=== PATIENT | male | born 1935 | race Caucasian/White ===

== ENCOUNTER → 2016-05-30 | Outpatient (CLI) | payer OTHER, MEDICARE ==
[~2016-05-30] MED LIST: ACET500C6 PO; ASCA500 PO; ASCO100061 PO; ASPI81TA28 PO; BMX1 PO; BUME1TAB PO; CALC600T9 PO; CLON0.5T3 PO; DIPH1TAB PO; DIPH25CA PO; DOCU-94 PO; FRS/40 PO; GADAVIST IV PRN; INSUINJ8 SQ; KETO0.5S33 OPR; LEVO75TA36 PO; LEVO75TA5 PO; LOSA1TAB PO; LUTE20TA PO; METO50TA16 PO; MULT-506 PO; NVLNI SQ; PANT40TA PO; POTA10CA28 PO; POTA20TA16 PO; SIMV40TA2 PO; SIMV80TA2 PO; SPR25 PO; SPRIN/30 INH; SYMIN160 INH; VNTHFA/IN INH
--- NOTE | 2016-05-30 14:05 | DIAGNOSTIC IMAGING REPORT ---
ULTRASOUND OF THE CAROTID ARTERIES CLINICAL HISTORY: Blurry vision. Disequilibrium. COMPARISON STUDY: No priors. TECHNIQUE: Real-time, grayscale, and color Doppler sonography of the carotid arteries is performed. Images are reviewed in the transverse and longitudinal planes. FINDINGS: Blood pressure in the right arm measures 153/71 and blood pressure in the left arm measures 148/70. The carotid arteries are patent bilaterally and demonstrate antegrade flow. There is mild to moderate echogenic shadowing atherosclerotic plaque seen in the carotid bulbs bilaterally, left greater than right. Normal doppler arterial waveforms are seen throughout. Velocity measurements are listed below. Common carotid peak systolic velocity (cm/sec): RIGHT: 87 LEFT: 68 ICA proximal peak systolic velocity (cm/sec): RIGHT: 98 LEFT: 159 ICA mid peak systolic velocity (cm/sec): RIGHT: 74 LEFT: 83 ICA distal peak systolic velocity (cm/sec): RIGHT: 61 LEFT: 88 ICA/CC peak systolic ratio: RIGHT: 1.1 LEFT: 2.3 Antegrade flow was shown in the vertebral arteries. The external carotid arteries are patent. IMPRESSION: 1. 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 2. There is no sonographic evidence of hemodynamically significant stenosis in the right carotid arterial system. 3. Antegrade flow is shown in the vertebral arteries. Electronically signed by: Antonio Benjamin M.D. 05/30/2016 2:03 PM
--- NOTE | 2016-05-30 15:21 | DIAGNOSTIC IMAGING REPORT ---
MRI OF THE BRAIN WITHOUT AND WITH IV CONTRAST CLINICAL HISTORY: Blurred vision. Dysequilibrium. COMPARISON STUDY: Head CT December 04, 2013. TECHNIQUE: Utilizing a 1.5 Lelo magnet and dedicated coil, multiplanar, multiecho imaging of the brain was performed pre and postcontrast administration. IV administration of 10 mL of Gadavist contrast was uneventful. FINDINGS: There are no areas of restricted diffusion. This exam is mildly compromised by artifact although is diagnostic. No acute intracranial hemorrhage, midline shift or mass effect is present. Ventricular system is stable. The basilar cisterns are patent. There are no extra axial collections. Flow-voids for the major intracranial vessels are present. There are no intracranial masses or areas of pathologic enhancement. Calvarial signal is maintained. Mild white matter T2 hyperintensity suggests small vessel disease. The orbits and sinuses are unremarkable. IMPRESSION: 1. No acute intracranial findings. 2. No intracranial masses or pathologic enhancement. 3. Study mildly compromised by artifact. 4. Mild small vessel disease. Electronically signed by: Colin Cannon M.D. 05/30/2016 3:19 PM
== END | disposition home or self-care (01) ==
LOC: C.ULTR 12:57
PROVIDERS: ATTEND Internal Medicine
DX: H53.8 Other visual disturbances (principal); R42 Dizziness and giddiness; I65.22 Occlusion and stenosis of left carotid artery

== ENCOUNTER → 2016-09-12 | Day surgery (SDC) | payer OTHER, MEDICARE ==
[2016-09-02 07:56] VITALS: Ht 172.7 cm; Wt 100.0 kg
[~2016-09-12] VITALS: Ht 172.7 cm; Wt 100.0 kg
[~2016-09-12] MED LIST changes: -ACET500C6 PO; +ACETAMINOPHEN 325 MG TAB PO PRN; +AMVISC PLUS 0.8ML SYRINGE INT OCU ONE; +ATROPINE SULFATE 0.1 MG/ML 5ML SYR IV PRN; +BRIMONIDINE TART 0.2% OP SOLN PER DROP CHARGE ONE; +BSS FLUSH ONE; +DEXTROSE 50% 50 ML SYR IV ONE; +DEXTROSE 50% 50 ML SYR ONE; -DIPH1TAB PO; +DIPH1TAB87 PO; -DIPH25CA PO; +ENDOCOAT 0.85ML SYRINGE INT OCU ONE; +EpHEDrine SULFATE INJ 50 MG/ML AMP IV PRN; +EpINEphrine INJ 1MG/ML AMP 1 MG/ML AMP ONE; -FRS/40 PO; -GADAVIST IV PRN; +LACTATED RINGER'S 1000ML 500 ML IV SCH; -LEVO75TA36 PO; +LIDOCAINE 4% OP SOLN DROP CHARGE ONE; +LIDOCAINE 4% OP SOLN DROP CHARGE OPR SCH; +LIDOCAINE HCL 1% MPF 2 ML VIAL ONE; +MIDAZOLAM HCL 1 MG/ML 2ML VIAL ONE; +MOXIFLOXACIN OPH SOLN PER DROP CHARGE ONE; +ONDANSETRON INJ 2 MG/ML 2 ML VIAL IV PRN; -POTA10CA28 PO; +POVIDONE-IODINE OP SOLN 30 ML BTL ONE; +PROPARACAINE 0.5% OP SOLN PER DROP CHARGE OPR SCH; -SIMV80TA2 PO; +TOBRAMYCIN/DEXAMETHASONE OPH OINT PER APPLN CHARGE ONE; +VISCOAT 0.5ML SYRINGE INT OCU ONE
[2016-09-12] MEDS: PHENYLEPHRINE HCL 2.5% OP SOLN PER DROP CHARGE OPR SCH ×2 (06:31→06:36)
[2016-09-12] MEDS: TROPICAMIDE 1% OP SOLN PER DROP CHARGE OPR SCH ×2 (06:32→06:37)
[2016-09-12] MEDS: CYCLOPENTOLATE HCL 1% OP SOLN PER DROP CHARGE OPR SCH ×2 (06:33→06:38)
[2016-09-12] MEDS: KETOROLAC 0.5% OP SOLN PER DROP CHARGE OPR SCH ×2 (06:34→06:39)
[2016-09-12] MEDS: MOXIFLOXACIN OPH SOLN PER DROP CHARGE OPR SCH ×2 (06:35→06:44)
--- NOTE | 2016-09-12 06:55 | History & Physical Bridge - SC ---
H&P Re-Evaluation Bridge Note: I have examined the patient, reviewed the History & Physical and in the interval since the performance of the History & Physical I have noted the following changes of clinical significance: No changes noted
[2016-09-12 07:27] VITALS: TEMP 36.3
--- NOTE | 2016-09-12 07:27 | Discharge Instructions-SurgCtr ---
Discharge Instructions Date of Service Sep 12, 2016. Visit Reason for Visit: Cataract Right Eye Discharge Discharge Diagnosis / Problem: cataract right eye Discharge Goals Goal(s): Improve function Activity Recommendations Activity Limitations: per Instructions/Follow-up section Lifting Limitations: no more than 5 pounds Anesthesia . Post Anesthesia Instructions: If you have had General Anesthesia or IV Sedation: * Do not drive today. * Resume driving when surgeon permits. * Do not make important decisions or sign legal documents today. * Call surgeon for: 1. Temperature elevations greater than 101 degrees F. 2. Uncontrollable pain. 3. Excessive bleeding. 4. Persistent nausea and vomiting. 5. Medication intolerance (nausea, vomiting or rash). * For nausea and vomiting use only clear liquids such as: tea, soda, bouillon until nausea subsides, then gradually increase diet as tolerated. * If you have any concerns or questions, call your surgeon's office. If physician is unavailable and it is an emergency, call 911 or go to the nearest emergency room. . Instructions / Follow-Up Instructions / Follow-Up ACTIVITY RECOMMENDATIONS: * Light activities * You may walk outside, read, watch television. * Mild irritation and blurred vision are common for the first few days, redness around the white part of the eye is common. MEDICATIONS: Resume previous medications unless instructed otherwise by your surgeon. Eye drops (today and tomorrow): Vigamox - one drop in operative eye every 2 hours while awake Prednisolone 1% - one drop in operative eye every 2 hours while awake Ketorolac - one drop in operative eye every 2 hours while awake SPECIAL CARE INSTRUCTIONS: * If any problems or concerns, please call Dr. Sparks's office at . * Keep plastic shield taped over eye to sleep at night. * Keep plastic shield taped over eye except to administer eye drops. * Keep plastic shield on until office visit the following day. FOLLOW UP VISIT: Follow-up with Dr. Sparks in the [place] office as scheduled. If not already scheduled, please call the office at . Diet Recommendations Home Diet: resume previous diet Procedures Procedures Performed: Right Cataract Phacoemulsification With Intraocular Lens Implant Pending Studies Studies pending at discharge: no Medical Emergencies . Who to Call and When: Medical Emergencies: If at any time you feel your situation is an emergency, please call 911 immediately. . Non-Emergent Contact Non-Emergency issues call your: Photo Studio Assistant . . "Provider Documentation" section prepared by Timmy Sparks.
--- NOTE | 2016-09-12 07:27 | [facility] Post Operative Brief Note ---
Immediate Operative Summary Operative Date Sep 12, 2016. Pre-Operative Diagnosis Cataract right eye Post-Operative Diagnosis same Procedure(s) Performed Right Cataract Phacoemulsification With Intraocular Lens Implant Surgeon Dr Sparks Roving Sizer Surgeon(s) 0 Estimated Blood Loss 0 Findings cataract right eye Specimens 0 Complication(s) None Disposition Recovery Room / PACU
[2016-09-12 08:00] VITALS: BP 151/77; PULSE 45; O2SAT 96
--- NOTE | 2016-09-12 08:03 | Anesthesia Progress Nt - [facility] ---
Anesthesia Post Op Note Date & Time Sep 12, 2016 at 08:02 Vital Signs Pain Intensity: 0 Vital Signs Past 12 Hours Date Time Temp Pulse Resp B/P Pulse Ox O2 Delivery O2 Flow Rate FiO2 09/12/16 08:00 45 20 151/77 96 Room Air 09/12/16 07:27 36.3 51 16 185/71 96 Room Air 09/12/16 06:30 36.4 50 18 179/58 96 Room Air Notes Mental Status: alert / awake / arousable, participated in evaluation Pt Amnestic to Procedure: Yes Nausea / Vomiting: adequately controlled Pain: adequately controlled Airway Patency, RR, SpO2: stable & adequate BP & HR: stable & adequate Hydration State: stable & adequate Anesthetic Complications: no major complications apparent
--- NOTE | 2016-09-12 08:59 | OPERATIVE REPORT ---
DATE OF OPERATION: 09/12/2016 PREOPERATIVE DIAGNOSIS: Cataract, right eye. POSTOPERATIVE DIAGNOSIS: Cataract, right eye. PROCEDURE: Phacoemulsification cataract extraction with intraocular lens placement, right eye. SURGEON: Dr. Sparks. COMPLICATIONS: None. ESTIMATED BLOOD LOSS: None. ANESTHESIA: Topical with sedation. DESCRIPTION OF PROCEDURE: After informed consent was obtained in the holding area the patient was wheeled back to the Operating Room where cardiac monitoring leads and oxygen by nasal cannula was administered by Anesthesia. Gentle IV sedation was given, and the patient's right eye was prepped and draped in usual sterile fashion. A wire lid speculum was placed into the right eye and the operating microscope was swung into position. Using 0.12 forceps and a Supersharp blade a paracentesis port was made 3 o'clock hours away from the 9 o'clock position of patient's right eye. 1% non-preserved Lidocaine was then injected into the anterior chamber for anesthesia. A 2.2 mm keratotome blade was then used to make a shelved clear corneal incision at the 9 o'clock position of his right eye. Amvisc was injected into the anterior chamber and a cystotome and Utrata forceps were used to perform a curvilinear capsulorrhexis. BSS on a hydrodissection cannula was used to hydrodissect the lens nucleus away from the capsular bag. The phacoemulsification handpiece was then used in a stop and chop fashion to remove the lens nucleus. The irrigation and aspiration handpiece was then used to remove the residual cortical material. Amvisc was injected into the capsular bag and anterior chamber and a Bausch \T\ Lomb MX60 21.5 Diopter intraocular lens was injected into the capsular bag. Irrigation and aspiration handpiece was used to remove the residual viscoelastic material. The wounds were hydrated and noted to be watertight. The wire lid speculum was removed from the eye. Vigamox, Brimonidine, and TobraDex ointment were placed on the eye and it was shielded. It should be noted that EndoCoat was used during the case to protect the cornea endothelium. DISPOSITION: The patient tolerated the procedure well and was wheeled to the post anesthesia care unit in stable condition. I attest to the content of the Intraoperative Record and any orders documented therein. Any exceptions are noted below. I attest to the content of the Intraoperative Record and any orders documented therein. Any exceptio ns are noted below.
== END | disposition home or self-care (01) ==
LOC: X.SURG 06:05
PROVIDERS: ATTEND Ophthalmology
DX: H26.9 Unspecified cataract (principal); I10 Essential (primary) hypertension; E11.9 Type 2 diabetes mellitus without complications; J45.909 Unspecified asthma, uncomplicated; Z68.34 Body mass index [BMI] 34.0-34.9, adult; Z95.1 Presence of aortocoronary bypass graft; I25.10 Atherosclerotic heart disease of native coronary artery without angina pectoris; Z96.659 Presence of unspecified artificial knee joint; Z90.89 Acquired absence of other organs; Z87.891 Personal history of nicotine dependence; I48.91 Unspecified atrial fibrillation; Z79.4 Long term (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

== ENCOUNTER → 2016-10-10 | Day surgery (SDC) | payer OTHER, MEDICARE ==
[2016-09-27 13:48] VITALS: Ht 172.7 cm; Wt 100.0 kg
[~2016-10-10] VITALS: Ht 172.7 cm; Wt 100.0 kg
[~2016-10-10] MED LIST changes: +500ML BSS 0.3ML EPI 1:1000PF IRRIG ONE; -DEXTROSE 50% 50 ML SYR IV ONE; -DEXTROSE 50% 50 ML SYR ONE; -EpHEDrine SULFATE INJ 50 MG/ML AMP IV PRN; +LIDOCAINE 4% OP SOLN DROP CHARGE OPL SCH; -LIDOCAINE 4% OP SOLN DROP CHARGE OPR SCH; -ONDANSETRON INJ 2 MG/ML 2 ML VIAL IV PRN; +PROPARACAINE 0.5% OP SOLN PER DROP CHARGE OPL SCH; -PROPARACAINE 0.5% OP SOLN PER DROP CHARGE OPR SCH; -VISCOAT 0.5ML SYRINGE INT OCU ONE
[2016-10-10] MEDS: PHENYLEPHRINE HCL 2.5% OP SOLN PER DROP CHARGE OPL SCH ×2 (08:46→08:53)
[2016-10-10] MEDS: TROPICAMIDE 1% OP SOLN PER DROP CHARGE OPL SCH ×2 (08:47→08:54)
[2016-10-10] MEDS: CYCLOPENTOLATE HCL 1% OP SOLN PER DROP CHARGE OPL SCH ×2 (08:48→08:55)
[2016-10-10] MEDS: KETOROLAC 0.5% OP SOLN PER DROP CHARGE OPL SCH ×2 (08:49→08:56)
[2016-10-10] MEDS: MOXIFLOXACIN OPH SOLN PER DROP CHARGE OPL SCH ×2 (08:51→09:04)
--- NOTE | 2016-10-10 10:06 | Discharge Instructions-SurgCtr ---
Discharge Instructions Date of Service October 10, 2016. Visit Reason for Visit: Cataract Left Eye Discharge Discharge Diagnosis / Problem: cataract left eye Discharge Goals Goal(s): Improve function Activity Recommendations Activity Limitations: per Instructions/Follow-up section Lifting Limitations: no more than 5 pounds Anesthesia . Post Anesthesia Instructions: If you have had General Anesthesia or IV Sedation: * Do not drive today. * Resume driving when surgeon permits. * Do not make important decisions or sign legal documents today. * Call surgeon for: 1. Temperature elevations greater than 101 degrees F. 2. Uncontrollable pain. 3. Excessive bleeding. 4. Persistent nausea and vomiting. 5. Medication intolerance (nausea, vomiting or rash). * For nausea and vomiting use only clear liquids such as: tea, soda, bouillon until nausea subsides, then gradually increase diet as tolerated. * If you have any concerns or questions, call your surgeon's office. If physician is unavailable and it is an emergency, call 911 or go to the nearest emergency room. . Instructions / Follow-Up Instructions / Follow-Up ACTIVITY RECOMMENDATIONS: * Light activities * You may walk outside, read, watch television. * Mild irritation and blurred vision are common for the first few days, redness around the white part of the eye is common. MEDICATIONS: Resume previous medications unless instructed otherwise by your surgeon. Eye drops (today and tomorrow): Vigamox - one drop in operative eye every 2 hours while awake Prednisolone 1% - one drop in operative eye every 2 hours while awake Artificial Tears - one drop operative eye 6 times daily SPECIAL CARE INSTRUCTIONS: * If any problems or concerns, please call Dr. Sparks's office at . * Keep plastic shield taped over eye to sleep at night. * Keep plastic shield taped over eye except to administer eye drops. * Keep plastic shield on until office visit the following day. FOLLOW UP VISIT: Follow-up with Dr. Sparks in the [place] office as scheduled. If not already scheduled, please call the office at . Diet Recommendations Home Diet: resume previous diet Procedures Procedures Performed: Left Cataract Phacoemulsification With Intraocular Lens Implant Pending Studies Studies pending at discharge: no Medical Emergencies . Who to Call and When: Medical Emergencies: If at any time you feel your situation is an emergency, please call 911 immediately. . Non-Emergent Contact Non-Emergency issues call your: Compliance Review Officer . . "Provider Documentation" section prepared by Timmy Sparks. .
--- NOTE | 2016-10-10 10:07 | [facility] Post Operative Brief Note ---
Immediate Operative Summary Operative Date October 10, 2016. Pre-Operative Diagnosis Left Eye Cataract Post-Operative Diagnosis Same Procedure(s) Performed Left Cataract Phacoemulsification With Intraocular Lens Implant Surgeon Dr Sparks Pharmacy Service Associate Surgeon(s) None Estimated Blood Loss 0ml Findings cataract left eye Specimens None Complication(s) None Disposition Recovery Room / PACU
--- NOTE | 2016-10-10 10:21 | OPERATIVE REPORT ---
DATE OF OPERATION: 10/10/2016 PREOPERATIVE DIAGNOSIS: Cataract, left eye. POSTOPERATIVE DIAGNOSIS: Cataract, left eye. PROCEDURE: Phacoemulsification cataract extraction with intraocular lens placement, left eye. SURGEON: Dr. Sparks. COMPLICATIONS: None. ESTIMATED BLOOD LOSS: None. ANESTHESIA: Topical with sedation. OPERATION AND FINDINGS: After informed consent was obtained in the holding area the patient was wheeled back to the Operating Room where cardiac monitoring leads and oxygen by nasal cannula was administered by Anesthesia. Gentle IV sedation was given, and the patient's left eye was prepped and draped in usual sterile fashion. A wire lid speculum was placed into the left eye and the operating microscope was swung into position. Using 0.12 forceps and a Supersharp blade a paracentesis port was made 3 o'clock hours away from the 3 o'clock position of patient's left eye. 1% non-preserved Lidocaine was then injected into the anterior chamber for anesthesia. A 2.2 mm keratotome blade was then used to make a shelved clear corneal incision at the 3 o'clock position of his left eye. Amvisc was injected into the anterior chamber and a cystotome and Utrata forceps were used to perform a curvilinear capsulorrhexis. BSS on a hydrodissection cannula was used to hydrodissect the lens nucleus away from the capsular bag. The phacoemulsification handpiece was then used in a stop and chop fashion to remove the lens nucleus. The irrigation and aspiration handpiece was then used to remove the residual cortical material. Amvisc was injected into the capsular bag and anterior chamber and a Bausch \T\ Lomb MX60, 23.0 Diopter intraocular lens was injected into the capsular bag. Irrigation and aspiration handpiece was used to remove the residual viscoelastic material. The wounds were hydrated and noted to be watertight. The wire lid speculum was removed from the eye. Vigamox, Brimonidine, and TobraDex ointment were placed on the eye and it was shielded. It should be noted that EndoCoat was used throughout the case to protect the cornea endothelium. DISPOSITION: The patient tolerated the procedure well and was wheeled to the post anesthesia care unit in stable condition. I attest to the content of the Intraoperative Record and any orders documented therein. Any exceptions are noted below. I attest to the content of the Intraoperative Record and any orders documented therein. Any exceptio ns are noted below.
--- NOTE | 2016-10-10 10:22 | Anesthesia Progress Nt - [facility] ---
Anesthesia Post Op Note Date & Time October 10, 2016 at 10:22 Vital Signs Pain Intensity: 0 Vital Signs Past 12 Hours Date Time Temp Pulse Resp B/P Pulse Ox O2 Delivery O2 Flow Rate FiO2 10/10/16 10:06 36.0 48 16 173/78 99 Room Air 10/10/16 08:34 36.5 47 20 182/82 98 Room Air Notes Mental Status: alert / awake / arousable, participated in evaluation Pt Amnestic to Procedure: Yes Nausea / Vomiting: adequately controlled Pain: adequately controlled Airway Patency, RR, SpO2: stable & adequate BP & HR: stable & adequate Hydration State: stable & adequate Anesthetic Complications: no major complications apparent
[2016-10-10 10:30] VITALS: BP 182/67; PULSE 44; TEMP 36.4; O2SAT 98
== END | disposition home or self-care (01) ==
LOC: X.SURG 08:04
PROVIDERS: ATTEND Ophthalmology
DX: H25.12 Age-related nuclear cataract, left eye (principal); H35.3220 Exudative age-related macular degeneration, left eye, stage unspecified; I10 Essential (primary) hypertension; E10.9 Type 1 diabetes mellitus without complications; Z96.659 Presence of unspecified artificial knee joint; Z95.1 Presence of aortocoronary bypass graft; Z90.49 Acquired absence of other specified parts of digestive tract; Z79.82 Long term (current) use of aspirin

== ENCOUNTER 2016-11-22 19:24 | Emergency (ER) | payer OTHER, MEDICARE ==
[~2016-11-22] VITALS: Ht 172.7 cm; Wt 99.6 kg
[~2016-11-22 19:24] MED LIST changes: -500ML BSS 0.3ML EPI 1:1000PF IRRIG ONE; -ACETAMINOPHEN 325 MG TAB PO PRN; -AMVISC PLUS 0.8ML SYRINGE INT OCU ONE; -ASCO100061 PO; -ATROPINE SULFATE 0.1 MG/ML 5ML SYR IV PRN; -BMX1 PO; -BRIMONIDINE TART 0.2% OP SOLN PER DROP CHARGE ONE; -BSS FLUSH ONE; -ENDOCOAT 0.85ML SYRINGE INT OCU ONE; -EpINEphrine INJ 1MG/ML AMP 1 MG/ML AMP ONE; -LACTATED RINGER'S 1000ML 500 ML IV SCH; -LIDOCAINE 4% OP SOLN DROP CHARGE ONE; -LIDOCAINE 4% OP SOLN DROP CHARGE OPL SCH; -LIDOCAINE HCL 1% MPF 2 ML VIAL ONE; -LOSA1TAB PO; -MIDAZOLAM HCL 1 MG/ML 2ML VIAL ONE; -MOXIFLOXACIN OPH SOLN PER DROP CHARGE ONE; -NVLNI SQ; -POVIDONE-IODINE OP SOLN 30 ML BTL ONE; -PROPARACAINE 0.5% OP SOLN PER DROP CHARGE OPL SCH; -SPR25 PO; -TOBRAMYCIN/DEXAMETHASONE OPH OINT PER APPLN CHARGE ONE
[2016-11-22 19:32] VITALS: TEMP 36.5; Ht 172.7 cm; Wt 99.6 kg
[2016-11-22] MEDS ORDERED: FUROSEMIDE 40 MG/4 ML VIAL IV STA (20:10)
[2016-11-22 20:15] LABS: BASO % 0.6 %; BASO ABS # 0.04 K/uL (0-0.2); COMPLETE YES; EOS % 3.4 %; HEMATOCRIT 37.5 % (42-52); IG% 0.6 %; LYMPH % 29.9 %; LYMPH ABS # 1.87 K/uL (1.2-3.4); MEAN CELL VOLUME 89.9 fL (80-100); MEAN CORPUSCULAR HEMOGLOBIN 31.2 pg (25-34); MEAN CORPUSCULAR HGB CONC 34.7 g/dl (32-36); MEAN PLATELET VOLUME 9.5 fL (7.4-10.4); MONO % 6.9 %; NEUT % 58.6 %; PLATELET COUNT 128 K/uL (130-400); RED BLOOD COUNT 4.17 M/uL (4.7-6.1); WHITE BLOOD COUNT 6.25 K/uL (4.8-10.8)
--- NOTE | 2016-11-22 20:27 | DIAGNOSTIC IMAGING REPORT ---
CHEST ONE VIEW PORTABLE CLINICAL HISTORY: Evaluate Fever/Sepsis dyspnea COMPARISON STUDY: 10/07/2015 FINDINGS: Prior median sternotomy. Heart top normal in size. Lungs are clear. Diaphragms smooth. IMPRESSION: No acute process. Electronically signed by: Jared Bhardwaj M.D. 11/22/2016 8:26 PM Dictated Date/Time: 11/22/2016 8:26 PM
[2016-11-22 20:33] LABS: ALT/SGPT 25 U/L (12-78); AST/SGOT 19 U/L (15-37); BLOOD UREA NITROGEN 16 mg/dl (7-18); BUN/CREATININE RATIO 11.9 (10-20); CALCIUM 8.7 mg/dl (8.5-10.1); CARBON DIOXIDE 25 mmol/L (21-32); CHLORIDE 108 mmol/L (98-107); GLUCOSE 182 mg/dl (70-99); SODIUM 141 mmol/L (136-145)
[2016-11-22 20:41] LABS: ALKALINE PHOSPHATASE 67 U/L (45-117)
[2016-11-22 20:43] LABS: PARTIAL THROMBOPLASTIN RATIO 0.9; PROTHROMBIN TIME (PATIENT) 10.7 SECONDS (9.0-12.0)
[2016-11-22] MEDS ORDERED: ASCO100061 PO (20:58)
[2016-11-22] MEDS ORDERED: NVLNI SQ ×2 (20:58)
[2016-11-22] MEDS ORDERED: HydrALAZINE HCL 20 MG/ML VIAL IV. STA (21:45)
--- NOTE | 2016-11-22 22:24 | EMERGENCY ROOM VISIT NOTE ---
History Report prepared by Ryan: Jose Keller Under the Supervision of: Dr. Je Diaz D.O. First contact with patient: 19:44 Chief Complaint: HYPERTENSION Stated Complaint: ELEVATED BP, FLUCUATING, SOB History of Present Illness The patient is a 81 year old male who presents to the Emergency Room with complaints of hypertension that occurred 2 hours ago. At this time, the patient was feeling short of breath, dizzy, and tired. His came home from work and took his blood pressure. At 1800, it was 186/45. 20 minutes later, it was 195/ 73. 20 minutes after that, it was 175/70. They decided to come to the ER after this. The patient has an extensive past medical history. It includes multiple angioplasty procedures, a triple bypass surgery, and respiratory issues. Over the past couple of years, he has short of breath with exertion. He has had prior clots as well, that the states the symptoms are similar to those today. They note that he gained 15 pounds this year and there is left lower extremity edema as well. He denies any chest pain. Source of History: patient Onset: 2 hours ago Position: other (Global) Symptom Intensity: 195/73 Quality: other (HTN) Timing: waxes/wanes Modifying Factors (Worsening): exertion Associated Symptoms: + SOB, + fatigue, No chest pain Note: He is experiencing dizziness as well. Review of Systems See HPI for pertinent positives & negatives. A total of 10 systems reviewed and were otherwise negative. 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 Family History Heart disease Social History Smoking Status: Never Smoker Smokeless Tobacco Use: No Alcohol Use: none Marital Status: Housing Status: lives with significant other Occupation Status: retired Current/Historical Medications Scheduled Ascorbic Acid (Ascorbic Acid), 1,000 MG PO BID Aspirin (Aspirin Ec), 81 MG PO BID Budesonide/Formoterol Fumarate (Symbicort 160/4.5 Inhaler ), 2 PUFFS INH BID Bumetanide (Bumex), 2 MG PO HS Bumetanide (Bumex), 1 MG PO QAM Calcium Carbonate-Vitamin D (Calcium + D), 600 UNITS PO BID Clonazepam (Klonopin), 0.5 MG PO QAM Clonazepam (Klonopin), 2 TABS PO HS Diphenhydramine Hcl (Benadryl Allergy), 2 CAP PO BID Docusate Sodium (Colace), 2 CAP PO BID Insulin Human NPH (Novolin N), 55 UNITS SQ QAM Insulin Human NPH (Novolin N), 50 UNITS SQ QPM Levothyroxine Sodium (Levothyroxine Sodium), 1 TAB PO QAM Lutein (Lutein), 1 TAB PO QAM Metoprolol Tartrate (Lopressor) (Lopressor), 75 MG PO BID Multivitamin (Multivitamin), 1 TAB PO QAM Pantoprazole (Protonix), 40 MG PO QAM Potassium Ext Rel (Klor-Con), 20 MEQ PO HS Potassium Ext Rel (Klor-Con), 10 MEQ PO QAM Simvastatin (Zocor), 0.5 TAB PO HS Tiotropium [place] (Spiriva Handihaler), 1 CAP INH QAM Scheduled PRN Albuterol Hfa (Ventolin Hfa), 2-4 PUFFS INH Q6H PRN for Shortness of Breath Allergies Coded Allergies: Ropinirole (Verified Adverse Reaction, Intermediate, CHANGE IN MENTAL STATUS, 11/22/16) Physical Exam Vital Signs Date Time Temp Pulse Resp B/P (MAP) Pulse Ox O2 Delivery O2 Flow Rate FiO2 11/22/16 22:04 46 20 181/75 96 Room Air 11/22/16 21:31 48 18 200/73 96 Room Air 11/22/16 20:57 44 20 164/91 96 Room Air 11/22/16 20:46 47 11/22/16 20:08 Room Air 11/22/16 20:07 54 18 229/82 96 Room Air 11/22/16 19:32 36.5 51 20 189/70 97 Room Air Physical Exam CONSTITUTIONAL/VITAL SIGNS: Reviewed / noted above. GENERAL: Non-toxic in appearance. INTEGUMENTARY: Warm, dry, and Berger. HEAD: Normocephalic. EYES: without scleral icterus or trauma. ENT/OROPHARYNX: clear and moist. LYMPHADENOPATHY/NECK: Is supple without lymphadenopathy or meningismus. RESPIRATORY: Lungs clear and equal. CARDIOVASCULAR: Regular rate and rhythm. GI/ABDOMEN: Soft and nontender. No organomegaly or pulsatile mass. No rebound or guarding. Normal bowel sounds. EXTREMITIES: Bilateral pedal edema. BACK: No CVA tenderness. NEUROLOGICAL: Intact without focal deficits. PSYCHIATRIC: normal affect. MUSCULOSKELETAL: Normally developed with good muscle tone. Medical Decision & Procedures ER Provider Diagnostic Interpretation: Radiology results as stated below per my review and radiologist interpretation: CHEST ONE VIEW PORTABLE CLINICAL HISTORY: Evaluate Fever/Sepsis dyspnea COMPARISON STUDY: 10/07/2015 FINDINGS: Prior median sternotomy. Heart top normal in size. Lungs are clear. Diaphragms smooth. IMPRESSION: No acute process. Electronically signed by: Jared Bhardwaj M.D. 11/22/2016 8:26 PM Dictated Date/Time: 11/22/2016 8:26 PM Laboratory Results 11/22/16 20:02 Red Blood Count 4.17, Mean Corpuscular Volume 89.9, Mean Corpuscular Hemoglobin 31.2, Mean Corpuscular Hemoglobin Concent 34.7, Mean Platelet Volume 9.5, Neutrophils (%) (Auto) 58.6, Lymphocytes (%) (Auto) 29.9, Monocytes (%) (Auto) 6.9, Eosinophils (%) (Auto) 3.4, Basophils (%) (Auto) 0.6, Neutrophils # (Auto) 3.66, Lymphocytes # (Auto) 1.87, Monocytes # (Auto) 0.43, Eosinophils # (Auto) 0.21, Basophils # (Auto) 0.04 11/22/16 20:02 Test 11/22/16 20:02 11/22/16 20:25 White Blood Count 6.25 K/uL (4.8-10.8) Red Blood Count 4.17 M/uL (4.7-6.1) Hemoglobin 13.0 g/dL (14.0-18.0) Hematocrit 37.5 % (42-52) Mean Corpuscular Volume 89.9 fL (80-100) Mean Corpuscular Hemoglobin 31.2 pg (25-34) Mean Corpuscular Hemoglobin Concent 34.7 g/dl (32-36) Platelet Count 128 K/uL (130-400) Mean Platelet Volume 9.5 fL (7.4-10.4) Neutrophils (%) (Auto) 58.6 % Lymphocytes (%) (Auto) 29.9 % Monocytes (%) (Auto) 6.9 % Eosinophils (%) (Auto) 3.4 % Basophils (%) (Auto) 0.6 % Neutrophils # (Auto) 3.66 K/uL (1.4-6.5) Lymphocytes # (Auto) 1.87 K/uL (1.2-3.4) Monocytes # (Auto) 0.43 K/uL (0.11-0.59) Eosinophils # (Auto) 0.21 K/uL (0-0.5) Basophils # (Auto) 0.04 K/uL (0-0.2) RDW Standard Deviation 43.3 fL (36.4-46.3) RDW Coefficient of Variation 13.1 % (11.5-14.5) Immature Granulocyte % (Auto) 0.6 % Immature Granulocyte # (Auto) 0.04 K/uL (0.00-0.02) Anion Gap 8.0 mmol/L (3-11) Est Creatinine Clear Calc Drug Dose 51.0 ml/min Estimated GFR () 59.3 Estimated GFR (Non- 51.2 BUN/Creatinine Ratio 11.9 (10-20) Calcium Level 8.7 mg/dl (8.5-10.1) Total Bilirubin 0.3 mg/dl (0.2-1) Direct Bilirubin < 0.1 mg/dl (0-0.2) Aspartate Amino Transf (AST/SGOT) 19 U/L (15-37) Alanine Aminotransferase (ALT/SGPT) 25 U/L (12-78) Alkaline Phosphatase 67 U/L (45-117) Total Creatine Kinase 93 U/L (39-308) Creatine Kinase MB 2.8 ng/ml (0.5-3.6) Creatine Kinase MB Ratio 3.0 (0-3.0) Troponin I < 0.015 ng/ml (0-0.045) Total Protein 6.4 gm/dl (6.4-8.2) Albumin 3.5 gm/dl (3.4-5.0) Thyroid Stimulating Hormone (TSH) 3.840 uIu/ml (0.300-4.500) Prothrombin Time 10.7 SECONDS (9.0-12.0) Prothromb Time International Ratio 1.0 (0.9-1.1) Activated Partial Thromboplast Time 23.8 SECONDS (21.0-31.0) Partial Thromboplastin Ratio 0.9 Laboratory results as stated above per my review. Medications Administered Medications (Trade) Dose Ordered Sig/Jodie Route Start Time Stop Time Status Last Admin Dose Admin Furosemide (Lasix Inj) 40 mg NOW STAT IV 11/22/16 20:10 11/22/16 20:11 DC 11/22/16 20:23 40 MG Hydralazine HCl (HydrALAZINE INJ) 10 mg NOW STAT IV. 11/22/16 21:45 11/22/16 21:46 DC 11/22/16 21:53 10 MG ECG Indication: SOB/dyspnea Rate (beats per minute): 57 Rhythm: sinus bradycardia Findings: 1st degree AV block, RBBB Comparison ECG Date: 10 September 2014 Change: no significant change ED Course 1943: Previous medical records were reviewed. The patient was evaluated in room A10. A complete history and physical examination was performed. 2009: Ordered Lasix Inj 40 mg IV 2144: Ordered Hydralazine HCl 10 mg IV 2229: Ordered Norvasc Tab 5 mg PO 2239: On reevaluation, the patient is resting. I discussed the results and findings with the patient. He verbalized agreement of the treatment plan. He was discharged home. Medical Decision Differentials considered include acute myocardial infarction, acute coronary syndrome, myocarditis, pericarditis, pericardial effusions /tamponade, esophageal perforation, pulmonary embolism, pneumonia, pneumothorax, cardiomyopathy, congestive heart, anemia , COPD/asthma exacerbation. Medication Reconciliation: I attest that I have personally reviewed the patient' s current medication list. Blood pressure Screening: Patient was found to have an elevated blood pressure and was referred to their primary doctor for recheck and further treatment. This is a 81-year-old male who presents to the ED with chief complaint of exertional dyspnea as well as feeling tired a lot and having some shortness of breath at rest but is unusual for him. The patient was seen by a geomagnetician today and was told that his blood pressure was elevated. He states that he had a dizzy episode earlier today. He reports a history of three-vessel bypass in 2013. He feels like he is having similar symptoms to those prior to his CABG. He has increasing weight gain and increasing edema in his legs. The patient's initial blood pressure here was 189/70. An I saw him it was 229/82. He is in no acute distress. He has pedal edema on exam. His lung sounds were somewhat diminished. Twelve-lead EKG reveals a sinus bradycardia rate of 57 with a right bundle branch block, first-degree AV block. No acute injury. CBC and complete metabolic panel are normal. Troponin was negative. Chest x-ray did not show acute disease. The patient was treated with Lasix 40 mg IV. His blood pressure was persistently elevated. He was given hydralazine 10 mg IV as well. I spoke with Dr. Mattson who recommended treating the patient with amlodipine 5 mg by mouth. He states that he will see the patient tomorrow for recheck. Clinically the patient appears well. He is in no distress. There is no evidence of endorgan damage or congestive heart failure. Impression Primary Impression: Hypertension, accelerated Scribe Attestation The scribe's documentation has been prepared under my direction and personally reviewed by me in its entirety. I confirm that the note above accurately reflects all work, treatment, procedures, and medical decision making performed by me. Departure Information Dispostion Home / Self-Care Referrals John Norman M.D. (PCP) Forms HOME CARE DOCUMENTATION FORM, IMPORTANT VISIT INFORMATION, WORK / SCHOOL INSTRUCTIONS Patient Instructions My [facility] Additional Instructions Return to emergency department for new or worsening symptoms. Follow-up with your doctor tomorrow. Take your normal medications on time. Call the office in the morning for appointment. Follow-up with your doctor for further care and evaluation tomorrow. Return to the emergency department for worsening or new symptoms or any concerns. You have been examined and treated today on an emergency basis only. This is not a substitute for, or an effort to provide, complete comprehensive medical care. It is impossible to recognize and treat all injuries or illnesses in a single emergency department visit. It is therefore important that you follow up closely with your doctor. Call as soon as possible for an appointment.
[2016-11-22] MEDS ORDERED: AMLODIPINE BESYLATE 5 MG TAB PO ONE (22:30)
[2016-11-22 22:39] VITALS: BP 147/75; PULSE 47; O2SAT 96
[2016-12-27] MEDS ORDERED: SPR25 PO (08:18)
== END 2016-11-22 22:40 | disposition home or self-care (01) ==
LOC: C.EDB 19:25 → C.EDA 22:40
DX: I10 Essential (primary) hypertension (principal); R60.0 Localized edema; Z90.89 Acquired absence of other organs; J45.909 Unspecified asthma, uncomplicated; I25.10 Atherosclerotic heart disease of native coronary artery without angina pectoris; E10.9 Type 1 diabetes mellitus without complications; E78.00 Pure hypercholesterolemia, unspecified; Z87.442 Personal history of urinary calculi; Z87.01 Personal history of pneumonia (recurrent); Z95.1 Presence of aortocoronary bypass graft; Z98.61 Coronary angioplasty status; Z90.49 Acquired absence of other specified parts of digestive tract; Z96.659 Presence of unspecified artificial knee joint; Z98.890 Other specified postprocedural states; Z79.82 Long term (current) use of aspirin; Z79.899 Other long term (current) drug therapy

== ENCOUNTER → 2016-11-24 | Outpatient (CLI) | payer OTHER, MEDICARE ==
[~2016-11-24] MED LIST changes: -ASCA500 PO; +ASCO100061 PO; +DIPH1TAB PO; -DIPH1TAB87 PO; -INSUINJ8 SQ; -KETO0.5S33 OPR; +NVLNI SQ
--- NOTE | 2016-11-24 19:31 | ECHOCARDIOGRAM REPORT ---
*NOTICE TO RECEIVING LIBERTARIAN AGENCY This information is strictly Confidential and protected under [place] law. [place] law prohibits you from making any further disclosure of this information unless further disclosure is expressly permitted by the written consent of the person to whom it pertains or is authorized by law. A general authorization for the release of medical or other information is not sufficient for this purpose. Hospital accepts no responsibility if the information is made available to any other person, INCLUDING THE PATIENT. Interpretation Summary * Name: BIRAN NEWMAN Study Date: 11/24/2016 01:25 PM BP: 168/66 mmHg * Patient Location: [facility] HR: 56 * : 1935 (M/d/yyyy) Gender: Male Height: 68 in * Age: 81 yrs Ethnicity: CA Weight: 215 lb * Ordering Physician: HUSSEIN. KEO NUGENT * Performed By: Annemarie Hurtado * * Reason For Study: CHF, CAD * BSA: 2.1 m2 * -- Conclusions -- * 1. Normal left ventricular size and systolic function. EF 55-60%. No definite regional wall motion abnormalities. Moderate concentric left ventricular hypertrophy. Type 1 diastolic dysfunction. * 2. Normal right ventricular size with mildly reduced systolic function. * 3. Sclerotic aortic valve without significant stenosis. * 4. Technically difficult study, enhanced with IV Definity. * 5. No significant change from prior study on 10/16/2015. Procedure Details * A complete two-dimensional transthoracic echocardiogram was performed (2D, M-mode, Doppler and color flow Doppler). * A contrast injection of Definity was performed to improve assessment of LV function. * Contrast was injected into an intravenous site in the left arm. * One vial of Definity ultrasound contrast was diluted in normal saline to a total volume of 10 ml. A total of '3' ml of solution was administered during imaging. * Lot # [id number] of Definity utilized for procedure. * Expiration date 12/13. * The attending nurse who injected the contrast agent was ADAM BULLOCK RN. Left Ventricle * Normal left ventricular size and systolic function. EF 55-60%. No definite regional wall motion abnormalities. Moderate concentric left ventricular hypertrophy. Type 1 diastolic dysfunction. Right Ventricle * Normal right ventricular size with mildly reduced systolic function. * The right ventricular systolic function is reduced as assessed by tricuspid annular plane systolic excursion (TAPSE) (TAPSE <1.6 cm). Atria * The left atrium is borderline dilated. * Right atrial size is normal. * There is no evidence of atrial septal defect, but resolution does not allow assessment for a patent foramen ovale. Mitral Valve * There is mild mitral annular calcification. * There is no mitral valve stenosis. * Significant mitral regurgitation is absent. Tricuspid Valve * The tricuspid valve is not well visualized, but is grossly normal. * There is no tricuspid stenosis. * Significant tricuspid regurgitation is absent. Aortic Valve * Sclerotic aortic valve without significant stenosis. * No hemodynamically significant valvular aortic stenosis. * No aortic regurgitation is present. Pulmonic Valve * The pulmonary valve is inadequately visualized, but the Doppler data is adequate for interpretation. * There is no pulmonic valvular stenosis. * There is no significant pulmonary regurgitation. Great Vessels * The aortic root is normal size. Pericardium/Pleural * There is no pericardial effusion. Great Vessels * Normal inferior vena cava size and collapsability with sniff indicates a normal right atrial pressure of 3 mmHg MMode 2D Measurements and Calculations IVSd 1.5 cm IVSs 2.5 cm LVIDd 4.7 cm LVIDs 3.3 cm LVPWd 1.4 cm LVPWs 1.9 cm IVS/LVPW 1.1 FS 30.5 % EDV(Teich) 104.9 ml ESV(Teich) 44.1 ml EF(Teich) 57.9 % EDV(cubed) 107.1 ml ESV(cubed) 35.9 ml EF(cubed) 66.5 % % IVS thick 63.2 % % LVPW thick 40.2 % LV mass(C)d 285.3 grams LV mass(C)dI 135.4 grams/m\S\2 LV mass(C)s 355.0 grams LV mass(C)sI 168.4 grams/m\S\2 CO(Teich) 3.3 l/min CI(Teich) 1.6 l/min/m\S\2 SV(Teich) 60.8 ml SI(Teich) 28.8 ml/m\S\2 CO(cubed) 3.9 l/min CI(cubed) 1.9 l/min/m\S\2 SV(cubed) 71.2 ml SI(cubed) 33.8 ml/m\S\2 Ao root diam 3.4 cm Ao root area 9.1 cm\S\2 ACS 0.78 cm LA dimension 4.4 cm asc Aorta Diam 3.0 cm LA/Ao 1.3 LVOT diam 2.1 cm LVOT area 3.3 cm\S\2 LVAd ap4 32.4 cm\S\2 LVLd ap4 8.3 cm EDV(MOD-sp4) 103.0 ml LVAs ap4 19.1 cm\S\2 LVLs ap4 7.1 cm ESV(MOD-sp4) 44.8 ml EF(MOD-sp4) 56.5 % LVAd ap2 24.5 cm\S\2 LVLd ap2 7.2 cm EDV(MOD-sp2) 70.5 ml LVAs ap2 16.9 cm\S\2 LVLs ap2 7.4 cm ESV(MOD-sp2) 31.8 ml EF(MOD-sp2) 54.9 % CO(MOD-sp4) 3.2 l/min CI(MOD-sp4) 1.5 l/min/m\S\2 SV(MOD-sp4) 58.2 ml SI(MOD-sp4) 27.6 ml/m\S\2 CO(MOD-sp2) 2.1 l/min CI(MOD-sp2) 1.0 l/min/m\S\2 SV(MOD-sp2) 38.7 ml SI(MOD-sp2) 18.4 ml/m\S\2 Doppler Measurements and Calculations MV E max barbra 62.1 cm/sec MV A max barbra 78.6 cm/sec MV E/A 0.79 MV dec time 0.24 sec Ao V2 max 184.9 cm/sec Ao max PG 13.7 mmHg Ao max PG (full) 10.6 mmHg Ao V2 mean 120.2 cm/sec Ao mean PG 6.8 mmHg Ao mean PG (full) 5.6 mmHg Ao V2 VTI 34.7 cm RENETTA(I,A) 1.5 cm\S\2 RENETTA(I,D) 1.5 cm\S\2 RENETTA(V,A) 1.6 cm\S\2 RENETTA(V,D) 1.6 cm\S\2 LV V1 max PG 3.1 mmHg LV V1 mean PG 1.2 mmHg LV V1 max 87.3 cm/sec LV V1 mean 50.9 cm/sec LV V1 VTI 15.6 cm SV(Ao) 316.3 ml SI(Ao) 150.1 ml/m\S\2 SV(LVOT) 51.9 ml SI(LVOT) 24.6 ml/m\S\2 PA V2 max 84.4 cm/sec PA max PG 2.8 mmHg
== END | disposition home or self-care (01) ==
LOC: C.CPL 13:21
PROVIDERS: ATTEND Internal Medicine
DX: I50.9 Heart failure, unspecified (principal); I35.0 Nonrheumatic aortic (valve) stenosis; I25.10 Atherosclerotic heart disease of native coronary artery without angina pectoris

== ENCOUNTER → 2016-12-21 | Outpatient (CLI) | payer OTHER, MEDICARE ==
[~2016-12-21] MED LIST changes: +BMX1 PO; +LOSA1TAB PO; +REGADENOSON 0.4 MG/5 ML SYR ONE; +SPR25 PO
--- NOTE | 2016-12-21 15:51 | Myocardial Perfusion Study ---
Myocardial Perfusion Study Rpt Myocardial Perfusion Study Rpt Date of Service 12/21/2016 Myocardial Perfusion Study Rpt ONE DAY NUCLEAR MEDICINE LEXISCAN TECHNETIUM 99M MYOCARDIAL PERFUSION SCAN Indication: History of CAD, worsening exertional dyspnea Baseline ECG: Sinus rhythm, bradycardia with ventricular rate of 52, first- degree AV block, right bundle-branch block, left axis deviation, no significant ST abnormalities. Stress ECG: No Lexiscan induced ST changes. No arrhythmias. HR galen from 51 to 68 representing 48% MPHR. Technique: For the stress portion of the study 32.1 mCi of Technetium 99m Cardiolite IV was injected at 11:45 am on . 30 minutes following the injection, imaging of the heart was performed in multiple projections. For the rest portion of the study, 10.1 mCi of Technetium 99m Cardiolite was injected IV at 10:10 am. One hour following the injection, imaging of the hear was performed in the same projections. Findings: Rotating raw images were reviewed in detail. Potential sources of attenuation include minimal gut uptake impacting the inferior imaging border of the heart, some vertical motion on rest images, mild diaphragmatic attenuation. No significant extracardiac pathologic uptake. Short axis, vertical long axis and horizontal long axis images were reviewed in detail. No visual TID. Primarily fixed, moderate in size and severity, perfusion defect involving the basal to mid anterolateral and inferolateral segments, and small, mild mostly reversible defect involving the apical lateral and inferior guadarrama (SDS 3) Normal LV size. EDV 105 ml. Calculated EF 53%. Septal pardoxical motion consistent with post-operative state. Apical inferolateral hypokinesis. SUMMARY: 1. Mild reversible apical lateral and apical inferior perfusion defect suggestive of a small amount (SDS 3) OM distribution ischemia. 2. Primarily fixed basal to mid lateral wall defect with normal function suggesting likely artifact versus less likely prior lateral infarct 3. Normal LV size and function. LVEF 54% with abnormal septal motion and apical inferolateral mild hypokinesis. 4. Non-diagnostic stress ECG due to inability to reach target HR with Lexiscan.
== END | disposition home or self-care (01) ==
LOC: C.NUCL 09:03
PROVIDERS: ATTEND Internal Medicine Cardiovascular Disease
DX: I25.10 Atherosclerotic heart disease of native coronary artery without angina pectoris (principal); R06.09 Other forms of dyspnea

== ENCOUNTER 2016-12-23 10:50 | Inpatient (IN) | payer OTHER, MEDICARE ==
[~2016-12-23] VITALS: Ht 167.6 cm; Wt 91.9 kg
[~2016-12-23 10:50] MED LIST changes: -BMX1 PO; -LOSA1TAB PO; -REGADENOSON 0.4 MG/5 ML SYR ONE; -SPR25 PO
[2016-12-23] MEDS ORDERED: ACETAMINOPHEN 325 MG TAB PO PRN (11:15)
[2016-12-23] MEDS ORDERED: NITROGLYCERIN 0.4 MG SL PER TAB CHARGE SL PRN (11:15)
[2016-12-23 12:30] VITALS: Ht 167.6 cm; Wt 91.9 kg
[2016-12-23 12:40] VITALS: BP 137/74; PULSE 62; O2SAT 95
[2016-12-23] MEDS ORDERED: BUMETANIDE IV 2 MG in SYRINGE 0 ML IV ONE (12:45)
[2016-12-23 12:56] LABS: BASO % 0.4 %; BASO ABS # 0.02 K/uL (0-0.2); EOS % 3.3 %; HEMATOCRIT 36.3 % (42-52); IG% 0.4 %; LYMPH ABS # 1.22 K/uL (1.2-3.4); MEAN CELL VOLUME 90.5 fL (80-100); MEAN CORPUSCULAR HEMOGLOBIN 31.4 pg (25-34); MEAN PLATELET VOLUME 8.9 fL (7.4-10.4); MONO % 7.6 %; NEUT % 63.3 %; PLATELET COUNT 121 K/uL (130-400); RED BLOOD COUNT 4.01 M/uL (4.7-6.1); WHITE BLOOD COUNT 4.88 K/uL (4.8-10.8)
[2016-12-23] MEDS ORDERED: POTA20TA16 PO (13:02)
[2016-12-23] MEDS ORDERED: BMX1 PO (13:03)
[2016-12-23 13:06] LABS: COMPLETE YES; MEAN CORPUSCULAR HGB CONC 34.7 g/dl (32-36)
[2016-12-23] MEDS ORDERED: LOSA1TAB PO (13:09)
[2016-12-23] MEDS: INSULIN ASPART 100 UNITS/ML 3 ML PEN SC SCH ×3 (13:27→20:33)
[2016-12-23 13:43] LABS: ALB/GLOB RATIO 1.3 (0.9-2); ALKALINE PHOSPHATASE 65 U/L (45-117); ALT/SGPT 24 U/L (12-78); AST/SGOT 21 U/L (15-37); BLOOD UREA NITROGEN 24 mg/dl (7-18); BUN/CREATININE RATIO 15.8 (10-20); CALCIUM 8.5 mg/dl (8.5-10.1); CARBON DIOXIDE 29 mmol/L (21-32); CHLORIDE 108 mmol/L (98-107); CKMB/CK RATIO 1.9 (0-3.0); GLUCOSE 147 mg/dl (70-99); MAGNESIUM 2.1 mg/dl (1.8-2.4); POTASSIUM 4.1 mmol/L (3.5-5.1); SODIUM 143 mmol/L (136-145)
--- NOTE | 2016-12-23 14:02 | DIAGNOSTIC IMAGING REPORT ---
CHEST ONE VIEW PORTABLE CLINICAL HISTORY: 81 years-old Male presenting with CHF, CAD. TECHNIQUE: Portable upright AP view of the chest was obtained. COMPARISON: 11/22/2016. FINDINGS: Median sternotomy wires unchanged with breakage of the two most superior wires. Atherosclerosis of the aortic arch. Mild enlargement of the cardiac silhouette slightly decreased from prior. Lungs and pleural spaces clear. Osseous structures and upper abdomen normal. IMPRESSION: 1. No acute cardiopulmonary disease. Electronically signed by: Ayo Levy M.D. 12/23/2016 2:01 PM Dictated Date/Time: 12/23/2016 2:00 PM
[2016-12-23 15:08] LABS: PARTIAL THROMBOPLASTIN RATIO 0.9
[2016-12-23 15:11] VITALS: BP 190/82; PULSE 60; TEMP 36.5; O2SAT 97
[2016-12-23] MEDS: BUMETANIDE IV 2 MG in SYRINGE 0 ML IV SCH (17:23)
[2016-12-23 17:25] VITALS: BP 188/75; PULSE 63
[2016-12-23 17:37] LABS: URINE APPEARANCE CLEAR (CLEAR); URINE BILIRUBIN NEG (NEG); URINE COLOR YELLOW; URINE NITRITE NEG (NEG); URINE SPECIFIC GRAVITY 1.015 (1.000-1.030); UROBILINOGEN NEG (NEG)
[2016-12-23 17:43] LABS: MANUAL MICROSCOPIC REQUIRED? NO; REVIEW REQ? NO
[2016-12-23 17:47] LABS: CKMB/CK RATIO 1.7 (0-3.0)
--- NOTE | 2016-12-23 19:56 | DIAGNOSTIC IMAGING REPORT ---
VENOUS DOPPLER LW EXT BILAT HISTORY: Pain. Edema. swelling both legs. R/O DVT COMPARISON STUDY: None. FINDINGS: There is normal compressibility, flow, and augmentation within the bilateral lower extremity deep venous systems. IMPRESSION: No DVT within the right or left lower extremity. The above report was generated using voice recognition software. It may contain grammatical, syntax or spelling errors. Electronically signed by: Jared Bhardwaj M.D. 12/23/2016 7:54 PM Dictated Date/Time: 12/23/2016 7:54 PM
[2016-12-23] MEDS: BUDESONIDE/FORMOTEROL FUMARATE 160/4.5 60 PUFFS/INHALER INH SCH (20:28)
[2016-12-23] MEDS: METOPROLOL TARTRATE 25 MG TAB PO SCH (20:30)
[2016-12-23] MEDS: ASPIRIN 81 MG ECTAB PO SCH (20:31)
[2016-12-23] MEDS: HEPARIN SOD 5000 UNIT/0.5 ML CARP SQ SCH (20:32)
[2016-12-23] MEDS: INSULIN GLARGINE SOLOSTAR 100 UNITS/ML 3 ML PEN SC SCH (20:37)
[2016-12-23 20:40] VITALS: BP 181/80; PULSE 68; O2SAT 96
--- NOTE | 2016-12-23 21:15 | History and Physical ---
History & Physical Date of Service Dec 23, 2016. History & Physical ADMISSION DATE: 12/23/2016 CHIEF COMPLAINT: 81-year-old male admitted directly from home with increased shortness of breath and increased leg edema both legs more pronounced on the left side and increased abdominal girth. PRESENT ILLNESS: Patient with an extensive medical history including coronary artery disease. he is status post three-vessel coronary artery bypass graft, history of congestive heart failure, history of paroxysmal atrial fibrillation he is status post ablation, type 2 diabetes mellitus, arterial hypertension, hyperlipidemia, restless leg syndrome, peripheral neuropathy, degenerative disc disease of the lumbar spine requiring prior surgery, osteoarthritis. Status post bilateral total knee arthroplasties.mild chronic obstructive pulmonary disease. Over the last few weeks patient has been complaining of increased shortness of breath which has been getting worse. He had been on Bumex. I did increase the dose to 2 mg every 8 hours. He has been taking the increased dose but he was still having problem with increased fluid retention with bilateral leg edema. He was feeling short of breath. Even walking a short distance. He denied any associated fever or chills. No cough no sputum no hemoptysis. His contacted Dr. Gr, his medical management trainer. There is concern about congestive heart failure. Patient has been evaluated recently. He had an echocardiogram done. He did not have any significant wall motion abnormalities. His left ventricular systolic fraction was normal. his right ventricular function was slightly decreased.2 days ago he also had a nuclear cardiac scan. There was really no significant ischemic changes that indicated the need for any intervention. Dr. Gr called me this morning. He thought that it would be best for us to admit the patient. Treat his congestive heart failure and fluid retention. We are suspecting that he most likely has a right-sided failure. I did make arrangements for the patient to be admitted directly. PAST MEDICAL HISTORY: * coronary artery disease. He has had prior myocardial infarctions back in 1979 and 1989. He had recurrent episodes of angina pectoris. He had angioplasties in the remote past. On 08/22/2012 he had a cardiac catheterization done by Dr Gr. He had a balloon angioplasty for severe left circumflex artery lesion in the midportion of the artery. Placement of a stent was attempted. But it was not successful. The stenosis was reduced from 90% to around 30-40%. In November of 2013 patient was having recurrent chest pain. He had abnormal stress test. He had a repeat cardiac catheterization. He had evidence of multivessel disease. He was referred to [facility]. On 2013 he had a three-vessel coronary artery bypass graft GALINDO to LAD, saphenous vein graft to the posterior descending artery, saphenous vein graft to the obtuse marginal artery. * Paroxysmal atrial fibrillation. In the past he was treated with Coumadin for anticoagulations. His rate was controlled. When he was at [facility] he underwent epicardial right radiofrequency ablation of bilateral pulmonary veins as well as left aortic appendage ligation. He is now off Coumadin. * Type 2 diabetes mellitus. Long-standing. He is currently on insulin. * Arterial hypertension. Long-standing. Treated. He had multiple episodes with severe rise in his blood pressure. * Metallic implant around his lower jaw for dental fixation done about 30 years ago. * He had removal of his left first rib because of thoracic outlet syndrome in the remote past. 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 Subsequently he had aseptic loosening of the prosthesis and required additional surgery and revision on 10/11/2012 * Left total knee arthroplasty in April of 2015 * Hypothyroidism. Compensated. * Peripheral neuropathy. * Restless leg syndrome. Long-standing. * Right cataract surgery on 09/12/2016 * Left cataract surgery on 10/10/2016 * Episode of herpes zoster in November of 2013 number next recent diagnosis of macular degeneration. He is receiving injections in his eye. * mild obstructive pulmonary disease demonstrated on his pulmonary function tests SOCIAL HISTORY: He is . This is his third marriage. He stopped smoking back in 2001. Denied any alcohol. No excessive coffee use soft drinks. 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 He was feeling weak and tired. He was walking up to 6 miles a day when he works. He just decided not to go back to work at all. FAMILY HISTORY: His father age 78 had heart disease. His mother age 68 also had heart disease. He had a total of 10 siblings. History is significant for coronary artery disease 2 of his siblings in their 40s of coronary artery disease. ALLERGIES: * Ropinirole CURRENT MEDICATIONS: * Bumex 2 mg p.o. 3 times a day * Aspirin 81 mg daily * Klonopin 0.5 mg tablets he takes one tablet in the morning and 2 tablets in the evening * Metoprolol tartrate 75 mg twice a day * Potassium chloride 20 mEq 3 times a day * Zocor 20 mg daily * Synthroid 75 mcg daily * Pantoprazole 40 mg daily * Symbicort 160/4.5 to inhalation twice a day * Vitamin C 1000 mg twice a day * Calcium 600 mg twice a day * Spiriva 2 puffs daily * Albuterol inhaler 2 puffs 4 times a day if needed * Colace 100 mg 2 capsules twice a day * Multivitamin one daily * Lutein 6 mg daily * Humulin N [id number] units in the morning and 45 units in the evening * Benadryl 2 capsules twice a day if needed REVIEW OF SYSTEMS: He denied any headache. No dizziness no lightheadedness. He was to be receiving an injection in his left thigh that that is put on hold for now until his condition improves. He is post cataract surgery both eyes. He denied any earache or sore throat or neck pain. Denies any chest pain. He does feel some pressure in his chest. He is complaining of shortness of breath. Exacerbated by minimal activity. Has a slight cough. No sputum no hemoptysis. He is feeling pressure in his abdomen. He is complaining of abdominal distention and increase in his abdominal girth. He is feeling nauseous. No vomiting. No problem with his bowel movements. No rectal bleeding. No urinary problem. He has been having significant increase in edema in both legs more pronounced on the left side. EXAMINATION: GENERAL : Well developed. Well nourished. No acute distress.Feeling very tired. Recorded weight is 96.2 kg. Height 167.6 cm. BMI 34.2. VITAL SIGNS ; Blood Pressure : 137/74, pulse 62, respiration 18, temperature 36.7, oxygen saturation 95% on room air. SKIN : Warm and dry. No rash. HEENT :He is post cataract surgery. He has dentures. Has hearing aids. NECK : Supple. No lymph node or thyroid enlargement. No JVD. Normal carotid pulses. Bilateral carotid bruits. CHEST: Surgical scar from prior bypass surgery. HEART: Regular heart tones with 2/6 systolic murmur. No rub no gallop. LUNGS: Decreased breath sounds bilaterally. No wheezing or rhonchi. ABDOMEN: Soft nontender. definite increase in his abdominal girth.No organomegaly or masses. Good bowel sounds. BACK: Surgical scar from prior surgery. EXTREMITIES: Bilateral leg edema. Diffuse. Much more pronounced on the left side. No clubbing no cyanosis. He is wearing compression stockings. Surgical scars from prior surgeries. Good dorsalis pedis pulses. Absent posterior tibialis pulses. NEUROLOGICAL EXAMINATION: There is no evidence of any lateralized deficit. He does have peripheral neuropathy. ADMISSION TESTS: WBC count 4880 hemoglobin 12.6, hematocrit 36.3, platelet count 121,000. Sodium 143, potassium 4.1, chloride 108, CO2 29, BUN 24, creatinine 1.5, glucose 147, calcium 8.5, magnesium 2.1, total bilirubin 0.8, AST 21, ALT 24, alkaline phosphatase 65, total CK 98, MB fraction 1.9, troponin I less than 0.015, pro BNP 294, total protein 6.1, albumin 3.4, TSH 2.040, free T4-1 0.12. Urinalysis was completely normal. Chest x-ray showed no cardiopulmonary disease. Surgical changes noted. Venous Doppler of both legs showed no evidence of any deep vein thrombosis. Electrocardiogram showed a sinus rhythm with first degree AV block. Right bundle branch block. Left anterior hemiblock. No significant change compared to prior electrocardiogram. ASSESSMENT: * congestive heart failure her most likely right-sided. * Markedly increased leg edema and abdominal girth, * Coronary artery disease. History of three-vessel coronary artery bypass graft. Nuclear stress test done 2 days ago was unremarkable for any significant ischemia that requires any intervention * Arterial hypertension * Hyperlipidemia * Type 2 diabetes mellitus * Mild chronic obstructive pulmonary disease * Hypothyroidism * Peripheral neuropathy * Restless leg syndrome PLAN: Patient was admitted to PCU with telemetry. Resuscitation everyone. All his laboratory tests were done. No need to repeat his echocardiogram since it was done very recently. He also had a nuclear stress test done 2 days ago. Cardiac isoenzymes and electrocardiograms will be done. He was started on IV Bumex 2 mg IV twice a day. Will monitor his output. Will monitor his daily weights. We'll see how he responds to the IV Bumex. Cardiology consultation was requested. I spoke with Dr. Gr earlier and he will see the patient in the morning. Because of the severe edema in his legs a venous Doppler was done as noted above and he has no evidence of any deep vein thrombosis. The plan at this time is to diurese him with IV Bumex. Will increase the dose as needed. Monitor his shortness of breath, congestive heart failure, leg edema , and renal function.
[2016-12-23 23:50] LABS: CKMB/CK RATIO 1.6 (0-3.0)
[2016-12-24] VITALS (10 sets, daily range): BP systolic 129–173; BP diastolic 65–83; PULSE 53–86; TEMP 36.3–37; O2SAT 95–99
[2016-12-24] MEDS: LEVOTHYROXINE 75 MCG TAB PO SCH (05:47)
[2016-12-24] MEDS: BUDESONIDE/FORMOTEROL FUMARATE 160/4.5 60 PUFFS/INHALER INH SCH ×2 (07:27→20:45)
[2016-12-24] MEDS: MULTIVITAMIN TAB PO SCH (07:29)
[2016-12-24] MEDS: ASPIRIN 81 MG ECTAB PO SCH ×2 (07:29→20:45)
[2016-12-24] MEDS: PANTOprazole SOD 40 MG TAB PO SCH (07:34)
[2016-12-24] MEDS: METOPROLOL TARTRATE 25 MG TAB PO SCH ×2 (07:34→20:45)
[2016-12-24 08:21] LABS: BASO % 0.3 %; BASO ABS # 0.02 K/uL (0-0.2); COMPLETE YES; EOS % 2.9 %; HEMATOCRIT 39.8 % (42-52); IG% 0.7 %; LYMPH % 28.3 %; LYMPH ABS # 1.74 K/uL (1.2-3.4); MEAN CELL VOLUME 91.7 fL (80-100); MEAN CORPUSCULAR HEMOGLOBIN 31.1 pg (25-34); MEAN CORPUSCULAR HGB CONC 33.9 g/dl (32-36); MEAN PLATELET VOLUME 9.2 fL (7.4-10.4); MONO % 8.5 %; NEUT % 59.3 %; PLATELET COUNT 142 K/uL (130-400); RED BLOOD COUNT 4.34 M/uL (4.7-6.1); WHITE BLOOD COUNT 6.15 K/uL (4.8-10.8)
[2016-12-24] MEDS: INSULIN ASPART 100 UNITS/ML 3 ML PEN SC SCH ×4 (08:37→20:43)
[2016-12-24] MEDS: INSULIN GLARGINE SOLOSTAR 100 UNITS/ML 3 ML PEN SC SCH ×2 (08:38→20:44)
[2016-12-24] MEDS: HEPARIN SOD 5000 UNIT/0.5 ML CARP SQ SCH ×2 (08:38→20:44)
[2016-12-24] MEDS: BUMETANIDE IV 2 MG in SYRINGE 0 ML IV SCH ×2 (08:41→16:32)
[2016-12-24 08:53] LABS: BUN/CREATININE RATIO 15.9 (10-20); CALCIUM 8.9 mg/dl (8.5-10.1); CREATININE 1.3 mg/dl (0.60-1.40); POTASSIUM 3.8 mmol/L (3.5-5.1)
--- NOTE | 2016-12-24 14:59 | Progress Note ---
Progress Note Date of Service Dec 24, 2016. Progress Note 81-year-old male admitted with: * congestive heart failure. Acute and chronic. Right-sided. * Coronary artery disease * History of three-vessel coronary artery bypass graft * Type 2 diabetes mellitus * Arterial hypertension * Hyperlipidemia * Chronic obstructive pulmonary disease patient was admitted.he was started on IV Bumex.he has been diuresing well he denied any headache. No dizziness or lightheadedness. No chest pain pressure or tightness. Improved shortness of breath. No cough. No abdominal pain. No nausea no vomiting. The swelling in his legs has also decreased overnight. EXAMINATION: GENERAL : Well developed. Well nourished. No acute distress. VITAL SIGNS ; Blood Pressure : 146/76 Pulse : 53 Temperature :37 respirations 16 , oxygen saturation 95% on room air SKIN : Warm and dry. No rash. HEENT :Has glasses. Has dentures. Has hearing aids. NECK: Supple. Nontender. No JVD. No adenopathy. No thyromegaly. HEART: Regular heart tones with 2/6 systolic murmur. No rub no gallop. LUNGS: Clear. ABDOMEN: Soft nontender. No organomegaly or masses. BACK: No spine or CVA tenderness.. Surgical scar EXTREMITIES: Markedly decreased edema in his legs. No clubbing no cyanosis. LABORATORY TESTS: WBC count 6150, hemoglobin 13.5, hematocrit 39.8, platelet count 142,000. Sodium 142, potassium 3.8, chloride 106, CO2 33, BUN 21, creatinine 1.3, glucose 99, calcium 8.9. ASSESSMENT: * acute and chronic congestive heart failure. Right-sided * Coronary artery disease * Arterial hypertension * Type 2 diabetes mellitus * Hyperlipidemia * Hypothyroidism PLAN: * continue IV Bumex * Continue all his other medications * Cardiology consultation * Ambulation * Monitoring renal function.
--- NOTE | 2016-12-24 19:06 | CARDIOLOGY CONSULTATION ---
DATE OF CONSULTATION: 12/24/2016 PRIMARY REFERRING PHYSICIAN: John Jamison M.D. CONSULTATION: Js Gr M.D. HISTORY OF PRESENT ILLNESS: The patient is an 81-year-old year ago white male, longstanding history of coronary artery disease, history of DE in the 1980s, balloon angioplasty of left circumflex in the . Cardiac catheterization in 2012 revealed a 90% mid left circumflex stenosis, moderate RCA disease, distal RCA had a 50-70% stenosis, PTCA performed to the mid circumflex with up to 2.5 mm diameter balloon, unable to pass a stent across the stenotic site. Worsening exertional dyspnea associated chest discomfort in 2013. Cardiac catheterization 11/21/2013 with 75% mid LAD stenosis, 90% proximal left circumflex stenosis, 75-85% mid RCA stenosis. Transferred to [facility]. A 3-vessel CABG surgery with left intramammary artery graft to LAD, saphenous vein graft to PDA, and saphenous vein graft to left circumflex marginal. Ablation of the bilateral pulmonary veins and left atrial appendage ligation were also performed. He has a history of paroxysmal atrial fibrillation. The patient did well after bypass surgery until spring when he developed exertional dyspnea. With the change in his diuretic and bronchodilator therapy, his dyspnea has resolved. The patient states that he was then able to be active without any significant-limiting complaints. Over the past several months, he has again developed worsening dyspnea on exertion as well as development of peripheral edema. He states that both of these symptoms started after he receiving intravitreal injections for macular degeneration. He receives these injections every 5-7 weeks. He states he has had a total of 7 injections. He noted after starting these injections that the dyspnea was returning. He also began to develop worsening peripheral edema. Normally, he has had mild peripheral edema. He was closely followed by Dr. Jamison for this. Despite increasing his diuretic dose to Bumex 2 mg t.i.d. the edema has worsened. He has undergone noninvasive evaluation of his heart with an echocardiogram performed on 11/24/2016. This revealed normal left ventricular size and systolic function. LV ejection fraction 55-60%. Moderate concentric LVH. Type 1 LV diastolic dysfunction. The right ventricle had mildly reduced systolic function. No significant valvular regurgitation noted. Normal appearance of the inferior vena cava. He underwent pulmonary function test on 12/16/2016 which revealed mild restriction. Evidence of airtrapping. Effusion was calculated at 59%, with correction for alveolar ventilation it was 83%. An oxygen 2-step test performed on 12/07/2016 at the [facility]iology offices revealed resting oxygen saturation 95%. After walking 6 minutes, the oxygen saturation was 98%. In the recovery phase, the oxygen saturation was 98%. He did complain of dyspnea with this activity. Despite the increase in his diuretic dose, the patient complained of progressively worsening dyspnea on exertion and bilateral leg edema. He also felt that he was having increased abdominal distention. He was having dyspnea after walking only several feet. Over the past few months, he had been complaining of increased dyspnea on exertion. This was paroxysmal. Sometimes he could walk a prolonged distance without any significant dyspnea. Other times, he would have dyspnea after walking only 20 feet. He denies orthopnea or PND. No palpitations. No lightheadedness or syncope. The patient contacted his physicians on December 23 regarding the worsening dyspnea and increasing peripheral edema. Dr. Jamison was then admitted the patient to the hospital for intravenous diuretic therapy. The patient was admitted to a monitored bed on the medical floor. The patient is being treated with intravenous Bumex 2 mg IV b.i.d. He states that by the evening of the admission, he felt marked improvement in his condition. He states he is able to walk around the unit 4 times without any dyspnea. Today, he feels that his peripheral edema has decreased compared to the level prior to admission. He also feels that his abdominal girth has decreased since admission. He denies any penile or scrotal edema. No chest pain or other anginal type pains. No wheezing. No cough. No sputum production. Yesterday, at the time of admission, he also had complaints of nausea. No complaints of nausea today. His appetite is good. He states his bowel movements are normal. No symptoms of GI bleeding. No other bleeding complaints. He denies any focal neurologic symptoms. He did complain of aching discomfort in both calves, prior to admission. A venous Doppler exam of his legs was performed yesterday and revealed no evidence of deep venous thrombosis. No dysuria or hematuria. He does have occasional nocturia. With a recent increase in his diuretic dose, he felt that he was actually having decreased amounts of urination compared to previously. PAST MEDICAL HISTORY: 2. History of paroxysmal atrial fibrillation. 3. History of diastolic congestive heart failure. 4. Hypertension. 5. Gastroesophageal reflux disease. 6. Hypothyroidism. 7. Peripheral neuropathy. 8. History of thoracic outlet syndrome, requiring removal of left first rib. 9. Restless leg syndrome. 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 11. Status post cholecystectomy and appendectomy. 12. Status post bilateral cataract surgery. 13. Status post right total knee arthroplasty. Revision of this in 2013. 14. Insulin-dependent diabetes mellitus. FAMILY HISTORY: His father at age 78, he had a history of heart disease. His mother at age 68, she also had a history of heart disease. History of coronary artery disease in 2/10 siblings. ALLERGIES AND ADVERSE DRUG REACTIONS: ROPINIROLE. SOCIAL HISTORY: The patient is . Previously . He is retired. 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 He stopped smoking cigarettes in 2001. Remote history of alcohol use. REVIEW OF SYSTEMS: 1. As above. 2. The injections for his glaucoma are in his left eye. He states that with the injections every 5 weeks, his visual loss has stabilized. When I was attempted to increase the duration between injections to 7 weeks, there was a worsening of his vision in the left eye. This is by testing performed at the transplant nurse's office. CURRENT MEDICATIONS: Multivitamins 1 daily, pantoprazole 40 mg daily, levothyroxine 75 mcg daily, Lantus insulin 15 units subQ b.i.d., aspirin 81 mg b.i.d., Symbicort 2 puffs b.i.d., metoprolol tartrate 75 mg b.i.d., subQ heparin 5000 units q. 12 hours, Bumex 2 mg IV b.i.d., sliding scale NovoLog insulin, p.r.n. acetaminophen, p.r.n. sublingual nitroglycerin. PHYSICAL EXAMINATION: VITAL SIGNS: Intake and output yesterday 240/1375. Yesterday's weight 96.2 kg. Today's 94.5 kg. Monitor history since admission reveals sinus rhythm and sinus bradycardia. GENERAL: The patient is sitting up in his bed. No distress. HEAD: Normal. EYES: Pupils equal and round. Anicteric. Conjunctivae normal. NECK: No jugular venous distension. Carotids 2/2 bilaterally. Normal upstroke. No bruits. LUNGS: Normal respiratory effort. No rales, wheezes, rhonchi. HEART: PMI not palpable. No lifts or heaves. Regular rate and rhythm. S1, S2 normal. No S3 or S4. 2/6 systolic murmur second right intercostal space. No diastolic murmur or rub. ABDOMEN: Soft. Nontender. No palpable masses or organomegaly. No bruits. Normal bowel sounds. EXTREMITIES: 1+ pretibial edema bilaterally. No cyanosis or clubbing. NEUROLOGIC: Alert and oriented x3. Motor grossly intact. PSYCHIATRIC: Affect is normal. DATA: Electrocardiogram performed yesterday revealed sinus rhythm with first degree AV block. Left axis deviation. Left intrafascicular block. Right bundle branch block. Chest x-ray performed on December 23 and reviewed by me shows no evidence of heart failure or infiltrate. Lexiscan myocardial perfusion test on 12/21/2016 revealed mild reversible apical lateral and inferior perfusion defect suggestive of a small amount of ischemia in the left circumflex marginal distribution. LV ejection fraction reported to be 54%. Labs today with WBC 6.15, hemoglobin 13.5, hematocrit 39.8, platelet count is 142. Metabolic profile performed yesterday revealed sodium 143, potassium 4.1, chloride 108, carbon dioxide 29, BUN 24, creatinine 1.50, random glucose 147. Troponin I less than 0.015. Repeat troponin I less than 0.015, and less than 0.015. TSH 2.040, free T4 1.12. CK total 98 with MB of 1.9. AST 21, ALT 24, magnesium 2.1, calcium 8.5, alkaline phosphatase 65. Labs today with sodium 142, potassium 3.8, chloride 106, carbon dioxide 33, BUN 21, creatinine 1.30, random glucose 99. As stated above, troponin I less than 0.015 on 3 determinations. CK-MB is 1.9, 1.6 and 1.6. INR yesterday 1.0. PTT 23.5. Urinalysis yesterday was unremarkable. ADDENDUM: Over the past few months, the patient has complained of labile blood pressures. He feels that sometimes his blood pressures are high. Other times when he takes them, they are low. The highest systolic readings have been 175-185. The lowest systolic readings have been 105 systolic. His blood pressure has improved after he was started on losartan. With the higher blood pressures, he has had the sensation of lightheadedness. ASSESSMENT: 1. Worsening dyspnea on exertion and worsening peripheral edema over the past several months. The patient feels that these issues worsened after he was started on the injections for his macular degeneration. The medications used for this are antiangiogenic medications. The side effects from this type of medication were reviewed by me. With these medications there can be a ____ incidence of edema. There is frequently an increase in blood pressure, appeared there can be a decrease in the left ventricular systolic function. This patient's recent echocardiogram revealed normal left ventricular systolic function. The right ventricular systolic function was mildly decreased. There was no evidence of elevated right heart or central venous pressures. His normal liver function test would go against any hepatic disease. His proBNP yesterday was normal at 294. This would go against congestive heart failure as an etiology for any fluid retention. Thus, have to consider that his intravitreal injections could be contributing to development of worsened peripheral edema. With intravenous diuretics since admission, his edema has improved. His dyspnea has improved. He has had a good urine output. 2. Elevated BUN and creatinine at time of admission. These have actually improved with diuresis. His creatinine today is normal. 3. No anginal symptoms. Recent Lexiscan pharmacologic stress test without evidence of any significant myocardial ischemia. Cardiac enzymes on this admission negative for myocardial injury. Electrocardiograms without evidence of myocardial ischemia or injury. 4. Right bundle branch block, left anterior fascicular block, and first degree atrioventricular block. No significant lightheadedness. No syncope. 5. History of hypothyroidism. Current thyroid function tests are normal. 6. History of mild reactive airway disease. No current signs or symptoms of bronchospasm. Recent pulmonary function test revealed no significant change in his pulmonary function compared to prior pulmonary function test. The patient's reports of labile hypertension may also have been related to the antiangiogenic medications administered for his macular degeneration. On admission yesterday, he was documented to have the systolic pressure as high as 190. Diastolic pressure of 82. Systolic pressure has improved since then. If his renal function remains stable, could consider restarting him on losartan. RECOMMENDATIONS: 1. Continue intravenous diuretics. 2. Ultimately, can switch back to oral diuretics. 3. Consider placing patient back on spironolactone. In the past, he was on spironolactone 25 mg daily. Thank you for asking me to see this patient in cardiology consultation. NANCY
[2016-12-25] VITALS (10 sets, daily range): BP systolic 129–155; BP diastolic 66–77; PULSE 55–67; TEMP 36.4–36.8; O2SAT 92–97
[2016-12-25] MEDS: LEVOTHYROXINE 75 MCG TAB PO SCH (05:52)
[2016-12-25] MEDS: ASPIRIN 81 MG ECTAB PO SCH ×2 (08:35→20:36)
[2016-12-25] MEDS: INSULIN ASPART 100 UNITS/ML 3 ML PEN SC SCH ×4 (08:40→20:40)
[2016-12-25] MEDS: INSULIN GLARGINE SOLOSTAR 100 UNITS/ML 3 ML PEN SC SCH ×2 (08:41→20:47)
[2016-12-25] MEDS: MULTIVITAMIN TAB PO SCH (08:42)
[2016-12-25] MEDS: HEPARIN SOD 5000 UNIT/0.5 ML CARP SQ SCH ×2 (08:42→20:49)
[2016-12-25] MEDS: PANTOprazole SOD 40 MG TAB PO SCH (08:43)
[2016-12-25] MEDS: BUDESONIDE/FORMOTEROL FUMARATE 160/4.5 60 PUFFS/INHALER INH SCH ×2 (08:43→20:36)
[2016-12-25] MEDS: BUMETANIDE IV 2 MG in SYRINGE 0 ML IV SCH ×3 (08:44→21:36)
[2016-12-25] MEDS: METOPROLOL TARTRATE 25 MG TAB PO SCH ×2 (08:50→20:38)
[2016-12-25 09:03] LABS: BASO % 0.3 %; BASO ABS # 0.02 K/uL (0-0.2); COMPLETE YES; EOS % 2.3 %; IG% 0.5 %; LYMPH % 34.2 %; LYMPH ABS # 1.96 K/uL (1.2-3.4); MEAN CELL VOLUME 91.9 fL (80-100); MEAN CORPUSCULAR HEMOGLOBIN 31.4 pg (25-34); MEAN CORPUSCULAR HGB CONC 34.1 g/dl (32-36); MEAN PLATELET VOLUME 9.6 fL (7.4-10.4); MONO % 8.4 %; NEUT % 54.3 %; PLATELET COUNT 152 K/uL (130-400); RED BLOOD COUNT 4.46 M/uL (4.7-6.1); WHITE BLOOD COUNT 5.73 K/uL (4.8-10.8)
[2016-12-25 09:39] LABS: BUN/CREATININE RATIO 18.3 (10-20); CALCIUM 9.2 mg/dl (8.5-10.1); CREATININE 1.4 mg/dl (0.60-1.40); MAGNESIUM 2.3 mg/dl (1.8-2.4); POTASSIUM 3.8 mmol/L (3.5-5.1)
[2016-12-25] MEDS ORDERED: SPIRONOLACTONE 25 MG TAB PO ONE (11:45)
[2016-12-25] MEDS ORDERED: METOLAZONE 2.5 MG TAB PO ONE (11:45)
--- NOTE | 2016-12-25 13:06 | CARDIOLOGY PROGRESS NOTE ---
DATE: 12/25/2016 SUBJECTIVE: The patient was seen by me late this morning in his medical floor/telemetry unit bed. He states that he continues to feel better with continued diuresis. He again walked in the [place] many times last night. He had improved exercise tolerance compared to the previous night. He denies any dyspnea at rest or walking about the room. No orthopnea or PND overnight. No palpitations, lightheadedness, or syncope. No chest pain or other anginal type pains. He feels that his abdominal girth has decreased since admission. His peripheral edema has decreased since admission. No calf pain. No neurologic type complaints. CURRENT MEDICATIONS: Spironolactone 25 mg daily, Bumex 2 mg IV q. 8 hours, multivitamin 1 tablet daily, pantoprazole 40 mg daily, levothyroxine 75 mcg daily, Lantus insulin 15 units subQ b.i.d., aspirin 81 mg b.i.d., Symbicort 2 puffs b.i.d., metoprolol tartrate 75 mg b.i.d., subQ heparin 5000 units q. 12 hours, and sliding scale NovoLog insulin. He received a dose of metolazone 2.5 mg p.o. this morning. He also received a dose of spironolactone 25 mg late this morning. Intake and output reported yesterday 2255/1275. Today's weight reported to be 90.4 kg. Yesterday's weight reported to be 94.5 kg. Admission weight 96.2 kg. This was on December 23. PHYSICAL EXAMINATION: VITAL SIGNS: Late this morning with oral temperature 36.8, pulse 67, blood pressure 155/77, and pulse oximetry on room air 92%. Blood pressure earlier this morning was 129/69. GENERAL APPEARANCE: Shows him to be in no distress. HEAD: Normal. NECK: No jugular venous distention. LUNGS: Normal respiratory effort. Clear. No rales or wheezes. HEART: Regular rate and rhythm. S1 and S2 normal. No S3 or S4. 2/6 systolic murmur at the second right intercostal space. No diastolic murmur or rub. ABDOMEN: Soft. Nontender. No palpable masses or organomegaly. EXTREMITIES: 1+ pretibial edema bilaterally. No calf tenderness. NEUROLOGIC: Alert and oriented x3. Motor grossly intact. PSYCHIATRIC: Affect is normal. DATA: Electrocardiogram this morning was sinus rhythm at a rate of 62 beats per minute. First degree AV block with DE interval at 230 milliseconds. Right bundle branch block. Left intrafascicular block. No significant change compared to electrocardiogram of November 22. Labs today with WBC 5.73, hemoglobin 14.0, hematocrit 41.0, and platelet count 152. Metabolic profile today with sodium 140, potassium 3.8, chloride 100, carbon dioxide 33, BUN 26, creatinine 1.40, random glucose 211, and magnesium 2.3. ASSESSMENT: 1. Marked improvement in dyspnea on exertion since admission. This is with diuresis. He has also had a decrease in his peripheral edema since admission. The edema today on exam does not appear significantly changed from yesterday. His intake and output and weight do not correspond. It is reported today that his weight decreased significantly from yesterday. However, his reported intake yesterday was greater than output. 2. Recent echocardiogram with normal left ventricular systolic function. No evidence of elevated intracardiac pressures. 3. Recent pulmonary function test with mild obstructive disease. No current signs or symptoms of bronchoconstriction. 4. Coronary artery disease. Recent Lexiscan pharmacologic stress test without evidence of any large amounts of myocardial ischemia. Possible ischemia in the distribution of the left circumflex marginal. The patient is walking in the [place] and is not experiencing any of the typical anginal pains. 5. First degree AV block, left anterior fascicular block, and right bundle branch block on electrocardiogram. He has no lightheadedness or syncope. 6. Prerenal azotemia. His ongoing diuresis is likely contributory. 7. In light of the time frame of his symptoms and the testing, which has been performed, it is possible that his peripheral edema and labile hypertension are secondary to the injections of antiangiogenic medications for his glaucoma. The patient's increased peripheral edema and his dyspnea on exertion started after receiving these intravitreal injections. RECOMMENDATIONS: 1. Agree with continued attempts at diuresis. 2. No further cardiac workup at this time. 3. Continue monitoring of his renal function with diuresis. Continue monitoring of his potassium.
--- NOTE | 2016-12-25 18:35 | Progress Note ---
Progress Note Date of Service Dec 25, 2016. Progress Note 81-year-old male admitted with: * congestive heart failure. Acute and chronic. Most likely right-sided. Also possibly a side effect of the medication he is receiving for injection of his eyes because of macular degeneration. This was noted by Maile Saldana * Coronary artery disease * History of three-vessel coronary artery bypass graft * History of paroxysmal atrial fibrillation * Type 2 diabetes mellitus * Arterial hypertension patient was admitted. He was started on IV Bumex. He has been diuresing but not to extent I was expecting.he is feeling better. He is ambulating. Not having much shortness of breath with ambulation in the hallways. He denied any headache. No dizziness no lightheadedness. Denied any chest pain. No shortness of breath. No cough. No nausea no vomiting. No problem with his bowel movements. No problem urinating. EXAMINATION: GENERAL : Well developed. Well nourished. No acute distress. VITAL SIGNS ; Blood Pressure : 129/69, pulse 55, respirations 16, temperature 36.8, oxygen saturation 95% on room air SKIN : Warm and dry. No rash. HEENT :No mucosal abnormality NECK : Supple. No adenopathy. No thyromegaly. No JVD. Normal carotid pulses. HEART: Regular heart tones with 2/6 systolic murmur. No rub no gallop. LUNGS: Clear. Normal breath sounds. ABDOMEN: Soft nontender. No organomegaly or masses. Good bowel sounds. BACK: No spine or CVA tenderness.Surgical scar EXTREMITIES: Decreased edema. No clubbing no cyanosis. LABORATORY TESTS: WBC count 5730, hemoglobin 14, hematocrit 41%, platelet count 152,000. Sodium 140, potassium 3.8, chloride 100, CO2 33, BUN 26, creatinine 1.4, glucose 211, calcium 9.2, magnesium 2.3. ASSESSMENT: * congestive heart failure. Acute and chronic. * Coronary artery disease * Arterial hypertension * Chronic obstructive pulmonary disease * Type 2 diabetes mellitus PLAN: * increased IV Bumex to 2 mg every 8 hours * One dose of Zaroxolyn 2.5 mg * Started back on Aldactone 25 mg daily. As recommended by Dr. Gr * Encouraged ambulation he is really doing a great job. * Continue all his other medications * Monitoring his electrolytes and renal function and fluid status.
[2016-12-26] VITALS (10 sets, daily range): BP systolic 121–167; BP diastolic 61–74; PULSE 57–62; TEMP 36.3–36.4; O2SAT 94–98
[2016-12-26] MEDS: LEVOTHYROXINE 75 MCG TAB PO SCH (05:53)
[2016-12-26] MEDS: BUMETANIDE IV 2 MG in SYRINGE 0 ML IV SCH ×2 (05:53→14:18)
[2016-12-26 07:08] LABS: HEMATOCRIT 38.2 % (42-52); MEAN CELL VOLUME 90.7 fL (80-100); MEAN CORPUSCULAR HEMOGLOBIN 31.6 pg (25-34); MEAN CORPUSCULAR HGB CONC 34.8 g/dl (32-36); MEAN PLATELET VOLUME 9.5 fL (7.4-10.4); PLATELET COUNT 139 K/uL (130-400); RED BLOOD COUNT 4.21 M/uL (4.7-6.1)
--- NOTE | 2016-12-26 07:14 | Clinical Documentation Query ---
Dr. [facility] : CLINICAL DOCUMENTATION QUERIES QUERY 1 OF 2 Patient is an 81 year old male admitted for acute on chronic congestive heart failure, most likely right sided. Recent echocardiogram noted normal LVEF and mildly reduced systolic function of the right ventricle. He is being monitored on telemetry with I/O, daily weights, DAHA diet, serial labs, enzymes, cardiology consultation, and is being diuresed with IV Bumex. As appropriate, please explicitly state the type of CHF in your patient. Thank you. In your clinical opinion is this patient being managed for: (x ) Acute on chronic systolic RV CHF ( ) Other explanation of clinical findings (Please Explain) ( ) Unable to determine (Please Define) ( ) Need to Discuss ( ) Not Agree The medical record reflects the following clinical findings, treatment, and risk factors. Clinical Indicators: As above Treatment:He is being monitored on telemetry with I/O, daily weights, DAHA diet, serial labs, enzymes, cardiology consultation, and is being diuresed with IV Bumex Risk Factors: Age, hypertension, medication effect, CAD QUERY 2 OF 2 Admission BUN, creatinine, and estimated GFR were 24 mg/dl, 1.50 mg/dl, and 43 ml/min. Historical EMR review demonstrates an estimated GFR of 40-60 ml/min dating back to 09/05/14. As appropriate, consider documentation as suggested below as this directly impacts severity of illness, risk of mortality, and ultimately DRG assignment. Thank you. In your clinical opinion is this patient being managed for: ( x ) Chronic kidney disease, stage 3 ( ) Other explanation of clinical findings (Please Explain) ( ) Unable to determine (Please Define) ( ) Need to Discuss ( ) Not Agree The medical record reflects the following clinical findings, treatment, and risk factors. Clinical Indicators: As above Treatment: Serial chemistries Risk Factors: Age, CAD, hypertension, DM Please clarify and document your clinical opinion in the progress notes and discharge summary. Terms such as "probable", "suspected", "likely", "questionable", "possible", or "still to be ruled out" are acceptable. IF IN AGREEMENT, YOU MUST DOCUMENT ABOVE DIAGNOSTIC STATEMENT IN DAILY PROGRESS NOTES AND DISCHARGE SUMMARY. This document is not part of the patient's record. Thank You, Juan Carlos Lagunas, ADITI [phone]
[2016-12-26 07:45] LABS: BUN/CREATININE RATIO 20.5 (10-20); CALCIUM 9.1 mg/dl (8.5-10.1); CREATININE 1.5 mg/dl (0.60-1.40); POTASSIUM 3.2 mmol/L (3.5-5.1)
[2016-12-26] MEDS: ASPIRIN 81 MG ECTAB PO SCH ×2 (08:03→20:53)
[2016-12-26] MEDS: MULTIVITAMIN TAB PO SCH (08:04)
[2016-12-26] MEDS: PANTOprazole SOD 40 MG TAB PO SCH (08:04)
[2016-12-26] MEDS: SPIRONOLACTONE 25 MG TAB PO SCH (08:04)
[2016-12-26] MEDS: METOPROLOL TARTRATE 25 MG TAB PO SCH ×2 (08:04→20:57)
[2016-12-26] MEDS: BUDESONIDE/FORMOTEROL FUMARATE 160/4.5 60 PUFFS/INHALER INH SCH ×2 (08:05→20:53)
[2016-12-26] MEDS: INSULIN ASPART 100 UNITS/ML 3 ML PEN SC SCH ×4 (08:16→20:58)
[2016-12-26] MEDS: HEPARIN SOD 5000 UNIT/0.5 ML CARP SQ SCH ×2 (08:16→20:59)
[2016-12-26] MEDS: INSULIN GLARGINE SOLOSTAR 100 UNITS/ML 3 ML PEN SC SCH ×2 (08:16→20:59)
[2016-12-26] MEDS ORDERED: POTASSIUM CHLORIDE 10 MEQ TABCR PO ONE ×2 (09:00→13:00)
[2016-12-26 17:52] LABS: BUN/CREATININE RATIO 16.5 (10-20); CALCIUM 9.7 mg/dl (8.5-10.1); CREATININE 2.1 mg/dl (0.60-1.40)
[2016-12-26 17:53] LABS: POTASSIUM 3.8 mmol/L (3.5-5.1)
--- NOTE | 2016-12-26 18:28 | Progress Note ---
Progress Note Date of Service Dec 26, 2016. Progress Note 81-year-old male admitted with: * Acute and chronic congestive heart failure thought to be right sided * Coronary artery disease * Type 2 diabetes mellitus * Arterial hypertension * Hyperlipidemia * Degenerative arthritis Patient was admitted. He was diuresed with IV Bumex. He was also started on spider lactone and given 1 dose of Zaroxolyn. He was seen in cardiology consultation by Dr. Gr. He has been diuresing well. His condition is improved. He denied any headache or dizziness or lightheadedness. No chest pain. His shortness of breath has subsided. He is able to ambulate in the hallway many times without any problem. Good appetite. No abdominal pain no nausea no vomiting. No problem with his bowel movements. No problem urinating. The bilateral leg edema has markedly improved and is resolving. Examination Well-developed in no distress. Vital signs: Blood pressure 152/74, pulse 61, respiration 18, temperature 36.3, oxygen saturation 94% on room air Skin is warm and dry. No rash. HEENT he does wear glasses. Has dentures. Has hearing aids. He is complaining of tearing from his left eye. He is post cataract surgery. Neck is supple. Nontender. No lymph node or thyroid enlargement. No JVD. Heart regular heart sounds with 2/6 systolic murmur. Lungs are clear. Abdomen is soft nontender without organomegaly or masses Extremities markedly decreased edema. No clubbing or cyanosis. Laboratory tests WBC count 5900 hemoglobin 13.3 hematocrit 38.2 platelet count 139,000 Sodium 140, potassium 3.2, chloride 101, CO2 32, BU and 31, creatinine 1.5, glucose 185, calcium 9.1, magnesium 2.0. Assessment: * Acute and chronic congestive heart failure. Right sided. Diastolic. * Coronary artery disease * Arterial hypertension * Hyperlipidemia * Type 2 diabetes mellitus Plan: * Continuing the same medications * Potassium supplementation * Continue ambulation * Continue monitoring his laboratory tests. We'll repeat his PRP this evening * If his condition remains stable I would anticipate discharge tomorrow morning
[2016-12-27 00:03] VITALS: BP 139/90; PULSE 53; TEMP 36.4; O2SAT 99
[2016-12-27 04:17] VITALS: BP 131/67; PULSE 75; TEMP 36.6; O2SAT 92
[2016-12-27] MEDS: LEVOTHYROXINE 75 MCG TAB PO SCH (07:02)
[2016-12-27 07:03] VITALS: BP 142/71; PULSE 58; TEMP 36.5; O2SAT 92
[2016-12-27 07:21] LABS: BASO % 0.2 %; BASO ABS # 0.02 K/uL (0-0.2); COMPLETE YES; EOS % 1.7 %; HEMATOCRIT 40.4 % (42-52); IG% 0.2 %; LYMPH % 27.3 %; LYMPH ABS # 2.26 K/uL (1.2-3.4); MEAN CELL VOLUME 90.4 fL (80-100); MEAN CORPUSCULAR HEMOGLOBIN 32.4 pg (25-34); MEAN CORPUSCULAR HGB CONC 35.9 g/dl (32-36); MEAN PLATELET VOLUME 9.1 fL (7.4-10.4); MONO % 8.3 %; NEUT % 62.3 %; PLATELET COUNT 152 K/uL (130-400); RED BLOOD COUNT 4.47 M/uL (4.7-6.1); WHITE BLOOD COUNT 8.27 K/uL (4.8-10.8)
[2016-12-27 07:35] VITALS: O2SAT 92
[2016-12-27 07:39] LABS: BUN/CREATININE RATIO 21.8 (10-20); CALCIUM 9.5 mg/dl (8.5-10.1); CREATININE 1.7 mg/dl (0.60-1.40); POTASSIUM 3.3 mmol/L (3.5-5.1)
[2016-12-27] MEDS ORDERED: POTASSIUM CHLORIDE 10 MEQ TABCR PO STA (07:43)
[2016-12-27] MEDS: ASPIRIN 81 MG ECTAB PO SCH (08:13)
[2016-12-27] MEDS: BUDESONIDE/FORMOTEROL FUMARATE 160/4.5 60 PUFFS/INHALER INH SCH (08:14)
[2016-12-27] MEDS: MULTIVITAMIN TAB PO SCH (08:14)
[2016-12-27] MEDS: METOPROLOL TARTRATE 25 MG TAB PO SCH ×2 (08:14→08:24)
[2016-12-27] MEDS: PANTOprazole SOD 40 MG TAB PO SCH (08:14)
[2016-12-27] MEDS: SPIRONOLACTONE 25 MG TAB PO SCH (08:15)
[2016-12-27] MEDS: INSULIN GLARGINE SOLOSTAR 100 UNITS/ML 3 ML PEN SC SCH (08:16)
[2016-12-27] MEDS: INSULIN ASPART 100 UNITS/ML 3 ML PEN SC SCH (08:16)
[2016-12-27] MEDS: HEPARIN SOD 5000 UNIT/0.5 ML CARP SQ SCH (08:17)
[2016-12-27] MEDS ORDERED: SPR25 PO (08:18)
[2016-12-27 08:20] VITALS: BP 125/82; PULSE 63; TEMP 36.5; O2SAT 95
--- NOTE | 2016-12-27 08:20 | Discharge Instructions ---
Discharge Instructions Date of Service Dec 27, 2016. Admission Reason for Admission: Cad, Chf Discharge Discharge Diagnosis / Problem: CONGESTIVE HEART FAILURE. CORONARY ARTERY DISEASE Discharge Goals Goal(s): Decrease discomfort, Improve function, Increase independence, Improve disease control Activity Recommendations Activity Limitations: resume your previous activity . Current Hospital Diet Patient's current hospital diet: Diabetes Type 2 Diet, AHA Diet (Heart Healthy) Discharge Diet Recommended Diet: AHA Diet (Heart Healthy), Diabetes Type 2 Diet Pending Studies Studies pending at discharge: no Medical Emergencies . Who to Call and When: Medical Emergencies: If at any time you feel your situation is an emergency, please call 911 immediately. . Non-Emergent Contact Non-Emergency issues call your: Primary Care Provider . . "Provider Documentation" section prepared by John Jamison. . VTE Core Measure Inpt VTE Proph given/why not?: Treatment not indicated
[2016-12-27 08:43] VITALS: BP 125/82; PULSE 63; TEMP 36.5; O2SAT 95
--- NOTE | 2016-12-27 23:06 | Progress Note ---
Progress Note Date of Service Dec 27, 2016. Progress Note 81-year-old male admitted with: * congestive heart failure. Acute and chronic. Right sided * Coronary artery disease * Type 2 diabetes mellitus and * Arterial hypertension * Hyperlipidemia * Degenerative disc disease of the lumbar spine * Osteoarthritis * Chronic kidney disease with worsening BUN and creatinine secondary to diuresis Patient was diuresed with IV Bumex. Aldactone was added. He received one dose of Zaroxolyn. He diuresed very well. His condition markedly improved. He had no headache or dizziness or lightheadedness. No chest pain. His shortness of breath resolved. He was able to ambulate in the hallway without any problem. Denied any abdominal pain. No nausea no vomiting. No problem with his bowel movements. No problem urinating. The swelling in his leg has markedly decreased. EXAMINATION: General : Well developed. Well nourished. No distress. Vital Signs : Blood [id number], pulse 58, respiration 18, temperature 36.5, oxygen saturation 92% on room air Skin : Warm and dry. No rash. HEENT :He wears glasses. Has hearing aids. Has dentures. Neck is supple without adenopathy or thyromegaly. No JVD. Heart : Regular heart sounds. 2/6 systolic murmur. No rub or gallop. Lungs : Clear. Normal breath sounds. Abdomen : Soft nontender without any organomegaly or masses. Active bowel sounds. Back : No spinal or CVA tenderness.Surgical scar Extremities 1+ edema. No clubbing no cyanosis. LABORATORY TESTS: WBC count 8270, hemoglobin 14.5, hematocrit 40.4, platelet count 152,000. Sodium 138, potassium 3.3, chloride 100, CO2 32, BUN 37, creatinine 1.7, glucose 157, calcium 9.5. ASSESSMENT: * acute and chronic congestive heart failure * Coronary artery disease * Chronic renal disease. After diureses his creatinine increased to 2.1. That was last night each. This morning is down to 1.7. * Hypokalemia * Type 2 diabetes mellitus * Arterial hypertension PLAN: * continue all his medications * Potassium supplementation * Discharge home today * Followup in the office in one week * Cardiology followup as scheduled * When I see him in the office I will repeat his PRP.
--- NOTE | 2017-01-07 14:31 | Discharge Summary ---
Discharge Summary Date of Service Jan 07, 2017. Discharge Summary ADMISSION DATE:12/23/2016 DISCHARGE DATE:12/27/2016 DISCHARGE DIAGNOSES: * acute and chronic congestive heart failure. Right-sided * Coronary artery disease * Type II with diabetes mellitus * Acute and chronic renal failure * Arterial hypertension * Hyperlipidemia * Osteoarthritis * Degenerative disc disease of the lumbar spine * Peripheral neuropathy * Restless leg syndrome * Hypothyroidism * Dyspepsia DISCHARGE MEDICATIONS: * spironolactone 25 mg daily * Albuterol inhaler 2-4 puffs every 6 hours as needed * Ascorbic acid 1000 mg twice a day * Aspirin 81 mg daily * Symbicort 160/4.52 puffs twice a day * Bumex 2 mg 3 times a day * Calcium with vitamin D 600 mg twice a day * Clonazepam 0.5 mg daily in the morning and 1 mg daily in the evening * Benadryl 25 mg 2 capsules twice a day * Docusate sodium 100 mg 2 capsules twice a day * Novolin N insulin 55 units in the morning and 50 units in the evening * Levothyroxine 75 mcg daily * Losartan 25 mg daily * Metoprolol tartrate 50 mg twice a day * Lutein 20 mg daily * Multivitamin one tablet daily * Pantoprazole 40 mg daily * Potassium chloride 20 mEq 3 times a day * Simvastatin 40 mg tablets he takes one half tablet or 20 mg daily * Spiriva one capsule inhalation daily * Nitrostat 0.4 mg tablets that he keeps on hand CONSULTATIONS: Dr. Js Gr in cardiology 81-year-old male admitting directly from home with increasing shortness of breath and leg edema in both legs more pronounced on the left side and increased abdominal girth. He was thought to have congestive heart failure. Patient with an extensive medical history as noted above. Over the last few weeks prior to his admission he has been complaining of increased shortness of breath. He had been on Bumex. I did increase his dose to 2 mg 3 times a day. He was still having problem with increased fluid retention with bilateral leg edema. He was feeling short of breath. He been walking a short distance he becomes very dyspneic. He had no fever or chills. No cough or sputum or hemoptysis. His contacted Dr. 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 Patient was recently evaluated. He had an echocardiogram done which did not really show any new wall motion abnormality. He also had a Lexiscan which did not show any evidence of any ischemic changes. After discussion with Dr. Gr and a concern about his congestive heart failure and worsening symptoms I made arrangements for him to be admitted to PCU with telemetry. PAST MEDICAL HISTORY, SOCIAL HISTORY, FAMILY HISTORY: As noted on admission history and physical ALLERGIES: Ropinirole ADMISSION MEDICATIONS: As noted on the home medication list PHYSICAL EXAMINATION AND ADMISSION LABORATORY TESTS : as noted on his admission history and physical HOSPITAL COURSE: Patient was admitted to PCU with telemetry. Resuscitation level I. All his laboratory tests were ordered. Cardiac isoenzymes and serial electrocardiograms were ordered. He was started on IV Bumex 2 mg every 12 hours. His urine output was monitored. His daily weights were monitored. Cardiology consultation was requested. A venous Doppler was done of both lower extremities. There was no evidence of any deep vein thrombosis. He had a good diuresis. Temporarily his Bumex dose was increased to 2 mg every [address] Gr investigated the side effect of the intraocular injections the patient was receiving because of his macular degeneration. Some of the side effects were thought to account for the increased fluid retention and congestive heart failure. This was very likely given the fact that the patient had an unchanged echocardiogram and a stress test that did not show evidence of any ischemia. The plan was to hold off on any additional injections. His condition improved. He diuresed very well. His BUN and creatinine did increase related to the diuresis. The dose of his Bumex was decreased. His creatinine level and was improving. It was 2.1 on 12/26/2016 and down to 1.7 on 12/27/2016 he also did require potassium supplementation. His condition markedly improved. His shortness of breath subsided. He was ambulating without any exertional dyspnea. Patient was discharged home. Medications as noted above. Cardiology followup. Followup with me in the office one week after his discharge. Will monitor his PRP.
== END 2016-12-27 09:26 | disposition home or self-care (01) | DRG 293 ==
LOC: C.MED 12:12
PROVIDERS: ADMIT Internal Medicine; ATTEND Internal Medicine
DX: I11.0 Hypertensive heart disease with heart failure (principal); I50.33 Acute on chronic diastolic (congestive) heart failure; I45.10 Unspecified right bundle-branch block; I44.0 Atrioventricular block, first degree; I25.10 Atherosclerotic heart disease of native coronary artery without angina pectoris; Z95.1 Presence of aortocoronary bypass graft; E78.5 Hyperlipidemia, unspecified; H40.9 Unspecified glaucoma; I48.0 Paroxysmal atrial fibrillation; E11.40 Type 2 diabetes mellitus with diabetic neuropathy, unspecified; M19.90 Unspecified osteoarthritis, unspecified site; G25.81 Restless legs syndrome; H35.30 Unspecified macular degeneration; E03.9 Hypothyroidism, unspecified; J44.9 Chronic obstructive pulmonary disease, unspecified; Z87.891 Personal history of nicotine dependence; Z82.49 Family history of ischemic heart disease and other diseases of the circulatory system; Z88.8 Allergy status to other drugs, medicaments and biological substances; Z79.899 Other long term (current) drug therapy; Z79.82 Long term (current) use of aspirin; Z79.4 Long term (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; Z90.49 Acquired absence of other specified parts of digestive tract; Z96.653 Presence of artificial knee joint, bilateral; R06.09 Other forms of dyspnea

== ENCOUNTER → 2017-01-02 | Outpatient (CLI) | payer OTHER, MEDICARE ==
[~2017-01-02] MED LIST changes: +BMX1 PO; -BUME1TAB PO; +LOSA1TAB PO; +SPR25 PO
[2017-01-02 15:47] LABS: BLOOD UREA NITROGEN 34 mg/dl (7-18); CALCIUM 9.8 mg/dl (8.5-10.1); CARBON DIOXIDE 33 mmol/L (21-32); CHLORIDE 99 mmol/L (98-107); GLUCOSE 80 mg/dl (70-99); SODIUM 139 mmol/L (136-145)
== END | disposition home or self-care (01) ==
LOC: C.LABSPEC 15:06
PROVIDERS: ATTEND Internal Medicine
DX: I50.9 Heart failure, unspecified (principal); N18.9 Chronic kidney disease, unspecified

== ENCOUNTER → 2017-01-16 | Outpatient (CLI) | payer OTHER, MEDICARE ==
[2017-01-16 13:33] LABS: BLOOD UREA NITROGEN 20 mg/dl (7-18); BUN/CREATININE RATIO 13.6 (10-20); CALCIUM 9.2 mg/dl (8.5-10.1); CARBON DIOXIDE 30 mmol/L (21-32); CHLORIDE 104 mmol/L (98-107); GLUCOSE 114 mg/dl (70-99); POTASSIUM 4.2 mmol/L (3.5-5.1); SODIUM 141 mmol/L (136-145)
== END | disposition home or self-care (01) ==
LOC: C.LABSPEC 12:28
PROVIDERS: ATTEND Internal Medicine
DX: I50.9 Heart failure, unspecified (principal)

== ENCOUNTER → 2017-01-31 | Outpatient (CLI) | payer OTHER, MEDICARE ==
[2017-01-31 15:06] LABS: BLOOD UREA NITROGEN 27 mg/dl (7-18); CALCIUM 9.4 mg/dl (8.5-10.1); CARBON DIOXIDE 30 mmol/L (21-32); CHLORIDE 103 mmol/L (98-107); GLUCOSE 177 mg/dl (70-99); MAGNESIUM 2.4 mg/dl (1.8-2.4); POTASSIUM 4.5 mmol/L (3.5-5.1); SODIUM 138 mmol/L (136-145)
== END | disposition home or self-care (01) ==
LOC: C.LABSPEC 14:44
PROVIDERS: ATTEND Internal Medicine
DX: I10 Essential (primary) hypertension (principal); I25.10 Atherosclerotic heart disease of native coronary artery without angina pectoris; R94.4 Abnormal results of kidney function studies

== ENCOUNTER → 2017-02-13 | Outpatient (CLI) | payer OTHER, MEDICARE ==
[2017-02-13 13:25] LABS: BLOOD UREA NITROGEN 27 mg/dl (7-18); BUN/CREATININE RATIO 15.8 (10-20); CARBON DIOXIDE 31 mmol/L (21-32); CHLORIDE 104 mmol/L (98-107); GLUCOSE 150 mg/dl (70-99); MAGNESIUM 2.2 mg/dl (1.8-2.4); POTASSIUM 3.9 mmol/L (3.5-5.1); SODIUM 140 mmol/L (136-145)
== END | disposition home or self-care (01) ==
LOC: C.LABSPEC 12:30
PROVIDERS: ATTEND Internal Medicine Cardiovascular Disease
DX: I50.30 Unspecified diastolic (congestive) heart failure (principal); R06.09 Other forms of dyspnea; R60.9 Edema, unspecified; I12.9 Hypertensive chronic kidney disease with stage 1 through stage 4 chronic kidney disease, or unspecified chronic kidney disease; N18.3 Chronic kidney disease, stage 3 (moderate)

== ENCOUNTER → 2017-02-21 | Outpatient (CLI) | payer OTHER, MEDICARE ==
[2017-02-21 09:46] LABS: BLOOD UREA NITROGEN 28 mg/dl (7-18); BUN/CREATININE RATIO 16.2 (10-20); CALCIUM 9.3 mg/dl (8.5-10.1); CARBON DIOXIDE 28 mmol/L (21-32); CHLORIDE 103 mmol/L (98-107); GLUCOSE 200 mg/dl (70-99); MAGNESIUM 2.1 mg/dl (1.8-2.4); POTASSIUM 3.9 mmol/L (3.5-5.1); SODIUM 139 mmol/L (136-145)
== END | disposition home or self-care (01) ==
LOC: C.LAB1850 07:02
PROVIDERS: ATTEND Internal Medicine Cardiovascular Disease
DX: I25.10 Atherosclerotic heart disease of native coronary artery without angina pectoris (principal); I35.0 Nonrheumatic aortic (valve) stenosis; N18.3 Chronic kidney disease, stage 3 (moderate)

== ENCOUNTER → 2017-08-24 | Outpatient (CLI) | payer OTHER, MEDICARE ==
[~2017-08-24] MED LIST changes: -DIPH1TAB PO; +DIPH1TAB87 PO
[2017-08-24 18:44] LABS: BLOOD UREA NITROGEN 52 mg/dl (7-18); CALCIUM 9.2 mg/dl (8.5-10.1); CARBON DIOXIDE 30 mmol/L (21-32); CREATININE 2.42 mg/dl (0.60-1.40); GLUCOSE 169 mg/dl (70-99); POTASSIUM 4.5 mmol/L (3.5-5.1); SODIUM 136 mmol/L (136-145)
== END | disposition home or self-care (01) ==
LOC: C.LABSPEC 17:53
PROVIDERS: ATTEND Internal Medicine
DX: I50.9 Heart failure, unspecified (principal)

== ENCOUNTER → 2017-09-07 | Outpatient (CLI) | payer OTHER, MEDICARE ==
[~2017-09-07] MED LIST changes: +POTA-639 PO; -POTA20TA16 PO
[2017-09-07 18:31] LABS: BLOOD UREA NITROGEN 56 mg/dl (7-18); CARBON DIOXIDE 30 mmol/L (21-32); CREATININE 2.54 mg/dl (0.60-1.40); GLUCOSE 300 mg/dl (70-99); POTASSIUM 4.3 mmol/L (3.5-5.1); SODIUM 132 mmol/L (136-145)
== END | disposition home or self-care (01) ==
LOC: C.LABSPEC 17:33
PROVIDERS: ATTEND Internal Medicine
DX: I50.9 Heart failure, unspecified (principal)

== ENCOUNTER → 2017-09-22 | Outpatient (CLI) | payer MEDICARE, OTHER ==
--- NOTE | 2017-09-22 08:24 | DIAGNOSTIC IMAGING REPORT ---
(RENAL)RETROPERITON COMP HISTORY: 81 years-old Male N17.9 JUDI (acute kidney injury) COMPARISON: None available TECHNIQUE: Multiple real-time sonographic images of the kidneys and urinary bladder were obtained assessing grayscale appearance and color flow FINDINGS: Right kidney measures 11 cm in length. Mild cortical thinning is noted throughout the right kidney without renal calculi, hydronephrosis or suspicious mass lesions. Enlarged prostate causes mass effect upon the base of the urinary bladder. Thickened bladder guadarrama with trabeculation and small bladder diverticulum. Left ureteral jet noted. The right ureteral jet is not identified. Left kidney measures 11 cm in length. There is a hypoechoic structure with increased through transmission and no internal vascularity identified involving the inferior pole left kidney, 2.0 x 1.8 x 1.8 cm. No left-sided renal calculi or hydronephrosis. Mild diffuse renal cortical thinning also noted on the left. IMPRESSION: 1. No renal calculi or hydronephrosis. 2. Mild cortical thinning is noted bilaterally. 3. Prostamegaly with evidence of chronic bladder outlet obstruction. 4. 2.0 cm hypoechoic lesion of the inferior pole left kidney measuring up to 2.0 cm suggests renal cyst. The above report was generated using voice recognition software. It may contain grammatical, syntax or spelling errors. Electronically signed by: James Fernández M.D. 09/22/2017 8:23 AM Dictated Date/Time: 09/22/2017 8:19 AM
[2017-09-22 09:36] LABS: HEMATOCRIT 36.3 % (42-52); HEMOGLOBIN 12.5 g/dL (14.0-18.0); MEAN CELL VOLUME 92.8 fL (80-100); MEAN CORPUSCULAR HGB CONC 34.4 g/dl (32-36); MEAN PLATELET VOLUME 9.8 fL (7.4-10.4); PLATELET COUNT 152 K/uL (130-400); RED CELL DISTRIBUTION WIDTH CV 13.4 % (11.5-14.5); RED CELL DISTRIBUTION WIDTH SD 45.6 fL (36.4-46.3); WHITE BLOOD COUNT 7.41 K/uL (4.8-10.8)
[2017-09-22 10:07] LABS: ALBUMIN 3.6 gm/dl (3.4-5.0); BLOOD UREA NITROGEN 32 mg/dl (7-18); CALCIUM 8.7 mg/dl (8.5-10.1); CARBON DIOXIDE 29 mmol/L (21-32); GLUCOSE 266 mg/dl (70-99); POTASSIUM 4.2 mmol/L (3.5-5.1); SODIUM 136 mmol/L (136-145)
[2017-09-22 10:10] LABS: PHOSPHORUS 3.3 mg/dl (2.5-4.9); TRANSFERRIN 234 mg/dl (200-360)
== END | disposition home or self-care (01) ==
LOC: C.ULTR 07:08
PROVIDERS: ATTEND Internal Medicine Nephrology
DX: N17.9 Acute kidney failure, unspecified (principal); D64.9 Anemia, unspecified; E55.9 Vitamin D deficiency, unspecified; N40.1 Benign prostatic hyperplasia with lower urinary tract symptoms

== ENCOUNTER 2017-12-18 21:08 | Inpatient (IN) | payer OTHER, MEDICARE ==
[~2017-12-18] VITALS: Ht 167.6 cm; Wt 92.6 kg
[~2017-12-18 21:08] MED LIST changes: -CLON0.5T3 PO; +GABA-112 PO; +HYDR-5688 PO; +KLN/5 PO; +OXYC-57 PO; +SNTO30 TOP; +SPIR25TA6 PO; -SPR25 PO
--- NOTE | 2017-12-18 21:37 | EMERGENCY ROOM VISIT NOTE ---
History Report prepared by Ryan: Winston Zimmerman Under the Supervision of: Dr. Juan Carlos Nelson M.D. First contact with patient: 21:12 Chief Complaint: CHEST PAIN Stated Complaint: CONFUSION,CHEST PAIN,SOB History of Present Illness The patient is an 82 year old male who presents to the Emergency Room with complaints of worsening confusion. The patient's at bedside notes that the patient has bee exhibiting confusion over the past couple of days, but states that it worsened acutely this evening. The also adds that he is currently week as well and has continued to decline since she got home from work. The notes that he does usually walk with a walker, but he has not been amble to ambulate well as of late. The patient told his that he vomited today and was having chest pains at some point last week. The patient follows with a dump motorman due to a wound in the right foot. He has also visited with Dr. Ramirez for the foot to see if he could improve blood flow to the foot. The patient's mentioned that the patient recently had his Gabapentin dosage increased and has been started on Oxycodone as well. The patient currently denies any chest pain or shortness of breath. The mentioned that the patient has fallen over the past couple of weeks, but did not ever mention hitting his head. The patient is not on any blood thinners. Source of History: patient History Limited By: AMS Onset: Past Couple of days Position: head (Confusion, AMS) Quality: other (Confusion/AMS) Timing: worsening Associated Symptoms: + weakness, No chest pain, No SOB Review of Systems See HPI for pertinent positives & negatives. A total of 10 systems reviewed and were otherwise negative. Past Medical & Surgical Medical Problems: (1) Zveuc-tz-gepfeto kidney injury (2) Angioplasty of blood vessel (3) Appendectomy (4) Asthma (5) back surgery (6) Benign hypertension (7) Bronchitis (8) CHF,CAD (9) Cholecystectomy (10) Coronary artery disease (11) Diabetes mellitus type 1 (12) Hypercholesterolemia (13) Kidney stones (14) Pneumonia (15) Replacement of total knee joint Old medical records were reviewed. Nurse's notes were reviewed and I agree with. Family History Heart disease Social History Smoking Status: Former Smoker Alcohol Use: none Marital Status: Housing Status: lives with significant other Occupation Status: retired Current/Historical Medications Scheduled Ascorbic Acid (Ascorbic Acid), 1,000 MG PO DAILY Aspirin (Aspirin Ec), 81 MG PO BID Budesonide/Formoterol Fumarate (Symbicort 160/4.5 Inhaler ), 2 PUFFS INH BID Bumetanide (Bumetanide), 2 MG PO TID Calcium Carbonate-Vitamin D (Calcium 600 + D), 1 TAB PO DAILY Clonazepam (Klonopin), 0.5 MG PO QAM Clonazepam (Klonopin), 1 MG PO HS Diphenhydramine Hcl (Benadryl Allergy), 50 MG PO BID Docusate Sodium (Colace), 200 MG PO BID Gabapentin (Neurontin), 200 MG PO BID Insulin Human NPH (Novolin N), 55 UNITS SQ QAM Insulin Human NPH (Novolin N), 50 UNITS SQ QPM Levothyroxine Sodium (Levothyroxine Sodium), 88 MCG PO QAM Losartan Potassium (Cozaar), 25 MG PO DAILY Metoprolol Tartrate (Lopressor) (Lopressor), 75 MG PO BID Multiple Vitamins W/ Minerals (Ocuvite Adult 50+), 1 CAP PO DAILY Multivitamin (Multivitamin), 1 TAB PO QAM Pantoprazole (Protonix), 40 MG PO QAM Potassium Ext Rel (Klor-Con), 20 MEQ PO TID Simvastatin (Zocor), 20 MG PO HS Spironolactone (Aldactone), 25 MG PO BID Tiotropium Hope (Spiriva Handihaler), 1 CAP INH QAM Scheduled PRN Albuterol Hfa (Ventolin Hfa), 2 PUFFS INH Q6H PRN for Shortness of Breath Oxycodone/Acetaminophen 5MG/325MG (Percocet 5MG/325MG), 1 TABLET PO Q6H PRN for Pain Polyethylene Glycol 3350 (Miralax), 17 GM PO DAILY PRN for Constipation Allergies Coded Allergies: Ropinirole (Verified Adverse Reaction, Intermediate, CHANGE IN MENTAL STATUS, 11/22/16) Physical Exam Vital Signs Date Time Temp Pulse Resp B/P (MAP) Pulse Ox O2 Delivery O2 Flow Rate FiO2 12/19/17 00:43 50 18 142/65 99 12/19/17 00:00 49 18 138/62 97 Room Air 12/18/17 23:00 47 18 115/65 96 Room Air 12/18/17 21:31 49 12/18/17 21:25 95 Room Air 12/18/17 21:25 94 Room Air 12/18/17 21:13 36.7 40 20 103/38 98 Room Air Physical Exam General: Chronically-ill appearing elderly male in no acute distress. Alert to person, seems confused about place. HEENT: Normal cephalic atraumatic. Pupils are equal round and reactive to light. Extraocular movements are intact. Oropharynx is pink with moist mucous membranes. No swelling of the mouth lips or tongue. Neck: Supple with a midline trachea. No meningeal signs or stiffness, no JVD or bruits. No Stridor. Chest: Clear to auscultation bilaterally. No wheezes or rhonchi. No increased work of breathing. Heart: regular rate and rhythm. Abdomen: Soft nontender, nondistended without rebound guarding or rigidity. Extremities: No cyanosis clubbing or edema. No calf tenderness or assymetry. There is an ulcer on the lateral aspect of the right fifth toe. No significant redness Spine/Back. Non tender to palpation. No CVA tenderness Skin: Good turgor without rashes. Neurologic exam: Cranial nerves two through 12 are intact. Motor and sensation are intact and symmetrical throughout. Medical Decision & Procedures ER Provider Diagnostic Interpretation: Radiology results as stated below per my review and radiologist interpretation: CHEST ONE VIEW PORTABLE CLINICAL HISTORY: CHEST PAIN dyspnea COMPARISON STUDY: 12/23/2016 FINDINGS: The bones soft tissues and hemidiaphragms are normal. The cardiomediastinal silhouette is normal. The lungs are clear. The pulmonary vasculature is normal. IMPRESSION: Negative chest. The above report was generated using voice recognition software. It may contain grammatical, syntax or spelling errors. Electronically signed by: Jared Bhardwaj M.D. 12/18/2017 10:09 PM Dictated Date/Time: 12/18/2017 10:09 PM HEAD WITHOUT CONTRAST (CT) CT DOSE: 537.48 mGy.cm HISTORY: Mental status change increasing confusion TECHNIQUE: Multiaxial CT images of the head were performed without the use of intravenous contrast. A dose lowering technique was utilized adhering to the principles of ALARA. Comparison: 12/13/2013 Findings: The paranasal sinuses and mastoid air cells are clear. The calvarium and skull base are intact. The ventricles and sulci are within normal limits. There is no mass, hematoma, midline shift, or acute infarct. Impression: No acute intracranial abnormality. The above report was generated using voice recognition software. It may contain grammatical, syntax or spelling errors. Electronically signed by: Jared Bhardwaj M.D. 12/18/2017 10:12 PM Dictated Date/Time: 12/18/2017 10:[address] abdomen and pelvis without contrast Nonobstructing left renal stone. No obstructing ureteral stones. Distended bladder, mild thickening in trabeculation, could be post obstructive uropathy. Cardiomegaly and surgical changes. Cholecystectomy. Nonspecific thickening or nodule near the right lobe of the liver. Appendix not identified. Fat-containing right inguinal hernia. Surgical changes and hardware in the spine. Radiologist: Sreedhar Thompson M.D. Laboratory Results 12/18/17 21:30 Red Blood Count 3.51, Mean Corpuscular Volume 94.3, Mean Corpuscular Hemoglobin 31.3, Mean Corpuscular Hemoglobin Concent 33.2, Mean Platelet Volume 9.6, Neutrophils (%) (Auto) 52.8, Lymphocytes (%) (Auto) 33.6, Monocytes (%) (Auto) 7.8, Eosinophils (%) (Auto) 5.1, Basophils (%) (Auto) 0.3, Neutrophils # (Auto) 3.81, Lymphocytes # (Auto) 2.42, Monocytes # (Auto) 0.56, Eosinophils # (Auto) 0.37, Basophils # (Auto) 0.02 12/18/17 21:30 Test 12/18/17 21:30 12/18/17 21:39 12/18/17 21:48 White Blood Count 7.21 K/uL (4.8-10.8) Red Blood Count 3.51 M/uL (4.7-6.1) Hemoglobin 11.0 g/dL (14.0-18.0) Hematocrit 33.1 % (42-52) Mean Corpuscular Volume 94.3 fL (80-100) Mean Corpuscular Hemoglobin 31.3 pg (25-34) Mean Corpuscular Hemoglobin Concent 33.2 g/dl (32-36) Platelet Count 164 K/uL (130-400) Mean Platelet Volume 9.6 fL (7.4-10.4) Neutrophils (%) (Auto) 52.8 % Lymphocytes (%) (Auto) 33.6 % Monocytes (%) (Auto) 7.8 % Eosinophils (%) (Auto) 5.1 % Basophils (%) (Auto) 0.3 % Neutrophils # (Auto) 3.81 K/uL (1.4-6.5) Lymphocytes # (Auto) 2.42 K/uL (1.2-3.4) Monocytes # (Auto) 0.56 K/uL (0.11-0.59) Eosinophils # (Auto) 0.37 K/uL (0-0.5) Basophils # (Auto) 0.02 K/uL (0-0.2) RDW Standard Deviation 47.1 fL (36.4-46.3) RDW Coefficient of Variation 13.7 % (11.5-14.5) Immature Granulocyte % (Auto) 0.4 % Immature Granulocyte # (Auto) 0.03 K/uL (0.00-0.02) Prothrombin Time 10.7 SECONDS (9.0-12.0) Prothromb Time International Ratio 1.0 (0.9-1.1) Activated Partial Thromboplast Time 23.8 SECONDS (21.0-31.0) Partial Thromboplastin Ratio 0.9 Anion Gap 8.0 mmol/L (3-11) Estimated GFR () 14.6 Estimated GFR (Non- 12.6 BUN/Creatinine Ratio 23.6 (10-20) Bedside Glucose 101 mg/dl (70-99) Calcium Level 8.8 mg/dl (8.5-10.1) Total Bilirubin 0.3 mg/dl (0.2-1) Direct Bilirubin 0.1 mg/dl (0-0.2) Aspartate Amino Transf (AST/SGOT) 28 U/L (15-37) Alanine Aminotransferase (ALT/SGPT) 28 U/L (12-78) Alkaline Phosphatase 70 U/L (45-117) Total Creatine Kinase 82 U/L (39-308) Creatine Kinase MB 2.3 ng/ml (0.5-3.6) Creatine Kinase MB Ratio (0-3.0) Pro-B-Type Natriuretic Peptide 726 pg/ml (0-1800) Total Protein 7.1 gm/dl (6.4-8.2) Albumin 3.6 gm/dl (3.4-5.0) Lipase 194 U/L (73-393) Bedside Troponin I < 0.030 ng/ml (0-0.045) Bedside Lactic Acid Venous 1.01 mmol/L (0.90-1.70) Laboratory studies as stated above per my review. ECG Per My Interpretation Indication: chest pain Rate (beats per minute): 48 Rhythm: sinus bradycardia Findings: 1st degree AV block, RBBB, other (LAD) Comparison ECG Date: 12/25/2016 Change: no significant change ED Course 2117: Past medical records reviewed. The patient was evaluated in room B10, and a complete history and physical examination were performed. 7: I discussed the case with Dr. Rosales - [facility] Hospitalist. He will evaluate the patient for further intervention. Medical Decision Differential Diagnosis includes; cardiac disease, CHF, sepsis, medication side effect, electrolyte or metabolic abnormality. This patient comes in as described above. He was placed in room B 10. Brought in by his after she said that he had chest pain over the last couple days intermittently, he denies any present he is also had increasing confusion. He also has an ulcer on his right foot is been seen by the wound care center and has had issues with renal insufficiency. He is afebrile here and has bradycardia but that appears to be baseline. he is normotensive. IV access established multiple blood testing was obtained. he has no fever or white count or elevated lactic acid or anything to suggest sepsis. There is no source of infection with the exception of possibly his toe. He did have a bone scan recently. Chest x-ray was clear and did not show any congestive heart failure. EKG does not show any acute arrhythmia or anything to suggest acute coronary syndrome. Head CT was unremarkable. His creatinine is elevated at 4.1 compared to baseline and this may be from overdiuresis or dehydration or obstructive uropathy. I did order CAT scan of his abdomen as well. I do think he needs to be admitted for further treatment and evaluation of his renal failure as well as evaluation of his chest pain and confusion. In regards to his confusion, he seems to have gotten a lot better and I think that some this may be medication related. He will be admitted/observed. His CAT scan did come back with a distended bladder and there could be some postobstructive changes. By that point, the patient was already upstairs I did discuss these findings with the resident Dr. Saini and recommended that the patient may need a Lopez catheter. The patient was admitted. Medication Reconcilliation Current Medication List: was personally reviewed by me Blood Pressure Screening Patient's blood pressure: Normal blood pressure Consults Time Called: 2330 Consulting Physician: Dr. Bobby MEEHAN Hospitalist Returned Call: [phone] I discussed the case with Dr. Bobby MEEHAN Hospitalist. He will evaluate the patient for further intervention. Impression Primary Impression: Renal failure Additional Impressions: Chest pain Altered mental status Scribe Attestation The scribe's documentation has been prepared under my direction and personally reviewed by me in its entirety. I confirm that the note above accurately reflects all work, treatment, procedures, and medical decision making performed by me. Departure Information Dispostion Being Evaluated By Hospitalist Referrals John Norman M.D. (PCP) Patient Instructions My [facility] Health Problem Qualifiers
[2017-12-18 21:51] LABS: BASO % 0.3 %; BASO ABS # 0.02 K/uL (0-0.2); EOS % 5.1 %; EOS ABS # 0.37 K/uL (0-0.5); HEMATOCRIT 33.1 % (42-52); IG# 0.03 K/uL (0.00-0.02); LYMPH % 33.6 %; LYMPH ABS # 2.42 K/uL (1.2-3.4); MEAN CELL VOLUME 94.3 fL (80-100); MEAN CORPUSCULAR HEMOGLOBIN 31.3 pg (25-34); MEAN CORPUSCULAR HGB CONC 33.2 g/dl (32-36); MEAN PLATELET VOLUME 9.6 fL (7.4-10.4); MONO % 7.8 %; MONO ABS # 0.56 K/uL (0.11-0.59); NEUT % 52.8 %; NEUT ABS # 3.81 K/uL (1.4-6.5); PLATELET COUNT 164 K/uL (130-400); RED CELL DISTRIBUTION WIDTH CV 13.7 % (11.5-14.5); RED CELL DISTRIBUTION WIDTH SD 47.1 fL (36.4-46.3); WHITE BLOOD COUNT 7.21 K/uL (4.8-10.8)
[2017-12-18 22:02] LABS: PTT PATIENT 23.8 SECONDS (21.0-31.0)
[2017-12-18] MEDS ORDERED: CALC-20 PO (22:05)
[2017-12-18] MEDS ORDERED: SPIR25TA5 PO (22:05)
[2017-12-18] MEDS ORDERED: POLY335019 PO (22:05)
[2017-12-18] MEDS ORDERED: LEVO88TA3 PO (22:05)
[2017-12-18] MEDS ORDERED: MULTCAP94 PO (22:10)
--- NOTE | 2017-12-18 22:10 | DIAGNOSTIC IMAGING REPORT ---
CHEST ONE VIEW PORTABLE CLINICAL HISTORY: CHEST PAIN dyspnea COMPARISON STUDY: 12/23/2016 FINDINGS: The bones soft tissues and hemidiaphragms are normal. The cardiomediastinal silhouette is normal. The lungs are clear. The pulmonary vasculature is normal. IMPRESSION: Negative chest. The above report was generated using voice recognition software. It may contain grammatical, syntax or spelling errors. Electronically signed by: Jared Bhardwaj M.D. 12/18/2017 10:09 PM Dictated Date/Time: 12/18/2017 10:09 PM
--- NOTE | 2017-12-18 22:13 | DIAGNOSTIC IMAGING REPORT ---
HEAD WITHOUT CONTRAST (CT) CT DOSE: 537.48 mGy.cm HISTORY: Mental status change increasing confusion TECHNIQUE: Multiaxial CT images of the head were performed without the use of intravenous contrast. A dose lowering technique was utilized adhering to the principles of ALARA. Comparison: 12/13/2013 Findings: The paranasal sinuses and mastoid air cells are clear. The calvarium and skull base are intact. The ventricles and sulci are within normal limits. There is no mass, hematoma, midline shift, or acute infarct. Impression: No acute intracranial abnormality. The above report was generated using voice recognition software. It may contain grammatical, syntax or spelling errors. Electronically signed by: Jared Bhardwaj M.D. 12/18/2017 10:12 PM Dictated Date/Time: 12/18/2017 10:11 PM
[2017-12-18 22:20] LABS: ALBUMIN 3.6 gm/dl (3.4-5.0); ALKALINE PHOSPHATASE 70 U/L (45-117); ALT/SGPT 28 U/L (12-78); AST/SGOT 28 U/L (15-37); BLOOD UREA NITROGEN 97 mg/dl (7-18); CALCIUM 8.8 mg/dl (8.5-10.1); CARBON DIOXIDE 24 mmol/L (21-32); CKMB 2.3 ng/ml (0.5-3.6); CREATININE 4.12 mg/dl (0.60-1.40); GLUCOSE 85 mg/dl (70-99); LIPASE 194 U/L (73-393); POTASSIUM 5.2 mmol/L (3.5-5.1); SODIUM 140 mmol/L (136-145); TOTAL PROTEIN 7.1 gm/dl (6.4-8.2)
--- NOTE | 2017-12-18 23:56 | History and Physical ---
History & Physical Date & Time of Service: Dec 18, 2017 at 23:56 Chief Complaint: Confusion,Chest Pain,Sob Primary Care Physician: John Norman M.D. History of Present Illness Source: patient, family, hospital records 82 yo M w/ PMHx of CKD, CAD /VA s/p CABG, Diastolic HF, Paroxysmal Afib, T2DM , Diabetic neuropathy HTN, GERD, Hypothyroidism presenting with h/o 2 day history of progressive confusion (intermittently within last 2 months). Patients reports worsening within 2 days, including being disoriented. He also seems for fatigued, somnolent, generalized weakness ( ambulated with walker with difficulty due to neuropathy.) He also has a right 5th toe wound x approximately 3 months currently seen by wound care, hot box checker. Patient also reports episode of chest pain last week ( does not remember how many day ago) when he was getting form bed. Pain lasted for couple hours and resolved spontaneously. no medication taken. Currently no further chest pain. He does reports Nausea today. He Denies fevers, chills, abdominal pain, diarrhea. He was recently started on Percocet 5/325 q6h prn for LE pain/ right foot pain, ( since December 13) He also had his Gabapentin dose adjusted recently with increased dose form 100 mg bid to 200mg bid. In the ED, he arrived afebrile, bradycardiac in 40's ( baseline for him0 normotensive, saturating well on room air. Patient was anemic at 11.3/3.1, K of 5.2, BUN/Cr 97/4.12 ( baseline 1.5-2.5) , Head CT unremarkable. CT abdomen/ pelvis showed bladder distension mild thickening/trabeculation possibly due to post-obstructive uropathy. Past Medical/Surgical History PastMedHx: CKD CAD VA( 1979 and 1989) Diastolic Heart Failure Paroxysmal atrial fibrillation S/P epicardial right radiofrequency ablation Type 2 diabetes mellitus Hypertension. Hyperlipidemia Peripheral neuropathy. Restless leg syndrome Mild obstructive pulmonary disease Hypothyroidism SurgHx: Metallic implant (lower jaw) - 30 years ago. s/p removal of his left first rib Cholecystectomy Appendectomy Spinal stenosis with disc herniation of the lumbar spine s/p surgery in 2003 Right total knee arthroplasty in 2008. Left total knee arthroplasty in April of 2015 Hypothyroidism. Compensated. Right cataract surgery on 09/12/2016 Left cataract surgery on 10/10/2016 Episode of herpes zoster Medical Problems: (1) Acute bronchopneumonia (2) [id number] kidney injury (3) Angioplasty of blood vessel (4) Appendectomy (5) Asthma (6) back surgery (7) Benign hypertension (8) Bronchitis (9) CHF,CAD (10) Cholecystectomy (11) Coronary artery disease (12) Diabetes mellitus type 1 (13) Headache (14) Herpes zoster (15) Herpes zoster (16) Hypercholesterolemia (17) Hypertension, accelerated (18) Kidney stones (19) Left Knee DJD (20) Persistent cough (21) Pneumonia (22) Replacement of total knee joint (23) Rupture of left distal biceps tendon Family History Heart disease Social History Smoking Status: Former Smoker Alcohol Use: none Drug Use: none Marital Status: Housing status: lives with family Occupational Status: retired Immunizations History of Influenza Vaccine: Yes History of Tetanus Vaccine?: UTD Tetanus Immunization Date: Jul 24, 2003 History of Pneumococcal: Yes Pneumococcal Date: October 12, 2011 History of Hepatitis B Vaccine: Unknown Allergies Coded Allergies: Ropinirole (Verified Adverse Reaction, Intermediate, CHANGE IN MENTAL STATUS, 11/22/16) Home Medications Scheduled Ascorbic Acid (Ascorbic Acid), 1,000 MG PO DAILY Aspirin (Aspirin Ec), 81 MG PO BID Budesonide/Formoterol Fumarate (Symbicort 160/4.5 Inhaler ), 2 PUFFS INH BID Bumetanide (Bumetanide), 2 MG PO TID Calcium Carbonate-Vitamin D (Calcium 600 + D), 1 TAB PO DAILY Clonazepam (Klonopin), 0.5 MG PO QAM Clonazepam (Klonopin), 1 MG PO HS Diphenhydramine Hcl (Benadryl Allergy), 50 MG PO BID Docusate Sodium (Colace), 200 MG PO BID Gabapentin (Neurontin), 200 MG PO BID Insulin Human NPH (Novolin N), 55 UNITS SQ QAM Insulin Human NPH (Novolin N), 50 UNITS SQ QPM Levothyroxine Sodium (Levothyroxine Sodium), 88 MCG PO QAM Losartan Potassium (Cozaar), 25 MG PO DAILY Metoprolol Tartrate (Lopressor) (Lopressor), 75 MG PO BID Multiple Vitamins W/ Minerals (Ocuvite Adult 50+), 1 CAP PO DAILY Multivitamin (Multivitamin), 1 TAB PO QAM Pantoprazole (Protonix), 40 MG PO QAM Potassium Ext Rel (Klor-Con), 20 MEQ PO TID Simvastatin (Zocor), 20 MG PO HS Spironolactone (Aldactone), 25 MG PO BID Tiotropium [place] (Spiriva Handihaler), 1 CAP INH QAM Scheduled PRN Albuterol Hfa (Ventolin Hfa), 2 PUFFS INH Q6H PRN for Shortness of Breath Oxycodone/Acetaminophen 5MG/325MG (Percocet 5MG/325MG), 1 TABLET PO Q6H PRN for Pain Polyethylene Glycol 3350 (Miralax), 17 GM PO DAILY PRN for Constipation Review of Systems Constitutional: + weakness, + fatigue, No fever, No chills Respiratory: No cough, No sputum, No shortness of breath Cardiovascular: No chest pain, No edema, No palpitations Abdomen: + nausea, No pain, No vomiting, No diarrhea Musculoskeletal: No swelling, No calf pain Genitourinary - Male: No hematuria, No dysuria, No urinary frequency Neurologic: + memory loss, + balance problems, No numbness/tingling Integumentary: No rash, No itch Physical Exam Vital Signs Date Time Temp Pulse Resp B/P (MAP) Pulse Ox O2 Delivery O2 Flow Rate FiO2 12/18/17 23:00 47 18 115/65 96 Room Air 12/18/17 21:31 49 12/18/17 21:25 95 Room Air 12/18/17 21:25 94 Room Air 12/18/17 21:13 36.7 40 20 103/38 98 Room Air General Appearance: WD/WN, no apparent distress Head: normocephalic, atraumatic Eyes: normal inspection, PERRL, sclerae normal ENT: hearing grossly normal, pharynx normal Neck: supple, no adenopathy, no carotid bruits Respiratory/Chest: chest non-tender, lungs clear Cardiovascular: regular rate, rhythm, no edema, no murmur Abdomen/GI: normal bowel sounds, non tender, soft, no organomegaly Back: normal inspection, normal range of motion 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, no motor/sensory deficits, alert, normal mood/affect, + pertinent finding (Oriented to person, place only) Skin: + pertinent finding (Right 5th toe ulcer, healed, non-purrulent, surrounding erythema, swelling, tender) Diagnostics Laboratory Results Results Past 24 Hours Test 12/18/17 21:30 12/18/17 21:39 12/18/17 21:48 Range/Units White Blood Count 7.21 4.8-10.8 K/uL Red Blood Count 3.51 4.7-6.1 M/uL Hemoglobin 11.0 14.0-18.0 g/dL Hematocrit 33.1 42-52 % Mean Corpuscular Volume 94.3 80-100 fL Mean Corpuscular Hemoglobin 31.3 25-34 pg Mean Corpuscular Hemoglobin Concent 33.2 32-36 g/dl Platelet Count 164 130-400 K/uL Mean Platelet Volume 9.6 7.4-10.4 fL Neutrophils (%) (Auto) 52.8 % Lymphocytes (%) (Auto) 33.6 % Monocytes (%) (Auto) 7.8 % Eosinophils (%) (Auto) 5.1 % Basophils (%) (Auto) 0.3 % Neutrophils # (Auto) 3.81 1.4-6.5 K/uL Lymphocytes # (Auto) 2.42 1.2-3.4 K/uL Monocytes # (Auto) 0.56 0.11-0.59 K/uL Eosinophils # (Auto) 0.37 0-0.5 K/uL Basophils # (Auto) 0.02 0-0.2 K/uL RDW Standard Deviation 47.1 36.4-46.3 fL RDW Coefficient of Variation 13.7 11.5-14.5 % Immature Granulocyte % (Auto) 0.4 % Immature Granulocyte # (Auto) 0.03 0.00-0.02 K/uL Prothrombin Time 10.7 9.0-12.0 SECONDS Prothromb Time International Ratio 1.0 0.9-1.1 Activated Partial Thromboplast Time 23.8 21.0-31.0 SECONDS Partial Thromboplastin Ratio 0.9 Sodium Level 140 136-145 mmol/L Potassium Level 5.2 3.5-5.1 mmol/L Chloride Level 108 98-107 mmol/L Carbon Dioxide Level 24 21-32 mmol/L Anion Gap 8.0 3-11 mmol/L Blood Urea Nitrogen 97 7-18 mg/dl Creatinine 4.12 0.60-1.40 mg/dl Estimated GFR () 14.6 Estimated GFR (Non- 12.6 BUN/Creatinine Ratio 23.6 10-20 Bedside Glucose 101 70-99 mg/dl Random Glucose 85 70-99 mg/dl Calcium Level 8.8 8.5-10.1 mg/dl Total Bilirubin 0.3 0.2-1 mg/dl Direct Bilirubin 0.1 0-0.2 mg/dl Aspartate Amino Transf (AST/SGOT) 28 15-37 U/L Alanine Aminotransferase (ALT/SGPT) 28 12-78 U/L Alkaline Phosphatase 70 45-117 U/L Total Creatine Kinase 82 39-308 U/L Creatine Kinase MB 2.3 0.5-3.6 ng/ml Creatine Kinase MB Ratio 0-3.0 Pro-B-Type Natriuretic Peptide 726 0-1800 pg/ml Total Protein 7.1 6.4-8.2 gm/dl Albumin 3.6 3.4-5.0 gm/dl Lipase 194 73-393 U/L Bedside Troponin I < 0.030 0-0.045 ng/ml Bedside Lactic Acid Venous 1.01 0.90-1.70 mmol/L Microbiology Results 12/18/17 Blood Culture, Received Pending 12/18/17 Blood Culture, Received Pending Diagnostic Radiology HEAD WITHOUT CONTRAST (CT) CT DOSE: 537.48 mGy.cm HISTORY: Mental status change increasing confusion TECHNIQUE: Multiaxial CT images of the head were performed without the use of intravenous contrast. A dose lowering technique was utilized adhering to the principles of ALARA. Comparison: 12/13/2013 Findings: The paranasal sinuses and mastoid air cells are clear. The calvarium and skull base are intact. The ventricles and sulci are within normal limits. There is no mass, hematoma, midline shift, or acute infarct. Impression: No acute intracranial abnormality. CHEST ONE VIEW PORTABLE CLINICAL HISTORY: CHEST PAIN dyspnea COMPARISON STUDY: 12/23/2016 FINDINGS: The bones soft tissues and hemidiaphragms are normal. The cardiomediastinal silhouette is normal. The lungs are clear. The pulmonary vasculature is normal. IMPRESSION: Negative chest. EKG Sinus bradycardia with 1st degree A-V block Rate: 48 Right bundle branch block Impression Assessment and Plan 82 yo M w/ PMHx of CKD, CAD /VA s/p CABG, Diastolic HF, Paroxysmal Afib, T2DM , Diabetic neuropathy HTN, GERD, Hypothyroidism presenting with h/o 2 day history of progressive confusion within the context of over all decline for 2 months including weakness, poor memory recall, found to have Acute on Chronic kidney injury on arrival. Progressive Confusion, Weakness - unclear etiology, possibly due to polypharmacy, recently started on higher dose of Gabapentin, recently started on Percocet. cannot rule out infection, possible source is Left 5th toe ulcer. CT head wnl, no focal neural signs, CVA less likely given onset, duration. While arriving with Acute on Chronic CKD, no significant electrolyte abnormalities that would explain. - Given possibility of infectious etiology secondary to Right toe cellulitis empirically treat with broad spectrum abc coverage with Vancomycin, Zosyn -F/u blood cultures x2 Acute on CKD ( baseline Cr 1.5 - 2.5) - arrived with Cr 5.2 - ddx: prerenal secondary to excessive diuresis vs post renal obstruction as evidences by distended bladder on CT Abdomen/ Pelvis - Hold Bumex, Hold Losartan - IV NS at 60 mls/ hr - Insert Lopez - Nephrology consulted for input Toe Ulcer: Right 5th toe -cellulitis vs osteomyelitis -F/u MRI foot -Given Diabetes will cover for pseudomonas as well -Vanc Zosyn empirically -F/u Blood cx's Chest pain - resolved - EKG without acute ischemic changes - Initial troponin negative - likely not ACS , possible angina, GERD, MSK also considered - Follow Serial troponins - Given Resting Bradycardia, Metoprolol decreased to 50mg BID from 75 mg BID Diastolic CHF, CAD - stable, does not appear to be in exacerbation - 11/12: NO LV systolic function, NO wall motion abnormalities, EF 55-60% Moderate concentric LVH, Type 1 Diastolic Dysfunction, - previously on Bumex 2mg BID at home, Hold Bumex given Elevated Cr from baseline - Continue Spironolactone 25 mg BID, Metoprolol at above dose - Metoprolol 50 mg BID as above Paroxysmal Atrial fibrillation, CAD - rate controlled with Metoprolol, dose adjusted as above given Bradycardia - no on anticoagulation -Continue ASA HLD -Zocor at home dose - F/u Lipid panel T2DM, Diabetic Neuropathy - ISS, Basal Insulin, BSG AC HS - HbA1C ordered Hypothyroidism - Synthroid Mild obstructed pulmonary Disease - evidenced on PFT in 10/2014 - stable -Continue home Albuterol INBH, Symbicort Depression/Anxiety -Klonopin at home dose DVT PPX: Heparin Disposition: Admit Telemetry PT/OT Attending addendum: I have physically seen this patient, have supervised the medical residents activities, and agree with the H&P unless as otherwise noted. Assessment and Plan: Altered mental status/confusion/generalized weakness-- Likely multifactorial, with etiologies including dehydration, right fifth toe infection, chronic upper respiratory process and other metabolic issues. The patient will be admitted to telemetry for serial cardiac enzymes, serial EKG's, cardiac rhythm monitoring and a 2-D echocardiogram with Dopplers.. JUDI on CKD/mild hyperkalemia-- Hold Bumex, spironolactone and losartan. NSS at 60 mils per hour 1 L. Consult his rn child Dr. Dixon. Right fifth toe chronic infection-- Has been seen by podiatry and wound care center. Has had a negative bone scan recently. Order MRI of right foot attention toes. Placed on vancomycin IV and Zosyn IV. Chest pain/CAD/hypertension/paroxysmal defibrillation/diastolic CHF-- Resolved episode that happened to mention for a few weeks ago. We will rule out VA as noted above. Continue metoprolol tartrate, but decrease from 75 to 50 mg p.o. twice daily due to bradycardia with heart rate reaching the mid 40s while in the ED. Remainder of orders and notes as above. Resuscitation Status VTE Prophylaxis Will order VTE Prophylaxis: Yes Social Service Consult None Apply Note Total Time: Critical Care 30 - 74 minutes Resident Tracking Resident Involvement: Resident Care Provided Care Provided: Adult Hospital Medicine
[2017-12-19] MEDS ORDERED: GLUCOSE 10 TABS/TUBE PO PRN (00:45)
[2017-12-19] MEDS ORDERED: ALBUTEROL HFA 8 GM INHALER INH PRN (00:45)
[2017-12-19] MEDS ORDERED: CARBOHYDRATES FOR HYPOGLYCEMIA PO PRN (00:45)
[2017-12-19] MEDS ORDERED: MAGNESIUM HYDROXIDE SUSP 30 ML UDC PO PRN (00:45)
[2017-12-19] MEDS ORDERED: ACETAMINOPHEN 325 MG TAB PO PRN (00:45)
[2017-12-19] MEDS ORDERED: POLYETHYLENE (MIRALAX) 17 GM PACK PO PRN (00:45)
[2017-12-19] MEDS ORDERED: GLUCAGON FOR INJ 1 MG VIAL SQ PRN (00:45)
[2017-12-19] MEDS ORDERED: NON-FORMULARY MEDICATION (Polyethylene Glycol 3350 (Miralax) 17 GM) PO PRN (00:45)
[2017-12-19] MEDS ORDERED: ALUMINUM/MAGNESIUM/SIMETH (MAALOX MAX) 30 ML UDC PO PRN (00:45)
[2017-12-19] MEDS ORDERED: VANCOMYCIN CONSULT ACTIVE PRN (00:45)
[2017-12-19] MEDS ORDERED: ONDANSETRON INJ 2 MG/ML 2 ML VIAL IV PRN (00:45)
[2017-12-19] MEDS ORDERED: GLUCOSE 40% GEL 15 GM TUBE PO PRN (00:45)
[2017-12-19] MEDS ORDERED: PIPERACILL/TAZOBAC CONSULT ACTIVE PRN (00:45)
[2017-12-19] MEDS ORDERED: DEXTROSE 50% 50 ML SYR IV PRN (00:45)
[2017-12-19 02:22] VITALS: BP 138/67; PULSE 99; TEMP 36.3; O2SAT 99; BMI 34.0
[2017-12-19] MEDS: SODIUM CHLORIDE 0.9% 1000ML 1,000 ML IV SCH ×2 (03:10→17:50)
[2017-12-19] MEDS: PIPERACILL/TAZOBAC IV 3.375 GM in DEXTROSE 5% 100ML 100 ML IV SCH ×2 (03:20→14:33)
[2017-12-19] MEDS ORDERED: DAPTOMYCIN CONSULT ACTIVE PRN (03:30)
[2017-12-19] MEDS ORDERED: SODIUM CHLORIDE 0.9% IV SCH (03:30)
[2017-12-19] MEDS ORDERED: DAPTOMYCIN IV SCH (03:30)
[2017-12-19] MEDS: DAPTOmycin IV 375 MG in SYRINGE 0 ML IV SCH (04:27)
[2017-12-19] MEDS: LEVOTHYROXINE 88 MCG TAB PO SCH (06:05)
--- NOTE | 2017-12-19 06:53 | DIAGNOSTIC IMAGING REPORT ---
CT OF THE ABDOMEN AND PELVIS WITHOUT CONTRAST, STONE PROTOCOL CLINICAL HISTORY: Evaluate for obstructive uropathy. COMPARISON STUDY: Renal ultrasound September 22, 2017. TECHNIQUE: Helical axial images of the abdomen and pelvis were obtained without IV or oral contrast according to renal stone protocol. A dose lowering technique was utilized adhering to the principles of ALARA. FINDINGS: Heart is moderately enlarged. 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 Note is made of a 2 mm calculus within the upper pole the left kidney. There is no hydronephrosis or hydroureter and no ureteral calculi are present. Moderate irregular bladder wall thickening with trabeculations is noted. Prostate is mildly enlarged. Sensitivity for detection of urothelial lesions is diminished on this unenhanced exam. A nodular density along the posterior aspect of segment 6 of the liver has similar attenuation to the background liver. This probably benign. Fat-containing right inguinal hernia is present. There are no suspicious osseous lesions. Postoperative findings within the spine are noted. There is extensive atherosclerotic plaque of the abdominal aorta. The gallbladder is not identified and likely surgically absent. Slight dilatation of the common bile duct is likely related to prior cholecystectomy. IMPRESSION: 1. No hydronephrosis or hydroureter. No ureteral calculi. Punctate left renal calculus. 2. Moderate distention of the bladder. Irregular bladder wall thickening with trabeculations which suggests chronic bladder outlet obstruction. Mild enlargement of the prostate. 3. No bowel obstruction. Electronically signed by: Colin Cannon M.D. 12/19/2017 6:52 AM Dictated Date/Time: 12/19/2017 6:45 AM
[2017-12-19 07:05] VITALS: BP 97/54; PULSE 44; TEMP 36.3; O2SAT 96
--- NOTE | 2017-12-19 07:22 | Family Medicine Progress Note ---
Progress Note Date of Service Dec 19, 2017. Subjective Pt evaluation today including: conversation w/ patient, physical exam, chart review, lab review Pain: 0/10 PO Intake: Tolerating Voiding: no voiding problems Patient was resting in his chair during the examination, reports sleeping well. Patient is tolerating his diet and voiding/stooling appropriately. Patient endorsed new onset SOB. Patient is a questionable historian. Constitutional: No fever, No chills, No sweats, No weakness Respiratory: + shortness of breath (chronic), No cough, No sputum, No wheezing Medications Current Inpatient Medications Medications (Trade) Dose Ordered Sig/Jodie Route Start Time Stop Time Status Last Admin Dose Admin Heparin Sodium (Porcine) (Heparin Sq 5000 Unit/0.5ml) 5,000 unit Q12 SQ 12/19/17 09:00 01/18/18 08:59 Sodium Chloride 1,000 ml @ 60 mls/hr [id number] IV 12/19/17 00:41 01/18/18 00:40 12/19/17 03:10 60 MLS/HR Acetaminophen (Tylenol Tab) 650 mg Q4H PRN PO 12/19/17 00:45 01/18/18 00:44 Al Hydrox/Mg Hydrox/Simethicone (Maalox Max Susp) 15 ml Q4H PRN PO 12/19/17 00:45 01/18/18 00:44 Magnesium Hydroxide (Milk Of Magnesia Susp) 30 ml Q12H PRN PO 12/19/17 00:45 01/18/18 00:44 Ondansetron HCl (Zofran Inj) 4 mg Q6H PRN IV 12/19/17 00:45 01/18/18 00:44 Polyethylene (Miralax Powder Packet) 17 gm DAILY PRN PO 12/19/17 00:45 01/18/18 00:44 Insulin Aspart (novoLOG ASPART) SLIDING SCALE If C... ACHS SC 12/19/17 06:30 01/18/18 06:29 Glucose (Glucose 40% Gel) 15-30 GRAMS 15 GRAMS... UD PRN PO 12/19/17 00:45 01/18/18 00:44 Glucose (Glucose Chew Tab) 4-8 Tablets 4 Tabl... UD PRN PO 12/19/17 00:45 01/18/18 00:44 Dextrose (Dextrose 50% 50ML Syringe) 25-50ML 25ML FOR ... UD PRN IV 12/19/17 00:45 01/18/18 00:44 Glucagon (Glucagon Inj) 1 mg UD PRN SQ 12/19/17 00:45 01/18/18 00:44 Carbohydrates (Carbohydrates For Hypoglycemia) 15-30 GRAMS 15 grams if BSG 54-69... UD PRN PO 12/19/17 00:45 01/18/18 00:44 Piperacillin Sod/ Tazobactam Sod 3.375 gm/Dextrose 115 ml @ 28.75 mls/ hr Q12H IV 12/19/17 03:00 12/29/17 02:59 12/19/17 03:20 28.75 MLS/HR Miscellaneous Information (Consult) 1 ea UD PRN N/A 12/19/17 00:45 01/18/18 00:44 Albuterol (Ventolin Hfa Inhaler) 2 puffs Q6H PRN INH 12/19/17 00:45 01/18/18 00:44 Aspirin (Ecotrin Tab) 81 mg BID PO 12/19/17 09:00 01/18/18 08:59 Budesonide/ Formoterol Fumarate (Symbicort 160/ 4.5 Inh) 2 puffs BID INH 12/19/17 09:00 01/18/18 08:59 Clonazepam (Klonopin Tab) 0.5 mg QAM PO 12/19/17 09:00 01/18/18 08:59 Clonazepam (Klonopin Tab) 1 mg HS PO 12/19/17 21:00 01/18/18 20:59 Gabapentin (Neurontin Cap) 200 mg BID PO 12/19/17 09:00 01/18/18 08:59 Levothyroxine Sodium (Synthroid Tab) 88 mcg DAILYBB PO 12/19/17 06:30 01/18/18 06:29 12/19/17 06:05 88 MCG Pantoprazole Sodium (Protonix Tab) 40 mg QAM PO 12/19/17 09:00 01/18/18 08:59 Simvastatin (Zocor Tab) 20 mg HS PO 12/19/17 21:00 01/18/18 20:59 Metoprolol Tartrate (Lopressor Tab) 50 mg BID PO 12/19/17 09:00 01/18/18 08:59 Daptomycin (Consult) 1 ea UD PRN N/A 12/19/17 03:30 01/18/18 03:29 Daptomycin 375 mg/ Syringe 7.5 ml @ 3.72 mls/ min Q48H IV 12/19/17 04:00 12/29/17 03:59 12/19/17 04:27 3.72 MLS/MIN Objective Vital Signs Date Time Temp Pulse Resp B/P (MAP) Pulse Ox O2 Delivery O2 Flow Rate FiO2 12/19/17 07:05 36.3 44 16 97/54 (68) 96 Room Air 12/19/17 02:22 36.3 99 16 138/67 99 Room Air 12/19/17 01:30 Room Air 12/19/17 00:43 50 18 142/65 99 12/19/17 00:00 49 18 138/62 97 Room Air 12/18/17 23:00 47 18 115/65 96 Room Air 12/18/17 21:31 49 12/18/17 21:25 95 Room Air 12/18/17 21:25 94 Room Air 12/18/17 21:13 36.7 40 20 103/38 98 Room Air Physical Exam General Appearance: WD/WN, no apparent distress Eyes: normal inspection, EOMI, sclerae normal Neck: supple, no adenopathy, thyroid normal, trachea midline Respiratory/Chest: chest non-tender, lungs clear, normal breath sounds, no respiratory distress, no accessory muscle use Cardiovascular: regular rate, rhythm Abdomen: normal bowel sounds, non tender, soft, no organomegaly, no pulsatile mass Extremities: normal inspection, normal capillary refill, + pedal edema (2+ to the knee) Neurologic/Psychiatric: asset availability leader II-XII nml as tested, no motor/sensory deficits, alert, normal mood/affect, oriented x 3 (difficulty answering questions but AAOx4) Skin: normal color, warm/dry, no rash Lymphatic: no adenopathy Laboratory Results Last Resulted 12/18/17 21:30 Red Blood Count 3.51, Mean Corpuscular Volume 94.3, Mean Corpuscular Hemoglobin 31.3, Mean Corpuscular Hemoglobin Concent 33.2, Mean Platelet Volume 9.6, Neutrophils (%) (Auto) 52.8, Lymphocytes (%) (Auto) 33.6, Monocytes (%) (Auto) 7.8, Eosinophils (%) (Auto) 5.1, Basophils (%) (Auto) 0.3, Neutrophils # (Auto) 3.81, Lymphocytes # (Auto) 2.42, Monocytes # (Auto) 0.56, Eosinophils # (Auto) 0.37, Basophils # (Auto) 0.02 Last Resulted 12/18/17 21:30 Past 24 Hours Test 12/18/17 21:30 Range/Units Creatine Kinase MB 2.3 0.5-3.6 ng/ml Creatine Kinase MB Ratio 0-3.0 Prothromb Time International Ratio 1.0 0.9-1.1 Prothrombin Time 10.7 9.0-12.0 SECONDS Total Creatine Kinase 82 39-308 U/L Assessment and Plan 82 yo M w/ PMHx of CKD, CAD /UT s/p CABG, Diastolic HF, Paroxysmal Afib, T2DM , Diabetic neuropathy HTN, GERD, Hypothyroidism presenting with h/o 2 day history of progressive confusion within the context of over all decline for 2 months including weakness, poor memory recall, found to have Acute on Chronic kidney injury on arrival. Progressive Confusion, Weakness - unclear etiology, possibly due to polypharmacy, recently started on higher dose of Gabapentin, recently started on Percocet. cannot rule out infection, possible source is Left 5th toe ulcer. CT head wnl, no focal neural signs, CVA less likely given onset, duration. While arriving with Acute on Chronic CKD, no significant electrolyte abnormalities that would explain. - Given possibility of infectious etiology secondary to Right toe cellulitis empirically treat with broad spectrum abc coverage with Vancomycin, Zosyn -F/u blood cultures x2 - Dehydration is a likely etiology given his Cr and JUDI - Potentially a component of vascular dementia. Bradycardia -asyx -Per tele HR upper 30's lower 40's -Holding Metoprolol for an HR less than 60 -May be developing increased sensitivity to B blockers Acute on CKD ( baseline Cr 1.5 - 2.5) - arrived with Cr 5.2 - ddx: prerenal secondary to excessive diuresis vs post renal obstruction as evidences by distended bladder on CT Abdomen/ Pelvis -Voiding appropriately obstruction is less likely - Hold Bumex, Hold Losartan - IV NS at 60 mls/ hr - Nephrology consulted for input Toe Ulcer: Right 5th toe -cellulitis vs osteomyelitis -F/u MRI foot -Given Diabetes will cover for pseudomonas as well -Vanc Zosyn empirically -F/u Blood cx's Chest pain - resolved - EKG without acute ischemic changes - Initial troponin negative - likely not ACS , possible angina, GERD, MSK also considered - Follow Serial troponins - Given Resting Bradycardia, Metoprolol decreased to 50mg BID from 75 mg BID Diastolic CHF, CAD - stable, does not appear to be in exacerbation - 11/12: NO LV systolic function, NO wall motion abnormalities, EF 55-60% Moderate concentric LVH, Type 1 Diastolic Dysfunction, - previously on Bumex 2mg BID at home, Hold Bumex given Elevated Cr from baseline - Continue Spironolactone 25 mg BID, Metoprolol at above dose - Metoprolol 50 mg BID as above Paroxysmal Atrial fibrillation, CAD - rate controlled with Metoprolol, dose adjusted as above given Bradycardia - not on anticoagulation - Continue ASA DVT Rule Out -Pt reported new onset SOB + leg pain -F/U U/S to rule out DVT HLD -Zocor at home dose - F/u Lipid panel T2DM, Diabetic Neuropathy - ISS, Basal Insulin, BSG AC HS - HbA1C ordered Hypothyroidism - Synthroid 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 PT/OT Resident Physician Supervision Note: I interviewed and examined the patient. Discussed with Dr. Gaitan and agree with findings and plan as documented in the note. Any exceptions or clarifications are listed here: None Documented By: Alexandru Harrell feeling better less confused knows where he is and actually notes that his brought him in because he wasn't acting right/thinking right vitals noted nad breathing unlabored no pallor or icterus. R 5th toe painful ulcer but minimal surrounding erythema delirium -suspect multifactorial encephalopathy w dehydration/JUDI being largest component , but possible polypharmacy as well, doubt foot ulcer plays a role since no clear cellulitis/sepsis/etc otherwise as above Continued [facility] stay due to: abnormal vital signs Discharge planning: home Resident Tracking Resident Involvement: Resident Care Provided Care Provided: Adult [facility] Medicine
[2017-12-19] MEDS: METOPROLOL TARTRATE 50 MG TAB PO SCH ×2 (08:32→20:19)
--- NOTE | 2017-12-19 08:32 | DIAGNOSTIC IMAGING REPORT ---
MRI OF THE RIGHT FOREFOOT NO CONTRAST CLINICAL HISTORY: Right fifth toe pain. Wound. Possible osteomyelitis. Diabetes. COMPARISON STUDY: Three-phase bone scan dated 12/11/2017 FINDINGS: Imaging was performed in sagittal, coronal, and axial planes. There are no areas of marrow edema suspicious for acute osteomyelitis. There are no fluid collections to indicate a drainable abscess. There is minor dorsal soft tissue edema. IMPRESSION: 1. Mild dorsal soft tissue edema 2. No evidence of osteomyelitis 3. No evidence of abscess Electronically signed by: Julio Garcia M.D. 12/19/2017 8:31 AM Dictated Date/Time: 12/19/2017 8:26 AM
[2017-12-19] MEDS: PANTOprazole SOD 40 MG TAB PO SCH (08:33)
[2017-12-19] MEDS: GABAPENTIN 100 MG CAP PO SCH ×2 (08:33→20:39)
[2017-12-19] MEDS: BUDESONIDE/FORMOTEROL FUMARATE 160/4.5 60 PUFFS/INHALER INH SCH ×2 (08:33→20:39)
[2017-12-19] MEDS: CLONAZEPAM 0.5 MG TAB PO SCH (08:33)
[2017-12-19] MEDS: ASPIRIN 81 MG ECTAB PO SCH ×2 (08:33→20:40)
[2017-12-19] MEDS: HEPARIN SOD 5000 UNIT/0.5 ML CARP SQ SCH ×2 (08:36→20:36)
[2017-12-19] MEDS: INSULIN ASPART 100 UNITS/ML 3 ML PEN SC SCH ×4 (08:36→20:34)
[2017-12-19] MEDS ORDERED: VANCOMYCIN IV 1,000 MG in SODIUM CHLORIDE 0.9% 250ML 250 ML IV SCH (09:00)
[2017-12-19] MEDS ORDERED: SPIRONOLACTONE 25 MG TAB PO SCH (09:00)
[2017-12-19] MEDS ORDERED: METOPROLOL TARTRATE 25 MG TAB PO SCH (09:00)
[2017-12-19] MEDS ORDERED: LOSARTAN POTASSIUM 25 MG TAB PO SCH (09:00)
[2017-12-19 09:38] LABS: CHOLESTEROL 150 mg/dl (0-200); LDL CHOLESTEROL CALCULATED 59 mg/dl
[2017-12-19 11:21] VITALS: BP 114/64; PULSE 40; TEMP 36.3; O2SAT 97
[2017-12-19 12:27] LABS: HEMOGLOBIN A1C 10.9 % (4.5-5.6)
--- NOTE | 2017-12-19 12:55 | Nephrology Consultation ---
Nephrology Consultation Date & Providers Date of Consultation: Dec 19, 2017. Primary Care Provider: John Norman M.D. Referring Provider: Reason for Consultation Acute on CKD History of Present Illness Mr. Monroy is an 82 year old white male who is seen at the request of Dr. Rosales for evaluation of acute on chronic kidney injury. Medical records in the hospital EMR were reviewed and are summarized as follows: Mr. Monroy has stage III CKD w/ baseline creatinine ~ 2.0. 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 His [employer] is Dr. Dixon. Mr. Monroy's medical history is also significant for AODM, HTN, diastolic dysfunction w/ CHF, ASCVD s/p CABG 2013, COPD and GERD. Mr. Monroy has developed an ulcerative lesion involving his R 5th toe. He has had this debrided at the wound clinic. Recently he developed worsening LE pain. His Gabapentin dose was increased and Percocet was added to his medical regimen. Mr. Monroy became progressively lethargic and was brought to the ED for further evaluation. In the ED Mr. Monroy was found to have acute on CKD. Creatinine was increased to ~ 5.0 and patient had mild hyperkalemia. Losartan, Spironolactone and Bumetanide have been held. Gentle hydration is being provided. Echocardiogram 11/12 - LVEF 55% w/ grade I diastolic dysfunction and mild aortic sclerosis. Head CT was negative for acute change. CXR was negative for infiltrate. Abdominal CT was negative for hydronephrosis. Urinalysis was negative for infection. Blood and urine cultures are pending. Past Medical/Surgical History Medical: # Stage III CKD # AODM # HTN # ASCVD s/p CABG 2013 # Diastolic dysfunction w/ CHF # COPD # GERD Allergies Coded Allergies: Ropinirole (Verified Adverse Reaction, Intermediate, CHANGE IN MENTAL STATUS, 11/22/16) Inpatient Medications Current Inpatient Medications Medications (Trade) Dose Ordered Sig/Jodie Route Start Time Stop Time Status Last Admin Dose Admin Heparin Sodium (Porcine) (Heparin Sq 5000 Unit/0.5ml) 5,000 unit Q12 SQ 12/19/17 09:00 01/18/18 08:59 12/19/17 08:36 5,000 UNIT Sodium Chloride 1,000 ml @ 60 mls/hr [id number] IV 12/19/17 00:41 01/18/18 00:40 12/19/17 03:10 60 MLS/HR Acetaminophen (Tylenol Tab) 650 mg Q4H PRN PO 12/19/17 00:45 01/18/18 00:44 Al Hydrox/Mg Hydrox/Simethicone (Maalox Max Susp) 15 ml Q4H PRN PO 12/19/17 00:45 01/18/18 00:44 Magnesium Hydroxide (Milk Of Magnesia Susp) 30 ml Q12H PRN PO 12/19/17 00:45 01/18/18 00:44 Ondansetron HCl (Zofran Inj) 4 mg Q6H PRN IV 12/19/17 00:45 01/18/18 00:44 Polyethylene (Miralax Powder Packet) 17 gm DAILY PRN PO 12/19/17 00:45 01/18/18 00:44 Insulin Aspart (novoLOG ASPART) SLIDING SCALE If C... ACHS SC 12/19/17 06:30 01/18/18 06:29 12/19/17 12:05 10 UNITS Glucose (Glucose 40% Gel) 15-30 GRAMS 15 GRAMS... UD PRN PO 12/19/17 00:45 01/18/18 00:44 Glucose (Glucose Chew Tab) 4-8 Tablets 4 Tabl... UD PRN PO 12/19/17 00:45 01/18/18 00:44 Dextrose (Dextrose 50% 50ML Syringe) 25-50ML 25ML FOR ... UD PRN IV 12/19/17 00:45 01/18/18 00:44 Glucagon (Glucagon Inj) 1 mg UD PRN SQ 12/19/17 00:45 01/18/18 00:44 Carbohydrates (Carbohydrates For Hypoglycemia) 15-30 GRAMS 15 grams if BSG 54-69... UD PRN PO 12/19/17 00:45 01/18/18 00:44 Piperacillin Sod/ Tazobactam Sod 3.375 gm/Dextrose 115 ml @ 28.75 mls/ hr Q12H IV 12/19/17 03:00 12/29/17 02:59 12/19/17 03:20 28.75 MLS/HR Miscellaneous Information (Consult) 1 ea UD PRN N/A 12/19/17 00:45 01/18/18 00:44 Albuterol (Ventolin Hfa Inhaler) 2 puffs Q6H PRN INH 12/19/17 00:45 01/18/18 00:44 Aspirin (Ecotrin Tab) 81 mg BID PO 12/19/17 09:00 01/18/18 08:59 12/19/17 08:33 81 MG Budesonide/ Formoterol Fumarate (Symbicort 160/ 4.5 Inh) 2 puffs BID INH 12/19/17 09:00 01/18/18 08:59 12/19/17 08:33 2 PUFFS Clonazepam (Klonopin Tab) 0.5 mg QAM PO 12/19/17 09:00 01/18/18 08:59 12/19/17 08:33 0.5 MG Clonazepam (Klonopin Tab) 1 mg HS PO 12/19/17 21:00 01/18/18 20:59 Gabapentin (Neurontin Cap) 200 mg BID PO 12/19/17 09:00 01/18/18 08:59 12/19/17 08:33 200 MG Levothyroxine Sodium (Synthroid Tab) 88 mcg DAILYBB PO 12/19/17 06:30 01/18/18 06:29 12/19/17 06:05 88 MCG Pantoprazole Sodium (Protonix Tab) 40 mg QAM PO 12/19/17 09:00 01/18/18 08:59 12/19/17 08:33 40 MG Simvastatin (Zocor Tab) 20 mg HS PO 12/19/17 21:00 01/18/18 20:59 Metoprolol Tartrate (Lopressor Tab) 50 mg BID PO 12/19/17 09:00 01/18/18 08:59 Daptomycin (Consult) 1 ea UD PRN N/A 12/19/17 03:30 01/18/18 03:29 Daptomycin 375 mg/ Syringe 7.5 ml @ 3.72 mls/ min Q48H IV 12/19/17 04:00 12/29/17 03:59 12/19/17 04:27 3.72 MLS/MIN Family History Heart disease Negative for CKD / ESRD Social History Smoking Status: Former Smoker Alcohol Use: none Drug Use: none Marital Status: Housing Status: lives with family Occupation: retired . Retired. Former smoker Review of Systems Constitutional: No fever Respiratory: No cough Cardiovascular: No chest pain Abdomen: + nausea, + diarrhea, No vomiting Genitourinary - Male: No dysuria, No urinary frequency, No urinary urgency A complete review of systems was performed. Pertinent positives are noted above. All other systems are negative. Physical Exam Date Time Temp Pulse Resp B/P (MAP) Pulse Ox O2 Delivery O2 Flow Rate FiO2 12/19/17 11:21 36.3 40 16 114/64 (81) 97 Room Air 12/19/17 08:00 Room Air 12/19/17 07:05 36.3 44 16 97/54 (68) 96 Room Air 12/19/17 02:22 36.3 99 16 138/67 99 Room Air 12/19/17 01:30 Room Air 12/19/17 00:43 50 18 142/65 99 12/19/17 00:00 49 18 138/62 97 Room Air 12/18/17 23:00 47 18 115/65 96 Room Air 12/18/17 21:31 49 12/18/17 21:25 95 Room Air 12/18/17 21:25 94 Room Air 12/18/17 21:13 36.7 40 20 103/38 98 Room Air General Appearance: no apparent distress Head: normocephalic, atraumatic Eyes: PERRL, EOMI Neck: no adenopathy Respiratory/Chest: lungs clear, no respiratory distress Cardiovascular: regular rate, rhythm Abdomen/GI: normal bowel sounds, non tender, soft Extremities/Musculoskelatal: no calf tenderness, no pedal edema Neurologic/Psych: alert, oriented x 3 Skin: no rash Laboratory Results Last 24 Hours Test 12/18/17 21:30 12/18/17 21:39 12/18/17 21:48 12/19/17 01:06 White Blood Count 7.21 K/uL Red Blood Count 3.51 M/uL Hemoglobin 11.0 g/dL Hematocrit 33.1 % Mean Corpuscular Volume 94.3 fL Mean Corpuscular Hemoglobin 31.3 pg Mean Corpuscular Hemoglobin Concent 33.2 g/dl Platelet Count 164 K/uL Mean Platelet Volume 9.6 fL Neutrophils (%) (Auto) 52.8 % Lymphocytes (%) (Auto) 33.6 % Monocytes (%) (Auto) 7.8 % Eosinophils (%) (Auto) 5.1 % Basophils (%) (Auto) 0.3 % Neutrophils # (Auto) 3.81 K/uL Lymphocytes # (Auto) 2.42 K/uL Monocytes # (Auto) 0.56 K/uL Eosinophils # (Auto) 0.37 K/uL Basophils # (Auto) 0.02 K/uL RDW Standard Deviation 47.1 fL RDW Coefficient of Variation 13.7 % Immature Granulocyte % (Auto) 0.4 % Immature Granulocyte # (Auto) 0.03 K/uL Prothrombin Time 10.7 SECONDS Prothromb Time International Ratio 1.0 Activated Partial Thromboplast Time 23.8 SECONDS Partial Thromboplastin Ratio 0.9 Sodium Level 140 mmol/L Potassium Level 5.2 mmol/L Chloride Level 108 mmol/L Carbon Dioxide Level 24 mmol/L Anion Gap 8.0 mmol/L Blood Urea Nitrogen 97 mg/dl Creatinine 4.12 mg/dl Estimated GFR () 14.6 Estimated GFR (Non- 12.6 BUN/Creatinine Ratio 23.6 Bedside Glucose 101 mg/dl 157 mg/dl Random Glucose 85 mg/dl Estimated Average Glucose 266 mg/dl Hemoglobin A1c 10.9 % Calcium Level 8.8 mg/dl Total Bilirubin 0.3 mg/dl Direct Bilirubin 0.1 mg/dl Aspartate Amino Transf (AST/SGOT) 28 U/L Alanine Aminotransferase (ALT/SGPT) 28 U/L Alkaline Phosphatase 70 U/L Total Creatine Kinase 82 U/L Creatine Kinase MB 2.3 ng/ml Creatine Kinase MB Ratio Pro-B-Type Natriuretic Peptide 726 pg/ml Total Protein 7.1 gm/dl Albumin 3.6 gm/dl Lipase 194 U/L Bedside Troponin I < 0.030 ng/ml Bedside Lactic Acid Venous 1.01 mmol/L Test 12/19/17 01:40 12/19/17 07:20 12/19/17 08:53 Urine Color YELLOW Urine Appearance CLEAR Urine pH 5.0 Urine Specific [place] 1.013 Urine Protein NEG Urine Glucose (UA) NEG Urine Ketones NEG Urine Occult Blood TRACE Urine Nitrite NEG Urine Bilirubin NEG Urine Urobilinogen NEG Urine Leukocyte Esterase TRACE Urine WBC (Auto) 1-5 /hpf Urine RBC (Auto) 0-4 /hpf Urine Hyaline Casts (Auto) 5-10 /lpf Urine Epithelial Cells (Auto) 5-10 /lpf Urine Bacteria (Auto) NEG Bedside Glucose 170 mg/dl Troponin I < 0.015 ng/ml Triglycerides Level 290 mg/dl Cholesterol Level 150 mg/dl HDL Cholesterol 33 mg/dl LDL Cholesterol, Calculated 59 mg/dl VLDL Cholesterol, Calculated 58 mg/dl Cholesterol/HDL Ratio 4.5 Impression (1) [id number] kidney injury (2) Altered mental status (3) Benign hypertension (4) Diabetes (5) Kidney stones Recommendations ACUTE KIDNEY INJURY: -- Clinically suspect intravascular volume contraction -- Urinalysis is negative for blood or protein, abdominal CT is negative for hydronephrosis -- Will check FeNa -- Continue gentle hydration and monitor serial PRP -- Hold Losartan CHRONIC KIDNEY DISEASE: -- Baseline creatinine has been 2.0. Renal impairment is likely on the basis of microvascular disease HYPERKALEMIA: -- Hold Losartan and Spironolactone -- Low potassium diet HYPERTENSION: -- Patient had relative hypotension on admission -- Hold Losartan and Spironolactone. Continue gentle hydration ID: -- Await culture results. Consider holding Vancomycin unless cultures are positive for MRSA NEURO: -- MS changes may have been related to titration of Gabapentin and introduction of Percocet. Recommend reducing/stopping Gabapentin and holding Percocet
--- NOTE | 2017-12-19 13:50 | DIAGNOSTIC IMAGING REPORT ---
BILATERAL LOWER EXTREMITY VENOUS DOPPLER HISTORY: Leg swelling. COMPARISON STUDY: None. FINDINGS: There is normal compressibility, flow, and augmentation within the bilateral lower extremity deep venous systems. IMPRESSION: No DVT within the right or left lower extremity. Electronically signed by: Otoniel Olivarez M.D. 12/19/2017 1:49 PM Dictated Date/Time: 12/19/2017 1:49 PM
[2017-12-19 14:12] LABS: CREATININE RANDOM URINE 70.8 mg/dl
[2017-12-19 15:51] VITALS: BP 126/46; PULSE 47; TEMP 36.2; O2SAT 96
[2017-12-19 17:35] VITALS: Ht 167.6 cm; Wt 92.6 kg
[2017-12-19 20:11] VITALS: BP 115/56; PULSE 50; TEMP 36.3; O2SAT 99
[2017-12-19] MEDS: CLONAZEPAM 1 MG TAB PO SCH (20:39)
[2017-12-19] MEDS: SIMVASTATIN 20 MG TAB PO SCH (20:39)
[2017-12-20 00:20] VITALS: BP 120/49; PULSE 66; TEMP 36.4; O2SAT 99
[2017-12-20 01:15] VITALS: O2SAT 99
[2017-12-20] MEDS: PIPERACILL/TAZOBAC IV 3.375 GM in DEXTROSE 5% 100ML 100 ML IV SCH ×2 (02:40→14:19)
[2017-12-20 04:51] VITALS: BP 119/68; PULSE 65; TEMP 36.7; O2SAT 94
[2017-12-20 07:09] LABS: BASO % 0.4 %; BASO ABS # 0.02 K/uL (0-0.2); EOS % 3.8 %; HEMATOCRIT 30.9 % (42-52); HEMOGLOBIN 10.3 g/dL (14.0-18.0); IG# 0.01 K/uL (0.00-0.02); LYMPH % 25.9 %; LYMPH ABS # 1.36 K/uL (1.2-3.4); MEAN CELL VOLUME 93.9 fL (80-100); MEAN CORPUSCULAR HEMOGLOBIN 31.3 pg (25-34); MEAN CORPUSCULAR HGB CONC 33.3 g/dl (32-36); MEAN PLATELET VOLUME 9.7 fL (7.4-10.4); MONO % 8.4 %; MONO ABS # 0.44 K/uL (0.11-0.59); NEUT % 61.3 %; NEUT ABS # 3.23 K/uL (1.4-6.5); PLATELET COUNT 132 K/uL (130-400); RED CELL DISTRIBUTION WIDTH CV 13.3 % (11.5-14.5); RED CELL DISTRIBUTION WIDTH SD 45.8 fL (36.4-46.3); WHITE BLOOD COUNT 5.26 K/uL (4.8-10.8)
[2017-12-20 07:12] LABS: PTT PATIENT 25.4 SECONDS (21.0-31.0)
--- NOTE | 2017-12-20 07:16 | Family Medicine Progress Note ---
Progress Note Date of Service Dec 20, 2017. Subjective Pt evaluation today including: conversation w/ patient, physical exam, chart review, lab review Pain: 0/10 PO Intake: Tolerating Patient was resting comfortably during the examination this a.m. no complainants overnight, tolerating his diet, toileting appropriately. He reports getting good sleep last night. Constitutional: No fever, No chills, No sweats, No weakness Eyes: No worsening of vision ENT: No hearing loss, No unusual epistaxis, No nasal symptoms Respiratory: No cough, No sputum, No wheezing, No shortness of breath Cardiovascular: No chest pain, No orthopnea, No edema Abdomen: No pain, No nausea, No vomiting, No diarrhea, No constipation Musculoskeletal: No joint pain, No muscle pain, No calf pain Male : No dysuria, No urinary frequency Psychiatric: No depression symptoms Heme: No abnormal bleeding/bruising, No clotting problems Endo: No fatigue Skin: No rash, No itch, No new/changing skin lesions All Other Systems: Reviewed and Negative Medications Current Inpatient Medications Medications (Trade) Dose Ordered Sig/Jodie Route Start Time Stop Time Status Last Admin Dose Admin Heparin Sodium (Porcine) (Heparin Sq 5000 Unit/0.5ml) 5,000 unit Q12 SQ 12/19/17 09:00 01/18/18 08:59 12/19/17 20:36 5,000 UNIT Sodium Chloride 1,000 ml @ 60 mls/hr [id number] IV 12/19/17 00:41 01/18/18 00:40 12/19/17 17:50 60 MLS/HR Acetaminophen (Tylenol Tab) 650 mg Q4H PRN PO 12/19/17 00:45 01/18/18 00:44 12/19/17 16:52 650 MG Al Hydrox/Mg Hydrox/Simethicone (Maalox Max Susp) 15 ml Q4H PRN PO 12/19/17 00:45 01/18/18 00:44 Magnesium Hydroxide (Milk Of Magnesia Susp) 30 ml Q12H PRN PO 12/19/17 00:45 01/18/18 00:44 Ondansetron HCl (Zofran Inj) 4 mg Q6H PRN IV 12/19/17 00:45 01/18/18 00:44 Polyethylene (Miralax Powder Packet) 17 gm DAILY PRN PO 12/19/17 00:45 01/18/18 00:44 Insulin Aspart (novoLOG ASPART) SLIDING SCALE If C... ACHS SC 12/19/17 06:30 01/18/18 06:29 12/19/17 20:34 2 UNITS Glucose (Glucose 40% Gel) 15-30 GRAMS 15 GRAMS... UD PRN PO 12/19/17 00:45 01/18/18 00:44 Glucose (Glucose Chew Tab) 4-8 Tablets 4 Tabl... UD PRN PO 12/19/17 00:45 01/18/18 00:44 Dextrose (Dextrose 50% 50ML Syringe) 25-50ML 25ML FOR ... UD PRN IV 12/19/17 00:45 01/18/18 00:44 Glucagon (Glucagon Inj) 1 mg UD PRN SQ 12/19/17 00:45 01/18/18 00:44 Carbohydrates (Carbohydrates For Hypoglycemia) 15-30 GRAMS 15 grams if BSG 54-69... UD PRN PO 12/19/17 00:45 01/18/18 00:44 Piperacillin Sod/ Tazobactam Sod 3.375 gm/Dextrose 115 ml @ 28.75 mls/ hr Q12H IV 12/19/17 03:00 12/29/17 02:59 12/20/17 02:40 28.75 MLS/HR Miscellaneous Information (Consult) 1 ea UD PRN N/A 12/19/17 00:45 01/18/18 00:44 Albuterol (Ventolin Hfa Inhaler) 2 puffs Q6H PRN INH 12/19/17 00:45 01/18/18 00:44 Aspirin (Ecotrin Tab) 81 mg BID PO 12/19/17 09:00 01/18/18 08:59 12/19/17 20:40 81 MG Budesonide/ Formoterol Fumarate (Symbicort 160/ 4.5 Inh) 2 puffs BID INH 12/19/17 09:00 01/18/18 08:59 12/19/17 20:39 2 PUFFS Clonazepam (Klonopin Tab) 0.5 mg QAM PO 12/19/17 09:00 01/18/18 08:59 12/19/17 08:33 0.5 MG Clonazepam (Klonopin Tab) 1 mg HS PO 12/19/17 21:00 01/18/18 20:59 12/19/17 20:39 1 MG Gabapentin (Neurontin Cap) 200 mg BID PO 12/19/17 09:00 01/18/18 08:59 12/19/17 20:39 200 MG Levothyroxine Sodium (Synthroid Tab) 88 mcg DAILYBB PO 12/19/17 06:30 01/18/18 06:29 12/19/17 06:05 88 MCG Pantoprazole Sodium (Protonix Tab) 40 mg QAM PO 12/19/17 09:00 01/18/18 08:59 12/19/17 08:33 40 MG Simvastatin (Zocor Tab) 20 mg HS PO 12/19/17 21:00 01/18/18 20:59 12/19/17 20:39 20 MG Metoprolol Tartrate (Lopressor Tab) 50 mg BID PO 12/19/17 09:00 01/18/18 08:59 Daptomycin (Consult) 1 ea UD PRN N/A 12/19/17 03:30 01/18/18 03:29 Daptomycin 375 mg/ Syringe 7.5 ml @ 3.72 mls/ min Q48H IV 12/19/17 04:00 12/29/17 03:59 12/19/17 04:27 3.72 MLS/MIN Objective Vital Signs Date Time Temp Pulse Resp B/P (MAP) Pulse Ox O2 Delivery O2 Flow Rate FiO2 12/20/17 04:51 36.7 65 18 119/68 (85) 94 Room Air 12/20/17 01:15 99 Room Air 12/20/17 00:20 36.4 66 18 120/49 (72) 99 Room Air 12/19/17 20:11 36.3 50 16 115/56 (75) 99 Room Air 12/19/17 16:00 Room Air 12/19/17 15:51 36.2 47 18 126/46 (72) 96 Room Air 12/19/17 11:21 36.3 40 16 114/64 (81) 97 Room Air 12/19/17 08:00 Room Air Physical Exam Notes: General Appearance: WD/WN, no apparent distress Eyes: normal inspection, EOMI, sclerae normal Neck: supple, no adenopathy, thyroid normal, trachea midline Respiratory/Chest: chest non-tender, lungs clear, normal breath sounds, no respiratory distress, no accessory muscle use Cardiovascular: regular rate, rhythm Abdomen: normal bowel sounds, non tender, soft, no organomegaly, no pulsatile mass Extremities: normal inspection, normal capillary refill, + pedal edema (1+ to the knee) 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, no motor/sensory deficits, alert, normal mood/affect, oriented x 3 (difficulty answering questions but AAOx4) Skin: normal color, warm/dry, no rash Lymphatic: no adenopathy Laboratory Results Last Resulted 12/20/17 06:41 Red Blood Count 3.29, Mean Corpuscular Volume 93.9, Mean Corpuscular Hemoglobin 31.3, Mean Corpuscular Hemoglobin Concent 33.3, Mean Platelet Volume 9.7, Neutrophils (%) (Auto) 61.3, Lymphocytes (%) (Auto) 25.9, Monocytes (%) (Auto) 8.4, Eosinophils (%) (Auto) 3.8, Basophils (%) (Auto) 0.4, Neutrophils # (Auto) 3.23, Lymphocytes # (Auto) 1.36, Monocytes # (Auto) 0.44, Eosinophils # (Auto) 0.20, Basophils # (Auto) 0.02 Past 24 Hours Test 12/19/17 08:53 12/19/17 15:52 12/19/17 19:50 12/20/17 02:01 Range/Units Troponin I < 0.015 < 0.015 < 0.015 < 0.015 0-0.045 ng/ml Test 12/20/17 06:41 Range/Units Prothromb Time International Ratio 1.0 0.9-1.1 Prothrombin Time 10.7 9.0-12.0 SECONDS Assessment and Plan 82 yo M w/ PMHx of CKD, CAD /FL s/p CABG, Diastolic HF, Paroxysmal Afib, T2DM , Diabetic neuropathy HTN, GERD, Hypothyroidism presenting with h/o 2 day history of progressive confusion within the context of over all decline for 2 months including weakness, poor memory recall, found to have Acute on Chronic kidney injury on arrival. Progressive Confusion, Weakness - unclear etiology, possibly due to polypharmacy, recently started on higher dose of Gabapentin, recently started on Percocet. cannot rule out infection, possible source is Left 5th toe ulcer. CT head wnl, no focal neural signs, CVA less likely given onset, duration. While arriving with Acute on Chronic CKD, no significant electrolyte abnormalities that would explain. -F/u blood cultures x2 d/c zosyn -Urine CX:"THREE TYPES OF ORGANISMS PRESENT, ALL LOW COUNTS PROBABLE SKIN KO. NO FURTHER IDENTIFICATIONS OR SENSITIVITIES TO FOLLOW. " - Dehydration is a likely etiology given his Cr and JUDI, Currently Resolving - Potentially a component of vascular dementia. Bradycardia -asyx -Per tele HR upper 50's lower 60 's -Holding Metoprolol for an HR less than 60, plan to decreasse dose and have a trail of meds tomorrow -May be developing increased sensitivity to B blockers Acute on CKD ( baseline Cr 1.5 - 2.5) - arrived with Cr 5.2 now 2.75 - Hold Bumex, Hold Losartan - IV NS at 60 mls/ hr - Nephrology consulted for input -- Creatinine has improved from 4.1 to 2.75 overnight. Patient is nonoliguric. Electrolyte balance is acceptable. -- Urinalysis is negative for blood or protein, abdominal CT is negative for hydronephrosis -- FeNa 1.1% -- Continue gentle hydration and monitor serial PRP -- Blood pressure remains acceptable. Continue to hold Losartan -- Baseline creatinine has been 2.0. Renal impairment is likely on the basis of microvascular disease -- Patient had relative hypotension on admission -- Hold Losartan and Spironolactone. Continue gentle hydration -- Blood & urine cultures are negative. Patient remains on Zosyn therapy NEURO: -- MS changes may have been related to titration of Gabapentin and introduction of Percocet. Recommend reducing/stopping Gabapentin and holding Percocet Toe Ulcer: Right 5th toe -Resolving -MRI foot -Mild dorsal soft tissue edema, No evidence of osteomyelitis, No evidence of abscess -D/C Vanc Zosyn empirically -Blood cx's see above Chest pain - resolved - EKG without acute ischemic changes - Initial troponin negative - likely not ACS , possible angina, GERD, MSK also considered - Follow Serial troponins - Given Resting Bradycardia, Metoprolol decreased to 50mg BID from 75 mg BID Diastolic CHF, CAD - stable, does not appear to be in exacerbation - 11/12: NO LV systolic function, NO wall motion abnormalities, EF 55-60% Moderate concentric LVH, Type 1 Diastolic Dysfunction, - previously on Bumex 2mg BID at home, Hold Bumex given Elevated Cr from baseline - Continue Spironolactone 25 mg BID, Metoprolol at above dose - Metoprolol 50 mg BID as above Paroxysmal Atrial fibrillation, CAD - rate controlled with Metoprolol, dose adjusted as above given Bradycardia - not on anticoagulation - Continue ASA DVT Rule Out -Pt reported new onset SOB + leg pain -F/U U/S to rule out DVT HLD -Zocor at home dose - F/u Lipid panel T2DM, Diabetic Neuropathy - ISS, Basal Insulin, BSG AC HS - HbA1C ordered -Decreased Gabapentin dose to 100 mg BID Hypothyroidism - Synthroid 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 PT/OT Resident Physician Supervision Note: I interviewed and examined the patient. Discussed with Dr. Gaitan and agree with findings and plan as documented in the note. Any exceptions or clarifications are listed here: None Documented By: Alexandru Harrell feeling better no acute complaints. updated on working dx and plans. he expresses good understanding vitals noted nad breathing unlabored no pallor or icterus. R 5th toe painful ulcer but minimal surrounding erythema delirium -suspect multifactorial encephalopathy w dehydration/JUDI being largest component , but possible polypharmacy as well, doubt foot ulcer plays a role since no clear cellulitis/sepsis/etc -improving - fluids, cautiously bradycardia - modifying metoprolol dose dispo - hopefully home tomorrow. close outpt f/u otherwise as above Resident Tracking Resident Involvement: Resident Care Provided Care Provided: Adult Hospital Medicine
[2017-12-20 07:29] LABS: CALCIUM 8.3 mg/dl (8.5-10.1); CREATININE 2.75 mg/dl (0.60-1.40); POTASSIUM 4.7 mmol/L (3.5-5.1)
[2017-12-20 07:32] VITALS: BP 131/66; PULSE 64; TEMP 36.6; O2SAT 97
[2017-12-20] MEDS: BUDESONIDE/FORMOTEROL FUMARATE 160/4.5 60 PUFFS/INHALER INH SCH ×2 (08:16→20:58)
[2017-12-20] MEDS: GABAPENTIN 100 MG CAP PO SCH ×2 (08:16→20:59)
[2017-12-20] MEDS: METOPROLOL TARTRATE 50 MG TAB PO SCH ×2 (08:16→21:00)
[2017-12-20] MEDS: LEVOTHYROXINE 88 MCG TAB PO SCH (08:16)
[2017-12-20] MEDS: PANTOprazole SOD 40 MG TAB PO SCH (08:16)
[2017-12-20] MEDS: ASPIRIN 81 MG ECTAB PO SCH ×2 (08:17→20:59)
[2017-12-20] MEDS: HEPARIN SOD 5000 UNIT/0.5 ML CARP SQ SCH ×2 (08:22→21:05)
[2017-12-20] MEDS: INSULIN ASPART 100 UNITS/ML 3 ML PEN SC SCH ×4 (08:22→21:04)
[2017-12-20] MEDS: CLONAZEPAM 0.5 MG TAB PO SCH (08:23)
--- NOTE | 2017-12-20 08:34 | Clinical Documentation Query ---
CLINICAL DOCUMENTATION QUERY 82 year old male who presents to the Emergency Room with complaints of worsening confusion and weakness. H&P states confusion is "possible due to polypharmacy, recently started on higher dose of Gabapentin, recently started on Percocet. cannot rule out infection, possible source is Left 5th toe ulcer." In your clinical opinion is this patient being managed for: ( X) Toxic/Metabolic encephalopathy in setting of possible polypharmacy(Gabapentin & Percocet) and/or underlying infection and/or JUDI. ( ) Not Agree ( ) Other explanation of clinical findings (No explanation is considered a No Response) ( ) Unable to determine ( ) Need to Discuss (Phone CDS or qliq) (No discussion is considered a No Response) The medical record reflects the following clinical findings, treatment, and risk factors. Clinical Indicators: increasing confusion, Oriented to person only, Treatment: Head CT, Percocet held, IVF's, IV Vancomycin, IV Daptomycin, IV Zosyn, Risk Factors: Age, infection, recent new narcotic and increase in Gabapentin, JUDI Please clarify and document your clinical opinion in the progress notes and discharge summary. Terms such as "probable", "suspected", "likely", "questionable", "possible", or "still to be ruled out" are acceptable. IF IN AGREEMENT, YOU MUST DOCUMENT ABOVE DIAGNOSTIC STATEMENT IN DAILY PROGRESS NOTES AND DISCHARGE SUMMARY. This document is not part of the patient's record. Thank You, Edwardo Quach RN [phone] & via qlicCONNECT
[2017-12-20] MEDS ORDERED: INSULIN GLARGINE SOLOSTAR 100 UNITS/ML 3 ML PEN SC ONE (09:13)
[2017-12-20] MEDS: SODIUM CHLORIDE 0.9% 1000ML 1,000 ML IV SCH (09:44)
--- NOTE | 2017-12-20 09:52 | Nephrology Progress Note ---
Nephrology Progress Note Date of Service Dec 20, 2017. Chief Complaint Acute on CKD Subjective Mr. Monroy was seen & examined in his hospital room this morning. He is tolerating IV hydration without dyspnea. He denies fever, angina or uremic symptoms. He reports brisk UO. Review of Systems Constitutional: No fever Respiratory: No dyspnea at rest Abdomen: No pain, No nausea, No vomiting Extremities: No leg edema A complete review of systems was performed. Pertinent positives are noted above. All other systems are negative. Vital Signs Last 8 Hrs Date Time Temp Pulse Resp B/P (MAP) Pulse Ox O2 Delivery O2 Flow Rate FiO2 12/20/17 08:30 Room Air 12/20/17 07:32 36.6 64 16 131/66 (87) 97 Room Air 12/20/17 04:51 36.7 65 18 119/68 (85) 94 Room Air Last Recorded Weight Weight (Kilograms): 92.900 Physical Exam General Appearance: no apparent distress Head: normocephalic, atraumatic Eyes: PERRL, EOMI Neck: no adenopathy Respiratory/Chest: lungs clear, no respiratory distress Cardiovascular: regular rate, rhythm Abdomen/GI: normal bowel sounds, non tender, soft Extremities/Musculoskelatal: no calf tenderness, no pedal edema Neurologic/Psych: alert Family History Heart disease Negative for CKD / ESRD Social History Smoking Status: Never smoker Alcohol Use: none Drug Use: none Marital Status: Housing Status: lives with family Occupation: retired . Retired. Former smoker Laboratory Results Past 24 Hours 12/20/17 06:41 Red Blood Count 3.29, Mean Corpuscular Volume 93.9, Mean Corpuscular Hemoglobin 31.3, Mean Corpuscular Hemoglobin Concent 33.3, Mean Platelet Volume 9.7, Neutrophils (%) (Auto) 61.3, Lymphocytes (%) (Auto) 25.9, Monocytes (%) (Auto) 8.4, Eosinophils (%) (Auto) 3.8, Basophils (%) (Auto) 0.4, Neutrophils # (Auto) 3.23, Lymphocytes # (Auto) 1.36, Monocytes # (Auto) 0.44, Eosinophils # (Auto) 0.20, Basophils # (Auto) 0.02 12/20/17 06:41 Test 12/19/17 11:32 12/19/17 15:52 12/19/17 16:30 12/19/17 19:50 Bedside Glucose 199 mg/dl (70-99) 122 mg/dl (70-99) Troponin I < 0.015 ng/ml (0-0.045) < 0.015 ng/ml (0-0.045) Test 12/19/17 20:18 12/20/17 02:01 12/20/17 06:41 12/20/17 07:43 Bedside Glucose 190 mg/dl (70-99) 250 mg/dl (70-99) Troponin I < 0.015 ng/ml (0-0.045) White Blood Count 5.26 K/uL (4.8-10.8) Red Blood Count 3.29 M/uL (4.7-6.1) Hemoglobin 10.3 g/dL (14.0-18.0) Hematocrit 30.9 % (42-52) Mean Corpuscular Volume 93.9 fL (80-100) Mean Corpuscular Hemoglobin 31.3 pg (25-34) Mean Corpuscular Hemoglobin Concent 33.3 g/dl (32-36) Platelet Count 132 K/uL (130-400) Mean Platelet Volume 9.7 fL (7.4-10.4) Neutrophils (%) (Auto) 61.3 % Lymphocytes (%) (Auto) 25.9 % Monocytes (%) (Auto) 8.4 % Eosinophils (%) (Auto) 3.8 % Basophils (%) (Auto) 0.4 % Neutrophils # (Auto) 3.23 K/uL (1.4-6.5) Lymphocytes # (Auto) 1.36 K/uL (1.2-3.4) Monocytes # (Auto) 0.44 K/uL (0.11-0.59) Eosinophils # (Auto) 0.20 K/uL (0-0.5) Basophils # (Auto) 0.02 K/uL (0-0.2) RDW Standard Deviation 45.8 fL (36.4-46.3) RDW Coefficient of Variation 13.3 % (11.5-14.5) Immature Granulocyte % (Auto) 0.2 % Immature Granulocyte # (Auto) 0.01 K/uL (0.00-0.02) Prothrombin Time 10.7 SECONDS (9.0-12.0) Prothromb Time International Ratio 1.0 (0.9-1.1) Activated Partial Thromboplast Time 25.4 SECONDS (21.0-31.0) Partial Thromboplastin Ratio 1.0 Anion Gap 9.0 mmol/L (3-11) Est Creatinine Clear Calc Drug Dose 22.1 ml/min Estimated GFR () 23.8 Estimated GFR (Non- 20.5 BUN/Creatinine Ratio 25.1 (10-20) Calcium Level 8.3 mg/dl (8.5-10.1) Magnesium Level 2.4 mg/dl (1.8-2.4) Allergies Coded Allergies: Ropinirole (Verified Adverse Reaction, Intermediate, CHANGE IN MENTAL STATUS, 11/22/16) Medications Current Inpatient Medications Medications (Trade) Dose Ordered Sig/Jodie Route Start Time Stop Time Status Last Admin Dose Admin Heparin Sodium (Porcine) (Heparin Sq 5000 Unit/0.5ml) 5,000 unit Q12 SQ 12/19/17 09:00 01/18/18 08:59 12/20/17 08:22 5,000 UNIT Sodium Chloride 1,000 ml @ 60 mls/hr [id number] IV 12/19/17 00:41 01/18/18 00:40 12/20/17 09:44 60 MLS/HR Acetaminophen (Tylenol Tab) 650 mg Q4H PRN PO 12/19/17 00:45 01/18/18 00:44 12/19/17 16:52 650 MG Al Hydrox/Mg Hydrox/Simethicone (Maalox Max Susp) 15 ml Q4H PRN PO 12/19/17 00:45 01/18/18 00:44 Magnesium Hydroxide (Milk Of Magnesia Susp) 30 ml Q12H PRN PO 12/19/17 00:45 01/18/18 00:44 Ondansetron HCl (Zofran Inj) 4 mg Q6H PRN IV 12/19/17 00:45 01/18/18 00:44 Polyethylene (Miralax Powder Packet) 17 gm DAILY PRN PO 12/19/17 00:45 01/18/18 00:44 Insulin Aspart (novoLOG ASPART) SLIDING SCALE If C... ACHS SC 12/19/17 06:30 01/18/18 06:29 12/20/17 08:22 10 UNITS Glucose (Glucose 40% Gel) 15-30 GRAMS 15 GRAMS... UD PRN PO 12/19/17 00:45 01/18/18 00:44 Glucose (Glucose Chew Tab) 4-8 Tablets 4 Tabl... UD PRN PO 12/19/17 00:45 01/18/18 00:44 Dextrose (Dextrose 50% 50ML Syringe) 25-50ML 25ML FOR ... UD PRN IV 12/19/17 00:45 01/18/18 00:44 Glucagon (Glucagon Inj) 1 mg UD PRN SQ 12/19/17 00:45 01/18/18 00:44 Carbohydrates (Carbohydrates For Hypoglycemia) 15-30 GRAMS 15 grams if BSG 54-69... UD PRN PO 12/19/17 00:45 01/18/18 00:44 Piperacillin Sod/ Tazobactam Sod 3.375 gm/Dextrose 115 ml @ 28.75 mls/ hr Q12H IV 12/19/17 03:00 12/29/17 02:59 12/20/17 02:40 28.75 MLS/HR Miscellaneous Information (Consult) 1 ea UD PRN N/A 12/19/17 00:45 01/18/18 00:44 Albuterol (Ventolin Hfa Inhaler) 2 puffs Q6H PRN INH 12/19/17 00:45 01/18/18 00:44 Aspirin (Ecotrin Tab) 81 mg BID PO 12/19/17 09:00 01/18/18 08:59 12/20/17 08:17 81 MG Budesonide/ Formoterol Fumarate (Symbicort 160/ 4.5 Inh) 2 puffs BID INH 12/19/17 09:00 01/18/18 08:59 12/20/17 08:16 2 PUFFS Clonazepam (Klonopin Tab) 0.5 mg QAM PO 12/19/17 09:00 01/18/18 08:59 12/20/17 08:23 0.5 MG Clonazepam (Klonopin Tab) 1 mg HS PO 12/19/17 21:00 01/18/18 20:59 12/19/17 20:39 1 MG Gabapentin (Neurontin Cap) 200 mg BID PO 12/19/17 09:00 01/18/18 08:59 12/20/17 08:16 200 MG Levothyroxine Sodium (Synthroid Tab) 88 mcg DAILYBB PO 12/19/17 06:30 01/18/18 06:29 12/20/17 08:16 88 MCG Pantoprazole Sodium (Protonix Tab) 40 mg QAM PO 12/19/17 09:00 01/18/18 08:59 12/20/17 08:16 40 MG Simvastatin (Zocor Tab) 20 mg HS PO 12/19/17 21:00 01/18/18 20:59 12/19/17 20:39 20 MG Metoprolol Tartrate (Lopressor Tab) 50 mg BID PO 12/19/17 09:00 01/18/18 08:59 12/20/17 08:16 50 MG Daptomycin (Consult) 1 ea UD PRN N/A 12/19/17 03:30 01/18/18 03:29 Daptomycin 375 mg/ Syringe 7.5 ml @ 3.72 mls/ min Q48H IV 12/19/17 04:00 12/29/17 03:59 12/19/17 04:27 3.72 MLS/MIN Insulin Glargine (Lantus Solostar Pen) 10 units DAILY SC 12/21/17 09:00 01/20/18 08:59 Impression (1) [id number] kidney injury (2) Altered mental status (3) Benign hypertension (4) Diabetes (5) Kidney stones Recommendations ACUTE KIDNEY INJURY: -- Creatinine has improved from 4.1 to 2.75 overnight. Patient is nonoliguric. Electrolyte balance is acceptable. -- Urinalysis is negative for blood or protein, abdominal CT is negative for hydronephrosis -- FeNa 1.1% -- Continue gentle hydration and monitor serial PRP -- Blood pressure remains acceptable. Continue to hold Losartan CHRONIC KIDNEY DISEASE: -- Baseline creatinine has been 2.0. Renal impairment is likely on the basis of microvascular disease HYPERTENSION: -- Patient had relative hypotension on admission -- Hold Losartan and Spironolactone. Continue gentle hydration ID: -- Blood & urine cultures are negative. Patient remains on Zosyn therapy NEURO: -- MS changes may have been related to titration of Gabapentin and introduction of Percocet. Recommend reducing/stopping Gabapentin and holding Percocet
[2017-12-20 15:31] VITALS: BP 147/77; PULSE 59; TEMP 36.5; O2SAT 98
[2017-12-20] MEDS: SIMVASTATIN 20 MG TAB PO SCH (20:58)
[2017-12-20] MEDS: CLONAZEPAM 1 MG TAB PO SCH (21:05)
[2017-12-21 00:19] VITALS: BP 121/52; PULSE 70; TEMP 36.5; O2SAT 98
[2017-12-21] MEDS: SODIUM CHLORIDE 0.9% 1000ML 1,000 ML IV SCH (02:13)
[2017-12-21] MEDS: DAPTOmycin IV 375 MG in SYRINGE 0 ML IV SCH (04:06)
[2017-12-21 04:32] VITALS: BP 100/59; PULSE 60; TEMP 36.4; O2SAT 96
[2017-12-21 05:58] LABS: BASO % 0.2 %; BASO ABS # 0.01 K/uL (0-0.2); EOS % 3.9 %; EOS ABS # 0.17 K/uL (0-0.5); HEMATOCRIT 28.7 % (42-52); HEMOGLOBIN 9.4 g/dL (14.0-18.0); IG# 0.02 K/uL (0.00-0.02); LYMPH % 31.4 %; LYMPH ABS # 1.37 K/uL (1.2-3.4); MEAN CELL VOLUME 93.2 fL (80-100); MEAN CORPUSCULAR HEMOGLOBIN 30.5 pg (25-34); MEAN CORPUSCULAR HGB CONC 32.8 g/dl (32-36); MEAN PLATELET VOLUME 9.1 fL (7.4-10.4); MONO % 6.9 %; NEUT % 57.1 %; NEUT ABS # 2.49 K/uL (1.4-6.5); PLATELET COUNT 136 K/uL (130-400); RED CELL DISTRIBUTION WIDTH CV 13.4 % (11.5-14.5); RED CELL DISTRIBUTION WIDTH SD 45.2 fL (36.4-46.3); WHITE BLOOD COUNT 4.36 K/uL (4.8-10.8)
[2017-12-21 06:07] LABS: PTT PATIENT 26.4 SECONDS (21.0-31.0)
[2017-12-21 06:28] LABS: CALCIUM 8.6 mg/dl (8.5-10.1); CREATININE 1.77 mg/dl (0.60-1.40); POTASSIUM 4.2 mmol/L (3.5-5.1)
[2017-12-21 07:17] VITALS: BP 124/62; PULSE 61; TEMP 36.4; O2SAT 98
--- NOTE | 2017-12-21 07:35 | Family Medicine Progress Note ---
Progress Note Date of Service Dec 21, 2017. Medications Current Inpatient Medications Medications (Trade) Dose Ordered Sig/Jodie Route Start Time Stop Time Status Last Admin Dose Admin Heparin Sodium (Porcine) (Heparin Sq 5000 Unit/0.5ml) 5,000 unit Q12 SQ 12/19/17 09:00 01/18/18 08:59 12/20/17 21:05 5,000 UNIT Sodium Chloride 1,000 ml @ 60 mls/hr [id number] IV 12/19/17 00:41 01/18/18 00:40 12/21/17 02:13 60 MLS/HR Acetaminophen (Tylenol Tab) 650 mg Q4H PRN PO 12/19/17 00:45 01/18/18 00:44 12/19/17 16:52 650 MG Al Hydrox/Mg Hydrox/Simethicone (Maalox Max Susp) 15 ml Q4H PRN PO 12/19/17 00:45 01/18/18 00:44 Magnesium Hydroxide (Milk Of Magnesia Susp) 30 ml Q12H PRN PO 12/19/17 00:45 01/18/18 00:44 Ondansetron HCl (Zofran Inj) 4 mg Q6H PRN IV 12/19/17 00:45 01/18/18 00:44 Polyethylene (Miralax Powder Packet) 17 gm DAILY PRN PO 12/19/17 00:45 01/18/18 00:44 Insulin Aspart (novoLOG ASPART) SLIDING SCALE If C... ACHS SC 12/19/17 06:30 01/18/18 06:29 12/20/17 21:04 6 UNITS Glucose (Glucose 40% Gel) 15-30 GRAMS 15 GRAMS... UD PRN PO 12/19/17 00:45 01/18/18 00:44 Glucose (Glucose Chew Tab) 4-8 Tablets 4 Tabl... UD PRN PO 12/19/17 00:45 01/18/18 00:44 Dextrose (Dextrose 50% 50ML Syringe) 25-50ML 25ML FOR ... UD PRN IV 12/19/17 00:45 01/18/18 00:44 Glucagon (Glucagon Inj) 1 mg UD PRN SQ 12/19/17 00:45 01/18/18 00:44 Carbohydrates (Carbohydrates For Hypoglycemia) 15-30 GRAMS 15 grams if BSG 54-69... UD PRN PO 12/19/17 00:45 01/18/18 00:44 Albuterol (Ventolin Hfa Inhaler) 2 puffs Q6H PRN INH 12/19/17 00:45 01/18/18 00:44 Aspirin (Ecotrin Tab) 81 mg BID PO 12/19/17 09:00 01/18/18 08:59 12/20/17 20:59 81 MG Budesonide/ Formoterol Fumarate (Symbicort 160/ 4.5 Inh) 2 puffs BID INH 12/19/17 09:00 01/18/18 08:59 12/20/17 20:58 2 PUFFS Clonazepam (Klonopin Tab) 0.5 mg QAM PO 12/19/17 09:00 01/18/18 08:59 12/20/17 08:23 0.5 MG Clonazepam (Klonopin Tab) 1 mg HS PO 12/19/17 21:00 01/18/18 20:59 12/20/17 21:05 1 MG Levothyroxine Sodium (Synthroid Tab) 88 mcg DAILYBB PO 12/19/17 06:30 01/18/18 06:29 12/20/17 08:16 88 MCG Pantoprazole Sodium (Protonix Tab) 40 mg QAM PO 12/19/17 09:00 01/18/18 08:59 12/20/17 08:16 40 MG Simvastatin (Zocor Tab) 20 mg HS PO 12/19/17 21:00 01/18/18 20:59 12/20/17 20:58 20 MG Metoprolol Tartrate (Lopressor Tab) 50 mg BID PO 12/19/17 09:00 01/18/18 08:59 12/20/17 08:16 50 MG Daptomycin (Consult) 1 ea UD PRN N/A 12/19/17 03:30 01/18/18 03:29 Daptomycin 375 mg/ Syringe 7.5 ml @ 3.72 mls/ min Q48H IV 12/19/17 04:00 12/29/17 03:59 12/21/17 04:06 3.72 MLS/MIN Insulin Glargine (Lantus Solostar Pen) 10 units DAILY SC 12/21/17 09:00 01/20/18 08:59 Gabapentin (Neurontin Cap) 100 mg BID PO 12/20/17 21:00 01/18/18 08:59 12/20/17 20:59 100 MG Objective Vital Signs Date Time Temp Pulse Resp B/P (MAP) Pulse Ox O2 Delivery O2 Flow Rate FiO2 12/21/17 07:17 36.4 61 16 124/62 (82) 98 Room Air 12/21/17 04:32 36.4 60 18 100/59 (73) 96 Room Air 12/21/17 00:19 36.5 70 18 121/52 (75) 98 Room Air 12/21/17 00:00 Room Air 12/20/17 16:00 Room Air 12/20/17 15:31 36.5 59 18 147/77 (100) 98 Room Air 12/20/17 08:30 Room Air Laboratory Results Last Resulted 12/21/17 05:30 Red Blood Count 3.08, Mean Corpuscular Volume 93.2, Mean Corpuscular Hemoglobin 30.5, Mean Corpuscular Hemoglobin Concent 32.8, Mean Platelet Volume 9.1, Neutrophils (%) (Auto) 57.1, Lymphocytes (%) (Auto) 31.4, Monocytes (%) (Auto) 6.9, Eosinophils (%) (Auto) 3.9, Basophils (%) (Auto) 0.2, Neutrophils # (Auto) 2.49, Lymphocytes # (Auto) 1.37, Monocytes # (Auto) 0.30, Eosinophils # (Auto) 0.17, Basophils # (Auto) 0.01 Last Resulted 12/21/17 05:30 Past 24 Hours Test 12/21/17 05:30 Range/Units Prothromb Time International Ratio 1.0 0.9-1.1 Prothrombin Time 10.6 9.0-12.0 SECONDS Date/Time Source Procedure Growth Status 12/18/17 21:30 Blood Blood Culture - Preliminary NO GROWTH TO DATE. Resulted 12/18/17 21:30 Blood Blood Culture - Preliminary NO GROWTH TO DATE. Resulted 12/19/17 01:40 Urine , Clean Catch Urine Culture - Final THREE TYPES OF ORGANISMS PRESENT, ALL... Complete Assessment and Plan 82 yo M w/ PMHx of CKD, CAD /OK s/p CABG, Diastolic HF, Paroxysmal Afib, T2DM , Diabetic neuropathy HTN, GERD, Hypothyroidism presenting with h/o 2 day history of progressive confusion within the context of over all decline for 2 months including weakness, poor memory recall, found to have Acute on Chronic kidney injury on arrival. Progressive Confusion, Weakness - unclear etiology, possibly due to polypharmacy, recently started on higher dose of Gabapentin, recently started on Percocet. cannot rule out infection, possible source is Left 5th toe ulcer. CT head wnl, no focal neural signs, CVA less likely given onset, duration. While arriving with Acute on Chronic CKD, no significant electrolyte abnormalities that would explain. -F/u blood cultures x2 d/c zosyn -Urine CX:"THREE TYPES OF ORGANISMS PRESENT, ALL LOW COUNTS PROBABLE SKIN KO. NO FURTHER IDENTIFICATIONS OR SENSITIVITIES TO FOLLOW. " - Dehydration is a likely etiology given his Cr and JUDI, Currently Resolving - Potentially a component of vascular dementia. Bradycardia -asyx -Per tele HR upper 50's lower 60 's -Holding Metoprolol for an HR less than 60, plan to decreasse dose and have a trail of meds tomorrow -May be developing increased sensitivity to B blockers Acute on CKD ( baseline Cr 1.5 - 2.5) - arrived with Cr 5.2 now 2.75 - Hold Bumex, Hold Losartan - IV NS at 60 mls/ hr - Nephrology consulted for input -- Creatinine has improved from 4.1 to 2.75 overnight. Patient is nonoliguric. Electrolyte balance is acceptable. -- Urinalysis is negative for blood or protein, abdominal CT is negative for hydronephrosis -- FeNa 1.1% -- Continue gentle hydration and monitor serial PRP -- Blood pressure remains acceptable. Continue to hold Losartan -- Baseline creatinine has been 2.0. Renal impairment is likely on the basis of microvascular disease -- Patient had relative hypotension on admission -- Hold Losartan and Spironolactone. Continue gentle hydration -- Blood & urine cultures are negative. Patient remains on Zosyn therapy NEURO: -- MS changes may have been related to titration of Gabapentin and introduction of Percocet. Recommend reducing/stopping Gabapentin and holding Percocet Toe Ulcer: Right 5th toe -Resolving -MRI foot -Mild dorsal soft tissue edema, No evidence of osteomyelitis, No evidence of abscess -D/C Vanc Zosyn empirically -Blood cx's see above Chest pain - resolved - EKG without acute ischemic changes - Initial troponin negative - likely not ACS , possible angina, GERD, MSK also considered - Follow Serial troponins - Given Resting Bradycardia, Metoprolol decreased to 50mg BID from 75 mg BID Diastolic CHF, CAD - stable, does not appear to be in exacerbation - 11/12: NO LV systolic function, NO wall motion abnormalities, EF 55-60% Moderate concentric LVH, Type 1 Diastolic Dysfunction, - previously on Bumex 2mg BID at home, Hold Bumex given Elevated Cr from baseline - Continue Spironolactone 25 mg BID, Metoprolol at above dose - Metoprolol 50 mg BID as above Paroxysmal Atrial fibrillation, CAD - rate controlled with Metoprolol, dose adjusted as above given Bradycardia - not on anticoagulation - Continue ASA DVT Rule Out -Pt reported new onset SOB + leg pain -F/U U/S to rule out DVT HLD -Zocor at home dose - F/u Lipid panel T2DM, Diabetic Neuropathy - ISS, Basal Insulin, BSG AC HS - HbA1C ordered -Decreased Gabapentin dose to 100 mg BID Hypothyroidism - Synthroid 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 PT/OT Resident Tracking Resident Involvement: Resident Care Provided Care Provided: Adult Hospital Medicine
[2017-12-21] MEDS: CLONAZEPAM 0.5 MG TAB PO SCH (08:01)
[2017-12-21] MEDS: PANTOprazole SOD 40 MG TAB PO SCH (08:01)
[2017-12-21] MEDS: ASPIRIN 81 MG ECTAB PO SCH (08:02)
[2017-12-21] MEDS: GABAPENTIN 100 MG CAP PO SCH (08:02)
[2017-12-21] MEDS: LEVOTHYROXINE 88 MCG TAB PO SCH (08:02)
[2017-12-21] MEDS: BUDESONIDE/FORMOTEROL FUMARATE 160/4.5 60 PUFFS/INHALER INH SCH (08:03)
[2017-12-21] MEDS: INSULIN ASPART 100 UNITS/ML 3 ML PEN SC SCH ×2 (08:30→12:38)
[2017-12-21] MEDS: HEPARIN SOD 5000 UNIT/0.5 ML CARP SQ SCH (08:30)
[2017-12-21] MEDS ORDERED: BUMETANIDE 1 MG TAB PO SCH (09:00)
[2017-12-21] MEDS ORDERED: INSULIN GLARGINE SOLOSTAR 100 UNITS/ML 3 ML PEN SC SCH (09:00)
[2017-12-21] MEDS ORDERED: METOPROLOL TARTRATE 25 MG TAB PO SCH (09:00)
--- NOTE | 2017-12-21 10:13 | Nephrology Progress Note ---
Nephrology Progress Note Date of Service Dec 21, 2017. Chief Complaint Acute on CKD Subjective Mr. Monroy was seen & examined in his hospital room this morning. He was alert & oriented to self, place and month. He has been participating in physical therapy. Mr. Monroy denied fever, angina or dyspnea. He reports good urine output. Review of Systems Constitutional: No fever Cardiovascular: No chest pain Respiratory: No dyspnea at rest Abdomen: No pain, No nausea, No vomiting Extremities: No leg edema Integumentary: No rash A complete review of systems was performed. Pertinent positives are noted above. All other systems are negative. Vital Signs Last 8 Hrs Date Time Temp Pulse Resp B/P (MAP) Pulse Ox O2 Delivery O2 Flow Rate FiO2 12/21/17 08:00 Room Air 12/21/17 07:17 36.4 61 16 124/62 (82) 98 Room Air 12/21/17 04:32 36.4 60 18 100/59 (73) 96 Room Air Last Recorded Weight Weight (Kilograms): 92.600 Physical Exam General Appearance: no apparent distress Head: normocephalic Eyes: PERRL, EOMI Neck: supple, no adenopathy Respiratory/Chest: lungs clear, no respiratory distress Cardiovascular: regular rate, rhythm Abdomen/GI: normal bowel sounds, non tender, soft Extremities/Musculoskelatal: no calf tenderness, no pedal edema Neurologic/Psych: alert, oriented x 3 Family History Heart disease Negative for CKD / ESRD Social History Smoking Status: Never smoker Alcohol Use: none Drug Use: none Marital Status: Housing Status: lives with family Occupation: retired . Retired. Former smoker Laboratory Results Past 24 Hours 12/21/17 05:30 Red Blood Count 3.08, Mean Corpuscular Volume 93.2, Mean Corpuscular Hemoglobin 30.5, Mean Corpuscular Hemoglobin Concent 32.8, Mean Platelet Volume 9.1, Neutrophils (%) (Auto) 57.1, Lymphocytes (%) (Auto) 31.4, Monocytes (%) (Auto) 6.9, Eosinophils (%) (Auto) 3.9, Basophils (%) (Auto) 0.2, Neutrophils # (Auto) 2.49, Lymphocytes # (Auto) 1.37, Monocytes # (Auto) 0.30, Eosinophils # (Auto) 0.17, Basophils # (Auto) 0.01 12/21/17 05:30 Test 12/20/17 11:57 12/20/17 16:49 12/20/17 20:29 12/21/17 05:30 Bedside Glucose 287 mg/dl (70-99) 170 mg/dl (70-99) 238 mg/dl (70-99) White Blood Count 4.36 K/uL (4.8-10.8) Red Blood Count 3.08 M/uL (4.7-6.1) Hemoglobin 9.4 g/dL (14.0-18.0) Hematocrit 28.7 % (42-52) Mean Corpuscular Volume 93.2 fL (80-100) Mean Corpuscular Hemoglobin 30.5 pg (25-34) Mean Corpuscular Hemoglobin Concent 32.8 g/dl (32-36) Platelet Count 136 K/uL (130-400) Mean Platelet Volume 9.1 fL (7.4-10.4) Neutrophils (%) (Auto) 57.1 % Lymphocytes (%) (Auto) 31.4 % Monocytes (%) (Auto) 6.9 % Eosinophils (%) (Auto) 3.9 % Basophils (%) (Auto) 0.2 % Neutrophils # (Auto) 2.49 K/uL (1.4-6.5) Lymphocytes # (Auto) 1.37 K/uL (1.2-3.4) Monocytes # (Auto) 0.30 K/uL (0.11-0.59) Eosinophils # (Auto) 0.17 K/uL (0-0.5) Basophils # (Auto) 0.01 K/uL (0-0.2) RDW Standard Deviation 45.2 fL (36.4-46.3) RDW Coefficient of Variation 13.4 % (11.5-14.5) Immature Granulocyte % (Auto) 0.5 % Immature Granulocyte # (Auto) 0.02 K/uL (0.00-0.02) Prothrombin Time 10.6 SECONDS (9.0-12.0) Prothromb Time International Ratio 1.0 (0.9-1.1) Activated Partial Thromboplast Time 26.4 SECONDS (21.0-31.0) Partial Thromboplastin Ratio 1.0 Anion Gap 7.0 mmol/L (3-11) Est Creatinine Clear Calc Drug Dose 34.3 ml/min Estimated GFR () 40.6 Estimated GFR (Non- 35.0 BUN/Creatinine Ratio 24.6 (10-20) Calcium Level 8.6 mg/dl (8.5-10.1) Magnesium Level 2.3 mg/dl (1.8-2.4) Test 12/21/17 07:29 Bedside Glucose 160 mg/dl (70-99) Allergies Coded Allergies: Ropinirole (Verified Adverse Reaction, Intermediate, CHANGE IN MENTAL STATUS, 11/22/16) Medications Current Inpatient Medications Medications (Trade) Dose Ordered Sig/Jodie Route Start Time Stop Time Status Last Admin Dose Admin Heparin Sodium (Porcine) (Heparin Sq 5000 Unit/0.5ml) 5,000 unit Q12 SQ 12/19/17 09:00 01/18/18 08:59 12/21/17 08:30 5,000 UNIT Sodium Chloride 1,000 ml @ 60 mls/hr [id number] IV 12/19/17 00:41 01/18/18 00:40 12/21/17 02:13 60 MLS/HR Acetaminophen (Tylenol Tab) 650 mg Q4H PRN PO 12/19/17 00:45 01/18/18 00:44 12/19/17 16:52 650 MG Al Hydrox/Mg Hydrox/Simethicone (Maalox Max Susp) 15 ml Q4H PRN PO 12/19/17 00:45 01/18/18 00:44 Magnesium Hydroxide (Milk Of Magnesia Susp) 30 ml Q12H PRN PO 12/19/17 00:45 01/18/18 00:44 Ondansetron HCl (Zofran Inj) 4 mg Q6H PRN IV 12/19/17 00:45 01/18/18 00:44 Polyethylene (Miralax Powder Packet) 17 gm DAILY PRN PO 12/19/17 00:45 01/18/18 00:44 Insulin Aspart (novoLOG ASPART) SLIDING SCALE If C... ACHS SC 12/19/17 06:30 01/18/18 06:29 12/21/17 08:30 7 UNITS Glucose (Glucose 40% Gel) 15-30 GRAMS 15 GRAMS... UD PRN PO 12/19/17 00:45 01/18/18 00:44 Glucose (Glucose Chew Tab) 4-8 Tablets 4 Tabl... UD PRN PO 12/19/17 00:45 01/18/18 00:44 Dextrose (Dextrose 50% 50ML Syringe) 25-50ML 25ML FOR ... UD PRN IV 12/19/17 00:45 01/18/18 00:44 Glucagon (Glucagon Inj) 1 mg UD PRN SQ 12/19/17 00:45 01/18/18 00:44 Carbohydrates (Carbohydrates For Hypoglycemia) 15-30 GRAMS 15 grams if BSG 54-69... UD PRN PO 12/19/17 00:45 01/18/18 00:44 Albuterol (Ventolin Hfa Inhaler) 2 puffs Q6H PRN INH 12/19/17 00:45 01/18/18 00:44 Aspirin (Ecotrin Tab) 81 mg BID PO 12/19/17 09:00 01/18/18 08:59 12/21/17 08:02 81 MG Budesonide/ Formoterol Fumarate (Symbicort 160/ 4.5 Inh) 2 puffs BID INH 12/19/17 09:00 01/18/18 08:59 12/21/17 08:03 2 PUFFS Clonazepam (Klonopin Tab) 0.5 mg QAM PO 12/19/17 09:00 01/18/18 08:59 12/21/17 08:01 0.5 MG Clonazepam (Klonopin Tab) 1 mg HS PO 12/19/17 21:00 01/18/18 20:59 12/20/17 21:05 1 MG Levothyroxine Sodium (Synthroid Tab) 88 mcg DAILYBB PO 12/19/17 06:30 01/18/18 06:29 12/21/17 08:02 88 MCG Pantoprazole Sodium (Protonix Tab) 40 mg QAM PO 12/19/17 09:00 01/18/18 08:59 12/21/17 08:01 40 MG Simvastatin (Zocor Tab) 20 mg HS PO 12/19/17 21:00 01/18/18 20:59 12/20/17 20:58 20 MG Daptomycin (Consult) 1 ea UD PRN N/A 12/19/17 03:30 01/18/18 03:29 Daptomycin 375 mg/ Syringe 7.5 ml @ 3.72 mls/ min Q48H IV 12/19/17 04:00 12/29/17 03:59 12/21/17 04:06 3.72 MLS/MIN Insulin Glargine (Lantus Solostar Pen) 10 units DAILY SC 12/21/17 09:00 01/20/18 08:59 12/21/17 08:30 10 UNITS Gabapentin (Neurontin Cap) 100 mg BID PO 12/20/17 21:00 01/18/18 08:59 12/21/17 08:02 100 MG Metoprolol Tartrate (Lopressor Tab) 12.5 mg BID PO 12/21/17 09:00 01/18/18 08:59 12/21/17 08:35 12.5 MG Bumetanide (Bumex Tab) 0.5 mg QAM PO 12/21/17 09:00 01/20/18 08:59 12/21/17 08:35 0.5 MG Impression (1) [id number] kidney injury (2) Altered mental status (3) Benign hypertension (4) Diabetes (5) Kidney stones Recommendations ACUTE KIDNEY INJURY: -- JUDI has resolved creatinine is 1.7 this morning CHRONIC KIDNEY DISEASE: -- Baseline creatinine has been 2.0. Renal impairment is likely on the basis of microvascular disease HYPERTENSION: --Blood pressure remains acceptable. Continue to hold Losartan and Spironolactone NEURO: -- MS changes may have been related to titration of Gabapentin and introduction of Percocet. Recommend reducing/stopping Gabapentin and holding Percocet No further Nephrology evaluation needed at this time. Will sign off. Please call if further assistance is needed. When patient is discharged from hospital please have him follow up with Dr. Dixon in the office in 1 - 2 weeks.
[2017-12-21 11:13] VITALS: BP 94/56; PULSE 54; TEMP 36.4; O2SAT 97
[2017-12-21 14:45] VITALS: BP 156/70; PULSE 60; TEMP 36.5; O2SAT 98
[2017-12-21] MEDS ORDERED: LPR25 PO (14:52)
[2017-12-21] MEDS ORDERED: NRN100 PO (14:52)
[2017-12-21] MEDS ORDERED: POTA-639 PO (14:52)
[2017-12-21] MEDS ORDERED: BMX1 PO (14:52)
[2017-12-21] MEDS ORDERED: DIPH1TAB87 PO (14:52)
[2017-12-21 15:25] VITALS: BP 156/70; PULSE 60; TEMP 36.5; O2SAT 98
--- NOTE | 2017-12-21 15:26 | Discharge Instructions ---
Discharge Instructions Date of Service Dec 21, 2017. Admission Reason for Admission: Acute On Chronic Kidney Injury Discharge Discharge Diagnosis / Problem: delirium related to dehydration Discharge Goals Goal(s): Diagnostic testing, Therapeutic intervention Activity Recommendations Activity Limitations: resume your previous activity . Instructions / Follow-Up Instructions / Follow-Up a) dehydration/elevated creatinine -while you came in acting confused and a little delirious, it appeared after further review that the main thing driving the delirium was that you were quite dehydrated - this appears to have been related to a lot of the medications that you take for your heart. after a few days of holding off meds and giving you IV fluids, not only are your kidney labs looking as good as they've looked in years, but you're also feeling better. to that end, we're making the following med changes: -bumex (bumetanide) - you were on 2mg three times a day, for now we'll drop that to 0.5mg twice a day -losartan (cozaar) - for now we're having you NOT take it at all -spironolactone (aldactone) - for now we're having you NOT take it at all as well -for now, this appears to be helping you out a good deal - of course, once you' re out of the hospital and "back in the wild" it's always harder to tell how your body will respond once your back to regular eating and drinking habits. -to help make these dose reductions permanent, if you're REALLY careful about sodium intake, it can help you dramatically need less heart/fluid meds -remember that sodium is not just in the salt shaker - most pre-prepared and prepackaged foods have a lot of sodium in them, so learn to read labels -work to stay at less than 1500mg of sodium a day (or if that's too tough to achieve, at least NO MORE than 2000mg of sodium a day) -we'll also want you to follow your body closely to ensure that the "new" balance between wet and dry with medicines is working well for you -dry: even though we've reduced your meds a lot, it's still theoretically possible that you can still be on more meds than you need - typically we don't see troubles with people being too dry until they're REALLY dry (like when you came in - with delirium, really elevated labs, etc) -- in that respect, we'll want Dr Pritesh Rothman following labs closely to ensure that your kidney numbers and electrolytes still stay good -- next labwork should be early/mid next week (BMP by Monday or Monday) -wet: we'll want to make sure you don't accumulate fluid too quickly once you' re home and on so much less medication -daily weight -- follow your weight daily - look at tomorrow morning's weight as a "new dry weight" -- if you gain more than 2lbs in a day, it should be a call to the doc for further instructions -breathing - if you're gaining fluid weight related to your heart, it will usually start to trickle out into your lungs - this will usually first start to show up as feeling short of breath either when laying flat or with exertion -- if you start to feel that way ( and especially if you feel that way in the context of weight gain) - call Dr Pritesh Rothman for further instructions -swelling - leg swelling is the least accurate of these measures to gauge if you are gaining fluid weight that needs to be medically managed - but of course , if you're starting to see new/worse leg swelling, we'd want you to call the doc that day for further directions as well b) low heart rate -your heart rates were fairly low when you came in. often as we age, our heart gets more sensitive to the effects of medications like metoprolol - at this point we've reduced the dose quite significantly to only 12.5mg twice a day -we'll want Dr Pritesh Rothman to follow your heart rates (possibly even with rhythm monitoring at home) to ensure that this dose is doing well - not letting your heart rate race since it's been a pretty big dose reduction, but also ensuring that even this low dose isn't too much -if you feel weak, lightheaded, or like you're going to pass out; or if you feel really oppressively fatigued, those can all be signs that your heart rates are still too low c) dosing of gabapentin -because the higher dose of gabapentin was prescribed right before you got delirious, it's possible that it played a role. certainly the dehydration and low heart rate were bigger players, but for now we felt it most reasonable to drop you back to the previous 100mg dosing d) sugar control -your A1c was 10.9. an A1c is a marker of how sugar covered your red blood cells are. a "good" A1c is going to be less than 7; although for you, it may be more reasonable to target something along the lines of 7.5. either way, 10.9 is quite high. remember that we worry about stuff like this because "high sugar clogs arteries" -- and the higher you are, and the longer you run high, the more you block up blood vessels that you can't get back -we didn't make any major changes to your insulins at this time - figuring that we made so many other medication changes that it was better to not "overdo" things when this is something that can continue to be managed out of the hospital -for now, take your medications the same as you have been, but start to look at reducing the "bad" carbs (sugary, bready, starchy, potato based, etc) in your diet -check your sugars about 2 hours after you eat - this becomes a great learning tool on how the food you're eating affects your body. as a reasonable rule, any time your sugar is above about 150, it can be doing a degree of vascular damage Current Hospital Diet Patient's current hospital diet: Renal Diet, Diabetes Type 2 Diet Discharge Diet Recommended Diet: Low Sodium Diet (2gm Na), Diabetes Type 2 Diet Pending Studies Studies pending at discharge: no Laboratory Results Hemoglobin A1c Test 12/18/17 21:30 Range/Units Estimated Average Glucose 266 mg/dl Hemoglobin A1c 10.9 H 4.5-5.6 % Lipid Panel Test 12/19/17 08:53 Range/Units Triglycerides Level 290 H 0-150 mg/dl Cholesterol Level 150 0-200 mg/dl HDL Cholesterol 33 mg/dl Cholesterol/HDL Ratio 4.5 LDL Cholesterol, Calculated 59 mg/dl Medical Emergencies . Who to Call and When: Medical Emergencies: If at any time you feel your situation is an emergency, please call 911 immediately. . Non-Emergent Contact Non-Emergency issues call your: Primary Care Provider . . "Provider Documentation" section prepared by Alexandru Harrell. .
[2017-12-21] MEDS ORDERED: BUME1TAB PO (15:41)
--- NOTE | 2017-12-21 22:38 | Discharge Summary ---
Discharge Summary Date of Service Dec 21, 2017. Discharge Summary Admission Date: Dec 18, 2017 at 23:55 Discharge Date: Dec 21, 2017 Discharge Disposition: Home Principal Diagnosis: delirium related to dehydration Immunizations: Have You Had Influenza Vaccine: Yes History of Tetanus Vaccine?: UTD Tetanus Immunization Date: Jul 24, 2003 History of Pneumococcal: Yes Pneumococcal Date: October 12, 2011 History of Hepatitis B Vaccine: Unknown Procedures: U/S Lower Extremity: IMPRESSION: No DVT within the right or left lower extremity. LE MRI: IMPRESSION: 1. Mild dorsal soft tissue edema 2. No evidence of osteomyelitis 3. No evidence of abscess C/T Abd/Pelvis: 1. No hydronephrosis or hydroureter. No ureteral calculi. Punctate left renal calculus.2. Moderate distention of the bladder. Irregular bladder wall thickening with trabeculations which suggests chronic bladder outlet obstruction. Mild enlargement of the prostate. 3. No bowel obstruction. CXR: Negative Head C/T: No acute intracranial abnormality. Consultations: Nephrology: -- Creatinine has improved from 4.1 to 2.75 overnight. Patient is nonoliguric. Electrolyte balance is acceptable. -- Urinalysis is negative for blood or protein, abdominal CT is negative for hydronephrosis -- FeNa 1.1% -- Continue gentle hydration and monitor serial PRP -- Blood pressure remains acceptable. Continue to hold Losartan -- Baseline creatinine has been 2.0. Renal impairment is likely on the basis of microvascular disease -- Patient had relative hypotension on admission -- Hold Losartan and Spironolactone. Continue gentle hydration -- Blood & urine cultures are negative. Patient remains on Zosyn therapy Medication Reconciliation New Medications: Bumetanide (Bumex) 1 Mg Tab 0.5 TAB PO BID, #60 TAB 1 Refill Gabapentin (Gabapentin) 100 Mg Cap 100 MG PO BID, #60 CAP Metoprolol Tartrate (Lopressor) 25 Mg Tab 12.5 MG PO BID, #60 TAB Changed Medications: Diphenhydramine Hcl (Benadryl Allergy) 25 Mg Tab 50 MG PO BID PRN for Allergic Reaction, #1 (Medication details modified) Potassium Ext Rel (Klor-Con) 20 Meq Tabcr 20 MEQ PO DAILY, #30 TAB (Changed from: TID) Continued Medications: Albuterol Hfa (Ventolin Hfa) 200 Puffs/71772 Mcg Aers 2 PUFFS INH Q6H PRN for Shortness of Breath Ascorbic Acid (Ascorbic Acid) 1,000 Mg Tab 1000 MG PO DAILY Aspirin (Aspirin Ec) 81 Mg Tab 81 MG PO BID Budesonide/Formoterol Fumarate (Symbicort 160/4.5 Inhaler ) Aero 2 PUFFS INH BID Calcium Carbonate-Vitamin D (Calcium 600 + D) 1 Tab Tab 1 TAB PO DAILY Clonazepam (Klonopin) 0.5 Mg Tab 0.5 MG PO QAM Clonazepam (Klonopin) 0.5 Mg Tab 1 MG PO HS Docusate Sodium (Colace) 100 Mg Cap 200 MG PO BID Insulin Human NPH (Novolin N) 100 Units/Ml Susp 55 UNITS SQ QAM Insulin Human NPH (Novolin N) 100 Units/Ml Susp 50 UNITS SQ QPM Levothyroxine Sodium (Levothyroxine Sodium) 88 Mcg Tab 88 MCG PO QAM, TAB Multiple Vitamins W/ Minerals (Ocuvite Adult 50+) 1 Cap Cap 1 CAP PO DAILY Multivitamin (Multivitamin) Tab 1 TAB PO QAM Pantoprazole (Protonix) 40 Mg Tab 40 MG PO QAM Polyethylene Glycol 3350 (Miralax) 1 Pow Pow 17 GM PO DAILY PRN for Constipation, GM Simvastatin (Zocor) 40 Mg Tab 20 MG PO HS Tiotropium Sylvester (Spiriva Handihaler) 30 Puff/540 Mcg Aerp 1 CAP INH QAM Discontinued Medications: Bumetanide (Bumetanide) 1 Mg Tab 2 MG PO TID Gabapentin (Neurontin) 100 Mg Cap 200 MG PO BID, CAP Losartan Potassium (Cozaar) 25 Mg Tab 25 MG PO DAILY, TAB Metoprolol Tartrate (Lopressor) (Lopressor) 50 Mg Tab 75 MG PO BID Oxycodone/Acetaminophen 5MG/325MG (Percocet 5MG/325MG) Tab 1 TABLET PO Q6H PRN for Pain, TAB PAIN Spironolactone (Aldactone) 25 Mg Tab 25 MG PO BID, TAB Discharge Exam Review of Systems: Constitutional: No fever, No chills, No sweats ENT: No hearing loss Respiratory: No cough, No sputum, No wheezing, No shortness of breath Cardiovascular: No chest pain Abdomen: No pain, No nausea, No vomiting, No diarrhea, No constipation Musculoskeletal: No joint pain, No muscle pain, No swelling, No calf pain Neurologic: No memory loss, No paralysis, No weakness Psychiatric: No depression symptoms Endocrine: No fatigue Hematologic / Lymphatic: No abnormal bleeding/bruising Integumentary: No rash, No itch, No new/changing skin lesions Physical Exam: General Appearance: WD/WN, no apparent distress Eyes: normal inspection, EOMI, sclerae normal Neck: supple, no adenopathy, thyroid normal, no carotid bruits, trachea midline Respiratory/Chest: chest non-tender, lungs clear, normal breath sounds, no respiratory distress, no accessory muscle use Cardiovascular: regular rate, rhythm, no gallop, no JVD, no murmur Abdomen / GI: normal bowel sounds, non tender, soft, no organomegaly, no pulsatile mass, occult blood negative Extremities: normal inspection, no calf tenderness Skin: normal color, warm/dry, no rash Lymphatic: no adenopathy Hospital Course 82 yo M w/ PMHx of CKD, CAD /SD s/p CABG, Diastolic HF, Paroxysmal Afib, T2DM , Diabetic neuropathy HTN, GERD, Hypothyroidism presenting with h/o 2 day history of progressive confusion within the context of over all decline for 2 months including weakness, poor memory recall, found to have Acute on Chronic kidney injury on arrival. Progressive Confusion, Weakness -placed on empirc zosyn and d/c'd following negative cultures - Urine CX showed "THREE TYPES OF ORGANISMS PRESENT, ALL LOW COUNTS PROBABLE SKIN KO. NO FURTHER IDENTIFICATIONS OR SENSITIVITIES TO FOLLOW. " - Dehydration was the likely etiology given his Cr and JUDI, resolved on d/c - There was potentially a component of vascular dementia. Bradycardia -was asyx during hospitalization -tele showed HR upper 50's lower 60 's -Held Metoprolol for an HR less than 60, DC'd on 12.5 of metoprolol -likely developed increased sensitivity to b-blockers Acute on CKD ( baseline Cr 1.5 - 2.5) - arrived with Cr 5.2 now 2.75 -> 1.77 oon d/c day - Hold Bumex, Hold Losartan - IV NS at 60 mls/ hr - Nephrology consulted see above NEURO: -- MS changes may have been related to titration of Gabapentin and introduction of Percocet. Percocet stopped. gabapentin decreased to 100 Toe Ulcer: Right 5th toe -Resolving on d/c -MRI foot -Mild dorsal soft tissue edema, No evidence of osteomyelitis, No evidence of abscess -Blood cx's see above Chest pain - resolved - EKG without acute ischemic changes - Initial troponin was negative - was not ACS , possible angina, GERD, MSK were considered - Serial troponins negative Diastolic CHF, CAD - stable, was not appear to be in exacerbation - 11/12: NO LV systolic function, NO wall motion abnormalities, EF 55-60% Moderate concentric LVH, Type 1 Diastolic Dysfunction, - previously on Bumex 2mg BID at home, decreased to .5mg bid -D/c'd Spironolactone 25 mg BID Paroxysmal Atrial fibrillation, CAD - rate controlled with Metoprolol, dose adjusted as above given Bradycardia - not on anticoagulation - Continued ASA DVT Rule Out -Pt reported new onset SOB + leg pain -U/S negative for DVT HLD -Zocor at home dose T2DM, Diabetic Neuropathy - ISS, Basal Insulin, BSG AC HS -Decreased Gabapentin dose to 100 mg BID Hypothyroidism - Synthroid Mild obstructed pulmonary Disease - evidenced on PFT in 10/2014 - stable - Continued home Albuterol INBH, Symbicort Depression/Anxiety -Klonopin at home dose PAD -offered referral to vascular surgery, deferred to outpatient management DVT PPX: Heparin Disposition: D/C home Resident Physician Supervision Note: I interviewed and examined the patient. Discussed with Dr. Gaitan and agree with findings and plan as documented in the note. Any exceptions or clarifications are listed here: None Documented By: Alexandru Harrell feeling better ready to go home. extensively reviewed med changes and what to watch for vitals noted nad breathing unlabored no pallor or icterus. delirium -suspect multifactorial encephalopathy w dehydration/JUDI being largest component , but possible polypharmacy as well, doubt foot ulcer plays a role since no clear cellulitis/sepsis/etc -improved JUDI -seems to relate mostly to diuretics. possibly his requirement has significantly lessened given no clear other changes -reduced dose - follow closely - he's to follow weight, breathing, swelling. ask that he have BMP drawn at PCP next week, close PCP f/u bradycardia - modifying metoprolol dose due to persistent bradycardia - ?again lessened requirement? ?early findings of slowly evolving sick sinus? follow on low dose closely, low threshold for rhythm monitoring dispo - stable for home, close PCP f/u otherwise as above Total Time Spent: Greater than 30 minutes This includes examination of the patient, discharge planning, medication reconciliation, and communication with other providers. Discharge Instructions Please refer to the electronic Patient Visit Report (Discharge Instructions) for additional information. Additional Copies To John Norman M.D. Resident Tracking Resident Involvement: Resident Care Provided Care Provided: Adult [facility]
== END 2017-12-21 16:34 | disposition home health service (06) | DRG 682 ==
LOC: C.EDB 21:09 → C.MED 23:55 → ENRESERV 12-19 00:15
PROVIDERS: ADMIT Hospitalist; ATTEND Family Medicine
DX: N17.9 Acute kidney failure, unspecified (principal); G93.40 Encephalopathy, unspecified; F05 Delirium due to known physiological condition; I50.30 Unspecified diastolic (congestive) heart failure; I13.0 Hypertensive heart and chronic kidney disease with heart failure and stage 1 through stage 4 chronic kidney disease, or unspecified chronic kidney disease; E86.0 Dehydration; R00.1 Bradycardia, unspecified; T42.6X5A Adverse effect of other antiepileptic and sedative-hypnotic drugs, initial encounter; T40.2X5A Adverse effect of other opioids, initial encounter; E87.5 Hyperkalemia; R07.89 Other chest pain; I95.9 Hypotension, unspecified; I25.119 Atherosclerotic heart disease of native coronary artery with unspecified angina pectoris; I48.0 Paroxysmal atrial fibrillation; N18.3 Chronic kidney disease, stage 3 (moderate); E11.22 Type 2 diabetes mellitus with diabetic chronic kidney disease; E11.621 Type 2 diabetes mellitus with foot ulcer; L97.519 Non-pressure chronic ulcer of other part of right foot with unspecified severity; E11.51 Type 2 diabetes mellitus with diabetic peripheral angiopathy without gangrene; E11.40 Type 2 diabetes mellitus with diabetic neuropathy, unspecified; J44.9 Chronic obstructive pulmonary disease, unspecified; K21.9 Gastro-esophageal reflux disease without esophagitis; E78.5 Hyperlipidemia, unspecified; E03.9 Hypothyroidism, unspecified; F01.50 Vascular dementia, unspecified severity, without behavioral disturbance, psychotic disturbance, mood disturbance, and anxiety; G25.81 Restless legs syndrome; F32.9 Major depressive disorder, single episode, unspecified; F41.9 Anxiety disorder, unspecified; I25.2 Old myocardial infarction; Z91.81 History of falling; Z95.1 Presence of aortocoronary bypass graft; Z96.653 Presence of artificial knee joint, bilateral; Z87.891 Personal history of nicotine dependence; Z79.82 Long term (current) use of aspirin; Z79.51 Long term (current) use of inhaled steroids; Z79.4 Long term (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; Z79.899 Other long term (current) drug therapy; Z88.8 Allergy status to other drugs, medicaments and biological substances

== ENCOUNTER → 2017-12-26 | Outpatient (CLI) | payer OTHER, MEDICARE ==
[~2017-12-26] MED LIST changes: -BMX1 PO; +BUME1TAB PO; +CALC-20 PO; -CALC600T9 PO; -GABA-112 PO; -HYDR-5688 PO; -LEVO75TA5 PO; +LEVO88TA3 PO; -LOSA1TAB PO; +LPR25 PO; -LUTE20TA PO; -METO50TA16 PO; +MULTCAP94 PO; +NRN100 PO; -OXYC-57 PO; +POLY335019 PO; -SNTO30 TOP; -SPIR25TA6 PO
[2017-12-26 07:05] LABS: BLOOD UREA NITROGEN 21 mg/dl (7-18); CALCIUM 8.6 mg/dl (8.5-10.1); CARBON DIOXIDE 29 mmol/L (21-32); CREATININE 1.55 mg/dl (0.60-1.40); GLUCOSE 120 mg/dl (70-99); POTASSIUM 3.9 mmol/L (3.5-5.1); SODIUM 141 mmol/L (136-145)
== END | disposition home or self-care (01) ==
LOC: C.LAB 05:50
PROVIDERS: ATTEND Internal Medicine
DX: I50.9 Heart failure, unspecified (principal)

== ENCOUNTER → 2018-01-18 | Outpatient (CLI) | payer OTHER, MEDICARE ==
[2018-01-18 17:54] LABS: ALBUMIN 3.7 gm/dl (3.4-5.0); BLOOD UREA NITROGEN 40 mg/dl (7-18); CARBON DIOXIDE 25 mmol/L (21-32); CREATININE 2.78 mg/dl (0.60-1.40); GLUCOSE 81 mg/dl (70-99); POTASSIUM 4.3 mmol/L (3.5-5.1); SODIUM 137 mmol/L (136-145)
== END | disposition home or self-care (01) ==
LOC: C.LAB 16:25
PROVIDERS: ATTEND Internal Medicine Nephrology
DX: N17.9 Acute kidney failure, unspecified (principal)

== ENCOUNTER 2019-10-30 21:10 | Observation (INO) ==
[2019-10-30] MEDS ORDERED: SODIUM CHLORIDE 0.9% 500 ML IV ONE (22:07)
[2019-10-30 22:34] LABS: Basophils # (auto) 0.01 K/uL (0-0.2); Basophils % (auto) 0.1 %; Eosinophils # (auto) 0.07 K/uL (0-0.5); Eosinophils % (auto) 0.9 %; Hemoglobin 12.5 g/dL (14.0-18.0); Immature Granulocytes # (auto) 0.02 K/uL (0.00-0.02); Immature Granulocytes % (auto) 0.3 %; Lymphocytes # (auto) 2.24 K/uL (1.2-3.4); Lymphocytes % (auto) 29.3 %; Mean Corpuscular Hemoglobin 30.6 pg (25-34); Mean Corpuscular Hgb Conc 33.8 g/dL (32-36); Mean Corpuscular Volume 90.7 fL (80-100); Mean Platelet Volume 10.1 fL (7.4-10.4); Monocytes # (auto) 0.49 K/uL (0.11-0.59); Monocytes % (auto) 6.4 %; Neutrophils # (auto) 4.82 K/uL (1.4-6.5); Platelet Count 149 K/uL (130-400); RDW Coefficient of Variation 13.3 % (11.5-14.5); RDW Standard Deviation 43.8 fL (36.4-46.3); Red Blood Count 4.08 M/uL (4.7-6.1); White Blood Count 7.65 K/uL (4.8-10.8)
[2019-10-30 22:46] LABS: INR 1.1 (0.9-1.1); Partial Thromboplastin Ratio 0.9; Partial Thromboplastin Time 24.2 Seconds (21.0-31.0); Prothrombin Time 11.1 Seconds (9.0-12.0)
[2019-10-30 22:55] LABS: Alanine Aminotransferase 25 U/L (12-78); Albumin Level 3.6 gm/dl (3.4-5.0); Aspartate Aminotransferase 22 U/L (15-37); BUN Creatinine Ratio 16.3 (10-20); Blood Urea Nitrogen 41 mg/dl (7-18); Calcium 8.8 mg/dl (8.5-10.1); Carbon Dioxide 26 mmol/L (21-32); Chloride 104 mmol/L (98-107); Est GFR (African American) 26.1; Est GFR (Non-African American) 22.5; Glucose 270 mg/dl (70-99); Lipase 87 U/L (73-393); Magnesium 2.3 mg/dl (1.8-2.4); Sodium 137 mmol/L (136-145)
[2019-10-30 23:06] LABS: Albumin Globulin Ratio 1.1 (0.9-2); Alkaline Phosphatase 73 U/L (45-117); Bilirubin,Total 0.3 mg/dl (0.2-1); Globulin 3.4 gm/dl (2.5-4.0); NT Pro B Type Natriuretic Pept 310 pg/ml (0-1800); Phosphorus 3.4 mg/dl (2.5-4.9); Troponin I < 0.015 ng/ml (0-0.045)
--- NOTE | 2019-10-31 01:27 | Emergency Department Note ---
Impression & Plan Near syncope, Acute on chronic renal insufficiency, Acute urinary retention, Dehydration ED Provider Note NAME: BRIAN NEWMAN AGE: 84 SEX: M ARRIVES VIA: Walk-In INFORMANT: Patient, ED PROVIDER(S): Bill Cruz MD CHIEF COMPLAINT: Dizziness, abdominal bloating, urinary retention. PLAN: Disposition: Admit MEDICAL DECISION MAKING: The patient is a pleasant 84-year-old gentleman with a past medical history of CAD, CHF, CKD, BPH who presents emergency department with lightheadedness/near syncope that has been ongoing since 4 PM today after he reports doing some woodworking and bending down but symptoms persisted. He also reports increased abdominal distention and inability to urinate over the past 48 hours. Denies fever, cough, diarrhea. On arrival the patient is fatigued appearing but no acute distress, afebrile with stable vital signs though blood pressure lower than the patient's usual in the 100s/50s. He appears clinically dry. His abdomen is mildly distended but soft and nontender. He has 1+ bilateral lower extremity pitting edema which he reports is good for him. No focal neuro deficits. WBC and platelets within normal limits. H/H 12.5/37.0 similar to prior range of values. Chemistry without acidosis. However creatinine is 2.5 which is increased from patient's baseline of 1.5-1.7. LFTs and electrolytes unremarkable. Troponin negative/undetectable. BNP within normal limits. Lipase within normal limits. CT of the abdomen pelvis was performed and demonstrates fully dilated bladder in the setting of the patient reporting he is unable to urinate consistent with urinary retention. There is no hydronephrosis however. UA negative for infection. Thus, given the patient's acute on chronic renal insufficiency in the setting of his bladder outlet obstruction which is likely related to his BPH reasonable to admit the patient for further management. Patient is agreeable with this. Case was [place] [facility] [place] who will evaluate the patient for admission. Triage Nursing notes reviewed and agree them. Prior medical records reviewed Vital Signs: reviewed and remarkable for no significant abnormalities Differential diagnosis: Benign positional vertigo, dehydration, hypovolemia, anemia, tumor, infection, hypoglycemia, electrolyte abnormalities, cardiac sources, intracerebral event, toxicologic, neurologic, as well as other pathologies. ER treatment provided: See below. Diagnostics interpreted by me: ECG: Normal sinus rhythm, 76 bpm, first degree AVB, RBBB, No ectopy, no over ST elevation or depression, Similar to 01/19/2019. Cardiac Monitoring: An order for continuous cardiac monitoring was placed and demonstrated NSR, 76 bpm, no ectopy. Laboratory studies: See below Imaging studies: CXR: No free air. No focal infiltrates STATRAD: Preliminary Findings Only See Final Report For Complete Findings CT ABDOMEN & PELVIS Without Contrast: Comparison to January 20, 2019. The liver, pancreas, spleen, adrenal glands, and kidneys appear nonacute. No hydronephrosis or ureterolithiasis is seen. Slight perinephric stranding is nonspecific and can be seen with renal insufficiency. The urinary bladder is fully distended measuring 16.4 cmlong axis. The patient is unable to void, consider urinary retention. Mild constipation with 6.9 cm of stool in the cecum. Bowel loops are nondilated. No pneumoperitoneum, free fluid, or focal inflammatory changes are identified. Severely calcified but nondilated abdominal aorta. Severe degenerative changes throughout the lumbar spine with previous multilevel fusion extending fromL2-L5with previous laminectomy. No acute fracture is seen. Consultation(s): Case was discussed with Dr. Gaitan, [facility] [place], who will evaluate the patient for admission. HPI: The patient is a pleasant 84-year-old gentleman with a past medical history of CAD, CHF, CKD, BPH who presents emergency department with lightheadedness/near syncope that has been ongoing since 4 PM today after he reports doing some woodworking and bending down but symptoms persisted. He also reports increased abdominal distention and inability to urinate over the past 48 hours. Denies fever, cough, diarrhea. ROS: See above HPI for pertinent positives & negatives. A total of 10 systems reviewed and were otherwise negative. PAST MEDICAL HISTORY:See Below PAST SURGICAL HISTORY:See Below FAMILY HISTORY:See Below SOCIAL HISTORY:See Below HOME MEDICATIONS:See Below ALLERGIES:See Below VITALS:See Below PHYSICAL EXAMINATION: GENERAL: Awake, alert, fatigued-appearing, in no distress HENT: Normocephalic, atraumatic. Oropharynx with dry mucous membranes and otherwise unremarkable. EYES: Normal conjunctiva. Sclera non-icteric. NECK: Supple. No nuchal rigidity. FROM. No JVD. RESPIRATORY: Clear to auscultation. CARDIAC: Regular rate, normal rhythm. Extremities warm and well perfused. Pulses equal. ABDOMEN: Mildly distended but soft and nontender. No rebound or guarding. No masses. RECTAL: Deferred. MUSCULOSKELETAL: Chest examination reveals no tenderness. The back is symmetrical on inspection without obvious abnormality. There is no CVA te nderness to palpation. No joint edema. LOWER EXTREMITIES: Calves are equal size bilaterally and non-tender. 1+ bilateral lower extremity edema. No discoloration. NEURO: Normal sensorium. No sensory or motor deficits noted. 5/5 strength and SILT x 4 extremities. Cerebellar function intact including [id number], alternating palms, [id number]. SKIN: No rash or jaundice noted. Bill Cruz MD Past Med/Surg History Medical History Angioplasty of blood vessel (Resolved 08/26/12) ~1993 Anxiety Arthritis Asthma Atrial fibrillation treated with medication. Follows with Dr. Gr Blindness of left eye BPH (benign prostatic hyperplasia) CAD (coronary artery disease) CHF (congestive heart failure) (Resolved) Chronic kidney disease Follows with Dr. Dixon Chronic obstructive pulmonary disease Degenerative disc disease Diabetes Type 2 IDDM Fusion of spine lumbar GERD (gastroesophageal reflux disease) (Chronic) Hiatal hernia Hyperlipidemia Hypertension Hypothyroidism Kidney stones Macular degeneration Myocardial infarct (Resolved) ~1993 Nephrolithiasis (02/28/13) Peripheral neuropathy Pneumonia hx Rupture of left distal biceps tendon (Resolved) hx - no surgery Surgical History History of appendectomy History of cardiac cath with angioplasty ~1993 ([facility]) & 2013 (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: No Beliefs That Will Affect Care: None marital status: Current Living Situation: Spouse current occupational status: retired Feels Safe at Home: Yes Smoking Status: Former smoker Tobacco Type: cigars ; Second Hand Exposure: Yes (hx) ; Hx Alcohol Use: No Hx Substance Use: No Allergies Allergies Allergy/AdvReac Type Severity Reaction Status Date / Time ropinirole AdvReac Intermediate CHANGE IN Verified 05/03/19 13:22 MENTAL STATUS Home Meds Home Medications Medication Instructions Recorded Confirmed albuterol sulfate 90 mcg/actuation 2 puffs INHALATION QID PRN gm 01/10/19 10/30/19 aerosol inhaler budesonide-formoterol HFA 160 2 puffs INHALATION BID gm 01/10/19 10/31/19 mcg-4.5 mcg/actuation aerosol inhaler bumetanide 2 mg tablet 3 mg PO BID #180 tab 01/10/19 10/31/19 diphenhydramine HCl 25 mg capsule 50 mg PO BID cap 01/10/19 10/31/19 docusate sodium 100 mg capsule 200 mg PO BID cap 01/10/19 10/31/19 gabapentin 100 mg capsule 300 mg PO HS #30 cap 01/10/19 10/31/19 levothyroxine 88 mcg tablet 88 mcg PO QAM #90 tab 01/10/19 10/31/19 metoprolol tartrate 25 mg tablet 25 mg PO BID #90 tab 01/10/19 10/31/19 multivitamin 1 tab PO DAILY 01/10/19 10/31/19 pantoprazole 40 mg tablet,delayed 40 mg PO QAM #30 tab 01/10/19 10/31/19 release potassium chloride 20 mEq 10 - 20 meq PO BID tab 01/10/19 10/31/19 tablet,extended release tiotropium bromide 18 mcg capsule 1 cap INHALATION DAILY #90 puffs 01/10/19 10/31/19 with inhalation device Lantus Solostar U-100 Insulin 30 unit SUBCUT BID 01/20/19 10/31/19 Fiber Gummies 2 g PO DAILY 04/23/19 10/31/19 Ocuvite Adult 50 Plus 1 cap PO DAILY 04/23/19 10/31/19 aspirin [Aspirin Low Dose] 81 mg PO BID 04/23/19 10/31/19 finasteride 5 mg PO HS 04/23/19 10/31/19 gabapentin 200 mg PO QAM 04/23/19 10/31/19 losartan 25 mg PO QAM 04/23/19 10/31/19 simvastatin 40 mg PO HS 04/23/19 10/31/19 tamsulosin 0.4 mg PO HS 04/23/19 10/31/19 Results & Data (ED) Vital Signs Vital Signs - 24 hr 10/30/19 21:15 10/30/19 21:37 10/30/19 21:42 Temperature 37.4 C Temperature Source Oral Pulse Rate 77 70 71 Pulse Rate [Right Finger] Pulse Rate from SpO2 Sensor 70 72 Pulse Rhythm [Right Finger] Pulse Strength [Right Finger] Respiratory Rate 18 16 20 Respiratory Depth Normal Respiratory Pattern Blood Pressure 113/57 L 126/51 L Blood Pressure [Right Arm] Blood Pressure Mean 75 70 Blood Pressure Mean [Right Arm] Blood Pressure Position [Right Arm] Pulse Oximetry 98 97 97 Oxygen Delivery Method Room Air Sepsis Recent Fever Within 48 Hours No Sepsis New/Unexplained Change in Mental Status No Sepsis Action Taken by Nursing No Action Required 10/30/19 22:00 10/30/19 22:01 10/30/19 22:30 Temperature Temperature Source Pulse Rate 69 69 64 Pulse Rate [Right Finger] Pulse Rate from SpO2 Sensor 69 69 65 Pulse Rhythm [Right Finger] Pulse Strength [Right Finger] Respiratory Rate 18 20 Respiratory Depth Respiratory Pattern Blood Pressure 102/51 L 107/63 Blood Pressure [Right Arm] Blood Pressure Mean 70 78 Blood Pressure Mean [Right Arm] Blood Pressure Position [Right Arm] Pulse Oximetry 95 95 95 Oxygen Delivery Method Sepsis Recent Fever Within 48 Hours Sepsis New/Unexplained Change in Mental Status Sepsis Action Taken by Nursing 10/30/19 23:00 10/30/19 23:01 10/30/19 23:30 Temperature Temperature Source Pulse Rate 63 63 62 Pulse Rate [Right Finger] Pulse Rate from SpO2 Sensor 64 63 61 Pulse Rhythm [Right Finger] Pulse Strength [Right Finger] Respiratory Rate 16 19 16 Respiratory Depth Respiratory Pattern Blood Pressure 88/47 L Blood Pressure [Right Arm] Blood Pressure Mean 59 Blood Pressure Mean [Right Arm] Blood Pressure Position [Right Arm] Pulse Oximetry 94 96 96 Oxygen Delivery Method Sepsis Recent Fever Within 48 Hours Sepsis New/Unexplained Change in Mental Status Sepsis Action Taken by Nursing 10/30/19 23:31 10/31/19 00:00 10/31/19 00:24 Temperature Temperature Source Pulse Rate 62 70 Pulse Rate [Right Finger] 65 Pulse Rate from SpO2 Sensor 62 71 Pulse Rhythm [Right Finger] Regular Pulse Strength [Right Finger] Normal Respiratory Rate 16 20 18 Respiratory Depth Normal Respiratory Pattern Regular Blood Pressure 97/58 L 102/53 L Blood Pressure [Right Arm] 102/53 L Blood Pressure Mean 65 68 Blood Pressure Mean [Right Arm] 69 Blood Pressure Position [Right Arm] Lying Pulse Oximetry 96 96 93 Oxygen Delivery Method Room Air Sepsis Recent Fever Within 48 Hours Sepsis New/Unexplained Change in Mental Status Sepsis Action Taken by Nursing Laboratory Data Attestation: I reviewed the patient's lab results. Result diagrams: 10/30/19 21:49 10/30/19 21:49 Lab Results 10/30/19 10/30/19 10/30/19 Range/Units 21:49 21:49 21:49 WBC 7.65 (4.8-10.8) K/uL RBC 4.08 L (4.7-6.1) M/uL Hgb 12.5 L (14.0-18.0) g/dL Hct 37.0 L (42-52) % MCV 90.7 (80-100) fL MCH 30.6 (25-34) pg MCHC 33.8 (32-36) g/dL RDW Std Deviation 43.8 (36.4-46.3) fL RDW Coeff of Adrian 13.3 (11.5-14.5) % Plt Count 149 (130-400) K/uL MPV 10.1 (7.4-10.4) fL Immature Gran % (Auto) 0.3 % Neut % (Auto) 63.0 % Lymph % (Auto) 29.3 % [place] % (Auto) 6.4 % Eos % (Auto) 0.9 % Baso % (Auto) 0.1 % Immature Gran # (Auto) 0.02 (0.00-0.02) K/uL Neut # (Auto) 4.82 (1.4-6.5) K/uL Lymph # (Auto) 2.24 (1.2-3.4) K/uL [place] # (Auto) 0.49 (0.11-0.59) K/uL Eos # (Auto) 0.07 (0-0.5) K/uL Baso # (Auto) 0.01 (0-0.2) K/uL PT 11.1 (9.0-12.0) Seconds INR 1.1 (0.9-1.1) APTT 24.2 (21.0-31.0) Seconds PTT Ratio 0.9 Sodium 137 (136-145) mmol/L Potassium 4.0 (3.5-5.1) mmol/L Chloride 104 (98-107) mmol/L Carbon Dioxide 26 (21-32) mmol/L Anion Gap 7.0 (3-11) BUN 41 H (7-18) mg/dl Creatinine 2.52 H (0.6-1.4) mg/dl Est Cr Clr Drug Dosing Not Reportable Est GFR ( Amer) 26.1 Est GFR (Non-Af Amer) 22.5 BUN/Creatinine Ratio 16.3 (10-20) Glucose 270 H (70-99) mg/dl Calcium 8.8 (8.5-10.1) mg/dl Phosphorus 3.4 (2.5-4.9) mg/dl Magnesium 2.3 (1.8-2.4) mg/dl Total Bilirubin 0.3 (0.2-1) mg/dl AST 22 (15-37) U/L ALT 25 (12-78) U/L Alkaline Phosphatase 73 (45-117) U/L Troponin I < 0.015 (0-0.045) ng/ml NT-Pro-B Natriuret Pep 310 (0-1800) pg/ml Total Protein 7.0 (6.4-8.2) gm/dl Albumin 3.6 (3.4-5.0) gm/dl Globulin 3.4 (2.5-4.0) gm/dl Albumin/Globulin Ratio 1.1 (0.9-2) Lipase 87 (73-393) U/L TSH 2.430 (0.300-4.500) uIu/ml Urine Color Urine Appearance (Clear) Urine pH (4.5-7.5) Ur Specific [place] (1.000-1.030) Urine Protein (Negative) Urine Glucose (UA) (Negative) Urine Ketones (Negative) Urine Blood (Negative) Urine Nitrite (Negative) Urine Bilirubin (Negative) Urine Urobilinogen (Negative) Ur Leukocyte Esterase (Negative) 10/31/19 Range/Units 02:32 WBC (4.8-10.8) K/uL RBC (4.7-6.1) M/uL Hgb (14.0-18.0) g/dL Hct (42-52) % MCV (80-100) fL MCH (25-34) pg MCHC (32-36) g/dL RDW Std Deviation (36.4-46.3) fL RDW Coeff of Adrian (11.5-14.5) % Plt Count (130-400) K/uL MPV (7.4-10.4) fL Immature Gran % (Auto) % Neut % (Auto) % Lymph % (Auto) % [place] % (Auto) % Eos % (Auto) % Baso % (Auto) % Immature Gran # (Auto) (0.00-0.02) K/uL Neut # (Auto) (1.4-6.5) K/uL Lymph # (Auto) (1.2-3.4) K/uL [place] # (Auto) (0.11-0.59) K/uL Eos # (Auto) (0-0.5) K/uL Baso # (Auto) (0-0.2) K/uL PT (9.0-12.0) Seconds INR (0.9-1.1) APTT (21.0-31.0) Seconds PTT Ratio Sodium (136-145) mmol/L Potassium (3.5-5.1) mmol/L Chloride (98-107) mmol/L Carbon Dioxide (21-32) mmol/L Anion Gap (3-11) BUN (7-18) mg/dl Creatinine (0.6-1.4) mg/dl Est Cr Clr Drug Dosing Est GFR ( Amer) Est GFR (Non-Af Amer) BUN/Creatinine Ratio (10-20) Glucose (70-99) mg/dl Calcium (8.5-10.1) mg/dl Phosphorus (2.5-4.9) mg/dl Magnesium (1.8-2.4) mg/dl Total Bilirubin (0.2-1) mg/dl AST (15-37) U/L ALT (12-78) U/L Alkaline Phosphatase (45-117) U/L Troponin I (0-0.045) ng/ml NT-Pro-B Natriuret Pep (0-1800) pg/ml Total Protein (6.4-8.2) gm/dl Albumin (3.4-5.0) gm/dl Globulin (2.5-4.0) gm/dl Albumin/Globulin Ratio (0.9-2) Lipase (73-393) U/L TSH (0.300-4.500) uIu/ml Urine Color Yellow Urine Appearance Clear (Clear) Urine pH 5.0 (4.5-7.5) Ur Specific [place] 1.014 (1.000-1.030) Urine Protein Negative (Negative) Urine Glucose (UA) 1+ H (Negative) Urine Ketones Negative (Negative) Urine Blood Negative (Negative) Urine Nitrite Negative (Negative) Urine Bilirubin Negative (Negative) Urine Urobilinogen Negative (Negative) Ur Leukocyte Esterase Negative (Negative) Administered Medications Discontinued Medications Sodium Chloride (Nss) 500 mls @ 999 mls/hr IV .Q31M ONE Stop: 10/30/19 22:37 Last Infusion: 10/30/19 22:46 Dose: 0 mls/hr Documented by: [id number] Admin: 10/30/19 22:14 Dose: 999 mls/hr Documented by: [id number] Insulin Aspart (Novolog Per Unit) 3 units SC ONE STA Stop: 10/31/19 02:32 Last Admin: 10/31/19 03:09 Dose: 3 units Documented by: [id number] Cosigned by: [id number] Lidocaine HCl (Xylocaine 2% Jelly) 5 ml EXT NOW STA Stop: 10/31/19 01:42 Last Admin: 10/31/19 02:35 Dose: 5 ml Documented by: [id number] Blood Pressure Blood Pressure Findings: Low blood pressure Blood Pressure Disposition: further management by hospitalist Discharge Plan Visit Data Chief Complaint: Hypotension Stated Complaint: HYPOTENSION ED Provider: Bill Cruz Discharge Problem: Near syncope, Acute on chronic renal insufficiency, Acute urinary retention, Dehydration Forms Stand Alone Forms: My Emair Prescriptions Prescriptions: No Action diphenhydramine HCl 25 mg capsule 50 mg PO BID RF: 0 docusate sodium 100 mg capsule 200 mg PO BID RF: 0 gabapentin 100 mg capsule 300 mg PO HS Qty: 30 RF: 0 metoprolol tartrate 25 mg tablet 25 mg PO BID Qty: 90 RF: 0 multivitamin [Daily Multi-Vitamin] tablet 1 tab PO DAILY RF: 0 pantoprazole 40 mg tablet,delayed release (DR/EC) 40 mg PO QAM Qty: 30 RF: 0 Spiriva with HandiHaler 18 mcg capsule, w/inhalation device 1 cap inhalation DAILY Qty: 90 RF: 0 levothyroxine 88 mcg tablet 88 mcg PO QAM Qty: 90 RF: 0 albuterol sulfate 90 mcg/actuation HFA aerosol inhaler 2 puffs inhalation QID PRN (Reason: shortness of breath or wheezing) RF: 0 Symbicort 160-4.5 mcg/actuation HFA aerosol inhaler 2 puffs inhalation BID RF: 0 bumetanide 2 mg tablet 3 mg PO BID Qty: 180 RF: 0 potassium chloride 20 mEq tablet extended release 10 - 20 meq PO BID RF: 0 Lantus Solostar U-100 Insulin 100 unit/mL (3 mL) Insulin Pen 30 unit SUBCUT BID RF: 0 aspirin [Aspirin Low Dose] 81 mg Tablet,Delayed Release (Dr/Ec) 81 mg PO BID RF: 0 simvastatin 40 mg Tablet 40 mg PO HS RF: 0 gabapentin 100 mg Capsule 200 mg PO QAM RF: 0 Ocuvite Adult 50 Plus 250-5-1 mg Capsule 1 cap PO DAILY RF: 0 Fiber Gummies 2 gram Tablet,Chewable 2 g PO DAILY RF: 0 tamsulosin 0.4 mg capsule 0.4 mg PO HS RF: 0 losartan 25 mg tablet 25 mg PO QAM RF: 0 finasteride 5 mg tablet 5 mg PO HS RF: 0 Referrals Referrals: Cory Nunez DO [Primary Care Provider] -
[2019-10-31] MEDS ORDERED: LIDOCAINE 2% JELLY 5 ML TUBE EXT STA (01:41)
--- NOTE | 2019-10-31 01:43 | History & Physical Report ---
Date of Service October 31, 2019 Assessment & Plan (1) Acute kidney injury superimposed on CKD: Aj is an 84-year-old male with a past medical history of chronic kidney disease, CHF, CAD status post triple bypass and with residual disease not amenable to PCI and followed by Dr. Severino, type 2 diabetes mellitus, and BPH followed by Dr. Gunter who presents with 1 month of increasing fatigue and abdominal distention acutely worsened for 1 day with associated decreased urinary output. Acute kidney injury on CKD 2/2 obstructive uropathy with BPH Creatinine acutely elevated to 2.52 from baseline of approximately 1.461.7 Patient endorses slowly progressive abdominal distention and decreased urinary output similar to episodes of BPH exacerbation he has had in the past Place Lopez, follow strict KENNY's Continue finasteride 5 mg p.o. at bedtime Continue tamsulosin 0.4 mg p.o. at bedtime Hold Bumex, follow fluid status versus creatinine. Last echo with normal EF BMP daily CAD w/ Hx [place] & triple bipass Last dobutamine stress echo in 02/2019 was negative for myocardial ischemia. Normal biventricular systolic function was observed, moderate concentric LVH was present. Continue aspirin 81 mg daily Continue losartan 25 mg p.o. every morning Continue metoprolol tartrate 25 mg twice daily, hold for systolic BP less than 100 or diastolic BP less than 50 Continue simvastatin 40 mg p.o. at bedtime Type 2 diabetes mellitus Glucose 270 on admission A1c pending Insulin glargine 8 twice daily dose reduced to 8 daily, Sliding scale insulin correction factor 50, carbohydrate ratio 16 Goal BSG 457802 Continue gabapentin 200 mg p.o. every morning, 300 mg nightly for neuropathy Hypothyroidism Continue Synthroid 88 mcg p.o. daily TSH pending DVT prophylaxis: Heparin 5000 every 12 Diet: Heart healthy, carb consistent IVFM: NSS 100cc/hr Disposition: MedSurg (2) CHF (congestive heart failure): (3) GERD (gastroesophageal reflux disease): (4) Diabetes: (5) CAD (coronary artery disease): History of Present Illness Chief Complaint: Abdominal pain, lightheadedness, decreased urinary output Primary Care Provider: Cory Nunez DO Aj is an 84-year-old male with a past medical history of chronic kidney disease, CHF, CAD status post triple bypass and with residual disease not amenable to PCI and followed by Dr. Severino, type 2 diabetes mellitus, and BPH followed by Dr. Gunter who presents with 1 month of increasing fatigue and abdominal distention acutely worsened for 1 day with associated decreased urinary output. Aj reports he was in his normal state of health until approximately 1 month ago when he had slowly increasing abdominal distention and some lightheadedness. He feels that the evening of discharge he felt much more lightheaded than normal and like he was going to pass out. His blood pressure at home was 79/52 and was instructed to come to the emergency department by his son Zaire who is also an EMT. Aj reports that he has known BPH with prior retention symptoms. He is on finasteride and tamsulosin at home. He endorses intermittent weak stream and decreased urinary output. Denies any history of blood in the urine, or painful urination. He reports he is not sure if he has to strain to urinate at times because he has chronic rib pain and does not want exacerbated by straining. He denies flank pain, endorses epigastric pain/tenderness. He endorses a history of diabetes managed with insulin. He has diabetic nephropathy and neuropathy. Denies current ulcers or infections. He has a history of coronary artery disease with distant triple-vessel bypass and he was followed by Dr. Severino. He has been evaluated for PCI but due to tortuous vessels and anatomy has been told he is not a candidate for stenting or balloon angioplasty. He has had increasing shortness of breath with his abdominal distention, otherwise endorses shortness of breath with exertion at baseline for which he occasionally uses a mobility scooter. He is not having any chest pain or shortness of breath at time of HPI. Medical history: Reviewed Medications: Reviewed Surgical history: Reviewed Allergies: Reviewed Family history: Reviewed CODE STATUS: Full code, confirmed with patient. His surrogate decision maker or he unable to make decisions would be his . Allergies Allergy/AdvReac Type Severity Reaction Status Date / Time ropinirole AdvReac Intermediate CHANGE IN Verified 05/03/19 13:22 MENTAL STATUS Home Medications Home Medications Medication Instructions Recorded Confirmed Type albuterol sulfate 90 mcg/actuation 2 puffs INHALATION QID PRN gm 01/10/19 10/30/19 History aerosol inhaler budesonide-formoterol HFA 160 2 puffs INHALATION BID gm 01/10/19 10/31/19 History mcg-4.5 mcg/actuation aerosol inhaler bumetanide 2 mg tablet 3 mg PO BID #180 tab 01/10/19 10/31/19 History diphenhydramine HCl 25 mg capsule 50 mg PO BID cap 01/10/19 10/31/19 History docusate sodium 100 mg capsule 200 mg PO BID cap 01/10/19 10/31/19 History gabapentin 100 mg capsule 300 mg PO HS #30 cap 01/10/19 10/31/19 History levothyroxine 88 mcg tablet 88 mcg PO QAM #90 tab 01/10/19 10/31/19 History metoprolol tartrate 25 mg tablet 25 mg PO BID #90 tab 01/10/19 10/31/19 History multivitamin 1 tab PO DAILY 01/10/19 10/31/19 History pantoprazole 40 mg tablet,delayed 40 mg PO QAM #30 tab 01/10/19 10/31/19 History release potassium chloride 20 mEq 10 - 20 meq PO BID tab 01/10/19 10/31/19 History tablet,extended release tiotropium bromide 18 mcg capsule 1 cap INHALATION DAILY #90 puffs 01/10/19 10/31/19 History with inhalation device Lantus Solostar U-100 Insulin 30 unit SUBCUT BID 01/20/19 10/31/19 History Fiber Gummies 2 g PO DAILY 04/23/19 10/31/19 History Ocuvite Adult 50 Plus 1 cap PO DAILY 04/23/19 10/31/19 History aspirin [Aspirin Low Dose] 81 mg PO BID 04/23/19 10/31/19 History finasteride 5 mg PO HS 04/23/19 10/31/19 History gabapentin 200 mg PO QAM 04/23/19 10/31/19 History losartan 25 mg PO QAM 04/23/19 10/31/19 History simvastatin 40 mg PO HS 04/23/19 10/31/19 History tamsulosin 0.4 mg PO HS 04/23/19 10/31/19 History Past Med/Surg History Medical History Angioplasty of blood vessel (Resolved 08/26/12) ~1993 Anxiety Arthritis Asthma Atrial fibrillation treated with medication. Follows with Dr. Gr Blindness of left eye BPH (benign prostatic hyperplasia) CAD (coronary artery disease) CHF (congestive heart failure) (Resolved) Chronic kidney disease Follows with Dr. Dixon Chronic obstructive pulmonary disease Degenerative disc disease Diabetes Type 2 IDDM Fusion of spine lumbar GERD (gastroesophageal reflux disease) (Chronic) Hiatal hernia Hyperlipidemia Hypertension Hypothyroidism Kidney stones Macular degeneration Myocardial infarct (Resolved) ~1993 Nephrolithiasis (02/28/13) Peripheral neuropathy Pneumonia hx Rupture of left distal biceps tendon (Resolved) hx - no surgery Surgical History History of appendectomy History of cardiac cath with angioplasty ~1993 ([facility]) & 2013 ([facility]) History of cataract surgery bilateral History of coronary artery bypass graft x3 vessels ([facility] 2013) History of revision of total replacement of right knee joint History of tonsillectomy History of tooth extraction History of total left knee replacement History of total right knee replacement S/P cholecystectomy Family History Brother Heart disease Diabetes Sister Cancer Mother Diabetes Father Diabetes Other Hypertension Kidney disease Social History Preferred Language: Georgian Communication Ability: Effective Service Secretary Required: No Beliefs That Will Affect Care: None marital status: Current Living Situation: Spouse current occupational status: retired Feels Safe at Home: Yes Smoking Status: Former smoker Tobacco Type: cigars ; Do You Dip or Chew Tobacco: No ; Second Hand Exposure: Yes (hx) ; Hx Alcohol Use: No Hx Substance Use: No Review of Systems Review of Systems: Constitutional: Denies fever, chills. Endorses progressive weakness, presyncope denies syncope Eyes: Endorses partial blindness and chronic vision loss with diabetic retinopathy. No acute vision change, no eye pain ENT: Denies ear pain, sore throat, sinus pain Cardiovascular: See HPI Respiratory: See HPI Gastrointestinal: See HPI Genitourinary: See HPI Musculoskeletal: Endorses global weakness without focal weakness or acute change. Integumentary:Denies acute rash, lesions, bruising Neurological: Endorses hand and foot diabetic neuropathy. Deniesacute sensation change or focal weakness Physical Exam Physical Exam: General: A&Ox3. NAD. Cooperative. HEENT: Atraumatic, normocephalic. Visual acuity decreased bilaterally. Pupils equal and reactive to light and accommodation. Mucous membranes tacky. Pulm: CTAB A&P. -wheezes, -rales, -rhonchi. Symmetrical chest rise. No increase work of breathing. No respiratory distress. Cardiac: RRR, systolic murmur present. Radial pulses intact and symmetrical. Abdominal: Distended, mild epigastric tenderness without rebound tenderness or rigidity. Bowel sounds diminished. Extremities: Pitting edema through the calf bilaterally. Sensation diminished but grossly intact in fingers and toes bilaterally. Radial and PT pulses intact and symmetrical. Moving upper extremities equally. Ankle plantarflexion/dorsiflexion intact in lower extremities bilaterally. Results & Data Results & Data ([facility]) Vital Signs (Past 12 Hours) Vital Signs Temp Pulse Pulse Resp BP BP Pulse Ox 10/31/19 00:24 65 18 102/53 L 93 10/31/19 00:00 70 20 102/53 L 96 10/30/19 23:31 62 16 97/58 L 96 10/30/19 23:30 62 16 96 10/30/19 23:01 63 19 88/47 L 96 10/30/19 23:00 63 16 94 10/30/19 22:30 64 20 107/63 95 10/30/19 22:01 69 102/51 L 95 10/30/19 22:00 69 18 95 10/30/19 21:42 71 20 97 10/30/19 21:37 70 16 126/51 L 97 10/30/19 21:15 37.4 C 77 18 113/57 L 98 Supervising Physician Co-Signing Physician Notes Patient seen and examined, chart reviewed, case discussed with Dr. London and I agree with his assessment and plan as documented above Resident Activity Tracking Resident Involvement: Resident Care Provided Care Provided: Adult Hospital Medicine
[2019-10-31] MEDS ORDERED: INSULIN ASPART PER UNIT SC STA (02:31)
[2019-10-31 02:43] LABS: Appearance Urine Clear (Clear); Bilirubin Urine Negative (Negative); Blood Urine Negative (Negative); Color Urine Yellow; Glucose Urine UA 1+ (Negative); Ketones Urine Negative (Negative); Leukocyte Esterase Urine Negative (Negative); Nitrite Urine Negative (Negative); Protein Urine Negative (Negative); Specific Gravity Urine 1.014 (1.000-1.030); Urobilinogen Urine Negative (Negative)
[2019-10-31] MEDS ORDERED: GLUCAGON FOR INJ 1 MG VIAL SQ PRN (05:11)
[2019-10-31] MEDS ORDERED: GLUCOSE 10 TABS/TUBE PO PRN (05:11)
[2019-10-31] MEDS ORDERED: GLUCOSE 40% GEL 15 GM TUBE PO PRN (05:11)
[2019-10-31] MEDS ORDERED: DEXTROSE 50% 50 ML SYRINGE IV PRN (05:11)
[2019-10-31] MEDS ORDERED: ACETAMINOPHEN 325 MG TAB PO PRN (05:11)
[2019-10-31] MEDS ORDERED: CARBOHYDRATES FOR HYPOGLYCEMIA PO PRN (05:11)
[2019-10-31] MEDS ORDERED: MoRPHine SULFATE 2 MG/ML CARP IV ONE (05:28)
[2019-10-31] MEDS: LEVOTHYROXINE SODIUM 88 MCG TABLET PO SCH (05:48)
[2019-10-31] MEDS: SODIUM CHLORIDE 0.9% 1000ML 1,000 ML IV SCH ×2 (05:48→14:22)
--- NOTE | 2019-10-31 07:05 | Billing Data ---
Date of Service October 31, 2019 Coding Level of Care Code 30379 Initial Inpt Care Lvl 3
--- NOTE | 2019-10-31 07:08 | CT Scan Report ---
CT SCAN OF THE ABDOMEN AND PELVIS WITHOUT CONTRAST CLINICAL HISTORY: abd pain bloating COMPARISON STUDY: January 20, 2019 TECHNIQUE: CT scan of the abdomen and pelvis was performed from the lung bases to the proximal femurs . Images are reviewed in the axial, sagittal, and coronal planes. IV contrast was not administered fo r this examination. A dose lowering technique was utilized adhering to the principles of ALARA. CT DOSE: 606.01 mGy.cm FINDINGS: Lower chest: The heart is normal in size and configuration, without pericardial effusion. The lung ba ses and pleural spaces are clear. Liver: The unenhanced liver is normal in size, contour, and attenuation. There is no intrahepatic pia iary ductal dilatation. Gallbladder: Not visualized presumed surgically absent Spleen: Normal in size and attenuation. Pancreas: Unremarkable. Adrenal glands: Unremarkable. Kidneys: There is a punctate nonobstructing lower pole left renal calculus. There is no hydronephrosi s. There is a 16 mm lower pole left renal cyst. Bowel: There are no transition zones to indicate bowel obstruction. There is no evidence of acute div erticulitis. There are no findings to indicate acute appendicitis. There is a mild to moderate amount of colonic stool present. Peritoneum: There is no intraperitoneal free air or abdominal ascites. Vasculature: There are moderate diffuse atheromatous changes. There is no evidence of abdominal aorti c aneurysm Adenopathy: None. Pelvic viscera: The bladder is distended. The bladder is minimally thick-walled given the degree of d istention. There is mild prostatic enlargement. There is a small fat-containing right inguinal hernia . Skeletal structures: Postsurgical changes are present within the lumbar spine. IMPRESSION: 1. No evidence of bowel obstruction. No evidence of free air 2. No evidence of acute diverticulitis. No evidence of acute appendicitis. 3. Distended urinary bladder ACT 112: Negative or not required by law. Electronically signed by: Julio Garcia M.D. 10/31/2019 7:07 AM
--- NOTE | 2019-10-31 07:13 | XRay Report ---
XR chest 1V portable HISTORY: Atypical Chest Pain COMPARISON: Chest 12/18/2017. FINDINGS: There are poststernotomy changes. The heart is normal in size. No pleural effusions. No pne umothorax. The lungs are clear. IMPRESSION: No acute process. ACT 112: Negative or not required by law. Electronically signed by: Otoniel Olivarez M.D. 10/31/2019 7:11 AM
[2019-10-31] MEDS ORDERED: POTASSIUM CHLORIDE 20 MEQ TABCR PO SCH (09:00)
[2019-10-31] MEDS: GABAPENTIN 100 MG CAP PO SCH (09:03)
[2019-10-31] MEDS: ASPIRIN 81 MG ECTAB PO SCH ×2 (09:03→20:55)
[2019-10-31] MEDS: DOCUSATE SODIUM 100 MG CAP PO SCH ×2 (09:03→20:56)
[2019-10-31] MEDS: MULTIVITAMIN TAB PO SCH (09:04)
[2019-10-31] MEDS: METOPROLOL TARTRATE 25 MG TAB PO SCH ×2 (09:04→20:56)
[2019-10-31] MEDS: PANTOprazole 40 MG TAB PO SCH (09:04)
[2019-10-31] MEDS: HEPARIN SOD 5,000 UNIT/0.5 ML VIAL SQ SCH ×2 (09:05→20:59)
[2019-10-31] MEDS: FLUTICASONE/VILANTEROL 200/25MCG 14 PUFFS/INHALER INH SCH (09:06)
[2019-10-31] MEDS: UMECLIDINIUM BROMIDE 62.5MCG/BLISTER 7 PUFFS/INHALER INH SCH (09:06)
[2019-10-31] MEDS: INSULIN GLARGINE SOLOSTAR 100 UNITS/ML 3 ML PEN SC SCH (09:07)
[2019-10-31] MEDS: INSULIN ASPART 100 UNITS/ML 3 ML PEN SC SCH ×4 (09:08→21:15)
[2019-10-31 12:25] LABS: BUN Creatinine Ratio 19.9 (10-20); Calcium 8.3 mg/dl (8.5-10.1); Creatinine Clr Calc Pharmacy 30.9 ml/min; Est GFR (African American) 38.4; Est GFR (Non-African American) 33.1
[2019-10-31 12:33] LABS: Estimated Average Glucose 252 mg/dl; Hemoglobin A1C 10.4 % (4.5-5.6)
--- NOTE | 2019-10-31 14:11 | Hospitalist Progress Note ---
Date of Service October 31, 2019 Assessment & Plan (1) Acute kidney injury superimposed on CKD: Joseph an 84-year-old with a past medical history of chronic kidney disease, CHF, CAD status post triple bypass and with residual disease not amenable to PCI and followed by Dr. Severino, type 2 diabetes mellitus, and BPH followed by Dr. Gunter who presents with 1 month of increasing fatigue and abdominal distention acutely worsened for 1 day with associated decreased urinary output. Acute kidney injury on CKD 2/2 obstructive uropathy with BPH Creatinine acutely elevated to 2.52 from baseline of approximately 1.461.7 -Appears to be both post renal and pre renal patient admits to decreased intake and with hypotension was clearly intravascularly depleted. In addition patient was obstructed secondary to prostatic hyperplasia. Patient endorses slowly progressive abdominal distention and decreased urinary output similar to episodes of BPH exacerbation he has had in the past Jeronimo in place, monitoring I's and O's urine output is yellow and dilute at present. - Patient now asymptomatic Continue finasteride 5 mg p.o. at bedtime Continue tamsulosin 0.4 mg p.o. at bedtime - Holding bumex will follow creatinine . BMP daily - Urology consulted for obstruction - Will most likely need some sort of extermination supervisor plan for his BPH be it surgical or group home jeronimo catheterization CAD w/ Hx [place] & triple bipass Last dobutamine stress echo in 02/2019 was negative for myocardial ischemia. Normal biventricular systolic function was observed, moderate concentric LVH was present. - He tells me that urology did not want to proceed with any sort of procedure secondary to his ischemic heart history. Continue aspirin 81 mg daily Continue losartan 25 mg p.o. every morning Continue metoprolol tartrate 25 mg twice daily, hold for systolic BP less than 100 or diastolic BP less than 50 Continue simvastatin 40 mg p.o. at bedtime Type 2 diabetes mellitus Glucose 270 on admission A1c pending Insulin glargine 8 twice daily dose reduced to 8 daily, Sliding scale insulin correction factor 50, carbohydrate ratio 16 Goal BSG 164319 Continue gabapentin 200 mg p.o. every morning, 300 mg nightly for neuropathy Hypothyroidism Continue Synthroid 88 mcg p.o. daily DVT prophylaxis: Heparin 5000 every 12 Diet: Heart healthy, carb consistent IVFM: NSS 100cc/hr Disposition: MedSurg pending urology evaluation and extermination supervisor plan for his BPH. Full Code Admission and Anticipated Discharge Date Admission Date: October 31, 2019 Supervising Physician Co-Signing Physician Notes Resident Physician Supervision Note: I independently interviewed and examined the patient and verified the aguayo history and physical, reviewed labs and image studies, discussed the case with the resident Dr. Flor and agree with the findings and care plan. Subjective Chang Monroy tells me he is feeling better than he has in months. He knew that his prostate obstruction was continuing to get worse as his urinary production had been less and less, but he tells me he is "too stubborn" to come in and didn't want to "fuss his ". He feels already in his usual state of health and has not had any more lightheadedness or pre syncopal episodes. Denies any palpitations, no further chest pain, no shortness of breath, some mild abdominal pain that has greatly improved since being relieved after jeronimo insertion. Review of Systems Review of Systems: All systems reviewed & are unremarkable except as noted in HPI & below Physical Exam Physical Exam: General: A&Ox3. NAD. Cooperative. HEENT: Pupils equal and reactive to light and accommodation. Pulm: CTAB A&P. -wheezes, -rales, -rhonchi. Symmetrical chest rise. No increase work of breathing. No respiratory distress. Cardiac: RRR, systolic murmur present. Radial pulses intact and symmetrical. Abdominal: Abdomen soft, nontender Extremities: Pitting edema through the calf bilaterally. Results & Data Results & Data ([facility]) Vital Signs (Past 12 Hours) Vital Signs Temp Pulse Pulse Resp BP BP Pulse Ox 10/31/19 07:11 36.2 C L 58 L 16 127/70 97 10/31/19 04:50 36.4 C L 75 20 152/64 H 98 10/31/19 04:14 69 18 128/64 96 10/31/19 04:00 59 L 16 110/63 96 Resident Activity Tracking Resident Involvement: Resident Care Provided Care Provided: Adult [facility]
--- NOTE | 2019-10-31 15:00 | Urology Consultation ---
Date of Consultation October 31, 2019 Assessment & Plan (1) Acute urinary retention: Assessment Urinary retention Patient currently has a Lopez which I would leave indwelling for 10 to 14 days He should follow-up in our office for voiding trial after that time. He is probably going to need some type of surgical procedure to the prostate. Check a urine culture Continue to monitor creatinine No urologic intervention planned at this time reconsult as needed History of Present Illness Attending Physician: Cyndi Grimm MD History of Present Illness Patient is an 84 old white male admitted to the hospital with acute kidney injury and urinary retention. He is known to have a large prostate. He has had episodes of retention in the past. Currently on Flomax and Proscar. He says he had been voiding okay up until several days ago when he developed noticed some abdominal bloating and a decrease in his urine output. He also had some lightheadedness so he came to the emergency room. He had a CT scan done showing some punctate renal calculus and also a distended urinary bladder. Lopez catheter was placed and he says he thinks it drained about 2 L although I cannot find anything in the chart about how much was in his bladder. Currently said he feels much better. Lopez catheter is draining well urine is clear Allergies Allergy/AdvReac Type Severity Reaction Status Date / Time ropinirole AdvReac Intermediate CHANGE IN Verified 05/03/19 13:22 MENTAL STATUS Home Medications Home Medications Medication Instructions Recorded Confirmed Type albuterol sulfate 90 mcg/actuation 2 puffs INHALATION QID PRN gm 01/10/19 10/30/19 History aerosol inhaler budesonide-formoterol HFA 160 2 puffs INHALATION BID 01/10/19 10/31/19 History mcg-4.5 mcg/actuation aerosol inhaler bumetanide 2 mg tablet 3 mg PO BID #180 tab 01/10/19 10/31/19 History diphenhydramine HCl 25 mg capsule 50 mg PO BID cap 01/10/19 10/31/19 History docusate sodium 100 mg capsule 200 mg PO BID cap 01/10/19 10/31/19 History gabapentin 100 mg capsule 300 mg PO HS #30 cap 01/10/19 10/31/19 History levothyroxine 88 mcg tablet 88 mcg PO QAM #90 tab 01/10/19 10/31/19 History metoprolol tartrate 25 mg tablet 25 mg PO BID #90 tab 01/10/19 10/31/19 History multivitamin 1 tab PO DAILY 01/10/19 10/31/19 History pantoprazole 40 mg tablet,delayed 40 mg PO QAM #30 tab 01/10/19 10/31/19 History release potassium chloride 20 mEq 10 - 20 meq PO BID tab 01/10/19 10/31/19 History tablet,extended release tiotropium bromide 18 mcg capsule 1 cap INHALATION DAILY #90 puffs 01/10/19 10/31/19 History with inhalation device Lantus Solostar U-100 Insulin 30 unit SUBCUT BID 01/20/19 10/31/19 History Fiber Gummies 2 g PO DAILY 04/23/19 10/31/19 History Ocuvite Adult 50 Plus 1 cap PO DAILY 04/23/19 10/31/19 History aspirin [Aspirin Low Dose] 81 mg PO BID 04/23/19 10/31/19 History finasteride 5 mg PO HS 04/23/19 10/31/19 History gabapentin 200 mg PO QAM 04/23/19 10/31/19 History losartan 25 mg PO QAM 04/23/19 10/31/19 History simvastatin 40 mg PO HS 04/23/19 10/31/19 History tamsulosin 0.4 mg PO HS 04/23/19 10/31/19 History Patient History Medical History Angioplasty of blood vessel (Resolved 08/26/12) ~1993 Anxiety Arthritis Asthma Atrial fibrillation treated with medication. Follows with Dr. Gr Blindness of left eye BPH (benign prostatic hyperplasia) CAD (coronary artery disease) CHF (congestive heart failure) (Resolved) Chronic kidney disease Follows with Dr. Dixon Chronic obstructive pulmonary disease Degenerative disc disease Diabetes Type 2 IDDM Fusion of spine lumbar GERD (gastroesophageal reflux disease) (Chronic) Hiatal hernia Hyperlipidemia Hypertension Hypothyroidism Kidney stones Macular degeneration Myocardial infarct (Resolved) ~1993 Nephrolithiasis (02/28/13) Peripheral neuropathy Pneumonia hx Rupture of left distal biceps tendon (Resolved) hx - no surgery Surgical History History of appendectomy History of cardiac cath with angioplasty ~1993 ([facility]) & 2013 ([facility]) History of cataract surgery bilateral History of coronary artery bypass graft x3 vessels ([facility] 2014) History of revision of total replacement of right knee joint History of tonsillectomy History of tooth extraction History of total left knee replacement History of total right knee replacement S/P cholecystectomy Family History Brother Heart disease Diabetes Sister Cancer Mother Diabetes Father Diabetes Other Hypertension Kidney disease Social History Preferred Language: Greenlandic Communication Ability: Effective Cart Attendant Required: No Beliefs That Will Affect Care: None marital status: Current Living Situation: Spouse current occupational status: retired Feels Safe at Home: Yes Smoking Status: Former smoker Tobacco Type: cigars ; Do You Dip or Chew Tobacco: No ; Second Hand Exposure: Yes (hx) ; Hx Alcohol Use: No Hx Substance Use: No Review of Systems Review of Systems: Review of systems reviewed from his admitting history and physical Physical Exam Physical Exam: Constitutional Well-developed well-nourished In no acute distress, Healthy appearing Neuro/psych Alert and oriented x3 Normal mood Normal affect Normal coordination Skin Normal color Normal turgor No rashes Warm and Dry Neck Normal visual inspection Pulmonary Normal rhythm and effort No respiratory distress No audible wheezes Able to speak in complete sentences Cardiac No peripheral edema Results & Data Vital Signs (Past 12 Hours) Vital Signs Temp Pulse Pulse Resp BP BP Pulse Ox 10/31/19 07:11 36.2 C L 58 L 16 127/70 97 10/31/19 04:50 36.4 C L 75 20 152/64 H 98 10/31/19 04:14 69 18 128/64 96 10/31/19 04:00 59 L 16 110/63 96 PG Care Time/CCT Total # of Minutes Spent Total Time Spent with Patient: Total time spent is greater than 50% in coordination of care (as documented) at patient's floor/unit and/or counseling patient: Coding Level of Care Code 18510 Initial Inpt Care Lvl 2 Diagnoses Acute urinary retention R33.8
[2019-10-31] MEDS ORDERED: TAMSULOSIN HCL 0.4 MG CAP PO SCH (21:00)
[2019-10-31] MEDS ORDERED: SIMVASTATIN 40 MG TAB PO SCH (21:00)
[2019-10-31] MEDS ORDERED: FINASTERIDE 5 MG TAB PO SCH (21:00)
[2019-10-31] MEDS ORDERED: GABAPENTIN 300 MG CAP PO SCH (21:00)
[2019-11-01] MEDS: LEVOTHYROXINE SODIUM 88 MCG TABLET PO SCH (05:07)
[2019-11-01 06:44] LABS: BUN Creatinine Ratio 17.7 (10-20); Calcium 8.1 mg/dl (8.5-10.1); Creatinine Clr Calc Pharmacy 36.5 ml/min; Est GFR (African American) 46.9; Est GFR (Non-African American) 40.5; Potassium 4.1 mmol/L (3.5-5.1)
[2019-11-01] MEDS: INSULIN ASPART 100 UNITS/ML 3 ML PEN SC SCH ×2 (08:48→12:52)
[2019-11-01] MEDS: INSULIN GLARGINE SOLOSTAR 100 UNITS/ML 3 ML PEN SC SCH (08:49)
[2019-11-01] MEDS: HEPARIN SOD 5,000 UNIT/0.5 ML VIAL SQ SCH (08:49)
[2019-11-01] MEDS: DOCUSATE SODIUM 100 MG CAP PO SCH (08:52)
[2019-11-01] MEDS: UMECLIDINIUM BROMIDE 62.5MCG/BLISTER 7 PUFFS/INHALER INH SCH (08:52)
[2019-11-01] MEDS: FLUTICASONE/VILANTEROL 200/25MCG 14 PUFFS/INHALER INH SCH (08:52)
[2019-11-01] MEDS: PANTOprazole 40 MG TAB PO SCH (08:53)
[2019-11-01] MEDS: ASPIRIN 81 MG ECTAB PO SCH (08:53)
[2019-11-01] MEDS: GABAPENTIN 100 MG CAP PO SCH (08:53)
[2019-11-01] MEDS: MULTIVITAMIN TAB PO SCH (08:53)
[2019-11-01] MEDS: METOPROLOL TARTRATE 25 MG TAB PO SCH (08:54)
--- NOTE | 2019-11-01 11:41 | Discharge Summary ---
Date of Service November 01, 2019 Admission HPI Per Admitting Provider Aj is an 84-year-old male with a past medical history of chronic kidney disease, CHF, CAD status post triple bypass and with residual disease not amenable to PCI and followed by Dr. Severino, type 2 diabetes mellitus, and BPH followed by Dr. Gunter who presents with 1 month of increasing fatigue and abdominal distention acutely worsened for 1 day with associated decreased urinary output. Aj reports he was in his normal state of health until approximately 1 month ago when he had slowly increasing abdominal distention and some lightheadedness. He feels that the evening of discharge he felt much more ligh theaded than normal and like he was going to pass out. His blood pressure at home was 79/52 and was instructed to come to the emergency department by his son Zaire who is also an EMT. Aj reports that he has known BPH with prior retention symptoms. He is on finasteride and tamsulosin at home. He endorses intermittent weak stream and decreased urinary output. Denies any history of blood in the urine, or painful urination. He reports he is not sure if he has to strain to urinate at times because he has chronic rib pain and does not want exacerbated by straining. He denies flank pain, endorses epigastric pain/tenderness. He endorses a history of diabetes managed with insulin. He has diabetic nephropathy and neuropathy. Denies current ulcers or infections. He has a history of coronary artery disease with distant triple-vessel bypass and he was followed by Dr. Severino. He has been evaluated for PCI but due to tortuous vessels and anatomy has been told he is not a candidate for stenting or balloon angioplasty. He has had increasing shortness of breath with his abdominal distention, otherwise endorses shortness of breath with exertion at baseline for which he occasionally uses a mobility scooter. He is not having any chest pain or shortness of breath at time of HPI. Medical history: Reviewed Medications: Reviewed Surgical history: Reviewed Allergies: Reviewed Family history: Reviewed CODE STATUS: Full code, confirmed with patient. His surrogate decision maker or he unable to make decisions would be his . Admission Exam Per Admitting Provider General: A&Ox3. NAD. Cooperative. HEENT: Atraumatic, normocephalic. Visual acuity decreased bilaterally. Pupils equal and reactive to light and accommodation. Mucous membranes tacky. Pulm: CTAB A&P. -wheezes, -rales, -rhonchi. Symmetrical chest rise. No increase work of breathing. No respiratory distress. Cardiac: RRR, systolic murmur present. Radial pulses intact and symmetrical. Abdominal: Distended, mild epigastric tenderness without rebound tenderness or rigidity. Bowel sounds diminished. Extremities: Pitting edema through the calf bilaterally. Sensation diminished but grossly intact in fingers and toes bilaterally. Radial and PT pulses intact and symmetrical. Moving upper extremities equally. Ankle plantarflexion/dorsif lexion intact in lower extremities bilaterally. Principal Diagnosis Urinary obstruction Discharge Exam General: A&Ox3. NAD. Cooperative. HEENT: Pupils equal and reactive to light and accommodation. Pulm: CTAB A&P. -wheezes, -rales, -rhonchi. Symmetrical chest rise. No increase work of breathing. No respiratory distress. Cardiac: RRR, systolic murmur present. Radial pulses intact and symmetrical. Abdominal: Abdomen soft, nontender Extremities: Pitting edema through the calf bilaterally. Discharge Data Allergies Allergy/AdvReac Type Severity Reaction Status Date / Time ropinirole AdvReac Intermediate CHANGE IN Verified 05/03/19 13:22 MENTAL STATUS Consultations 10/31/19 00:39 ED Decision to Admit Stat 10/31/19 09:17 Consult Urology Routine Ordered Studies 10/30/19 23:00 CT abd pelvis wo con Urgent Hospital Course (1) Acute kidney injury superimposed on CKD: Joseph an 84-year-old with a past medical history of chronic kidney disease, CHF, CAD status post triple bypass and with residual disease not amenable to PCI and followed by Dr. Severino, type 2 diabetes mellitus, and BPH followed by Dr. Gunter who presents with 1 month of increasing fatigue and abdominal distention acutely worsened for 1 day with associated decreased urinary output. Acute kidney injury on CKD stage 3 2/2 obstructive uropathy with BPH Creatinine acutely elevated to 2.52 from baseline of approximately 1.5-1.7 -Appears to be both post renal and pre renal patient admits to decreased intake and with hypotension was clearly intravascularly depleted. In addition patient was obstructed secondary to prostatic hyperplasia. Patient endorses slowly progressive abdominal distention and decreased urinary output similar to episodes of BPH exacerbation he has had in the past Jeronimo placed Continue finasteride 5 mg p.o. at bedtime Continue tamsulosin 0.4 mg p.o. at bedtime - REsuming home bumex recommend outpatient bmp within the next week to check creatinine for continued improvement - Urology consulted for obstruction recommend a 10-14 day follow up in their office for evaluation for possible TURP - Will most likely need some sort of retirement plan for his BPH be it surgical or retirement jeronimo catheterization CAD w/ Hx MA & triple bypass Last dobutamine stress echo in 02/2019 was negative for myocardial ischemia. Normal biventricular systolic function was observed, moderate concentric LVH was present. - He tells me that urology did not want to proceed with any sort of procedure secondary to his ischemic heart history but based on their notes and review of his last echo he seems as though he would be a reasonable though high risk candidate for a low risk procedure. Continue aspirin 81 mg daily Continue losartan 25 mg p.o. every morning Continue metoprolol tartrate 25 mg twice daily Continue simvastatin 40 mg p.o. at bedtime Chronic diastolic heart failure -Euvolemic -Diuretics held on admission due to JUDI - resumed on discharge. Type 2 diabetes mellitus Glucose 270 on admission A1c 10.4 will need tighter control in outpatient setting Hypothyroidism Continue Synthroid 88 mcg p.o. daily Full Code but does not want any dialysis or "life support" May benefit from POLST form discussion on discharge. Total Time Total Time Spent Total Time Spent (In Minutes): 45 Discharge Plan Discharge Items Patient Disposition: Home - Self-Care Reason For Visit: JUDI ON CKD, BPH OUTLET OBS Discharge Diagnosis: BPH outlet obstruction resulting in JUDI on CKD Activity: Per Instructions section Non-emergency contact: Primary Care Provider and Urologist Call non-emergency contact if: your symptoms worsen Follow-up/Referrals: Cory Nunez DO [Primary Care Provider] - Diet: Heart Healthy Addtl Attending Provider Instructions: Chang, It's been a pleasure taking care of you here at [facility]. We believe your Benign Prostatic Hyperplasia (Enlarged prostate) has obstructed your flow of urine causing your symptoms. This led to an acute kidney injury and dehydration. Both of these have improved with the placement of a jeronimo catheter and with IV rehydration. At this point you are feeling back to normal and your kidney function continues to improve. We recommend you go home with catheter in place and follow up with urology in 10-14 days. They are considering a procedural intervention for your prostate moving forward. I would also recommend a follow up appointment in the next week or so with your primary care provider so he can recheck your kidney function and electrolyte levels to make sure you are continuing to get back to normal. It was a pleasure meeting you and hearing your stories and I sincerely wish you all the best moving forward sir. Dr. Tyrel Flor. Pending Studies at Discharge: No Stand-Alone Forms: My [facility], Smoking Cessation Medications and DC Order Prescriptions: Continued diphenhydramine HCl 25 mg capsule 50 mg PO BID RF: 0 docusate sodium 100 mg capsule 200 mg PO BID RF: 0 gabapentin 100 mg capsule 300 mg PO HS Qty: 30 RF: 0 metoprolol tartrate 25 mg tablet 25 mg PO BID Qty: 90 RF: 0 multivitamin [Daily Multi-Vitamin] tablet 1 tab PO DAILY RF: 0 pantoprazole 40 mg tablet,delayed release (DR/EC) 40 mg PO QAM Qty: 30 RF: 0 Spiriva with HandiHaler 18 mcg capsule, w/inhalation device 1 cap inhalation DAILY Qty: 90 RF: 0 levothyroxine 88 mcg tablet 88 mcg PO QAM Qty: 90 RF: 0 albuterol sulfate 90 mcg/actuation HFA aerosol inhaler 2 puffs inhalation QID PRN (Reason: shortness of breath or wheezing) RF: 0 Symbicort 160-4.5 mcg/actuation HFA aerosol inhaler 2 puffs inhalation BID RF: 0 bumetanide 2 mg tablet 3 mg PO BID Qty: 180 RF: 0 potassium chloride 20 mEq tablet extended release 10 - 20 meq PO BID RF: 0 Lantus Solostar U-100 Insulin 100 unit/mL (3 mL) Insulin Pen 30 unit SUBCUT BID RF: 0 aspirin [Aspirin Low Dose] 81 mg Tablet,Delayed Release (Dr/Ec) 81 mg PO BID RF: 0 simvastatin 40 mg Tablet 40 mg PO HS RF: 0 gabapentin 100 mg Capsule 200 mg PO QAM RF: 0 Ocuvite Adult 50 Plus 250-5-1 mg Capsule 1 cap PO DAILY RF: 0 Fiber Gummies 2 gram Tablet,Chewable 2 g PO DAILY RF: 0 tamsulosin 0.4 mg capsule 0.4 mg PO HS RF: 0 losartan 25 mg tablet 25 mg PO QAM RF: 0 finasteride 5 mg tablet 5 mg PO HS RF: 0 Discharge Orders: Discharge Order (Routine); Ordered 11/01/19 Ordered By: Tyrel Green/Other Patient Handouts: Diabetes Senior Care Complications, Diabetes Type 2 Managing, Diabetes Healthy Meals, Diabetes Manage A1C Test Admission Data Admit Date/Time: 10/31/19 02:20 Attending Provider: Cyndi Grimm Admit Provider: yAo [place] Primary Care Provider: Cory Nunez Other Providers: Arlen Gaitan ; Tyron Gunter Other Interventions: Discharge Summary Assessment (RN) Last Done: 11/01/19 09:25 Supervising Physician Co-Signing Physician Notes Resident Physician Supervision Note: I independently interviewed and examined the patient and verified the aguayo history and physical, reviewed labs and image studies, discussed the case with the resident Dr. Flor and agree with the findings and care plan. Resident Activity Tracking Resident Involvement: Resident Care Provided Care Provided: Adult Hospital Medicine
--- NOTE | 2019-11-02 06:38 | Electrocardiogram Report ---
Test Reason : Blood Pressure : / mmHG Vent. Rate : 076 BPM Atrial Rate : 076 BPM P-R Int : 214 ms QRS Dur : 160 ms QT Int : 452 ms P-R-T Axes : 000 -56 036 degrees QTc Int : 508 ms Poor data quality, interpretation may be adversely affected Sinus rhythm with 1st degree A-V block Left axis deviation Right bundle branch block Abnormal ECG When compared with ECG of 19-JAN-2019 23:06, No significant change was found Confirmed by Vito Simons ([id number]) on 11/02/2019 6:37:51 AM Referred By: REFERRED SELF Confirmed By:Vito Simons
== END 2019-11-01 14:24 | disposition home or self-care (01) ==
LOC: ED 21:10 → 3N 10-31 02:20 → SUATTDRO 10-31 02:20 → INTOOBSV 10-31 02:20 → 3N 10-31 04:14

== ENCOUNTER 2020-03-16 05:25 | Observation (INO) ==
--- NOTE | 2020-03-12 10:23 | Anesthesiology Consultation ---
Date of Service March 12, 2020 Assessment & Plan (1) Encounter for pre-operative examination: Chart Review Chart Review: Acceptable Risk for Surgery and Patient NOT seen in Pre Admission Testing - Check BSG AM DOS Surgeon's office made aware of elevated Hgb A1C and hyperglycemia on 01/31/20. Note was also written to PCP informing provider of uncontrolled DM. Per PCP response 03/13/20= "He has known diabetes but [facility]. I am Ok with surgery with random glucose of 243." Per nursing assessment 03/12/20, patient resides in [facility]. Denies any recent travel. No known Covid positive contacts or Covid related symptoms. Covid test 03/10/20= negative Seen by cardio 02/21/20= seen for preop evaluation. "Patient remains stable from a cardiac standpoint. Patient is limited in his activities because of a peripheral neuropathy and he often walks with a cane. He does experience chronic exertional dyspnea, but this has not changed and it consistently improves with the use of his inhalers. Patient has not experienced any angina pectoris, overt signs or symptoms heart failure, nor has he had any recurrent atrial fibrillation to his knowledge. Based on his negative Dobutamine Stress Echocardiogram February 2019, stable clinical status, and the fact that he has tolerated several cystoscopic procedures in recent months without complications -- patient is an acceptable surgical risk to proceed with TURP as scheduled provided he take his usual dose of Lopressor and uses his inhalers on the mor christiano of this procedure. There is no need for further cardiac workup at this time." Seen by PCP 02/14/20= seen for scheduled routine follow up. [facility] to [facility] patient off Klonopin but patient was having increased issues. Pt was restarted on Klonopin and has been doing much better. PCP aware of upcoming urology surgery. Anxiety/neuropathy/RLS- doing much better on Clonazepam. Doing well. Dyspnea/h/o CAD- has scheduled appt with cardio for preop clearance. IDDM- managed by [facility] Sugar readings had been high over the summer due to increased stress and lack of sleep from trying to wean off Clonazepam. No DM changed made at this time. Pt should continue to monitor sugars- per patient- glucose improving. PCP states they "will review his preop lab work when completed." Hypothyroidism- recent TSH WNL. CKD- most recent creat 1.75. Consults Requested none ASA ASA4 Proposed Anesthesia Anesthesia Type: General Risk / Benefits Reviewed With: PT / POA / Parent / Guardian, Accepts Plan and Informed Consent Obtained Additional Comments: covid test neg. History Surgery Operation Date: 03/16/20 07:15 Proposed Procedures p Transurethral Resection Prostate - Tyron Gunter, DO Height/Weight Height: 5 ft 7 in Weight: 82.554 kg Allergies Allergy/AdvReac Type Severity Reaction Status Date / Time ropinirole AdvReac Intermediate CHANGE IN Verified 03/16/20 05:50 MENTAL STATUS Medications Home Medications Medication Instructions Recorded Confirmed Last Taken albuterol sulfate 90 mcg/actuation 2 puffs INHALATION QID PRN gm 01/10/19 03/12/20 03/16/20 04:00 aerosol inhaler budesonide-formoterol HFA 160 2 puffs INHALATION BID gm 01/10/19 03/16/20 03/15/20 19:00 mcg-4.5 mcg/actuation aerosol inhaler bumetanide 2 mg tablet 3 mg PO BID #180 tab 01/10/19 03/16/20 03/15/20 19:00 diphenhydramine HCl 25 mg capsule 50 mg PO BID cap 01/10/19 03/16/20 03/15/20 19:00 docusate sodium 100 mg capsule 200 mg PO BID cap 01/10/19 03/16/20 03/15/20 19:00 levothyroxine 88 mcg tablet 88 mcg PO QAM #90 tab 01/10/19 03/16/20 03/15/20 09:30 metoprolol tartrate 25 mg tablet 25 mg PO BID #90 tab 01/10/19 03/12/20 03/16/20 04:00 multivitamin 1 tab PO DAILY 01/10/19 03/16/20 03/15/20 09:30 pantoprazole 40 mg tablet,delayed 40 mg PO QAM #30 tab 01/10/19 03/16/20 03/15/20 09:30 release potassium chloride 20 mEq 10 - 20 meq PO BID tab 01/10/19 03/16/20 03/15/20 19:00 tablet,extended release tiotropium bromide 18 mcg capsule 1 cap INHALATION DAILY #90 puffs 01/10/19 03/16/20 03/15/20 09:30 with inhalation device Lantus Solostar U-100 Insulin 26 unit SUBCUT BID 01/20/19 03/16/20 03/16/20 04:00 Fiber Gummies 2 g PO DAILY 04/23/19 03/16/20 03/14/20 10:00 Ocuvite Adult 50 Plus 1 cap PO DAILY 04/23/19 03/16/20 03/02/20 09:30 aspirin [Aspirin Low Dose] 81 mg PO BID 04/23/19 03/16/20 03/12/20 17:00 finasteride 5 mg PO HS 04/23/19 03/16/20 03/15/20 19:00 losartan 25 mg PO QAM 04/23/19 03/16/20 03/15/20 09:30 simvastatin 40 mg PO HS 04/23/19 03/16/20 03/15/20 19:00 tamsulosin 0.4 mg PO HS 04/23/19 03/16/20 03/15/20 19:00 glipizide 5 mg PO BID 01/31/20 03/16/20 03/15/20 16:00 gabapentin 100 mg capsule 100 mg PO .COMPLEX #30 cap 02/21/20 03/16/20 03/15/20 19:00 cephalexin 250 mg capsule 250 mg PO BID 3 Days #6 cap 03/12/20 03/16/20 03/14/20 clonazepam 0.25 mg PO BID 03/16/20 03/16/20 03/15/20 19:00 Active Medications Generic Name Dose Route Start Last Admin Trade Name Corbyq PRN Reason Stop Dose Admin Lactated Ringer's 1,000 mls @ 15 mls/hr 03/16/20 06:00 03/16/20 06:19 Lr IV 03/17/20 05:59 15 mls/hr .Q24H VANDANA Administration NPO Date Last Intake of Fluids: 03/16/20 Time Last Intake of Fluids: 05:00 Date Last Intake of Solids: 03/15/20 Time Last Intake of Solids: 17:00 Past Medical History Medical History Anxiety Aortic stenosis Mild per 03/06/19 stress ECHO Asthma Uses rescue inhaler a couple times per week Atrial fibrillation Follows with Dr. Gr Blindness of left eye BPH (benign prostatic hyperplasia) CAD (coronary artery disease) Angioplasty ~1993, CABG x 3 2013 (GALINDO to LAD, SVG to PDA, SVG to OM) CHF (congestive heart failure) Chronic kidney disease Follows with Dr. Dixon Chronic obstructive pulmonary disease Diabetes Type 2 IDDM GERD (gastroesophageal reflux disease) Hiatal hernia Hyperlipidemia Hypertension Hypothyroidism Macular degeneration Myocardial infarct ~1993 Peripheral neuropathy Rupture of left distal biceps tendon hx - no surgery Secondary hyperparathyroidism (of renal origin) Exercise / Class Metabolic Activity III < 4 Walking/Shop/Light housework Past Family History Family History Brother Heart disease Diabetes Sister Cancer Mother Diabetes Father Diabetes Other Hypertension Kidney disease Past Surgical History Surgical History Fusion of spine lumbar History of appendectomy History of cardiac cath with angioplasty ~1993 ([facility]) & 2013 ([facility]) History of cataract surgery bilateral History of coronary artery bypass graft x3 vessels ([facility] 2013) with epicardial RFA of pulmonary veins and left atrial appendage ligation History of revision of total replacement of right knee joint History of tonsillectomy History of tooth extraction History of total left knee replacement History of total right knee replacement Hx of colonoscopy Previous back surgery (08/26/12) S/P cholecystectomy Past Anesthesia History No Hx of Anesthesia Complications and No Family Hx of Anesthesia Complications History of PONV No Hx of PONV and No Hx of Motion Sickness Social History Smoking Status: Never smoker tobacco type: cigars Do You Dip or Chew Tobacco: No Hx Alcohol Use: No Hx Substance Use: No substance use type: does not use Physical Exam Vital Signs Last Vital Signs Temp 36.6 C 03/16/20 06:06 Pulse 61 03/16/20 06:06 Resp 20 03/16/20 06:06 BP 197/73 H 03/16/20 06:06 Pulse Ox 98 03/16/20 06:06 Constitutional + obese ENMT Mouth: + dentition abnormality and + edentulous Thyromental Distance: > or= 3.5 Finger Breadths Mallampati Class: II Neck normal visual inspection, trachea midline and + facial hair; neck extension not limited Respiratory normal respiratory effort Auscultation: lungs clear to auscultation bilaterally and + diminished lung sounds Cardiovascular Rate/Rhythm: regular rate and regular rhythm Heart Sounds: no murmur Vessels: no carotid bruit Musculoskeletal Spine: normal cervical ROM Extremities: extremities normal to inspection Neurologic moves all extremities Motor/Sensory: + sensory deficit (diabetic periph.neurop.) Psychiatric Orientation: alert and oriented x 3 Testing Laboratory Results 03/16/20 05:47 POC Glucose 290 H Laboratory Tests 10/31/19 03/10/20 03/10/20 11:43 10:10 10:10 WBC 6.83 Hgb 12.6 L Hct 37.9 L Plt Count 145 Sodium 138 Potassium 4.1 Chloride 102 Carbon Dioxide 32 BUN 25 H Creatinine 1.58 H Glucose 243 H Hemoglobin A1c 10.4 H Elevated BUN and creatine chronic/stable 03/10/20= URINE CULTURE: >100,000 Group B Beta Strep and Gamma strep, not enterococcus Electrocardiogram Date: 02/03/20 Findings: + NSR @ (75) Left axis deviation. RBBB. Chest X-Ray Date: 02/03/20 Findings: + NAD Single view CXR. Chronic interstitial thickening is similar to previous Stress Test Date: 03/06/19 Negative dobutamine stress echo and negative EKG for myocardial ischemia at 84% MPHR. Resting echocardiogram with normal biventricular systolic function. Moderate concentric LVH. Normal chamber dimensions. Mild aortic stenosis. (RENETTA= 1.6cm2, AV MG= 9.0mmHg, AV velocity= 2.128m/s) Trace to mild mitral regurgitation. Trace tricuspid regurgitation. Other Testing Head CT 02/03/20=There is no hemorrhage, mass effect, or evidence of acute territorial ischemia by CT criteria.
[2020-03-16] MEDS ORDERED: CIPROFLOXACIN / D5W 400 MG/200 ML BAG IV SCH (06:00)
[2020-03-16] MEDS ORDERED: LR 15ML/HR IV SCH (06:00)
[2020-03-16] MEDS ORDERED: fentaNYL citrate 100 MCG/2 ML VIAL ONE (06:52)
[2020-03-16] MEDS ORDERED: PROPOFOL IV EMULSION 10 MG/ML 20 ML VIAL IV ONE (07:02)
[2020-03-16] MEDS ORDERED: ONDANSETRON INJ 2 MG/ML 2 ML VIAL ONE (07:02)
[2020-03-16] MEDS ORDERED: LIDOCAINE HCL 2% 2 ML VIAL/AMP(20MG/ML) INFIL ONE ×2 (07:02→07:28)
[2020-03-16] MEDS ORDERED: PHENAZOPYRIDINE HCL 200 MG TAB PO PRN (07:03)
[2020-03-16] MEDS ORDERED: ONDANSETRON INJ 2 MG/ML 2 ML VIAL IV PRN ×2 (07:03→07:58)
[2020-03-16] MEDS ORDERED: oxyCODONE HCL IR 5 MG TAB (IMMEDIATE RELEASE) PO PRN (07:03)
--- NOTE | 2020-03-16 07:03 | History & Physical Report ---
Date of Service March 16, 2020 Assessment & Plan (1) Acute urinary retention: (2) BPH (benign prostatic hyperplasia): Admission and Anticipated Discharge Date Admission Date: Risks and benefits discussed at length for procedure. These include bleeding, infection, injury to surrounding tissues or organs, and risks associated with anesthesia. Patient states understanding and agrees to proceed. Will sign consent and schedule. Will plan for cystoscopy with transurethral resection of prostate. History of Present Illness Primary Care Provider: Cory Nunez DO Patient here for procedure. No changes in medical issues. No major changes in urinary issues. Continued issues and concerns. No change in pain or discomfort. No severe fevers or chills. No chest pain or shortness of breath. Risks and benefits discussed at length for procedure. These include bleeding, infection, injury to surrounding tissues or organs, and risks associated with anesthesia. Patient and/or family states understanding and agrees to proceed. Consent and supporting information completed. Allergies Allergy/AdvReac Type Severity Reaction Status Date / Time ropinirole AdvReac Intermediate CHANGE IN Verified 03/16/20 05:50 MENTAL STATUS Home Medications Home Medications Medication Instructions Recorded Confirmed Type albuterol sulfate 90 mcg/actuation 2 puffs INHALATION QID PRN gm 01/10/19 03/12/20 History aerosol inhaler budesonide-formoterol HFA 160 2 puffs INHALATION BID gm 01/10/19 03/16/20 History mcg-4.5 mcg/actuation aerosol inhaler bumetanide 2 mg tablet 3 mg PO BID #180 tab 01/10/19 03/16/20 History diphenhydramine HCl 25 mg capsule 50 mg PO BID cap 01/10/19 03/16/20 History docusate sodium 100 mg capsule 200 mg PO BID cap 01/10/19 03/16/20 History levothyroxine 88 mcg tablet 88 mcg PO QAM #90 tab 01/10/19 03/16/20 History metoprolol tartrate 25 mg tablet 25 mg PO BID #90 tab 01/10/19 03/12/20 History multivitamin 1 tab PO DAILY 01/10/19 03/16/20 History pantoprazole 40 mg tablet,delayed 40 mg PO QAM #30 tab 01/10/19 03/16/20 History release potassium chloride 20 mEq 10 - 20 meq PO BID tab 01/10/19 03/16/20 History tablet,extended release tiotropium bromide 18 mcg capsule 1 cap INHALATION DAILY #90 puffs 01/10/19 03/16/20 History with inhalation device Lantus Solostar U-100 Insulin 26 unit SUBCUT BID 01/20/19 03/16/20 History Fiber Gummies 2 g PO DAILY 04/23/19 03/16/20 History Ocuvite Adult 50 Plus 1 cap PO DAILY 04/23/19 03/16/20 History aspirin [Aspirin Low Dose] 81 mg PO BID 04/23/19 03/16/20 History finasteride 5 mg PO HS 04/23/19 03/16/20 History losartan 25 mg PO QAM 04/23/19 03/16/20 History simvastatin 40 mg PO HS 04/23/19 03/16/20 History tamsulosin 0.4 mg PO HS 04/23/19 03/16/20 History glipizide 5 mg PO BID 01/31/20 03/16/20 History gabapentin 100 mg capsule 100 mg PO .COMPLEX #30 cap 02/21/20 03/16/20 History cephalexin 250 mg capsule 250 mg PO BID 3 Days #6 cap 03/12/20 03/16/20 Rx clonazepam 0.25 mg PO BID 03/16/20 03/16/20 History Past Med/Surg History Medical History Anxiety Aortic stenosis Mild per 03/06/19 stress ECHO Asthma Uses rescue inhaler a couple times per week Atrial fibrillation Follows with Dr. Gr Blindness of left eye BPH (benign prostatic hyperplasia) CAD (coronary artery disease) Angioplasty ~1993, CABG x 3 2013 (GALINDO to LAD, SVG to PDA, SVG to OM) CHF (congestive heart failure) Chronic kidney disease Follows with Dr. Dixon Chronic obstructive pulmonary disease Diabetes Type 2 IDDM GERD (gastroesophageal reflux disease) Hiatal hernia Hyperlipidemia Hypertension Hypothyroidism Macular degeneration Myocardial infarct ~1993 Peripheral neuropathy Rupture of left distal biceps tendon hx - no surgery Secondary hyperparathyroidism (of renal origin) Surgical History Fusion of spine lumbar History of appendectomy History of cardiac cath with angioplasty ~1993 ([facility]) & 2013 ([facility]) History of cataract surgery bilateral History of coronary artery bypass graft x3 vessels ([facility] 2013) with epicardial RFA of pulmonary veins and left atrial appendage ligation History of revision of total replacement of right knee joint History of tonsillectomy History of tooth extraction History of total left knee replacement History of total right knee replacement Hx of colonoscopy Previous back surgery (08/26/12) S/P cholecystectomy Family History Brother Heart disease Diabetes Sister Cancer Mother Diabetes Father Diabetes Other Hypertension Kidney disease Social History Smoking Status: Never smoker Tobacco Type: Cigarettes Second Hand Exposure: No; Do You Dip or Chew Tobacco: No; Tobacco Cessation Education Requested by Patient: No Hx Alcohol Use: No Hx Substance Use: No Preferred Language: [place] Communication Ability: Effective Grades 1 Thru 5 Teacher Required: No Beliefs That Will Affect Care: None marital status: Current Living Situation: Spouse current occupational status: retired Feels Safe at Home: Yes Safety Concerns: Feels Safe At This Time Assistive Devices: Cane Review of Systems All systems reviewed & are unremarkable except as noted in HPI & below Physical Exam Physical Exam: General: Alert/Arousable. No Acute illness. . HEENT: Inspection normal. Normal inspection of face. Normal inspection of neck. Psychologic: Normal affect/No change in mentation. Respiratory: No use of accessory muscles. No respiratory changes or exacerbation or changes with tachypnea or dyspnea. Cardiovascular: No tachycardia Skin: Sun and Dry. No new rashes or visible lesions. Abdomen: Normal inspection. No guarding. Results & Data ([facility]) Vital Signs (Past 12 Hours) Vital Signs Temp Pulse Resp BP Pulse Ox 03/16/20 06:06 36.6 C 61 20 197/73 H 98 PG Care Time/CCT Total # of Minutes Spent Total Time Spent with Patient: Total time spent is greater than 50% in coordination of care (as documented) at patient's floor/unit and/or counseling patient: Coding Level of Care Code 87343 Initial Inpt Care Lvl 3 Diagnoses Acute urinary retention R33.8 BPH (benign prostatic hyperplasia) N40.0
[2020-03-16] MEDS ORDERED: ALBUTEROL HFA 8 GM INHALER INH PRN (07:06)
[2020-03-16] MEDS ORDERED: ePHEDrine sulfate 50 MG/ML SYR ONE (07:25)
[2020-03-16] MEDS ORDERED: ePHEDrine sulfate 50 MG/ML AMP IV PRN (07:58)
[2020-03-16] MEDS ORDERED: LABETALOL HCL IV 5 MG/ML 20ML IV PRN (07:58)
[2020-03-16] MEDS ORDERED: NALOXONE HCL 0.4 MG/1 ML VIAL/CARP IV PRN (07:58)
[2020-03-16] MEDS ORDERED: PROMETHAZINE HCL 12.5 MG in SODIUM CHLORIDE 0.9% 50 ML IV PRN (07:58)
[2020-03-16] MEDS ORDERED: fentaNYL citrate 100 MCG/2 ML VIAL IV PRN (07:58)
[2020-03-16] MEDS ORDERED: ATROPINE SULFATE 0.1 MG/ML 10ML SYR IV PRN (07:58)
[2020-03-16] MEDS ORDERED: FLUMAZENIL 0.1 MG/1 ML 10 ML VIAL IV PRN (07:58)
--- NOTE | 2020-03-16 08:11 | Operative Report ---
PG Post Operative Report Pre & Post Diagnosis Operation Date: 03/16/20 07:15 Pre-Op Diagnosis: Benign Prostate Hyperplasia Post-Op Diagnosis: Benign Prostate Hyperplasia I identified the patient and participated in the time-out.: Yes Procedure Operation Date: 03/16/20 07:15 Actual Procedures p Transurethral Resection Prostate(Not Applicable) - Tyron Gunter DO Surgeon Tyron Gunter, II, DO [employer] Assistant None Estimated Blood Loss 5 Findings Consistent with Post-Op Diagnosis Large Prostate with obstruction. Specimens Prostate adenoma. Drains 24Fr 3WAY Catheter Anesthesia Type General Complications none Disposition Disposition: Recovery Room Indications Patient with obstruction due to prostate enlargement. Risks and benefits discussed at length. Description of Procedure Patient was consented and brought back to the operating room. Patient was placed under anesthesia in the supine position and moved to the dorsal lithotomy position. Patient was prepped and draped in the regular sterile fashion. A time out was completed. A 30degree Cystoscope was placed into the bladder and the entire bladder was examined. The UO's were identified as well as the bladder neck, trigone, dome, and the other important landmarks. The prostatic urethra and large lobes/adenoma was assessed and the veru and bladder neck identified and area/size was assessed. The resection scope was placed and the fine bipolar loop was selected. Starting at the 5 and 7 o'clock positions, a channel was created from bladder neck to the veru. With the channel created, the resection was then taken from the 1 and 11 oclock position down to the channel. Large amount of adenoma was resected. The Specimen was removed and sent for analysis. The resection bed and any bleeding areas were fulgurated/cauterized and the entire area inspected. All bleeding was controlled. The bladder was inspected a final time. The bladder was emptied and irrigated. All specimen and debris was removed. The scope was removed with the bladder partially full. A catheter was placed and balloon elevated. This was easily irrigated. The patient was cleaned, aroused from anesthesia, and transferred to the pacu in stable condition having tolerated the procedure well with no complications. I was present and participated in all aspects of the procedure. The patient will be monitored in the PACU until transferred. I attest to the content of the Intraoperative Record and any orders documented therein. Any exceptions are noted below.
[2020-03-16] MEDS ORDERED: MoRPHine SULFATE 2 MG/ML CARP IV PRN (08:16)
[2020-03-16] MEDS ORDERED: BELLADONNA/OPIUM SUPP 60 MG SUPP PR ONE (08:45)
[2020-03-16] MEDS ORDERED: NovoLIN-R INSULIN PER UNIT CHARGE ONE (08:48)
[2020-03-16] MEDS ORDERED: INSULIN HUMAN REGULAR PER UNIT 10 UNITS in SYRINGE 0 ML IV STA (08:49)
[2020-03-16] MEDS ORDERED: clonazePAM 0.25 MG TAB PO SCH (09:00)
[2020-03-16] MEDS ORDERED: NON-FORMULARY MEDICATION (C,E,Zinc,Copper 11-Omega3s-Lut [Ocuvite Adult 50 Plus] 1 CAP) PO SCH (09:00)
[2020-03-16] MEDS ORDERED: DOCUSATE SODIUM 100 MG CAP PO SCH (09:00)
[2020-03-16] MEDS ORDERED: INULIN 2 GM PO SCH (09:00)
[2020-03-16] MEDS ORDERED: POTASSIUM CHLORIDE CRTAB 20 MEQ TABCR PO SCH (09:00)
[2020-03-16] MEDS ORDERED: diphenhydrAMINE Capsule 25 MG CAP PO PRN (09:00)
--- NOTE | 2020-03-16 09:17 | Anesthesiology Progress Note ---
Date of Service March 16, 2020 Anesthesia Post Procedure Vital Signs Vital Signs: Temp Pulse Resp BP Pulse Ox 03/16/20 09:10 36.1 C L 58 L 15 102/60 98 03/16/20 09:00 52 L 12 130/63 100 03/16/20 08:50 53 L 15 148/65 H 99 03/16/20 08:40 54 L 15 135/74 100 03/16/20 08:30 59 L 17 154/62 H 100 03/16/20 08:21 36.3 C L 65 18 154/62 H 98 03/16/20 06:06 36.6 C 61 20 197/73 H 98 Pain Intensity Penis: Pain Intensity: 4 Transfer of Care Handoff Completed per policy Notes Mental Status: alert / awake / arousable Patient Amnestic to Procedure: Yes Nausea / Vomiting: adequately controlled Pain: adequately controlled Airway Patency, RR, SpO2: stable & adequate BP & HR: stable & adequate Hydration State: stable & adequate Anesthetic Complications: no major complications apparent
[2020-03-16 10:39] LABS: Basophils # (auto) 0.01 K/uL (0-0.2); Basophils % (auto) 0.2 %; Eosinophils # (auto) 0.14 K/uL (0-0.5); Eosinophils % (auto) 2.5 %; Hematocrit (blood only) 34.6 % (42-52); Hemoglobin 11.7 g/dL (14.0-18.0); Immature Granulocytes # (auto) 0.01 K/uL (0.00-0.02); Immature Granulocytes % (auto) 0.2 %; Lymphocytes # (auto) 1.97 K/uL (1.2-3.4); Lymphocytes % (auto) 35.6 %; Mean Corpuscular Hgb Conc 33.8 g/dL (32-36); Mean Corpuscular Volume 91.5 fL (80-100); Mean Platelet Volume 9.5 fL (7.4-10.4); Monocytes # (auto) 0.34 K/uL (0.11-0.59); Monocytes % (auto) 6.1 %; Neutrophils # (auto) 3.07 K/uL (1.4-6.5); Neutrophils % (auto) 55.4 %; Platelet Count 120 K/uL (130-400); RDW Coefficient of Variation 12.9 % (11.5-14.5); RDW Standard Deviation 43.4 fL (36.4-46.3); Red Blood Count 3.78 M/uL (4.7-6.1); White Blood Count 5.54 K/uL (4.8-10.8)
[2020-03-16 11:04] LABS: BUN Creatinine Ratio 20.8 (10-20); Calcium 8.9 mg/dl (8.5-10.1); Creatinine Clr Calc Pharmacy 36.4 ml/min; Est GFR (African American) 45.5; Est GFR (Non-African American) 39.3; Potassium 3.9 mmol/L (3.5-5.1)
[2020-03-16] MEDS: SODIUM CHLORIDE 0.9% 1000ML 1,000 ML IV SCH ×3 (11:10→22:39)
[2020-03-16] MEDS: FLUTICASONE/VILANTEROL 200/25MCG 14 PUFFS/INHALER INH SCH (11:13)
[2020-03-16] MEDS: BUMETANIDE 1 MG TAB PO SCH ×2 (11:13→16:40)
[2020-03-16] MEDS: LOSARTAN POTASSIUM 25 MG TAB PO SCH (11:14)
[2020-03-16] MEDS: DOCUSATE SODIUM 100 MG CAP PO SCH ×2 (11:14→20:42)
[2020-03-16] MEDS: MULTIVITAMIN TAB PO SCH (11:16)
[2020-03-16] MEDS: PANTOprazole 40 MG TAB PO SCH (11:16)
[2020-03-16] MEDS: LEVOTHYROXINE SODIUM 88 MCG TABLET PO SCH (11:16)
[2020-03-16] MEDS: clonazePAM 0.5 MG TAB PO SCH ×2 (11:31→20:47)
[2020-03-16] MEDS ORDERED: PHARMACY GLYCEMIC MGMT CONSULT PRN (12:55)
--- NOTE | 2020-03-16 13:39 | Pharmacy Report ---
Glycemic Control Consultation - Date of Service March 16, 2020 - Scope Scope: Glycemic Pharmacist consulted for glycemic control and to write orders per [facility] inpatient glycemic control protocol. - Objective Weight: 86.7 kg [place]cl[place]ks BSG (last 24hrs): 03/16/20 03/16/20 03/16/20 05:47 07:06 08:41 Glucose POC Glucose 290 H 298 H 275 H 03/16/20 03/16/20 03/16/20 09:16 10:21 12:10 Glucose 93 POC Glucose 191 H 93 Laboratory Data (last 24hrs): 03/16/20 10:21 Potassium 3.9 Carbon Dioxide 32 Anion Gap 5.0 Creatinine 1.59 H Est Cr Clr Drug Dosing 36.4 - Recent Pertinent Medications Outpatient Anti-diabetic Regimen: * glipizide 5 mg bid, Lantus 26 units bid * A1c = 10.4 % 10/31/19 Risk Factors for Insulin Resistance: * Recent Surgery: POD 0 * Diet: clears - Assessment & Plan Assessment & Plan: ASSESSMENT: * Patient is s/p prostate resection, POD 0. Pharmacy consulted to assist with glycemic management postop. Per notes, [facility]. * BSGs elevated on admission in the upper 200s, patient received 10 units of IV insulin in OR. Postop BSG at lunch time trending down to 93 mg/dL. A1c per our hospital records 10.4% on 10/31/19 * No steroids received preop/intraop, will plan to utilize basal/bolus dosing postop. Patient's insulin regimen at home heavily basal weighted, will split regimen to more of a 50/50 split with basal/bolus for hospital stay PLAN FOR INPATIENT GLYCEMIC CONTROL: * Holding outpatient oral diabetes medications * Basal insulin * Lantus 13 units ([employer]) * Lantus 10-20 units BID based upon BSG value / see Emar for more details * Bolus insulin * NovoLog per scale ACHS or Q6hrs while NPO * Goal Range: Low 120 mg/dL - High 160 mg/dL * Correction Factor: 25 mg/dL/unit * Nutritional / Prandial insulin per carb ratio of 1 unit per 9 grams CHO consumed * Please note that the plan above was derived based on current level of insulin resistance and hospital stress. These recommendations are appropriate for inpatient admission only. Plan of care upon discharge will need to be reassessed to avoid potential outpatient hypo/hyperglycemia. Thank you.
[2020-03-16] MEDS: INSULIN ASPART 100 UNITS/ML 3 ML PEN SC SCH ×3 (14:12→20:47)
[2020-03-16] MEDS ORDERED: glipiZIDE 5 MG TAB PO SCH (16:30)
[2020-03-16] MEDS: ceFAZolin 2000MG 2,000 MG/15 ML SYR IV SCH ×2 (16:39→23:18)
[2020-03-16] MEDS: METOPROLOL TARTRATE 25 MG TAB PO SCH (20:42)
[2020-03-16] MEDS: INSULIN GLARGINE SOLOSTAR 100 UNITS/ML 3 ML PEN SQ SCH (20:46)
[2020-03-16] MEDS ORDERED: INSULIN GLARGINE SOLOSTAR 100 UNITS/ML 3 ML PEN SQ SCH (21:00)
[2020-03-16] MEDS ORDERED: TAMSULOSIN HCL 0.4 MG CAP PO SCH (21:00)
[2020-03-16] MEDS ORDERED: SIMVASTATIN 40 MG TAB PO SCH (21:00)
[2020-03-16] MEDS ORDERED: GABAPENTIN 300 MG CAP PO SCH (21:00)
[2020-03-16] MEDS ORDERED: FINASTERIDE 5 MG TAB PO SCH (21:00)
[2020-03-17] MEDS: LEVOTHYROXINE SODIUM 88 MCG TABLET PO SCH (05:06)
[2020-03-17 07:55] LABS: Estimated Average Glucose 252 mg/dl; Hemoglobin A1C 10.4 % (4.5-5.6)
[2020-03-17] MEDS: METOPROLOL TARTRATE 25 MG TAB PO SCH (08:25)
[2020-03-17] MEDS: DOCUSATE SODIUM 100 MG CAP PO SCH (08:25)
[2020-03-17] MEDS: BUMETANIDE 1 MG TAB PO SCH (08:26)
[2020-03-17] MEDS: MULTIVITAMIN TAB PO SCH (08:26)
[2020-03-17] MEDS: LOSARTAN POTASSIUM 25 MG TAB PO SCH (08:26)
[2020-03-17] MEDS: FLUTICASONE/VILANTEROL 200/25MCG 14 PUFFS/INHALER INH SCH (08:27)
[2020-03-17] MEDS: PANTOprazole 40 MG TAB PO SCH (08:28)
[2020-03-17] MEDS: ceFAZolin 2000MG 2,000 MG/15 ML SYR IV SCH (08:33)
[2020-03-17] MEDS: clonazePAM 0.5 MG TAB PO SCH (08:33)
[2020-03-17] MEDS ORDERED: GABAPENTIN 100 MG CAP PO SCH (09:00)
[2020-03-17] MEDS ORDERED: UMECLIDINIUM BROMIDE 62.5MCG/BLISTER 7 PUFFS/INHALER INH SCH (09:00)
--- NOTE | 2020-03-17 09:00 | Urology Progress Note ---
Date of Service March 17, 2020 Assessment & Plan (1) BPH (benign prostatic hyperplasia): 84 yo M POD #1 s/p TURP with Dr. Gunter. - Patient doing well, progressing as expected. - No pain. Ambulating in hallway without difficulty. - Tolerating diet. - Urine clear with CBI running on slow at time of exam, CBI clamped @0845, will reassess. - Lopez reassessed @1015, urine clear yellow with CBI clamped, order placed to d/c CBI. - Patient ready for discharge today. - Discharge to home today with Lopez catheter in place. - Expected clinical course reviewed, all questions answered. - Will arrange outpatient follow-up appointments for post-op and voiding trial. Admission and Anticipated Discharge Date Admission Date: March 16, 2020 Subjective 84 yo M POD #1 s/p TURP with Dr. Gunter. Pt examined at bedside this AM. Sitting up in bed, eating breakfast. Tolerating diet, no nausea or vomiting. Reports he is feeling well. Offers no complaints. Denies abdominal or suprapubic pain. Has not utilized pain medication. Ambulated in hallway last evening, multiple laps. Lopez intact, patent, CBI running on slow this AM. Urine is clear with minimal pink tinge, no clots. Tolerating Lopez catheter. No fever or chills. Feels ready for discharge today. Chart review: Afebrile. Creatinine 1.59, WBC 5.54, Hgb 11.7 No additional concerns today. Review of Systems Constitutional: as per Subjective / HPI Gastrointestinal: as per Subjective / HPI Genitourinary: + as per Subjective / HPI Physical Exam Constitutional: well developed and well nourished; no acute distress and not ill appearing Respiratory: normal respiratory effort and able to speak in complete sent ences; no respiratory distress, no labored breathing and no audible wheezes Cardiovascular: Extremities: no pedal edema Gastrointestinal (Abdomen): Inspection/Auscultation: abdomen normal to inspection; abdomen not distended Percussion/Palpation: abdomen soft; abdomen nontender and no guarding Musculoskeletal: Head/Neck/Chest: normocephalic and head atraumatic Extremities: extremities normal to inspection Skin: warm and dry Neurologic: moves all extremities and awake Psychiatric: Orientation: alert, oriented x 3 and cooperative Genitourinary: Lopez intact, patent, CBI running on slow, urine clear with minimal pink tinge, no clots Results & Data ([facility]) Vital Signs (Past 12 Hours) Vital Signs Temp Pulse Resp BP Pulse Ox 03/17/20 07:13 36.7 C 57 L 18 121/63 93 03/17/20 04:00 36.4 C L 62 16 105/58 L 95 03/16/20 23:28 36.5 C 59 L 18 124/67 96 PG Care Time/CCT Total # of Minutes Spent Total Time Spent with Patient: Total time spent is greater than 50% in coordination of care (as documented) at patient's floor/unit and/or counseling patient: Coding Level of Care Code 16273 Subseq Hosp Care Lvl 2 Diagnoses BPH (benign prostatic hyperplasia) N40.0
[2020-03-17] MEDS: INSULIN ASPART 100 UNITS/ML 3 ML PEN SC SCH ×2 (09:07→12:47)
[2020-03-17] MEDS: INSULIN GLARGINE SOLOSTAR 100 UNITS/ML 3 ML PEN SQ SCH (09:11)
--- NOTE | 2020-03-17 12:56 | Anesthesiology Progress Note ---
Date of Service March 17, 2020 Anesthesia Post Procedure Vital Signs Vital Signs: Temp Pulse Resp BP BP Pulse Ox 03/17/20 11:34 36.7 C 57 L 18 131/66 121/63 93 03/17/20 07:13 36.7 C 57 L 18 121/63 93 03/17/20 04:00 36.4 C L 62 16 105/58 L 95 03/16/20 23:28 36.5 C 59 L 18 124/67 96 03/16/20 19:51 36.2 C L 60 16 131/66 95 03/16/20 15:29 35.5 C L 54 L 16 117/59 L 98 Pain Intensity Penis: Pain Intensity: 2 Notes Mental Status: alert / awake / arousable and participated in evaluation Nausea / Vomiting: adequately controlled Pain: adequately controlled Airway Patency, RR, SpO2: stable & adequate BP & HR: stable & adequate Hydration State: stable & adequate Anesthetic Complications: no major complications apparent and Pt Satisfied with anesthetic care
--- NOTE | 2020-03-19 07:09 | Discharge Summary ---
Date of Service March 19, 2020 Admission HPI Per Admitting Provider Patient here for procedure. No changes in medical issues. No major changes in urinary issues. Continued issues and concerns. No change in pain or discomfort. No severe fevers or chills. No chest pain or shortness of breath. Risks and benefits discussed at length for procedure. These include bleeding, infection, injury to surrounding tissues or organs, and risks associated with anesthesia. Patient and/or family states understanding and agrees to proceed. Consent and supporting information completed. Admission Exam Per Admitting Provider See H&P Principal Diagnosis BPH with obstruction Discharge Exam General: Alert in no acute distress. HEENT: Normocephalic Atraumatic. Inspection normal. Psychologic: Normal affect. Skin: [place] and Dry. No rashes or visible lesions. Abdomen: Soft Non-distended. No rebound or guarding. Discharge Data Allergies Allergy/AdvReac Type Severity Reaction Status Date / Time ropinirole AdvReac Intermediate CHANGE IN Verified 03/16/20 05:50 MENTAL STATUS Procedures Performed Operation Date: 03/16/20 07:15 Actual Procedures p Transurethral Resection Prostate(Not Applicable) - Tyron Gunter, DO Diabetes Follow up Diabetes Follow-up Needed for HgbA1c >9% Hospital Course (1) BPH (benign prostatic hyperplasia): 84 yo M POD #1 s/p TURP with Dr. Gunter. - Patient doing well, progressing as expected. - No pain. Ambulating in hallway without difficulty. - Tolerating diet. - Urine clear with CBI running on slow at time of exam, CBI clamped @0845, will reassess. - Lopez reassessed @1015, urine clear yellow with CBI clamped, order placed to d/c CBI. - Patient ready for discharge today. - Discharge to home today with Lopez catheter in place. - Expected clinical course reviewed, all questions answered. - Will arrange outpatient follow-up appointments for post-op and voiding trial. Total Time Total Time Spent Total Time Spent (In Minutes): 10 minutes Total Time Includes: Examination of the Patient, Discharge Planning, Medication Reconciliation and Communication With Other Providers Discharge Plan Discharge Items Patient Disposition: Home - Self-Care Reason For Visit: Benign Prostate Hyperplasia Discharge Diagnosis: Benign Prostate Hyperplasia Activity: Per Instructions section Lifting: No more than 25 pounds Bathing Comment: Okay to shower in 1 day, no tub bath or soaking until after f/u Sexual Activity: Wait until after follow-up appointment Exercise/Sports: Wait until after follow-up appointment Driving/Machine Use: No driving while on prescription pain medication Non-emergency contact: Urologist Call non-emergency contact if: your symptoms worsen, your pain is not controlled, your pain is worsening, your pain is concerning for you, you have a fever and your temperature is above 101 Follow-up/Referrals: Tyron Gunter DO [Physician] - (PER [facility] THE OFFICE WILL CALL PATIENT WITH HOSPITAL F/U VISIT.) Cory Nunez DO [Primary Care Provider] - 03/25/20 4:10 pm Diet: Regular Addtl Attending Provider Instructions: Please take all medications as prescribed and keep all follow-ups as scheduled. Please call our office at [phone] with any questions, concerns or need to reschedule appointments for any reason. We are happy to assist you. Tips for your recovery at home: Dont be alarmed by brownish or reddish blood or clots in your urine. This is a result of the procedure. This may occur off and on for weeks to months after the procedure but should continue to improve. Drink plenty of fluids during the day (enough to keep your urine very light colored). This will help keep a healthy flow of urine. Do not lift >25 lbs until your followup Avoid constipation. Please use a stool softener (Colace) for the first two weeks after your procedure Be sure to finish the antibiotics as prescribed. If you go home with a catheter, please wash tubing where it enters your body twice daily with mild soap (Dove or Dial). Once your catheter is removed, expect some blood in your urine and some burning when you urinate. You should have an appointment to have this removed, if you do not please call our office to arrange. Okay to resume aspirin if urine clear today. Resume in 1 day if urine is pink. Pending Studies at Discharge: Yes (pathology) Stand-Alone Forms: My [employer], Opioid Pain Management, Smoking Cessation Medications and DC Order Prescriptions: New ciprofloxacin HCl 250 mg tablet 250 mg PO BID 5 Days Qty: 10 RF: 0 oxycodone-acetaminophen 5-325 mg tablet 1 tab PO Q8H PRN (Reason: pain) Qty: 10 RF: 0 Continued diphenhydramine HCl 25 mg capsule 50 mg PO BID RF: 0 docusate sodium 100 mg capsule 200 mg PO BID RF: 0 metoprolol tartrate 25 mg tablet 25 mg PO BID Qty: 90 RF: 0 multivitamin [Daily Multi-Vitamin] tablet 1 tab PO DAILY RF: 0 pantoprazole 40 mg tablet,delayed release (DR/EC) 40 mg PO QAM Qty: 30 RF: 0 Spiriva with HandiHaler 18 mcg capsule, w/inhalation device 1 cap inhalation DAILY Qty: 90 RF: 0 levothyroxine 88 mcg tablet 88 mcg PO QAM Qty: 90 RF: 0 albuterol sulfate 90 mcg/actuation HFA aerosol inhaler 2 puffs inhalation QID PRN (Reason: shortness of breath or wheezing) RF: 0 Symbicort 160-4.5 mcg/actuation HFA aerosol inhaler 2 puffs inhalation BID RF: 0 bumetanide 2 mg tablet 3 mg PO BID Qty: 180 RF: 0 potassium chloride 20 mEq tablet extended release 10 - 20 meq PO BID RF: 0 gabapentin 100 mg capsule 100 mg PO .COMPLEX Qty: 30 RF: 0 clonazepam 0.5 mg tablet 0.25 mg PO BID RF: 0 Lantus Solostar U-100 Insulin 100 unit/mL (3 mL) Insulin Pen 26 unit SUBCUT BID RF: 0 aspirin [Aspirin Low Dose] 81 mg Tablet,Delayed Release (Dr/Ec) 81 mg PO BID RF: 0 simvastatin 40 mg Tablet 40 mg PO HS RF: 0 Ocuvite Adult 50 Plus 250-5-1 mg Capsule 1 cap PO DAILY RF: 0 Fiber Gummies 2 gram Tablet,Chewable 2 g PO DAILY RF: 0 tamsulosin 0.4 mg capsule 0.4 mg PO HS RF: 0 losartan 25 mg tablet 25 mg PO QAM RF: 0 finasteride 5 mg tablet 5 mg PO HS RF: 0 glipizide 5 mg Tablet 5 mg PO BID RF: 0 Discontinued cephalexin 250 mg capsule 250 mg PO BID 3 Days Qty: 6 RF: 0 Discharge Orders: Discharge Order (Routine); Ordered 03/17/20 Ordered By: Tegan Green/Other Patient Handouts: DVT Post Op Prevention, Discharge Instructions Caring for ... Admission Data Admit Date/Time: 03/16/20 07:03 Attending Provider: Tyron Gunter Admit Provider: Tyron Gunter Primary Care Provider: Cory Nunez Other Interventions: Discharge Summary Assessment (RN) Last Done: 03/17/20 11:34 Coding Level of Care Code D/C Day Management <30 mins Diagnoses BPH (benign prostatic hyperplasia) N40.0
== END 2020-03-17 13:30 | disposition home or self-care (01) ==
LOC: 3N 05:25 → ASU 05:25

== ENCOUNTER 2020-03-24 01:21 | Observation (INO) ==
[2020-03-24 02:13] LABS: Basophils # (auto) 0.02 K/uL (0-0.2); Basophils % (auto) 0.2 %; Eosinophils # (auto) 0.18 K/uL (0-0.5); Eosinophils % (auto) 2.2 %; Hematocrit (blood only) 35.9 % (42-52); Hemoglobin 12.1 g/dL (14.0-18.0); Immature Granulocytes # (auto) 0.06 K/uL (0.00-0.02); Immature Granulocytes % (auto) 0.7 %; Lymphocytes # (auto) 1.69 K/uL (1.2-3.4); Mean Corpuscular Hemoglobin 31.3 pg (25-34); Mean Corpuscular Hgb Conc 33.7 g/dL (32-36); Mean Corpuscular Volume 92.8 fL (80-100); Neutrophils # (auto) 5.68 K/uL (1.4-6.5); Neutrophils % (auto) 70.9 %; Platelet Count 235 K/uL (130-400); Red Blood Count 3.87 M/uL (4.7-6.1); White Blood Count 8.03 K/uL (4.8-10.8)
[2020-03-24 02:34] LABS: Albumin Globulin Ratio 0.6 (0.9-2); Albumin Level 2.9 gm/dl (3.4-5.0); BUN Creatinine Ratio 21.7 (10-20); Bilirubin,Total 0.3 mg/dl (0.2-1); Calcium 9.2 mg/dl (8.5-10.1); Creatinine Clr Calc Pharmacy 23.9 ml/min; Est GFR (Non-African American) 23.3; Globulin 4.8 gm/dl (2.5-4.0); Thyroid Stimulating Hormone 1.28 uIu/ml (0.300-4.500); Total Protein 7.7 gm/dl (6.4-8.2)
[2020-03-24 02:35] LABS: Appearance Urine Cloudy (Clear); Bilirubin Urine Negative (Negative); Blood Urine 3+ (Negative); Color Urine Yellow; Glucose Urine UA 2+ (Negative); Ketones Urine Negative (Negative); Leukocyte Esterase Urine Trace (Negative); Nitrite Urine Negative (Negative); Protein Urine 2+ (Negative); RBC Urine Automated >30 /hpf (0-4); Specific Gravity Urine 1.015 (1.000-1.030); Urobilinogen Urine Negative (Negative); pH Urine 5.5 (4.5-7.5)
[2020-03-24 02:43] LABS: Beta-Hydroxybutyrate 1.09 mg/dl (0.2-2.81)
[2020-03-24] MEDS ORDERED: SODIUM CHLORIDE 0.9% 500 ML IV ONE (02:48)
[2020-03-24 02:54] LABS: Bacteria Urine Automated 1+ (Negative)
--- NOTE | 2020-03-24 03:06 | Emergency Department Note ---
Impression & Plan Hyperglycemia due to diabetes mellitus, JUDI (acute kidney injury) ED Provider Note NAME: BRIAN NEWMAN AGE: 84 SEX: M ARRIVES VIA: Ambulance INFORMANT: Patient, patient's ED PROVIDER(S): Kiara Quiroz DO CHIEF COMPLAINT: Altered mental status PLAN: Disposition: Admitted to the [facility] Condition: Stable MEDICAL DECISION MAKING: This is an 84-year-old male [facility] status. The patient's became concerned when she found him slumped over in his chair. EMS found the patient to have a high blood sugar. The patient also has significant left lower extremity edema. Patient is noted to have a blood sugar greater than 400, hyponatremia, and an increased creatinine. The ultrasound of the left lower extremity was negative for DVT. The patient still has an indwelling Lopez catheter which is producing moderate amount of urine. The urine will go for culture. I discussed the case with the [facility] and they will evaluate for further management. Triage Nursing notes reviewed and agree them. Additional history obtained from the patient's who is at the bedside. Prior medical records reviewed Vital Signs: reviewed and remarkable for bradycardia Differential diagnosis: Accidental drug overdose, hyperglycemia, hypoglycemia, stroke, intracranial hemorrhage ER treatment provided: IV normal saline Diagnostics interpreted by me: ECG: Sinus bradycardia at a rate of 55 with first-degree AV block and right bundle branch block. This is unchanged from previous EKG. There are no signs of ischemia and no ectopy. Cardiac Monitoring: Sinus bradycardia at 57 Laboratory studies: See below Imaging studies: As per stat rad Ultrasound left lower extremity: No evidence for deep vein thrombosis involving the left lower extremity. Minimal subcutaneous edema suggested. No loculated fluid collection. HPI: 84/M arrives for evaluation of altered mental status. The patient's called EMS [facility] when she could not wake him. She found him slumped over in a chair with one eye open and closed skin. She was concerned because she had given him a dose of clonazepam and oxycodone. She was also worried about his blood sugar. EMS found his blood sugar to be elevated. ROS: See above HPI for pertinent positives & negatives. A total of 10 systems reviewed and were otherwise negative. PAST MEDICAL HISTORY:See Below PAST SURGICAL HISTORY:See Below SOCIAL HISTORY:Lives with his HOME MEDICATIONS:See list ALLERGIES:See list VITALS:See Below PHYSICAL EXAMINATION: HEENT: Head - normocephalic and atraumatic. Pupils are equal, round, and reactive to light. Extraocular eye muscles are intact and sclera are anicteric. Ears - bilaterally patent canals with noninjected tympanic membranes and no evidence of hemotympanum. Nose - moist nasal mucosa without discharge. Mouth - moist buccal mucosa. Oropharynx is nonerythematous and there is no tonsillar exudate or edema noted. Neck: Supple; no JVD or cervical Heart: Regular rate and rhythm. There is a normal S1 and S2 with no murmurs, clicks, or gallops appreciated. Lungs: Clear to auscultation bilaterally with no wheezes, rales, or rhonchi. Abdomen: Soft, completely nontender, nondistended, with good bowel sounds. There are no palpable pulsatile masses or hepatosplenomegaly. There is no guarding, rigidity, or rebound noted. Extremities: Moderate edema to the entire left lower extremity. Neuro:The patient is awake and alert, oriented to day, time, and place. Muscle strength is 5/5 in all 4 extremities. The patient has equal technical aid strength and equal pedal push and pull. There are no cerebellar signs. ED COURSE: Times/Reassessments: 0135 the patient was evaluated in room C7. A complete history and physical was performed. An order was placed for continuous cardiac monitoring. The patient was a sinus bradycardia at a rate of 54. Laboratory studies were drawn as above. A twelve-lead EKG was obtained. The patient's nurse spoke with the patient's on the phone who gave much of the history. Patient is resting comfortably at this time. He was given a 500 cc bolus of saline. 0420: I reevaluated the patient at this time and his is present at the bedside. She was able to add additional history. He remains alert and oriented. He went for ultrasound of the left lower extremity to rule out DVT. This was negative. Kiara Quiroz DO Past Med/Surg History Medical History (Updated 03/24/20 @ 06:30 by Arlen Gaitan DO) Anxiety Aortic stenosis Mild per 03/06/19 stress ECHO Asthma Uses rescue inhaler a couple times per week Atrial fibrillation Follows with Dr. Gr Blindness of left eye BPH (benign prostatic hyperplasia) CAD (coronary artery disease) Angioplasty ~1993, CABG x 3 2013 (GALINDO to LAD, SVG to PDA, SVG to OM) CHF (congestive heart failure) Chronic kidney disease Follows with Dr. Dixon Chronic obstructive pulmonary disease Diabetes Type 2 IDDM GERD (gastroesophageal reflux disease) Hiatal hernia Hyperlipidemia Hypertension Hypothyroidism Macular degeneration Myocardial infarct ~1993 Peripheral neuropathy Rupture of left distal biceps tendon hx - no surgery Secondary hyperparathyroidism (of renal origin) Surgical History Fusion of spine lumbar History of appendectomy History of cardiac cath with angioplasty ~1993 ([facility]) & 2013 ([facility]) History of cataract surgery bilateral History of coronary artery bypass graft x3 vessels ([facility] 2013) with epicardial RFA of pulmonary veins and left atrial appendage ligation History of revision of total replacement of right knee joint History of tonsillectomy History of tooth extraction History of total left knee replacement History of total right knee replacement Hx of colonoscopy Previous back surgery (08/26/12) S/P cholecystectomy Family History Brother Heart disease Diabetes Sister Cancer Mother Diabetes Father Diabetes Other Hypertension Kidney disease Social History Smoking Status: Unknown if ever smoked Tobacco Type: Cigarettes Second Hand Exposure: No; Hx Alcohol Use: No Hx Substance Use: No Preferred Language: Andorran Communication Ability: Effective 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: No Beliefs That Will Affect Care: None marital status: Current Living Situation: Spouse current occupational status: retired Feels Safe at Home: Yes Assistive Devices: Walker Allergies Allergies Allergy/AdvReac Type Severity Reaction Status Date / Time ropinirole AdvReac Intermediate CHANGE IN Verified 03/24/20 02:12 MENTAL STATUS Home Meds Home Medications Medication Instructions Recorded Confirmed albuterol sulfate 90 mcg/actuation 2 puffs INHALATION QID PRN gm 01/10/19 03/24/20 aerosol inhaler budesonide-formoterol HFA 160 2 puffs INHALATION BID gm 01/10/19 03/24/20 mcg-4.5 mcg/actuation aerosol inhaler bumetanide 2 mg tablet 3 mg PO BID #180 tab 01/10/19 03/24/20 diphenhydramine HCl 25 mg capsule 50 mg PO BID cap 01/10/19 03/24/20 docusate sodium 100 mg capsule 200 mg PO BID cap 01/10/19 03/24/20 levothyroxine 88 mcg tablet 88 mcg PO QAM #90 tab 01/10/19 03/24/20 metoprolol tartrate 25 mg tablet 25 mg PO BID #90 tab 01/10/19 03/24/20 multivitamin 1 tab PO DAILY 01/10/19 03/24/20 pantoprazole 40 mg tablet,delayed 40 mg PO QAM #30 tab 01/10/19 03/24/20 release potassium chloride 20 mEq 10 - 20 meq PO BID tab 01/10/19 03/24/20 tablet,extended release tiotropium bromide 18 mcg capsule 1 cap INHALATION DAILY #90 puffs 01/10/19 03/24/20 with inhalation device Lantus Solostar U-100 Insulin 26 unit SUBCUT BID 01/20/19 03/24/20 Fiber Gummies 2 g PO DAILY 04/23/19 03/24/20 Ocuvite Adult 50 Plus 1 cap PO DAILY 04/23/19 03/24/20 aspirin [Aspirin Low Dose] 81 mg PO BID 04/23/19 03/24/20 finasteride 5 mg PO HS 04/23/19 03/24/20 losartan 25 mg PO QAM 04/23/19 03/24/20 simvastatin 40 mg PO HS 04/23/19 03/24/20 tamsulosin 0.4 mg PO HS 04/23/19 03/24/20 glipizide 5 mg PO BID 01/31/20 03/24/20 gabapentin 100 mg capsule 100 mg PO .COMPLEX #30 cap 02/21/20 03/24/20 clonazepam 0.25 mg PO BID 03/16/20 03/24/20 Previous Rx's Medication Instructions Recorded oxycodone-acetaminophen 1 tab PO Q8H PRN #10 tab 03/17/20 Results & Data (ED) Vital Signs Vital Signs - 24 hr 03/24/20 01:15 03/24/20 01:29 03/24/20 01:30 Temperature 36.6 C Temperature Source Oral Pulse Rate 58 L 58 L 59 L Pulse Rate from SpO2 Sensor 58 L 58 L Pulse Strength Normal Respiratory Rate 16 18 17 Respiratory Effort / Characteristics Normal for Patient Blood Pressure 150/57 H 150/57 H 137/55 L Blood Pressure Mean 88 87 73 Blood Pressure Position Lying Pulse Oximetry 98 92 Oxygen Delivery Method Room Air Sepsis Recent Fever Within 48 Hours No Sepsis New/Unexplained Change in Mental Status Yes Sepsis Action Taken by Nursing No Action Required 03/24/20 01:32 03/24/20 01:58 03/24/20 02:00 Temperature Temperature Source Pulse Rate 57 L 56 L Pulse Rate from SpO2 Sensor 56 L Pulse Strength Respiratory Rate 14 21 Respiratory Effort / Characteristics Blood Pressure 103/48 L Blood Pressure Mean 58 Blood Pressure Position Pulse Oximetry 92 92 Oxygen Delivery Method Room Air Sepsis Recent Fever Within 48 Hours Sepsis New/Unexplained Change in Mental Status Sepsis Action Taken by Nursing 03/24/20 02:30 03/24/20 03:00 03/24/20 03:30 Temperature Temperature Source Pulse Rate 53 L 52 L 54 L Pulse Rate from SpO2 Sensor 53 L 52 L 54 L Pulse Strength Respiratory Rate 14 17 15 Respiratory Effort / Characteristics Blood Pressure 101/48 L 109/48 L 123/53 L Blood Pressure Mean 59 66 71 Blood Pressure Position Pulse Oximetry 92 91 92 Oxygen Delivery Method Sepsis Recent Fever Within 48 Hours Sepsis New/Unexplained Change in Mental Status Sepsis Action Taken by Nursing 03/24/20 04:00 03/24/20 04:30 03/24/20 05:00 Temperature Temperature Source Pulse Rate 52 L 53 L 57 L Pulse Rate from SpO2 Sensor 51 L 53 L Pulse Strength Respiratory Rate 17 18 20 Respiratory Effort / Characteristics Blood Pressure 112/51 L 119/52 L Blood Pressure Mean 62 65 Blood Pressure Position Pulse Oximetry 95 93 Oxygen Delivery Method Sepsis Recent Fever Within 48 Hours Sepsis New/Unexplained Change in Mental Status Sepsis Action Taken by Nursing Laboratory Data Result diagrams: 03/24/20 01:02 03/24/20 01:02 Lab Results 03/24/20 03/24/20 03/24/20 Range/Units 01:02 01:02 02:15 WBC 8.03 (4.8-10.8) K/uL RBC 3.87 L (4.7-6.1) M/uL Hgb 12.1 L (14.0-18.0) g/dL Hct 35.9 L (42-52) % MCV 92.8 (80-100) fL MCH 31.3 (25-34) pg MCHC 33.7 (32-36) g/dL Plt Count 235 (130-400) K/uL Immature Gran % (Auto) 0.7 % Neut % (Auto) 70.9 % Lymph % (Auto) 21.0 % [place] % (Auto) 5.0 % Eos % (Auto) 2.2 % Baso % (Auto) 0.2 % Neut # (Auto) 5.68 (1.4-6.5) K/uL Lymph # (Auto) 1.69 (1.2-3.4) K/uL [place] # (Auto) 0.40 (0.11-0.59) K/uL Eos # (Auto) 0.18 (0-0.5) K/uL Baso # (Auto) 0.02 (0-0.2) K/uL Immature Gran # (Auto) 0.06 H (0.00-0.02) K/uL Sodium 131 L (136-145) mmol/L Potassium 5.0 (3.5-5.1) mmol/L Chloride 94 L (98-107) mmol/L Carbon Dioxide 32 (21-32) mmol/L Anion Gap 5.0 (3-11) BUN 53 H (7-18) mg/dl Creatinine 2.45 H (0.6-1.4) mg/dl Est Cr Clr Drug Dosing 23.9 ml/min Est GFR ( Amer) 27.0 Est GFR (Non-Af Amer) 23.3 BUN/Creatinine Ratio 21.7 H (10-20) Glucose 471 H* (70-99) mg/dl Calcium 9.2 (8.5-10.1) mg/dl Total Bilirubin 0.3 (0.2-1) mg/dl AST 35 (15-37) U/L ALT 51 (12-78) U/L Alkaline Phosphatase 154 H (45-117) U/L Total Protein 7.7 (6.4-8.2) gm/dl Albumin 2.9 L (3.4-5.0) gm/dl Globulin 4.8 H (2.5-4.0) gm/dl Albumin/Globulin Ratio 0.6 L (0.9-2) Beta-Hydroxybutyric Acd 1.09 (0.2-2.81) mg/dl TSH 1.280 (0.300-4.500) uIu/ml Urine Color Yellow Urine Appearance Cloudy A (Clear) Urine pH 5.5 (4.5-7.5) Ur Specific [place] 1.015 (1.000-1.030) Urine Protein 2+ H (Negative) Urine Glucose (UA) 2+ H (Negative) Urine Ketones Negative (Negative) Urine Blood 3+ H (Negative) Urine Nitrite Negative (Negative) Urine Bilirubin Negative (Negative) Urine Urobilinogen Negative (Negative) Ur Leukocyte Esterase Trace H (Negative) Urine WBC (Auto) 5-10 H (0-5) /hpf Urine RBC (Auto) >30 H (0-4) /hpf U Hyaline Cast (Auto) 5-10 H (0-5) /lpf U Epithel Cells (Auto) 5-10 H (0-5) /lpf Urine Bacteria (Auto) 1+ H (Negative) Urine Yeast Not Reportable Administered Medications Discontinued Medications Sodium Chloride (Nss) 500 mls @ 999 mls/hr IV .Q31M ONE Stop: 03/24/20 03:18 Last Infusion: 03/24/20 03:38 Dose: 0 mls/hr Documented by: [id number] Admin: 03/24/20 02:50 Dose: 999 mls/hr Documented by: [id number] Discharge Plan Visit Data Chief Complaint: Lethargic Stated Complaint: LETHARGIC/SWOLLEN FOOT ED Provider: Kiara Quiroz Discharge Problem: Hyperglycemia due to diabetes mellitus, JUDI (acute kidney injury) Forms Stand Alone Forms: My [facility] Prescriptions Prescriptions: No Action diphenhydramine HCl 25 mg capsule 50 mg PO BID RF: 0 docusate sodium 100 mg capsule 200 mg PO BID RF: 0 metoprolol tartrate 25 mg tablet 25 mg PO BID Qty: 90 RF: 0 multivitamin [Daily Multi-Vitamin] tablet 1 tab PO DAILY RF: 0 pantoprazole 40 mg tablet,delayed release (DR/EC) 40 mg PO QAM Qty: 30 RF: 0 Spiriva with HandiHaler 18 mcg capsule, w/inhalation device 1 cap inhalation DAILY Qty: 90 RF: 0 levothyroxine 88 mcg tablet 88 mcg PO QAM Qty: 90 RF: 0 albuterol sulfate 90 mcg/actuation HFA aerosol inhaler 2 puffs inhalation QID PRN (Reason: shortness of breath or wheezing) RF: 0 Symbicort 160-4.5 mcg/actuation HFA aerosol inhaler 2 puffs inhalation BID RF: 0 bumetanide 2 mg tablet 3 mg PO BID Qty: 180 RF: 0 potassium chloride 20 mEq tablet extended release 10 - 20 meq PO BID RF: 0 gabapentin 100 mg capsule 100 mg PO .COMPLEX Qty: 30 RF: 0 clonazepam 0.5 mg tablet 0.25 mg PO BID RF: 0 oxycodone-acetaminophen 5-325 mg tablet 1 tab PO Q8H PRN (Reason: pain) Qty: 10 RF: 0 Lantus Solostar U-100 Insulin 100 unit/mL (3 mL) Insulin Pen 26 unit SUBCUT BID RF: 0 aspirin [Aspirin Low Dose] 81 mg Tablet,Delayed Release (Dr/Ec) 81 mg PO BID RF: 0 simvastatin 40 mg Tablet 40 mg PO HS RF: 0 Ocuvite Adult 50 Plus 250-5-1 mg Capsule 1 cap PO DAILY RF: 0 Fiber Gummies 2 gram Tablet,Chewable 2 g PO DAILY RF: 0 tamsulosin 0.4 mg capsule 0.4 mg PO HS RF: 0 losartan 25 mg tablet 25 mg PO QAM RF: 0 finasteride 5 mg tablet 5 mg PO HS RF: 0 glipizide 5 mg Tablet 5 mg PO BID RF: 0
--- NOTE | 2020-03-24 06:19 | History & Physical Report ---
Date of Service March 24, 2020 Assessment & Plan (1) AMS (altered mental status): 84yo C male with episode of unresponsiveness prior to arrival. Seemingly resolved as patient is back to his functional baseline. Uncertain etiology, possibly secondary to medication effects from opioid + benzo. Patient is dehydrated with mild hyponatremia which may also be contributing to AMS. No neurological deficits -Caution with medications -Continue to monitor Present on Admission?: Yes (2) Edema of left lower extremity: Patient with bilateral LE edema, L > R. No warmth but tenderness of left great toe and dorsum of foot with mild redness. Cool to touch. No DVT. ?fracture, ?gout ?dependent edema as patient has been sleeping upright in recliner, jeronimo bag on LLE with mild compression -Check X-ray right foot -Consider treatment with steroid (avoid NSAIDs given renal dysfunction) -Continue Oxycodone and clonazepam with caution -Continue Gabapentin for neuropathic pain Present on Admission?: Yes (3) Diabetes: Patient with poorly controlled DM, elevated blood sugar today at 471. States that his average BSG at home is 178. Last SzVM4V=01.4 on 03/17. -Continue Lantus 26u BID - give dose now -ISS -Goal blood sugar 100 - 180 -Hold oral agents Present on Admission?: Yes (4) Vfnjv-[id number]-luhjptp kidney injury: Increased BUN and Cr on CKD - patient with Jeronimo in place, making urine, appears to be concentrated -Avoid nephrotoxic agents, Hold Losartan -Renal dosing where needed -Gentle IVF as below -Continue to monitor BUN, Cr, electrolytes and UOP Present on Admission?: Yes (5) BPH (benign prostatic hyperplasia): Chronic -Jeronimo in place, routine care q shift -Finasteride 5mg po daily -Flomax 0.4mg (6) CAD (coronary artery disease): Patient with CAD s/p CABG x 3V, follows with Cardiology. No CP at present. EKG with no ischemic changes. -Continue ASA 81mg po daily -Continue Metoprolol 25mg po BID -Continue Simvastatin -Holding Losartan for now, monitor renal function Present on Admission?: Yes (7) CHF (congestive heart failure): Patient appears euvolemic on exam -Holding Losartan and Bumex for now -Gentle IVF Present on Admission?: Yes (8) Dyslipidemia: Chronic. Stable -Continue Simvastatin Present on Admission?: Yes (9) GERD (gastroesophageal reflux disease): Chronic. Stable -Continue Protonix Present on Admission?: Yes (10) Hypertension: Chronic. Well controlled at present -Continue Metoprolol -Hold Losartan -Continue to monitor BP Present on Admission?: Yes (11) COPD (chronic obstructive pulmonary disease): Chronic. Stable,. Adequate oxygenation on room air with no respiratory distress. -Continue home inhalers Present on Admission?: Yes (12) Hypothyroidism: Chronic. Stable -Continue Synthroid F/E/N - NSS at 100mL/hr x 1 liter, monitor electrolytes, CC/AHA diet as tolerated Ppx - Heparin ppx Code -Full Dispo - Observation to medical Present on Admission?: Yes History of Present Illness Chief Complaint: [facility] Primary Care Provider: Cory Nunez DO Aj Monroy is a pleasant 84yo C male presenting with altered mental status. Patient with multiple medical comorbidities to include HTN/HLP/DM/COPD/GERD/CKD/CAD and AF. Patient recently had a TURP performed on 03/16/[address] Gunter. The procedure was well tolerated with no complications. The patient was discharged home on 03/17. His states that he has been sleepy since returning home. He has been sleeping in the recliner chair. Patient began having some increase in LLE edema noted on 03/19 and pain in his feet and legs, L > R. states that the pain in his feet is so bad that he is unable to ambulate without assistance - she has been using a wheelchair for him at home. He has been taking Oxycodone for pain as well as Clonazepam for the nerves in his feet. reports that the patient was somnolent yesterday and not acting like himself. He took an Oxycodone and Clonazepam around dinner time and was sleepy/groggy around 1930 so he antoine to bed. His found him at 12:30 slumped over in his recliner chair - unresponsive. She said that he was pale and cool, blood pressure measured and was normal. EMS was called and he was brought to the ER. Patient afebrile, HD stable in the ER. MS improved. states he is now near his baseline mental status. Laboratory workup with hyperglycemia, elevated BUN and Cr from baseline, significant swelling of LLE. Er Course: NSS x 500mL Allergies Allergy/AdvReac Type Severity Reaction Status Date / Time ropinirole AdvReac Intermediate CHANGE IN Verified 03/24/20 02:12 MENTAL STATUS Home Medications Home Medications Medication Instructions Recorded Confirmed Type albuterol sulfate 90 mcg/actuation 2 puffs INHALATION QID PRN gm 01/10/19 03/24/20 History aerosol inhaler budesonide-formoterol HFA 160 2 puffs INHALATION BID gm 01/10/19 03/24/20 History mcg-4.5 mcg/actuation aerosol inhaler bumetanide 2 mg tablet 3 mg PO BID #180 tab 01/10/19 03/24/20 History diphenhydramine HCl 25 mg capsule 50 mg PO BID cap 01/10/19 03/24/20 History docusate sodium 100 mg capsule 200 mg PO BID cap 01/10/19 03/24/20 History levothyroxine 88 mcg tablet 88 mcg PO QAM #90 tab 01/10/19 03/24/20 History metoprolol tartrate 25 mg tablet 25 mg PO BID #90 tab 01/10/19 03/24/20 History multivitamin 1 tab PO DAILY 01/10/19 03/24/20 History pantoprazole 40 mg tablet,delayed 40 mg PO QAM #30 tab 01/10/19 03/24/20 History release potassium chloride 20 mEq 10 - 20 meq PO BID tab 01/10/19 03/24/20 History tablet,extended release tiotropium bromide 18 mcg capsule 1 cap INHALATION DAILY #90 puffs 01/10/19 03/24/20 History with inhalation device Lantus Solostar U-100 Insulin 26 unit SUBCUT BID 01/20/19 03/24/20 History Fiber Gummies 2 g PO DAILY 04/23/19 03/24/20 History Ocuvite Adult 50 Plus 1 cap PO DAILY 04/23/19 03/24/20 History aspirin [Aspirin Low Dose] 81 mg PO BID 04/23/19 03/24/20 History finasteride 5 mg PO HS 04/23/19 03/24/20 History losartan 25 mg PO QAM 04/23/19 03/24/20 History simvastatin 40 mg PO HS 04/23/19 03/24/20 History tamsulosin 0.4 mg PO HS 04/23/19 03/24/20 History glipizide 5 mg PO BID 01/31/20 03/24/20 History gabapentin 100 mg capsule 100 mg PO .COMPLEX #30 cap 02/21/20 03/24/20 History clonazepam 0.25 mg PO BID 03/16/20 03/24/20 History oxycodone-acetaminophen 1 tab PO Q8H PRN #10 tab 03/17/20 03/24/20 Rx Past Med/Surg History Medical History (Updated 03/24/20 @ 06:30 by Arlen Gaitan DO) Anxiety Aortic stenosis Mild per 03/06/19 stress ECHO Asthma Uses rescue inhaler a couple times per week Atrial fibrillation Follows with Dr. Gr Blindness of left eye BPH (benign prostatic hyperplasia) CAD (coronary artery disease) Angioplasty ~1993, CABG x 3 2013 (GALINDO to LAD, SVG to PDA, SVG to OM) CHF (congestive heart failure) Chronic kidney disease Follows with Dr. Dixon Chronic obstructive pulmonary disease Diabetes Type 2 IDDM GERD (gastroesophageal reflux disease) Hiatal hernia Hyperlipidemia Hypertension Hypothyroidism Macular degeneration Myocardial infarct ~1993 Peripheral neuropathy Rupture of left distal biceps tendon hx - no surgery Secondary hyperparathyroidism (of renal origin) Surgical History Fusion of spine lumbar History of appendectomy History of cardiac cath with angioplasty ~1993 ([facility]) & 2013 ([facility]) History of cataract surgery bilateral History of coronary artery bypass graft x3 vessels ([facility] 2013) with epicardial RFA of pulmonary veins and left atrial appendage ligation History of revision of total replacement of right knee joint History of tonsillectomy History of tooth extraction History of total left knee replacement History of total right knee replacement Hx of colonoscopy Previous back surgery (08/26/12) S/P cholecystectomy Family History Brother Heart disease Diabetes Sister Cancer Mother Diabetes Father Diabetes Other Hypertension Kidney disease Social History Smoking Status: Unknown if ever smoked Tobacco Type: Cigarettes Second Hand Exposure: No; Hx Alcohol Use: No Hx Substance Use: No Preferred Language: Hebrew Communication Ability: Effective Cell Attendant Required: No Beliefs That Will Affect Care: None marital status: Current Living Situation: Spouse current occupational status: retired Feels Safe at Home: Yes Assistive Devices: Walker Review of Systems Review of Systems: All systems reviewed & are unremarkable except as noted in HPI & below Denies fevers/chills Denies CP/SOB/palpitations Denies abdominal pain/nausea/vomiting/diarrhea or constipation +Poor appetite and decreased PO intake Physical Exam Physical Exam: General: patient resting comfortably, NAD, non-toxic in appearance, AA&O x 4 Skin: warm, dry, intact, no rashes or lesions HEENT: NC/AT, PERRL, EOMI, anicteric sclera, conjunctiva without injection, external ear normal to inspection and nontender, nares patent, moist mucus membranes, dentition intact, no oropharyngeal lesions, neck supple, trachea midline, no LAD, no thyromegaly, no JVD Heart: +S1/S2, regular, bradycardic, 3/6 LACI at right 2nd ICS with radiation across precordium, no rubs/gallops Lungs: equal air entry bilaterally, no rales/rhonchi/wheezes Abd: +BS, soft, NT/ND, no masses/organomegaly/ascites Ext: warm, 2+ pulses in UE/LE bilaterally,+edema of bilateral LE, L>R, +tenderness of left great toe, leg catheter bag on LLE with band below knee Neuro: nonfocal, patient AA&O x 4, speech intact, no facial droop, moving all extremities on command with equal strength 5/5 Results & Data Results & Data ([facility]) Vital Signs (Past 12 Hours) Vital Signs Temp Pulse Resp BP Pulse Ox 03/24/20 05:00 57 L 20 03/24/20 04:30 53 L 18 119/52 L 93 03/24/20 04:00 52 L 17 112/51 L 95 03/24/20 03:30 54 L 15 123/53 L 92 03/24/20 03:00 52 L 17 109/48 L 91 03/24/20 02:30 53 L 14 101/48 L 92 03/24/20 02:00 56 L 21 103/48 L 92 03/24/20 01:58 92 03/24/20 01:32 57 L 14 03/24/20 01:30 59 L 17 137/55 L 03/24/20 01:29 58 L 18 150/57 H 92 03/24/20 01:15 36.6 C 58 L 16 150/57 H 98 Laboratory Results Lab Results 03/24/20 03/24/20 03/24/20 Range/Units 01:02 01:02 02:15 WBC 8.03 (4.8-10.8) K/uL RBC 3.87 L (4.7-6.1) M/uL Hgb 12.1 L (14.0-18.0) g/dL Hct 35.9 L (42-52) % MCV 92.8 (80-100) fL MCH 31.3 (25-34) pg MCHC 33.7 (32-36) g/dL Plt Count 235 (130-400) K/uL Immature Gran % (Auto) 0.7 % Neut % (Auto) 70.9 % Lymph % (Auto) 21.0 % [place] % (Auto) 5.0 % Eos % (Auto) 2.2 % Baso % (Auto) 0.2 % Neut # (Auto) 5.68 (1.4-6.5) K/uL Lymph # (Auto) 1.69 (1.2-3.4) K/uL [place] # (Auto) 0.40 (0.11-0.59) K/uL Eos # (Auto) 0.18 (0-0.5) K/uL Baso # (Auto) 0.02 (0-0.2) K/uL Immature Gran # (Auto) 0.06 H (0.00-0.02) K/uL Sodium 131 L (136-145) mmol/L Potassium 5.0 (3.5-5.1) mmol/L Chloride 94 L (98-107) mmol/L Carbon Dioxide 32 (21-32) mmol/L Anion Gap 5.0 (3-11) BUN 53 H (7-18) mg/dl Creatinine 2.45 H (0.6-1.4) mg/dl Est Cr Clr Drug Dosing 23.9 ml/min Est GFR ( Amer) 27.0 Est GFR (Non-Af Amer) 23.3 BUN/Creatinine Ratio 21.7 H (10-20) Glucose 471 H* (70-99) mg/dl Calcium 9.2 (8.5-10.1) mg/dl Total Bilirubin 0.3 (0.2-1) mg/dl AST 35 (15-37) U/L ALT 51 (12-78) U/L Alkaline Phosphatase 154 H (45-117) U/L Total Protein 7.7 (6.4-8.2) gm/dl Albumin 2.9 L (3.4-5.0) gm/dl Globulin 4.8 H (2.5-4.0) gm/dl Albumin/Globulin Ratio 0.6 L (0.9-2) Beta-Hydroxybutyric Acd 1.09 (0.2-2.81) mg/dl TSH 1.280 (0.300-4.500) uIu/ml Urine Color Yellow Urine Appearance Cloudy A (Clear) Urine pH 5.5 (4.5-7.5) Ur Specific [place] 1.015 (1.000-1.030) Urine Protein 2+ H (Negative) Urine Glucose (UA) 2+ H (Negative) Urine Ketones Negative (Negative) Urine Blood 3+ H (Negative) Urine Nitrite Negative (Negative) Urine Bilirubin Negative (Negative) Urine Urobilinogen Negative (Negative) Ur Leukocyte Esterase Trace H (Negative) Urine WBC (Auto) 5-10 H (0-5) /hpf Urine RBC (Auto) >30 H (0-4) /hpf U Hyaline Cast (Auto) 5-10 H (0-5) /lpf U Epithel Cells (Auto) 5-10 H (0-5) /lpf Urine Bacteria (Auto) 1+ H (Negative) Urine Yeast Not Reportable Diagnostic Findings Venous Doppler - per STAT rad - No DVT ECG Additional Comments: EKG wtih SB at 55, no acute EKG changes, RBBB Code Status & VTE Plan Code Status FULL PG Care Time/CCT Total # of Minutes Spent Total Time Spent with Patient: Total time spent is greater than 50% in coordin ation of care (as documented) at patient's floor/unit and/or counseling patient: Coding Level of Care Code 29510 OBS Care - Level 3 Diagnoses AMS (altered mental status) R41.82 Altered mental status type: unspecified Edema of left lower extremity R60.0 Diabetes E11.65; Z79.4 Diabetes mellitus type: type 2 Diabetes mellitus watermelon inspector insulin use: with residential use Diabetes mellitus complication status: with hyperglycemia Wjpbo-tu-brteuuj kidney injury N17.9; N18.9 Acute renal failure type: unspecified Chronic kidney disease stage: unspecified stage BPH (benign prostatic hyperplasia) N40.0 Lower urinary tract symptom presence: symptoms absent CAD (coronary artery disease) I25.10 Coronary Disease-Associated Artery/Lesion type: red devil artery [place] vs. transplanted heart: red devil heart Associated angina: without angina CHF (congestive heart failure) I50.9 Heart failure type: unspecified Heart failure chronicity: unspecified Dyslipidemia E78.5 GERD (gastroesophageal reflux disease) K21.9 Esophagitis presence: esophagitis presence not specified Hypertension I10 Hypertension type: essential hypertension COPD (chronic obstructive pulmonary disease) J44.9 COPD type: unspecified COPD Hypothyroidism E03.9 Hypothyroidism type: unspecified (1) AMS (altered mental status) Altered mental status type: unspecified Qualified Code(s): R41.82 - Altered mental status, unspecified (2) Diabetes Diabetes mellitus type: type 2 Diabetes mellitus watermelon inspector insulin use: with watermelon inspector use Diabetes mellitus complication status: with hyperglycemia Qualified Code(s): E11.65 - Type 2 diabetes mellitus with hyperglycemia; 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 transplanted heart: red devil heart Associated angina: without angina Qualified Code(s): I25.10 - Atherosclerotic heart disease of red devil coronary artery withou t angina pectoris (6) CHF (congestive heart failure) Heart failure type: unspecified Heart failure chronicity: unspecified Qualified Code(s): I50.9 - Heart failure, unspecified (7) GERD (gastroesophageal reflux disease) Esophagitis presence: esophagitis presence not specified Qualified Code(s): K21.9 - Gastro-esophageal reflux disease without esophagitis (8) Hypertension Hypertension type: essential hypertension Qualified Code(s): I10 - Essential (primary) hypertension (9) Hypothyroidism Hypothyroidism type: unspecified Qualified Code(s): E03.9 - Hypothyroidism, unspecified (10) COPD (chronic obstructive pulmonary disease) COPD type: unspecified COPD Qualified Code(s): J44.9 - Chronic obstructive pulmonary disease, unspecified
--- NOTE | 2020-03-24 07:09 | Ultrasound Report ---
LEFT LOWER EXTREMITY VENOUS DOPPLER HISTORY: Left leg swelling. eval for dvt COMPARISON STUDY: None. FINDINGS: There is normal compressibility, flow, and augmentation within the left lower extremity susan p venous system. IMPRESSION: No DVT within the left lower extremity. ACT 112: Negative or not required by law. Electronically signed by: Otoniel Olivarez M.D. 03/24/2020 7:07 AM
[2020-03-24] MEDS ORDERED: CARBOHYDRATES FOR HYPOGLYCEMIA PO PRN (08:21)
[2020-03-24] MEDS ORDERED: DEXTROSE 50% 50 ML SYRINGE IV PRN (08:21)
[2020-03-24] MEDS ORDERED: INSULIN GLARGINE SOLOSTAR 100 UNITS/ML 3 ML PEN SQ SCH ×2 (08:21→21:00)
[2020-03-24] MEDS ORDERED: ALBUTEROL HFA 8 GM INHALER INH PRN (08:21)
[2020-03-24] MEDS ORDERED: oxyCODONE/ACETAMINOPHEN 5mg/325mg TAB PO PRN (08:21)
[2020-03-24] MEDS ORDERED: GLUCOSE 10 TABS/TUBE PO PRN (08:21)
[2020-03-24] MEDS ORDERED: DOCUSATE SODIUM 100 MG CAP PO PRN (08:21)
[2020-03-24] MEDS ORDERED: GLUCAGON FOR INJ 1 MG VIAL SQ PRN (08:21)
[2020-03-24] MEDS ORDERED: GLUCOSE 40% GEL 15 GM TUBE PO PRN (08:21)
[2020-03-24] MEDS ORDERED: SODIUM CHLORIDE 0.9% 1000ML 1,000 ML IV SCH (08:21)
[2020-03-24] MEDS ORDERED: ONDANSETRON INJ 2 MG/ML 2 ML VIAL IV PRN (08:21)
[2020-03-24 09:25] LABS: Magnesium 2.7 mg/dl (1.8-2.4); Phosphorus 4.3 mg/dl (2.5-4.9)
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
[2020-03-24] MEDS: INSULIN ASPART 100 UNITS/ML 3 ML PEN SC SCH ×4 (09:58→22:39)
[2020-03-24] MEDS: METOPROLOL TARTRATE 25 MG TAB PO SCH ×2 (10:00→20:20)
[2020-03-24] MEDS: UMECLIDINIUM BROMIDE 62.5MCG/BLISTER 7 PUFFS/INHALER INH SCH (10:00)
[2020-03-24] MEDS: LEVOTHYROXINE SODIUM 88 MCG TABLET PO SCH (10:00)
[2020-03-24] MEDS: PANTOprazole 40 MG TAB PO SCH (10:00)
[2020-03-24] MEDS: diphenhydrAMINE Capsule 25 MG CAP PO SCH ×2 (10:05→20:24)
[2020-03-24] MEDS: clonazePAM 0.25 MG TAB PO SCH ×2 (10:05→20:24)
[2020-03-24] MEDS: FLUTICASONE/VILANTEROL 200/25MCG 14 PUFFS/INHALER INH SCH (10:05)
[2020-03-24] MEDS: DOCUSATE SODIUM 100 MG CAP PO SCH ×2 (10:05→20:24)
[2020-03-24] MEDS: GABAPENTIN 100 MG CAP PO SCH (10:06)
[2020-03-24] MEDS: ASPIRIN 81 MG ECTAB PO SCH ×2 (10:06→20:18)
[2020-03-24] MEDS: HEPARIN SOD 5,000 UNIT/0.5 ML VIAL SQ SCH ×2 (14:10→22:40)
[2020-03-24] MEDS ORDERED: SODIUM CHLORIDE 0.9% 1000ML 500 ML IV ONE (16:01)
--- NOTE | 2020-03-24 17:22 | Hospitalist Progress Note ---
Date of Service March 24, 2020 Assessment & Plan (1) AMS (altered mental status): See Today's H and P for full note, this is just an update Patient doing much better, having met patient before he appears to be mentating at baseline. Cause of his AMS likely multifactorial, patient is on quite a few sedating medications including clonazepam he has been taking for neuropathy, gabapentin, and oxycodone. On top of that patient presented with severe hyperglycemia and acute on chronic kidney injury. Likely dehydrated from his hyperglycemia. Will pull jreonimo today and tighten his sugar control. Increased basal insulin and correction factor. Bolused 500 ml NSS for soft pressure and will increase basal fluid rate overnight from 80-120. No history of CHF and patient clinically dry on exam. Full Code Admission and Anticipated Discharge Date Admission Date: March 24, 2020 Supervising Physician Co-Signing Physician Notes I personally examined the patient and verified all aguayo points of history and exam, discussed case, and agree with decision making with Dr Flor. feeling back to baseline. main complaints are foot hurting and [facility]. vitals noted nad heent nc at mmm breathing unlabored no accessory muscles good effort skin no pallor AMS - likely polypharmacy, hyperglycemia/dehydration, JUDI related - fluids, control sugars, stop narcotics, supportive care. appears improved from description of how he was on arrival otherwise as above Subjective See today's H and P for full history, this is just an update Review of Systems Review of Systems: See Today's H and P Physical Exam Physical Exam: See Today's H and P Results & Data Results & Data ([facility]) Vital Signs (Past 12 Hours) Vital Signs Temp Pulse Pulse Resp BP BP Pulse Ox 03/24/20 15:00 36.4 C L 56 L 16 105/52 L 97 03/24/20 08:10 36.6 C 106 H 18 183/51 H 97 03/24/20 07:33 51 L 18 111/75 97 03/24/20 07:01 51 L 17 96/53 L 03/24/20 05:00 57 L 20 Resident Activity Tracking Resident Involvement: Resident Care Provided Care Provided: Adult Hospital Medicine (1) AMS (altered mental status) Altered mental status type: unspecified Qualified Code(s): R41.82 - Altered mental status, unspecified
[2020-03-24] MEDS: SODIUM CHLORIDE 0.9% 1000ML 1,000 ML IV SCH (20:09)
[2020-03-24] MEDS ORDERED: SIMVASTATIN 40 MG TAB PO SCH (21:00)
[2020-03-24] MEDS ORDERED: FINASTERIDE 5 MG TAB PO SCH (21:00)
[2020-03-24] MEDS ORDERED: TAMSULOSIN HCL 0.4 MG CAP PO SCH (21:00)
[2020-03-24] MEDS ORDERED: GABAPENTIN 100 MG CAP PO SCH (21:00)
[2020-03-25] MEDS: SODIUM CHLORIDE 0.9% 1000ML 1,000 ML IV SCH (04:43)
[2020-03-25 05:52] LABS: Estimated Average Glucose 269 mg/dl
--- NOTE | 2020-03-25 05:53 | Electrocardiogram Report ---
Test Reason : Blood Pressure : / mmHG Vent. Rate : 055 BPM Atrial Rate : 055 BPM P-R Int : 232 ms QRS Dur : 160 ms QT Int : 476 ms P-R-T Axes : 059 -60 024 degrees QTc Int : 455 ms Sinus bradycardia with 1st degree A-V block Left axis deviation Right bundle branch block Abnormal ECG When compared with ECG of 03-FEB-2020 12:23, No significant change was found Confirmed by Davis Dillard ([id number]) on 03/25/2020 5:53:02 AM Referred By: REFERRED SELF Confirmed By:Davis Dillard
[2020-03-25] MEDS: LEVOTHYROXINE SODIUM 88 MCG TABLET PO SCH (06:06)
[2020-03-25] MEDS: HEPARIN SOD 5,000 UNIT/0.5 ML VIAL SQ SCH (06:07)
[2020-03-25 08:53] LABS: Basophils # (auto) 0.03 K/uL (0-0.2); Basophils % (auto) 0.4 %; Eosinophils # (auto) 0.22 K/uL (0-0.5); Eosinophils % (auto) 3.1 %; Hematocrit (blood only) 31.4 % (42-52); Hemoglobin 10.3 g/dL (14.0-18.0); Immature Granulocytes # (auto) 0.04 K/uL (0.00-0.02); Immature Granulocytes % (auto) 0.6 %; Lymphocytes # (auto) 2.15 K/uL (1.2-3.4); Lymphocytes % (auto) 30.5 %; Mean Corpuscular Hemoglobin 30.6 pg (25-34); Mean Corpuscular Hgb Conc 32.8 g/dL (32-36); Mean Corpuscular Volume 93.2 fL (80-100); Mean Platelet Volume 9.5 fL (7.4-10.4); Monocytes # (auto) 0.28 K/uL (0.11-0.59); Neutrophils # (auto) 4.32 K/uL (1.4-6.5); Neutrophils % (auto) 61.4 %; Platelet Count 195 K/uL (130-400); RDW Standard Deviation 44.6 fL (36.4-46.3); Red Blood Count 3.37 M/uL (4.7-6.1); White Blood Count 7.04 K/uL (4.8-10.8)
[2020-03-25] MEDS ORDERED: INSULIN GLARGINE SOLOSTAR 100 UNITS/ML 3 ML PEN SQ SCH (09:00)
[2020-03-25] MEDS: diphenhydrAMINE Capsule 25 MG CAP PO SCH (09:06)
[2020-03-25] MEDS: UMECLIDINIUM BROMIDE 62.5MCG/BLISTER 7 PUFFS/INHALER INH SCH (09:06)
[2020-03-25] MEDS: FLUTICASONE/VILANTEROL 200/25MCG 14 PUFFS/INHALER INH SCH (09:06)
[2020-03-25] MEDS: clonazePAM 0.25 MG TAB PO SCH (09:07)
[2020-03-25] MEDS: GABAPENTIN 100 MG CAP PO SCH (09:07)
[2020-03-25] MEDS: PANTOprazole 40 MG TAB PO SCH (09:07)
[2020-03-25] MEDS: ASPIRIN 81 MG ECTAB PO SCH (09:07)
[2020-03-25] MEDS: DOCUSATE SODIUM 100 MG CAP PO SCH (09:08)
[2020-03-25] MEDS: INSULIN ASPART 100 UNITS/ML 3 ML PEN SC SCH ×2 (09:12→12:51)
[2020-03-25] MEDS: METOPROLOL TARTRATE 25 MG TAB PO SCH (09:22)
[2020-03-25 09:32] LABS: Alanine Aminotransferase 26 U/L (12-78); Albumin Level 2.2 gm/dl (3.4-5.0); Alkaline Phosphatase 96 U/L (45-117); Aspartate Aminotransferase 18 U/L (15-37); BUN Creatinine Ratio 23.5 (10-20); Bilirubin Direct < 0.1 mg/dl (0-0.2); Bilirubin,Total 0.4 mg/dl (0.2-1); Blood Urea Nitrogen 38 mg/dl (7-18); Calcium 8.4 mg/dl (8.5-10.1); Carbon Dioxide 29 mmol/L (21-32); Chloride 110 mmol/L (98-107); Creatinine Clr Calc Pharmacy 36.3 ml/min; Est GFR (African American) 44.8; Est GFR (Non-African American) 38.7; Glucose 140 mg/dl (70-99); Potassium 4.6 mmol/L (3.5-5.1); Sodium 142 mmol/L (136-145); Total Protein 5.8 gm/dl (6.4-8.2)
--- NOTE | 2020-03-25 12:09 | Discharge Summary ---
Date of Service March 25, 2020 Admission HPI Per Admitting Provider Aj Monroy is a pleasant 84yo C male presenting with altered mental status. Patient with multiple medical comorbidities to include HTN/HLP/DM/COPD/GERD/CKD/CAD and AF. Patient recently had a TURP performed on 03/16/[address] Gunter. The procedure was well tolerated with no complications. The patient was discharged home on 03/17. His states that he has been sleepy since returning home. He has been sleeping in the recliner chair. Patient began having some increase in LLE edema noted on 03/19 and pain in his feet and legs, L > R. states that the pain in his feet is so bad that he is unable to ambulate without assistance - she has been using a wheelchair for him at home. He has been taking Oxycodone for pain as well as Clonazepam for the nerves in his feet. reports that the patient was somnolent yesterday and not acting like himself. He took an Oxycodone and Clonazepam around dinner time and was sleepy/groggy around 1930 so he antoine to bed. His found him at 12:30 slumped over in his recliner chair - unresponsive. She said that he was pale and cool, blood pressure measured and was normal. EMS was called and he was brought to the ER. Patient afebrile, HD stable in the ER. MS improved. states he is now near his baseline mental status. Laboratory workup with hyperglycemia, elevated BUN and Cr from baseline, significant swelling of LLE. Er Course: NSS x 500mL Admission Exam Per Admitting Provider General: patient resting comfortably, NAD, non-toxic in appearance, AA&O x 4 Skin: warm, dry, intact, no rashes or lesions HEENT: NC/AT, PERRL, EOMI, anicteric sclera, conjunctiva without injection, external ear normal to inspection and nontender, nares patent, moist mucus membranes, dentition intact, no oropharyngeal lesions, neck supple, trachea midline, no LAD, no thyromegaly, no JVD Heart: +S1/S2, regular, bradycardic, 3/6 LACI at right 2nd ICS with radiation across precordium, no rubs/gallops Lungs: equal air entry bilaterally, no rales/rhonchi/wheezes Abd: +BS, soft, NT/ND, no masses/organomegaly/ascites Ext: warm, 2+ pulses in UE/LE bilaterally,+edema of bilateral LE, L>R, +tenderness of left great toe, leg catheter bag on LLE with band below knee Neuro: nonfocal, patient AA&O x 4, speech intact, no facial droop, moving all extremities on command with equal strength 5/5 Principal Diagnosis JUDI on CKD, Altered MEntal Status Discharge Exam General: patient resting comfortably, NAD, non-toxic in appearance, AA&O x 4 Skin: warm, dry, intact, no rashes or lesions HEENT: NC/AT, PERRL, EOMI, anicteric sclera, conjunctiva without injection, external ear normal to inspection and nontender, nares patent, moist mucus membranes, dentition intact, no oropharyngeal lesions, neck supple, trachea midline, no LAD, no thyromegaly, no JVD Heart: +S1/S2, regular, bradycardic, 3/6 LACI at right 2nd ICS with radiation across precordium, no rubs/gallops Lungs: equal air entry bilaterally, no rales/rhonchi/wheezes Abd: +BS, soft, NT/ND, no masses/organomegaly/ascites Ext: warm, 2+ pulses in UE/LE bilaterally,+edema of bilateral LE, L>R, +tenderness of left great toe, leg catheter bag on LLE with band below knee Neuro: nonfocal, patient AA&O x 4, speech intact, no facial droop, moving all extremities on command with equal strength 5/5 Discharge Data Allergies Allergy/AdvReac Type Severity Reaction Status Date / Time ropinirole AdvReac Intermediate CHANGE IN Verified 03/24/20 02:12 MENTAL STATUS Consultations 03/24/20 04:32 ED Decision to Admit Stat Ordered Studies 03/24/20 04:31 US venous doppler LE LT Urgent Diabetes Follow up Diabetes Follow-up Needed for HgbA1c >9% Hospital Course (1) AMS (altered mental status): Patient admitted for altered mental status and increased somnolence Patient doing much better, having met patient before he appears to be mentating at baseline by the time I met him. Cause of his AMS likely multifactorial, patient is on quite a few sedating medications including clonazepam he has been taking for neuropathy, gabapentin, and oxycodone that he started following his TURP. On top of that patient presented with severe hyperglycemia and acute on chronic kidney injury. Likely dehydrated from his hyperglycemia. AMS Resolved likely secondary to far too many sedating medications and his age and dehydration. Stopped oxycodone, patient still on gabapentin and clonazepam for his neuropathy. Will pull jeronimo today and tighten his sugar control. Increased basal insulin and correction factor. Bolused 500 ml NSS for soft pressure and will increase basal fluid rate overnight from 80-120. No history of CHF and patient clinically dry on exam. Rehydrated patient overnight JUDI on CKD Prerenal likely secondary to hyperglycemia Creatinine Improved back to baseline with IV rehydration If PO intake has been a concern, could consider rechecking BMP on outpatient follow up DMII uncontrolled Patient with consistently double digit A1C's Tried to educate patient on DMII and cause effect relationships of eating different foods and insulin effect throughout day [facility] only checks sugars first thing in am, would greatly benefit from post prandial checks to get an idea of how his diet choices affect his sugars Would recommend plugging him in with cancellation clerk BPH Status post TURP Doing well, took catheter out yesterday voiding spontaneously minimal hematuria Multiple chronic health conditions No change to home medication regime Total Time Total Time Spent Total Time Spent (In Minutes): <30 Discharge Plan Discharge Items Patient Disposition: Home - Self-Care Reason For Visit: AMS, FOOT PAIN Discharge Diagnosis: Altered mental status Activity: Resume your previous activity Non-emergency contact: Primary Care Provider Call non-emergency contact if: you have any medication questions Follow-up/Referrals: Cory Nunez, [Primary Care Provider] - 03/30/20 12:50 pm Diet: Carb Consistent or DM2 Addtl Attending Provider Instructions: Mr. Monroy, It was a pleasure to treat you here at [facility] for your altered mental status and dehydration. We believe your brief period of confusion was likely multifactorial secondary to 1) Sedating medications like clonazepam, oxycodone and gabapentin being taken together I would recommend not taking any further oxycodone and taking the clonazepam only when needed. you could try taking it once per day or even half doses. Follow up with Dr. Nunez to discuss this further 2) Hyperglycemia Sugars very high which likely contributed to your dehydration. We need to check sugars more often and keep you lower than 180. Would recommend checking about two hours after meals and seeing which foods are driving your sugars up so high (Usually starchy breads, pastas, potatoes) and trying to limit these foods as well as getting your medication regmimen to suit you better. Follow up with Dr. Nunez. 3) Dehydration from combination of sedation and hyperglycemia We have rehydrated you with IV fluid and your kidneys appear to be doing much better. I would recommend following up with your primary care provider to recheck kidney function in a week or so. In the meantime try to stay hydrated by drinking plenty of water. Pending Studies at Discharge: No Stand-Alone Forms: My [facility] [employer], Smoking Cessation Medications and DC Order Prescriptions: Continued diphenhydramine HCl 25 mg capsule 50 mg PO BID RF: 0 docusate sodium 100 mg capsule 200 mg PO BID RF: 0 metoprolol tartrate 25 mg tablet 25 mg PO BID Qty: 90 RF: 0 multivitamin [Daily Multi-Vitamin] tablet 1 tab PO DAILY RF: 0 pantoprazole 40 mg tablet,delayed release (DR/EC) 40 mg PO QAM Qty: 30 RF: 0 Spiriva with HandiHaler 18 mcg capsule, w/inhalation device 1 cap inhalation DAILY Qty: 90 RF: 0 levothyroxine 88 mcg tablet 88 mcg PO QAM Qty: 90 RF: 0 albuterol sulfate 90 mcg/actuation HFA aerosol inhaler 2 puffs inhalation QID PRN (Reason: shortness of breath or wheezing) RF: 0 Symbicort 160-4.5 mcg/actuation HFA aerosol inhaler 2 puffs inhalation BID RF: 0 bumetanide 2 mg tablet 3 mg PO BID Qty: 180 RF: 0 potassium chloride 20 mEq tablet extended release 10 - 20 meq PO BID RF: 0 gabapentin 100 mg capsule 100 mg PO .COMPLEX Qty: 30 RF: 0 clonazepam 0.5 mg tablet 0.25 mg PO BID RF: 0 Lantus Solostar U-100 Insulin 100 unit/mL (3 mL) Insulin Pen 26 unit SUBCUT BID RF: 0 aspirin [Aspirin Low Dose] 81 mg Tablet,Delayed Release (Dr/Ec) 81 mg PO BID RF: 0 simvastatin 40 mg Tablet 40 mg PO HS RF: 0 Ocuvite Adult 50 Plus 250-5-1 mg Capsule 1 cap PO DAILY RF: 0 Fiber Gummies 2 gram Tablet,Chewable 2 g PO DAILY RF: 0 tamsulosin 0.4 mg capsule 0.4 mg PO HS RF: 0 losartan 25 mg tablet 25 mg PO QAM RF: 0 finasteride 5 mg tablet 5 mg PO HS RF: 0 glipizide 5 mg Tablet 5 mg PO BID RF: 0 Discontinued oxycodone-acetaminophen 5-325 mg tablet 1 tab PO Q8H PRN (Reason: pain) Qty: 10 RF: 0 Discharge Orders: Discharge Order (Routine); Ordered 03/25/20 Ordered By: Tyrel Flor Admission Data Admit Date/Time: 03/24/20 05:56 Attending Provider: Alexandru Harrell Admit Provider: Arlen Gaitan Primary Care Provider: Cory Nunez Other Providers: Arlen Gaitan ; Aj Bazzi Other Interventions: Discharge Summary Assessment (RN) Last Done: 03/25/20 12:08 Supervising Physician Co-Signing Physician Notes I personally examined the patient and verified all aguayo points of history and exam, discussed case, and agree with decision making with Dr Flor. still feels OK, feels up to going home vitals noted nad heent nc at mmm breathing unlabored no accessory muscles good effort skin no pallor AMS - likely polypharmacy, hyperglycemia/dehydration, JUDI related - fluids, control sugars, stopped narcotics, supportive care --> improved - stable for home. as above. Resident Activity Tracking Resident Involvement: Resident Care Provided Care Provided: Adult Hospital Medicine
--- NOTE | 2020-03-25 19:25 | Billing Data ---
Date of Service March 25, 2020 Coding Level of Care Code 33333 OBS Care - Discharge
== END 2020-03-25 14:03 | disposition home or self-care (01) ==
LOC: 3N 01:21 → ED 01:21 → SUATTDRO 05:56 → 3N 07:41

== ENCOUNTER 2020-12-16 13:38 | Inpatient (IN) ==
[2020-12-16] MEDS ORDERED: SODIUM CHLORIDE 0.9% 1000ML 500 ML IV ONE (16:11)
[2020-12-16] MEDS ORDERED: ACETAMINOPHEN 500 MG TAB PO STA (16:11)
[2020-12-16 16:45] LABS: Basophils # (auto) 0.02 K/uL (0-0.2); Basophils % (auto) 0.1 %; Eosinophils # (auto) 0.01 K/uL (0-0.5); Eosinophils % (auto) 0.1 %; Hematocrit (blood only) 37.4 % (42-52); Hemoglobin 12.7 g/dL (14.0-18.0); Immature Granulocytes # (auto) 0.09 K/uL (0.00-0.02); Immature Granulocytes % (auto) 0.5 %; Lymphocytes # (auto) 1.72 K/uL (1.2-3.4); Lymphocytes % (auto) 8.9 %; Mean Corpuscular Hemoglobin 31.1 pg (25-34); Mean Corpuscular Volume 91.4 fL (80-100); Mean Platelet Volume 9.7 fL (7.4-10.4); Monocytes # (auto) 1.11 K/uL (0.11-0.59); Monocytes % (auto) 5.7 %; Neutrophils # (auto) 16.45 K/uL (1.4-6.5); Neutrophils % (auto) 84.7 %; Platelet Count 145 K/uL (130-400); RDW Coefficient of Variation 13.6 % (11.5-14.5); RDW Standard Deviation 45.2 fL (36.4-46.3); Red Blood Count 4.09 M/uL (4.7-6.1)
[2020-12-16 17:00] LABS: INR 1.1 (0.9-1.1); Partial Thromboplastin Ratio 0.9; Partial Thromboplastin Time 24.7 Seconds (21.0-31.0); Prothrombin Time 10.8 Seconds (9.0-12.0)
[2020-12-16 17:09] LABS: Albumin Level 3.6 gm/dl (3.4-5.0); Calcium 8.8 mg/dl (8.5-10.1); Creatinine Clr Calc Pharmacy 30.7 ml/min; Est GFR (African American) 34.7 ml/min; Est GFR (Non-African American) 29.9 ml/min; Magnesium 2.1 mg/dl (1.8-2.4); Potassium 3.9 mmol/L (3.5-5.1)
[2020-12-16 17:13] LABS: Albumin Globulin Ratio 0.9 (0.9-2); Bilirubin,Total 0.8 mg/dl (0.2-1); Globulin 4.1 gm/dl (2.5-4.0); Total Protein 7.7 gm/dl (6.4-8.2); Troponin I 0.016 ng/ml (0-0.045)
[2020-12-16 17:27] LABS: Procalcitonin 0.74 ng/ml (0-0.5)
[2020-12-16] MEDS ORDERED: PIPERACILL/TAZOBAC CONSULT ACTIVE PRN ×2 (17:28→21:53)
[2020-12-16] MEDS ORDERED: DAPTOmycin 475 MG in SYRINGE 0 ML IV ONE (17:28)
[2020-12-16] MEDS ORDERED: PIPERACILLIN/TAZOBACTAM 4.5 GM/120 ML BAG IV ONE (17:28)
[2020-12-16 17:33] LABS: Lyme Ab IgG w/WB Rflx Negative (Negative); Lyme Ab IgM w/WB Rflx Negative (Negative)
--- NOTE | 2020-12-16 17:33 | XRay Report ---
XR chest 1V portable CLINICAL HISTORY: SEPSIS COMPARISON STUDY: Chest radiograph February 03, 2020. FINDINGS: There are median sternotomy wires. Note is made of mild cardiomegaly. There is no pneumotho rax or pleural effusion. No consolidation is identified. There is mild interstitial thickening. IMPRESSION: 1. Mild cardiomegaly. 2. Subtle interstitial thickening. This favors pulmonary vascular congestion. An infectious process c ould appear similar but is considered less likely. Radiographic follow-up is recommended. ACT 112: Negative or not required by law. Electronically signed by: Colin Cannon M.D. 12/16/2020 5:31 PM
[2020-12-16 17:40] LABS: Polychromasia 1+
[2020-12-16 18:06] LABS: Appearance Urine Clear (Clear); Bacteria Urine Automated Negative (Negative); Bilirubin Urine Negative (Negative); Blood Urine Negative (Negative); Color Urine Yellow; Epithelial Cell Urine Auto 20-30 /lpf (0-5); Glucose Urine UA Negative (Negative); Ketones Urine Negative (Negative); Leukocyte Esterase Urine Trace (Negative); Nitrite Urine Negative (Negative); Protein Urine Negative (Negative); RBC Urine Automated 0-4 /hpf (0-4); Urobilinogen Urine Negative (Negative); pH Urine 5.5 (4.5-7.5)
--- NOTE | 2020-12-16 18:08 | History & Physical Report ---
Date of Service December 16, 2020 Assessment & Plan (1) COPD (chronic obstructive pulmonary disease): Plan: Aj is an 85-year-old gentleman with a history of coronary artery disease status post CABG x3, hypertension, hyperlipidemia, insulin-dependent type 2 diabetes, CKD, GERD, COPD, and paroxysmal atrial fibrillation who presents to [facility] for evaluation of illness of unknown etiology - found to have mild diabetic foot ulcers on exam Generalized Illness Patient presenting with multiple days of profound fatigue and rigors, found to have leukocytosis with left shift and elevated procalcitonin on arrival Afebrile, hemodynamically stable. Does not meet criteria for SIRS. DDX - possible mild diabetic foot infection vs. cellulitis (R>L), initial concern for UTI seems less likely based on urine obtained here but possible, pulmonary source considered with history and COPD Await blood and urine cultures Continue treatment with broad-spectrum antibiotics including daptomycin and ZosTylenol as needed for fever and discomfort CBC in the morning Diabetic foot ulcer - mild Right and left great toes demonstrating evidence of small, dry ulcerations, potentially with small, developing abscess on the right side Continue broad-spectrum antibiotics as above, including pseudomonal coverage Consult podiatry for aid in any need for procedural intervention We will obtain x-rays of both feet, can consider CT scans of the soft tissue if needed; MRI contraindicated due to previous metal fragments right foot COPD Stable, not requiring supplemental oxygen at present We will continue home inhalers Duo nebs will be added to be used every 4 hours as needed Acute kidney injury -Atop a pre-existing chronic kidney disease, baseline creatinine appears to be around 1.5-1.8 -Suspect prerenal in setting of active illness -Status post 500 mL bolus in the ED - will give another at 500cc/hr -Hold home Bumex, losartan -Avoid nephrotoxic agents -Promote PO intake -BMP in a.m. T2DM * Patient with history of labile blood sugars * Continue Lantus 26U b.i.d. * ISS, BSG goal 100-140 CAD * s/p CABG x 3, follows with cartiology * Continue ASA, metoprolol * Hold simvastatin with ongoing daptomycin therapy * Hold losartan H/O CHF * Euvolemic on exam - pulmonary exam clear, no JVD, asymmetric LE edema on L > R * Hold Bumex for now Chronic Medical Conditions - HTN: Monitor BP, will hold losartan, continue metoprolol - Hypothyroidism: Continue levothyroxine Code: Full code PPX: Heparin 5000 q12 Dispo: MS/Tele Diet: CC/HH (2) Hypothyroidism: (3) Hypertension: (4) Edema of left lower extremity: (5) AMS (altered mental status): (6) Dyslipidemia: (7) Hypertension, essential: (8) Paroxysmal atrial fibrillation: (9) Hered-yw-acktrxk kidney injury: (10) H/O heart surgery: (11) CAD (coronary artery disease): (12) Vitamin D deficiency: (13) GERD (gastroesophageal reflux disease): (14) CHF (congestive heart failure): (15) Diabetes: History of Present Illness Primary Care Provider: Cory NunezDO Rocha is an 85-year-old gentleman with a history of coronary artery disease status post CABG x3, hypertension, hyperlipidemia, insulin-dependent type 2 diabetes, CKD, GERD, COPD, and paroxysmal atrial fibrillation who presents to [facility] for evaluation of rigors. History is primarily obtained from patient's . She reports that approximately 2 weeks ago, patient was having somewhat increased shortness of breath with a constant wheeze; went to PCP and received approximately 5 days of prednisone. After this, she reported that he felt much better. Fast forward to the Monday, she noted that he had very intense rigors and difficulty sleeping. The following day, noted that he ate breakfast, still had rigors, and complained that it was cold despite being 85 degrees. Thereafter he slept for nearly 8 hours, and woke up at night. On Monday, the fatigue got worse. She notes that he lost his bowels in bed. Today, reach out to PCPs office who recommended going to the emergency room given duration of symptoms, severity of fatigue, presence of rigors, and possibility of infection. He denies any pain. Says that his breathing is not its best, but does not exactly feel short of breath either. notes that a couple weeks ago, had "huge blisters" on the top of his toes. This past week, apparently he had popped them and tried putting bandages on them, but they have gotten more red. He does have significant neuropathy, and denies pain. Further, she does note th at he has been seen by [facility] vascular surgery in the past for evaluation of peripheral arterial disease, but no intervention was sought. At present, he endorses fatigue, denies chest pain, palpitations, nausea, vomiting, difficulties urinating/dysuria, difficulties with bowel movements other than the aforementioned. He actually reports "feeling great." In the ER, patient was found to be hemodynamically stable and afebrile. Blood pressure on admission was 109/64, heart rate between 50 to 60s. Patient was found to have leukocytosis of 20 with left shift. Pro-[place] elevated to 0.74. Lactate normal. Troponin normal. ECG without any acute conduction or repolarization abnormalities. Chest x-ray demonstrating very mild pulmonary vascular congestion.Given concern for possible infection, was initiated on Zosyn and daptomycin. Was given a bolus of fluids. Allergies Allergy/AdvReac Type Severity Reaction Status Date / Time ropinirole AdvReac Intermediate CHANGE IN Verified 12/07/20 14:06 MENTAL STATUS Home Medications Medication Instructions Recorded Confirmed Type albuterol sulfate 90 mcg/actuation 2 puffs INHALATION QID PRN gm 01/10/19 12/16/20 History aerosol inhaler budesonide-formoterol HFA 160 2 puffs INHALATION BID gm 01/10/19 12/16/20 History mcg-4.5 mcg/actuation aerosol inhaler (Symbicort) bumetanide 2 mg tablet 3 mg PO BID #180 tab 01/10/19 12/07/20 History docusate sodium 100 mg capsule 200 mg PO BID cap 01/10/19 12/07/20 History levothyroxine 88 mcg tablet 88 mcg PO QAM #90 tab 01/10/19 12/16/20 History metoprolol tartrate 25 mg tablet 25 mg PO BID #90 tab 01/10/19 12/16/20 History multivitamin (Daily Multi-Vitamin) 1 tab PO DAILY 01/10/19 12/16/20 History potassium chloride 20 mEq 20 meq PO TID tab 01/10/19 12/16/20 History tablet,extended release tiotropium bromide 18 mcg capsule 1 cap INHALATION DAILY #90 puffs 01/10/19 12/07/20 History with inhalation device (Spiriva with HandiHaler) insulin glargine 100 unit/mL (3 26 unit SUBCUT BID 01/20/19 12/07/20 History mL) subcutaneous pen (Lantus Solostar U-100 Insulin) aspirin 81 mg tablet,delayed 81 mg PO BID 04/23/19 12/16/20 History release (Aspirin Low Dose) finasteride 5 mg tablet 5 mg PO HS 04/23/19 12/16/20 History inulin 2 gram chewable tablet 2 g PO DAILY 04/23/19 12/07/20 History (Fiber Gummies) losartan 25 mg tablet 25 mg PO QAM 04/23/19 12/16/20 History simvastatin 40 mg tablet 40 mg PO HS 04/23/19 12/07/20 History tamsulosin 0.4 mg capsule 0.4 mg PO HS 04/23/19 12/07/20 History vit C,E,zinc,copper-szdmt9b 250 1 cap PO DAILY 04/23/19 12/07/20 History mg-lutein 5 mg-zeaxanthin 1 mg capsule (Ocuvite Adult 50 Plus) gabapentin 100 mg capsule 100 mg PO QAM #30 cap 02/21/20 12/16/20 History clonazepam 0.5 mg tablet 0.25 mg PO BID 03/16/20 12/07/20 History amlodipine 10 mg tablet 10 mg PO DAILY #90 tab 11/11/20 12/16/20 Rx prednisone 20 mg tablet 20 mg PO DAILY #5 tab 12/07/20 12/07/20 Rx bumetanide 1 mg tablet 3 mg PO BID 12/16/20 12/16/20 History clonazepam 0.5 mg tablet 0.5 mg PO QPM 12/16/20 12/16/20 History diphenhydramine HCl 25 mg tablet 25 mg PO BID PRN 12/16/20 12/16/20 History gabapentin 100 mg capsule 300 mg PO HS 12/16/20 12/16/20 History glipizide 10 mg tablet 10 mg PO BID 12/16/20 12/16/20 History pantoprazole 20 mg tablet,delayed 20 mg PO DAILY 12/16/20 12/16/20 History release Past Med/Surg History Medical History Anxiety Aortic stenosis Asthma Atrial fibrillation Blindness of left eye BPH (benign prostatic hyperplasia) CAD (coronary artery disease) CHF (congestive heart failure) Chronic kidney disease Chronic obstructive pulmonary disease Diabetes GERD (gastroesophageal reflux disease) Hiatal hernia Hyperlipidemia Hypertension Hypothyroidism Macular degeneration Myocardial infarct Peripheral neuropathy Rupture of left distal biceps tendon Secondary hyperparathyroidism (of renal origin) Surgical History Fusion of spine History of appendectomy History of cardiac cath History of cataract surgery History of coronary artery bypass graft History of revision of total replacement of right knee joint History of tonsillectomy History of tooth extraction History of total left knee replacement History of total right knee replacement Hx of colonoscopy Previous back surgery (08/26/12) S/P cholecystectomy Family History Brother Heart disease Diabetes Sister Cancer Mother Diabetes Father Diabetes Other Hypertension Kidney disease Social History Smoking Status: Never smoker Tobacco Type: Cigarettes Second Hand Exposure: No; Hx Alcohol Use: No Hx Substance Use: No Preferred Language: [place] Communication Ability: Effective Visual Impairment: Partially Limited Sheriff Officer Required: No Beliefs That Will Affect Care: None marital status: Current Living Situation: Spouse current occupational status: retired Feels Safe at Home: Yes Assistive Devices: Glasses and Walker Review of Systems Review of Systems: Constitutional: Denies fever, malaise Eyes: Denies double vision, vision change, eye pain ENT: Denies ear pain, sore throat, sinus pain Cardiovascular: Denies Chest pain, chest pressure, palpitations, extremity swelling Respiratory: Endorses mild shortness of breath, cough, sputum production, difficulty breathing Gastrointestinal: Denies abdominal pain, nausea, vomiting, constipation, diarrhea Genitourinary: Denies urinary symptoms including dysuria Musculoskeletal: Denies weakness, muscle aches/pain, joint aches/pain Integumentary:Denies rash, lesions, bruising Neurological: Denies headache, numbness, tingling, focal weakness Physical Exam Physical Exam: General: Tired appearing 85-year-old gentleman who is lying back in his hospital bed, relaxed upon my arrival. He awakens easily. Converses freely and is oriented throughout her discussion. No acute distress. HEENT: NCAT. Eyes - Sclera are white, anicteric, and without injection. PERRL. EOMs display full ROM bilaterally. Mouth - MMM with no tonsillar edema or exudates. Nose - nasal turbinates are uninflamed and without discharge. Cardiac: Normal rate and regular rhythm; S1 and S2 present with no murmurs, rubs, or gallops. No JVD. Pulmonary: Good respiratory effort with symmetric expansion of the chest. No use of accessory muscles. Lungs were clear to auscultation bilaterally with no crackles or wheezes. Abdominal: Normoactive bowel sounds. Abdomen was soft, nondistended, and non- tender to palpation. No suprapubic or epigastric discomfort. Extremities: Examination of the lower extremities does reveal 2+ pitting edema on the left lower extremity. Dermatologic examination of the toes does reveal a superficial ulcer at the medial aspect of the right and left great toes. On the right great toe, there is surrounding edematous changes with underlying puru lence. Dry. Mild erythema. Unable to palpate dorsalis pedis or posterior tibial pulses. Results & Data Results & Data ([facility]) Vital Signs (Past 12 Hours) Vital Signs Temp Pulse Resp BP Pulse Ox 12/16/20 16:08 96 12/16/20 13:50 37.1 C 64 18 109/64 96 Supervising Physician Co-Signing Physician Notes Patient seen and examined, discussed with resident. Patient presented with 3 days of rigors, concerned about subjective fever. Initial question was possible urinary tract infection per ER physician. Patient's at bedside did note that the patient had been popping blisters on his feet, patient does not have much pain but does have a history of peripheral vascular disease. On exam, patient has ulcerations on both feet, question of minimal erythema on a large ulceration with eschar on the medial right great toe. Nothing else on exam, lungs sound clear. Plan today is to treat for possible diabetic foot ulceration. Will give broad-spectrum antibiotics with Zosyn and daptomycin. Culture blood and wounds. I will ask podiatry to evaluate for need for possible debridement. X-ray of the feet, consider CT scan. MRI contraindicated as patient was found to have some metal fragments in his feet. Patient cannot tell me what these were or where they came from. 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 transplanted heart: [place] heart Qualified Code(s): I25.10 - Atherosclerotic heart disease of [place] coronary artery without angina pectoris (3) CHF (congestive heart failure) Heart failure chronicity: unspecified Heart failure type: unspecified Qualified Code(s): I50.9 - Heart failure, unspecified (4) Hypothyroidism Hypothyroidism type: unspecified Qualified Code(s): E03.9 - Hypothyroidism, unspecified (5) AMS (altered mental status) Altered mental status type: unspecified Qualified Code(s): R41.82 - Altered mental status, unspecified (6) COPD (chronic obstructive pulmonary disease) COPD type: unspecified COPD Qualified Code(s): J44.9 - Chronic obstructive pulmonary disease, unspecified (7) GERD (gastroesophageal reflux disease) Esophagitis presence: esophagitis presence not specified Qualified Code(s): K21.9 - Gastro-esophageal reflux disease without esophagitis (8) Hxvlg-yo-yygpdom kidney injury Acute renal failure type: unspecified Chronic kidney disease stage: unspecified stage Qualified Code(s): N17.9 - Acute kidney failure, unspecified; N18.9 - Chronic kidney disease, unspecified (9) Hypertension Hypertension type: essential hypertension Qualified Code(s): I10 - Essential (primary) hypertension
[2020-12-16] MEDS ORDERED: DEXTROSE 50% 50 ML SYRINGE IV PRN (19:38)
[2020-12-16] MEDS ORDERED: GLUCOSE 10 TABS/TUBE PO PRN (19:38)
[2020-12-16] MEDS ORDERED: GLUCAGON FOR INJ 1 MG VIAL SQ PRN (19:38)
[2020-12-16] MEDS ORDERED: GLUCOSE 40% GEL 15 GM TUBE PO PRN (19:38)
--- NOTE | 2020-12-16 20:45 | Ultrasound Report ---
LEFT LOWER EXTREMITY VENOUS DOPPLER CLINICAL HISTORY: Left leg pain and swelling. COMPARISON STUDY: Left lower extremity venous Doppler ultrasound March 24, 2020. TECHNIQUE: Sonography of the deep venous system of the left lower extremity was performed. Compressi on and augmentation were evaluated. FINDINGS: The left common femoral, superficial femoral and popliteal veins were compressible. Augmen tation was normal. Flow was shown within the deep calf vessels. IMPRESSION: No evidence of deep venous thrombus within the left lower extremity. ACT 112: Negative or not required by law. Electronically signed by: Colin Cannon M.D. 12/16/2020 8:43 PM
--- NOTE | 2020-12-16 20:54 | Ultrasound Report ---
BILATERAL LOWER EXTREMITY ARTERIAL DOPPLER ULTRASOUND CLINICAL HISTORY: Leg pain. Evaluate for peripheral vascular disease. COMPARISON STUDY: No previous studies for comparison. TECHNIQUE: Grayscale, color and flexed Doppler sonography of the arterial systems of both lower extre mities was performed. Ankle-brachial indices could not be obtained due to pain and swelling. FINDINGS: There is moderate atherosclerotic plaque within each lower extremity. There is triphasic fl ow within the right common femoral artery as well as triphasic flow within the right superficial femo ral and popliteal arteries. No elevated velocities were identified within these vessels. There is bip hasic flow within the proximal right posterior tibial artery. There is monophasic flow within the dis wyatt right posterior tibial artery. There is biphasic flow within the right peroneal artery. There is biphasic flow within the right anterior tibial artery and monophasic flow within the right dorsalis p jessica. No elevated velocities are identified within the right lower extremity. There is biphasic flow within the left common femoral, superficial femoral and popliteal arteries. Th ere is monophasic flow within the proximal left posterior tibial artery. Distal left posterior tibial artery is likely occluded. There is an elevated velocity of 522 cm/s within the left anterior tibial artery which is consistent with a stenosis. There is biphasic flow within the proximal left peroneal artery. The distal left peroneal artery is likely occluded. There is monophasic flow within the left dorsalis pedis. IMPRESSION: 1. Moderate atherosclerotic plaque within the bilateral lower extremities. 2. Suspected occlusion of the distal left posterior tibial artery and peroneal arteries. 3. Hemodynamically significant stenosis within the left anterior tibial artery. 4. No evidence for a stenosis within the right lower extremity. 5. Monophasic flow within the bilateral dorsalis pedis vessels. ACT 112: Negative or not required by law. Electronically signed by: Colin Cannon M.D. 12/16/2020 8:53 PM
[2020-12-16] MEDS ORDERED: INSULIN GLARGINE SOLOSTAR 100 UNITS/ML 3 ML PEN SC SCH (21:00)
[2020-12-16] MEDS ORDERED: POLYETHYLENE (MIRALAX) 17 GM PACK PO PRN (21:53)
[2020-12-16] MEDS ORDERED: ALBUT/IPRATROP 3MG/0.5MG NEB 3 ML VIAL NEB PRN (21:53)
[2020-12-16] MEDS ORDERED: ALBUTEROL HFA 8 GM INHALER INH PRN (21:53)
[2020-12-16] MEDS ORDERED: ACETAMINOPHEN 325 MG TAB PO PRN (21:53)
[2020-12-16] MEDS ORDERED: glipiZIDE 5 MG TAB PO SCH (21:53)
[2020-12-16] MEDS ORDERED: diphenhydrAMINE Capsule 25 MG CAP PO PRN (22:16)
--- NOTE | 2020-12-16 22:22 | Emergency Department Note ---
Impression & Plan SIRS (systemic inflammatory response syndrome), Edema of left lower extremity, Leukocytosis ED Provider Note NAME: BRIAN NEWMAN AGE: 85 SEX: M : 1935 ARRIVES VIA: Walk-In INFORMANT: Patient, ED PROVIDER(S): Je Al MD CHIEF COMPLAINT: Chills HPI: This is an 85-year-old male who was seen in the emergency department last February for hyperglycemia and acute kidney injury. The patient was sent in by his primary care physician over concerns over the past 3 days that the patient has been having severe chills. The patient reports he cannot get warm and he has been violently shaking. The patient's reports that the patient has a history of atrial fibrillation as well as UTIs. The patient has not been taking anything for the chills. He reports nothing appears to make the chills any better or worse. He denies any other symptoms. ROS: See above HPI for pertinent positives & negatives. A total of 10 systems reviewed and were otherwise negative. PAST MEDICAL HISTORY: See Below PAST SURGICAL HISTORY: See Below FAMILY HISTORY: See Below SOCIAL HISTORY: See Below HOME MEDICATIONS: See Below ALLERGIES: See Below VITALS: See Below PHYSICAL EXAMINATION: VITAL SIGNS - Vital signs and nursing notes were reviewed. GENERAL - 85-year-old male appearing stated age who is in no acute distress. Communicates well with provider and answers questions appropriately. SKIN - Without rashes. HEAD - NC/AT. EYES - PERRL with EOMI bilaterally. Sclera anicteric. Palpebral conjunctiva pink and moist with no injection noted. EARS - No deformities of external structures noted on gross examination bilaterally. NOSE - Midline and without cyanosis. No epistaxis or purulent drainage noted. Septum midline without deviation or septal hematoma noted. MOUTH/OROPHARYNX - Without perioral cyanosis. Buccal mucosa pink and moist and without leukoplakia. Tongue midline with equal elevation of palate bilaterally. No tonsillar hypertrophy, erythema, or exudates noted. NECK - Neck with FROM. Supple to palpation. No nuchal rigidity. LUNGS - Chest wall symmetric without accessory muscle use, intercostals retractions, or central cyanosis. Normal vesicular breath sounds CTA B/L. No wheezes, rales, or rhonchi appreciated. CARDIAC - RRR with S1/S2. No murmur, rubs, or gallops appreciated. ABDOMEN - Abdominal contour BS normoactive all four quadrants. No tenderness, palpable masses, hepatosplenomegaly, or ascites noted. EXTREMITIES - No clubbing or peripheral cyanosis. No pretibial edema present. +3/5 radial, posterior tibial, and dorsalis pedis pulses palpated throughout. +5/5 strength noted in UE/LE bilaterally. NEUROLOGIC - Cranial nerves II through XII grossly intact. Sensory intact to light touch throughout. Patellar reflexes +2/4. PSYCH - A&Ox3 and cooperates fully with examiner. Pt is very pleasant and interacts well with examiner. MEDICAL DECISION MAKING: Patient was seen and evaluated as above in room C4. Review was performed of nu rsing notes and vital signs. I did review pertinent previous visits and patient history. After obtaining a thorough history and physical examination the above work up was performed. This is a 89-year-old male who presents emergency department complaining of chills. The patient does have a large elevation his white blood cell count at 19,000 however I do not find any source of infection. His blood pressure was found to be low. He was given a normal saline bolus here and started on broad-spectrum antibiotics including Zosyn as well as daptomycin Lyme and Anaplasma titers were taken. While in the department, I personally reevaluated the patient several times and each time the patient was found to be resting comfortably. The patient was educated upon management, educated upon todays findings/results, educated upon importance of follow up from today's visit, educated upon symptoms in which to return, had questions answered prior to discharge, verbalized understanding, and was discharged home in good condition. An order was placed for continuous cardiac monitoring. The monitor shows a rate of 55 with Sinus bradycardia rhythm. The patient was evaluated during a period of high volume and high acuity during the global COVID-19 pandemic, and that diagnosis was suspected/considered upon their initial presentation. Their evaluation, treatment and testing was consistent with current guidelines for patients who present with complaints or symptoms that may be related to COVID-19. Patient was seen while provider was wearing PPE. Triage Nursing notes reviewed. Prior medical records reviewed Vital Signs: reviewed and remarkable for hypotension Differential diagnosis: Sepsis, UTI, pneumonia, metabolic, electrolyte abnormalities, cardiac sources, intracerebral event, toxicologic, neurologic, as well as other pathologies. ER treatment provided: See below Diagnostics interpreted by me: ECG: EKG shows sinus rhythm with first-degree AV block left axis deviation right bundle branch block QTC is 457 ventricular rate of [address] elevation or depression EKG is compared to 03/24/2020 no significant changes found Laboratory studies: As stated above and show below. Imaging studies: 1 view of the chest was interpreted by me shows no evidence of pneumonia con gestion or pneumothorax Consultation(s): Internal Medicine Critical Care: I have personally spent greater than 30 minutes of critical care time in the direct management of this patient. This includes bedside care, interpretation of diagnostic studies, and testing, discussion with consultants, patient, and family members, and other required patient management activities. This 30 minutes is in excess of all separately billable procedures. Past Med/Surg History Medical History Anxiety Aortic stenosis Asthma Atrial fibrillation Blindness of left eye BPH (benign prostatic hyperplasia) CAD (coronary artery disease) CHF (congestive heart failure) Chronic kidney disease Chronic obstructive pulmonary disease Diabetes GERD (gastroesophageal reflux disease) Hiatal hernia Hyperlipidemia Hypertension Hypothyroidism Macular degeneration Myocardial infarct Peripheral neuropathy Rupture of left distal biceps tendon Secondary hyperparathyroidism (of renal origin) Surgical History Fusion of spine History of appendectomy History of cardiac cath History of cataract surgery History of coronary artery bypass graft History of revision of total replacement of right knee joint History of tonsillectomy History of tooth extraction History of total left knee replacement History of total right knee replacement Hx of colonoscopy Previous back surgery (08/26/12) S/P cholecystectomy Family History Brother Heart disease Diabetes Sister Cancer Mother Diabetes Father Diabetes Other Hypertension Kidney disease Social History Smoking Status: Former smoker Tobacco Type: Cigarettes Second Hand Exposure: No; Tobacco Cessation Education Requested by Patient: No Hx Alcohol Use: No Hx Substance Use: No Preferred Language: Faroese Communication Ability: Effective Visual Impairment: Partially Limited 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 Car Required: No Beliefs That Will Affect Care: None marital status: Current Living Situation: Spouse current occupational status: retired Other Information That Helps Us Care for You: No Feels Safe at Home: Yes Safety Concerns: Feels Safe At This Time Assistive Devices: Denture - Upper and Glasses Allergies Allergies Allergy/AdvReac Type Severity Reaction Status Date / Time ropinirole AdvReac Intermediate CHANGE IN Verified 12/07/20 14:06 MENTAL STATUS Home Meds Home Medications Medication Instructions Recorded Confirmed albuterol sulfate 90 mcg/actuation 2 puffs INHALATION QID PRN gm 01/10/19 12/16/20 aerosol inhaler budesonide-formoterol HFA 160 2 puffs INHALATION BID gm 01/10/19 12/16/20 mcg-4.5 mcg/actuation aerosol inhaler (Symbicort) bumetanide 2 mg tablet 3 mg PO BID #180 tab 01/10/19 12/07/20 docusate sodium 100 mg capsule 200 mg PO BID cap 01/10/19 12/07/20 levothyroxine 88 mcg tablet 88 mcg PO QAM #90 tab 01/10/19 12/16/20 metoprolol tartrate 25 mg tablet 25 mg PO BID #90 tab 01/10/19 12/16/20 multivitamin (Daily Multi-Vitamin) 1 tab PO DAILY 01/10/19 12/16/20 potassium chloride 20 mEq 20 meq PO TID tab 01/10/19 12/16/20 tablet,extended release tiotropium bromide 18 mcg capsule 1 cap INHALATION DAILY #90 puffs 01/10/19 12/07/20 with inhalation device (Spiriva with HandiHaler) insulin glargine 100 unit/mL (3 26 unit SUBCUT BID 01/20/19 12/07/20 mL) subcutaneous pen (Lantus Solostar U-100 Insulin) aspirin 81 mg tablet,delayed 81 mg PO BID 04/23/19 12/16/20 release (Aspirin Low Dose) finasteride 5 mg tablet 5 mg PO HS 04/23/19 12/16/20 inulin 2 gram chewable tablet 2 g PO DAILY 04/23/19 12/07/20 (Fiber Gummies) losartan 25 mg tablet 25 mg PO QAM 04/23/19 12/16/20 simvastatin 40 mg tablet 40 mg PO HS 04/23/19 12/07/20 tamsulosin 0.4 mg capsule 0.4 mg PO HS 04/23/19 12/07/20 vit C,E,zinc,copper-owxsm2f 250 1 cap PO DAILY 04/23/19 12/07/20 mg-lutein 5 mg-zeaxanthin 1 mg capsule (Ocuvite Adult 50 Plus) gabapentin 100 mg capsule 100 mg PO QAM #30 cap 02/21/20 12/16/20 clonazepam 0.5 mg tablet 0.25 mg PO BID 03/16/20 12/07/20 bumetanide 1 mg tablet 3 mg PO BID 12/16/20 12/16/20 clonazepam 0.5 mg tablet 0.5 mg PO QPM 12/16/20 12/16/20 diphenhydramine HCl 25 mg tablet 25 mg PO BID PRN 12/16/20 12/16/20 gabapentin 100 mg capsule 300 mg PO HS 12/16/20 12/16/20 glipizide 10 mg tablet 10 mg PO BID 12/16/20 12/16/20 pantoprazole 20 mg tablet,delayed 20 mg PO DAILY 12/16/20 12/16/20 release Previous Rx's Medication Instructions Recorded amlodipine 10 mg tablet 10 mg PO DAILY #90 tab 11/11/20 prednisone 20 mg tablet 20 mg PO DAILY #5 tab 12/07/20 Results & Data (ED) Vital Signs Vital Signs - 24 hr 12/16/20 13:50 12/16/20 16:08 12/16/20 16:33 Temperature 37.1 C Temperature Source Oral Pulse Rate 64 66 Pulse Rate from SpO2 Sensor 67 Respiratory Rate 18 20 Blood Pressure 109/64 135/53 L Blood Pressure Mean 79 80 Pulse Oximetry 96 96 97 Oxygen Delivery Method Room Air Room Air Sepsis Recent Fever Within 48 Hours No Sepsis New/Unexplained Change in Mental Status N/A Sepsis Action Taken by Nursing No Action Required 12/16/20 17:00 12/16/20 17:30 12/16/20 18:00 Temperature Temperature Source Pulse Rate 66 66 61 Pulse Rate from SpO2 Sensor 66 66 61 Respiratory Rate 25 H 24 24 Blood Pressure 128/50 L 125/49 L 129/46 L Blood Pressure Mean 76 74 73 Pulse Oximetry 96 96 98 Oxygen Delivery Method Sepsis Recent Fever Within 48 Hours Sepsis New/Unexplained Change in Mental Status Sepsis Action Taken by Nursing 12/16/20 18:30 Temperature Temperature Source Pulse Rate 60 Pulse Rate from SpO2 Sensor 66 Respiratory Rate 25 H Blood Pressure 133/53 L Blood Pressure Mean 79 Pulse Oximetry 89 L Oxygen Delivery Method Sepsis Recent Fever Within 48 Hours Sepsis New/Unexplained Change in Mental Status Sepsis Action Taken by Prison Medications Current Medication List: was personally reviewed by me Laboratory Data Attestation: I reviewed the patient's lab results. Result diagrams: 12/16/20 16:27 12/16/20 16:27 Lab Results 12/16/20 12/16/20 12/16/20 Range/Units 16:25 16:25 16:27 WBC 19.40 H (4.8-10.8) K/uL RBC 4.09 L (4.7-6.1) M/uL Hgb 12.7 L (14.0-18.0) g/dL Hct 37.4 L (42-52) % MCV 91.4 (80-100) fL MCH 31.1 (25-34) pg MCHC 34.0 (32-36) g/dL RDW Std Deviation 45.2 (36.4-46.3) fL RDW Coeff of Adrian 13.6 (11.5-14.5) % Plt Count 145 (130-400) K/uL MPV 9.7 (7.4-10.4) fL Immature Gran % (Auto) 0.5 % Neut % (Auto) 84.7 % Lymph % (Auto) 8.9 % [place] % (Auto) 5.7 % Eos % (Auto) 0.1 % Baso % (Auto) 0.1 % Neut # (Auto) 16.45 H (1.4-6.5) K/uL Lymph # (Auto) 1.72 (1.2-3.4) K/uL [place] # (Auto) 1.11 H (0.11-0.59) K/uL Eos # (Auto) 0.01 (0-0.5) K/uL Baso # (Auto) 0.02 (0-0.2) K/uL Immature Gran # (Auto) 0.09 H (0.00-0.02) K/uL Polychromasia 1+ ESR (0-20) mm/hr PT (9.0-12.0) Seconds INR (0.9-1.1) APTT (21.0-31.0) Seconds PTT Ratio Sodium (136-145) mmol/L Potassium (3.5-5.1) mmol/L Chloride (98-107) mmol/L Carbon Dioxide (21-32) mmol/L Anion Gap (3-11) BUN (7-18) mg/dl Creatinine (0.6-1.4) mg/dl Est Cr Clr Drug Dosing ml/min Est GFR ( Amer) ml/min Est GFR (Non-Af Amer) ml/min BUN/Creatinine Ratio (10-20) Glucose (70-99) mg/dl Lactate (0.4-2.0) mmol/L Calcium (8.5-10.1) mg/dl Magnesium (1.8-2.4) mg/dl Total Bilirubin (0.2-1) mg/dl AST (15-37) U/L ALT (12-78) U/L Alkaline Phosphatase (45-117) U/L Troponin I (0-0.045) ng/ml C-Reactive Protein (0-0.29) mg/dl NT-Pro-B Natriuret Pep (0-1800) pg/ml Total Protein (6.4-8.2) gm/dl Albumin (3.4-5.0) gm/dl Globulin (2.5-4.0) gm/dl Albumin/Globulin Ratio (0.9-2) Procalcitonin (0-0.5) ng/ml Urine Color Urine Appearance (Clear) Urine pH (4.5-7.5) Ur Specific [place] (1.000-1.030) Urine Protein (Negative) Urine Glucose (UA) (Negative) Urine Ketones (Negative) Urine Blood (Negative) Urine Nitrite (Negative) Urine Bilirubin (Negative) Urine Urobilinogen (Negative) Ur Leukocyte Esterase (Negative) Urine WBC (Auto) (0-5) /hpf Urine RBC (Auto) (0-4) /hpf U Hyaline Cast (Auto) (0-5) /lpf U Epithel Cells (Auto) (0-5) /lpf Urine Bacteria (Auto) (Negative) Anaplasma Smear See Comment Lyme Disease IgG Ab (Negative) Lyme Disease IgM Ab (Negative) COVID-19 Eval Order Covid19 at [facility] SARS-CoV-2 (PCR) NEGATIVE (Negative) 12/16/20 12/16/20 12/16/20 Range/Units 16:27 16:27 16:27 WBC (4.8-10.8) K/uL RBC (4.7-6.1) M/uL Hgb (14.0-18.0) g/dL Hct (42-52) % MCV (80-100) fL MCH (25-34) pg MCHC (32-36) g/dL RDW Std Deviation (36.4-46.3) fL RDW Coeff of Adrian (11.5-14.5) % Plt Count (130-400) K/uL MPV (7.4-10.4) fL Immature Gran % (Auto) % Neut % (Auto) % Lymph % (Auto) % [place] % (Auto) % Eos % (Auto) % Baso % (Auto) % Neut # (Auto) (1.4-6.5) K/uL Lymph # (Auto) (1.2-3.4) K/uL [place] # (Auto) (0.11-0.59) K/uL Eos # (Auto) (0-0.5) K/uL Baso # (Auto) (0-0.2) K/uL Immature Gran # (Auto) (0.00-0.02) K/uL Polychromasia ESR (0-20) mm/hr PT 10.8 (9.0-12.0) Seconds INR 1.1 (0.9-1.1) APTT 24.7 (21.0-31.0) Seconds PTT Ratio 0.9 Sodium 136 (136-145) mmol/L Potassium 3.9 (3.5-5.1) mmol/L Chloride 102 (98-107) mmol/L Carbon Dioxide 27 (21-32) mmol/L Anion Gap 7.0 (3-11) BUN 42 H (7-18) mg/dl Creatinine 1.98 H (0.6-1.4) mg/dl Est Cr Clr Drug Dosing 30.7 ml/min Est GFR ( Amer) 34.7 ml/min Est GFR (Non-Af Amer) 29.9 ml/min BUN/Creatinine Ratio 21.0 H (10-20) Glucose 143 H (70-99) mg/dl Lactate 2.0 (0.4-2.0) mmol/L Calcium 8.8 (8.5-10.1) mg/dl Magnesium 2.1 (1.8-2.4) mg/dl Total Bilirubin 0.8 (0.2-1) mg/dl AST 21 (15-37) U/L ALT 22 (12-78) U/L Alkaline Phosphatase 73 (45-117) U/L Troponin I 0.016 (0-0.045) ng/ml C-Reactive Protein (0-0.29) mg/dl NT-Pro-B Natriuret Pep (0-1800) pg/ml Total Protein 7.7 (6.4-8.2) gm/dl Albumin 3.6 (3.4-5.0) gm/dl Globulin 4.1 H (2.5-4.0) gm/dl Albumin/Globulin Ratio 0.9 (0.9-2) Procalcitonin (0-0.5) ng/ml Urine Color Urine Appearance (Clear) Urine pH (4.5-7.5) Ur Specific [place] (1.000-1.030) Urine Protein (Negative) Urine Glucose (UA) (Negative) Urine Ketones (Negative) Urine Blood (Negative) Urine Nitrite (Negative) Urine Bilirubin (Negative) Urine Urobilinogen (Negative) Ur Leukocyte Esterase (Negative) Urine WBC (Auto) (0-5) /hpf Urine RBC (Auto) (0-4) /hpf U Hyaline Cast (Auto) (0-5) /lpf U Epithel Cells (Auto) (0-5) /lpf Urine Bacteria (Auto) (Negative) Anaplasma Smear Lyme Disease IgG Ab (Negative) Lyme Disease IgM Ab (Negative) COVID-19 Eval Order SARS-CoV-2 (PCR) (Negative) 12/16/20 12/16/20 12/16/20 Range/Units 16:27 16:27 16:27 WBC (4.8-10.8) K/uL RBC (4.7-6.1) M/uL Hgb (14.0-18.0) g/dL Hct (42-52) % MCV (80-100) fL MCH (25-34) pg MCHC (32-36) g/dL RDW Std Deviation (36.4-46.3) fL RDW Coeff of Adrian (11.5-14.5) % Plt Count (130-400) K/uL MPV (7.4-10.4) fL Immature Gran % (Auto) % Neut % (Auto) % Lymph % (Auto) % [place] % (Auto) % Eos % (Auto) % Baso % (Auto) % Neut # (Auto) (1.4-6.5) K/uL Lymph # (Auto) (1.2-3.4) K/uL [place] # (Auto) (0.11-0.59) K/uL Eos # (Auto) (0-0.5) K/uL Baso # (Auto) (0-0.2) K/uL Immature Gran # (Auto) (0.00-0.02) K/uL Polychromasia ESR 40 H (0-20) mm/hr PT (9.0-12.0) Seconds INR (0.9-1.1) APTT (21.0-31.0) Seconds PTT Ratio Sodium (136-145) mmol/L Potassium (3.5-5.1) mmol/L Chloride (98-107) mmol/L Carbon Dioxide (21-32) mmol/L Anion Gap (3-11) BUN (7-18) mg/dl Creatinine (0.6-1.4) mg/dl Est Cr Clr Drug Dosing ml/min Est GFR ( Amer) ml/min Est GFR (Non-Af Amer) ml/min BUN/Creatinine Ratio (10-20) Glucose (70-99) mg/dl Lactate (0.4-2.0) mmol/L Calcium (8.5-10.1) mg/dl Magnesium (1.8-2.4) mg/dl Total Bilirubin (0.2-1) mg/dl AST (15-37) U/L ALT (12-78) U/L Alkaline Phosphatase (45-117) U/L Troponin I (0-0.045) ng/ml C-Reactive Protein (0-0.29) mg/dl NT-Pro-B Natriuret Pep 1657 (0-1800) pg/ml Total Protein (6.4-8.2) gm/dl Albumin (3.4-5.0) gm/dl Globulin (2.5-4.0) gm/dl Albumin/Globulin Ratio (0.9-2) Procalcitonin 0.74 H (0-0.5) ng/ml Urine Color Urine Appearance (Clear) Urine pH (4.5-7.5) Ur Specific [place] (1.000-1.030) Urine Protein (Negative) Urine Glucose (UA) (Negative) Urine Ketones (Negative) Urine Blood (Negative) Urine Nitrite (Negative) Urine Bilirubin (Negative) Urine Urobilinogen (Negative) Ur Leukocyte Esterase (Negative) Urine WBC (Auto) (0-5) /hpf Urine RBC (Auto) (0-4) /hpf U Hyaline Cast (Auto) (0-5) /lpf U Epithel Cells (Auto) (0-5) /lpf Urine Bacteria (Auto) (Negative) Anaplasma Smear Lyme Disease IgG Ab Negative (Negative) Lyme Disease IgM Ab Negative (Negative) COVID-19 Eval Order SARS-CoV-2 (PCR) (Negative) 12/16/20 12/16/20 Range/Units 16:27 17:50 WBC (4.8-10.8) K/uL RBC (4.7-6.1) M/uL Hgb (14.0-18.0) g/dL Hct (42-52) % MCV (80-100) fL MCH (25-34) pg MCHC (32-36) g/dL RDW Std Deviation (36.4-46.3) fL RDW Coeff of Adrian (11.5-14.5) % Plt Count (130-400) K/uL MPV (7.4-10.4) fL Immature Gran % (Auto) % Neut % (Auto) % Lymph % (Auto) % [place] % (Auto) % Eos % (Auto) % Baso % (Auto) % Neut # (Auto) (1.4-6.5) K/uL Lymph # (Auto) (1.2-3.4) K/uL [place] # (Auto) (0.11-0.59) K/uL Eos # (Auto) (0-0.5) K/uL Baso # (Auto) (0-0.2) K/uL Immature Gran # (Auto) (0.00-0.02) K/uL Polychromasia ESR (0-20) mm/hr PT (9.0-12.0) Seconds INR (0.9-1.1) APTT (21.0-31.0) Seconds PTT Ratio Sodium (136-145) mmol/L Potassium (3.5-5.1) mmol/L Chloride (98-107) mmol/L Carbon Dioxide (21-32) mmol/L Anion Gap (3-11) BUN (7-18) mg/dl Creatinine (0.6-1.4) mg/dl Est Cr Clr Drug Dosing ml/min Est GFR ( Amer) ml/min Est GFR (Non-Af Amer) ml/min BUN/Creatinine Ratio (10-20) Glucose (70-99) mg/dl Lactate (0.4-2.0) mmol/L Calcium (8.5-10.1) mg/dl Magnesium (1.8-2.4) mg/dl Total Bilirubin (0.2-1) mg/dl AST (15-37) U/L ALT (12-78) U/L Alkaline Phosphatase (45-117) U/L Troponin I (0-0.045) ng/ml C-Reactive Protein 3.96 H (0-0.29) mg/dl NT-Pro-B Natriuret Pep (0-1800) pg/ml Total Protein (6.4-8.2) gm/dl Albumin (3.4-5.0) gm/dl Globulin (2.5-4.0) gm/dl Albumin/Globulin Ratio (0.9-2) Procalcitonin (0-0.5) ng/ml Urine Color Yellow Urine Appearance Clear (Clear) Urine pH 5.5 (4.5-7.5) Ur Specific [place] 1.010 (1.000-1.030) Urine Protein Negative (Negative) Urine Glucose (UA) Negative (Negative) Urine Ketones Negative (Negative) Urine Blood Negative (Negative) Urine Nitrite Negative (Negative) Urine Bilirubin Negative (Negative) Urine Urobilinogen Negative (Negative) Ur Leukocyte Esterase Trace H (Negative) Urine WBC (Auto) 1-5 (0-5) /hpf Urine RBC (Auto) 0-4 (0-4) /hpf U Hyaline Cast (Auto) 1-5 (0-5) /lpf U Epithel Cells (Auto) 20-30 H (0-5) /lpf Urine Bacteria (Auto) Negative (Negative) Anaplasma Smear Lyme Disease IgG Ab (Negative) Lyme Disease IgM Ab (Negative) COVID-19 Eval Order SARS-CoV-2 (PCR) (Negative) Administered Medications Discontinued Medications Acetaminophen (Acetaminophen 500 Mg Tab) 1,000 mg PO NOW STA Stop: 12/16/20 16:12 Last Admin: 12/16/20 17:43 Dose: 1,000 mg Documented by: [id number] Sodium Chloride (Nss 1000ml) 500 mls @ 999 mls/hr IV .Q31M ONE Stop: 12/16/20 16:41 Last Infusion: 12/16/20 18:16 Dose: 0 mls/hr Documented by: [id number] Admin: 12/16/20 17:43 Dose: 999 mls/hr Documented by: [id number] Piperacillin Sod/Tazobactam Sod (Zosyn) 4.5 gm in 120 mls @ 240 mls/hr IV NOW ONE Stop: 12/16/20 17:57 Last Infusion: 12/16/20 18:16 Dose: 0 mls/hr Documented by: [id number] Admin: 12/16/20 17:43 Dose: 240 mls/hr Documented by: [id number] Daptomycin 475 mg/ Syringe 9.5 mls @ 4.75 mls/min IV NOW ONE; Protocol Stop: 12/16/20 17:29 Last Admin: 12/16/20 18:22 Dose: 4.75 mls/min Documented by: [id number] Imaging Data Radiologist's Impression: Chest X-Ray 12/16/20 16:08 XR chest 1V portable CLINICAL HISTORY: SEPSIS COMPARISON STUDY: Chest radiograph February 03, 2020. FINDINGS: There are median sternotomy wires. Note is made of mild cardiomegaly. There is no pneumothorax or pleural effusion. No consolidation is identified. There is mild interstitial thickening. IMPRESSION: 1. Mild cardiomegaly. 2. Subtle interstitial thickening. This favors pulmonary vascular congestion. An infectious process could appear similar but is considered less likely. Radiographic follow-up is recommended. ACT 112: Negative or not required by law. Electronically signed by: Colin Cannon M.D. 12/16/2020 5:31 PM Discharge Plan Visit Data Chief Complaint: Illness Stated Complaint: CHILLS, FATIGUE, WHEEZING, REFERRED BY DOCTOR ED Provider: Je Al Discharge Problem: SIRS (systemic inflammatory response syndrome), Edema of left lower extremity, Leukocytosis Patient Disposition: Admitted As Inpatient Discharge Instructions Interventions: ED Discharge Assessment Last Done: 12/16/20 21:32 Discharge Problem: Leukocytosis Qualifiers: Leukocytosis type: unspecified Qualified Code(s): D72.829 - Elevated white blood cell count, unspecified
[2020-12-16] MEDS: TAMSULOSIN HCL 0.4 MG CAP PO SCH (23:38)
[2020-12-16] MEDS: clonazePAM 0.5 MG TAB PO SCH (23:38)
[2020-12-16] MEDS: METOPROLOL TARTRATE 25 MG TAB PO SCH (23:39)
[2020-12-16] MEDS: ASPIRIN 81 MG ECTAB PO SCH (23:40)
[2020-12-16] MEDS: DOCUSATE SODIUM 100 MG CAP PO SCH (23:40)
[2020-12-16] MEDS: FINASTERIDE 5 MG TAB PO SCH (23:40)
[2020-12-16] MEDS: HEPARIN SOD 5,000 UNIT/0.5 ML VIAL SQ SCH (23:41)
[2020-12-16] MEDS: GABAPENTIN 300 MG CAP PO SCH (23:41)
[2020-12-16] MEDS: INSULIN ASPART 100 UNITS/ML 3 ML PEN SC SCH (23:43)
[2020-12-16] MEDS: SODIUM CHLORIDE 0.9% 500 ML IV SCH (23:50)
[2020-12-17] MEDS: PIPERACILLIN/TAZOBACTAM 3.375 GM in DEXTROSE 5% 100 ML IV SCH ×3 (00:54→17:21)
[2020-12-17] MEDS: LEVOTHYROXINE SODIUM 88 MCG TABLET PO SCH (06:25)
[2020-12-17] MEDS: CARBOHYDRATES FOR HYPOGLYCEMIA PO PRN ×2 (06:25→06:47)
--- NOTE | 2020-12-17 06:39 | XRay Report ---
XR foot RT min 3V routine CLINICAL HISTORY: Great toe ulceration. History of diabetes. Evaluate for osteomyelitis. COMPARISON: None. DISCUSSION: There are vascular calcifications present. There are no acute fractures. Degenerative deborah nges are present most pronounced at the level of the first metatarsal phalangeal joint. There is a sm all plantar calcaneal spur. There are no cortical destructive lesions to indicate acute osteomyelitis . IMPRESSION: 1. No acute fractures 2. No conventional radiographic evidence of acute osteomyelitis ACT 112: Negative or not required by law. Electronically signed by: Julio Garcia M.D. 12/17/2020 6:38 AM
--- NOTE | 2020-12-17 06:41 | XRay Report ---
XR foot LT min 3V routine CLINICAL HISTORY: Diabetes. Great toe ulceration. Evaluate for osteomyelitis. COMPARISON: February 2020 DISCUSSION: There are vascular calcifications present. There are no acute fractures. Metallic foreign bodies are again visualized within adjacent to the distal phalanx of the great toe. There are persis tent arthritic changes at the level of the first metatarsal phalangeal joint with erosive change. Art hritic changes are also present the level of the tarsometatarsal joints. There is no conventional rad iographic evidence of acute osteomyelitis. IMPRESSION: 1. No acute fractures 2. Arthritic change 3. Metallic foreign bodies within adjacent to the distal phalanx the great toe 4. No conventional radiographic evidence of acute osteomyelitis ACT 112: Negative or not required by law. Electronically signed by: Julio Garcia M.D. 12/17/2020 6:40 AM
[2020-12-17 07:49] LABS: Basophils # (auto) 0.01 K/uL (0-0.2); Basophils % (auto) 0.1 %; Eosinophils # (auto) 0.03 K/uL (0-0.5); Eosinophils % (auto) 0.3 %; Hematocrit (blood only) 32.3 % (42-52); Hemoglobin 10.9 g/dL (14.0-18.0); Immature Granulocytes # (auto) 0.05 K/uL (0.00-0.02); Immature Granulocytes % (auto) 0.4 %; Lymphocytes # (auto) 1.08 K/uL (1.2-3.4); Lymphocytes % (auto) 9.3 %; Mean Corpuscular Hemoglobin 30.8 pg (25-34); Mean Corpuscular Hgb Conc 33.7 g/dL (32-36); Mean Corpuscular Volume 91.2 fL (80-100); Mean Platelet Volume 9.4 fL (7.4-10.4); Monocytes # (auto) 0.75 K/uL (0.11-0.59); Monocytes % (auto) 6.5 %; Neutrophils # (auto) 9.65 K/uL (1.4-6.5); Neutrophils % (auto) 83.4 %; Platelet Count 115 K/uL (130-400); RDW Coefficient of Variation 13.6 % (11.5-14.5); RDW Standard Deviation 45.8 fL (36.4-46.3); Red Blood Count 3.54 M/uL (4.7-6.1); White Blood Count 11.57 K/uL (4.8-10.8)
[2020-12-17 08:10] LABS: Albumin Level 2.6 gm/dl (3.4-5.0); C Reactive Protein 5.66 mg/dl (0-0.29); Calcium 7.9 mg/dl (8.5-10.1); Creatinine Clr Calc Pharmacy 31.2 ml/min; Est GFR (African American) 35.5 ml/min; Est GFR (Non-African American) 30.7 ml/min; Potassium 3.5 mmol/L (3.5-5.1)
[2020-12-17 08:14] LABS: Albumin Globulin Ratio 0.8 (0.9-2); Bilirubin,Total 0.4 mg/dl (0.2-1); Globulin 3.2 gm/dl (2.5-4.0); Total Protein 5.8 gm/dl (6.4-8.2)
[2020-12-17] MEDS: INSULIN ASPART 100 UNITS/ML 3 ML PEN SC SCH ×4 (08:15→22:11)
[2020-12-17] MEDS: PANTOprazole 40 MG TAB PO SCH (08:16)
[2020-12-17] MEDS: MULTIVITAMIN TAB PO SCH (08:16)
[2020-12-17] MEDS: amLODIPine BESYLATE 5 MG TAB PO SCH (08:16)
[2020-12-17] MEDS: GABAPENTIN 100 MG CAP PO SCH (08:16)
[2020-12-17] MEDS: METOPROLOL TARTRATE 25 MG TAB PO SCH ×2 (08:16→19:59)
[2020-12-17] MEDS: FLUTICASONE/VILANTEROL 100/25MCG 14 PUFFS/INHALER INH SCH (08:17)
[2020-12-17] MEDS: UMECLIDINIUM BROMIDE 62.5MCG/BLISTER 7 PUFFS/INHALER INH SCH (08:18)
[2020-12-17] MEDS: HEPARIN SOD 5,000 UNIT/0.5 ML VIAL SQ SCH ×2 (08:19→19:59)
[2020-12-17] MEDS: DOCUSATE SODIUM 100 MG CAP PO SCH ×2 (08:20→19:59)
[2020-12-17] MEDS: ASPIRIN 81 MG ECTAB PO SCH (08:20)
--- NOTE | 2020-12-17 08:45 | Electrocardiogram Report ---
Test Reason : Blood Pressure : / mmHG Vent. Rate : 070 BPM Atrial Rate : 070 BPM P-R Int : 224 ms QRS Dur : 158 ms QT Int : 424 ms P-R-T Axes : 077 -59 034 degrees QTc Int : 457 ms Sinus rhythm with 1st degree A-V block Left anterior fascicular block Right bundle branch block Abnormal ECG When compared with ECG of 24-MAR-2020 02:11, No significant change was found Confirmed by Raul Brady ([id number]) on 12/17/2020 8:44:50 AM Referred By: Cory Nunez Confirmed By:Raul Brady
--- NOTE | 2020-12-17 08:52 | Podiatry Consultation ---
Date of Consultation December 17, 2020 Assessment & Plan (1) COPD (chronic obstructive pulmonary disease): Generalized Illness Diabetic foot ulcer - mild COPD Acute kidney injury T2DM CAD H/O CHF Chronic Medical Conditions COPD type: unspecified COPD Qualified Code(s): J44.9 - Chronic obstructive pulmonary disease, unspecified (2) Hypothyroidism: Hypothyroidism type: unspecified Qualified Code(s): E03.9 - Hypothyroidism, unspecified (3) Hypertension: Hypertension type: essential hypertension Qualified Code(s): I10 - Essential (primary) hypertension (4) Edema of left lower extremity: (5) AMS (altered mental status): Altered mental status type: unspecified Qualified Code(s): R41.82 - Altered mental status, unspecified (6) Dyslipidemia: (7) Hypertension, essential: (8) Paroxysmal atrial fibrillation: (9) Utucp-en-lkorncq kidney injury: Acute renal failure type: unspecified Chronic kidney disease stage: unspecified stage Qualified Code(s): N17.9 - Acute kidney failure, unspecified; N18.9 - Chronic kidney disease, unspecified (10) H/O heart surgery: (11) CAD (coronary artery disease): Coronary Disease-Associated Artery/Lesion type: [place] artery [place] vs. transplanted heart: [place] heart Associated angina: without angina Qualified Code(s): I25.10 - Atherosclerotic heart disease of [place] coronary artery without angina pectoris (12) Vitamin D deficiency: (13) GERD (gastroesophageal reflux disease): Esophagitis presence: esophagitis presence not specified Qualified Code(s): K21.9 - Gastro-esophageal reflux disease without esophagitis (14) CHF (congestive heart failure): Heart failure type: unspecified Heart failure chronicity: unspecified Qualified Code(s): I50.9 - Heart failure, unspecified (15) Diabetes: Diabetes mellitus type: type 2 Diabetes mellitus terminal clerk insulin use: with terminal clerk use Diabetes mellitus complication status: with hyperglycemia Qualified Code(s): E11.65 - Type 2 diabetes mellitus with hyperglycemia; Z79.4 - USP (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 History of Present Illness Reason for Consultation: right and left foot diabetic ulcers Requesting Physician: Dr. Rios Attending Physician: Dano Palmer DO History of Present Illness Patient is a very pleasant 85 year old male with IDDM, CAD, CABG x 3 HTN, kidney disease admitted due to elevated WBC, patient was seen at bedside today for wounds related to diabetes - wounds are stable and without acute erythema or swelling, of noted capillary refill seem delayed and I was unable to palpate a pulse, I have concern that these ulcers are arterial in nature and may be the result of patient either trying to perform self care of his toenails or wearing tight shoes or a combination of both issues - today I recommended to nurse present in the room during the time of this visit to apply aquacell with allyven foam over both ulcers, ulcers can be treated with topical dressings - additionally I recommended Arterial studies to asses his circulation which I feel may be contributory - lastly patient should be d/c with surgical shoes for both feet to help offload the pressure off of the ulcers - I will set up f/u with patient in my office next week - WBC was noted to be improved today as well, I do not feel these ulcers were contributory to patient's increased WBC Allergies Allergy/AdvReac Type Severity Reaction Status Date / Time ropinirole AdvReac Intermediate CHANGE IN Verified 12/07/20 14:06 MENTAL STATUS Home Medications Medication Instructions Recorded Confirmed Type albuterol sulfate 90 mcg/actuation 2 puffs INHALATION QID PRN gm 01/10/19 12/16/20 History aerosol inhaler budesonide-formoterol HFA 160 2 puffs INHALATION BID gm 01/10/19 12/16/20 History mcg-4.5 mcg/actuation aerosol inhaler (Symbicort) bumetanide 2 mg tablet 3 mg PO BID #180 tab 01/10/19 12/07/20 History docusate sodium 100 mg capsule 200 mg PO BID cap 01/10/19 12/07/20 History levothyroxine 88 mcg tablet 88 mcg PO QAM #90 tab 01/10/19 12/16/20 History metoprolol tartrate 25 mg tablet 25 mg PO BID #90 tab 01/10/19 12/16/20 History multivitamin (Daily Multi-Vitamin) 1 tab PO DAILY 01/10/19 12/16/20 History potassium chloride 20 mEq 20 meq PO TID tab 01/10/19 12/16/20 History tablet,extended release tiotropium bromide 18 mcg capsule 1 cap INHALATION DAILY #90 puffs 01/10/19 12/07/20 History with inhalation device (Spiriva with HandiHaler) insulin glargine 100 unit/mL (3 26 unit SUBCUT BID 01/20/19 12/07/20 History mL) subcutaneous pen (Lantus Solostar U-100 Insulin) aspirin 81 mg tablet,delayed 81 mg PO BID 04/23/19 12/16/20 History release (Aspirin Low Dose) finasteride 5 mg tablet 5 mg PO HS 04/23/19 12/16/20 History inulin 2 gram chewable tablet 2 g PO DAILY 04/23/19 12/07/20 History (Fiber Gummies) losartan 25 mg tablet 25 mg PO QAM 04/23/19 12/16/20 History simvastatin 40 mg tablet 40 mg PO HS 04/23/19 12/07/20 History tamsulosin 0.4 mg capsule 0.4 mg PO HS 04/23/19 12/07/20 History vit C,E,zinc,copper-[id number] 250 1 cap PO DAILY 04/23/19 12/07/20 History mg-lutein 5 mg-zeaxanthin 1 mg capsule (Ocuvite Adult 50 Plus) gabapentin 100 mg capsule 100 mg PO QAM #30 cap 02/21/20 12/16/20 History clonazepam 0.5 mg tablet 0.25 mg PO BID 03/16/20 12/07/20 History amlodipine 10 mg tablet 10 mg PO DAILY #90 tab 11/11/20 12/16/20 Rx prednisone 20 mg tablet 20 mg PO DAILY #5 tab 12/07/20 12/07/20 Rx bumetanide 1 mg tablet 3 mg PO BID 12/16/20 12/16/20 History clonazepam 0.5 mg tablet 0.5 mg PO QPM 12/16/20 12/16/20 History diphenhydramine HCl 25 mg tablet 25 mg PO BID PRN 12/16/20 12/16/20 History gabapentin 100 mg capsule 300 mg PO HS 12/16/20 12/16/20 History glipizide 10 mg tablet 10 mg PO BID 12/16/20 12/16/20 History pantoprazole 20 mg tablet,delayed 20 mg PO DAILY 12/16/20 12/16/20 History release Patient History Medical History Anxiety Aortic stenosis Mild per 03/06/19 stress ECHO Asthma Uses rescue inhaler a couple times per week Atrial fibrillation Follows with Dr. Gr Blindness of left eye BPH (benign prostatic hyperplasia) CAD (coronary artery disease) Angioplasty ~1993, CABG x 3 2013 (GALINDO to LAD, SVG to PDA, SVG to OM) CHF (congestive heart failure) Chronic kidney disease Follows with Dr. Dixon Chronic obstructive pulmonary disease Diabetes Type 2 IDDM GERD (gastroesophageal reflux disease) Hiatal hernia Hyperlipidemia Hypertension Hypothyroidism Macular degeneration Myocardial infarct ~1993 Peripheral neuropathy Rupture of left distal biceps tendon hx - no surgery Secondary hyperparathyroidism (of renal origin) Surgical History Fusion of spine lumbar History of appendectomy History of cardiac cath with angioplasty ~1993 ([facility]) & 2013 ([facility]) History of cataract surgery bilateral History of coronary artery bypass graft x3 vessels ([facility] 2013) with epicardial RFA of pulmonary veins and left atrial appendage ligation History of revision of total replacement of right knee joint History of tonsillectomy History of tooth extraction History of total left knee replacement History of total right knee replacement Hx of colonoscopy Previous back surgery (08/26/12) S/P cholecystectomy Family History Brother Heart disease Diabetes Sister Cancer Mother Diabetes Father Diabetes Other Hypertension Kidney disease Social History Smoking Status: Former smoker Tobacco Type: Cigarettes Second Hand Exposure: No; Tobacco Cessation Education Requested by Patient: No Hx Alcohol Use: No Hx Substance Use: No Preferred Language: Citizen Of [place] Communication Ability: Effective Visual Impairment: Partially Limited Slate Splitter Required: No Beliefs That Will Affect Care: None marital status: Current Living Situation: Spouse current occupational status: retired Other Information That Helps Us Care for You: No Feels Safe at Home: Yes Safety Concerns: Feels Safe At This Time Assistive Devices: Denture - Upper and Glasses Physical Exam 2 Skin: bilateral stage 1 ulceration with no surrounding erythema, no acute drainage, wound base with granulation tissue present without malodor, cap refill delayed with non palpable pulses and +2 pitting edema noted to bilateral dorsal feet, concern for vascular issues is present in the setting of IDDM Results & Data ([facility]) Vital Signs (Past 12 Hours) Vital Signs Temp Pulse Pulse Resp BP BP Pulse Ox 12/17/20 07:44 36.8 C 66 20 149/57 H 94 12/17/20 07:30 77 12/17/20 03:30 36.8 C 70 18 128/65 98 12/16/20 23:53 37.0 C 75 18 131/36 L 96 12/16/20 22:10 36.8 C 61 18 104/54 L 97 12/16/20 21:32 55 L 24 108/44 L 97
[2020-12-17] MEDS ORDERED: amLODIPine BESYLATE 5 MG TAB PO SCH (09:00)
[2020-12-17] MEDS: INSULIN GLARGINE SOLOSTAR 100 UNITS/ML 3 ML PEN SC SCH ×2 (09:12→22:15)
[2020-12-17] MEDS: CLOPIDOGREL BISULFATE 75 MG TAB PO SCH (09:16)
--- NOTE | 2020-12-17 15:00 | Hospitalist Progress Note ---
Date of Service December 17, 2020 Assessment & Plan (1) Bacteremia: Plan: one set of cultures with gram positive cocci, chains final cultures pending continue Daptomycin IV for today no fever, WBC improved (2) Foot ulcer: Plan: both big toes with superficial ulcers/wounds no evidence of osteomyelitis on x-ray will follow up with podiatry continue Daptomycin (3) Peripheral vascular disease: Plan: arterial dopplers, bilateral plaque, worse in left leg feet are warm, no signs of acute occlusion change to aspirin 81mg daily and add Plavix 75mg daily recommend he follow up with cardiology, Dr. Rodriguez, for evaluation of PAD, intervention? (4) SIRS (systemic inflammatory response syndrome): Plan: due to bacteremia, suspected source is foot/toe wounds? no other signs of infection no fever, WBC coming down, RR stable, HR stable (5) Aguuy-eq-kfyrhhr kidney injury: Plan: Cr is 1.94, making urine, electrolytes stable baseline is a little lower at 1.6 range repeat BMP tomorrow (6) Hypothyroidism: (7) COPD (chronic obstructive pulmonary disease): Plan: lungs stable, breathing well, clear (8) Hypertension: (9) Edema of left lower extremity: (10) AMS (altered mental status): Plan: resolved (11) Dyslipidemia: (12) Hypertension, essential: (13) Paroxysmal atrial fibrillation: (14) H/O heart surgery: (15) CAD (coronary artery disease): (16) Vitamin D deficiency: (17) GERD (gastroesophageal reflux disease): (18) CHF (congestive heart failure): (19) Diabetes: Admission and Anticipated Discharge Date Admission Date: December 16, 2020 Subjective patient is feeling a lot better this morning, no fever or chills, he has an appetite again, more strength appreciate podiatry consult, no intervention needed, wounds superficial, follow up in the clinic reviewed x-rays, no osteomyelitis seen arterial doppler show severe stenosis on left in the anterior tibial artery, occlusion of peroneal trunk, foot is warm blood cultures, one set with gram positive cocci in chains discussed with patient, should keep here until final blood cultures back Review of Systems Review of Systems: All systems reviewed & are unremarkable except as noted in Subjective Constitutional: no fever and no weakness Respiratory: no cough and no dyspnea Cardiovascular: no chest pain and no edema Neurologic: + numbness (feet bilaterally, chronic issue) Physical Exam Constitutional: WD/WN, vitals as above Respiratory: normal respiratory effort, lungs clear to auscultation Cardiovascular: RRR, no murmur, no edema Vessels: no JVD and + abnormal peripheral pulses (diminished pulses left foot but palpable) Gastrointestinal (Abdomen): normal bowel sounds, soft, nontender, no hepatosplenomegaly Musculoskeletal: no cyanosis or clubbing, extremities motor strength 5/5 Skin: + wound (wounds on both big toes, superficial) Neurologic: CN's II-XI intact bilaterally, moves all extremities and awake; + abnormal sensation to monofilament (loss of sensation in feet bilaterally) and no focal motor deficits Psychiatric: A+Ox3, euthymic affect Results & Data Results & Data ([facility]) Vital Signs (Past 12 Hours) Vital Signs Temp Pulse Pulse Resp BP Pulse Ox 12/17/20 11:05 37.1 C 63 19 125/53 L 96 12/17/20 07:44 36.8 C 66 20 149/57 H 94 12/17/20 07:30 77 12/17/20 03:30 36.8 C 70 18 128/65 98 Laboratory Results Laboratory Results - last 24 hr 12/16/20 12/16/20 12/16/20 16:25 16:25 16:27 WBC 19.40 H RBC 4.09 L Hgb 12.7 L Hct 37.4 L MCV 91.4 MCH 31.1 MCHC 34.0 RDW Std Deviation 45.2 RDW Coeff of Adrian 13.6 Plt Count 145 MPV 9.7 Immature Gran % (Auto) 0.5 Neut % (Auto) 84.7 Lymph % (Auto) 8.9 [place] % (Auto) 5.7 Eos % (Auto) 0.1 Baso % (Auto) 0.1 Neut # (Auto) 16.45 H Lymph # (Auto) 1.72 [place] # (Auto) 1.11 H Eos # (Auto) 0.01 Baso # (Auto) 0.02 Immature Gran # (Auto) 0.09 H Polychromasia 1+ ESR PT INR APTT PTT Ratio Sodium Potassium Chloride Carbon Dioxide Anion Gap BUN Creatinine Est Cr Clr Drug Dosing Est GFR ( Amer) Est GFR (Non-Af Amer) BUN/Creatinine Ratio Glucose POC Glucose Lactate Calcium Magnesium Total Bilirubin AST ALT Alkaline Phosphatase Troponin I C-Reactive Protein NT-Pro-B Natriuret Pep Total Protein Albumin Globulin Albumin/Globulin Ratio Procalcitonin Urine Color Urine Appearance Urine pH Ur Specific [place] Urine Protein Urine Glucose (UA) Urine Ketones Urine Blood Urine Nitrite Urine Bilirubin Urine Urobilinogen Ur Leukocyte Esterase Urine WBC (Auto) Urine RBC (Auto) U Hyaline Cast (Auto) U Epithel Cells (Auto) Urine Bacteria (Auto) Anaplasma Smear See Comment A. phagocytophilum DNA Lyme Disease IgG Ab Lyme Disease IgM Ab COVID-19 Eval Order Covid19 at [facility] SARS-CoV-2 (PCR) NEGATIVE 12/16/20 12/16/20 12/16/20 16:27 16:27 16:27 WBC RBC Hgb Hct MCV MCH MCHC RDW Std Deviation RDW Coeff of [place] Plt Count MPV Immature Gran % (Auto) Neut % (Auto) Lymph % (Auto) [place] % (Auto) Eos % (Auto) Baso % (Auto) Neut # (Auto) Lymph # (Auto) [place] # (Auto) Eos # (Auto) Baso # (Auto) Immature Gran # (Auto) Polychromasia ESR PT 10.8 INR 1.1 APTT 24.7 PTT Ratio 0.9 Sodium 136 Potassium 3.9 Chloride 102 Carbon Dioxide 27 Anion Gap 7.0 BUN 42 H Creatinine 1.98 H Est Cr Clr Drug Dosing 30.7 Est GFR ( Amer) 34.7 Est GFR (Non-Af Amer) 29.9 BUN/Creatinine Ratio 21.0 H Glucose 143 H POC Glucose Lactate 2.0 Calcium 8.8 Magnesium 2.1 Total Bilirubin 0.8 AST 21 ALT 22 Alkaline Phosphatase 73 Troponin I 0.016 C-Reactive Protein NT-Pro-B Natriuret Pep Total Protein 7.7 Albumin 3.6 Globulin 4.1 H Albumin/Globulin Ratio 0.9 Procalcitonin Urine Color Urine Appearance Urine pH Ur Specific [place] Urine Protein Urine Glucose (UA) Urine Ketones Urine Blood Urine Nitrite Urine Bilirubin Urine Urobilinogen Ur Leukocyte Esterase Urine WBC (Auto) Urine RBC (Auto) U Hyaline Cast (Auto) U Epithel Cells (Auto) Urine Bacteria (Auto) Anaplasma Smear A. phagocytophilum DNA Lyme Disease IgG Ab Lyme Disease IgM Ab COVID-19 Eval Order SARS-CoV-2 (PCR) 12/16/20 12/16/20 12/16/20 16:27 16:27 16:27 WBC RBC Hgb Hct MCV MCH MCHC RDW Std Deviation RDW Coeff of [place] Plt Count MPV Immature Gran % (Auto) Neut % (Auto) Lymph % (Auto) [place] % (Auto) Eos % (Auto) Baso % (Auto) Neut # (Auto) Lymph # (Auto) [place] # (Auto) Eos # (Auto) Baso # (Auto) Immature Gran # (Auto) Polychromasia ESR PT INR APTT PTT Ratio Sodium Potassium Chloride Carbon Dioxide Anion Gap BUN Creatinine Est Cr Clr Drug Dosing Est GFR ( Amer) Est GFR (Non-Af Amer) BUN/Creatinine Ratio Glucose POC Glucose Lactate Calcium Magnesium Total Bilirubin AST ALT Alkaline Phosphatase Troponin I C-Reactive Protein NT-Pro-B Natriuret Pep 1657 Total Protein Albumin Globulin Albumin/Globulin Ratio Procalcitonin 0.74 H Urine Color Urine Appearance Urine pH Ur Specific [place] Urine Protein Urine Glucose (UA) Urine Ketones Urine Blood Urine Nitrite Urine Bilirubin Urine Urobilinogen Ur Leukocyte Esterase Urine WBC (Auto) Urine RBC (Auto) U Hyaline Cast (Auto) U Epithel Cells (Auto) Urine Bacteria (Auto) Anaplasma Smear A. phagocytophilum DNA Pending Lyme Disease IgG Ab Negative Lyme Disease IgM Ab Negative COVID-19 Eval Order SARS-CoV-2 (PCR) 12/16/20 12/16/20 12/16/20 16:27 16:27 17:50 WBC RBC Hgb Hct MCV MCH MCHC RDW Std Deviation RDW Coeff of [place] Plt Count MPV Immature Gran % (Auto) Neut % (Auto) Lymph % (Auto) [place] % (Auto) Eos % (Auto) Baso % (Auto) Neut # (Auto) Lymph # (Auto) [place] # (Auto) Eos # (Auto) Baso # (Auto) Immature Gran # (Auto) Polychromasia ESR 40 H PT INR APTT PTT Ratio Sodium Potassium Chloride Carbon Dioxide Anion Gap BUN Creatinine Est Cr Clr Drug Dosing Est GFR ( Amer) Est GFR (Non-Af Amer) BUN/Creatinine Ratio Glucose POC Glucose Lactate Calcium Magnesium Total Bilirubin AST ALT Alkaline Phosphatase Troponin I C-Reactive Protein 3.96 H NT-Pro-B Natriuret Pep Total Protein Albumin Globulin Albumin/Globulin Ratio Procalcitonin Urine Color Yellow Urine Appearance Clear Urine pH 5.5 Ur Specific [place] 1.010 Urine Protein Negative Urine Glucose (UA) Negative Urine Ketones Negative Urine Blood Negative Urine Nitrite Negative Urine Bilirubin Negative Urine Urobilinogen Negative Ur Leukocyte Esterase Trace H Urine WBC (Auto) 1-5 Urine RBC (Auto) 0-4 U Hyaline Cast (Auto) 1-5 U Epithel Cells (Auto) 20-30 H Urine Bacteria (Auto) Negative Anaplasma Smear A. phagocytophilum DNA Lyme Disease IgG Ab Lyme Disease IgM Ab COVID-19 Eval Order SARS-CoV-2 (PCR) 12/16/20 12/17/20 12/17/20 22:44 06:14 06:36 WBC RBC Hgb Hct MCV MCH MCHC RDW Std Deviation RDW Coeff of [place] Plt Count MPV Immature Gran % (Auto) Neut % (Auto) Lymph % (Auto) [place] % (Auto) Eos % (Auto) Baso % (Auto) Neut # (Auto) Lymph # (Auto) [place] # (Auto) Eos # (Auto) Baso # (Auto) Immature Gran # (Auto) Polychromasia ESR PT INR APTT PTT Ratio Sodium Potassium Chloride Carbon Dioxide Anion Gap BUN Creatinine Est Cr Clr Drug Dosing Est GFR ( Amer) Est GFR (Non-Af Amer) BUN/Creatinine Ratio Glucose POC Glucose 163 H 44 L* 52 L* Lactate Calcium Magnesium Total Bilirubin AST ALT Alkaline Phosphatase Troponin I C-Reactive Protein NT-Pro-B Natriuret Pep Total Protein Albumin Globulin Albumin/Globulin Ratio Procalcitonin Urine Color Urine Appearance Urine pH Ur Specific [place] Urine Protein Urine Glucose (UA) Urine Ketones Urine Blood Urine Nitrite Urine Bilirubin Urine Urobilinogen Ur Leukocyte Esterase Urine WBC (Auto) Urine RBC (Auto) U Hyaline Cast (Auto) U Epithel Cells (Auto) Urine Bacteria (Auto) Anaplasma Smear A. phagocytophilum DNA Lyme Disease IgG Ab Lyme Disease IgM Ab COVID-19 Eval Order SARS-CoV-2 (PCR) 12/17/20 12/17/20 12/17/20 06:45 07:11 07:32 WBC 11.57 H RBC 3.54 L Hgb 10.9 L Hct 32.3 L MCV 91.2 MCH 30.8 MCHC 33.7 RDW Std Deviation 45.8 RDW Coeff of Adrian 13.6 Plt Count 115 L MPV 9.4 Immature Gran % (Auto) 0.4 Neut % (Auto) 83.4 Lymph % (Auto) 9.3 [place] % (Auto) 6.5 Eos % (Auto) 0.3 Baso % (Auto) 0.1 Neut # (Auto) 9.65 H Lymph # (Auto) 1.08 L [place] # (Auto) 0.75 H Eos # (Auto) 0.03 Baso # (Auto) 0.01 Immature Gran # (Auto) 0.05 H Polychromasia ESR PT INR APTT PTT Ratio Sodium Potassium Chloride Carbon Dioxide Anion Gap BUN Creatinine Est Cr Clr Drug Dosing Est GFR ( Amer) Est GFR (Non-Af Amer) BUN/Creatinine Ratio Glucose POC Glucose 62 L* 72 Lactate Calcium Magnesium Total Bilirubin AST ALT Alkaline Phosphatase Troponin I C-Reactive Protein NT-Pro-B Natriuret Pep Total Protein Albumin Globulin Albumin/Globulin Ratio Procalcitonin Urine Color Urine Appearance Urine pH Ur Specific [place] Urine Protein Urine Glucose (UA) Urine Ketones Urine Blood Urine Nitrite Urine Bilirubin Urine Urobilinogen Ur Leukocyte Esterase Urine WBC (Auto) Urine RBC (Auto) U Hyaline Cast (Auto) U Epithel Cells (Auto) Urine Bacteria (Auto) Anaplasma Smear A. phagocytophilum DNA Lyme Disease IgG Ab Lyme Disease IgM Ab COVID-19 Eval Order SARS-CoV-2 (PCR) 12/17/20 12/17/20 12/17/20 07:32 07:32 11:03 WBC RBC Hgb Hct MCV MCH MCHC RDW Std Deviation RDW Coeff of Adrian Plt Count MPV Immature Gran % (Auto) Neut % (Auto) Lymph % (Auto) [place] % (Auto) Eos % (Auto) Baso % (Auto) Neut # (Auto) Lymph # (Auto) [place] # (Auto) Eos # (Auto) Baso # (Auto) Immature Gran # (Auto) Polychromasia ESR 25 H PT INR APTT PTT Ratio Sodium 139 Potassium 3.5 Chloride 110 H Carbon Dioxide 25 Anion Gap 5.0 BUN 41 H Creatinine 1.94 H Est Cr Clr Drug Dosing 31.2 Est GFR ( Amer) 35.5 Est GFR (Non-Af Amer) 30.7 BUN/Creatinine Ratio 21.0 H Glucose 79 POC Glucose 190 H Lactate Calcium 7.9 L Magnesium Total Bilirubin 0.4 AST 27 ALT 21 Alkaline Phosphatase 59 Troponin I C-Reactive Protein 5.66 H NT-Pro-B Natriuret Pep Total Protein 5.8 L D Albumin 2.6 L Globulin 3.2 Albumin/Globulin Ratio 0.8 L Procalcitonin Urine Color Urine Appearance Urine pH Ur Specific [place] Urine Protein Urine Glucose (UA) Urine Ketones Urine Blood Urine Nitrite Urine Bilirubin Urine Urobilinogen Ur Leukocyte Esterase Urine WBC (Auto) Urine RBC (Auto) U Hyaline Cast (Auto) U Epithel Cells (Auto) Urine Bacteria (Auto) Anaplasma Smear A. phagocytophilum DNA Lyme Disease IgG Ab Lyme Disease IgM Ab COVID-19 Eval Order SARS-CoV-2 (PCR) Medications Administered Current Inpatient Medications Acetaminophen (Acetaminophen 325 Mg Tab) 650 mg PO Q4H PRN PRN Reason: Pain or Fever Stop: 01/15/21 21:52 Albuterol (Albuterol Hfa 8 Gm Inhaler) 2 puffs INH QIDR PRN PRN Reason: shortness of breath or wheezin Stop: 01/15/21 21:52 Albuterol (Albut/Ipratrop 3mg/0.5mg Neb 3 Ml Vial) 3 ml NEB Q4R PRN PRN Reason: Shortness Of Breath Or Wheezing Stop: 01/15/21 21:52 Amlodipine Besylate (Amlodipine Besylate 5 Mg Tab) 10 mg PO DAILY VANDANA Stop: 01/16/21 08:59 Last Admin: 12/17/20 08:16 Dose: 10 mg Documented by: Aspirin (Aspirin 81 Mg Ectab) 81 mg PO DAILY VANDANA Stop: 01/17/21 08:59 Clonazepam (Clonazepam 0.5 Mg Tab) 0.5 mg PO QPM VANDANA Stop: 01/15/21 22:29 Last Admin: 12/16/20 23:38 Dose: 0.5 mg Documented by: Clopidogrel Bisulfate (Clopidogrel Bisulfate 75 Mg Tab) 75 mg PO QAM VANDANA Stop: 01/16/21 08:59 Last Admin: 12/17/20 09:16 Dose: 75 mg Documented by: Dextrose (Dextrose 50% 50 Ml Syringe) 25 - 50 ml IV UD PRN; Protocol PRN Reason: Hypoglycemia Protocol Stop: 01/15/21 19:37 Diphenhydramine HCl (Diphenhydramine Capsule 25 Mg Cap) 25 mg PO BID PRN PRN Reason: Allergy Symptoms Stop: 01/15/21 22:15 Docusate Sodium (Docusate Sodium 100 Mg Cap) 200 mg PO BID VANDANA Stop: 01/15/21 22:29 Last Admin: 12/17/20 08:20 Dose: 200 mg Documented by: Finasteride (Finasteride 5 Mg Tab) 5 mg PO HS VANDANA Stop: 01/15/21 22:29 Last Admin: 12/16/20 23:40 Dose: 5 mg Documented by: Fluticasone/Vilanterol (Fluticasone/Vilanterol 100/25mcg 14 Puffs/Inhaler) 1 puffs INH DAILY [facility]; Protocol Stop: 01/16/21 08:59 Last Admin: 12/17/20 08:17 Dose: 1 puffs Documented by: Gabapentin (Gabapentin 100 Mg Cap) 100 mg PO DAILY [facility] Stop: 01/16/21 08:59 Last Admin: 12/17/20 08:16 Dose: 100 mg Documented by: Gabapentin (Gabapentin 300 Mg Cap) 300 mg PO HS [facility] Stop: 01/15/21 22:29 Last Admin: 12/16/20 23:41 Dose: 300 mg Documented by: Glucagon (Glucagon For Inj 1 Mg Vial) 1 mg SQ UD PRN; Protocol PRN Reason: Hypoglycemia Protocol Stop: 01/15/21 19:37 Glucose (Glucose 10 Tabs/Tube) 4 - 8 tabs PO UD PRN; Protocol PRN Reason: Hypoglycemia Protocol Stop: 01/15/21 19:37 Glucose (Glucose 40% Gel 15 Gm Tube) 15 - 30 gm PO UD PRN; Protocol PRN Reason: Hypoglycemia Protocol Stop: 01/15/21 19:37 Heparin Sodium (Porcine) (Heparin Sod 5,000 Unit/0.5 Ml Vial) 5,000 units SQ Q12 [facility]ANDANA Stop: 01/15/21 22:29 Last Admin: 12/17/20 08:19 Dose: 5,000 units Documented by: Piperacillin Sod/Tazobactam (Sod 3.375 gm/ Dextrose) 115 mls @ 28.75 mls/hr IV Q8H [facility]; Protocol Stop: 12/24/20 00:00 Last Infusion: 12/17/20 12:58 Dose: Infused Documented by: Daptomycin 400 mg/ Syringe 8 mls @ 4.75 mls/min IV Q24H [facility]; Protocol Stop: 12/17/20 18:02 Insulin Aspart (Insulin Aspart 100 Units/Ml 3 Ml Pen) 0 units SC ACHS VANDANA Stop: 01/15/21 20:59 Last Admin: 12/17/20 11:54 Dose: 3 units Documented by: Insulin Glargine (Insulin Glargine Solostar 100 Units/Ml 3 Ml Pen) 15 units SC BID VANDANA Stop: 01/16/21 08:59 Last Admin: 12/17/20 09:12 Dose: 15 units Documented by: Levothyroxine Sodium (Levothyroxine Sodium 88 Mcg Tablet) 88 mcg PO DAILYBB VANDANA Stop: 01/16/21 06:29 Last Admin: 12/17/20 06:25 Dose: 88 mcg Documented by: Metoprolol Tartrate (Metoprolol Tartrate 25 Mg Tab) 25 mg PO BID VANDANA Stop: 01/15/21 22:29 Last Admin: 12/17/20 08:16 Dose: 25 mg Documented by: Miscellaneous (Carbohydrates For Hypoglycemia ) 15 - 30 gm PO UD PRN PRN Reason: Hypoglycemia Protocol Stop: 01/15/21 19:37 Last Admin: 12/17/20 06:47 Dose: 15 gm Documented by: Miscellaneous Information (Piperacill/Tazobac Consult Active) 1 ea N/A UD PRN PRN Reason: Consult Stop: 01/15/21 21:52 Miscellaneous Information (Daptomycin Consult Active) 1 ea N/A UD PRN PRN Reason: Consult Stop: 01/15/21 21:52 Multivitamins (Multivitamin Tab) 1 tab PO DAILY VANDANA Stop: 01/16/21 08:59 Last Admin: 12/17/20 08:16 Dose: 1 tab Documented by: Pantoprazole Sodium (Pantoprazole 40 Mg Tab) 40 mg PO DAILY VANDANA Stop: 01/16/21 08:59 Last Admin: 12/17/20 08:16 Dose: 40 mg Documented by: Polyethylene Glycol (Polyethylene (Miralax) 17 Gm Pack) 17 gm PO DAILY PRN PRN Reason: Constipation Stop: 01/15/21 21:52 Tamsulosin HCl (Tamsulosin Hcl 0.4 Mg Cap) 0.4 mg PO HS [facility] Stop: 01/15/21 22:29 Last Admin: 12/16/20 23:38 Dose: 0.4 mg Documented by: Umeclidinium [place] (Umeclidinium [place] 62.5mcg/Blister 7 Puffs/Inhaler) 1 puffs INH DAILY [facility]AN[facility]NA; Protocol Stop: 01/16/21 08:59 Last Admin: 12/17/20 08:18 Dose: 1 puffs Documented by: PG Care Time/CCT Total # of Minutes Spent Total Time Spent with Patient: Total time spent is greater than 50% in coordin ation of care (as documented) at patient's floor/unit and/or counseling patient: Coding Level of Care Code 80341 Subseq Hosp Care Lvl 3 Diagnoses COPD (chronic obstructive pulmonary disease) J44.9 COPD type: unspecified COPD Hypothyroidism E03.9 Hypothyroidism type: unspecified Hypertension I10 Hypertension type: essential hypertension Edema of left lower extremity R60.0 AMS (altered mental status) R41.82 Altered mental status type: unspecified Dyslipidemia E78.5 Hypertension, essential I10 Paroxysmal atrial fibrillation I48.0 [id number] kidney injury N17.9; N18.9 Acute renal failure type: unspecified Chronic kidney disease stage: unspecified stage H/O heart surgery Z98.890 CAD (coronary artery disease) I25.10 Coronary Disease-Associated Artery/Lesion type: [place] artery [place] vs. transplanted heart: [place] heart Associated angina: without angina Vitamin D deficiency E55.9 GERD (gastroesophageal reflux disease) K21.9 Esophagitis presence: esophagitis presence not specified CHF (congestive heart failure) I50.9 Heart failure type: unspecified Heart failure chronicity: unspecified Diabetes E11.65; Z79.4 Diabetes mellitus type: type 2 Diabetes mellitus fdc insulin use: with fdc use Diabetes mellitus complication status: with hyperglycemia SIRS (systemic inflammatory response syndrome) R65.10 Bacteremia R78.81 Peripheral vascular disease I73.9 Foot ulcer L97.509 (1) COPD (chronic obstructive pulmonary disease) COPD type: unspecified COPD Qualified Code(s): J44.9 - Chronic obstructive pulmonary disease, unspecified (2) Hypothyroidism Hypothyroidism type: unspecified Qualified Code(s): E03.9 - Hypothyroidism, unspecified (3) Hypertension Hypertension type: essential hypertension Qualified Code(s): I10 - Essential (primary) hypertension (4) AMS (altered mental status) Altered mental status type: unspecified Qualified Code(s): R41.82 - Altered mental status, unspecified (5) [id number] kidney injury Acute renal failure type: unspecified Chronic kidney disease stage: unspecified stage Qualified Code(s): N17.9 - Acute kidney failure, unspecified; N18.9 - Chronic kidney disease, unspecified (6) CAD (coronary artery disease) Coronary Disease-Associated Artery/Lesion type: [place] artery [place] vs. transplanted heart: [place] heart Associated angina: without angina Qualified Code(s): I25.10 - Atherosclerotic heart disease of [place] coronary artery without angina pectoris (7) GERD (gastroesophageal reflux disease) Esophagitis presence: esophagitis presence not specified Qualified Code(s): K21.9 - Gastro-esophageal reflux disease without esophagitis (8) CHF (congestive heart failure) Heart failure type: unspecified Heart failure chronicity: unspecified Qualified Code(s): I50.9 - Heart failure, unspecified (9) Diabetes Diabetes mellitus type: type 2 Diabetes mellitus fdc insulin use: with fdc use Diabetes mellitus complication status: with hyperglycemia Qualified Code(s): E11.65 - Type 2 diabetes mellitus with hyperglycemia; Z79.4 - [facility] (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
[2020-12-17] MEDS: SODIUM CHLORIDE 0.9% 500 ML IV SCH (17:56)
[2020-12-17] MEDS ORDERED: DAPTOmycin 400 MG in SYRINGE 0 ML IV SCH (18:00)
[2020-12-17] MEDS: GABAPENTIN 300 MG CAP PO SCH (19:59)
[2020-12-17] MEDS: TAMSULOSIN HCL 0.4 MG CAP PO SCH (19:59)
[2020-12-17] MEDS: clonazePAM 0.5 MG TAB PO SCH (19:59)
[2020-12-17] MEDS: FINASTERIDE 5 MG TAB PO SCH (19:59)
[2020-12-18] MEDS: PIPERACILLIN/TAZOBACTAM 3.375 GM in DEXTROSE 5% 100 ML IV SCH ×2 (00:48→08:01)
[2020-12-18] MEDS: LEVOTHYROXINE SODIUM 88 MCG TABLET PO SCH (06:06)
[2020-12-18 06:29] LABS: Basophils # (auto) 0.01 K/uL (0-0.2); Basophils % (auto) 0.1 %; Eosinophils # (auto) 0.21 K/uL (0-0.5); Eosinophils % (auto) 2.7 %; Hematocrit (blood only) 32.1 % (42-52); Hemoglobin 10.6 g/dL (14.0-18.0); Immature Granulocytes # (auto) 0.04 K/uL (0.00-0.02); Immature Granulocytes % (auto) 0.5 %; Lymphocytes # (auto) 1.96 K/uL (1.2-3.4); Lymphocytes % (auto) 25.2 %; Mean Corpuscular Hemoglobin 30.2 pg (25-34); Mean Corpuscular Volume 91.5 fL (80-100); Mean Platelet Volume 9.6 fL (7.4-10.4); Monocytes # (auto) 0.68 K/uL (0.11-0.59); Monocytes % (auto) 8.7 %; Neutrophils # (auto) 4.89 K/uL (1.4-6.5); Neutrophils % (auto) 62.8 %; Platelet Count 126 K/uL (130-400); RDW Coefficient of Variation 13.7 % (11.5-14.5); RDW Standard Deviation 45.4 fL (36.4-46.3); Red Blood Count 3.51 M/uL (4.7-6.1); White Blood Count 7.79 K/uL (4.8-10.8)
[2020-12-18 06:57] LABS: Albumin Level 2.4 gm/dl (3.4-5.0); C Reactive Protein 4.03 mg/dl (0-0.29); Calcium 8.4 mg/dl (8.5-10.1); Creatinine Clr Calc Pharmacy 36.4 ml/min; Est GFR (African American) 42.3 ml/min; Est GFR (Non-African American) 36.5 ml/min; Potassium 3.6 mmol/L (3.5-5.1)
[2020-12-18 06:59] LABS: Albumin Globulin Ratio 0.7 (0.9-2); Bilirubin,Total 0.3 mg/dl (0.2-1); Globulin 3.4 gm/dl (2.5-4.0); Total Protein 5.8 gm/dl (6.4-8.2)
[2020-12-18] MEDS: INSULIN ASPART 100 UNITS/ML 3 ML PEN SC SCH ×3 (07:26→17:25)
[2020-12-18] MEDS: GABAPENTIN 100 MG CAP PO SCH (08:02)
[2020-12-18] MEDS: METOPROLOL TARTRATE 25 MG TAB PO SCH (08:02)
[2020-12-18] MEDS: MULTIVITAMIN TAB PO SCH (08:02)
[2020-12-18] MEDS: HEPARIN SOD 5,000 UNIT/0.5 ML VIAL SQ SCH (08:03)
[2020-12-18] MEDS: CLOPIDOGREL BISULFATE 75 MG TAB PO SCH (08:03)
[2020-12-18] MEDS: DOCUSATE SODIUM 100 MG CAP PO SCH (08:03)
[2020-12-18] MEDS: amLODIPine BESYLATE 5 MG TAB PO SCH (08:03)
[2020-12-18] MEDS: PANTOprazole 40 MG TAB PO SCH (08:03)
[2020-12-18] MEDS: FLUTICASONE/VILANTEROL 100/25MCG 14 PUFFS/INHALER INH SCH (08:04)
[2020-12-18] MEDS: UMECLIDINIUM BROMIDE 62.5MCG/BLISTER 7 PUFFS/INHALER INH SCH (08:04)
[2020-12-18] MEDS: INSULIN GLARGINE SOLOSTAR 100 UNITS/ML 3 ML PEN SC SCH (08:48)
[2020-12-18] MEDS ORDERED: ASPIRIN 81 MG ECTAB PO SCH (09:00)
--- NOTE | 2020-12-18 13:32 | Discharge Summary ---
Date of Service December 18, 2020 Admission HPI Per Admitting Provider Aj is an 85-year-old gentleman with a history of coronary artery disease status post CABG x3, hypertension, hyperlipidemia, insulin-dependent type 2 diabetes, CKD, GERD, COPD, and paroxysmal atrial fibrillation who presents to [facility] for evaluation of rigors. History is primarily obtained from patient's . She reports that approximately 2 weeks ago, patient was having somewhat increased shortness of breath with a constant wheeze; went to PCP and received approximately 5 days of prednisone. After this, she reported that he felt much better. Fast forward to the Monday, she noted that he had very intense rigors and difficulty sleeping. The following day, noted that he ate breakfast, still had rigors, and complained that it was cold despite being 85 degrees. Thereafter he slept for nearly 8 hours, and woke up at night. On Monday, the fatigue got worse. She notes that he lost his bowels in bed. Today, reach out to PCPs office who recommended going to the emergency room given duration of symptoms, severity of fatigue, presence of rigors, and possibility of infection. He denies any pain. Says that his breathing is not its best, but does not exactly feel short of breath either. notes that a couple weeks ago, had "huge blisters" on the top of his toes. This past week, apparently he had popped them and tried putting bandages on them, but they have gotten more red. He does have significant neuropathy, and denies pain. Further, she does note that he has been seen by [facility] vascular surgery in the past for evaluation of peripheral arterial disease, but no intervention was sought. At present, he endorses fatigue, denies chest pain, palpitations, nausea, vomiting, difficulties urinating/dysuria, difficulties with bowel movements other than the aforementioned. He actually reports "feeling great." In the ER, patient was found to be hemodynamically stable and afebrile. Blood pressure on admission was 109/64, heart rate between 50 to 60s. Patient was found to have leukocytosis of 20 with left shift. Pro-[place] elevated to 0.74. Lactate normal. Troponin normal. ECG without any acute conduction or repolarization abnormalities. Chest x-ray demonstrating very mild pulmonary vascular congestion.Given concern for possible infection, was initiated on Zosyn and daptomycin. Was given a bolus of fluids. Principal Diagnosis Group B strep bacteremia, likely source is toe infection Discharge Exam Constitutional WD/WN, vitals as above Respiratory normal respiratory effort, lungs clear to auscultation Cardiovascular RRR, no murmur, no edema Vessels: no JVD and + abnormal peripheral pulses (diminished pulses left foot but palpable) Gastrointestinal (Abdomen) normal bowel sounds, soft, nontender, no hepatosplenomegaly Musculoskeletal no cyanosis or clubbing, extremities motor strength 5/5 Skin + wound (wounds on both big toes, superficial) Neurologic CN's II-XI intact bilaterally, moves all extremities and awake; + abnormal sensation to monofilament (loss of sensation in feet bilaterally) and no focal motor deficits Psychiatric A+Ox3, euthymic affect Discharge Data Allergies Allergy/AdvReac Type Severity Reaction Status Date / Time ropinirole AdvReac Intermediate CHANGE IN Verified 12/07/20 14:06 MENTAL STATUS Consultations 12/16/20 17:50 ED Decision to Admit Stat 12/16/20 19:38 Consult Podiatry Routine Ordered Studies 12/16/20 18:58 US arterial duplex LE BI Urgent US venous doppler LE LT Urgent Hospital Course (1) Bacteremia: one set of cultures with gram positive cocci, chains - group B streptococcus will change to Rocephin 2gm IV daily will arrange for 7 more days of Rocephin after that will change to Augmentin BID x 7 more days repeat blood cultures drawn on 12/18 patient feeling a lot better, no fever, WBC normal feels ready to go home (2) Foot ulcer: both big toes with superficial ulcers/wounds no evidence of osteomyelitis on x-ray will follow up with podiatry next week treated with Dapto and Zosyn initially wound culture with group B strep and staph species see above, Rocephin and then Augmentin will place on Doxy BID x 14 days for staph infection (3) Peripheral vascular disease: arterial dopplers, bilateral plaque, worse in left leg feet are warm, no signs of acute occlusion change to aspirin 81mg daily and add Plavix 75mg daily recommend he follow up with cardiology, Dr. Rodriguez, for evaluation of PAD, intervention? (4) SIRS (systemic inflammatory response syndrome): due to bacteremia, suspected source is foot/toe wounds? no other signs of infection no fever, WBC coming down, RR stable, HR stable (5) Xyvtu-it-yykxrjx kidney injury: Cr was 1.94, making urine, electrolytes stable Cr down to 1.6 today resume Losartan, Bumex tomorrow (6) Hypothyroidism: (7) COPD (chronic obstructive pulmonary disease): lungs stable, breathing well, clear (8) Hypertension: (9) Edema of left lower extremity: (10) AMS (altered mental status): resolved (11) Dyslipidemia: (12) Hypertension, essential: (13) Paroxysmal atrial fibrillation: (14) H/O heart surgery: (15) CAD (coronary artery disease): (16) Vitamin D deficiency: (17) GERD (gastroesophageal reflux disease): (18) CHF (congestive heart failure): (19) Diabetes: some hypoglycemic episodes, but patient not eating as much as normal plus he is not eating a late night snack as he normally does at home Total Time Total Time Spent Total Time Spent (In Minutes): 40 Discharge Plan Discharge Items Patient Disposition: Home - Home Health Services Reason For Visit: RIGORS, INFECTION Discharge Diagnosis: Streptococcal bacteremia Staph wound infection Acute kidney injury on CKD stage 3 Condition on Discharge: Good Goals: complete 7 more days of Ceftriaxone take PO medications for Staph infection follow up with podiatry and PCP Activity: Resume your previous activity Driving/Machine Use: No limitations Weightbearing: Full weightbearing Non-emergency contact: Primary Care Provider Call non-emergency contact if: you have any medication questions, your symptoms worsen and you have a fever Follow-up/Referrals: Cory Nunez DO [Primary Care Provider] - 12/25/20 2:50 pm (one week) Helen Asencio DPM [Physician] - 12/23/20 1:15 pm (this upcoming week, appt should be made) Diet: Carb Consistent or DM2 and Heart Healthy Addtl Attending Provider Instructions: Medications: - CEFTRIAXONE: need to take 2000mg IV for 7 days for streptococcal bacteremia, suspected source is toe - AUGMENTIN: start this once you are finished with the ceftriaxone, take the following day, take twice a day for 7 days - DOXYCYCLINE: take 100mg twice a day for 14 days to cover Staph wound infection - PLAVIX: started for evidence of severe left sided peripheral vascular disease, please reduce aspirin to 81mg daily Bacteremia, wound infection blood culture (only one of two) grew out group B streptococcus which matches what you grew on wound culture, the wound culture also grew Staph with gram positive bacteremia, recommend treating with IV antibiotics for 7- 10 days prior to changing to PO you got two days of Zosyn IV that will cover the GBS and gave a dose of ceftriaxone 2000mg IV on 12/18 in afternoon please complete 7 more days of IV antibiotics at home via peripheral guided IV then transition to Augmentin for 7 more days as described above take Doxycycline for 14 days to cover Staph wound infection follow up with podiatry this week Left leg, severe peripheral vascular disease: change from aspirin twice a day to Plavix and aspirin, you might bruise easier on this recommend you follow up with Dr. Rodriguez, interventional cardiology, for his opinion on intervention (ie stents) Dr. Nunez can refer you Diabetes: you had some low sugars but likely from not eating late night snack keep close eye on sugars, check them if you feel like you are low Pending Studies at Discharge: Yes Studies:: repeat blood cultures Stand-Alone Forms: My [facility] [employer], Smoking Cessation Medications and DC Order Prescriptions: New clopidogrel 75 mg Tablet 75 mg PO QAM 30 Days Qty: 30 RF: 3 aspirin 81 mg Tablet,Delayed Release (Dr/Ec) 81 mg PO DAILY 30 Days Qty: 30 RF: 0 doxycycline hyclate 100 mg capsule 100 mg PO BID 14 Days Qty: 28 RF: 0 amoxicillin-pot clavulanate 875-125 mg tablet 1 tab PO BID Qty: 14 RF: 0 Continued amlodipine 10 mg tablet 10 mg PO DAILY Qty: 90 RF: 3 docusate sodium 100 mg capsule 200 mg PO BID RF: 0 metoprolol tartrate 25 mg tablet 25 mg PO BID Qty: 90 RF: 0 multivitamin [Daily Multi-Vitamin] tablet 1 tab PO DAILY RF: 0 Spiriva with HandiHaler 18 mcg capsule, w/inhalation device 1 cap inhalation DAILY Qty: 90 RF: 0 levothyroxine 88 mcg tablet 88 mcg PO QAM Qty: 90 RF: 0 albuterol sulfate 90 mcg/actuation HFA aerosol inhaler 2 puffs inhalation QID PRN (Reason: shortness of breath or wheezing) RF: 0 Symbicort 160-4.5 mcg/actuation HFA aerosol inhaler 2 puffs inhalation BID RF: 0 bumetanide 2 mg tablet 3 mg PO BID Qty: 180 RF: 0 potassium chloride 20 mEq tablet extended release 20 meq PO TID RF: 0 gabapentin 100 mg capsule 100 mg PO QAM Qty: 30 RF: 0 clonazepam 0.5 mg tablet 0.25 mg PO BID RF: 0 Lantus Solostar U-100 Insulin 100 unit/mL (3 mL) Insulin Pen 26 unit SUBCUT BID RF: 0 simvastatin 40 mg Tablet 40 mg PO HS RF: 0 Ocuvite Adult 50 Plus 250-5-1 mg Capsule 1 cap PO DAILY RF: 0 Fiber Gummies 2 gram Tablet,Chewable 2 g PO DAILY RF: 0 tamsulosin 0.4 mg capsule 0.4 mg PO HS RF: 0 losartan 25 mg tablet 25 mg PO QAM RF: 0 finasteride 5 mg tablet 5 mg PO HS RF: 0 pantoprazole 20 mg Tablet,Delayed Release (Dr/Ec) 20 mg PO DAILY RF: 0 bumetanide 1 mg Tablet 3 mg PO BID RF: 0 clonazepam 0.5 mg tablet 0.5 mg PO QPM RF: 0 diphenhydramine HCl 25 mg Tablet 25 mg PO BID PRN (Reason: Allergy Symptoms) RF: 0 gabapentin 100 mg Capsule 300 mg PO HS RF: 0 glipizide 10 mg tablet 10 mg PO BID RF: 0 Discontinued prednisone 20 mg tablet 20 mg PO DAILY Qty: 5 RF: 0 aspirin [Aspirin Low Dose] 81 mg Tablet,Delayed Release (Dr/Ec) 81 mg PO BID RF: 0 Discharge Orders: Discharge Order (Routine); Ordered 12/18/20 Ordered By: Dano Green/Other Patient Handouts: Wound Care Admission Data Admit Date/Time: 12/16/20 18:58 Attending Provider: Dano Palmer Admit Provider: Alexandru Rios Primary Care Provider: Cory Nunez Other Providers: Neymar Velazquez ; Helen Asencio ; [facility] Other Interventions: Discharge Summary Assessment (RN) Last Done: 12/18/20 16:50 Coding Level of Care Code D/C DAY MANAGEMENT >30 MINS Diagnoses Bacteremia R78.81 Foot ulcer L97.509 Peripheral vascular disease I73.9 SIRS (systemic inflammatory response syndrome) R65.10 [id number] kidney injury N17.9; N18.9 Acute renal failure type: unspecified Chronic kidney disease stage: unspecified stage Hypothyroidism E03.9 Hypothyroidism type: unspecified COPD (chronic obstructive pulmonary disease) J44.9 COPD type: unspecified COPD Hypertension I10 Hypertension type: essential hypertension Edema of left lower extremity R60.0 AMS (altered mental status) R41.82 Altered mental status type: unspecified Dyslipidemia E78.5 Hypertension, essential I10 Paroxysmal atrial fibrillation I48.0 H/O heart surgery Z98.890 CAD (coronary artery disease) I25.10 Associated angina: without angina Coronary Disease-Associated Artery/Lesion type: [place] artery [place] vs. transplanted heart: [place] heart Vitamin D deficiency E55.9 GERD (gastroesophageal reflux disease) K21.9 Esophagitis presence: esophagitis presence not specified CHF (congestive heart failure) I50.9 Heart failure chronicity: unspecified Heart failure type: unspecified Diabetes E11.65; Z79.4 Diabetes mellitus complication status: with hyperglycemia Diabetes mellitus longterm insulin use: with buttermaker continuous churn use Diabetes mellitus type: type 2 Home Health Attestation I certify that this patient is under my care and that I, or a physicians preschool teacher assistant working with me, had a face to-face encounter that meets the home health [id number] encounter requirements with this patient. The encounter with the patient was in whole, or in part, for the following medical condition, which is the primary reason for home health care (list medical condition): Bacteremia I certify that, based on my findings, the following services are medically necessary home health services: My clinical findings support the need for the above services because: Skilled Nsg Assessment Further, I certify that my clinical findings support that this patient is homebound (i.e. absences from home require considerable and taxing effort and are for medical reasons or bapt[employer] services or infrequently or of short duration when for other reasons) because: Certification for Home Health Services: Based on the above findings, I certify that this patient is confined to the home and needs intermittent senior living care, physical therapy and/or speech therapy or continues to need occupational therapy. The patient is under my care, and I have initiated the establishment of the plan of care. This patient will be followed by a physician who will periodically review the plan of care.
[2020-12-18] MEDS ORDERED: clonazePAM 0.5 MG TAB PO STA (15:50)
[2020-12-18] MEDS ORDERED: cefTRIAXone SODIUM 2,000 MG in DEXTROSE 5% 50 ML IV SCH (16:00)
== END 2020-12-18 18:17 | disposition home health service (06) | DRG 638 ==
LOC: ED 13:38 → 2S 18:58 → SUATTDRO 18:58 → 2S 21:32

== ENCOUNTER 2021-10-11 21:42 | Observation (INO) ==
[2021-10-11] MEDS ORDERED: DEXTROSE 50% 50 ML SYRINGE IV ONE (22:09)
--- NOTE | 2021-10-11 22:17 | Emergency Department Note ---
History of Present Illness General Chief complaint: Hypoglycemia Time Seen by Provider: 10/11/21 21:52 Source: patient and family ( who is at the bedside) Mode of arrival: wheelchair Limitations: no limitations History of Present Illness This patient is an 85-year-old male who was brought in by EMS after being found hypoglycemic. He ate a normal meal at [place] at 6:00 had sun eggs and some dessert. His said she was laying down and noticed that he was disoriented and perspiring. She did not check her blood sugar but gave him orange juice and a peanut butter cup and called the ambulance when they arrived after eating that he was 51. They gave him 2 squirts of oral glucose and he went up to 79 upon arrival in ER he had dropped back down to 58 he says he is feeling better he just feels diffusely weak. She feels his speech is a little off as it does when he gets hypoglycemic. He typically runs very high but over the last 2 months the [place] has been intensively managing his insulin and he has had several episodes where is gotten low but not quite like this. No chest pain or shortness of breath. He fell on Monday or Monday but does not think he got injured denies any headache. Home Medications Medication Instructions Recorded Confirmed Type albuterol sulfate 90 mcg/actuation 2 puffs INHALATION QID PRN gm 01/10/19 10/11/21 History aerosol inhaler budesonide-formoterol HFA 160 2 puffs INHALATION BID gm 01/10/19 10/11/21 Hist ory mcg-4.5 mcg/actuation aerosol inhaler (Symbicort) docusate sodium 100 mg capsule 200 mg PO BID cap 01/10/19 10/11/21 History levothyroxine 88 mcg tablet 88 mcg PO QAM #90 tab 01/10/19 10/11/21 History metoprolol tartrate 25 mg tablet 25 mg PO BID #90 tab 01/10/19 10/11/21 History multivitamin (Daily Multi-Vitamin) 1 tab PO DAILY 01/10/19 10/11/21 History potassium chloride 20 mEq 20 meq PO TID tab 01/10/19 10/11/21 History tablet,extended release tiotropium bromide 18 mcg capsule 1 cap INHALATION DAILY #90 puffs 01/10/19 10/11/21 History with inhalation device (Spiriva with HandiHaler) insulin glargine 100 unit/mL (3 26 unit SUBCUT BID 01/20/19 10/11/21 History mL) subcutaneous pen (Lantus Solostar U-100 Insulin) finasteride 5 mg tablet 5 mg PO HS 04/23/19 10/11/21 History inulin 2 gram chewable tablet 2 g PO DAILY 04/23/19 10/11/21 History (Fiber Gummies) losartan 25 mg tablet 25 mg PO QAM 04/23/19 10/11/21 History tamsulosin 0.4 mg capsule 0.4 mg PO HS 04/23/19 10/11/21 History vit C,E,zinc,copper-nhobg4m 250 1 cap PO DAILY 04/23/19 10/11/21 History mg-lutein 5 mg-zeaxanthin 1 mg capsule (Ocuvite Adult 50 Plus) gabapentin 100 mg capsule 100 mg PO QAM #30 cap 02/21/20 10/11/21 History clonazepam 0.5 mg tablet 0.25 mg PO BID 03/16/20 10/11/21 History bumetanide 1 mg tablet 3 mg PO BID 12/16/20 10/11/21 History clonazepam 0.5 mg tablet 0.5 mg PO QPM 12/16/20 10/11/21 History diphenhydramine HCl 25 mg tablet 25 mg PO BID PRN 12/16/20 10/11/21 History gabapentin 100 mg capsule 300 mg PO HS 12/16/20 10/11/21 History glipizide 10 mg tablet 10 mg PO BID 12/16/20 10/11/21 History pantoprazole 20 mg tablet,delayed 20 mg PO DAILY 12/16/20 10/11/21 History release amlodipine 10 mg tablet 10 mg PO DAILY #90 tab 01/18/21 10/11/21 Rx clopidogrel 75 mg tablet 75 mg PO QAM 90 Days #90 tab 04/20/21 10/11/21 Rx Unknown Statin Medication 1 tab PO HS 10/11/21 10/11/21 History aspirin 81 mg tablet,delayed 81 mg PO DAILY 10/11/21 10/11/21 History release Allergies Allergy/AdvReac Type Severity Reaction Status Date / Time ropinirole AdvReac Intermediate CHANGE IN Verified 10/11/21 22:15 MENTAL STATUS Past Med/Surg History Medical History Acute bronchopneumonia Acute urinary retention Anxiety Aortic stenosis Mild per 03/06/19 stress ECHO Asthma Uses rescue inhaler a couple times per week Atrial fibrillation Follows with Dr. Maile Soares Blindness of left eye BPH (benign prostatic hyperplasia) CAD (coronary artery disease) Angioplasty ~1993, CABG x 3 2013 (GALINDO to LAD, SVG to PDA, SVG to OM) CHF (congestive heart failure) Chronic kidney disease Follows with Dr. Dixon Chronic obstructive pulmonary disease Diabetes Type 2 IDDM Foot ulcer GERD (gastroesophageal reflux disease) Herpes zoster Hiatal hernia Hyperlipidemia Hypertension Hypervolemia Hypothyroidism Leukocytosis Macular degeneration Myocardial infarct ~1993 Peripheral neuropathy Rupture of left distal biceps tendon hx - no surgery Secondary hyperparathyroidism (of renal origin) SIRS (systemic inflammatory response syndrome) Surgical History Fusion of spine lumbar History of appendectomy History of cardiac cath with angioplasty ~1993 ([facility]) & 2013 ([facility]) History of cataract surgery bilateral History of coronary artery bypass graft x3 vessels ( 2013) with epicardial RFA of pulmonary veins and left atrial appendage ligation History of revision of total replacement of right knee joint History of tonsillectomy History of tooth extraction History of total left knee replacement History of total right knee replacement Hx of colonoscopy Previous back surgery (08/26/12) S/P cholecystectomy Family History Brother Heart disease Diabetes Sister Cancer Mother Diabetes Father Diabetes Other Hypertension Kidney disease Social History Smoking Status: Never smoker Tobacco Type: Cigarettes Second Hand Exposure: No; Hx Alcohol Use: No Hx Substance Use: No Preferred Language: Turkish Communication Ability: Effective Visual Impairment: Partially Limited Maritime Engineer Required: No Beliefs That Will Affect Care: None marital status: Current Living Situation: Spouse current occupational status: retired Feels Safe at Home: Yes Assistive Devices: Denture - Upper and Glasses Review of Systems A total of 10 systems reviewed and were otherwise negative Physical Exam Vital Signs Vital Signs - 24 hr 10/11/21 21:47 10/11/21 22:02 10/11/21 22:22 Temperature 34.4 C L Temperature Source Oral Pulse Rate 62 51 L Pulse Rate [Finger] 62 Pulse Rhythm Regular Pulse Rhythm [Finger] Regular Pulse Strength [Finger] Normal Respiratory Rate 18 18 16 Respiratory Effort / Characteristics Non-Labored Non-Labored Respiratory Depth Normal Normal Respiratory Pattern Regular Blood Pressure 112/47 L Blood Pressure [Right Arm] 118/52 L Blood Pressure Mean 68 Blood Pressure Mean [Right Arm] 74 Blood Pressure Position [Right Arm] Sitting Pulse Oximetry 97 95 92 Oxygen Delivery Method Room Air Room Air Room Air Sepsis Recent Fever Within 48 Hours No Sepsis New/Unexplained Change in Mental Status No Sepsis Action Taken by Nursing No Action Required 10/11/21 23:10 10/12/21 00:29 10/12/21 01:19 Temperature 34.7 C L 34.7 C L 36.4 C L Temperature Source Rectal Oral Oral Pulse Rate Pulse Rate [Finger] 52 L 54 L Pulse Rhythm Pulse Rhythm [Finger] Regular Regular Pulse Strength [Finger] Normal Normal Normal Respiratory Rate 16 14 16 Respiratory Effort / Characteristics Non-Labored Spontaneous Non-Labored Non-Labored Respiratory Depth Normal Normal Normal Respiratory Pattern Regular Blood Pressure Blood Pressure [Right Arm] 115/52 L 116/58 L 118/54 L Blood Pressure Mean Blood Pressure Mean [Right Arm] 73 77 75 Blood Pressure Position [Right Arm] Sitting Sitting Sitting Pulse Oximetry 94 93 94 Oxygen Delivery Method Room Air Room Air Room Air Sepsis Recent Fever Within 48 Hours Sepsis New/Unexplained Change in Mental Status Sepsis Action Taken by Nursing General: Well developed well nourished older male who appears in no acute distress, breathing comfortably on room air. Normal speech, minimally slurred. HEENT: Normal cephalic atraumatic. Pupils are equal round and reactive to light. Extraocular movements are intact. Oropharynx is pink with moist mucous membranes. No swelling of the mouth lips or tongue. Neck: Supple with a midline trachea. No meningeal signs or stiffness, no JVD or bruits. No Stridor. Chest: Clear to auscultation bilaterally. No wheezes or rhonchi. No increased work of breathing. Heart: Regular rate and rhythm without murmurs or gallops. Abdomen: Soft nontender, nondistended without rebound guarding or rigidity. Extremities: No cyanosis clubbing or edema. No calf tenderness or assymetry Spine/Back. Non tender to palpation. No CVA tenderness Skin: Good turgor without rashes. Neurologic exam: Cranial nerves two through 12 are intact. Motor and sensation are intact and symmetrical throughout. He appears to be weak in both the legs right slightly greater than left. His says this has been going on for a couple days she thinks. Course Administered Medications Discontinued Medications Dextrose (Dextrose 50% 50 Ml Syringe) Confirm Administered Dose 50 ml IV .[employer]- MED ONE Stop: 10/11/21 22:10 Last Admin: 10/11/21 22:12 Dose: 50 ml Documented by: [id number] Medical Decision Making Differential Diagnosis Hypoglycemia, stroke, trauma, intra-abdominal process, electrolyte or metabolic abnormality Medical Records Attestation: I reviewed the patient's medical records. Home Medications Current Medication List: was personally reviewed by me Laboratory Data Attestation: I reviewed the patient's lab results. Result diagrams: 10/11/21 21:45 10/11/21 21:45 Lab Results 10/11/21 10/11/21 10/11/21 Range/Units 21:45 21:45 21:45 WBC 7.92 (4.8-10.8) K/uL RBC 4.14 L (4.7-6.1) M/uL Hgb 12.7 L (14.0-18.0) g/dL Hct 38.4 L (42-52) % MCV 92.8 (80-100) fL MCH 30.7 (25-34) pg MCHC 33.1 (32-36) g/dL RDW Std Deviation 47.7 H (36.4-46.3) fL RDW Coeff of Adrian 13.9 (11.5-14.5) % Plt Count 163 (130-400) K/uL MPV 9.6 (7.4-10.4) fL Immature Gran % (Auto) 0.6 % Neut % (Auto) 52.4 % Lymph % (Auto) 35.5 % [place] % (Auto) 8.7 % Eos % (Auto) 2.5 % Baso % (Auto) 0.3 % Neut # (Auto) 4.15 (1.4-6.5) K/uL Lymph # (Auto) 2.81 (1.2-3.4) K/uL [place] # (Auto) 0.69 H (0.11-0.59) K/uL Eos # (Auto) 0.20 (0-0.5) K/uL Baso # (Auto) 0.02 (0-0.2) K/uL Immature Gran # (Auto) 0.05 H (0.00-0.02) K/uL PT 10.9 (9.0-12.0) Seconds INR 1.0 (0.9-1.1) APTT 24.4 (21.0-31.0) Seconds PTT Ratio 0.9 Sodium (136-145) mmol/L Potassium (3.5-5.1) mmol/L Chloride (98-107) mmol/L Carbon Dioxide (21-32) mmol/L Anion Gap (3-11) BUN (6-23) mg/dl Creatinine (0.6-1.4) mg/dl Est Cr Clr Drug Dosing Est GFR ( Amer) ml/min Est GFR (Non-Af Amer) ml/min BUN/Creatinine Ratio (10-20) Glucose (70-99(Fasting)) mg/dl POC Glucose (70-99) mg/dl Calcium (8.5-10.1) mg/dl Total Bilirubin (0.2-1.0) mg/dl AST (13-39) U/L ALT (7-52) U/L Alkaline Phosphatase (34-104) U/L Troponin I High Sens 7.2 (0-20) pg/ml Total Protein (6.0-8.3) gm/dl Albumin (3.4-5.0) gm/dl Globulin (2.5-4.0) gm/dl Albumin/Globulin Ratio (0.9-2) Lipase (11-82) U/L SARS-CoV-2, RNA, NAAT (NEGATIVE) 10/11/21 10/11/21 10/11/21 Range/Units 21:45 21:53 22:21 WBC (4.8-10.8) K/uL RBC (4.7-6.1) M/uL Hgb (14.0-18.0) g/dL Hct (42-52) % MCV (80-100) fL MCH (25-34) pg MCHC (32-36) g/dL RDW Std Deviation (36.4-46.3) fL RDW Coeff of Adrian (11.5-14.5) % Plt Count (130-400) K/uL MPV (7.4-10.4) fL Immature Gran % (Auto) % Neut % (Auto) % Lymph % (Auto) % [place] % (Auto) % Eos % (Auto) % Baso % (Auto) % Neut # (Auto) (1.4-6.5) K/uL Lymph # (Auto) (1.2-3.4) K/uL [place] # (Auto) (0.11-0.59) K/uL Eos # (Auto) (0-0.5) K/uL Baso # (Auto) (0-0.2) K/uL Immature Gran # (Auto) (0.00-0.02) K/uL PT (9.0-12.0) Seconds INR (0.9-1.1) APTT (21.0-31.0) Seconds PTT Ratio Sodium 140 (136-145) mmol/L Potassium 3.5 (3.5-5.1) mmol/L Chloride 105 (98-107) mmol/L Carbon Dioxide 27 (21-32) mmol/L Anion Gap 8 (3-11) BUN 32 H (6-23) mg/dl Creatinine 1.84 H (0.6-1.4) mg/dl Est Cr Clr Drug Dosing Not Reportable Est GFR ( Amer) 37.9 ml/min Est GFR (Non-Af Amer) 32.7 ml/min BUN/Creatinine Ratio 17.4 (10-20) Glucose 50 L* (70-99(Fasting)) mg/dl POC Glucose 58 L* 187 H (70-99) mg/dl Calcium 8.8 (8.5-10.1) mg/dl Total Bilirubin 0.4 (0.2-1.0) mg/dl AST 19 (13-39) U/L ALT 14 (7-52) U/L Alkaline Phosphatase 62 (34-104) U/L Troponin I High Sens (0-20) pg/ml Total Protein 6.2 (6.0-8.3) gm/dl Albumin 3.8 (3.4-5.0) gm/dl Globulin 2.4 L (2.5-4.0) gm/dl Albumin/Globulin Ratio 1.6 (0.9-2) Lipase 44 (11-82) U/L SARS-CoV-2, RNA, NAAT (NEGATIVE) 10/11/21 10/11/21 10/12/21 Range/Units 23:04 23:21 00:06 WBC (4.8-10.8) K/uL RBC (4.7-6.1) M/uL Hgb (14.0-18.0) g/dL Hct (42-52) % MCV (80-100) fL MCH (25-34) pg MCHC (32-36) g/dL RDW Std Deviation (36.4-46.3) fL RDW Coeff of Adrian (11.5-14.5) % Plt Count (130-400) K/uL MPV (7.4-10.4) fL Immature Gran % (Auto) % Neut % (Auto) % Lymph % (Auto) % [place] % (Auto) % Eos % (Auto) % Baso % (Auto) % Neut # (Auto) (1.4-6.5) K/uL Lymph # (Auto) (1.2-3.4) K/uL [place] # (Auto) (0.11-0.59) K/uL Eos # (Auto) (0-0.5) K/uL Baso # (Auto) (0-0.2) K/uL Immature Gran # (Auto) (0.00-0.02) K/uL PT (9.0-12.0) Seconds INR (0.9-1.1) APTT (21.0-31.0) Seconds PTT Ratio Sodium (136-145) mmol/L Potassium (3.5-5.1) mmol/L Chloride (98-107) mmol/L Carbon Dioxide (21-32) mmol/L Anion Gap (3-11) BUN (6-23) mg/dl Creatinine (0.6-1.4) mg/dl Est Cr Clr Drug Dosing Est GFR ( Amer) ml/min Est GFR (Non-Af Amer) ml/min BUN/Creatinine Ratio (10-20) Glucose (70-99(Fasting)) mg/dl POC Glucose 146 H 113 H (70-99) mg/dl Calcium (8.5-10.1) mg/dl Total Bilirubin (0.2-1.0) mg/dl AST (13-39) U/L ALT (7-52) U/L Alkaline Phosphatase (34-104) U/L Troponin I High Sens (0-20) pg/ml Total Protein (6.0-8.3) gm/dl Albumin (3.4-5.0) gm/dl Globulin (2.5-4.0) gm/dl Albumin/Globulin Ratio (0.9-2) Lipase (11-82) U/L SARS-CoV-2, RNA, NAAT NEGATIVE (NEGATIVE) Imaging Data Attestation: I personally reviewed and interpreted this imaging study as follows: My Impression: Chest xray-no acute infiltrate, failure, pneumothorax. Cardiomegaly. Radiologist's Impression: CT of the headstat radno acute intracranial hemorrhage, mass-effect, midline shift. There is no abnormal extra-axial fluid collection. No evidence of acute infarct. Mild periventricular white matter hypodensities are most consistent with chronic microangiopathic path the. The visualized. Sinuses and mastoid air cells are clear no fracture. ECG Data Attestation: I personally reviewed and interpreted this ECG as follows: Indication: + weakness Rate (beats per minute): 54 Rhythm: + sinus bradycardia ECG Intervals/blocks: + Right Bundle branch block ECG [place]: + Normal ECG ST segments: + Normal ST segments ECG Findings: no PACs or no PVCs Comparison ECG Date: from (12/16/20) Change: the following changes noted MDM Narrative This patient comes in after having sweatiness and altered mental status even after eating was found to be low at 51 he did get some glucose it seems to be dropping back down a little bit. He does seem to be generally weak and it is hard to really get a timeframe on this some of this seems to been going on chronically I do not think he likely had a stroke but will do a CAT scan of his head well were bring his blood sugar up. I did give an amp of D50 IV. He was also hypothermic and put a bear hugger on him. He has a EKG that does not appear ischemic. He has no elevation of troponin. He has no significant electrolyte or metabolic abnormalities. His blood sugar did remain in the low 100s talking to the patient his they have been aggressively managing his blood sugar over the last 2 months he has been getting hypoglycemic. I think this is likely was causing his symptoms but I do think he needs to be monitored. I have consulted Dr. Gaitan to see him for these measures Continuous cardiac monitoring: Orders placed in EMR for continuous medical payment poster he was found to be sinus bradycardia 54 Impression & Plan Altered mental status, Weakness, Hypoglycemia, Lab test negative for COVID-19 virus Discharge Plan Visit Data Chief Complaint: Hypoglycemia ED Provider: Juan Carlos Nelson Discharge Problem: Altered mental status, Weakness, Hypoglycemia, Lab test negative for COVID-19 virus Forms Stand Alone Forms: My [facility] Prescriptions Prescriptions: No Action amlodipine 10 mg tablet 10 mg PO DAILY Qty: 90 RF: 3 clopidogrel 75 mg tablet 75 mg PO QAM 90 Days Qty: 90 RF: 3 docusate sodium 100 mg capsule 200 mg PO BID RF: 0 metoprolol tartrate 25 mg tablet 25 mg PO BID Qty: 90 RF: 0 multivitamin [Daily Multi-Vitamin] tablet 1 tab PO DAILY RF: 0 Spiriva with HandiHaler 18 mcg capsule, w/inhalation device 1 cap inhalation DAILY Qty: 90 RF: 0 levothyroxine 88 mcg tablet 88 mcg PO QAM Qty: 90 RF: 0 albuterol sulfate 90 mcg/actuation HFA aerosol inhaler 2 puffs inhalation QID PRN (Reason: shortness of breath or wheezing) RF: 0 Symbicort 160-4.5 mcg/actuation HFA aerosol inhaler 2 puffs inhalation BID RF: 0 potassium chloride 20 mEq tablet extended release 20 meq PO TID RF: 0 gabapentin 100 mg capsule 100 mg PO QAM Qty: 30 RF: 0 clonazepam 0.5 mg tablet 0.25 mg PO BID RF: 0 Lantus Solostar U-100 Insulin 100 unit/mL (3 mL) Insulin Pen 26 unit SUBCUT BID RF: 0 Ocuvite Adult 50 Plus 250-5-1 mg Capsule 1 cap PO DAILY RF: 0 Fiber Gummies 2 gram Tablet,Chewable 2 g PO DAILY RF: 0 tamsulosin 0.4 mg capsule 0.4 mg PO HS RF: 0 losartan 25 mg tablet 25 mg PO QAM RF: 0 finasteride 5 mg tablet 5 mg PO HS RF: 0 pantoprazole 20 mg Tablet,Delayed Release (Dr/Ec) 20 mg PO DAILY RF: 0 bumetanide 1 mg Tablet 3 mg PO BID RF: 0 clonazepam 0.5 mg tablet 0.5 mg PO QPM RF: 0 diphenhydramine HCl 25 mg Tablet 25 mg PO BID PRN (Reason: Allergy Symptoms) RF: 0 gabapentin 100 mg Capsule 300 mg PO HS RF: 0 glipizide 10 mg tablet 10 mg PO BID RF: 0 aspirin 81 mg Tablet,Delayed Release (Dr/Ec) 81 mg PO DAILY RF: 0 Unknown Statin Medication 1 tab PO HS RF: 0 Referrals Referrals: Cory Nunez DO [Primary Care Provider] - Discharge Problem: Altered mental status Qualifiers: Altered mental status type: unspecified Qualified Code(s): R41.82 - Altered mental status, unspecified
[2021-10-11 22:24] LABS: Basophils # (auto) 0.02 K/uL (0-0.2); Basophils % (auto) 0.3 %; Eosinophils % (auto) 2.5 %; Hematocrit (blood only) 38.4 % (42-52); Hemoglobin 12.7 g/dL (14.0-18.0); Immature Granulocytes # (auto) 0.05 K/uL (0.00-0.02); Immature Granulocytes % (auto) 0.6 %; Lymphocytes # (auto) 2.81 K/uL (1.2-3.4); Lymphocytes % (auto) 35.5 %; Mean Corpuscular Hemoglobin 30.7 pg (25-34); Mean Corpuscular Hgb Conc 33.1 g/dL (32-36); Mean Corpuscular Volume 92.8 fL (80-100); Mean Platelet Volume 9.6 fL (7.4-10.4); Monocytes # (auto) 0.69 K/uL (0.11-0.59); Monocytes % (auto) 8.7 %; Neutrophils # (auto) 4.15 K/uL (1.4-6.5); Neutrophils % (auto) 52.4 %; Platelet Count 163 K/uL (130-400); RDW Coefficient of Variation 13.9 % (11.5-14.5); RDW Standard Deviation 47.7 fL (36.4-46.3); Red Blood Count 4.14 M/uL (4.7-6.1); White Blood Count 7.92 K/uL (4.8-10.8)
[2021-10-11 22:31] LABS: Partial Thromboplastin Ratio 0.9; Partial Thromboplastin Time 24.4 Seconds (21.0-31.0); Prothrombin Time 10.9 Seconds (9.0-12.0)
[2021-10-11 22:44] LABS: Alanine Aminotransferase 14 U/L (7-52); Albumin Globulin Ratio 1.6 (0.9-2); Albumin Level 3.8 gm/dl (3.4-5.0); Alkaline Phosphatase 62 U/L (34-104); Anion Gap 8 (3-11); Aspartate Aminotransferase 19 U/L (13-39); BUN Creatinine Ratio 17.4 (10-20); Bilirubin,Total 0.4 mg/dl (0.2-1.0); Blood Urea Nitrogen 32 mg/dl (6-23); Calcium 8.8 mg/dl (8.5-10.1); Carbon Dioxide 27 mmol/L (21-32); Chloride 105 mmol/L (98-107); Est GFR (African American) 37.9 ml/min; Est GFR (Non-African American) 32.7 ml/min; Globulin 2.4 gm/dl (2.5-4.0); Glucose 50 mg/dl (70-99(Fasting)); Lipase 44 U/L (11-82); Potassium 3.5 mmol/L (3.5-5.1); Sodium 140 mmol/L (136-145); Total Protein 6.2 gm/dl (6.0-8.3)
--- NOTE | 2021-10-12 01:07 | History & Physical Report ---
Date of Service October 12, 2021 Assessment & Plan (1) Hypoglycemia: Plan: Patient hypoglycemic upon arrival. He is on an aggressive insulin regimen including glipizide 10 mg p.o. twice daily as well as Lantus 54 units in the morning and 44 units in the evening (per patient history). [facility]. Admit to medical Check hemoglobin A1c Hold glipizide and Lantus Insulin sliding scale with goal blood sugar 1 20-1 80 Pharmacy glycemic management consultation appreciated (2) Chronic kidney disease: Plan: BUN and creatinine near baseline Avoid nephrotoxic agents Repeat chemistry in the morning (3) Benign prostatic hyperplasia with urinary obstruction: Plan: Chronic. Stable on medications Continue finasteride Continue tamsulosin (4) COPD (chronic obstructive pulmonary disease): Plan: No cough, shortness of breath or wheeze. Adequate oxygenation on room air Continue tiotropium Continue budesonideformoterol Continue albuterol as needed (5) Hypothyroidism: Plan: Chronic. Check TSH Continue Synthroid (6) Hypertension: Plan: Blood pressure stable at present Continue amlodipine Continue losartan Continue metoprolol Continue to monitor (7) CAD (coronary artery disease): Plan: Chronic. Stable. Patient denies chest pain. She does have stable dyspnea on exertion Continue aspirin, Plavix, metoprolol, losartan (8) Diabetes: Plan: Presenting with hypoglycemia Holding oral medications and home insulin Managed with insulin sliding scale for now Glycemic management consultation appreciated History of Present Illness Chief Complaint: Hypoglycemia Primary Care Provider: Cory Nunez DO Aj Monroy is an 85-year-old male with history of multiple medical problems to include type 2 diabetes on insulin therapy, hypertension, hyperlipidemia, CAD, CKD, hypothyroidism and GERD presenting with hypoglycemia. Patient reports having dinner at [place] this evening around 1900. He had sun, eggs and dessert. He took his glipizide after his meal (typically takes it 15 minutes prior to eating however, when he forgets he will occasionally take it after his meal). He went to lay down and his noticed that he was disoriented and perspiring. She did not check his blood sugar gave him orange juice and a peanut butter cup and called EMS. Blood sugar by EMS was found to be 51. They gave him 2 squirts of oral glucose which increased his blood sugar to 79. Upon arrival to the ER patient afebrile, hemodynamically stable. Blood sugar found to be 58. Patient was administered 1 amp of D50. Repeat blood sugar = 187--> 146--> 113--> 223 Patient checks his blood sugar q. morning and reports that the average over the past 12 days has been 125. He does report "a couple" lows over the last 12 days in the 60s. He drinks juice and eats a snack if he gets a low reading and typically feels better quickly. He reports taking glipizide 10 mg p.o. twice daily 15 minutes before his meal. He also takes Lantus 54 units in the morning and 44 units in the evening. [facility] course: D50 x1 amp Allergies Allergy/AdvReac Type Severity Reaction Status Date / Time ropinirole AdvReac Intermediate CHANGE IN Verified 10/11/21 22:15 MENTAL STATUS Home Medications Medication Instructions Recorded Confirmed Type albuterol sulfate 90 mcg/actuation 2 puffs INHALATION QID PRN gm 01/10/19 10/11/21 History aerosol inhaler budesonide-formoterol HFA 160 2 puffs INHALATION BID gm 01/10/19 10/11/21 History mcg-4.5 mcg/actuation aerosol inhaler (Symbicort) docusate sodium 100 mg capsule 200 mg PO BID cap 01/10/19 10/11/21 History levothyroxine 88 mcg tablet 88 mcg PO QAM #90 tab 01/10/19 10/11/21 History metoprolol tartrate 25 mg tablet 25 mg PO BID #90 tab 01/10/19 10/11/21 History multivitamin (Daily Multi-Vitamin) 1 tab PO DAILY 01/10/19 10/11/21 History potassium chloride 20 mEq 20 meq PO TID tab 01/10/19 10/11/21 History tablet,extended release tiotropium bromide 18 mcg capsule 1 cap INHALATION DAILY #90 puffs 01/10/19 10/11/21 History with inhalation device (Spiriva with HandiHaler) insulin glargine 100 unit/mL (3 26 unit SUBCUT BID 01/20/19 10/11/21 History mL) subcutaneous pen (Lantus Solostar U-100 Insulin) finasteride 5 mg tablet 5 mg PO HS 04/23/19 10/11/21 History inulin 2 gram chewable tablet 2 g PO DAILY 04/23/19 10/11/21 History (Fiber Gummies) losartan 25 mg tablet 25 mg PO QAM 04/23/19 10/11/21 History tamsulosin 0.4 mg capsule 0.4 mg PO HS 04/23/19 10/11/21 History vit C,E,zinc,copper-avhfq5l 250 1 cap PO DAILY 04/23/19 10/11/21 History mg-lutein 5 mg-zeaxanthin 1 mg capsule (Ocuvite Adult 50 Plus) gabapentin 100 mg capsule 100 mg PO QAM #30 cap 02/21/20 10/11/21 History clonazepam 0.5 mg tablet 0.25 mg PO BID 03/16/20 10/11/21 History bumetanide 1 mg tablet 3 mg PO BID 12/16/20 10/11/21 History clonazepam 0.5 mg tablet 0.5 mg PO QPM 12/16/20 10/11/21 History diphenhydramine HCl 25 mg tablet 25 mg PO BID PRN 12/16/20 10/11/21 History gabapentin 100 mg capsule 300 mg PO HS 12/16/20 10/11/21 History glipizide 10 mg tablet 10 mg PO BID 12/16/20 10/11/21 History pantoprazole 20 mg tablet,delayed 20 mg PO DAILY 12/16/20 10/11/21 History release amlodipine 10 mg tablet 10 mg PO DAILY #90 tab 01/18/21 10/11/21 Rx clopidogrel 75 mg tablet 75 mg PO QAM 90 Days #90 tab 04/20/21 10/11/21 Rx Unknown Statin Medication 1 tab PO HS 10/11/21 10/11/21 History aspirin 81 mg tablet,delayed 81 mg PO DAILY 10/11/21 10/11/21 History release Past Med/Surg History Medical History Acute bronchopneumonia Acute urinary retention Anxiety Aortic stenosis Mild per 03/06/19 stress ECHO Asthma Uses rescue inhaler a couple times per week Atrial fibrillation Follows with Dr. Gr Bacteremia Blindness of left eye BPH (benign prostatic hyperplasia) CAD (coronary artery disease) Angioplasty ~1993, CABG x 3 2013 (GALINDO to LAD, SVG to PDA, SVG to OM) CHF (congestive heart failure) Chronic kidney disease Follows with Dr. Dixon Chronic obstructive pulmonary disease Diabetes Type 2 IDDM Foot ulcer GERD (gastroesophageal reflux disease) Herpes zoster Hiatal hernia Hyperlipidemia Hypertension Hypervolemia Hypothyroidism Leukocytosis Macular degeneration Myocardial infarct ~1993 Peripheral neuropathy Rupture of left distal biceps tendon hx - no surgery Secondary hyperparathyroidism (of renal origin) SIRS (systemic inflammatory response syndrome) Surgical History Fusion of spine lumbar History of appendectomy History of cardiac cath with angioplasty ~1993 ([facility]) & 2013 ([facility]) History of cataract surgery bilateral History of coronary artery bypass graft x3 vessels ([facility] 2013) with epicardial RFA of pulmonary veins and left atrial appendage ligation History of revision of total replacement of right knee joint History of tonsillectomy History of tooth extraction History of total left knee replacement History of total right knee replacement Hx of colonoscopy Previous back surgery (08/26/12) S/P cholecystectomy Family History Brother Heart disease Diabetes Sister Cancer Mother Diabetes Father Diabetes Other Hypertension Kidney disease Social History Smoking Status: Never smoker Tobacco Type: Cigarettes Second Hand Exposure: No; Hx Alcohol Use: No Hx Substance Use: No Preferred Language: Gu[place]ian Communication Ability: Effective Visual Impairment: Partially Limited Wool Spotter Required: No Beliefs That Will Affect Care: None marital status: Current Living Situation: Spouse current occupational status: retired Feels Safe at Home: Yes Assistive Devices: Denture - Upper and Glasses Review of Systems Review of Systems: All systems reviewed & are unremarkable except as noted in HPI & below Physical Exam Physical Exam: General: patient resting comfortably, NAD, non-toxic in appearance, AA&O x 4 Skin: warm, dry, intact, no rashes or lesions HEENT: NC/AT, PERRL, EOMI, anicteric sclera, conjunctiva without injection, external ear normal to inspection and nontender, nares patent, moist mucus membranes, dentition intact, no oropharyngeal lesions, neck supple, trachea midline, no LAD, no thyromegaly, no JVD Heart: +S1/S2, regular, 3/6 systolic ejection murmur over right second intercostal space with radiation across the precordium, no rubs or gallops Lungs: equal air entry bilaterally, no rales/rhonchi/wheezes Abd: +BS, soft, NT/ND, no masses/organomegaly/ascites Ext: warm, 2+ pulses in UE/LE bilaterally, no clubbing/cyanosis or edema Neuro: nonfocal, patient AA&O x 4, speech intact, no facial droop, moving all extremities on command with equal strength 5/5 Results & Data Results & [facility]) Vital Signs (Past 12 Hours) Vital Signs Temp Pulse Pulse Resp BP BP Pulse Ox 10/12/21 00:29 34.7 C L 54 L 14 116/58 L 93 10/11/21 23:10 34.7 C L 52 L 16 115/52 L 94 10/11/21 22:22 51 L 16 92 10/11/21 22:02 62 18 118/52 L 95 10/11/21 21:47 34.4 C L 62 18 112/47 L 97 Laboratory Results Laboratory Results WBC 7.92 K/uL (4.8-10.8) 10/11/21 21:45 RBC 4.14 M/uL (4.7-6.1) L 10/11/21 21:45 Hgb 12.7 g/dL (14.0-18.0) L 10/11/21 21:45 Hct 38.4 % (42-52) L 10/11/21 21:45 MCV 92.8 fL (80-100) 10/11/21 21:45 MCH 30.7 pg (25-34) 10/11/21 21:45 MCHC 33.1 g/dL (32-36) 10/11/21 21:45 RDW Std Deviation 47.7 fL (36.4-46.3) H 10/11/21 21:45 RDW Coeff of Adrian 13.9 % (11.5-14.5) 10/11/21 21:45 Plt Count 163 K/uL (130-400) 10/11/21 21:45 MPV 9.6 fL (7.4-10.4) 10/11/21 21:45 Immature Gran % (Auto) 0.6 % 10/11/21 21:45 Neut % (Auto) 52.4 % 10/11/21 21:45 Lymph % (Auto) 35.5 % 10/11/21 21:45 [place] % (Auto) 8.7 % 10/11/21 21:45 Eos % (Auto) 2.5 % 10/11/21 21:45 Baso % (Auto) 0.3 % 10/11/21 21:45 Neut # (Auto) 4.15 K/uL (1.4-6.5) 10/11/21 21:45 Lymph # (Auto) 2.81 K/uL (1.2-3.4) 10/11/21 21:45 [place] # (Auto) 0.69 K/uL (0.11-0.59) H 10/11/21 21:45 Eos # (Auto) 0.20 K/uL (0-0.5) 10/11/21 21:45 Baso # (Auto) 0.02 K/uL (0-0.2) 10/11/21 21:45 Immature Gran # (Auto) 0.05 K/uL (0.00-0.02) H 10/11/21 21:45 PT 10.9 Seconds (9.0-12.0) 10/11/21 21:45 INR 1.0 (0.9-1.1) 10/11/21 21:45 APTT 24.4 Seconds (21.0-31.0) 10/11/21 21:45 PTT Ratio 0.9 10/11/21 21:45 Sodium 140 mmol/L (136-145) 10/11/21 21:45 Potassium 3.5 mmol/L (3.5-5.1) 10/11/21 21:45 Chloride 105 mmol/L (98-107) 10/11/21 21:45 Carbon Dioxide 27 mmol/L (21-32) 10/11/21 21:45 Anion Gap 8 (3-11) 10/11/21 21:45 BUN 32 mg/dl (6-23) H 10/11/21 21:45 Creatinine 1.84 mg/dl (0.6-1.4) H 10/11/21 21:45 Est Cr Clr Drug Dosing Not Reportable 10/11/21 21:45 Est GFR ( Amer) 37.9 ml/min 10/11/21 21:45 Est GFR (Non-Af Amer) 32.7 ml/min 10/11/21 21:45 BUN/Creatinine Ratio 17.4 (10-20) 10/11/21 21:45 Glucose 50 mg/dl (70-99(Fasting)) L* 10/11/21 21:45 POC Glucose 223 mg/dl (70-99) H 10/12/21 01:17 Calcium 8.8 mg/dl (8.5-10.1) 10/11/21 21:45 Total Bilirubin 0.4 mg/dl (0.2-1.0) 10/11/21 21:45 AST 19 U/L (13-39) 10/11/21 21:45 ALT 14 U/L (7-52) 10/11/21 21:45 Alkaline Phosphatase 62 U/L (34-104) 10/11/21 21:45 Troponin I High Sens 7.2 pg/ml (0-20) 10/11/21 21:45 Total Protein 6.2 gm/dl (6.0-8.3) 10/11/21 21:45 Albumin 3.8 gm/dl (3.4-5.0) 10/11/21 21:45 Globulin 2.4 gm/dl (2.5-4.0) L 10/11/21 21:45 Albumin/Globulin Ratio 1.6 (0.9-2) 10/11/21 21:45 Lipase 44 U/L (11-82) 10/11/21 21:45 SARS-CoV-2, RNA, NAAT NEGATIVE (NEGATIVE) 10/11/21 23:21 Code Status & VTE Plan VTE Prophylaxis Plan VTE Prophylaxis will be ordered: Yes PG Care Time/CCT Total # of Minutes Spent Total Time Spent with Patient: Total time spent is greater than 50% in coordination of care (as documented) at patient's floor/unit and/or counseling patient: Coding Level of Care Code 50205 Initial Inpt Care Lvl 3 Diagnoses Hypoglycemia E16.2 Chronic kidney disease N18.9 Benign prostatic hyperplasia with urinary obstruction N40.1; N13.8 COPD (chronic obstructive pulmonary disease) J44.9 COPD type: unspecified COPD Hypothyroidism E03.9 Hypothyroidism type: unspecified Hypertension I10 Hypertension type: essential hypertension CAD (coronary artery disease) I25.10 Coronary Disease-Associated Artery/Lesion type: [place] artery [place] vs. transplanted heart: [place] heart Associated angina: without angina Diabetes E11.65; Z79.4 Diabetes mellitus type: type 2 Diabetes mellitus detention insulin use: with terminal supervisor use Diabetes mellitus complication status: with hyperglycemia (1) COPD (chronic obstructive pulmonary disease) COPD type: unspecified COPD Qualified Code(s): J44.9 - Chronic obstructive pulmonary disease, unspecified (2) Hypothyroidism Hypothyroidism type: unspecified Qualified Code(s): E03.9 - Hypothyroidism, unspecified (3) Hypertension Hypertension type: essential hypertension Qualified Code(s): I10 - Essential (primary) hypertension (4) CAD (coronary artery disease) Coronary Disease-Associated Artery/Lesion type: [place] artery [place] vs. transplanted heart: [place] heart Associated angina: without angina Qualified Code(s): I25.10 - Atherosclerotic heart disease of [place] coronary artery without angina pectoris (5) Diabetes Diabetes mellitus type: type 2 Diabetes mellitus detention insulin use: with terminal supervisor use Diabetes mellitus complication status: with hyperglycemia Qualified Code(s): E11.65 - Type 2 diabetes mellitus with hyperglycemia; Z79.4 - keno terminal operator (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
[2021-10-12] MEDS ORDERED: CARBOHYDRATES FOR HYPOGLYCEMIA PO PRN (03:10)
[2021-10-12] MEDS ORDERED: ACETAMINOPHEN 325 MG TAB PO PRN (03:10)
[2021-10-12] MEDS ORDERED: GLUCAGON FOR INJ 1 MG VIAL SQ PRN (03:10)
[2021-10-12] MEDS ORDERED: GLUCOSE 10 TABS/TUBE PO PRN (03:10)
[2021-10-12] MEDS ORDERED: ALBUTEROL HFA 8 GM INHALER INH PRN (03:10)
[2021-10-12] MEDS ORDERED: PHARMACY GLYCEMIC MGMT CONSULT PRN (03:10)
[2021-10-12] MEDS ORDERED: DEXTROSE 50% 50 ML SYRINGE IV PRN (03:10)
[2021-10-12] MEDS ORDERED: GLUCOSE 40% GEL 15 GM TUBE PO PRN (03:10)
[2021-10-12] MEDS ORDERED: LEVOTHYROXINE SODIUM 88 MCG TABLET PO SCH (06:30)
--- NOTE | 2021-10-12 07:24 | XRay Report ---
XR chest 1V portable CLINICAL HISTORY: Atypical chest pain. COMPARISON STUDY: Chest radiograph December 16, 2020 FINDINGS: Median sternotomy wires are noted. No pneumothorax or pleural fusion. Subtle interstitial t hickening is unchanged. Cardiomegaly is noted. There is no consolidation to suggest pneumonia. IMPRESSION: No acute cardiopulmonary findings. No change in mild interstitial thickening. ACT 112: Negative or not required by law. Electronically signed by: Colin Cannon M.D. 10/12/2021 7:23 AM
[2021-10-12 07:39] LABS: Estimated Average Glucose 232 mg/dl; Hemoglobin A1C 9.7 % (4.5-5.6)
--- NOTE | 2021-10-12 08:15 | CT Scan Report ---
CT OF THE HEAD WITHOUT CONTRAST CLINICAL HISTORY: Weakness. COMPARISON STUDY: Head CT February 03, 2020. CT DOSE: 773.57 mGy.cm TECHNIQUE: Helical axial images of the head were obtained without IV contrast. Automated exposure con trol was utilized for the study. A dose lowering technique was utilized adhering to the principles o f ALARA. FINDINGS: No acute intracranial hemorrhage, midline shift or mass effect is present. The ventricular system is unremarkable. The basal cisterns are patent. No extra-axial collections are present. There are no findings to suggest acute dural sinus thrombosis or acute territorial infarct. No significant calvarial abnormalities are present. Minimal ethmoid sinus mucosal thickening is present. IMPRESSION: No acute intracranial findings. No change in appearance of the brain. ACT 112: Negative or not required by law. Electronically signed by: Colin Cannon M.D. 10/12/2021 8:13 AM
[2021-10-12] MEDS: POTASSIUM CHLORIDE CRTAB 20 MEQ TABCR PO SCH ×2 (08:29→12:30)
[2021-10-12] MEDS: INSULIN ASPART PER UNIT SC SCH ×2 (08:39→12:29)
[2021-10-12] MEDS ORDERED: HEPARIN SOD 5,000 UNIT/0.5 ML VIAL SQ SCH (09:00)
[2021-10-12] MEDS ORDERED: METOPROLOL TARTRATE 25 MG TAB PO SCH (09:00)
[2021-10-12] MEDS ORDERED: LOSARTAN POTASSIUM 25 MG TAB PO SCH (09:00)
[2021-10-12] MEDS ORDERED: amLODIPine BESYLATE 5 MG TAB PO SCH (09:00)
[2021-10-12] MEDS ORDERED: PANTOprazole 40 MG TAB PO SCH (09:00)
[2021-10-12] MEDS ORDERED: BUDESONIDE/FORMOTEROL FUMARATE 160/4.5 60 PUFFS/INHALER INH SCH (09:00)
[2021-10-12] MEDS ORDERED: CLOPIDOGREL BISULFATE 75 MG TAB PO SCH (09:00)
[2021-10-12] MEDS ORDERED: BUMETANIDE 1 MG TAB PO SCH (09:00)
[2021-10-12] MEDS ORDERED: INSULIN GLARGINE SOLOSTAR 100 UNITS/ML 3 ML PEN SC SCH ×2 (09:00→21:00)
[2021-10-12] MEDS ORDERED: FLUTICASONE/VILANTEROL 200/25MCG 14 PUFFS/INHALER INH SCH (09:00)
[2021-10-12] MEDS ORDERED: UMECLIDINIUM BROMIDE 62.5MCG/BLISTER 7 PUFFS/INHALER INH SCH (09:00)
[2021-10-12] MEDS ORDERED: GABAPENTIN 100 MG CAP PO SCH (09:00)
[2021-10-12] MEDS ORDERED: clonazePAM 0.25 MG TAB PO SCH (09:00)
[2021-10-12] MEDS ORDERED: DOCUSATE SODIUM 100 MG CAP PO SCH (09:00)
[2021-10-12] MEDS ORDERED: ASPIRIN 81 MG ECTAB PO SCH (09:00)
--- NOTE | 2021-10-12 09:36 | Pharmacy Report ---
Pharmacy Glycemic Short Note 2 - Date of Service October 12, 2021 - Glycemic Short BSG Results (Last 24 hours): 10/11/21 10/11/21 10/11/21 21:45 21:53 22:21 Glucose 50 L* POC Glucose 58 L* 187 H 10/11/21 10/12/21 10/12/21 23:04 00:06 01:17 Glucose POC Glucose 146 H 113 H 223 H 10/12/21 10/12/21 10/12/21 03:30 05:30 07:31 Glucose POC Glucose 231 H 207 H 204 H OUTPATIENT ANTIDIABETIC REGIMEN: * Lantus 26 units SC BID * Glipizide 10 mg PO BID * HbA1c: 9.7% (10/12/21) ASSESSMENT: * YURI is a 85 year old male who presented to ED with symptomatic hypoglycemia (BSG 58 mg/dL) * HbA1c of 9.7%, patient will likely require adjustment to antidiabetic regimen at discharge to improve glycemic control and limit hypoglycemia * Sulfonylureas (i.e. glipizide) associated with greater risk of hypoglycemia especially when used in combination with insulin * Will initiate insulin using insulin calculator (~weight-based, stress of 2 dosing) PLAN FOR INPATIENT GLYCEMIC CONTROL: * Hold outpatient oral diabetes medications * Basal insulin * Lantus 15-20 units SC BID (see EHR for details) * Bolus insulin * NovoLog per scale ACHS or Q6hrs while NPO * Goal Range: Low 110 mg/dL - High 140 mg/dL * Correction Factor: 25 mg/dL/unit * Nutritional / Prandial insulin per carb ratio of 1 unit per 8 grams CHO consumed
[2021-10-12 10:01] LABS: Basophils # (auto) 0.01 K/uL (0-0.2); Basophils % (auto) 0.2 %; Eosinophils # (auto) 0.12 K/uL (0-0.5); Eosinophils % (auto) 1.8 %; Hematocrit (blood only) 37.6 % (42-52); Hemoglobin 12.5 g/dL (14.0-18.0); Immature Granulocytes # (auto) 0.03 K/uL (0.00-0.02); Immature Granulocytes % (auto) 0.5 %; Lymphocytes # (auto) 1.81 K/uL (1.2-3.4); Lymphocytes % (auto) 27.8 %; Mean Corpuscular Hemoglobin 30.6 pg (25-34); Mean Corpuscular Volume 92.2 fL (80-100); Mean Platelet Volume 9.4 fL (7.4-10.4); Monocytes % (auto) 6.2 %; Neutrophils # (auto) 4.13 K/uL (1.4-6.5); Neutrophils % (auto) 63.5 %; Platelet Count 138 K/uL (130-400); RDW Coefficient of Variation 13.7 % (11.5-14.5); RDW Standard Deviation 46.2 fL (36.4-46.3); Red Blood Count 4.08 M/uL (4.7-6.1)
[2021-10-12 10:04] LABS: Mean Corpuscular Hgb Conc 33.2 g/dL (32-36)
--- NOTE | 2021-10-12 10:04 | Electrocardiogram Report ---
Test Reason : Blood Pressure : / mmHG Vent. Rate : 055 BPM Atrial Rate : 055 BPM P-R Int : 250 ms QRS Dur : 174 ms QT Int : 522 ms P-R-T Axes : 033 -53 014 degrees QTc Int : 499 ms Sinus bradycardia with 1st degree A-V block Left axis deviation Right bundle branch block Abnormal ECG When compared with ECG of 16-DEC-2020 16:32, No significant change was found Confirmed by Travis Holloway ([id number]) on 10/12/2021 10:04:08 AM Referred By: REFERRED SELF Confirmed By:Asim Holloway
[2021-10-12 10:40] LABS: BUN Creatinine Ratio 18.8 (10-20); Calcium 8.8 mg/dl (8.5-10.1); Creatinine Clr Calc Pharmacy 33.6 ml/min; Est GFR (Non-African American) 34.5 ml/min; Potassium 4.3 mmol/L (3.5-5.1)
--- NOTE | 2021-10-12 11:50 | Discharge Summary ---
Date of Service October 12, 2021 Admission HPI Per Admitting Provider Aj Monroy is an 85-year-old male with history of multiple medical problems to include type 2 diabetes on insulin therapy, hypertension, hyperlipidemia, CAD, CKD, hypothyroidism and GERD presenting with hypoglycemia. Patient reports having dinner at [employer] this evening around 1900. He had sun, eggs and dessert. He took his glipizide after his meal (typically takes it 15 minutes prior to eating however, when he forgets he will occasionally take it after his meal). He went to lay down and his noticed that he was disoriented and perspiring. She did not check his blood sugar gave him orange juice and a peanut butter cup and called EMS. Blood sugar by EMS was found to be 51. They gave him 2 squirts of oral glucose which increased his blood sugar to 79. Upon arrival to the ER patient afebrile, hemodynamically stable. Blood sugar found to be 58. Patient was administered 1 amp of D50. Repeat blood sugar = 187--> 146--> 113--> 223 Patient checks his blood sugar q. morning and reports that the average over the past 12 days has been 125. He does report "a couple" lows over the last 12 days in the 60s. He drinks juice and eats a snack if he gets a low reading and typically feels better quickly. He reports taking glipizide 10 mg p.o. twice daily 15 minutes before his meal. He also takes Lantus 54 units in the morning and 44 units in the evening. [facility] course: D50 x1 amp Principal Diagnosis Hypoglycemia Discharge Exam GENERAL: 85 yo well-developed, well-nourished elderly WM. NAD. LUNGS: Clear to auscultation bilaterally. No W/R/R. CARDIOVASCULAR: Regular rate and rhythm. No M/G/R. No JVD. ABDOMEN: Soft, non-tender and non-distended. BS normal x 4 quad. EXTREMITIES: No edema. Non-tender. Peripheral pulses +2/4. NEUROLOGIC: A&O x3. PSYCHIATRIC: Cooperative. Appropriate mood and affect. SKIN: Warm, dry, intact. No rashes or lesions. Discharge Data Allergies Allergy/AdvReac Type Severity Reaction Status Date / Time ropinirole AdvReac Intermediate CHANGE IN Verified 10/11/21 22:15 MENTAL STATUS Consultations 10/12/21 00:05 ED Decision to Admit Stat Ordered Studies Chest X-Ray 10/11/21 22:12 XR chest 1V portable CLINICAL HISTORY: Atypical chest pain. COMPARISON STUDY: Chest radiograph December 16, 2020 FINDINGS: Median sternotomy wires are noted. No pneumothorax or pleural fusion. Subtle interstitial thickening is unchanged. Cardiomegaly is noted. There is no consolidation to suggest pneumonia. IMPRESSION: No acute cardiopulmonary findings. No change in mild interstitial thickening. ACT 112: Negative or not required by law. Electronically signed by: Colin Cannon M.D. 10/12/2021 7:[address] 10/11/21 22:12 CT OF THE HEAD WITHOUT CONTRAST CLINICAL HISTORY: Weakness. COMPARISON STUDY: Head CT February 03, 2020. CT DOSE: 773.57 mGy.cm TECHNIQUE: Helical axial images of the head were obtained without IV contrast. Automated exposure control was utilized for the study. A dose lowering tech nique was utilized adhering to the principles of ALARA. FINDINGS: No acute intracranial hemorrhage, midline shift or mass effect is present. The ventricular system is unremarkable. The basal cisterns are patent. No extra-axial collections are present. There are no findings to suggest acute dural sinus thrombosis or acute territorial infarct. No significant calvarial abnormalities are present. Minimal ethmoid sinus mucosal thickening is present. IMPRESSION: No acute intracranial findings. No change in appearance of the brain. ACT 112: Negative or not required by law. Electronically signed by: Colin Cannon M.D. 10/12/2021 8:13 AM Hospital Course (1) Hypoglycemia: Patient hypoglycemic upon arrival. He is on an aggressive insulin regimen including glipizide 10 mg p.o. twice daily as well as Lantus 54 units in the morning and 44 units in the evening (per patient history). No recent hemoglobin A1c on record at [facility]. Admitted to medical overnight Hemoglobin A1c obtained and came back at 9.7% His glipizide and Lantus were placed on hold Insulin sliding scale with goal blood sugar 120-180 Pharmacy consulted for glycemic management Patient admits that he took his glipizide at the same time as his Lantus and knew that he was not supposed to do this He has been stable on this regimen for several years and follows closely with his healthcare provider He has had no further episodes of hypoglycemia since admission and is ready for discharge (2) Chronic kidney disease: BUN and creatinine near baseline Avoid nephrotoxic agents Repeat chemistry this morning demonstrates stable kidney function (3) Benign prostatic hyperplasia with urinary obstruction: Chronic. Stable on medications Continue finasteride Continue tamsulosin (4) COPD (chronic obstructive pulmonary disease): No cough, shortness of breath or wheeze. Adequate oxygenation on room air Continue tiotropium Continue budesonideformoterol Continue albuterol as needed (5) Hypothyroidism: Chronic. Check TSH Continue Synthroid (6) Hypertension: Blood pressure stable at present Continue amlodipine Continue losartan Continue metoprolol (7) CAD (coronary artery disease): Chronic. Stable. Patient denies chest pain. She does have stable dyspnea on exertion Continue aspirin, Plavix, metoprolol, losartan (8) Diabetes: Presenting with hypoglycemia Holding oral medications and home insulin Managed with insulin sliding scale for now Plan hemodynamically stable for discharge. Reminded patient to ensure that he takes his glipizide with his dinner and does not take at the same time as his insulin. He verbalized understanding. Advise follow-up with his primary care physician within 1 week of discharge or sooner if needed. He can continue his medications as prescribed prior to the hospitalization. Above plan of care has been discussed with Dr. Vern Hurtado who is in agreement. Total Time Total Time Spent Total Time Spent (In Minutes): Greater than 30 minutes Discharge Plan Discharge Items Patient Disposition: Home - Self-Care Reason For Visit: HYPOGLYCEMIA Discharge Diagnosis: Hypoglycemia Activity: Resume your previous activity Non-emergency contact: Primary Care Provider Call non-emergency contact if: you have any medication questions and your symptoms worsen Follow-up/Referrals: Cory Nunez DO [Primary Care Provider] - 10/14/21 10:30 am Diet: Carb Consistent or DM2 Addtl Attending Provider Instructions: You were admitted due to low blood sugar. This occurred due to taking your glipizide at the same time as your evening dose of Lantus. It is important to remember going forward not to take these 2 medications at the same time. You may resume your medications as prescribed prior to being admitted to the hospital. No changes have been made. Continue Lantus 44 units at bedtime and Lantus 52 units in the morning before breakfast. I would recommend continuing to check your blood sugar as directed by your healthcare provider. Follow-up with your family doctor within 1 week of discharge from the hospital. In the event of any questions or concerns please contact the nonemergency number listed on your discharge paperwork. In the event of a medical emergency, please call 911. Pending Studies at Discharge: No Stand-Alone Forms: My [facility] CS Disco, Smoking Cessation Medications and DC Order Prescriptions: New Lantus Solostar U-100 Insulin 100 unit/mL (3 mL) insulin pen 44 unit subcut PM Qty: 3 RF: 0 Continued amlodipine 10 mg tablet 10 mg PO DAILY Qty: 90 RF: 3 clopidogrel 75 mg tablet 75 mg PO QAM 90 Days Qty: 90 RF: 3 docusate sodium 100 mg capsule 200 mg PO BID RF: 0 metoprolol tartrate 25 mg tablet 25 mg PO BID Qty: 90 RF: 0 multivitamin [Daily Multi-Vitamin] tablet 1 tab PO DAILY RF: 0 Spiriva with HandiHaler 18 mcg capsule, w/inhalation device 1 cap inhalation DAILY Qty: 90 RF: 0 levothyroxine 88 mcg tablet 88 mcg PO QAM Qty: 90 RF: 0 albuterol sulfate 90 mcg/actuation HFA aerosol inhaler 2 puffs inhalation QID PRN (Reason: shortness of breath or wheezing) RF: 0 Symbicort 160-4.5 mcg/actuation HFA aerosol inhaler 2 puffs inhalation BID RF: 0 potassium chloride 20 mEq tablet extended release 20 meq PO TID RF: 0 gabapentin 100 mg capsule 100 mg PO QAM Qty: 30 RF: 0 clonazepam 0.5 mg tablet 0.25 mg PO BID RF: 0 Ocuvite Adult 50 Plus 250-5-1 mg Capsule 1 cap PO DAILY RF: 0 Fiber Gummies 2 gram Tablet,Chewable 2 g PO DAILY RF: 0 tamsulosin 0.4 mg capsule 0.4 mg PO HS RF: 0 losartan 25 mg tablet 25 mg PO QAM RF: 0 finasteride 5 mg tablet 5 mg PO HS RF: 0 pantoprazole 20 mg Tablet,Delayed Release (Dr/Ec) 20 mg PO DAILY RF: 0 bumetanide 1 mg Tablet 3 mg PO BID RF: 0 clonazepam 0.5 mg tablet 0.5 mg PO QPM RF: 0 diphenhydramine HCl 25 mg Tablet 25 mg PO BID PRN (Reason: Allergy Symptoms) RF: 0 gabapentin 100 mg Capsule 300 mg PO HS RF: 0 glipizide 10 mg tablet 10 mg PO BID RF: 0 aspirin 81 mg Tablet,Delayed Release (Dr/Ec) 81 mg PO DAILY RF: 0 Unknown Statin Medication 1 tab PO HS RF: 0 Changed Lantus Solostar U-100 Insulin 100 unit/mL (3 mL) Insulin Pen 52 unit SUBCUT DAILY Qty: 0 RF: 0 Discharge Orders: Discharge Order (Routine); Ordered 10/12/21 Ordered By: Kellen Li Admission Data Admit Date/Time: 10/12/21 01:07 Attending Provider: Vern Hurtado Admit Provider: Arlen Gaitan Primary Care Provider: Cory Nunez Other Providers: Vern Hurtado Other Interventions: Discharge Summary Assessment (RN) Last Done: 10/12/21 11:09 Supervising Physician Co-Signing Physician Notes I supervised Kellen Li PA-C on the care of this patient. I did not see the patient as he was seen within the last 24 hours by the attending. The plan is as written in her note except for any following changes/exceptions: None Transient hypoglycemia due to medication. He knows his mistake and will avoid it in the future. Coding Level of Care Code D/C DAY MANAGEMENT >30 MINS Diagnoses Hypoglycemia E16.2 Chronic kidney disease N18.9 Benign prostatic hyperplasia with urinary obstruction N40.1; N13.8 COPD (chronic obstructive pulmonary disease) J44.9 COPD type: unspecified COPD Hypothyroidism E03.9 Hypothyroidism type: unspecified Hypertension I10 Hypertension type: essential hypertension CAD (coronary artery disease) I25.10 Associated angina: without angina Coronary Disease-Associated Artery/Lesion type: [place] artery [place] vs. transplanted heart: [place] heart Diabetes E11.65; Z79.4 Diabetes mellitus complication status: with hyperglycemia Diabetes mellitus fpc insulin use: with fpc use Diabetes mellitus type: type 2
[2021-10-12] MEDS ORDERED: clonazePAM 0.5 MG TAB PO SCH (21:00)
[2021-10-12] MEDS ORDERED: GABAPENTIN 300 MG CAP PO SCH (21:00)
[2021-10-12] MEDS ORDERED: TAMSULOSIN HCL 0.4 MG CAP PO SCH (21:00)
== END 2021-10-12 14:03 | disposition home or self-care (01) ==
LOC: ED 21:42 → INTOOBSV 10-12 01:07 → 3E 10-12 01:07 → SUATTDRO 10-12 01:07 → 3E 10-12 02:28

== ENCOUNTER 2021-12-13 17:22 | Inpatient (IN) ==
[2021-12-13 18:34] LABS: Basophils # (auto) 0.04 K/uL (0-0.2); Basophils % (auto) 0.5 %; Eosinophils # (auto) 0.13 K/uL (0-0.50); Eosinophils % (auto) 1.5 %; Hematocrit (blood only) 42.4 % (40.1-51.0); Hemoglobin 14.3 g/dl (14.0-18.0); Immature Granulocytes # (auto) 0.09 K/uL (0.00-0.02); Lymphocytes # (auto) 2.21 K/uL (1.2-3.4); Lymphocytes % (auto) 25.3 %; Mean Corpuscular Hemoglobin 31.4 pg (25.0-34.0); Mean Corpuscular Hgb Conc 33.7 g/dL (32.0-36.0); Mean Platelet Volume 9.3 fL (9.4-12.4); Monocytes % (auto) 6.9 %; Neutrophils # (auto) 5.67 K/uL (1.4-6.5); Neutrophils % (auto) 64.8 %; Platelet Count 175 K/uL (130-400); RDW Coefficient of Variation 13.5 % (11.5-14.5); RDW Standard Deviation 45.7 fL (36.4-46.3); Red Blood Count 4.56 M/uL (4.63-6.08); White Blood Count 8.74 K/ul (4.8-10.8)
[2021-12-13 18:52] LABS: Albumin Globulin Ratio 1.2 (0.9-2); Albumin Level 4.3 gm/dl (3.4-5.0); BUN Creatinine Ratio 24.9 (10-20); Bilirubin,Total 0.6 mg/dl (0.2-1.0); Calcium 9.9 mg/dl (8.5-10.1); Creatinine Clr Calc Pharmacy 25.7 ml/min; Est GFR (African American) 29.5 ml/min; Est GFR (Non-African American) 25.5 ml/min; Globulin 3.7 gm/dl (2.5-4.0); Potassium 4.3 mmol/L (3.5-5.1)
[2021-12-13] MEDS ORDERED: cefTRIAXone SODIUM 2,000 MG/70 ML BAG IV STA (19:26)
--- NOTE | 2021-12-13 19:29 | Emergency Department Note ---
Impression & Plan Cellulitis, Peripheral vascular disease ED Provider Note NAME: BRIAN NEWMAN AGE: 86 SEX: M : 1935 ARRIVES VIA: Walk-In INFORMANT: Patient, ED PROVIDER(S): Dallin Joaquin DO CHIEF COMPLAINT: Cellulitis HPI: The patient is an 86-year-old male who presented to the emergency department at the request of his primary care physician to be admitted for IV antibiotics. The patient has been on antibiotics for over a week. He was initially seen in our facility approximately 8 days ago. At that time he was treated with IV antibiotics. He was placed on oral antibiotics. Initially he started to improve but then symptoms started to worsen. He was seen by his primary care physician today because of worsening symptoms as well as a follow- up appointment. The patient was sent directly to the emergency department to be admitted for further inpatient management and IV antibiotics. The patient denies having any fever. He said no chest pain or difficulty breathing. He does notice lower extremity swelling bilaterally left greater than right. He has had no reactions to the antibiotics he was taking he states has been compliant with his outpatient medication regimen. ROS: See above HPI for pertinent positives & negatives. A total of 10 systems reviewed and were otherwise negative. PAST MEDICAL HISTORY: See Below PAST SURGICAL HISTORY: See Below FAMILY HISTORY: See Below SOCIAL HISTORY: See Below HOME MEDICATIONS: See Below ALLERGIES: See Below VITALS: See Below PHYSICAL EXAMINATION: GENERAL: Patient is awake alert in no acute distress patient is resting comfortably and showing no signs of anxiety EYES: The conjunctivae are clear. The pupils are round and reactive. EARS, NOSE, MOUTH AND THROAT: The nose is without any evidence of any deformity. NECK: The neck is nontender and supple. RESPIRATORY: Normal respiratory effort is noted there is no evidence of wheezing rhonchi or rales CARDIOVASCULAR: Regular rate and rhythm noted there no murmurs rubs or gallops normal S1 normal S2. GASTROINTESTINAL: The abdomen is soft. Abdomen is nontender. MUSCULOSKELETAL/EXTREMITIES: There is no evidence of gross deformity full range of motion is noted in the hips and shoulders. SKIN: There is bilateral pedal edema noted. There is significant swelling as well as erythema noted on the left foot. There is also erythema noted on the dorsum of the right foot. Erythema on the left leg extends into the calf NEUROLOGIC: Patient is awake alert and oriented x3 MEDICAL DECISION MAKING: The patient is an 86-year-old male who presented to the emergency department for an evaluation of lower extremity swelling and redness. The patient was felt to have cellulitis and was started on antibiotics. His condition started to worsen. He followed up with his family doctor today and was sent to the emergency department for further evaluation as well as possible inpatient management and IV antibiotics. I discussed patient's laboratory results with him. I discussed his condition with the on-call [facility] hospitalist. They have agreed to evaluate the patient in the emergency department for further management and disposition. The patient was treated with IV antibiotics in the ER. Triage Nursing notes reviewed. Prior medical records reviewed Vital Signs: reviewed and remarkable for elevated blood pressure. Differential diagnosis: Cellulitis, abscess, MRSA infection, DVT, necrotizing fasciitis, dermatitis, drug eruption, allergic reaction, as well as other pathologies. ER treatment provided: See below Diagnostics interpreted by me: ECG: none Laboratory studies: As stated above and show below. Imaging studies: See below Consultation(s): I discussed this case with Dr. [facility] Past Med/Surg History Medical History Acute bronchopneumonia Acute urinary retention Anxiety Aortic stenosis Mild per 03/06/19 stress ECHO Asthma Uses rescue inhaler a couple times per week Atrial fibrillation Follows with Dr. Gr Bacteremia Blindness of left eye BPH (benign prostatic hyperplasia) CAD (coronary artery disease) Angioplasty ~1993, CABG x 3 2013 (GALINDO to LAD, SVG to PDA, SVG to OM) CHF (congestive heart failure) Chronic kidney disease Follows with Dr. Dixon Chronic obstructive pulmonary disease Diabetes Type 2 IDDM Foot ulcer GERD (gastroesophageal reflux disease) Herpes zoster Hiatal hernia Hyperlipidemia Hypertension Hypervolemia Hypothyroidism Leukocytosis Macular degeneration Myocardial infarct ~1993 Peripheral neuropathy Rupture of left distal biceps tendon hx - no surgery Secondary hyperparathyroidism (of renal origin) SIRS (systemic inflammatory response syndrome) Surgical History Fusion of spine lumbar History of appendectomy History of cardiac cath with angioplasty ~1993 ([facility]) & 2013 ([facility]) History of cataract surgery bilateral History of coronary artery bypass graft x3 vessels ([facility] 2013) with epicardial RFA of pulmonary veins and left atrial appendage ligation History of revision of total replacement of right knee joint History of tonsillectomy History of tooth extraction History of total left knee replacement History of total right knee replacement Hx of colonoscopy Previous back surgery (08/26/12) S/P cholecystectomy Family History Brother Heart disease Diabetes Sister Cancer Mother Diabetes Father Diabetes Other Hypertension Kidney disease Social History Smoking Status: Former smoker Tobacco Type: Cigarettes Second Hand Exposure: No; Hx Alcohol Use: No Hx Substance Use: No Preferred Language: Tajik Communication Ability: Effective Visual Impairment: Partially Limited Supervisor Plastics Required: No Beliefs That Will Affect Care: None marital status: Current Living Situation: Spouse Current Living Situation Comment: apartment, 1 level current occupational status: retired Feels Safe at Home: Yes Assistive Devices: Denture - Upper, Glasses and Walker Allergies Allergies Allergy/AdvReac Type Severity Reaction Status Date / Time ropinirole AdvReac Intermediate CHANGE IN Verified 12/13/21 21:22 MENTAL STATUS Home Meds Home Medications Medication Instructions Recorded Confirmed albuterol sulfate 90 mcg/actuation 2 puffs inhalation QID PRN 01/10/19 12/13/21 aerosol inhaler shortness of breath or wheezing budesonide-formoterol HFA 160 2 puffs inhalation BID 01/10/19 12/13/21 mcg-4.5 mcg/actuation aerosol inhaler (Symbicort) docusate sodium 100 mg capsule 200 mg PO BID 01/10/19 12/13/21 levothyroxine 88 mcg tablet 88 mcg PO DAILYBB #90 tabs 01/10/19 12/13/21 metoprolol tartrate 25 mg tablet 25 mg PO BID #90 tabs 01/10/19 12/13/21 multivitamin (Daily Multi-Vitamin) 1 tab PO DAILY 01/10/19 12/13/21 potassium chloride 20 mEq 20 meq PO TID 01/10/19 12/13/21 tablet,extended release tiotropium bromide 18 mcg capsule 1 cap inhalation DAILY #90 01/10/19 12/13/21 with inhalation device (Spiriva inhalations with HandiHaler) finasteride 5 mg tablet 5 mg PO HS 04/23/19 12/13/21 inulin 2 gram chewable tablet 2 g PO DAILY 04/23/19 12/13/21 (Fiber Gummies) losartan 25 mg tablet 25 mg PO QAM 04/23/19 12/13/21 tamsulosin 0.4 mg capsule 0.4 mg PO HS 04/23/19 12/13/21 vit C,E,zinc,copper-bqbid3a 250 1 cap PO DAILY 04/23/19 12/13/21 mg-lutein 5 mg-zeaxanthin 1 mg capsule (Ocuvite Adult 50 Plus) gabapentin 100 mg capsule 100 mg PO QAM #30 caps 02/21/20 12/13/21 clonazepam 0.5 mg tablet 0.25 mg PO BID 03/16/20 12/13/21 bumetanide 1 mg tablet 3 mg PO BID 12/16/20 12/13/21 clonazepam 0.5 mg tablet 0.5 mg PO QPM 12/16/20 12/13/21 diphenhydramine HCl 25 mg tablet 25 mg PO BID PRN Allergy Symptoms 12/16/20 12/13/21 gabapentin 100 mg capsule 300 mg PO HS 12/16/20 12/13/21 glipizide 10 mg tablet 10 mg PO BID 12/16/20 12/13/21 pantoprazole 20 mg tablet,delayed 20 mg PO DAILY 12/16/20 12/13/21 release Unknown Statin Medication 1 tab PO HS 10/11/21 12/13/21 aspirin 81 mg tablet,delayed 81 mg PO DAILY 10/11/21 12/13/21 release amlodipine 5 mg tablet 5 mg PO DAILY 12/13/21 12/13/21 doxycycline hyclate 100 mg capsule 100 mg PO BID 12/13/21 12/13/21 insulin glargine 100 unit/mL (3 40 unit subcut PM 12/13/21 12/13/21 mL) subcutaneous pen (Lantus Solostar U-100 Insulin) insulin glargine 100 unit/mL (3 54 unit subcut QAM 12/13/21 12/13/21 mL) subcutaneous pen (Lantus Solostar U-100 Insulin) Previous Rx's Medication Instructions Recorded clopidogrel 75 mg tablet 75 mg PO QAM 90 days #90 tabs 04/20/21 cephalexin 250 mg capsule 250 mg PO BID 10 days #20 caps 12/05/21 Results & Data (ED) Vital Signs Vital Signs - 24 hr 12/13/21 17:30 12/13/21 20:25 Temperature 36.8 C Temperature Source Temporal Artery Scan Pulse Rate 62 Pulse Rate [Apical] 60 Respiratory Rate 18 15 Blood Pressure 132/59 L Blood Pressure [Left Arm] 151/65 H Blood Pressure Mean 83 Blood Pressure Mean [Left Arm] 93 Pulse Oximetry 96 98 Oxygen Delivery Method Room Air Room Air Sepsis Recent Fever Within 48 Hours No Sepsis New/Unexplained Change in Mental Status No Sepsis Action Taken by Nursing No Action Required Home Medications Current Medication List: was personally reviewed by me Laboratory Data Attestation: I reviewed the patient's lab results. Result diagrams: 12/13/21 18:15 12/13/21 18:15 Lab Results 12/13/21 12/13/21 12/13/21 Range/Units 18:15 18:15 18:55 WBC 8.74 (4.8-10.8) K/ul RBC 4.56 L (4.63-6.08) M/uL Hgb 14.3 (14.0-18.0) g/dl Hct 42.4 (40.1-51.0) % MCV 93.0 (80.0-100.0) fL MCH 31.4 (25.0-34.0) pg MCHC 33.7 (32.0-36.0) g/dL RDW Std Deviation 45.7 (36.4-46.3) fL RDW Coeff of Adrian 13.5 (11.5-14.5) % Plt Count 175 (130-400) K/uL MPV 9.3 L (9.4-12.4) fL Immature Gran % (Auto) 1.0 % Neut % (Auto) 64.8 % Lymph % (Auto) 25.3 % [place] % (Auto) 6.9 % Eos % (Auto) 1.5 % Baso % (Auto) 0.5 % Neut # (Auto) 5.67 (1.4-6.5) K/uL Lymph # (Auto) 2.21 (1.2-3.4) K/uL [place] # (Auto) 0.60 (0.24-0.82) K/uL Eos # (Auto) 0.13 (0-0.50) K/uL Baso # (Auto) 0.04 (0-0.2) K/uL Immature Gran # (Auto) 0.09 H (0.00-0.02) K/uL ESR (0-20) mm/hr Sodium 139 (136-145) mmol/L Potassium 4.3 (3.5-5.1) mmol/L Chloride 100 (98-107) mmol/L Carbon Dioxide 31 (21-32) mmol/L Anion Gap 8 (3-11) BUN 56 H (6-23) mg/dl Creatinine 2.25 H (0.6-1.4) mg/dl Est Cr Clr Drug Dosing 25.7 ml/min Est GFR ( Amer) 29.5 ml/min Est GFR (Non-Af Amer) 25.5 ml/min BUN/Creatinine Ratio 24.9 H (10-20) Glucose 99 (70-99(Fasting)) mg/dl POC Glucose (70-99) mg/dl Lactate (0.4-2.0) mmol/L Calcium 9.9 (8.5-10.1) mg/dl Total Bilirubin 0.6 (0.2-1.0) mg/dl AST 22 (13-39) U/L ALT 17 (7-52) U/L Alkaline Phosphatase 85 (34-104) U/L C-Reactive Protein 0.60 H (0-0.5) mg/dl Total Protein 8.0 (6.0-8.3) gm/dl Albumin 4.3 (3.4-5.0) gm/dl Globulin 3.7 (2.5-4.0) gm/dl Albumin/Globulin Ratio 1.2 (0.9-2) Procalcitonin (0-0.5) ng/ml 12/13/21 12/13/21 12/13/21 Range/Units 19:45 19:51 20:25 WBC (4.8-10.8) K/ul RBC (4.63-6.08) M/uL Hgb (14.0-18.0) g/dl Hct (40.1-51.0) % MCV (80.0-100.0) fL MCH (25.0-34.0) pg MCHC (32.0-36.0) g/dL RDW Std Deviation (36.4-46.3) fL RDW Coeff of Adrian (11.5-14.5) % Plt Count (130-400) K/uL MPV (9.4-12.4) fL Immature Gran % (Auto) % Neut % (Auto) % Lymph % (Auto) % [place] % (Auto) % Eos % (Auto) % Baso % (Auto) % Neut # (Auto) (1.4-6.5) K/uL Lymph # (Auto) (1.2-3.4) K/uL [place] # (Auto) (0.24-0.82) K/uL Eos # (Auto) (0-0.50) K/uL Baso # (Auto) (0-0.2) K/uL Immature Gran # (Auto) (0.00-0.02) K/uL ESR 32 H (0-20) mm/hr Sodium (136-145) mmol/L Potassium (3.5-5.1) mmol/L Chloride (98-107) mmol/L Carbon Dioxide (21-32) mmol/L Anion Gap (3-11) BUN (6-23) mg/dl Creatinine (0.6-1.4) mg/dl Est Cr Clr Drug Dosing ml/min Est GFR ( Amer) ml/min Est GFR (Non-Af Amer) ml/min BUN/Creatinine Ratio (10-20) Glucose (70-99(Fasting)) mg/dl POC Glucose 219 H (70-99) mg/dl Lactate 2.0 (0.4-2.0) mmol/L Calcium (8.5-10.1) mg/dl Total Bilirubin (0.2-1.0) mg/dl AST (13-39) U/L ALT (7-52) U/L Alkaline Phosphatase (34-104) U/L C-Reactive Protein (0-0.5) mg/dl Total Protein (6.0-8.3) gm/dl Albumin (3.4-5.0) gm/dl Globulin (2.5-4.0) gm/dl Albumin/Globulin Ratio (0.9-2) Procalcitonin (0-0.5) ng/ml 12/13/21 Range/Units 20:25 WBC (4.8-10.8) K/ul RBC (4.63-6.08) M/uL Hgb (14.0-18.0) g/dl Hct (40.1-51.0) % MCV (80.0-100.0) fL MCH (25.0-34.0) pg MCHC (32.0-36.0) g/dL RDW Std Deviation (36.4-46.3) fL RDW Coeff of Adrian (11.5-14.5) % Plt Count (130-400) K/uL MPV (9.4-12.4) fL Immature Gran % (Auto) % Neut % (Auto) % Lymph % (Auto) % [place] % (Auto) % Eos % (Auto) % Baso % (Auto) % Neut # (Auto) (1.4-6.5) K/uL Lymph # (Auto) (1.2-3.4) K/uL [place] # (Auto) (0.24-0.82) K/uL Eos # (Auto) (0-0.50) K/uL Baso # (Auto) (0-0.2) K/uL Immature Gran # (Auto) (0.00-0.02) K/uL ESR (0-20) mm/hr Sodium (136-145) mmol/L Potassium (3.5-5.1) mmol/L Chloride (98-107) mmol/L Carbon Dioxide (21-32) mmol/L Anion Gap (3-11) BUN (6-23) mg/dl Creatinine (0.6-1.4) mg/dl Est Cr Clr Drug Dosing ml/min Est GFR ( Amer) ml/min Est GFR (Non-Af Amer) ml/min BUN/Creatinine Ratio (10-20) Glucose (70-99(Fasting)) mg/dl POC Glucose (70-99) mg/dl Lactate (0.4-2.0) mmol/L Calcium (8.5-10.1) mg/dl Total Bilirubin (0.2-1.0) mg/dl AST (13-39) U/L ALT (7-52) U/L Alkaline Phosphatase (34-104) U/L C-Reactive Protein (0-0.5) mg/dl Total Protein (6.0-8.3) gm/dl Albumin (3.4-5.0) gm/dl Globulin (2.5-4.0) gm/dl Albumin/Globulin Ratio (0.9-2) Procalcitonin < 0.05 (0-0.5) ng/ml Administered Medications Clonazepam (Clonazepam 0.25 Mg Tab) 0.25 mg PO BID [facility] Stop: 01/12/22 22:54 Last Admin: 12/14/21 01:10 Dose: Not Given Documented By: MAT Clonazepam (Clonazepam 0.5 Mg Tab) 0.5 mg PO QPM VANDANA Stop: 01/12/22 22:54 Last Admin: 12/14/21 00:13 Dose: 0.5 mg Documented By: MAT Docusate Sodium (Docusate Sodium 100 Mg Cap) 200 mg PO BID [facility] Stop: 01/12/22 22:54 Last Admin: 12/14/21 00:13 Dose: 200 mg Documented By: MAT Finasteride (Finasteride 5 Mg Tab) 5 mg PO HS [facility] Stop: 01/12/22 22:54 Last Admin: 12/14/21 00:14 Dose: 5 mg Documented By: MAT Gabapentin (Gabapentin 300 Mg Cap) 300 mg PO HS [facility] Stop: 01/12/22 22:54 Last Admin: 12/14/21 00:14 Dose: 300 mg Documented By: MAT Heparin Sodium (Porcine) (Heparin Sod 5,000 Unit/0.5 Ml Vial) 5,000 units SQ Q12 [facility]ANDANA Stop: 01/12/22 22:54 Last Admin: 12/14/21 00:15 Dose: 5,000 units Documented By: MAT Daptomycin 300 mg/ Syringe 6 mls @ 3 mls/min IV Q48H [facility]; Protocol Stop: 12/21/21 00:00 Last Admin: 12/14/21 00:15 Dose: 3 mls/min Documented By: MAT Insulin Aspart (Insulin Aspart Per Unit) 0 units SC ACHS [facility] Stop: 01/12/22 22:54 Last Admin: 12/14/21 00:11 Dose: 4 units Documented By: MAT Co-signed By: [id number] Insulin Glargine (Lantus Per Unit Charge) 30 units SQ PM [facility] Stop: 01/12/22 22:54 Last Admin: 12/14/21 00:11 Dose: 30 units Documented By: MAT Co-signed By: [id number] Metoprolol Tartrate (Metoprolol Tartrate 25 Mg Tab) 25 mg PO BID [facility]AN[facility]NA Stop: 01/12/22 22:54 Last Admin: 12/14/21 00:14 Dose: 25 mg Documented By: MAT Potassium Chloride (Potassium Chloride Crtab 20 Meq Tabcr) 20 meq PO TID [facility]ANDANA Stop: 01/12/22 22:54 Last Admin: 12/14/21 00:14 Dose: 20 meq Documented By: MAT Tamsulosin HCl (Tamsulosin Hcl 0.4 Mg Cap) 0.4 mg PO HS [facility]ANDANA Stop: 01/12/22 22:54 Last Admin: 12/14/21 00:14 Dose: 0.4 mg Documented By: MAT Discontinued Medications Ceftriaxone Sodium (Rocephin) 2,000 mg in 70 mls @ 140 mls/hr IV NOW STA Stop: 12/13/21 19:55 Last Admin: 12/13/21 20:14 Dose: Not Given Documented By: ADE Piperacillin Sod/Tazobactam Sod (Zosyn) 4.5 gm in 120 mls @ 240 mls/hr IV NOW ONE Stop: 12/13/21 20:26 Last Infusion: 12/13/21 21:19 Dose: 0 mls/hr Documented By: Admin: 12/13/21 20:21 Dose: 240 mls/hr Documented By: ADE Vancomycin HCl 2,000 mg/ (Sodium Chloride) 540 mls @ 200 mls/hr IV NOW ONE Stop: 12/13/21 22:38 Last Admin: 12/13/21 20:14 Dose: Not Given Documented By: ADE Bumetanide 2 mg/ Syringe 8 mls @ 4 mls/min IV 2315 ONE Stop: 12/13/21 23:16 Last Admin: 12/14/21 00:15 Dose: 4 mls/min Documented By: MAT Discharge Plan Visit Data Chief Complaint: Referred by Doctor Stated Complaint: CELLULITIS. DR DESOUZA REFERRED TO BE ADMITTED ED Provider: Dallin Joaquin Discharge Problem: Cellulitis, Peripheral vascular disease Patient Disposition: Admitted As Inpatient Discharge Instructions Interventions: ED Discharge Assessment Last Done: 12/13/21 21:40 : Cellulitis Qualifiers: Site of cellulitis: extremity Site of cellulitis of extremity: lower extremity Laterality: unspecified laterality Qualified Code(s): L03.119 - Cellulitis of unspecified part of limb
[2021-12-13] MEDS ORDERED: VANCOMYCIN HCL 2,000 MG in SODIUM CHLORIDE 0.9% 500 ML IV ONE (19:57)
[2021-12-13] MEDS ORDERED: PIPERACILLIN/TAZOBACTAM 4.5 GM/120 ML BAG IV ONE (19:57)
[2021-12-13] MEDS ORDERED: VANCOMYCIN CONSULT ACTIVE PRN (19:57)
--- NOTE | 2021-12-13 20:39 | History & Physical Report ---
Date of Service December 13, 2021 Assessment & Plan (1) Diabetic infection of right foot: Plan: Diabetic infection of right foot/bilateral lower extremity cellulitis- Failure of outpatient treatment with Keflex and doxycycline Since patient is diabetic, and has CKD, will place on daptomycin 4 mg kilogram IV every 24 hours and Zosyn 4.5 g IV every 8 hours. Order lower extremity arterial Dopplers to compare to that done on 12/16 Address significant lower extremity edema (2) Cellulitis: Plan: See above (3) Lower extremity edema: Plan: We will hold oral Bumex 3 mg p.o. twice daily Give first dose of Bumex 2 mg IV this evening, then placed on 2 mg IV twice daily Ejection fraction was 50.1% on resting aspect of dobutamine stress echo from 03/06/2019 Repeat echocardiogram Present on Admission?: Yes (4) CAD (coronary artery disease): Plan: CAD/hypertension/atrial fibrillation/mild aortic stenosis- The patient will be admitted to telemetry for serial cardiac enzymes, serial EKG's, cardiac rhythm monitoring and a 2-D echocardiogram with Dopplers. Continue amlodipine, aspirin, clopidogrel and metoprolol tartrate (5) Diabetes: Plan: Change insulin glargine from 54 to 40 units subcu every morning and 40 to 30 units subcu every evening Hold glipizide 10 mg p.o. twice daily Placed on Accu-Cheks before meals and at bedtime with NovoLog coverage per scale Check hemoglobin A1c (6) Mild aortic stenosis: Plan: Repeat echocardiogram to further assess (7) Chronic kidney disease: Plan: Creatinine 2.25 on admission, with range 1.58-2.07 Follow renal function panel and magnesium labs serially Hold losartan (8) Benign prostatic hyperplasia with urinary obstruction: Plan: Continue tamsulosin 0.4 mg at bedtime and finasteride 5 mg at bedtime (9) COPD (chronic obstructive pulmonary disease): Plan: Continue routine inhalers (10) Hypothyroidism: Plan: Continue levothyroxine (11) Hypertension: Plan: Continue amlodipine, aspirin (12) Dyslipidemia: Plan: Verify patient's outpatient medication, and begin when clarified (13) Paroxysmal atrial fibrillation: Plan: See above Patient is not on anticoagulation History of Present Illness Chief Complaint: The patient was referred to the emergency department for IV antibiotics, after failing treatment with oral antibiotics in the outpatient setting Primary Care Provider: Cory Nunez DO The patient is a 86-year-old male with a past medical history including CHF, CKD, mild aortic stenosis, peripheral vascular disease, BPH with LUTS, COPD, hypothyroidism, hypertension, dyslipidemia, paroxysmal atrial fibrillation, vitamin D deficiency, CAD, myocardial infarction, GERD and diabetes mellitus. The patient initially been seen in the emergency department for bilateral lower extremity cellulitis on 12/05/2021, where he received ceftriaxone 2 g IV, and then was discharged on Keflex and doxycycline orally. Patient did take his antibiotics as directed, had persistent worsening, and was referred to the ED for further treatment with IV antibiotics by his PCP. Allergies Allergy/AdvReac Type Severity Reaction Status Date / Time ropinirole AdvReac Intermediate CHANGE IN Verified 12/13/21 21:22 MENTAL STATUS Home Medications Medication Instructions Recorded Confirmed Type albuterol sulfate 90 mcg/actuation 2 puffs inhalation QID PRN 01/10/19 12/13/21 History aerosol inhaler shortness of breath or wheezing budesonide-formoterol HFA 160 2 puffs inhalation BID 01/10/19 12/13/21 History mcg-4.5 mcg/actuation aerosol inhaler (Symbicort) docusate sodium 100 mg capsule 200 mg PO BID 01/10/19 12/13/21 History levothyroxine 88 mcg tablet 88 mcg PO DAILYBB #90 tabs 01/10/19 12/13/21 History metoprolol tartrate 25 mg tablet 25 mg PO BID #90 tabs 01/10/19 12/13/21 History multivitamin (Daily Multi-Vitamin) 1 tab PO DAILY 01/10/19 12/13/21 History potassium chloride 20 mEq 20 meq PO TID 01/10/19 12/13/21 History tablet,extended release tiotropium bromide 18 mcg capsule 1 cap inhalation DAILY #90 01/10/19 12/13/21 History with inhalation device (Spiriva inhalations with HandiHaler) finasteride 5 mg tablet 5 mg PO HS 04/23/19 12/13/21 History inulin 2 gram chewable tablet 2 g PO DAILY 04/23/19 12/13/21 History (Fiber Gummies) losartan 25 mg tablet 25 mg PO QAM 04/23/19 12/13/21 History tamsulosin 0.4 mg capsule 0.4 mg PO HS 04/23/19 12/13/21 History vit C,E,zinc,copper-rxyed2g 250 1 cap PO DAILY 04/23/19 12/13/21 History mg-lutein 5 mg-zeaxanthin 1 mg capsule (Ocuvite Adult 50 Plus) gabapentin 100 mg capsule 100 mg PO QAM #30 caps 02/21/20 12/13/21 History clonazepam 0.5 mg tablet 0.25 mg PO BID 03/16/20 12/13/21 History bumetanide 1 mg tablet 3 mg PO BID 12/16/20 12/13/21 History clonazepam 0.5 mg tablet 0.5 mg PO QPM 12/16/20 12/13/21 History diphenhydramine HCl 25 mg tablet 25 mg PO BID PRN Allergy Symptoms 12/16/20 12/13/21 History gabapentin 100 mg capsule 300 mg PO HS 12/16/20 12/13/21 History glipizide 10 mg tablet 10 mg PO BID 12/16/20 12/13/21 History pantoprazole 20 mg tablet,delayed 20 mg PO DAILY 12/16/20 12/13/21 History release clopidogrel 75 mg tablet 75 mg PO QAM 90 days #90 tabs 04/20/21 12/13/21 Rx Unknown Statin Medication 1 tab PO HS 10/11/21 12/13/21 History aspirin 81 mg tablet,delayed 81 mg PO DAILY 10/11/21 12/13/21 History release cephalexin 250 mg capsule 250 mg PO BID 10 days #20 caps 12/05/21 12/13/21 Rx amlodipine 5 mg tablet 5 mg PO DAILY 12/13/21 12/13/21 History doxycycline hyclate 100 mg capsule 100 mg PO BID 12/13/21 12/13/21 History insulin glargine 100 unit/mL (3 40 unit subcut PM 12/13/21 12/13/21 History mL) subcutaneous pen (Lantus Solostar U-100 Insulin) insulin glargine 100 unit/mL (3 54 unit subcut QAM 12/13/21 12/13/21 History mL) subcutaneous pen (Lantus Solostar U-100 Insulin) Past Med/Surg History Medical History Acute bronchopneumonia Acute urinary retention Anxiety Aortic stenosis Mild per 03/06/19 stress ECHO Asthma Uses rescue inhaler a couple times per week Atrial fibrillation Follows with Dr. Gr Bacteremia Blindness of left eye BPH (benign prostatic hyperplasia) CAD (coronary artery disease) Angioplasty ~1993, CABG x 3 2013 (GALINDO to LAD, SVG to PDA, SVG to OM) CHF (congestive heart failure) Chronic kidney disease Follows with Dr. Dixon Chronic obstructive pulmonary disease Diabetes Type 2 IDDM Foot ulcer GERD (gastroesophageal reflux disease) Herpes zoster Hiatal hernia Hyperlipidemia Hypertension Hypervolemia Hypothyroidism Leukocytosis Macular degeneration Myocardial infarct ~1993 Peripheral neuropathy Rupture of left distal biceps tendon hx - no surgery Secondary hyperparathyroidism (of renal origin) SIRS (systemic inflammatory response syndrome) Surgical History Fusion of spine lumbar History of appendectomy History of cardiac cath with angioplasty ~1993 ([facility]) & 2013 ([facility]) History of cataract surgery bilateral History of coronary artery bypass graft x3 vessels ([facility] 2013) with epicardial RFA of pulmonary veins and left atrial appendage ligation History of revision of total replacement of right knee joint History of tonsillectomy History of tooth extraction History of total left knee replacement History of total right knee replacement Hx of colonoscopy Previous back surgery (08/26/12) S/P cholecystectomy Family History Brother Heart disease Diabetes Sister Cancer Mother Diabetes Father Diabetes Other Hypertension Kidney disease Social History Smoking Status: Former smoker Tobacco Type: Cigarettes Second Hand Exposure: No; Hx Alcohol Use: No Hx Substance Use: No Preferred Language: Georgian Communication Ability: Effective Visual Impairment: Partially Limited Harness Tier Required: No Beliefs That Will Affect Care: None marital status: Current Living Situation: Spouse Current Living Situation Comment: apartment, 1 level current occupational status: retired Feels Safe at Home: Yes Assistive Devices: Denture - Upper, Glasses and Walker Review of Systems Review of Systems: The patient denies chest pain, palpitations, shortness of breath, dyspnea on exertion, cough, sore throat, fevers, chills, sweats, nausea, vomiting, diarrhea , constipation, abdominal pain, pelvic pain, blood in urine or stool, dysuria, urinary frequency or urgency, lightheadedness, dizziness, headache, memory loss, loss of consciousness, abnormal bruising or bleeding, imbalance, focal weakness, numbness or tingling in arms or legs, generalized arthralgias or myalgias, back or neck pain, or night sweats. The review of systems is otherwise negative other than for that already noted above, and at least 10 systems have been reviewed. Physical Exam Physical Exam: The patient is awake, alert and oriented 3, well developed and well nourished, normocephalic and atraumatic, lying in bed and in no acute distress. HEENT--PERRL, EOMI, mucous membranes and oropharynx normal. Neck--supple. No JVD. No bruits. Thyroid normal, trachea midline, no adenopathy. Heart--normal S1 and S2. No murmurs, rubs or gallops. Lungs--clear bilaterally, no respiratory distress, no accessory muscle use. Abdomen--normal bowel sounds and soft. Nontender. Nondistended, no hernias or masses, no organomegaly. Extremities--3+ bilateral pretibial and pedal pitting edema. Erythema involving toes 2 through 5 of right foot, and mild erythema of bilateral anterior tibial surface Dermatologic--see above. Neurologic--cranial nerves II through XII grossly intact. Rheumatologic--normal range of motion. Psychiatric--normal affect. Results & Data Results & Data ([facility]) Vital Signs (Past 12 Hours) Vital Signs Temp Pulse Pulse Resp BP BP Pulse Ox 12/13/21 20:25 60 15 151/65 H 98 12/13/21 17:30 36.8 C 62 18 132/59 L 96 O2 Del Method 12/13/21 20:25 Room Air 12/13/21 17:30 Room Air Laboratory Results Laboratory Results WBC 8.74 K/ul (4.8-10.8) 12/13/21 18:15 RBC 4.56 M/uL (4.63-6.08) L 12/13/21 18:15 Hgb 14.3 g/dl (14.0-18.0) 12/13/21 18:15 Hct 42.4 % (40.1-51.0) 12/13/21 18:15 MCV 93.0 fL (80.0-100.0) 12/13/21 18:15 MCH 31.4 pg (25.0-34.0) 12/13/21 18:15 MCHC 33.7 g/dL (32.0-36.0) 12/13/21 18:15 RDW Std Deviation 45.7 fL (36.4-46.3) 12/13/21 18:15 RDW Coeff of Adrian 13.5 % (11.5-14.5) 12/13/21 18:15 Plt Count 175 K/uL (130-400) 12/13/21 18:15 MPV 9.3 fL (9.4-12.4) L 12/13/21 18:15 Immature Gran % (Auto) 1.0 % 12/13/21 18:15 Neut % (Auto) 64.8 % 12/13/21 18:15 Lymph % (Auto) 25.3 % 12/13/21 18:15 Mclennan % (Auto) 6.9 % 12/13/21 18:15 Eos % (Auto) 1.5 % 12/13/21 18:15 Baso % (Auto) 0.5 % 12/13/21 18:15 Neut # (Auto) 5.67 K/uL (1.4-6.5) 12/13/21 18:15 Lymph # (Auto) 2.21 K/uL (1.2-3.4) 12/13/21 18:15 Mclennan # (Auto) 0.60 K/uL (0.24-0.82) 12/13/21 18:15 Eos # (Auto) 0.13 K/uL (0-0.50) 12/13/21 18:15 Baso # (Auto) 0.04 K/uL (0-0.2) 12/13/21 18:15 Immature Gran # (Auto) 0.09 K/uL (0.00-0.02) H 12/13/21 18:15 ESR 32 mm/hr (0-20) H 12/13/21 20:25 Sodium 139 mmol/L (136-145) 12/13/21 18:15 Potassium 4.3 mmol/L (3.5-5.1) 12/13/21 18:15 Chloride 100 mmol/L (98-107) 12/13/21 18:15 Carbon Dioxide 31 mmol/L (21-32) 12/13/21 18:15 Anion Gap 8 (3-11) 12/13/21 18:15 BUN 56 mg/dl (6-23) H 12/13/21 18:15 Creatinine 2.25 mg/dl (0.6-1.4) H 12/13/21 18:15 Est Cr Clr Drug Dosing 25.7 ml/min 12/13/21 18:15 Est GFR ( Amer) 29.5 ml/min 12/13/21 18:15 Est GFR (Non-Af Amer) 25.5 ml/min 12/13/21 18:15 BUN/Creatinine Ratio 24.9 (10-20) H 12/13/21 18:15 Glucose 99 mg/dl (70-99(Fasting)) 12/13/21 18:15 POC Glucose 260 mg/dl (70-99) H 12/13/21 22:50 Lactate 2.0 mmol/L (0.4-2.0) 12/13/21 19:45 Calcium 9.9 mg/dl (8.5-10.1) 12/13/21 18:15 Total Bilirubin 0.6 mg/dl (0.2-1.0) 12/13/21 18:15 AST 22 U/L (13-39) 12/13/21 18:15 ALT 17 U/L (7-52) 12/13/21 18:15 Alkaline Phosphatase 85 U/L (34-104) 12/13/21 18:15 C-Reactive Protein 0.60 mg/dl (0-0.5) H 12/13/21 18:55 Total Protein 8.0 gm/dl (6.0-8.3) 12/13/21 18:15 Albumin 4.3 gm/dl (3.4-5.0) 12/13/21 18:15 Globulin 3.7 gm/dl (2.5-4.0) 12/13/21 18:15 Albumin/Globulin Ratio 1.2 (0.9-2) 12/13/21 18:15 Procalcitonin < 0.05 ng/ml (0-0.5) 12/13/21 20:25 Urine Color Yellow 12/13/21 23:15 Urine Appearance Clear (Clear) 12/13/21 23:15 Urine pH 6.0 (4.5-7.5) 12/13/21 23:15 Ur Specific Moon 1.012 (1.000-1.030) 12/13/21 23:15 Urine Protein Negative (Negative) 12/13/21 23:15 Urine Glucose (UA) Negative (Negative) 12/13/21 23:15 Urine Ketones Negative (Negative) 12/13/21 23:15 Urine Blood Negative (Negative) 12/13/21 23:15 Urine Nitrite Negative (Negative) 12/13/21 23:15 Urine Bilirubin Negative (Negative) 12/13/21 23:15 Urine Urobilinogen Negative (Negative) 12/13/21 23:15 Ur Leukocyte Esterase Negative (Negative) 12/13/21 23:15 SARS-CoV-2, RNA, NAAT NEGATIVE (NEGATIVE) 12/13/21 Unknown Code Status & VTE Plan Code Status Full code VTE Prophylaxis Plan VTE Prophylaxis will be ordered: Yes PG Care Time/CCT Total # of Minutes Spent Total Time Spent with Patient: Total time spent is greater than 50% in coordination of care (as documented) at patient's floor/unit and/or counseling patient: Coding Level of Care Code 48572 Initial Inpt Care Lvl 3 Diagnoses Diabetic infection of right foot E11.628; L08.9 Cellulitis L03.119 Laterality: unspecified laterality Site of cellulitis: extremity Site of cellulitis of extremity: lower extremity Lower extremity edema R60.0 CAD (coronary artery disease) I25.10 Coronary Disease-Associated Artery/Lesion type: [place] artery Crow vs. transplanted heart: [place] heart Associated angina: without angina Diabetes E11.65; Z79.4 Diabetes mellitus type: type 2 Diabetes mellitus ocean transportation intermediary insulin use: with ocean transportation intermediary use Diabetes mellitus complication status: with hyperglycemia Mild aortic stenosis I35.0 Chronic kidney disease N18.9 Benign prostatic hyperplasia with urinary obstruction N40.1; N13.8 COPD (chronic obstructive pulmonary disease) J44.9 COPD type: unspecified COPD Hypothyroidism E03.9 Hypothyroidism type: unspecified Hypertension I10 Hypertension type: essential hypertension Dyslipidemia E78.5 Paroxysmal atrial fibrillation I48.0 (1) Cellulitis Laterality: unspecified laterality Site of cellulitis: extremity Site of cellulitis of extremity: lower extremity Qualified Code(s): L03.119 - Cellulitis of unspecified part of limb (2) COPD (chronic obstructive pulmonary disease) COPD type: unspecified COPD Qualified Code(s): J44.9 - Chronic obstructive pulmonary disease, unspecified (3) Hypothyroidism Hypothyroidism type: unspecified Qualified Code(s): E03.9 - Hypothyroidism, unspecified (4) Hypertension Hypertension type: essential hypertension Qualified Code(s): I10 - Essential (primary) hypertension (5) CAD (coronary artery disease) Coronary Disease-Associated Artery/Lesion type: [place] artery Crow vs. 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
[2021-12-13] MEDS ORDERED: clonazePAM 0.5 MG TAB PO SCH (22:55)
[2021-12-13] MEDS ORDERED: GLUCOSE 40% GEL 15 GM TUBE PO PRN (22:55)
[2021-12-13] MEDS ORDERED: clonazePAM 0.25 MG TAB PO SCH (22:55)
[2021-12-13] MEDS ORDERED: ALBUTEROL HFA 8 GM INHALER INH PRN (22:55)
[2021-12-13] MEDS ORDERED: GLUCAGON FOR INJ 1 MG VIAL SQ PRN (22:55)
[2021-12-13] MEDS ORDERED: LANTUS PER UNIT CHARGE SQ SCH (22:55)
[2021-12-13] MEDS ORDERED: GLUCOSE 10 TAB/TUBE PO PRN (22:55)
[2021-12-13] MEDS ORDERED: ONDANSETRON INJ 2 MG/ML 2 ML VIAL IV PRN (22:55)
[2021-12-13] MEDS ORDERED: ACETAMINOPHEN 325 MG TAB PO PRN (22:55)
[2021-12-13] MEDS ORDERED: DEXTROSE 50% 50 ML SYRINGE IV PRN (22:55)
[2021-12-13] MEDS ORDERED: BUMETANIDE 2 MG in SYRINGE 0 ML IV ONE (23:15)
[2021-12-13 23:28] LABS: Appearance Urine Clear (Clear); Bilirubin Urine Negative (Negative); Blood Urine Negative (Negative); Color Urine Yellow; Glucose Urine UA Negative (Negative); Ketones Urine Negative (Negative); Leukocyte Esterase Urine Negative (Negative); Nitrite Urine Negative (Negative); Protein Urine Negative (Negative); Specific Gravity Urine 1.012 (1.000-1.030); Urobilinogen Urine Negative (Negative)
[2021-12-14] MEDS ORDERED: DAPTOmycin 300 MG in SYRINGE 0 ML IV SCH
[2021-12-14] MEDS: INSULIN ASPART PER UNIT SC SCH ×5 (00:11→21:02)
[2021-12-14] MEDS: DOCUSATE SODIUM 100 MG CAP PO SCH ×3 (00:13→21:05)
[2021-12-14] MEDS: METOPROLOL TARTRATE 25 MG TAB PO SCH ×3 (00:14→21:09)
[2021-12-14] MEDS: TAMSULOSIN HCL 0.4 MG CAP PO SCH ×2 (00:14→21:10)
[2021-12-14] MEDS: GABAPENTIN 300 MG CAP PO SCH ×2 (00:14→21:06)
[2021-12-14] MEDS: POTASSIUM CHLORIDE CRTAB 20 MEQ TABCR PO SCH ×4 (00:14→21:09)
[2021-12-14] MEDS: FINASTERIDE 5 MG TAB PO SCH ×2 (00:14→21:06)
[2021-12-14] MEDS: HEPARIN SOD 5,000 UNIT/0.5 ML VIAL SQ SCH ×3 (00:15→21:07)
[2021-12-14] MEDS: LEVOTHYROXINE SODIUM 88 MCG TABLET PO SCH (05:43)
[2021-12-14] MEDS: PIPERACILLIN/TAZOBACTAM 4.5 GM in DEXTROSE 5% 100 ML IV SCH ×3 (05:43→21:16)
--- NOTE | 2021-12-14 07:24 | Hospitalist Progress Note ---
Date of Service December 14, 2021 Assessment & Plan (1) Diabetic infection of right foot: (2) Cellulitis: (3) Lower extremity edema: (4) CAD (coronary artery disease): (5) Diabetes: (6) Mild aortic stenosis: (7) Chronic kidney disease: (8) Benign prostatic hyperplasia with urinary obstruction: (9) COPD (chronic obstructive pulmonary disease): (10) Hypothyroidism: (11) Hypertension: (12) Dyslipidemia: (13) Paroxysmal atrial fibrillation: Plan Mr. Monroy is an 86 y/o male with a PMHx including CHF, CKD, mild aortic stenosis, peripheral vascular disease, BPH with LUTS, COPD, hypothyroidism, hypertension, dyslipidemia, paroxysmal atrial fibrillation, vitamin D deficiency , CAD, myocardial infarction, GERD and diabetes mellitus.The patient initially been seen in the emergency department for bilateral lower extremity cellulitis on 12/05/2021, where he received ceftriaxone 2 g IV, and then was discharged on Keflex and doxycycline orally. Patient did take his antibiotics as directed, had persistent worsening, and was referred to the ED for further treatment with IV antibiotics by his PCP. #Cellulitis#Diabetic infection Diabetic infection/cellulitis of right foot/bilateral lower extremity - failure of outpatient treatment with Keflex and doxycycline. Since patient is diabetic, and has CKD, will place on daptomycin 4 mg kilogram IV every 24 hours and Zosyn 4.5 g IV every 8 hours. Order lower extremity arterial Dopplers to compare to that done on 12/16. Address significant lower extremity edema [] continue daptomycin 4 mg/kg IV Q24 and Zosyn 4.5 g IV Q8 - f/u cultures [] LE dopplers [] address edema [] consult vascular for possible intervention #LE Edema We will hold oral Bumex 3 mg p.o. twice daily Give first dose of Bumex 2 mg IV this evening, then placed on 2 mg IV twice daily Ejection fraction was 50.1% on resting aspect of dobutamine stress echo from 03/06/2019 Repeat echocardiogram [] repeat ECHO #CAD/hypertension/atrial fibrillation/mild aortic stenosis/CP Patient has a history of CAD and LA with stenting. He noted having CP over night. Repeat EKG this morning. Patient on tele. The patient will be admitted to telemetry for serial cardiac enzymes, serial EKG's, cardiac rhythm monitoring and a 2-D echocardiogram with Dopplers. [] Continue amlodipine, aspirin, clopidogrel and metoprolol tartrate [] Repeat ECHO #T2DM Change insulin glargine from 54 to 40 units subcu every morning and 40 to 30 units subcu every evening Hold glipizide 10 mg p.o. twice daily. Placed on Accu-Cheks before meals and at bedtime with NovoLog coverage per scale Check hemoglobin A1c [] hemoglobin A1c #CKD Creatinine 2.25 on admission, with range 1.58-2.07 Follow renal function panel and magnesium labs serially [] Cr - 2.07 [] Hold losartan #BPH with urinary obstruction Continue tamsulosin 0.4 mg at bedtime and finasteride 5 mg at bedtime #COPD Continue routine inhalers #Hypothyroidism Continue levothyroxine #HTN Continue amlodipine, aspirin #Dyslipidemia Verify patient's outpatient medication, and begin when clarified #Paroxysmal a fib. See above Patient is not on anticoagulation diet: heart healthy, low sodium, DM2 consistent carbs code status: full DVT ppx: heparin dispo: Med/Tele Admission and Anticipated Discharge Date Admission Date: December 13, 2021 Supervising Physician Co-Signing Physician Notes I personally examined the patient and verified all aguayo points of history and exam, discussed case, and agree with decision making with Dr Lynne toe hurts a lot but otherwise feeling better. notes that dr lopez has followed him for vascular disease in the past. vitals noted nad heent nc at mmm breathing unlabored R foot 4th toe very red and swollen diabetic foot infection - from poor blood flow - dapto and zosyn, vascular evaluation. otherwise as above Subjective The patient notes that he is doing well today. He does report having chest pain overnight described as sharp and midline, which he believes to be positional in nature. This pain was reproduced on exam when the patient leaned forward for the pulmonary exam. Review of Systems Review of Systems: See subjective/HPI Physical Exam Physical Exam: The patient is awake, alert and oriented 3, well developed and well nourished, normocephalic and atraumatic, lying in bed and in no acute distress. HEENT--PERRL, EOMI, mucous membranes and oropharynx normal. Neck--Trachea midline. Heart--normal S1 and S2. No murmurs, rubs or gallops. Lungs--clear bilaterally, no respiratory distress, no accessory muscle use. Abdomen--normal bowel sounds and soft. Nontender. Nondistended, no hernias or masses, no organomegaly. Extremities--3+ bilateral pretibial and pedal pitting edema. Skin -- Erythema involving toes 2 through 5 of right foot, and mild erythema of bilateral anterior tibial surface Neurologic--cranial nerves II through XII grossly intact. MSK--normal range of motion. Psychiatric--normal affect. Results & Data Results & Data ([facility]) Vital Signs (Past 12 Hours) Vital Signs Temp Pulse Pulse Pulse Resp BP Pulse Ox 12/14/21 04:46 36.7 C 66 18 107/56 L 97 12/14/21 02:02 36.4 C L 69 18 172/75 H 98 12/14/21 01:56 64 12/13/21 22:36 36.4 C L 69 18 172/75 H 95 12/13/21 20:25 60 15 151/65 H 98 O2 Del Method 12/14/21 04:46 Room Air 12/14/21 02:02 Room Air 12/14/21 01:56 12/13/21 22:36 Room Air 12/13/21 20:25 Room Air Laboratory Results 12/14/21 12/14/21 12/14/21 Range/Units 08:13 07:56 07:56 WBC 8.34 (4.8-10.8) K/ul RBC 3.98 L (4.63-6.08) M/uL Hgb 12.5 L (14.0-18.0) g/dl Hct 36.5 L (40.1-51.0) % MCV 91.7 (80.0-100.0) fL MCH 31.4 (25.0-34.0) pg MCHC 34.2 (32.0-36.0) g/dL RDW Std Deviation 45.1 (36.4-46.3) fL RDW Coeff of Adrian 13.2 (11.5-14.5) % Plt Count 149 (130-400) K/uL MPV 8.9 L (9.4-12.4) fL Immature Gran % (Auto) 0.7 % Neut % (Auto) 64.6 % Lymph % (Auto) 23.4 % Shannon % (Auto) 9.4 % Eos % (Auto) 1.4 % Baso % (Auto) 0.5 % Neut # (Auto) 5.39 (1.4-6.5) K/uL Lymph # (Auto) 1.95 (1.2-3.4) K/uL Shannon # (Auto) 0.78 (0.24-0.82) K/uL Eos # (Auto) 0.12 (0-0.50) K/uL Baso # (Auto) 0.04 (0-0.2) K/uL Immature Gran # (Auto) 0.06 H (0.00-0.02) K/uL ESR (0-20) mm/hr Sodium 141 (136-145) mmol/L Potassium 3.8 (3.5-5.1) mmol/L Chloride 103 (98-107) mmol/L Carbon Dioxide 31 (21-32) mmol/L Anion Gap 7 (3-11) BUN 48 H (6-23) mg/dl Creatinine 2.07 H (0.6-1.4) mg/dl Est Cr Clr Drug Dosing 27.9 ml/min Est GFR ( Amer) 32.6 ml/min Est GFR (Non-Af Amer) 28.2 ml/min BUN/Creatinine Ratio 23.2 H (10-20) Glucose 54 L (70-99(Fasting)) mg/dl POC Glucose 81 (70-99) mg/dl Estimat Average Glucose mg/dl Hemoglobin A1c (4.5-5.6) % Lactate (0.4-2.0) mmol/L Calcium 8.7 (8.5-10.1) mg/dl Magnesium 2.4 (1.7-2.4) mg/dl Total Bilirubin 0.5 (0.2-1.0) mg/dl AST 22 (13-39) U/L ALT 16 (7-52) U/L Alkaline Phosphatase 70 (34-104) U/L C-Reactive Protein (0-0.5) mg/dl Total Protein 6.3 D (6.0-8.3) gm/dl Albumin 3.4 (3.4-5.0) gm/dl Globulin 2.9 (2.5-4.0) gm/dl Albumin/Globulin Ratio 1.2 (0.9-2) Procalcitonin (0-0.5) ng/ml Urine Color Urine Appearance (Clear) Urine pH (4.5-7.5) Ur Specific [place] (1.000-1.030) Urine Protein (Negative) Urine Glucose (UA) (Negative) Urine Ketones (Negative) Urine Blood (Negative) Urine Nitrite (Negative) Urine Bilirubin (Negative) Urine Urobilinogen (Negative) Ur Leukocyte Esterase (Negative) SARS-CoV-2, RNA, NAAT (NEGATIVE) 12/14/21 12/14/21 12/14/21 Range/Units 07:56 07:55 07:35 WBC (4.8-10.8) K/ul RBC (4.63-6.08) M/uL Hgb (14.0-18.0) g/dl Hct (40.1-51.0) % MCV (80.0-100.0) fL MCH (25.0-34.0) pg MCHC (32.0-36.0) g/dL RDW Std Deviation (36.4-46.3) fL RDW Coeff of Adrian (11.5-14.5) % Plt Count (130-400) K/uL MPV (9.4-12.4) fL Immature Gran % (Auto) % Neut % (Auto) % Lymph % (Auto) % Shannon % (Auto) % Eos % (Auto) % Baso % (Auto) % Neut # (Auto) (1.4-6.5) K/uL Lymph # (Auto) (1.2-3.4) K/uL Shannon # (Auto) (0.24-0.82) K/uL Eos # (Auto) (0-0.50) K/uL Baso # (Auto) (0-0.2) K/uL Immature Gran # (Auto) (0.00-0.02) K/uL ESR (0-20) mm/hr Sodium (136-145) mmol/L Potassium (3.5-5.1) mmol/L Chloride (98-107) mmol/L Carbon Dioxide (21-32) mmol/L Anion Gap (3-11) BUN (6-23) mg/dl Creatinine (0.6-1.4) mg/dl Est Cr Clr Drug Dosing ml/min Est GFR ( Amer) ml/min Est GFR (Non-Af Amer) ml/min BUN/Creatinine Ratio (10-20) Glucose (70-99(Fasting)) mg/dl POC Glucose 60 L* 49 L* (70-99) mg/dl Estimat Average Glucose 232 mg/dl Hemoglobin A1c 9.7 H (4.5-5.6) % Lactate (0.4-2.0) mmol/L Calcium (8.5-10.1) mg/dl Magnesium (1.7-2.4) mg/dl Total Bilirubin (0.2-1.0) mg/dl AST (13-39) U/L ALT (7-52) U/L Alkaline Phosphatase (34-104) U/L C-Reactive Protein (0-0.5) mg/dl Total Protein (6.0-8.3) gm/dl Albumin (3.4-5.0) gm/dl Globulin (2.5-4.0) gm/dl Albumin/Globulin Ratio (0.9-2) Procalcitonin (0-0.5) ng/ml Urine Color Urine Appearance (Clear) Urine pH (4.5-7.5) Ur Specific [place] (1.000-1.030) Urine Protein (Negative) Urine Glucose (UA) (Negative) Urine Ketones (Negative) Urine Blood (Negative) Urine Nitrite (Negative) Urine Bilirubin (Negative) Urine Urobilinogen (Negative) Ur Leukocyte Esterase (Negative) SARS-CoV-2, RNA, NAAT (NEGATIVE) 12/14/21 12/13/21 12/13/21 Range/Units 07:34 Unknown 23:15 WBC (4.8-10.8) K/ul RBC (4.63-6.08) M/uL Hgb (14.0-18.0) g/dl Hct (40.1-51.0) % MCV (80.0-100.0) fL MCH (25.0-34.0) pg MCHC (32.0-36.0) g/dL RDW Std Deviation (36.4-46.3) fL RDW Coeff of Adrian (11.5-14.5) % Plt Count (130-400) K/uL MPV (9.4-12.4) fL Immature Gran % (Auto) % Neut % (Auto) % Lymph % (Auto) % Shannon % (Auto) % Eos % (Auto) % Baso % (Auto) % Neut # (Auto) (1.4-6.5) K/uL Lymph # (Auto) (1.2-3.4) K/uL Shannon # (Auto) (0.24-0.82) K/uL Eos # (Auto) (0-0.50) K/uL Baso # (Auto) (0-0.2) K/uL Immature Gran # (Auto) (0.00-0.02) K/uL ESR (0-20) mm/hr Sodium (136-145) mmol/L Potassium (3.5-5.1) mmol/L Chloride (98-107) mmol/L Carbon Dioxide (21-32) mmol/L Anion Gap (3-11) BUN (6-23) mg/dl Creatinine (0.6-1.4) mg/dl Est Cr Clr Drug Dosing ml/min Est GFR ( Amer) ml/min Est GFR (Non-Af Amer) ml/min BUN/Creatinine Ratio (10-20) Glucose (70-99(Fasting)) mg/dl POC Glucose 49 L* (70-99) mg/dl Estimat Average Glucose mg/dl Hemoglobin A1c (4.5-5.6) % Lactate (0.4-2.0) mmol/L Calcium (8.5-10.1) mg/dl Magnesium (1.7-2.4) mg/dl Total Bilirubin (0.2-1.0) mg/dl AST (13-39) U/L ALT (7-52) U/L Alkaline Phosphatase (34-104) U/L C-Reactive Protein (0-0.5) mg/dl Total Protein (6.0-8.3) gm/dl Albumin (3.4-5.0) gm/dl Globulin (2.5-4.0) gm/dl Albumin/Globulin Ratio (0.9-2) Procalcitonin (0-0.5) ng/ml Urine Color Yellow Urine Appearance Clear (Clear) Urine pH 6.0 (4.5-7.5) Ur Specific [place] 1.012 (1.000-1.030) Urine Protein Negative (Negative) Urine Glucose (UA) Negative (Negative) Urine Ketones Negative (Negative) Urine Blood Negative (Negative) Urine Nitrite Negative (Negative) Urine Bilirubin Negative (Negative) Urine Urobilinogen Negative (Negative) Ur Leukocyte Esterase Negative (Negative) SARS-CoV-2, RNA, NAAT NEGATIVE (NEGATIVE) 12/13/21 12/13/21 12/13/21 Range/Units 22:50 20:25 20:25 WBC (4.8-10.8) K/ul RBC (4.63-6.08) M/uL Hgb (14.0-18.0) g/dl Hct (40.1-51.0) % MCV (80.0-100.0) fL MCH (25.0-34.0) pg MCHC (32.0-36.0) g/dL RDW Std Deviation (36.4-46.3) fL RDW Coeff of Adrian (11.5-14.5) % Plt Count (130-400) K/uL MPV (9.4-12.4) fL Immature Gran % (Auto) % Neut % (Auto) % Lymph % (Auto) % Shannon % (Auto) % Eos % (Auto) % Baso % (Auto) % Neut # (Auto) (1.4-6.5) K/uL Lymph # (Auto) (1.2-3.4) K/uL Shannon # (Auto) (0.24-0.82) K/uL Eos # (Auto) (0-0.50) K/uL Baso # (Auto) (0-0.2) K/uL Immature Gran # (Auto) (0.00-0.02) K/uL ESR 32 H (0-20) mm/hr Sodium (136-145) mmol/L Potassium (3.5-5.1) mmol/L Chloride (98-107) mmol/L Carbon Dioxide (21-32) mmol/L Anion Gap (3-11) BUN (6-23) mg/dl Creatinine (0.6-1.4) mg/dl Est Cr Clr Drug Dosing ml/min Est GFR ( Amer) ml/min Est GFR (Non-Af Amer) ml/min BUN/Creatinine Ratio (10-20) Glucose (70-99(Fasting)) mg/dl POC Glucose 260 H (70-99) mg/dl Estimat Average Glucose mg/dl Hemoglobin A1c (4.5-5.6) % Lactate (0.4-2.0) mmol/L Calcium (8.5-10.1) mg/dl Magnesium (1.7-2.4) mg/dl Total Bilirubin (0.2-1.0) mg/dl AST (13-39) U/L ALT (7-52) U/L Alkaline Phosphatase (34-104) U/L C-Reactive Protein (0-0.5) mg/dl Total Protein (6.0-8.3) gm/dl Albumin (3.4-5.0) gm/dl Globulin (2.5-4.0) gm/dl Albumin/Globulin Ratio (0.9-2) Procalcitonin < 0.05 (0-0.5) ng/ml Urine Color Urine Appearance (Clear) Urine pH (4.5-7.5) Ur Specific [place] (1.000-1.030) Urine Protein (Negative) Urine Glucose (UA) (Negative) Urine Ketones (Negative) Urine Blood (Negative) Urine Nitrite (Negative) Urine Bilirubin (Negative) Urine Urobilinogen (Negative) Ur Leukocyte Esterase (Negative) SARS-CoV-2, RNA, NAAT (NEGATIVE) 12/13/21 12/13/21 12/13/21 Range/Units 19:51 19:45 18:55 WBC (4.8-10.8) K/ul RBC (4.63-6.08) M/uL Hgb (14.0-18.0) g/dl Hct (40.1-51.0) % MCV (80.0-100.0) fL MCH (25.0-34.0) pg MCHC (32.0-36.0) g/dL RDW Std Deviation (36.4-46.3) fL RDW Coeff of Adrian (11.5-14.5) % Plt Count (130-400) K/uL MPV (9.4-12.4) fL Immature Gran % (Auto) % Neut % (Auto) % Lymph % (Auto) % Shannon % (Auto) % Eos % (Auto) % Baso % (Auto) % Neut # (Auto) (1.4-6.5) K/uL Lymph # (Auto) (1.2-3.4) K/uL Shannon # (Auto) (0.24-0.82) K/uL Eos # (Auto) (0-0.50) K/uL Baso # (Auto) (0-0.2) K/uL Immature Gran # (Auto) (0.00-0.02) K/uL ESR (0-20) mm/hr Sodium (136-145) mmol/L Potassium (3.5-5.1) mmol/L Chloride (98-107) mmol/L Carbon Dioxide (21-32) mmol/L Anion Gap (3-11) BUN (6-23) mg/dl Creatinine (0.6-1.4) mg/dl Est Cr Clr Drug Dosing ml/min Est GFR ( Amer) ml/min Est GFR (Non-Af Amer) ml/min BUN/Creatinine Ratio (10-20) Glucose (70-99(Fasting)) mg/dl POC Glucose 219 H (70-99) mg/dl Estimat Average Glucose mg/dl Hemoglobin A1c (4.5-5.6) % Lactate 2.0 (0.4-2.0) mmol/L Calcium (8.5-10.1) mg/dl Magnesium (1.7-2.4) mg/dl Total Bilirubin (0.2-1.0) mg/dl AST (13-39) U/L ALT (7-52) U/L Alkaline Phosphatase (34-104) U/L C-Reactive Protein 0.60 H (0-0.5) mg/dl Total Protein (6.0-8.3) gm/dl Albumin (3.4-5.0) gm/dl Globulin (2.5-4.0) gm/dl Albumin/Globulin Ratio (0.9-2) Procalcitonin (0-0.5) ng/ml Urine Color Urine Appearance (Clear) Urine pH (4.5-7.5) Ur Specific [place] (1.000-1.030) Urine Protein (Negative) Urine Glucose (UA) (Negative) Urine Ketones (Negative) Urine Blood (Negative) Urine Nitrite (Negative) Urine Bilirubin (Negative) Urine Urobilinogen (Negative) Ur Leukocyte Esterase (Negative) SARS-CoV-2, RNA, NAAT (NEGATIVE) 12/13/21 12/13/21 Range/Units 18:15 18:15 WBC 8.74 (4.8-10.8) K/ul RBC 4.56 L (4.63-6.08) M/uL Hgb 14.3 (14.0-18.0) g/dl Hct 42.4 (40.1-51.0) % MCV 93.0 (80.0-100.0) fL MCH 31.4 (25.0-34.0) pg MCHC 33.7 (32.0-36.0) g/dL RDW Std Deviation 45.7 (36.4-46.3) fL RDW Coeff of Adrian 13.5 (11.5-14.5) % Plt Count 175 (130-400) K/uL MPV 9.3 L (9.4-12.4) fL Immature Gran % (Auto) 1.0 % Neut % (Auto) 64.8 % Lymph % (Auto) 25.3 % Shannon % (Auto) 6.9 % Eos % (Auto) 1.5 % Baso % (Auto) 0.5 % Neut # (Auto) 5.67 (1.4-6.5) K/uL Lymph # (Auto) 2.21 (1.2-3.4) K/uL Shannon # (Auto) 0.60 (0.24-0.82) K/uL Eos # (Auto) 0.13 (0-0.50) K/uL Baso # (Auto) 0.04 (0-0.2) K/uL Immature Gran # (Auto) 0.09 H (0.00-0.02) K/uL ESR (0-20) mm/hr Sodium 139 (136-145) mmol/L Potassium 4.3 (3.5-5.1) mmol/L Chloride 100 (98-107) mmol/L Carbon Dioxide 31 (21-32) mmol/L Anion Gap 8 (3-11) BUN 56 H (6-23) mg/dl Creatinine 2.25 H (0.6-1.4) mg/dl Est Cr Clr Drug Dosing 25.7 ml/min Est GFR ( Amer) 29.5 ml/min Est GFR (Non-Af Amer) 25.5 ml/min BUN/Creatinine Ratio 24.9 H (10-20) Glucose 99 (70-99(Fasting)) mg/dl POC Glucose (70-99) mg/dl Estimat Average Glucose mg/dl Hemoglobin A1c (4.5-5.6) % Lactate (0.4-2.0) mmol/L Calcium 9.9 (8.5-10.1) mg/dl Magnesium (1.7-2.4) mg/dl Total Bilirubin 0.6 (0.2-1.0) mg/dl AST 22 (13-39) U/L ALT 17 (7-52) U/L Alkaline Phosphatase 85 (34-104) U/L C-Reactive Protein (0-0.5) mg/dl Total Protein 8.0 (6.0-8.3) gm/dl Albumin 4.3 (3.4-5.0) gm/dl Globulin 3.7 (2.5-4.0) gm/dl Albumin/Globulin Ratio 1.2 (0.9-2) Procalcitonin (0-0.5) ng/ml Urine Color Urine Appearance (Clear) Urine pH (4.5-7.5) Ur Specific [place] (1.000-1.030) Urine Protein (Negative) Urine Glucose (UA) (Negative) Urine Ketones (Negative) Urine Blood (Negative) Urine Nitrite (Negative) Urine Bilirubin (Negative) Urine Urobilinogen (Negative) Ur Leukocyte Esterase (Negative) SARS-CoV-2, RNA, NAAT (NEGATIVE) Diagnostic Findings 12/14 FINDINGS: There is a prominent lymph node in the right groin measuring 2.4 x 1.2 x 1.8 cm. Evaluation of the bilateral calf is limited due to extensive plaque. RIGHT: Common femoral artery: Triphasic waveforms. Peak systolic velocity (PSV) 131 cm/s. Deep femoral artery: Triphasic waveforms. PSV 111 cm/s. Superficial femoral artery: Triphasic waveforms. PSV 116 cm/s. Popliteal artery: Monophasic waveforms. PSV 82 cm/s. Anterior tibial artery: Monophasic waveforms. PSV 120, distally decreased to 30 cm/s. Posterior tibial artery: Monophasic waveforms. PSV 317, decreasing distally to 203 cm/s. Peroneal artery: Monophasic waveforms. PSV 120 cm/s. Dorsalis pedis: Monophasic waveforms. PSV 38 cm/s. LEFT: Common femoral artery: Triphasic waveforms. Peak systolic velocity (PSV) 163 cm/s. Deep femoral artery: Triphasic waveforms. PSV 136 cm/s. Superficial femoral artery: Triphasic waveforms. PSV 128 cm/s. Popliteal artery: Monophasic waveforms. PSV 77 cm/s. Anterior tibial artery: Monophasic waveforms. PSV 288, decreasing distally to 79 cm/s. Posterior tibial artery: Monophasic waveforms. PSV 51.5 cm/s proximally, no distal flow is seen Peroneal artery: Monophasic waveforms. PSV 100.7 approximately, decreasing distally to 58 cm/s. Dorsalis pedis: Monophasic waveforms. PSV 160 cm/s. Ankle-brachial index cannot be assessed due to pain. Reference ranges: Normal Ankle/Brachial Index (ABBEY) 1.0-1.4; 0.91-0.99 borderline; < or = 0.9 abnormal (0.7-0.89 mild, 0.51-0.69 moderate, < or = 0.5 severe peripheral arterial disease). Normal Toe/Brachial Index (TBI) > or = 0.6; < 0.6 abnormal (0.34-0.59 mild, 0.12-0.34 moderate, < or = 0.11 severe peripheral arterial disease). IMPRESSION: 1. Interval worsening of extensive atherosclerotic disease. Compared to the prior exam, there is new elevation of velocities in the right posterior tibial artery, low flow in the distal right anterior tibial artery, and no measurable flow in the distal left anterior tibial artery. Diminished flow in the distal left peroneal artery is also noted. 2. A prominent soft tissue mass in the right groin is favored to represent an enlarged lymph node, clinical correlation is recommended. 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 transplanted heart: [place] heart Qualified Code(s): I25.10 - Atherosclerotic heart disease of [place] coronary artery without angina pectoris (3) Cellulitis Laterality: unspecified laterality Site of cellulitis: extremity Site of cellulitis of extremity: lower extremity Qualified Code(s): L03.119 - Cellulitis of unspecified part of limb (4) Hypothyroidism Hypothyroidism type: unspecified Qualified Code(s): E03.9 - Hypothyroidism, unspecified (5) COPD (chronic obstructive pulmonary disease) COPD type: unspecified COPD Qualified Code(s): J44.9 - Chronic obstructive pulmonary disease, unspecified (6) Hypertension Hypertension type: essential hypertension Qualified Code(s): I10 - Essential (primary) hypertension
[2021-12-14] MEDS: CARBOHYDRATES FOR HYPOGLYCEMIA PO PRN ×2 (07:37→07:56)
[2021-12-14] MEDS: ASPIRIN 81 MG ECTAB PO SCH (08:01)
[2021-12-14] MEDS: MULTIVITAMIN TAB PO SCH (08:01)
[2021-12-14] MEDS: PANTOprazole 40 MG TAB PO SCH (08:01)
[2021-12-14] MEDS: CLOPIDOGREL BISULFATE 75 MG TAB PO SCH (08:01)
[2021-12-14] MEDS: GABAPENTIN 100 MG CAP PO SCH (08:01)
[2021-12-14] MEDS: amLODIPine BESYLATE 5 MG TAB PO SCH (08:01)
[2021-12-14] MEDS: BUMETANIDE 2 MG in SYRINGE 0 ML IV SCH ×2 (08:03→17:17)
[2021-12-14] MEDS: UMECLIDINIUM BROMIDE 62.5MCG/BLISTER 7 PUFFS/INHALER INH SCH (08:09)
[2021-12-14] MEDS: FLUTICASONE/VILANTEROL 200/25MCG 14 PUFFS/INHALER INH SCH (08:09)
[2021-12-14 08:15] LABS: Basophils # (auto) 0.04 K/uL (0-0.2); Basophils % (auto) 0.5 %; Eosinophils # (auto) 0.12 K/uL (0-0.50); Eosinophils % (auto) 1.4 %; Hematocrit (blood only) 36.5 % (40.1-51.0); Hemoglobin 12.5 g/dl (14.0-18.0); Immature Granulocytes # (auto) 0.06 K/uL (0.00-0.02); Immature Granulocytes % (auto) 0.7 %; Lymphocytes # (auto) 1.95 K/uL (1.2-3.4); Lymphocytes % (auto) 23.4 %; Mean Corpuscular Hemoglobin 31.4 pg (25.0-34.0); Mean Corpuscular Hgb Conc 34.2 g/dL (32.0-36.0); Mean Corpuscular Volume 91.7 fL (80.0-100.0); Mean Platelet Volume 8.9 fL (9.4-12.4); Monocytes # (auto) 0.78 K/uL (0.24-0.82); Monocytes % (auto) 9.4 %; Neutrophils # (auto) 5.39 K/uL (1.4-6.5); Neutrophils % (auto) 64.6 %; Platelet Count 149 K/uL (130-400); RDW Coefficient of Variation 13.2 % (11.5-14.5); RDW Standard Deviation 45.1 fL (36.4-46.3); Red Blood Count 3.98 M/uL (4.63-6.08); White Blood Count 8.34 K/ul (4.8-10.8)
[2021-12-14 08:40] LABS: Albumin Globulin Ratio 1.2 (0.9-2); Albumin Level 3.4 gm/dl (3.4-5.0); BUN Creatinine Ratio 23.2 (10-20); Bilirubin,Total 0.5 mg/dl (0.2-1.0); Calcium 8.7 mg/dl (8.5-10.1); Creatinine Clr Calc Pharmacy 27.9 ml/min; Est GFR (African American) 32.6 ml/min; Est GFR (Non-African American) 28.2 ml/min; Globulin 2.9 gm/dl (2.5-4.0); Magnesium 2.4 mg/dl (1.7-2.4); Potassium 3.8 mmol/L (3.5-5.1); Total Protein 6.3 gm/dl (6.0-8.3)
[2021-12-14] MEDS ORDERED: LANTUS PER UNIT CHARGE SQ SCH (09:00)
[2021-12-14] MEDS ORDERED: clonazePAM 0.25 MG TAB PO SCH (09:00)
[2021-12-14 09:09] LABS: Estimated Average Glucose 232 mg/dl; Hemoglobin A1C 9.7 % (4.5-5.6)
--- NOTE | 2021-12-14 09:27 | Ultrasound Report ---
US arterial duplex LE BI CLINICAL HISTORY: b/l le cellulitis, diabetes, diminished pulses TECHNIQUE: Real-time grayscale and color and spectral Doppler ultrasound imaging of the bilateral low er extremity arteries was performed. Measurements calculated based on NASCET criteria. COMPARISON: Comparison is made to Doppler ultrasound 12/16/2020 FINDINGS: There is a prominent lymph node in the right groin measuring 2.4 x 1.2 x 1.8 cm. Evaluation of the bi lateral calf is limited due to extensive plaque. RIGHT: Common femoral artery: Triphasic waveforms. Peak systolic velocity (PSV) 131 cm/s. Deep femoral artery: Triphasic waveforms. PSV 111 cm/s. Superficial femoral artery: Triphasic waveforms. PSV 116 cm/s. Popliteal artery: Monophasic waveforms. PSV 82 cm/s. Anterior tibial artery: Monophasic waveforms. PSV 120, distally decreased to 30 cm/s. Posterior tibial artery: Monophasic waveforms. PSV 317, decreasing distally to 203 cm/s. Peroneal artery: Monophasic waveforms. PSV 120 cm/s. Dorsalis pedis: Monophasic waveforms. PSV 38 cm/s. LEFT: Common femoral artery: Triphasic waveforms. Peak systolic velocity (PSV) 163 cm/s. Deep femoral artery: Triphasic waveforms. PSV 136 cm/s. Superficial femoral artery: Triphasic waveforms. PSV 128 cm/s. Popliteal artery: Monophasic waveforms. PSV 77 cm/s. Anterior tibial artery: Monophasic waveforms. PSV 288, decreasing distally to 79 cm/s. Posterior tibial artery: Monophasic waveforms. PSV 51.5 cm/s proximally, no distal flow is seen Peroneal artery: Monophasic waveforms. PSV 100.7 approximately, decreasing distally to 58 cm/s. Dorsalis pedis: Monophasic waveforms. PSV 160 cm/s. Ankle-brachial index cannot be assessed due to pain. Reference ranges: Normal Ankle/Brachial Index (ABBEY) 1.0-1.4; 0.91-0.99 borderline; < or = 0.9 abnormal (0.7-0.89 mild, 0.51-0.69 moderate, < or = 0.5 severe peripheral arterial disease). Normal Toe/Brachial Index (TBI) > or = 0.6; < 0.6 abnormal (0.34-0.59 mild, 0.12-0.34 moderate, < or = 0.11 severe peripheral arterial disease). IMPRESSION: 1. Interval worsening of extensive atherosclerotic disease. Compared to the prior exam, there is new elevation of velocities in the right posterior tibial artery, low flow in the distal right anterior tibial artery, and no measurable flow in the distal left anterior tibial artery. Diminished flow in t he distal left peroneal artery is also noted. 2. A prominent soft tissue mass in the right groin is favored to represent an enlarged lymph node, c linical correlation is recommended. ACT 112: Negative or not required by law. Electronically signed by: Dano West M.D. 12/14/2021 9:26 AM
--- NOTE | 2021-12-14 16:50 | XCELERA ---
[id number]
--- NOTE | 2021-12-14 17:17 | Electrocardiogram Report ---
Test Reason : Blood Pressure : / mmHG Vent. 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
--- NOTE | 2021-12-14 19:10 | Billing Data ---
Date of Service December 14, 2021 Coding Level of Care Code 82192 Subseq Hosp Care Lvl 3
[2021-12-14] MEDS: LANTUS PER UNIT CHARGE SQ SCH (21:03)
[2021-12-14] MEDS: clonazePAM 1 MG TAB PO SCH (21:15)
[2021-12-15] MEDS: PIPERACILLIN/TAZOBACTAM 4.5 GM in DEXTROSE 5% 100 ML IV SCH ×3 (05:47→21:20)
[2021-12-15] MEDS: LEVOTHYROXINE SODIUM 88 MCG TABLET PO SCH (05:48)
--- NOTE | 2021-12-15 06:46 | Hospitalist Progress Note ---
Date of Service December 15, 2021 Assessment & Plan (1) Diabetic infection of right foot: (2) Cellulitis: (3) Lower extremity edema: (4) CAD (coronary artery disease): (5) Diabetes: (6) Mild aortic stenosis: (7) Chronic kidney disease: (8) Benign prostatic hyperplasia with urinary obstruction: (9) COPD (chronic obstructive pulmonary disease): (10) Hypothyroidism: (11) Hypertension: (12) Dyslipidemia: (13) Paroxysmal atrial fibrillation: Plan Mr. Monroy is an 86 y/o male with a PMHx including CHF, CKD, mild aortic stenosis, peripheral vascular disease, BPH with LUTS, COPD, hypothyroidism, hypertension, dyslipidemia, paroxysmal atrial fibrillation, vitamin D deficiency , CAD, myocardial infarction, GERD and diabetes mellitus.The patient initially been seen in the emergency department for bilateral lower extremity cellulitis on 12/05/2021, where he received ceftriaxone 2 g IV, and then was discharged on Keflex and doxycycline orally. Patient did take his antibiotics as directed, had persistent worsening, and was referred to the ED for further treatment with IV antibiotics by his PCP. #Cellulitis#Diabetic infection#Osteo Diabetic infection/cellulitis of right foot/bilateral lower extremity - failure of outpatient treatment with Keflex and doxycycline. Since patient is diabetic, and has CKD, will place on daptomycin 4 mg kilogram IV every 24 hours and Zosyn 4.5 g IV every 8 hours. Order lower extremity arterial Dopplers to compare to that done on 12/16 - showed worsening of atherosclerotic disease. [] MRI right foot shows signs of osteomyelitis in the 4th digit - consult pediatry: they rec vascular eval [] continue daptomycin 4 mg/kg IV Q24 and Zosyn 4.5 g IV Q8 - f/u cultures NGTD 24 hr [] consult interventional cardiology for possible intervention - appreciate recs #LE Edema Bumex 2 mg IV BID - transition to Bumex 2 mg po BID. Ejection fraction was 50.1% on resting aspect of dobutamine stress echo from 03/06/2019 - repeat ECHO shows worsened , EF 55-60% #CAD/hypertension/atrial fibrillation/mild aortic stenosis/CP Patient has a history of CAD and PR with stenting. He noted having CP over night. Repeat EKG this morning. Patient on tele. Repeat ECHO showed worsened , EF 55-60%. Grade I diastolic dysfunction. Moderate LVH. hsTrop 8.1. [] Continue amlodipine, aspirin, clopidogrel and metoprolol tartrate #T2DM Change insulin glargine from 54 to 40 units subcu every morning and 40 to 30 units subcu every evening. Hold glipizide 10 mg p.o. twice daily. Placed on Accu-Cheks before meals and at bedtime with NovoLog coverage per scale. HbA1c - 9.7. Patient hypoglycemic to 48 - decrease glargine to 10 units BID with SSI. Patient still hyperglycemic - change carb ratio to 10. #CKD Creatinine 2.25 on admission, with range 1.58-2.07 Follow renal function panel and magnesium labs serially [] Cr - 2.07 [] Hold losartan #BPH with urinary obstruction Continue tamsulosin 0.4 mg at bedtime and finasteride 5 mg at bedtime #COPD Continue routine inhalers #Hypothyroidism Continue levothyroxine #HTN Continue amlodipine, aspirin #Dyslipidemia Verify patient's outpatient medication, and begin when clarified #Paroxysmal a fib. See above Patient is not on anticoagulation diet: npo code status: full DVT ppx: heparin dispo: Med/Tele Admission and Anticipated Discharge Date Admission Date: December 13, 2021 Supervising Physician Co-Signing Physician Notes I personally examined the patient and verified all [place] points of history and exam, discussed case, and agree with decision making with Dr Guera Menard feeling a good bit better. Seen at the same time as podiatry, input greatly appreciated. vitals noted nad heent nc at mmm breathing unlabored R foot 4th toe less red and swollen diabetic foot infection - from poor blood flow - dapto and zosyn, fortunately appears to be acutely improving, podiatry eval reassuringawait vascular evaluation. otherwise as above Subjective The patient notes that he is doing well. He denies any f/c/sob/cp or pain. He states that his toe is no longer nearly as painful. He can tolerate the toe being touched. Otherwise he has no complaints. Review of Systems Review of Systems: See subjective/HPI Physical Exam Physical Exam: The patient is awake, alert and oriented 3, well developed and well nourished, normocephalic and atraumatic, lying in bed and in no acute distress. HEENT--PERRL, EOMI, mucous membranes. Neck--Trachea midline. Heart--normal S1 and S2. No murmurs, rubs or gallops. Lungs--clear bilaterally, no respiratory distress, no accessory muscle use. Abdomen--normal bowel sounds and soft. Extremities--1-2+ bilateral pretibial and pedal pitting edema. Skin -- Erythema involving toes 2 through 5 of right foot, and mild erythema of bilateral anterior tibial surface - erythema improved, ecchymosis more purple today.. Monophasic doppler's bilateral DP and PT. Neurologic--cranial nerves II through XII grossly intact. MSK--normal range of motion. Psychiatric--normal affect. Results & Data Results & Data ([facility]) Vital Signs (Past 12 Hours) Vital Signs Temp Pulse Pulse Resp BP Pulse Ox O2 Del Method 12/15/21 05:02 36.9 C 61 18 134/65 93 Room Air 12/14/21 22:17 64 12/14/21 23:44 36.7 C 63 18 161/63 H 96 Room Air Laboratory Results 12/15/21 12/15/21 12/15/21 Range/Units 07:47 07:44 07:44 WBC 7.49 (4.8-10.8) K/ul RBC 3.81 L (4.63-6.08) M/uL Hgb 11.7 L (14.0-18.0) g/dl Hct 34.5 L (40.1-51.0) % MCV 90.6 (80.0-100.0) fL MCH 30.7 (25.0-34.0) pg MCHC 33.9 (32.0-36.0) g/dL RDW Std Deviation 44.3 (36.4-46.3) fL RDW Coeff of Adrian 13.4 (11.5-14.5) % Plt Count 141 (130-400) K/uL MPV 9.5 (9.4-12.4) fL Sodium 138 (136-145) mmol/L Potassium 4.2 (3.5-5.1) mmol/L Chloride 103 (98-107) mmol/L Carbon Dioxide 29 (21-32) mmol/L Anion Gap 6 (3-11) BUN 41 H (6-23) mg/dl Creatinine 2.12 H (0.6-1.4) mg/dl Est Cr Clr Drug Dosing 27.8 ml/min Est GFR ( Amer) 31.7 ml/min Est GFR (Non-Af Amer) 27.4 ml/min BUN/Creatinine Ratio 19.3 (10-20) Glucose 202 H (70-99(Fasting)) mg/dl POC Glucose 208 H (70-99) mg/dl Calcium 8.3 L (8.5-10.1) mg/dl Troponin I High Sens (0-20) pg/ml 12/14/21 12/14/21 12/14/21 Range/Units 20:05 16:45 11:46 WBC (4.8-10.8) K/ul RBC (4.63-6.08) M/uL Hgb (14.0-18.0) g/dl Hct (40.1-51.0) % MCV (80.0-100.0) fL MCH (25.0-34.0) pg MCHC (32.0-36.0) g/dL RDW Std Deviation (36.4-46.3) fL RDW Coeff of Adrian (11.5-14.5) % Plt Count (130-400) K/uL MPV (9.4-12.4) fL Sodium (136-145) mmol/L Potassium (3.5-5.1) mmol/L Chloride (98-107) mmol/L Carbon Dioxide (21-32) mmol/L Anion Gap (3-11) BUN (6-23) mg/dl Creatinine (0.6-1.4) mg/dl Est Cr Clr Drug Dosing ml/min Est GFR ( Amer) ml/min Est GFR (Non-Af Amer) ml/min BUN/Creatinine Ratio (10-20) Glucose (70-99(Fasting)) mg/dl POC Glucose 157 H 168 H (70-99) mg/dl Calcium (8.5-10.1) mg/dl Troponin I High Sens 8.1 (0-20) pg/ml 12/14/21 Range/Units 11:29 WBC (4.8-10.8) K/ul RBC (4.63-6.08) M/uL Hgb (14.0-18.0) g/dl Hct (40.1-51.0) % MCV (80.0-100.0) fL MCH (25.0-34.0) pg MCHC (32.0-36.0) g/dL RDW Std Deviation (36.4-46.3) fL RDW Coeff of Adrian (11.5-14.5) % Plt Count (130-400) K/uL MPV (9.4-12.4) fL Sodium (136-145) mmol/L Potassium (3.5-5.1) mmol/L Chloride (98-107) mmol/L Carbon Dioxide (21-32) mmol/L Anion Gap (3-11) BUN (6-23) mg/dl Creatinine (0.6-1.4) mg/dl Est Cr Clr Drug Dosing ml/min Est GFR ( Amer) ml/min Est GFR (Non-Af Amer) ml/min BUN/Creatinine Ratio (10-20) Glucose (70-99(Fasting)) mg/dl POC Glucose 177 H (70-99) mg/dl Calcium (8.5-10.1) mg/dl Troponin I High Sens (0-20) pg/ml Diagnostic Findings MRI FOOT 12/15 FINDINGS: Edema is seen in the bones of the fourth digit centering on the proximal interphalangeal joint. Expansion of the joint space is seen. Soft tissue edema and swelling are noted. There is heterogeneous signal on T2 and low T1 signal in the middle phalanges of the second and third digit as well without as evident soft tissue swelling. IMPRESSION: Findings are compatible with osteomyelitis in the fourth digit. There is likely involvement of the proximal interphalangeal joint. Questionable findings in the middle phalanges of the second and third digit are favored to be reactive/degenerative, however early osteomyelitis cannot be entirely excluded. ECHO 12/14 Left ventricular systolic function is normal, Grade I diastolic dysfunction No regional wall motion abnormalities noted Moderate concentric left ventricular hypertrophy EF 55-60% Moderate valvular aortic stenosis - progressed from last ECHO 03/06/19 Resident Activity Tracking Resident Involvement: Resident Care Provided Care Provided: Adult Hospital Medicine (1) Diabetes Diabetes mellitus complication status: with hyperglycemia Diabetes mellitus intermediate insulin use: with intermediate use Diabetes mellitus type: type 2 Qualified Code(s): E11.65 - Type 2 diabetes mellitus with hyperglycemia; 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 transplanted heart: [place] heart Qualified Code(s): I25.10 - Atherosclerotic heart disease of [place] coronary artery without angina pectoris (3) Cellulitis Laterality: unspecified laterality Site of cellulitis: extremity Site of cellulitis of extremity: lower extremity Qualified Code(s): L03.119 - Cellulitis of unspecified part of limb (4) Hypothyroidism Hypothyroidism type: unspecified Qualified Code(s): E03.9 - Hypothyroidism, unspecified (5) COPD (chronic obstructive pulmonary disease) COPD type: unspecified COPD Qualified Code(s): J44.9 - Chronic obstructive pulmonary disease, unspecified (6) Hypertension Hypertension type: essential hypertension Qualified Code(s): I10 - Essential (primary) hypertension
[2021-12-15] MEDS: MULTIVITAMIN TAB PO SCH (08:19)
[2021-12-15] MEDS: POTASSIUM CHLORIDE CRTAB 20 MEQ TABCR PO SCH ×3 (08:19→21:16)
[2021-12-15] MEDS: ASPIRIN 81 MG ECTAB PO SCH (08:20)
[2021-12-15] MEDS: PANTOprazole 40 MG TAB PO SCH (08:20)
[2021-12-15] MEDS: CLOPIDOGREL BISULFATE 75 MG TAB PO SCH (08:20)
[2021-12-15] MEDS: METOPROLOL TARTRATE 25 MG TAB PO SCH ×2 (08:20→21:16)
[2021-12-15] MEDS: DOCUSATE SODIUM 100 MG CAP PO SCH ×2 (08:20→21:21)
[2021-12-15] MEDS: GABAPENTIN 100 MG CAP PO SCH (08:20)
[2021-12-15] MEDS: FLUTICASONE/VILANTEROL 200/25MCG 14 PUFFS/INHALER INH SCH (08:20)
[2021-12-15] MEDS: UMECLIDINIUM BROMIDE 62.5MCG/BLISTER 7 PUFFS/INHALER INH SCH (08:20)
[2021-12-15 08:24] LABS: Hematocrit (blood only) 34.5 % (40.1-51.0); Hemoglobin 11.7 g/dl (14.0-18.0); Mean Corpuscular Hemoglobin 30.7 pg (25.0-34.0); Mean Corpuscular Hgb Conc 33.9 g/dL (32.0-36.0); Mean Corpuscular Volume 90.6 fL (80.0-100.0); Mean Platelet Volume 9.5 fL (9.4-12.4); Platelet Count 141 K/uL (130-400); RDW Coefficient of Variation 13.4 % (11.5-14.5); RDW Standard Deviation 44.3 fL (36.4-46.3); Red Blood Count 3.81 M/uL (4.63-6.08); White Blood Count 7.49 K/ul (4.8-10.8)
[2021-12-15] MEDS: clonazePAM 0.5 MG TAB PO SCH (08:24)
[2021-12-15] MEDS: LANTUS PER UNIT CHARGE SQ SCH ×2 (08:26→21:21)
[2021-12-15] MEDS: INSULIN ASPART PER UNIT SC SCH ×4 (08:26→21:21)
[2021-12-15] MEDS: HEPARIN SOD 5,000 UNIT/0.5 ML VIAL SQ SCH (08:27)
[2021-12-15] MEDS: BUMETANIDE 2 MG in SYRINGE 0 ML IV SCH (08:28)
[2021-12-15 09:07] LABS: BUN Creatinine Ratio 19.3 (10-20); Calcium 8.3 mg/dl (8.5-10.1); Creatinine Clr Calc Pharmacy 27.8 ml/min; Est GFR (African American) 31.7 ml/min; Est GFR (Non-African American) 27.4 ml/min; Potassium 4.2 mmol/L (3.5-5.1)
--- NOTE | 2021-12-15 09:09 | Magnetic Resonance Report ---
MR foot RT w/o con CLINICAL HISTORY: r/o osteomyelitis TECHNIQUE: Multiplanar multisequence MR images of the right foot were obtained. Comparison: Comparison is made to MRI right foot 12/19/2017 FINDINGS: Edema is seen in the bones of the fourth digit centering on the proximal interphalangeal joint. Expan bayron of the joint space is seen. Soft tissue edema and swelling are noted. There is heterogeneous sig nal on T2 and low T1 signal in the middle phalanges of the second and third digit as well without as evident soft tissue swelling. IMPRESSION: Findings are compatible with osteomyelitis in the fourth digit. There is likely involvement of the pr oximal interphalangeal joint. Questionable findings in the middle phalanges of the second and third d igit are favored to be reactive/degenerative, however early osteomyelitis cannot be entirely excluded . ACT 112: Negative or not required by law. Electronically signed by: Dano West M.D. 12/15/2021 9:06 AM
[2021-12-15] MEDS: amLODIPine BESYLATE 5 MG TAB PO SCH (09:12)
--- NOTE | 2021-12-15 11:03 | Cardiology Consultation ---
Date of Consultation December 15, 2021 Assessment & Plan (1) CAD (coronary artery disease): Continue outpatient therapy with aspirin 81 mg and clopidogral 75 mg (DAPT) (2) Mild aortic stenosis: Echocardiogram 12/14/21 showed worsening of patient's aortic stenosis. (3) Hypertension: Patient receives outpatient therapy with Losartan 25 mg and amlodipine 5 mg, Losartan currently on hold. Patient's blood pressure is currently stable (143/71) (4) Dyslipidemia: Continue outpatient management with simvastatin 40 mg. (5) Paroxysmal atrial fibrillation: Patient is in sinus. Continue outpatient therapy with metoprolol 25 mg BID. Patient is currently on DAPT (aspirin 81 and clopidogrel 75 mg) - patient received left atrial appendage ligation and pulmonary vein isolation in 2013, which is regarded as the primary alternative to anticoagulation for patients who have AF but have a contraindication precluding them from receiving long-term anticoagulation. DAPT is preffered to monotherapy with Aspirin in patients who cannot be treated with OAC. Patient has remained in sinus rhythm since 2013. (6) Peripheral vascular disease: Patient was previously seen by Dr. Rodriguez for revascularization. Arterial Doppler studies during this admission indicate worsening of small vessel disease. Patient requests to be re-evaluated by Dr. Rodriguez. (7) CHF (congestive heart failure): Patient is s/p 3 vessel CABG, epicardial RFA of pulmonary veins, and L. atrial appendage ligation in 2013. Patient continues to take DAPT - aspirin 81 mg and clopidogrel 75 mg. (8) Lower extremity edema: Patient takes home dosage of Bumex 3 mg PO BID. Patient is receiving Bumex 2 mg IV BID while inpatient. Diuresis has improved his lower extremity edema - was 3+ on admission and is now 2+. Echo showed EF 55-60% Plan Patient's episode of centralized, non-crushing/non-radiating chest pain with no associated symptoms is likely of muscular origin. Patient notes that his chest pain began when he was laying on his side and resolved when he changed position. ECG and troponin were evaluated and negative for acute changes. No further work- up is indicated. Patient has extensive peripheral artery disease as evidenced by arterial Doppler studies during admission. Aj is a prior patient of Dr. Rodriguez (seen at wound clinic) and requests to be evaluated by him again during this admission. Patient was evaluated by Podiatry for his diabetic skin infection and osteomyelitis of the right 4th digit of his foot, podiatry did not wish to proceed with additional antibiotics or surgical management and recommended vascular intervention by Dr. Rodriguez. Previous arterial doppler studies (prior to 2018) indicate that the patient had severe, small vessel peripheral artery disease that was more significant on the right. Upon evaluation this visit, it is evident that the disease has also become severe on the left side. Of note, the patient's diabetic foot infection is on the right side, upon initial evaluation of the patient his fourth digit on the right was deep purple/blue in color. With elevation, diuresis, and IV antibiotics inpatient, both the color of his 4th digit and his chronic LE edema have improved. Erythema remains on the right foot from the 2nd to 5th digits, but it is much improved from presentation. Advise to continue with outpatient medical management of his chronic cardiovascular conditions. Supervising Physician Co-Signing Physician Notes Patient seen and examined. Agree with Dr. Bradley' assessment and plan. Did experience an episode of musculoskeletal chest discomfort. No further cardiac evaluation necessary. Needs an opinion regarding peripheral vascular disease. Dr. Rodriguez will assume the patient's care tomorrow. Dr. Dallin Olmstead History of Present Illness Reason for Consultation: Chest Pain/Worsening Aortic Stenosis on Echocardiogram Requesting Physician: Adilene Lynne MD Attending Physician: Alexandru Harrell DO History of Present Illness HPI: Aj Monroy is an 86 year old male with past medical history of coronary artery disease, diabetes mellitus, hypertension, hyperlipidemia, aortic stenosis, peripheral artery disease, and paroxysmal atrial fibrillation who presented to the emergency department 12/05/21 for cellulitis in his lower extremities, patient subsequently failed outpatient antibiotic management and returned through the ED for admission to receive IV antibiotic management of his diabetes-related foot infection, lower extremity edema, and peripheral artery disease. Last evening 12/15/21, while resting in bed, the patient experienced superficial pain is his low, center chest. Patient notes that this pain would occur after laying on one side for an extended period of time and would resolve when he changed position. Patient denies any crushing chest pain, pain radiating down his left arm, nausea, vomiting, lightheadedness, dizziness, or headaches. Patient states that today, with exception to his right foot, he feels better than he has in a 'long time'. Aj received care from Dr. Rodriguez for peripheral artery disease in the past and requests to see him again. Cardiac History: * CAD - in November of 2013 the patient had a 3 vessel CABG (GALINDO to LAD, SVG to PDA and OM), epicardial RFA of pulmonary veins, and left atrial appendage ligation at [facility]. Patient remains on DAPT with aspirin 81 mg and clopidogrel 75 mg. * HTN - blood pressure is stable outpatient and managed with Losartan 25 mg and amlodipine 5 mg (higher dosages of amlodipien cause patient significant edema) * HLD - managed with simvastatin 40 mg * Aortic Stenosis - mild aortic stenosis was present on prior echocardiograms, has progressed to moderate as evidenced on Echo 12/14/21 * LVH - moderate left ventricular hypertrophy noted on echocardiogram during admission 12/14/21 * Paroxysmal AFib - patient managed on 25 mg metoprolol BID, patient is currently in sinus rhythm and has been since RFA and atrial appendage ligation in 2013 * Peripheral Artery Disease - aterial doppler studies evidenced severe small vessel disease bilaterally during admission 12/14/21 Family History: Brother - heart disease and diabetes mellitus, Sister - cancer (non-specific), Mother/Father - diabetes mellitus Social History: Patient never smoked or used tobacco products. He denies any alcohol or illicit substance use. Patient is ( - Subha, helps manage patient's care) Allergies Allergy/AdvReac Type Severity Reaction Status Date / Time ropinirole AdvReac Intermediate CHANGE IN Verified 12/13/21 21:22 MENTAL STATUS Home Medications Medication Instructions Recorded Confirmed Type albuterol sulfate 90 mcg/actuation 2 puffs inhalation QID PRN 01/10/19 12/13/21 History aerosol inhaler shortness of breath or wheezing budesonide-formoterol HFA 160 2 puffs inhalation BID 01/10/19 12/13/21 History mcg-4.5 mcg/actuation aerosol inhaler (Symbicort) docusate sodium 100 mg capsule 200 mg PO BID 01/10/19 12/13/21 History levothyroxine 88 mcg tablet 88 mcg PO DAILYBB #90 tabs 01/10/19 12/13/21 History metoprolol tartrate 25 mg tablet 25 mg PO BID #90 tabs 01/10/19 12/13/21 History multivitamin (Daily Multi-Vitamin) 1 tab PO DAILY 01/10/19 12/13/21 History potassium chloride 20 mEq 20 meq PO TID 01/10/19 12/13/21 History tablet,extended release tiotropium bromide 18 mcg capsule 1 cap inhalation DAILY #90 01/10/19 12/13/21 History with inhalation device (Spiriva inhalations with HandiHaler) finasteride 5 mg tablet 5 mg PO HS 04/23/19 12/13/21 History inulin 2 gram chewable tablet 2 g PO DAILY 04/23/19 12/13/21 History (Fiber Gummies) losartan 25 mg tablet 25 mg PO QAM 04/23/19 12/13/21 History tamsulosin 0.4 mg capsule 0.4 mg PO HS 04/23/19 12/13/21 History vit C,E,zinc,copper-[id number] 250 1 cap PO DAILY 04/23/19 12/13/21 History mg-lutein 5 mg-zeaxanthin 1 mg capsule (Ocuvite Adult 50 Plus) gabapentin 100 mg capsule 100 mg PO QAM #30 caps 02/21/20 12/13/21 History clonazepam 0.5 mg tablet 0.25 mg PO BID 03/16/20 12/13/21 History bumetanide 1 mg tablet 3 mg PO BID 12/16/20 12/13/21 History clonazepam 0.5 mg tablet 0.5 mg PO QPM 12/16/20 12/13/21 History diphenhydramine HCl 25 mg tablet 25 mg PO BID PRN Allergy Symptoms 12/16/20 12/13/21 History gabapentin 100 mg capsule 300 mg PO HS 12/16/20 12/13/21 History glipizide 10 mg tablet 10 mg PO BID 12/16/20 12/13/21 History pantoprazole 20 mg tablet,delayed 20 mg PO DAILY 12/16/20 12/13/21 History release clopidogrel 75 mg tablet 75 mg PO QAM 90 days #90 tabs 04/20/21 12/13/21 Rx Unknown Statin Medication 1 tab PO HS 10/11/21 12/13/21 History aspirin 81 mg tablet,delayed 81 mg PO DAILY 10/11/21 12/13/21 History release cephalexin 250 mg capsule 250 mg PO BID 10 days #20 caps 12/05/21 12/13/21 Rx amlodipine 5 mg tablet 5 mg PO DAILY 12/13/21 12/13/21 History doxycycline hyclate 100 mg capsule 100 mg PO BID 12/13/21 12/13/21 History insulin glargine 100 unit/mL (3 40 unit subcut PM 12/13/21 12/13/21 History mL) subcutaneous pen (Lantus Solostar U-100 Insulin) insulin glargine 100 unit/mL (3 54 unit subcut QAM 12/13/21 12/13/21 History mL) subcutaneous pen (Lantus Solostar U-100 Insulin) Patient History Medical History Acute bronchopneumonia Acute urinary retention Anxiety Aortic stenosis Mild per 03/06/19 stress ECHO Asthma Uses rescue inhaler a couple times per week Atrial fibrillation Follows with Dr. Maile Soares Blindness of left eye BPH (benign prostatic hyperplasia) CAD (coronary artery disease) Angioplasty ~1993, CABG x 3 2013 (GALINDO to LAD, SVG to PDA, SVG to OM) CHF (congestive heart failure) Chronic kidney disease Follows with Dr. Dixon Chronic obstructive pulmonary disease Diabetes Type 2 IDDM Foot ulcer GERD (gastroesophageal reflux disease) Herpes zoster Hiatal hernia Hyperlipidemia Hypertension Hypervolemia Hypothyroidism Leukocytosis Macular degeneration Myocardial infarct ~1993 Peripheral neuropathy Rupture of left distal biceps tendon hx - no surgery Secondary hyperparathyroidism (of renal origin) SIRS (systemic inflammatory response syndrome) Surgical History Fusion of spine lumbar History of appendectomy History of cardiac cath with angioplasty ~[facility] ([facility]) & 2013 ([facility]) History of cataract surgery bilateral History of coronary artery bypass graft x3 vessels ([facility] 2013) with epicardial RFA of pulmonary veins and left atrial appendage ligation History of revision of total replacement of right knee joint History of tonsillectomy History of tooth extraction History of total left knee replacement History of total right knee replacement Hx of colonoscopy Previous back surgery (08/26/12) S/P cholecystectomy Family History Brother Heart disease Diabetes Sister Cancer Mother Diabetes Father Diabetes Other Hypertension Kidney disease Social History Smoking Status: Never smoker Tobacco Type: Cigarettes Second Hand Exposure: No; Do You Dip or Chew Tobacco: No; Hx Alcohol Use: No Hx Substance Use: No Preferred Language: Barbadian Communication Ability: Effective Visual Impairment: Partially Limited Fiber 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 Required: No Beliefs That Will Affect Care: None marital status: Current Living Situation: Spouse Current Living Situation Comment: apartment, 1 level current occupational status: retired Feels Safe at Home: Yes Safety Concerns: Feels Safe At This Time Assistive Devices: Cane, Walker and Wheelchair Review of Systems Constitutional: no fever, no fatigue Eyes: no vision change Respiratory: no dyspnea, no pleuritic pain Cardiovascular: Additional Comments: no chest pain, no palpitations Gastrointestinal: no nausea, no emesis, no reflux symptoms Neurologic: no lightheadedness, dizziness, or headaches Physical Exam Physical Exam: well appearing male in no acute distress, alert, interactive Neck: carotid pulses palpable without audible bruits, no JVD Cardiovascular: normal S1/S2, RRR, 2/6 systolic murmur present at right second intercostal space Chest (Breasts): Additional Comments: no TTP of chest, costochondral junction, or ribs Musculoskeletal: 2+ lower extremity edema (improved from 3+ on admission), mild erythema of 2nd through 5th digits on right foot, mild TTP of right foot 4th digit, no purple/blue discoloration of 4th digit Results & Data ([facility]) Vital Signs (Past 12 Hours) Vital Signs Temp Pulse Pulse Resp BP Pulse Ox O2 Del Method 12/15/21 07:30 36.4 C L 61 18 145/69 H 95 Room Air 12/15/21 07:26 59 L 12/15/21 05:02 36.9 C 61 18 134/65 93 Room Air 12/14/21 23:44 36.7 C 63 18 161/63 H 96 Room Air Laboratory Results High sensitivity Troponin: 8.1 N BUN: 41 mg/dl H Cr 2.12 H Diagnostic Findings Echocardiogram 12/14/21: EF 55-60%, mild Aortic Stenosis (progrsesion from 03/06/19), moderate concentric left ventricular hypertrophy, left ventricular systolic function normal, no regional wall motion annomalies Arterial Duplex Scan of Lower Extremity: IMPRESSION: 1. Interval worsening of extensive atherosclerotic disease. Compared to the prior exam, there is new elevation of velocities in the right posterior tibial artery, low flow in the distal right anterior tibial artery, and no measurable flow in the distal left anterior tibial artery. Diminished flow in the distal left peroneal artery is also noted. 2. A prominent soft tissue mass in the right groin is favored to represent an enlarged lymph node, clinical correlation is recommended Venous Doppler Study Impression: No evidence of deep venous thrombus. ECG Additional Comments: EKG 12/14/21: sinus bradycardia with primary AV block, left axis deviation, right bundle branch block, inferior wall infarct of non-specific time frame PG Care Time/CCT Total # of Minutes Spent Total Time Spent with Patient: Total time spent is greater than 50% in coordination of care (as documented) at patient's floor/unit and/or counseling patient: [place] [address] Initial Inpt Care Lvl 3 Patient Type Established Medical Decision Making Moderate Complexity Diagnoses CAD (coronary artery disease) I25.10 Associated angina: without angina Coronary Disease-Associated Artery/Lesion type: [place] artery [place] vs. transplanted heart: [place] heart Mild aortic stenosis I35.0 Hypertension I10 Hypertension type: essential hypertension Dyslipidemia E78.5 Paroxysmal atrial fibrillation I48.0 Peripheral vascular disease I73.9 CHF (congestive heart failure) I50.9 Heart failure chronicity: unspecified Heart failure type: unspecified Lower extremity edema R60.0 Time Spent (min) 45 (1) CAD (coronary artery disease) Associated angina: without angina Coronary Disease-Associated Artery/Lesion type: [place] artery [place] vs. transplanted heart: [place] heart Qualified Code(s): I25.10 - Atherosclerotic heart disease of [place] coronary artery without angina pectoris (2) CHF (congestive heart failure) Heart failure chronicity: unspecified Heart failure type: unspecified Qualified Code(s): I50.9 - Heart failure, unspecified (3) Hypertension Hypertension type: essential hypertension Qualified Code(s): I10 - Essential (primary) hypertension
--- NOTE | 2021-12-15 13:35 | Podiatry Consultation ---
Date of Consultation December 15, 2021 Assessment & Plan (1) Lower extremity edema: Recommend for vascular surgery ( ) to make recommendations for his arterial status, I do not recommend amputation even with the history of a previous osteo to the 5th toe, at this point no wounds or openings present on the digit, this is likely ischemic pain related to PAD causing the color changes and pain, he will likely require vascular intervention. Thank you for this consult, will continue to monitor the patient and follow closely outpatient and I will continue to monitor recs (2) CHF (congestive heart failure): Heart failure chronicity: unspecified Heart failure type: unspecified Qualified Code(s): I50.9 - Heart failure, unspecified (3) Chronic kidney disease: (4) Peripheral vascular disease: History of Present Illness Reason for Consultation: right foot pain, ischemic Attending Physician: Alexandru Harrell, History of Present Illness Patient is a very pleasant 86 year old, known to my practice, seen at bedside with , hospitalist and PCP. discussed with me that he has had on going worsening pain of the right 5th and 4th toes, the toes have changed colors from blue to red and he has pain associated with the digits - patient has known history of PAD, known to , awaiting his recs, history of ulcer to b/l hallux and and a one point the 5th toe healed for many years, at this point there is no wound on the 4th or 5th toe, but history of prior osteomyelitis that healed. -at this point most concerning issue is vascular supply to the 4th and 5th toe, I showed the the delayed capillary refill time with the digits, that color changes associated with ischemia and the pain associated with ischemia Allergies Allergy/AdvReac Type Severity Reaction Status Date / Time ropinirole AdvReac Intermediate CHANGE IN Verified 12/13/21 21:22 MENTAL STATUS Home Medications Medication Instructions Recorded Confirmed Type albuterol sulfate 90 mcg/actuation 2 puffs inhalation QID PRN 01/10/19 12/13/21 History aerosol inhaler shortness of breath or wheezing budesonide-formoterol HFA 160 2 puffs inhalation BID 01/10/19 12/13/21 History mcg-4.5 mcg/actuation aerosol inhaler (Symbicort) docusate sodium 100 mg capsule 200 mg PO BID 01/10/19 12/13/21 History levothyroxine 88 mcg tablet 88 mcg PO DAILYBB #90 tabs 01/10/19 12/13/21 History metoprolol tartrate 25 mg tablet 25 mg PO BID #90 tabs 01/10/19 12/13/21 History multivitamin (Daily Multi-Vitamin) 1 tab PO DAILY 01/10/19 12/13/21 History potassium chloride 20 mEq 20 meq PO TID 01/10/19 12/13/21 History tablet,extended release tiotropium bromide 18 mcg capsule 1 cap inhalation DAILY #90 01/10/19 12/13/21 History with inhalation device (Spiriva inhalations with HandiHaler) finasteride 5 mg tablet 5 mg PO HS 04/23/19 12/13/21 History inulin 2 gram chewable tablet 2 g PO DAILY 04/23/19 12/13/21 History (Fiber Gummies) losartan 25 mg tablet 25 mg PO QAM 04/23/19 12/13/21 History tamsulosin 0.4 mg capsule 0.4 mg PO HS 04/23/19 12/13/21 History vit C,E,zinc,copper-[id number] 250 1 cap PO DAILY 04/23/19 12/13/21 History mg-lutein 5 mg-zeaxanthin 1 mg capsule (Ocuvite Adult 50 Plus) gabapentin 100 mg capsule 100 mg PO QAM #30 caps 02/21/20 12/13/21 History clonazepam 0.5 mg tablet 0.25 mg PO BID 03/16/20 12/13/21 History bumetanide 1 mg tablet 3 mg PO BID 12/16/20 12/13/21 History clonazepam 0.5 mg tablet 0.5 mg PO QPM 12/16/20 12/13/21 History diphenhydramine HCl 25 mg tablet 25 mg PO BID PRN Allergy Symptoms 12/16/20 12/13/21 History gabapentin 100 mg capsule 300 mg PO HS 12/16/20 12/13/21 History glipizide 10 mg tablet 10 mg PO BID 12/16/20 12/13/21 History pantoprazole 20 mg tablet,delayed 20 mg PO DAILY 12/16/20 12/13/21 History release clopidogrel 75 mg tablet 75 mg PO QAM 90 days #90 tabs 04/20/21 12/13/21 Rx Unknown Statin Medication 1 tab PO HS 05/16/22 07/18/22 History aspirin 81 mg tablet,delayed 81 mg PO DAILY 10/11/21 12/13/21 History release cephalexin 250 mg capsule 250 mg PO BID 10 days #20 caps 12/05/21 12/13/21 Rx amlodipine 5 mg tablet 5 mg PO DAILY 12/13/21 12/13/21 History doxycycline hyclate 100 mg capsule 100 mg PO BID 12/13/21 12/13/21 History insulin glargine 100 unit/mL (3 40 unit subcut PM 12/13/21 12/13/21 History mL) subcutaneous pen (Lantus Solostar U-100 Insulin) insulin glargine 100 unit/mL (3 54 unit subcut QAM 12/13/21 12/13/21 History mL) subcutaneous pen (Lantus Solostar U-100 Insulin) Patient History Medical History Acute bronchopneumonia Acute urinary retention Anxiety Aortic stenosis Mild per 03/06/19 stress ECHO Asthma Uses rescue inhaler a couple times per week Atrial fibrillation Follows with Dr. Maile Soares Blindness of left eye BPH (benign prostatic hyperplasia) CAD (coronary artery disease) Angioplasty ~1993, CABG x 3 2013 (GALINDO to LAD, SVG to PDA, SVG to OM) CHF (congestive heart failure) Chronic kidney disease Follows with Dr. Dixon Chronic obstructive pulmonary disease Diabetes Type 2 IDDM Foot ulcer GERD (gastroesophageal reflux disease) Herpes zoster Hiatal hernia Hyperlipidemia Hypertension Hypervolemia Hypothyroidism Leukocytosis Macular degeneration Myocardial infarct ~1993 Peripheral neuropathy Rupture of left distal biceps tendon hx - no surgery Secondary hyperparathyroidism (of renal origin) SIRS (systemic inflammatory response syndrome) Surgical History Fusion of spine lumbar History of appendectomy History of cardiac cath with angioplasty ~1993 ([facility]) & 2013 ([facility]) History of cataract surgery bilateral History of coronary artery bypass graft x3 vessels ([facility] 2013) with epicardial RFA of pulmonary veins and left atrial appendage ligation History of revision of total replacement of right knee joint History of tonsillectomy History of tooth extraction History of total left knee replacement History of total right knee replacement Hx of colonoscopy Previous back surgery (08/26/12) S/P cholecystectomy Family History Brother Heart disease Diabetes Sister Cancer Mother Diabetes Father Diabetes Other Hypertension Kidney disease Social History Smoking Status: Never smoker Tobacco Type: Cigarettes Second Hand Exposure: No; Do You Dip or Chew Tobacco: No; Hx Alcohol Use: No Hx Substance Use: No Preferred Language: Kosovan Communication Ability: Effective Visual Impairment: Partially Limited Photogeologist Required: No Beliefs That Will Affect Care: None marital status: Current Living Situation: Spouse Current Living Situation Comment: apartment, 1 level current occupational status: retired Feels Safe at Home: Yes Safety Concerns: Feels Safe At This Time Assistive Devices: Cane, Walker and Wheelchair Physical Exam Skin: right foot with history of PAD, decreased refill time noted to 4th and 5th toe right foot, mild blue discoloration with mild swelling, with likely rest pain secondary to ischemia Results & Data ([facility]) Vital Signs (Past 12 Hours) Vital Signs Temp Pulse Pulse Resp BP Pulse Ox O2 Del Method 12/15/21 11:16 36.5 C 64 18 143/71 H 95 Room Air 12/15/21 07:30 36.4 C L 61 18 145/69 H 95 Room Air 12/15/21 07:26 59 L 12/15/21 05:02 36.9 C 61 18 134/65 93 Room Air
[2021-12-15] MEDS ORDERED: BUMETANIDE 1 MG TAB PO SCH (17:00)
[2021-12-15] MEDS: BUMETANIDE 1 MG TAB PO SCH (17:10)
--- NOTE | 2021-12-15 18:09 | Billing Data ---
Date of Service December 15, 2021 Coding Level of Care Code 48562 Subseq Hosp Care Lvl 3
[2021-12-15] MEDS ORDERED: DAPTOmycin 475 MG in SYRINGE 0 ML IV SCH (21:00)
[2021-12-15] MEDS: FINASTERIDE 5 MG TAB PO SCH (21:16)
[2021-12-15] MEDS: TAMSULOSIN HCL 0.4 MG CAP PO SCH (21:16)
[2021-12-15] MEDS: GABAPENTIN 300 MG CAP PO SCH (21:16)
[2021-12-15] MEDS: clonazePAM 1 MG TAB PO SCH (21:20)
[2021-12-16] MEDS: LEVOTHYROXINE SODIUM 88 MCG TABLET PO SCH (05:37)
[2021-12-16] MEDS: PIPERACILLIN/TAZOBACTAM 4.5 GM in DEXTROSE 5% 100 ML IV SCH ×3 (05:37→20:52)
--- NOTE | 2021-12-16 06:53 | Hospitalist Progress Note ---
Date of Service December 16, 2021 Assessment & Plan (1) Diabetic infection of right foot: (2) Cellulitis: (3) Lower extremity edema: (4) CAD (coronary artery disease): (5) Diabetes: (6) Mild aortic stenosis: (7) Chronic kidney disease: (8) Benign prostatic hyperplasia with urinary obstruction: (9) COPD (chronic obstructive pulmonary disease): (10) Hypothyroidism: (11) Hypertension: (12) Dyslipidemia: (13) Paroxysmal atrial fibrillation: Plan Mr. Monroy is an 86 y/o male with a PMHx including CHF, CKD, mild aortic stenosis, peripheral vascular disease, BPH with LUTS, COPD, hypothyroidism, hypertension, dyslipidemia, paroxysmal atrial fibrillation, vitamin D deficiency , CAD, myocardial infarction, GERD and diabetes mellitus.The patient initially been seen in the emergency department for bilateral lower extremity cellulitis on 12/05/2021, where he received ceftriaxone 2 g IV, and then was discharged on Keflex and doxycycline orally. Patient did take his antibiotics as directed, had persistent worsening, and was referred to the ED for further treatment with IV antibiotics by his PCP. #Cellulitis#Diabetic infection#Osteo Diabetic infection/cellulitis of right foot/bilateral lower extremity - failure of outpatient treatment with Keflex and doxycycline. Since patient is diabetic, and has CKD, will place on daptomycin 4 mg kilogram IV every 24 hours and Zosyn 4.5 g IV every 8 hours. Lower extremity arterial Dopplers to compare to that done on 12/16 - showed worsening of atherosclerotic disease. [] MRI right foot shows signs of osteomyelitis in the 4th digit - consult pediatry - not convinced it needs surgical intervention: they rec vascular eval [] consult interventional cardiology for possible intervention - appreciate recs, Dr. Rodriguez is planning for an angio Monday [] continue daptomycin 4 mg/kg IV Q24 and Zosyn 4.5 g IV Q8 - day 3 of abx, f/u cultures NGTD 48 hr #LE Edema Bumex 2 mg IV BID - transition to Bumex 2 mg po BID. Ejection fraction was 50.1% on resting aspect of dobutamine stress echo from 03/06/2019 - repeat ECHO shows worsened , EF 55-60% #CAD/hypertension/atrial fibrillation/mild aortic stenosis/CP Patient has a history of CAD and [place] with stenting. He noted having CP over night. Repeat EKG this morning. Patient on tele. Repeat ECHO showed worsened , EF 55-60%. Grade I diastolic dysfunction. Moderate LVH. hsTrop 8.1. [] Continue amlodipine, aspirin, clopidogrel and metoprolol tartrate #T2DM Change insulin glargine from 54 to 40 units subcu every morning and 40 to 30 units subcu every evening. Hold glipizide 10 mg p.o. twice daily. Placed on Accu-Cheks before meals and at bedtime with NovoLog coverage per scale. HbA1c - 9.7. Patient hypoglycemic to 48 - decrease glargine to 10 units BID with SSI. Patient still hyperglycemic - change carb ratio to 8, CF 25, increase lantus to 15 BID. [] monitor #CKD Creatinine 2.25 on admission, with range 1.58-2.07 Follow renal function panel and magnesium labs serially [] Cr - 1.87 [] Hold losartan #BPH with urinary obstruction Continue tamsulosin 0.4 mg at bedtime and finasteride 5 mg at bedtime #COPD Continue routine inhalers #Hypothyroidism Continue levothyroxine #HTN Continue amlodipine, aspirin #Dyslipidemia Verify patient's outpatient medication, and begin when clarified #Paroxysmal a fib. See above Patient is not on anticoagulation diet: heart healthy code status: full DVT ppx: heparin dispo: Med/Tele Admission and Anticipated Discharge Date Admission Date: December 13, 2021 Supervising Physician Co-Signing Physician Notes I personally examined the patient and verified all [place] points of history and exam, discussed case, and agree with decision making with Dr Guera Menard feeling better. Vascular input appreciated. Patient okay with staying on IV antibiotics until intervention. vitals noted nad heent nc at mmm breathing unlabored R foot 4th toe less red and swollen minimal tenderness at worst. diabetic foot infection - from poor blood flow - dapto and zosyn, fortunately appears to be acutely improving, podiatry eval reassuring. For attempt at revascularization in a few days. Given that he failed outpatient treatmentand the most likely reason for failing outpatient treatment was poor accumulation of antibiotics at the site of infectionpatient and I discussed, and both feel it best to continue IV antibiotics until revascularizationthen if there is better blood flow to the foot, he will likely respond to p.o. antibiotics better. Therefore continue in the hospital for now. otherwise as above Subjective The patient notes that he is doing well today. He denies any pain, SOB, CP, fevers, or chills. He is about to ambulate without pain. Overall he is doing well. Review of Systems Review of Systems: See subjective/HPI Physical Exam Physical Exam: The patient is awake, alert and oriented 3, well developed and well nourished, normocephalic and atraumatic, lying in bed and in no acute distress. HEENT--PERRL, EOMI, moist mucous membranes. Neck--Trachea midline. Heart--normal S1 and S2. No murmurs, rubs or gallops. Lungs--clear bilaterally, no respiratory distress, no accessory muscle use. Abdomen--normal bowel sounds and soft. Extremities-- trace-1+ bilateral pretibial and pedal pitting edema L>R Skin -- Erythema involving toes 2 through 5 of right foot, and mild erythema of bilateral anterior tibial surface - significantly improved Neurologic--cranial nerves II through XII grossly intact. MSK--normal range of motion. Psychiatric--normal affect. Results & Data Results & Data ([facility]) Vital Signs (Past 12 Hours) Vital Signs Temp Pulse Pulse Resp BP Pulse Ox O2 Del Method 12/16/21 04:02 36.8 C 58 L 20 157/68 H 95 Room Air 12/15/21 22:20 59 L 12/15/21 23:33 36.4 C L 67 18 185/70 H 96 Room Air 12/15/21 19:31 36.3 C L 61 19 149/74 H 98 Room Air Laboratory Results 12/16/21 12/16/21 12/16/21 Range/Units 08:04 08:04 07:37 WBC 7.68 (4.8-10.8) K/ul RBC 4.00 L (4.63-6.08) M/uL Hgb 12.4 L (14.0-18.0) g/dl Hct 36.4 L (40.1-51.0) % MCV 91.0 (80.0-100.0) fL MCH 31.0 (25.0-34.0) pg MCHC 34.1 (32.0-36.0) g/dL RDW Std Deviation 44.3 (36.4-46.3) fL RDW Coeff of Adrian 13.3 (11.5-14.5) % Plt Count 161 (130-400) K/uL MPV 9.4 (9.4-12.4) fL Sodium 137 (136-145) mmol/L Potassium 4.1 (3.5-5.1) mmol/L Chloride 102 (98-107) mmol/L Carbon Dioxide 29 (21-32) mmol/L Anion Gap 6 (3-11) BUN 34 H (6-23) mg/dl Creatinine 1.87 H (0.6-1.4) mg/dl Est Cr Clr Drug Dosing 31.4 ml/min Est GFR ( Amer) 36.9 ml/min Est GFR (Non-Af Amer) 31.8 ml/min BUN/Creatinine Ratio 18.2 (10-20) Glucose 211 H (70-99(Fasting)) mg/dl POC Glucose 211 H (70-99) mg/dl Calcium 8.7 (8.5-10.1) mg/dl 12/15/21 12/15/21 12/15/21 Range/Units 20:27 16:34 11:43 WBC (4.8-10.8) K/ul RBC (4.63-6.08) M/uL Hgb (14.0-18.0) g/dl Hct (40.1-51.0) % MCV (80.0-100.0) fL MCH (25.0-34.0) pg MCHC (32.0-36.0) g/dL RDW Std Deviation (36.4-46.3) fL RDW Coeff of Adrian (11.5-14.5) % Plt Count (130-400) K/uL MPV (9.4-12.4) fL Sodium (136-145) mmol/L Potassium (3.5-5.1) mmol/L Chloride (98-107) mmol/L Carbon Dioxide (21-32) mmol/L Anion Gap (3-11) BUN (6-23) mg/dl Creatinine (0.6-1.4) mg/dl Est Cr Clr Drug Dosing ml/min Est GFR ( Amer) ml/min Est GFR (Non-Af Amer) ml/min BUN/Creatinine Ratio (10-20) Glucose (70-99(Fasting)) mg/dl POC Glucose 206 H 183 H 263 H (70-99) mg/dl Calcium (8.5-10.1) mg/dl Diagnostic Findings No new imaging Resident Activity Tracking Resident Involvement: Resident Care Provided Care Provided: Adult Hospital Medicine (1) Diabetes Diabetes mellitus complication status: with hyperglycemia Diabetes mellitus watermaster insulin use: with watermaster use Diabetes mellitus type: type 2 Qualified Code(s): E11.65 - Type 2 diabetes mellitus with hyperglycemia; Z79.4 - intermodal customer service (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 (2) CAD (coronary artery disease) Associated angina: without angina Coronary Disease-Associated Artery/Lesion type: seminole artery [place] vs. transplanted heart: seminole heart Qualified Code(s): I25.10 - Atherosclerotic heart disease of seminole coronary artery without angina pectoris (3) Cellulitis Laterality: unspecified laterality Site of cellulitis: extremity Site of cellulitis of extremity: lower extremity Qualified Code(s): L03.119 - Cellulitis of unspecified part of limb (4) Hypothyroidism Hypothyroidism type: unspecified Qualified Code(s): E03.9 - Hypothyroidism, unspecified (5) COPD (chronic obstructive pulmonary disease) COPD type: unspecified COPD Qualified Code(s): J44.9 - Chronic obstructive pulmonary disease, unspecified (6) Hypertension Hypertension type: essential hypertension Qualified Code(s): I10 - Essential (primary) hypertension
[2021-12-16 08:49] LABS: Hematocrit (blood only) 36.4 % (40.1-51.0); Hemoglobin 12.4 g/dl (14.0-18.0); Mean Corpuscular Hgb Conc 34.1 g/dL (32.0-36.0); Mean Platelet Volume 9.4 fL (9.4-12.4); Platelet Count 161 K/uL (130-400); RDW Coefficient of Variation 13.3 % (11.5-14.5); RDW Standard Deviation 44.3 fL (36.4-46.3); White Blood Count 7.68 K/ul (4.8-10.8)
[2021-12-16 09:07] LABS: BUN Creatinine Ratio 18.2 (10-20); Calcium 8.7 mg/dl (8.5-10.1); Creatinine Clr Calc Pharmacy 31.4 ml/min; Est GFR (African American) 36.9 ml/min; Est GFR (Non-African American) 31.8 ml/min; Potassium 4.1 mmol/L (3.5-5.1)
[2021-12-16] MEDS: POTASSIUM CHLORIDE CRTAB 20 MEQ TABCR PO SCH ×3 (10:54→20:36)
[2021-12-16] MEDS: BUMETANIDE 1 MG TAB PO SCH ×2 (10:55→18:04)
[2021-12-16] MEDS: PANTOprazole 40 MG TAB PO SCH (10:56)
[2021-12-16] MEDS: ASPIRIN 81 MG ECTAB PO SCH (10:56)
[2021-12-16] MEDS: amLODIPine BESYLATE 5 MG TAB PO SCH (10:57)
[2021-12-16] MEDS: CLOPIDOGREL BISULFATE 75 MG TAB PO SCH (10:57)
[2021-12-16] MEDS: METOPROLOL TARTRATE 25 MG TAB PO SCH ×2 (10:57→20:36)
[2021-12-16] MEDS: MULTIVITAMIN TAB PO SCH (10:57)
[2021-12-16] MEDS: UMECLIDINIUM BROMIDE 62.5MCG/BLISTER 7 PUFFS/INHALER INH SCH (10:58)
[2021-12-16] MEDS: DOCUSATE SODIUM 100 MG CAP PO SCH ×2 (10:58→20:35)
[2021-12-16] MEDS: GABAPENTIN 100 MG CAP PO SCH (10:58)
[2021-12-16] MEDS: FLUTICASONE/VILANTEROL 200/25MCG 14 PUFFS/INHALER INH SCH (10:58)
[2021-12-16] MEDS: HEPARIN SOD 5,000 UNIT/0.5 ML VIAL SQ SCH ×2 (10:59→20:37)
[2021-12-16] MEDS: clonazePAM 0.5 MG TAB PO SCH (10:59)
[2021-12-16] MEDS: INSULIN ASPART PER UNIT SC SCH ×4 (11:08→20:50)
[2021-12-16] MEDS: LANTUS PER UNIT CHARGE SQ SCH ×2 (11:08→20:50)
--- NOTE | 2021-12-16 12:26 | Podiatry Consultation ---
Date of Consultation December 16, 2021 Assessment & Plan (1) CHF (congestive heart failure): Recommend for patient to continue to see , scheduled this Monday for procedure, I still feel this is ischemic pain as opposed to infection, will need to see how patient responds to procedure and if circulation can be improved to help with his pain associated with PVD Heart failure chronicity: unspecified Heart failure type: unspecified Qualified Code(s): I50.9 - Heart failure, unspecified (2) Diabetes: Diabetes mellitus type: type 2 Diabetes mellitus prison insulin use: with prison use Diabetes mellitus complication status: with hyperglycemia Qualified Code(s): E11.65 - Type 2 diabetes mellitus with hyperglycemia; Z79.4 - medical terminologist (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 (3) Peripheral vascular disease: History of Present Illness Attending Physician: Alexandru Harrell, DO History of Present Illness Patient seen at bedside today, we had a nice chat about what 's thought were. Patient stated he is scheduled for Monday for angiography with to see what level his circulation flows to on his lower extremity, I reviewed most recent arterial results showing worsening vascular flow. Discussed that either he can improve his flow which hopefully helps his pain, he notes he has likely ischemic pain of the right toes 2-5, or if no intervention can be done to improve flow can consider vascular surgery referral or level of amputation that would heal to improve his pain. I sat with patient a while discussing that if his flow is not appropriate to his toes via the ROOF BOLTER or DP then a more proximal amputation would be required, he is understanding of this Additionally, I discussed that I felt we really shouldn't assume he needs an amputation, until after his procedure with Dr. Rodriguez to gain a better understanding of where an how is blood flow is compromised, patient was understanding and agreeable Allergies Allergy/AdvReac Type Severity Reaction Status Date / Time ropinirole AdvReac Intermediate CHANGE IN Verified 12/13/21 21:22 MENTAL STATUS Home Medications Medication Instructions Recorded Confirmed Type albuterol sulfate 90 mcg/actuation 2 puffs inhalation QID PRN 01/10/19 12/13/21 History aerosol inhaler shortness of breath or wheezing budesonide-formoterol HFA 160 2 puffs inhalation BID 01/10/19 12/13/21 History mcg-4.5 mcg/actuation aerosol inhaler (Symbicort) docusate sodium 100 mg capsule 200 mg PO BID 01/10/19 12/13/21 History levothyroxine 88 mcg tablet 88 mcg PO DAILYBB #90 tabs 01/10/19 12/13/21 History metoprolol tartrate 25 mg tablet 25 mg PO BID #90 tabs 01/10/19 12/13/21 History multivitamin (Daily Multi-Vitamin) 1 tab PO DAILY 01/10/19 12/13/21 History potassium chloride 20 mEq 20 meq PO TID 01/10/19 12/13/21 History tablet,extended release tiotropium bromide 18 mcg capsule 1 cap inhalation DAILY #90 01/10/19 12/13/21 History with inhalation device (Spiriva inhalations with HandiHaler) finasteride 5 mg tablet 5 mg PO HS 04/23/19 12/13/21 History inulin 2 gram chewable tablet 2 g PO DAILY 04/23/19 12/13/21 History (Fiber Gummies) losartan 25 mg tablet 25 mg PO QAM 04/23/19 12/13/21 History tamsulosin 0.4 mg capsule 0.4 mg PO HS 04/23/19 12/13/21 History vit C,E,zinc,copper-ffnfg9o 250 1 cap PO DAILY 04/23/19 12/13/21 History mg-lutein 5 mg-zeaxanthin 1 mg capsule (Ocuvite Adult 50 Plus) gabapentin 100 mg capsule 100 mg PO QAM #30 caps 02/21/20 12/13/21 History clonazepam 0.5 mg tablet 0.25 mg PO BID 03/16/20 12/13/21 History bumetanide 1 mg tablet 3 mg PO BID 12/16/20 12/13/21 History clonazepam 0.5 mg tablet 0.5 mg PO QPM 12/16/20 12/13/21 History diphenhydramine HCl 25 mg tablet 25 mg PO BID PRN Allergy Symptoms 12/16/20 12/13/21 History gabapentin 100 mg capsule 300 mg PO HS 12/16/20 12/13/21 History glipizide 10 mg tablet 10 mg PO BID 12/16/20 12/13/21 History pantoprazole 20 mg tablet,delayed 20 mg PO DAILY 12/16/20 12/13/21 History release clopidogrel 75 mg tablet 75 mg PO QAM 90 days #90 tabs 04/20/21 12/13/21 Rx Unknown Statin Medication 1 tab PO HS 10/11/21 12/13/21 History aspirin 81 mg tablet,delayed 81 mg PO DAILY 10/11/21 12/13/21 History release cephalexin 250 mg capsule 250 mg PO BID 10 days #20 caps 12/05/21 12/13/21 Rx amlodipine 5 mg tablet 5 mg PO DAILY 12/13/21 12/13/21 History doxycycline hyclate 100 mg capsule 100 mg PO BID 12/13/21 12/13/21 History insulin glargine 100 unit/mL (3 40 unit subcut PM 12/13/21 12/13/21 History mL) subcutaneous pen (Lantus Solostar U-100 Insulin) insulin glargine 100 unit/mL (3 54 unit subcut QAM 12/13/21 12/13/21 History mL) subcutaneous pen (Lantus Solostar U-100 Insulin) Patient History Medical History Acute bronchopneumonia Acute urinary retention Anxiety Aortic stenosis Mild per 03/06/19 stress ECHO Asthma Uses rescue inhaler a couple times per week Atrial fibrillation Follows with Dr. Maile Soares Blindness of left eye BPH (benign prostatic hyperplasia) CAD (coronary artery disease) Angioplasty ~1993, CABG x 3 2013 (GALINDO to LAD, SVG to PDA, SVG to OM) CHF (congestive heart failure) Chronic kidney disease Follows with Dr. Dixon Chronic obstructive pulmonary disease Diabetes Type 2 IDDM Foot ulcer GERD (gastroesophageal reflux disease) Herpes zoster Hiatal hernia Hyperlipidemia Hypertension Hypervolemia Hypothyroidism Leukocytosis Macular degeneration Myocardial infarct ~1993 Peripheral neuropathy Rupture of left distal biceps tendon hx - no surgery Secondary hyperparathyroidism (of renal origin) SIRS (systemic inflammatory response syndrome) Surgical History Fusion of spine lumbar History of appendectomy History of cardiac cath with angioplasty ~1993 ([facility]) & 2013 ([facility]) History of cataract surgery bilateral History of coronary artery bypass graft x3 vessels ([facility] 2013) with epicardial RFA of pulmonary veins and left atrial appendage ligation History of revision of total replacement of right knee joint History of tonsillectomy History of tooth extraction History of total left knee replacement History of total right knee replacement Hx of colonoscopy Previous back surgery (08/26/12) S/P cholecystectomy Family History Brother Heart disease Diabetes Sister Cancer Mother Diabetes Father Diabetes Other Hypertension Kidney disease Social History Smoking Status: Never smoker Tobacco Type: Cigarettes Second Hand Exposure: No; Do You Dip or Chew Tobacco: No; Hx Alcohol Use: No Hx Substance Use: No Preferred Language: Ivorian Communication Ability: Effective Visual Impairment: Partially Limited Software Test Developer Required: No Beliefs That Will Affect Care: None marital status: Current Living Situation: Spouse Current Living Situation Comment: apartment, 1 level current occupational status: retired Feels Safe at Home: Yes Safety Concerns: Feels Safe At This Time Assistive Devices: Cane, Walker and Wheelchair Physical Exam Skin: evaluated his toes, patient noting pain of the hallux - 5th toe, no wounds, early ischemic changes noted mostly to the 4th and 5th toe with mild bluish appearance and mild swelling, with delayed capillary refill Results & Data ([facility]) Vital Signs (Past 12 Hours) Vital Signs Temp Pulse Pulse Pulse Resp BP Pulse Ox 12/16/21 08:00 61 12/16/21 11:34 36.9 C 66 18 178/76 H 97 12/16/21 08:00 36.8 C 61 18 165/63 H 95 12/16/21 04:02 36.8 C 58 L 20 157/68 H 95 O2 Del Method 12/16/21 08:00 12/16/21 11:34 Room Air 12/16/21 08:00 Room Air 12/16/21 04:02 Room Air
--- NOTE | 2021-12-16 13:01 | Vascular Medicine Consultation ---
Date of Consultation December 16, 2021 Assessment & Plan (1) Peripheral vascular disease: 2. Coronary artery disease--status post CABG, PCI 3. Type 2 DM 4. CKD 5. HFpEF 6. Afib 7. COPD Exam and prior toe pressures consistent with severe arterial insufficency/critical limb ischemia. Arterial duplex this admission suggestive of occlusive tibial vessel disease. Recommend lower extremity angiogram and possible endovascular intervention. Procedure complicated by chronic renal insufficiency but SCr appears back to recent baseline. Plan on procedure on Monday. Thank you for allowing us to participate in the care of this patient. History of Present Illness Attending Physician: Alexandru Harrell DO History of Present Illness Mr. Monroy is an 86-year-old man seen today regarding LE PAD and CLIwhile admitted for lower extremity cellulitis. Medical history: -Multi-Vessel CAD s/p CABG x 3 Vessels (GALINDO to LAD, SVG to PDA, SVG to OM) 2013 -PAF post surgical ablation, GILBERTO ligation at time of CABG -Type 2 DM -CKD (baseline SCr ~1.6) - COPD - HFpEF - Mild - Hypertension Previously seen 12/2020 in the setting of slow healing ulcers of his great toes. Toe pressures at that time (right 32, left 62). Wound is healed without intervention. More recently has been dealing with increased swelling of his legs for the last several weeks. Began noticing more redness involving his third, fourth, fifth digits on his right foot. Seen in the ED 12/05/2021, no DVT on ultrasound and started on p.o. antibiotics for cellulitis. Admitted 12/13 for symptom progression andstarted on IV antibiotics. MRI suggestive of osteo on fourth digit. Evaluated by podiatry. No plans for surgical intervention Has received IVdiuretics for increased edema. Repeat echocardiogram showed preserved LV function. Today feeling well. States pain in RT foot much improved from admission. No pain at rest currently. Repeat arterial duplex 12/13/2021: RLEno stenosis with triphasic waveforms from WET ROLLER to popliteal. 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 Monophasic waveforms in tibials with stenosis and JUMA (PSV 288). Allergies Allergy/AdvReac Type Severity Reaction Status Date / Time ropinirole AdvReac Intermediate CHANGE IN Verified 12/13/21 21:22 MENTAL STATUS Home Medications Medication Instructions Recorded Confirmed Type albuterol sulfate 90 mcg/actuation 2 puffs inhalation QID PRN 01/10/19 12/13/21 History aerosol inhaler shortness of breath or wheezing budesonide-formoterol HFA 160 2 puffs inhalation BID 01/10/19 12/13/21 History mcg-4.5 mcg/actuation aerosol inhaler (Symbicort) docusate sodium 100 mg capsule 200 mg PO BID 01/10/19 12/13/21 History levothyroxine 88 mcg tablet 88 mcg PO DAILYBB #90 tabs 01/10/19 12/13/21 History metoprolol tartrate 25 mg tablet 25 mg PO BID #90 tabs 01/10/19 12/13/21 History multivitamin (Daily Multi-Vitamin) 1 tab PO DAILY 01/10/19 12/13/21 History potassium chloride 20 mEq 20 meq PO TID 01/10/19 12/13/21 History tablet,extended release tiotropium bromide 18 mcg capsule 1 cap inhalation DAILY #90 01/10/19 12/13/21 History with inhalation device (Spiriva inhalations with HandiHaler) finasteride 5 mg tablet 5 mg PO HS 04/23/19 12/13/21 History inulin 2 gram chewable tablet 2 g PO DAILY 04/23/19 12/13/21 History (Fiber Gummies) losartan 25 mg tablet 25 mg PO QAM 04/23/19 12/13/21 History tamsulosin 0.4 mg capsule 0.4 mg PO HS 04/23/19 12/13/21 History vit C,E,zinc,copper-bcjeu2y 250 1 cap PO DAILY 04/23/19 12/13/21 History mg-lutein 5 mg-zeaxanthin 1 mg capsule (Ocuvite Adult 50 Plus) gabapentin 100 mg capsule 100 mg PO QAM #30 caps 02/21/20 12/13/21 History clonazepam 0.5 mg tablet 0.25 mg PO BID 03/16/20 12/13/21 History bumetanide 1 mg tablet 3 mg PO BID 12/16/20 12/13/21 History clonazepam 0.5 mg tablet 0.5 mg PO QPM 12/16/20 12/13/21 History diphenhydramine HCl 25 mg tablet 25 mg PO BID PRN Allergy Symptoms 12/16/20 12/13/21 History gabapentin 100 mg capsule 300 mg PO HS 12/16/20 12/13/21 History glipizide 10 mg tablet 10 mg PO BID 12/16/20 12/13/21 History pantoprazole 20 mg tablet,delayed 20 mg PO DAILY 12/16/20 12/13/21 History release clopidogrel 75 mg tablet 75 mg PO QAM 90 days #90 tabs 04/20/21 12/13/21 Rx Unknown Statin Medication 1 tab PO HS 10/11/21 12/13/21 History aspirin 81 mg tablet,delayed 81 mg PO DAILY 10/11/21 12/13/21 History release cephalexin 250 mg capsule 250 mg PO BID 10 days #20 caps 12/05/21 12/13/21 Rx amlodipine 5 mg tablet 5 mg PO DAILY 12/13/21 12/13/21 History doxycycline hyclate 100 mg capsule 100 mg PO BID 12/13/21 12/13/21 History insulin glargine 100 unit/mL (3 40 unit subcut PM 12/13/21 12/13/21 History mL) subcutaneous pen (Lantus Solostar U-100 Insulin) insulin glargine 100 unit/mL (3 54 unit subcut QAM 12/13/21 12/13/21 History mL) subcutaneous pen (Lantus Solostar U-100 Insulin) Patient History Medical History Acute bronchopneumonia Acute urinary retention Anxiety Aortic stenosis Mild per 03/06/19 stress ECHO Asthma Uses rescue inhaler a couple times per week Atrial fibrillation Follows with Dr. Gr Bacteremia Blindness of left eye BPH (benign prostatic hyperplasia) CAD (coronary artery disease) Angioplasty ~1993, CABG x 3 2013 (GALINDO to LAD, SVG to PDA, SVG to OM) CHF (congestive heart failure) Chronic kidney disease Follows with Dr. Dixon Chronic obstructive pulmonary disease Diabetes Type 2 IDDM Foot ulcer GERD (gastroesophageal reflux disease) Herpes zoster Hiatal hernia Hyperlipidemia Hypertension Hypervolemia Hypothyroidism Leukocytosis Macular degeneration Myocardial infarct ~1993 Peripheral neuropathy Rupture of left distal biceps tendon hx - no surgery Secondary hyperparathyroidism (of renal origin) SIRS (systemic inflammatory response syndrome) Surgical History Fusion of spine lumbar History of appendectomy History of cardiac cath with angioplasty ~1993 ([facility]) & 2013 ([facility]) History of cataract surgery bilateral History of coronary artery bypass graft x3 vessels ([facility] 2013) with epicardial RFA of pulmonary veins and left atrial appendage ligation History of revision of total replacement of right knee joint History of tonsillectomy History of tooth extraction History of total left knee replacement History of total right knee replacement Hx of colonoscopy Previous back surgery (08/26/12) S/P cholecystectomy Family History Brother Heart disease Diabetes Sister Cancer Mother Diabetes Father Diabetes Other Hypertension Kidney disease Social History Smoking Status: Never smoker Tobacco Type: Cigarettes Second Hand Exposure: No; Do You Dip or Chew Tobacco: No; Hx Alcohol Use: No Hx Substance Use: No Preferred Language: Danish Communication Ability: Effective Visual Impairment: Partially Limited [employer] Required: No Beliefs That Will Affect Care: None marital status: Current Living Situation: Spouse Current Living Situation Comment: apartment, 1 level current occupational status: retired Feels Safe at Home: Yes Safety Concerns: Feels Safe At This Time Assistive Devices: Cane, Walker and Wheelchair Review of Systems Review of Systems: All systems reviewed & are unremarkable except as noted in HPI & below Physical Exam Physical Exam: General: No acute distress, comfortable. HEENT: Sclerae anicteric. Lungs: Clear to auscultation bilaterally without rales, rhonchi or wheezes. Cardiac: Regular rate and rhythm. S1-S2 normal. 2/6 systolic murmur Extremities/vascular: --Well perfused. Trace bilateral edema R>L to the ankle --Radial 2+ bilaterally --Femoral 2+ bilaterally --Popliteal 2+ bilaterally -- RT 2+ DP, PT diminished. LT 1+ DP/PT. --Capillary diminished 2-4th digits --RT foot-redish 3-5th digits. No ulcerations. No induration. No erythema in forefoot. Psychiatric: Affect appropriate. Alert and oriented Results & Data ([facility]) Vital Signs (Past 12 Hours) Vital Signs Temp Pulse Pulse Pulse Resp BP Pulse Ox 12/16/21 08:00 61 12/16/21 11:34 98.4 F 66 18 178/76 H 97 12/16/21 08:00 98.2 F 61 18 165/63 H 95 12/16/21 04:02 98.2 F 58 L 20 157/68 H 95 O2 Del Method 12/16/21 08:00 12/16/21 11:34 Room Air 12/16/21 08:00 Room Air 12/16/21 04:02 Room Air PG Care Time/CCT Total # of Minutes Spent Total Time Spent with Patient: Total time spent is greater than 50% in coordination of care (as documented) at patient's floor/unit and/or counseling patient: Coding Level of Care Code 54621 Initial Inpt Care Lvl 3 Diagnoses Peripheral vascular disease I73.9
--- NOTE | 2021-12-16 19:07 | Billing Data ---
Date of Service December 16, 2021 Coding Level of Care Code 96058 Subseq Hosp Care Lvl 3
[2021-12-16] MEDS: TAMSULOSIN HCL 0.4 MG CAP PO SCH (20:35)
[2021-12-16] MEDS: GABAPENTIN 300 MG CAP PO SCH (20:37)
[2021-12-16] MEDS: FINASTERIDE 5 MG TAB PO SCH (20:50)
[2021-12-16] MEDS: clonazePAM 1 MG TAB PO SCH (20:50)
[2021-12-16] MEDS ORDERED: DAPTOmycin 475 MG in SYRINGE 0 ML IV SCH (21:00)
[2021-12-17] MEDS: PIPERACILLIN/TAZOBACTAM 4.5 GM in DEXTROSE 5% 100 ML IV SCH ×3 (05:25→21:58)
[2021-12-17] MEDS: LEVOTHYROXINE SODIUM 88 MCG TABLET PO SCH (05:25)
--- NOTE | 2021-12-17 07:01 | Hospitalist Progress Note ---
Date of Service December 17, 2021 Assessment & Plan (1) Diabetic infection of right foot: (2) Cellulitis: (3) Lower extremity edema: (4) CAD (coronary artery disease): (5) Diabetes: (6) Mild aortic stenosis: (7) Chronic kidney disease: (8) Benign prostatic hyperplasia with urinary obstruction: (9) COPD (chronic obstructive pulmonary disease): (10) Hypothyroidism: (11) Hypertension: (12) Dyslipidemia: (13) Paroxysmal atrial fibrillation: Plan Mr. Monroy is an 86 y/o male with a PMHx including CHF, CKD, mild aortic stenosis, peripheral vascular disease, BPH with LUTS, COPD, hypothyroidism, hypertension, dyslipidemia, paroxysmal atrial fibrillation, vitamin D deficiency , CAD, myocardial infarction, GERD and diabetes mellitus.The patient initially been seen in the emergency department for bilateral lower extremity cellulitis on 12/05/2021, where he received ceftriaxone 2 g IV, and then was discharged on Keflex and doxycycline orally. Patient did take his antibiotics as directed, had persistent worsening, and was referred to the ED for further treatment with IV antibiotics by his PCP, now clinically improving and awaiting angio. #Cellulitis#Diabetic infection#Osteo Diabetic infection/cellulitis of right foot/bilateral lower extremity - failure of outpatient treatment with Keflex and doxycycline. Since patient is diabetic, and has CKD, will place on daptomycin 4 mg kilogram IV every 24 hours and Zosyn 4.5 g IV every 8 hours. Lower extremity arterial Dopplers to compare to that done on 12/16 - showed worsening of atherosclerotic disease. MRI of the right foot showed signs of osteomyelitis in the 4th digit. Pediatry recommended a vascular eval as they were not convinced that it needed surgical intervention. lumber scaler, Dr. Rodriguez, recommended angio Monday. Patient will stay in the hospital for IV abx until the procedure. [] continue daptomycin 4 mg/kg IV Q24 and Zosyn 4.5 g IV Q8 - day 4 of abx, f/u cultures NGTD 48 hr #LE Edema Bumex 2 mg IV BID - transition to Bumex 2 mg po BID. Ejection fraction was 50.1% on resting aspect of dobutamine stress echo from 03/06/2019 - repeat ECHO shows worsened , EF 55-60% #CAD/hypertension/atrial fibrillation/mild aortic stenosis/CP Patient has a history of CAD and VT with stenting. Patient on tele. Repeat ECHO showed worsened , EF 55-60%. Grade I diastolic dysfunction. Moderate LVH. hsTrop 8.1. [] Continue amlodipine, aspirin, clopidogrel and metoprolol tartrate #T2DM Change insulin glargine from 54 to 40 units subcu every morning and 40 to 30 units subcu every evening. Hold glipizide 10 mg p.o. twice daily. Placed on Accu-Cheks before meals and at bedtime with NovoLog coverage per scale. HbA1c - 9.7. Patient hypoglycemic to 48 - decrease glargine to 10 units BID with SSI. Patient still hyperglycemic - change carb ratio to 6, conversion factor 20, increase lantus to 20 BID. [] monitor #CKD Creatinine 2.25 on admission, with range 1.58-2.07 Follow renal function panel and magnesium labs serially [] Cr - 2.12 [] Hold losartan #BPH with urinary obstruction Continue tamsulosin 0.4 mg at bedtime and finasteride 5 mg at bedtime #COPD Continue routine inhalers #Hypothyroidism Continue levothyroxine #HTN Continue amlodipine, aspirin #Dyslipidemia Verify patient's outpatient medication, and begin when clarified #Paroxysmal a fib. See above Patient is not on anticoagulation diet: heart healthy code status: full DVT ppx: heparin dispo: Med/Tele Admission and Anticipated Discharge Date Admission Date: December 13, 2021 Supervising Physician Co-Signing Physician Notes I personally examined the patient and verified all aguayo points of history and exam, discussed case, and agree with decision making with Dr Lynne toe pain improved. walking the halls some. vitals noted nad heent nc at mmm breathing unlabored R foot 4th toe less red and swollen minimal tenderness at worst. diabetic foot infection - from poor blood flow - dapto and zosyn, fortunately appears to be acutely improving, podiatry eval reassuring. For attempt at revascularization on Monday. Given that he failed outpatient treatmentand the most likely reason for failing outpatient treatment was poor accumulation of antibiotics at the site of infectionpatient and I discussed, and both feel it best to continue IV antibiotics until revascularizationthen if there is better blood flow to the foot, he will likely respond to p.o. antibiotics better. Therefore continue in the hospital for now. Answered all questions the best my ability otherwise as above Subjective The patient notes that he is doing well today. He has no complaints. He has been up and out of bed walking around the unit. The patient denies any f/c/CP/SOB. Review of Systems Review of Systems: See subjective/HPI Physical Exam Physical Exam: The patient is awake, alert and oriented 3, well developed and well nourished, normocephalic and atraumatic, lying in bed and in no acute distress. HEENT--PERRL, EOMI, moist mucous membranes. Neck--Trachea midline. Heart--normal S1 and S2. No murmurs, rubs or gallops. Lungs--clear bilaterally, no respiratory distress, no accessory muscle use. Abdomen--soft. Extremities-- trace-1+ bilateral pretibial and pedal pitting edema L>R Skin -- Erythema involving toes 2 through 5 of right foot, and mild erythema of bilateral anterior tibial surface - significantly improved Neurologic--cranial nerves II through XII grossly intact. MSK--normal range of motion. Psychiatric--normal affect. Results & Data Results & Data ([facility]) Vital Signs (Past 12 Hours) Vital Signs Temp Pulse Pulse Resp BP Pulse Ox O2 Del Method 12/17/21 02:43 36.7 C 64 18 125/66 96 Room Air 12/17/21 00:00 65 12/16/21 23:13 36.4 C L 78 18 164/67 H 94 Room Air 12/16/21 19:55 36.5 C 71 18 137/76 97 Room Air Laboratory Results 12/17/21 12/17/21 12/17/21 Range/Units 07:53 07:07 07:07 WBC 8.78 (4.8-10.8) K/ul RBC 4.21 L (4.63-6.08) M/uL Hgb 13.0 L (14.0-18.0) g/dl Hct 38.8 L (40.1-51.0) % MCV 92.2 (80.0-100.0) fL MCH 30.9 (25.0-34.0) pg MCHC 33.5 (32.0-36.0) g/dL RDW Std Deviation 45.2 (36.4-46.3) fL RDW Coeff of Adrian 13.3 (11.5-14.5) % Plt Count 166 (130-400) K/uL MPV 9.4 (9.4-12.4) fL Sodium 136 (136-145) mmol/L Potassium 4.2 (3.5-5.1) mmol/L Chloride 101 (98-107) mmol/L Carbon Dioxide 28 (21-32) mmol/L Anion Gap 7 (3-11) BUN 35 H (6-23) mg/dl Creatinine 2.14 H (0.6-1.4) mg/dl Est Cr Clr Drug Dosing 26.9 ml/min Est GFR ( Amer) 31.3 ml/min Est GFR (Non-Af Amer) 27.0 ml/min BUN/Creatinine Ratio 16.4 (10-20) Glucose 208 H (70-99(Fasting)) mg/dl POC Glucose 248 H (70-99) mg/dl Calcium 9.1 (8.5-10.1) mg/dl 12/16/21 12/16/21 12/16/21 Range/Units 20:35 16:30 11:36 WBC (4.8-10.8) K/ul RBC (4.63-6.08) M/uL Hgb (14.0-18.0) g/dl Hct (40.1-51.0) % MCV (80.0-100.0) fL MCH (25.0-34.0) pg MCHC (32.0-36.0) g/dL RDW Std Deviation (36.4-46.3) fL RDW Coeff of Adrian (11.5-14.5) % Plt Count (130-400) K/uL MPV (9.4-12.4) fL Sodium (136-145) mmol/L Potassium (3.5-5.1) mmol/L Chloride (98-107) mmol/L Carbon Dioxide (21-32) mmol/L Anion Gap (3-11) BUN (6-23) mg/dl Creatinine (0.6-1.4) mg/dl Est Cr Clr Drug Dosing ml/min Est GFR ( Amer) ml/min Est GFR (Non-Af Amer) ml/min BUN/Creatinine Ratio (10-20) Glucose (70-99(Fasting)) mg/dl POC Glucose 257 H 111 H 352 H* (70-99) mg/dl Calcium (8.5-10.1) mg/dl 12/16/21 12/16/21 12/16/21 Range/Units 11:35 08:04 08:04 WBC 7.68 (4.8-10.8) K/ul RBC 4.00 L (4.63-6.08) M/uL Hgb 12.4 L (14.0-18.0) g/dl Hct 36.4 L (40.1-51.0) % MCV 91.0 (80.0-100.0) fL MCH 31.0 (25.0-34.0) pg MCHC 34.1 (32.0-36.0) g/dL RDW Std Deviation 44.3 (36.4-46.3) fL RDW Coeff of Adrian 13.3 (11.5-14.5) % Plt Count 161 (130-400) K/uL MPV 9.4 (9.4-12.4) fL Sodium 137 (136-145) mmol/L Potassium 4.1 (3.5-5.1) mmol/L Chloride 102 (98-107) mmol/L Carbon Dioxide 29 (21-32) mmol/L Anion Gap 6 (3-11) BUN 34 H (6-23) mg/dl Creatinine 1.87 H (0.6-1.4) mg/dl Est Cr Clr Drug Dosing 31.4 ml/min Est GFR ( Amer) 36.9 ml/min Est GFR (Non-Af Amer) 31.8 ml/min BUN/Creatinine Ratio 18.2 (10-20) Glucose 211 H (70-99(Fasting)) mg/dl POC Glucose 353 H* (70-99) mg/dl Calcium 8.7 (8.5-10.1) mg/dl Diagnostic Findings No new imaging. Resident Activity Tracking Resident Involvement: Resident Care Provided Care Provided: Adult Hospital Medicine (1) Diabetes Diabetes mellitus complication status: with hyperglycemia Diabetes mellitus shelter insulin use: with bed bug exterminator use Diabetes mellitus type: type 2 Eugenio lified Code(s): E11.65 - Type 2 diabetes mellitus with hyperglycemia; Z79.4 - senior care (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 (2) CAD (coronary artery disease) Associated angina: without angina Coronary Disease-Associated Artery/Lesion type: unga artery [place] vs. transplanted heart: unga heart Qualified Code(s): I25.10 - Atherosclerotic heart disease of unga coronary artery without angina pectoris (3) Cellulitis Laterality: unspecified laterality Site of cellulitis: extremity Site of cellulitis of extremity: lower extremity Qualified Code(s): L03.119 - Cellulitis of unspecified part of limb (4) Hypothyroidism Hypothyroidism type: unspecified Qualified Code(s): E03.9 - Hypothyroidism, unspecified (5) COPD (chronic obstructive pulmonary disease) COPD type: unspecified COPD Qualified Code(s): J44.9 - Chronic obstructive pulmonary disease, unspecified (6) Hypertension Hypertension type: essential hypertension Qualified Code(s): I10 - Essential (primary) hypertension
[2021-12-17 07:28] LABS: Hematocrit (blood only) 38.8 % (40.1-51.0); Mean Corpuscular Hemoglobin 30.9 pg (25.0-34.0); Mean Corpuscular Hgb Conc 33.5 g/dL (32.0-36.0); Mean Corpuscular Volume 92.2 fL (80.0-100.0); Mean Platelet Volume 9.4 fL (9.4-12.4); Platelet Count 166 K/uL (130-400); RDW Coefficient of Variation 13.3 % (11.5-14.5); RDW Standard Deviation 45.2 fL (36.4-46.3); Red Blood Count 4.21 M/uL (4.63-6.08); White Blood Count 8.78 K/ul (4.8-10.8)
[2021-12-17 07:55] LABS: BUN Creatinine Ratio 16.4 (10-20); Calcium 9.1 mg/dl (8.5-10.1); Creatinine Clr Calc Pharmacy 26.9 ml/min; Est GFR (African American) 31.3 ml/min; Potassium 4.2 mmol/L (3.5-5.1)
[2021-12-17] MEDS: ASPIRIN 81 MG ECTAB PO SCH (08:29)
[2021-12-17] MEDS: GABAPENTIN 100 MG CAP PO SCH (08:29)
[2021-12-17] MEDS: METOPROLOL TARTRATE 25 MG TAB PO SCH ×2 (08:29→19:47)
[2021-12-17] MEDS: CLOPIDOGREL BISULFATE 75 MG TAB PO SCH (08:29)
[2021-12-17] MEDS: POTASSIUM CHLORIDE CRTAB 20 MEQ TABCR PO SCH ×3 (08:30→21:57)
[2021-12-17] MEDS: DOCUSATE SODIUM 100 MG CAP PO SCH ×2 (08:30→19:51)
[2021-12-17] MEDS: MULTIVITAMIN TAB PO SCH (08:30)
[2021-12-17] MEDS: BUMETANIDE 1 MG TAB PO SCH ×2 (08:30→16:54)
[2021-12-17] MEDS: amLODIPine BESYLATE 5 MG TAB PO SCH (08:30)
[2021-12-17] MEDS: HEPARIN SOD 5,000 UNIT/0.5 ML VIAL SQ SCH ×2 (08:30→19:45)
[2021-12-17] MEDS: FLUTICASONE/VILANTEROL 200/25MCG 14 PUFFS/INHALER INH SCH (08:30)
[2021-12-17] MEDS: UMECLIDINIUM BROMIDE 62.5MCG/BLISTER 7 PUFFS/INHALER INH SCH (08:30)
[2021-12-17] MEDS: PANTOprazole 40 MG TAB PO SCH (08:31)
[2021-12-17] MEDS: INSULIN ASPART PER UNIT SC SCH ×4 (08:40→21:33)
[2021-12-17] MEDS: clonazePAM 0.5 MG TAB PO SCH (08:40)
[2021-12-17] MEDS: LANTUS PER UNIT CHARGE SQ SCH (08:41)
[2021-12-17] MEDS ORDERED: LANTUS PER UNIT CHARGE SQ ONE (14:07)
--- NOTE | 2021-12-17 19:05 | Billing Data ---
Date of Service December 17, 2021 Coding Level of Care Code 05733 Subseq Hosp Care Lvl 3
[2021-12-17] MEDS: GABAPENTIN 300 MG CAP PO SCH (19:44)
[2021-12-17] MEDS: FINASTERIDE 5 MG TAB PO SCH (19:44)
[2021-12-17] MEDS: TAMSULOSIN HCL 0.4 MG CAP PO SCH (19:48)
[2021-12-17] MEDS ORDERED: LANTUS PER UNIT CHARGE SQ SCH (21:00)
[2021-12-17] MEDS: clonazePAM 1 MG TAB PO SCH (21:31)
[2021-12-18] MEDS: PIPERACILLIN/TAZOBACTAM 4.5 GM in DEXTROSE 5% 100 ML IV SCH ×3 (05:33→21:04)
[2021-12-18] MEDS: LEVOTHYROXINE SODIUM 88 MCG TABLET PO SCH (05:34)
--- NOTE | 2021-12-18 06:55 | Hospitalist Progress Note ---
Date of Service December 18, 2021 Assessment & Plan (1) Diabetic infection of right foot: (2) Cellulitis: (3) Lower extremity edema: (4) CAD (coronary artery disease): (5) Diabetes: (6) Mild aortic stenosis: (7) Chronic kidney disease: (8) Benign prostatic hyperplasia with urinary obstruction: (9) COPD (chronic obstructive pulmonary disease): (10) Hypothyroidism: (11) Hypertension: (12) Dyslipidemia: (13) Paroxysmal atrial fibrillation: Plan Mr. Monroy is an 86 y/o male with a PMHx including CHF, CKD, mild aortic stenosis, peripheral vascular disease, BPH with LUTS, COPD, hypothyroidism, hypertension, dyslipidemia, paroxysmal atrial fibrillation, vitamin D deficiency , CAD, myocardial infarction, GERD and diabetes mellitus.The patient initially been seen in the emergency department for bilateral lower extremity cellulitis on 12/05/2021, where he received ceftriaxone 2 g IV, and then was discharged on Keflex and doxycycline orally. Patient did take his antibiotics as directed, had persistent worsening, and was referred to the ED for further treatment with IV antibiotics by his PCP, now clinically improving and awaiting angio. #Cellulitis#Diabetic infection#Osteo Diabetic infection/cellulitis of right foot/bilateral lower extremity - failure of outpatient treatment with Keflex and doxycycline. Since patient is diabetic, and has CKD, will place on daptomycin 4 mg kilogram IV every 24 hours and Zosyn 4.5 g IV every 8 hours. Lower extremity arterial Dopplers to compare to that done on 12/16 - showed worsening of atherosclerotic disease. MRI of the right foot showed signs of osteomyelitis in the 4th digit. Pediatry recommended a vascular eval as they were not convinced that it needed surgical intervention. customer marketing assistant, Dr. Rodriguez, recommended angio Monday. Patient will stay in the hospital for IV abx until the procedure. [] continue daptomycin 4 mg/kg IV Q24 and Zosyn 4.5 g IV Q8 - day 5 of abx, f/u cultures NGTD 48 hr #LE Edema Bumex 2 mg IV BID - transition to Bumex 2 mg po BID. Ejection fraction was 50.1% on resting aspect of dobutamine stress echo from 03/06/2019 - repeat ECHO shows worsened , EF 55-60% #CAD/hypertension/atrial fibrillation/mild aortic stenosis/CP Patient has a history of CAD and [place] with stenting. Patient on tele. Repeat ECHO showed worsened , EF 55-60%. Grade I diastolic dysfunction. Moderate LVH. hsTrop 8.1. [] Continue amlodipine, aspirin, clopidogrel and metoprolol tartrate #T2DM Change insulin glargine from 54 to 40 units subcu every morning and 40 to 30 units subcu every evening. Hold glipizide 10 mg p.o. twice daily. Placed on Accu-Cheks before meals and at bedtime with NovoLog coverage per scale. HbA1c - 9.7. Patient hypoglycemic to 48 - decrease glargine to 10 units BID with SSI. Patient still hyperglycemic - change carb ratio to 6, conversion factor 20, increase lantus to 20 BID. [] monitor #CKD Creatinine 2.25 on admission, with range 1.58-2.07 Follow renal function panel and magnesium labs serially [] Cr - 2.02 today [] Hold losartan #BPH with urinary obstruction Continue tamsulosin 0.4 mg at bedtime and finasteride 5 mg at bedtime #COPD Continue routine inhalers #Hypothyroidism Continue levothyroxine #HTN Continue amlodipine, aspirin #Dyslipidemia Verify patient's outpatient medication, and begin when clarified #Paroxysmal a fib. See above Patient is not on anticoagulation diet: heart healthy code status: full DVT ppx: heparin dispo: Med/Tele Admission and Anticipated Discharge Date Admission Date: December 13, 2021 Subjective The patient states he is doing well today and has been able to walk laps around the unit with his . He denies any fever, chills, SOB, or chest pain. Review of Systems Review of Systems: All systems reviewed & are unremarkable except as noted in HPI & below Physical Exam Constitutional: WD/WN, vitals as above ENMT: external ear and nose normal, oropharynx normal Respiratory: normal respiratory effort, lungs clear to auscultation Cardiovascular: Rate/Rhythm: regular rate and regular rhythm Extremities: + pedal edema (L>R +1 pedal edema) and + edema (Left lower extremity +1 pretibial edema) Gastrointestinal (Abdomen): normal bowel sounds, soft, nontender, no hep atosplenomegaly Skin: erythema surrounding 3-5th digits of right foot Results & Data Results & Data ([facility]) Vital Signs (Past 12 Hours) Vital Signs Temp Pulse Pulse Resp BP BP Pulse Ox 12/18/21 04:00 36.5 C 61 18 145/70 H 96 12/17/21 22:17 65 12/18/21 00:00 36.4 C L 65 18 130/65 94 12/17/21 20:00 36.7 C 68 18 134/71 94 O2 Del Method 12/18/21 04:00 Room Air 12/17/21 22:17 12/18/21 00:00 Room Air 12/17/21 20:00 Room Air Laboratory Results 12/18/21 12/18/21 12/18/21 Range/Units 11:22 08:13 08:13 WBC 7.58 (4.8-10.8) K/ul RBC 3.89 L (4.63-6.08) M/uL Hgb 12.1 L (14.0-18.0) g/dl Hct 34.8 L (40.1-51.0) % MCV 89.5 (80.0-100.0) fL MCH 31.1 (25.0-34.0) pg MCHC 34.8 (32.0-36.0) g/dL RDW Std Deviation 43.4 (36.4-46.3) fL RDW Coeff of Adrian 13.3 (11.5-14.5) % Plt Count 168 (130-400) K/uL MPV 9.5 (9.4-12.4) fL Sodium 138 (136-145) mmol/L Potassium 4.0 (3.5-5.1) mmol/L Chloride 104 (98-107) mmol/L Carbon Dioxide 26 (21-32) mmol/L Anion Gap 8 (3-11) BUN 36 H (6-23) mg/dl Creatinine 2.02 H (0.6-1.4) mg/dl Est Cr Clr Drug Dosing 28.1 ml/min Est GFR ( Amer) 33.6 ml/min Est GFR (Non-Af Amer) 29.0 ml/min BUN/Creatinine Ratio 17.8 (10-20) Glucose 139 H (70-99(Fasting)) mg/dl POC Glucose 189 H (70-99) mg/dl Calcium 8.8 (8.5-10.1) mg/dl 12/18/21 12/17/21 12/17/21 Range/Units 07:54 20:41 16:22 WBC (4.8-10.8) K/ul RBC (4.63-6.08) M/uL Hgb (14.0-18.0) g/dl Hct (40.1-51.0) % MCV (80.0-100.0) fL MCH (25.0-34.0) pg MCHC (32.0-36.0) g/dL RDW Std Deviation (36.4-46.3) fL RDW Coeff of Adrian (11.5-14.5) % Plt Count (130-400) K/uL MPV (9.4-12.4) fL Sodium (136-145) mmol/L Potassium (3.5-5.1) mmol/L Chloride (98-107) mmol/L Carbon Dioxide (21-32) mmol/L Anion Gap (3-11) BUN (6-23) mg/dl Creatinine (0.6-1.4) mg/dl Est Cr Clr Drug Dosing ml/min Est GFR ( Amer) ml/min Est GFR (Non-Af Amer) ml/min BUN/Creatinine Ratio (10-20) Glucose (70-99(Fasting)) mg/dl POC Glucose 141 H 278 H 113 H (70-99) mg/dl Calcium (8.5-10.1) mg/dl Resident Activity Tracking Resident Involvement: Resident Care Provided Care Provided: Adult [facility] Medicine (1) Diabetes Diabetes mellitus complication status: with hyperglycemia Diabetes mellitus correction insulin use: with intermediate teacher use Diabetes mellitus type: type 2 Qualified Code(s): E11.65 - Type 2 diabetes mellitus with hyperglycemia; Z79.4 - watermaster (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 (2) CAD (coronary artery disease) Associated angina: without angina Coronary Disease-Associated Artery/Lesion type: [place] artery [place] vs. transplanted heart: [place] heart Qualified Code(s): I25.10 - Atherosclerotic heart disease of [place] coronary artery without angina pectoris (3) Cellulitis Laterality: unspecified laterality Site of cellulitis: extremity Site of cellulitis of extremity: lower extremity Qualified Code(s): L03.119 - Cellulitis of unspecified part of limb (4) Hypothyroidism Hypothyroidism type: unspecified Qualified Code(s): E03.9 - Hypothyroidism, unspecified (5) COPD (chronic obstructive pulmonary disease) COPD type: unspecified COPD Qualified Code(s): J44.9 - Chronic obstructive pulmonary disease, unspecified (6) Hypertension Hypertension type: essential hypertension Qualified Code(s): I10 - Essential (primary) hypertension
[2021-12-18 08:40] LABS: Hematocrit (blood only) 34.8 % (40.1-51.0); Hemoglobin 12.1 g/dl (14.0-18.0); Mean Corpuscular Hemoglobin 31.1 pg (25.0-34.0); Mean Corpuscular Hgb Conc 34.8 g/dL (32.0-36.0); Mean Corpuscular Volume 89.5 fL (80.0-100.0); Mean Platelet Volume 9.5 fL (9.4-12.4); Platelet Count 168 K/uL (130-400); RDW Coefficient of Variation 13.3 % (11.5-14.5); RDW Standard Deviation 43.4 fL (36.4-46.3); Red Blood Count 3.89 M/uL (4.63-6.08); White Blood Count 7.58 K/ul (4.8-10.8)
[2021-12-18 09:09] LABS: BUN Creatinine Ratio 17.8 (10-20); Calcium 8.8 mg/dl (8.5-10.1); Creatinine Clr Calc Pharmacy 28.1 ml/min; Est GFR (African American) 33.6 ml/min
[2021-12-18] MEDS: ASPIRIN 81 MG ECTAB PO SCH (09:10)
[2021-12-18] MEDS: GABAPENTIN 100 MG CAP PO SCH (09:10)
[2021-12-18] MEDS: amLODIPine BESYLATE 5 MG TAB PO SCH (09:10)
[2021-12-18] MEDS: BUMETANIDE 1 MG TAB PO SCH ×2 (09:10→16:41)
[2021-12-18] MEDS: METOPROLOL TARTRATE 25 MG TAB PO SCH ×2 (09:11→21:02)
[2021-12-18] MEDS: UMECLIDINIUM BROMIDE 62.5MCG/BLISTER 7 PUFFS/INHALER INH SCH (09:11)
[2021-12-18] MEDS: PANTOprazole 40 MG TAB PO SCH (09:11)
[2021-12-18] MEDS: CLOPIDOGREL BISULFATE 75 MG TAB PO SCH (09:11)
[2021-12-18] MEDS: MULTIVITAMIN TAB PO SCH (09:11)
[2021-12-18] MEDS: HEPARIN SOD 5,000 UNIT/0.5 ML VIAL SQ SCH ×2 (09:11→21:02)
[2021-12-18] MEDS: FLUTICASONE/VILANTEROL 200/25MCG 14 PUFFS/INHALER INH SCH (09:11)
[2021-12-18] MEDS: POTASSIUM CHLORIDE CRTAB 20 MEQ TABCR PO SCH ×3 (09:21→21:03)
[2021-12-18] MEDS: clonazePAM 0.5 MG TAB PO SCH (09:21)
[2021-12-18] MEDS: DOCUSATE SODIUM 100 MG CAP PO SCH ×2 (09:21→20:59)
[2021-12-18] MEDS: INSULIN ASPART PER UNIT SC SCH ×4 (09:22→22:19)
[2021-12-18] MEDS: LANTUS PER UNIT CHARGE SQ SCH ×2 (09:22→22:20)
--- NOTE | 2021-12-18 17:51 | Hospitalist Progress Note ---
Date of Service December 18, 2021 Assessment & Plan Admission and Anticipated Discharge Date Admission Date: December 13, 2021 Supervising Physician Co-Signing Physician Notes I personally examined the patient and verified all aguayo points of history and exam, discussed case, and agree with decision making with Dr Lynne walking a lot - then L ankle started hurting. R toe far better. Notes he has never had a gout flare. vitals noted nad heent nc at mmm breathing unlabored R foot 4th toe less red and swollen similar to yesterday. Left ankle swollen, some surrounding edema, not erythematous, joint line is quite tender to palpation. diabetic foot infection - from poor blood flow - dapto and zosyn, fortunately appears to be acutely improving, podiatry eval reassuring. For attempt at revascularization on Monday. Given that he failed outpatient treatmentand the most likely reason for failing outpatient treatment was poor accumulation of antibiotics at the site of infectionpatient and I discussed, and both feel it best to continue IV antibiotics until revascularizationthen if there is better blood flow to the foot, he will likely respond to p.o. antibiotics better. Therefore continue in the hospital for now. For vascular procedure Monday Left ankle pain and edemagiven that he has been in the hospital, lower extremity venous Doppler to rule out DVT, but more than likely this appears most consistent with an OA flarewe had been discussing that his left ankle restricted range of motion seems most consistent with OA, and then with walking, I suspect he probably does flare of the arthritis. As long as venous Dopplers negative, Voltaren gel 4 times daily. otherwise as above Results & Data Results & Data ([facility]) Vital Signs (Past 12 Hours) Vital Signs Temp Pulse Pulse Resp BP BP Pulse Ox 12/18/21 15:00 97.9 F 60 16 124/75 97 12/18/21 14:48 62 12/18/21 10:53 98.4 F 71 16 112/63 95 12/18/21 07:30 60 12/18/21 07:32 97.5 F L 62 18 118/53 L 95 O2 Del Method 12/18/21 15:00 Room Air 12/18/21 14:48 12/18/21 10:53 Room Air 12/18/21 07:30 12/18/21 07:32 Room Air PG Care Time/CCT Total # of Minutes Spent Total Time Spent with Patient: Total time spent is greater than 50% in coordination of care (as documented) at patient's floor/unit and/or counseling patient: Coding Level of Care Code 39588 Subseq Hosp Care Lvl 3
[2021-12-18] MEDS: clonazePAM 1 MG TAB PO SCH (20:57)
[2021-12-18] MEDS: DAPTOmycin 475 MG in SYRINGE 0 ML IV SCH (20:57)
[2021-12-18] MEDS: DICLOFENAC SOD 1% GEL 100 GM TUBE EXT SCH (20:58)
[2021-12-18] MEDS: GABAPENTIN 300 MG CAP PO SCH (21:00)
[2021-12-18] MEDS: TAMSULOSIN HCL 0.4 MG CAP PO SCH (21:03)
[2021-12-18] MEDS: FINASTERIDE 5 MG TAB PO SCH (21:04)
--- NOTE | 2021-12-18 22:53 | Ultrasound Report ---
ULTRASOUND LEFT LOWER EXTREMITY VENOUS CLINICAL HISTORY: Leg pain and swelling. COMPARISON STUDY: Left lower extremity venous ultrasound dated 12/05/2021 TECHNIQUE: Real-time, grayscale, and color Doppler sonography of the deep veins of the left lower ext remity was performed from the inguinal crease to the calf. Compression and augmentation were utilized . FINDINGS: There is no sonographic evidence of deep venous thrombosis identified in the left lower ext remity. The common femoral, superficial femoral, and popliteal veins are patent and normally compress ible. The greater saphenous vein and the profunda femoris vein at the junction with the common femora l vein are clear. The visualized calf veins are patent. IMPRESSION: There is no sonographic evidence of deep venous thrombosis identified in the left lower e xtremity. ACT 112: Negative or not required by law. Electronically signed by: Antonio Benjamin M.D. 12/18/2021 10:51 PM
[2021-12-19] MEDS ORDERED: traMADol HCL 50 MG TABLET PO STA (01:55)
[2021-12-19] MEDS: PIPERACILLIN/TAZOBACTAM 4.5 GM in DEXTROSE 5% 100 ML IV SCH ×3 (05:40→21:43)
[2021-12-19] MEDS: LEVOTHYROXINE SODIUM 88 MCG TABLET PO SCH (05:40)
[2021-12-19 08:40] LABS: Hematocrit (blood only) 33.2 % (40.1-51.0); Hemoglobin 11.4 g/dl (14.0-18.0); Mean Corpuscular Hemoglobin 30.9 pg (25.0-34.0); Mean Corpuscular Hgb Conc 34.3 g/dL (32.0-36.0); Mean Platelet Volume 9.8 fL (9.4-12.4); Platelet Count 164 K/uL (130-400); RDW Coefficient of Variation 13.3 % (11.5-14.5); RDW Standard Deviation 44.4 fL (36.4-46.3); Red Blood Count 3.69 M/uL (4.63-6.08); White Blood Count 8.02 K/ul (4.8-10.8)
[2021-12-19 09:04] LABS: BUN Creatinine Ratio 17.6 (10-20); Calcium 8.5 mg/dl (8.5-10.1); Creatinine Clr Calc Pharmacy 25.8 ml/min; Est GFR (African American) 30.1 ml/min; Potassium 3.8 mmol/L (3.5-5.1)
[2021-12-19] MEDS: HEPARIN SOD 5,000 UNIT/0.5 ML VIAL SQ SCH ×2 (09:30→21:27)
[2021-12-19] MEDS: UMECLIDINIUM BROMIDE 62.5MCG/BLISTER 7 PUFFS/INHALER INH SCH (09:30)
[2021-12-19] MEDS: FLUTICASONE/VILANTEROL 200/25MCG 14 PUFFS/INHALER INH SCH (09:30)
[2021-12-19] MEDS: DICLOFENAC SOD 1% GEL 100 GM TUBE EXT SCH ×4 (09:31→21:25)
[2021-12-19] MEDS: LANTUS PER UNIT CHARGE SQ SCH ×2 (09:31→21:27)
[2021-12-19] MEDS: INSULIN ASPART PER UNIT SC SCH ×4 (09:31→21:28)
[2021-12-19] MEDS: clonazePAM 0.5 MG TAB PO SCH (09:32)
[2021-12-19] MEDS: PANTOprazole 40 MG TAB PO SCH (09:32)
[2021-12-19] MEDS: MULTIVITAMIN TAB PO SCH (09:32)
[2021-12-19] MEDS: DOCUSATE SODIUM 100 MG CAP PO SCH ×2 (09:32→21:25)
[2021-12-19] MEDS: METOPROLOL TARTRATE 25 MG TAB PO SCH ×2 (09:32→21:29)
[2021-12-19] MEDS: POTASSIUM CHLORIDE CRTAB 20 MEQ TABCR PO SCH ×3 (09:32→21:30)
[2021-12-19] MEDS: BUMETANIDE 1 MG TAB PO SCH ×2 (09:32→18:04)
[2021-12-19] MEDS: ASPIRIN 81 MG ECTAB PO SCH (09:33)
[2021-12-19] MEDS: CLOPIDOGREL BISULFATE 75 MG TAB PO SCH (09:33)
[2021-12-19] MEDS: amLODIPine BESYLATE 5 MG TAB PO SCH (09:33)
[2021-12-19] MEDS: ACETAMINOPHEN 325 MG TAB PO SCH ×2 (09:33→18:04)
[2021-12-19] MEDS: GABAPENTIN 100 MG CAP PO SCH (09:33)
--- NOTE | 2021-12-19 09:49 | Hospitalist Progress Note ---
Date of Service December 19, 2021 Assessment & Plan (1) Diabetic infection of right foot: (2) Cellulitis: (3) Lower extremity edema: (4) CAD (coronary artery disease): (5) Diabetes: (6) Mild aortic stenosis: (7) Chronic kidney disease: (8) Benign prostatic hyperplasia with urinary obstruction: (9) COPD (chronic obstructive pulmonary disease): (10) Hypothyroidism: (11) Hypertension: (12) Dyslipidemia: (13) Paroxysmal atrial fibrillation: Plan Mr. Monroy is an 86 y/o male with a PMHx including CHF, CKD, mild aortic stenosis, peripheral vascular disease, BPH with LUTS, COPD, hypothyroidism, hypertension, dyslipidemia, paroxysmal atrial fibrillation, vitamin D deficiency , CAD, myocardial infarction, GERD and diabetes mellitus.The patient initially been seen in the emergency department for bilateral lower extremity cellulitis on 12/05/2021, where he received ceftriaxone 2 g IV, and then was discharged on Keflex and doxycycline orally. Patient did take his antibiotics as directed, had persistent worsening, and was referred to the ED for further treatment with IV antibiotics by his PCP, now clinically improving and awaiting angio. #Cellulitis#Diabetic infection#Osteo Diabetic infection/cellulitis of right foot/bilateral lower extremity - failure of outpatient treatment with Keflex and doxycycline. Since patient is diabetic, and has CKD, will place on daptomycin 4 mg kilogram IV every 24 hours and Zosyn 4.5 g IV every 8 hours. Lower extremity arterial Dopplers to compare to that done on 12/16 - showed worsening of atherosclerotic disease. MRI of the right foot showed signs of osteomyelitis in the 4th digit. Pediatry recommended a vascular eval as they were not convinced that it needed surgical intervention. bioinformatics technician, Dr. Rodriguez, recommended angio Monday. Patient will stay in the hospital for IV abx until the procedure. [] continue daptomycin 4 mg/kg IV Q24 and Zosyn 4.5 g IV Q8 - day 6 of abx, f/u cultures NGTD 48 hr #Osteoarthritis of left ankle Patient was walking around a significant amount over the past few days, lead to decreased ROM and intense pain in the ankle. Was given toradol overnight. Less likely to be related to gout, but started colchicine as a possible solution. LE doppler on 12/19 was negative for DVT. Voltaren gel every 4 hours ordered. #LE Edema Bumex 2 mg IV BID - transition to Bumex 2 mg po BID. Ejection fraction was 50.1% on resting aspect of dobutamine stress echo from 03/06/2019 - repeat ECHO shows worsened , EF 55-60% #CAD/hypertension/atrial fibrillation/mild aortic stenosis/CP Patient has a history of CAD and [place] with stenting. Patient on tele. Repeat ECHO showed worsened , EF 55-60%. Grade I diastolic dysfunction. Moderate LVH. hsTrop 8.1. [] Continue amlodipine, aspirin, clopidogrel and metoprolol tartrate #T2DM Change insulin glargine from 54 to 40 units subcu every morning and 40 to 30 units subcu every evening. Hold glipizide 10 mg p.o. twice daily. Placed on Accu-Cheks before meals and at bedtime with NovoLog coverage per scale. HbA1c - 9.7. Patient hypoglycemic to 48 - decrease glargine to 10 units BID with SSI. Patient still hyperglycemic - change carb ratio to 6, conversion factor 20, increase lantus to 20 BID. [] monitor #CKD Creatinine 2.25 on admission, with range 1.58-2.07 Follow renal function panel and magnesium labs serially [] Cr - 2.02 today [] Hold losartan #BPH with urinary obstruction Continue tamsulosin 0.4 mg at bedtime and finasteride 5 mg at bedtime #COPD Continue routine inhalers #Hypothyroidism Continue levothyroxine #HTN Continue amlodipine, aspirin #Dyslipidemia Verify patient's outpatient medication, and begin when clarified #Paroxysmal a fib. See above Patient is not on anticoagulation diet: heart healthy code status: full DVT ppx: heparin dispo: Med/Tele Admission and Anticipated Discharge Date Admission Date: December 13, 2021 Supervising Physician Co-Signing Physician Notes I personally examined the patient and verified all aguayo points of history and exam, discussed case, and agree with decision making with Dr Gibbs Left ankle hurts even more. Could not really walk today. Was throbbing in the middle of the night. vitals noted nad heent nc at mmm breathing unlabored R foot 4th toe less red and swollen similar to yesterday. Left ankle swollen, some surrounding edema, not erythematous, joint line is quite tender to palpation. Very similar exam to yesterday except that now Voltaren gel is on. diabetic foot infection - from poor blood flow - dapto and zosyn, fortunately appears to be acutely improving, podiatry eval reassuring. For attempt at revascularization on Monday. Given that he failed outpatient treatmentand the most likely reason for failing outpatient treatment was poor accumulation of antibiotics at the site of infectionpatient and I discussed, and both feel it best to continue IV antibiotics until revascularizationthen if there is better blood flow to the foot, he will likely respond to p.o. antibiotics better. Therefore continue in the hospital for now. For vascular procedure tomorrow. Depending on results of procedureplan could be anywhere from home on p.o. antibiotics at the end of the day tomorrow to ongoing IV antibiotics for another day or 2 with transition to p.o., to potential need for a vascular surgery intervention which may complicate the plan in regards to home with expedited outpatient versus more acute. Left ankle pain and edemaDoppler negative, no DVT. Strongly suspect DJD/OA flare from walkinghe had actually been complaining of some restricted range of motion a day or 2 prior (noting it was chronic) to the current painand on exam then his ankle mortise examined fairly arthritic at the bedside. I suspect that he was doing a good job walking to try to prevent deconditioning, and by bad luck had a flareup of OA. Continue Voltaren gel and Tylenol. At the same time, given how exquisitely tender it is, while the joint does not seem quite as inflamed as usually seen in gout, he certainly carries gout risksafter discussion of risk/benefit we will give trial of colchicine. Either way, after his vascular procedure, could consider a short course of corticosteroids if he still not able to walk. Discussed holding off on that for now, so as to not create glycemic or fluid shifting issues that might interfere with the vascular procedure. otherwise as above Subjective Today Mr. Monroy is resting in his bed. He states that he was in a great deal of pain with his left ankle last night. Today he denies any CP, SOB, abdominal pain, fever, or chills. He states that they started the Voltaren gel last night and he is hopeful that it will help over time. Review of Systems Review of Systems: All systems reviewed & are unremarkable except as noted in Subjective Physical Exam Constitutional: WD/WN, vitals as above ENMT: external ear and nose normal, oropharynx normal Respiratory: normal respiratory effort, lungs clear to auscultation Cardiovascular: Rate/Rhythm: regular rate and regular rhythm Extremities: + pedal edema (L>R +1 pedal edema) and + edema (Left lower extremity +1 pretibial edema) Gastrointestinal (Abdomen): normal bowel sounds, soft, nontender, no hepatosplenomegaly Results & Data Results & Data ([facility]) Vital Signs (Past 12 Hours) Vital Signs Temp Pulse Pulse Resp BP Pulse Ox O2 Del Method 12/19/21 07:42 36.4 C L 63 16 169/76 H 96 Room Air 12/18/21 22:56 75 12/19/21 04:00 36.5 C 69 18 106/58 L 93 Room Air 12/18/21 23:45 36.8 C 76 18 153/72 H 94 Room Air Laboratory Results 12/19/21 12/19/21 12/19/21 Range/Units 16:19 11:46 08:06 WBC 8.02 (4.8-10.8) K/ul RBC 3.69 L (4.63-6.08) M/uL Hgb 11.4 L (14.0-18.0) g/dl Hct 33.2 L (40.1-51.0) % MCV 90.0 (80.0-100.0) fL MCH 30.9 (25.0-34.0) pg MCHC 34.3 (32.0-36.0) g/dL RDW Std Deviation 44.4 (36.4-46.3) fL RDW Coeff of Adrian 13.3 (11.5-14.5) % Plt Count 164 (130-400) K/uL MPV 9.8 (9.4-12.4) fL Sodium (136-145) mmol/L Potassium (3.5-5.1) mmol/L Chloride (98-107) mmol/L Carbon Dioxide (21-32) mmol/L Anion Gap (3-11) BUN (6-23) mg/dl Creatinine (0.6-1.4) mg/dl Est Cr Clr Drug Dosing ml/min Est GFR ( Amer) ml/min Est GFR (Non-Af Amer) ml/min BUN/Creatinine Ratio (10-20) Glucose (70-99(Fasting)) mg/dl POC Glucose 99 147 H (70-99) mg/dl Calcium (8.5-10.1) mg/dl Total Creatine Kinase (30-223) U/L 12/19/21 12/19/21 12/18/21 Range/Units 08:06 07:52 20:52 WBC (4.8-10.8) K/ul RBC (4.63-6.08) M/uL Hgb (14.0-18.0) g/dl Hct (40.1-51.0) % MCV (80.0-100.0) fL MCH (25.0-34.0) pg MCHC (32.0-36.0) g/dL RDW Std Deviation (36.4-46.3) fL RDW Coeff of Adrian (11.5-14.5) % Plt Count (130-400) K/uL MPV (9.4-12.4) fL Sodium 139 (136-145) mmol/L Potassium 3.8 (3.5-5.1) mmol/L Chloride 105 (98-107) mmol/L Carbon Dioxide 26 (21-32) mmol/L Anion Gap 8 (3-11) BUN 39 H (6-23) mg/dl Creatinine 2.21 H (0.6-1.4) mg/dl Est Cr Clr Drug Dosing 25.8 ml/min Est GFR ( Amer) 30.1 ml/min Est GFR (Non-Af Amer) 26.0 ml/min BUN/Creatinine Ratio 17.6 (10-20) Glucose 118 H (70-99(Fasting)) mg/dl POC Glucose 120 H 171 H (70-99) mg/dl Calcium 8.5 (8.5-10.1) mg/dl Total Creatine Kinase 63 (30-223) U/L Diagnostic Findings Venous Doppler Study 12/18/21 16:31 ULTRASOUND LEFT LOWER EXTREMITY VENOUS CLINICAL HISTORY: Leg pain and swelling. COMPARISON STUDY: Left lower extremity venous ultrasound dated 12/05/2021 TECHNIQUE: Real-time, grayscale, and color Doppler sonography of the deep veins of the left lower extremity was performed from the inguinal crease to the calf. Compression and augmentation were utilized. FINDINGS: There is no sonographic evidence of deep venous thrombosis identified in the left lower extremity. The common femoral, superficial femoral, and popliteal veins are patent and normally compressible. The greater saphenous vein and the profunda femoris vein at the junction with the common femoral vein are clear. The visualized calf veins are patent. IMPRESSION: There is no sonographic evidence of deep venous thrombosis identified in the left lower extremity. ACT 112: Negative or not required by law. Electronically signed by: Antonio Benjamin M.D. 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 transplanted heart: [place] heart Qualified Code(s): I25.10 - Atherosclerotic heart disease of [place] coronary artery without angina pectoris (3) Cellulitis Laterality: unspecified laterality Site of cellulitis: extremity Site of cellulitis of extremity: lower extremity Qualified Code(s): L03.119 - Cellulitis of unspecified part of limb (4) Hypothyroidism Hypothyroidism type: unspecified Qualified Code(s): E03.9 - Hypothyroidism, unspecified (5) COPD (chronic obstructive pulmonary disease) COPD type: unspecified COPD Qualified Code(s): J44.9 - Chronic obstructive pulmonary disease, unspecified (6) Hypertension Hypertension type: essential hypertension Qualified Code(s): I10 - Essential (primary) hypertension
[2021-12-19] MEDS ORDERED: COLCHICINE 0.6 MG TAB PO ONE (10:05)
--- NOTE | 2021-12-19 13:23 | Billing Data ---
Date of Service December 19, 2021 Coding Level of Care Code 70009 Subseq Hosp Care Lvl 3
[2021-12-19] MEDS: clonazePAM 1 MG TAB PO SCH (21:25)
[2021-12-19] MEDS: GABAPENTIN 300 MG CAP PO SCH (21:26)
[2021-12-19] MEDS: FINASTERIDE 5 MG TAB PO SCH (21:26)
[2021-12-19] MEDS: TAMSULOSIN HCL 0.4 MG CAP PO SCH (21:30)
[2021-12-20] MEDS: ACETAMINOPHEN 325 MG TAB PO SCH ×3 (01:19→17:30)
[2021-12-20] MEDS: PIPERACILLIN/TAZOBACTAM 4.5 GM in DEXTROSE 5% 100 ML IV SCH ×3 (05:21→21:46)
[2021-12-20] MEDS: LEVOTHYROXINE SODIUM 88 MCG TABLET PO SCH (05:22)
[2021-12-20] MEDS ORDERED: LIDOCAINE 1% LOCAL 20 ML VIAL ONE (07:39)
[2021-12-20] MEDS ORDERED: niCARdipine HCL INJ 2.5 MG/ML 10 ML AMP ONE (07:57)
[2021-12-20] MEDS ORDERED: HEPARIN (PORCINE) 1000 UNIT/ML 10 ML (CATH LAB USE ONLY) ONE (07:57)
[2021-12-20] MEDS ORDERED: fentaNYL citrate 100 MCG/2 ML VIAL ONE (07:58)
[2021-12-20] MEDS ORDERED: NITROGLYCERIN/D5W 100MCG/ML 20ML SYR ONE (07:58)
[2021-12-20] MEDS ORDERED: MIDAZOLAM HCL 5 MG/ML 1 ML VIAL ONE (07:59)
--- NOTE | 2021-12-20 08:00 | Pre Anesthesia Assessment ---
Date of Service December 20, 2021 Pre Sedation Assessment Vital Signs Temp Pulse Pulse Resp BP Pulse Ox O2 Del Method 12/20/21 07:46 61 12/20/21 04:00 97.7 F 63 18 146/68 H 95 Room Air 12/19/21 22:18 61 12/19/21 23:26 97.9 F 64 18 107/63 92 Room Air 12/19/21 19:58 98.2 F 66 18 105/64 92 Room Air 12/19/21 15:54 63 12/19/21 15:41 98.1 F 68 16 102/56 L 96 Room Air 12/19/21 11:14 97.7 F 60 16 117/66 96 Room Air Cardiovascular RRR, no murmur, no edema Respiratory normal respiratory effort, lungs clear to auscultation Pre-Sedation Airway Assessment Smoking Status: Never smoker Hx Sleep Apnea: No Hx Difficult Intubation: No Short, Thick Neck: No Thyromental Distance: > or= 3.5 Finger Breadths Oral Cavity: + WNL Mallampati Class: III ASA: ASA3 Procedure Planning Contraindications for Sedation: none Current Medications Reviewed: Yes Notes The planned sedation has been discussed with the patient. Informed Consent was obtained. I have identified the patient, determined the appropriateness of sedation and have assessed the patient immediately prior to the procedure. All medicine(s) and interventions are by my order.
[2021-12-20] MEDS ORDERED: CLOPIDOGREL BISULFATE 300 MG TAB ONE (09:47)
[2021-12-20] MEDS: CLOPIDOGREL BISULFATE 75 MG TAB PO SCH (09:58)
--- NOTE | 2021-12-20 10:12 | Post Anesthesia Assessment ---
Date of Service December 20, 2021 Post Sedation Assessment Vital Signs Temp Pulse Pulse Pulse Resp BP Pulse Ox 12/20/21 10:00 73 16 137/63 94 12/20/21 07:46 61 12/20/21 04:00 97.7 F 63 18 146/68 H 95 12/19/21 22:18 61 12/19/21 23:26 97.9 F 64 18 107/63 92 12/19/21 19:58 98.2 F 66 18 105/64 92 12/19/21 15:54 63 12/19/21 15:41 98.1 F 68 16 102/56 L 96 12/19/21 11:14 97.7 F 60 16 117/66 96 O2 Del Method 12/20/21 10:00 Room Air 12/20/21 07:46 12/20/21 04:00 Room Air 12/19/21 22:18 12/19/21 23:26 Room Air 12/19/21 19:58 Room Air 12/19/21 15:54 12/19/21 15:41 Room Air 12/19/21 11:14 Room Air Recovery Score Activity: Moves 4 extremities Respiration: Deep Breath/Cough Circulation: +/-20% PreAnes Value Consciousness: Fully Awake Oxygen Saturation: > 92% On Room Air Post Anesthesia Score: 10 Discharge Sedation Level of Care: Fast Track Phase II Post Sedation Plan On clinical assessment, the patient appears to have tolerated the sedation without complications. Patient is recovering as anticipated. Patient will continue to be monitored by nursing and may be discharged when sedation discharge criteria are met per below protocol. Upon Completions of procedure up to 15 minutes continue every 5 minute vital signs and the P.A.R. score; then discharge to a Phase I or Fast Track to Phase II per the following guidelines: * Discharge Patient to appropriate Phase II area if PAR is 8 or greater or return to pre- procedure baseline. The post - procedure orders will be as directed. * If PAR score is less than 8 or not return to pre-procedure baseline then patient will follow Phase I monitoring till PAR is reached for Phase II. The Phase I may be done in procedure room or may call to secure a Phase I area. * If naloxone or flumazenil are used for reversal, hold in Phase I for continued monitoring from when last reversal dose was given for a minimum of 60 minutes or longer pending the nurse and/or physician discretion of patient condition before discharge to Phase II. Please call the Sedation Physician to re-evaluate and complete post-note for discharge to Phase II area. Do NOT discharge from procedure sedation or Phase 1 until post- sedation evaluation note is complete by procedure /sedation MD Sedation Discharge Instructions to be given to the patient at discharge to home.
--- NOTE | 2021-12-20 10:16 | Post Operative Brief Note ---
PG Immediate Post Op with CF Date of Surgery December 20, 2021 Pre & Post Diagnosis PAD I identified the patient and participated in the time-out.: Yes Procedure Operation Date: 12/20/21 08:00 Actual Procedures s Tibial Peroneal Balloon - Gary Rodriguez MD s Placement Art Occlusive Device - Gary Rodriguez MD s Ultrasound Vascular Access - Gary Rodriguez MD p Angio Extremity Unilateral - Gary Rodriguez MD Surgeon Travis Rodriguez MD Health Promotion Coordinator Gas Welder Estimated Blood Loss 10 Findings See Below RT iliacs/femoral arteries widely patent. Severe, 90+ diffuse disease in JUMA Subtotal ETHYL BLENDER disease Successful angioplasty of JUMA with 2.5 balloon with resulting direct in-line flow to forefoot. Drains Other Anesthesia Type RN Sedation Complications none Disposition Accompanied Patient To Recovery: Yes Disposition: Recovery Room Overlapping Procedure I was present for: the critical portions of procedure. I was immediately available: during the entire case. Back up surgeon: was not required during procedure.
[2021-12-20] MEDS ORDERED: SODIUM CHLORIDE 0.9% 1000ML 1,000 ML IV SCH (10:30)
[2021-12-20] MEDS: amLODIPine BESYLATE 5 MG TAB PO SCH (11:26)
[2021-12-20] MEDS: ASPIRIN 81 MG ECTAB PO SCH (11:27)
[2021-12-20] MEDS: clonazePAM 0.5 MG TAB PO SCH ×2 (11:27→21:18)
[2021-12-20] MEDS: DOCUSATE SODIUM 100 MG CAP PO SCH ×2 (11:27→21:24)
[2021-12-20] MEDS: DICLOFENAC SOD 1% GEL 100 GM TUBE EXT SCH ×4 (11:27→21:19)
[2021-12-20] MEDS: BUMETANIDE 1 MG TAB PO SCH ×2 (11:27→17:30)
[2021-12-20] MEDS: MULTIVITAMIN TAB PO SCH (11:28)
[2021-12-20] MEDS: METOPROLOL TARTRATE 25 MG TAB PO SCH ×2 (11:28→21:24)
[2021-12-20] MEDS: UMECLIDINIUM BROMIDE 62.5MCG/BLISTER 7 PUFFS/INHALER INH SCH (11:28)
[2021-12-20] MEDS: PANTOprazole 40 MG TAB PO SCH (11:28)
[2021-12-20] MEDS: GABAPENTIN 100 MG CAP PO SCH (11:28)
[2021-12-20] MEDS: FLUTICASONE/VILANTEROL 200/25MCG 14 PUFFS/INHALER INH SCH (11:28)
[2021-12-20 13:15] LABS: Basophils # (auto) 0.03 K/uL (0-0.2); Basophils % (auto) 0.3 %; Eosinophils # (auto) 0.04 K/uL (0-0.50); Eosinophils % (auto) 0.4 %; Hemoglobin 10.9 g/dl (14.0-18.0); Immature Granulocytes # (auto) 0.05 K/uL (0.00-0.02); Immature Granulocytes % (auto) 0.5 %; Lymphocytes # (auto) 1.37 K/uL (1.2-3.4); Lymphocytes % (auto) 12.8 %; Mean Corpuscular Hgb Conc 34.1 g/dL (32.0-36.0); Mean Corpuscular Volume 90.9 fL (80.0-100.0); Mean Platelet Volume 9.7 fL (9.4-12.4); Monocytes % (auto) 5.6 %; Neutrophils # (auto) 8.63 K/uL (1.4-6.5); Neutrophils % (auto) 80.4 %; Platelet Count 169 K/uL (130-400); RDW Coefficient of Variation 13.6 % (11.5-14.5); RDW Standard Deviation 45.6 fL (36.4-46.3); Red Blood Count 3.52 M/uL (4.63-6.08); White Blood Count 10.72 K/ul (4.8-10.8)
[2021-12-20 13:33] LABS: BUN Creatinine Ratio 17.8 (10-20); Calcium 8.2 mg/dl (8.5-10.1); Creatinine Clr Calc Pharmacy 26.1 ml/min; Est GFR (African American) 30.5 ml/min; Est GFR (Non-African American) 26.3 ml/min; Potassium 4.4 mmol/L (3.5-5.1)
[2021-12-20] MEDS: INSULIN ASPART PER UNIT SC SCH ×4 (15:20→21:19)
[2021-12-20] MEDS: LANTUS PER UNIT CHARGE SQ SCH ×2 (15:21→21:19)
[2021-12-20] MEDS: POTASSIUM CHLORIDE CRTAB 20 MEQ TABCR PO SCH ×3 (15:21→21:24)
[2021-12-20] MEDS: HEPARIN SOD 5,000 UNIT/0.5 ML VIAL SQ SCH ×2 (15:21→21:28)
--- NOTE | 2021-12-20 15:50 | Hospitalist Progress Note ---
Date of Service December 20, 2021 Assessment & Plan (1) Diabetic infection of right foot: (2) Cellulitis: (3) Lower extremity edema: (4) CAD (coronary artery disease): (5) Diabetes: (6) Mild aortic stenosis: (7) Chronic kidney disease: (8) Benign prostatic hyperplasia with urinary obstruction: (9) COPD (chronic obstructive pulmonary disease): (10) Hypothyroidism: (11) Hypertension: (12) Dyslipidemia: (13) Paroxysmal atrial fibrillation: Plan Patient is doing clinically a lot better since angio. Plan to possible D/C tomorrow on oral antibiotics. #Cellulitis#Diabetic infection#Osteo -Angio done today and patient already doing better -Will continue abs IV for now and consider switching to PO tomorrow. -Plan to D/C on doxycycline and Augmentin but will discuss tomorrow for need of pseudomonas coverage #Osteoarthritis of left ankle -Got better with colchicine -LE doppler on 12/19 was negative for DVT. -Voltaren gel every 4 hours ordered. #LE Edema Bumex 2 mg IV BID - transition to Bumex 2 mg po BID. Ejection fraction was 50.1% on resting aspect of dobutamine stress echo from 03/06/2019 - repeat ECHO shows worsened , EF 55-60% #CAD/hypertension/atrial fibrillation/mild aortic stenosis/CP -Continue amlodipine, aspirin, clopidogrel and metoprolol tartrate #T2DM Change insulin glargine from 54 to 40 units subcu every morning and 40 to 30 units subcu every evening. Hold glipizide 10 mg p.o. twice daily. Placed on Accu-Cheks before meals and at bedtime with NovoLog coverage per scale. HbA1c - 9.7. Patient hypoglycemic to 48 - decrease glargine to 10 units BID with SSI. Patient still hyperglycemic - change carb ratio to 6, conversion factor 20, incr ease lantus to 20 BID. #CKD Creatinine 2.25 on admission, with range 1.58-2.07 Follow renal function panel and magnesium labs serially #BPH with urinary obstruction Continue tamsulosin 0.4 mg at bedtime and finasteride 5 mg at bedtime #COPD Continue routine inhalers #Hypothyroidism Continue levothyroxine #HTN Continue amlodipine, aspirin #Dyslipidemia Verify patient's outpatient medication, and begin when clarified #Paroxysmal a fib. See above Patient is not on anticoagulation diet: heart healthy code status: full DVT ppx: heparin dispo: Med/Tele Admission and Anticipated Discharge Date Admission Date: December 13, 2021 Supervising Physician Co-Signing Physician Notes I personally examined the patient and verified all aguayo points of history and exam, discussed case, and agree with decision making with Dr Chan Left ankle pain felt better almost immediately after getting colchicine. Right foot feels fine. Vascular input from Dr. Rodriguez greatly appreciated. vitals noted nad heent nc at mmm breathing unlabored right foot fourth toe very minimally swollensignificantly improvednotably even improved from yesterday and considerably more from previous days. Left ankle very mildly swollen very mildly tender. diabetic foot infection - from poor blood flow -now with improved blood flow looks significantly improved. Follow into tomorrow postop, follow-up kidney function in the morning. As long as situation looks good from a renal function standpoint, infectious standpoint, and from vascularanticipate home tomorrow on p.o. antibiotics. Left ankle pain and edemaexamined most consistent as OA flare, but given severity of pain, was treated empirically for possible gout with colchicineimproved quite nicely. otherwise as above Subjective Patient was seen bedside this afternoon after angioplasty of JUMA. He reports no issues or complaints at this time. He states that the pain in his foot is a lot better since the surgery. Review of Systems Review of Systems: All systems reviewed & are unremarkable except as noted in HPI & below Physical Exam Constitutional: WD/WN, vitals as above Respiratory: normal respiratory effort, lungs clear to auscultation Cardiovascular: RRR, no murmur, no edema Musculoskeletal: no cyanosis or clubbing, extremities motor strength 5/5 Skin: no rashes, warm and dry Results & Data Results & Data ([facility]) Vital Signs (Past 12 Hours) Vital Signs Temp Pulse Pulse Pulse Resp BP Pulse Ox 12/20/21 15:09 37.5 C 68 18 114/48 L 97 12/20/21 14:30 59 L 16 98/48 L 95 12/20/21 14:15 59 L 16 110/59 L 95 12/20/21 14:00 60 16 98/48 L 95 12/20/21 13:45 59 L 16 91/50 L 95 12/20/21 13:30 67 16 128/73 95 12/20/21 13:15 63 16 111/66 95 12/20/21 13:00 63 16 102/59 L 95 12/20/21 12:45 67 16 101/76 95 12/20/21 12:30 62 16 95/56 L 95 12/20/21 12:15 66 16 94/57 L 95 12/20/21 12:00 64 16 99/53 L 95 12/20/21 11:45 64 16 97/50 L 95 12/20/21 11:15 71 16 125/73 94 12/20/21 11:30 71 16 110/68 95 12/20/21 11:00 71 16 110/58 L 94 12/20/21 10:45 68 16 117/60 94 12/20/21 10:30 69 16 138/59 L 94 12/20/21 10:15 68 16 127/63 94 12/20/21 10:00 73 16 137/63 94 12/20/21 07:46 61 12/20/21 04:00 36.5 C 63 18 146/68 H 95 O2 Del Method 12/20/21 15:09 Room Air 12/20/21 14:30 Room Air 12/20/21 14:15 Room Air 12/20/21 14:00 Room Air 12/20/21 13:45 Room Air 12/20/21 13:30 Room Air 12/20/21 13:15 Room Air 12/20/21 13:00 Room Air 12/20/21 12:45 Room Air 12/20/21 12:30 Room Air 12/20/21 12:15 Room Air 12/20/21 12:00 Room Air 12/20/21 11:45 Room Air 12/20/21 11:15 Room Air 12/20/21 11:30 Room Air 12/20/21 11:00 Room Air 12/20/21 10:45 Room Air 12/20/21 10:30 Room Air 12/20/21 10:15 Room Air 12/20/21 10:00 Room Air 12/20/21 07:46 12/20/21 04:00 Room Air (1) Diabetes Diabetes mellitus complication status: with hyperglycemia Diabetes mellitus watermaster insulin use: with watermaster use Diabetes mellitus type: type 2 Qualified Code(s): E11.65 - Type 2 diabetes mellitus with hyperglycemia; 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 transplanted heart: deering heart Qualified Code(s): I25.10 - Atherosclerotic heart disease of deering coronary artery without angina pectoris (3) Cellulitis Laterality: unspecified laterality Site of cellulitis: extremity Site of cellulitis of extremity: lower extremity Qualified Code(s): L03.119 - Cellulitis of unspecified part of limb (4) Hypothyroidism Hypothyroidism type: unspecified Qualified Code(s): E03.9 - Hypothyroidism, unspecified (5) COPD (chronic obstructive pulmonary disease) COPD type: unspecified COPD Qualified Code(s): J44.9 - Chronic obstructive pulmonary disease, unspecified (6) Hypertension Hypertension type: essential hypertension Qualified Code(s): I10 - Essential (primary) hypertension
--- NOTE | 2021-12-20 15:59 | Billing Data ---
Date of Service December 20, 2021 Coding Level of Care Code 47917 Subseq Hosp Care Lvl 3
--- NOTE | 2021-12-20 16:00 | Billing Data ---
Date of Service December 20, 2021 Coding Level of Care Code 50438 Subseq Hosp Care Lvl 3
[2021-12-20] MEDS: GABAPENTIN 300 MG CAP PO SCH (21:24)
[2021-12-20] MEDS: TAMSULOSIN HCL 0.4 MG CAP PO SCH (21:24)
[2021-12-20] MEDS: FINASTERIDE 5 MG TAB PO SCH (21:24)
[2021-12-20] MEDS: clonazePAM 1 MG TAB PO SCH (21:28)
[2021-12-20] MEDS: DAPTOmycin 475 MG in SYRINGE 0 ML IV SCH (21:46)
--- NOTE | 2021-12-21 00:07 | Endovascular Procedure Note ---
PG Endovascular Procedure Rpt Pre & Post Diagnosis Peripheral arterial disease I identified the patient and participated in the time-out.: Yes Procedure Operation Date: 12/20/21 08:00 Actual Procedures s Tibial Peroneal Balloon - Gary Rodriguez MD s Placement Art Occlusive Device - Gary Rodriguez MD s Ultrasound Vascular Access - Gary Rodriguez MD p Angio Extremity Unilateral - Gary Rodriguez MD Surgeon Travis Rodriguez MD Geothermal Electrical Engineer Light Industrial Supervisor Estimated Blood Loss 10 Findings See Below Abdominal aorta--no significant aneurysmal or stenotic disease Right lower extremity-- -Common iliac, external iliac, internal iliac widely patent -WEB ADMINISTRATOR, profunda widely patent -SFA - 20-30% mid, distal disease -Popliteal 40% proximal stenosis -JUMA - diffuse disease, 80% mid segment stenosis, multiple 95+% lesions in distal vessel as extends across ankle -BIOMECHANICAL ENGINEER - severe diffuse disease mid segment subtotal occlusion. Distal vessel tapers at ankle. -Peroneal - small, widely patent to the ankle. -DPA - widely patent, gives off deep plantar artery. Pedal arch incomplete -Medial/lateral plantar arteries occluded Left lower extremity-- -Common iliac, external iliac, internal iliac widely patent -WEB ADMINISTRATOR, profunda widely patent Anesthesia Type RN Sedation Radiation Exposure (mGv) Radiation (mGy): 432 Contrast Contrast: 43 Complications none Disposition Accompanied Patient To Recovery: Yes Disposition: PCU Description of Procedure Left WEB ADMINISTRATOR obtained under ultrasound guidance, short 5Fr sheath placed Abdominal aortogram and proximal RLE angiogram performed with RIM catheter. Selective angiography with quick cross catheter placed in RT SFA 6 Fr 65 cm destination sheath placed from LT WEB ADMINISTRATOR to distal RT SFA. JUMA disease crossed with command 0.14 wire and Seeker support catheter. Angioplasty of proximal to distal JUMA with 2.5 balloon Post procedure good angiographic result, no evidence of dissection and brisk 2 vessel run-off. Contrast used: 43 Moderate sedation: 0830-947 Access closure: AngioSeal Summary: 1. Right lower extremity -- widely patent iliac/femoral arteries. JUMA 80% mid, diffuse distal disease up to 95%+. BIOMECHANICAL ENGINEER mid subtotal occlusion and tapers at ankle. Peroneal patent. DPA patent to forefoot. 2. Left lower extremity -- widely patent iliacs, WEB ADMINISTRATOR. 3. Successful angioplasty of RT JUMA with 2.5 balloon Final result: RT 2 vessel distal runoff and direct in-line flow to forefoot via JUMA/DPA. Recommendations: Continue DAPT with ASA/Clopidogrel IV hydration for risk of contrast nephropathy Follow-up non-invasive vascular testing in 2 weeks. BIOMECHANICAL ENGINEER intervention could be considered in future if new non-healing ulcer or refractory rest pain. I attest to the content of the Intraoperative Record and any orders documented therein. Any exceptions are noted below. Vascular Charges Angiography/Venography Procedure 1: Angiography/Venography charges: [id number] Initial 3rd order or selective abd, pelvic, or LE branch Procedure 2: Angiography/Venography charges: [id number] Aortography, abd + b/l iliofem LE, catheter, radiological S&I Lower Extremity Interventions Procedure 1: Lower Extremity Intervention charges: [id number] Angioplasty, tibial, peroneal artery, unilateral, initial vessel Additional Services Procedure 1: Additional Services Charges: 68687 Ultrasound guidance - vascular access Procedure 2: Additional Services Charges: 97955 Moderate sedation initial 15 min Procedure 3: Additional Services Charges: 79116 Moderate sedation, each additional 15 min
[2021-12-21] MEDS ORDERED: PHARMACY GLYCEMIC MGMT CONSULT PRN (01:12)
[2021-12-21] MEDS ORDERED: INSULIN ASPART PER UNIT SC ONE (02:15)
[2021-12-21] MEDS: ACETAMINOPHEN 325 MG TAB PO SCH ×2 (02:17→08:53)
[2021-12-21] MEDS: LEVOTHYROXINE SODIUM 88 MCG TABLET PO SCH (05:19)
[2021-12-21] MEDS: PIPERACILLIN/TAZOBACTAM 4.5 GM in DEXTROSE 5% 100 ML IV SCH ×2 (05:20→14:08)
[2021-12-21] MEDS: INSULIN ASPART PER UNIT SC SCH ×2 (08:33→12:36)
[2021-12-21] MEDS: LANTUS PER UNIT CHARGE SQ SCH (08:34)
[2021-12-21] MEDS: POTASSIUM CHLORIDE CRTAB 20 MEQ TABCR PO SCH ×2 (08:53→14:04)
[2021-12-21] MEDS: METOPROLOL TARTRATE 25 MG TAB PO SCH (08:53)
[2021-12-21] MEDS: MULTIVITAMIN TAB PO SCH (08:53)
[2021-12-21] MEDS: GABAPENTIN 100 MG CAP PO SCH (08:53)
[2021-12-21] MEDS: HEPARIN SOD 5,000 UNIT/0.5 ML VIAL SQ SCH (08:53)
[2021-12-21] MEDS: CLOPIDOGREL BISULFATE 75 MG TAB PO SCH (08:54)
[2021-12-21] MEDS: FLUTICASONE/VILANTEROL 200/25MCG 14 PUFFS/INHALER INH SCH (08:54)
[2021-12-21] MEDS: ASPIRIN 81 MG ECTAB PO SCH (08:54)
[2021-12-21] MEDS: BUMETANIDE 1 MG TAB PO SCH (08:54)
[2021-12-21] MEDS: PANTOprazole 40 MG TAB PO SCH (08:54)
[2021-12-21] MEDS: UMECLIDINIUM BROMIDE 62.5MCG/BLISTER 7 PUFFS/INHALER INH SCH (08:54)
[2021-12-21] MEDS: amLODIPine BESYLATE 5 MG TAB PO SCH (08:54)
[2021-12-21] MEDS: DOCUSATE SODIUM 100 MG CAP PO SCH (08:57)
[2021-12-21] MEDS: clonazePAM 0.5 MG TAB PO SCH (08:59)
[2021-12-21 09:15] LABS: Basophils # (auto) 0.05 K/uL (0-0.2); Basophils % (auto) 0.6 %; Eosinophils # (auto) 0.15 K/uL (0-0.50); Eosinophils % (auto) 1.7 %; Hematocrit (blood only) 30.1 % (40.1-51.0); Hemoglobin 10.1 g/dl (14.0-18.0); Immature Granulocytes # (auto) 0.04 K/uL (0.00-0.02); Immature Granulocytes % (auto) 0.5 %; Lymphocytes # (auto) 1.92 K/uL (1.2-3.4); Mean Corpuscular Hemoglobin 30.6 pg (25.0-34.0); Mean Corpuscular Hgb Conc 33.6 g/dL (32.0-36.0); Mean Corpuscular Volume 91.2 fL (80.0-100.0); Mean Platelet Volume 9.9 fL (9.4-12.4); Monocytes # (auto) 0.65 K/uL (0.24-0.82); Monocytes % (auto) 7.4 %; Neutrophils # (auto) 5.93 K/uL (1.4-6.5); Neutrophils % (auto) 67.8 %; Platelet Count 177 K/uL (130-400); RDW Coefficient of Variation 13.9 % (11.5-14.5); RDW Standard Deviation 46.2 fL (36.4-46.3); White Blood Count 8.74 K/ul (4.8-10.8)
[2021-12-21 09:37] LABS: BUN Creatinine Ratio 18.2 (10-20); Calcium 8.5 mg/dl (8.5-10.1); Creatinine Clr Calc Pharmacy 22.2 ml/min; Est GFR (Non-African American) 21.6 ml/min; Potassium 3.9 mmol/L (3.5-5.1)
[2021-12-21] MEDS: DICLOFENAC SOD 1% GEL 100 GM TUBE EXT SCH ×2 (09:52→14:07)
--- NOTE | 2021-12-21 12:21 | Pharmacy Report ---
Pharmacy Glycemic Short Note 2 - Date of Service December 21, 2021 - Glycemic Short BSG Results (Last 24 hours): 12/20/21 12/20/21 12/20/21 12:43 17:18 20:23 Glucose 234 H POC Glucose 359 H* 336 H* 12/20/21 12/21/21 12/21/21 20:28 00:35 02:22 Glucose POC Glucose 362 H* 236 H 183 H 12/21/21 12/21/21 12/21/21 07:23 07:37 11:16 Glucose 121 H POC Glucose 135 H 230 H OUTPATIENT ANTIDIABETIC REGIMEN: * Lantus 54 units Q AM + 40 units Q PM * Glipizide 10mg BID * A1c = 9.7% 12/14/21 ASSESSMENT: * Type 2 diabetic admitted for cellulitis / diabetic foot infection * Reports of fasting hypoglycemia with out-pt regimen. Current inpatient Lantus dose of 22 units BID is actually producing acceptable fasting results. Will continue for the time being. * Yesterdays post-prandial hyperglycemia was likely due to omission of Novolog with breakfast and lunch Accucheks. * Will continue basal bolus regimen based upon an anticipated total daily insulin requirement of ~90-100 units per day (which is in line with outpt insulin needs). PLAN FOR INPATIENT GLYCEMIC CONTROL: * Hold outpatient oral diabetes medications (glipizide) * Basal insulin * Lantus 22 units SQ BID * Bolus insulin * NovoLog per scale ACHS or Q6hrs while NPO * Goal Range: Low 110 mg/dL - High 140 mg/dL * Correction Factor: 15 mg/dL/unit * Nutritional / Prandial insulin per carb ratio of 1 unit per 5 grams CHO consumed
--- NOTE | 2021-12-21 14:18 | Podiatry Consultation ---
Date of Consultation December 21, 2021 Assessment & Plan (1) Peripheral vascular disease: will continue to monitor patient, discussed today that he should continue to improve bc of the improved blood flow to the right lower extremity, I do not recommend any further surgery and recommend for him to continue f/u with vascular and will arrange outpatient f/u (2) Lower extremity edema: History of Present Illness Attending Physician: Cyndi Grimm MD History of Present Illness Patient seen today and is improved after intervention, he notes no pain in the right foot and I appreciate better coloration to the digits and improved cap refill - patient will continue po abx - will continue to monitor the foot in the outpatient setting and will arrange for follow up Allergies Allergy/AdvReac Type Severity Reaction Status Date / Time ropinirole AdvReac Intermediate CHANGE IN Verified 12/13/21 21:22 MENTAL STATUS Home Medications Medication Instructions Recorded Confirmed Type albuterol sulfate 90 mcg/actuation 2 puffs inhalation QID PRN 01/10/19 12/13/21 History aerosol inhaler shortness of breath or wheezing budesonide-formoterol HFA 160 2 puffs inhalation BID 01/10/19 12/13/21 History mcg-4.5 mcg/actuation aerosol inhaler (Symbicort) docusate sodium 100 mg capsule 200 mg PO BID 01/10/19 12/13/21 History levothyroxine 88 mcg tablet 88 mcg PO DAILYBB #90 tabs 01/10/19 12/13/21 History metoprolol tartrate 25 mg tablet 25 mg PO BID #90 tabs 01/10/19 12/13/21 History multivitamin (Daily Multi-Vitamin) 1 tab PO DAILY 01/10/19 12/13/21 History potassium chloride 20 mEq 20 meq PO TID 01/10/19 12/13/21 History tablet,extended release tiotropium bromide 18 mcg capsule 1 cap inhalation DAILY #90 01/10/19 12/13/21 History with inhalation device (Spiriva inhalations with HandiHaler) finasteride 5 mg tablet 5 mg PO HS 04/23/19 12/13/21 History inulin 2 gram chewable tablet 2 g PO DAILY 04/23/19 12/13/21 History (Fiber Gummies) losartan 25 mg tablet 25 mg PO QAM 04/23/19 12/13/21 History tamsulosin 0.4 mg capsule 0.4 mg PO HS 04/23/19 12/13/21 History vit C,E,zinc,copper-hsywi1r 250 1 cap PO DAILY 04/23/19 12/13/21 History mg-lutein 5 mg-zeaxanthin 1 mg capsule (Ocuvite Adult 50 Plus) gabapentin 100 mg capsule 100 mg PO QAM #30 caps 02/21/20 12/13/21 History clonazepam 0.5 mg tablet 0.25 mg PO BID 03/16/20 12/13/21 History bumetanide 1 mg tablet 3 mg PO BID 12/16/20 12/13/21 History clonazepam 0.5 mg tablet 0.5 mg PO QPM 12/16/20 12/13/21 History diphenhydramine HCl 25 mg tablet 25 mg PO BID PRN Allergy Symptoms 12/16/20 12/13/21 History gabapentin 100 mg capsule 300 mg PO HS 12/16/20 12/13/21 History glipizide 10 mg tablet 10 mg PO BID 12/16/20 12/13/21 History pantoprazole 20 mg tablet,delayed 20 mg PO DAILY 12/16/20 12/13/21 History release clopidogrel 75 mg tablet 75 mg PO QAM 90 days #90 tabs 04/20/21 12/13/21 Rx Unknown Statin Medication 1 tab PO HS 10/11/21 12/13/21 History aspirin 81 mg tablet,delayed 81 mg PO DAILY 10/11/21 12/13/21 History release cephalexin 250 mg capsule 250 mg PO BID 10 days #20 caps 12/05/21 12/13/21 Rx amlodipine 5 mg tablet 5 mg PO DAILY 12/13/21 12/13/21 History doxycycline hyclate 100 mg capsule 100 mg PO BID 12/13/21 12/13/21 History insulin glargine 100 unit/mL (3 40 unit subcut PM 12/13/21 12/13/21 History mL) subcutaneous pen (Lantus Solostar U-100 Insulin) insulin glargine 100 unit/mL (3 54 unit subcut QAM 12/13/21 12/13/21 History mL) subcutaneous pen (Lantus Solostar U-100 Insulin) Patient History Medical History Acute bronchopneumonia Acute urinary retention Anxiety Aortic stenosis Mild per 03/06/19 stress ECHO Asthma Uses rescue inhaler a couple times per week Atrial fibrillation Follows with Dr. Maile Soares Blindness of left eye BPH (benign prostatic hyperplasia) CAD (coronary artery disease) Angioplasty ~1993, CABG x 3 2013 (GALINDO to LAD, SVG to PDA, SVG to OM) CHF (congestive heart failure) Chronic kidney disease Follows with Dr. Dixon Chronic obstructive pulmonary disease Diabetes Type 2 IDDM Foot ulcer GERD (gastroesophageal reflux disease) Herpes zoster Hiatal hernia Hyperlipidemia Hypertension Hypervolemia Hypothyroidism Leukocytosis Macular degeneration Myocardial infarct ~1993 Peripheral neuropathy Rupture of left distal biceps tendon hx - no surgery Secondary hyperparathyroidism (of renal origin) SIRS (systemic inflammatory response syndrome) Surgical History Fusion of spine lumbar History of appendectomy History of cardiac cath with angioplasty ~1993 ([facility]) & 2013 ([facility]) History of cataract surgery bilateral History of coronary artery bypass graft x3 vessels ([facility] 2013) with epicardial RFA of pulmonary veins and left atrial appendage ligation History of revision of total replacement of right knee joint History of tonsillectomy History of tooth extraction History of total left knee replacement History of total right knee replacement Hx of colonoscopy Previous back surgery (08/26/12) S/P cholecystectomy Family History Brother Heart disease Diabetes Sister Cancer Mother Diabetes Father Diabetes Other Hypertension Kidney disease Social History Smoking Status: Never smoker Tobacco Type: Cigarettes Second Hand Exposure: No; Do You Dip or Chew Tobacco: No; Hx Alcohol Use: No Hx Substance Use: No Preferred Language: Syriac Communication Ability: Effective Visual Impairment: Partially Limited Lube Worker Required: No Beliefs That Will Affect Care: None marital status: Current Living Situation: Spouse Current Living Situation Comment: apartment, 1 level current occupational status: retired Feels Safe at Home: Yes Safety Concerns: Feels Safe At This Time Assistive Devices: Cane, Walker and Wheelchair Physical Exam Skin: improved refill of toes especially noted of the r4th and 5th toe, improved color and warmth noted, no open wounds present, no pain indicated with range of motion of the digits or foot, patient stated he walking up and down the hallway Results & Data ([facility]) Vital Signs (Past 12 Hours) Vital Signs Temp Pulse Pulse Resp BP BP Pulse Ox 12/21/21 11:59 36.9 C 60 18 144/63 H 96 12/21/21 08:00 62 12/21/21 07:45 36.8 C 68 18 139/74 96 O2 Del Method 12/21/21 11:59 Room Air 12/21/21 08:00 12/21/21 07:45 Room Air
--- NOTE | 2021-12-21 17:09 | Vascular Medicine ProgressNote ---
Date of Service December 21, 2021 Assessment & Plan (1) Peripheral vascular disease: Plan: 2. Coronary artery disease--status post CABG, PCI 3. Type 2 DM 4. CKD 5. HFpEF 6. Afib 7. COPD Post successful angioplasty to anterior tibial artery yesterday. Distal arterial perfusion appears improved. No apparent access site complications. Serum creatinine elevated today. Would hold additional Bumex today, tomorow. Will need repeat BMP as an outpatient in 2-3 days. Home on prior DAPT with aspirin, clopidogrel. Follow-up with me in 2 weeks with repeat noninvasive vascular testing. Admission and Anticipated Discharge Date Admission Date: December 13, 2021 Subjective Feeling well this morning. Actively doing leg lifts in his bed. Denies any pain in his right foot. Pain behind his right knee has improved. Telemetry reviewno events Physical Exam Physical Exam: General: No acute distress, comfortable. HEENT: Sclerae anicteric. Lungs: Clear to auscultation bilaterally without rales, rhonchi or wheezes. Cardiac: Regular rate and rhythm. S1-S2 normal. 2/6 systolic murmur Extremities/vascular: --Well perfused. No significant edema --2+ left femoral artery, mild ecchymosis, no hematoma -- RT 2+ DP, PT diminished. LT 1+ DP/PT. --RT digits with normal capillary refill, no discoloration. No ulcerations. No induration. No erythema in forefoot. Psychiatric: Affect appropriate. Alert and oriented Results & Data ([facility]) Vital Signs (Past 12 Hours) Vital Signs Temp Pulse Pulse Pulse Resp BP BP 12/21/21 15:19 98.4 F 60 62 18 139/74 144/63 H 12/21/21 11:59 98.4 F 60 18 144/63 H 12/21/21 08:00 62 12/21/21 07:45 98.2 F 68 18 139/74 Pulse Ox O2 Del Method 12/21/21 15:19 96 12/21/21 11:59 96 Room Air 12/21/21 08:00 12/21/21 07:45 96 Room Air PG Care Time/CCT Total # of Minutes Spent Total Time Spent with Patient: Total time spent is greater than 50% in coordination of care (as documented) at patient's floor/unit and/or counseling patient: Coding Level of Care Code 32335 Subseq Hosp Care Lvl 3 Diagnoses Peripheral vascular disease I73.9
--- NOTE | 2021-12-21 18:42 | Discharge Summary ---
Date of Service December 21, 2021 Admission HPI Per Admitting Provider The patient is a 86-year-old male with a past medical history including CHF, CKD, mild aortic stenosis, peripheral vascular disease, BPH with LUTS, COPD, hypothyroidism, hypertension, dyslipidemia, paroxysmal atrial fibrillation, vitamin D deficiency, CAD, myocardial infarction, GERD and diabetes mellitus. The patient initially been seen in the emergency department for bilateral lower extremity cellulitis on 12/05/2021, where he received ceftriaxone 2 g IV, and then was discharged on Keflex and doxycycline orally. Patient did take his antibiotics as directed, had persistent worsening, and was referred to the ED for further treatment with IV antibiotics by his PCP. Discharge Data Consultations 12/13/21 19:46 ED Decision to Admit Stat 12/14/21 16:35 Consult Cardiology Routine 12/15/21 10:08 Consult Orthopedic Surgery Routine Procedures Performed Operation Date: 12/20/21 08:00 Actual Procedures s Tibial Peroneal Balloon - Gary Rodriguez MD s Placement Art Occlusive Device - Gary Rodriguez MD s Ultrasound Vascular Access - Gary Rodriguez MD p Angio Extremity Unilateral - Gary Rodriguez MD Diabetes Follow Up Diabetes Follow Up: Diabetes Follow-up Needed for HgbA1c >9% Hospital Course (1) Peripheral vascular disease: Patient is a 86 y/o male here for ischemic foot changes due to PAD with probable overlying cellulitis. Dr. Rodriguez performed Tibial Peroneal Balloon, Placement Art Occlusive Device, and Angio Extremity Unilateral. Foot/leg pain improved immediately after surgery. He was started on dual antiplatelet and will continue Plavix and baby aspirin until seen by Dr. Rodriguez. He will follow up with Dr. Rodriguez in 2 weeks for vascular follow up. He was started on IV antibiotics for concern of cellulitis. He was evaluated by podiatry as well for possible osteomyelitis but Dr. Amada Ghotra had no concern of osteomyelitis. He was discharged on Keflex per podiatry's recommendation and will follow up with them in the clinic. Patient's diabetes was not well controlled during his hospital course. Had episodes of low blood glucose and high. On discharge his insulin glargine (Lantus) will be decreased to 25 units twice a day. Glipizide will be discontinued. Patient was unsure if he ever had Metformin in the past but is not recommended at this time due to chronic kidney disease. Novolog was not prescribed but discussed with the patient and may be beneficial to start outpatient. Patient was hypervolemic on admission - possibly due to noncompliance with his home dose of Bumetanide at 3mgs bid. He was diuresed with IV lasix and later switched to bumetinide 2mg bid and stayed euvolemic and so his home dose has been changed to bumetinide 2mgs bid. To f/u with PCP regarding compliance with diuretics. (2) Lower extremity edema: Discharge Instructions You were seen in hospital for peripheral artery disease in your legs. Initially, you were treated for cellulitis with antibiotics which has resolved. You do not need to continue any antibiotics. Dr. Rodriguez performed an angioplasty of your right lower extremity on 12/20 for your peripheral artery disease. You should follow up with your PCP within one week and follow up with Dr. Rodriguez in 2 weeks for vascular follow up. Follow up with podiatry as well. Appointments will be made for you and you will be contacted by the respective scheduling offices. If you do not hear back in the next few days, please call. Medications: Continue daily Plavix and baby aspirin. Dr. Rodriguez will determine how long you will need to take these. Continue the cholesterol medication (rosuvastatin 20mg nightly). This was confirmed with your [facility]. You had a low blood sugar early in your hospital stay. Your insulin glargine (Lantus) will be decreased to 25 units twice a day. Of note, you were also receiving Novolog (a quick acting insulin) in the hospital. Without the Novolog you may likely need more than 25 units twice daily of the Lantus. Please work with Yes[facility] to slowly increase the dose, as needed. Glipizide can contribute to low sugars. This will be discontinued. Metformin, a diabetes pill, was discussed; however, because of chronic kidney disease, it is not recommended. Another medication option instead of Glipzide to help better target your blood sugar levels around meals, would be to add a quick-acting insulin (Novolog) with meals. You were receiving ~10-12 units of Novolog with meals while you were in the hospital. Please talk with Yes[facility] to see if this would be a better option than the Glipizide for you. Your PCP/[facility] will adjust your diabetes regimen as needed. Your BMP labs (kidney function) will be rechecked by your PCP in approximately 1 week. Your bumetanide will be decreased from 3mg daily to 2mg daily based on what you have needed in the hospital. You have been prescribed an antibiotic called Kemarlon. Take this twice a day, first dose evening of 12/21. The previous 2 antibiotics you were on have been discontinued. Dr. Asencio from podiatry will determine the duration. clonazepam: med list updated to reflect your [facility] dosing. No changes were made. The Benadryl has been discontinued. In general, this medication is less recommended for regular use in older patients as it can contribute to drowsiness and confusion. Return precautions: especially pay attention to infectious symptoms such as fever or redness/drainage of your feet/legs. If you develop any new or worsening symptoms including fever, chills, sweats, chest pain, chest pressure, difficulty breathing, uncontrolled nausea/vomiting, rash, wheezing, passing out or nearly passing out, bleeding, black/bloody bowel movements, or other new or concerning symptoms please call your primary care physician, or call 911 for re-evaluation in the emergency department if you are very concerned. Supervising Physician Co-Signing Physician Notes Resident Physician Supervision Note: I independently interviewed and examined the patient and verified the aguayo history and physical, reviewed labs and image studies and agree with resident Dr. Chan findings and care plan.
[2021-12-22] MEDS ORDERED: INSULIN ASPART PER UNIT SC ONE (02:00)
== END 2021-12-21 17:05 | disposition home or self-care (01) | DRG 982 ==
LOC: ED 17:22 → 2W 20:38 → SUATTDRO 20:38 → 2W 21:40 → 2E 12-20 15:18
PROC: CLB.AEU (2021-12-20 08:00)

== ENCOUNTER 2022-10-08 15:44 | Inpatient (IN) ==
--- NOTE | 2022-10-08 16:23 | Emergency Department Note ---
History of Present Illness General Chief complaint: Swelling/Edema to Extremity Stated complaint: NOT URINATING, SWOLLEN BODY Time Seen by Provider: 10/08/22 16:02 History of Present Illness Provider complaint: Swelling Onset (ago): week(s) 1 Location: lower extremity, left and right Maximum Pain Intensity: 8 86-year-old male presents emergency department with for lower extremity swelling. reports he has been having troubles with lower extremity swelling for almost 1 week. She states this is an ongoing issue. She states that today the patient started having swelling in his face and she was afraid that he was filling up with fluid. Patient reports difficulty breathing. reports that the patient has been on Keflex for a skin infection of his left lower extremity as well as Cipro for prostate infection/UTI. Home Medications Medication Instructions Recorded Confirmed Type albuterol sulfate 90 mcg/actuation 2 puffs inhalation QID PRN 01/10/19 10/08/22 History aerosol inhaler shortness of breath or wheezing levothyroxine 88 mcg tablet 88 mcg PO DAILYBB #90 tabs 01/10/19 10/08/22 History potassium chloride 20 mEq 20 meq PO BID 01/10/19 10/08/22 History tablet,extended release finasteride 5 mg tablet 5 mg PO HS 04/23/19 10/08/22 History losartan 25 mg tablet 25 mg PO QAM 04/23/19 10/08/22 History tamsulosin 0.4 mg capsule 0.4 mg PO HS 04/23/19 10/08/22 History gabapentin 100 mg capsule See Rx Instructions .Route .COMPLEX 12/16/20 10/08/22 History aspirin 81 mg tablet,delayed 81 mg PO DAILY 10/11/21 10/08/22 History release pantoprazole 20 mg tablet,delayed 20 mg PO BID 02/07/22 10/08/22 History release glipizide 10 mg tablet 10 mg PO BID 03/29/22 10/08/22 History insulin glargine 100 unit/mL (3 See Rx Instructions .Route .COMPLEX 04/12/22 10/08/22 History mL) subcutaneous pen (Lantus Solostar U-100 Insulin) acetaminophen 500 mg tablet 1,000 mg PO Q6H PRN PAIN/FEVER 05/28/22 10/08/22 History (Tylenol Extra Strength) bumetanide 2 mg tablet 2 mg PO BID 05/28/22 10/08/22 History clonazepam 1 mg tablet 1 mg PO BID 05/28/22 10/08/22 History diphenhydramine HCl 25 mg capsule 25 mg PO BID PRN NEEDED 05/28/22 10/08/22 History (Benadryl) fluticasone 500 mcg-salmeterol 50 1 inh inhalation BID 05/28/22 10/08/22 History mcg/dose blistr powdr for inhalation metoprolol tartrate 50 mg tablet 25 mg PO BID 05/28/22 10/08/22 History multivitamin with minerals 1 tab PO DAILY 05/28/22 10/08/22 History rosuvastatin 20 mg tablet 20 mg PO HS 05/28/22 10/08/22 History tiotropium bromide 2.5 2 puff inhalation DAILY 05/28/22 10/08/22 History mcg/actuation mist for inhalation vitamins A,C,H-cmiy-suzlwi 2,148 1 tab PO DAILY 05/28/22 10/08/22 History mcg-113 mg-45 mg-17.4 mg tablet (PreserVision AREDS) apixaban 5 mg tablet (Eliquis) 5 mg PO BID 09/26/22 10/08/22 History ciprofloxacin HCl 500 mg tablet 500 mg PO DAILY #14 tabs 10/05/22 10/08/22 Rx (Cipro) cephalexin 500 mg capsule 500 mg PO BID 10/08/22 10/08/22 History empagliflozin 10 mg tablet 10 mg PO DAILY 10/08/22 10/08/22 History Allergies Allergy/AdvReac Type Severity Reaction Status Date / Time semaglutide [From Ozempic] AdvReac Severe NAUSEA/VOMI Verified 10/08/22 17:29 TING/ANOREX IA amlodipine AdvReac Intermediate SWELLING Verified 10/08/22 17:29 OF ANKLES ropinirole AdvReac Intermediate CHANGE IN Verified 10/08/22 17:29 MENTAL STATUS Past Med/Surg History Medical History Acute bronchopneumonia Acute urinary retention Oxoju-br-upibepd kidney injury AMS (altered mental status) Anxiety Aortic stenosis Mild per 03/06/19 stress ECHO Asthma Uses rescue inhaler a couple times per week Atrial fibrillation Follows with Dr. Gr Bacteremia Blindness of left eye BPH (benign prostatic hyperplasia) CAD (coronary artery disease) Angioplasty ~1993, CABG x 3 2013 (GALINDO to LAD, SVG to PDA, SVG to OM) CHF (congestive heart failure) Chronic kidney disease Follows with Dr. Dixon Chronic obstructive pulmonary disease Diabetes Type 2 IDDM Foot ulcer GERD (gastroesophageal reflux disease) Herpes zoster Hiatal hernia Hyperlipidemia Hypertension Hypervolemia Hypothyroidism Leukocytosis Macular degeneration Myocardial infarct ~1993 Peripheral neuropathy Rupture of left distal biceps tendon hx - no surgery Secondary hyperparathyroidism (of renal origin) SIRS (systemic inflammatory response syndrome) Surgical History Fusion of spine lumbar History of appendectomy History of cardiac cath with angioplasty ~1993 ([facility]) & 2013 ([facility]) History of cataract surgery bilateral History of coronary artery bypass graft x3 vessels ([facility] 2013) with epicardial RFA of pulmonary veins and left atrial appendage ligation History of revision of total replacement of right knee joint History of tonsillectomy History of tooth extraction History of total left knee replacement History of total right knee replacement Hx of colonoscopy Previous back surgery (08/26/12) S/P cholecystectomy Family History Brother Heart disease Diabetes Sister Cancer Mother Diabetes Father Diabetes Other Hypertension Kidney disease Social History Smoking Status: Former smoker Tobacco Type: Cigarettes Second Hand Exposure: No; Do You Dip or Chew Tobacco: No; Hx Alcohol Use: No Hx Substance Use: No Preferred Language: Ethiopian Communication Ability: Effective Visual Impairment: Partially Limited 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 Required: No Beliefs That Will Affect Care: None marital status: Current Living Situation: Spouse Current Living Situation Comment: apartment, 1 level current occupational status: retired Feels Safe at Home: Yes Assistive Devices: Cane, Walker and Wheelchair Physical Exam Vital Signs Vital Signs - 24 hr 10/08/22 15:52 10/08/22 16:02 10/08/22 16:05 Temperature 36.8 C Temperature Source Oral Pulse Rate 63 63 Pulse Rate [Apical] 65 Pulse Rhythm [Apical] Regular Pulse Strength [Apical] Normal Respiratory Rate 18 24 Respiratory Effort / Characteristics Short of Breath Blood Pressure 124/64 Blood Pressure [Right Arm] 184/81 H Blood Pressure Mean 84 Blood Pressure Mean [Right Arm] 115 Blood Pressure Position [Right Arm] Semi-fowlers Pulse Oximetry 94 95 Oxygen Delivery Method Room Air Room Air Sepsis Recent Fever Within 48 Hours No Sepsis New/Unexplained Change in Mental Status No Sepsis Action Taken by Nursing No Action Required 10/08/22 18:06 10/08/22 20:08 10/08/22 20:00 Temperature Temperature Source Pulse Rate 67 Pulse Rate [Apical] 72 Pulse Rhythm [Apical] Pulse Strength [Apical] Respiratory Rate 14 22 Respiratory Effort / Characteristics Blood Pressure 133/71 Blood Pressure [Right Arm] 175/119 H Blood Pressure Mean 91 Blood Pressure Mean [Right Arm] 137 Blood Pressure Position [Right Arm] Semi-fowlers Pulse Oximetry 100 94 95 Oxygen Delivery Method Room Air Room Air Room Air Sepsis Recent Fever Within 48 Hours Sepsis New/Unexplained Change in Mental Status Sepsis Action Taken by Nursing 10/08/22 20:00 Temperature Temperature Source Pulse Rate 67 Pulse Rate [Apical] Pulse Rhythm [Apical] Pulse Strength [Apical] Respiratory Rate Respiratory Effort / Characteristics Blood Pressure Blood Pressure [Right Arm] Blood Pressure Mean Blood Pressure Mean [Right Arm] Blood Pressure Position [Right Arm] Pulse Oximetry Oxygen Delivery Method Sepsis Recent Fever Within 48 Hours Sepsis New/Unexplained Change in Mental Status Sepsis Action Taken by Nursing Physical Exam HENT: Exam performed. - Head: Normocephalic and atraumatic. - Right Ear: External ear normal. No mastoid erythema - Left Ear: External ear normal. No mastoid erythema EYES: Conjunctivae and EOM are normal. Right eye exhibits no discharge. Left eye exhibits no discharge. No scleral icterus. NECK: Normal range of motion. Neck supple. No JVD present. No spinous process tenderness present.No tracheal deviation and normal range of motion present. CV: Normal rate, regular rhythm, normal heart sounds and intact distal pulses. Palpable radial pulses bue. PULM/CHEST: Inspiratory rales bilaterally. Rhonchi bilaterally. ABD: The abdomen is soft. There is no tenderness. There is no rebound, no guarding MUSC/SKEL: 3+ pitting edema of the bilateral lower extremities. 5 x 4 cm skin lesion of the left lower extremity that is erythematous with no active discharge or bleeding. NEURO: He is alert and oriented to person, place, and time. He has normal strength. No cranial nerve deficit or sensory deficit. PSYCH: He has a normal mood and affect. Behavior is normal. Judgment and thought content normal. Course Course 1602: The patient was evaluated in room B12. A complete history and physical exam was performed Administered Medications Discontinued Medications Albuterol (Albut/Ipratrop 3mg/0.5mg Neb 3 Ml Vial) 3 ml NEB NOW STA; Protocol Stop: 10/08/22 16:57 Last Admin: 10/08/22 18:03 Dose: 3 ml Documented By: Dextrose (Dextrose 50% 50 Ml Syringe) 50 ml IV NOW STA Stop: 10/08/22 16:57 Last Admin: 10/08/22 17:57 Dose: 50 ml Documented By: Calcium Gluconate 1,000 mg/ (Dextrose) 60 mls @ 240 mls/hr IV ONCE STA Stop: 10/08/22 17:10 Last Infusion: 10/08/22 18:17 Dose: 0 mls/hr Documented By: Admin: 10/08/22 18:02 Dose: 240 mls/hr Documented By: Insulin Human Regular 10 units (/ Syringe) 9.9 mls @ 3 mls/sec IV ONE STA Stop: 10/08/22 16:57 Last Admin: 10/08/22 18:00 Dose: 3 mls/sec Documented By: Co-signed By: ALISA Miscellaneous (Stat Iv) 1 each N/A NOW STA Stop: 10/08/22 16:57 Last Admin: 10/08/22 18:03 Dose: 1 each Documented By: Critical Care Time Critical Care Time: Yes Total Critical Care Time: 68 I have personally spent greater than 68 minutes of critical care time in the direct management of this patient. This includes bedside care, interpretation of diagnostic studies, and testing, discussion with consultants, patient, and family members, and other required patient management activities. This 68 minutes is in excess of all separately billable procedures. Medical Decision Making Laboratory Data Attestation: I reviewed the patient's lab results. 10/08/22 16:04 10/08/22 16:04 Lab Results 10/08/22 10/08/22 10/08/22 Range/Units 16:04 16:04 16:04 WBC 9.23 (4.8-10.8) K/ul RBC 4.32 L (4.70-6.10) M/uL Hgb 13.8 L (14.0-18.0) g/dl Hct 38.5 L (42.0-52.0) % MCV 89.1 (80.0-100.0) fL MCH 31.9 (25.0-34.0) pg MCHC 35.8 (32.0-36.0) g/dL RDW Std Deviation 44.5 (36.4-46.3) fL RDW Coeff of Adrian 13.5 (11.5-14.5) % Plt Count 159 (130-400) K/uL MPV 9.5 (9.4-12.4) fL Immature Gran % (Auto) 2.0 % Neut % (Auto) 74.0 % Lymph % (Auto) 14.4 % [place] % (Auto) 8.3 % Eos % (Auto) 0.9 % Baso % (Auto) 0.4 % Neut # (Auto) 6.83 H (1.40-6.50) K/uL Lymph # (Auto) 1.33 (1.2-3.4) K/uL [place] # (Auto) 0.77 H (0.11-0.59) K/uL Eos # (Auto) 0.08 (0-0.50) K/uL Baso # (Auto) 0.04 (0-0.2) K/uL Immature Gran # (Auto) 0.18 (0.01-0.20) K/uL PT 11.6 (9.0-12.0) Seconds INR 1.1 (0.9-1.1) APTT 31.4 H (21.0-31.0) Seconds PTT Ratio 1.1 VBG pH (7.36-7.41) VBG pCO2 (38-50) mmHg VBG pO2 mmHg VBG HCO3 mmol/L VBG O2 Saturation % VBG Base Excess mEq/L Sodium 125 L (136-145) mmol/L Potassium 6.1 H* (3.5-5.1) mmol/L Chloride 95 L (98-107) mmol/L Carbon Dioxide 21 (21-32) mmol/L Anion Gap 9 (3-11) BUN 78 H (6-23) mg/dl Creatinine 5.57 H* (0.6-1.4) mg/dl Est Cr Clr Drug Dosing 9.6 ml/min Est GFR ( Amer) 9.9 ml/min Est GFR (Non-Af Amer) 8.5 ml/min BUN/Creatinine Ratio 14.0 (10-20) Glucose 292 H (70-99(Fasting)) mg/dl POC Glucose (70-99) mg/dl Lactate (0.4-2.0) mmol/L Calcium 8.1 L (8.6-10.3) mg/dl Phosphorus (2.5-4.9) mg/dl Magnesium 2.4 (1.7-2.4) mg/dl Troponin I High Sens 21.1 H (0-20) pg/ml B-Natriuretic Peptide (0-100) pg/ml Urine Color Urine Appearance (Clear) Urine pH (4.5-7.5) Ur Specific Vina (1.000-1.030) Urine Protein (Negative) Urine Glucose (UA) (Negative) Urine Ketones (Negative) Urine Blood (Negative) Urine Nitrite (Negative) Urine Bilirubin (Negative) Urine Urobilinogen (Negative) Ur Leukocyte Esterase (Negative) Urine WBC (Auto) (0-5) /hpf Urine RBC (Auto) (0-4) /hpf U Hyaline Cast (Auto) (0-5) /lpf U Epithel Cells (Auto) (0-5) /lpf Urine Bacteria (Auto) (Negative) Ur Renal Epithelial Cell Amorphous Sediment (None Prsent) Urine Yeast SARS-CoV-2 (PCR) (Negative) Influenza Type A (PCR) (Neg) Influenza Type B (PCR) (Neg) RSV (RT-PCR) (Neg) 10/08/22 10/08/22 10/08/22 Range/Units 16:04 16:23 16:23 WBC (4.8-10.8) K/ul RBC (4.70-6.10) M/uL Hgb (14.0-18.0) g/dl Hct (42.0-52.0) % MCV (80.0-100.0) fL MCH (25.0-34.0) pg MCHC (32.0-36.0) g/dL RDW Std Deviation (36.4-46.3) fL RDW Coeff of Adrian (11.5-14.5) % Plt Count (130-400) K/uL MPV (9.4-12.4) fL Immature Gran % (Auto) % Neut % (Auto) % Lymph % (Auto) % [place] % (Auto) % Eos % (Auto) % Baso % (Auto) % Neut # (Auto) (1.40-6.50) K/uL Lymph # (Auto) (1.2-3.4) K/uL [place] # (Auto) (0.11-0.59) K/uL Eos # (Auto) (0-0.50) K/uL Baso # (Auto) (0-0.2) K/uL Immature Gran # (Auto) (0.01-0.20) K/uL PT (9.0-12.0) Seconds INR (0.9-1.1) APTT (21.0-31.0) Seconds PTT Ratio VBG pH 7.36 (7.36-7.41) VBG pCO2 38 (38-50) mmHg VBG pO2 41 mmHg VBG HCO3 22 mmol/L VBG O2 Saturation 74.1 % VBG Base Excess -3.6 mEq/L Sodium (136-145) mmol/L Potassium (3.5-5.1) mmol/L Chloride (98-107) mmol/L Carbon Dioxide (21-32) mmol/L Anion Gap (3-11) BUN (6-23) mg/dl Creatinine (0.6-1.4) mg/dl Est Cr Clr Drug Dosing ml/min Est GFR ( Amer) ml/min Est GFR (Non-Af Amer) ml/min BUN/Creatinine Ratio (10-20) Glucose (70-99(Fasting)) mg/dl POC Glucose (70-99) mg/dl Lactate (0.4-2.0) mmol/L Calcium (8.6-10.3) mg/dl Phosphorus (2.5-4.9) mg/dl Magnesium (1.7-2.4) mg/dl Troponin I High Sens (0-20) pg/ml B-Natriuretic Peptide 434 H (0-100) pg/ml Urine Color Urine Appearance (Clear) Urine pH (4.5-7.5) Ur Specific Vina (1.000-1.030) Urine Protein (Negative) Urine Glucose (UA) (Negative) Urine Ketones (Negative) Urine Blood (Negative) Urine Nitrite (Negative) Urine Bilirubin (Negative) Urine Urobilinogen (Negative) Ur Leukocyte Esterase (Negative) Urine WBC (Auto) (0-5) /hpf Urine RBC (Auto) (0-4) /hpf U Hyaline Cast (Auto) (0-5) /lpf U Epithel Cells (Auto) (0-5) /lpf Urine Bacteria (Auto) (Negative) Ur Renal Epithelial Cell Amorphous Sediment (None Prsent) Urine Yeast SARS-CoV-2 (PCR) NEGATIVE (Negative) Influenza Type A (PCR) Negative (Neg) Influenza Type B (PCR) Negative (Neg) RSV (RT-PCR) Negative (Neg) 10/08/22 10/08/22 10/08/22 Range/Units 16:23 16:56 18:48 WBC (4.8-10.8) K/ul RBC (4.70-6.10) M/uL Hgb (14.0-18.0) g/dl Hct (42.0-52.0) % MCV (80.0-100.0) fL MCH (25.0-34.0) pg MCHC (32.0-36.0) g/dL RDW Std Deviation (36.4-46.3) fL RDW Coeff of Adrian (11.5-14.5) % Plt Count (130-400) K/uL MPV (9.4-12.4) fL Immature Gran % (Auto) % Neut % (Auto) % Lymph % (Auto) % [place] % (Auto) % Eos % (Auto) % Baso % (Auto) % Neut # (Auto) (1.40-6.50) K/uL Lymph # (Auto) (1.2-3.4) K/uL [place] # (Auto) (0.11-0.59) K/uL Eos # (Auto) (0-0.50) K/uL Baso # (Auto) (0-0.2) K/uL Immature Gran # (Auto) (0.01-0.20) K/uL PT (9.0-12.0) Seconds INR (0.9-1.1) APTT (21.0-31.0) Seconds PTT Ratio VBG pH (7.36-7.41) VBG pCO2 (38-50) mmHg VBG pO2 mmHg VBG HCO3 mmol/L VBG O2 Saturation % VBG Base Excess mEq/L Sodium (136-145) mmol/L Potassium (3.5-5.1) mmol/L Chloride (98-107) mmol/L Carbon Dioxide (21-32) mmol/L Anion Gap (3-11) BUN (6-23) mg/dl Creatinine (0.6-1.4) mg/dl Est Cr Clr Drug Dosing ml/min Est GFR ( Amer) ml/min Est GFR (Non-Af Amer) ml/min BUN/Creatinine Ratio (10-20) Glucose (70-99(Fasting)) mg/dl POC Glucose 225 H (70-99) mg/dl Lactate 1.6 (0.4-2.0) mmol/L Calcium (8.6-10.3) mg/dl Phosphorus (2.5-4.9) mg/dl Magnesium (1.7-2.4) mg/dl Troponin I High Sens (0-20) pg/ml B-Natriuretic Peptide (0-100) pg/ml Urine Color Yellow Urine Appearance Turbid A (Clear) Urine pH 5.0 (4.5-7.5) Ur Specific Vina 1.035 H (1.000-1.030) Urine Protein 4+ H (Negative) Urine Glucose (UA) 1+ H (Negative) Urine Ketones Negative (Negative) Urine Blood 3+ H (Negative) Urine Nitrite Negative (Negative) Urine Bilirubin Negative (Negative) Urine Urobilinogen Negative (Negative) Ur Leukocyte Esterase Trace H (Negative) Urine WBC (Auto) >30 H (0-5) /hpf Urine RBC (Auto) 0-4 (0-4) /hpf U Hyaline Cast (Auto) 0 (0-5) /lpf U Epithel Cells (Auto) >30 H (0-5) /lpf Urine Bacteria (Auto) Negative (Negative) Ur Renal Epithelial Cell Not Reportable Amorphous Sediment Present A (None Prsent) Urine Yeast Not Reportable SARS-CoV-2 (PCR) (Negative) Influenza Type A (PCR) (Neg) Influenza Type B (PCR) (Neg) RSV (RT-PCR) (Neg) 10/08/22 Range/Units 20:06 WBC (4.8-10.8) K/ul RBC (4.70-6.10) M/uL Hgb (14.0-18.0) g/dl Hct (42.0-52.0) % MCV (80.0-100.0) fL MCH (25.0-34.0) pg MCHC (32.0-36.0) g/dL RDW Std Deviation (36.4-46.3) fL RDW Coeff of Adrian (11.5-14.5) % Plt Count (130-400) K/uL MPV (9.4-12.4) fL Immature Gran % (Auto) % Neut % (Auto) % Lymph % (Auto) % [place] % (Auto) % Eos % (Auto) % Baso % (Auto) % Neut # (Auto) (1.40-6.50) K/uL Lymph # (Auto) (1.2-3.4) K/uL [place] # (Auto) (0.11-0.59) K/uL Eos # (Auto) (0-0.50) K/uL Baso # (Auto) (0-0.2) K/uL Immature Gran # (Auto) (0.01-0.20) K/uL PT (9.0-12.0) Seconds INR (0.9-1.1) APTT (21.0-31.0) Seconds PTT Ratio VBG pH (7.36-7.41) VBG pCO2 (38-50) mmHg VBG pO2 mmHg VBG HCO3 mmol/L VBG O2 Saturation % VBG Base Excess mEq/L Sodium (136-145) mmol/L Potassium (3.5-5.1) mmol/L Chloride (98-107) mmol/L Carbon Dioxide (21-32) mmol/L Anion Gap (3-11) BUN (6-23) mg/dl Creatinine (0.6-1.4) mg/dl Est Cr Clr Drug Dosing ml/min Est GFR ( Amer) ml/min Est GFR (Non-Af Amer) ml/min BUN/Creatinine Ratio (10-20) Glucose (70-99(Fasting)) mg/dl POC Glucose (70-99) mg/dl Lactate (0.4-2.0) mmol/L Calcium (8.6-10.3) mg/dl Phosphorus 6.3 H (2.5-4.9) mg/dl Magnesium (1.7-2.4) mg/dl Troponin I High Sens 19.8 (0-20) pg/ml B-Natriuretic Peptide (0-100) pg/ml Urine Color Urine Appearance (Clear) Urine pH (4.5-7.5) Ur Specific Vina (1.000-1.030) Urine Protein (Negative) Urine Glucose (UA) (Negative) Urine Ketones (Negative) Urine Blood (Negative) Urine Nitrite (Negative) Urine Bilirubin (Negative) Urine Urobilinogen (Negative) Ur Leukocyte Esterase (Negative) Urine WBC (Auto) (0-5) /hpf Urine RBC (Auto) (0-4) /hpf U Hyaline Cast (Auto) (0-5) /lpf U Epithel Cells (Auto) (0-5) /lpf Urine Bacteria (Auto) (Negative) Ur Renal Epithelial Cell Amorphous Sediment (None Prsent) Urine Yeast SARS-CoV-2 (PCR) (Negative) Influenza Type A (PCR) (Neg) Influenza Type B (PCR) (Neg) RSV (RT-PCR) (Neg) Imaging Data Radiologist's Impression: Chest X-Ray 10/08/22 16:16 XR chest 1V portable CLINICAL HISTORY: sob TECHNIQUE: Single frontal radiograph of the chest was obtained. Comparison: Comparison is made to chest radiograph 09/26/2022 FINDINGS: Median sternotomy wires are unchanged. Fractured superior wire is again seen. Calcified aortic knob is seen. The lungs are clear. No evidence of pleural effusion or pneumothorax. IMPRESSION: No acute abnormalities and in particular no radiographic evidence of pneumonia. ACT 112: Negative or not required by law. Electronically signed by: Dano West M.D. 10/08/2022 5:15 PM Abdomen/Pelvis CT 10/08/22 16:57 CT abd pelvis wo con CLINICAL HISTORY: sunshine difficulty urinating TECHNIQUE: Helical axial images of the abdomen and pelvis were obtained. Automated dose lowering techniques and/or adjustment according to patient size were utilized for this exam. This exam was performed without intravenous contrast. CT DOSE: 1039.30 mGy.cm COMPARISON: Comparison is made to CT abdomen pelvis 10/05/2021 FINDINGS: Lower chest: Bibasilar atelectasis versus scarring is seen. Liver: Unremarkable. No focal lesions are seen. Gallbladder and biliary tree: Patient is status post cholecystectomy. No intra- or extrahepatic biliary ductal dilation. Pancreas: Unremarkable, no focal lesions. Spleen: Unremarkable. Adrenals: Unremarkable. Kidneys and ureters: Perinephric stranding is noted bilaterally. Left lower pole cyst is seen. No hydronephrosis is seen. Bladder: Diffuse homogeneous wall thickening is seen. Reproductive organs: Patient appears be status post prostatectomy. Bowel: Unremarkable. Lymph nodes Retroperitoneal: Unremarkable. Pelvic: Unremarkable. Mesenteric: Unremarkable. Peritoneum: Normal. Vessels: Atherosclerotic calcifications are seen. Abdominal wall: Right fat-containing inguinal hernia. Bones: Degenerative changes in the visualized spine. Posterior fixation hardware is seen in the lumbar sacral spine. IMPRESSION: No acute abnormality and in particular no evidence of hydronephrosis. Chronic appearing bladder wall thickening is likely due to chronic outlet obstruction, although superimposed cystitis cannot be entirely excluded. ACT 112: Negative or not required by law. Electronically signed by: Dano West M.D. 10/08/2022 6:17 PM ECG Data Attestation: I personally reviewed and interpreted this ECG as follows: Indication: + SOB/dyspnea Rate (beats per minute): 66 Rhythm: + normal sinus ECG Intervals/blocks: + Right Bundle branch block ECG ST segments: + Normal ST segments Additional Comments: FL 202 QRS 156 QTc 427. MDM Narrative Cardiac monitoring: An order was placed for continuous cardiac monitoring. The monitor shows a rate of 60 with sinus rhythm interpreted by me Vital signs stable. Labs show white blood cell count 9.23 hemoglobin 13.8. VBG within normal limits. Sodium 125. Patient's creatinine is up to 5.57 when compared to creatinine from 3 days ago which was 2.34 and on September 26 it was 1.88. Patient's potassium is 6.1. Patient treated with calcium gluconate, insulin and dextrose, as well as albuterol to help the patient's potassium and respiratory status. Patient's BNP is elevated 434. Diuretics held due To the patient's acute kidney injury. Mild troponin elevation of 21.8. Discussed case with [facility]. [facility]. He has that we speak with nephrology. Discussed with Dr. Yun nephrology who agrees to be on consult for the patient. [facility] Gann admit the patient. Impression & Plan Acute hyperkalemia, Acute hyponatremia, Acute kidney injury superimposed on CKD, Fluid overload, Leg wound, left Discharge Plan Visit Data Chief Complaint: Swelling/Edema to Extremity Stated Complaint: NOT URINATING, SWOLLEN BODY ED Provider: Pola Shafer Discharge Problem: Acute hyperkalemia, Acute hyponatremia, Acute kidney injury superimposed on CKD, Fluid overload, Leg wound, left Patient Disposition: Admitted As Inpatient Forms Stand Alone Forms: My [facility] Prescriptions Prescriptions: No Action insulin glargine [Lantus Solostar U-100 Insulin] 100 unit/mL (3 mL) insulin pen See Rx Instructions .ROUTE .COMPLEX Rx Instructions: TAKES 52 UNITS QAM, THEN 44 UNITS QPM. Per he uses 50 units in evening levothyroxine 88 mcg tablet 88 mcg PO DAILYBB Qty: 90 albuterol sulfate 90 mcg/actuation HFA aerosol inhaler 2 puffs inhalation QID PRN (Reason: shortness of breath or wheezing) potassium chloride 20 mEq tablet extended release 20 meq PO BID Rx Instructions: TAKE THIS MED WHEN TAKING BUMETANIDE. DO NOT TAKE THIS MED IF NOT TAKING BUMETANIDE. glipizide 10 mg tablet 10 mg PO BID Rx Instructions: TAKE 15-30 MINUTES PRIOR TO A MEAL. tamsulosin 0.4 mg capsule 0.4 mg PO HS losartan 25 mg tablet 25 mg PO QAM finasteride 5 mg tablet 5 mg PO HS Eliquis 5 mg Tablet 5 mg PO BID cephalexin 500 mg capsule 500 mg PO BID Rx Instructions: STARTED 10/07/22 FOR 5 DAYS. empagliflozin 10 mg Tablet 10 mg PO DAILY gabapentin 100 mg Capsule See Rx Instructions .ROUTE .COMPLEX Rx Instructions: 100 mg orally; TAKE 100 MG QAM, THEN 300 MG QPM. pantoprazole 20 mg tablet,delayed release (DR/EC) 20 mg PO BID aspirin 81 mg Tablet,Delayed Release (Dr/Ec) 81 mg PO DAILY bumetanide 2 mg Tablet 2 mg PO BID clonazepam 1 mg tablet 1 mg PO BID acetaminophen [Tylenol Extra Strength] 500 mg Tablet 1,000 mg PO Q6H PRN (Reason: PAIN/FEVER) Rx Instructions: RARELY USES ACCORDING TO . diphenhydramine HCl [Benadryl] 25 mg Capsule 25 mg PO BID PRN (Reason: NEEDED ) fluticasone propion-salmeterol 500-50 mcg/dose Blister With Device 1 inh INHALATION BID metoprolol tartrate 50 mg Tablet 25 mg PO BID multivitamin with minerals Tablet 1 tab PO DAILY rosuvastatin 20 mg Tablet 20 mg PO HS PreserVision AREDS 2,148 mcg-113 mg-45 mg-17.4mg Tablet 1 tab PO DAILY tiotropium bromide 2.5 mcg/actuation Mist 2 puff INHALATION DAILY ciprofloxacin HCl [Cipro] 500 mg tablet 500 mg PO DAILY Qty: 14 0RF Rx Instructions: STARTED 10/05/22 FOR 7 DAYS Referrals Referrals: Cory Nunez DO [Primary Care Provider] -
[2022-10-08 16:35] LABS: Base Excess VBG -3.6 mEq/L; HCO3 VBG 22 mmol/L; Oxygen Saturation VBG 74.1 %; PCO2 VBG 38 mmHg (38-50); PO2 VBG 41 mmHg; pH VBG 7.36 (7.36-7.41)
[2022-10-08 16:37] LABS: Hematocrit (blood only) 38.5 % (42.0-52.0); Hemoglobin 13.8 g/dl (14.0-18.0); Mean Corpuscular Hemoglobin 31.9 pg (25.0-34.0); Mean Corpuscular Hgb Conc 35.8 g/dL (32.0-36.0); Mean Corpuscular Volume 89.1 fL (80.0-100.0); Mean Platelet Volume 9.5 fL (9.4-12.4); Platelet Count 159 K/uL (130-400); RDW Coefficient of Variation 13.5 % (11.5-14.5); RDW Standard Deviation 44.5 fL (36.4-46.3); Red Blood Count 4.32 M/uL (4.70-6.10); White Blood Count 9.23 K/ul (4.8-10.8)
[2022-10-08 16:52] LABS: Calcium 8.1 mg/dl (8.6-10.3); Creatinine Clr Calc Pharmacy 9.6 ml/min; Est GFR (African American) 9.9 ml/min; Est GFR (Non-African American) 8.5 ml/min; Magnesium 2.4 mg/dl (1.7-2.4); Potassium 6.1 mmol/L (3.5-5.1); Troponin I High Sensitivity 21.1 pg/ml (0-20)
[2022-10-08] MEDS ORDERED: CALCIUM GLUCONATE 10% 1,000 MG in DEXTROSE 5% 50 ML IV STA (16:56)
[2022-10-08] MEDS ORDERED: ALBUT/IPRATROP 3MG/0.5MG NEB 3 ML VIAL NEB STA (16:56)
[2022-10-08] MEDS ORDERED: INSULIN HUMAN REGULAR PER UNIT 10 UNITS in SYRINGE 9.9 ML IV STA (16:56)
[2022-10-08] MEDS ORDERED: DEXTROSE 50% 50 ML SYRINGE IV STA (16:56)
[2022-10-08] MEDS ORDERED: STAT IV STA (16:56)
[2022-10-08 17:00] LABS: Basophils # (auto) 0.04 K/uL (0-0.2); Basophils % (auto) 0.4 %; Eosinophils # (auto) 0.08 K/uL (0-0.50); Eosinophils % (auto) 0.9 %; INR 1.1 (0.9-1.1); Immature Granulocytes # (auto) 0.18 K/uL (0.01-0.20); Lymphocytes # (auto) 1.33 K/uL (1.2-3.4); Lymphocytes % (auto) 14.4 %; Monocytes # (auto) 0.77 K/uL (0.11-0.59); Monocytes % (auto) 8.3 %; Neutrophils # (auto) 6.83 K/uL (1.40-6.50); Partial Thromboplastin Ratio 1.1; Partial Thromboplastin Time 31.4 Seconds (21.0-31.0); Prothrombin Time 11.6 Seconds (9.0-12.0)
[2022-10-08 17:06] LABS: Appearance Urine Turbid (Clear); Bacteria Urine Automated Negative (Negative); Bilirubin Urine Negative (Negative); Blood Urine 3+ (Negative); Color Urine Yellow; Epithelial Cell Urine Auto >30 /lpf (0-5); Glucose Urine UA 1+ (Negative); Ketones Urine Negative (Negative); Leukocyte Esterase Urine Trace (Negative); Nitrite Urine Negative (Negative); Protein Urine 4+ (Negative); RBC Urine Automated 0-4 /hpf (0-4); Specific Gravity Urine 1.035 (1.000-1.030); Urobilinogen Urine Negative (Negative); WBC Urine Automated >30 /hpf (0-5)
[2022-10-08 17:13] LABS: Influenza A virus by PCR Negative (Neg); Influenza B virus by PCR Negative (Neg); RSV by PCR Negative (Neg); SARS CoV2 RNA(COVID-19) Ceph NEGATIVE (Negative)
--- NOTE | 2022-10-08 17:17 | XRay Report ---
XR chest 1V portable CLINICAL HISTORY: sob TECHNIQUE: Single frontal radiograph of the chest was obtained. Comparison: Comparison is made to chest radiograph 09/26/2022 FINDINGS: Median sternotomy wires are unchanged. Fractured superior wire is again seen. Calcified aortic knob i s seen. The lungs are clear. No evidence of pleural effusion or pneumothorax. IMPRESSION: No acute abnormalities and in particular no radiographic evidence of pneumonia. ACT 112: Negative or not required by law. Electronically signed by: Dano West M.D. 10/08/2022 5:15 PM
[2022-10-08 17:21] LABS: Amorphous Sediment Urine Present (None Prsent); Cast Urine Automated 0 /lpf (0-5)
--- NOTE | 2022-10-08 18:19 | CT Scan Report ---
CT abd pelvis wo con CLINICAL HISTORY: sunshine difficulty urinating TECHNIQUE: Helical axial images of the abdomen and pelvis were obtained. Automated dose lowering tech niques and/or adjustment according to patient size were utilized for this exam. This exam was perfor med without intravenous contrast. CT DOSE: 1039.30 mGy.cm COMPARISON: Comparison is made to CT abdomen pelvis 10/05/2021 FINDINGS: Lower chest: Bibasilar atelectasis versus scarring is seen. Liver: Unremarkable. No focal lesions are seen. Gallbladder and biliary tree: Patient is status post cholecystectomy. No intra- or extrahepatic bilia ry ductal dilation. Pancreas: Unremarkable, no focal lesions. Spleen: Unremarkable. Adrenals: Unremarkable. Kidneys and ureters: Perinephric stranding is noted bilaterally. Left lower pole cyst is seen. No hyd ronephrosis is seen. Bladder: Diffuse homogeneous wall thickening is seen. Reproductive organs: Patient appears be status post prostatectomy. Bowel: Unremarkable. Lymph nodes Retroperitoneal: Unremarkable. Pelvic: Unremarkable. Mesenteric: Unremarkable. Peritoneum: Normal. Vessels: Atherosclerotic calcifications are seen. Abdominal wall: Right fat-containing inguinal hernia. Bones: Degenerative changes in the visualized spine. Posterior fixation hardware is seen in the lumba r sacral spine. IMPRESSION: No acute abnormality and in particular no evidence of hydronephrosis. Chronic appearing bladder wall thickening is likely due to chronic outlet obstruction, although superimposed cystitis cannot be enti rely excluded. ACT 112: Negative or not required by law. Electronically signed by: Dano West M.D. 10/08/2022 6:17 PM
--- NOTE | 2022-10-08 19:28 | History & Physical Report ---
Date of Service October 08, 2022 Assessment & Plan (1) Fluid overload: Plan: 86yo Male with PMH CHF EF 60-65%, DM2, asthma, COPD, Hx. VT, DVT, hypothyroidism, CKD, HTN, HLD, chronic leg wound, GERD here for increased swelling in face, extremities, abd found to have JUDI on CKD. JUDI on CKD -concern 2/2 BPH prostatitis recent ciprofloxacin use (dosed renally 500mg daily) -Creat 6.19 (baseline 2) -started on NSS 60mls/hr -urology consulted, so far unable to place jeronimo -I/O's, bladder scan as needed -patient does not want dialysis -nephrology consulted -trend bmp Hyperkalemia -potassium 6.1 -received calcium gluconate insulin 10U dextrose in ED -repeat labs in 6 hours K 6.1, calcium 8.1 -ordered additional calcium gluconate insulin 10U dextrose and lokelma 5mg -recheck on am labs Prostatitis -stop cipro given renal function -urine culture 10/05 grew proteus vulgaris resistance to ceftriaxone -will order unasyn renally dosed 1.5g q24h Wheeze -continue home inhalers -ordered albuterol q6hr nebulizer HTN, Hx. VT -continue metoprolol, aspirin -hold bumex, losartan given JUDI DM2 -SSI ordered BPH -continue tamsulosin, increased to 0.8mg -continue finasteride HLD -continue rosuvastatin GERD -continue protonix Anxiety -continue clonapin, gabapentin Hypothyroidism -continue levothyroxine FENa: heart healthy DM2 fluid restriction 1.5L Code Status: Full code is POA DVT PPX: eliquis renally dosed Dispo: med/tele Andria Hong D.O. PGY 2, FCM (2) Acute kidney injury superimposed on CKD: (3) DVT (deep venous thrombosis): (4) Prostatitis: (5) Acute hyperkalemia: (6) Abdominal distension: (7) Benign prostatic hyperplasia with urinary obstruction: (8) Hypothyroidism: (9) Hypertension: (10) Dyslipidemia: (11) CHF (congestive heart failure): (12) GERD (gastroesophageal reflux disease): (13) Diabetes: History of Present Illness Chief Complaint: Increased swelling Primary Care Provider: Cory Nunez DO 86yo Male with PMH CHF EF 60-65%, DM2, asthma, COPD, Hx. VT, DVT, hypothyroidism, CKD, HTN, HLD, chronic leg wound, GERD here for increased swelling in face, extremities, abd found to have JUDI on CKD. Patient is a poor historian, majority of history given by . Patient had cellulitis of lower extremities 1.5 wks ago, was started on abx. This past Monday he was peeing bright red blood was seen in ED noted UTI prostitis started on abx with caution given his kidney function. Yesterday they noted worsening of his leg wound. This morning noted increased swelling in all extremities face and abd, took him to ED. At this time patient denies nausea fever, has some SOB due to congestion, continues to have swelling in abd and extremities Per patient had increased congestion hoarse voice ongoing 1 week, has been using mucinex tylenol to help with symptoms. notes that patient has difficulty peeing. He has been drinking a lot, however has not drank as much today. He has a low salt diet at home. manages all medication, is POA Allergies Allergy/AdvReac Type Severity Reaction Status Date / Time semaglutide [From Ozempic] AdvReac Severe NAUSEA/VOMI Verified 10/08/22 17:29 TING/ANOREX IA amlodipine AdvReac Intermediate SWELLING Verified 10/08/22 17:29 OF ANKLES ropinirole AdvReac Intermediate CHANGE IN Verified 10/08/22 17:29 MENTAL STATUS Home Medications Medication Instructions Recorded Confirmed Type albuterol sulfate 90 mcg/actuation 2 puffs inhalation QID PRN 01/10/19 10/08/22 History aerosol inhaler shortness of breath or wheezing levothyroxine 88 mcg tablet 88 mcg PO DAILYBB #90 tabs 01/10/19 10/08/22 History potassium chloride 20 mEq 20 meq PO BID 01/10/19 10/08/22 History tablet,extended release finasteride 5 mg tablet 5 mg PO HS 04/23/19 10/08/22 History losartan 25 mg tablet 25 mg PO QAM 04/23/19 10/08/22 History tamsulosin 0.4 mg capsule 0.4 mg PO HS 04/23/19 10/08/22 History gabapentin 100 mg capsule See Rx Instructions .Route .COMPLEX 12/16/20 10/08/22 History aspirin 81 mg tablet,delayed 81 mg PO DAILY 10/11/21 10/08/22 History release pantoprazole 20 mg tablet,delayed 20 mg PO BID 02/07/22 10/08/22 History release glipizide 10 mg tablet 10 mg PO BID 03/29/22 10/08/22 History insulin glargine 100 unit/mL (3 See Rx Instructions .Route .COMPLEX 04/12/22 10/08/22 History mL) subcutaneous pen (Lantus Solostar U-100 Insulin) acetaminophen 500 mg tablet 1,000 mg PO Q6H PRN PAIN/FEVER 05/28/22 10/08/22 History (Tylenol Extra Strength) bumetanide 2 mg tablet 2 mg PO BID 05/28/22 10/08/22 History clonazepam 1 mg tablet 1 mg PO BID 05/28/22 10/08/22 History diphenhydramine HCl 25 mg capsule 25 mg PO BID PRN NEEDED 05/28/22 10/08/22 History (Benadryl) fluticasone 500 mcg-salmeterol 50 1 inh inhalation BID 05/28/22 10/08/22 History mcg/dose blistr powdr for inhalation metoprolol tartrate 50 mg tablet 25 mg PO BID 05/28/22 10/08/22 History multivitamin with minerals 1 tab PO DAILY 05/28/22 10/08/22 History rosuvastatin 20 mg tablet 20 mg PO HS 05/28/22 10/08/22 History tiotropium bromide 2.5 2 puff inhalation DAILY 05/28/22 10/08/22 History mcg/actuation mist for inhalation vitamins A,C,J-wcvm-pdlsdy 2,148 1 tab PO DAILY 05/28/22 10/08/22 History mcg-113 mg-45 mg-17.4 mg tablet (PreserVision AREDS) apixaban 5 mg tablet (Eliquis) 5 mg PO BID 09/26/22 10/08/22 History ciprofloxacin HCl 500 mg tablet 500 mg PO DAILY #14 tabs 10/05/22 10/08/22 Rx (Cipro) cephalexin 500 mg capsule 500 mg PO BID 10/08/22 10/08/22 History empagliflozin 10 mg tablet 10 mg PO DAILY 10/08/22 10/08/22 History Past Med/Surg History Medical History Acute bronchopneumonia Acute urinary retention Vpmpr-hk-[id number] kidney injury AMS (altered mental status) Anxiety Aortic stenosis Mild per 03/06/19 stress ECHO Asthma Uses rescue inhaler a couple times per week Atrial fibrillation Follows with Dr. Maile Soares Blindness of left eye BPH (benign prostatic hyperplasia) CAD (coronary artery disease) Angioplasty ~1993, CABG x 3 2013 (GALINDO to LAD, SVG to PDA, SVG to OM) CHF (congestive heart failure) Chronic kidney disease Follows with Dr. Dixon Chronic obstructive pulmonary disease Diabetes Type 2 IDDM Foot ulcer GERD (gastroesophageal reflux disease) Herpes zoster Hiatal hernia Hyperlipidemia Hypertension Hypervolemia Hypothyroidism Leukocytosis Macular degeneration Myocardial infarct ~1993 Peripheral neuropathy Rupture of left distal biceps tendon hx - no surgery Secondary hyperparathyroidism (of renal origin) SIRS (systemic inflammatory response syndrome) Surgical History Fusion of spine lumbar History of appendectomy History of cardiac cath with angioplasty ~1993 ([facility]) & 2013 ([facility]) History of cataract surgery bilateral History of coronary artery bypass graft x3 vessels ([facility] 2013) with epicardial RFA of pulmonary veins and left atrial appendage ligation History of revision of total replacement of right knee joint History of tonsillectomy History of tooth extraction History of total left knee replacement History of total right knee replacement Hx of colonoscopy Previous back surgery (08/26/12) S/P cholecystectomy Family History Brother Heart disease Diabetes Sister Cancer Mother Diabetes Father Diabetes Other Hypertension Kidney disease Social History Smoking Status: Former smoker Tobacco Type: Cigarettes Second Hand Exposure: No; Do You Dip or Chew Tobacco: No; Hx Alcohol Use: No Hx Substance Use: No Preferred Language: Maori Communication Ability: Effective Visual Impairment: Partially Limited [employer] Consultant Required: No Beliefs That Will Affect Care: Hindu Hindu Beliefs: Pt. states he would not want any machines to keep him alive including dialysis. marital status: Current Living Situation: Spouse Current Living Situation Comment: lives at home with current occupational status: retired Other Information That Helps Us Care for You: No Feels Safe at Home: Yes Safety Concerns: Feels Safe At This Time Assistive Devices: Cane, Denture - Upper, Denture - Lower, Glasses, Walker and Wheelchair Physical Exam 2 Constitutional: well developed, well nourished, cooperative and comfortable Eyes: PERRL, conjunctivae normal, anicteric sclerae ENMT: external ear and nose normal, oropharynx normal Neck: trachea midline, no thyromegaly Respiratory: normal respiratory effort Auscultation: + wheezes (diffuse) Cardiovascular: Rate/Rhythm: regular rate and regular rhythm Extremities: + edema (b/l pitting +2 up to kneese) Gastrointestinal (Abdomen): Inspection/Auscultation: + abdomen distended Percussion/Palpation: abdomen soft; abdomen nontender Skin: bandaging noted on LLE Results & Data Results & Data Vital Signs (Past 12 Hours) Vital Signs Temp Pulse Pulse Resp BP BP Pulse Ox 10/08/22 18:06 72 14 175/119 H 100 10/08/22 16:05 63 10/08/22 16:02 65 24 184/81 H 95 10/08/22 15:52 36.8 C 63 18 124/64 94 O2 Del Method 10/08/22 18:06 Room Air 10/08/22 16:05 10/08/22 16:02 Room Air 10/08/22 15:52 Room Air Supervising Physician Co-Signing Physician Notes Attending addendum: I have physically seen this patient, have supervised the medical residents activities, and agree with the H&P unless as otherwise noted. Assessment and Plan: Acute renal failure- Creatinine 5.57, with base 2.34 CT suggesting bladder outlet obstruction Likely in combination with prerenal state Associated hyperkalemia and hyponatremia Hydrate with IV fluids normal saline at 60 mils per hour, will likely need Jeronimo catheter, discussed with urology Consult nephrology Hyperkalemia- Potassium 6.1 Received calcium gluconate 1 g IV, regular insulin 10 units IV following 1 amp of D50 Give Lokelma 5 mg orally now Follow serial potassiums, and repeat treatment as needed Potassium should improve as kidney function improves Hyponatremia- Sodium 125 on admission Secondary to hyperglycemia and acute kidney injury Follow serially as treating above Prostatitis/BPH Stopping Cipro as noted Unasyn 1.5 g IV renal dosing Increasing tamsulosin from 0.4 to 0.8 mg at bedtime Hypertension/CAD/history VT- Continue metoprolol and aspirin Holding Bumex and losartan due to acute renal failure Continue other medications and notations as noted Resident Activity Tracking Resident Involvement: Resident Care Provided Care Provided: Adult Hospital Medicine (4) Prostatitis Prostatitis type: acute Qualified Code(s): N41.0 - Acute prostatitis (8) Hypothyroidism Hypothyroidism type: unspecified Qualified Code(s): E03.9 - Hypothyroidism, unspecified (9) Hypertension Hypertension type: essential hypertension Qualified Code(s): I10 - Essential (primary) hypertension (11) CHF (congestive heart failure) Heart failure chronicity: unspecified Heart failure type: unspecified Qualified Code(s): I50.9 - Heart failure, unspecified (12) GERD (gastroesophageal reflux disease) Esophagitis presence: esophagitis presence not specified Qualified Code(s): K21.9 - Gastro-esophageal reflux disease without esophagitis (13) Diabetes Diabetes mellitus complication status: with hyperglycemia Diabetes mellitus [facility] insulin use: with [facility] term [facility] use Diabetes mellitus type: type 2 Qualified Code(s): E11.65 - Type 2 diabetes mellitus with hyperglycemia; Z79.4 - skilled nursing (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
[2022-10-08] MEDS ORDERED: GLUCOSE 40% GEL 15 GM TUBE PO PRN (20:17)
[2022-10-08] MEDS ORDERED: DEXTROSE 50% 50 ML SYRINGE IV PRN (20:17)
[2022-10-08] MEDS ORDERED: GLUCAGON FOR INJ 1 MG VIAL SQ PRN (20:17)
[2022-10-08] MEDS ORDERED: GLUCOSE 10 TAB/TUBE PO PRN (20:17)
[2022-10-08] MEDS ORDERED: CARBOHYDRATES FOR HYPOGLYCEMIA PO PRN (20:17)
[2022-10-08 20:39] LABS: Phosphorus 6.3 mg/dl (2.5-4.9)
[2022-10-08] MEDS ORDERED: LIDOCAINE 2% JELLY 5 ML TUBE EXT ONE ×2 (20:45→20:46)
[2022-10-08 20:46] LABS: Troponin I High Sensitivity 19.8 pg/ml (0-20)
[2022-10-08] MEDS ORDERED: TAMSULOSIN HCL 0.4 MG CAP PO SCH (21:00)
[2022-10-08] MEDS ORDERED: ROSUVASTATIN CALCIUM 20 MG TAB PO SCH (21:00)
[2022-10-08] MEDS: INSULIN ASPART PER UNIT CHARGE SC SCH (21:41)
[2022-10-08] MEDS ORDERED: SODIUM CHLORIDE 0.9% 1000ML 1,000 ML IV SCH (22:15)
[2022-10-08] MEDS: FINASTERIDE 5 MG TAB PO SCH (23:32)
[2022-10-08] MEDS: APIXABAN 2.5 MG TAB PO SCH (23:32)
[2022-10-08] MEDS: clonazePAM 1 MG TAB PO SCH (23:32)
[2022-10-08] MEDS: LANTUS PER UNIT CHARGE SQ SCH (23:32)
[2022-10-08] MEDS: GABAPENTIN 100 MG CAP PO SCH (23:33)
[2022-10-08] MEDS: TAMSULOSIN HCL 0.4 MG CAP PO SCH (23:33)
[2022-10-08 23:48] LABS: Albumin Level 2.7 gm/dl (3.4-5.0); Bilirubin,Total 0.3 mg/dl (0.2-1.0)
[2022-10-08 23:54] LABS: Total Protein 5.8 gm/dl (6.0-8.3)
[2022-10-08 23:58] LABS: BUN Creatinine Ratio 13.2 (10-20); Calcium 8.1 mg/dl (8.6-10.3); Creatinine Clr Calc Pharmacy 9.7 ml/min; Est GFR (African American) 8.7 ml/min; Est GFR (Non-African American) 7.5 ml/min; Potassium 6.1 mmol/L (3.5-5.1)
[2022-10-09] MEDS ORDERED: STAT IV STA ×2 (00:25→13:32)
[2022-10-09] MEDS ORDERED: DEXTROSE 50% 50 ML SYRINGE IV STA ×3 (00:25→13:39)
[2022-10-09] MEDS ORDERED: SODIUM ZIRCONIUM CYCLOSILICATE 10 GM PACKET PO ONE (00:28)
[2022-10-09] MEDS ORDERED: CALCIUM GLUCONATE 10% 1,000 MG in DEXTROSE 5% 50 ML IV STA (00:40)
[2022-10-09] MEDS ORDERED: INSULIN HUMAN REGULAR PER UNIT 10 UNITS in SYRINGE 9.9 ML IV STA ×3 (00:40→13:38)
[2022-10-09] MEDS: AMPICILLIN/SULBACTAM SOD 1,500 MG in 0.9 % SODIUM CHLORIDE 100 ML IV SCH (01:27)
[2022-10-09] MEDS: LEVOTHYROXINE SODIUM 88 MCG TABLET PO SCH (06:01)
[2022-10-09 06:32] LABS: Hematocrit (blood only) 34.2 % (42.0-52.0); Hemoglobin 12.2 g/dl (14.0-18.0); Mean Corpuscular Hgb Conc 35.7 g/dL (32.0-36.0); Mean Corpuscular Volume 89.8 fL (80.0-100.0); Mean Platelet Volume 9.5 fL (9.4-12.4); Platelet Count 140 K/uL (130-400); RDW Coefficient of Variation 13.9 % (11.5-14.5); RDW Standard Deviation 45.2 fL (36.4-46.3); Red Blood Count 3.81 M/uL (4.70-6.10); White Blood Count 8.13 K/ul (4.8-10.8)
--- NOTE | 2022-10-09 06:43 | Hospitalist Progress Note ---
Date of Service October 09, 2022 Assessment & Plan (1) Fluid overload: Plan: 86yo Male with PMH CHF EF 60-65%, DM2, asthma, COPD, Hx. OH, DVT, hypothyroidism, CKD, HTN, HLD, chronic leg wound, GERD here for increased swelling in face, extremities, abd found to have JUDI on CKD. JUDI on CKD: -concern 2/2 BPH prostatitis recent ciprofloxacin use (dosed renally 500mg daily) -Creat 6.19 on admission (baseline 2) -Hyponatremic, hyperkalemic. Fractional excretion of sodium 0.9% -CT A&P showed no evidence of hydronephrosis. Chronic appearing bladder wall thickening is likely due to chronic outlet obstruction -Urology consulted -bedside cystoscopy found bulbar urethral stricture, false passage catheter, catheter replaced w/ 200ml urine output. -Hematuria likely from false passage catheter. Allow for catheter for at l east 1 week, can follow up w/ urology outpatient for voiding trial. -Worsening kidney function may be due to partially obstructive cause as above as well as prostatitis, intrinsic renal from cipro nephrotoxicity, or combo. However fractional excretion would hint at pre-renal etiology. -Nephrology consulted: -Possible ATN in setting of recent infection vs AIN from recent antibiotic use. -Will treat suspected AIN w/ methylpred 1gm daily x3 doses. Adjusted medications for JUDI. -Strict I&Os -patient does not want dialysis, understands the risks. -trend BMP. Hyperkalemia: -potassium 6.1 on admission, has steadily risen since to 6.7 -received calcium gluconate insulin 10U dextrose in ED. Received one dose of 5mg Lokelma on admission -repeat labs in 6 hours K 6.1, calcium 8.1 -Patient given multiple doses of insulin 10U w/ D5, an additional dose of calcium gluconate today, as well as started on Patiromer 8.4gm daily. -Initial EKG on admission without significant T-wave changes. Ordered repeat EKG. -Bumex 2mg IV ordered by nephrology. -recheck on am labs Prostatitis: -stop cipro given renal function -urine culture 10/05 grew proteus vulgaris resistance to ceftriaxone -Ordered unasyn renally dosed 1.5g q24h Wheeze: -continue home inhalers -ordered albuterol q6hr nebulizer HTN, Hx. OH: -continue metoprolol, aspirin -hold bumex, losartan given JUDI DM2: -SSI ordered BPH: -continue tamsulosin, increased to 0.8mg -continue finasteride HLD: -continue rosuvastatin GERD: -continue protonix Anxiety: -continue clonapin, gabapentin Hypothyroidism -continue levothyroxine FENa: heart healthy DM2 fluid restriction 1.5L Code Status: Full code is POA DVT PPX: Eliquis renally dosed Dispo: med/tele (2) Acute kidney injury superimposed on CKD: (3) DVT (deep venous thrombosis): (4) Prostatitis: (5) Acute hyperkalemia: (6) Abdominal distension: (7) Benign prostatic hyperplasia with urinary obstruction: (8) Hypothyroidism: (9) Hypertension: (10) Dyslipidemia: (11) CHF (congestive heart failure): (12) GERD (gastroesophageal reflux disease): (13) Diabetes: Admission and Anticipated Discharge Date Admission Date: October 08, 2022 Supervising Physician Co-Signing Physician Notes I personally examined the patient and verified all aguayo points of history and exam, discussed case, and agree with decision making with Dr Cross a bit delirious. updated pt/family to the best of my ability and to their satisfaction. d/w dr mancia as well. BMP ordered and reviewed, other labs reviewed. vitals noted fatigued breathing unlabored no accessory muscles no focal neuro deficits ARF (ATN vs AIN vs both) (possibly also a small, but now alleviated, obstructive component) - stopped cipro, now on unasyn for prostatitis, continue aggressive K management (lokelma given - cntinue w patiromer, was given IVF - nephro now giving bumex; ongoing insulin/glucose as needed, serial BMP) otherwise as above Subjective Patient seen at the bedside this morning saying he feels a little better than when he came in. He currently denies any fevers, chills, chest pain, shortness of breath. He states that he would not want dialysis at all and understands the risks associated with not getting dialysis if emergently indicated. Review of Systems Review of Systems: As per HPI. Physical Exam Constitutional: WD/WN, vitals as above Eyes: PERRL, conjunctivae normal, anicteric sclerae Respiratory: normal respiratory effort, lungs clear to auscultation Cardiovascular: Rate/Rhythm: regular rate and regular rhythm Heart Sounds: normal S1 and normal S2 Peripheral 2+ pitting edema up to the mid thigh bilaterally. Gastrointestinal (Abdomen): normal bowel sounds, soft, nontender, no hepatosplenomegaly Psychiatric: A+Ox3, euthymic affect Results & Data Results & Data Vital Signs (Past 12 Hours) Vital Signs Temp Pulse Pulse Resp BP BP BP 10/09/22 04:00 36.6 C 68 18 153/69 H 10/09/22 01:33 70 10/08/22 22:15 10/08/22 22:15 36.8 C 73 18 165/72 H 10/08/22 22:10 36.8 C 73 18 196/80 H 10/08/22 21:30 67 24 164/59 H 10/08/22 20:00 67 10/08/22 20:00 67 22 133/71 10/08/22 20:08 Pulse Ox O2 Del Method 10/09/22 04:00 95 Room Air 10/09/22 01:33 10/08/22 22:15 Room Air 10/08/22 22:15 97 Room Air 10/08/22 22:10 97 Room Air 10/08/22 21:30 94 Room Air 10/08/22 20:00 10/08/22 20:00 95 Room Air 10/08/22 20:08 94 Room Air Resident Activity Tracking Resident Involvement: Resident Care Provided Care Provided: Adult Hospital Medicine (4) Prostatitis Prostatitis type: acute Qualified Code(s): N41.0 - Acute prostatitis (8) Hypothyroidism Hypothyroidism type: unspecified Qualified Code(s): E03.9 - Hypothyroidism, unspecified (9) Hypertension Hypertension type: essential hypertension Qualified Code(s): I10 - Essential (primary) hypertension (11) CHF (congestive heart failure) Heart failure chronicity: unspecified Heart failure type: unspecified Qualified Code(s): I50.9 - Heart failure, unspecified (12) GERD (gastroesophageal reflux disease) Esophagitis presence: esophagitis presence not specified Qualified Code(s): K21.9 - Gastro-esophageal reflux disease without esophagitis (13) Diabetes Diabetes mellitus complication status: with hyperglycemia Diabetes mellitus [facility] insulin use: with [facility] use Diabetes mellitus type: type 2 Qualified Code(s): E11.65 - Type 2 diabetes mellitus with hyperglycemia; Z79.4 - jail (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
[2022-10-09 07:01] LABS: Albumin Globulin Ratio 0.8 (0.9-2); Albumin Level 2.2 gm/dl (3.4-5.0); BUN Creatinine Ratio 12.9 (10-20); Bilirubin,Total 0.3 mg/dl (0.2-1.0); Calcium 7.9 mg/dl (8.6-10.3); Creatinine Clr Calc Pharmacy 9.3 ml/min; Est GFR (African American) 8.3 ml/min; Est GFR (Non-African American) 7.1 ml/min; Globulin 2.8 gm/dl (2.5-4.0); Magnesium 2.3 mg/dl (1.7-2.4); Phosphorus 6.3 mg/dl (2.5-4.9); Potassium 6.4 mmol/L (3.5-5.1)
[2022-10-09] MEDS: ALBUTEROL 0.083% NEBU SOLN 3 ML VIAL NEB SCH ×4 (07:01→19:10)
[2022-10-09] MEDS: INSULIN ASPART PER UNIT CHARGE SC SCH ×4 (08:25→20:58)
[2022-10-09] MEDS: ASPIRIN 81 MG ECTAB PO SCH (08:26)
[2022-10-09] MEDS: GABAPENTIN 100 MG CAP PO SCH (08:26)
[2022-10-09] MEDS: CEROVITE ADV FORMULA TAB PO SCH (08:26)
[2022-10-09] MEDS: PANTOprazole 40 MG TAB PO SCH ×2 (08:26→21:01)
[2022-10-09] MEDS: APIXABAN 2.5 MG TAB PO SCH ×2 (08:26→21:01)
[2022-10-09] MEDS: METOPROLOL TARTRATE 25 MG TAB PO SCH ×2 (08:26→21:03)
[2022-10-09] MEDS: FLUTICASONE/VILANTEROL 200/25MCG 14 PUFFS/INHALER INH SCH (08:27)
[2022-10-09] MEDS: UMECLIDINIUM BROMIDE 62.5MCG/BLISTER 7 PUFFS/INHALER INH SCH (08:27)
[2022-10-09] MEDS: LANTUS PER UNIT CHARGE SQ SCH ×2 (08:30→20:59)
[2022-10-09] MEDS: clonazePAM 1 MG TAB PO SCH ×2 (08:36→21:01)
--- NOTE | 2022-10-09 10:32 | Nephrology Consultation ---
Date of Consultation October 09, 2022 Assessment & Plan (1) Acute kidney injury superimposed on CKD: Baseline creatinine 2.0 mg/dL. Advanced kidney dysfunction with borderline oliguric. Prognosis guarded. Severity of illness was discussed in detail with Aj and his . They expressed understanding. Dialysis will not be considered part of treatment plan based on patient wishes. Aj is hypervolemic with reduced urine output and hyperkalemic. Stop NSS. Provide Bumex 2 mg IV now. Continue regular use of Patiromer. CT does not demonstrate notable obstruction but Lopez to gravity should be maintained. UA notable for protein, glucose, and blood. Microscopy with WBCs but no RBCs. CK not elevated. DDx includes ATN in the setting of recent infections vs. AIN (potentially associated with ciprofloxacin or cephalexin). Cannot exclude potential anticoagulant-related nephropathy from Eliquis. For suspected AIN and given severity of kidney dysfunction, methylprednisolone 1000 mg IV will be provided now and as tolerated continued daily x 3 doses. Low potassium diet. Document I/O's. Repeat metabolic profile this afternoon. Reduce rosuvastatin to 10 mg daily. Limit Eliquis to 2.5 mg BID. Gabapentin reduced from 400 mg daily to 100 mg daily. Losartan held. Hold oral KCl supplement. (2) Acute hyperkalemia: Patiromer 8.4 grams provided at 11:30 this morning. Repeat this evening. Low potassium diet. Bumex 2 mg IV now to encourage urine output. Repeat metabolic profile this afternoon. (3) Urethral stricture: Followed by Dr. Gunter as an outpatient. Maintain Lopez to gravity. Appreciate urology consultation. CT reviewed. No obvious obstructive nephropathy. (4) Prostatitis: Prior vulture +proteus vulgaris. Remains on Unasyn. Avoid cephalosporins and fluoroquinolones for now. Repeat culture pending. (5) Goals of care, counseling/discussion: DNR/DNI. Dialysis will not be considered part of the care plan based on patient wishes. History of Present Illness Reason for Consultation: JUDI Requesting Physician: Andria Hong DO Attending Physician: Alexandru Harrell DO History of Present Illness Mr. Aj Monroy is an 86 year-old male with chronic kidney disease admitted to [facility] with advanced acute kidney dysfunction. Aj was seen and evaluated this afternoon with his (Sveta) at the bedside. The patient is very lethargic. He wakes to questions but drifts quickly back to sleep. When awake, Aj generally answers questions appropriately. He is oriented to person and place. He was able to tell me that his kidneys are not working. Aj did express that he does not want dialysis. The patient and his understand that progressive kidney dysfunction can be fatal. Aj stated that he does not want any form of life support, specifically noting use of a ventilator or hemodialysis machine. Sveta confirmed with him that CPR and defibrillation would not be consistent with goals of care. They expressed desire to change code status to DNR/DNI. Aj has seen Dr. Dixon in the nephrology clinic in the past for CKD. Baseline creatinine has been ~2.0-2.3 mg/dL. He last saw Dr. Dixon in 2019 but opted not to follow up. He had established during prior clinic visits that he would not pursue dialysis in the future if needed. CKD based on prior assessment attributed to microvascular disease. Medical history is notable for coronary artery disease and history of CABG, PAF, history of RFA of the pulmonary vein, and L atrial appendage ligation, hypertension, hyperlipidemia, GERD, lower extremity wounds, venous insufficiency, recent LE cellulitis, and history of kidney stones and bladder outlet obstruction. Medical history was obtained primarily through Sveta and by review of the medical record and speaking to other providers. Aj presented to [facility] ER yesterday with fluid retention and mental status changes. Recent medical history included progressive lower extremity edema and diagnosis with DVT for which treatment with Eliquis was started. Aj was then diagnosed with soft tissue infection of the lower extremity for which he completed a course of cephalexin several days ago. [facility]ag[facility] However, Aj had stopped the medication ~1 week ago, because he did not feel there was significant benefit. He recently presented for evaluation of gross hematuria attributed to suspected cystitis/prostatitis. Urine culture was positive for proteus vulgaris. At the time of this evaluation (October 05), creatinine was 2.3 mg/dL. Aj was started on a course of ciprofloxacin. After a few days of the antibiotic, he presented to the hospital with notable progressive fluid retention in his upper and lower extremitities. Allergies Allergy/AdvReac Type Severity Reaction Status Date / Time semaglutide [From Ozempic] AdvReac Severe NAUSEA/VOMI Verified 10/08/22 17:29 TING/ANOREX IA amlodipine AdvReac Intermediate SWELLING Verified 10/08/22 17:29 OF ANKLES ropinirole AdvReac Intermediate CHANGE IN Verified 10/08/22 17:29 MENTAL STATUS Home Medications Medication Instructions Recorded Confirmed Type albuterol sulfate 90 mcg/actuation 2 puffs inhalation QID PRN 01/10/19 10/08/22 History aerosol inhaler shortness of breath or wheezing levothyroxine 88 mcg tablet 88 mcg PO DAILYBB #90 tabs 01/10/19 10/08/22 History potassium chloride 20 mEq 20 meq PO BID 01/10/19 10/08/22 History tablet,extended release finasteride 5 mg tablet 5 mg PO HS 04/23/19 10/08/22 History losartan 25 mg tablet 25 mg PO QAM 04/23/19 10/08/22 History tamsulosin 0.4 mg capsule 0.4 mg PO HS 04/23/19 10/08/22 History gabapentin 100 mg capsule See Rx Instructions .Route .COMPLEX 12/16/20 10/08/22 History aspirin 81 mg tablet,delayed 81 mg PO DAILY 10/11/21 10/08/22 History release pantoprazole 20 mg tablet,delayed 20 mg PO BID 02/07/22 10/08/22 History release glipizide 10 mg tablet 10 mg PO BID 03/29/22 10/08/22 History insulin glargine 100 unit/mL (3 See Rx Instructions .Route .COMPLEX 04/12/22 10/08/22 History mL) subcutaneous pen (Lantus Solostar U-100 Insulin) acetaminophen 500 mg tablet 1,000 mg PO Q6H PRN PAIN/FEVER 05/28/22 10/08/22 History (Tylenol Extra Strength) bumetanide 2 mg tablet 2 mg PO BID 05/28/22 10/08/22 History clonazepam 1 mg tablet 1 mg PO BID 05/28/22 10/08/22 History diphenhydramine HCl 25 mg capsule 25 mg PO BID PRN NEEDED 05/28/22 10/08/22 History (Benadryl) fluticasone 500 mcg-salmeterol 50 1 inh inhalation BID 05/28/22 10/08/22 History mcg/dose blistr powdr for inhalation metoprolol tartrate 50 mg tablet 25 mg PO BID 05/28/22 10/08/22 History multivitamin with minerals 1 tab PO DAILY 05/28/22 10/08/22 History rosuvastatin 20 mg tablet 20 mg PO HS 05/28/22 10/08/22 History tiotropium bromide 2.5 2 puff inhalation DAILY 05/28/22 10/08/22 History mcg/actuation mist for inhalation vitamins A,C,U-etkt-ygoelt 2,148 1 tab PO DAILY 05/28/22 10/08/22 History mcg-113 mg-45 mg-17.4 mg tablet (PreserVision AREDS) apixaban 5 mg tablet (Eliquis) 5 mg PO BID 09/26/22 10/08/22 History ciprofloxacin HCl 500 mg tablet 500 mg PO DAILY #14 tabs 10/05/22 10/08/22 Rx (Cipro) cephalexin 500 mg capsule 500 mg PO BID 10/08/22 10/08/22 History empagliflozin 10 mg tablet 10 mg PO DAILY 10/08/22 10/08/22 History Patient History Medical History Acute bronchopneumonia Acute urinary retention Ieaem-iv-gobjstb kidney injury AMS (altered mental status) Anxiety Aortic stenosis Mild per 03/06/19 stress ECHO Asthma Uses rescue inhaler a couple times per week Atrial fibrillation Follows with Dr. Gr Bacteremia Blindness of left eye BPH (benign prostatic hyperplasia) CAD (coronary artery disease) Angioplasty ~1993, CABG x 3 2013 (GALINDO to LAD, SVG to PDA, SVG to OM) CHF (congestive heart failure) Chronic kidney disease Follows with Dr. Dixon Chronic obstructive pulmonary disease Diabetes Type 2 IDDM Foot ulcer GERD (gastroesophageal reflux disease) Herpes zoster Hiatal hernia Hyperlipidemia Hypertension Hypervolemia Hypothyroidism Leukocytosis Macular degeneration Myocardial infarct ~1993 Peripheral neuropathy Rupture of left distal biceps tendon hx - no surgery Secondary hyperparathyroidism (of renal origin) SIRS (systemic inflammatory response syndrome) Surgical History Fusion of spine lumbar History of appendectomy History of cardiac cath with angioplasty ~1993 ([facility]) & 2013 ([facility]) History of cataract surgery bilateral History of coronary artery bypass graft x3 vessels ([facility] 2013) with epicardial RFA of pulmonary veins and left atrial appendage ligation History of revision of total replacement of right knee joint History of tonsillectomy History of tooth extraction History of total left knee replacement History of total right knee replacement Hx of colonoscopy Previous back surgery (08/26/12) S/P cholecystectomy Family History Brother Heart disease Diabetes Sister Cancer Mother Diabetes Father Diabetes Other Hypertension Kidney disease Social History Smoking Status: Former smoker Tobacco Type: Cigarettes Second Hand Exposure: No; Do You Dip or Chew Tobacco: No; Hx Alcohol Use: No Hx Substance Use: No Preferred Language: Surinamese Communication Ability: Effective Visual Impairment: Partially Limited [place] Encaser Required: No Beliefs That Will Affect Care: Zoroastrian Zoroastrian Beliefs: Pt. states he would not want any machines to keep him alive including dialysis. marital status: Current Living Situation: Spouse Current Living Situation Comment: lives at home with current occupational status: retired Other Information That Helps Us Care for You: No Feels Safe at Home: Yes Safety Concerns: Feels Safe At This Time Assistive Devices: Cane, Denture - Upper, Denture - Lower, Glasses, Walker and Wheelchair Results & Data Vital Signs (Past 12 Hours) Vital Signs Temp Pulse Pulse Pulse Resp BP Pulse Ox 10/09/22 07:26 10/09/22 07:20 36.4 C L 72 20 148/67 H 96 10/09/22 07:03 70 18 91 10/09/22 04:00 36.6 C 68 18 153/69 H 95 10/09/22 01:33 70 O2 Del Method 10/09/22 07:26 Room Air 10/09/22 07:20 Room Air 10/09/22 07:03 Room Air 10/09/22 04:00 Room Air 10/09/22 01:33 Laboratory Results Laboratory Results - last 24 hr 10/08/22 10/08/22 10/08/22 16:04 16:04 16:04 WBC 9.23 RBC 4.32 L Hgb 13.8 L Hct 38.5 L MCV 89.1 MCH 31.9 MCHC 35.8 RDW Std Deviation 44.5 RDW Coeff of Adrian 13.5 Plt Count 159 MPV 9.5 Immature Gran % (Auto) 2.0 Neut % (Auto) 74.0 Lymph % (Auto) 14.4 [place] % (Auto) 8.3 Eos % (Auto) 0.9 Baso % (Auto) 0.4 Neut # (Auto) 6.83 H Lymph # (Auto) 1.33 [place] # (Auto) 0.77 H Eos # (Auto) 0.08 Baso # (Auto) 0.04 Immature Gran # (Auto) 0.18 PT 11.6 INR 1.1 APTT 31.4 H PTT Ratio 1.1 VBG pH VBG pCO2 VBG pO2 VBG HCO3 VBG O2 Saturation VBG Base Excess Sodium 125 L Potassium 6.1 H* Chloride 95 L Carbon Dioxide 21 Anion Gap 9 BUN 78 H Creatinine 5.57 H* Est Cr Clr Drug Dosing 9.6 Est GFR ( Amer) 9.9 Est GFR (Non-Af Amer) 8.5 BUN/Creatinine Ratio 14.0 Glucose 292 H POC Glucose Lactate Calcium 8.1 L Phosphorus Magnesium 2.4 Total Bilirubin Direct Bilirubin AST ALT Alkaline Phosphatase Troponin I High Sens 21.1 H B-Natriuretic Peptide Total Protein Albumin Globulin Albumin/Globulin Ratio Urine Color Urine Appearance Urine pH Ur Specific [place] Urine Protein Urine Glucose (UA) Urine Ketones Urine Blood Urine Nitrite Urine Bilirubin Urine Urobilinogen Ur Leukocyte Esterase Urine WBC (Auto) Urine RBC (Auto) U Hyaline Cast (Auto) U Epithel Cells (Auto) Urine Bacteria (Auto) Ur Renal Epithelial Cell Amorphous Sediment Urine Yeast SARS-CoV-2 (PCR) Influenza Type A (PCR) Influenza Type B (PCR) RSV (RT-PCR) 10/08/22 10/08/22 10/08/22 16:04 16:23 16:23 WBC RBC Hgb Hct MCV MCH MCHC RDW Std Deviation RDW Coeff of Adrian Plt Count MPV Immature Gran % (Auto) Neut % (Auto) Lymph % (Auto) [place] % (Auto) Eos % (Auto) Baso % (Auto) Neut # (Auto) Lymph # (Auto) [place] # (Auto) Eos # (Auto) Baso # (Auto) Immature Gran # (Auto) PT INR APTT PTT Ratio VBG pH 7.36 VBG pCO2 38 VBG pO2 41 VBG HCO3 22 VBG O2 Saturation 74.1 VBG Base Excess -3.6 Sodium Potassium Chloride Carbon Dioxide Anion Gap BUN Creatinine Est Cr Clr Drug Dosing Est GFR ( Amer) Est GFR (Non-Af Amer) BUN/Creatinine Ratio Glucose POC Glucose Lactate Calcium Phosphorus Magnesium Total Bilirubin Direct Bilirubin AST ALT Alkaline Phosphatase Troponin I High Sens B-Natriuretic Peptide 434 H Total Protein Albumin Globulin Albumin/Globulin Ratio Urine Color Urine Appearance Urine pH Ur Specific [place] Urine Protein Urine Glucose (UA) Urine Ketones Urine Blood Urine Nitrite Urine Bilirubin Urine Urobilinogen Ur Leukocyte Esterase Urine WBC (Auto) Urine RBC (Auto) U Hyaline Cast (Auto) U Epithel Cells (Auto) Urine Bacteria (Auto) Ur Renal Epithelial Cell Amorphous Sediment Urine Yeast SARS-CoV-2 (PCR) NEGATIVE Influenza Type A (PCR) Negative Influenza Type B (PCR) Negative RSV (RT-PCR) Negative 10/08/22 10/08/22 10/08/22 16:23 16:56 18:48 WBC RBC Hgb Hct MCV MCH MCHC RDW Std Deviation RDW Coeff of Adrian Plt Count MPV Immature Gran % (Auto) Neut % (Auto) Lymph % (Auto) [place] % (Auto) Eos % (Auto) Baso % (Auto) Neut # (Auto) Lymph # (Auto) [place] # (Auto) Eos # (Auto) Baso # (Auto) Immature Gran # (Auto) PT INR APTT PTT Ratio VBG pH VBG pCO2 VBG pO2 VBG HCO3 VBG O2 Saturation VBG Base Excess Sodium Potassium Chloride Carbon Dioxide Anion Gap BUN Creatinine Est Cr Clr Drug Dosing Est GFR ( Amer) Est GFR (Non-Af Amer) BUN/Creatinine Ratio Glucose POC Glucose 225 H Lactate 1.6 Calcium Phosphorus Magnesium Total Bilirubin Direct Bilirubin AST ALT Alkaline Phosphatase Troponin I High Sens B-Natriuretic Peptide Total Protein Albumin Globulin Albumin/Globulin Ratio Urine Color Yellow Urine Appearance Turbid A Urine pH 5.0 Ur Specific [place] 1.035 H Urine Protein 4+ H Urine Glucose (UA) 1+ H Urine Ketones Negative Urine Blood 3+ H Urine Nitrite Negative Urine Bilirubin Negative Urine Urobilinogen Negative Ur Leukocyte Esterase Trace H Urine WBC (Auto) >30 H Urine RBC (Auto) 0-4 U Hyaline Cast (Auto) 0 U Epithel Cells (Auto) >30 H Urine Bacteria (Auto) Negative Ur Renal Epithelial Cell Not Reportable Amorphous Sediment Present A Urine Yeast Not Reportable SARS-CoV-2 (PCR) Influenza Type A (PCR) Influenza Type B (PCR) RSV (RT-PCR) 10/08/22 10/08/22 10/08/22 20:06 21:08 22:34 WBC RBC Hgb Hct MCV MCH MCHC RDW Std Deviation RDW Coeff of Adrian Plt Count MPV Immature Gran % (Auto) Neut % (Auto) Lymph % (Auto) [place] % (Auto) Eos % (Auto) Baso % (Auto) Neut # (Auto) Lymph # (Auto) [place] # (Auto) Eos # (Auto) Baso # (Auto) Immature Gran # (Auto) PT INR APTT PTT Ratio VBG pH VBG pCO2 VBG pO2 VBG HCO3 VBG O2 Saturation VBG Base Excess Sodium 126 L Potassium 6.1 H* Chloride 99 Carbon Dioxide 16 L Anion Gap 11 BUN 82 H Creatinine 6.19 H* D Est Cr Clr Drug Dosing 9.7 Est GFR ( Amer) 8.7 Est GFR (Non-Af Amer) 7.5 BUN/Creatinine Ratio 13.2 Glucose 167 H POC Glucose 180 H Lactate Calcium 8.1 L Phosphorus 6.3 H Magnesium Total Bilirubin Direct Bilirubin AST ALT Alkaline Phosphatase Troponin I High Sens 19.8 B-Natriuretic Peptide Total Protein Albumin Globulin Albumin/Globulin Ratio Urine Color Urine Appearance Urine pH Ur Specific [place] Urine Protein Urine Glucose (UA) Urine Ketones Urine Blood Urine Nitrite Urine Bilirubin Urine Urobilinogen Ur Leukocyte Esterase Urine WBC (Auto) Urine RBC (Auto) U Hyaline Cast (Auto) U Epithel Cells (Auto) Urine Bacteria (Auto) Ur Renal Epithelial Cell Amorphous Sediment Urine Yeast SARS-CoV-2 (PCR) Influenza Type A (PCR) Influenza Type B (PCR) RSV (RT-PCR) 10/08/22 10/09/22 10/09/22 22:34 05:17 05:17 WBC 8.13 RBC 3.81 L Hgb 12.2 L Hct 34.2 L MCV 89.8 MCH 32.0 MCHC 35.7 RDW Std Deviation 45.2 RDW Coeff of Adrian 13.9 Plt Count 140 MPV 9.5 Immature Gran % (Auto) Neut % (Auto) Lymph % (Auto) [place] % (Auto) Eos % (Auto) Baso % (Auto) Neut # (Auto) Lymph # (Auto) [place] # (Auto) Eos # (Auto) Baso # (Auto) Immature Gran # (Auto) PT INR APTT PTT Ratio VBG pH VBG pCO2 VBG pO2 VBG HCO3 VBG O2 Saturation VBG Base Excess Sodium 128 L Potassium 6.4 H* Chloride 99 Carbon Dioxide 23 Anion Gap 6 BUN 83 H Creatinine 6.45 H* Est Cr Clr Drug Dosing 9.3 Est GFR ( Amer) 8.3 Est GFR (Non-Af Amer) 7.1 BUN/Creatinine Ratio 12.9 Glucose 241 H POC Glucose Lactate Calcium 7.9 L Phosphorus 6.3 H Magnesium 2.3 Total Bilirubin 0.3 0.3 Direct Bilirubin 0.0 AST 33 29 ALT 24 22 Alkaline Phosphatase 93 83 Troponin I High Sens B-Natriuretic Peptide Total Protein 5.8 L 5.0 L Albumin 2.7 L 2.2 L Globulin 2.8 Albumin/Globulin Ratio 0.8 L Urine Color Urine Appearance Urine pH Ur Specific [place] Urine Protein Urine Glucose (UA) Urine Ketones Urine Blood Urine Nitrite Urine Bilirubin Urine Urobilinogen Ur Leukocyte Esterase Urine WBC (Auto) Urine RBC (Auto) U Hyaline Cast (Auto) U Epithel Cells (Auto) Urine Bacteria (Auto) Ur Renal Epithelial Cell Amorphous Sediment Urine Yeast SARS-CoV-2 (PCR) Influenza Type A (PCR) Influenza Type B (PCR) RSV (RT-PCR) 10/09/22 07:56 WBC RBC Hgb Hct MCV MCH MCHC RDW Std Deviation RDW Coeff of [place] Plt Count MPV Immature Gran % (Auto) Neut % (Auto) Lymph % (Auto) [place] % (Auto) Eos % (Auto) Baso % (Auto) Neut # (Auto) Lymph # (Auto) [place] # (Auto) Eos # (Auto) Baso # (Auto) Immature Gran # (Auto) PT INR APTT PTT Ratio VBG pH VBG pCO2 VBG pO2 VBG HCO3 VBG O2 Saturation VBG Base Excess Sodium Potassium Chloride Carbon Dioxide Anion Gap BUN Creatinine Est Cr Clr Drug Dosing Est GFR ( Amer) Est GFR (Non-Af Amer) BUN/Creatinine Ratio Glucose POC Glucose 258 H Lactate Calcium Phosphorus Magnesium Total Bilirubin Direct Bilirubin AST ALT Alkaline Phosphatase Troponin I High Sens B-Natriuretic Peptide Total Protein Albumin Globulin Albumin/Globulin Ratio Urine Color Urine Appearance Urine pH Ur Specific [place] Urine Protein Urine Glucose (UA) Urine Ketones Urine Blood Urine Nitrite Urine Bilirubin Urine Urobilinogen Ur Leukocyte Esterase Urine WBC (Auto) Urine RBC (Auto) U Hyaline Cast (Auto) U Epithel Cells (Auto) Urine Bacteria (Auto) Ur Renal Epithelial Cell Amorphous Sediment Urine Yeast SARS-CoV-2 (PCR) Influenza Type A (PCR) Influenza Type B (PCR) RSV (RT-PCR) Diagnostic Findings CT abd pelvis wo con Lower chest: Bibasilar atelectasis versus scarring is seen. Liver: Unremarkable. No focal lesions are seen. Gallbladder and biliary tree: Patient is status post cholecystectomy. No intra- or extrahepatic biliary ductal dilation. Pancreas: Unremarkable, no focal lesions. Spleen: Unremarkable. Adrenals: Unremarkable. Kidneys and ureters: Perinephric stranding is noted bilaterally. Left lower pole cyst is seen. No hydronephrosis is seen. Bladder: Diffuse homogeneous wall thickening is seen. Reproductive organs: Patient appears be status post prostatectomy. Bowel: Unremarkable. Lymph nodes Retroperitoneal: Unremarkable. Pelvic: Unremarkable. Mesenteric: Unremarkable. Peritoneum: Normal. Vessels: Atherosclerotic calcifications are seen. Abdominal wall: Right fat-containing inguinal hernia. Bones: Degenerative changes in the visualized spine. Posterior fixation hardware is seen in the lumbar sacral spine. IMPRESSION: No acute abnormality and in particular no evidence of hydronephrosis. Chronic appearing bladder wall thickening is likely due to chronic outlet obstruction, although superimposed cystitis cannot be entirely excluded. PG Care Time/CCT Total # of Minutes Spent Total Time Spent with Patient: Total time spent is greater than 50% in coordination of care (as documented) at patient's floor/unit and/or counseling patient: Coding Level of Care Code 49668 IN/OBS CONSULT LVL 5,80M Diagnoses Acute kidney injury superimposed on CKD N17.9; N18.9 Acute hyperkalemia E87.5 Urethral stricture N35.919 Prostatitis N41.0 Prostatitis type: acute Goals of care, counseling/discussion Z71.89 (4) Prostatitis Prostatitis type: acute Qualified Code(s): N41.0 - Acute prostatitis
--- NOTE | 2022-10-09 11:13 | Urology Consultation ---
Date of Consultation October 09, 2022 Assessment & Plan (1) Acute kidney injury superimposed on CKD: The exact etiology of his JUDI is unclear. With a CT scan showing less of the bladder than it had a couple days prior, I am not entirely convinced that JUDI was related to obstruction/post-renal etiology, however with a catheter in place and draining well, hopefully he will improve. (2) Urethral stricture: Bulbar urethral stricture identified on bedside cystoscopy. This was gently di lated at the bedside to facilitate catheter placement. False passage was noted from catheterization attempts. His current catheter should stay in place for at least 1 week to allow this to heal. We can have him follow-up in the urology office for voiding trial and subsequent discussion of urethral stricture. (3) Hematuria: Some bleeding around the catheter is to be expected from the false passage. This should stop with time. Continue to monitor the catheter to ensure ongoing urine output. We can discuss whether or not to perform a full hematuria work-up as an outpatient. Plan Urology will follow along History of Present Illness Reason for Consultation: Chronic bladder outlet obstruction, inability to place Lopez catheter Attending Physician: Alexandru Harrell, History of Present Illness This is an 86-year-old male with history of BPH, previously followed by urology for bladder outlet obstruction. He presented to the emergency department on 10/08/2022 with worsening edema. He had recently been treated for skin infections and possible prostatitis with Keflex and ciprofloxacin. He is a somewhat vague historian but reports having some output of blood per urethra prior to hospitalization. Catheterization was attempted by nursing staff, but catheter could not be placed. He was not having any urinary symptoms and it was unclear whether or not he had been voiding spontaneously. Evaluation in the emergency department was notable for normal WBC (9.23). Hemoglobin was 13.8. His creatinine was elevated to 6.19 with hyperkalemia and hyponatremia. CT scan was performed. I independently reviewed these images. Both kidneys are in normal position with no hydronephrosis bilaterally. I do not appreciate any stones on either side. The ureters are normal in course extending down to the bladder. The bladder wall is substantially thickened consistent with chronic outlet obstruction. There does not appear to be significant mount of fluid within the lumen of the bladder. Comparison with his CT scan from 3 days prior suggests he actually has less volume present within the bladder. At the bedside, he denied any bladder discomfort and tells me that he had voided in the toilet, but shortly afterwards states that he would have told his nurse if he was going to void. He was unable to provide any more history regarding the hematuria. Due to further elevation of his creatinine, Lopez catheter was placed in the following fashion. The patient was prepped and draped in the usual sterile fashion. A well-lubricated 20 Slovak catheter was advanced per urethra. There was some resistance which I attempted to overcome with gentle pressure. Once the catheter was in, there was no return of urine, suggesting it was either curled within the prostate or a false passage. Catheter was then removed. A well-lubricated flexible cystoscope was then inserted and used to survey the urethra. The distal urethra was normal with no strictures or mucosal abnormalities. The level of the membranous urethra there was a false passage extending posteriorly. A 0.038 inch zip wire was used to cannulate the true lumen. An appropriate amount of wire was advanced and curled within the bladder, confirming position by some drops of urine draining around the wire and patient reporting increased sensation of needing to void. I attempted to advance a councilized 14 Slovak silicone catheter, however met resistance at the level of the false passage, suggesting a bulbar urethral stricture. Urethral dilation was performed using [employer] S-curve dilators over the wire, going from 12- 16 Slovak. Once this had been performed, the 14 Slovak silicone catheter could easily be advanced over the wire and into the bladder. The balloon was inflated with 10 mL normal saline and the catheter was attached to gravity drainage, and subsequently put out approximately 200 mL of urine. At this point the procedure was complete. Patient tolerated it well with no immediate complications. Allergies Allergy/AdvReac Type Severity Reaction Status Date / Time semaglutide [From Ozempic] AdvReac Severe NAUSEA/VOMI Verified 10/08/22 17:29 TING/ANOREX IA amlodipine AdvReac Intermediate SWELLING Verified 10/08/22 17:29 OF ANKLES ropinirole AdvReac Intermediate CHANGE IN Verified 10/08/22 17:29 MENTAL STATUS Home Medications Medication Instructions Recorded Confirmed Type albuterol sulfate 90 mcg/actuation 2 puffs inhalation QID PRN 01/10/19 10/08/22 History aerosol inhaler shortness of breath or wheezing levothyroxine 88 mcg tablet 88 mcg PO DAILYBB #90 tabs 01/10/19 10/08/22 History potassium chloride 20 mEq 20 meq PO BID 01/10/19 10/08/22 History tablet,extended release finasteride 5 mg tablet 5 mg PO HS 04/23/19 10/08/22 History losartan 25 mg tablet 25 mg PO QAM 04/23/19 10/08/22 History tamsulosin 0.4 mg capsule 0.4 mg PO HS 04/23/19 10/08/22 History gabapentin 100 mg capsule See Rx Instructions .Route .COMPLEX 12/16/20 10/08/22 History aspirin 81 mg tablet,delayed 81 mg PO DAILY 10/11/21 10/08/22 History release pantoprazole 20 mg tablet,delayed 20 mg PO BID 02/07/22 10/08/22 History release glipizide 10 mg tablet 10 mg PO BID 03/29/22 10/08/22 History insulin glargine 100 unit/mL (3 See Rx Instructions .Route .COMPLEX 04/12/22 10/08/22 History mL) subcutaneous pen (Lantus Solostar U-100 Insulin) acetaminophen 500 mg tablet 1,000 mg PO Q6H PRN PAIN/FEVER 05/28/22 10/08/22 History (Tylenol Extra Strength) bumetanide 2 mg tablet 2 mg PO BID 05/28/22 10/08/22 History clonazepam 1 mg tablet 1 mg PO BID 05/28/22 10/08/22 History diphenhydramine HCl 25 mg capsule 25 mg PO BID PRN NEEDED 05/28/22 10/08/22 History (Benadryl) fluticasone 500 mcg-salmeterol 50 1 inh inhalation BID 05/28/22 10/08/22 History mcg/dose blistr powdr for inhalation metoprolol tartrate 50 mg tablet 25 mg PO BID 05/28/22 10/08/22 History multivitamin with minerals 1 tab PO DAILY 05/28/22 10/08/22 History rosuvastatin 20 mg tablet 20 mg PO HS 05/28/22 10/08/22 History tiotropium bromide 2.5 2 puff inhalation DAILY 05/28/22 10/08/22 History mcg/actuation mist for inhalation vitamins A,C,Z-mqmu-jvnmge 2,148 1 tab PO DAILY 05/28/22 10/08/22 History mcg-113 mg-45 mg-17.4 mg tablet (PreserVision AREDS) apixaban 5 mg tablet (Eliquis) 5 mg PO BID 09/26/22 10/08/22 History ciprofloxacin HCl 500 mg tablet 500 mg PO DAILY #14 tabs 10/05/22 10/08/22 Rx (Cipro) cephalexin 500 mg capsule 500 mg PO BID 10/08/22 10/08/22 History empagliflozin 10 mg tablet 10 mg PO DAILY 10/08/22 10/08/22 History Patient History Medical History Acute bronchopneumonia Acute urinary retention [id number] kidney injury AMS (altered mental status) Anxiety Aortic stenosis Mild per 03/06/19 stress ECHO Asthma Uses rescue inhaler a couple times per week Atrial fibrillation Follows with Dr. Maile Soares Blindness of left eye BPH (benign prostatic hyperplasia) CAD (coronary artery disease) Angioplasty ~1993, CABG x 3 2013 (GALINDO to LAD, SVG to PDA, SVG to OM) CHF (congestive heart failure) Chronic kidney disease Follows with Dr. Dixon Chronic obstructive pulmonary disease Diabetes Type 2 IDDM Foot ulcer GERD (gastroesophageal reflux disease) Herpes zoster Hiatal hernia Hyperlipidemia Hypertension Hypervolemia Hypothyroidism Leukocytosis Macular degeneration Myocardial infarct ~1993 Peripheral neuropathy Rupture of left distal biceps tendon hx - no surgery Secondary hyperparathyroidism (of renal origin) SIRS (systemic inflammatory response syndrome) Surgical History Fusion of spine lumbar History of appendectomy History of cardiac cath with angioplasty ~1993 ([facility]) & 2013 ([facility]) History of cataract surgery bilateral History of coronary artery bypass graft x3 vessels ([facility] 2013) with epicardial RFA of pulmonary veins and left atrial appendage ligation History of revision of total replacement of right knee joint History of tonsillectomy History of tooth extraction History of total left knee replacement History of total right knee replacement Hx of colonoscopy Previous back surgery (08/26/12) S/P cholecystectomy Family History Brother Heart disease Diabetes Sister Cancer Mother Diabetes Father Diabetes Other Hypertension Kidney disease Social History Smoking Status: Former smoker Tobacco Type: Cigarettes Second Hand Exposure: No; Do You Dip or Chew Tobacco: No; Hx Alcohol Use: No Hx Substance Use: No Preferred Language: Grenadian Communication Ability: Effective Visual Impairment: Partially Limited Precast Molder Required: No Beliefs That Will Affect Care: Restorationist Restorationist Beliefs: Pt. states he would not want any machines to keep him alive including dialysis. marital status: Current Living Situation: Spouse Current Living Situation Comment: lives at home with current occupational status: retired Other Information That Helps Us Care for You: No Feels Safe at Home: Yes Safety Concerns: Feels Safe At This Time Assistive Devices: Cane, Denture - Upper, Denture - Lower, Glasses, Walker and Wheelchair Review of Systems Review of Systems: 12 point review of systems negative except for otherwise indicated. Physical Exam Constitutional: well developed and well nourished; no acute distress Eyes: + anicteric sclerae; pupils not irregular Respiratory: normal respiratory effort; no respiratory distress, does not use accessory muscles and no cough Cardiovascular: well perfused Gastrointestinal (Abdomen): Inspection/Auscultation: abdomen normal to inspection; abdomen not distended Musculoskeletal: Extremities: extremities normal to inspection Skin: normal turgor; no rashes and no lesions Neurologic: moves all extremities and awake Psychiatric: Orientation: alert and oriented x 3 Genitourinary: Lopez catheter in place draining yellow urine, some blood around the Lopez from multiple catheterization attempts. Results & Data Vital Signs (Past 12 Hours) Vital Signs Temp Pulse Pulse Pulse Resp BP Pulse Ox 10/09/22 07:26 10/09/22 07:20 36.4 C L 72 20 148/67 H 96 10/09/22 07:03 70 18 91 10/09/22 04:00 36.6 C 68 18 153/69 H 95 10/09/22 01:33 70 O2 Del Method 10/09/22 07:26 Room Air 10/09/22 07:20 Room Air 10/09/22 07:03 Room Air 10/09/22 04:00 Room Air 10/09/22 01:33 PG Care Time/CCT Total # of Minutes Spent Total Time Spent with Patient: Total time spent is greater than 50% in coordination of care (as documented) at patient's floor/unit and/or counseling patient: Coding Level of Care Code 60589 INT INP/OBS CARE 2/55MIN Diagnoses Acute kidney injury superimposed on CKD N17.9; N18.9 Urethral stricture N35.919 Hematuria R31.0 Hematuria type: gross (3) Hematuria Hematuria type: gross Qualified Code(s): R31.0 - Gross hematuria
[2022-10-09] MEDS: PATIROMER CALCIUM SORBITEX 8.4 GM PACK PO SCH (11:46)
[2022-10-09 12:56] LABS: BUN Creatinine Ratio 12.4 (10-20); Calcium 7.8 mg/dl (8.6-10.3); Creatinine Clr Calc Pharmacy 8.6 ml/min; Est GFR (African American) 7.5 ml/min; Est GFR (Non-African American) 6.5 ml/min; Potassium 6.7 mmol/L (3.5-5.1)
[2022-10-09] MEDS ORDERED: CALCIUM GLUCONATE 10% 1,000 MG in DEXTROSE 5% 50 ML IV ONE (13:45)
[2022-10-09 13:51] LABS: Appearance Urine Turbid (Clear); Bilirubin Urine Negative (Negative); Blood Urine 3+ (Negative); Color Urine Dark Yellow; Epithelial Cell Urine Auto >30 /lpf (0-5); Glucose Urine UA 1+ (Negative); Ketones Urine Negative (Negative); Leukocyte Esterase Urine Trace (Negative); Nitrite Urine Negative (Negative); Protein Urine 4+ (Negative); RBC Urine Automated >30 /hpf (0-4); Specific Gravity Urine 1.031 (1.000-1.030); Urobilinogen Urine Negative (Negative)
[2022-10-09 14:02] LABS: Bacteria Urine Automated 1+ (Negative)
[2022-10-09 14:18] LABS: Creatinine Urine Random 107.5 mg/dl
[2022-10-09] MEDS ORDERED: BUMETANIDE 2 MG in SYRINGE 0 ML IV ONE (14:30)
[2022-10-09] MEDS ORDERED: methylPREDNISolone 1,000 MG in DEXTROSE 5% 250 ML IV STA (14:44)
--- NOTE | 2022-10-09 16:22 | Billing Data ---
Date of Service October 09, 2022 Coding Level of Care Code 15253 SUB INP/OBS CARE MIN
[2022-10-09 17:09] LABS: BUN Creatinine Ratio 12.1 (10-20); Calcium 8.2 mg/dl (8.6-10.3); Creatinine Clr Calc Pharmacy 8.5 ml/min; Est GFR (African American) 7.4 ml/min; Est GFR (Non-African American) 6.4 ml/min; Potassium 6.5 mmol/L (3.5-5.1)
--- NOTE | 2022-10-09 19:51 | Billing Data ---
Date of Service October 09, 2022 Coding Level of Care Code 02539 INT INP/OBS CARE
[2022-10-09] MEDS: ROSUVASTATIN CALCIUM 10 MG TAB PO SCH (21:01)
[2022-10-09] MEDS: FINASTERIDE 5 MG TAB PO SCH (21:01)
[2022-10-09] MEDS: TAMSULOSIN HCL 0.4 MG CAP PO SCH (21:02)
--- NOTE | 2022-10-09 21:11 | Electrocardiogram Report ---
Test Reason : Blood Pressure : / mmHG Vent. Rate : 066 BPM Atrial Rate : 066 BPM P-R Int : 212 ms QRS Dur : 156 ms QT Int : 408 ms P-R-T Axes : 009 -69 046 degrees QTc Int : 427 ms Sinus rhythm with 1st degree A-V block Left axis deviation Right bundle branch block Abnormal ECG When compared with ECG of 05-OCT-2022 11:36, No significant change Confirmed by Vito Simons ([id number]) on 10/09/2022 9:11:27 PM Referred By: Confirmed By:Vito Simons
[2022-10-10] MEDS: ALBUTEROL 0.083% NEBU SOLN 3 ML VIAL NEB SCH ×4 (00:21→19:12)
[2022-10-10 00:34] LABS: BUN Creatinine Ratio 12.8 (10-20); Creatinine Clr Calc Pharmacy 8.2 ml/min; Est GFR (African American) 7.1 ml/min; Est GFR (Non-African American) 6.1 ml/min; Potassium 6.7 mmol/L (3.5-5.1)
[2022-10-10] MEDS ORDERED: CALCIUM GLUCONATE 10% 1,000 MG in DEXTROSE 5% 50 ML IV STA (00:42)
[2022-10-10] MEDS ORDERED: STAT IV STA ×2 (00:42→15:34)
[2022-10-10] MEDS ORDERED: DEXTROSE 50% 50 ML SYRINGE IV STA (00:42)
[2022-10-10] MEDS: AMPICILLIN/SULBACTAM SOD 1,500 MG in 0.9 % SODIUM CHLORIDE 100 ML IV SCH (00:49)
[2022-10-10] MEDS ORDERED: INSULIN HUMAN REGULAR PER UNIT 10 UNITS in SYRINGE 9.9 ML IV STA (00:51)
[2022-10-10] MEDS: LEVOTHYROXINE SODIUM 88 MCG TABLET PO SCH (05:42)
--- NOTE | 2022-10-10 06:35 | Electrocardiogram Report ---
Test Reason : Blood Pressure : / mmHG Vent. Rate : 066 BPM Atrial Rate : 068 BPM P-R Int : 240 ms QRS Dur : 154 ms QT Int : 426 ms P-R-T Axes : 073 -60 056 degrees QTc Int : 446 ms Poor data quality, interpretation may be adversely affected Sinus rhythm with 1st degree A-V block Left axis deviation Right bundle branch block Inferior infarct , age undetermined Abnormal ECG When compared with ECG of 08-OCT-2022 15:59, No significant change was found Confirmed by Vito Simons ([id number]) on 10/10/2022 6:35:17 AM Referred By: REFERRED SELF Confirmed By:Vito Simons
--- NOTE | 2022-10-10 07:35 | Hospitalist Progress Note ---
Date of Service October 10, 2022 Assessment & Plan (1) Fluid overload: Plan: 86yo Male with PMH CHF EF 60-65%, DM2, asthma, COPD, Hx. VT, DVT, hypothyroidism, CKD, HTN, HLD, chronic leg wound, GERD here for increased swelling in face, extremities, abd found to have JUDI on CKD. JUDI on CKD: -concern for ATN vs AIN with component of post-renal obstructive -Creat 6.19 on admission (baseline 2), continues to trend up -Hyponatremic, hyperkalemic. Fractional excretion of sodium 0.9% -CT A&P showed no evidence of hydronephrosis. Chronic appearing bladder wall thickening is likely due to chronic outlet obstruction -Urology consulted; Jeronimo placed. Allow for catheter for at least 1 week, can follow up w/ urology outpatient for voiding trial. -Nephrology consulted: -Possible ATN in setting of recent infection vs AIN from recent antibiotic use. -Will treat suspected AIN w/ methylpred 1gm daily x3 doses. Adjusted medications for JUDI. -Strict I&Os -patient does not want dialysis chcf, but willing to do temporally. Holding Eliquis with possibility of PermCath later in the week and dialysis -trend BMP. Hyperkalemia: -potassium 6.1 on admission, has steadily risen since to 6.9 - Received one dose of 5mg Lokelma on admission -Patient given multiple doses of insulin 10U w/ D5, calcium gluconate -started on Patiromer 8.4gm daily. -Initial EKG on admission without significant T-wave changes. EKG daily -Bumex 2mg IV ordered by nephrology with decent urine output - Started on insulin gtt for hyperglycemia, hopefully will also improve K - BMP q6 Hyperglycemia - hyperglycemia likely secondary to steriod use - insulin drip started Prostatitis: -stop cipro given renal function -urine culture 10/05 grew proteus vulgaris resistance to ceftriaxone -Unasyn renally dosed 1.5g q24h Wheeze: -continue home inhalers -ordered albuterol q6hr nebulizer HTN, Hx. VT: -continue metoprolol, aspirin -hold losartan given JUDI DM2: -insulin gtt BPH: -continue tamsulosin, increased to 0.8mg -continue finasteride HLD: -continue rosuvastatin GERD: -continue protonix Anxiety: -continue clonapin, gabapentin Hypothyroidism -continue levothyroxine FENa: heart healthy DM2 fluid restriction 1.5L Code Status: Full code is POA DVT PPX: Eliquis renally dosed (2) Acute kidney injury superimposed on CKD: (3) DVT (deep venous thrombosis): (4) Prostatitis: (5) Acute hyperkalemia: (6) Abdominal distension: (7) Benign prostatic hyperplasia with urinary obstruction: (8) Hypothyroidism: (9) Hypertension: (10) Dyslipidemia: (11) CHF (congestive heart failure): (12) GERD (gastroesophageal reflux disease): (13) Diabetes: Admission and Anticipated Discharge Date Admission Date: October 08, 2022 Supervising Physician Co-Signing Physician Notes Attending attestation Pt seen and examined in concert with Dr. Christian. In agreement with the documented findings as noted in the resident documentation with any exceptions or additions as noted here. Ongoing swelling and fatigue relatively stable from previous without new complaint at present. On examination, S1/S2 nl RRR no MCG. CTAB. 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 ATN with ?component of postrenal obstruction s/p cystoscopy with jeronimo placement. Cr continues to uptrend, follow BMP. Patient spontaneously reinforced does not want dialysis. Continue m ethylprednisolone therapy. Hyperkalemia - 6.4 (high of 6.9) - s/p multiple interventions. Insulin GTT as noted below. Tolerating bumetanide with output as noted. No EKG changes at present, daily EKG. DMII with hyperglycemia - ongoing hyperglycemia likely 2/2 methylpred. Insulin GTT and glycemic control consultation for support management. Prostatitis - continue Unasyn Else see resident documentation as noted. Subjective Pt seen at bedside. No complaints. Discussed dialysis. This morning he was admit that he did not want dialysis. came in this afternoon and upon further discussion with her and him he is willing to try "temporary" dialysis. Discussed that he may need chcf. Review of Systems Review of Systems: As per above Physical Exam Physical Exam: Constitutional: well-appearing, no acute distress HEENT: NCAT, no conjunctival injection CV: regular rhythm, no murmur appreciated, extremities well-perfused, 1+ LE edema Resp: CTABL, no wheezes/rales/rhonchi appreciated, no increased work of breathing GI: soft, nondistended, nontender, BS normoactive MSK: no gross deformities appreciated Skin: warm, dry, no rash appreciated Neuro: alert, oriented, no focal neurologic deficit appreciated Results & Data Results & Data Vital Signs (Past 12 Hours) Vital Signs Temp Pulse Pulse Pulse Resp BP BP 10/10/22 06:18 36.4 C L 73 18 186/77 H 10/10/22 03:11 36.3 C L 67 20 137/68 10/10/22 00:37 70 10/10/22 00:23 22 10/09/22 22:00 36.3 C L 70 18 159/69 H 10/09/22 22:05 10/09/22 21:00 70 143/77 H Pulse Ox O2 Del Method 10/10/22 06:18 96 Room Air 10/10/22 03:11 94 Room Air 10/10/22 00:37 10/10/22 00:23 90 Room Air 10/09/22 22:00 91 Room Air 10/09/22 22:05 Room Air 10/09/22 21:00 Resident Activity Tracking Resident Involvement: Resident Care Provided Care Provided: Adult Hospital Medicine (4) Prostatitis Prostatitis type: acute Qualified Code(s): N41.0 - Acute prostatitis (8) Hypothyroidism Hypothyroidism type: unspecified Qualified Code(s): E03.9 - Hypothyroidism, unspecified (9) Hypertension Hypertension type: essential hypertension Qualified Code(s): I10 - Essential (primary) hypertension (11) CHF (congestive heart failure) Heart failure chronicity: unspecified Heart failure type: unspecified Qualified Code(s): I50.9 - Heart failure, unspecified (12) GERD (gastroesophageal reflux disease) Esophagitis presence: esophagitis presence not specified Qualified Code(s): K21.9 - Gastro-esophageal reflux disease without esophagitis (13) Diabetes Diabetes mellitus complication status: with hyperglycemia 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
[2022-10-10 07:52] LABS: Hematocrit (blood only) 36.5 % (42.0-52.0); Hemoglobin 12.7 g/dl (14.0-18.0); Mean Corpuscular Hemoglobin 31.3 pg (25.0-34.0); Mean Corpuscular Hgb Conc 34.8 g/dL (32.0-36.0); Mean Corpuscular Volume 89.9 fL (80.0-100.0); Mean Platelet Volume 9.4 fL (9.4-12.4); Platelet Count 158 K/uL (130-400); RDW Coefficient of Variation 13.2 % (11.5-14.5); RDW Standard Deviation 44.3 fL (36.4-46.3); Red Blood Count 4.06 M/uL (4.70-6.10); White Blood Count 10.21 K/ul (4.8-10.8)
[2022-10-10 08:14] LABS: Creatinine Clr Calc Pharmacy 8.2 ml/min
[2022-10-10 08:18] LABS: BUN Creatinine Ratio 12.6 (10-20); Calcium 8.6 mg/dl (8.6-10.3); Potassium 6.9 mmol/L (3.5-5.1)
[2022-10-10] MEDS ORDERED: INSULIN HUMAN REGULAR PER UNIT 10 UNITS in SYRINGE 0 ML IV STA (08:24)
[2022-10-10 08:25] LABS: Basophils # (auto) 0.02 K/uL (0-0.2); Basophils % (auto) 0.2 %; Immature Granulocytes # (auto) 0.11 K/uL (0.01-0.20); Immature Granulocytes % (auto) 1.1 %; Lymphocytes % (auto) 4.9 %; Monocytes # (auto) 0.05 K/uL (0.11-0.59); Monocytes % (auto) 0.5 %; Neutrophils # (auto) 9.53 K/uL (1.40-6.50); Neutrophils % (auto) 93.3 %
[2022-10-10] MEDS: INSULIN ASPART PER UNIT CHARGE SC SCH ×4 (08:29→20:53)
[2022-10-10] MEDS: UMECLIDINIUM BROMIDE 62.5MCG/BLISTER 7 PUFFS/INHALER INH SCH (08:30)
[2022-10-10] MEDS: FLUTICASONE/VILANTEROL 200/25MCG 14 PUFFS/INHALER INH SCH (08:30)
[2022-10-10] MEDS: LANTUS PER UNIT CHARGE SQ SCH ×2 (08:30→21:03)
[2022-10-10] MEDS: clonazePAM 1 MG TAB PO SCH ×2 (08:30→21:03)
[2022-10-10] MEDS: METOPROLOL TARTRATE 25 MG TAB PO SCH ×2 (08:31→20:56)
[2022-10-10] MEDS: APIXABAN 2.5 MG TAB PO SCH (08:31)
[2022-10-10] MEDS: PANTOprazole 40 MG TAB PO SCH ×2 (08:31→20:57)
[2022-10-10] MEDS: ASPIRIN 81 MG ECTAB PO SCH (08:31)
[2022-10-10] MEDS: CEROVITE ADV FORMULA TAB PO SCH (08:31)
[2022-10-10] MEDS: GABAPENTIN 100 MG CAP PO SCH (08:31)
[2022-10-10] MEDS ORDERED: INSULIN HUMAN REGULAR PER UNIT 10 UNITS in SYRINGE 9.9 ML IV ONE (09:00)
[2022-10-10] MEDS ORDERED: BUMETANIDE 2 MG in SYRINGE 0 ML IV ONE (09:15)
--- NOTE | 2022-10-10 09:18 | Nephrology Progress Note ---
Date of Service October 10, 2022 Assessment & Plan (1) Acute kidney injury superimposed on CKD: Plan: JUDI superimposed on advanced CKD. Prognosis for recovery is guarded. Non- oliguric. Urine output increased with IV Bumex yesterday. Aj remains hypervolemic and hyperkalemic. For suspected AIN continue methylprednisolone 1000 mg IV daily x 3 doses. Second dose provided this AM. Additional Bumex 2 mg IV provided this AM. Continue regular use of Patiromer as Rx. Repeat metabolic profile this afternoon. Maintain Lopez to gravity. DDx includes ATN in the setting of recent infections vs. AIN (potentially associated with ciprofloxacin or cephalexin). Cannot exclude potential anticoagulant-related nephropathy from Eliquis though this would be significantly less likely. Low potassium diet. Document I/O's. Repeat metabolic profile this afternoon. Reduce rosuvastatin to 10 mg daily. Limit Eliquis to 2.5 mg BID. Gabapentin reduced from 400 mg daily to 100 mg daily. Losartan held. (2) Acute hyperkalemia: Plan: Patiromer 8.4 grams daily. Low potassium diet. Bumex 2 mg IV now to encourage urine output. Repeat metabolic profile this afternoon. (3) Urethral stricture: Plan: Followed by Dr. Gunter as an outpatient. Maintain Lopez to gravity. Appreciate urology consultation. CT reviewed. No obvious obstructive nephropathy. (4) Prostatitis: Plan: Prior vulture +proteus vulgaris. Remains on Unasyn. Avoid cephalosporins and fluoroquinolones for now. Repeat culture pending. (5) Goals of care, counseling/discussion: Plan: DNR/DNI. Dialysis will not be considered part of the care plan based on patient wishes. Admission and Anticipated Discharge Date Admission Date: October 08, 2022 Subjective No acute events overnight. Aj was seen and evaluated with his at the bedside this AM. He states that he feels a lot better. He was able to move his bowels this morning. This was the first bowel movement that he has had since admission. He feels that he is breathing a little more comfortably. Appetite is good. Aj states that he ate a good breakfast. They reaffirmed that dialysis will not be part of the treatment plan. Review of Systems Review of Systems: All systems reviewed & are unremarkable except as noted in HPI & below Constitutional: + fatigue and + weakness Physical Exam Constitutional: well developed and + frail appearing; no acute distress Eyes: no scleral abnormality and no corneal abnormality ENMT: Mouth: + dry oral mucous membranes; no oral mucosal abnormality Neck: normal visual inspection and trachea midline Respiratory: normal respiratory effort and + tachypneic Auscultation: + wheezes Cardiovascular: Rate/Rhythm: regular rate Heart Sounds: normal S1 and normal S2 Extremities: + edema and + varicosities Musculoskeletal: Extremities: no cyanosis and no clubbing Skin: normal turgor; no lesions Neurologic: Motor/Sensory: no tremor and no asterixis Psychiatric: Orientation: alert and oriented x 3 Results & Data Vital Signs (Past 12 Hours) Vital Signs Temp Pulse Pulse Resp BP BP Pulse Ox 10/10/22 08:18 66 18 95 10/10/22 07:49 36.4 C L 67 20 189/71 H 95 10/10/22 06:18 36.4 C L 73 18 186/77 H 96 10/10/22 03:11 36.3 C L 67 20 137/68 94 10/10/22 00:37 70 10/10/22 00:23 22 90 10/09/22 22:00 36.3 C L 70 18 159/69 H 91 10/09/22 22:05 O2 Del Method 10/10/22 08:18 Room Air 10/10/22 07:49 Room Air 10/10/22 06:18 Room Air 10/10/22 03:11 Room Air 10/10/22 00:37 10/10/22 00:23 Room Air 10/09/22 22:00 Room Air 10/09/22 22:05 Room Air Laboratory Results Laboratory Results - last 24 hr 10/09/22 10/09/22 10/09/22 11:38 11:42 13:23 WBC RBC Hgb Hct MCV MCH MCHC RDW Std Deviation RDW Coeff of Adrian Plt Count MPV Immature Gran % (Auto) Neut % (Auto) Lymph % (Auto) Rogers % (Auto) Eos % (Auto) Baso % (Auto) Neut # (Auto) Lymph # (Auto) Rogers # (Auto) Eos # (Auto) Baso # (Auto) Immature Gran # (Auto) Sodium 126 L Potassium 6.7 H* Chloride 98 Carbon Dioxide 22 Anion Gap 6 BUN 86 H Creatinine 6.95 H* D Est Cr Clr Drug Dosing 8.6 Est GFR ( Amer) 7.5 Est GFR (Non-Af Amer) 6.5 BUN/Creatinine Ratio 12.4 Glucose 248 H POC Glucose 246 H Calcium 7.8 L Total Creatine Kinase 219 Urine Color Dark Yellow Urine Appearance Turbid A Urine pH 5.0 Ur Specific [place] 1.031 H Urine Protein 4+ H Urine Glucose (UA) 1+ H Urine Ketones Negative Urine Blood 3+ H Urine Nitrite Negative Urine Bilirubin Negative Urine Urobilinogen Negative Ur Leukocyte Esterase Trace H Urine WBC (Auto) 5-10 H Urine RBC (Auto) >30 H U Hyaline Cast (Auto) 1-5 U Epithel Cells (Auto) >30 H Urine Bacteria (Auto) 1+ H Ur Random Creatinine Ur Random Sodium 10/09/22 10/09/22 10/09/22 13:23 16:18 16:50 WBC RBC Hgb Hct MCV MCH MCHC RDW Std Deviation RDW Coeff of Adrian Plt Count MPV Immature Gran % (Auto) Neut % (Auto) Lymph % (Auto) Rogers % (Auto) Eos % (Auto) Baso % (Auto) Neut # (Auto) Lymph # (Auto) Rogers # (Auto) Eos # (Auto) Baso # (Auto) Immature Gran # (Auto) Sodium 126 L Potassium 6.5 H* Chloride 98 Carbon Dioxide 20 L Anion Gap 8 BUN 86 H Creatinine 7.08 H* Est Cr Clr Drug Dosing 8.5 Est GFR ( Amer) 7.4 Est GFR (Non-Af Amer) 6.4 BUN/Creatinine Ratio 12.1 Glucose 200 H POC Glucose 219 H Calcium 8.2 L Total Creatine Kinase Urine Color Urine Appearance Urine pH Ur Specific [place] Urine Protein Urine Glucose (UA) Urine Ketones Urine Blood Urine Nitrite Urine Bilirubin Urine Urobilinogen Ur Leukocyte Esterase Urine WBC (Auto) Urine RBC (Auto) U Hyaline Cast (Auto) U Epithel Cells (Auto) Urine Bacteria (Auto) Ur Random Creatinine 107.5 Ur Random Sodium 18 10/09/22 10/09/22 10/10/22 20:33 23:42 07:25 WBC 10.21 RBC 4.06 L Hgb 12.7 L Hct 36.5 L MCV 89.9 MCH 31.3 MCHC 34.8 RDW Std Deviation 44.3 RDW Coeff of Adrian 13.2 Plt Count 158 MPV 9.4 Immature Gran % (Auto) 1.1 Neut % (Auto) 93.3 Lymph % (Auto) 4.9 Rogers % (Auto) 0.5 Eos % (Auto) 0.0 Baso % (Auto) 0.2 Neut # (Auto) 9.53 H Lymph # (Auto) 0.50 L Rogers # (Auto) 0.05 L Eos # (Auto) 0.00 Baso # (Auto) 0.02 Immature Gran # (Auto) 0.11 Sodium 124 L Potassium 6.7 H* Chloride 95 L Carbon Dioxide 18 L Anion Gap 11 BUN 94 H Creatinine 7.32 H* Est Cr Clr Drug Dosing 8.2 Est GFR ( Amer) 7.1 Est GFR (Non-Af Amer) 6.1 BUN/Creatinine Ratio 12.8 Glucose 272 H POC Glucose 260 H Calcium 8.0 L Total Creatine Kinase Urine Color Urine Appearance Urine pH Ur Specific [place] Urine Protein Urine Glucose (UA) Urine Ketones Urine Blood Urine Nitrite Urine Bilirubin Urine Urobilinogen Ur Leukocyte Esterase Urine WBC (Auto) Urine RBC (Auto) U Hyaline Cast (Auto) U Epithel Cells (Auto) Urine Bacteria (Auto) Ur Random Creatinine Ur Random Sodium 10/10/22 10/10/22 10/10/22 07:25 07:41 07:41 WBC RBC Hgb Hct MCV MCH MCHC RDW Std Deviation RDW Coeff of Adrian Plt Count MPV Immature Gran % (Auto) Neut % (Auto) Lymph % (Auto) Rogers % (Auto) Eos % (Auto) Baso % (Auto) Neut # (Auto) Lymph # (Auto) Rogers # (Auto) Eos # (Auto) Baso # (Auto) Immature Gran # (Auto) Sodium 123 L Potassium 6.9 H* Chloride 94 L Carbon Dioxide 17 L Anion Gap 12 H BUN 93 H Creatinine 7.40 H* Est Cr Clr Drug Dosing 8.2 Est GFR ( Amer) 7.0 Est GFR (Non-Af Amer) 6.0 BUN/Creatinine Ratio 12.6 Glucose 380 H* POC Glucose 413 H* 367 H* Calcium 8.6 Total Creatine Kinase Urine Color Urine Appearance Urine pH Ur Specific [place] Urine Protein Urine Glucose (UA) Urine Ketones Urine Blood Urine Nitrite Urine Bilirubin Urine Urobilinogen Ur Leukocyte Esterase Urine WBC (Auto) Urine RBC (Auto) U Hyaline Cast (Auto) U Epithel Cells (Auto) Urine Bacteria (Auto) Ur Random Creatinine Ur Random Sodium PG Care Time/CCT Total # of Minutes Spent Total Time Spent with Patient: Total time spent is greater than 50% in coordination of care (as documented) at patient's floor/unit and/or counseling patient: Coding Level of Care Code 90310 SUB INP/OBS CARE 3/50MIN Diagnoses Acute kidney injury superimposed on CKD N17.9; N18.9 Acute hyperkalemia E87.5 Urethral stricture N35.919 Prostatitis N41.0 Prostatitis type: acute Goals of care, counseling/discussion Z71.89 (4) Prostatitis Prostatitis type: acute Qualified Code(s): N41.0 - Acute prostatitis
[2022-10-10] MEDS: SODIUM BICARBONATE 650 MG TAB PO SCH ×2 (11:00→20:57)
[2022-10-10] MEDS: methylPREDNISolone 1,000 MG in DEXTROSE 5% 250 ML IV SCH (11:01)
[2022-10-10] MEDS ORDERED: LANTUS PER UNIT CHARGE SQ ONE (11:30)
[2022-10-10] MEDS: PATIROMER CALCIUM SORBITEX 8.4 GM PACK PO SCH (12:14)
--- NOTE | 2022-10-10 12:52 | Urology Progress Note ---
Date of Service October 10, 2022 Assessment & Plan (1) Acute kidney injury superimposed on CKD: (2) Urethral stricture: (3) Prostatitis: Plan 86yo/M admitted with JUDI on CKD, UTI/Prostatitis. CT abd pelvis on admission with no evidence of hydronephrosis and chronic appearing bladder wall thickening likely due to chronic outlet obstruction. Bedside cystoscopy yesterday revealed a bulbar urethral stricture and false passage. This was dilated at the bedside to facilitate catheter placement. He is afebrile and hemodynamically stable. Labs show no leukocytosis and creatinine 7.40 today (7.32 yesterday). Nephrology is following, possible ATN in setting of recent infection vs AIN from recent antibiotic use. Current catheter should stay in place for at least 1 week for maximum drainage and to allow time for healing. Will arrange outpatient voiding trial and subsequent discussion of urethral stricture. Urine culture 10/05 with proteus vulgaris. Repeat urine culture pending. Blood cultures prelim no growth x 24 hours. On IV Unasyn, follow cultures. Continue supportive care and antibiotics. Urology will follow. Admission and Anticipated Discharge Date Admission Date: October 08, 2022 Subjective Patient examined at bedside this AM. Awake, resting in bed on arrival. No acute distress. at bedside. Lopez catheter intact, draining clear yellow urine. Reports feeling much better overall. Denies any pain or discomfort at present. No fevers. Review of Systems Constitutional: as per Subjective / HPI Genitourinary: + as per Subjective / HPI Physical Exam Constitutional: well developed and well nourished; no acute distress Respiratory: no respiratory distress Gastrointestinal (Abdomen): Percussion/Palpation: abdomen soft; abdomen nontender Neurologic: awake Psychiatric: Orientation: alert and oriented x 3 Genitourinary: Lopez catheter in place draining yellow urine Results & Data Vital Signs (Past 12 Hours) Vital Signs Temp Pulse Pulse Resp BP BP Pulse Ox 10/10/22 08:18 66 18 95 10/10/22 07:49 36.4 C L 67 20 189/71 H 95 10/10/22 06:18 36.4 C L 73 18 186/77 H 96 10/10/22 03:11 36.3 C L 67 20 137/68 94 10/10/22 00:37 70 O2 Del Method 10/10/22 08:18 Room Air 10/10/22 07:49 Room Air 10/10/22 06:18 Room Air 10/10/22 03:11 Room Air 10/10/22 00:37 PG Care Time/CCT Total # of Minutes Spent Total Time Spent with Patient: Total time spent is greater than 50% in coordination of care (as documented) at patient's floor/unit and/or counseling patient: Coding Level of Care Code 29238 SUB INP/OBS CARE 2/35MIN Diagnoses Acute kidney injury superimposed on CKD N17.9; N18.9 Urethral stricture N35.919 Prostatitis N41.0 Prostatitis type: acute (3) Prostatitis Prostatitis type: acute Qualified Code(s): N41.0 - Acute prostatitis
[2022-10-10 15:11] LABS: BUN Creatinine Ratio 13.9 (10-20); Calcium 8.1 mg/dl (8.6-10.3); Creatinine Clr Calc Pharmacy 8.1 ml/min; Est GFR (African American) 6.9 ml/min; Est GFR (Non-African American) 5.9 ml/min; Magnesium 2.4 mg/dl (1.7-2.4); Phosphorus 8.7 mg/dl (2.5-4.9); Potassium 6.4 mmol/L (3.5-5.1)
[2022-10-10] MEDS ORDERED: PHARMACY GLYCEMIC MGMT CONSULT PRN (15:17)
[2022-10-10] MEDS ORDERED: INSULIN PROTOCOL GOAL RANGE ONE (15:34)
[2022-10-10] MEDS ORDERED: SEVERE STRESS LEVEL ONE (15:34)
[2022-10-10] MEDS ORDERED: INSULIN HUMAN REGULAR IV BOLUS 4 UNITS in SYRINGE 0 ML IV ONE (16:15)
[2022-10-10] MEDS ORDERED: INSULIN REGULAR 250 UNITS in SODIUM CHLORIDE 0.9% 247.5 ML IV SCH (16:15)
[2022-10-10] MEDS ORDERED: PATIROMER CALCIUM SORBITEX 8.4 GM PACK PO ONE (18:15)
[2022-10-10] MEDS: FINASTERIDE 5 MG TAB PO SCH (20:56)
[2022-10-10] MEDS: ROSUVASTATIN CALCIUM 10 MG TAB PO SCH (20:56)
[2022-10-10] MEDS: TAMSULOSIN HCL 0.4 MG CAP PO SCH (20:57)
[2022-10-10] MEDS ORDERED: LANTUS PER UNIT CHARGE SQ SCH (21:00)
[2022-10-10 21:34] LABS: Calcium 8.2 mg/dl (8.6-10.3); Creatinine Clr Calc Pharmacy 7.7 ml/min; Est GFR (African American) 6.4 ml/min; Est GFR (Non-African American) 5.6 ml/min; Potassium 6.3 mmol/L (3.5-5.1)
[2022-10-11] MEDS: AMPICILLIN/SULBACTAM SOD 1,500 MG in 0.9 % SODIUM CHLORIDE 100 ML IV SCH (01:04)
[2022-10-11] MEDS: ALBUTEROL 0.083% NEBU SOLN 3 ML VIAL NEB SCH ×4 (01:09→19:03)
[2022-10-11 04:57] LABS: BUN Creatinine Ratio 13.5 (10-20); Calcium 8.5 mg/dl (8.6-10.3); Creatinine Clr Calc Pharmacy 7.4 ml/min; Est GFR (African American) 6.2 ml/min; Est GFR (Non-African American) 5.3 ml/min; Magnesium 2.4 mg/dl (1.7-2.4); Potassium 5.9 mmol/L (3.5-5.1)
[2022-10-11 04:59] LABS: Hematocrit (blood only) 33.5 % (42.0-52.0); Hemoglobin 12.1 g/dl (14.0-18.0); Mean Corpuscular Hemoglobin 31.8 pg (25.0-34.0); Mean Corpuscular Hgb Conc 36.1 g/dL (32.0-36.0); Mean Corpuscular Volume 88.2 fL (80.0-100.0); Mean Platelet Volume 9.5 fL (9.4-12.4); Platelet Count 181 K/uL (130-400); RDW Coefficient of Variation 13.2 % (11.5-14.5); RDW Standard Deviation 42.5 fL (36.4-46.3); White Blood Count 12.58 K/ul (4.8-10.8)
[2022-10-11] MEDS: LEVOTHYROXINE SODIUM 88 MCG TABLET PO SCH (05:46)
[2022-10-11 05:51] LABS: Basophils # (auto) 0.01 K/uL (0-0.2); Basophils % (auto) 0.1 %; Immature Granulocytes # (auto) 0.09 K/uL (0.01-0.20); Immature Granulocytes % (auto) 0.7 %; Lymphocytes # (auto) 0.64 K/uL (1.2-3.4); Lymphocytes % (auto) 5.1 %; Monocytes # (auto) 0.37 K/uL (0.11-0.59); Monocytes % (auto) 2.9 %; Neutrophils # (auto) 11.47 K/uL (1.40-6.50); Neutrophils % (auto) 91.2 %
--- NOTE | 2022-10-11 07:20 | Hospitalist Progress Note ---
Date of Service October 11, 2022 Assessment & Plan (1) Fluid overload: Plan: 86yo Male with PMH CHF EF 60-65%, DM2, asthma, COPD, Hx. HI, DVT, hypothyroidism, CKD, HTN, HLD, chronic leg wound, GERD here for increased swelling in face, extremities, abd found to have JUDI on CKD. JUDI on CKD: -concern for ATN vs AIN with component of post-renal obstructive -Creat 6.19 on admission (baseline 2), continues to trend up -Hyponatremic, hyperkalemic. Fractional excretion of sodium 0.9% -CT A&P showed no evidence of hydronephrosis. Chronic appearing bladder wall thickening is likely due to chronic outlet obstruction -Urology consulted; Jeronimo placed. Allow for catheter for at least 1 week, can follow up w/ urology outpatient for voiding trial. -Nephrology consulted: -Possible ATN in setting of recent infection vs AIN from recent antibiotic use. -Will treat suspected AIN w/ methylpred 1gm daily x3 doses. Adjusted medications for JUDI. -Strict I&Os -patient does not want dialysis assisted, but willing to do temporally. Holding Eliquis with possibility of PermCath later in the week -trend BMP q12 Hyperkalemia: -potassium 6.1 on admission, started to decline with insulin gtt - Received one dose of 5mg Lokelma on admission -Patient given multiple doses of insulin 10U w/ D5, calcium gluconate -started on Patiromer 8.4gm daily. -Initial EKG on admission without significant T-wave changes. EKG daily -Continue Bumex 2mg IV BID, as long as he continues to make urine Hyperglycemia in the setting of DM2 - hyperglycemia likely secondary to steroid use - BG has improved, transitioned off insulin gtt - Glycemic consult, appreciate recommendations - Lantus 25 BID with SSI Prostatitis: -cipro was stopped given renal function -urine culture 10/05 grew proteus vulgaris, repeat from 10/08 grew baylee glabrata - consider ID consult tomorrow -Unasyn renally dosed 1.5g q24h Wheeze: -continue home inhalers -ordered albuterol q6hr nebulizer HTN, Hx. HI: -continue metoprolol, aspirin -hold losartan given JUDI BPH: -continue tamsulosin, increased to 0.8mg -continue finasteride HLD: -continue rosuvastatin GERD: -continue protonix Anxiety: -continue clonapin, gabapentin Hypothyroidism -continue levothyroxine FENa: heart healthy DM2 fluid restriction 1.5L Code Status: Full code is POA DVT PPX: Eliquis curerntly being held for possible procedure (2) Acute kidney injury superimposed on CKD: (3) DVT (deep venous thrombosis): (4) Prostatitis: (5) Acute hyperkalemia: (6) Abdominal distension: (7) Benign prostatic hyperplasia with urinary obstruction: (8) Hypothyroidism: (9) Hypertension: (10) Dyslipidemia: (11) CHF (congestive heart failure): (12) GERD (gastroesophageal reflux disease): (13) Diabetes: Admission and Anticipated Discharge Date Admission Date: October 08, 2022 Supervising Physician Co-Signing Physician Notes Attending attestation Pt seen and examined in concert with Dr. Christian. In agreement with the documented findings as noted in the resident documentation with any exceptions or additions as noted here. Stable swelling and fatigue without new complaint. Somewhat tangential in conversation. Spouse at bedside, reporting patient behavior at baseline On examination, S1/S2 nl RRR no MCG. CTAB. Abd NT/ND BS+ve, 2+ pitting edema b/l LE JUDI on CKDIV in the setting of chronic HFpEF - nephrology consult - AIN vs. ATN with ?component of postrenal obstruction s/p cystoscopy with jeronimo placement. Creatinine has stabilized following steroid therapy, urine output continues. Trend BMP and continue steroid therapy per nephrology recommendations. Patient is open to dialysis, though not for a protracted course and with reservations regarding location and implementing provider. Per neprhology conversation, will re-visit in AM. Hyperkalemia - 5.9 (high of 6.9) - s/p multiple interventions. s/p isulin GTT as noted below. Tolerating bumetanide with output as noted. No EKG changes at present, daily EKG. DMII with hyperglycemia - ongoing hyperglycemia likely 2/2 methylpred. D/C Insulin GTT and SSI per glycemic control consultation. Prostatitis - continue Unasyn Else see resident documentation as noted. Subjective Pt seen at bedside this morning. No complainants. does note some increased delirium. Alert and oriented to person, place, date. Review of Systems Review of Systems: As per above Physical Exam Physical Exam: Constitutional: well-appearing, no acute distress HEENT: NCAT, no conjunctival injection CV: regular rhythm, no murmur appreciated, extremities well-perfused, 1+ LE edema Resp: CTABL, no wheezes/rales/rhonchi appreciated, no increased work of breathing GI: soft, nondistended, nontender, BS normoactive MSK: no gross deformities appreciated Skin: warm, dry, no rash appreciated Neuro: alert, oriented, no focal neurologic deficit appreciated Results & Data Results & Data Vital Signs (Past 12 Hours) Vital Signs Temp Pulse Pulse Resp BP BP Pulse Ox 10/11/22 07:11 64 10/11/22 05:54 36.5 C 74 160/73 H 96 10/11/22 04:40 36.4 C L 66 18 104/64 93 10/11/22 01:09 70 20 90 10/10/22 23:39 36.7 C 71 18 119/64 95 10/10/22 23:16 76 10/10/22 23:10 10/10/22 19:53 36.3 C L 70 20 160/54 H 94 O2 Del Method 10/11/22 07:11 10/11/22 05:54 Room Air 10/11/22 04:40 Room Air 10/11/22 01:09 Room Air 10/10/22 23:39 Room Air 10/10/22 23:16 10/10/22 23:10 Room Air 10/10/22 19:53 Room Air Resident Activity Tracking Resident Involvement: Resident Care Provided Care Provided: Adult Hospital Medicine (4) Prostatitis Prostatitis type: acute Qualified Code(s): N41.0 - Acute prostatitis (8) Hypothyroidism Hypothyroidism type: unspecified Qualified Code(s): E03.9 - Hypothyroidism, unspecified (9) Hypertension Hypertension type: essential hypertension Qualified Code(s): I10 - Essential (primary) hypertension (11) CHF (congestive heart failure) Heart failure chronicity: unspecified Heart failure type: unspecified Qualified Code(s): I50.9 - Heart failure, unspecified (12) GERD (gastroesophageal reflux disease) Esophagitis presence: esophagitis presence not specified Qualified Code(s): K21.9 - Gastro-esophageal reflux disease without esophagitis (13) Diabetes Diabetes mellitus complication status: with hyperglycemia Diabetes mellitus terminal carman insulin use: with terminal carman use Diabetes mellitus type: type 2 Qualified Code(s): E11.65 - Type 2 diabetes mellitus with hyperglycemia; Z79.4 - snf (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
--- NOTE | 2022-10-11 08:02 | Electrocardiogram Report ---
Test Reason : Blood Pressure : / mmHG Vent. Rate : 066 BPM Atrial Rate : 066 BPM P-R Int : 236 ms QRS Dur : 180 ms QT Int : 450 ms P-R-T Axes : 049 -66 024 degrees QTc Int : 471 ms Sinus rhythm with 1st degree A-V block Left axis deviation Left anterior fascicular block Right bundle branch block Abnormal ECG When compared with ECG of 09-OCT-2022 14:46, QRS duration has increased Criteria for Inferior infarct are no longer Present Confirmed by Travis Holloway ([id number]) on 10/10/2022 5:02:52 PM Referred By: REFERRED SELF Confirmed By:Asim Holloway
[2022-10-11] MEDS: clonazePAM 1 MG TAB PO SCH ×2 (08:35→21:34)
[2022-10-11] MEDS: UMECLIDINIUM BROMIDE 62.5MCG/BLISTER 7 PUFFS/INHALER INH SCH (08:35)
[2022-10-11] MEDS: FLUTICASONE/VILANTEROL 200/25MCG 14 PUFFS/INHALER INH SCH (08:36)
[2022-10-11] MEDS: CEROVITE ADV FORMULA TAB PO SCH (08:37)
[2022-10-11] MEDS: SODIUM BICARBONATE 650 MG TAB PO SCH ×2 (08:37→21:36)
[2022-10-11] MEDS: ASPIRIN 81 MG ECTAB PO SCH (08:37)
[2022-10-11] MEDS: GABAPENTIN 100 MG CAP PO SCH (08:37)
[2022-10-11] MEDS: SEVELAMER HCL 800 MG TABLET PO SCH ×3 (08:38→17:08)
[2022-10-11] MEDS: LANTUS PER UNIT CHARGE SQ SCH ×2 (08:38→17:10)
[2022-10-11] MEDS: INSULIN ASPART PER UNIT CHARGE SC SCH ×5 (08:38→21:35)
[2022-10-11] MEDS: methylPREDNISolone 1,000 MG in DEXTROSE 5% 250 ML IV SCH (08:56)
[2022-10-11 09:22] LABS: BUN Creatinine Ratio 14.3 (10-20); Calcium 8.4 mg/dl (8.6-10.3); Est GFR (Non-African American) 5.2 ml/min; Potassium 5.8 mmol/L (3.5-5.1)
--- NOTE | 2022-10-11 09:28 | Pharmacy Report ---
Pharmacy Glycemic Short Note 2 - Date of Service October 11, 2022 - Glycemic Short BSG Results (Last 24 hours): 10/10/22 10/10/22 10/10/22 11:21 11:22 14:22 Glucose POC Glucose 464 H* 551 H* 528 H* 10/10/22 10/10/22 10/10/22 14:23 14:23 16:03 Glucose 543 H* POC Glucose 534 H* 530 H* 10/10/22 10/10/22 10/10/22 17:31 18:35 19:52 Glucose POC Glucose 511 H* 532 H* 466 H* 10/10/22 10/10/22 10/10/22 20:44 20:55 21:37 Glucose 471 H* POC Glucose 443 H* 414 H* 10/10/22 10/10/22 10/10/22 22:42 23:33 23:35 Glucose POC Glucose 371 H* 413 H* 410 H* 10/11/22 10/11/22 10/11/22 00:59 01:40 02:45 Glucose POC Glucose 296 H 258 H 232 H 10/11/22 10/11/22 10/11/22 03:38 04:29 04:40 Glucose 171 H POC Glucose 199 H 169 H 10/11/22 10/11/22 10/11/22 05:45 06:32 08:25 Glucose POC Glucose 155 H 125 H 91 OUTPATIENT ANTIDIABETIC REGIMEN: * Lantus 52 units SC qAM, 50 units SC qPM * Glipizide 10 mg PO BID * Empagliflozin 10 mg PO daily HbA1c: 9.7% (12/14/21) ASSESSMENT: * YURI is an 86 year old male who presented to [facility] on 10/08 w/ fluid overload secondary to JUDI on CKD * BSGs significantly elevated yesterday (>500 mg/dL), due to inadequate initial insulin dosing and administration of methylprednisolone 1000 mg IV, pharmacy consulted for glycemic management in the afternoon * Insulin infusion initiated at time of consult for hyperglycemia and mild DKA on labs * Second of two doses of methylprednisolone IV given this morning PLAN FOR INPATIENT GLYCEMIC CONTROL: * Hold outpatient oral diabetes medications * Basal insulin * Lantus 25 units SQ BID (will give tonight's dose with dinner to help cover steroids) * Bolus insulin * NovoLog per scale ACHS or Q6hrs while NPO * Goal Range: Low 110 mg/dL - High 140 mg/dL * Correction Factor: 20 mg/dL/unit * Nutritional / Prandial insulin per carb ratio of 1 unit per 5 grams CHO consumed * checks this evening
[2022-10-11] MEDS: METOPROLOL TARTRATE 25 MG TAB PO SCH ×2 (09:56→21:36)
[2022-10-11] MEDS ORDERED: BUMETANIDE 2 MG in SYRINGE 0 ML IV ONE (10:00)
[2022-10-11] MEDS: PANTOprazole 40 MG TAB PO SCH ×2 (10:33→21:36)
[2022-10-11] MEDS: BUMETANIDE 2 MG in SYRINGE 0 ML IV SCH ×2 (10:33→17:06)
--- NOTE | 2022-10-11 10:39 | Electrocardiogram Report ---
Test Reason : Blood Pressure : / mmHG Vent. Rate : 071 BPM Atrial Rate : 071 BPM P-R Int : 216 ms QRS Dur : 168 ms QT Int : 438 ms P-R-T Axes : 047 -55 008 degrees QTc Int : 475 ms Sinus rhythm with 1st degree A-V block Left axis deviation Right bundle branch block possible Inferior infarct , age undetermined Abnormal ECG When compared with ECG of 10-OCT-2022 08:45, Inferior infarct is now Present Confirmed by Travis Holloway ([id number]) on 10/11/2022 10:39:43 AM Referred By: REFERRED SELF Confirmed By:Asim Holloway
--- NOTE | 2022-10-11 11:34 | Urology Progress Note ---
Date of Service October 11, 2022 Assessment & Plan (1) Acute kidney injury superimposed on CKD: (2) Urethral stricture: (3) Prostatitis: Plan 86yo/M admitted with JUDI on CKD, UTI/Prostatitis. CT abd pelvis on admission with no evidence of hydronephrosis and chronic appearing bladder wall thickening likely due to chronic outlet obstruction. 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 This was dilated at the bedside to facilitate catheter placement. He is afebrile and hemodynamically stable. Labs show no leukocytosis and creatinine up to 8.39 today. Nephrology is following, possible ATN in setting of recent infection vs AIN from recent antibiotic use. Current catheter should stay in place for maximum drainage and to allow time for healing. Will arrange outpatient voiding trial and subsequent discussion of urethral stricture. Urine culture 10/05 with proteus vulgaris. Repeat UCx 10/08 with sabi glabrata. Repeat UCx 10/09 negative. Blood cultures prelim no growth x 48 hours. On IV Unasyn, follow cultures. Given his complex acute issues and renal failure, consider ID consultation for recommendations given the Sabi glabrata on urine culture from 10/08. Continue supportive care and antibiotics. Urology will follow. Admission and Anticipated Discharge Date Admission Date: October 08, 2022 Subjective Patient examined at bedside this AM. Awake, resting in bed on arrival. No acute distress. at bedside. No acute complaints. Denies any issues with the Lopez catheter. Urine is clear yellow. Denies any pain or discomfort at present. Review of Systems Constitutional: as per Subjective / HPI Genitourinary: + as per Subjective / HPI Physical Exam Constitutional: no acute distress Respiratory: no respiratory distress Neurologic: awake Psychiatric: Orientation: alert and oriented x 3 Genitourinary: Lopez catheter in place draining yellow urine Results & Data Vital Signs (Past 12 Hours) Vital Signs Temp Pulse Pulse Resp BP BP Pulse Ox 10/11/22 10:42 36.3 C L 67 20 131/86 95 10/11/22 08:59 10/11/22 07:30 36.4 C L 66 18 174/65 H 95 10/11/22 07:26 67 16 96 10/11/22 07:11 64 10/11/22 05:54 36.5 C 74 160/73 H 96 10/11/22 04:40 36.4 C L 66 18 104/64 93 10/11/22 01:09 70 20 90 10/10/22 23:39 36.7 C 71 18 119/64 95 O2 Del Method 10/11/22 10:42 Room Air 10/11/22 08:59 Room Air 10/11/22 07:30 Room Air 10/11/22 07:26 Room Air 10/11/22 07:11 10/11/22 05:54 Room Air 10/11/22 04:40 Room Air 10/11/22 01:09 Room Air 10/10/22 23:39 Room Air PG Care Time/CCT Total # of Minutes Spent Total Time Spent with Patient: Total time spent is greater than 50% in coordination of care (as documented) at patient's floor/unit and/or counseling patient: Coding Level of Care Code 88297 SUB INP/OBS CARE 2/35MIN Diagnoses Acute kidney injury superimposed on CKD N17.9; N18.9 Urethral stricture N35.919 Prostatitis N41.0 Prostatitis type: acute (3) Prostatitis Prostatitis type: acute Qualified Code(s): N41.0 - Acute prostatitis
--- NOTE | 2022-10-11 12:22 | Nephrology Progress Note ---
Date of Service October 11, 2022 Assessment & Plan (1) Acute kidney injury superimposed on CKD: Plan: JUDI superimposed on advanced CKD. Prognosis for recovery is guarded. Non- oliguric.Aj remains hypervolemic and hyperkalemic. Thankfully potassium is improving. Volume status acceptable. For suspected AIN continue methylprednisolone 1000 mg IV daily x 3 doses. 3rd dose this AM. Start prednisone 60 mg daily tomorrow. Bumex 2 mg IV BID. Continue regular use of Patiromer as Rx. Repeat metabolic profile this afternoon. Maintain Lopez to gravity. DDx includes ATN in the setting of recent infections vs. AIN (potentially associated with ciprofloxacin or cephalexin). Cannot exclude potential anticoagulant-related nephropathy from Eliquis though this would be significantly less likely. Low potassium diet. Document I/O's. Repeat metabolic profile this afternoon. Reduce rosuvastatin to 10 mg daily. Limit Eliquis to 2.5 mg BID. Gabapentin reduced from 400 mg daily to 100 mg daily. Losartan held. Hold Eliquis for possible TDC tomorrow. (2) Acute hyperkalemia: Plan: Patiromer 8.4 grams daily. Low potassium diet. Bumex 2 mg IV BID. Repeat metabolic profile this afternoon. (3) Urethral stricture: Plan: Followed by Dr. Gunter as an outpatient. Maintain Lopez to gravity. Appreciate urology consultation. CT reviewed. No obvious obstructive nephropathy. (4) Prostatitis: Plan: Prior vulture +proteus vulgaris. Remains on Unasyn. Avoid cephalosporins and fluoroquinolones for now. (5) Goals of care, counseling/discussion: Plan: DNR/DNI. Aj has expressed interest in 'temporary' dialysis, if needed. Admission and Anticipated Discharge Date Admission Date: October 08, 2022 Subjective No acute events overnight. Aj was seen and evaluated with his at the bedside and Dr. Christian present in the room. We reviewed plan of care. Aj denies any acute complaints. He feels well. His appetite is good. He denies any difficulty breathing. He remains receptive to a trial of dialysis if needed but would prefer to avoid if able. Review of Systems Review of Systems: All systems reviewed & are unremarkable except as noted in HPI & below Physical Exam Constitutional: well developed and + frail appearing; no acute distress Eyes: no scleral abnormality and no corneal abnormality ENMT: Mouth: + dry oral mucous membranes; no oral mucosal abnormality Neck: normal visual inspection and trachea midline Respiratory: normal respiratory effort and + tachypneic Auscultation: + wheezes Cardiovascular: Rate/Rhythm: regular rate Heart Sounds: normal S1 and normal S2 Extremities: + edema and + varicosities Musculoskeletal: Extremities: no cyanosis and no clubbing Skin: + turgor decreased; no jaundice Neurologic: Motor/Sensory: no tremor and no asterixis Psychiatric: Orientation: alert and oriented x 3 Results & Data Vital Signs (Past 12 Hours) Vital Signs Temp Pulse Pulse Resp BP BP Pulse Ox 10/11/22 10:42 36.3 C L 67 20 131/86 95 10/11/22 08:59 10/11/22 07:30 36.4 C L 66 18 174/65 H 95 10/11/22 07:26 67 16 96 10/11/22 07:11 64 10/11/22 05:54 36.5 C 74 160/73 H 96 10/11/22 04:40 36.4 C L 66 18 104/64 93 10/11/22 01:09 70 20 90 O2 Del Method 10/11/22 10:42 Room Air 10/11/22 08:59 Room Air 10/11/22 07:30 Room Air 10/11/22 07:26 Room Air 10/11/22 07:11 10/11/22 05:54 Room Air 10/11/22 04:40 Room Air 10/11/22 01:09 Room Air Laboratory Results Laboratory Results - last 24 hr 10/10/22 10/10/22 10/10/22 14:22 14:23 14:23 WBC RBC Hgb Hct MCV MCH MCHC RDW Std Deviation RDW Coeff of Adrian Plt Count MPV Immature Gran % (Auto) Neut % (Auto) Lymph % (Auto) Platte % (Auto) Eos % (Auto) Baso % (Auto) Neut # (Auto) Lymph # (Auto) Platte # (Auto) Eos # (Auto) Baso # (Auto) Immature Gran # (Auto) Sodium 121 L Potassium 6.4 H* Chloride 91 L Carbon Dioxide 15 L Anion Gap 15 H BUN 104 H Creatinine 7.49 H* Est Cr Clr Drug Dosing 8.1 Est GFR ( Amer) 6.9 Est GFR (Non-Af Amer) 5.9 BUN/Creatinine Ratio 13.9 Glucose 543 H* POC Glucose 528 H* Calcium 8.1 L Phosphorus 8.7 H Cancelled Magnesium 2.4 Cancelled 10/10/22 10/10/22 10/10/22 14:23 16:03 17:31 WBC RBC Hgb Hct MCV MCH MCHC RDW Std Deviation RDW Coeff of Adrian Plt Count MPV Immature Gran % (Auto) Neut % (Auto) Lymph % (Auto) Platte % (Auto) Eos % (Auto) Baso % (Auto) Neut # (Auto) Lymph # (Auto) Platte # (Auto) Eos # (Auto) Baso # (Auto) Immature Gran # (Auto) Sodium Potassium Chloride Carbon Dioxide Anion Gap BUN Creatinine Est Cr Clr Drug Dosing Est GFR ( Amer) Est GFR (Non-Af Amer) BUN/Creatinine Ratio Glucose POC Glucose 534 H* 530 H* 511 H* Calcium Phosphorus Magnesium 10/10/22 10/10/22 10/10/22 18:35 19:52 20:44 WBC RBC Hgb Hct MCV MCH MCHC RDW Std Deviation RDW Coeff of Adrian Plt Count MPV Immature Gran % (Auto) Neut % (Auto) Lymph % (Auto) Platte % (Auto) Eos % (Auto) Baso % (Auto) Neut # (Auto) Lymph # (Auto) Platte # (Auto) Eos # (Auto) Baso # (Auto) Immature Gran # (Auto) Sodium Potassium Chloride Carbon Dioxide Anion Gap BUN Creatinine Est Cr Clr Drug Dosing Est GFR ( Amer) Est GFR (Non-Af Amer) BUN/Creatinine Ratio Glucose POC Glucose 532 H* 466 H* 443 H* Calcium Phosphorus Magnesium 10/10/22 10/10/22 10/10/22 20:55 21:37 22:42 WBC RBC Hgb Hct MCV MCH MCHC RDW Std Deviation RDW Coeff of Adrian Plt Count MPV Immature Gran % (Auto) Neut % (Auto) Lymph % (Auto) Platte % (Auto) Eos % (Auto) Baso % (Auto) Neut # (Auto) Lymph # (Auto) Platte # (Auto) Eos # (Auto) Baso # (Auto) Immature Gran # (Auto) Sodium 122 L Potassium 6.3 H* Chloride 90 L Carbon Dioxide 17 L Anion Gap 15 H BUN 111 H Creatinine 7.92 H* D Est Cr Clr Drug Dosing 7.7 Est GFR ( Amer) 6.4 Est GFR (Non-Af Amer) 5.6 BUN/Creatinine Ratio 14.0 Glucose 471 H* POC Glucose 414 H* 371 H* Calcium 8.2 L Phosphorus Magnesium 10/10/22 10/10/22 10/11/22 23:33 23:35 00:59 WBC RBC Hgb Hct MCV MCH MCHC RDW Std Deviation RDW Coeff of Adrian Plt Count MPV Immature Gran % (Auto) Neut % (Auto) Lymph % (Auto) Platte % (Auto) Eos % (Auto) Baso % (Auto) Neut # (Auto) Lymph # (Auto) Platte # (Auto) Eos # (Auto) Baso # (Auto) Immature Gran # (Auto) Sodium Potassium Chloride Carbon Dioxide Anion Gap BUN Creatinine Est Cr Clr Drug Dosing Est GFR ( Amer) Est GFR (Non-Af Amer) BUN/Creatinine Ratio Glucose POC Glucose 413 H* 410 H* 296 H Calcium Phosphorus Magnesium 10/11/22 10/11/22 10/11/22 01:40 02:45 03:38 WBC RBC Hgb Hct MCV MCH MCHC RDW Std Deviation RDW Coeff of Adrian Plt Count MPV Immature Gran % (Auto) Neut % (Auto) Lymph % (Auto) Platte % (Auto) Eos % (Auto) Baso % (Auto) Neut # (Auto) Lymph # (Auto) Platte # (Auto) Eos # (Auto) Baso # (Auto) Immature Gran # (Auto) Sodium Potassium Chloride Carbon Dioxide Anion Gap BUN Creatinine Est Cr Clr Drug Dosing Est GFR ( Amer) Est GFR (Non-Af Amer) BUN/Creatinine Ratio Glucose POC Glucose 258 H 232 H 199 H Calcium Phosphorus Magnesium 10/11/22 10/11/22 10/11/22 04:29 04:29 04:40 WBC 12.58 H RBC 3.80 L Hgb 12.1 L Hct 33.5 L MCV 88.2 MCH 31.8 MCHC 36.1 H RDW Std Deviation 42.5 RDW Coeff of Adrian 13.2 Plt Count 181 MPV 9.5 Immature Gran % (Auto) 0.7 Neut % (Auto) 91.2 Lymph % (Auto) 5.1 Platte % (Auto) 2.9 Eos % (Auto) 0.0 Baso % (Auto) 0.1 Neut # (Auto) 11.47 H Lymph # (Auto) 0.64 L Platte # (Auto) 0.37 Eos # (Auto) 0.00 Baso # (Auto) 0.01 Immature Gran # (Auto) 0.09 Sodium 125 L Potassium 5.9 H Chloride 95 L Carbon Dioxide 16 L Anion Gap 14 H BUN 111 H Creatinine 8.20 H* Est Cr Clr Drug Dosing 7.4 Est GFR ( Amer) 6.2 Est GFR (Non-Af Amer) 5.3 BUN/Creatinine Ratio 13.5 Glucose 171 H POC Glucose 169 H Calcium 8.5 L Phosphorus Magnesium 2.4 10/11/22 10/11/22 10/11/22 05:45 06:32 08:25 WBC RBC Hgb Hct MCV MCH MCHC RDW Std Deviation RDW Coeff of Adrian Plt Count MPV Immature Gran % (Auto) Neut % (Auto) Lymph % (Auto) Platte % (Auto) Eos % (Auto) Baso % (Auto) Neut # (Auto) Lymph # (Auto) Platte # (Auto) Eos # (Auto) Baso # (Auto) Immature Gran # (Auto) Sodium Potassium Chloride Carbon Dioxide Anion Gap BUN Creatinine Est Cr Clr Drug Dosing Est GFR ( Amer) Est GFR (Non-Af Amer) BUN/Creatinine Ratio Glucose POC Glucose 155 H 125 H 91 Calcium Phosphorus Magnesium 10/11/22 10/11/22 10/11/22 08:42 09:36 11:23 WBC RBC Hgb Hct MCV MCH MCHC RDW Std Deviation RDW Coeff of Adrian Plt Count MPV Immature Gran % (Auto) Neut % (Auto) Lymph % (Auto) Platte % (Auto) Eos % (Auto) Baso % (Auto) Neut # (Auto) Lymph # (Auto) Platte # (Auto) Eos # (Auto) Baso # (Auto) Immature Gran # (Auto) Sodium 125 L Potassium 5.8 H Chloride 95 L Carbon Dioxide 17 L Anion Gap 13 H BUN 120 H Creatinine 8.39 H* Est Cr Clr Drug Dosing 373.0 Est GFR ( Amer) 6.0 Est GFR (Non-Af Amer) 5.2 BUN/Creatinine Ratio 14.3 Glucose 93 POC Glucose 137 H 245 H Calcium 8.4 L Phosphorus Magnesium PG Care Time/CCT Total # of Minutes Spent Total Time Spent with Patient: Total time spent is greater than 50% in coordination of care (as documented) at patient's floor/unit and/or counseling patient: Coding Level of Care Code 73400 SUB INP/OBS CARE 3/50MIN Diagnoses Acute kidney injury superimposed on CKD N17.9; N18.9 Acute hyperkalemia E87.5 Urethral stricture N35.919 Prostatitis N41.0 Prostatitis type: acute Goals of care, counseling/discussion Z71.89 (4) Prostatitis Prostatitis type: acute Qualified Code(s): N41.0 - Acute prostatitis
[2022-10-11] MEDS: PATIROMER CALCIUM SORBITEX 8.4 GM PACK PO SCH (12:27)
[2022-10-11 15:57] LABS: BUN Creatinine Ratio 14.7 (10-20); Calcium 8.2 mg/dl (8.6-10.3); Creatinine Clr Calc Pharmacy 7.6 ml/min; Est GFR (African American) 6.3 ml/min; Est GFR (Non-African American) 5.5 ml/min; Potassium 5.7 mmol/L (3.5-5.1)
[2022-10-11 16:36] LABS: BUN Creatinine Ratio 14.9 (10-20); Calcium 8.2 mg/dl (8.6-10.3); Creatinine Clr Calc Pharmacy 7.8 ml/min; Est GFR (African American) 6.5 ml/min; Est GFR (Non-African American) 5.6 ml/min; Potassium 5.9 mmol/L (3.5-5.1)
[2022-10-11] MEDS: FINASTERIDE 5 MG TAB PO SCH (21:35)
[2022-10-11] MEDS: ROSUVASTATIN CALCIUM 10 MG TAB PO SCH (21:36)
[2022-10-11] MEDS: TAMSULOSIN HCL 0.4 MG CAP PO SCH (21:36)
[2022-10-12] MEDS: ALBUTEROL 0.083% NEBU SOLN 3 ML VIAL NEB SCH ×4 (00:52→19:14)
[2022-10-12] MEDS: INSULIN ASPART PER UNIT CHARGE SC SCH ×6 (01:06→21:24)
[2022-10-12] MEDS ORDERED: INSULIN HUMAN REGULAR PER UNIT 5 UNITS in SYRINGE 4.95 ML IV ONE (01:15)
[2022-10-12] MEDS: AMPICILLIN/SULBACTAM SOD 1,500 MG in 0.9 % SODIUM CHLORIDE 100 ML IV SCH (01:19)
[2022-10-12] MEDS: LEVOTHYROXINE SODIUM 88 MCG TABLET PO SCH (05:44)
[2022-10-12 07:16] LABS: Hematocrit (blood only) 32.1 % (42.0-52.0); Hemoglobin 11.6 g/dl (14.0-18.0); Mean Corpuscular Hemoglobin 31.7 pg (25.0-34.0); Mean Corpuscular Hgb Conc 36.1 g/dL (32.0-36.0); Mean Corpuscular Volume 87.7 fL (80.0-100.0); Mean Platelet Volume 9.4 fL (9.4-12.4); Platelet Count 193 K/uL (130-400); RDW Coefficient of Variation 13.3 % (11.5-14.5); RDW Standard Deviation 43.2 fL (36.4-46.3); Red Blood Count 3.66 M/uL (4.70-6.10); White Blood Count 8.64 K/ul (4.8-10.8)
--- NOTE | 2022-10-12 07:21 | Hospitalist Progress Note ---
Date of Service October 12, 2022 Assessment & Plan (1) Fluid overload: Plan: 86yo Male with PMH CHF EF 60-65%, DM2, asthma, COPD, Hx. NH, DVT, hypothyroidism, CKD, HTN, HLD, chronic leg wound, GERD here for increased swelling in face, extremities, abd found to have JDUI on CKD. JUDI on CKD: -concern for ATN vs AIN with component of post-renal obstructive -Creat 6.19 on admission (baseline 2), continues to trend up -Hyponatremic, hyperkalemic. Fractional excretion of sodium 0.9% -CT A&P showed no evidence of hydronephrosis. Chronic appearing bladder wall thickening is likely due to chronic outlet obstruction -Urology consulted; Jeronimo placed. Allow for catheter for at least 1 week, can follow up w/ urology outpatient for voiding trial. -Nephrology consulted: -Possible ATN in setting of recent infection vs AIN from recent antibiotic use. 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 Holding Eliquis PermCath placed today with intent to start dialysis tomorrow -trend BMP Hyperkalemia: -potassium 6.1 on admission, started to decline with insulin gtt - Received one dose of 5mg Lokelma on admission -Patient given multiple doses of insulin 10U w/ D5, calcium gluconate -started on Patiromer 8.4gm daily. -Initial EKG on admission without significant T-wave changes. EKG daily -Continue Bumex 2mg IV BID, as long as he continues to make urine Hyperglycemia in the setting of DM2 - hyperglycemia likely secondary to steroid use - Glycemic consult, appreciate recommendations - Lantus 50 units qAM with SSI Prostatitis: -cipro was stopped given renal function -urine culture 10/05 grew proteus vulgaris, repeat from 10/08 grew baylee glabrata - ID consulted. They do not believe he has prostatitis, will hold on further antibiotics - ID does not recommend treatment of baylee glabrata in urine Wheeze: -continue home inhalers -ordered albuterol q6hr nebulizer HTN, Hx. NH: -continue metoprolol, aspirin -hold losartan given JUDI BPH: -continue tamsulosin, increased to 0.8mg -continue finasteride HLD: -continue rosuvastatin GERD: -continue protonix Anxiety: -continue clonapin, gabapentin Hypothyroidism -continue levothyroxine FENa: heart healthy DM2 fluid restriction 1.5L Code Status: DNR/DNI is POA DVT PPX: Eliquis currently being held for possible procedure (2) Acute kidney injury superimposed on CKD: (3) DVT (deep venous thrombosis): (4) Prostatitis: (5) Acute hyperkalemia: (6) Abdominal distension: (7) Benign prostatic hyperplasia with urinary obstruction: (8) Hypothyroidism: (9) Hypertension: (10) Dyslipidemia: (11) CHF (congestive heart failure): (12) GERD (gastroesophageal reflux disease): (13) Diabetes: Admission and Anticipated Discharge Date Admission Date: October 08, 2022 Supervising Physician Co-Signing Physician Notes Attending attestation Pt seen and examined in concert with Dr. Christian. In agreement with the documented findings as noted in the resident documentation with any exceptions or additions as noted here. Stable swelling and fatigue without new complaint. Open to permacath insertion in PM today. Tangential in conversation. Spouse at bedside, reporting patient behavior at baseline On examination, S1/S2 nl RRR no MCG. CTAB. Abd NT/ND BS+ve, 2+ pitting edema b/l LE. LLE wound C/D/I JUDI on CKDIV in the setting of chronic HFpEF - nephrology consult - AIN vs. ATN with ?component of postrenal obstruction s/p cystoscopy with jeronimo placement. For permacath placement today, dialysis per nephrology. Trend BMP and continue steroid therapy per nephrology recommendations. Hyperkalemia - 5.7 (high of 6.9) - s/p multiple interventions. Stable. Upcoming dialysis. DMII with hyperglycemia - ongoing hyperglycemia likely 2/2 methylpred. SSI per glycemic control consultation. Urinary tract infection - ID, urology consult - completed course of abx, no indication at present to treat funguria. D/C abx and monitor for changes. Else see resident documentation as noted. Tracy Downing was seen at bedside this morning. was present. No complainants. Eating well. Still making urine. Review of Systems Review of Systems: As per above Physical Exam Physical Exam: Constitutional: well-appearing, no acute distress HEENT: NCAT, no conjunctival injection CV: regular rhythm, no murmur appreciated, extremities well-perfused, 2+ LE edema Resp: CTABL, no wheezes/rales/rhonchi appreciated, no increased work of breathing GI: soft, nondistended, nontender, BS normoactive MSK: no gross deformities appreciated Skin: warm, dry, no rash appreciated Neuro: alert, oriented, no focal neurologic deficit appreciated Results & Data Results & Data Vital Signs (Past 12 Hours) Vital Signs Temp Pulse Pulse Resp BP BP Pulse Ox 10/12/22 06:51 80 18 94 10/12/22 04:25 36.3 C L 77 20 118/61 93 10/12/22 00:52 76 19 95 10/12/22 00:14 36.8 C 73 20 165/71 H 96 10/11/22 23:22 63 10/11/22 23:08 10/11/22 19:48 36.6 C 68 18 180/72 H 96 O2 Del Method 10/12/22 06:51 Room Air 10/12/22 04:25 Room Air 10/12/22 00:52 Room Air 10/12/22 00:14 Room Air 10/11/22 23:22 10/11/22 23:08 Room Air 10/11/22 19:48 Room Air Resident Activity Tracking Resident Involvement: Resident Care Provided Care Provided: Adult Hospital Medicine (4) Prostatitis Prostatitis type: acute Qualified Code(s): N41.0 - Acute prostatitis (8) Hypothyroidism Hypothyroidism type: unspecified Qualified Code(s): E03.9 - Hypothyroidism, unspecified (9) Hypertension Hypertension type: essential hypertension Qualified Code(s): I10 - Essential (primary) hypertension (11) CHF (congestive heart failure) Heart failure chronicity: unspecified Heart failure type: unspecified Qualified Code(s): I50.9 - Heart failure, unspecified (12) GERD (gastroesophageal reflux disease) Esophagitis presence: esophagitis presence not specified Qualified Code(s): K21.9 - Gastro-esophageal reflux disease without esophagitis (13) Diabetes Diabetes mellitus complication status: with hyperglycemia Diabetes mellitus fci insulin use: with fci use Diabetes mellitus type: type 2 Qualified Code(s): E11.65 - Type 2 diabetes mellitus with hyperglycemia; Z79.4 - vp analytics (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
[2022-10-12 07:46] LABS: Albumin Globulin Ratio 0.7 (0.9-2); Albumin Level 2.3 gm/dl (3.4-5.0); Bilirubin,Total 0.3 mg/dl (0.2-1.0); Calcium 8.3 mg/dl (8.6-10.3); Creatinine Clr Calc Pharmacy 7.3 ml/min; Echinocytes 2+; Est GFR (African American) 6.1 ml/min; Est GFR (Non-African American) 5.3 ml/min; Globulin 3.1 gm/dl (2.5-4.0); Immature Granulocytes # (auto) 0.05 K/uL (0.01-0.20); Immature Granulocytes % (auto) 0.6 %; Lymphocytes # (auto) 0.44 K/uL (1.2-3.4); Lymphocytes % (auto) 5.1 %; Magnesium 2.4 mg/dl (1.7-2.4); Monocytes # (auto) 0.31 K/uL (0.11-0.59); Monocytes % (auto) 3.6 %; Neutrophils # (auto) 7.84 K/uL (1.40-6.50); Neutrophils % (auto) 90.7 %; Phosphorus 9.5 mg/dl (2.5-4.9); Potassium 5.7 mmol/L (3.5-5.1); Total Protein 5.4 gm/dl (6.0-8.3)
[2022-10-12 07:53] LABS: Estimated Average Glucose 283 mg/dl; Hemoglobin A1C 11.5 % (4.5-5.6)
[2022-10-12] MEDS ORDERED: LANTUS PER UNIT CHARGE SQ ONE (08:00)
[2022-10-12] MEDS ORDERED: INSULIN HUMAN REGULAR PER UNIT 10 UNITS in SYRINGE 9.9 ML IV ONE (08:00)
[2022-10-12] MEDS: SEVELAMER HCL 800 MG TABLET PO SCH ×3 (08:32→17:43)
[2022-10-12] MEDS: PANTOprazole 40 MG TAB PO SCH ×2 (08:33→21:26)
[2022-10-12] MEDS: CEROVITE ADV FORMULA TAB PO SCH ×2 (08:33→21:27)
[2022-10-12] MEDS: METOPROLOL TARTRATE 25 MG TAB PO SCH ×2 (08:33→21:26)
[2022-10-12] MEDS: SODIUM BICARBONATE 650 MG TAB PO SCH ×2 (08:33→21:28)
[2022-10-12] MEDS: ASPIRIN 81 MG ECTAB PO SCH (08:33)
[2022-10-12] MEDS: GABAPENTIN 100 MG CAP PO SCH (08:34)
[2022-10-12] MEDS: UMECLIDINIUM BROMIDE 62.5MCG/BLISTER 7 PUFFS/INHALER INH SCH (08:37)
[2022-10-12] MEDS: FLUTICASONE/VILANTEROL 200/25MCG 14 PUFFS/INHALER INH SCH (08:37)
[2022-10-12] MEDS: BUMETANIDE 2 MG in SYRINGE 0 ML IV SCH ×2 (08:38→17:44)
[2022-10-12] MEDS: clonazePAM 1 MG TAB PO SCH ×2 (08:39→21:26)
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
--- NOTE | 2022-10-12 10:27 | Electrocardiogram Report ---
Test Reason : Blood Pressure : / mmHG Vent. Rate : 078 BPM Atrial Rate : 078 BPM P-R Int : 210 ms QRS Dur : 160 ms QT Int : 414 ms P-R-T Axes : 046 -58 019 degrees QTc Int : 471 ms Sinus rhythm with 1st degree A-V block Left axis deviation Right bundle branch block Abnormal ECG When compared with ECG of 11-OCT-2022 05:51, Criteria for Inferior infarct are no longer Present Confirmed by Travis Holloway [id number]) on 10/12/2022 10:27:02 AM Referred By: REFERRED SELF Confirmed By:Asim Holloway
--- NOTE | 2022-10-12 12:48 | Pharmacy Report ---
Pharmacy Glycemic Short Note 2 - Date of Service October 12, 2022 - Glycemic Short BSG Results (Last 24 hours): 10/11/22 10/11/22 10/11/22 14:51 15:55 16:31 Glucose 208 H 218 H POC Glucose 201 H 10/11/22 10/11/22 10/12/22 20:22 21:10 00:53 Glucose POC Glucose 303 H* 313 H* 357 H* 10/12/22 10/12/22 10/12/22 00:55 03:49 03:50 Glucose POC Glucose 320 H* 356 H* 343 H* 10/12/22 10/12/22 10/12/22 06:34 07:57 11:39 Glucose 324 H* POC Glucose 292 H 257 H OUTPATIENT ANTIDIABETIC REGIMEN: * Lantus 52 units SC qAM, 50 units SC qPM * Glipizide 10 mg PO BID * Empagliflozin 10 mg PO daily HbA1c: 9.7% (12/14/21) ASSESSMENT: 10/12/22: * BSGs poorly controlled yesterday - steroid-induced hyperglycemia * Methylprednisolone has been discontinued (last dose 10/11) - nephrology holding off on additional steroids at this time * Patient agreeable to temporary dialysis, Permcath insertion today * BSGs remain elevated w/ lunch, but trending down from > 300 mg/dL this morning * Given steroid discontinuation, will hold off on further tightening of Novolog at this time * Maintain ACHS and 00,04 checks tonight 10/11/22: * LC is an 86 year old male who presented to [facility] ED on 10/08 w/ fluid overload secondary to JUDI on CKD * BSGs significantly elevated yesterday (>500 mg/dL), due to inadequate initial insulin dosing and administration of methylprednisolone 1000 mg IV, pharmacy consulted for glycemic management in the afternoon * Insulin infusion initiated at time of consult for hyperglycemia and mild DKA on labs * Second of two doses of methylprednisolone IV given this morning PLAN FOR INPATIENT GLYCEMIC CONTROL: * Hold outpatient oral diabetes medications * Basal insulin * Lantus 50 units SC x 1 * Reassess in AM * Bolus insulin * NovoLog per scale ACHS or Q6hrs while NPO * Goal Range: Low 110 mg/dL - High 140 mg/dL * Correction Factor: 15 mg/dL/unit * Nutritional / Prandial insulin per carb ratio of 1 unit per 5 grams CHO consumed * 00,04 checks this evening
[2022-10-12] MEDS: PATIROMER CALCIUM SORBITEX 8.4 GM PACK PO SCH (12:51)
--- NOTE | 2022-10-12 14:39 | Infectious Disease Consult ---
Date of Consultation October 12, 2022 Assessment & Plan (1) UTI (urinary tract infection): (2) Acute kidney injury superimposed on CKD: Plan 86 yo M with history of HFpEF, CAD s/p CABG, DM2, CKD, COPD, asthma, afib, BPH, bilateral TKA, recent cephalexin for ? LLE cellulitis and ciprofloxacin for ? prostatitis, who presented on 10/08 with increased swelling in his face, extremities, abdomen, found to have JUDI on CKD, now initiating HD. He had presented to the ED on 09/26 for ruptured LLE blister, was afebrile without leukocytosis, and was discharged with cephalexin x 7 days for possible early cellulitis. He then presented to the ED on 10/05 with hematuria, WBC 12, UA 10-30 WBCs, CT with unchanged diffuse bladder wall thickening compatible with chronic outlet obstruction, and was discharged with cipro for prostatitis. With further questioning of pt's , pt did have some dysuria at that time. On chart review, no mention of rectal exam/prostate tenderness, no prostatic abscess on CT. The 10/05 UCx ended up growing Proteus vulgaris, sensitive to cipro. On this presentation, he was afebrile, VSS, WBC 9.23, Cr 5.57 (baseline ~2). UA with >30 WBCs, 0-4 RBCs, >30 epis, and UCx grew 40K Sabi glabrata complex. CT A/P without contrast showed no acute abnormality, no hydronephrosis, chronic appearing bladder wall thickening. Pt's cipro was stopped and he was started on Unasyn instead to cover the Proteus. Urology was consulted and performed a bedside cystoscopy on 10/09, noting a bulbar urethral stricture which they dilated and a false passage, and placed a jeronimo with 200 cc urine output. Repeat 10/09 UA with 5-10 WBCs, and UCx negative. Plan is to keep jeronimo in place for at least 1 week so false passage can heal. Nephrology was consulted, with c/f AIN associated with recent cipro or cephalexin for which he was started on methylpred. His Cr continued to rise, so pt is to initiate HD on 10/13. Micro: 10/09 UA 5-10 WBCs. UCx: NG 10/08 UA >30 WBCs. UCx: Sabi glabrata complex 10/08 BCx x2: NGTD 10/05 UA >30 WBCs. UCx: Proteus vulgaris. Abx: Unasyn 10/08 - present Problems: #Proteus vulgaris UTI Recommendations: -Pt has been adequately treated for a possible Proteus vulgaris UTI with ~7 days of antibiotics. Unclear to me how he got a diagnosis of prostatitis, but it does not appear that he has prostatitis (which would require a longer duration of antibiotics). Will therefore stop amp-sulbactam at this time, as it could also be contributing to worsening kidney function -Would not treat the Sabi glabrata in pt's urine culture from 10/08--likely representing colonization/contamination here. Also did not grow on repeat UCx from 10/09. Discussed with primary team. Will sign off. Please page [facility] [facility] with further questions. Consultation Information This patient recommendation is based on a telemedicine consult request which was completed asynchronously through chart review and information provided by the primary physician. The patient was not seen or examined today. The evaluation is consultative in nature and all patient care and treatment decisions can either be accepted or rejected by the patient's primary hospital-based treating physician using their own independent medical judgment for their patient. Fixed [employer] Dealer contact information: Please call [facility] . (Phone Number For Physician Use Only) Time Spent Reviewing Chart: 31+ minutes History of Present Illness Reason for Consultation: positive urine culture Requesting Physician: Dr. Travis Bennett Attending Physician: Gary Bennett MD History of Present Illness Telepresenter not available to see patient, so e-consult was performed. 86 yo M with history of HFpEF, CAD s/p CABG, DM2, CKD, COPD, asthma, afib, BPH, bilateral TKA, recent cephalexin for ? LLE cellulitis and ciprofloxacin for ? prostatitis, who presented on 10/08 with increased swelling in his face, extremities, abdomen. On presentation, pt was afebrile, VSS. Labs showed WBC 9.23, K 6.1, Cr 5.57 (from baseline ~2), COVID-19/flu/RSV negative. UA with >30 WBCs, 0-4 RBCs, >30 epis, and UCx grew 40K Sabi glabrata complex. CXR unr emarkable. CT A/P without contrast showed no acute abnormality, no hydronephrosis, chronic appearing bladder wall thickening likely due to chronic outlet obstruction (although superimposed cystitis cannot be entirely excluded). Pt's ciprofloxacin was stopped, and he was started on Unasyn instead. Jeronimo catheter placement was attempted by nursing staff, but unsuccessful. Urology was consulted and on 10/09 performed a bedside cystoscopy noting a bulbar urethral stricture which they dilated, and a false passage, and placed a jeronimo with 200 cc urine output. Plan is to keep the jeronimo in place for at least 1 week for the false passage to heal. 10/09 UA had 5-10 WBCs, and UCx NG. Nephrology was consulted--there is concern for AIN (associated with recent cipro or cephalxin), or ATN in setting of recent infections. He was started on methlpred for suspected AIN. With continued rising Cr to 8.3, pt is having permacath placement to start HD on 10/13. Of note, pt recently presented to the ED on 09/26 with LLE blister that had ruptured that morning--he and his noted a small amount of bleeding, and due to him being on Xarelto due to DVT, they felt he should be evaluated. Per chart review, there was a superficial 1 cm skin tear just deep to the blister, possibly a subtle erythematous hue about the LLE. He was afebrile without leukocytosis. LLE venous duplex showed interval resolution of DVT. He was discharged with cephalexin 500 mg BID x 7 days for a possible early cellulitis. He presented again to the ED on 10/05 with hematuria, which he noticed upon awakening that day. He denied any difficulty passing urine. He was afebrile, with WBC 12.19 (84% neutrophils), Cr 2.34. UA with 10-30 WBCs, >30 RBCs. He was discharged with ciprofloxacin 500 mg daily x 14 days for prostatitis. UCx ended up growing Proteus vulgaris, sensitive to cipro. Allergies Allergy/AdvReac Type Severity Reaction Status Date / Time semaglutide [From Ozempic] AdvReac Severe NAUSEA/VOMI Verified 10/08/22 17:29 TING/ANOREX IA amlodipine AdvReac Intermediate SWELLING Verified 10/08/22 17:29 OF ANKLES ropinirole AdvReac Intermediate CHANGE IN Verified 10/08/22 17:29 MENTAL STATUS Home Medications Medication Instructions Recorded Confirmed Type albuterol sulfate 90 mcg/actuation 2 puffs inhalation QID PRN 01/10/19 10/08/22 History aerosol inhaler shortness of breath or wheezing levothyroxine 88 mcg tablet 88 mcg PO DAILYBB #90 tabs 01/10/19 10/08/22 History potassium chloride 20 mEq 20 meq PO BID 01/10/19 10/08/22 History tablet,extended release finasteride 5 mg tablet 5 mg PO HS 04/23/19 10/08/22 History losartan 25 mg tablet 25 mg PO QAM 04/23/19 10/08/22 History tamsulosin 0.4 mg capsule 0.4 mg PO HS 04/23/19 10/08/22 History gabapentin 100 mg capsule See Rx Instructions .Route .COMPLEX 12/16/20 10/08/22 History aspirin 81 mg tablet,delayed 81 mg PO DAILY 10/11/21 10/08/22 History release pantoprazole 20 mg tablet,delayed 20 mg PO BID 02/07/22 10/08/22 History release glipizide 10 mg tablet 10 mg PO BID 03/29/22 10/08/22 History insulin glargine 100 unit/mL (3 See Rx Instructions .Route .COMPLEX 04/12/22 10/08/22 History mL) subcutaneous pen (Lantus Solostar U-100 Insulin) acetaminophen 500 mg tablet 1,000 mg PO Q6H PRN PAIN/FEVER 05/28/22 10/08/22 History (Tylenol Extra Strength) bumetanide 2 mg tablet 2 mg PO BID 05/28/22 10/08/22 History clonazepam 1 mg tablet 1 mg PO BID 05/28/22 10/08/22 History diphenhydramine HCl 25 mg capsule 25 mg PO BID PRN NEEDED 05/28/22 10/08/22 History (Benadryl) fluticasone 500 mcg-salmeterol 50 1 inh inhalation BID 05/28/22 10/08/22 History mcg/dose blistr powdr for inhalation metoprolol tartrate 50 mg tablet 25 mg PO BID 05/28/22 10/08/22 History multivitamin with minerals 1 tab PO DAILY 05/28/22 10/08/22 History rosuvastatin 20 mg tablet 20 mg PO HS 05/28/22 10/08/22 History tiotropium bromide 2.5 2 puff inhalation DAILY 05/28/22 10/08/22 History mcg/actuation mist for inhalation vitamins A,C,C-xhdp-anwybb 2,148 1 tab PO DAILY 05/28/22 10/08/22 History mcg-113 mg-45 mg-17.4 mg tablet (PreserVision AREDS) apixaban 5 mg tablet (Eliquis) 5 mg PO BID 09/26/22 10/08/22 History ciprofloxacin HCl 500 mg tablet 500 mg PO DAILY #14 tabs 10/05/22 10/08/22 Rx (Cipro) cephalexin 500 mg capsule 500 mg PO BID 10/08/22 10/08/22 History empagliflozin 10 mg tablet 10 mg PO DAILY 10/08/22 10/08/22 History Patient History Medical History Acute bronchopneumonia Acute urinary retention [id number] kidney injury AMS (altered mental status) Anxiety Aortic stenosis Mild per 03/06/19 stress ECHO Asthma Uses rescue inhaler a couple times per week Atrial fibrillation Follows with Dr. Maile Soares Blindness of left eye BPH (benign prostatic hyperplasia) CAD (coronary artery disease) Angioplasty ~1993, CABG x 3 2013 (GALINDO to LAD, SVG to PDA, SVG to OM) CHF (congestive heart failure) Chronic kidney disease Follows with Dr. Dixon Chronic obstructive pulmonary disease Diabetes Type 2 IDDM Foot ulcer GERD (gastroesophageal reflux disease) Herpes zoster Hiatal hernia Hyperlipidemia Hypertension Hypervolemia Hypothyroidism Leukocytosis Macular degeneration Myocardial infarct ~1993 Peripheral neuropathy Rupture of left distal biceps tendon hx - no surgery Secondary hyperparathyroidism (of renal origin) SIRS (systemic inflammatory response syndrome) Surgical History Fusion of spine lumbar History of appendectomy History of cardiac cath with angioplasty ~1993 ([facility]) & 2013 ([facility]) History of cataract surgery bilateral History of coronary artery bypass graft x3 vessels ([facility] 2013) with epicardial RFA of pulmonary veins and left atrial appendage ligation History of revision of total replacement of right knee joint History of tonsillectomy History of tooth extraction History of total left knee replacement History of total right knee replacement Hx of colonoscopy Previous back surgery (08/26/12) S/P cholecystectomy Family History Brother Heart disease Diabetes Sister Cancer Mother Diabetes Father Diabetes Other Hypertension Kidney disease Social History Smoking Status: Former smoker Tobacco Type: Cigarettes Second Hand Exposure: No; Do You Dip or Chew Tobacco: No; Hx Alcohol Use: No Hx Substance Use: No Preferred Language: [place] Communication Ability: Effective Visual Impairment: Partially Limited Process Design Chemical Engineer Required: No Beliefs That Will Affect Care: Amish Amish Beliefs: Pt. states he would not want any machines to keep him alive including dialysis. marital status: Current Living Situation: Spouse Current Living Situation Comment: lives at home with current occupational status: retired Feels Safe at Home: Yes Assistive Devices: Cane, Denture - Upper, Denture - Lower, Glasses, Scooter/Electric Scooter, Walker and Wheelchair Review of System pt not seen Physical Exam Physical Exam: pt not seen Results & Data Vital Signs (Past 12 Hours) Vital Signs Temp Pulse Pulse Pulse Resp BP Pulse Ox 10/12/22 13:41 36.4 C L 72 20 123/67 96 10/12/22 13:11 80 18 95 10/12/22 11:18 36.4 C L 78 20 127/63 94 10/12/22 08:43 10/12/22 08:00 36.4 C L 81 18 114/63 94 10/12/22 06:38 77 10/12/22 06:51 80 18 94 10/12/22 04:25 36.3 C L 77 20 118/61 93 O2 Del Method 10/12/22 13:41 Room Air 10/12/22 13:11 Room Air 10/12/22 11:18 Room Air 10/12/22 08:43 Room Air 10/12/22 08:00 Room Air 10/12/22 06:38 10/12/22 06:51 Room Air 10/12/22 04:25 Room Air Laboratory Results Short CBC 10/12/22 Range/Units 06:34 WBC 8.64 (4.8-10.8) K/ul Hgb 11.6 L (14.0-18.0) g/dl Hct 32.1 L (42.0-52.0) % Plt Count 193 (130-400) K/uL BMP 10/11/22 10/11/22 10/12/22 14:51 15:55 06:34 Sodium 123 L 123 L 123 L Potassium 5.7 H 5.9 H 5.7 H Chloride 91 L 94 L 93 L Carbon Dioxide 17 L 16 L 16 L BUN 118 H 118 H 124 H Creatinine 8.04 H* D 7.90 H* 8.29 H* D Glucose 208 H 218 H 324 H* Calcium 8.2 L 8.2 L 8.3 L Liver Function 10/12/22 Range/Units 06:34 Total Bilirubin 0.3 (0.2-1.0) mg/dl AST 24 (13-39) U/L ALT 22 (7-52) U/L Alkaline Phosphatase 71 (34-104) U/L Albumin 2.3 L (3.4-5.0) gm/dl Diagnostic Findings 10/08 CT A/P without contrast FINDINGS: Lower chest: Bibasilar atelectasis versus scarring is seen. Liver: Unremarkable. No focal lesions are seen. Gallbladder and biliary tree: Patient is status post cholecystectomy. No intra- or extrahepatic biliary ductal dilation. Pancreas: Unremarkable, no focal lesions. Spleen: Unremarkable. Adrenals: Unremarkable. Kidneys and ureters: Perinephric stranding is noted bilaterally. Left lower pole cyst is seen. No hydronephrosis is seen. Bladder: Diffuse homogeneous wall thickening is seen. Reproductive organs: Patient appears be status post prostatectomy. Bowel: Unremarkable. Lymph nodes Retroperitoneal: Unremarkable. Pelvic: Unremarkable. Mesenteric: Unremarkable. Peritoneum: Normal. Vessels: Atherosclerotic calcifications are seen. Abdominal wall: Right fat-containing inguinal hernia. Bones: Degenerative changes in the visualized spine. Posterior fixation hardware is seen in the lumbar sacral spine. IMPRESSION: No acute abnormality and in particular no evidence of hydronephrosis. Chronic appearing bladder wall thickening is likely due to chronic outlet obstruction, although superimposed cystitis cannot be entirely excluded. 10/05 CT A/P without contrast FINDINGS: Lower chest: Bibasilar atelectasis versus scarring is seen. Liver: Unremarkable. No focal lesions are seen. Gallbladder and biliary tree: Patient is status post cholecystectomy. No intra- or extrahepatic biliary ductal dilation. Pancreas: Unremarkable, no focal lesions. Spleen: Unremarkable. Adrenals: Unremarkable. Kidneys and ureters: Perinephric stranding is noted bilaterally. Bladder: Diffuse homogeneous wall thickening is seen. Reproductive organs: Postsurgical changes of prostatectomy versus TURP. Bowel: Diverticulosis is seen without evidence of diverticulitis. Incidental note is made of calcific densities in the cecum likely representing ingested material. Lymph nodes Retroperitoneal: Unremarkable. Pelvic: Unremarkable. Mesenteric: Unremarkable. Peritoneum: Normal. Vessels: Atherosclerotic calcifications are seen. Abdominal wall: Right fat-containing inguinal hernia. Right soft tissue superficial stranding may be secondary to injection granuloma. Bones: Degenerative changes are seen with L2-L5 posterior fixation hardware. IMPRESSION: Diffuse bladder wall thickening is seen, similar to prior exam. Findings are compatible with chronic outlet obstruction. No urothelial abnormalities are otherwise seen. Medications Administered Current Inpatient Medications Albuterol (Albuterol 0.083% Nebu Soln 3 Ml Vial) 2.5 mg NEB Q6R VANDANA; Protocol Stop: 11/08/22 00:59 Last Admin: 10/12/22 13:10 Dose: 2.5 mg Apixaban (Apixaban 2.5 Mg Tab) 2.5 mg PO BID VANDANA Stop: 11/07/22 20:59 Last Admin: 10/10/22 08:31 Dose: 2.5 mg Aspirin (Aspirin 81 Mg Ectab) 81 mg PO DAILY VANDANA Stop: 11/08/22 08:59 Last Admin: 10/12/22 08:33 Dose: 81 mg Clonazepam (Clonazepam 1 Mg Tab) 1 mg PO BID VANDANA Stop: 11/07/22 20:59 Last Admin: 10/12/22 08:39 Dose: 1 mg Dextrose (Dextrose 50% 50 Ml Syringe) 25 - 50 ml IV UD PRN; Protocol PRN Reason: Hypoglycemia Protocol Stop: 11/07/22 20:16 Finasteride (Finasteride 5 Mg Tab) 5 mg PO HS VANDANA Stop: 11/07/22 20:59 Last Admin: 10/11/22 21:35 Dose: 5 mg Fluticasone/Vilanterol (Fluticasone/Vilanterol 200/25mcg 14 Puffs/Inhaler) 1 puffs INH DAILY VANDANA Stop: 11/08/22 08:59 Last Admin: 10/12/22 08:37 Dose: 1 puffs Gabapentin (Gabapentin 100 Mg Cap) 100 mg PO QAM [facility] Stop: 11/08/22 08:59 Last Admin: 10/12/22 08:34 Dose: 100 mg Gabapentin (Gabapentin 100 Mg Cap) 300 mg PO PM [facility] Stop: 11/07/22 22:29 Last Admin: 10/08/22 23:33 Dose: 300 mg Glucagon (Glucagon For Inj 1 Mg Vial) 1 mg SQ UD PRN; Protocol PRN Reason: Hypoglycemia Protocol Stop: 11/07/22 20:16 Glucose (Glucose 10 Tab/Tube) 4 - 8 tab PO UD PRN; Protocol PRN Reason: Hypoglycemia Treatment Stop: 11/07/22 20:16 Glucose (Glucose 40% Gel 15 Gm Tube) 15 - 30 gm PO UD PRN; Protocol PRN Reason: Hypoglycemia Protocol Stop: 11/07/22 20:16 Ampicillin Sodium/Sulbactam Sodium 1,500 mg/ Sodium Chloride 104 mls @ 200 mls/hr IV Q24H [facility]; Protocol Stop: 10/19/22 00:59 Last Infusion: 10/12/22 02:00 Dose: Infused Bumetanide 2 mg/ Syringe 8 mls @ 4 mls/min IV BID@0900,1700 [facility] Stop: 11/10/22 09:59 Last Admin: 10/12/22 08:38 Dose: 4 mls/min Insulin Aspart (Insulin Aspart Per Unit Charge) 0 units SC ACHS [facility] Stop: 11/10/22 09:44 Last Admin: 10/12/22 12:27 Dose: 8 units Insulin Aspart (Insulin Aspart Per Unit Charge) 0 units SC 0000,0400 [facility] Stop: 10/13/22 04:01 Levothyroxine Sodium (Levothyroxine Sodium 88 Mcg Tablet) 88 mcg PO DAILYBB [facility] Stop: 11/08/22 06:29 Last Admin: 10/12/22 05:44 Dose: 88 mcg Menthol (Cough Drop (Sugar Free) Leelee 24 Leelee/1 Box) 1 leelee BUCCAL Q8H PRN PRN Reason: Sore Throat Stop: 11/11/22 13:23 Metoprolol Tartrate (Metoprolol Tartrate 25 Mg Tab) 25 mg PO BID [facility] Stop: 11/08/22 08:59 Last Admin: 10/12/22 08:33 Dose: 25 mg Miscellaneous (Carbohydrates For Hypoglycemia ) 15 - 30 gm PO UD PRN PRN Reason: Hypoglycemia Protocol Stop: 11/07/22 20:16 Miscellaneous Information (Pharmacy Glycemic Mgmt Consult) 1 each N/A UD PRN; Protocol PRN Reason: Consult Stop: 11/09/22 15:16 Multivitamins/Minerals (Cerovite Adv Formula Tab) 1 tab PO DAILY VANDANA Stop: 11/08/22 08:59 Last Admin: 10/12/22 08:33 Dose: 1 tab Pantoprazole Sodium (Pantoprazole 40 Mg Tab) 40 mg PO BID VANDANA Stop: 11/08/22 08:59 Last Admin: 10/12/22 08:33 Dose: 40 mg Patiromer (Patiromer Calcium Sorbitex 8.4 Gm Pack) 8.4 gm PO DAILY@1100 [facility] Stop: 11/08/22 10:59 Last Admin: 10/12/22 12:51 Dose: 8.4 gm Polyethylene Glycol (Polyethylene (Miralax) 17 Gm Pack) 17 gm PO DAILY PRN PRN Reason: Constipation Stop: 11/07/22 22:35 Rosuvastatin Calcium (Rosuvastatin Calcium 10 Mg Tab) 10 mg PO HS VANDANA Stop: 11/08/22 20:59 Last Admin: 10/11/22 21:36 Dose: 10 mg Sevelamer HCl (Sevelamer Hcl 800 Mg Tablet) 1,200 mg PO TIDM VANDANA Stop: 11/10/22 07:59 Last Admin: 10/12/22 12:31 Dose: Not Given Sodium Bicarbonate (Sodium Bicarbonate 650 Mg Tab) 1,300 mg PO BID VANDANA Stop: 11/09/22 09:14 Last Admin: 10/12/22 08:33 Dose: 1,300 mg Tamsulosin HCl (Tamsulosin Hcl 0.4 Mg Cap) 0.8 mg PO HS VANDANA Stop: 11/07/22 20:59 Last Admin: 10/11/22 21:36 Dose: 0.8 mg Umeclidinium Duncan (Umeclidinium Duncan 62.5mcg/Blister 7 Puffs/Inhaler) 1 puffs INH DAILY VANDANA Stop: 11/08/22 08:59 Last Admin: 10/12/22 08:37 Dose: 1 puffs
--- NOTE | 2022-10-12 14:42 | Consultation ---
Date of Consultation October 12, 2022 Assessment & Plan (1) Acute kidney injury superimposed on CKD: Pt with acute on chronic renal failure, now requiring HD. Permcath insertion request by nephrology. Procedure, risks, benefits, and alternatives discussed with pt and , by myself at Dr Ramirez's request. Pt expresses understanding and agreement. Consent signed by . History of Present Illness Reason for Consultation: ESRD need permcath Attending Physician: Gary Bennett MD History of Present Illness 86yo m with hx of CKD, HTN, CAD s/p CABG, hx DVT, aortic stenosis, DMII, COPD, a fib, dyslipidemia, hypothyroidism, BPH, CHF, admitted with acute on chronic renal failure, seen in consultation today for permcath insertion for HD initiation. Pt is present, states pt has been confused today, so is a poor historian. Pt admits fatigue, malaise, edema, LE. Denies MOON, fever, chest pain, abd pain, N/V, rest pain, claudication, other complaints. Allergies Allergy/AdvReac Type Severity Reaction Status Date / Time semaglutide [From Ozempic] AdvReac Severe NAUSEA/VOMI Verified 10/08/22 17:29 TING/ANOREX IA amlodipine AdvReac Intermediate SWELLING Verified 10/08/22 17:29 OF ANKLES ropinirole AdvReac Intermediate CHANGE IN Verified 10/08/22 17:29 MENTAL STATUS Home Medications Medication Instructions Recorded Confirmed Type albuterol sulfate 90 mcg/actuation 2 puffs inhalation QID PRN 01/10/19 10/08/22 History aerosol inhaler shortness of breath or wheezing levothyroxine 88 mcg tablet 88 mcg PO DAILYBB #90 tabs 01/10/19 10/08/22 History potassium chloride 20 mEq 20 meq PO BID 01/10/19 10/08/22 History tablet,extended release finasteride 5 mg tablet 5 mg PO HS 04/23/19 10/08/22 History losartan 25 mg tablet 25 mg PO QAM 04/23/19 10/08/22 History tamsulosin 0.4 mg capsule 0.4 mg PO HS 04/23/19 10/08/22 History gabapentin 100 mg capsule See Rx Instructions .Route .COMPLEX 12/16/20 10/08/22 History aspirin 81 mg tablet,delayed 81 mg PO DAILY 10/11/21 10/08/22 History release pantoprazole 20 mg tablet,delayed 20 mg PO BID 02/07/22 10/08/22 History release glipizide 10 mg tablet 10 mg PO BID 03/29/22 10/08/22 History insulin glargine 100 unit/mL (3 See Rx Instructions .Route .COMPLEX 04/12/22 10/08/22 History mL) subcutaneous pen (Lantus Solostar U-100 Insulin) acetaminophen 500 mg tablet 1,000 mg PO Q6H PRN PAIN/FEVER 05/28/22 10/08/22 History (Tylenol Extra Strength) bumetanide 2 mg tablet 2 mg PO BID 05/28/22 10/08/22 History clonazepam 1 mg tablet 1 mg PO BID 05/28/22 10/08/22 History diphenhydramine HCl 25 mg capsule 25 mg PO BID PRN NEEDED 05/28/22 10/08/22 History (Benadryl) fluticasone 500 mcg-salmeterol 50 1 inh inhalation BID 05/28/22 10/08/22 History mcg/dose blistr powdr for inhalation metoprolol tartrate 50 mg tablet 25 mg PO BID 05/28/22 10/08/22 History multivitamin with minerals 1 tab PO DAILY 05/28/22 10/08/22 History rosuvastatin 20 mg tablet 20 mg PO HS 05/28/22 10/08/22 History tiotropium bromide 2.5 2 puff inhalation DAILY 05/28/22 10/08/22 History mcg/actuation mist for inhalation vitamins A,C,L-cuwf-jyhlcu 2,148 1 tab PO DAILY 05/28/22 10/08/22 History mcg-113 mg-45 mg-17.4 mg tablet (PreserVision AREDS) apixaban 5 mg tablet (Eliquis) 5 mg PO BID 09/26/22 10/08/22 History ciprofloxacin HCl 500 mg tablet 500 mg PO DAILY #14 tabs 10/05/22 10/08/22 Rx (Cipro) cephalexin 500 mg capsule 500 mg PO BID 10/08/22 10/08/22 History empagliflozin 10 mg tablet 10 mg PO DAILY 10/08/22 10/08/22 History Patient History Medical History Acute bronchopneumonia Acute urinary retention Eclyo-wx-[id number] kidney injury AMS (altered mental status) Anxiety Aortic stenosis Mild per 03/06/19 stress ECHO Asthma Uses rescue inhaler a couple times per week Atrial fibrillation Follows with Dr. Gr Bacteremia Blindness of left eye BPH (benign prostatic hyperplasia) CAD (coronary artery disease) Angioplasty ~1993, CABG x 3 2013 (GALINDO to LAD, SVG to PDA, SVG to OM) CHF (congestive heart failure) Chronic kidney disease Follows with Dr. Dixon Chronic obstructive pulmonary disease Diabetes Type 2 IDDM Foot ulcer GERD (gastroesophageal reflux disease) Herpes zoster Hiatal hernia Hyperlipidemia Hypertension Hypervolemia Hypothyroidism Leukocytosis Macular degeneration Myocardial infarct ~1993 Peripheral neuropathy Rupture of left distal biceps tendon hx - no surgery Secondary hyperparathyroidism (of renal origin) SIRS (systemic inflammatory response syndrome) Surgical History Fusion of spine lumbar History of appendectomy History of cardiac cath with angioplasty ~1993 ([facility]) & 2013 ([facility]) History of cataract surgery bilateral History of coronary artery bypass graft x3 vessels ([facility] 2013) with epicardial RFA of pulmonary veins and left atrial appendage ligation History of revision of total replacement of right knee joint History of tonsillectomy History of tooth extraction History of total left knee replacement History of total right knee replacement Hx of colonoscopy Previous back surgery (08/26/12) S/P cholecystectomy Family History Brother Heart disease Diabetes Sister Cancer Mother Diabetes Father Diabetes Other Hypertension Kidney disease Social History Smoking Status: Former smoker Tobacco Type: Cigarettes Second Hand Exposure: No; Do You Dip or Chew Tobacco: No; Hx Alcohol Use: No Hx Substance Use: No Preferred Language: Ghanaian Communication Ability: Effective Visual Impairment: Partially Limited Certified Hyperbaric Technologist Required: No Beliefs That Will Affect Care: Episcopal Episcopal Beliefs: Pt. states he would not want any machines to keep him alive including dialysis. marital status: Current Living Situation: Spouse Current Living Situation Comment: lives at home with current occupational status: retired Feels Safe at Home: Yes Assistive Devices: Cane, Denture - Upper, Denture - Lower, Glasses, Scooter/Electric Scooter, Walker and Wheelchair Review of Systems Review of Systems: All systems reviewed & are unremarkable except as noted in HPI & below Physical Exam Constitutional: WD/WN, vitals as above + morbidly obese; not in distress Neck: trachea midline Respiratory: normal respiratory effort, lungs clear to auscultation Auscultation: + diminished lung sounds and + crackles Cardiovascular: Rate/Rhythm: regular rate and regular rhythm Vessels: radial pulses present; + abnormal peripheral pulses Extremities: normal capillary refill and + edema Gastrointestinal (Abdomen): Inspection/Auscultation: abdomen normal to inspection and normal bowel sounds Percussion/Palpation: abdomen soft; abdomen nontender Musculoskeletal: no cyanosis or clubbing, extremities motor strength 5/5 Skin: no rashes, warm and dry Neurologic: moves all extremities, awake and + confused; no focal motor deficits Psychiatric: Orientation: alert, oriented to person, oriented to place and cooperative; + not oriented to time Results & Data Vital Signs (Past 12 Hours) Vital Signs Temp Pulse Pulse Pulse Resp BP Pulse Ox 10/12/22 13:41 36.4 C L 72 20 123/67 96 10/12/22 13:11 80 18 95 10/12/22 11:18 36.4 C L 78 20 127/63 94 10/12/22 08:43 10/12/22 08:00 36.4 C L 81 18 114/63 94 10/12/22 06:38 77 10/12/22 06:51 80 18 94 10/12/22 04:25 36.3 C L 77 20 118/61 93 O2 Del Method 10/12/22 13:41 Room Air 10/12/22 13:11 Room Air 10/12/22 11:18 Room Air 10/12/22 08:43 Room Air 10/12/22 08:00 Room Air 10/12/22 06:38 10/12/22 06:51 Room Air 10/12/22 04:25 Room Air
--- NOTE | 2022-10-12 14:47 | Pre Anesthesia Assessment ---
Date of Service October 12, 2022 Pre Sedation Assessment Vital Signs Temp Pulse Pulse Pulse Resp BP BP 10/12/22 13:41 36.4 C L 72 20 123/67 10/12/22 13:11 80 18 10/12/22 11:18 36.4 C L 78 20 127/63 10/12/22 08:43 10/12/22 08:00 36.4 C L 81 18 114/63 10/12/22 06:38 77 10/12/22 06:51 80 18 10/12/22 04:25 36.3 C L 77 20 118/61 10/12/22 00:52 76 19 10/12/22 00:14 36.8 C 73 20 165/71 H 10/11/22 23:22 63 10/11/22 23:08 10/11/22 19:48 36.6 C 68 18 180/72 H 10/11/22 19:03 64 19 10/11/22 16:34 66 10/11/22 15:19 36.4 C L 67 18 153/71 H Pulse Ox O2 Del Method 10/12/22 13:41 96 Room Air 10/12/22 13:11 95 Room Air 10/12/22 11:18 94 Room Air 10/12/22 08:43 Room Air 10/12/22 08:00 94 Room Air 10/12/22 06:38 10/12/22 06:51 94 Room Air 10/12/22 04:25 93 Room Air 10/12/22 00:52 95 Room Air 10/12/22 00:14 96 Room Air 10/11/22 23:22 10/11/22 23:08 Room Air 10/11/22 19:48 96 Room Air 10/11/22 19:03 95 Room Air 10/11/22 16:34 10/11/22 15:19 94 Room Air Cardiovascular RRR, no murmur, no edema Respiratory normal respiratory effort, lungs clear to auscultation Pre-Sedation Airway Assessment Smoking Status: Former smoker Hx Sleep Apnea: No Hx Difficult Intubation: No Short, Thick Neck: No Thyromental Distance: > or= 3.5 Finger Breadths Oral Cavity: + Dentures Mallampati Class: III ASA: ASA3 NPO Status Date of Last Intake of Fluids: 10/12/22 Time of Last Intake of Fluids: 08:00 Date of Last Intake of Solid Food: 10/12/22 Time of Last Intake of Solid Foods: 08:00 Last Intake of Solids Comment: few bites of applesauce Procedure Planning Contraindications for Sedation: none Current Medications Reviewed: Yes Notes The planned sedation has been discussed with the patient. Informed Consent was obtained. I have identified the patient, determined the appropriateness of sedation and have assessed the patient immediately prior to the procedure. All medicine(s) and interventions are by my order.
[2022-10-12] MEDS ORDERED: LIDOCAINE 1% LOCAL 20 ML VIAL ONE (14:59)
[2022-10-12] MEDS ORDERED: MIDAZOLAM HCL 1 MG/ML 2ML VIAL ONE (14:59)
[2022-10-12] MEDS ORDERED: fentaNYL citrate PF 100 MCG/2 ML VIAL ONE (14:59)
[2022-10-12] MEDS ORDERED: HEPARIN SOD (PORCINE) 5,000 UNITS/ML VIAL ONE (15:00)
--- NOTE | 2022-10-12 15:21 | Post Anesthesia Assessment ---
Date of Service October 12, 2022 Post Sedation Assessment Vital Signs Temp Pulse Pulse Pulse Resp BP BP 10/12/22 15:15 73 18 175/74 H 10/12/22 15:10 75 18 190/84 H 10/12/22 15:05 75 18 180/74 H 10/12/22 15:00 77 18 196/88 H 10/12/22 13:41 36.4 C L 72 20 123/67 10/12/22 13:11 80 18 10/12/22 11:18 36.4 C L 78 20 127/63 10/12/22 08:43 10/12/22 08:00 36.4 C L 81 18 114/63 10/12/22 06:38 77 10/12/22 06:51 80 18 10/12/22 04:25 36.3 C L 77 20 118/61 10/12/22 00:52 76 19 10/12/22 00:14 36.8 C 73 20 165/71 H 10/11/22 23:22 63 10/11/22 23:08 10/11/22 19:48 36.6 C 68 18 180/72 H 10/11/22 19:03 64 19 10/11/22 16:34 66 Pulse Ox O2 Del Method O2 Flow Rate 10/12/22 15:15 98 Oxymask 4 10/12/22 15:10 98 Oxymask 4 10/12/22 15:05 98 Oxymask 4 10/12/22 15:00 98 Oxymask 4 10/12/22 13:41 96 Room Air 10/12/22 13:11 95 Room Air 10/12/22 11:18 94 Room Air 10/12/22 08:43 Room Air 10/12/22 08:00 94 Room Air 10/12/22 06:38 10/12/22 06:51 94 Room Air 10/12/22 04:25 93 Room Air 10/12/22 00:52 95 Room Air 10/12/22 00:14 96 Room Air 10/11/22 23:22 10/11/22 23:08 Room Air 10/11/22 19:48 96 Room Air 10/11/22 19:03 95 Room Air 10/11/22 16:34 Recovery Score Activity: Moves 4 extremities Respiration: Deep Breath/Cough Circulation: +/-20% PreAnes Value Consciousness: Fully Awake Oxygen Saturation: O2 needed for >90% Post Anesthesia Score: 9 Discharge Sedation Level of Care: Fast Track Phase II Post Sedation Plan On clinical assessment, the patient appears to have tolerated the sedation without complications. Patient is recovering as anticipated. Patient will continue to be monitored by nursing and may be discharged when sedation discharge criteria are met per below protocol. Upon Completions of procedure up to 15 minutes continue every 5 minute vital signs and the P.A.R. score; then discharge to a Phase I or Fast Track to Phase II per the following guidelines: * Discharge Patient to appropriate Phase II area if PAR is 8 or greater or return to pre- procedure baseline. The post - procedure orders will be as directed. * If PAR score is less than 8 or not return to pre-procedure baseline then p atient will follow Phase I monitoring till PAR is reached for Phase II. The Phase I may be done in procedure room or may call to secure a Phase I area. * If naloxone or flumazenil are used for reversal, hold in Phase I for continued monitoring from when last reversal dose was given for a minimum of 60 minutes or longer pending the nurse and/or physician discretion of patient condition before discharge to Phase II. Please call the Sedation Physician to re-evaluate and complete post-note for discharge to Phase II area. Do NOT discharge from procedure sedation or Phase 1 until post- sedation evaluation note is complete by procedure /sedation MD Sedation Discharge Instructions to be given to the patient at discharge to home.
--- NOTE | 2022-10-12 15:24 | Operative Report ---
Post Operative Report Pre & Post Diagnosis Operation Date: 10/12/22 08:20 Pre-Op Diagnosis: Acute Kidney Injury Post-Op Diagnosis: Acute Kidney Injury I identified the patient and participated in the time-out.: Yes Procedure Operation Date: 10/12/22 08:20 Actual Procedures p Insertion of Perm Catheter, Right Internal Jugular Approach, Ultrasound of Right Internal Jugular Vein, Fluoscopy for Positioning, Moderate Sedation 1503- 1523(Right) - Bryson Ramirez MD Surgeon Bryson Ramirez MD Tenant Relations Coordinator none Estimated Blood Loss 3 Findings Consistent with Post-Op Diagnosis Specimens none Anesthesia Type RN Sedation Complications none Disposition Accompanied Patient To Recovery: No Disposition: Recovery Room Indications This patient is an 86-year-old male who with acute kidney injury and fluid overload. Dialysis was recommended. PermCath was recommended for temporary access. I have discussed the risks options and benefits of the procedure with the patient. The patient understands the risks options and benefits and agrees to the procedure. Description of Procedure Patient was taken to the angio suite and placed in the supine position. The right side of the neck and chest wall were prepped and draped in a sterile manner. The patient was identified and a timeout performed. Local anesthesia was then administered to the appropriate areas of the neck and chest wall. Ultrasound was then used to locate the right internal jugular vein. The vein compressed easily, had no filing defects, and was patent. The vein was then punctured under direct ultrasound imaging. A guidewire was then passed centrally under fluoroscopic imaging. A stab wound was then made in the anterior chest wall and a 19 cm permcath was passed from the stab wound on the chest wall to the puncture site on the neck. The puncture site was then dilated till the 14Fr peel away sheath was inserted. The permcath was then inserted through the sheath to a central position in the distal superior vena cava. The peel away sheath was then removed. The catheter was then sutured in place using nylon sutures. The puncture was then closed using a 4-0 Vicryl subcuticular suture. Dermabond was used for a dressing on the puncture site. Both ports aspirated and flushed easily and were then packed with heparin. A sterile dressing was applied to the catheter. The patient left the operation room in satisfactory condition and tolerated the procedure well. All needle and sponge counts were correct at the end of the procedure. I attest to the content of the Intraoperative Record and any orders documented therein. Any exceptions are noted below.
[2022-10-12] MEDS: COUGH DROP (SUGAR FREE) LOZ 24 LOZ/1 BOX BUCCAL PRN (15:35)
--- NOTE | 2022-10-12 15:36 | Urology Progress Note ---
Date of Service October 12, 2022 Assessment & Plan (1) Acute kidney injury superimposed on CKD: (2) Urethral stricture: (3) Prostatitis: Plan 86yo/M admitted with JUDI on CKD, UTI/Prostatitis. CT abd pelvis on admission with no evidence of hydronephrosis and chronic appearing bladder wall thickening likely due to chronic outlet obstruction. 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 This was dilated at the bedside to facilitate catheter placement. He is afebrile and hemodynamically stable. Labs show no leukocytosis and creatinine 8.29 today. Nephrology is following, possible ATN in setting of recent infection vs AIN from recent antibiotic use. Plan is for short term dialysis per nephrology w/ anticipated HD to start tomorrow 10/13 pending placement of a temp HD cath today. Current catheter should stay in place for maximum drainage and to allow time for healing. Will arrange outpatient voiding trial and subsequent discussion of urethral stricture. Urine culture 10/05 with proteus vulgaris. Repeat UCx 10/08 with sabi glabrata. Repeat UCx 10/09 negative. Blood cultures prelim no growth x 48 hours. On IV Unasyn, follow cultures. Given his complex acute issues and renal failure, recommend ID consultation for recommendations given the Sabi glabrata on urine culture from 10/08. Continue supportive care and antibiotics. Urology will follow peripherally. Please contact us with any further questions, concerns, or changes in patient status. Admission and Anticipated Discharge Date Admission Date: October 08, 2022 Subjective Patient examined at bedside today. Has been confused. Lopez intact. Plan is for short term dialysis per nephrology w/ anticipated HD to start tomorrow 10/13 pending placement of a temp HD cath today. Review of Systems Constitutional: as per Subjective / HPI Genitourinary: + as per Subjective / HPI Physical Exam Constitutional: no acute distress Respiratory: no respiratory distress Neurologic: awake Psychiatric: Orientation: alert Genitourinary: Lopez catheter intact Results & Data Vital Signs (Past 12 Hours) Vital Signs Temp Pulse Pulse Pulse Resp BP Pulse Ox 10/12/22 13:41 36.4 C L 72 20 123/67 96 10/12/22 13:11 80 18 95 10/12/22 11:18 36.4 C L 78 20 127/63 94 10/12/22 08:43 10/12/22 08:00 36.4 C L 81 18 114/63 94 10/12/22 06:38 77 10/12/22 06:51 80 18 94 10/12/22 04:25 36.3 C L 77 20 118/61 93 O2 Del Method 10/12/22 13:41 Room Air 10/12/22 13:11 Room Air 10/12/22 11:18 Room Air 10/12/22 08:43 Room Air 10/12/22 08:00 Room Air 10/12/22 06:38 10/12/22 06:51 Room Air 10/12/22 04:25 Room Air PG Care Time/CCT Total # of Minutes Spent Total Time Spent with Patient: Total time spent is greater than 50% in coordination of care (as documented) at patient's floor/unit and/or counseling patient: Coding Level of Care Code 14015 SUB INP/OBS CARE 2/35MIN Diagnoses Acute kidney injury superimposed on CKD N17.9; N18.9 Urethral stricture N35.919 Prostatitis N41.0 Prostatitis type: acute (3) Prostatitis Prostatitis type: acute Qualified Code(s): N41.0 - Acute prostatitis
[2022-10-12] MEDS: FINASTERIDE 5 MG TAB PO SCH (21:26)
[2022-10-12] MEDS: ROSUVASTATIN CALCIUM 10 MG TAB PO SCH (21:27)
[2022-10-12] MEDS: TAMSULOSIN HCL 0.4 MG CAP PO SCH (21:28)
[2022-10-12] MEDS: APIXABAN 2.5 MG TAB PO SCH (21:39)
[2022-10-13] MEDS: INSULIN ASPART PER UNIT CHARGE SC SCH ×6 (00:16→21:14)
[2022-10-13] MEDS: ALBUTEROL 0.083% NEBU SOLN 3 ML VIAL NEB SCH ×4 (01:06→19:35)
[2022-10-13] MEDS: LEVOTHYROXINE SODIUM 88 MCG TABLET PO SCH (06:09)
--- NOTE | 2022-10-13 07:26 | Hospitalist Progress Note ---
Date of Service October 13, 2022 Assessment & Plan (1) Fluid overload: Plan: 86yo Male with PMH CHF EF 60-65%, DM2, asthma, COPD, Hx. NE, DVT, hypothyroidism, CKD, HTN, HLD, chronic leg wound, GERD here for increased swelling in face, extremities, abd found to have JUDI on CKD. JUDI on CKD: -concern for ATN vs AIN with component of post-renal obstructive -Creat 6.19 on admission (baseline 2), continues to trend up -Hyponatremic, hyperkalemic. Fractional excretion of sodium 0.9% -CT A&P showed no evidence of hydronephrosis. Chronic appearing bladder wall thickening is likely due to chronic outlet obstruction -Urology consulted; Jeronimo placed. Allow for catheter for at least 1 week, can follow up w/ urology outpatient for voiding trial. -Nephrology consulted: -Possible ATN in setting of recent infection vs AIN from recent antibiotic use. -Treat suspected AIN w/ methylpred 1gm daily x3 doses-> plan to restart 60mg prednisone daily -Strict I&Os -First session of dialysis today. Plan for another tomorrow and 3rd on Monday - Continue Bumex BID as he continues to make urine - -trend BMP Hyperkalemia: -potassium 6.1 on admission, started to decline with insulin gtt - Received one dose of 5mg Lokelma on admission -Patient given multiple doses of insulin 10U w/ D5, calcium gluconate -started on Patiromer 8.4gm daily-> plan to stop as he started dialysis today -Initial EKG on admission without significant T-wave changes. EKG daily -Continue Bumex 2mg IV BID, as long as he continues to make urine Hyperglycemia in the setting of DM2 - hyperglycemia likely secondary to steroid use - Glycemic consult, appreciate recommendations Prostatitis: -cipro was stopped given renal function -urine culture 10/05 grew proteus vulgaris, repeat from 10/08 grew baylee glabrata - ID consulted. They do not believe he has prostatitis, will hold on further antibiotics - ID does not recommend treatment of baylee glabrata in urine Wheeze: -continue home inhalers -ordered albuterol q6hr nebulizer HTN, Hx. NE: -continue metoprolol, aspirin -hold losartan given JUDI BPH: -continue tamsulosin, increased to 0.8mg -continue finasteride HLD: -continue rosuvastatin, dose redcued to 10mg daily GERD: -continue protonix Anxiety: -continue clonapin, gabapentin (reduced to 100mg daily) Hypothyroidism -continue levothyroxine FENa: heart healthy DM2 fluid restriction 1.5L Code Status: DNR/DNI is POA DVT PPX: Eliquis restarted (2) Acute kidney injury superimposed on CKD: (3) DVT (deep venous thrombosis): (4) Prostatitis: (5) Acute hyperkalemia: (6) Abdominal distension: (7) Benign prostatic hyperplasia with urinary obstruction: (8) Hypothyroidism: (9) Hypertension: (10) Dyslipidemia: (11) CHF (congestive heart failure): (12) GERD (gastroesophageal reflux disease): (13) Diabetes: Admission and Anticipated Discharge Date Admission Date: October 08, 2022 Supervising Physician Co-Signing Physician Notes Attending attestation Pt seen and examined in concert with Dr. Christian. In agreement with the documented findings as noted in the resident documentation with any exceptions or additions as noted here. Feeling well today with stable swelling and fatigue. Tolerated first session of dialysis well, allayed most of his concerns On examination, S1/S2 nl RRR no MCG. CTAB. Abd NT/ND BS+ve, 2+ pitting edema b/l LE. LLE wound C/D/I JUDI on CKDIV in the setting of chronic HFpEF - nephrology consult - AIN vs. ATN with ?component of postrenal obstruction s/p cystoscopy with jeronimo placement. Tolerating dialysis well, follow up post HD labs and trend BMP. Continue pred 60mg therapy. Hyperkalemia in the setting of acute renal failure - trend BMP daily and with HD, EKG if uptrending or with clinical concern DMII with hyperglycemia - improved control with glycemic c/s, continue SSI Urinary tract infection - ID, urology consult - completed course of abx, no indication at present to treat funguria. No changes after d/c of abx. Else see resident documentation as noted. Subjective Saw Chang in dialysis this morning. Doing well. No complainants. Appetite is good. Review of Systems Review of Systems: As per above Physical Exam Physical Exam: Constitutional: well-appearing, no acute distress HEENT: NCAT, no conjunctival injection CV: regular rhythm, no murmur appreciated, extremities well-perfused, 2+ LE edema Resp: CTABL, no wheezes/rales/rhonchi appreciated, no increased work of breathing GI: soft, nondistended, nontender, BS normoactive MSK: no gross deformities appreciated Skin: warm, dry, no rash appreciated Neuro: alert, oriented, no focal neurologic deficit appreciated Results & Data Results & Data Vital Signs (Past 12 Hours) Vital Signs Temp Pulse Pulse Pulse Resp BP Pulse Ox 10/13/22 06:55 80 17 96 10/13/22 04:00 36.5 C 68 18 155/66 H 95 10/13/22 02:54 65 10/13/22 01:33 10/13/22 00:00 36.5 C 81 18 123/66 95 O2 Del Method 10/13/22 06:55 Room Air 10/13/22 04:00 Room Air 10/13/22 02:54 10/13/22 01:33 Room Air 10/13/22 00:00 Room Air Resident Activity Tracking Resident Involvement: Resident Care Provided Care Provided: Adult Hospital Medicine (4) Prostatitis Prostatitis type: acute Qualified Code(s): N41.0 - Acute prostatitis (8) Hypothyroidism Hypothyroidism type: unspecified Qualified Code(s): E03.9 - Hypothyroidism, unspecified (9) Hypertension Hypertension type: essential hypertension Qualified Code(s): I10 - Essential (primary) hypertension (11) CHF (congestive heart failure) Heart failure chronicity: unspecified Heart failure type: unspecified Qualified Code(s): I50.9 - Heart failure, unspecified (12) GERD (gastroesophageal reflux disease) Esophagitis presence: esophagitis presence not specified Qualified Code(s): K21.9 - Gastro-esophageal reflux disease without esophagitis (13) Diabetes Diabetes mellitus complication status: with hyperglycemia Diabetes mellitus continuous churn buttermaker insulin use: with continuous churn buttermaker use Diabetes mellitus type: type 2 Qualified Code(s): E11.65 - Type 2 diabetes mellitus with hyperglycemia; Z79.4 - alf (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
[2022-10-13] MEDS ORDERED: LANTUS PER UNIT CHARGE SC SCH ×2 (07:30→21:00)
[2022-10-13 07:51] LABS: Hematocrit (blood only) 33.4 % (42.0-52.0); Mean Corpuscular Hemoglobin 31.6 pg (25.0-34.0); Mean Corpuscular Hgb Conc 35.9 g/dL (32.0-36.0); Mean Corpuscular Volume 87.9 fL (80.0-100.0); Mean Platelet Volume 9.3 fL (9.4-12.4); Platelet Count 183 K/uL (130-400); RDW Coefficient of Variation 13.3 % (11.5-14.5); RDW Standard Deviation 42.9 fL (36.4-46.3); White Blood Count 9.46 K/ul (4.8-10.8)
[2022-10-13 08:20] LABS: Albumin Level 2.5 gm/dl (3.4-5.0); Calcium 8.5 mg/dl (8.6-10.3); Creatinine Clr Calc Pharmacy 7.1 ml/min; Est GFR (African American) 5.8 ml/min; Phosphorus 10.6 mg/dl (2.5-4.9); Potassium 6.2 mmol/L (3.5-5.1)
[2022-10-13] MEDS: FLUTICASONE/VILANTEROL 200/25MCG 14 PUFFS/INHALER INH SCH (08:33)
[2022-10-13] MEDS: ASPIRIN 81 MG ECTAB PO SCH (08:34)
[2022-10-13] MEDS: UMECLIDINIUM BROMIDE 62.5MCG/BLISTER 7 PUFFS/INHALER INH SCH (08:34)
[2022-10-13] MEDS: PANTOprazole 40 MG TAB PO SCH ×2 (08:34→21:14)
[2022-10-13] MEDS: APIXABAN 2.5 MG TAB PO SCH ×2 (08:35→21:15)
[2022-10-13] MEDS: SEVELAMER HCL 800 MG TABLET PO SCH ×3 (08:35→18:16)
[2022-10-13] MEDS: clonazePAM 1 MG TAB PO SCH ×2 (08:37→21:14)
[2022-10-13] MEDS: SODIUM BICARBONATE 650 MG TAB PO SCH (08:38)
[2022-10-13] MEDS: CEROVITE ADV FORMULA TAB PO SCH (08:38)
[2022-10-13] MEDS: GABAPENTIN 100 MG CAP PO SCH (08:38)
[2022-10-13] MEDS: BUMETANIDE 2 MG in SYRINGE 0 ML IV SCH ×2 (08:41→17:13)
[2022-10-13 08:43] LABS: HBSAG NON-REACTIVE (NON-REACTIVE); Hepatitis B Core Antibody IgM NON-REACTIVE (NON-REACTIVE); Hepatitis B Surface Ab, Quant <5 mIU/mL (> OR = 10)
[2022-10-13 09:15] LABS: Magnesium 2.5 mg/dl (1.7-2.4)
--- NOTE | 2022-10-13 10:21 | Nephrology Progress Note ---
Date of Service October 13, 2022 Assessment & Plan (1) Acute kidney injury superimposed on CKD: Plan: JUDI superimposed on advanced CKD. Baseline creatinine ~2.3 mg/dL. Prognosis for recovery is guarded. Unfortunately, we have not seen evidence of renal recovery. Creatinine continues to rise. TDC placed by Dr. Ramirez on 10/12. Orders for first dialysis treatment entered into the EHR today and reviewed with the distribution specialist. Aj was seen and evaluated prior to and during HD. His has remained with him. Qb at goal. He is tolerating dialysis well. Short treatment today with low clearance. Next HD treatment will be tomorrow. A third treatment will be planned for Monday. Patiromer and oral NaHCO3 may be stopped. Aj remains hypervolemic and hyperkalemic. He is non-oliguric. For suspected AIN, he completed methylprednisolone 1000 mg IV daily x 3 doses. Prednisone 60 mg daily will be started this afternoon. Continue Bumex to encourage urine output. Maintain Lopez to gravity. DDx includes ATN in the setting of recent infections vs. AIN (potentially associated with ciprofloxacin or cephalexin). Cannot exclude potential anticoagulant-related nephropathy from Eliquis though this would be significantly less likely. Low potassium diet. Document I/O's. Reduce rosuvastatin to 10 mg daily. Limit Eliquis to 2.5 mg BID. Gabapentin reduced from 400 mg daily to 100 mg daily. Losartan held. (2) Acute hyperkalemia: Plan: Stop Patiromer daily. Low potassium diet. Bumex 2 mg IV BID. Repeat metabolic profile tomorrow AM. (3) Urethral stricture: Plan: Followed by Dr. Gunter as an outpatient. Maintain Lopez to gravity. Appreciate urology consultation. CT reviewed. No obvious obstructive nephropathy. (4) UTI (urinary tract infection): Plan: Prior vulture +proteus vulgaris. Stop abx therapy per ID consultation. Avoid cephalosporins and fluoroquinolones for now. Admission and Anticipated Discharge Date Admission Date: October 08, 2022 Subjective No acute events overnight. Aj was seen and evaluated with his at the bedside this AM. He remains afebrile. Some confusion persists. Good urine output. Tolerating IV steroids. Intermittent confusion persists. Review of Systems Review of Systems: All systems reviewed & are unremarkable except as noted in HPI & below Physical Exam Constitutional: well developed and + frail appearing; no acute distress Eyes: no scleral abnormality and no corneal abnormality ENMT: Mouth: no oral mucosal abnormality and oral mucous membranes not dry Neck: normal visual inspection and trachea midline IJ TDC Respiratory: normal respiratory effort and + tachypneic Auscultation: + wheezes Cardiovascular: Rate/Rhythm: regular rate Heart Sounds: normal S1 and normal S2 Extremities: + edema Musculoskeletal: Extremities: no cyanosis and no clubbing Skin: + turgor decreased and + ecchymosis; no jaundice Neurologic: Motor/Sensory: no tremor and no asterixis Psychiatric: Orientation: alert and oriented x 3 Results & Data Vital Signs (Past 12 Hours) Vital Signs Temp Pulse Pulse Pulse Resp BP Pulse Ox 10/13/22 08:02 36.5 C 67 20 182/64 H 94 10/13/22 07:00 57 L 10/13/22 06:55 80 17 96 10/13/22 04:00 36.5 C 68 18 155/66 H 95 10/13/22 02:54 65 10/13/22 01:33 10/13/22 00:00 36.5 C 81 18 123/66 95 O2 Del Method 10/13/22 08:02 Room Air 10/13/22 07:00 10/13/22 06:55 Room Air 10/13/22 04:00 Room Air 10/13/22 02:54 10/13/22 01:33 Room Air 10/13/22 00:00 Room Air Laboratory Results Laboratory Results - last 24 hr 10/12/22 10/12/22 10/12/22 10:11 11:39 13:41 WBC RBC Hgb Hct MCV MCH MCHC RDW Std Deviation RDW Coeff of Adrian Plt Count MPV Sodium Potassium Chloride Carbon Dioxide Anion Gap BUN Creatinine Est Cr Clr Drug Dosing Est GFR ( Amer) Est GFR (Non-Af Amer) BUN/Creatinine Ratio Glucose POC Glucose 257 H 248 H Calcium Phosphorus Magnesium Albumin Hep Bs Antigen NON-REACTIVE Hep Bs Ag Confirmation TNP Hep Bs Antibody, Quant <5 L Hep B Core IgM Ab NON-REACTIVE 10/12/22 10/12/22 10/12/22 16:37 20:28 23:57 WBC RBC Hgb Hct MCV MCH MCHC RDW Std Deviation RDW Coeff of Adrian Plt Count MPV Sodium Potassium Chloride Carbon Dioxide Anion Gap BUN Creatinine Est Cr Clr Drug Dosing Est GFR ( Amer) Est GFR (Non-Af Amer) BUN/Creatinine Ratio Glucose POC Glucose 263 H 249 H 202 H Calcium Phosphorus Magnesium Albumin Hep Bs Antigen Hep Bs Ag Confirmation Hep Bs Antibody, Quant Hep B Core IgM Ab 10/13/22 10/13/22 10/13/22 04:05 06:59 06:59 WBC 9.46 RBC 3.80 L Hgb 12.0 L Hct 33.4 L MCV 87.9 MCH 31.6 MCHC 35.9 RDW Std Deviation 42.9 RDW Coeff of Adrian 13.3 Plt Count 183 MPV 9.3 L Sodium 127 L Potassium 6.2 H* Chloride 95 L Carbon Dioxide 18 L Anion Gap 14 H BUN 146 H D Creatinine 8.59 H* D Est Cr Clr Drug Dosing 7.1 Est GFR ( Amer) 5.8 Est GFR (Non-Af Amer) 5.0 BUN/Creatinine Ratio 17.0 Glucose 131 H POC Glucose 188 H Calcium 8.5 L Phosphorus 10.6 H Magnesium 2.5 H Albumin 2.5 L Hep Bs Antigen Hep Bs Ag Confirmation Hep Bs Antibody, Quant Hep B Core IgM Ab 10/13/22 07:54 WBC RBC Hgb Hct MCV MCH MCHC RDW Std Deviation RDW Coeff of Adrian Plt Count MPV Sodium Potassium Chloride Carbon Dioxide Anion Gap BUN Creatinine Est Cr Clr Drug Dosing Est GFR ( Amer) Est GFR (Non-Af Amer) BUN/Creatinine Ratio Glucose POC Glucose 141 H Calcium Phosphorus Magnesium Albumin Hep Bs Antigen Hep Bs Ag Confirmation Hep Bs Antibody, Quant Hep B Core IgM Ab PG Care Time/CCT Total # of Minutes Spent Total Time Spent with Patient: Total time spent is greater than 50% in coordination of care (as documented) at patient's floor/unit and/or counseling patient: Coding Level of Care Code 32225 SUB INP/OBS CARE 3/50MIN Diagnoses Acute kidney injury superimposed on CKD N17.9; N18.9 Acute hyperkalemia E87.5 Urethral stricture N35.919 UTI (urinary tract infection) N39.0
--- NOTE | 2022-10-13 10:40 | Electrocardiogram Report ---
Test Reason : Blood Pressure : / mmHG Vent. Rate : 073 BPM Atrial Rate : 066 BPM P-R Int : 000 ms QRS Dur : 138 ms QT Int : 454 ms P-R-T Axes : -23 -40 052 degrees QTc Int : 500 ms Poor data quality, interpretation may be adversely affected Probably sinus rhythm Left axis deviation Right bundle branch block Abnormal ECG Confirmed by Travis Holloway ([id number]) on 10/13/2022 10:39:52 AM Referred By: REFERRED SELF Confirmed By:Asim Holloway
[2022-10-13] MEDS: METOPROLOL TARTRATE 25 MG TAB PO SCH ×2 (11:51→21:15)
[2022-10-13] MEDS: COUGH DROP (SUGAR FREE) LOZ 24 LOZ/1 BOX BUCCAL PRN (11:53)
[2022-10-13] MEDS: predniSONE 20 MG TAB PO SCH (12:23)
--- NOTE | 2022-10-13 14:59 | Pharmacy Report ---
Pharmacy Glycemic Short Note 2 - Date of Service October 13, 2022 - Glycemic Short BSG Results (Last 24 hours): 10/12/22 10/12/22 10/12/22 16:37 20:28 23:57 Glucose POC Glucose 263 H 249 H 202 H 10/13/22 10/13/22 10/13/22 04:05 06:59 07:54 Glucose 131 H POC Glucose 188 H 141 H 10/13/22 11:50 Glucose POC Glucose 119 H OUTPATIENT ANTIDIABETIC REGIMEN: * Lantus 52 units SC qAM, 50 units SC qPM * Glipizide 10 mg PO BID * Empagliflozin 10 mg PO daily HbA1c: 9.7% (12/14/21) ASSESSMENT: 10/13: * Patient received total 140 units of insulin yesterday; 50 units basal and 90 units bolus. * BSGs yesterday were 059-330-184-249-202 mg/dl. Fasting BSG trended down to 131 mg/dl today AM. * Basal insulin AM dose increased to 60 units this morning. Added HS basal dose on a scale for tonight based on BSG. * Received dialysis this morning. Pre-lunch BSG was lower -119 mg/dl post- dialysis. * Prednisone 60 mg daily ordered to start at noon today. Novolog carb ratio tightened at noon. 10/12/22: * BSGs poorly controlled yesterday - steroid-induced hyperglycemia * Methylprednisolone has been discontinued (last dose 10/11) - nephrology holding off on additional steroids at this time * Patient agreeable to temporary dialysis, Permcath insertion today * BSGs remain elevated w/ lunch, but trending down from > 300 mg/dL this morning * Given steroid discontinuation, will hold off on further tightening of Novolog at this time * Maintain ACHS and ,04 checks tonight 10/11/22: * LC is an 86 year old male who presented to [facility] ED on 10/08 w/ fluid overload secondary to JUDI on CKD * BSGs significantly elevated yesterday (>500 mg/dL), due to inadequate initial insulin dosing and administration of methylprednisolone 1000 mg IV, pharmacy consulted for glycemic management in the afternoon * Insulin infusion initiated at time of consult for hyperglycemia and mild DKA on labs * Second of two doses of methylprednisolone IV given this morning PLAN FOR INPATIENT GLYCEMIC CONTROL: * Hold outpatient oral diabetes medications * Basal insulin * Lantus 60 units SC x 1 today AM * Lantus 10-20 units SC HS - 10 units for BSG less than 150 mg/dl, - 15 units for BSG 150-200 mg/dl, - 20 units for BSG greater than 200 mg/dl) * Reassess in AM * Bolus insulin * NovoLog per scale ACHS or Q6hrs while NPO * Goal Range: Low 110 mg/dL - High 140 mg/dL * Correction Factor: 12 mg/dL/unit * Nutritional / Prandial insulin per carb ratio of 1 unit per 3.5 grams CHO consumed * 04 checks this evening
[2022-10-13] MEDS: FINASTERIDE 5 MG TAB PO SCH (21:15)
[2022-10-13] MEDS: TAMSULOSIN HCL 0.4 MG CAP PO SCH (21:15)
[2022-10-13] MEDS: ROSUVASTATIN CALCIUM 10 MG TAB PO SCH (21:15)
[2022-10-14] MEDS: INSULIN ASPART PER UNIT CHARGE SC SCH ×6 (00:17→21:13)
[2022-10-14] MEDS: ALBUTEROL 0.083% NEBU SOLN 3 ML VIAL NEB SCH ×4 (00:57→19:21)
[2022-10-14] MEDS: LEVOTHYROXINE SODIUM 88 MCG TABLET PO SCH (04:24)
--- NOTE | 2022-10-14 07:08 | Hospitalist Progress Note ---
Date of Service October 14, 2022 Assessment & Plan (1) Fluid overload: Plan: 86yo Male with PMH CHF EF 60-65%, DM2, asthma, COPD, Hx. MS, DVT, hypothyroidism, CKD, HTN, HLD, chronic leg wound, GERD here for increased swelling in face, extremities, abd found to have JUDI on CKD. JUDI on CKD: -concern for ATN vs AIN with component of post-renal obstructive -Creat 6.19 on admission (baseline 2), trending down with dialysis -Hyponatremic, hyperkalemic. Fractional excretion of sodium 0.9% -CT A&P showed no evidence of hydronephrosis. Chronic appearing bladder wall thickening is likely due to chronic outlet obstruction -Urology consulted; Lopez placed. Allow for catheter for at least 1 week, can follow up w/ urology outpatient for voiding trial. -Nephrology consulted: -Possible ATN in setting of recent infection vs AIN from recent antibiotic use. -Treat suspected AIN w/ methylpred 1gm daily x3 doses-> plan to restart 60mg prednisone daily for the next 1-2 weeks then taper -Strict I&Os -Dialysis again today, plan for another session tomorrow - Continue Bumex BID as he continues to make urine -trend BMP Hyperkalemia: -potassium 6.1 on admission, starting to stabilze with dialysis - Received one dose of 5mg Lokelma on admission -Patient given multiple doses of insulin 10U w/ D5, calcium gluconate -started on Patiromer 8.4gm daily-> plan to stop as he started dialysis -Continue Bumex 2mg IV BID, as long as he continues to make urine Hyperglycemia in the setting of DM2 - hyperglycemia likely secondary to steroid use - Glycemic consult, appreciate recommendations Prostatitis: -cipro was stopped given renal function -urine culture 10/05 grew proteus vulgaris, repeat from 10/08 grew baylee glabrata - ID consulted. They do not believe he has prostatitis, will hold on further antibiotics - ID does not recommend treatment of baylee glabrata in urine Wheeze: -continue home inhalers -ordered albuterol q6hr nebulizer HTN, Hx. MS: -continue metoprolol, aspirin -hold losartan given JUDI BPH: -continue tamsulosin, increased to 0.8mg -continue finasteride HLD: -continue rosuvastatin, dose redcued to 10mg daily GERD: -continue protonix Anxiety: -continue clonapin, gabapentin (reduced to 100mg daily) Hypothyroidism -continue levothyroxine FENa: heart healthy DM2 fluid restriction 1.5L Code Status: DNR/DNI is POA DVT PPX: Eliquis restarted (2) Acute kidney injury superimposed on CKD: (3) DVT (deep venous thrombosis): (4) Prostatitis: (5) Acute hyperkalemia: (6) Abdominal distension: (7) Benign prostatic hyperplasia with urinary obstruction: (8) Hypothyroidism: (9) Hypertension: (10) Dyslipidemia: (11) CHF (congestive heart failure): (12) GERD (gastroesophageal reflux disease): (13) Diabetes: Admission and Anticipated Discharge Date Admission Date: October 08, 2022 Supervising Physician Co-Signing Physician Notes ATTESTATION I also saw the patient and confirmed aguayo portions of the history and exam. I agree with the impression and plan in the resident documentation, and as summarized below. Upon our midmorning exam, the patient was undergoing dialysis in the dialysis unit. He told us that he felt much improved. No complaints this morning. EXAM 152/67, 70, 16, 36.4, 95% on room air Pleasant alert. No distress appreciated. 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 Doing well no complaints. Overall feeling better since starting dialysis. Still making urine. Review of Systems Review of Systems: As per above Physical Exam Physical Exam: Constitutional: well-appearing, no acute distress HEENT: NCAT, no conjunctival injection CV: regular rhythm, no murmur appreciated, extremities well-perfused, 1+ LE edema Resp: CTABL, no wheezes/rales/rhonchi appreciated, no increased work of breathing GI: soft, nondistended, nontender, BS normoactive MSK: no gross deformities appreciated Skin: warm, dry, no rash appreciated Neuro: alert, oriented, no focal neurologic deficit appreciated Results & Data Results & Data Vital Signs (Past 12 Hours) Vital Signs Temp Pulse Pulse Pulse Resp BP Pulse Ox 10/14/22 03:00 36.4 C L 68 20 142/60 H 96 10/13/22 22:02 81 10/13/22 22:00 36.6 C 79 18 149/50 H 93 10/13/22 23:21 10/13/22 21:55 10/13/22 20:00 36.5 C 71 18 108/53 L 92 10/13/22 19:35 81 16 92 Pulse Ox O2 Del Method O2 Del Method 10/14/22 03:00 Room Air 10/13/22 22:02 10/13/22 22:00 Room Air 10/13/22 23:21 Room Air 10/13/22 21:55 93 Room Air 10/13/22 20:00 Room Air 10/13/22 19:35 Room Air Resident Activity Tracking Resident Involvement: Resident Care Provided Care Provided: Adult Hospital Medicine (4) Prostatitis Prostatitis type: acute Qualified Code(s): N41.0 - Acute prostatitis (8) Hypothyroidism Hypothyroidism type: unspecified Qualified Code(s): E03.9 - Hypothyroidism, unspecified (9) Hypertension Hypertension type: essential hypertension Qualified Code(s): I10 - Essential (primary) hypertension (11) CHF (congestive heart failure) Heart failure chronicity: unspecified Heart failure type: unspecified Qualified Code(s): I50.9 - Heart failure, unspecified (12) GERD (gastroesophageal reflux disease) Esophagitis presence: esophagitis presence not specified Qualified Code(s): K21.9 - Gastro-esophageal reflux disease without esophagitis (13) Diabetes Diabetes mellitus complication status: with hyperglycemia Diabetes mellitus alf insulin use: with alf use Diabetes mellitus type: type 2 Qualified Code(s): E11.65 - Type 2 diabetes mellitus with hyperglycemia; Z79.4 - oysterman (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
[2022-10-14 07:19] LABS: Basophils # (auto) 0.02 K/uL (0-0.2); Basophils % (auto) 0.2 %; Hematocrit (blood only) 31.6 % (42.0-52.0); Hemoglobin 11.4 g/dl (14.0-18.0); Immature Granulocytes # (auto) 0.14 K/uL (0.01-0.20); Immature Granulocytes % (auto) 1.5 %; Lymphocytes # (auto) 0.76 K/uL (1.2-3.4); Lymphocytes % (auto) 8.3 %; Mean Corpuscular Hemoglobin 31.6 pg (25.0-34.0); Mean Corpuscular Hgb Conc 36.1 g/dL (32.0-36.0); Mean Corpuscular Volume 87.5 fL (80.0-100.0); Mean Platelet Volume 9.4 fL (9.4-12.4); Monocytes # (auto) 0.44 K/uL (0.11-0.59); Monocytes % (auto) 4.8 %; Neutrophils # (auto) 7.78 K/uL (1.40-6.50); Neutrophils % (auto) 85.2 %; Platelet Count 173 K/uL (130-400); RDW Coefficient of Variation 13.3 % (11.5-14.5); RDW Standard Deviation 43.2 fL (36.4-46.3); Red Blood Count 3.61 M/uL (4.70-6.10); White Blood Count 9.14 K/ul (4.8-10.8)
[2022-10-14 07:52] LABS: Albumin Globulin Ratio 0.9 (0.9-2); Albumin Level 2.4 gm/dl (3.4-5.0); BUN Creatinine Ratio 16.8 (10-20); Bilirubin,Total 0.3 mg/dl (0.2-1.0); Creatinine Clr Calc Pharmacy 9.6 ml/min; Est GFR (African American) 8.2 ml/min; Est GFR (Non-African American) 7.1 ml/min; Globulin 2.6 gm/dl (2.5-4.0); Magnesium 2.4 mg/dl (1.7-2.4); Potassium 5.1 mmol/L (3.5-5.1)
[2022-10-14] MEDS: METOPROLOL TARTRATE 25 MG TAB PO SCH ×2 (09:26→21:14)
[2022-10-14] MEDS: SEVELAMER HCL 800 MG TABLET PO SCH ×3 (09:26→17:23)
--- NOTE | 2022-10-14 09:54 | Nephrology Progress Note ---
Date of Service October 14, 2022 Assessment & Plan (1) Acute kidney injury superimposed on CKD: Plan: JUDI superimposed on advanced CKD. Non-oliguric. Baseline creatinine ~2.3 mg/dL. Prognosis for recovery is guarded. TDC placed by Dr. Ramirez on 10/12. First dialysis treatment completed 10/13. 2nd treatment is being provided today. I will schedule 3rd treatment tomorrow AM. Orders for first dialysis treatment entered into the EHR today and reviewed with the section gang worker. Aj was seen and evaluated prior to and during HD. He is tolerating dialysis well. For suspected AIN, he completed methylprednisolone 1000 mg IV daily x 3 doses. Prednisone 60 mg daily started yesterday. Plan to continue 60 mg daily for 1-2 weeks prior to starting a taper of 10 mg every 3 days. Close outpatient follow up with nephrology will be required. Continue Bumex to encourage urine output. Maintain Lopez to gravity. DDx includes ATN in the setting of recent infections vs. AIN (potentially associated with ciprofloxacin or cephalexin). Low potassium diet. Document I/O's. Reduce rosuvastatin to 10 mg daily. Limit Eliquis to 2.5 mg BID. Gabapentin reduced from 400 mg daily to 100 mg daily. Losartan held. (2) Acute hyperkalemia: Plan: Low potassium diet. Bumex 2 mg IV BID. Repeat metabolic profile tomorrow AM. (3) Urethral stricture: Plan: Followed by Dr. Gunter as an outpatient. Maintain Lopez to gravity pending urology follow up. Appreciate urology consultation. CT reviewed. No obvious obstructive nephropathy. (4) UTI (urinary tract infection): Plan: Prior vulture +proteus vulgaris. Completed course of treatment. Avoid cephalosporins and fluoroquinolones for now. Admission and Anticipated Discharge Date Admission Date: October 08, 2022 Subjective No acute events overnight. Aj was seen and evaluated during HD this morning. He is tolerating treatment well. No complications with dialysis yesterday. Qb at goal. Clearance acceptable. Overall, he feels well and offers no complaints or concerns. Review of Systems Review of Systems: All systems reviewed & are unremarkable except as noted in HPI & below Physical Exam Constitutional: well developed and + frail appearing; no acute distress Eyes: no scleral abnormality and no corneal abnormality ENMT: Mouth: no oral mucosal abnormality and oral mucous membranes not dry Neck: normal visual inspection and trachea midline Respiratory: normal respiratory effort Auscultation: lungs clear to auscultation bilaterally Cardiovascular: Rate/Rhythm: regular rate Heart Sounds: normal S1 and normal S2 Extremities: + edema Musculoskeletal: Extremities: no cyanosis and no clubbing Skin: + turgor decreased and + ecchymosis; no jaundice Neurologic: Motor/Sensory: no tremor and no asterixis Psychiatric: Orientation: alert and oriented x 3 Results & Data Vital Signs (Past 12 Hours) Vital Signs Temp Pulse Pulse Pulse Resp BP BP 10/14/22 09:30 69 114/64 10/14/22 09:00 68 132/70 10/14/22 08:30 64 141/69 H 10/14/22 08:12 68 140/71 10/14/22 08:05 36.5 C 65 10/14/22 07:52 36.2 C L 69 20 171/66 H 10/14/22 07:45 66 10/14/22 07:36 65 14 10/14/22 03:00 36.4 C L 68 20 10/13/22 22:02 81 10/13/22 22:00 36.6 C 79 18 10/13/22 23:21 10/13/22 21:55 BP Pulse Ox Pulse Ox O2 Del Method O2 Del Method FiO2 10/14/22 09:30 10/14/22 09:00 10/14/22 08:30 10/14/22 08:12 10/14/22 08:05 10/14/22 07:52 94 Room Air 10/14/22 07:45 10/14/22 07:36 94 Room Air 21 10/14/22 03:00 142/60 H 96 Room Air 10/13/22 22:02 10/13/22 22:00 149/50 H 93 Room Air 10/13/22 23:21 Room Air 10/13/22 21:55 93 Room Air Laboratory Results Laboratory Results - last 24 hr 10/13/22 10/13/22 10/13/22 11:50 16:35 20:14 WBC RBC Hgb Hct MCV MCH MCHC RDW Std Deviation RDW Coeff of Adrian Plt Count MPV Immature Gran % (Auto) Neut % (Auto) Lymph % (Auto) Piatt % (Auto) Eos % (Auto) Baso % (Auto) Neut # (Auto) Lymph # (Auto) Piatt # (Auto) Eos # (Auto) Baso # (Auto) Immature Gran # (Auto) Sodium Potassium Chloride Carbon Dioxide Anion Gap BUN Creatinine Est Cr Clr Drug Dosing Est GFR ( Amer) Est GFR (Non-Af Amer) BUN/Creatinine Ratio Glucose POC Glucose 119 H 119 H 142 H Calcium Magnesium Total Bilirubin AST ALT Alkaline Phosphatase Total Protein Albumin Globulin Albumin/Globulin Ratio 10/13/22 10/14/22 10/14/22 23:53 04:07 06:24 WBC 9.14 RBC 3.61 L Hgb 11.4 L Hct 31.6 L MCV 87.5 MCH 31.6 MCHC 36.1 H RDW Std Deviation 43.2 RDW Coeff of Adrian 13.3 Plt Count 173 MPV 9.4 Immature Gran % (Auto) 1.5 Neut % (Auto) 85.2 Lymph % (Auto) 8.3 Piatt % (Auto) 4.8 Eos % (Auto) 0.0 Baso % (Auto) 0.2 Neut # (Auto) 7.78 H Lymph # (Auto) 0.76 L Piatt # (Auto) 0.44 Eos # (Auto) 0.00 Baso # (Auto) 0.02 Immature Gran # (Auto) 0.14 Sodium Potassium Chloride Carbon Dioxide Anion Gap BUN Creatinine Est Cr Clr Drug Dosing Est GFR ( Amer) Est GFR (Non-Af Amer) BUN/Creatinine Ratio Glucose POC Glucose 138 H 108 H Calcium Magnesium Total Bilirubin AST ALT Alkaline Phosphatase Total Protein Albumin Globulin Albumin/Globulin Ratio 10/14/22 10/14/22 10/14/22 06:24 07:48 07:49 WBC RBC Hgb Hct MCV MCH MCHC RDW Std Deviation RDW Coeff of Adrian Plt Count MPV Immature Gran % (Auto) Neut % (Auto) Lymph % (Auto) Piatt % (Auto) Eos % (Auto) Baso % (Auto) Neut # (Auto) Lymph # (Auto) Piatt # (Auto) Eos # (Auto) Baso # (Auto) Immature Gran # (Auto) Sodium 132 L Potassium 5.1 Chloride 100 Carbon Dioxide 21 Anion Gap 11 BUN 109 H D Creatinine 6.50 H* D Est Cr Clr Drug Dosing 9.6 Est GFR ( Amer) 8.2 Est GFR (Non-Af Amer) 7.1 BUN/Creatinine Ratio 16.8 Glucose 73 POC Glucose 69 L* 72 Calcium 8.0 L Magnesium 2.4 Total Bilirubin 0.3 AST 24 ALT 22 Alkaline Phosphatase 60 Total Protein 5.0 L Albumin 2.4 L Globulin 2.6 Albumin/Globulin Ratio 0.9 PG Care Time/CCT Total # of Minutes Spent Total Time Spent with Patient: Total time spent is greater than 50% in coordination of care (as documented) at patient's floor/unit and/or counseling patient: Coding Level of Care Code 93362 SUB INP/OBS CARE 3/50MIN Diagnoses Acute kidney injury superimposed on CKD N17.9; N18.9 Acute hyperkalemia E87.5 Urethral stricture N35.919 UTI (urinary tract infection) N39.0
[2022-10-14] MEDS: PANTOprazole 40 MG TAB PO SCH ×2 (11:40→21:12)
[2022-10-14] MEDS: BUMETANIDE 2 MG in SYRINGE 0 ML IV SCH ×2 (11:40→17:25)
[2022-10-14] MEDS: CEROVITE ADV FORMULA TAB PO SCH (11:40)
[2022-10-14] MEDS: GABAPENTIN 100 MG CAP PO SCH (11:41)
[2022-10-14] MEDS: APIXABAN 2.5 MG TAB PO SCH ×2 (11:41→21:13)
[2022-10-14] MEDS: ASPIRIN 81 MG ECTAB PO SCH (11:41)
[2022-10-14] MEDS: predniSONE 20 MG TAB PO SCH (11:41)
[2022-10-14] MEDS: FLUTICASONE/VILANTEROL 200/25MCG 14 PUFFS/INHALER INH SCH (11:42)
[2022-10-14] MEDS: UMECLIDINIUM BROMIDE 62.5MCG/BLISTER 7 PUFFS/INHALER INH SCH (11:42)
[2022-10-14] MEDS: clonazePAM 1 MG TAB PO SCH ×2 (11:48→21:12)
[2022-10-14] MEDS ORDERED: LANTUS PER UNIT CHARGE SQ ONE ×2 (12:15)
--- NOTE | 2022-10-14 12:29 | Pharmacy Report ---
Pharmacy Glycemic Short Note 2 - Date of Service October 14, 2022 - Glycemic Short BSG Results (Last 24 hours): 10/13/22 10/13/22 10/13/22 16:35 20:14 23:53 Glucose POC Glucose 119 H 142 H 138 H 10/14/22 10/14/22 10/14/22 04:07 06:24 07:48 Glucose 73 POC Glucose 108 H 69 L* 10/14/22 10/14/22 07:49 11:55 Glucose POC Glucose 72 150 H OUTPATIENT ANTIDIABETIC REGIMEN: * Lantus 52 units SC qAM, 50 units SC qPM * Glipizide 10 mg PO BID * Empagliflozin 10 mg PO daily HbA1c: 9.7% (12/14/21) ASSESSMENT: 10/14: * BSGs improved yesterday w/ episode of hypoglycemia this morning (69 mg/dL) * Continues on prednisone 60 mg PO daily today (likely to continue for 1-2 weeks) * Likely too much basal insulin yesterday, will decrease * Continue weight-based stress of 3 Novolog parameters * HD this morning 10/13: * Patient received total 140 units of insulin yesterday; 50 units basal and 90 units bolus. * BSGs yesterday were [phone] mg/dl. Fasting BSG trended down to 131 mg/dl today AM. * Basal insulin AM dose increased to 60 units this morning. Added HS basal dose on a scale for tonight based on BSG. * Received dialysis this morning. Pre-lunch BSG was lower -119 mg/dl post- dialysis. * Prednisone 60 mg daily ordered to start at noon today. Novolog carb ratio tightened at noon. 10/12/22: * BSGs poorly controlled yesterday - steroid-induced hyperglycemia * Methylprednisolone has been discontinued (last dose 10/11) - nephrology holding off on additional steroids at this time * Patient agreeable to temporary dialysis, Permcath insertion today * BSGs remain elevated w/ lunch, but trending down from > 300 mg/dL this morning * Given steroid discontinuation, will hold off on further tightening of Novolog at this time * Maintain ACHS and 00,04 checks tonight 10/11/22: * LC is an 86 year old male who presented to [place] ED on 10/08 w/ fluid overload secondary to JUDI on CKD * BSGs significantly elevated yesterday (>500 mg/dL), due to inadequate initial insulin dosing and administration of methylprednisolone 1000 mg IV, pharmacy consulted for glycemic management in the afternoon * Insulin infusion initiated at time of consult for hyperglycemia and mild DKA on labs * Second of two doses of methylprednisolone IV given this morning PLAN FOR INPATIENT GLYCEMIC CONTROL: * Hold outpatient oral diabetes medications * Basal insulin * Lantus 40 units SC with prednisone * Reassess in AM * Bolus insulin * NovoLog per scale ACHS or Q6hrs while NPO * Goal Range: Low 110 mg/dL - High 140 mg/dL * Correction Factor: 15 mg/dL/unit * Nutritional / Prandial insulin per carb ratio of 1 unit per 5 grams CHO consumed
[2022-10-14] MEDS: TAMSULOSIN HCL 0.4 MG CAP PO SCH (21:10)
[2022-10-14] MEDS: ROSUVASTATIN CALCIUM 10 MG TAB PO SCH (21:13)
[2022-10-14] MEDS: FINASTERIDE 5 MG TAB PO SCH (21:18)
[2022-10-15] MEDS: ALBUTEROL 0.083% NEBU SOLN 3 ML VIAL NEB SCH ×4 (00:17→19:38)
[2022-10-15] MEDS: LEVOTHYROXINE SODIUM 88 MCG TABLET PO SCH (05:52)
--- NOTE | 2022-10-15 07:13 | Hospitalist Progress Note ---
Date of Service October 15, 2022 Assessment & Plan (1) Fluid overload: Plan: 86yo Male with PMH CHF EF 60-65%, DM2, asthma, COPD, Hx. IL, DVT, hypothyroidism, CKD, HTN, HLD, chronic leg wound, GERD here for increased swelling in face, extremities, abd found to have JUDI on CKD. JUDI on CKD: -concern for ATN vs AIN with component of post-renal obstructive -Creat 6.19 on admission (baseline 2), trending down with dialysis -CT A&P showed no evidence of hydronephrosis. Chronic appearing bladder wall thickening is likely due to chronic outlet obstruction -Urology consulted; Lopez placed. Allow for catheter for at least 1 week, can follow up w/ urology outpatient for voiding trial. -Nephrology consulted: -Possible ATN in setting of recent infection vs AIN from recent antibiotic use. -Treat suspected AIN w/ methylpred 1gm daily x3 doses-> plan to restart 60mg prednisone daily for the next 1-2 weeks then taper -Strict I&Os -Dialysis today - Continue Bumex BID as he continues to make urine -trend BMP Hyperkalemia: -potassium 6.1 on admission, starting to stabilize with dialysis -Continue Bumex 2mg IV BID, as long as he continues to make urine Hyperglycemia in the setting of DM2 - hyperglycemia likely secondary to steroid use - Glycemic consult, appreciate recommendations - Hemoglobin a1c on this admission= 11.5 Prostatitis: -cipro was stopped given renal function -urine culture 10/05 grew proteus vulgaris, repeat from 10/08 grew baylee glabrata - ID consulted. They do not believe he has prostatitis, will hold on further antibiotics - ID does not recommend treatment of baylee glabrata in urine Wheeze: -continue home inhalers -ordered albuterol q6hr nebulizer HTN, Hx. IL: -continue metoprolol, aspirin -hold losartan given JUDI BPH: -continue tamsulosin, increased to 0.8mg -continue finasteride HLD: -continue rosuvastatin, dose redcued to 10mg daily GERD: -continue protonix Anxiety: -continue clonapin, gabapentin (reduced to 100mg daily) Hypothyroidism -continue levothyroxine FENa: heart healthy DM2 fluid restriction 1.5L Code Status: DNR/DNI is POA DVT PPX: Eliquis (2) Acute kidney injury superimposed on CKD: (3) DVT (deep venous thrombosis): (4) Prostatitis: (5) Acute hyperkalemia: (6) Abdominal distension: (7) Benign prostatic hyperplasia with urinary obstruction: (8) Hypothyroidism: (9) Hypertension: (10) Dyslipidemia: (11) CHF (congestive heart failure): (12) GERD (gastroesophageal reflux disease): (13) Diabetes: Admission and Anticipated Discharge Date Admission Date: October 08, 2022 Supervising Physician Co-Signing Physician Notes ATTESTATION I also saw the patient and confirmed aguayo portions of the history and exam. I agree with the impression and plan in the resident documentation, and as summarized below. He is again seen in the dialysis unit. He has no complaints. He is very comfortable with the way things are going. He has come to terms with being on dialysis. EXAM 178/63, 72, 18, 36.4, 96% room air Pleasant alert. No distress appreciated. Heart regular Lungs clear with nonlabored respirations DATA Labs Sodium 135, potassium 4.7, BUN 83, creatinine 4.37 IMPRESSION & PLAN JUDI on CKD-IV in the setting of chronic HFpEF Appreciate nephrology consultation Hemodialysis, tolerating well Continue prednisone 60 mg Diabetes with hyperglycemia He is a brittle diabetic with difficult control as an outpatient, with frequent episodes of hypoglycemia and poor hypoglycemic awareness Prednisone obviously increasing his insulin demand, although really no way to avoid Appreciate glycemic consult and pharmacy input Additional per resident documentation Subjective Saw Chang in dialysis this morning. Doing well, no complaints. Tolerating dialysis well. Continues to make urine. Does note that he had some trouble sleeping last night Review of Systems Review of Systems: As per above Physical Exam Physical Exam: Constitutional: well-appearing, no acute distress HEENT: NCAT, no conjunctival injection CV: extremities well-perfused, 1+ LE edema Resp: CTABL, no wheezes/rales/rhonchi appreciated, no increased work of breathing MSK: no gross deformities appreciated Skin: warm, dry, no rash appreciated Neuro: alert, oriented, no focal neurologic deficit appreciated Results & Data Results & Data Vital Signs (Past 12 Hours) Vital Signs Temp Pulse Pulse Resp BP Pulse Ox Pulse Ox 10/15/22 04:00 36.3 C L 64 20 188/81 H 96 10/14/22 22:00 36.4 C L 72 20 167/70 H 95 10/14/22 22:00 78 10/14/22 22:45 10/14/22 22:00 95 10/14/22 20:03 36.9 C 86 18 144/66 H 95 10/14/22 19:21 73 16 96 O2 Del Method O2 Del Method 10/15/22 04:00 Room Air 10/14/22 22:00 Room Air 10/14/22 22:00 10/14/22 22:45 Room Air 10/14/22 22:00 Room Air 10/14/22 20:03 Room Air 10/14/22 19:21 Room Air Resident Activity Tracking Resident Involvement: Resident Care Provided Care Provided: Adult Hospital Medicine (4) Prostatitis Prostatitis type: acute Qualified Code(s): N41.0 - Acute prostatitis (8) Hypothyroidism Hypothyroidism type: unspecified Qualified Code(s): E03.9 - Hypothyroidism, unspecified (9) Hypertension Hypertension type: essential hypertension Qualified Code(s): I10 - Essential (primary) hypertension (11) CHF (congestive heart failure) Heart failure chronicity: unspecified Heart failure type: unspecified Qualified Code(s): I50.9 - Heart failure, unspecified (12) GERD (gastroesophageal reflux disease) Esophagitis presence: esophagitis presence not specified Qualified Code(s): K21.9 - Gastro-esophageal reflux disease without esophagitis (13) Diabetes Diabetes mellitus complication status: with hyperglycemia Diabetes mellitus correction insulin use: with correction use Diabetes mellitus type: type 2 Qualified Code(s): E11.65 - Type 2 diabetes mellitus with hyperglycemia; Z79.4 - superintendent container terminal (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
[2022-10-15] MEDS: METOPROLOL TARTRATE 25 MG TAB PO SCH ×3 (07:34→20:28)
[2022-10-15] MEDS: BUMETANIDE 2 MG in SYRINGE 0 ML IV SCH ×2 (07:49→17:34)
[2022-10-15] MEDS: GABAPENTIN 100 MG CAP PO SCH (07:49)
[2022-10-15] MEDS: PANTOprazole 40 MG TAB PO SCH ×2 (07:50→20:27)
[2022-10-15] MEDS: predniSONE 20 MG TAB PO SCH (07:50)
[2022-10-15] MEDS: SEVELAMER HCL 800 MG TABLET PO SCH ×3 (07:50→17:24)
[2022-10-15] MEDS: CEROVITE ADV FORMULA TAB PO SCH (07:51)
[2022-10-15] MEDS: FLUTICASONE/VILANTEROL 200/25MCG 14 PUFFS/INHALER INH SCH (07:51)
[2022-10-15] MEDS: ASPIRIN 81 MG ECTAB PO SCH (07:51)
[2022-10-15] MEDS: APIXABAN 2.5 MG TAB PO SCH ×2 (07:51→20:28)
[2022-10-15] MEDS: clonazePAM 1 MG TAB PO SCH ×2 (07:56→20:41)
[2022-10-15] MEDS: UMECLIDINIUM BROMIDE 62.5MCG/BLISTER 7 PUFFS/INHALER INH SCH (07:58)
[2022-10-15] MEDS: INSULIN ASPART PER UNIT CHARGE SC SCH ×4 (08:05→20:27)
[2022-10-15] MEDS: LANTUS PER UNIT CHARGE SQ SCH (08:10)
--- NOTE | 2022-10-15 08:51 | Nephrology Progress Note ---
Date of Service October 15, 2022 Assessment & Plan (1) Acute kidney injury superimposed on CKD: Plan: * JUDI likely due to AIN (cipro, cephalexin). Solumedrol 1g IV daily x 3d has been completed. Prednisone 60 mg daily started 10/13/22. Plan to continue 60 mg daily for 1-2 weeks prior to starting a taper of 10 mg every 3 days. Close outpatient follow up with nephrology will be required * R IJ TCC placed by Dr. Ramirez 10/12/22. 1st HD completed 10/13 * Maintain Lopez catheter for documentation of I&O's * Continue to hold ARB therapy * Patient is nonoliguric. Continue diuretic therapy to promote diuresis * Monitor PRP, volume status (2) Chronic kidney disease, stage III (moderate): Plan: * Baseline Cr 2-2.3. Primary Shot Blaster is Dr. Dixon (3) UTI (urinary tract infection): Plan: * Prior culture +proteus vulgaris. Completed course of treatment. Avoid cephalosporins and fluoroquinolones for now (4) Urethral stricture: Plan: * Followed by Dr. Gunter as an outpatient * Maintain Lopez to gravity pending urology follow up * CT reviewed. No obvious obstructive nephropathy Admission and Anticipated Discharge Date Admission Date: October 08, 2022 Subjective Mr. Monroy was evaluated prior to HD this morning. He denied fever, skin rash, flank pain or gross hematuria. He voiced no new medical concerns. Mr. Monroy is scheduled for his 3rd HD treatment today Review of Systems Constitutional: no fever Eyes: no worsening vision Ear, Nose, Mouth, Throat: no problem reported Respiratory: no dyspnea Cardiovascular: + edema; no chest pain and no palpitations Gastrointestinal: no abdominal pain Physical Exam Constitutional: not in distress Eyes: PERRL, conjunctivae normal, anicteric sclerae ENMT: external ear and nose normal, oropharynx normal Neck: trachea midline, no thyromegaly R IJ TCC with clean, dry dressing Respiratory: normal respiratory effort, lungs clear to auscultation Cardiovascular: Rate/Rhythm: regular rate and regular rhythm Heart Sounds: no murmur and no cardiac rub Extremities: + edema (3+ pretibial pitting edema) Gastrointestinal (Abdomen): normal bowel sounds, soft, nontender, no hepatosplenomegaly Musculoskeletal: no CVA tenderness Skin: no rashes, warm and dry Results & Data Vital Signs (Past 12 Hours) Vital Signs Temp Pulse Pulse Pulse Resp BP BP 10/15/22 08:07 72 178/63 H 10/15/22 07:23 36.4 C L 63 20 193/71 H 10/15/22 07:55 83 18 10/15/22 07:40 64 10/15/22 04:00 36.3 C L 64 20 188/81 H 10/14/22 22:00 36.4 C L 72 20 167/70 H 10/14/22 22:00 78 10/14/22 22:45 10/14/22 22:00 Pulse Ox Pulse Ox O2 Del Method O2 Del Method 10/15/22 08:07 10/15/22 07:23 95 Room Air 10/15/22 07:55 96 Room Air 10/15/22 07:40 10/15/22 04:00 96 Room Air 10/14/22 22:00 95 Room Air 10/14/22 22:00 10/14/22 22:45 Room Air 10/14/22 22:00 95 Room Air Laboratory Results Laboratory Tests 09/22/17 10/05/22 10/13/22 07:17 10:50 06:59 Sodium Potassium Chloride Carbon Dioxide BUN Creatinine 2.00 H 2.34 H 8.59 H* D Calcium Albumin 10/14/22 10/15/22 06:24 08:13 Sodium 135 L Potassium 4.7 Chloride 105 Carbon Dioxide 19 L BUN 83 H D Creatinine 6.50 H* D 4.37 H D Calcium 7.8 L Albumin 2.6 L Diagnostic Findings 10/08/[address]: Kidneys and ureters - perinephric stranding is noted bilaterally. Left lower pole cyst is seen. No hydronephrosis is seen. Impression - no acute abnormality and in particular no evidence of hydronephrosis. Chronic appearing bladder wall thickening is likely due to chronic outlet obstruction, although superimposed cystitis cannot be entirely excluded. PG Care Time/CCT Total # of Minutes Spent Total Time Spent with Patient: Total time spent is greater than 50% in coordination of care (as documented) at patient's floor/unit and/or counseling patient: Coding Level of Care Code 96284 SUB INP/OBS CARE 3/50MIN Diagnoses Acute kidney injury superimposed on CKD N17.9; N18.9 Chronic kidney disease, stage III (moderate) N18.30 UTI (urinary tract infection) N39.0 Urethral stricture N35.919
[2022-10-15 09:19] LABS: Albumin Level 2.6 gm/dl (3.4-5.0); Bilirubin,Total 0.4 mg/dl (0.2-1.0); Calcium 7.8 mg/dl (8.6-10.3); Magnesium 2.3 mg/dl (1.7-2.4); Potassium 4.7 mmol/L (3.5-5.1)
[2022-10-15 09:36] LABS: Albumin Globulin Ratio 0.9 (0.9-2); Est GFR (African American) 13.2 ml/min; Est GFR (Non-African American) 11.4 ml/min; Globulin 2.8 gm/dl (2.5-4.0); Phosphorus 6.6 mg/dl (2.5-4.9); Total Protein 5.4 gm/dl (6.0-8.3)
[2022-10-15] MEDS: ROSUVASTATIN CALCIUM 10 MG TAB PO SCH (20:27)
[2022-10-15] MEDS: TAMSULOSIN HCL 0.4 MG CAP PO SCH (20:28)
[2022-10-15] MEDS: FINASTERIDE 5 MG TAB PO SCH (20:28)
[2022-10-16] MEDS: ALBUTEROL 0.083% NEBU SOLN 3 ML VIAL NEB SCH (01:49)
[2022-10-16] MEDS: LEVOTHYROXINE SODIUM 88 MCG TABLET PO SCH (05:41)
--- NOTE | 2022-10-16 06:53 | Hospitalist Progress Note ---
Date of Service October 16, 2022 Assessment & Plan (1) Fluid overload: Plan: 86yo Male with PMH CHF EF 60-65%, DM2, asthma, COPD, Hx. MD, DVT, hypothyroidism, CKD, HTN, HLD, chronic leg wound, GERD here for increased swelling in face, extremities, abd found to have JUDI on CKD. JUDI on CKD: -concern for ATN vs AIN with component of post-renal obstructive -Creat 6.19 on admission (baseline 2), trending down with dialysis -CT A&P showed no evidence of hydronephrosis. Chronic appearing bladder wall thickening is likely due to chronic outlet obstruction -Urology consulted; Lopez placed. Allow for catheter for at least 1 week, can follow up w/ urology outpatient for voiding trial. -Nephrology consulted: -Possible ATN in setting of recent infection vs AIN from recent antibiotic use. -Treat suspected AIN w/ methylpred 1gm daily x3 doses-> plan to restart 60mg prednisone daily for the next 1-2 weeks then taper -Strict I&Os -Dialysis yesterday, plan for dialysis again tomorrow - Continue Bumex BID as he continues to make urine -trend BMP Chest Pain - Likely anxiety, less likely cardiac - No events on telemetry, vitals stable - If reoccurs consider further workup Hyperkalemia: -potassium 6.1 on admission, starting to stabilize with dialysis -Continue Bumex 2mg IV BID, as long as he continues to make urine Hyperglycemia in the setting of DM2 - hyperglycemia likely secondary to steroid use - Glycemic consult, appreciate recommendations - Hemoglobin a1c on this admission= 11.5 Prostatitis: -cipro was stopped given renal function -urine culture 10/05 grew proteus vulgaris, repeat from 10/08 grew baylee glabrata - ID consulted. They do not believe he has prostatitis, will hold on further an tibiotics - ID does not recommend treatment of baylee glabrata in urine Wheeze: -continue home inhalers -ordered albuterol q6hr nebulizer HTN, Hx. MD: -continue metoprolol, aspirin -hold losartan given UJDI BPH: -continue tamsulosin, increased to 0.8mg -continue finasteride HLD: -continue rosuvastatin, dose redcued to 10mg daily GERD: -continue protonix Anxiety: -continue clonapin, gabapentin (reduced to 100mg daily) Hypothyroidism -continue levothyroxine FENa: heart healthy DM2 fluid restriction 1.5L Code Status: DNR/DNI is POA DVT PPX: Eliquis (2) Acute kidney injury superimposed on CKD: (3) DVT (deep venous thrombosis): (4) Prostatitis: (5) Acute hyperkalemia: (6) Abdominal distension: (7) Benign prostatic hyperplasia with urinary obstruction: (8) Hypothyroidism: (9) Hypertension: (10) Dyslipidemia: (11) CHF (congestive heart failure): (12) GERD (gastroesophageal reflux disease): (13) Diabetes: Admission and Anticipated Discharge Date Admission Date: October 08, 2022 Supervising Physician Co-Signing Physician Notes ATTESTATION I also saw the patient and confirmed aguayo portions of the history and exam. I agree with the impression and plan in the resident documentation, and as summarized below. Upon our examination, the patient is eating lunch. He has no complaints. He admits that he was somewhat confused yesterday when we had talked (he had told his that we had told him that he had cancer). He has since realized this confusion and apologizes today. EXAM 167/72, 63, 18, 36.5, 97% on room air Pleasant alert. No distress appreciated. 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 No complaints. Does note that yesterday after his had left for the day he started to experience some chest pressure. Did not radiate. Lasted for 15 minutes. Has not recurred. Did not notify nursing till few hours after. Review of Systems Review of Systems: As per above Physical Exam Physical Exam: Constitutional: well-appearing, no acute distress HEENT: NCAT, no conjunctival injection CV: extremities well-perfused, 1+ LE edema Resp: CTABL, no wheezes/rales/rhonchi appreciated, no increased work of breathing MSK: no gross deformities appreciated Skin: warm, dry, no rash appreciated Neuro: alert, oriented, no focal neurologic deficit appreciated Results & Data Results & Data Vital Signs (Past 12 Hours) Vital Signs Temp Pulse Pulse Pulse Resp BP BP 10/16/22 03:00 36.3 C L 63 20 144/68 H 10/15/22 22:00 36.3 C L 70 18 172/74 H 10/15/22 22:00 89 10/15/22 22:00 10/15/22 22:00 10/15/22 20:00 36.3 C L 67 20 176/81 H Pulse Ox Pulse Ox O2 Del Method O2 Del Method 10/16/22 03:00 97 Room Air 10/15/22 22:00 98 Room Air 10/15/22 22:00 10/15/22 22:00 95 Room Air 10/15/22 22:00 Room Air 10/15/22 20:00 97 Room Air Resident Activity Tracking Resident Involvement: Resident Care Provided Care Provided: Adult Hospital Medicine (4) Prostatitis Prostatitis type: acute Qualified Code(s): N41.0 - Acute prostatitis (8) Hypothyroidism Hypothyroidism type: unspecified Qualified Code(s): E03.9 - Hypothyroidism, unspecified (9) Hypertension Hypertension type: essential hypertension Qualified Code(s): I10 - Essential (primary) hypertension (11) CHF (congestive heart failure) Heart failure chronicity: unspecified Heart failure type: unspecified Qualified Code(s): I50.9 - Heart failure, unspecified (12) GERD (gastroesophageal reflux disease) Esophagitis presence: esophagitis presence not specified Qualified Code(s): K21.9 - Gastro-esophageal reflux disease without esophagitis (13) Diabetes Diabetes mellitus complication status: with hyperglycemia Diabetes mellitus [facility] insulin use: with remote computer terminal operator use Diabetes mellitus type: type 2 Qualified Code(s): E11.65 - Type 2 diabetes mellitus with hyperglycemia; Z79.4 - FDC (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
[2022-10-16] MEDS: APIXABAN 2.5 MG TAB PO SCH ×2 (07:38→21:37)
[2022-10-16] MEDS: METOPROLOL TARTRATE 25 MG TAB PO SCH ×2 (07:38→21:37)
[2022-10-16] MEDS: PANTOprazole 40 MG TAB PO SCH ×2 (07:39→21:37)
[2022-10-16] MEDS: ASPIRIN 81 MG ECTAB PO SCH (07:39)
[2022-10-16] MEDS: CEROVITE ADV FORMULA TAB PO SCH (07:39)
[2022-10-16] MEDS: SEVELAMER HCL 800 MG TABLET PO SCH ×3 (07:39→17:40)
[2022-10-16] MEDS: predniSONE 20 MG TAB PO SCH (07:39)
[2022-10-16] MEDS: GABAPENTIN 100 MG CAP PO SCH (07:39)
[2022-10-16] MEDS: UMECLIDINIUM BROMIDE 62.5MCG/BLISTER 7 PUFFS/INHALER INH SCH (07:42)
[2022-10-16] MEDS: FLUTICASONE/VILANTEROL 200/25MCG 14 PUFFS/INHALER INH SCH (07:43)
[2022-10-16 07:44] LABS: Hematocrit (blood only) 32.2 % (42.0-52.0); Hemoglobin 11.3 g/dl (14.0-18.0); Mean Corpuscular Hemoglobin 31.7 pg (25.0-34.0); Mean Corpuscular Hgb Conc 35.1 g/dL (32.0-36.0); Mean Corpuscular Volume 90.2 fL (80.0-100.0); Mean Platelet Volume 9.2 fL (9.4-12.4); Platelet Count 163 K/uL (130-400); RDW Coefficient of Variation 13.4 % (11.5-14.5); RDW Standard Deviation 44.2 fL (36.4-46.3); Red Blood Count 3.57 M/uL (4.70-6.10); White Blood Count 11.59 K/ul (4.8-10.8)
[2022-10-16] MEDS: clonazePAM 1 MG TAB PO SCH ×2 (07:46→21:37)
[2022-10-16 08:02] LABS: BUN Creatinine Ratio 21.4 (10-20); Calcium 7.8 mg/dl (8.6-10.3); Creatinine Clr Calc Pharmacy 18.2 ml/min; Est GFR (African American) 18.4 ml/min; Est GFR (Non-African American) 15.9 ml/min; Potassium 4.5 mmol/L (3.5-5.1)
--- NOTE | 2022-10-16 08:52 | Nephrology Progress Note ---
Date of Service October 16, 2022 Assessment & Plan (1) Acute kidney injury superimposed on CKD: Plan: * JUDI likely due to AIN (cipro, cephalexin). Solumedrol 1g IV daily x 3d has been completed. Prednisone 60 mg daily started 10/13/22. Plan to continue 60 mg daily for 1-2 weeks prior to starting a taper of 10 mg every 3 days. Close outpatient follow up with nephrology will be required * R IJ TCC placed by Dr. Ramirez 10/12/22. 1st HD completed 10/13 * Nonoliguric, 925 cc UO last 24 hrs. Maintain Lopez catheter for documentation of I&O's * Continue diuretic therapy to promote diuresis * Continue to hold ARB therapy * Monitor PRP, volume status * Will schedule next HD for am to continue ultrafiltration (2) Chronic kidney disease, stage III (moderate): Plan: * Baseline Cr 2-2.3. Primary Chemists is Dr. Dixon (3) UTI (urinary tract infection): Plan: * Prior culture +proteus vulgaris. Completed course of treatment. Avoid ce phalosporins and fluoroquinolones for now (4) Urethral stricture: Plan: * Followed by Dr. Gunter as an outpatient * Maintain Lopez to gravity pending urology follow up * CT reviewed. No obvious obstructive nephropathy Admission and Anticipated Discharge Date Admission Date: October 08, 2022 Subjective Mr. Monroy was evaluated in his hospital room this morning. His (Sveta) was present at bedside. Mr. Monroy denied fever, skin rash, flank pain or gross hematuria. He voiced no new medical concerns. He was dialyzed yesterday for 3 hrs w/ 2L UF. There were no complications Review of Systems Constitutional: no fever Eyes: no worsening vision Ear, Nose, Mouth, Throat: no problem reported Respiratory: no dyspnea Cardiovascular: + edema; no chest pain and no palpitations Gastrointestinal: no abdominal pain Physical Exam Constitutional: not in distress Eyes: PERRL, conjunctivae normal, anicteric sclerae ENMT: external ear and nose normal, oropharynx normal Neck: trachea midline, no thyromegaly Respiratory: normal respiratory effort, lungs clear to auscultation Cardiovascular: Rate/Rhythm: regular rate and regular rhythm Heart Sounds: no murmur and no cardiac rub Extremities: + edema (3+ pretibial pitting edema) Gastrointestinal (Abdomen): normal bowel sounds, soft, nontender, no hepatosplenomegaly Skin: no rashes, warm and dry Results & Data Vital Signs (Past 12 Hours) Vital Signs Temp Pulse Pulse Pulse Resp BP BP 10/16/22 07:37 36.5 C 63 18 167/72 H 10/16/22 07:03 60 10/16/22 03:00 36.3 C L 63 20 144/68 H 10/15/22 22:00 36.3 C L 70 18 172/74 H 10/15/22 22:00 89 10/15/22 22:00 10/15/22 22:00 Pulse Ox Pulse Ox O2 Del Method O2 Del Method 10/16/22 07:37 97 Room Air 10/16/22 07:03 10/16/22 03:00 97 Room Air 10/15/22 22:00 98 Room Air 10/15/22 22:00 10/15/22 22:00 95 Room Air 10/15/22 22:00 Room Air Laboratory Results Laboratory Tests 10/16/22 10/16/22 07:16 07:16 WBC 11.59 H Hgb 11.3 L Hct 32.2 L Plt Count 163 Sodium 136 Potassium 4.5 Chloride 105 Carbon Dioxide 25 BUN 71 H Creatinine 3.32 H D Glucose 118 H Coding Level of Care Code 01484 SUB INP/OBS CARE 3/50MIN Diagnoses Acute kidney injury superimposed on CKD N17.9; N18.9 Chronic kidney disease, stage III (moderate) N18.30 UTI (urinary tract infection) N39.0 Urethral stricture N35.919
[2022-10-16] MEDS: INSULIN ASPART PER UNIT CHARGE SC SCH ×4 (09:13→21:05)
[2022-10-16] MEDS: LANTUS PER UNIT CHARGE SQ SCH (09:13)
[2022-10-16] MEDS: BUMETANIDE 2 MG in SYRINGE 0 ML IV SCH ×2 (09:15→17:39)
[2022-10-16] MEDS: ROSUVASTATIN CALCIUM 10 MG TAB PO SCH (21:37)
[2022-10-16] MEDS: TAMSULOSIN HCL 0.4 MG CAP PO SCH (21:38)
[2022-10-16] MEDS: FINASTERIDE 5 MG TAB PO SCH (21:38)
[2022-10-17] MEDS: LEVOTHYROXINE SODIUM 88 MCG TABLET PO SCH (05:38)
[2022-10-17 06:59] LABS: Hematocrit (blood only) 32.5 % (42.0-52.0); Hemoglobin 11.4 g/dl (14.0-18.0); Mean Corpuscular Hemoglobin 31.5 pg (25.0-34.0); Mean Corpuscular Hgb Conc 35.1 g/dL (32.0-36.0); Mean Corpuscular Volume 89.8 fL (80.0-100.0); Mean Platelet Volume 9.2 fL (9.4-12.4); Platelet Count 172 K/uL (130-400); RDW Coefficient of Variation 13.2 % (11.5-14.5); RDW Standard Deviation 43.9 fL (36.4-46.3); Red Blood Count 3.62 M/uL (4.70-6.10)
[2022-10-17] MEDS ORDERED: SODIUM CHLORIDE 0.9% 1000ML 1,000 ML IV PRN (07:00)
--- NOTE | 2022-10-17 07:25 | Hospitalist Progress Note ---
Date of Service October 17, 2022 Assessment & Plan (1) Fluid overload: Plan: 86yo Male with PMH CHF EF 60-65%, DM2, asthma, COPD, Hx. [place], DVT, hypothyroidism, CKD, HTN, HLD, chronic leg wound, GERD here for increased swelling in face, extremities, and found to have JUDI on CKD. JUDI on CKD: -concern for ATN vs AIN with component of post-renal obstructive -Creat 6.19 on admission (baseline 2), trending down with dialysis -CT A&P showed no evidence of hydronephrosis. Chronic appearing bladder wall thickening is likely due to chronic outlet obstruction -Urology consulted; Lopez placed. Allow for catheter for at least 1 week, can follow up w/ urology outpatient for voiding trial. -Nephrology consulted: -Possible ATN in setting of recent infection vs AIN from recent antibiotic use. -Treat suspected AIN w/ methylpred 1gm daily x3 doses-> plan to restart 60mg prednisone daily for the next 1-2 weeks then taper -Strict I&Os -Dialysis this morning - Continue Bumex BID as he continues to make urine -trend BMP Nausea - Could be secondary to steroid use - KUB pending Hyperkalemia: -potassium 6.1 on admission, starting to stabilize with dialysis -Continue Bumex 2mg IV BID, as long as he continues to make urine Hyperglycemia in the setting of DM2 - hyperglycemia likely secondary to steroid use - Glycemic consult, appreciate recommendations - Hemoglobin a1c on this admission= 11.5 Prostatitis: -cipro was stopped given renal function -urine culture 10/05 grew proteus vulgaris, repeat from 10/08 grew baylee glabrata - ID consulted. They do not believe he has prostatitis, will hold on further antibiotics - ID does not recommend treatment of baylee glabrata in urine Wheeze: -continue home inhalers -ordered albuterol q6hr nebulizer HTN, Hx. [place]: -continue metoprolol, aspirin -hold losartan given JUDI BPH: -continue tamsulosin, increased to 0.8mg -continue finasteride HLD: -continue rosuvastatin, dose redcued to 10mg daily GERD: -continue protonix Anxiety: -continue clonapin, gabapentin (reduced to 100mg daily) Hypothyroidism -continue levothyroxine FENa: heart healthy DM2 fluid restriction 1.5L Code Status: DNR/DNI is POA DVT PPX: Ata (2) Acute kidney injury superimposed on CKD: (3) DVT (deep venous thrombosis): (4) Prostatitis: (5) Acute hyperkalemia: (6) Abdominal distension: (7) Benign prostatic hyperplasia with urinary obstruction: (8) Hypothyroidism: (9) Hypertension: (10) Dyslipidemia: (11) CHF (congestive heart failure): (12) GERD (gastroesophageal reflux disease): (13) Diabetes: Admission and Anticipated Discharge Date Admission Date: October 08, 2022 Supervising Physician Co-Signing Physician Notes I personally examined the patient and verified all aguayo points of history and exam, discussed case, and agree with decision making with Dr Christian feeling good on HD. nauseated earlier. now better vitals noted nad heent nc at mmm breathing unlabored no accessory muscles good effort skin no rashes no pallor or icterus AIN/ARF - HD. for rehab. otherwise as above. doing well overall. Subjective Chang is doing well this morning, no complaints. Was getting ready to go up to dialysis when I saw him. Was nauseous in dialysis and did have an episode of emesis. Review of Systems Review of Systems: As per above Physical Exam Physical Exam: Constitutional: well-appearing, no acute distress HEENT: NCAT, no conjunctival injection CV: extremities well-perfused, 1+ LE edema Resp: CTABL, no wheezes/rales/rhonchi appreciated, no increased work of breathing MSK: no gross deformities appreciated Skin: warm, dry, no rash appreciated Neuro: alert, oriented, no focal neurologic deficit appreciated Results & Data Results & Data Vital Signs (Past 12 Hours) Vital Signs Temp Pulse Pulse Pulse Resp BP Pulse Ox 10/17/22 07:00 58 L 10/17/22 04:19 36.3 C L 58 L 16 149/61 H 95 10/16/22 23:15 36.3 C L 69 16 173/82 H 95 10/16/22 22:33 72 10/16/22 23:00 10/16/22 22:00 10/16/22 19:41 36.3 C L 64 16 180/75 H 98 Pulse Ox O2 Del Method O2 Del Method 10/17/22 07:00 10/17/22 04:19 Room Air 10/16/22 23:15 Room Air 10/16/22 22:33 10/16/22 23:00 Room Air 10/16/22 22:00 95 Room Air 10/16/22 19:41 Room Air Resident Activity Tracking Resident Involvement: Resident Care Provided Care Provided: Adult Hospital Medicine (4) Prostatitis Prostatitis type: acute Qualified Code(s): N41.0 - Acute prostatitis (8) Hypothyroidism Hypothyroidism type: unspecified Qualified Code(s): E03.9 - Hypothyroidism, unspecified (9) Hypertension Hypertension type: essential hypertension Qualified Code(s): I10 - Essential (primary) hypertension (11) CHF (congestive heart failure) Heart failure chronicity: unspecified Heart failure type: unspecified Qualified Code(s): I50.9 - Heart failure, unspecified (12) GERD (gastroesophageal reflux disease) Esophagitis presence: esophagitis presence not specified Qualified Code(s): K21.9 - Gastro-esophageal reflux disease without esophagitis (13) Diabetes Diabetes mellitus complication status: with hyperglycemia Diabetes mellitus intermediate insulin use: with intermediate use Diabetes mellitus type: type 2 Qualified Code(s): E11.65 - Type 2 diabetes mellitus with hyperglycemia; Z79.4 - predatory animal exterminator (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
[2022-10-17 07:47] LABS: Calcium 7.8 mg/dl (8.6-10.3)
[2022-10-17 07:52] LABS: BUN Creatinine Ratio 24.9 (10-20); Creatinine Clr Calc Pharmacy 17.4 ml/min; Est GFR (African American) 17.4 ml/min
[2022-10-17] MEDS: SEVELAMER HCL 800 MG TABLET PO SCH ×3 (08:02→17:35)
[2022-10-17] MEDS: APIXABAN 2.5 MG TAB PO SCH ×2 (08:02→21:01)
[2022-10-17] MEDS: PANTOprazole 40 MG TAB PO SCH ×2 (08:02→21:01)
[2022-10-17] MEDS: ASPIRIN 81 MG ECTAB PO SCH (08:02)
[2022-10-17] MEDS: GABAPENTIN 100 MG CAP PO SCH (08:02)
[2022-10-17] MEDS: predniSONE 20 MG TAB PO SCH (08:03)
[2022-10-17] MEDS: CEROVITE ADV FORMULA TAB PO SCH (08:03)
[2022-10-17] MEDS: FLUTICASONE/VILANTEROL 200/25MCG 14 PUFFS/INHALER INH SCH (08:04)
[2022-10-17] MEDS: UMECLIDINIUM BROMIDE 62.5MCG/BLISTER 7 PUFFS/INHALER INH SCH (08:04)
[2022-10-17] MEDS: BUMETANIDE 2 MG in SYRINGE 0 ML IV SCH ×2 (08:04→17:34)
[2022-10-17] MEDS: clonazePAM 1 MG TAB PO SCH ×2 (08:12→21:04)
[2022-10-17] MEDS: INSULIN ASPART PER UNIT CHARGE SC SCH ×4 (08:12→21:19)
[2022-10-17] MEDS: LANTUS PER UNIT CHARGE SQ SCH (08:12)
--- NOTE | 2022-10-17 08:38 | Nephrology Progress Note ---
Date of Service October 17, 2022 Assessment & Plan (1) Acute kidney injury superimposed on CKD: Plan: * JUDI likely due to AIN (cipro, cephalexin). Solumedrol 1g IV daily x 3d has been completed. Prednisone 60 mg daily started 10/13/22. Plan to continue 60 mg daily for 1-2 weeks prior to starting a taper of 10 mg every 3 days. Close outpatient follow up with nephrology will be required * R IJ TCC placed by Dr. Ramirez 10/12/22. 1st HD completed 10/13 * Nonoliguric, 850 cc UO last 24 hrs. Maintain Lopez catheter for documentation of I&O's * Continue diuretic therapy to promote diuresis * Continue to hold ARB therapy * Monitor PRP, volume status (2) Emesis: Plan: * Possible steroid induced gastritis * Continue Protonix 40 mg po BID * Will order KUB x-ray to assess for ileus (3) Chronic kidney disease, stage III (moderate): Plan: * Baseline Cr 2-2.3. Primary Ict Help Desk Officer is Dr. Dixon (4) UTI (urinary tract infection): Plan: * Prior culture +proteus vulgaris. Completed course of treatment. Avoid cephalosporins and fluoroquinolones for now (5) Urethral stricture: Plan: * Followed by Dr. Gunter as an outpatient * Maintain Lopez to gravity pending urology follow up * CT reviewed. No obvious obstructive nephropathy Admission and Anticipated Discharge Date Admission Date: October 08, 2022 Subjective Mr. Monroy was evaluated while on HD this morning. At the time of my evaluation he suffered an episode of emesis. He was immediately placed in the lateral decubitus position. He had no coughing or evidence of aspiration. Mr. Monroy c/o abdominal tenderness/gastritis Review of Systems Constitutional: no fever Eyes: no worsening vision Ear, Nose, Mouth, Throat: no problem reported Respiratory: no dyspnea Cardiovascular: + edema; no chest pain and no palpitations Gastrointestinal: no abdominal pain Physical Exam Constitutional: not in distress Eyes: PERRL, conjunctivae normal, anicteric sclerae ENMT: external ear and nose normal, oropharynx normal Neck: trachea midline, no thyromegaly Respiratory: normal respiratory effort, lungs clear to auscultation Cardiovascular: Rate/Rhythm: regular rate and regular rhythm Heart Sounds: no murmur and no cardiac rub Extremities: + edema (3+ pretibial pitting edema) Gastrointestinal (Abdomen): Inspection/Auscultation: + abdomen distended and + hypoactive bowel sounds Percussion/Palpation: abdomen soft; no guarding Skin: no rashes, warm and dry Results & Data Vital Signs (Past 12 Hours) Vital Signs Temp Pulse Pulse Resp BP Pulse Ox Pulse Ox 10/17/22 07:00 36.4 C L 70 16 157/77 H 96 10/17/22 07:00 58 L 10/17/22 04:19 36.3 C L 58 L 16 149/61 H 95 10/16/22 23:15 36.3 C L 69 16 173/82 H 95 10/16/22 22:33 72 10/16/22 23:00 10/16/22 22:00 95 O2 Del Method O2 Del Method 10/17/22 07:00 Room Air 10/17/22 07:00 10/17/22 04:19 Room Air 10/16/22 23:15 Room Air 10/16/22 22:33 10/16/22 23:00 Room Air 10/16/22 22:00 Room Air Laboratory Results Laboratory Tests 10/15/22 10/17/22 10/17/22 08:13 06:12 06:12 WBC 13.80 H Hgb 11.4 L Hct 32.5 L Plt Count 172 Sodium 137 Potassium 4.0 Chloride 106 Carbon Dioxide 24 BUN 87 H Creatinine 3.49 H Glucose 94 Calcium 7.8 L Albumin 2.6 L PG Care Time/CCT Total # of Minutes Spent Total Time Spent with Patient: Total time spent is greater than 50% in coordination of care (as documented) at patient's floor/unit and/or counseling patient: Coding Level of Care Code 36407 SUB INP/OBS CARE 3/50MIN Diagnoses Acute kidney injury superimposed on CKD N17.9; N18.9 Emesis R11.10 Chronic kidney disease, stage III (moderate) N18.30 UTI (urinary tract infection) N39.0 Urethral stricture N35.919
[2022-10-17] MEDS ORDERED: ONDANSETRON INJ 2 MG/ML 2 ML VIAL IV STA (09:41)
[2022-10-17] MEDS: METOPROLOL TARTRATE 25 MG TAB PO SCH ×2 (12:37→21:00)
--- NOTE | 2022-10-17 12:57 | Pharmacy Report ---
Pharmacy Glycemic Short Note 2 - Date of Service October 17, 2022 - Glycemic Short BSG Results (Last 24 hours): 10/16/22 10/16/22 10/17/22 16:38 20:12 06:12 Glucose 94 POC Glucose 110 H 136 H 10/17/22 07:52 Glucose POC Glucose 80 OUTPATIENT ANTIDIABETIC REGIMEN: * Lantus 52 units SC qAM, 50 units SC qPM * Glipizide 10 mg PO BID * Empagliflozin 10 mg PO daily HbA1c: 9.7% (12/14/21) ASSESSMENT: 10/17 * Patient's BSGs yesterday were [phone] mg/dL. Patient received 72 units of insulin (30 units of basal and 42 units of bolus). * Fasting today is 80 mg/dL. Patient continues on prednisone 60 mg daily. * Continue current regimen as BSGs well controlled. Low threshold to reduce Lantus dose. 10/14: * BSGs improved yesterday w/ episode of hypoglycemia this morning (69 mg/dL) * Continues on prednisone 60 mg PO daily today (likely to continue for 1-2 weeks) * Likely too much basal insulin yesterday, will decrease * Continue weight-based stress of 3 Novolog parameters * HD this morning 10/13: * Patient received total 140 units of insulin yesterday; 50 units basal and 90 units bolus. * BSGs yesterday were [phone] mg/dl. Fasting BSG trended down to 131 mg/dl today AM. * Basal insulin AM dose increased to 60 units this morning. Added HS basal dose on a scale for tonight based on BSG. * Received dialysis this morning. Pre-lunch BSG was lower -119 mg/dl post- dialysis. * Prednisone 60 mg daily ordered to start at noon today. Novolog carb ratio tightened at noon. 10/12/22: * BSGs poorly controlled yesterday - steroid-induced hyperglycemia * Methylprednisolone has been discontinued (last dose 10/11) - nephrology holding off on additional steroids at this time * Patient agreeable to temporary dialysis, Permcath insertion today * BSGs remain elevated w/ lunch, but trending down from > 300 mg/dL this morning * Given steroid discontinuation, will hold off on further tightening of Novolog at this time * Maintain ACHS and ,04 checks tonight 10/11/22: * LC is an 86 year old male who presented to [place] ED on 10/08 w/ fluid overload secondary to JUDI on CKD * BSGs significantly elevated yesterday (>500 mg/dL), due to inadequate initial insulin dosing and administration of methylprednisolone 1000 mg IV, pharmacy consulted for glycemic management in the afternoon * Insulin infusion initiated at time of consult for hyperglycemia and mild DKA on labs * Second of two doses of methylprednisolone IV given this morning PLAN FOR INPATIENT GLYCEMIC CONTROL: * Hold outpatient oral diabetes medications * Basal insulin * Lantus 30 units SC with prednisone * Bolus insulin * NovoLog per scale ACHS or Q6hrs while NPO * Goal Range: Low 110 mg/dL - High 140 mg/dL * Correction Factor: 12 mg/dL/unit * Nutritional / Prandial insulin per carb ratio of 1 unit per 4 grams CHO consumed
[2022-10-17] MEDS ORDERED: DEXTROSE 10% 250 ML BAG IV ONE (13:04)
[2022-10-17] MEDS ORDERED: DEXTROSE 50% 50 ML SYRINGE IV STA (13:08)
--- NOTE | 2022-10-17 14:57 | XRay Report ---
XR KUB/Abdomen 1 view CLINICAL HISTORY: evaluate for ileus TECHNIQUE: 1 view of the abdomen was obtained. Comparison: Comparison is made to CT abdomen pelvis 10/08/2022 FINDINGS: Lung bases are unremarkable. Posterior fixation hardware is seen. The bowel gas pattern is nonobstruc tive. A moderate amount of stool is noted within the large bowel. IMPRESSION: Nonobstructive bowel gas pattern. ACT 112: Negative or not required by law. Electronically signed by: Dano West M.D. 10/17/2022 2:55 PM
--- NOTE | 2022-10-17 18:28 | Billing Data ---
Date of Service October 17, 2022 Coding Level of Care Code 60443 SUB INP/OBS CARE
[2022-10-17] MEDS: TAMSULOSIN HCL 0.4 MG CAP PO SCH (20:59)
[2022-10-17] MEDS: ROSUVASTATIN CALCIUM 10 MG TAB PO SCH (20:59)
[2022-10-17] MEDS: FINASTERIDE 5 MG TAB PO SCH (21:00)
[2022-10-18] MEDS ORDERED: Nursing to Pharmacy Communication SCH (02:45)
[2022-10-18] MEDS: LEVOTHYROXINE SODIUM 88 MCG TABLET PO SCH (05:28)
[2022-10-18 06:17] LABS: Hematocrit (blood only) 32.4 % (42.0-52.0); Hemoglobin 11.2 g/dl (14.0-18.0); Mean Corpuscular Hemoglobin 31.8 pg (25.0-34.0); Mean Corpuscular Hgb Conc 34.6 g/dL (32.0-36.0); Platelet Count 147 K/uL (130-400); RDW Coefficient of Variation 13.5 % (11.5-14.5); RDW Standard Deviation 45.8 fL (36.4-46.3); Red Blood Count 3.52 M/uL (4.70-6.10); White Blood Count 12.28 K/ul (4.8-10.8)
[2022-10-18 06:45] LABS: BUN Creatinine Ratio 22.3 (10-20); Calcium 7.5 mg/dl (8.6-10.3); Creatinine Clr Calc Pharmacy 22.5 ml/min; Est GFR (African American) 23.8 ml/min; Est GFR (Non-African American) 20.5 ml/min; Potassium 4.2 mmol/L (3.5-5.1)
--- NOTE | 2022-10-18 06:57 | Hospitalist Progress Note ---
Date of Service October 18, 2022 Assessment & Plan (1) Fluid overload: Plan: 86yo Male with PMH CHF EF 60-65%, DM2, asthma, COPD, Hx. [place], DVT, hypothyroidism, CKD, HTN, HLD, chronic leg wound, GERD here for increased swelling in face, extremities, and found to have JUDI on CKD. JUDI on CKD: -concern for ATN vs AIN with component of post-renal obstructive -Creat 6.19 on admission (baseline 2), trending down with dialysis -CT A&P showed no evidence of hydronephrosis. Chronic appearing bladder wall thickening is likely due to chronic outlet obstruction -Urology consulted; Lopez placed. Allow for catheter for at least 1 week, can follow up w/ urology outpatient for voiding trial. -Nephrology consulted: -Possible ATN in setting of recent infection vs AIN from recent antibiotic use. -Treat suspected AIN w/ methylpred 1gm daily x3 doses-> plan to restart 60mg prednisone daily for the next 1-2 weeks then taper -Strict I&Os -Plan for continued acute dialysis, monitoring to see if any improvement in kidney function. Next session is scheduled for tomorrow. - Continue Bumex BID as he continues to make urine -trend BMP Nausea - Could be secondary to steroid use - KUB without obstruction - BM yesterday, improving after Hyperkalemia: -potassium 6.1 on admission, stabilized with dialysis -Continue Bumex 2mg IV BID, as long as he continues to make urine Hyperglycemia in the setting of DM2 - Was hyperglycemic earlier during this admission, had 2 episodes of hypoglycemia to the 40s yesterday - Glycemic consult, appreciate recommendations. Discussed loosening his glycemic control with pharmacy to try and prevent hypoglycemia. - Hemoglobin a1c on this admission= 11.5 - Plan: hold Lantus, NovoLog with CF= 20 and Carb Ratio= 6 Prostatitis: -cipro was stopped given renal function -urine culture 10/05 grew proteus vulgaris, repeat from 10/08 grew baylee glabrata - ID consulted. They do not believe he has prostatitis, will hold on further antibiotics - ID does not recommend treatment of baylee glabrata in urine Wheeze: -continue home inhalers -ordered albuterol q6hr nebulizer HTN, Hx. [place]: -continue metoprolol, aspirin -hold losartan given JUDI BPH: -continue tamsulosin, increased to 0.8mg -continue finasteride HLD: -continue rosuvastatin, dose redcued to 10mg daily GERD: -continue protonix Anxiety: -continue clonapin, gabapentin (reduced to 100mg daily) Hypothyroidism -continue levothyroxine FENa: heart healthy DM2 fluid restriction 1.5L Code Status: DNR/DNI is POA DVT PPX: Eliquis (2) Acute kidney injury superimposed on CKD: (3) DVT (deep venous thrombosis): (4) Prostatitis: (5) Acute hyperkalemia: (6) Abdominal distension: (7) Benign prostatic hyperplasia with urinary obstruction: (8) Hypothyroidism: (9) Hypertension: (10) Dyslipidemia: (11) CHF (congestive heart failure): (12) GERD (gastroesophageal reflux disease): (13) Diabetes: Admission and Anticipated Discharge Date Admission Date: October 08, 2022 Supervising Physician Co-Signing Physician Notes I personally examined the patient and verified all aguayo points of history and exam, discussed case, and agree with decision making with Dr Gino Fuller sugar earlier feeling better now vitals noted nad heent nc at mmm breathing unlabored no accessory muscles good effort skin no rashes no pallor or icterus AIN/ARF - HD. Nephrology continuing to follow as acute dialysisfor rehab once nephrology feels stable for discharge. otherwise as above. doing well overall. Adjust insulins as steroids come down Subjective Chang is doing well this morning. States that he had an episode of emesis yesterday during dialysis, denies any current nausea/vomiting. Was able to eat breakfast this morning. Had a BM yesterday. Overnight had an instance of symptomatic hypoglycemia. Review of Systems Review of Systems: As per above Physical Exam Physical Exam: Constitutional: well-appearing, no acute distress HEENT: NCAT, no conjunctival injection CV: extremities well-perfused, 1+ LE edema Resp: CTABL, no wheezes/rales/rhonchi appreciated, no increased work of breathing MSK: no gross deformities appreciated Skin: warm, dry, no rash appreciated Neuro: alert, oriented, no focal neurologic deficit appreciated Results & Data Results & Data Vital Signs (Past 12 Hours) Vital Signs Temp Pulse Pulse Resp BP BP Pulse Ox 10/18/22 04:22 36.4 C L 70 18 95/54 L 95 10/17/22 22:00 67 10/17/22 23:32 36.5 C 67 18 91/44 L 97 10/17/22 21:44 10/17/22 21:44 10/17/22 20:13 36.7 C 67 18 160/77 H 97 Pulse Ox O2 Del Method O2 Del Method 10/18/22 04:22 Room Air 10/17/22 22:00 10/17/22 23:32 Room Air 10/17/22 21:44 Room Air 10/17/22 21:44 96 Room Air 10/17/22 20:13 Room Air Resident Activity Tracking Resident Involvement: Resident Care Provided Care Provided: Adult Hospital Medicine (4) Prostatitis Prostatitis type: acute Qualified Code(s): N41.0 - Acute prostatitis (8) Hypothyroidism Hypothyroidism type: unspecified Qualified Code(s): E03.9 - Hypothyroidism, unspecified (9) Hypertension Hypertension type: essential hypertension Qualified Code(s): I10 - Essential (primary) hypertension (11) CHF (congestive heart failure) Heart failure chronicity: unspecified Heart failure type: unspecified Qualified Code(s): I50.9 - Heart failure, unspecified (12) GERD (gastroesophageal reflux disease) Esophagitis presence: esophagitis presence not specified Qualified Code(s): K21.9 - Gastro-esophageal reflux disease without esophagitis (13) Diabetes Diabetes mellitus complication status: with hyperglycemia Diabetes mellitus manager terminal insulin use: with chcf use Diabetes mellitus type: type 2 Qualified Code(s): E11.65 - Type 2 diabetes mellitus with hyperglycemia; Z79.4 - remote computer terminal operator (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
--- NOTE | 2022-10-18 08:34 | Nephrology Progress Note ---
Date of Service October 18, 2022 Assessment & Plan (1) Acute kidney injury superimposed on CKD: Plan: * JUDI likely due to AIN (cipro, cephalexin). Solumedrol 1g IV daily x 3d has been completed. Prednisone 60 mg daily started 10/13/22. Plan to continue 60 mg daily for 1-2 weeks prior to starting a taper of 10 mg every 3 days. Close outpatient follow up with nephrology will be required * R IJ TCC placed by Dr. Ramirez 10/12/22. 1st HD completed 10/13 * Nonoliguric, 1175 cc UO last 24 hrs. Maintain Lopez catheter for documentation of I&O's * Continue diuretic therapy to promote diuresis * Continue to hold ARB therapy * Monitor PRP, volume status * Will schedule next HD for am for continued urea clearance and ultrafiltration (2) Emesis: Plan: * Possible steroid induced gastritis * Continue Protonix 40 mg po BID * 10/17/22 KUB x-ray negative for ileus or obstruction (3) Chronic kidney disease, stage III (moderate): Plan: * Baseline Cr 2-2.3. Primary Nightclub Manager is Dr. Dixon (4) UTI (urinary tract infection): Plan: * Prior culture +proteus vulgaris. Completed course of treatment. Avoid cephalosporins and fluoroquinolones for now (5) Urethral stricture: Plan: * Followed by Dr. Gunter as an outpatient * Maintain Lopez to gravity pending urology follow up * CT reviewed. No obvious obstructive nephropathy Admission and Anticipated Discharge Date Admission Date: October 08, 2022 Subjective Mr. Monroy was evaluated in his hospital room this morning. He reports a h ypoglycemic event overnight. He denies fever or dyspnea. Mr. Monroy reports brisk UO Review of Systems Constitutional: no fever Eyes: no worsening vision Ear, Nose, Mouth, Throat: no problem reported Respiratory: no dyspnea Cardiovascular: + edema; no chest pain and no palpitations Gastrointestinal: no abdominal pain Physical Exam Constitutional: not in distress Eyes: PERRL, conjunctivae normal, anicteric sclerae ENMT: external ear and nose normal, oropharynx normal Neck: trachea midline, no thyromegaly Respiratory: normal respiratory effort, lungs clear to auscultation Cardiovascular: Rate/Rhythm: regular rate and regular rhythm Heart Sounds: no murmur and no cardiac rub Extremities: + edema (3+ pretibial pitting edema) Gastrointestinal (Abdomen): normal bowel sounds, soft, nontender, no hepatosplenomegaly Inspection/Auscultation: + abdomen distended and + hypoactive bowel sounds Percussion/Palpation: abdomen soft; no guarding Skin: no rashes, warm and dry Results & Data Vital Signs (Past 12 Hours) Vital Signs Temp Pulse Pulse Resp BP BP Pulse Ox 10/18/22 07:41 36.4 C L 84 20 108/60 98 10/18/22 07:00 63 10/18/22 04:22 36.4 C L 70 18 95/54 L 95 10/17/22 22:00 67 10/17/22 23:32 36.5 C 67 18 91/44 L 97 10/17/22 21:44 10/17/22 21:44 Pulse Ox O2 Del Method O2 Del Method 10/18/22 07:41 Room Air 10/18/22 07:00 10/18/22 04:22 Room Air 10/17/22 22:00 10/17/22 23:32 Room Air 10/17/22 21:44 Room Air 10/17/22 21:44 96 Room Air Laboratory Results Laboratory Tests 10/15/22 10/18/22 10/18/22 08:13 05:44 05:44 WBC 12.28 H Hgb 11.2 L Hct 32.4 L Plt Count 147 Sodium 137 Potassium 4.2 Chloride 105 Carbon Dioxide 26 BUN 60 H D Creatinine 2.69 H D Glucose 164 H Calcium 7.5 L Albumin 2.6 L PG Care Time/CCT Total # of Minutes Spent Total Time Spent with Patient: Total time spent is greater than 50% in coordination of care (as documented) at patient's floor/unit and/or counseling patient: Coding Level of Care Code 68437 SUB INP/OBS CARE 3/50MIN Diagnoses Acute kidney injury superimposed on CKD N17.9; N18.9 Emesis R11.10 Chronic kidney disease, stage III (moderate) N18.30 UTI (urinary tract infection) N39.0 Urethral stricture N35.919
[2022-10-18] MEDS: INSULIN ASPART PER UNIT CHARGE SC SCH ×4 (09:39→21:14)
[2022-10-18] MEDS: FLUTICASONE/VILANTEROL 200/25MCG 14 PUFFS/INHALER INH SCH (09:41)
[2022-10-18] MEDS: UMECLIDINIUM BROMIDE 62.5MCG/BLISTER 7 PUFFS/INHALER INH SCH (09:42)
[2022-10-18] MEDS: METOPROLOL TARTRATE 25 MG TAB PO SCH ×2 (09:42→21:17)
[2022-10-18] MEDS: APIXABAN 2.5 MG TAB PO SCH ×2 (09:42→21:17)
[2022-10-18] MEDS: CEROVITE ADV FORMULA TAB PO SCH (09:42)
[2022-10-18] MEDS: BUMETANIDE 2 MG in SYRINGE 0 ML IV SCH ×2 (09:42→17:52)
[2022-10-18] MEDS: predniSONE 20 MG TAB PO SCH (09:43)
[2022-10-18] MEDS: PANTOprazole 40 MG TAB PO SCH ×2 (09:43→21:16)
[2022-10-18] MEDS: ASPIRIN 81 MG ECTAB PO SCH (09:43)
[2022-10-18] MEDS: GABAPENTIN 100 MG CAP PO SCH (09:43)
[2022-10-18] MEDS: SEVELAMER HCL 800 MG TABLET PO SCH ×3 (09:43→17:52)
[2022-10-18] MEDS: clonazePAM 1 MG TAB PO SCH ×2 (09:48→21:17)
--- NOTE | 2022-10-18 15:11 | Pharmacy Report ---
Pharmacy Glycemic Short Note 2 - Date of Service October 18, 2022 - Glycemic Short BSG Results (Last 24 hours): 10/17/22 10/17/22 10/18/22 16:54 21:16 01:38 Glucose POC Glucose 140 H 72 40 L* 10/18/22 10/18/22 10/18/22 02:01 02:23 05:44 Glucose 164 H POC Glucose 75 132 H 10/18/22 10/18/22 07:24 11:16 Glucose POC Glucose 111 H 202 H OUTPATIENT ANTIDIABETIC REGIMEN: * Lantus 52 units SC qAM, 50 units SC qPM * Glipizide 10 mg PO BID * Empagliflozin 10 mg PO daily HbA1c: 9.7% (12/14/21) ASSESSMENT: 10/18/22 * BSGs yesterday were 15-08-772-72 mg/dL and overnight 46 mg/dL. * Patient received 51 units of insulin (30 units of basal and 21 units of bolus). * Patient continues on prednisone 60 mg daily. * Unclear reason for continued hypoglycemia yesterday. Patient tolerates much higher Lantus dosing as an outpatient (102 units) + had tolerated Lantus 30 units x 3 days prior to these hypoglycemic events. * Will hold Lantus today and resume tomorrow. * Loosen Novolog slightly. 10/17 * Patient's BSGs yesterday were [phone] mg/dL. Patient received 72 units of insulin (30 units of basal and 42 units of bolus). * Fasting today is 80 mg/dL. Patient continues on prednisone 60 mg daily. * Continue current regimen as BSGs well controlled. Low threshold to reduce Lantus dose. 10/14: * BSGs improved yesterday w/ episode of hypoglycemia this morning (69 mg/dL) * Continues on prednisone 60 mg PO daily today (likely to continue for 1-2 weeks) * Likely too much basal insulin yesterday, will decrease * Continue weight-based stress of 3 Novolog parameters * HD this morning 10/13: * Patient received total 140 units of insulin yesterday; 50 units basal and 90 units bolus. * BSGs yesterday were [phone] mg/dl. Fasting BSG trended down to 131 mg/dl today AM. * Basal insulin AM dose increased to 60 units this morning. Added HS basal dose on a scale for tonight based on BSG. * Received dialysis this morning. Pre-lunch BSG was lower -119 mg/dl post- dialysis. * Prednisone 60 mg daily ordered to start at noon today. Novolog carb ratio tightened at noon. 10/12/22: * BSGs poorly controlled yesterday - steroid-induced hyperglycemia * Methylprednisolone has been discontinued (last dose 10/11) - nephrology holding off on additional steroids at this time * Patient agreeable to temporary dialysis, Permcath insertion today * BSGs remain elevated w/ lunch, but trending down from > 300 mg/dL this morning * Given steroid discontinuation, will hold off on further tightening of Novolog at this time * Maintain ACHS and 00,04 checks tonight 10/11/22: * YURI is an 86 year old male who presented to [place] ED on 10/08 w/ fluid overload secondary to JUDI on CKD * BSGs significantly elevated yesterday (>500 mg/dL), due to inadequate initial insulin dosing and administration of methylprednisolone 1000 mg IV, pharmacy consulted for glycemic management in the afternoon * Insulin infusion initiated at time of consult for hyperglycemia and mild DKA on labs * Second of two doses of methylprednisolone IV given this morning PLAN FOR INPATIENT GLYCEMIC CONTROL: * Hold outpatient oral diabetes medications * Basal insulin * Hold today then resume tomorrow * Bolus insulin * NovoLog per scale ACHS or Q6hrs while NPO * Goal Range: Low 110 mg/dL - High 140 mg/dL * Correction Factor: 20 mg/dL/unit * Nutritional / Prandial insulin per carb ratio of 1 unit per 6 grams CHO consumed
--- NOTE | 2022-10-18 17:51 | Billing Data ---
Date of Service October 18, 2022 Coding Level of Care Code 05779 SUB INP/OBS CARE
[2022-10-18] MEDS: TAMSULOSIN HCL 0.4 MG CAP PO SCH (21:16)
[2022-10-18] MEDS: FINASTERIDE 5 MG TAB PO SCH (21:16)
[2022-10-18] MEDS: ROSUVASTATIN CALCIUM 10 MG TAB PO SCH (21:16)
[2022-10-19] MEDS: LEVOTHYROXINE SODIUM 88 MCG TABLET PO SCH (05:32)
--- NOTE | 2022-10-19 06:57 | Hospitalist Progress Note ---
Date of Service October 19, 2022 Assessment & Plan (1) Fluid overload: Plan: 86yo Male with PMH CHF EF 60-65%, DM2, asthma, COPD, Hx. [place], DVT, hypothyroidism, CKD, HTN, HLD, chronic leg wound, GERD here for increased swelling in face, extremities, and found to have JUDI on CKD. JUDI on CKD: -concern for ATN vs AIN with component of post-renal obstructive -Creat 6.19 on admission (baseline 2), trending down with dialysis -CT A&P showed no evidence of hydronephrosis. Chronic appearing bladder wall thickening is likely due to chronic outlet obstruction -Urology consulted; Lopez placed. Allow for catheter for at least 1 week, can follow up w/ urology outpatient for voiding trial. -Nephrology consulted: -Possible ATN in setting of recent infection vs AIN from recent antibiotic use. -Treat suspected AIN w/ methylpred 1gm daily x3 doses-> plan to restart 60mg prednisone daily for the next 1-2 weeks then taper -Strict I&Os -Plan for continued acute dialysis, monitoring to see if any improvement in kidney function. HD today. - Continue Bumex BID as he continues to make urine -trend BMP Hyperkalemia: -potassium 6.1 on admission, stabilized with dialysis -Continue Bumex 2mg IV BID, as long as he continues to make urine Hyperglycemia in the setting of DM2 - Was hyperglycemic earlier during this admission, more recently has had episodes of hypoglycemia - Glycemic consult, appreciate recommendations. - Hemoglobin a1c on this admission= 11.5 - Plan: Lantus 25 units daily, NovoLog with CF= 15 and Carb Ratio= 4 Prostatitis: -cipro was stopped given renal function -urine culture 10/05 grew proteus vulgaris, repeat from 10/08 grew baylee glabrata - ID consulted. They do not believe he has prostatitis, will hold on further antibiotics - ID does not recommend treatment of baylee glabrata in urine Wheeze: -continue home inhalers -ordered albuterol q6hr nebulizer HTN, Hx. MO: -continue metoprolol, aspirin -hold losartan given JUDI BPH: -continue tamsulosin, increased to 0.8mg -continue finasteride HLD: -continue rosuvastatin, dose redcued to 10mg daily GERD: -continue protonix Anxiety: -continue clonapin, gabapentin (reduced to 100mg daily) Hypothyroidism -continue levothyroxine FENa: heart healthy DM2 fluid restriction 1.5L Code Status: DNR/DNI is POA DVT PPX: Eliquis (2) Acute kidney injury superimposed on CKD: (3) DVT (deep venous thrombosis): (4) Prostatitis: (5) Acute hyperkalemia: (6) Abdominal distension: (7) Benign prostatic hyperplasia with urinary obstruction: (8) Hypothyroidism: (9) Hypertension: (10) Dyslipidemia: (11) CHF (congestive heart failure): (12) GERD (gastroesophageal reflux disease): (13) Diabetes: Admission and Anticipated Discharge Date Admission Date: October 08, 2022 Supervising Physician Co-Signing Physician Notes I personally examined the patient and verified all aguayo points of history and exam, discussed case, and agree with decision making with Dr Christian Feeling okay on dialysis. Appreciate nephrology input. vitals noted nad heent nc at mmm breathing unlabored no accessory muscles good effort skin no rashes no pallor or icterus AIN/ARF - HD. Nephrology continuing to follow as acute dialysisfor rehab once nephrology feels stable for discharge. otherwise as above. doing well overall. Continue to adjust insulins as steroids come down Subjective Chang is doing well this morning. States his sleep has been a little off. Appetite is good. States he was able to get up and walk with PT yesterday. Review of Systems Review of Systems: As per above Physical Exam Physical Exam: Constitutional: well-appearing, no acute distress HEENT: NCAT, no conjunctival injection CV: extremities well-perfused, 1+ LE edema Resp: no increased work of breathing MSK: no gross deformities appreciated Skin: warm, dry, no rash appreciated Neuro: alert, oriented, no focal neurologic deficit appreciated Results & Data Results & Data Vital Signs (Past 12 Hours) Vital Signs Temp Pulse Pulse Resp BP Pulse Ox Pulse Ox 10/19/22 02:19 36.5 C 66 18 113/63 95 10/18/22 22:02 76 10/19/22 00:55 10/18/22 22:40 36.3 C L 83 18 124/65 95 10/18/22 21:54 96 10/18/22 19:25 36.7 C 79 18 131/75 100 O2 Del Method O2 Del Method 10/19/22 02:19 Room Air 10/18/22 22:02 10/19/22 00:55 Room Air 10/18/22 22:40 Room Air 10/18/22 21:54 Room Air 10/18/22 19:25 Room Air Resident Activity Tracking Resident Involvement: Resident Care Provided Care Provided: Adult [facility] (4) Prostatitis Prostatitis type: acute Qualified Code(s): N41.0 - Acute prostatitis (8) Hypothyroidism Hypothyroidism type: unspecified Qualified Code(s): E03.9 - Hypothyroidism, unspecified (9) Hypertension Hypertension type: essential hypertension Qualified Code(s): I10 - Essential (primary) hypertension (11) CHF (congestive heart failure) Heart failure chronicity: unspecified Heart failure type: unspecified Qualified Code(s): I50.9 - Heart failure, unspecified (12) GERD (gastroesophageal reflux disease) Esophagitis presence: esophagitis presence not specified Qualified Code(s): K21.9 - Gastro-esophageal reflux disease without esophagitis (13) Diabetes Diabetes mellitus complication status: with hyperglycemia Diabetes mellitus penitentiary insulin use: with long term care administrator use Diabetes mellitus type: type 2 Qualified Code(s): E11.65 - Type 2 diabetes mellitus with hyperglycemia; Z79.4 - intermediate (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
[2022-10-19] MEDS ORDERED: SODIUM CHLORIDE 0.9% 1000ML 1,000 ML IV PRN (07:00)
[2022-10-19 08:28] LABS: BUN Creatinine Ratio 26.7 (10-20); Calcium 7.5 mg/dl (8.6-10.3); Creatinine Clr Calc Pharmacy 22.8 ml/min; Est GFR (African American) 24.5 ml/min; Est GFR (Non-African American) 21.2 ml/min; Phosphorus 3.7 mg/dl (2.5-4.9); Potassium 4.3 mmol/L (3.5-5.1)
--- NOTE | 2022-10-19 08:28 | Nephrology Progress Note ---
Date of Service October 19, 2022 Assessment & Plan (1) Acute kidney injury superimposed on CKD: Plan: * JUDI likely due to AIN (cipro, cephalexin). Peak Cr 8.4 (10/11/22). Solumedrol 1g IV daily x 3d has been completed. Prednisone 60 mg daily started 10/13/22. Creatinine has improved to 2.6 and was stable in between HD treatments yesterday. Will reduce Prednisone to 40 mg daily. Recommend continued inpatient management as patient may be recovering kidney function * R IJ TCC placed by Dr. Ramirez 10/12/22. 1st HD completed 10/13 * Nonoliguric, 576 cc UO last 24 hrs. Maintain Lopez catheter for documentation of I&O's * Continue diuretic therapy to promote diuresis * Continue to hold ARB therapy * Monitor PRP, volume status * HD today for continued urea clearance and ultrafiltration (2) Chronic kidney disease, stage III (moderate): Plan: * Baseline Cr 2-2.3. Primary Hotel Front Office Manager is Dr. Dixon (3) UTI (urinary tract infection): Plan: * Prior culture +proteus vulgaris. Completed course of treatment. Avoid cephalosporins and fluoroquinolones for now (4) Urethral stricture: Plan: * Followed by Dr. Gunter as an outpatient * Maintain Lopez to gravity pending urology follow up * CT reviewed. No obvious obstructive nephropathy Admission and Anticipated Discharge Date Admission Date: October 08, 2022 Subjective Mr. Monroy was evaluated in his hospital room this morning. He denies fever or dyspnea and reports brisk UO Review of Systems Constitutional: no fever Eyes: no worsening vision Ear, Nose, Mouth, Throat: no problem reported Respiratory: no dyspnea Cardiovascular: + edema; no chest pain and no palpitations Gastrointestinal: no abdominal pain Physical Exam Constitutional: not in distress Eyes: PERRL, conjunctivae normal, anicteric sclerae ENMT: external ear and nose normal, oropharynx normal Neck: trachea midline, no thyromegaly Respiratory: normal respiratory effort, lungs clear to auscultation Cardiovascular: Rate/Rhythm: regular rate and regular rhythm Heart Sounds: no murmur and no cardiac rub Extremities: + edema (2+ pretibial pitting edema) Gastrointestinal (Abdomen): normal bowel sounds, soft, nontender, no hepatosplenomegaly Inspection/Auscultation: + abdomen distended and + hypoactive bowel sounds Percussion/Palpation: abdomen soft; no guarding Skin: no rashes, warm and dry Results & Data Vital Signs (Past 12 Hours) Vital Signs Temp Pulse Pulse Resp BP Pulse Ox Pulse Ox 10/19/22 07:57 36.4 C L 64 20 156/78 H 95 10/19/22 07:26 65 10/19/22 02:19 36.5 C 66 18 113/63 95 10/18/22 22:02 76 10/19/22 00:55 10/18/22 22:40 36.3 C L 83 18 124/65 95 10/18/22 21:54 96 O2 Del Method O2 Del Method O2 Flow Rate 10/19/22 07:57 Nasal Cannula 2 10/19/22 07:26 10/19/22 02:19 Room Air 10/18/22 22:02 10/19/22 00:55 Room Air 10/18/22 22:40 Room Air 10/18/22 21:54 Room Air Laboratory Results Laboratory Tests 10/18/22 10/19/22 05:44 07:23 WBC 12.28 H Hgb 11.2 L Hct 32.4 L Plt Count 147 Sodium 136 Potassium 4.3 Chloride 107 Carbon Dioxide 23 BUN 70 H Creatinine 2.62 H Calcium 7.5 L Phosphorus 3.7 PG Care Time/CCT Total # of Minutes Spent Total Time Spent with Patient: Total time spent is greater than 50% in coordination of care (as documented) at patient's floor/unit and/or counseling patient: Coding Level of Care Code 85912 SUB INP/OBS CARE 3/50MIN Diagnoses Acute kidney injury superimposed on CKD N17.9; N18.9 Chronic kidney disease, stage III (moderate) N18.30 UTI (urinary tract infection) N39.0 Urethral stricture N35.919
[2022-10-19] MEDS: clonazePAM 1 MG TAB PO SCH ×2 (08:41→20:43)
[2022-10-19] MEDS: FLUTICASONE/VILANTEROL 200/25MCG 14 PUFFS/INHALER INH SCH (08:42)
[2022-10-19] MEDS: METOPROLOL TARTRATE 25 MG TAB PO SCH ×2 (08:42→21:18)
[2022-10-19] MEDS: POLYETHYLENE (MIRALAX) 17 GM PACK PO PRN (08:42)
[2022-10-19] MEDS: GABAPENTIN 100 MG CAP PO SCH (08:42)
[2022-10-19] MEDS: CEROVITE ADV FORMULA TAB PO SCH (08:42)
[2022-10-19] MEDS: UMECLIDINIUM BROMIDE 62.5MCG/BLISTER 7 PUFFS/INHALER INH SCH (08:42)
[2022-10-19] MEDS: SEVELAMER HCL 800 MG TABLET PO SCH ×3 (08:43→16:56)
[2022-10-19] MEDS: predniSONE 20 MG TAB PO SCH (08:43)
[2022-10-19] MEDS: ASPIRIN 81 MG ECTAB PO SCH (08:43)
[2022-10-19] MEDS: BUMETANIDE 2 MG in SYRINGE 0 ML IV SCH ×2 (08:44→16:55)
[2022-10-19] MEDS: INSULIN ASPART PER UNIT CHARGE SC SCH ×4 (08:44→21:06)
[2022-10-19] MEDS: PANTOprazole 40 MG TAB PO SCH ×2 (08:44→21:18)
[2022-10-19] MEDS: APIXABAN 2.5 MG TAB PO SCH ×2 (08:44→20:40)
[2022-10-19] MEDS ORDERED: LANTUS PER UNIT CHARGE SQ SCH (09:00)
--- NOTE | 2022-10-19 14:35 | Pharmacy Report ---
Pharmacy Glycemic Short Note 2 - Date of Service October 19, 2022 - Glycemic Short BSG Results (Last 24 hours): 10/18/22 10/18/22 10/19/22 16:20 20:11 07:23 Glucose 289 H POC Glucose 150 H 238 H 10/19/22 10/19/22 07:36 13:27 Glucose POC Glucose 293 H 120 H OUTPATIENT ANTIDIABETIC REGIMEN: * Lantus 52 units SC qAM, 50 units SC qPM * Glipizide 10 mg PO BID * Empagliflozin 10 mg PO daily HbA1c: 9.7% (12/14/21) ASSESSMENT: 10/19/22 * BSGs yesterday were [phone] mg/dL. Patient received 21 units of Novolog. * Fasting today was 293 mg/dL. * Will resume basal insulin at 25 units. Initially had considered 15 units of Lantus but with such a change in fasting (111 --> 293), it is evident that patient requires more than 15 units of Lantus. * Patient continues prednisone 60 mg daily. He received dialysis today. Lunch BSG was 120 mg/dL. * Tightened Novolog back to previous parameters 10/18/22 * BSGs yesterday were 53-21-254-72 mg/dL and overnight 46 mg/dL. * Patient received 51 units of insulin (30 units of basal and 21 units of bolus). * Patient continues on prednisone 60 mg daily. * Unclear reason for continued hypoglycemia yesterday. Patient tolerates much higher Lantus dosing as an outpatient (102 units) + had tolerated Lantus 30 units x 3 days prior to these hypoglycemic events. * Will hold Lantus today and resume tomorrow. * Loosen Novolog slightly. 10/17 * Patient's BSGs yesterday were [phone] mg/dL. Patient received 72 units of insulin (30 units of basal and 42 units of bolus). * Fasting today is 80 mg/dL. Patient continues on prednisone 60 mg daily. * Continue current regimen as BSGs well controlled. Low threshold to reduce Lantus dose. 10/14: * BSGs improved yesterday w/ episode of hypoglycemia this morning (69 mg/dL) * Continues on prednisone 60 mg PO daily today (likely to continue for 1-2 weeks) * Likely too much basal insulin yesterday, will decrease * Continue weight-based stress of 3 Novolog parameters * HD this morning 10/13: * Patient received total 140 units of insulin yesterday; 50 units basal and 90 units bolus. * BSGs yesterday were [phone] mg/dl. Fasting BSG trended down to 131 mg/dl today AM. * Basal insulin AM dose increased to 60 units this morning. Added HS basal dose on a scale for tonight based on BSG. * Received dialysis this morning. Pre-lunch BSG was lower -119 mg/dl post- dialysis. * Prednisone 60 mg daily ordered to start at noon today. Novolog carb ratio tightened at noon. 10/12/22: * BSGs poorly controlled yesterday - steroid-induced hyperglycemia * Methylprednisolone has been discontinued (last dose 10/11) - nephrology holding off on additional steroids at this time * Patient agreeable to temporary dialysis, Permcath insertion today * BSGs remain elevated w/ lunch, but trending down from > 300 mg/dL this morning * Given steroid discontinuation, will hold off on further tightening of Novolog at this time * Maintain ACHS and 00,04 checks tonight 10/11/22: * LC is an 86 year old male who presented to [place] ED on 10/08 w/ fluid overload secondary to JUDI on CKD * BSGs significantly elevated yesterday (>500 mg/dL), due to inadequate initial insulin dosing and administration of methylprednisolone 1000 mg IV, pharmacy consulted for glycemic management in the afternoon * Insulin infusion initiated at time of consult for hyperglycemia and mild DKA on labs * Second of two doses of methylprednisolone IV given this morning PLAN FOR INPATIENT GLYCEMIC CONTROL: * Hold outpatient oral diabetes medications * Basal insulin * Lantus 25 units * Bolus insulin * NovoLog per scale ACHS or Q6hrs while NPO * Goal Range: Low 110 mg/dL - High 140 mg/dL * Correction Factor: 15 mg/dL/unit * Nutritional / Prandial insulin per carb ratio of 1 unit per 5 grams CHO consumed
--- NOTE | 2022-10-19 19:13 | Billing Data ---
Date of Service October 19, 2022 Coding Level of Care Code 40543 SUB INP/OBS CARE
[2022-10-19] MEDS: FINASTERIDE 5 MG TAB PO SCH (20:41)
[2022-10-19] MEDS: TAMSULOSIN HCL 0.4 MG CAP PO SCH (21:16)
[2022-10-19] MEDS: ROSUVASTATIN CALCIUM 10 MG TAB PO SCH (21:16)
[2022-10-20 05:58] LABS: Hematocrit (blood only) 30.6 % (42.0-52.0); Hemoglobin 10.8 g/dl (14.0-18.0); Mean Corpuscular Hemoglobin 31.5 pg (25.0-34.0); Mean Corpuscular Hgb Conc 35.3 g/dL (32.0-36.0); Mean Corpuscular Volume 89.2 fL (80.0-100.0); Mean Platelet Volume 9.3 fL (9.4-12.4); Platelet Count 176 K/uL (130-400); RDW Coefficient of Variation 13.3 % (11.5-14.5); RDW Standard Deviation 43.9 fL (36.4-46.3); Red Blood Count 3.43 M/uL (4.70-6.10); White Blood Count 18.24 K/ul (4.8-10.8)
[2022-10-20] MEDS: LEVOTHYROXINE SODIUM 88 MCG TABLET PO SCH (05:58)
[2022-10-20 06:14] LABS: BUN Creatinine Ratio 24.2 (10-20); Calcium 7.6 mg/dl (8.6-10.3); Creatinine Clr Calc Pharmacy 30.1 ml/min; Est GFR (African American) 34.4 ml/min; Est GFR (Non-African American) 29.7 ml/min; Potassium 4.2 mmol/L (3.5-5.1)
--- NOTE | 2022-10-20 07:02 | Hospitalist Progress Note ---
Date of Service October 20, 2022 Assessment & Plan (1) Fluid overload: Plan: 86yo Male with PMH CHF EF 60-65%, DM2, asthma, COPD, Hx. [place], DVT, hypothyroidism, CKD, HTN, HLD, chronic leg wound, GERD here for increased swelling in face, extremities, and found to have JUDI on CKD. JUDI on CKD: -concern for ATN vs AIN with component of post-renal obstructive -Creat 6.19 on admission (baseline 2), trending down with dialysis -CT A&P showed no evidence of hydronephrosis. Chronic appearing bladder wall thickening is likely due to chronic outlet obstruction -Urology consulted; Lopez placed. Allow for catheter for at least 1 week, can follow up w/ urology outpatient for voiding trial. -Nephrology consulted: -Possible ATN in setting of recent infection vs AIN from recent antibiotic use. -decrease prednisone to 30mg daily -Strict I&Os -Last dialysis session was yesterday. Nephrology continues to monitor - Continue Bumex BID as he continues to make urine -trend BMP Leukocytosis - likely secondary to steroid use - no signs of infection - will continue to trend Hyperkalemia: -potassium 6.1 on admission, stabilized with dialysis -Continue Bumex 2mg IV BID, as long as he continues to make urine Hyperglycemia in the setting of DM2 - Was hyperglycemic earlier during this admission, more recently has had episodes of hypoglycemia - Glycemic consult, appreciate recommendations. - Hemoglobin a1c on this admission= 11.5 Prostatitis: -cipro was stopped given renal function -urine culture 10/05 grew proteus vulgaris, repeat from 10/08 grew baylee glabrata - ID consulted. They do not believe he has prostatitis, will hold on further antibiotics - ID does not recommend treatment of baylee glabrata in urine Wheeze: -continue home inhalers -ordered albuterol q6hr nebulizer HTN, Hx. [place]: -continue metoprolol, aspirin -hold losartan given JUDI BPH: -continue tamsulosin, increased to 0.8mg -continue finasteride HLD: -continue rosuvastatin, dose redcued to 10mg daily GERD: -continue protonix Anxiety: -continue clonapin, gabapentin (reduced to 100mg daily) Hypothyroidism -continue levothyroxine FENa: heart healthy DM2 fluid restriction 1.5L Code Status: DNR/DNI is POA DVT PPX: Alisonquis (2) Acute kidney injury superimposed on CKD: (3) DVT (deep venous thrombosis): (4) Prostatitis: (5) Acute hyperkalemia: (6) Abdominal distension: (7) Benign prostatic hyperplasia with urinary obstruction: (8) Hypothyroidism: (9) Hypertension: (10) Dyslipidemia: (11) CHF (congestive heart failure): (12) GERD (gastroesophageal reflux disease): (13) Diabetes: Admission and Anticipated Discharge Date Admission Date: October 08, 2022 Supervising Physician Co-Signing Physician Notes I personally examined the patient and verified all aguayo points of history and exam, discussed case, and agree with decision making with Dr Christian Feels good. Happy with progress. vitals noted nad heent nc at mmm breathing unlabored no accessory muscles good effort skin no rashes no pallor or icterus AIN/ARF - HD. Nephrology continuing to follow as acute dialysisfor rehab once nephrology feels stable for discharge. Follow leukocytosis given that he has no signs or symptoms of infection, it is probably steroid relatedbut went up as steroids have been reducedbut at the same time with no clear infection, obviously hold on empiric antibiotics, watchful waiting and serial labs for now. Otherwise as above. doing well overall. Continue to adjust insulins as steroids come down Subjective Chang is doing well today. Had some trouble sleeping last night, but otherwise no complaints. Was able to walk a few laps around the hallway with PT this morning. Review of Systems 2 Review of Systems: As per above Physical Exam Physical Exam: Constitutional: well-appearing, no acute distress HEENT: NCAT, no conjunctival injection CV: extremities well-perfused, 1+ LE edema Resp: no increased work of breathing MSK: no gross deformities appreciated Skin: warm, dry, no rash appreciated Neuro: alert, oriented, no focal neurologic deficit appreciated Results & Data Results & Data Vital Signs (Past 12 Hours) Vital Signs Temp Pulse Pulse Resp BP Pulse Ox O2 Del Method 10/20/22 03:00 36.4 C L 63 18 122/56 L 95 Room Air 10/19/22 22:00 72 10/19/22 22:00 36.5 C 64 20 147/74 H 96 Room Air Resident Activity Tracking Resident Involvement: Resident Care Provided Care Provided: Adult Hospital Medicine (4) Prostatitis Prostatitis type: acute Qualified Code(s): N41.0 - Acute prostatitis (8) Hypothyroidism Hypothyroidism type: unspecified Qualified Code(s): E03.9 - Hypothyroidism, unspecified (9) Hypertension Hypertension type: essential hypertension Qualified Code(s): I10 - Essential (primary) hypertension (11) CHF (congestive heart failure) Heart failure chronicity: unspecified Heart failure type: unspecified Qualified Code(s): I50.9 - Heart failure, unspecified (12) GERD (gastroesophageal reflux disease) Esophagitis presence: esophagitis presence not specified Qualified Code(s): K21.9 - Gastro-esophageal reflux disease without esophagitis (13) Diabetes Diabetes mellitus complication status: with hyperglycemia Diabetes mellitus senior living insulin use: with senior living use Diabetes mellitus type: type 2 Qualified Code(s): E11.65 - Type 2 diabetes mellitus with hyperglycemia; 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
[2022-10-20] MEDS: INSULIN ASPART PER UNIT CHARGE SC SCH ×4 (08:29→20:42)
[2022-10-20] MEDS: LANTUS PER UNIT CHARGE SQ SCH (08:29)
[2022-10-20] MEDS: POLYETHYLENE (MIRALAX) 17 GM PACK PO PRN (08:30)
[2022-10-20] MEDS: SEVELAMER HCL 800 MG TABLET PO SCH ×3 (08:30→17:20)
[2022-10-20] MEDS: GABAPENTIN 100 MG CAP PO SCH (08:30)
[2022-10-20] MEDS: METOPROLOL TARTRATE 25 MG TAB PO SCH ×2 (08:31→20:44)
[2022-10-20] MEDS: PANTOprazole 40 MG TAB PO SCH ×2 (08:31→20:45)
[2022-10-20] MEDS: ASPIRIN 81 MG ECTAB PO SCH (08:31)
[2022-10-20] MEDS: BUMETANIDE 2 MG in SYRINGE 0 ML IV SCH ×2 (08:31→17:20)
[2022-10-20] MEDS: APIXABAN 2.5 MG TAB PO SCH ×2 (08:31→20:45)
[2022-10-20] MEDS: CEROVITE ADV FORMULA TAB PO SCH (08:31)
[2022-10-20] MEDS: UMECLIDINIUM BROMIDE 62.5MCG/BLISTER 7 PUFFS/INHALER INH SCH (08:32)
[2022-10-20] MEDS: FLUTICASONE/VILANTEROL 200/25MCG 14 PUFFS/INHALER INH SCH (08:32)
[2022-10-20] MEDS: clonazePAM 1 MG TAB PO SCH ×2 (08:37→20:44)
--- NOTE | 2022-10-20 08:37 | Nephrology Progress Note ---
Date of Service October 20, 2022 Assessment & Plan (1) Acute kidney injury superimposed on CKD: Plan: * JUDI likely due to AIN (cipro, cephalexin). Peak Cr 8.4 (10/11/22). Solumedrol 1g IV daily x 3d has been completed. Prednisone 60 mg daily started 10/13/22. Creatinine has improved to 1.98 following HD yesterday. Will reduce Prednisone to 30 mg daily. Recommend continued inpatient management as patient may be recovering kidney function. Will reassess need for HD in am. If kidney function is stable, may be able to hold dialysis and monitor over weekend * R IJ TCC placed by Dr. Ramirez 10/12/22. 1st HD completed 10/13 * Nonoliguric, 540 cc UO last 24 hrs. Maintain Lopez catheter for documentation of I&O's * Continue diuretic therapy to promote diuresis * Continue to hold ARB therapy * Monitor PRP, volume status (2) Chronic kidney disease, stage III (moderate): Plan: * Baseline Cr 2-2.3. Primary Tariff Inspector is Dr. Dixon (3) UTI (urinary tract infection): Plan: * Prior culture +proteus vulgaris. Completed course of treatment. Avoid cephalosporins and fluoroquinolones for now (4) Urethral stricture: Plan: * Followed by Dr. Gunter as an outpatient * Maintain Lopez to gravity pending urology follow up * CT reviewed. No obvious obstructive nephropathy Admission and Anticipated Discharge Date Admission Date: October 08, 2022 Subjective Mr. Monroy was evaluated in his hospital room this morning. He denies fever or dyspnea and reports brisk UO. He hopes to walk in the hallway w/ PT today. Mr. Monroy was last dialyzed 10/19/22 for 2 L UF Review of Systems Constitutional: no fever Eyes: no worsening vision Ear, Nose, Mouth, Throat: no problem reported Respiratory: no dyspnea Cardiovascular: + edema; no chest pain and no palpitations Gastrointestinal: no abdominal pain Physical Exam Constitutional: not in distress Eyes: PERRL, conjunctivae normal, anicteric sclerae ENMT: external ear and nose normal, oropharynx normal Neck: trachea midline, no thyromegaly Respiratory: normal respiratory effort, lungs clear to auscultation Cardiovascular: Rate/Rhythm: regular rate and regular rhythm Heart Sounds: no murmur and no cardiac rub Extremities: + edema (2+ pretibial pitting edema) Gastrointestinal (Abdomen): normal bowel sounds, soft, nontender, no hepatosplenomegaly Inspection/Auscultation: + abdomen distended and + hypoactive bowel sounds Percussion/Palpation: abdomen soft; no guarding Skin: no rashes, warm and dry Results & Data Vital Signs (Past 12 Hours) Vital Signs Temp Pulse Pulse Pulse Resp BP Pulse Ox 10/20/22 07:52 36.7 C 64 19 139/62 94 10/20/22 07:26 74 10/20/22 03:00 36.4 C L 63 18 122/56 L 95 10/19/22 22:00 72 10/19/22 22:00 36.5 C 64 20 147/74 H 96 O2 Del Method 10/20/22 07:52 Room Air 10/20/22 07:26 10/20/22 03:00 Room Air 10/19/22 22:00 10/19/22 22:00 Room Air Laboratory Results Laboratory Tests 10/20/22 10/20/22 05:27 05:27 WBC 18.24 H Hgb 10.8 L Hct 30.6 L Plt Count 176 Sodium 137 Potassium 4.2 Chloride 109 H Carbon Dioxide 24 BUN 48 H D Creatinine 1.98 H D Glucose 161 H Calcium 7.6 L PG Care Time/CCT Total # of Minutes Spent Total Time Spent with Patient: Total time spent is greater than 50% in coordination of care (as documented) at patient's floor/unit and/or counseling patient: Coding Level of Care Code 93177 SUB INP/OBS CARE 3/50MIN Diagnoses Acute kidney injury superimposed on CKD N17.9; N18.9 Chronic kidney disease, stage III (moderate) N18.30 UTI (urinary tract infection) N39.0 Urethral stricture N35.919
[2022-10-20] MEDS ORDERED: predniSONE 20 MG TAB PO SCH (09:00)
--- NOTE | 2022-10-20 09:25 | Pharmacy Report ---
Pharmacy Glycemic Short Note 2 - Date of Service October 20, 2022 - Glycemic Short BSG Results (Last 24 hours): 10/19/22 10/19/22 10/19/22 13:27 16:37 20:12 Glucose POC Glucose 120 H 88 122 H 10/20/22 10/20/22 05:27 07:38 Glucose 161 H POC Glucose 170 H OUTPATIENT ANTIDIABETIC REGIMEN: * Lantus 52 units SC qAM, 50 units SC qPM * Glipizide 10 mg PO BID * Empagliflozin 10 mg PO daily HbA1c: 9.7% (12/14/21) ASSESSMENT: 10/20/22 * Aj received 61 units of SQ insulin yesterday with variable glycemic control: * BSGs: 293, 120, 88, 122 * 25 units Lantus + 36 units Novolog * Patient received dialysis * Fasting BSG of 170 mg/dL. Will continue current Lantus dose for today although I anticipate he may need dose reduction with repeat dosing and decrease in prednisone dose. Will change to dose per scale starting tomorrow. * Novolog carb ratio was loosened yesterday evening. Would anticipate needing further loosening today secondary to decrease in prednisone dose, however lunch BSG was 223 mg/dL, therefore will keep for now. 10/19/22 * BSGs yesterday were 043-167-875-238 mg/dL. Patient received 21 units of Novolog. * Fasting today was 293 mg/dL. * Will resume basal insulin at 25 units. Initially had considered 15 units of Lantus but with such a change in fasting (111 --> 293), it is evident that patient requires more than 15 units of Lantus. * Patient continues prednisone 60 mg daily. He received dialysis today. Lunch BSG was 120 mg/dL. * Tightened Novolog back to previous parameters 10/18/22 * BSGs yesterday were 84-31-282-72 mg/dL and overnight 46 mg/dL. * Patient received 51 units of insulin (30 units of basal and 21 units of bolus). * Patient continues on prednisone 60 mg daily. * Unclear reason for continued hypoglycemia yesterday. Patient tolerates much higher Lantus dosing as an outpatient (102 units) + had tolerated Lantus 30 units x 3 days prior to these hypoglycemic events. * Will hold Lantus today and resume tomorrow. * Loosen Novolog slightly. 10/17 * Patient's BSGs yesterday were [phone] mg/dL. Patient received 72 units of insulin (30 units of basal and 42 units of bolus). * Fasting today is 80 mg/dL. Patient continues on prednisone 60 mg daily. * Continue current regimen as BSGs well controlled. Low threshold to reduce Lantus dose. 10/14: * BSGs improved yesterday w/ episode of hypoglycemia this morning (69 mg/dL) * Continues on prednisone 60 mg PO daily today (likely to continue for 1-2 weeks) * Likely too much basal insulin yesterday, will decrease * Continue weight-based stress of 3 Novolog parameters * HD this morning See previous notes for additional background PLAN FOR INPATIENT GLYCEMIC CONTROL: * Hold outpatient oral diabetes medications * Basal insulin * Lantus 25 units qAM today * Start Lantus 20-25 units SQ qAM on 10/21 (25 units only if BSG is > 150 mg/dL) * Bolus insulin * NovoLog per scale ACHS or Q6hrs while NPO * Goal Range: Low 110 mg/dL - High 140 mg/dL * Correction Factor: 15 mg/dL/unit * Nutritional / Prandial insulin per carb ratio of 1 unit per 5 grams CHO consumed
--- NOTE | 2022-10-20 12:51 | Billing Data ---
Date of Service October 20, 2022 Coding Level of Care Code 67541 SUB INP/OBS CARE
[2022-10-20] MEDS: ROSUVASTATIN CALCIUM 10 MG TAB PO SCH (20:45)
[2022-10-20] MEDS: TAMSULOSIN HCL 0.4 MG CAP PO SCH (20:46)
[2022-10-20] MEDS: FINASTERIDE 5 MG TAB PO SCH (20:46)
[2022-10-21] MEDS: LEVOTHYROXINE SODIUM 88 MCG TABLET PO SCH (05:19)
[2022-10-21 06:21] LABS: Hematocrit (blood only) 29.7 % (42.0-52.0); Hemoglobin 10.5 g/dl (14.0-18.0); Mean Corpuscular Hgb Conc 35.4 g/dL (32.0-36.0); Mean Corpuscular Volume 90.5 fL (80.0-100.0); Mean Platelet Volume 9.3 fL (9.4-12.4); Platelet Count 149 K/uL (130-400); RDW Coefficient of Variation 13.2 % (11.5-14.5); RDW Standard Deviation 43.8 fL (36.4-46.3); Red Blood Count 3.28 M/uL (4.70-6.10); White Blood Count 14.14 K/ul (4.8-10.8)
[2022-10-21 06:38] LABS: BUN Creatinine Ratio 26.5 (10-20); Calcium 7.6 mg/dl (8.6-10.3); Creatinine Clr Calc Pharmacy 29.1 ml/min; Est GFR (African American) 33.2 ml/min; Est GFR (Non-African American) 28.7 ml/min
--- NOTE | 2022-10-21 07:04 | Hospitalist Progress Note ---
Date of Service October 21, 2022 Assessment & Plan (1) Fluid overload: Plan: 86yo Male with PMH CHF EF 60-65%, DM2, asthma, COPD, Hx. [place], DVT, hypothyroidism, CKD, HTN, HLD, chronic leg wound, GERD here for increased swelling in face, extremities, and found to have JUDI on CKD. JUDI on CKD: -concern for ATN vs AIN with component of post-renal obstructive -Creat 6.19 on admission (baseline 2), last session of HD was Monday and creatine today remains around 2. No significant change from yesterday. -CT A&P showed no evidence of hydronephrosis. Chronic appearing bladder wall thickening is likely due to chronic outlet obstruction -Urology consulted; Lopez placed. Allow for catheter for at least 1 week, can follow up w/ urology outpatient for voiding trial. -Nephrology consulted: -Possible ATN in setting of recent infection vs AIN from recent antibiotic use. -decrease prednisone to 30mg daily -Strict I&Os - Continue Bumex BID as he continues to make urine -trend BMP Leukocytosis - likely secondary to steroid use; trending down - no signs of infection - will continue to trend Hyperkalemia: -potassium 6.1 on admission, stabilized with dialysis -Continue Bumex 2mg IV BID, as long as he continues to make urine Hyperglycemia in the setting of DM2 - Was hyperglycemic earlier during this admission, more recently has had e pisodes of hypoglycemia - Glycemic consult, appreciate recommendations. - Hemoglobin a1c on this admission= 11.5 Prostatitis: -cipro was stopped given renal function -urine culture 10/05 grew proteus vulgaris, repeat from 10/08 grew baylee glabrata - ID consulted. They do not believe he has prostatitis, will hold on further antibiotics - ID does not recommend treatment of baylee glabrata in urine Wheeze: -continue home inhalers -ordered albuterol q6hr nebulizer HTN, Hx. [place]: -continue metoprolol, aspirin -hold losartan given JUDI BPH: -continue tamsulosin, increased to 0.8mg -continue finasteride HLD: -continue rosuvastatin, dose redcued to 10mg daily GERD: -continue protonix Anxiety: -continue clonapin, gabapentin (reduced to 100mg daily) Hypothyroidism -continue levothyroxine FENa: heart healthy DM2 fluid restriction 1.5L Code Status: DNR/DNI is POA DVT PPX: Alisonquis (2) Acute kidney injury superimposed on CKD: (3) DVT (deep venous thrombosis): (4) Prostatitis: (5) Acute hyperkalemia: (6) Abdominal distension: (7) Benign prostatic hyperplasia with urinary obstruction: (8) Hypothyroidism: (9) Hypertension: (10) Dyslipidemia: (11) CHF (congestive heart failure): (12) GERD (gastroesophageal reflux disease): (13) Diabetes: Admission and Anticipated Discharge Date Admission Date: October 08, 2022 Supervising Physician Co-Signing Physician Notes I personally examined the patient and verified all aguayo points of history and exam, discussed case, and agree with decision making with Dr Christian feels good. hopefully done w HD vitals noted nad heent nc at mmm breathing unlabored no accessory muscles good effort skin no rashes no pallor or icterus AIN/ARF - HD. Nephrology continuing to follow as acute dialysisfor rehab once nephrology feels stable for discharge. Follow leukocytosis given that he has no signs or symptoms of infection, it is probably steroid relatedimproving. Otherwise as above. doing well overall. Continue to adjust insulins as steroids come down Subjective Chang is doing well this morning. No complaints. Continues to make urine. Appetite is good. Review of Systems Review of Systems: As per above Physical Exam Physical Exam: Constitutional: well-appearing, no acute distress HEENT: NCAT, no conjunctival injection CV: extremities well-perfused, 1+ LE edema Resp: no increased work of breathing MSK: no gross deformities appreciated Skin: warm, dry, no rash appreciated Neuro: alert, oriented, no focal neurologic deficit appreciated Results & Data Results & Data Vital Signs (Past 12 Hours) Vital Signs Temp Pulse Pulse Pulse Resp BP BP 10/21/22 03:25 62 18 148/67 H 10/20/22 22:22 75 10/20/22 23:43 36.4 C L 58 L 18 173/72 H 10/20/22 19:55 36.6 C 66 18 126/63 Pulse Ox O2 Del Method 10/21/22 03:25 93 Room Air 10/20/22 22:22 10/20/22 23:43 97 Room Air 10/20/22 19:55 94 Room Air Resident Activity Tracking Resident Involvement: Resident Care Provided Care Provided: Adult Hospital Medicine (4) Prostatitis Prostatitis type: acute Qualified Code(s): N41.0 - Acute prostatitis (8) Hypothyroidism Hypothyroidism type: unspecified Qualified Code(s): E03.9 - Hypothyroidism, unspecified (9) Hypertension Hypertension type: essential hypertension Qualified Code(s): I10 - Essential (primary) hypertension (11) CHF (congestive heart failure) Heart failure chronicity: unspecified Heart failure type: unspecified Qualified Code(s): I50.9 - Heart failure, unspecified (12) GERD (gastroesophageal reflux disease) Esophagitis presence: esophagitis presence not specified Qualified Code(s): K21.9 - Gastro-esophageal reflux disease without esophagitis (13) Diabetes Diabetes mellitus complication status: with hyperglycemia Diabetes mellitus nursing home insulin use: with nursing home use Diabetes mellitus type: type 2 Qualified Code(s): E11.65 - Type 2 diabetes mellitus with hyperglycemia; Z79.4 - skilled nursing (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
--- NOTE | 2022-10-21 08:44 | Nephrology Progress Note ---
Date of Service October 21, 2022 Assessment & Plan (1) Acute kidney injury superimposed on CKD: Plan: * JUDI likely due to AIN (cipro, cephalexin). Peak Cr 8.4 (10/11/22). Solumedrol 1g IV daily x 3d has been completed. Prednisone 60 mg daily started 10/13/22. Kidney function is now back to baseline and has remained stable at Cr 2.0 off HD. Will reduce Prednisone to 20 mg daily * R IJ TCC placed by Dr. Ramirez 10/12/22. 1st HD completed 10/13. Last HD 10/19/22. No acute indication for HD today. Will hold HD and monitor PRP, UO and volume status. If stable over weekend, patient may be able to have IJ TCC removed early next week * Continue diuretic therapy to promote diuresis * Continue to hold ARB therapy (2) Chronic kidney disease, stage III (moderate): Plan: * Baseline Cr 2-2.3. Primary Record[employer] Operator is Dr. Dixon (3) UTI (urinary tract infection): Plan: * Prior culture +proteus vulgaris. Completed course of treatment. Avoid cephalosporins and fluoroquinolones for now (4) Urethral stricture: Plan: * Followed by Dr. Gunter as an outpatient * Maintain Lopez to gravity pending urology follow up * CT reviewed. No obvious obstructive nephropathy Admission and Anticipated Discharge Date Admission Date: October 08, 2022 Subjective Mr. Monroy was evaluated in his hospital room this morning. He denies fever or dyspnea. He reports persistent dependent edema but improved UO. Mr. Monroy was last dialyzed 10/19/22 for 2 L UF Review of Systems Constitutional: no fever Eyes: no worsening vision Ear, Nose, Mouth, Throat: no problem reported Respiratory: no dyspnea Cardiovascular: + edema; no chest pain and no palpitations Gastrointestinal: no abdominal pain Physical Exam Constitutional: not in distress Eyes: PERRL, conjunctivae normal, anicteric sclerae ENMT: external ear and nose normal, oropharynx normal Neck: trachea midline, no thyromegaly Respiratory: normal respiratory effort, lungs clear to auscultation Cardiovascular: Rate/Rhythm: regular rate and regular rhythm Heart Sounds: no murmur and no cardiac rub Extremities: + edema (2+ pretibial pitting edema) Gastrointestinal (Abdomen): normal bowel sounds, soft, nontender, no hepatosplenomegaly Skin: no rashes, warm and dry Results & Data Vital Signs (Past 12 Hours) Vital Signs Temp Pulse Pulse Pulse Resp BP Pulse Ox 10/21/22 07:56 36.3 C L 65 18 144/63 H 97 10/21/22 03:25 62 18 148/67 H 93 10/20/22 22:22 75 10/20/22 23:43 36.4 C L 58 L 18 173/72 H 97 O2 Del Method 10/21/22 07:56 Room Air 10/21/22 03:25 Room Air 10/20/22 22:22 10/20/22 23:43 Room Air Laboratory Results Laboratory Tests 10/21/22 10/21/22 05:47 05:47 WBC 14.14 H Hgb 10.5 L Hct 29.7 L Plt Count 149 Sodium 138 Potassium 4.0 Chloride 109 H Carbon Dioxide 25 BUN 54 H Creatinine 2.04 H Glucose 102 H PG Care Time/CCT Total # of Minutes Spent Total Time Spent with Patient: Total time spent is greater than 50% in coordination of care (as documented) at patient's floor/unit and/or counseling patient: Coding Level of Care Code 45216 SUB INP/OBS CARE 3/50MIN Diagnoses Acute kidney injury superimposed on CKD N17.9; N18.9 Chronic kidney disease, stage III (moderate) N18.30 UTI (urinary tract infection) N39.0 Urethral stricture N35.919
[2022-10-21] MEDS: LANTUS PER UNIT CHARGE SQ SCH (08:58)
[2022-10-21] MEDS: INSULIN ASPART PER UNIT CHARGE SC SCH ×5 (08:59→21:06)
[2022-10-21] MEDS: clonazePAM 1 MG TAB PO SCH ×2 (08:59→21:19)
[2022-10-21] MEDS: APIXABAN 2.5 MG TAB PO SCH ×2 (08:59→21:16)
[2022-10-21] MEDS: METOPROLOL TARTRATE 25 MG TAB PO SCH ×2 (08:59→21:16)
[2022-10-21] MEDS: ASPIRIN 81 MG ECTAB PO SCH (09:00)
[2022-10-21] MEDS ORDERED: predniSONE 10 MG TABLET PO SCH (09:00)
[2022-10-21] MEDS: PANTOprazole 40 MG TAB PO SCH ×2 (09:00→21:17)
[2022-10-21] MEDS: CEROVITE ADV FORMULA TAB PO SCH (09:00)
[2022-10-21] MEDS: BUMETANIDE 2 MG in SYRINGE 0 ML IV SCH ×2 (09:00→17:25)
[2022-10-21] MEDS: GABAPENTIN 100 MG CAP PO SCH (09:01)
[2022-10-21] MEDS: FLUTICASONE/VILANTEROL 200/25MCG 14 PUFFS/INHALER INH SCH (09:01)
[2022-10-21] MEDS: SEVELAMER HCL 800 MG TABLET PO SCH ×3 (09:01→17:24)
[2022-10-21] MEDS: UMECLIDINIUM BROMIDE 62.5MCG/BLISTER 7 PUFFS/INHALER INH SCH (09:01)
--- NOTE | 2022-10-21 13:01 | Pharmacy Report ---
Pharmacy Glycemic Short Note 2 - Date of Service October 21, 2022 - Glycemic Short BSG Results (Last 24 hours): 10/20/22 10/20/22 10/21/22 16:35 20:36 05:47 Glucose 102 H POC Glucose 119 H 177 H 10/21/22 10/21/22 07:54 11:10 Glucose POC Glucose 92 192 H OUTPATIENT ANTIDIABETIC REGIMEN: * Lantus 52 units SC qAM, 50 units SC qPM * Glipizide 10 mg PO BID * Empagliflozin 10 mg PO daily HbA1c: 9.7% (12/14/21) ASSESSMENT: 10/21/22 * Aj received 55 units of SQ insulin yesterday with decent glycemic control: * BSGs: 170, 223, 119, 177 * 25 units Lantus + 30 units Novolog * Fasting BSG of 92 mg/dL. This is a significant reduction compared to fasting of 170 mg/dL yesterday. Lantus dose has already been reduced for today. * Prednisone dose decreased to 30 mg today and ordered for 20 mg tomorrow. Novolog correction factor and carb ratio will be loosened. 10/20/22 * Aj received 61 units of SQ insulin yesterday with variable glycemic control: * BSGs: 293, 120, 88, 122 * 25 units Lantus + 36 units Novolog * Patient received dialysis * Fasting BSG of 170 mg/dL. Will continue current Lantus dose for today although I anticipate he may need dose reduction with repeat dosing and decrease in prednisone dose. Will change to dose per scale starting tomorrow. * Novolog carb ratio was loosened yesterday evening. Would anticipate needing further loosening today secondary to decrease in prednisone dose, however lunch BSG was 223 mg/dL, therefore will keep for now. 10/19/22 * BSGs yesterday were 072-912-278-238 mg/dL. Patient received 21 units of Novolog. * Fasting today was 293 mg/dL. * Will resume basal insulin at 25 units. Initially had considered 15 units of Lantus but with such a change in fasting (111 --> 293), it is evident that patient requires more than 15 units of Lantus. * Patient continues prednisone 60 mg daily. He received dialysis today. Lunch BSG was 120 mg/dL. * Tightened Novolog back to previous parameters 10/18/22 * BSGs yesterday were 02-27-938-72 mg/dL and overnight 46 mg/dL. * Patient received 51 units of insulin (30 units of basal and 21 units of bolus). * Patient continues on prednisone 60 mg daily. * Unclear reason for continued hypoglycemia yesterday. Patient tolerates much higher Lantus dosing as an outpatient (102 units) + had tolerated Lantus 30 units x 3 days prior to these hypoglycemic events. * Will hold Lantus today and resume tomorrow. * Loosen Novolog slightly. 10/17 * Patient's BSGs yesterday were [phone] mg/dL. Patient received 72 units of insulin (30 units of basal and 42 units of bolus). * Fasting today is 80 mg/dL. Patient continues on prednisone 60 mg daily. * Continue current regimen as BSGs well controlled. Low threshold to reduce Lantus dose. See previous notes for additional background PLAN FOR INPATIENT GLYCEMIC CONTROL: * Hold outpatient oral diabetes medications * Basal insulin * Lantus 18-22 units SQ qAM * Bolus insulin * NovoLog per scale ACHS or Q6hrs while NPO * Goal Range: Low 110 mg/dL - High 140 mg/dL * Correction Factor: 20 mg/dL/unit * Nutritional / Prandial insulin per carb ratio of 1 unit per 6 grams CHO consumed
--- NOTE | 2022-10-21 16:06 | Billing Data ---
Date of Service October 21, 2022 Coding Level of Care Code 20607 SUB INP/OBS CARE 06/22MIN
[2022-10-21] MEDS: ROSUVASTATIN CALCIUM 10 MG TAB PO SCH (21:15)
[2022-10-21] MEDS: FINASTERIDE 5 MG TAB PO SCH (21:17)
[2022-10-21] MEDS: TAMSULOSIN HCL 0.4 MG CAP PO SCH (21:17)
[2022-10-22] MEDS ORDERED: ACETAMINOPHEN 500 MG TAB PO PRN (00:11)
[2022-10-22] MEDS: LEVOTHYROXINE SODIUM 88 MCG TABLET PO SCH (05:19)
[2022-10-22 06:17] LABS: Hematocrit (blood only) 29.4 % (42.0-52.0); Hemoglobin 10.3 g/dl (14.0-18.0); Mean Corpuscular Hemoglobin 31.2 pg (25.0-34.0); Mean Corpuscular Volume 89.1 fL (80.0-100.0); Mean Platelet Volume 9.2 fL (9.4-12.4); Platelet Count 172 K/uL (130-400); RDW Coefficient of Variation 13.2 % (11.5-14.5); RDW Standard Deviation 43.5 fL (36.4-46.3); White Blood Count 13.64 K/ul (4.8-10.8)
--- NOTE | 2022-10-22 06:47 | Hospitalist Progress Note ---
Date of Service October 22, 2022 Assessment & Plan (1) Fluid overload: Plan: 86yo Male with PMHx of HFpEF 60-65%, DM2, asthma, COPD, CAD with previous SD, DVT, hypothyroidism, CKD, HTN, HLD, chronic leg wound, GERD here for increased swelling in face, extremities, and found to have JUDI on CKD now with improving creatinine. #JUDI on CKD Concern for ATN vs AIN with component of post-renal obstructive as patient recently treated with cipro for presumed prostatitis. CT A&P showed no evidence of hydronephrosis. Chronic appearing bladder wall thickening is likely due to chronic outlet obstruction. Cr 6.19 with K of 6.1 on admission. Patient was trialed on dialysis and responded will. Cr downtrending. Baseline ~ 2.0. Holding dialysis to assure stabilization of Cr without further intervention. [] Urology on board - rec Lopez for at least 1 week, f/u outpatient for voiding trial [] Nephrology consulted - appreciate recs [] Stricts Is & Os [] Bumex BID [] AM BMP [] pred 20 mg QD, continue to taper #Hyperglycemia in the setting of DM2 Patient on empagliflozin, glipizide, and insulin at home. Was hyperglycemic earlier during this admission, more recently has had episodes of hypoglycemia. Glycemic consult, appreciate recommendations. [] SSI [] glycemic consult - appreciate recs [] HbA1c 11.5 #Leukocytosis - resolved Like in the setting of high dose steroid use. Has since resolved. #Hyperkalemia - resolved with dialysis K 6.1 on admit in the setting of JUDI on CKD. Resolved with dialysis. No stable without intervention. #Prostatitis Patient was started on ciprofloxacin outpatient for presumed prostatitis. This was d/c in the setting of JUDI on CKD with Cr of 6. Urine cx grew proteus vulgaris, repeat baylee glabrata no need to treat. ID consulted discussed likely not prostatitis thus no need for further abx. cipro was stopped given renal function #Reactive Airway Disease Continue home inhalers #HTN #CAD - SD On losartan, metoprolol, and ASA at home. Held losartan in setting of JUDI on CKD. Can resume once Cr stabilizes #BPH On tamsulosin and finasteride at home. Increased tamsulosin to 0.8mg #HLD Continue rosuvastatin, dose reduced to 10mg daily #GERD Continue protonix #Anxiety Patient on clonazepam and gabapentin 100 mg QAM and 300 mg QHS. PM dose init ially held in the setting of CrCl < 15. Will resume PM dosing #Hypothyroidism Continue levothyroxine FENGI: heart healthy DM2 fluid restriction 1.5L Consults: Urology Nephrology Code Status: DNR/DNI is POA DVT PPX: Eliquis Dispo: MedSurg Tele, rehab vs home with home health - CM following (2) Acute kidney injury superimposed on CKD: (3) DVT (deep venous thrombosis): (4) Prostatitis: (5) Acute hyperkalemia: (6) Abdominal distension: (7) Benign prostatic hyperplasia with urinary obstruction: (8) Hypothyroidism: (9) Hypertension: (10) Dyslipidemia: (11) CHF (congestive heart failure): (12) GERD (gastroesophageal reflux disease): (13) Diabetes: Admission and Anticipated Discharge Date Admission Date: October 08, 2022 Supervising Physician Co-Signing Physician Notes I personally examined the patient and verified all aguayo points of history and exam, discussed case, and agree with decision making with Dr Lynne No acute complaints. Pleased with progress. vitals noted nad heent nc at mmm breathing unlabored no accessory muscles good effort skin no rashes no pallor or icterus AIN/ARF -improved nicely. Right now does not appear that he will need further dialysis, renal function is basically back at his baseline, he has not had dialysis for several days, and he is holding stable. Otherwise as above Subjective Doing well this morning. No complaints. Sitting with his at bedside. No f/c/SOB/CP. Feels swelling is improving. Patient reports difficulty sleeping at night since his gabapentin has been held. Review of Systems Review of Systems: As per above Physical Exam Physical Exam: Constitutional: well-appearing, no acute distress HEENT: NCAT, no conjunctival injection CV: RRR no m/r/g extremities well-perfused, 2 + BLE edema Resp: CTAB no wheezing, no increased work of breathing MSK: no gross deformities appreciated Skin: wrapped LLE, no strikethrough. Warm, dry, no rash appreciated Neuro: alert, oriented, no focal neurologic deficit appreciated Results & Data Results & Data Vital Signs (Past 12 Hours) Vital Signs Temp Pulse Pulse Resp BP BP Pulse Ox 10/22/22 03:54 65 18 135/63 95 10/21/22 22:29 81 10/21/22 22:17 76 10/21/22 21:30 10/21/22 23:20 36.4 C L 76 18 180/82 H 97 10/21/22 19:33 68 18 153/81 H 97 O2 Del Method 10/22/22 03:54 Room Air 10/21/22 22:29 10/21/22 22:17 10/21/22 21:30 Room Air 10/21/22 23:20 Room Air 10/21/22 19:33 Room Air Laboratory Results 10/22/22 05:54 10/22/22 05:54 Resident Activity Tracking Resident Involvement: Resident Care Provided Care Provided: Adult Hospital Medicine (4) Prostatitis Prostatitis type: acute Qualified Code(s): N41.0 - Acute prostatitis (8) Hypothyroidism Hypothyroidism type: unspecified Qualified Code(s): E03.9 - Hypothyroidism, unspecified (9) Hypertension Hypertension type: essential hypertension Qualified Code(s): I10 - Essential (primary) hypertension (11) CHF (congestive heart failure) Heart failure chronicity: unspecified Heart failure type: unspecified Qualified Code(s): I50.9 - Heart failure, unspecified (12) GERD (gastroesophageal reflux disease) Esophagitis presence: esophagitis presence not specified Qualified Code(s): K21.9 - Gastro-esophageal reflux disease without esophagitis (13) Diabetes Diabetes mellitus complication status: with hyperglycemia Diabetes mellitus joint terminal attack controller insulin use: with joint terminal attack controller use Diabetes mellitus type: type 2 Qualified Code(s): E11.65 - Type 2 diabetes mellitus with hyperglycemia; Z79.4 - residential (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
[2022-10-22 06:51] LABS: Calcium 7.6 mg/dl (8.6-10.3); Potassium 3.9 mmol/L (3.5-5.1)
[2022-10-22 06:56] LABS: BUN Creatinine Ratio 30.5 (10-20); Creatinine Clr Calc Pharmacy 29.6 ml/min; Est GFR (Non-African American) 29.3 ml/min
[2022-10-22] MEDS: BUMETANIDE 2 MG in SYRINGE 0 ML IV SCH ×2 (08:52→17:08)
[2022-10-22] MEDS: SEVELAMER HCL 800 MG TABLET PO SCH ×3 (09:35→17:07)
[2022-10-22] MEDS: INSULIN ASPART PER UNIT CHARGE SC SCH ×4 (09:36→21:02)
[2022-10-22] MEDS: LANTUS PER UNIT CHARGE SQ SCH (09:49)
[2022-10-22] MEDS: APIXABAN 2.5 MG TAB PO SCH ×2 (10:24→20:17)
[2022-10-22] MEDS: ASPIRIN 81 MG ECTAB PO SCH (10:24)
[2022-10-22] MEDS: CEROVITE ADV FORMULA TAB PO SCH (10:25)
[2022-10-22] MEDS: METOPROLOL TARTRATE 25 MG TAB PO SCH ×2 (10:25→20:17)
[2022-10-22] MEDS: GABAPENTIN 100 MG CAP PO SCH ×2 (10:25→20:18)
[2022-10-22] MEDS: PANTOprazole 40 MG TAB PO SCH ×2 (10:26→20:17)
[2022-10-22] MEDS: UMECLIDINIUM BROMIDE 62.5MCG/BLISTER 7 PUFFS/INHALER INH SCH (10:26)
[2022-10-22] MEDS: predniSONE 20 MG TAB PO SCH (10:26)
[2022-10-22] MEDS: clonazePAM 1 MG TAB PO SCH ×2 (10:32→20:20)
[2022-10-22] MEDS: FLUTICASONE/VILANTEROL 200/25MCG 14 PUFFS/INHALER INH SCH (10:35)
--- NOTE | 2022-10-22 12:25 | Nephrology Progress Note ---
Date of Service October 22, 2022 Assessment & Plan (1) Acute kidney injury superimposed on CKD: Plan: * JUDI likely due to AIN (cipro, cephalexin). Peak Cr 8.4 (10/11/22). Solumedrol 1g IV daily x 3d has been completed. Prednisone 60 mg daily started 10/13/22. Kidney function is now back to baseline and has remained stable at Cr 2.0 off HD. Will continue Prednisone to 20 mg daily and eventually wean off over the next week * R IJ TCC placed by Dr. Ramirez 10/12/22. 1st HD completed 10/13. Last HD 10/19/22. No acute indication for HD today. Will hold HD and monitor PRP, UO and volume status. If stable over weekend, patient may be able to have IJ TCC removed early next week * Continue diuretic therapy to promote diuresis * Continue to hold ARB therapy (2) Chronic kidney disease, stage III (moderate): Plan: * Baseline Cr 2-2.3. Primary Airport Ramp Agent is Dr. Dixon (3) UTI (urinary tract infection): Plan: * Prior culture +proteus vulgaris. Completed course of treatment. Avoid cephalosporins and fluoroquinolones for now (4) Urethral stricture: Plan: * Followed by Dr. Gunter as an outpatient * Maintain Lopez to gravity pending urology follow up * CT reviewed. No obvious obstructive nephropathy Admission and Anticipated Discharge Date Admission Date: October 08, 2022 Subjective No acute events overnight. No complaints this AM. Lopez draining clear yellow urine. Edema continues to improve. Activity tolerance improving. Review of Systems Review of Systems: All systems reviewed & are unremarkable except as noted in HPI & below Physical Exam Constitutional: well developed and + frail appearing; no acute distress Eyes: no scleral abnormality and no corneal abnormality ENMT: Mouth: no oral mucosal abnormality and oral mucous membranes not dry Neck: normal visual inspection and trachea midline Respiratory: normal respiratory effort and + tachypneic Auscultation: lungs clear to auscultation bilaterally and + wheezes Cardiovascular: Rate/Rhythm: regular rate Heart Sounds: normal S1 and normal S2 Extremities: + edema and + varicosities Musculoskeletal: Extremities: no cyanosis and no clubbing Skin: normal turgor, + turgor decreased and + ecchymosis; no lesions and no jaundice Neurologic: Motor/Sensory: no tremor and no asterixis Psychiatric: Orientation: alert and oriented x 3 Results & Data Vital Signs (Past 12 Hours) Vital Signs Temp Pulse Pulse Resp BP BP Pulse Ox 10/22/22 12:00 36.5 C 66 18 162/72 H 97 10/22/22 08:00 60 10/22/22 08:33 36.5 C 66 18 145/72 H 97 10/22/22 03:54 65 18 135/63 95 O2 Del Method 10/22/22 12:00 Room Air 10/22/22 08:00 10/22/22 08:33 Room Air 10/22/22 03:54 Room Air Laboratory Results Laboratory Results - last 24 hr 10/21/22 10/21/22 10/22/22 17:01 20:38 05:54 WBC 13.64 H RBC 3.30 L Hgb 10.3 L Hct 29.4 L MCV 89.1 MCH 31.2 MCHC 35.0 RDW Std Deviation 43.5 RDW Coeff of Adrian 13.2 Plt Count 172 MPV 9.2 L Sodium Potassium Chloride Carbon Dioxide Anion Gap BUN Creatinine Est Cr Clr Drug Dosing Est GFR ( Amer) Est GFR (Non-Af Amer) BUN/Creatinine Ratio Glucose POC Glucose 129 H 161 H Calcium 10/22/22 10/22/22 10/22/22 05:54 07:49 11:37 WBC RBC Hgb Hct MCV MCH MCHC RDW Std Deviation RDW Coeff of Adrian Plt Count MPV Sodium 138 Potassium 3.9 Chloride 109 H Carbon Dioxide 24 Anion Gap 5 BUN 61 H Creatinine 2.00 H Est Cr Clr Drug Dosing 29.6 Est GFR ( Amer) 34.0 Est GFR (Non-Af Amer) 29.3 BUN/Creatinine Ratio 30.5 H Glucose 228 H POC Glucose 234 H 267 H Calcium 7.6 L PG Care Time/CCT Total # of Minutes Spent Total Time Spent with Patient: Total time spent is greater than 50% in coordination of care (as documented) at patient's floor/unit and/or counseling patient: Coding Level of Care Code 72718 SUB INP/OBS CARE 3/50MIN Diagnoses Acute kidney injury superimposed on CKD N17.9; N18.9 Chronic kidney disease, stage III (moderate) N18.30 UTI (urinary tract infection) N39.0 Urethral stricture N35.919
--- NOTE | 2022-10-22 15:41 | Billing Data ---
Date of Service October 22, 2022 Coding Level of Care Code 79769 SUB INP/OBS CARE
[2022-10-22] MEDS: ROSUVASTATIN CALCIUM 10 MG TAB PO SCH (20:17)
[2022-10-22] MEDS: FINASTERIDE 5 MG TAB PO SCH (20:18)
[2022-10-22] MEDS: TAMSULOSIN HCL 0.4 MG CAP PO SCH (20:18)
[2022-10-23] MEDS: LEVOTHYROXINE SODIUM 88 MCG TABLET PO SCH (05:03)
[2022-10-23 05:58] LABS: Hematocrit (blood only) 29.3 % (42.0-52.0); Mean Corpuscular Hemoglobin 31.2 pg (25.0-34.0); Mean Corpuscular Hgb Conc 34.1 g/dL (32.0-36.0); Mean Corpuscular Volume 91.3 fL (80.0-100.0); Mean Platelet Volume 9.2 fL (9.4-12.4); Platelet Count 141 K/uL (130-400); RDW Coefficient of Variation 13.3 % (11.5-14.5); RDW Standard Deviation 44.6 fL (36.4-46.3); Red Blood Count 3.21 M/uL (4.70-6.10)
[2022-10-23 06:08] LABS: BUN Creatinine Ratio 32.5 (10-20); Calcium 7.6 mg/dl (8.6-10.3); Creatinine Clr Calc Pharmacy 29.6 ml/min; Est GFR (Non-African American) 29.3 ml/min; Potassium 3.9 mmol/L (3.5-5.1)
--- NOTE | 2022-10-23 06:55 | Hospitalist Progress Note ---
Date of Service October 23, 2022 Assessment & Plan (1) Fluid overload: Plan: 86yo Male with PMHx of HFpEF 60-65%, DM2, asthma, COPD, CAD with previous CA, DVT, hypothyroidism, CKD, HTN, HLD, chronic leg wound, GERD here for increased swelling in face, extremities, and found to have JUDI on CKD now with stable creatinine and improving fluid status. #JUDI on CKD Concern for ATN vs AIN with component of post-renal obstructive as patient recently treated with cipro for presumed prostatitis. CT A&P showed no evidence of hydronephrosis. Chronic appearing bladder wall thickening is likely due to chronic outlet obstruction. Cr 6.19 with K of 6.1 on admission. Patient was trialed on dialysis and responded will. Cr downtrending. Baseline ~ 2.0. Holding dialysis to assure stabilization of Cr without further intervention. [] Urology on board - rec Lopez for at least 1 week, f/u outpatient for voiding trial [] Nephrology consulted - appreciate recs [] Stricts Is & Os [] Bumex BID [] AM BMP [] pred 20 mg QD, continue to taper #Hyperglycemia in the setting of DM2 Patient on empagliflozin, glipizide, and insulin at home. Was hyperglycemic earlier during this admission, more recently has had episodes of hypoglycemia. Glycemic consult, appreciate recommendations. [] SSI [] glycemic consult - appreciate recs [] HbA1c 11.5 #Leukocytosis - resolved Like in the setting of high dose steroid use. Has since resolved. #Hyperkalemia - resolved with dialysis K 6.1 on admit in the setting of JUDI on CKD. Resolved with dialysis. No stable without intervention. #Prostatitis Patient was started on ciprofloxacin outpatient for presumed prostatitis. This was d/c in the setting of JUDI on CKD with Cr of 6. Urine cx grew proteus vulgaris, repeat baylee glabrata no need to treat. ID consulted discussed likely not prostatitis thus no need for further abx. cipro was stopped given renal function #Reactive Airway Disease Continue home inhalers #HTN #CAD - [place] On losartan, metoprolol, and ASA at home. Held losartan in setting of JUDI on CKD - will resume #BPH On tamsulosin and finasteride at home. Increased tamsulosin to 0.8mg #HLD Continue rosuvastatin, dose reduced to 10mg daily initially. Resume home dosing 20 mg QHS. #GERD Continue protonix #Anxiety Patient on clonazepam and gabapentin 100 mg QAM and 300 mg QHS. PM dose initially held in the setting of CrCl < 15. Will resume PM dosing #Hypothyroidism Continue levothyroxine FENGI: heart healthy DM2 fluid restriction 1.5L Consults: Urology Nephrology Code Status: DNR/DNI is POA DVT PPX: Eliquis Dispo: MedSurg Tele, rehab vs home with home health - CM following (2) Acute kidney injury superimposed on CKD: (3) DVT (deep venous thrombosis): (4) Prostatitis: (5) Acute hyperkalemia: (6) Abdominal distension: (7) Benign prostatic hyperplasia with urinary obstruction: (8) Hypothyroidism: (9) Hypertension: (10) Dyslipidemia: (11) CHF (congestive heart failure): (12) GERD (gastroesophageal reflux disease): (13) Diabetes: Admission and Anticipated Discharge Date Admission Date: October 08, 2022 Supervising Physician Co-Signing Physician Notes I personally examined the patient and verified all aguayo points of history and exam, discussed case, and agree with decision making with Dr Lynne No acute complaints. doing well. vitals noted nad heent nc at mmm breathing unlabored no accessory muscles good effort skin no rashes no pallor or icterus AIN/ARF -improved nicely. Right now does not appear that he will need further dialysis, renal function is basically back at his baseline, he has not had dialysis for several days, and he is holding stable. Hopefully can DC dialysis line in the next day or 2, and then probably home shortly thereafter. Leave Lopez in until urology follow-up, slowly wean steroids. Otherwise as above, with his progress, while disposition plan was initially rehab or SNF, it appears he will probably realistically be able to go home Subjective Patient doing well this AM. Slept better with PM dose of gabapentin. No complaints. Swelling improving. Review of Systems Review of Systems: As per above Physical Exam Physical Exam: Constitutional: well-appearing, no acute distress HEENT: NCAT, no conjunctival injection CV: RRR 3/6 crescendo/decrescendo systolic murmur, no rubs or gallops extremities well-perfused, 1 + BLE edema Resp: CTAB no wheezing, no increased work of breathing MSK: no gross deformities appreciated Skin: wrapped LLE, no strikethrough. Warm, dry, no rash appreciated Neuro: alert, oriented, no focal neurologic deficit appreciated Results & Data Results & Data Vital Signs (Past 12 Hours) Vital Signs Temp Pulse Pulse Resp BP BP Pulse Ox 10/23/22 03:15 36.5 C 62 18 132/72 95 10/23/22 00:41 68 10/22/22 23:18 36.6 C 71 18 128/61 96 O2 Del Method 10/23/22 03:15 Room Air 10/23/22 00:41 10/22/22 23:18 Room Air Laboratory Results 10/23/22 05:29 10/23/22 05:29 Resident Activity Tracking Resident Involvement: Resident Care Provided Care Provided: Adult Hospital Medicine (4) Prostatitis Prostatitis type: acute Qualified Code(s): N41.0 - Acute prostatitis (8) Hypothyroidism Hypothyroidism type: unspecified Qualified Code(s): E03.9 - Hypothyroidism, unspecified (9) Hypertension Hypertension type: essential hypertension Qualified Code(s): I10 - Essential (primary) hypertension (11) CHF (congestive heart failure) Heart failure chronicity: unspecified Heart failure type: unspecified Qualified Code(s): I50.9 - Heart failure, unspecified (12) GERD (gastroesophageal reflux disease) Esophagitis presence: esophagitis presence not specified Qualified Code(s): K21.9 - Gastro-esophageal reflux disease without esophagitis (13) Diabetes Diabetes mellitus complication status: with hyperglycemia Diabetes mellitus rodent exterminator insulin use: with jail use Diabetes mellitus type: type 2 Qualified Code(s): E11.65 - Type 2 diabetes mellitus with hyperglycemia; Z79.4 - care home (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
[2022-10-23] MEDS: BUMETANIDE 2 MG in SYRINGE 0 ML IV SCH ×2 (07:50→17:20)
[2022-10-23] MEDS: APIXABAN 2.5 MG TAB PO SCH ×2 (08:05→20:40)
[2022-10-23] MEDS: ASPIRIN 81 MG ECTAB PO SCH (08:06)
[2022-10-23] MEDS: METOPROLOL TARTRATE 25 MG TAB PO SCH ×2 (08:08→20:40)
[2022-10-23] MEDS: GABAPENTIN 100 MG CAP PO SCH ×2 (08:08→20:39)
[2022-10-23] MEDS: CEROVITE ADV FORMULA TAB PO SCH (08:09)
[2022-10-23] MEDS: PANTOprazole 40 MG TAB PO SCH ×2 (08:10→20:38)
[2022-10-23] MEDS: predniSONE 20 MG TAB PO SCH (08:10)
[2022-10-23] MEDS: clonazePAM 1 MG TAB PO SCH ×2 (08:51→20:38)
[2022-10-23] MEDS: INSULIN ASPART PER UNIT CHARGE SC SCH ×4 (08:52→20:52)
[2022-10-23] MEDS: LANTUS PER UNIT CHARGE SQ SCH (08:53)
[2022-10-23] MEDS: SEVELAMER HCL 800 MG TABLET PO SCH ×3 (08:58→17:20)
[2022-10-23] MEDS: FLUTICASONE/VILANTEROL 200/25MCG 14 PUFFS/INHALER INH SCH (08:59)
--- NOTE | 2022-10-23 10:55 | Nephrology Progress Note ---
Date of Service October 23, 2022 Assessment & Plan (1) Acute kidney injury superimposed on CKD: Plan: * JUDI likely due to AIN (cipro, cephalexin). Peak Cr 8.4 (10/11/22). Solumedrol 1g IV daily x 3d provided. Prednisone 60 mg daily started 10/13/22. Kidney function is now back to baseline and has remained stable at Cr 2.0 off HD. Will continue Prednisone 20 mg daily for another 1-2 days and continue to wean off over the next week * R IJ TCC placed by Dr. Ramirez 10/12/22. 1st HD completed 10/13. Last HD 10/19/22. No acute indication for HD today. Will hold HD and monitor PRP, UO and volume status. If stable over weekend, plan to have IJ TCC removed early next week * Continue diuretic therapy to promote diuresis, consider converting IV Bumex to PO * Continue to hold ARB therapy and SGLT2i (2) Chronic kidney disease, stage III (moderate): Plan: * Baseline Cr 2-2.3. Primary Bi Data Architect is Dr. Dixon (3) UTI (urinary tract infection): Plan: * Prior culture +proteus vulgaris. Completed course of treatment. Avoid cephalosporins and fluoroquinolones for now (4) Urethral stricture: Plan: * Followed by Dr. Gunter as an outpatient * Maintain Lopez to gravity pending urology follow up * CT reviewed. No obvious obstructive nephropathy Admission and Anticipated Discharge Date Admission Date: October 08, 2022 Subjective No acute events overnight. Improved quality of sleep. Overall feels well. Edema continues to improve. Excellent urine output. updated by phone. Review of Systems Review of Systems: All systems reviewed & are unremarkable except as noted in HPI & below Physical Exam Constitutional: well developed and + frail appearing; no acute distress Eyes: no scleral abnormality and no corneal abnormality ENMT: Mouth: no oral mucosal abnormality and oral mucous membranes not dry Neck: normal visual inspection and trachea midline Respiratory: normal respiratory effort and + tachypneic Auscultation: lungs clear to auscultation bilaterally and + wheezes Cardiovascular: Rate/Rhythm: regular rate Heart Sounds: normal S1 and normal S2 Extremities: + edema and + varicosities Musculoskeletal: Extremities: no cyanosis and no clubbing Skin: normal turgor, + turgor decreased and + ecchymosis; no lesions and no jaundice Neurologic: Motor/Sensory: no tremor and no asterixis Psychiatric: Orientation: alert and oriented x 3 Results & Data Vital Signs (Past 12 Hours) Vital Signs Temp Pulse Pulse Resp BP BP Pulse Ox 10/23/22 07:33 36.6 C 60 18 160/72 H 97 10/23/22 03:15 36.5 C 62 18 132/72 95 10/23/22 00:41 68 10/22/22 23:18 36.6 C 71 18 128/61 96 O2 Del Method 10/23/22 07:33 Room Air 10/23/22 03:15 Room Air 10/23/22 00:41 10/22/22 23:18 Room Air Laboratory Results Laboratory Results - last 24 hr 10/22/22 10/22/22 10/22/22 11:37 16:21 20:39 WBC RBC Hgb Hct MCV MCH MCHC RDW Std Deviation RDW Coeff of Adrian Plt Count MPV Sodium Potassium Chloride Carbon Dioxide Anion Gap BUN Creatinine Est Cr Clr Drug Dosing Est GFR ( Amer) Est GFR (Non-Af Amer) BUN/Creatinine Ratio Glucose POC Glucose 267 H 121 H 320 H* Calcium 10/22/22 10/23/22 10/23/22 20:41 01:26 05:29 WBC 11.20 H RBC 3.21 L Hgb 10.0 L Hct 29.3 L MCV 91.3 MCH 31.2 MCHC 34.1 RDW Std Deviation 44.6 RDW Coeff of Adrian 13.3 Plt Count 141 MPV 9.2 L Sodium Potassium Chloride Carbon Dioxide Anion Gap BUN Creatinine Est Cr Clr Drug Dosing Est GFR ( Amer) Est GFR (Non-Af Amer) BUN/Creatinine Ratio Glucose POC Glucose 356 H* 185 H Calcium 10/23/22 10/23/22 05:29 07:40 WBC RBC Hgb Hct MCV MCH MCHC RDW Std Deviation RDW Coeff of Adrian Plt Count MPV Sodium 140 Potassium 3.9 Chloride 109 H Carbon Dioxide 27 Anion Gap 4 BUN 65 H Creatinine 2.00 H Est Cr Clr Drug Dosing 29.6 Est GFR ( Amer) 34.0 Est GFR (Non-Af Amer) 29.3 BUN/Creatinine Ratio 32.5 H Glucose 139 H POC Glucose 144 H Calcium 7.6 L PG Care Time/CCT Total # of Minutes Spent Total Time Spent with Patient: Total time spent is greater than 50% in coordination of care (as documented) at patient's floor/unit and/or counseling patient: Coding Level of Care Code 65631 SUB INP/OBS CARE 3/50MIN Diagnoses Acute kidney injury superimposed on CKD N17.9; N18.9 Chronic kidney disease, stage III (moderate) N18.30 UTI (urinary tract infection) N39.0 Urethral stricture N35.919
[2022-10-23] MEDS: UMECLIDINIUM BROMIDE 62.5MCG/BLISTER 7 PUFFS/INHALER INH SCH (12:10)
[2022-10-23] MEDS: LOSARTAN POTASSIUM 25 MG TAB PO SCH (12:12)
--- NOTE | 2022-10-23 15:58 | Billing Data ---
Date of Service October 23, 2022 Coding Level of Care Code 78487 SUB INP/OBS CARE
[2022-10-23] MEDS: TAMSULOSIN HCL 0.4 MG CAP PO SCH (20:39)
[2022-10-23] MEDS: ROSUVASTATIN CALCIUM 20 MG TAB PO SCH (20:39)
[2022-10-23] MEDS: FINASTERIDE 5 MG TAB PO SCH (20:40)
[2022-10-24] MEDS: LEVOTHYROXINE SODIUM 88 MCG TABLET PO SCH (05:33)
[2022-10-24 06:15] LABS: Hematocrit (blood only) 29.1 % (42.0-52.0); Mean Corpuscular Hemoglobin 31.4 pg (25.0-34.0); Mean Corpuscular Hgb Conc 34.4 g/dL (32.0-36.0); Mean Corpuscular Volume 91.5 fL (80.0-100.0); Mean Platelet Volume 9.3 fL (9.4-12.4); Platelet Count 144 K/uL (130-400); RDW Coefficient of Variation 13.4 % (11.5-14.5); RDW Standard Deviation 45.7 fL (36.4-46.3); Red Blood Count 3.18 M/uL (4.70-6.10); White Blood Count 9.72 K/ul (4.8-10.8)
[2022-10-24 06:26] LABS: BUN Creatinine Ratio 30.9 (10-20); Calcium 7.5 mg/dl (8.6-10.3); Creatinine Clr Calc Pharmacy 28.2 ml/min; Est GFR (African American) 32.6 ml/min; Est GFR (Non-African American) 28.2 ml/min; Potassium 3.6 mmol/L (3.5-5.1)
--- NOTE | 2022-10-24 07:01 | Hospitalist Progress Note ---
Date of Service October 24, 2022 Assessment & Plan (1) Fluid overload: Plan: Aj is a 86 year-old male with PMHx of HFpEF 60-65%, DM2, asthma, COPD, CAD with previous SD, DVT, hypothyroidism, CKD, HTN, HLD, chronic leg wound, GERD here for increased swelling in face, extremities, and found to have JUDI on CKD now with stable creatinine and improving fluid status. JUDI on CKD Concern for ATN vs AIN with component of post-renal obstructive as patient recently treated with cipro for presumed prostatitis. CT A&P showed no evidence of hydronephrosis. Chronic appearing bladder wall thickening is likely due to chronic outlet obstruction. Cr 6.19 with K of 6.1 on admission. Patient was trialed on dialysis and responded will. Cr downtrending. Baseline ~ 2.0. Holding dialysis to assure stabilization of Cr without further intervention. -Urology on board - rec Olpez for at least 1 week, f/u outpatient for voiding trial -Nephrology consulted - appreciate recs -Vascular surgery consulted for potential removal of dialysis catheter tomor row if kidney function remains stable -Stricts Is & Os -Bumex BID -> switched to PO today -Daily BMP. Cr at baseline now. -Will taper pred to 10mg today, continue to taper over the next week Hyperglycemia in the setting of DM2 Patient on empagliflozin, glipizide, and insulin at home. Was hyperglycemic earlier during this admission, more recently has had episodes of hypoglycemia. Glycemic consult, appreciate recommendations. -SSI -Glycemic consult - appreciate recs -HbA1c 11.5 Leukocytosis - resolved Like in the setting of high dose steroid use. Has since resolved. Hyperkalemia - resolved with dialysis K 6.1 on admit in the setting of JUDI on CKD. Resolved with dialysis. No stable without intervention. -K of 3.6 today Prostatitis Patient was started on ciprofloxacin outpatient for presumed prostatitis. This was d/c in the setting of JUDI on CKD with Cr of 6. Urine cx grew proteus vu lgaris, repeat baylee glabrata no need to treat. ID consulted discussed likely not prostatitis thus no need for further abx. cipro was stopped given renal function Reactive Airway Disease Continue home inhalers HTN, CAD - SD On losartan, metoprolol, and ASA at home. Held losartan in setting of JUDI on CKD BPH On tamsulosin and finasteride at home. Increased tamsulosin to 0.8mg HLD Continue rosuvastatin, dose reduced to 10mg daily initially. Resume home dosing 20 mg QHS. GERD Continue protonix Anxiety Patient on clonazepam and gabapentin 100 mg QAM and 300 mg QHS. PM dose initially held in the setting of CrCl < 15. Will resume PM dosing Hypothyroidism Continue levothyroxine FENGI: heart healthy DM2 fluid restriction 1.5L Consults: Urology Nephrology Code Status: DNR/DNI is POA DVT PPX: Eliquis Dispo: MedSurg Tele, rehab vs home with home health - CM following (2) Acute kidney injury superimposed on CKD: (3) DVT (deep venous thrombosis): (4) Prostatitis: (5) Acute hyperkalemia: (6) Abdominal distension: (7) Benign prostatic hyperplasia with urinary obstruction: (8) Hypothyroidism: (9) Hypertension: (10) Dyslipidemia: (11) CHF (congestive heart failure): (12) GERD (gastroesophageal reflux disease): (13) Diabetes: Admission and Anticipated Discharge Date Admission Date: October 08, 2022 Supervising Physician Co-Signing Physician Notes ATTESTATION I also saw the patient and confirmed aguayo portions of the history and exam. I agree with the impression and plan in the resident documentation, and as summarized below. Upon our examination, patient is seated in bedside chair. He has no complaints. EXAM 100/62, 70, 18, 36.6, 95% on room air Pleasant alert. No distress appreciated. Heart regular Lungs clear with nonlabored respirations DATA Labs White blood cell count 9.72, hemoglobin 10 Sodium 139, potassium 3.6, BUN 64, creatinine 2.07 IMPRESSION & PLAN JUDI on CKD-IV in the setting of chronic HFpEF Resolved, at baseline Vascular to reevaluate for removal of temporary catheter Prolonged prednisone taper Appreciate nephrology consultation Diabetes with hyperglycemia He is a brittle diabetic with difficult control as an outpatient, with frequent episodes of hypoglycemia and poor hypoglycemic awareness Appreciate glycemic consult and pharmacy input Additional per resident documentation Tracy Rocha is a 86 year-old male with PMHx of HFpEF 60-65%, DM2, asthma, COPD, CAD with previous SD, DVT, hypothyroidism, CKD, HTN, HLD, chronic leg wound, GERD here for increased swelling in face, extremities, and found to have JUDI on CKD now with stable creatinine and improving fluid status. 10/24: Patient was seen and examined at bedside. No acute events overnight. Patient was alert and interactive during encounter. He states he was able to walk "5 laps" around the unit yesterday. He notes that he is going to use a walker instead of a cane now. Has been eating and drinking without issue. Denies chest pain, shortness of breath, nausea/vomiting. Review of Systems Review of Systems: As per above Physical Exam Constitutional: WD/WN, vitals as above Eyes: Anicteric sclera ENMT: External ears and nose normal. Moist mucous membranes. Respiratory: normal respiratory effort, lungs clear to auscultation Cardiovascular: Rate/Rhythm: regular rate and regular rhythm Heart Sounds: + murmur Extremities: + edema Gastrointestinal (Abdomen): normal bowel sounds, soft, nontender, no hepatosplenomegaly Musculoskeletal: Moves all limbs independently. Skin: Few ecchymotic regions on upper extremities. Skin is warm, dry, no rashes. Psychiatric: A+Ox3, euthymic affect Genitourinary: Lopez catheter in place. Results & Data Results & Data Vital Signs (Past 12 Hours) Vital Signs Temp Pulse Pulse Resp BP Pulse Ox O2 Del Method 10/24/22 03:07 65 18 108/60 94 Room Air 10/23/22 23:24 36.5 C 77 18 119/63 98 Room Air 10/23/22 21:01 71 10/23/22 21:57 Room Air 10/23/22 20:16 36.5 C 72 18 126/69 98 Room Air Resident Activity Tracking Resident Involvement: Resident Care Provided Care Provided: Adult Hospital Medicine (4) Prostatitis Prostatitis type: acute Qualified Code(s): N41.0 - Acute prostatitis (8) Hypothyroidism Hypothyroidism type: unspecified Qualified Code(s): E03.9 - Hypothyroidism, unspecified (9) Hypertension Hypertension type: essential hypertension Qualified Code(s): I10 - Essential (primary) hypertension (11) CHF (congestive heart failure) Heart failure chronicity: unspecified Heart failure type: unspecified Qualified Code(s): I50.9 - Heart failure, unspecified (12) GERD (gastroesophageal reflux disease) Esophagitis presence: esophagitis presence not specified Qualified Code(s): K21.9 - Gastro-esophageal reflux disease without esophagitis (13) Diabetes Diabetes mellitus complication status: with hyperglycemia Diabetes mellitus longterm insulin use: with longterm use Diabetes mellitus type: type 2 Qualified Code(s): E11.65 - Type 2 diabetes mellitus with hyperglycemia; Z79.4 - FPC (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
[2022-10-24] MEDS: INSULIN ASPART PER UNIT CHARGE SC SCH ×4 (08:27→21:07)
[2022-10-24] MEDS: PANTOprazole 40 MG TAB PO SCH ×2 (08:28→21:11)
[2022-10-24] MEDS: clonazePAM 1 MG TAB PO SCH ×2 (08:28→21:08)
[2022-10-24] MEDS: predniSONE 20 MG TAB PO SCH (08:28)
[2022-10-24] MEDS: APIXABAN 2.5 MG TAB PO SCH ×2 (08:28→21:09)
[2022-10-24] MEDS: LANTUS PER UNIT CHARGE SQ SCH (08:28)
[2022-10-24] MEDS: METOPROLOL TARTRATE 25 MG TAB PO SCH ×2 (08:28→21:09)
[2022-10-24] MEDS: BUMETANIDE 2 MG in SYRINGE 0 ML IV SCH (08:28)
[2022-10-24] MEDS: CEROVITE ADV FORMULA TAB PO SCH (08:29)
[2022-10-24] MEDS: LOSARTAN POTASSIUM 25 MG TAB PO SCH (08:29)
[2022-10-24] MEDS: ASPIRIN 81 MG ECTAB PO SCH (08:29)
[2022-10-24] MEDS: SEVELAMER HCL 800 MG TABLET PO SCH ×3 (08:29→17:03)
[2022-10-24] MEDS: GABAPENTIN 100 MG CAP PO SCH ×2 (08:29→21:11)
[2022-10-24] MEDS: UMECLIDINIUM BROMIDE 62.5MCG/BLISTER 7 PUFFS/INHALER INH SCH (08:30)
[2022-10-24] MEDS: FLUTICASONE/VILANTEROL 200/25MCG 14 PUFFS/INHALER INH SCH (08:30)
--- NOTE | 2022-10-24 11:19 | Nephrology Progress Note ---
Date of Service October 24, 2022 Assessment & Plan (1) Acute kidney injury superimposed on CKD: Plan: * JUDI likely due to AIN (cipro, cephalexin). Peak Cr 8.4 (10/11/22). Solumedrol 1g IV daily x 3d provided. Prednisone 60 mg daily started 10/13/22. Kidney function is now back to baseline and has remained stable at Cr 2.0 off HD. Will decrease Prednisone to 10 mg daily tomorrow and wean off over the next week. * R IJ TCC placed by Dr. Ramirez 10/12/22. 1st HD completed 10/13. Last HD 10/19/22. No acute indication for HD today. Kidney function has recovered. Dr. Ramirez has been consulted for dialysis catheter removal tomorrow pending stable kidney function. * Continue diuretic therapy. Bumex switched from 2 mg IV BID to PO today. * Losartan restarted yesterday. * Continue to hold SGLT2i. (2) Chronic kidney disease, stage III (moderate): Plan: * Baseline Cr 2-2.3. Primary Industrial Trainer is Dr. Dixon (3) UTI (urinary tract infection): Plan: * Prior culture +proteus vulgaris. Completed course of treatment. Avoid cephalosporins and fluoroquinolones for now (4) Urethral stricture: Plan: * Followed by Dr. Gunter as an outpatient * Maintain Lopez to gravity pending urology follow up * CT reviewed. No obvious obstructive nephropathy Admission and Anticipated Discharge Date Admission Date: October 08, 2022 Subjective No acute events overnight. No complaints this AM. Rocha feels well. Appetite is good. He reports continued improvement in edema. He is breathing comfortably. Activity tolerance continues to improve. Review of Systems Review of Systems: All systems reviewed & are unremarkable except as noted in HPI & below Physical Exam Constitutional: well developed; no acute distress Eyes: no scleral abnormality and no corneal abnormality ENMT: Mouth: no oral mucosal abnormality and oral mucous membranes not dry Neck: normal visual inspection and trachea midline Respiratory: normal respiratory effort Auscultation: lungs clear to auscultation bilaterally Cardiovascular: Rate/Rhythm: regular rate Heart Sounds: normal S1 and normal S2 Extremities: + edema and + varicosities Musculoskeletal: Extremities: no cyanosis and no clubbing Skin: + turgor decreased; no jaundice Neurologic: Motor/Sensory: no tremor and no asterixis Psychiatric: Orientation: alert and oriented x 3 Results & Data Vital Signs (Past 12 Hours) Vital Signs Temp Pulse Pulse Resp BP Pulse Ox O2 Del Method 10/24/22 08:00 66 10/24/22 08:03 36.5 C 65 18 159/69 H 96 Room Air 10/24/22 03:07 65 18 108/60 94 Room Air 10/23/22 23:24 36.5 C 77 18 119/63 98 Room Air Laboratory Results Laboratory Results - last 24 hr 10/23/22 10/23/22 10/23/22 11:26 16:29 20:44 WBC RBC Hgb Hct MCV MCH MCHC RDW Std Deviation RDW Coeff of Adrian Plt Count MPV Sodium Potassium Chloride Carbon Dioxide Anion Gap BUN Creatinine Est Cr Clr Drug Dosing Est GFR ( Amer) Est GFR (Non-Af Amer) BUN/Creatinine Ratio Glucose POC Glucose 180 H 187 H 232 H Calcium 10/24/22 10/24/22 10/24/22 05:25 05:25 07:55 WBC 9.72 RBC 3.18 L Hgb 10.0 L Hct 29.1 L MCV 91.5 MCH 31.4 MCHC 34.4 RDW Std Deviation 45.7 RDW Coeff of Adrian 13.4 Plt Count 144 MPV 9.3 L Sodium 139 Potassium 3.6 Chloride 108 H Carbon Dioxide 25 Anion Gap 6 BUN 64 H Creatinine 2.07 H Est Cr Clr Drug Dosing 28.2 Est GFR ( Amer) 32.6 Est GFR (Non-Af Amer) 28.2 BUN/Creatinine Ratio 30.9 H Glucose 212 H POC Glucose 240 H Calcium 7.5 L PG Care Time/CCT Total # of Minutes Spent Total Time Spent with Patient: Total time spent is greater than 50% in coordination of care (as documented) at patient's floor/unit and/or counseling patient: Coding Level of Care Code 18338 SUB INP/OBS CARE 3/50MIN Diagnoses Acute kidney injury superimposed on CKD N17.9; N18.9 Chronic kidney disease, stage III (moderate) N18.30 UTI (urinary tract infection) N39.0 Urethral stricture N35.919
[2022-10-24] MEDS: BUMETANIDE 1 MG TAB PO SCH (17:03)
[2022-10-24] MEDS: TAMSULOSIN HCL 0.4 MG CAP PO SCH (21:09)
[2022-10-24] MEDS: ROSUVASTATIN CALCIUM 20 MG TAB PO SCH (21:10)
[2022-10-24] MEDS: FINASTERIDE 5 MG TAB PO SCH (21:10)
[2022-10-25] MEDS: LEVOTHYROXINE SODIUM 88 MCG TABLET PO SCH (05:19)
--- NOTE | 2022-10-25 07:25 | Hospitalist Progress Note ---
Date of Service October 25, 2022 Assessment & Plan (1) Fluid overload: Plan: Aj is a 86 year-old male with PMHx of HFpEF 60-65%, DM2, asthma, COPD, CAD with previous LA, DVT, hypothyroidism, CKD, HTN, HLD, chronic leg wound, GERD here for increased swelling in face, extremities, and found to have JUDI on CKD now with stable creatinine and improving fluid status. JUDI on CKD Hyperkalemia on admission Concern for ATN vs AIN with component of post-renal obstructive as patient recently treated with cipro for presumed prostatitis. CT A&P showed no evidence of hydronephrosis. Chronic appearing bladder wall thickening is likely due to chronic outlet obstruction. Cr 6.19 with K of 6.1 on admission. Patient was trialed on dialysis and responded will. Cr downtrending. Baseline ~ 2.0. Holding dialysis to assure stabilization of Cr without further intervention. -Urology on board - rec Lopez for at least 1 week, f/u outpatient for voiding trial -Nephrology consulted - appreciate recs -Vascular surgery removed dialysis catheter this afternoon- patient tolerated well -Stricts Is & Os -Bumex BID -K normalized -Daily BMP. Cr at baseline now. -Will continue prednisone 10mg x3days, 5mg x3days to taper off steroid Hyperglycemia in the setting of DM2 Patient on empagliflozin, glipizide, and insulin at home. Was hyperglycemic earlier during this admission, more recently has had episodes of hypoglycemia. Glycemic consult, appreciate recommendations. -SSI -Glycemic consult - appreciate recs -HbA1c 11.5 Prostatitis Patient was started on ciprofloxacin outpatient for presumed prostatitis. This was d/c in the setting of JUDI on CKD with Cr of 6. Urine cx grew proteus vulgaris, repeat baylee glabrata no need to treat. ID consulted discussed likely not prostatitis thus no need for further abx. cipro was stopped given renal function HTN, CAD - LA On losartan, metoprolol, and ASA at home. Held losartan in setting of JUDI on CKD BPH On tamsulosin and finasteride at home. Increased tamsulosin to 0.8mg HLD Continue rosuvastatin, dose reduced to 10mg daily initially. Resume home dosing 20 mg QHS. Anxiety Patient on clonazepam and gabapentin 100 mg QAM and 300 mg QHS. PM dose initially held in the setting of CrCl < 15. Will resume PM dosing FENGI: heart healthy DM2 fluid restriction 1.5L Consults: Urology Nephrology Code Status: DNR/DNI is POA DVT PPX: Eliquis Dispo: [facility], anticipate d/c home tomorrow (2) Acute kidney injury superimposed on CKD: (3) DVT (deep venous thrombosis): (4) Prostatitis: (5) Acute hyperkalemia: (6) Abdominal distension: (7) Benign prostatic hyperplasia with urinary obstruction: (8) Hypothyroidism: (9) Hypertension: (10) Dyslipidemia: (11) CHF (congestive heart failure): (12) GERD (gastroesophageal reflux disease): (13) Diabetes: Admission and Anticipated Discharge Date Admission Date: October 08, 2022 Supervising Physician Co-Signing Physician Notes Resident Physician Supervision Note: I independently interviewed and examined the patient and verified the aguayo history and physical, reviewed labs and image studies and agree with resident findings and care plan. Tracy Rocha is a 86 year-old male with PMHx of HFpEF 60-65%, DM2, asthma, COPD, CAD with previous LA, DVT, hypothyroidism, CKD, HTN, HLD, chronic leg wound, GERD here for increased swelling in face, extremities, and found to have JUDI on CKD now with stable creatinine and improving fluid status. 10/25: Patient seen and examined at bedside. No acute events overnight. Patient states that he is feeling well today, is eager to go home. Eating and drinking without issue. Denies shortness of breath or chest pain. Lopez catheter in place. Review of Systems Review of Systems: As per above Physical Exam Constitutional: WD/WN, vitals as above Eyes: Anicteric sclera ENMT: External ears and nose normal. Moist mucous membranes. Respiratory: normal respiratory effort, lungs clear to auscultation Cardiovascular: Rate/Rhythm: regular rate and regular rhythm Heart Sounds: + murmur Extremities: + edema Gastrointestinal (Abdomen): normal bowel sounds, soft, nontender, no hepatosplenomegaly Skin: Bandage at left lower extremity Neurologic: moves all extremities and awake Psychiatric: A+Ox3, euthymic affect Results & Data Results & Data Vital Signs (Past 12 Hours) Vital Signs Temp Pulse Pulse Resp BP Pulse Ox O2 Del Method 10/25/22 07:00 36.4 C L 61 20 154/71 H 97 Room Air 10/25/22 04:00 36.5 C 66 18 125/65 98 Room Air 10/24/22 23:10 36.5 C 74 18 155/61 H 97 Room Air 10/24/22 21:59 84 10/24/22 21:25 Room Air Resident Activity Tracking Resident Involvement: Resident Care Provided Care Provided: Adult Hospital Medicine (4) Prostatitis Prostatitis type: acute Qualified Code(s): N41.0 - Acute prostatitis (8) Hypothyroidism Hypothyroidism type: unspecified Qualified Code(s): E03.9 - Hypothyroidism, unspecified (9) Hypertension Hypertension type: essential hypertension Qualified Code(s): I10 - Essential (primary) hypertension (11) CHF (congestive heart failure) Heart failure chronicity: unspecified Heart failure type: unspecified Qualified Code(s): I50.9 - Heart failure, unspecified (12) GERD (gastroesophageal reflux disease) Esophagitis presence: esophagitis presence not specified Qualified Code(s): K21.9 - Gastro-esophageal reflux disease without esophagitis (13) Diabetes Diabetes mellitus complication status: with hyperglycemia Diabetes mellitus computer terminal operator insulin use: with chcf use Diabetes mellitus type: type 2 Qualified Code(s): E11.65 - Type 2 diabetes mellitus with hyperglycemia; Z79.4 - marine oil terminal superintendent (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
[2022-10-25] MEDS: clonazePAM 1 MG TAB PO SCH ×2 (08:13→20:49)
[2022-10-25] MEDS: INSULIN ASPART PER UNIT CHARGE SC SCH ×4 (08:13→21:04)
[2022-10-25] MEDS: UMECLIDINIUM BROMIDE 62.5MCG/BLISTER 7 PUFFS/INHALER INH SCH (08:14)
[2022-10-25] MEDS: SEVELAMER HCL 800 MG TABLET PO SCH ×3 (08:14→17:06)
[2022-10-25] MEDS: FLUTICASONE/VILANTEROL 200/25MCG 14 PUFFS/INHALER INH SCH (08:14)
[2022-10-25] MEDS: CEROVITE ADV FORMULA TAB PO SCH (08:14)
[2022-10-25] MEDS: PANTOprazole 40 MG TAB PO SCH ×2 (08:14→20:51)
[2022-10-25] MEDS: predniSONE 20 MG TAB PO SCH (08:14)
[2022-10-25] MEDS: LOSARTAN POTASSIUM 25 MG TAB PO SCH (08:15)
[2022-10-25] MEDS: APIXABAN 2.5 MG TAB PO SCH ×2 (08:15→20:50)
[2022-10-25] MEDS: METOPROLOL TARTRATE 25 MG TAB PO SCH ×2 (08:15→20:50)
[2022-10-25] MEDS: BUMETANIDE 1 MG TAB PO SCH ×2 (08:15→17:05)
[2022-10-25] MEDS: ASPIRIN 81 MG ECTAB PO SCH (08:15)
[2022-10-25 08:16] LABS: Hematocrit (blood only) 29.6 % (42.0-52.0); Hemoglobin 10.3 g/dl (14.0-18.0); Mean Corpuscular Hemoglobin 31.4 pg (25.0-34.0); Mean Corpuscular Hgb Conc 34.8 g/dL (32.0-36.0); Mean Corpuscular Volume 90.2 fL (80.0-100.0); Mean Platelet Volume 9.5 fL (9.4-12.4); Platelet Count 140 K/uL (130-400); RDW Coefficient of Variation 13.2 % (11.5-14.5); RDW Standard Deviation 44.2 fL (36.4-46.3); Red Blood Count 3.28 M/uL (4.70-6.10); White Blood Count 10.51 K/ul (4.8-10.8)
[2022-10-25] MEDS: GABAPENTIN 100 MG CAP PO SCH ×2 (08:16→20:49)
[2022-10-25] MEDS ORDERED: LANTUS PER UNIT CHARGE SQ SCH (09:00)
[2022-10-25 09:10] LABS: BUN Creatinine Ratio 32.1 (10-20); Calcium 7.7 mg/dl (8.6-10.3); Creatinine Clr Calc Pharmacy 29.6 ml/min; Est GFR (African American) 34.9 ml/min; Est GFR (Non-African American) 30.1 ml/min; Potassium 3.7 mmol/L (3.5-5.1)
--- NOTE | 2022-10-25 10:31 | Pharmacy Report ---
Pharmacy Glycemic Short Note 2 - Date of Service October 25, 2022 - Glycemic Short BSG Results (Last 24 hours): 10/24/22 10/24/22 10/24/22 11:30 16:36 20:39 Glucose POC Glucose 142 H 147 H 342 H* 10/24/22 10/25/22 10/25/22 20:40 06:37 07:17 Glucose 219 H POC Glucose 316 H* 229 H OUTPATIENT ANTIDIABETIC REGIMEN: * Lantus 52 units SC qAM, 50 units SC qPM * Glipizide 10 mg PO BID * Empagliflozin 10 mg PO daily HbA1c: 9.7% (12/14/21) ASSESSMENT: 10/25/22 * BSGs remain labile w/ intermittent hyperglycemia (high of 316 mg/dL yesterday at HS) * Fasting BSG remains elevated - 229 mg/dL this morning (will increase basal insulin today) * Remains on prednisone 20 mg PO daily -> to be reduced to 10 mg daily tomorrow 10/21/22 * Aj received 55 units of SQ insulin yesterday with decent glycemic control: * BSGs: 170, 223, 119, 177 * 25 units Lantus + 30 units Novolog * Fasting BSG of 92 mg/dL. This is a significant reduction compared to fasting of 170 mg/dL yesterday. Lantus dose has already been reduced for today. * Prednisone dose decreased to 30 mg today and ordered for 20 mg tomorrow. Novolog correction factor and carb ratio will be loosened. 10/20/22 * Aj received 61 units of SQ insulin yesterday with variable glycemic control: * BSGs: 293, 120, 88, 122 * 25 units Lantus + 36 units Novolog * Patient received dialysis * Fasting BSG of 170 mg/dL. Will continue current Lantus dose for today although I anticipate he may need dose reduction with repeat dosing and decrease in prednisone dose. Will change to dose per scale starting tomorrow. * Novolog carb ratio was loosened yesterday evening. Would anticipate needing further loosening today secondary to decrease in prednisone dose, however lunch BSG was 223 mg/dL, therefore will keep for now. 10/19/22 * BSGs yesterday were [phone] mg/dL. Patient received 21 units of Novolog. * Fasting today was 293 mg/dL. * Will resume basal insulin at 25 units. Initially had considered 15 units of Lantus but with such a change in fasting (111 --> 293), it is evident that patient requires more than 15 units of Lantus. * Patient continues prednisone 60 mg daily. He received dialysis today. Lunch BSG was 120 mg/dL. * Tightened Novolog back to previous parameters See previous notes for additional background PLAN FOR INPATIENT GLYCEMIC CONTROL: * Hold outpatient oral diabetes medications * Basal insulin * Lantus 25 units SC X 1 today * Reassess tomorrow with steroid reduction * Bolus insulin * NovoLog per scale ACHS or Q6hrs while NPO * Goal Range: Low 110 mg/dL - High 140 mg/dL * Correction Factor: 20 mg/dL/unit * Nutritional / Prandial insulin per carb ratio of 1 unit per 6 grams CHO consumed
--- NOTE | 2022-10-25 11:17 | History & Physical Bridge Note ---
Date of Service October 25, 2022 History & Physical Bridge Note Patient's renal function has returned to a point where he does not need dialysis any longer. Removal of PermCath is recommended. I have discussed the risks options and benefits of the procedure with the patient. The patient understands the risks options and benefits and agrees to the procedure. I have examined the patient, reviewed the History & Physical and in the interval since the performance of the History & Physical I have noted the following changes of clinical significance: no changes noted
[2022-10-25] MEDS ORDERED: LIDOCAINE 1% LOCAL 20 ML VIAL ONE (12:16)
[2022-10-25] MEDS ORDERED: ARISTA ABSORBABLE HEMOSTAT 3GM TOP ONE (12:23)
--- NOTE | 2022-10-25 12:28 | Operative Report ---
Post Operative Report Pre & Post Diagnosis Operation Date: 10/25/22 10:40 Pre-Op Diagnosis: Functioning Kidneys Post-Op Diagnosis: Functioning Kidneys I identified the patient and participated in the time-out.: Yes Procedure Operation Date: 10/25/22 10:40 Actual Procedures p Removal of Perm Catheter(Right) - Bryson Ramirez MD Surgeon Bryson Ramirez MD Director Of Claims none Estimated Blood Loss 0 Findings Consistent with Post-Op Diagnosis Specimens none Anesthesia Type Local Complications none Disposition Accompanied Patient To Recovery: No Disposition: Recovery Room Indications This is an 86-year-old gentleman who had a PermCath placed 2 weeks prior to this for hemodialysis. He has now had recovery of his kidney function. Removal of the catheter was recommended. I have discussed the risks options and benefits of the procedure with the patient. The patient understands the risks options and benefits and agrees to the procedure. Description of Procedure The patient was taken to the angio suite and placed in the supine position. The patient was identified and a timeout performed. The right side of the neck, chest wall and catheter were prepped and draped in a sterile manner. Local anesthesia was then accomplished. Using sharp and blunt dissection, the cuff of the permcath was freed up from the surrounding fibrous tissue. The permcath and cuff were completely removed. Pressure was then applied and adequate hemostasis was obtained. A sterile dressing was then applied. The patient left the operation room in satisfactory condition and tolerated the procedure well. All needle and sponge counts were correct at the end of the procedure. I attest to the content of the Intraoperative Record and any orders documented therein. Any exceptions are noted below.
--- NOTE | 2022-10-25 12:53 | Nephrology Progress Note ---
Date of Service October 25, 2022 Assessment & Plan (1) Acute kidney injury superimposed on CKD: (2) Acute hyponatremia: (3) Acute hyperkalemia: Plan 86-year-old gentleman with stage IIIB CKD baseline creatinine around 2-2.2, admitted with acute kidney injury thought to be secondary to acute interstitial nephritis with cephalexin and ciprofloxacin, requiring dialysis via tunneled catheter. Had several dialysis treatment but has been off of dialysis since last week and kidney function started to improve on prednisone. Prednisone now down to 10 mg daily. Plan for tunneled dialysis catheter removal today. --Decrease prednisone to 5 mg daily, continue for 3 days and this then discontinue. If discharge anticipated, recommend to have lab done early next week and follow up at CKD Clinic in 2 weeks. Will follow Admission and Anticipated Discharge Date Admission Date: October 08, 2022 Tracy Downing was seen and evaluated this morning. Overall he has been feeling well, appetite has been decent, having decent urine output. No shortness of breath or chest pain. Kidney function improved and staying relatively stable, creatinine staying around 2.0-2.2 which is his baseline. Review of Systems Review of Systems: Detailed review of system was otherwise unremarkable. Physical Exam Constitutional: WD/WN, vitals as above no acute distress Eyes: + anicteric sclerae Neck: normal visual inspection Respiratory: normal respiratory effort; no respiratory distress Auscultation: lungs clear to auscultation bilaterally Cardiovascular: Rate/Rhythm: regular rate and regular rhythm Heart Sounds: normal S1 and normal S2 Extremities: no edema Skin: no rashes, warm and dry Neurologic: no focal motor deficits and not confused Psychiatric: Orientation: alert and oriented x 3 Results & Data Vital Signs (Past 12 Hours) Vital Signs Temp Pulse Pulse Pulse Resp BP BP 10/25/22 12:28 76 18 143/83 H 10/25/22 12:23 73 18 163/81 H 10/25/22 12:18 77 18 133/73 10/25/22 12:07 36.6 C 77 20 147/69 H 10/25/22 08:00 66 10/25/22 07:00 36.4 C L 61 20 154/71 H 10/25/22 04:00 36.5 C 66 18 125/65 Pulse Ox O2 Del Method 10/25/22 12:28 95 Room Air 10/25/22 12:23 95 Room Air 10/25/22 12:18 97 Room Air 10/25/22 12:07 78 L Room Air 10/25/22 08:00 10/25/22 07:00 97 Room Air 10/25/22 04:00 98 Room Air PG Care Time/CCT Total # of Minutes Spent Total Time Spent with Patient: Total time spent is greater than 50% in coordination of care (as documented) at patient's floor/unit and/or counseling patient: Coding Level of Care Code 29125 SUB INP/OBS CARE 3/50MIN Diagnoses Acute kidney injury superimposed on CKD N17.9; N18.9 Acute hyponatremia E87.1 Acute hyperkalemia E87.5
[2022-10-25] MEDS: ROSUVASTATIN CALCIUM 20 MG TAB PO SCH (20:49)
[2022-10-25] MEDS: FINASTERIDE 5 MG TAB PO SCH (20:50)
[2022-10-25] MEDS: TAMSULOSIN HCL 0.4 MG CAP PO SCH (20:51)
[2022-10-26] MEDS: LEVOTHYROXINE SODIUM 88 MCG TABLET PO SCH (05:55)
[2022-10-26 06:32] LABS: Hematocrit (blood only) 28.6 % (42.0-52.0); Hemoglobin 10.1 g/dl (14.0-18.0); Mean Corpuscular Hemoglobin 31.6 pg (25.0-34.0); Mean Corpuscular Hgb Conc 35.3 g/dL (32.0-36.0); Mean Corpuscular Volume 89.4 fL (80.0-100.0); Mean Platelet Volume 9.4 fL (9.4-12.4); Platelet Count 120 K/uL (130-400); RDW Coefficient of Variation 13.5 % (11.5-14.5); RDW Standard Deviation 44.3 fL (36.4-46.3); White Blood Count 9.31 K/ul (4.8-10.8)
[2022-10-26 07:12] LABS: Calcium 7.6 mg/dl (8.6-10.3); Potassium 3.6 mmol/L (3.5-5.1)
[2022-10-26 07:18] LABS: BUN Creatinine Ratio 31.7 (10-20); Creatinine Clr Calc Pharmacy 31.6 ml/min; Est GFR (African American) 38.4 ml/min; Est GFR (Non-African American) 33.1 ml/min
[2022-10-26] MEDS: SEVELAMER HCL 800 MG TABLET PO SCH (08:40)
[2022-10-26] MEDS: CEROVITE ADV FORMULA TAB PO SCH (08:40)
[2022-10-26] MEDS: APIXABAN 2.5 MG TAB PO SCH (08:40)
[2022-10-26] MEDS: METOPROLOL TARTRATE 25 MG TAB PO SCH (08:40)
[2022-10-26] MEDS: LOSARTAN POTASSIUM 25 MG TAB PO SCH (08:40)
[2022-10-26] MEDS: ASPIRIN 81 MG ECTAB PO SCH (08:40)
[2022-10-26] MEDS: PANTOprazole 40 MG TAB PO SCH (08:40)
[2022-10-26] MEDS: BUMETANIDE 1 MG TAB PO SCH (08:41)
[2022-10-26] MEDS: UMECLIDINIUM BROMIDE 62.5MCG/BLISTER 7 PUFFS/INHALER INH SCH (08:41)
[2022-10-26] MEDS: FLUTICASONE/VILANTEROL 200/25MCG 14 PUFFS/INHALER INH SCH (08:41)
[2022-10-26] MEDS: GABAPENTIN 100 MG CAP PO SCH (08:41)
[2022-10-26] MEDS: INSULIN ASPART PER UNIT CHARGE SC SCH (08:46)
[2022-10-26] MEDS: clonazePAM 1 MG TAB PO SCH (08:46)
[2022-10-26] MEDS ORDERED: predniSONE 10 MG TABLET PO SCH (09:00)
[2022-10-26] MEDS ORDERED: LANTUS PER UNIT CHARGE SQ SCH (09:00)
--- NOTE | 2022-10-26 11:16 | Discharge Summary ---
Date of Service October 26, 2022 Admission HPI Per Admitting Provider 86yo Male with PMH CHF EF 60-65%, DM2, asthma, COPD, Hx. MO, DVT, hypothyroidism, CKD, HTN, HLD, chronic leg wound, GERD here for increased swelling in face, extremities, abd found to have JUDI on CKD. Patient is a poor historian, majority of history given by . Patient had cellulitis of lower extremities 1.5 wks ago, was started on abx. This past Monday he was peeing bright red blood was seen in ED noted UTI prostitis started on abx with caution given his kidney function. Yesterday they noted worsening of his leg wound. This morning noted increased swelling in all extremities face and abd, took him to ED. At this time patient denies nausea fever, has some SOB due to congestion, continues to have swelling in abd and extremities Per patient had increased congestion hoarse voice ongoing 1 week, has been using mucinex tylenol to help with symptoms. notes that patient has difficulty peeing. He has been drinking a lot, however has not drank as much today. He has a low salt diet at home. manages all medication, is POA Admission Exam Per Admitting Provider Constitutional: well developed, well nourished, cooperative and comfortable Eyes: PERRL, conjunctivae normal, anicteric sclerae ENMT: external ear and nose normal, oropharynx normal Neck: trachea midline, no thyromegaly Respiratory: normal respiratory effort Auscultation: + wheezes (diffuse) Cardiovascular: Rate/Rhythm: regular rate and regular rhythm Extremities: + edema (b/l pitting +2 up to kneese) Gastrointestinal (Abdomen): Inspection/Auscultation: + abdomen distended Percussion/Palpation: abdomen soft; abdomen nontender Skin: bandaging noted on LLE Principal Diagnosis JUDI on CKD Discharge Exam Constitutional WD/WN, vitals as above Eyes PERRL, conjunctivae normal, anicteric sclerae Respiratory normal respiratory effort, lungs clear to auscultation Cardiovascular Rate/Rhythm: regular rate and regular rhythm Heart Sounds: + murmur Extremities: + edema Gastrointestinal (Abdomen) normal bowel sounds, soft, nontender, no hepatosplenomegaly Skin no rashes, warm and dry Neurologic moves all extremities and awake Psychiatric A+Ox3, euthymic affect Discharge Data Allergies Allergy/AdvReac Type Severity Reaction Status Date / Time ciprofloxacin [From Cipro] AdvReac Severe Verified 10/22/22 15:39 semaglutide [From Ozempic] AdvReac Severe NAUSEA/VOMI Verified 10/08/22 17:29 TING/ANOREX IA amlodipine AdvReac Intermediate SWELLING Verified 10/08/22 17:29 OF ANKLES ropinirole AdvReac Intermediate CHANGE IN Verified 10/08/22 17:29 MENTAL STATUS Consultations 10/08/22 18:24 ED Decision to Admit Stat 10/08/22 20:50 Consult Urology Routine 10/08/22 22:36 Consult Nephrology Routine 10/12/22 09:22 Consult Vascular Surgery Routine 10/12/22 12:08 Consult Infectious Diseases Routine 10/24/22 11:16 Consult Vascular Surgery Routine Procedures Performed Operation Date: 10/25/22 10:40 Actual Procedures p Removal of Perm Catheter(Right) - Bryson Ramirez MD Ordered Studies 10/08/22 16:57 CT abd pelvis wo con Stat 10/12/22 10:53 EV cvc insrt tnnl with prt/pipe straightener Routine US EV guide vascular access Routine Chest X-Ray 10/08/22 16:16 XR chest 1V portable CLINICAL HISTORY: sob TECHNIQUE: Single frontal radiograph of the chest was obtained. Comparison: Comparison is made to chest radiograph 09/26/2022 FINDINGS: Median sternotomy wires are unchanged. Fractured superior wire is again seen. Calcified aortic knob is seen. The lungs are clear. No evidence of pleural effusion or pneumothorax. IMPRESSION: No acute abnormalities and in particular no radiographic evidence of pneumonia. ACT 112: Negative or not required by law. Electronically signed by: Dano West M.D. 10/08/2022 5:15 PM Abdomen/Pelvis CT 10/08/22 16:57 CT abd pelvis wo con CLINICAL HISTORY: judi difficulty urinating TECHNIQUE: Helical axial images of the abdomen and pelvis were obtained. Automated dose lowering techniques and/or adjustment according to patient size were utilized for this exam. This exam was performed without intravenous contrast. CT DOSE: 1039.30 mGy.cm COMPARISON: Comparison is made to CT abdomen pelvis 10/05/2021 FINDINGS: Lower chest: Bibasilar atelectasis versus scarring is seen. Liver: Unremarkable. No focal lesions are seen. Gallbladder and biliary tree: Patient is status post cholecystectomy. No intra- or extrahepatic biliary ductal dilation. Pancreas: Unremarkable, no focal lesions. Spleen: Unremarkable. Adrenals: Unremarkable. Kidneys and ureters: Perinephric stranding is noted bilaterally. Left lower pole cyst is seen. No hydronephrosis is seen. Bladder: Diffuse homogeneous wall thickening is seen. Reproductive organs: Patient appears be status post prostatectomy. Bowel: Unremarkable. Lymph nodes Retroperitoneal: Unremarkable. Pelvic: Unremarkable. Mesenteric: Unremarkable. Peritoneum: Normal. Vessels: Atherosclerotic calcifications are seen. Abdominal wall: Right fat-containing inguinal hernia. Bones: Degenerative changes in the visualized spine. Posterior fixation hardware is seen in the lumbar sacral spine. IMPRESSION: No acute abnormality and in particular no evidence of hydronephrosis. Chronic appearing bladder wall thickening is likely due to chronic outlet obstruction, although superimposed cystitis cannot be entirely excluded. ACT 112: Negative or not required by law. Electronically signed by: Dano West M.D. 10/08/2022 6:17 PM KUB X-Ray 10/17/22 10:51 XR KUB/Abdomen 1 view CLINICAL HISTORY: evaluate for ileus TECHNIQUE: 1 view of the abdomen was obtained. Comparison: Comparison is made to CT abdomen pelvis 10/08/2022 FINDINGS: Lung bases are unremarkable. Posterior fixation hardware is seen. The bowel gas pattern is nonobstructive. A moderate amount of stool is noted within the large bowel. IMPRESSION: Nonobstructive bowel gas pattern. ACT 112: Negative or not required by law. Electronically signed by: Dano West M.D. 10/17/2022 2:55 PM Diabetes Follow up Diabetes Follow-up Needed for HgbA1c >9% Hospital Course (1) Fluid overload: Aj is a 86 year-old male with PMHx of HFpEF 60-65%, DM2, asthma, COPD, CAD with previous MO, DVT, hypothyroidism, CKD, HTN, HLD, chronic leg wound, GERD here for increased swelling in face, extremities, and found to have JUDI on CKD now with stable creatinine and improving fluid status. JUDI on CKD Concern for ATN vs AIN with component of post-renal obstructive as patient recently treated with cipro for presumed prostatitis. CT A&P showed no evidence of hydronephrosis. Chronic appearing bladder wall thickening is likely due to chronic outlet obstruction. Cr 6.19 with K of 6.1 on admission. Patient was trialed on dialysis and responded will. Cr downtrended to baseline. Baseline ~ 2.0. Holding dialysis to assure stabilization of Cr without further intervention. -Urology consulted - rec Jeronimo for at least 1 week, f/u outpatient for voiding trial. Appointment scheduled with Dr. Nguyễn. -Nephrology consulted - recommend follow up with CKD clinic in 2 weeks and repeat blood work early next week -Vascular surgery removed dialysis catheter on10/25 -Aim for fluid restriction of 1500mL -Continue Bumex BID -Cr at baseline now. -for AIN - Will continue prednisone 10mg x3days, 5mg x3days to taper off steroid Hyperglycemia in the setting of DM2 Patient on empagliflozin, glipizide, and insulin at home. Was hyperglycemic earlier during this admission, more recently has had episodes of hypoglycemia. -HbA1c 11.5 -Continue home medications as above Hyperkalemia - resolved with dialysis K 6.1 on admit in the setting of JUDI on CKD. Resolved with dialysis. Now stable without intervention. -K of 3.7 today Prostatitis Patient was started on ciprofloxacin outpatient for presumed prostatitis. This was d/c in the setting of JUDI on CKD with Cr of 6. Urine cx grew proteus vulgaris, repeat baylee glabrata no need to treat. ID consulted discussed likely not prostatitis thus no need for further abx. cipro was stopped given renal function Reactive Airway Disease Continue home inhalers HTN, CAD - MO On losartan, metoprolol, and ASA at home. Held losartan in setting of JUDI on CKD. Medications restarted at discharge BPH On tamsulosin and finasteride at home. Increased tamsulosin to 0.8mg HLD Continue rosuvastatin, dose reduced to 10mg daily initially. Resume home dosing 20 mg QHS. Anxiety Patient on clonazepam and gabapentin 100 mg QAM and 300 mg QHS. PM dose initially held in the setting of CrCl < 15. Will resume PM dosing (2) Acute kidney injury superimposed on CKD: (3) DVT (deep venous thrombosis): (4) Prostatitis: (5) Acute hyperkalemia: (6) Abdominal distension: (7) Benign prostatic hyperplasia with urinary obstruction: (8) Hypothyroidism: (9) Hypertension: (10) Dyslipidemia: (11) CHF (congestive heart failure): (12) GERD (gastroesophageal reflux disease): (13) Diabetes: Total Time Total Time Spent Total Time Spent (In Minutes): . Discharge Plan Discharge Items Patient Disposition: Home - Self-Care Reason For Visit: JUDI EDEMA Discharge Diagnosis: JUDI Activity: Per Instructions section Non-emergency contact: Primary Care Provider Call non-emergency contact if: you have any medication questions, your symptoms worsen and your temperature is above 101.5 Follow-up/Referrals: Tete Dixon MD [Physician] - 11/09/22 1:20 pm () Tyron Nguyễn DO [Physician] - (DR NGUYỄN' OFFICE WILL CALL YOU TO SET UP A FOLLOW-UP APPOINTMENT WITHIN THE NEXT COUPLE DAYS.) Cory Nunez DO [Primary Care Provider] - 10/31/22 12:45 pm (THIS APPOINTMENT WILL BE WITH DR HOOKS.) Diet: Carb Consistent or DM2 Fluids: 1500ml (6 cups) Ambulatory Orders: Renal Function Panel (Routine) Timeframe: 20221031 Location: Determined by Patient Ordered By: Dianna Manley Attending Provider Instructions: You were admitted to the hospital for worsening kidney function. You were treated with dialysis and improved quickly so you were able to have your dialysis catheter removed. A discharge summary will be sent to your primary care physician to ensure continuity of care. Follow-up appointments Make a follow-up appointment with nephrology at the CKD clinic within the next two weeks. It is very important that you follow up with them shortly after discharge from the hospital. You should also call the urology office to set up an appointment with Dr. Diana garcia to discuss your jeronimo catheter. You will also have blood work ordered to be completed early next week. You can complete this at a [facility] lab facility. You have a hospital discharge follow up appointment with your PCP. If you are unable to make this appointment, or have any other questions, their office can be reached at [phone]. Keep all your follow-up appointments as already scheduled. If you cannot make an appointment, notify your provider. Medications Your medication list has been reviewed and reconciled upon discharge to ensure accuracy and continuity of care. An updated list of all your medications is included with your hospital discharge paperwork. Please review this list closely, and make note of any changes. We sent a new medication called Prednisone to your pharmacy. Take Prednisone 10mg (2 tablets) for two more days starting on 10/27/22, and then take Prednisone 5mg (1 tablet) for three additional days. This should complete your prednisone taper on 10/31/22. We sent a new prescription for your Eliquis to your pharmacy. Due to your kidney function, your dosage was decreased. You will now take Eliquis 2.5mg (1 tablet) twice daily. We sent a new prescription for Tamsulosin (Flomax) to your pharmacy as we increased the dose during your admission. Take Tamsulosin 0.8mg daily. CALL 911 OR GO TO THE EMERGENCY DEPARTMENT if you experience any of the following: Sudden, severe abdominal pain or nausea/vomiting Severe chest pain, or chest pain that radiates (moves) to your jaw or arm Sudden, severe shortness of breath or difficulty breathing Thank you for allowing us to participate in your care. Pending Studies at Discharge: No Stand-Alone Forms: My [employer], Smoking Cessation Medications and DC Order Prescriptions: New tamsulosin 0.4 mg Capsule 0.8 mg PO HS 30 Days Qty: 60 0RF Eliquis 2.5 mg Tablet 2.5 mg PO BID 30 Days Qty: 60 0RF prednisone 5 mg tablet 5 mg PO DIRECTED Qty: 7 0RF Rx Instructions: Take 2 tablets daily on 10/27 and 10/28, then take 1 tablet daily on 10/29, 10/30, and 10/31 Continued insulin glargine [Lantus Solostar U-100 Insulin] 100 unit/mL (3 mL) insulin pen See Rx Instructions .ROUTE .COMPLEX Rx Instructions: TAKES 52 UNITS QAM, THEN 44 UNITS QPM. Per he uses 50 units in evening levothyroxine 88 mcg tablet 88 mcg PO DAILYBB Qty: 90 albuterol sulfate 90 mcg/actuation HFA aerosol inhaler 2 puffs inhalation QID PRN (Reason: shortness of breath or wheezing) potassium chloride 20 mEq tablet extended release 20 meq PO BID Rx Instructions: TAKE THIS MED WHEN TAKING BUMETANIDE. DO NOT TAKE THIS MED IF NOT TAKING BUMETANIDE. glipizide 10 mg tablet 10 mg PO BID Rx Instructions: TAKE 15-30 MINUTES PRIOR TO A MEAL. losartan 25 mg tablet 25 mg PO QAM finasteride 5 mg tablet 5 mg PO HS empagliflozin 10 mg Tablet 10 mg PO DAILY gabapentin 100 mg Capsule See Rx Instructions .ROUTE .COMPLEX Rx Instructions: 100 mg orally; TAKE 100 MG QAM, THEN 300 MG QPM. pantoprazole 20 mg tablet,delayed release (DR/EC) 20 mg PO BID aspirin 81 mg Tablet,Delayed Release (Dr/Ec) 81 mg PO DAILY bumetanide 2 mg Tablet 2 mg PO BID clonazepam 1 mg tablet 1 mg PO BID acetaminophen [Tylenol Extra Strength] 500 mg Tablet 1,000 mg PO Q6H PRN (Reason: PAIN/FEVER) Rx Instructions: RARELY USES ACCORDING TO . diphenhydramine HCl [Benadryl] 25 mg Capsule 25 mg PO BID PRN (Reason: NEEDED ) fluticasone propion-salmeterol 500-50 mcg/dose Blister With Device 1 inh INHALATION BID metoprolol tartrate 50 mg Tablet 25 mg PO BID multivitamin with minerals Tablet 1 tab PO DAILY rosuvastatin 20 mg Tablet 20 mg PO HS PreserVision AREDS 2,148 mcg-113 mg-45 mg-17.4mg Tablet 1 tab PO DAILY tiotropium bromide 2.5 mcg/actuation Mist 2 puff INHALATION DAILY Discontinued tamsulosin 0.4 mg capsule 0.4 mg PO HS Eliquis 5 mg Tablet 5 mg PO BID cephalexin 500 mg capsule 500 mg PO BID Rx Instructions: STARTED 10/07/22 FOR 5 DAYS. ciprofloxacin HCl [Cipro] 500 mg tablet 500 mg PO DAILY Qty: 14 0RF Rx Instructions: STARTED 10/05/22 FOR 7 DAYS Discharge Orders: Discharge Order (Routine); Ordered 10/26/22 Ordered By: Dianna Green/Other Patient Handouts: Kidney Disease Potassium in Diet, Kidney Disease Calcium Phosphorus, Kidney Disease Protein, Kidney Disease Fluid Intake, Kidney Disease Limiting Sodium, Urinary Catheter Bag Empty Clean, Indwelling Urinary Catheter Dc, Leg Bag Care Dc, Jeronimo Catheter Male Ch, ED Jeronimo Catheter, Care Admission Data Admit Date/Time: 10/08/22 20:14 Attending Provider: Cyndi Grimm Admit Provider: Andria Hong Primary Care Provider: Cory Nunez Other Providers: Bryson Ramirez ; [facility] ; [place] ; Cory Nunez ; Ricky Rosales ; Savage Back ; Tete Dixon ; Alisa Flowers ; Patrick Michaels ; Rianna Horowitz ; Lauren Berman ; Latasha Franco ; Sanam Manzano ; Tess Dutton ; Constantino Hanson ; Ann Conroy Other Interventions: Discharge Summary Assessment (RN) Last Done: 10/26/22 11:21 Supervising Physician Co-Signing Physician Notes Resident Physician Supervision Note: I independently interviewed and examined the patient and verified the aguayo history and physical, reviewed labs and image studies and agree with resident findings and care plan.
--- NOTE | 2022-10-26 18:24 | Nephrology Progress Note ---
Date of Service October 26, 2022 Assessment & Plan (1) Acute kidney injury superimposed on CKD: (2) Acute hyponatremia: (3) Acute hyperkalemia: Plan 86-year-old gentleman with stage IIIB CKD baseline creatinine around 2-2.2, admitted with acute kidney injury thought to be secondary to acute interstitial nephritis with cephalexin and ciprofloxacin, requiring dialysis via tunneled catheter. Had several dialysis treatment but has been off of dialysis since last week and kidney function started to improve on prednisone. Prednisone now down to 10 mg daily. Had tunneled dialysis catheter removed on 10/25/22. --continue prednisone 10 mg daily, continue for 3 days and this then 5 mg for 3 days and then discontinue. Lab early next week and follow up at CKD Clinic in 2/3 weeks. Will follow Admission and Anticipated Discharge Date Admission Date: October 08, 2022 Tracy Downing was seen and evaluated this morning with his at bedside. Overall he has been feeling well, appetite has been decent, having decent urine output. No shortness of breath or chest pain. Kidney function improved and staying relatively stable, creatinine staying around 2.0-2.2 which is his baseline. Had TDC removed yesterday. Review of Systems Review of Systems: Detailed review of system was otherwise unremarkable. Physical Exam Constitutional: WD/WN, vitals as above no acute distress Eyes: + anicteric sclerae Neck: normal visual inspection Respiratory: normal respiratory effort; no respiratory distress Auscultation: lungs clear to auscultation bilaterally Cardiovascular: Rate/Rhythm: regular rate and regular rhythm Heart Sounds: normal S1 and normal S2 Extremities: no edema Skin: no rashes, warm and dry Neurologic: no focal motor deficits and not confused Psychiatric: Orientation: alert and oriented x 3 Results & Data Vital Signs (Past 12 Hours) Vital Signs Temp Pulse Pulse Pulse Resp BP BP 10/26/22 11:21 36.7 C 70 89 18 144/73 H 142/69 H 10/26/22 11:14 61 10/26/22 11:14 10/26/22 08:50 36.7 C 89 18 144/73 H Pulse Ox O2 Del Method 10/26/22 11:21 94 10/26/22 11:14 10/26/22 11:14 Room Air 10/26/22 08:50 94 Room Air PG Care Time/CCT Total # of Minutes Spent Total Time Spent with Patient: Total time spent is greater than 50% in coordination of care (as documented) at patient's floor/unit and/or counseling patient: Coding Level of Care Code 51394 SUB INP/OBS CARE 2/35MIN Diagnoses Acute kidney injury superimposed on CKD N17.9; N18.9 Acute hyponatremia E87.1 Acute hyperkalemia E87.5
== END 2022-10-26 13:41 | disposition home or self-care (01) | DRG 683 ==
LOC: ED 15:44 → SUATTDRO 20:14 → 2N 20:14

== ENCOUNTER 2022-11-08 22:14 | Inpatient (IN) ==
--- NOTE | 2022-11-08 22:17 | Emergency Department Note ---
Impression & Plan Acute hypoxemic respiratory failure, Acute hyperglycemia, CKD (chronic kidney disease), Anemia ED Provider Note NAME: BRIAN NEWMAN AGE: 87 SEX: M : 1935 ARRIVES VIA: Ambulance INFORMANT: Patient, ED PROVIDER(S): Bronson Ji MD CHIEF COMPLAINT: Elevated blood sugar MEDICAL DECISION MAKING: Patient presents due to concern for elevated blood sugar. The patient was noted to be hypoxemic as well as febrile. Sepsis protocols were initiated although the patient was attempted to be gently hydrated given the patient's known history of CHF in addition to the patient's lower extremity edema. Patient did receive IV Zosyn and a chest x-ray was obtained. The patient's chest x-ray does show the possibility of a right lower lobe pneumonia with associated left-sided pleural effusion. The patient's blood work shows a normal white count with anemia hemoglobin of 9.8 which is relatively chronic and stable. The patient's VBG does not show any hypercarbia or acidosis. Patient with a sodium of 126 although this may be pseudohyponatremia given the patient's glucose of 747 the patient's bicarb and anion gap are normal. The patient is not DKA. Creatinine at 2.8 which is chronic and stable. Procalcitonin to 1. The patient's lactate is not elevated. The patient was ordered an insulin drip given the patient's significant hyperglycemia. I did speak with the on-call hospital service Dr. Zamarripa and the patient was admitted to the medicine service. BioFire negative. Upon reassessment the patient was satting well. The patient was not tachycardic patient was maintaining appropriate MAPS. Patient does have an elevated BNP at 224 but this was 434 back in September. Patient does have an elevated troponin but think this is likely from demand. Critical Care: I have personally spent 55 minutes of critical care time in direct management of this patient. This includes bedside care, interpretation of diagnostic studies, and testing, discussion with consultants, patient, and family members, and other require inpatient management activities. This 55 minutes is in excess of all separately billable procedures. Prior /Outside records reviewed: I did review a note from November 04, [address] Mcarthur. Patient did have a Lopez catheter removed at that time. Differential diagnosis: Sepsis, UTI, pneumonia, metabolic, electrolyte abnormalities, cardiac sources, intracerebral event, toxicologic, neurologic, as well as other pathologies. Diagnostics, as interpreted by me: ECG: Sinus with first-degree AV block, rate 97, prolonged LA, wide QRS, right middle branch block pattern, left axis deviation, no obvious ST elevations. T wave inversion in lead III. Cardiac monitoring: An order was placed for continuous cardiac monitoring. The monitor shows a rate of 95 with sinus rhythm. Patient was placed on pulse oximetry Medical decision rules: None Imaging studies: See below I informally reviewed the patient's chest x-ray which may show a right lower lobe pneumonia and does show a likely left-sided pleural effusion. HPI: Patient presents from home due to concern for elevated blood sugar. The patient at the bedside does not complain of any chest pains or shortness of breath. The patient was noted to be mildly hypoxemic. Patient's BSG at home read as high and was thought to be greater than 700 at local fire station. The patient was brought in for further evaluation and treatment. The patient did state that he had some worsening cough earlier today but it is dry nonpr oductive. Patient denies any abdominal pain or associated nausea or vomiting. Patient does have some chronic lower extremity wounds and some swelling which she states is not significantly changed. Patient denies any falls or trauma. Patient does not think that he has changed any of his medication treatment and has not changed his diet. Patient does not think that he ate more simple sugars or carbohydrates today. Patient denies any burning with urination no rash. PAST MEDICAL HISTORY: See Below PAST SURGICAL HISTORY: See Below SOCIAL HISTORY: See Below HOME MEDICATIONS: See Below ALLERGIES: See Below VITALS: See Below PHYSICAL EXAMINATION: GENERAL: NAD, non-toxic. EYE EXAM: Normal conjunctiva. PERRL, no anisocoria and EOM's grossly intact w/o pain. NECK: Supple, no nuchal rigidity, no adenopathy, non-tender. No signs of meningismus. FROM of the neck with good chin to chest and neck extension. No stridor. Chest: Midline surgical scar well-healed. LUNGS: Bibasilar crackles noted. Normal chest wall mechanics. HEART: NSR, no MRG. ABDOMEN: Abdomen soft, non-tender, no masses, no rebound or guarding. BACK: No CVA TTP. SKIN: Excoriation that blanches to the right inguinal area, this does not extend to the perineum or the scrotum. : No testicular or scrotal swelling or pain, no crepitus the perineum or scrotum. UPPER EXTREMITIES: Upper extremities are grossly normal. LOWER EXTREMITIES: Grossly normal, 1-2+ symmetric lower extremity edema without any calf pain or erythema, bandages noted, chronic left anterior betts wound just localized to erosion of the skin without fluctuance or crepitus. Clear drainage noted. NEURO EXAM: A&O x3, cranial nerves II-XII grossly intact, normal speech, moves all 4 extremities. Past Med/Surg History Medical History Acute bronchopneumonia Acute urinary retention [id number] kidney injury AMS (altered mental status) Anxiety Aortic stenosis Mild per 03/06/19 stress ECHO Asthma Uses rescue inhaler a couple times per week Atrial fibrillation Follows with Dr. Maile Soares Blindness of left eye BPH (benign prostatic hyperplasia) CAD (coronary artery disease) Angioplasty ~1993, CABG x 3 2013 (GALINDO to LAD, SVG to PDA, SVG to OM) CHF (congestive heart failure) Chronic kidney disease Follows with Dr. Dixon Chronic obstructive pulmonary disease Diabetes Type 2 IDDM Foot ulcer GERD (gastroesophageal reflux disease) Herpes zoster Hiatal hernia Hyperlipidemia Hypertension Hypervolemia Hypothyroidism Leukocytosis Macular degeneration Myocardial infarct ~1993 Peripheral neuropathy Rupture of left distal biceps tendon hx - no surgery Secondary hyperparathyroidism (of renal origin) SIRS (systemic inflammatory response syndrome) Surgical History Fusion of spine lumbar History of appendectomy History of cardiac cath with angioplasty ~1993 ([facility]) & 2013 ([facility]) History of cataract surgery bilateral History of coronary artery bypass graft x3 vessels ([facility] 2013) with epicardial RFA of pulmonary veins and left atrial appendage ligation History of revision of total replacement of right knee joint History of tonsillectomy History of tooth extraction History of total left knee replacement History of total right knee replacement Hx of colonoscopy Previous back surgery (08/26/12) S/P cholecystectomy Family History Brother Heart disease Diabetes Sister Cancer Mother Diabetes Father Diabetes Other Hypertension Kidney disease Social History Smoking Status: Former smoker Tobacco Type: Cigarettes Second Hand Exposure: No; Do You Dip or Chew Tobacco: No; Hx Alcohol Use: No Hx Substance Use: No Preferred Language: Danish Communication Ability: Effective Visual Impairment: Partially Limited Side Stitching Machine Operator Required: No Beliefs That Will Affect Care: Confucianist Confucianist Beliefs: Pt. states he would not want any machines to keep him alive including dialysis. marital status: Current Living Situation: Spouse Current Living Situation Comment: lives at home with current occupational status: retired Feels Safe at Home: Yes Assistive Devices: Cane, Denture - Upper, Denture - Lower, Glasses, Scooter/Electric Scooter, Walker and Wheelchair Allergies Allergies Allergy/AdvReac Type Severity Reaction Status Date / Time ciprofloxacin [From Cipro] AdvReac Severe Verified 11/02/22 10:00 semaglutide [From Ozempic] AdvReac Severe NAUSEA/VOMI Verified 11/02/22 10:00 TING/ANOREX IA amlodipine AdvReac Intermediate SWELLING Verified 11/02/22 10:00 OF ANKLES ropinirole AdvReac Intermediate CHANGE IN Verified 11/02/22 10:00 MENTAL STATUS Home Meds Home Medications Medication Instructions Recorded Confirmed albuterol sulfate 90 mcg/actuation 2 puffs inhalation QID PRN 01/10/19 11/08/22 aerosol inhaler shortness of breath or wheezing levothyroxine 88 mcg tablet 88 mcg PO DAILYBB #90 tabs 01/10/19 11/08/22 potassium chloride 20 mEq 20 meq PO BID 01/10/19 11/08/22 tablet,extended release finasteride 5 mg tablet 5 mg PO HS 04/23/19 11/08/22 losartan 25 mg tablet 25 mg PO QAM 04/23/19 11/08/22 gabapentin 100 mg capsule See Rx Instructions .Route .COMPLEX 12/16/20 11/08/22 aspirin 81 mg tablet,delayed 81 mg PO DAILY 10/11/21 11/08/22 release pantoprazole 20 mg tablet,delayed 20 mg PO BID 02/07/22 11/08/22 release glipizide 10 mg tablet 10 mg PO BID 03/29/22 11/08/22 insulin glargine 100 unit/mL (3 See Rx Instructions .Route .COMPLEX 04/12/22 11/08/22 mL) subcutaneous pen (Lantus Solostar U-100 Insulin) acetaminophen 500 mg tablet 1,000 mg PO Q6H PRN PAIN/FEVER 05/28/22 11/08/22 (Tylenol Extra Strength) bumetanide 2 mg tablet 2 mg PO BID 05/28/22 11/08/22 clonazepam 1 mg tablet 1 mg PO BID 05/28/22 11/08/22 diphenhydramine HCl 25 mg capsule 25 mg PO BID PRN NEEDED 05/28/22 11/08/22 (Benadryl) fluticasone 500 mcg-salmeterol 50 1 inh inhalation BID 05/28/22 11/08/22 mcg/dose blistr powdr for inhalation metoprolol tartrate 50 mg tablet 25 mg PO BID 05/28/22 11/08/22 multivitamin with minerals 1 tab PO DAILY 05/28/22 11/08/22 rosuvastatin 20 mg tablet 20 mg PO HS 05/28/22 11/08/22 tiotropium bromide 2.5 2 puff inhalation DAILY 05/28/22 11/08/22 mcg/actuation mist for inhalation vitamins A,C,E-yrbc-aflzhe 2,148 1 tab PO DAILY 05/28/22 11/08/22 mcg-113 mg-45 mg-17.4 mg tablet (PreserVision AREDS) Previous Rx's Medication Instructions Recorded apixaban 2.5 mg tablet (Eliquis) 2.5 mg PO BID 30 days #60 tabs 10/26/22 tamsulosin 0.4 mg capsule 0.8 mg PO HS 30 days #60 caps 10/26/22 Results & Data (ED) Vital Signs Vital Signs - 24 hr 11/08/22 22:23 11/08/22 22:24 11/08/22 22:32 Temperature 38.5 C H Temperature Source Oral Pulse Rate 95 H 95 H 93 H Pulse Rate [Apical] Pulse Strength [Apical] Respiratory Rate 19 24 Respiratory Effort / Characteristics Non-Labored Respiratory Depth Normal Respiratory Pattern Regular Blood Pressure 105/67 Blood Pressure [Right Arm] Blood Pressure Mean 79 Blood Pressure Mean [Right Arm] Pulse Oximetry 88 L 94 Oxygen Delivery Method Room Air Nasal Cannula Oxygen Flow Rate 2 Sepsis Recent Fever Within 48 Hours Yes Sepsis New/Unexplained Change in Mental Status No Sepsis Action Taken by Nursing Physician Notified 11/09/22 00:08 Temperature Temperature Source Pulse Rate Pulse Rate [Apical] 89 Pulse Strength [Apical] Normal Respiratory Rate 23 Respiratory Effort / Characteristics Non-Labored Spontaneous Respiratory Depth Normal Respiratory Pattern Regular Blood Pressure Blood Pressure [Right Arm] 113/60 Blood Pressure Mean Blood Pressure Mean [Right Arm] 77 Pulse Oximetry 93 Oxygen Delivery Method Nasal Cannula Oxygen Flow Rate 2 Sepsis Recent Fever Within 48 Hours Sepsis New/Unexplained Change in Mental Status Sepsis Action Taken by [facility] Medications Current Medication List: was personally reviewed by me Laboratory Data Attestation: I reviewed the patient's lab results. 11/08/22 22:52 11/08/22 22:52 Lab Results 11/08/22 11/08/22 11/08/22 Range/Units 22:31 22:52 22:52 WBC 7.01 (4.8-10.8) K/ul RBC 3.05 L (4.70-6.10) M/uL Hgb 9.8 L (14.0-18.0) g/dl POC Hgb (14.0-18.0) g/dl Hct 28.6 L (42.0-52.0) % POC Hct (42-52) % MCV 93.8 (80.0-100.0) fL MCH 32.1 (25.0-34.0) pg MCHC 34.3 (32.0-36.0) g/dL RDW Std Deviation 47.9 H (36.4-46.3) fL RDW Coeff of Adrian 14.2 (11.5-14.5) % Plt Count 125 L (130-400) K/uL MPV 10.2 (9.4-12.4) fL Immature Gran % (Auto) 1.6 % Neut % (Auto) 70.6 % Lymph % (Auto) 17.1 % [place] % (Auto) 10.3 % Eos % (Auto) 0.1 % Baso % (Auto) 0.3 % Neut # (Auto) 4.95 (1.40-6.50) K/uL Lymph # (Auto) 1.20 (1.2-3.4) K/uL [place] # (Auto) 0.72 H (0.11-0.59) K/uL Eos # (Auto) 0.01 (0-0.50) K/uL Baso # (Auto) 0.02 (0-0.2) K/uL Immature Gran # (Auto) 0.11 (0.01-0.20) K/uL PT (9.0-12.0) Seconds INR (0.9-1.1) APTT (21.0-31.0) Seconds PTT Ratio VBG pH (7.36-7.41) VBG pCO2 (38-50) mmHg VBG pO2 mmHg VBG HCO3 mmol/L VBG O2 Saturation % VBG Base Excess mEq/L POC Sodium (135-144) mmol/L Sodium 126 L (136-145) mmol/L POC Potassium (3.3-5.0) mmol/L Potassium 4.7 (3.5-5.1) mmol/L POC Chloride (101-112) mmol/L Chloride 90 L (98-107) mmol/L Carbon Dioxide 27 (21-32) mmol/L POC Total CO2 (24-31) mmol/L Anion Gap 9 (3-11) POC Anion Gap (16-25) mmol/L POC BUN (7-18) mg/dl BUN 34 H (6-23) mg/dl Creatinine 2.80 H (0.6-1.4) mg/dl POC Creatinine (0.6-1.3) mg/dl Est Cr Clr Drug Dosing 20.0 ml/min Est GFR ( Amer) 22.5 ml/min Est GFR (Non-Af Amer) 19.4 ml/min BUN/Creatinine Ratio 12.1 (10-20) Glucose 747 H* (70-99(Fasting)) mg/dl POC Glucose > 600 H* (70-99) mg/dl POC Glucose (other) (70-99) mg/dl Lactate (0.4-2.0) mmol/L Calcium 8.2 L (8.6-10.3) mg/dl POC Ioniz Calcium Rafael (1.12-1.32) mmol/l Magnesium 1.9 (1.7-2.4) mg/dl Total Bilirubin 0.9 (0.2-1.0) mg/dl Direct Bilirubin 0.2 (0-0.2) mg/dl AST 23 (13-39) U/L ALT 23 (7-52) U/L Alkaline Phosphatase 69 (34-104) U/L Troponin I High Sens 29.1 H (0-20) pg/ml B-Natriuretic Peptide (0-100) pg/ml Total Protein 6.2 (6.0-8.3) gm/dl Albumin 2.9 L (3.4-5.0) gm/dl Procalcitonin (0-0.5) ng/ml Adenovirus (PCR) (NotDetected) B. pertussis DNA (PCR) (NotDetected) B.parapertussis DNA PCR (NotDetected) C. pneumoniae DNA (PCR) (NotDetected) Coronavirus OC43 (PCR) (NotDetected) Coronavirus HKU1 (PCR) (NotDetected) Coronavirus 229E (PCR) (NotDetected) SARS-CoV-2 (PCR) (NotDetected) Coronavirus NL63 (PCR) (NotDetected) Human Metapneumovir PCR (NotDetected) Influenza Type A (PCR) (NotDetected) Influenza Type B (PCR) (NotDetected) M. pneumoniae (PCR) (NotDetected) Parainfluenza 1 (PCR) (NotDetected) Parainfluenza 2 (PCR) (NotDetected) Parainfluenza 3 (PCR) (NotDetected) Parainfluenza 4 (PCR) (NotDetected) RSV (PCR) (NotDetected) Entero/Rhino (PCR) (NotDetected) 11/08/22 11/08/22 11/08/22 Range/Units 22:52 22:52 22:52 WBC (4.8-10.8) K/ul RBC (4.70-6.10) M/uL Hgb (14.0-18.0) g/dl POC Hgb (14.0-18.0) g/dl Hct (42.0-52.0) % POC Hct (42-52) % MCV (80.0-100.0) fL MCH (25.0-34.0) pg MCHC (32.0-36.0) g/dL RDW Std Deviation (36.4-46.3) fL RDW Coeff of Adrian (11.5-14.5) % Plt Count (130-400) K/uL MPV (9.4-12.4) fL Immature Gran % (Auto) % Neut % (Auto) % Lymph % (Auto) % [place] % (Auto) % Eos % (Auto) % Baso % (Auto) % Neut # (Auto) (1.40-6.50) K/uL Lymph # (Auto) (1.2-3.4) K/uL [place] # (Auto) (0.11-0.59) K/uL Eos # (Auto) (0-0.50) K/uL Baso # (Auto) (0-0.2) K/uL Immature Gran # (Auto) (0.01-0.20) K/uL PT (9.0-12.0) Seconds INR (0.9-1.1) APTT (21.0-31.0) Seconds PTT Ratio VBG pH (7.36-7.41) VBG pCO2 (38-50) mmHg VBG pO2 mmHg VBG HCO3 mmol/L VBG O2 Saturation % VBG Base Excess mEq/L POC Sodium (135-144) mmol/L Sodium (136-145) mmol/L POC Potassium (3.3-5.0) mmol/L Potassium (3.5-5.1) mmol/L POC Chloride (101-112) mmol/L Chloride (98-107) mmol/L Carbon Dioxide (21-32) mmol/L POC Total CO2 (24-31) mmol/L Anion Gap (3-11) POC Anion Gap (16-25) mmol/L POC BUN (7-18) mg/dl BUN (6-23) mg/dl Creatinine (0.6-1.4) mg/dl POC Creatinine (0.6-1.3) mg/dl Est Cr Clr Drug Dosing ml/min Est GFR ( Amer) ml/min Est GFR (Non-Af Amer) ml/min BUN/Creatinine Ratio (10-20) Glucose (70-99(Fasting)) mg/dl POC Glucose (70-99) mg/dl POC Glucose (other) (70-99) mg/dl Lactate 2.0 (0.4-2.0) mmol/L Calcium (8.6-10.3) mg/dl POC Ioniz Calcium Rafael (1.12-1.32) mmol/l Magnesium (1.7-2.4) mg/dl Total Bilirubin (0.2-1.0) mg/dl Direct Bilirubin (0-0.2) mg/dl AST (13-39) U/L ALT (7-52) U/L Alkaline Phosphatase (34-104) U/L Troponin I High Sens (0-20) pg/ml B-Natriuretic Peptide 224 H (0-100) pg/ml Total Protein (6.0-8.3) gm/dl Albumin (3.4-5.0) gm/dl Procalcitonin 1.06 H (0-0.5) ng/ml Adenovirus (PCR) (NotDetected) B. pertussis DNA (PCR) (NotDetected) B.parapertussis DNA PCR (NotDetected) C. pneumoniae DNA (PCR) (NotDetected) Coronavirus OC43 (PCR) (NotDetected) Coronavirus HKU1 (PCR) (NotDetected) Coronavirus 229E (PCR) (NotDetected) SARS-CoV-2 (PCR) (NotDetected) Coronavirus NL63 (PCR) (NotDetected) Human Metapneumovir PCR (NotDetected) Influenza Type A (PCR) (NotDetected) Influenza Type B (PCR) (NotDetected) M. pneumoniae (PCR) (NotDetected) Parainfluenza 1 (PCR) (NotDetected) Parainfluenza 2 (PCR) (NotDetected) Parainfluenza 3 (PCR) (NotDetected) Parainfluenza 4 (PCR) (NotDetected) RSV (PCR) (NotDetected) Entero/Rhino (PCR) (NotDetected) 11/08/22 11/08/22 11/08/22 Range/Units 22:52 22:52 22:54 WBC (4.8-10.8) K/ul RBC (4.70-6.10) M/uL Hgb (14.0-18.0) g/dl POC Hgb (14.0-18.0) g/dl Hct (42.0-52.0) % POC Hct (42-52) % MCV (80.0-100.0) fL MCH (25.0-34.0) pg MCHC (32.0-36.0) g/dL RDW Std Deviation (36.4-46.3) fL RDW Coeff of Adrian (11.5-14.5) % Plt Count (130-400) K/uL MPV (9.4-12.4) fL Immature Gran % (Auto) % Neut % (Auto) % Lymph % (Auto) % [place] % (Auto) % Eos % (Auto) % Baso % (Auto) % Neut # (Auto) (1.40-6.50) K/uL Lymph # (Auto) (1.2-3.4) K/uL [place] # (Auto) (0.11-0.59) K/uL Eos # (Auto) (0-0.50) K/uL Baso # (Auto) (0-0.2) K/uL Immature Gran # (Auto) (0.01-0.20) K/uL PT 12.1 H (9.0-12.0) Seconds INR 1.1 (0.9-1.1) APTT 28.5 (21.0-31.0) Seconds PTT Ratio 1.0 VBG pH 7.42 H (7.36-7.41) VBG pCO2 45 (38-50) mmHg VBG pO2 25 mmHg VBG HCO3 29 mmol/L VBG O2 Saturation < 60.0 % VBG Base Excess 4.0 mEq/L POC Sodium (135-144) mmol/L Sodium (136-145) mmol/L POC Potassium (3.3-5.0) mmol/L Potassium (3.5-5.1) mmol/L POC Chloride (101-112) mmol/L Chloride (98-107) mmol/L Carbon Dioxide (21-32) mmol/L POC Total CO2 (24-31) mmol/L Anion Gap (3-11) POC Anion Gap (16-25) mmol/L POC BUN (7-18) mg/dl BUN (6-23) mg/dl Creatinine (0.6-1.4) mg/dl POC Creatinine (0.6-1.3) mg/dl Est Cr Clr Drug Dosing ml/min Est GFR ( Amer) ml/min Est GFR (Non-Af Amer) ml/min BUN/Creatinine Ratio (10-20) Glucose (70-99(Fasting)) mg/dl POC Glucose (70-99) mg/dl POC Glucose (other) (70-99) mg/dl Lactate (0.4-2.0) mmol/L Calcium (8.6-10.3) mg/dl POC Ioniz Calcium Rafael (1.12-1.32) mmol/l Magnesium (1.7-2.4) mg/dl Total Bilirubin (0.2-1.0) mg/dl Direct Bilirubin (0-0.2) mg/dl AST (13-39) U/L ALT (7-52) U/L Alkaline Phosphatase (34-104) U/L Troponin I High Sens (0-20) pg/ml B-Natriuretic Peptide (0-100) pg/ml Total Protein (6.0-8.3) gm/dl Albumin (3.4-5.0) gm/dl Procalcitonin (0-0.5) ng/ml Adenovirus (PCR) Not Detected (NotDetected) B. pertussis DNA (PCR) Not Detected (NotDetected) B.parapertussis DNA PCR Not Detected (NotDetected) C. pneumoniae DNA (PCR) Not Detected (NotDetected) Coronavirus OC43 (PCR) Not Detected (NotDetected) Coronavirus HKU1 (PCR) Not Detected (NotDetected) Coronavirus 229E (PCR) Not Detected (NotDetected) SARS-CoV-2 (PCR) Not Detected (NotDetected) Coronavirus NL63 (PCR) Not Detected (NotDetected) Human Metapneumovir PCR Not Detected (NotDetected) Influenza Type A (PCR) Not Detected (NotDetected) Influenza Type B (PCR) Not Detected (NotDetected) M. pneumoniae (PCR) Not Detected (NotDetected) Parainfluenza 1 (PCR) Not Detected (NotDetected) Parainfluenza 2 (PCR) Not Detected (NotDetected) Parainfluenza 3 (PCR) Not Detected (NotDetected) Parainfluenza 4 (PCR) Not Detected (NotDetected) RSV (PCR) Not Detected (NotDetected) Entero/Rhino (PCR) Not Detected (NotDetected) 11/08/22 Range/Units 23:06 WBC (4.8-10.8) K/ul RBC (4.70-6.10) M/uL Hgb (14.0-18.0) g/dl POC Hgb 11.6 L (14.0-18.0) g/dl Hct (42.0-52.0) % POC Hct 34 L (42-52) % MCV (80.0-100.0) fL MCH (25.0-34.0) pg MCHC (32.0-36.0) g/dL RDW Std Deviation (36.4-46.3) fL RDW Coeff of Adrian (11.5-14.5) % Plt Count (130-400) K/uL MPV (9.4-12.4) fL Immature Gran % (Auto) % Neut % (Auto) % Lymph % (Auto) % [place] % (Auto) % Eos % (Auto) % Baso % (Auto) % Neut # (Auto) (1.40-6.50) K/uL Lymph # (Auto) (1.2-3.4) K/uL [place] # (Auto) (0.11-0.59) K/uL Eos # (Auto) (0-0.50) K/uL Baso # (Auto) (0-0.2) K/uL Immature Gran # (Auto) (0.01-0.20) K/uL PT (9.0-12.0) Seconds INR (0.9-1.1) APTT (21.0-31.0) Seconds PTT Ratio VBG pH (7.36-7.41) VBG pCO2 (38-50) mmHg VBG pO2 mmHg VBG HCO3 mmol/L VBG O2 Saturation % VBG Base Excess mEq/L POC Sodium 127 L (135-144) mmol/L Sodium (136-145) mmol/L POC Potassium 4.8 (3.3-5.0) mmol/L Potassium (3.5-5.1) mmol/L POC Chloride 91 L (101-112) mmol/L Chloride (98-107) mmol/L Carbon Dioxide (21-32) mmol/L POC Total CO2 25 (24-31) mmol/L Anion Gap (3-11) POC Anion Gap 17.0 (16-25) mmol/L POC BUN 31 H (7-18) mg/dl BUN (6-23) mg/dl Creatinine (0.6-1.4) mg/dl POC Creatinine 2.9 H (0.6-1.3) mg/dl Est Cr Clr Drug Dosing ml/min Est GFR ( Amer) ml/min Est GFR (Non-Af Amer) ml/min BUN/Creatinine Ratio (10-20) Glucose (70-99(Fasting)) mg/dl POC Glucose (70-99) mg/dl POC Glucose (other) > 700 H* (70-99) mg/dl Lactate (0.4-2.0) mmol/L Calcium (8.6-10.3) mg/dl POC Ioniz Calcium Rafael 1.04 L (1.12-1.32) mmol/l Magnesium (1.7-2.4) mg/dl Total Bilirubin (0.2-1.0) mg/dl Direct Bilirubin (0-0.2) mg/dl AST (13-39) U/L ALT (7-52) U/L Alkaline Phosphatase (34-104) U/L Troponin I High Sens (0-20) pg/ml B-Natriuretic Peptide (0-100) pg/ml Total Protein (6.0-8.3) gm/dl Albumin (3.4-5.0) gm/dl Procalcitonin (0-0.5) ng/ml Adenovirus (PCR) (NotDetected) B. pertussis DNA (PCR) (NotDetected) B.parapertussis DNA PCR (NotDetected) C. pneumoniae DNA (PCR) (NotDetected) Coronavirus OC43 (PCR) (NotDetected) Coronavirus HKU1 (PCR) (NotDetected) Coronavirus 229E (PCR) (NotDetected) SARS-CoV-2 (PCR) (NotDetected) Coronavirus NL63 (PCR) (NotDetected) Human Metapneumovir PCR (NotDetected) Influenza Type A (PCR) (NotDetected) Influenza Type B (PCR) (NotDetected) M. pneumoniae (PCR) (NotDetected) Parainfluenza 1 (PCR) (NotDetected) Parainfluenza 2 (PCR) (NotDetected) Parainfluenza 3 (PCR) (NotDetected) Parainfluenza 4 (PCR) (NotDetected) RSV (PCR) (NotDetected) Entero/Rhino (PCR) (NotDetected) Administered Medications Insulin Human Regular 250 (units/ Sodium Chloride) 250 mls @ 3.4 mls/hr IV . Q24H VANDANA; Protocol Stop: 12/08/22 23:29 Last Admin: 11/08/22 23:59 Dose: 3.4 units/hr, 3.4 mls/hr Documented By: YOHANA Co-signed By: JOSEPH Discontinued Medications Piperacillin Sod/Tazobactam (Sod 4.5 gm/ Dextrose) 120 mls @ 200 mls/hr IV NOW ONE; Protocol Stop: 11/08/22 23:07 Last Infusion: 11/08/22 23:45 Dose: 0 mls/hr Documented By: Admin: 11/08/22 23:09 Dose: 200 mls/hr Documented By: YOHANA Sodium Chloride (Nss 1000ml) 500 mls @ 999 mls/hr IV .Q31M ONE Stop: 11/08/22 23:04 Last Infusion: 11/08/22 23:30 Dose: 0 mls/hr Documented By: Admin: 11/08/22 22:59 Dose: 999 mls/hr Documented By: YOHANA Insulin Human Regular (Novolin-R Bolus From Bag) 3.5 units IV NOW STA Stop: 11/08/22 23:49 Last Admin: 11/09/22 00:00 Dose: 3.5 units Documented By: YOHANA Co-signed By: JOSEPH Piperacillin Sod/Tazobactam Sod (Piperacillin/Tazobactam 4.5 Gm/120ml D5w) Confirm Administered Dose 4.5 gm IV .STK-MED ONE Stop: 11/08/22 23:09 Last Admin: 11/08/22 23:13 Dose: Not Given Documented By: YOHANA Discharge Plan Visit Data Chief Complaint: Hyperglycemia Stated Complaint: HYPERGLYCEMIA ED Provider: Bronson Ji Discharge Problem: Acute hypoxemic respiratory failure, Acute hyperglycemia, CKD (chronic kidney disease), Anemia Forms Stand Alone Forms: My [facility] Prescriptions Prescriptions: No Action insulin glargine [Lantus Solostar U-100 Insulin] 100 unit/mL (3 mL) insulin pen See Rx Instructions .ROUTE .COMPLEX Rx Instructions: TAKES 52 UNITS QAM, THEN 44 UNITS QPM. Per he uses 50 units in evening levothyroxine 88 mcg tablet 88 mcg PO DAILYBB Qty: 90 albuterol sulfate 90 mcg/actuation HFA aerosol inhaler 2 puffs inhalation QID PRN (Reason: shortness of breath or wheezing) potassium chloride 20 mEq tablet extended release 20 meq PO BID Rx Instructions: TAKE THIS MED WHEN TAKING BUMETANIDE. DO NOT TAKE THIS MED IF NOT TAKING BUMETANIDE. glipizide 10 mg tablet 10 mg PO BID Rx Instructions: TAKE 15-30 MINUTES PRIOR TO A MEAL. losartan 25 mg tablet 25 mg PO QAM finasteride 5 mg tablet 5 mg PO HS tamsulosin 0.4 mg Capsule 0.8 mg PO HS 30 Days Qty: 60 0RF Eliquis 2.5 mg Tablet 2.5 mg PO BID 30 Days Qty: 60 0RF gabapentin 100 mg Capsule See Rx Instructions .ROUTE .COMPLEX Rx Instructions: 100 mg orally; TAKE 100 MG QAM, THEN 300 MG QPM. pantoprazole 20 mg tablet,delayed release (DR/EC) 20 mg PO BID aspirin 81 mg Tablet,Delayed Release (Dr/Ec) 81 mg PO DAILY bumetanide 2 mg Tablet 2 mg PO BID clonazepam 1 mg tablet 1 mg PO BID acetaminophen [Tylenol Extra Strength] 500 mg Tablet 1,000 mg PO Q6H PRN (Reason: PAIN/FEVER) Rx Instructions: RARELY USES ACCORDING TO . diphenhydramine HCl [Benadryl] 25 mg Capsule 25 mg PO BID PRN (Reason: NEEDED ) fluticasone propion-salmeterol 500-50 mcg/dose Blister With Device 1 inh INHALATION BID metoprolol tartrate 50 mg Tablet 25 mg PO BID multivitamin with minerals Tablet 1 tab PO DAILY rosuvastatin 20 mg Tablet 20 mg PO HS PreserVision AREDS 2,148 mcg-113 mg-45 mg-17.4mg Tablet 1 tab PO DAILY tiotropium bromide 2.5 mcg/actuation Mist 2 puff INHALATION DAILY Referrals Referrals: Cory Nunez DO [Primary Care Provider] -
[2022-11-08] MEDS ORDERED: PIPERACILLIN/TAZOBACTAM 4.5 GM in DEXTROSE 5% 100 ML IV ONE (22:32)
[2022-11-08] MEDS ORDERED: SODIUM CHLORIDE 0.9% 1000ML 500 ML IV ONE (22:34)
[2022-11-08] MEDS ORDERED: PIPERACILLIN/TAZOBACTAM 4.5 GM/120ML D5W IV ONE (23:08)
[2022-11-08 23:11] LABS: HCO3 VBG 29 mmol/L; Oxygen Saturation VBG < 60.0 %; PCO2 VBG 45 mmHg (38-50); PO2 VBG 25 mmHg; pH VBG 7.42 (7.36-7.41)
[2022-11-08 23:19] LABS: iSTAT Blood Urea Nitrogen 31 mg/dl (7-18); iSTAT Carbon Dioxide 25 mmol/L (24-31); iSTAT Chloride 91 mmol/L (101-112); iSTAT Creatinine 2.9 mg/dl (0.6-1.3); iSTAT Glucose > 700 mg/dl (70-99); iSTAT Hematocrit 34 % (42-52); iSTAT Hemoglobin 11.6 g/dl (14.0-18.0); iSTAT Ionized Calcium 1.04 mmol/l (1.12-1.32); iSTAT Potassium 4.8 mmol/L (3.3-5.0); iSTAT Sodium 127 mmol/L (135-144)
[2022-11-08] MEDS ORDERED: INSULIN PROTOCOL GOAL RANGE ONE (23:25)
[2022-11-08] MEDS ORDERED: STAT IV STA (23:25)
[2022-11-08] MEDS ORDERED: SEVERE STRESS LEVEL ONE (23:25)
[2022-11-08] MEDS ORDERED: INSULIN REGULAR 250 UNITS in SODIUM CHLORIDE 0.9% 247.5 ML IV SCH (23:30)
[2022-11-08 23:32] LABS: Basophils # (auto) 0.02 K/uL (0-0.2); Basophils % (auto) 0.3 %; Eosinophils # (auto) 0.01 K/uL (0-0.50); Eosinophils % (auto) 0.1 %; Hematocrit (blood only) 28.6 % (42.0-52.0); Hemoglobin 9.8 g/dl (14.0-18.0); Immature Granulocytes # (auto) 0.11 K/uL (0.01-0.20); Immature Granulocytes % (auto) 1.6 %; Lymphocytes % (auto) 17.1 %; Mean Corpuscular Hemoglobin 32.1 pg (25.0-34.0); Mean Corpuscular Hgb Conc 34.3 g/dL (32.0-36.0); Mean Corpuscular Volume 93.8 fL (80.0-100.0); Mean Platelet Volume 10.2 fL (9.4-12.4); Monocytes # (auto) 0.72 K/uL (0.11-0.59); Monocytes % (auto) 10.3 %; Neutrophils # (auto) 4.95 K/uL (1.40-6.50); Neutrophils % (auto) 70.6 %; Platelet Count 125 K/uL (130-400); RDW Coefficient of Variation 14.2 % (11.5-14.5); RDW Standard Deviation 47.9 fL (36.4-46.3); Red Blood Count 3.05 M/uL (4.70-6.10); White Blood Count 7.01 K/ul (4.8-10.8)
[2022-11-08 23:39] LABS: Albumin Level 2.9 gm/dl (3.4-5.0); BUN Creatinine Ratio 12.1 (10-20); Bilirubin Direct 0.2 mg/dl (0-0.2); Bilirubin,Total 0.9 mg/dl (0.2-1.0); Calcium 8.2 mg/dl (8.6-10.3); Est GFR (African American) 22.5 ml/min; Est GFR (Non-African American) 19.4 ml/min; Magnesium 1.9 mg/dl (1.7-2.4); Potassium 4.7 mmol/L (3.5-5.1); Total Protein 6.2 gm/dl (6.0-8.3); Troponin I High Sensitivity 29.1 pg/ml (0-20)
[2022-11-08 23:44] LABS: INR 1.1 (0.9-1.1); Partial Thromboplastin Time 28.5 Seconds (21.0-31.0); Prothrombin Time 12.1 Seconds (9.0-12.0)
[2022-11-08] MEDS ORDERED: CARBOHYDRATES FOR HYPOGLYCEMIA PO PRN (23:45)
[2022-11-08] MEDS ORDERED: DEXTROSE 50% 50 ML SYRINGE IV PRN (23:45)
[2022-11-08] MEDS ORDERED: GLUCAGON FOR INJ 1 MG VIAL IM PRN (23:45)
[2022-11-08] MEDS ORDERED: GLUCOSE 10 TAB/TUBE PO PRN (23:45)
[2022-11-08] MEDS ORDERED: GLUCOSE 40% GEL 15 GM TUBE PO PRN (23:45)
[2022-11-08] MEDS ORDERED: NovoLIN-R BOLUS FROM BAG IV STA (23:48)
[2022-11-09 00:01] LABS: Adenovirus PCR Not Detected (NotDetected); Bordetella parapertussis PCR Not Detected (NotDetected); Bordetella pertussis PCR Not Detected (NotDetected); Chlamydia pneumoniae PCR Not Detected (NotDetected); Coronavirus 229E PCR Not Detected (NotDetected); Coronavirus CoV-2 (COVID19)PCR Not Detected (NotDetected); Coronavirus HKU1 PCR Not Detected (NotDetected); Coronavirus NL63 PCR Not Detected (NotDetected); Coronavirus OC43PCR Not Detected (NotDetected); Human Metapneumovirus PCR Not Detected (NotDetected); Influenza A PCR Not Detected (NotDetected); Influenza B PCR Not Detected (NotDetected); Mycoplasma pneumoniae PCR Not Detected (NotDetected); Parainfluenza Virus 1 PCR Not Detected (NotDetected); Parainfluenza Virus 2 PCR Not Detected (NotDetected); Parainfluenza Virus 3 PCR Not Detected (NotDetected); Parainfluenza Virus 4 PCR Not Detected (NotDetected); Respiratory Syncytial VirusPCR Not Detected (NotDetected); Rhinovirus/Enterovirus PCR Not Detected (NotDetected)
--- NOTE | 2022-11-09 00:01 | History & Physical Report ---
Date of Service November 09, 2022 Assessment & Plan (1) Acute hyperglycemia: Plan: Patient is poor historian but reports poor oral intake for last 3 days; has been on Lantus 20u BID since 10/29, coupled with home glipizide 10mg BID BSG 747 on admission; HHS in setting of suspected infection, serum Osm pending Potassium 4.8 pH normal, no elevated anion gap Insulin gtt started by ER provider, continue Will start NSS at 100cc/hr (decreased rate due to Hx CHF) for suspected hypovolemia, close fluid monitoring Glycemic management consult appreciated in this patient for frequent fluid adjustment/insulin gtt -> basal/bolus transition as BSG normalizes through the night (2) Sepsis: Plan: Differential includes skin/soft tissue (chronic bilateral LE wounds), intraabdominal (recent nausea and emesis), lung (? hazy LLL, elevated procal) Hypoxia on admission requiring 2LNC, does not appear fluid overloaded Wound care nursing consulted for BL LE blistering wounds UCx and BCx ordered, pending Received Zosyn in ER, continue this and add vancomycin for possible skin/soft tissue infection CT Chest noncon and CTAP noncon ordered to further evaluate for other etiologies (3) Acute kidney injury superimposed on CKD: Plan: Creatinine 2.8, with Hx CKD III with baseline creatine~2.0 Recent admission for ARF requiring temporarily dialysis, has follow up with Nephro tomorrow outpatient Nephrology consulted given JUDI on CKD and given now inpatient status IV fluids to be given, hold home diuresis and losartan temporarily, close monitoring of intake/output (patient refuses Lopez catheter at this time) (4) Chronic kidney disease, stage III (moderate): Plan: see above (5) Hypothyroidism: Plan: Continue home levothyroxine (6) Hypertension: Plan: Holding home losartan Continue metoprolol (7) Paroxysmal atrial fibrillation: Plan: On chronic Eliquis therapy and metoprolol, continue these Not in AFIB RVR on admission (8) Dyslipidemia: Plan: Continue statin (9) CAD (coronary artery disease): Plan: Continue statin, beta mark, aspirin Hold LILLIANA for JUDI (10) Diabetes: Plan: see above, has been difficult to control BSGs outpatient however do suspect somewhat in the setting of infectious process Home regimen previously 50u BID, then decreased on last discharge 10/26, has been on Lantus 20u BID since 10/29 Insulin gtt for now, appreciate glycemic consult (11) Cellulitis: Plan: Possible, covering for skin/soft tissue gilma (12) COPD (chronic obstructive pulmonary disease): Plan: History of, not typically on supplemental oxygen No evidence of wheezing to suggest COPD exacerbation this admission Continue home inhalers Wean oxygen as tolerated, goal range 88-92%; two step if necessary before discharge Plan Anticipate need for PT and OT evaluation for dispo planning. On last admission was denied rehab inpatient services by his insurance, and this admission presents with profound weakness from recent discharge, which I suspect may require rehab services this time. Will ask PT and OT for their assessment when patient is more clinically well. History of Present Illness Chief Complaint: Hyperglycemia, illness Primary Care Provider: Cory Nunez DO 87-year-old male past medical history significant for CKD stage III, recent urethral stricture that was dilated, type 2 diabetes, COPD, hypertension, hypothyroidism, CAD, HFpEF on home Bumex therapy presented to the ER for at least 3 days of confusion, poor appetite, weakness, intermittent nausea. Has had two falls at home due to weakness without LOC without head injury, but has needed help from EMS services to get back up. No noted fevers at home per . reports BSGs the last few days have ranged 170-250, and that he has been on Lantus 20u BID since 10/29 along with his glipizide 10mg BID. She notes very poor appetite in the last 3 days (one day having a few bites of oatmeal, a few bites of grilled cheese, and basically nothing else for example). In the ER was noted to be mildly hypoxic requiring 2L nasal cannula, febrile to 38.5, mildly tachycardic in the 90s, BP 100s. Notable for normal WBC count, hemoglobin 9.8 with normal MCV (relatively chronic), platelets 125, sodium 126 (corrected to 136), BSG 747, creatinine 2.8 (baseline creatinine 2.0), troponin 29.1, elevated BNP, procalcitonin 1.06. BioFire negative. Allergies Allergy/AdvReac Type Severity Reaction Status Date / Time ciprofloxacin [From Cipro] AdvReac Severe Verified 11/02/22 10:00 semaglutide [From Ozempic] AdvReac Severe NAUSEA/VOMI Verified 11/02/22 10:00 TING/ANOREX IA amlodipine AdvReac Intermediate SWELLING Verified 11/02/22 10:00 OF ANKLES ropinirole AdvReac Intermediate CHANGE IN Verified 11/02/22 10:00 MENTAL STATUS Home Medications Medication Instructions Recorded Confirmed Type albuterol sulfate 90 mcg/actuation 2 puffs inhalation QID PRN 01/10/19 11/08/22 History aerosol inhaler shortness of breath or wheezing levothyroxine 88 mcg tablet 88 mcg PO DAILYBB #90 tabs 01/10/19 11/08/22 History potassium chloride 20 mEq 20 meq PO BID 01/10/19 11/08/22 History tablet,extended release finasteride 5 mg tablet 5 mg PO HS 04/23/19 11/08/22 History losartan 25 mg tablet 25 mg PO QAM 04/23/19 11/08/22 History gabapentin 100 mg capsule See Rx Instructions .Route .COMPLEX 12/16/20 11/08/22 History aspirin 81 mg tablet,delayed 81 mg PO DAILY 10/11/21 11/08/22 History release pantoprazole 20 mg tablet,delayed 20 mg PO BID 02/07/22 11/08/22 History release glipizide 10 mg tablet 10 mg PO BID 03/29/22 11/08/22 History insulin glargine 100 unit/mL (3 See Rx Instructions .Route .COMPLEX 04/12/22 11/08/22 History mL) subcutaneous pen (Lantus Solostar U-100 Insulin) acetaminophen 500 mg tablet 1,000 mg PO Q6H PRN PAIN/FEVER 05/28/22 11/08/22 History (Tylenol Extra Strength) bumetanide 2 mg tablet 2 mg PO BID 05/28/22 11/08/22 History clonazepam 1 mg tablet 1 mg PO BID 05/28/22 11/08/22 History diphenhydramine HCl 25 mg capsule 25 mg PO BID PRN NEEDED 05/28/22 11/08/22 History (Benadryl) fluticasone 500 mcg-salmeterol 50 1 inh inhalation BID 05/28/22 11/08/22 History mcg/dose blistr powdr for inhalation metoprolol tartrate 50 mg tablet 25 mg PO BID 05/28/22 11/08/22 History multivitamin with minerals 1 tab PO DAILY 05/28/22 11/08/22 History rosuvastatin 20 mg tablet 20 mg PO HS 05/28/22 11/08/22 History tiotropium bromide 2.5 2 puff inhalation DAILY 05/28/22 11/08/22 History mcg/actuation mist for inhalation vitamins A,C,S-ilwi-egiyjk 2,148 1 tab PO DAILY 05/28/22 11/08/22 History mcg-113 mg-45 mg-17.4 mg tablet (PreserVision AREDS) apixaban 2.5 mg tablet (Eliquis) 2.5 mg PO BID 30 days #60 tabs 10/26/22 11/08/22 Rx tamsulosin 0.4 mg capsule 0.8 mg PO HS 30 days #60 caps 10/26/22 11/08/22 Rx Past Med/Surg History Medical History Acute bronchopneumonia Acute urinary retention [id number]-zq-lihibsb kidney injury AMS (altered mental status) Anxiety Aortic stenosis Mild per 03/06/19 stress ECHO Asthma Uses rescue inhaler a couple times per week Atrial fibrillation Follows with Dr. Gr Bacteremia Blindness of left eye BPH (benign prostatic hyperplasia) CAD (coronary artery disease) Angioplasty ~1993, CABG x 3 2013 (GALINDO to LAD, SVG to PDA, SVG to OM) CHF (congestive heart failure) Chronic kidney disease Follows with Dr. Dixon Chronic obstructive pulmonary disease Diabetes Type 2 IDDM Foot ulcer GERD (gastroesophageal reflux disease) Herpes zoster Hiatal hernia Hyperlipidemia Hypertension Hypervolemia Hypothyroidism Leukocytosis Macular degeneration Myocardial infarct ~1993 Peripheral neuropathy Rupture of left distal biceps tendon hx - no surgery Secondary hyperparathyroidism (of renal origin) SIRS (systemic inflammatory response syndrome) Surgical History Fusion of spine lumbar History of appendectomy History of cardiac cath with angioplasty ~1993 ([facility]) & 2013 ([facility]) History of cataract surgery bilateral History of coronary artery bypass graft x3 vessels ([facility] 2013) with epicardial RFA of pulmonary veins and left atrial appendage ligation History of revision of total replacement of right knee joint History of tonsillectomy History of tooth extraction History of total left knee replacement History of total right knee replacement Hx of colonoscopy Previous back surgery (08/26/12) S/P cholecystectomy Family History Brother Heart disease Diabetes Sister Cancer Mother Diabetes Father Diabetes Other Hypertension Kidney disease Social History Smoking Status: Former smoker Tobacco Type: Cigarettes Second Hand Exposure: No; Do You Dip or Chew Tobacco: No; Hx Alcohol Use: No Hx Substance Use: No Preferred Language: Icelandic Communication Ability: Effective Visual Impairment: Partially Limited Salesperson Corsets Required: No Beliefs That Will Affect Care: Protestant Protestant Beliefs: Pt. states he would not want any machines to keep him alive including dialysis. marital status: Current Living Situation: Spouse Current Living Situation Comment: lives at home with current occupational status: retired Feels Safe at Home: Yes Assistive Devices: Cane, Denture - Upper, Denture - Lower, Glasses, Scooter/Electric Scooter, Walker and Wheelchair Review of Systems Review of Systems: All systems reviewed & are unremarkable except as noted in Subjective Physical Exam Constitutional: WD/WN, vitals as above Respiratory: normal respiratory effort, lungs CTA bilaterally Cardiovascular: HR irregularly irregular, systolic murmur 2/6, 2+ pitting edema to 3/4 up betts Gastrointestinal (Abdomen): normal bowel sounds, soft, nontender, no hepatosplenomegaly Skin: several bandages in place to lower extremities left anterior betts wound with skin erosion, no fluctuance or crepitus RLE with blistering wound, clear fluid within blister Mild erythema surrounding both of these wound areas Psychiatric: A+Ox3, euthymic affect Results & Data Results & Data Vital Signs (Past 12 Hours) Vital Signs Temp Pulse Resp BP Pulse Ox O2 Del Method O2 Flow Rate 11/08/22 22:32 93 H 24 94 Nasal Cannula 2 11/08/22 22:24 95 H 11/08/22 22:23 38.5 C H 95 H 19 105/67 88 L Room Air PG Care Time/CCT Total # of Minutes Spent Total Time Spent with Patient: Total time spent is greater than 50% in coordination of care (as documented) at patient's floor/unit and/or counseling patient: Coding Level of Care Code 01338 INT INP/OBS CARE 3/75MIN Diagnoses Acute hyperglycemia R73.9 Sepsis A41.9 Acute kidney injury superimposed on CKD N17.9; N18.9 Chronic kidney disease, stage III (moderate) N18.30 Hypothyroidism E03.9 Hypothyroidism type: unspecified Hypertension I10 Hypertension type: essential hypertension Paroxysmal atrial fibrillation I48.0 Dyslipidemia E78.5 CAD (coronary artery disease) I25.10 Associated angina: without angina Coronary Disease-Associated Artery/Lesion type: [place] artery [place] vs. transplanted heart: [place] heart Diabetes E11.65; Z79.4 Diabetes mellitus complication status: with hyperglycemia Diabetes mellitus group home insulin use: with termite control servicer use Diabetes mellitus type: type 2 Cellulitis L03.119 Laterality: unspecified laterality Site of cellulitis: extremity Site of cellulitis of extremity: lower extremity COPD (chronic obstructive pulmonary disease) J44.9 COPD type: unspecified COPD (5) Hypothyroidism Hypothyroidism type: unspecified Qualified Code(s): E03.9 - Hypothyroidism, unspecified (6) Hypertension Hypertension type: essential hypertension Qualified Code(s): I10 - Essential (primary) hypertension (9) CAD (coronary artery disease) Associated angina: without angina Coronary Disease-Associated Artery/Lesion type: [place] artery [place] vs. transplanted heart: [place] heart Qualified Code (s): I25.10 - Atherosclerotic heart disease of [place] coronary artery without angina pectoris (10) Diabetes Diabetes mellitus complication status: with hyperglycemia Diabetes mellitus group home insulin use: with termite control servicer use Diabetes mellitus type: type 2 Qualified Code(s): E11.65 - Type 2 diabetes mellitus with hyperglycemia; Z79.4 - termite control servicer (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 (11) Cellulitis Laterality: unspecified laterality Site of cellulitis: extremity Site of cellulitis of extremity: lower extremity Qualified Code(s): L03.119 - Cellulitis of unspecified part of limb (12) COPD (chronic obstructive pulmonary disease) COPD type: unspecified COPD Qualified Code(s): J44.9 - Chronic obstructive pulmonary disease, unspecified
[2022-11-09] MEDS ORDERED: SODIUM CHLORIDE 0.9% 1000ML 1,000 ML IV SCH (01:00)
[2022-11-09] MEDS ORDERED: HHS GOAL RANGE 250-350 mg/dl ONE (01:03)
--- NOTE | 2022-11-09 01:38 | CT Scan Report ---
Exam(s): CT ABDOMEN + PELVIS Without Contrast EXAM: CT Abdomen and Pelvis Without Intravenous Contrast CLINICAL HISTORY: Reason for exam: nausea, sepsis. TECHNIQUE: Axial computed tomography images of the abdomen and pelvis without intravenous contrast. Automated exposure control was utilized for the study. A dose lowering technique was utilized adhering to the principles of ALARA. COMPARISON: Dated 10/08/22 FINDINGS: Lung bases: Trace bilateral effusions and bibasilar atelectasis. ABDOMEN: Liver: Unremarkable. Gallbladder and bile ducts: Status post cholecystectomy. No ductal dilation. Pancreas: Unremarkable. No ductal dilation. Spleen: Unremarkable. No splenomegaly. Adrenals: Unremarkable. No mass. Kidneys and ureters: There is moderate bilateral perinephric stranding. No obstructing stones. No hydronephrosis. Stomach and bowel: Unremarkable. No obstruction. No mucosal thickening. PELVIS: Appendix: No findings to suggest acute appendicitis. Bladder: Unremarkable. No stones. Reproductive: Status post prostatectomy. ABDOMEN and PELVIS: Intraperitoneal space: Unremarkable. No free air. No significant fluid collection. Bones/joints: Extensive degenerative disease of the lumbar spine. No acute fracture. No dislocation. Soft tissues: Subcutaneous changes in the right anterior abdominal wall suggesting injection sites. Vasculature: There is diffuse atherosclerotic calcification of the aorta and its major branch vessels. Partially visualized coronary atherosclerotic disease. No abdominal aortic aneurysm. Lymph nodes: Unremarkable. No enlarged lymph nodes. IMPRESSION: No acute findings in the abdomen or pelvis. Electronically signed by: Panda Lagunas MD 11/09/22 01:37 AM
--- NOTE | 2022-11-09 01:38 | CT Scan Report ---
Exam(s): CT CHEST Without Contrast EXAM: CT Chest Without Intravenous Contrast CLINICAL HISTORY: Reason for exam: hypoxia, sepsis. TECHNIQUE: Axial computed tomography images of the chest without intravenous contrast. Automated exposure control was utilized for the study. A dose lowering technique was utilized adhering to the principles of ALARA. COMPARISON: No relevant prior studies available. FINDINGS: Lungs: Bibasilar parenchymal atelectasis. Pleural space: Trace bilateral effusions. No pneumothorax. Heart: Moderate cardiomegaly. No significant pericardial effusion. No significant coronary artery calcifications. Bones/joints: Status post sternotomy. Degenerative disease of the thoracic spine. Soft tissues: Unremarkable. Vasculature: Extensive aortic calcification. No thoracic aortic aneurysm. Lymph nodes: Unremarkable. No enlarged lymph nodes. Other findings: Small scattered calcified granulomas. IMPRESSION: Trace bilateral effusions without definite intrathoracic infection. Electronically signed by: Panda Lagunas MD 11/09/22 01:37 AM
[2022-11-09 01:41] LABS: BUN Creatinine Ratio 11.6 (10-20); Calcium 7.8 mg/dl (8.6-10.3); Creatinine Clr Calc Pharmacy 19.6 ml/min; Magnesium 1.9 mg/dl (1.7-2.4); Phosphorus 3.2 mg/dl (2.5-4.9); Potassium 4.3 mmol/L (3.5-5.1)
[2022-11-09] MEDS ORDERED: ALBUTEROL HFA 8 GM INHALER INH PRN (02:22)
[2022-11-09] MEDS ORDERED: POLYETHYLENE (MIRALAX) 17 GM PACK PO PRN (02:22)
[2022-11-09] MEDS ORDERED: PHARMACY GLYCEMIC MGMT CONSULT PRN (02:22)
[2022-11-09] MEDS ORDERED: VANCOMYCIN CONSULT ACTIVE PRN (02:22)
[2022-11-09] MEDS ORDERED: VANCOMYCIN HCL 1,750 MG in SODIUM CHLORIDE 0.9% 500 ML IV ONE (02:45)
[2022-11-09] MEDS: PLASMA-LYTE A 1,000 ML IV SCH ×2 (05:03→20:57)
[2022-11-09 05:48] LABS: Basophils # (auto) 0.02 K/uL (0-0.2); Basophils % (auto) 0.3 %; Eosinophils # (auto) 0.01 K/uL (0-0.50); Eosinophils % (auto) 0.2 %; Hemoglobin 8.6 g/dl (14.0-18.0); Immature Granulocytes % (auto) 1.6 %; Lymphocytes # (auto) 1.31 K/uL (1.2-3.4); Lymphocytes % (auto) 20.4 %; Mean Corpuscular Hemoglobin 31.7 pg (25.0-34.0); Mean Corpuscular Hgb Conc 34.4 g/dL (32.0-36.0); Mean Corpuscular Volume 92.3 fL (80.0-100.0); Monocytes # (auto) 0.64 K/uL (0.11-0.59); Neutrophils # (auto) 4.33 K/uL (1.40-6.50); Neutrophils % (auto) 67.5 %; Platelet Count 119 K/uL (130-400); RDW Coefficient of Variation 14.2 % (11.5-14.5); RDW Standard Deviation 47.8 fL (36.4-46.3); Red Blood Count 2.71 M/uL (4.70-6.10); White Blood Count 6.41 K/ul (4.8-10.8)
[2022-11-09] MEDS ORDERED: PIPERACILLIN/TAZOBACTAM 4.5 GM in DEXTROSE 5% 100 ML IV SCH (06:00)
[2022-11-09] MEDS: LEVOTHYROXINE SODIUM 88 MCG TABLET PO SCH (06:02)
[2022-11-09 06:10] LABS: BUN Creatinine Ratio 12.2 (10-20); Calcium 7.9 mg/dl (8.6-10.3); Creatinine Clr Calc Pharmacy 20.6 ml/min; Est GFR (African American) 23.4 ml/min; Est GFR (Non-African American) 20.2 ml/min; Phosphorus 3.3 mg/dl (2.5-4.9); Potassium 3.8 mmol/L (3.5-5.1)
--- NOTE | 2022-11-09 06:54 | XRay Report ---
XR chest 1V portable HISTORY: 87 years-old Male Sepsis acute sepsis COMPARISON: Chest CT 11/09/2022 TECHNIQUE: AP view of the chest FINDINGS: Cardiac silhouette is enlarged. Prior median sternotomy with a few superior fractured wires. Trace pl eural effusions with mild subsegmental bibasilar airspace opacities. No pneumothorax or overt pulmona ry edema. Bones appear grossly intact. IMPRESSION: 1. Cardiomegaly without pulmonary edema. 2. Subsegmental bibasilar opacities suggestive of atelectasis versus pneumonitis. ACT 112: Negative or not required by law. The above report was generated using voice recognition software. It may contain grammatical, syntax o r spelling errors. Electronically signed by: Pj Fernández M.D. 11/09/2022 6:53 AM
--- NOTE | 2022-11-09 07:22 | Hospitalist Progress Note ---
Date of Service November 09, 2022 Assessment & Plan (1) Hyperosmolar hyperglycemic state (HHS): (2) Acute kidney injury superimposed on CKD: (3) Chronic kidney disease, stage 4 (severe): (4) Sepsis: (5) Hypothyroidism: (6) Hypertension: (7) Paroxysmal atrial fibrillation: (8) Dyslipidemia: (9) CAD (coronary artery disease): (10) Diabetes: (11) COPD (chronic obstructive pulmonary disease): (12) CHF (congestive heart failure): Plan Summary: Aj is an 87 y/o M with PMHx of diabetes mellitus type 2 (Lantus 20 units BID since 10/29/22 with glipizide 10mg BID), paroxysmal AFIB on low-dose Eliquis, CKD stage III, recent urethral stricture that was dilated, COPD, hypertension, hypothyroidism, CAD, HFpEF on home Bumex therapy presented to the ER for at least 3 days of confusion, poor appetite, weakness, intermittent nausea. He had two falls at home due to weakness without LOC without head injury. No noted fevers at home per . In the ER was noted to be mildly hypoxic (88%) requiring 2L nasal cannula, febrile to 38.5, mildly tachycardic in the 90s, BP 100s. Normal WBC count. Blood glucose 747.Creatinine 2.8 (baseline creatinine 2.0), troponin 29.1, elevated BNP, procalcitonin 1.06. BioFire negative. #Hyperosmolar hyperglycemic state -Potentially 2/2 superimposed infection and uncontrolled diabetes (HgbA1C from 10/12/22 was 11.5%) -BSG 747 on admission; HHS in setting of suspected infection, serum Osm 316 -Potassium, pH, anion gap normal -Continue Insulin gtt started in ER -Continue Plasma-Lyte 100cc/hr (decreased rate due to Hx CHF) for suspected hypovolemia, close fluid monitoring -Glycemic management consult appreciated in this patient for frequent fluid adjustment/insulin gtt -> basal/bolus transition as BSG normalizes through the night #Sepsis -Blood cultures x2 showing Enterococcus faecalis, will narrow Pip/Tazo and vancomycin to ampicillin. MRSA nares negative -CXR suggested atelectasis vs. pneumonitis -Otherwise CT chest noncon and CT abd/pelvis - no acute findings -Wound care nursing consulted for BL LE blistering wounds -Nina nephro: will need outpatient allergy testing (PCN, Cipro) due to 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 #Acute kidney injury superimposed on CKD stage IV -Creatinine 2.8, with Hx CKD III with baseline creatine 2.0, EGFR 29 cc/min -Recent admission for acute renal failure requiring temporarily dialysis, has follow up with [facility] nephrology -Nephrology consult appreciated: no need for dialysis as of now -Continue Plasma-Lyte, hold home diuretics and losartan temporarily -Close monitoring of intake/output (Lopez in place) #Chronic kidney disease, stage IV (severe): -see above #Diabetes mellitus type 2 -see above -Home regimen since 10/29 is Lantus 20u BID and glipizide 10mg BID -Decreased from 50u BID on last discharge 10/26 -Insulin gtt for now, appreciate glycemic consult #Heart failure with preserved ejection fraction -Closely monitor I/Os with Lopez -CXR did not show pulmonary edema -Holding home regimen: bumetanide 2mg PO BID, metoprolol, losartan -Last echo 03/24/22: LVEF 60-65%, mild aortic stenosis #Paroxysmal atrial fibrillation -Continue chronic low dose Eliquis therapy and metoprolol -ECG: sinus rhythm with 1st deg. AV block, left axis deviation, right bundle #Hypertension -Holding home losartan -Continue metoprolol #Hypothyroidism -Continue home levothyroxine #Dyslipidemia -Continue statin #CAD (coronary artery disease) -Continue statin, beta mark, aspirin -Hold LILLIANA for JUDI #Cellulitis -Possible, covering for skin/soft tissue gilma #COPD (chronic obstructive pulmonary disease) -No home oxygen requirement. Weaned off oxygen that was initiated on admission. -O2 goal 88-92% -Continue home inhalers: Breo Ellipta, Incruse Ellipta FENGI: NPO DVT prophylaxis: Eliquis, low dose Dispo: potentially rehab pending PT/OT evaluations Code status: DNR/DNI Admission and Anticipated Discharge Date Admission Date: November 09, 2022 Supervising Physician Co-Signing Physician Notes ATTESTATION I also saw the patient and confirmed aguayo portions of the history and exam. I agree with the impression and plan in the resident documentation, and as summarized below. Upon exam this morning, the patient is sleeping but awakens to voice. He does seem considerably tired, though this is not surprising as I think his admission through the emergency department kept him up most of the night. He has no complaints this morning EXAM 124/64, 81, 21, 36.3, 94% on room air Heart rate Respirations nonlabored Abdomen soft and nontender DATA Labs Hemoglobin 8.6, WBC 6.41, platelet count 119 BUN 31, creatinine 2.77 Electrolytes are within normal limits Imaging Chest CT upon admission showed trace bilateral pleural effusions without definitive intrathoracic infection. CT of the abdomen and pelvis showed no acute findings Chest x-ray showed cardiomegaly without pulmonary edema; subsegmental bibasilar opacities suggestive of atelectasis versus pneumonitis Micro Blood cultures drawn in the emergency department are now showing gram-positive cocci in chains, 2/2 bottles IMPRESSION & PLAN Sepsis/Gram-positive bacteremia, speciation pending Recent history of AIN presumed secondary to ciprofloxacin/cephalexin, temporary hemodialysis with renal recovery CKD, secondary to diabetes and hypertension Insulin-dependent diabetes Hemodynamically stable Continue ampicillin Appreciate nephrology consultation Await final cultures/likely consult ID in AM Additional per resident documentation Tracy Rocha does not report a subjective fever but has chills and is very fatigued. He has COPD and a wet cough but hasn't noticed any sputum production. He is not SOB and does not have a home oxygen requirement. He stopped smoking cigarettes about 30 years ago. He has diabetes, neuropathy of both feet, and checks his feet regularly for wounds. He has bandages for several wounds on both legs currently. He had a couple falls in the past several days leading up to his admission, without LOC or head trauma. No chest pain, palpitations, dysuria, diarrhea. Review of Systems Review of Systems: All systems reviewed & are unremarkable except as noted in HPI & below Physical Exam Physical Exam: Appearance: fatigued, ill-appearing, chills Respiratory: Nasal cannula Conversational dyspnea Wet cough during exam without sputum production Bilateral wheeze, no crackles Cardiovascular: Normal rate Irregularly irregular rhythm Pitting edema in lower extremities Extremities warm No cyanosis Gastrointestinal (Abdomen): Active bowel sounds No pain, rebound or guarding to palpation Skin: Several wound dressings in place to both legs. None have noticeable surrounding erythema or purulence outside of the border of the dressing No open wounds or nonhealing wounds on either foot Vertical, well healed surgical scars on both knees Neurologic: Alert, answering questions appropriately CN 2-12 intact except for vision loss in the left eye Strength 5/5 to hand premix concrete batcher, shoulder shrug, plantar flexion and dorsiflexion of both feet Genitourinary: Jessica had no output at the time of my exam Results & Data Results & Data Vital Signs (Past 12 Hours) Vital Signs Temp Pulse Pulse Resp BP BP Pulse Ox 11/09/22 07:16 79 11/09/22 02:33 11/09/22 02:31 97 H 11/09/22 02:22 11/09/22 02:11 36.8 C 93 H 18 121/68 95 11/09/22 01:31 87 20 115/52 L 92 11/09/22 00:08 89 23 113/60 93 11/08/22 22:32 93 H 24 94 11/08/22 22:24 95 H 11/08/22 22:23 38.5 C H 95 H 19 105/67 88 L O2 Del Method O2 Del Method O2 Flow Rate 11/09/22 07:16 11/09/22 02:33 Nasal Cannula 11/09/22 02:31 11/09/22 02:22 Nasal Cannula 11/09/22 02:11 Nasal Cannula 3 11/09/22 01:31 Nasal Cannula 2 11/09/22 00:08 Nasal Cannula 2 11/08/22 22:32 Nasal Cannula 2 11/08/22 22:24 11/08/22 22:23 Room Air (5) Hypothyroidism Hypothyroidism type: unspecified Qualified Code(s): E03.9 - Hypothyroidism, unspecified (6) Hypertension Hypertension type: essential hypertension Qualified Code(s): I10 - Essential (primary) hypertension (9) CAD (coronary artery disease) Associated angina: without angina Coronary Disease-Associated Artery/Lesion type: [place] artery [place] vs. transplanted heart: [place] heart Qualified Code(s): I25.10 - Atherosclerotic heart disease of [place] coronary artery without angina pectoris (10) Diabetes Diabetes mellitus complication status: with hyperglycemia Diabetes mellitus assisted insulin use: with termite treater helper use Diabetes mellitus type: type 2 Qualified Code(s): E11.65 - Type 2 diabetes mellitus with hyperglycemia; Z79.4 - USP (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 (11) COPD (chronic obstructive pulmonary disease) COPD type: unspecified COPD Qualified Code(s): J44.9 - Chronic obstructive pulmonary disease, unspecified (12) CHF (congestive heart failure) Heart failure chronicity: unspecified Heart failure type: unspecified Qualified Code(s): I50.9 - Heart failure, unspecified
[2022-11-09] MEDS ORDERED: NON-FORMULARY MEDICATION (Tiotropium Bromide 2.5 mcg/actuation Mist) INH SCH (09:00)
[2022-11-09] MEDS ORDERED: FLUTICASONE/SALMETEROL (ADVAIR) 500/50 INH 14 PUFF INH SCH (09:00)
[2022-11-09] MEDS: INSULIN ASPART PER UNIT CHARGE SC SCH ×5 (09:01→23:53)
[2022-11-09] MEDS: ASPIRIN 81 MG ECTAB PO SCH (09:08)
[2022-11-09] MEDS: APIXABAN 2.5 MG TAB PO SCH ×2 (09:09→20:53)
[2022-11-09] MEDS: METOPROLOL TARTRATE 25 MG TAB PO SCH ×2 (09:09→20:53)
[2022-11-09] MEDS: clonazePAM 1 MG TAB PO SCH ×2 (09:09→20:57)
[2022-11-09] MEDS: UMECLIDINIUM BROMIDE 62.5MCG/BLISTER 7 PUFFS/INHALER INH SCH (09:23)
[2022-11-09] MEDS: FLUTICASONE/VILANTEROL 200/25MCG 14 PUFFS/INHALER INH SCH (09:23)
--- NOTE | 2022-11-09 09:25 | Nephrology Consultation ---
Date of Consultation November 09, 2022 Assessment & Plan (1) Acute kidney injury: * JUDI/CKD likely reflective of severe hyperglycemia and intravascular volume depletion * Agree w/ insulin administration and cautious hydration * Electrolyte balance is acceptable. No acute indication for HD at this time * Monitor PRP, UO (2) Chronic kidney disease, stage 4 (severe): * CKD stage G4 (advanced impairment). Baseline Cr 2.0 w/ EGFR 29 cc/min. Urine sediment has been acellular. 11/18 renal US - R 10.9 cm, L 11.5 cm. No hydronephrosis. Primary Wing Coverer is Dr. Dixon. Renal impairment has been attributed to microvascular disease (3) Hypertension: * On Losartan, Metoprolol as outpatient * BP is currently acceptable * Hold Losartan due to JUDI/CKD (4) Hyperosmolar hyperglycemic state (HHS): * Agree w/ insulin administration and cautious hydration (5) Pneumonia: * CXR suggestive of bibasilar infiltrates * Primary service has prescribed Augmentin * 11/09/[address] was negative for pneumonia * If afebrile w/ normal WBC# tomorrow, consider stopping antibiotic therapy * Will need outpatient allergy testing (PCN, Cipro) due to h/o severe AIN during last hospitalization History of Present Illness Reason for Consultation: JUDI/CKD Attending Physician: Cory Nunez DO History of Present Illness Mr. Monroy is an 87 year old white male who is seen at the request of the [facility] Hospitalist Service for evaluation of JUDI/CKD. Medical records in the EMR were reviewed today and are summarized as follows: Mr. Monroy has CKD stage G4 (advanced impairment). Baseline Cr 2.0 w/ EGFR 29 cc/min. Urine sediment has been acellular. 11/18 renal US - R 10.9 cm, L 11.5 cm. No hydronephrosis. Primary Wing Coverer is Dr. Dixon. Renal impairment has been attributed to microvascular disease. Mr. Monroy has been poorly adherent to his outpatient visits. His last outpatient Nephrology visit was 04/16. 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 Mr. Monroy was last hospitalized at [facility] 10/09/22-10/26/22 due to CHF, MELO complicated by cystitis, and JUDI/CKD due to drug induced AIN. Mr. Monroy did require 5 dialysis sessions during his hospitalization but recovered kidney function following a trial of steroid therapy. His Prednisone was tapered to off by 11/01/22. Mr. Monroy presented to the [facility] EMD last evening for evaluation of weakness. BSG was 747, Na 128 and Cr 2.8. He was admitted to the hospitalist service for IV hydration and insulin therapy. CXR shows bibasilar opacities suggestive of atelectasis vs. pneumonitis. Allergies Allergy/AdvReac Type Severity Reaction Status Date / Time ciprofloxacin [From Cipro] AdvReac Severe Verified 11/02/22 10:00 semaglutide [From Ozempic] AdvReac Severe NAUSEA/VOMI Verified 11/02/22 10:00 TING/ANOREX IA amlodipine AdvReac Intermediate SWELLING Verified 11/02/22 10:00 OF ANKLES ropinirole AdvReac Intermediate CHANGE IN Verified 11/02/22 10:00 MENTAL STATUS Home Medications Medication Instructions Recorded Confirmed Type albuterol sulfate 90 mcg/actuation 2 puffs inhalation QID PRN 01/10/19 11/08/22 History aerosol inhaler shortness of breath or wheezing levothyroxine 88 mcg tablet 88 mcg PO DAILYBB #90 tabs 01/10/19 11/08/22 History potassium chloride 20 mEq 20 meq PO BID 01/10/19 11/08/22 History tablet,extended release finasteride 5 mg tablet 5 mg PO HS 04/23/19 11/08/22 History losartan 25 mg tablet 25 mg PO QAM 04/23/19 11/08/22 History gabapentin 100 mg capsule See Rx Instructions .Route .COMPLEX 12/16/20 11/08/22 History aspirin 81 mg tablet,delayed 81 mg PO DAILY 10/11/21 11/08/22 History release pantoprazole 20 mg tablet,delayed 20 mg PO BID 02/07/22 11/08/22 History release glipizide 10 mg tablet 10 mg PO BID 03/29/22 11/08/22 History insulin glargine 100 unit/mL (3 See Rx Instructions .Route .COMPLEX 04/12/22 11/08/22 History mL) subcutaneous pen (Lantus Solostar U-100 Insulin) acetaminophen 500 mg tablet 1,000 mg PO Q6H PRN PAIN/FEVER 05/28/22 11/08/22 History (Tylenol Extra Strength) bumetanide 2 mg tablet 2 mg PO BID 05/28/22 11/08/22 History clonazepam 1 mg tablet 1 mg PO BID 05/28/22 11/08/22 History diphenhydramine HCl 25 mg capsule 25 mg PO BID PRN NEEDED 05/28/22 11/08/22 History (Benadryl) fluticasone 500 mcg-salmeterol 50 1 inh inhalation BID 05/28/22 11/08/22 History mcg/dose blistr powdr for inhalation metoprolol tartrate 50 mg tablet 25 mg PO BID 05/28/22 11/08/22 History multivitamin with minerals 1 tab PO DAILY 05/28/22 11/08/22 History rosuvastatin 20 mg tablet 20 mg PO HS 05/28/22 11/08/22 History tiotropium bromide 2.5 2 puff inhalation DAILY 05/28/22 11/08/22 History mcg/actuation mist for inhalation vitamins A,C,G-nwin-riyfyl 2,148 1 tab PO DAILY 05/28/22 11/08/22 History mcg-113 mg-45 mg-17.4 mg tablet (PreserVision AREDS) apixaban 2.5 mg tablet (Eliquis) 2.5 mg PO BID 30 days #60 tabs 10/26/22 11/08/22 Rx tamsulosin 0.4 mg capsule 0.8 mg PO HS 30 days #60 caps 10/26/22 11/08/22 Rx Patient History Medical History Acute bronchopneumonia Acute urinary retention Cmrsk-oa-zulfctq kidney injury AMS (altered mental status) Anxiety Aortic stenosis Mild per 03/06/19 stress ECHO Asthma Uses rescue inhaler a couple times per week Atrial fibrillation Follows with Dr. Gr Bacteremia Blindness of left eye BPH (benign prostatic hyperplasia) CAD (coronary artery disease) Angioplasty ~1993, CABG x 3 2013 (GALINDO to LAD, SVG to PDA, SVG to OM) CHF (congestive heart failure) Chronic kidney disease Follows with Dr. Dixon Chronic obstructive pulmonary disease Diabetes Type 2 IDDM Foot ulcer GERD (gastroesophageal reflux disease) Herpes zoster Hiatal hernia Hyperlipidemia Hypertension Hypervolemia Hypothyroidism Leukocytosis Macular degeneration Myocardial infarct ~1993 Peripheral neuropathy Rupture of left distal biceps tendon hx - no surgery Secondary hyperparathyroidism (of renal origin) SIRS (systemic inflammatory response syndrome) Surgical History Fusion of spine lumbar History of appendectomy History of cardiac cath with angioplasty ~1993 ([facility]) & 2013 ([facility]) History of cataract surgery bilateral History of coronary artery bypass graft x3 vessels ([facility] 2013) with epicardial RFA of pulmonary veins and left atrial appendage ligation History of revision of total replacement of right knee joint History of tonsillectomy History of tooth extraction History of total left knee replacement History of total right knee replacement Hx of colonoscopy Previous back surgery (08/26/12) S/P cholecystectomy Family History Brother Heart disease Diabetes Sister Cancer Mother Diabetes Father Diabetes Other Hypertension Kidney disease Social History Smoking Status: Never smoker Tobacco Type: Cigarettes Second Hand Exposure: No; Do You Dip or Chew Tobacco: No; Tobacco Cessation Education Requested by Patient: No Hx Alcohol Use: No Hx Substance Use: No Preferred Language: [place] Communication Ability: Impaired Visual Impairment: Partially Limited Payroll Human Resources Assistant Required: No Beliefs That Will Affect Care: None marital status: Current Living Situation: Spouse Current Living Situation Comment: lives at home with current occupational status: retired Other Information That Helps Us Care for You: No Feels Safe at Home: Yes Safety Concerns: Feels Safe At This Time Assistive Devices: Walker and Wheelchair Review of Systems Constitutional: + weakness; no fever Eyes: no worsening vision Ear, Nose, Mouth, Throat: no problem reported Respiratory: no dyspnea Cardiovascular: no chest pain and no palpitations Gastrointestinal: no abdominal pain, no nausea, no vomiting and no diarrhea/loose stools Physical Exam Constitutional: not in distress Eyes: PERRL, conjunctivae normal, anicteric sclerae ENMT: external ear and nose normal, oropharynx normal Neck: trachea midline, no thyromegaly Respiratory: normal respiratory effort, lungs clear to auscultation Cardiovascular: Rate/Rhythm: regular rate and regular rhythm Heart Sounds: no murmur and no cardiac rub Extremities: + edema (trace pretibial edema) Gastrointestinal (Abdomen): normal bowel sounds, soft, nontender, no hepatosplenomegaly Skin: no rashes, warm and dry Results & Data Vital Signs (Past 12 Hours) Vital Signs Temp Pulse Pulse Resp BP BP Pulse Ox 11/09/22 08:16 36.3 C L 81 21 124/64 94 11/09/22 07:16 79 11/09/22 02:33 11/09/22 02:31 97 H 11/09/22 02:22 11/09/22 02:11 36.8 C 93 H 18 121/68 95 11/09/22 01:31 87 20 115/52 L 92 11/09/22 00:08 89 23 113/60 93 11/08/22 22:32 93 H 24 94 11/08/22 22:24 95 H 11/08/22 22:23 38.5 C H 95 H 19 105/67 88 L O2 Del Method O2 Del Method O2 Flow Rate 11/09/22 08:16 Room Air 11/09/22 07:16 11/09/22 02:33 Nasal Cannula 11/09/22 02:31 11/09/22 02:22 Nasal Cannula 11/09/22 02:11 Nasal Cannula 3 11/09/22 01:31 Nasal Cannula 2 11/09/22 00:08 Nasal Cannula 2 11/08/22 22:32 Nasal Cannula 2 11/08/22 22:24 11/08/22 22:23 Room Air Laboratory Results Laboratory Tests 10/29/22 10/29/22 11/09/22 19:57 20:45 01:05 WBC Hgb Hct Plt Count Sodium Potassium Chloride Carbon Dioxide BUN Creatinine 2.10 H 2.85 H Est GFR (Non-Af Amer) Glucose Calcium Phosphorus Magnesium Urine pH 5.0 Ur Specific [place] 1.011 Urine Protein Negative Urine Glucose (UA) 3+ H Urine Ketones Negative Urine Blood 1+ H Urine Nitrite Negative Urine RBC (Auto) 0-4 11/09/22 11/09/22 05:33 05:33 WBC 6.41 Hgb 8.6 L Hct 25.0 L Plt Count 119 L Sodium 132 L Potassium 3.8 Chloride 98 Carbon Dioxide 25 BUN 33 H Creatinine 2.71 H Est GFR (Non-Af Amer) 20.2 Glucose 397 H* Calcium 7.9 L Phosphorus 3.3 Magnesium 2.0 Urine pH Ur Specific [place] Urine Protein Urine Glucose (UA) Urine Ketones Urine Blood Urine Nitrite Urine RBC (Auto) Diagnostic Findings 11/08/22 CXR: 1. Cardiomegaly without pulmonary edema. 2. Subsegmental bibasilar opacities suggestive of atelectasis versus pneumonitis. 11/09/[address] (no contrast): No acute findings in the abdomen or pelvis. 11/09/[address] (no contrast): Trace bilateral effusions without definite intrathoracic infection. PG Care Time/CCT Total # of Minutes Spent Total Time Spent with Patient: Total time spent is greater than 50% in coordination of care (as documented) at patient's floor/unit and/or counseling patient: Coding Level of Care Code 21060 IN/OBS CONSULT LVL 5,80M Diagnoses Acute kidney injury N17.9 Chronic kidney disease, stage 4 (severe) N18.4 Hypertension I10 Hypertension type: essential hypertension Hyperosmolar hyperglycemic state (HHS) E11.00 Pneumonia J18.9 (3) Hypertension Hypertension type: essential hypertension Qualified Code(s): I10 - Essential (primary) hypertension
[2022-11-09 09:58] LABS: BUN Creatinine Ratio 12.1 (10-20); Calcium 7.6 mg/dl (8.6-10.3); Creatinine Clr Calc Pharmacy 19.9 ml/min; Est GFR (African American) 22.5 ml/min; Est GFR (Non-African American) 19.4 ml/min; Phosphorus 3.2 mg/dl (2.5-4.9); Potassium 3.8 mmol/L (3.5-5.1)
[2022-11-09] MEDS: ALBUTEROL 0.083% NEBU SOLN 3 ML VIAL NEB PRN (10:01)
[2022-11-09] MEDS ORDERED: LANTUS PER UNIT CHARGE SC ONE (12:00)
--- NOTE | 2022-11-09 12:29 | Electrocardiogram Report ---
Test Reason : Blood Pressure : / mmHG Vent. Rate : 097 BPM Atrial Rate : 097 BPM P-R Int : 210 ms QRS Dur : 152 ms QT Int : 390 ms P-R-T Axes : 060 -49 006 degrees QTc Int : 495 ms Sinus rhythm with 1st degree A-V block Left axis deviation Right bundle branch block Abnormal ECG When compared with ECG of 13-OCT-2022 06:13, Inverted T waves have replaced nonspecific T wave abnormality in Inferior leads Confirmed by Travis Holloway ([id number]) on 11/09/2022 12:29:05 PM Referred By: [facility] Confirmed By:Asim Holloway
[2022-11-09 12:38] LABS: A calco-baum cmplx NotReported Not Detected (NotDetected); Bact fragilis Not Reported Not Detected (NotDetected); C auris Not Reported Not Detected (NotDetected); Calbicans Not Reported Not Detected (NotDetected); Candida glabrata Not Reported Not Detected (NotDetected); Candida krusei Not Reported Not Detected (NotDetected); Cneoformans/gatti Not Reported Not Detected (NotDetected); Cparapsilosis Not Reported Not Detected (NotDetected); Ctropicalis Not Reported Not Detected (NotDetected); E cloacae compx Not Reported Not Detected (NotDetected); Efaecalis Not Reported DETECTED (NotDetected); Efaecium Not Reported Not Detected (NotDetected); Enterobacterales Not Reported Not Detected (NotDetected); Escherichia coli Not Reported Not Detected (NotDetected); H influenzae Not Reported Not Detected (NotDetected); K aerogenes Not Reported Not Detected (NotDetected); Koxytoca Not Reported Not Detected (NotDetected); Kpneumoniae grp Not Reported Not Detected (NotDetected); Lmonocyt Not Reported Not Detected (NotDetected); N meningitidis Not Reported Not Detected (NotDetected); P aeruginosa Not Reported Not Detected (NotDetected); Proteus spp Not Reported Not Detected (NotDetected); Salmonella spp Not Reported Not Detected (NotDetected); Smarcescens Not Reported Not Detected (NotDetected); Staph lugdunensis Not Reported Not Detected (NotDetected); Staph spp. Not Reported Not Detected (NotDetected); Staphaureus Not Reported Not Detected (NotDetected); Staphepi Not Reported Not Detected (NotDetected); Stenmaltophilia Not Reported Not Detected (NotDetected); Strep agal(GrpB) Not Reported Not Detected (NotDetected); Strep pneum Not Reported Not Detected (NotDetected); Strep pyog (GrpA) Not Reported Not Detected (NotDetected); Strep spp Not Reported Not Detected (NotDetected); VanAB Resistant Gene VRE Not Detected (NotDetected)
[2022-11-09 12:53] LABS: Enterococcus faecalis DETECTED (NotDetected)
--- NOTE | 2022-11-09 14:19 | Pharmacy Report ---
Pharmacy Glycemic Short Note 2 - Date of Service November 09, 2022 - Glycemic Short BSG Results (Last 24 hours): 11/08/22 11/08/22 11/08/22 22:31 22:52 23:06 Glucose 747 H* POC Glucose > 600 H* POC Glucose (other) > 700 H* 11/09/22 11/09/22 11/09/22 01:01 01:05 02:47 Glucose 669 H* POC Glucose > 600 H* 582 H* POC Glucose (other) 11/09/22 11/09/22 11/09/22 03:43 04:47 05:33 Glucose 397 H* POC Glucose 535 H* 479 H* POC Glucose (other) 11/09/22 11/09/22 11/09/22 05:50 06:47 07:43 Glucose POC Glucose 367 H* 394 H* 363 H* POC Glucose (other) 11/09/22 11/09/22 11/09/22 08:59 09:13 10:02 Glucose 259 H POC Glucose 285 H 259 H POC Glucose (other) 11/09/22 11/09/22 11/09/22 11:00 12:04 13:11 Glucose POC Glucose 212 H 192 H 171 H POC Glucose (other) 11/09/22 14:07 Glucose POC Glucose 156 H POC Glucose (other) OUTPATIENT ANTIDIABETIC REGIMEN: * Lantus 52 units SC qAM, 50 units SC qPM * Glipizide 10 mg PO BID HbA1c: 11.5% (10/12/22) ASSESSMENT: * LC is an 87 year old male who presents with profound hyperglycemia (HHS?) w/ BSG > 700 mg/dL on presentation * On presentation, effective serum osmolality of 294 mOsm/kg, no anion gap (9), sodium 126, BUN 34, and SCr: 2.8 * Insulin infusion and IV fluids initiated in ED, BSGs have trended down very nicely * Diet restarted with lunch - basal ordered and insulin gtt discontinuation orders placed for ~1630 * Patient known to pharmacy glycemic service for admission in September 2022 * Of note, patient was on steroids for duration of this admission PLAN FOR INPATIENT GLYCEMIC CONTROL: * Hold outpatient oral diabetes medications * Basal insulin * Lantus 18 units SC x 1 * Reassess in AM * Bolus insulin * NovoLog per scale ACHS or Q6hrs while NPO * Goal Range: Low 110 mg/dL - High 140 mg/dL * Correction Factor: 25 mg/dL/unit * Nutritional / Prandial insulin per carb ratio of 1 unit per 8 grams CHO consumed
[2022-11-09] MEDS: AMPICILLIN 2,000 MG in SODIUM CHLOR 0.9% AD-VAN 100 ML IV SCH ×2 (15:00→21:04)
[2022-11-09 15:07] LABS: BUN Creatinine Ratio 11.2 (10-20); Creatinine Clr Calc Pharmacy 20.1 ml/min; Est GFR (African American) 22.8 ml/min; Est GFR (Non-African American) 19.7 ml/min; Phosphorus 3.3 mg/dl (2.5-4.9); Potassium 3.9 mmol/L (3.5-5.1)
[2022-11-09] MEDS ORDERED: STOP ORDER: INSULIN INFUSION ONE (16:30)
[2022-11-09 19:16] LABS: Appearance Urine Clear (Clear); Bacteria Urine Automated Negative (Negative); Bilirubin Urine Negative (Negative); Blood Urine Trace (Negative); Color Urine Yellow; Glucose Urine UA 3+ (Negative); Ketones Urine Negative (Negative); Leukocyte Esterase Urine Trace (Negative); Nitrite Urine Negative (Negative); Protein Urine Trace (Negative); RBC Urine Automated 0-4 /hpf (0-4); Specific Gravity Urine 1.019 (1.000-1.030); Urobilinogen Urine Negative (Negative); pH Urine 5.5 (4.5-7.5)
[2022-11-09 19:26] LABS: Total Protein Urine Random 36.3 mg/dl (0-11.9)
[2022-11-09 19:29] LABS: BUN Creatinine Ratio 12.5 (10-20); Calcium 7.9 mg/dl (8.6-10.3); Creatinine Clr Calc Pharmacy 21.1 ml/min; Est GFR (African American) 24.1 ml/min; Est GFR (Non-African American) 20.8 ml/min; Phosphorus 3.2 mg/dl (2.5-4.9); Potassium 4.1 mmol/L (3.5-5.1)
[2022-11-09 19:31] LABS: Creatinine Urine Random 101.1 mg/dl; Protein Creatinine Ratio Urine 0.4 (0-0.2)
[2022-11-09] MEDS: FINASTERIDE 5 MG TAB PO SCH (20:53)
[2022-11-09] MEDS: ROSUVASTATIN CALCIUM 20 MG TAB PO SCH (20:53)
[2022-11-09] MEDS: TAMSULOSIN HCL 0.4 MG CAP PO SCH (20:53)
[2022-11-09 23:15] LABS: BUN Creatinine Ratio 12.7 (10-20); Calcium 7.8 mg/dl (8.6-10.3); Creatinine Clr Calc Pharmacy 22.2 ml/min; Est GFR (African American) 25.7 ml/min; Est GFR (Non-African American) 22.1 ml/min; Phosphorus 2.9 mg/dl (2.5-4.9); Potassium 3.9 mmol/L (3.5-5.1)
[2022-11-10] MEDS: INSULIN ASPART PER UNIT CHARGE SC SCH ×6 (03:58→23:27)
[2022-11-10] MEDS: AMPICILLIN 2,000 MG in SODIUM CHLOR 0.9% AD-VAN 100 ML IV SCH ×3 (06:13→22:28)
[2022-11-10] MEDS: LEVOTHYROXINE SODIUM 88 MCG TABLET PO SCH (06:14)
[2022-11-10 06:25] LABS: BUN Creatinine Ratio 12.2 (10-20); Basophils # (auto) 0.02 K/uL (0-0.2); Basophils % (auto) 0.3 %; Calcium 7.8 mg/dl (8.6-10.3); Creatinine Clr Calc Pharmacy 25.5 ml/min; Eosinophils # (auto) 0.06 K/uL (0-0.50); Eosinophils % (auto) 0.9 %; Est GFR (African American) 29.9 ml/min; Est GFR (Non-African American) 25.8 ml/min; Hematocrit (blood only) 24.5 % (42.0-52.0); Hemoglobin 8.6 g/dl (14.0-18.0); Immature Granulocytes # (auto) 0.07 K/uL (0.01-0.20); Immature Granulocytes % (auto) 1.1 %; Lymphocytes # (auto) 1.58 K/uL (1.2-3.4); Mean Corpuscular Hgb Conc 35.1 g/dL (32.0-36.0); Mean Corpuscular Volume 91.1 fL (80.0-100.0); Mean Platelet Volume 10.2 fL (9.4-12.4); Monocytes # (auto) 0.53 K/uL (0.11-0.59); Neutrophils # (auto) 4.33 K/uL (1.40-6.50); Neutrophils % (auto) 65.7 %; Platelet Count 144 K/uL (130-400); Potassium 3.8 mmol/L (3.5-5.1); RDW Coefficient of Variation 14.1 % (11.5-14.5); RDW Standard Deviation 46.9 fL (36.4-46.3); Red Blood Count 2.69 M/uL (4.70-6.10); White Blood Count 6.59 K/ul (4.8-10.8)
--- NOTE | 2022-11-10 08:14 | Nephrology Progress Note ---
Date of Service November 10, 2022 Assessment & Plan (1) Acute kidney injury: Plan: * JUDI/CKD likely reflective of severe hyperglycemia and intravascular volume depletion * Creatinine has improved from 2.8 to 2.2 following IVF * Recommend heplock IV in am * Electrolyte balance is acceptable. No acute indication for HD at this time * Monitor PRP, UO (2) Chronic kidney disease, stage 4 (severe): Plan: * CKD stage G4 (advanced impairment). Baseline Cr 2.0 w/ EGFR 29 cc/min. Urine sediment has been acellular. 11/18 renal US - R 10.9 cm, L 11.5 cm. No hydronephrosis. Primary Peoplesoft Programmer is Dr. Dixon. Renal impairment has been attributed to microvascular disease (3) Bacteremia: Plan: * 11/08/22 - 2 of 2 blood cx positive for G+ cocci in chains * Possible strep bacteremia related to skin lesions, prior vascular appliances * Await speciation * Currently on IV Ampicillin * Consider echocardiogram * Consider consultation w/ ID specialist * Will need outpatient allergy testing (PCN, Cipro) due to h/o severe AIN during last hospitalization (4) Hypertension: Plan: * On Losartan, Metoprolol as outpatient * BP is currently acceptable * Hold Losartan due to JUDI/CKD (5) Hyperosmolar hyperglycemic state (HHS): Plan: * Resolved. BSG improved from 747-->176 * Insulin as per primary service Admission and Anticipated Discharge Date Admission Date: November 09, 2022 Subjective Mr. Monroy was evaluated in his hospital room this morning. His was present at bedside. He denied angina or dyspnea. Mrs. Monroy provided photos of healing wounds involving her husbands legs Review of Systems Constitutional: + weakness; no fever Eyes: no worsening vision Ear, Nose, Mouth, Throat: no problem reported Respiratory: no dyspnea Cardiovascular: no chest pain and no palpitations Gastrointestinal: no abdominal pain, no nausea, no vomiting and no di arrhea/loose stools Physical Exam Constitutional: not in distress Eyes: PERRL, conjunctivae normal, anicteric sclerae ENMT: external ear and nose normal, oropharynx normal Neck: trachea midline, no thyromegaly Respiratory: normal respiratory effort, lungs clear to auscultation Cardiovascular: Rate/Rhythm: regular rate and regular rhythm Heart Sounds: no murmur and no cardiac rub Extremities: + edema (trace pretibial edema. L betts wrapped) Gastrointestinal (Abdomen): normal bowel sounds, soft, nontender, no hepatosplenomegaly Skin: no rashes, warm and dry Results & Data Vital Signs (Past 12 Hours) Vital Signs Temp Pulse Pulse Pulse Resp BP Pulse Ox 11/10/22 07:00 36.2 C L 82 18 117/69 92 11/10/22 02:22 11/10/22 02:48 36.7 C 88 18 139/66 90 11/09/22 23:01 89 11/09/22 22:32 11/09/22 22:25 36.7 C 89 18 163/67 H 95 O2 Del Method O2 Del Method O2 Flow Rate O2 Flow Rate 11/10/22 07:00 Room Air 11/10/22 02:22 Nasal Cannula 1 11/10/22 02:48 Nasal Cannula 2 11/09/22 23:01 11/09/22 22:32 Nasal Cannula 11/09/22 22:25 Nasal Cannula 2 Laboratory Results Laboratory Tests 11/08/22 11/09/22 11/10/22 18:25 18:25 05:27 WBC 6.59 Hgb 8.6 L Hct 24.5 L Plt Count 144 Sodium Potassium Chloride Carbon Dioxide BUN Creatinine Glucose Calcium Urine Color Yellow Urine Appearance Clear Ur Specific [place] 1.019 Urine Protein Trace H Urine Glucose (UA) 3+ H Urine Blood Trace H Urine RBC (Auto) 0-4 Protein/Creatinin Ratio 0.4 H 11/10/22 05:27 WBC Hgb Hct Plt Count Sodium 137 Potassium 3.8 Chloride 103 Carbon Dioxide 28 BUN 27 H Creatinine 2.21 H D Glucose 176 H Calcium 7.8 L Urine Color Urine Appearance Ur Specific [place] Urine Protein Urine Glucose (UA) Urine Blood Urine RBC (Auto) Protein/Creatinin Ratio PG Care Time/CCT Total # of Minutes Spent Total Time Spent with Patient: Total time spent is greater than 50% in coordination of care (as documented) at patient's floor/unit and/or counseling patient: Coding Level of Care Code 31902 SUB INP/OBS CARE 3/50MIN Diagnoses Acute kidney injury N17.9 Chronic kidney disease, stage 4 (severe) N18.4 Bacteremia R78.81 Hypertension I10 Hypertension type: essential hypertension Hyperosmolar hyperglycemic state (HHS) E11.00 (4) Hypertension Hypertension type: essential hypertension Qualified Code(s): I10 - Essential (primary) hypertension
[2022-11-10] MEDS ORDERED: LANTUS PER UNIT CHARGE SC SCH (09:00)
[2022-11-10 09:01] LABS: Ferritin 274.2 ng/ml (8-388)
[2022-11-10] MEDS: METOPROLOL TARTRATE 25 MG TAB PO SCH ×2 (09:04→20:45)
[2022-11-10] MEDS: APIXABAN 2.5 MG TAB PO SCH ×2 (09:04→20:43)
[2022-11-10] MEDS: ASPIRIN 81 MG ECTAB PO SCH (09:04)
[2022-11-10] MEDS: UMECLIDINIUM BROMIDE 62.5MCG/BLISTER 7 PUFFS/INHALER INH SCH (09:04)
[2022-11-10] MEDS: FLUTICASONE/VILANTEROL 200/25MCG 14 PUFFS/INHALER INH SCH (09:05)
[2022-11-10] MEDS: clonazePAM 1 MG TAB PO SCH ×2 (09:06→20:43)
--- NOTE | 2022-11-10 09:30 | Hospitalist Progress Note ---
Date of Service November 10, 2022 Assessment & Plan (1) Hyperosmolar hyperglycemic state (HHS): (2) Acute kidney injury superimposed on CKD: (3) Chronic kidney disease, stage 4 (severe): (4) Sepsis: (5) Hypothyroidism: (6) Hypertension: (7) Paroxysmal atrial fibrillation: (8) Dyslipidemia: (9) CAD (coronary artery disease): (10) Diabetes: (11) COPD (chronic obstructive pulmonary disease): (12) CHF (congestive heart failure): Plan Summary: Aj is an 87 y/o M with PMHx of diabetes mellitus type 2 (Lantus 20 units BID since 10/29/22 with glipizide 10mg BID), paroxysmal AFIB on low-dose Eliquis, CKD stage III, recent urethral stricture that was dilated, COPD, hypertension, hypothyroidism, CAD, HFpEF on home Bumex therapy presented to the ER for at least 3 days of confusion, poor appetite, weakness, intermittent nausea. He had two falls at home due to weakness without LOC without head injury. No noted fevers at home per . In the ER was noted to be mildly hypoxic (88%) requiring 2L nasal cannula, febrile to 38.5, mildly tachycardic in the 90s, BP 100s. Normal WBC count. Blood glucose 747.Creatinine 2.8 (baseline creatinine 2.0), troponin 29.1, elevated BNP, procalcitonin 1.06. BioFire negative. #Sepsis -Blood cultures x2 showing Enterococcus faecalis. Continue ampicillin. MRSA nares negative -Urine culture showed pinpoint growth, re-incubating -Wound care nursing consulted for BL LE blistering wounds -CXR suggested atelectasis vs. pneumonitis -Otherwise CT chest noncon and CT abd/pelvis - no acute findings #Hyperosmolar hyperglycemic state -Potentially 2/2 superimposed infection and uncontrolled diabetes (HgbA1C from 10/12/22 was 11.5%) -BSG 747 on admission, serum Osm 316 -Electrolytes, anion gap, pH stabilized -Transitioned to diet by mouth -Continue Plasma-Lyte 60cc/hr (decreased rate due to Hx CHF) #Acute kidney injury superimposed on CKD stage IV -Creatinine 2.8, with Hx CKD III with baseline creatine 2.0, EGFR 29 cc/min -Recent admission for acute renal failure requiring temporarily dialysis, has follow up with [facility] nephrology -Nephrology consult appreciated: no need for dialysis as of now -Continue Plasma-Lyte, hold home diuretics and losartan temporarily -Close monitoring of intake/output (Lopez in place) -Nina nephro: will need outpatient allergy testing (PCN, Cipro) due to 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 #Chronic kidney disease, stage IV (severe): -see above #Diabetes mellitus type 2 -see above -Home regimen since 10/29 is Lantus 20u BID and glipizide 10mg BID -Decreased from 50u BID on last discharge 10/26 -Insulin gtt for now, appreciate glycemic consult #Heart failure with preserved ejection fraction -Closely monitor I/Os with Lopez -CXR did not show pulmonary edema -Holding home regimen: bumetanide 2mg PO BID, metoprolol, losartan -Last echo 03/24/22: LVEF 60-65%, mild aortic stenosis #Paroxysmal atrial fibrillation -Continue chronic low dose Eliquis therapy and metoprolol -ECG: sinus rhythm with 1st deg. AV block, left axis deviation, right bundle #Cellulitis -Possible, covering for skin/soft tissue gilma #COPD (chronic obstructive pulmonary disease) -No home oxygen requirement. Weaned off oxygen that was initiated on admission. -O2 goal 88-92% -Continue home inhalers: Breo Ellipta, Incruse Ellipta #Dyslipidemia -Continue statin #CAD (coronary artery disease) -Continue statin, beta mark, aspirin -Hold LILLIANA for JUDI #Hypertension -Holding home losartan -Continue metoprolol #Hypothyroidism -Continue home levothyroxine #Anxiety -Clonazepam 1mg PO BID FENGI: heart healthy, carb consistent DVT prophylaxis: Eliquis, low dose Dispo: potentially rehab pending PT/OT evaluations Code status: DNR/DNI Admission and Anticipated Discharge Date Admission Date: November 09, 2022 Supervising Physician Co-Signing Physician Notes ATTESTATION I also saw the patient and confirmed aguayo portions of the history and exam. I agree with the impression and plan in the resident documentation, and as summarized below. Upon exam this morning, patient's is at bedside. Mr. Monroy seems sleepy, but voices no complaints EXAM 113/61, 68, 18, 36.4, 92% on room air Heart rate regular Respirations nonlabored Abdomen soft and nontender Multiple lower extremity wounds secondary to evacuated bullae (viewed by jose duarte in EMR), no obvious signs of infection DATA Labs Hemoglobin 8.6, WBC 6.59, platelet count 144 BUN 27, creatinine 2.[address] upon admission showed trace bilateral pleural effusions without definitive intrathoracic infection. CT of the abdomen and pelvis showed no acute findings Chest x-ray showed cardiomegaly without pulmonary edema; subsegmental bibasilar opacities suggestive of atelectasis versus pneumonitis Micro Blood cultures dated 11/08/2021 shows probable Enterococcus, 2/2 Urine culture collected 11/09/2022 shows pinpoint growth, reintubating IMPRESSION & PLAN Sepsis/Gram-positive bacteremia, speciation pending Recent history of AIN presumed secondary to ciprofloxacin/cephalexin, temporary hemodialysis with renal recovery CKD, secondary to diabetes and hypertension Insulin-dependent diabetes Remains hemodynamically stable Renal function stable to slightly improved, appreciate nephrology consultation Continue ampicillin Await final cultures/likely consult ID Wound care consultation for lower extremity wounds Additional per resident documentation Subjective Mr. Monroy is still fatigued. Overnight he did not have any acute events. His chills have improved and he is still coughing but not short of breath. His appetite is poor but he is managing to eat some of his meals. With the Lopez catheter he does not have dysuria or discomfort. His is accompanying him today and provided additional history and pictures of his bilateral lower extremity wounds. Review of Systems Review of Systems: All systems reviewed & are unremarkable except as noted in HPI & below Physical Exam Physical Exam: Appearance: fatigued, lying supine in bed Respiratory: Room air No conversational dyspnea Coughing during exam Lungs clear to auscultation bilaterally Cardiovascular: Regular rate and rhythm Normal S1, S2, no appreciable murmurs Extremities warm No cyanosis Gastrointestinal (Abdomen): Active bowel sounds No pain/rebound/guarding to palpation Skin: Lower extremities with several wound dressings that appear dry without surrounding erythema or purulence Genitourinary: +Lopez catheter, yellow output Results & Data Results & Data Vital Signs (Past 12 Hours) Vital Signs Temp Pulse Pulse Pulse Resp BP Pulse Ox 11/10/22 07:00 36.2 C L 82 18 117/69 92 11/10/22 02:22 11/10/22 02:48 36.7 C 88 18 139/66 90 11/09/22 23:01 89 11/09/22 22:32 11/09/22 22:25 36.7 C 89 18 163/67 H 95 O2 Del Method O2 Del Method O2 Flow Rate O2 Flow Rate 11/10/22 07:00 Room Air 11/10/22 02:22 Nasal Cannula 1 11/10/22 02:48 Nasal Cannula 2 11/09/22 23:01 11/09/22 22:32 Nasal Cannula 11/09/22 22:25 Nasal Cannula 2 (5) Hypothyroidism Hypothyroidism type: unspecified Qualified Code(s): E03.9 - Hypothyroidism, unspecified (6) Hypertension Hypertension type: essential hypertension Qualified Code(s): I10 - Essential (primary) hypertension (9) CAD (coronary artery disease) Associated angina: without angina Coronary Disease-Associated Artery/Lesion type: [place] artery [place] vs. transplanted heart: [place] heart Qualified Code(s): I25.10 - Atherosclerotic heart disease of [place] coronary artery without angina pectoris (10) Diabetes Diabetes mellitus complication status: with hyperglycemia Diabetes mellitus extermination supervisor insulin use: with extermination supervisor use Diabetes mellitus type: type 2 Qualified Code(s): E11.65 - Type 2 diabetes mellitus with hyperglycemia; Z79.4 - predatory animal exterminator (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 (11) COPD (chronic obstructive pulmonary disease) COPD type: unspecified COPD Qualified Code(s): J44.9 - Chronic obstructive pulmonary disease, unspecified (12) CHF (congestive heart failure) Heart failure chronicity: unspecified Heart failure type: unspecified Qualified Code(s): I50.9 - Heart failure, unspecified
[2022-11-10] MEDS: ACETAMINOPHEN 325 MG TAB PO PRN (09:36)
[2022-11-10] MEDS: PLASMA-LYTE A 1,000 ML IV SCH (12:46)
--- NOTE | 2022-11-10 14:05 | Pharmacy Report ---
Pharmacy Glycemic Short Note 2 - Date of Service November 10, 2022 - Glycemic Short BSG Results (Last 24 hours): 11/09/22 11/09/22 11/09/22 14:07 14:15 16:28 Glucose 123 H POC Glucose 156 H 149 H 11/09/22 11/09/22 11/09/22 18:48 20:11 22:35 Glucose 205 H 259 H POC Glucose 264 H 11/09/22 11/10/22 11/10/22 23:38 03:55 05:27 Glucose 176 H POC Glucose 281 H 204 H 11/10/22 11/10/22 07:48 11:39 Glucose POC Glucose 223 H 246 H OUTPATIENT ANTIDIABETIC REGIMEN: * Lantus 52 units SC qAM, 50 units SC qPM * Glipizide 10 mg PO BID HbA1c: 11.5% (10/12/22) ASSESSMENT: 11/10: * Aj was transitioned off IV insulin last evening. Blood sugars have been in the mid 200's since then despite receiving doses of insulin very similar to what he tolerated during September 2022 admission. * Fasting BSG of 223 mg/dL. Will increase basal insulin. * Lunch BSG 246 mg/dL. Will tighten carb coverage and add overnight checks. 11/09: * YURI is an 87 year old male who presents with profound hyperglycemia (HHS?) w/ BSG > 700 mg/dL on presentation * On presentation, effective serum osmolality of 294 mOsm/kg, no anion gap (9), sodium 126, BUN 34, and SCr: 2.8 * Insulin infusion and IV fluids initiated in ED, BSGs have trended down very nicely * Diet restarted with lunch - basal ordered and insulin gtt discontinuation orders placed for ~1630 * Patient known to pharmacy glycemic service for admission in September 2022 * Of note, patient was on steroids for duration of this admission PLAN FOR INPATIENT GLYCEMIC CONTROL: * Hold outpatient oral diabetes medications * Basal insulin * Lantus 25 units SQ this morning * Lantus 0-5-10 units SQ this evening - dose per BSG * Reassess in AM * Bolus insulin * NovoLog per scale ACHS or Q6hrs while NPO * Goal Range: Low 110 mg/dL - High 140 mg/dL * Correction Factor: 20 mg/dL/unit * Nutritional / Prandial insulin per carb ratio of 1 unit per 5 grams CHO consumed
[2022-11-10] MEDS: ALBUTEROL 0.083% NEBU SOLN 3 ML VIAL NEB PRN (16:41)
[2022-11-10] MEDS: BENZONATATE 100 MG CAPSULE PO PRN (16:58)
[2022-11-10] MEDS: ONDANSETRON INJ 2 MG/ML 2 ML VIAL IV PRN (17:59)
--- NOTE | 2022-11-10 19:08 | XCELERA ---
[id number] [id number]
[2022-11-10] MEDS: FINASTERIDE 5 MG TAB PO SCH (20:43)
[2022-11-10] MEDS: ROSUVASTATIN CALCIUM 20 MG TAB PO SCH (20:45)
[2022-11-10] MEDS: TAMSULOSIN HCL 0.4 MG CAP PO SCH (20:45)
[2022-11-10] MEDS ORDERED: LANTUS PER UNIT CHARGE SC ONE (21:00)
[2022-11-11] MEDS: INSULIN ASPART PER UNIT CHARGE SC SCH ×5 (04:26→21:41)
[2022-11-11] MEDS: AMPICILLIN 2,000 MG in SODIUM CHLOR 0.9% AD-VAN 100 ML IV SCH ×4 (05:41→23:14)
[2022-11-11] MEDS: LEVOTHYROXINE SODIUM 88 MCG TABLET PO SCH (05:41)
[2022-11-11 06:19] LABS: BUN Creatinine Ratio 12.9 (10-20); Calcium 7.9 mg/dl (8.6-10.3); Creatinine Clr Calc Pharmacy 33.4 ml/min; Est GFR (African American) 41.1 ml/min; Est GFR (Non-African American) 35.5 ml/min; Magnesium 2.1 mg/dl (1.7-2.4); Potassium 3.9 mmol/L (3.5-5.1)
--- NOTE | 2022-11-11 07:38 | Hospitalist Progress Note ---
Date of Service November 11, 2022 Assessment & Plan Admission and Anticipated Discharge Date Admission Date: November 09, 2022 Results & Data Results & Data Vital Signs (Past 12 Hours) Vital Signs Temp Pulse Pulse Resp BP Pulse Ox O2 Del Method 11/10/22 22:00 81 11/10/22 20:40 Room Air 11/10/22 22:00 11/10/22 23:42 74 22 94 Room Air 11/10/22 23:11 36.7 C 85 20 147/67 H 92 Room Air O2 Del Method 11/10/22 22:00 11/10/22 20:40 11/10/22 22:00 Room Air 11/10/22 23:42 11/10/22 23:11
--- NOTE | 2022-11-11 07:42 | Hospitalist Progress Note ---
Date of Service November 11, 2022 Assessment & Plan (1) Hyperosmolar hyperglycemic state (HHS): (2) Acute kidney injury superimposed on CKD: (3) Chronic kidney disease, stage 4 (severe): (4) Sepsis: (5) Hypothyroidism: (6) Hypertension: (7) Paroxysmal atrial fibrillation: (8) Dyslipidemia: (9) CAD (coronary artery disease): (10) Diabetes: (11) COPD (chronic obstructive pulmonary disease): (12) CHF (congestive heart failure): (13) Respiratory failure: Plan Summary: Aj is an 87 y/o M with PMHx of diabetes mellitus type 2 (Lantus 20 units BID since 10/29/22 with glipizide 10mg BID), paroxysmal AFIB on low-dose Eliquis, CKD stage IV, recent urethral stricture that was dilated, COPD, hypertension, hypothyroidism, CAD, HFpEF on home Bumex therapy presented to the ER for at least 3 days of confusion, poor appetite, weakness, intermittent nausea. He had two falls at home due to weakness without LOC without head injury. No noted fevers at home per . In the ER was noted to be mildly hypoxic (88%) requiring 2L nasal cannula, febrile to 38.5, mildly tachycardic in the 90s, BP 100s. Normal WBC count. Blood glucose 747.Creatinine 2.8 (baseline creatinine 2.0), troponin 29.1, elevated BNP, procalcitonin 1.06. BioFire negative. #Sepsis -Blood cultures x2 showing Enterococcus faecalis. Continue ampicillin. MRSA nares negative. Procalcitonin 1.06 on admission -Urine culture showed pinpoint growth, re-incubating -Wound care nursing consulted for BL LE blistering wounds -CXR suggested atelectasis vs. pneumonitis -Otherwise CT chest noncon and CT abd/pelvis - no acute findings -Echocardiogram without vegetations #Hypoxic respiratory failure -Likely volume overload in the setting of HFpEF with BNP 431, positive fluid balance -Repeat CXR pending -Holding fluids. Will assess response to 1mg Bumex IV -Flutter valve, nebulized hypertonic saline -Continue metoprolol tartrate. Holding losartan -Echo: LVEF 60-65%, moderate aortic stenosis #Hyperosmolar hyperglycemic state -Potentially 2/2 superimposed infection and uncontrolled diabetes (HgbA1C from 10/12/22 was 11.5%) -BSG 747 on admission, serum Osm 316 -Electrolytes, anion gap, pH stabilized -Transitioned to diet by mouth -Continue Plasma-Lyte 60cc/hr (decreased rate due to Hx CHF) #CKD stage IV -JUDI resolved. 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 AV block, left axis deviation, right bundle #Cellulitis -Possible, covering for skin/soft tissue gilma #COPD (chronic obstructive pulmonary disease) -No home oxygen requirement. -O2 goal 88-92% -Continue home inhalers: Breo Ellipta, Incruse Ellipta #Dyslipidemia -Continue statin #CAD (coronary artery disease) -Continue statin, beta mark, aspirin -Hold losartan for JUDI #Hypertension -Holding home losartan -Continue metoprolol #Hypothyroidism -Continue home levothyroxine #Anxiety -Clonazepam 1mg PO BID FENGI: heart healthy, carb consistent DVT prophylaxis: Eliquis, low dose Dispo: potentially rehab pending PT/OT evaluations Code status: DNR/DNI Admission and Anticipated Discharge Date Admission Date: November 09, 2022 Supervising Physician Co-Signing Physician Notes Attending attestation Pt seen and examined in concert with Dr. Jackson, . Dr. Hatch. In agreement with the documented findings as noted in the resident documentation with any exceptions or additions as noted here. Complaining of dry mouth and fatigue today without worsening of symptoms overall and without new complaints at time of examination. On exam, S1/S2 nl RRR 3/6 LACI. CTAB. Abd NT/ND BS+ve Sepsis of urinary origin, likely E. faecalis - continue ampicillin, repeat BCx at 24 hours and consult ID - JAZMÍN of 3. Increase coverage to dual agent (ceftriaxone+) if symptoms worsening/change and indicated Hypotension in the setting of above - improved w/ 250 cc bolus and encourage PO hydration, hold further diuresis for now and monitor closely Acute hypoxic respiratory failure in the setting of HFpEF w/ moderate - likely adequately diuresed as returned to RA requirement. Monitor I/O/weight CKDIV - improved JUDI to 1.7 - nephrology consult appreciated, will need outpatient testing as noted Paroxysmal AF - eliquis, metoprolol Cellulitis of the left elbow - improving on ampicillin, monitor for clinical change Else see resident documentation as noted. Subjective Aj no longer has fevers/chills. Yesterday he had an episode of post- tussive vomiting. He brings up some clear/yellow sputum. His cough does not improve from lying supine to sitting upright. Tessalon Perles did not resolve his cough. He has no increasing abdominal distention or lower extremity swelling. He is constipated. No new pains or discomfort with his multiple blistering wounds on the bilateral lower extremities. Otherwise he has no chest pain, palpitations, abdominal pain, or calf pain. Review of Systems Review of Systems: All systems reviewed & are unremarkable except as noted in HPI & below Physical Exam Physical Exam: Appearance: sitting upright in chair Respiratory: 2L nasal cannula Normal respiratory effort Wet-sounding cough during exam Expiratory wheeze in lower lung acosta bilaterally, no crackles Cardiovascular: Regular rate and rhythm Normal S1, S2 3/6 Systolic murmur over aortic/pulmonic areas Lower extremities 2+ pitting edema bilaterally Extremities warm No cyanosis Gastrointestinal (Abdomen): Active bowel sounds, no pain/rebound/guarding to palpation Skin: Multiple wound dressing on lower legs bilaterally No erythema, purulence of drainage outside borders of wound dressings Genitourinary: +Lopez with yellow output Results & Data Results & Data Vital Signs (Past 12 Hours) Vital Signs Temp Pulse Pulse Resp BP Pulse Ox O2 Del Method 11/10/22 22:00 81 11/10/22 20:40 Room Air 11/10/22 22:00 11/10/22 23:42 74 22 94 Room Air 11/10/22 23:11 36.7 C 85 20 147/67 H 92 Room Air O2 Del Method 11/10/22 22:00 11/10/22 20:40 11/10/22 22:00 Room Air 11/10/22 23:42 11/10/22 23:11 (5) Hypothyroidism Hypothyroidism type: unspecified Qualified Code(s): E03.9 - Hypothyroidism, unspecified (6) Hypertension Hypertension type: essential hypertension Qualified Code(s): I10 - Essential (primary) hypertension (9) CAD (coronary artery disease) Associated angina: without angina Coronary Disease-Associated Artery/Lesion type: [place] artery [place] vs. transplanted heart: [place] heart Qualified Code(s): I25.10 - Atherosclerotic heart disease of [place] coronary artery without angina pectoris (10) Diabetes Diabetes mellitus complication status: with hyperglycemia Diabetes mellitus demand generator manager insulin use: with shelter use Diabetes mellitus type: type 2 Qualified Code(s): E11.65 - Type 2 diabetes mellitus with hyperglycemia; Z79.4 - residential (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 (11) COPD (chronic obstructive pulmonary disease) COPD type: unspecified COPD Qualified Code(s): J44.9 - Chronic obstructive pulmonary disease, unspecified (12) CHF (congestive heart failure) Heart failure chronicity: unspecified Heart failure type: unspecified Qualified Code(s): I50.9 - Heart failure, unspecified
[2022-11-11] MEDS ORDERED: BENZONATATE 100 MG CAPSULE PO ONE (08:28)
[2022-11-11] MEDS ORDERED: HYDROcodone/HOMATROPINE SYRUP 5MG/1.5MG 5ML UDP PO STA (08:29)
--- NOTE | 2022-11-11 08:45 | Nephrology Progress Note ---
Date of Service November 11, 2022 Assessment & Plan (1) Acute kidney injury: Plan: * JUDI/CKD likely reflective of severe hyperglycemia and intravascular volume depletion * Creatinine has improved from 2.8 to 1.7 following IVF * Recommend heplock IV, encourage oral hydration * Electrolyte balance is acceptable. No acute indication for HD at this time * Monitor PRP, UO (2) Chronic kidney disease, stage 4 (severe): Plan: * CKD stage G4 (advanced impairment). Baseline Cr 2.0 w/ EGFR 29 cc/min. Urine sediment has been acellular. 11/18 renal US - R 10.9 cm, L 11.5 cm. No hydronephrosis. Primary Firewall Administrator is Dr. Dixon. Renal impairment has been attributed to microvascular disease (3) Bacteremia: Plan: * 11/08/22 - 2 of 2 blood cx positive for Enterococcus * Continue IV Ampicillin. Await sensitivities * 11/10/22 echocardiogram - no valvular vegetation reported * Recommend consultation w/ ID specialist * Will need outpatient allergy testing (PCN, Cipro) due to h/o severe AIN during last hospitalization (4) Hypertension: Plan: * On Losartan, Metoprolol as outpatient * BP is currently acceptable * Hold Losartan due to JUDI/CKD (5) Hyperosmolar hyperglycemic state (HHS): Plan: * Resolved. BSG improved from 747-->176 * Insulin as per primary service Admission and Anticipated Discharge Date Admission Date: November 09, 2022 Subjective Mr. Monroy was evaluated in his hospital room this morning. He was sitting up in a chair and denied fever, skin rash, angina or dyspnea Review of Systems Constitutional: + weakness; no fever Eyes: no worsening vision Ear, Nose, Mouth, Throat: no problem reported Respiratory: no dyspnea Cardiovascular: no chest pain and no palpitations Gastrointestinal: no abdominal pain, no nausea, no vomiting and no diarrhea/loose stools Physical Exam Constitutional: not in distress Eyes: PERRL, conjunctivae normal, anicteric sclerae ENMT: external ear and nose normal, oropharynx normal Neck: trachea midline, no thyromegaly Respiratory: normal respiratory effort, lungs clear to auscultation Cardiovascular: Rate/Rhythm: regular rate and regular rhythm Heart Sounds: no murmur and no cardiac rub Extremities: + edema (trace pretibial edema. L betts wrapped) Gastrointestinal (Abdomen): normal bowel sounds, soft, nontender, no hepatosplenomegaly Skin: no rashes, warm and dry Results & Data Vital Signs (Past 12 Hours) Vital Signs Temp Pulse Pulse Resp BP BP Pulse Ox 11/11/22 08:05 36.8 C 88 21 153/67 H 89 L 11/10/22 22:00 81 11/10/22 22:00 11/10/22 23:42 74 22 94 11/10/22 23:11 36.7 C 85 20 147/67 H 92 O2 Del Method O2 Del Method 11/11/22 08:05 Room Air 11/10/22 22:00 11/10/22 22:00 Room Air 11/10/22 23:42 Room Air 11/10/22 23:11 Room Air Laboratory Results Laboratory Tests 11/11/22 05:21 Sodium 138 Potassium 3.9 Chloride 104 Carbon Dioxide 27 BUN 22 Creatinine 1.70 H D Est GFR (Non-Af Amer) 35.5 Glucose 124 H Calcium 7.9 L Phosphorus 3.0 Magnesium 2.1 Diagnostic Findings 11/10/22 Echocardiogram: LVEF 60-65%, L atrium mildly dilated, moderate aortic stenosis, mild mitral regurgitation, compared to 12/14/2022 the degree of aortic stenosis has progressed slightly PG Care Time/CCT Total # of Minutes Spent Total Time Spent with Patient: Total time spent is greater than 50% in coordination of care (as documented) at patient's floor/unit and/or counseling patient: Coding Level of Care Code 35506 SUB INP/OBS CARE 3/50MIN Diagnoses Acute kidney injury N17.9 Chronic kidney disease, stage 4 (severe) N18.4 Bacteremia R78.81 Hypertension I10 Hypertension type: essential hypertension Hyperosmolar hyperglycemic state (HHS) E11.00 (4) Hypertension Hypertension type: essential hypertension Qualified Code(s): I10 - Essential (primary) hypertension
[2022-11-11] MEDS: UMECLIDINIUM BROMIDE 62.5MCG/BLISTER 7 PUFFS/INHALER INH SCH (08:56)
[2022-11-11] MEDS: FLUTICASONE/VILANTEROL 200/25MCG 14 PUFFS/INHALER INH SCH (08:56)
[2022-11-11] MEDS: ASPIRIN 81 MG ECTAB PO SCH (08:57)
[2022-11-11] MEDS: APIXABAN 2.5 MG TAB PO SCH ×2 (08:57→21:38)
[2022-11-11] MEDS: METOPROLOL TARTRATE 25 MG TAB PO SCH ×2 (08:57→21:39)
[2022-11-11] MEDS: clonazePAM 1 MG TAB PO SCH ×2 (09:00→21:39)
[2022-11-11] MEDS: PLASMA-LYTE A 1,000 ML IV SCH (09:00)
[2022-11-11] MEDS ORDERED: BUMETANIDE 1 MG TAB PO ONE (09:48)
[2022-11-11] MEDS ORDERED: BUMETANIDE 1 MG in SYRINGE 0 ML IV ONE (10:00)
--- NOTE | 2022-11-11 10:05 | XRay Report ---
XR chest 1V portable CLINICAL HISTORY: cough TECHNIQUE: Single frontal radiograph of the chest was obtained. Comparison: Comparison is made to chest radiograph 11/08/2022 FINDINGS: Median sternotomy wires are unchanged. Calcified aortic knob is seen. The lungs are clear. No evidenc e of pleural effusion or pneumothorax. IMPRESSION: No acute abnormalities and in particular no radiographic evidence of pneumonia. ACT 112: Negative or not required by law. Electronically signed by: Dano West M.D. 11/11/2022 10:03 AM
[2022-11-11] MEDS: DOCUSATE SODIUM 100 MG CAP PO SCH ×2 (11:52→21:39)
[2022-11-11] MEDS ORDERED: LANTUS PER UNIT CHARGE SC SCH (12:00)
--- NOTE | 2022-11-11 12:43 | Pharmacy Report ---
Pharmacy Glycemic Short Note 2 - Date of Service November 11, 2022 - Glycemic Short BSG Results (Last 24 hours): 11/10/22 11/10/22 11/10/22 15:59 20:11 23:20 Glucose POC Glucose 186 H 149 H 115 H 11/11/22 11/11/22 11/11/22 04:21 05:21 07:50 Glucose 124 H POC Glucose 133 H 127 H 11/11/22 11:56 Glucose POC Glucose 139 H OUTPATIENT ANTIDIABETIC REGIMEN: * Lantus 52 units SC qAM, 50 units SC qPM * Glipizide 10 mg PO BID HbA1c: 11.5% (10/12/22) ASSESSMENT: 11/11/22 * Patient's BSGs yesterday were [phone] mg/dL. Overnight, BSGs were 115-133 mg/dL. Patient received 57 units of insulin (30 units of basal and 27 units of bolus). * Will decrease basal to 25 units since fasting decreased significantly. Since 5 units given yesterday evening, will start at lunchtime today. * Continue Novolog. 11/10: * Aj was transitioned off IV insulin last evening. Blood sugars have been in the mid 200's since then despite receiving doses of insulin very similar to what he tolerated during September 2022 admission. * Fasting BSG of 223 mg/dL. Will increase basal insulin. * Lunch BSG 246 mg/dL. Will tighten carb coverage and add overnight checks. 11/09: * YURI is an 87 year old male who presents with profound hyperglycemia (HHS?) w/ BSG > 700 mg/dL on presentation * On presentation, effective serum osmolality of 294 mOsm/kg, no anion gap (9), sodium 126, BUN 34, and SCr: 2.8 * Insulin infusion and IV fluids initiated in ED, BSGs have trended down very nicely * Diet restarted with lunch - basal ordered and insulin gtt discontinuation orders placed for ~1630 * Patient known to pharmacy glycemic service for admission in September 2022 * Of note, patient was on steroids for duration of this admission PLAN FOR INPATIENT GLYCEMIC CONTROL: * Hold outpatient oral diabetes medications * Basal insulin * Lantus 25 units SQ daily * Bolus insulin * NovoLog per scale ACHS or Q6hrs while NPO * Goal Range: Low 110 mg/dL - High 140 mg/dL * Correction Factor: 20 mg/dL/unit * Nutritional / Prandial insulin per carb ratio of 1 unit per 5 grams CHO consumed
[2022-11-11] MEDS: LANTUS PER UNIT CHARGE SC SCH (13:27)
[2022-11-11] MEDS ORDERED: SODIUM CHLORIDE 0.9% 1000ML 250 ML IV ONE (13:54)
[2022-11-11] MEDS: ACETAMINOPHEN 325 MG TAB PO PRN ×2 (17:40→21:41)
[2022-11-11] MEDS: BENZONATATE 100 MG CAPSULE PO PRN (17:40)
[2022-11-11] MEDS: FINASTERIDE 5 MG TAB PO SCH (21:39)
[2022-11-11] MEDS: TAMSULOSIN HCL 0.4 MG CAP PO SCH (21:40)
[2022-11-11] MEDS: ROSUVASTATIN CALCIUM 20 MG TAB PO SCH (21:40)
[2022-11-11] MEDS: guaiFENesin SUGAR FREE 200 MG/10 ML UDC PO PRN (21:42)
[2022-11-11] MEDS: LIDOCAINE 5% 1 PATCH TD SCH (22:30)
[2022-11-12] MEDS: PLASMA-LYTE A 1,000 ML IV SCH (03:21)
[2022-11-12 04:57] LABS: Hematocrit (blood only) 24.7 % (42.0-52.0); Hemoglobin 8.4 g/dl (14.0-18.0); Mean Corpuscular Hemoglobin 31.5 pg (25.0-34.0); Mean Corpuscular Volume 92.5 fL (80.0-100.0); Platelet Count 166 K/uL (130-400); RDW Coefficient of Variation 14.2 % (11.5-14.5); RDW Standard Deviation 47.6 fL (36.4-46.3); Red Blood Count 2.67 M/uL (4.70-6.10); White Blood Count 5.33 K/ul (4.8-10.8)
[2022-11-12 05:16] LABS: BUN Creatinine Ratio 13.4 (10-20); Calcium 8.1 mg/dl (8.6-10.3); Creatinine Clr Calc Pharmacy 38.1 ml/min; Est GFR (African American) 48.2 ml/min; Est GFR (Non-African American) 41.6 ml/min; Magnesium 2.2 mg/dl (1.7-2.4); Phosphorus 3.2 mg/dl (2.5-4.9); Potassium 3.6 mmol/L (3.5-5.1)
[2022-11-12] MEDS: guaiFENesin SUGAR FREE 200 MG/10 ML UDC PO PRN (05:24)
[2022-11-12] MEDS: ACETAMINOPHEN 325 MG TAB PO PRN ×2 (05:55→18:10)
[2022-11-12] MEDS: LEVOTHYROXINE SODIUM 88 MCG TABLET PO SCH (05:56)
[2022-11-12] MEDS: AMPICILLIN 2,000 MG in SODIUM CHLOR 0.9% AD-VAN 100 ML IV SCH ×3 (05:56→18:09)
--- NOTE | 2022-11-12 08:06 | Hospitalist Progress Note ---
Date of Service November 12, 2022 Assessment & Plan (1) Hyperosmolar hyperglycemic state (HHS): (2) Acute kidney injury superimposed on CKD: (3) Chronic kidney disease, stage 4 (severe): (4) Sepsis: (5) Hypothyroidism: (6) Hypertension: (7) Paroxysmal atrial fibrillation: (8) Dyslipidemia: (9) CAD (coronary artery disease): (10) Diabetes: (11) COPD (chronic obstructive pulmonary disease): (12) CHF (congestive heart failure): (13) Respiratory failure: Plan Summary: Aj is an 87 y/o M with PMHx of diabetes mellitus type 2 (Lantus 20 units BID since 10/29/22 with glipizide 10mg BID), paroxysmal AFIB on low-dose Eliquis, CKD stage IV, recent urethral stricture that was dilated, COPD, hypertension, hypothyroidism, CAD, HFpEF on home Bumex therapy presented to the ER for at least 3 days of confusion, poor appetite, weakness, intermittent nausea. He had two falls at home due to weakness without LOC without head injury. No noted fevers at home per . In the ER was noted to be mildly hypoxic (88%) requiring 2L nasal cannula, febrile to 38.5, mildly tachycardic in the 90s, BP 100s. Normal WBC count. Blood glucose 747.Creatinine 2.8 (baseline creatinine 2.0), troponin 29.1, elevated BNP, procalcitonin 1.06. BioFire negative. #Sepsis -Blood cultures x2 showing Enterococcus faecalis. Continue ampicillin. MRSA nares negative. Procalcitonin 1.06 on admission -Urine culture showed pinpoint growth, re-incubating -Repeat blood cx pending -Wound care nursing consulted for BL LE blistering wounds -CXR suggested atelectasis vs. pneumonitis -Otherwise CT chest noncon and CT abd/pelvis - no acute findings -Echocardiogram without vegetations -ID consult pending for antibiotic choice/duration #Hypoxic respiratory failure/fluid overload/HFpEF -Currently 97% on room air -Likely volume overload in the setting of HFpEF with BNP 431, positive fluid balance -Repeat CXR showing no acute abnormalities -Resolved with Bumex 1mg IV -Flutter valve, nebulized hypertonic saline -Continue metoprolol tartrate. Holding losartan -Echo: LVEF 60-65%, moderate aortic stenosis #Hyperosmolar hyperglycemic state -Potentially 2/2 superimposed infection and uncontrolled diabetes (HgbA1C from 10/12/22 was 11.5%) -BSG 747 on admission, serum Osm 316 -Electrolytes, anion gap, pH stabilized -Transitioned to diet by mouth -Plasmalyte dc'd #JUDI -- resolved -Recent admission for acute renal failure requiring temporarily dialysis, has follow up with [facility] nephrology -Per nephro: will need outpatient allergy testing (PCN, Cipro) due to 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 -Likely reflective of severe hyperglycemia and intravascular volume depletion #CKD stage IV -Baseline creatine 2.0, EGFR 29 cc/min -Close monitoring of intake/output (Lopez in place) -Caution with nephrotoxins -Per Nephro, renal impairment has been attributed to microvascular disease #Diabetes mellitus type 2 -see above -Home regimen since 10/29 is Lantus 20u BID and glipizide 10mg BID -Decreased from 50u BID on last discharge 10/26 -Appreciate glycemic consult #Paroxysmal atrial fibrillation -Continue chronic low dose Eliquis therapy and metoprolol -ECG: sinus rhythm with 1st deg. AV block, left axis deviation, right bundle #Cellulitis -Possible, covering for skin/soft tissue gilma #COPD (chronic obstructive pulmonary disease) -No home oxygen requirement. -O2 goal 88-92% -Continue home inhalers: Breo Ellipta, Incruse Ellipta #Dyslipidemia -Continue statin #CAD (coronary artery disease) -Continue statin, beta mark, aspirin -Hold losartan for JUDI #Hypertension -Holding home losartan -Continue metoprolol #Hypothyroidism -Continue home levothyroxine #Anxiety -Clonazepam 1mg PO BID FENGI: heart healthy, carb consistent DVT prophylaxis: Eliquis, low dose Dispo: potentially rehab pending PT/OT evaluations Code status: DNR/DNI Admission and Anticipated Discharge Date Admission Date: November 09, 2022 Supervising Physician Co-Signing Physician Notes Attending attestation Pt seen and examined in concert with Dr. Syed. In agreement with the documented findings as noted in the resident documentation with any exceptions or additions as noted here. Overall feeling better today subjectively but does seem more somnolent today - patient attributes to a poor nights sleep the night prior due to ongoing disruption int he hallway and medical care. Denies comorbid symptoms at this time. On exam, S1/S2 nl RRR 3/6 LACI. CTAB. Abd NT/ND BS+ve. Some audible slurring of speech mildly, AAOx3, CNII-XII grossly intact Somnolence - though likely related to poor sleep, will CT to r/o acute change and monitor today. Sepsis of urinary origin, likely E. faecalis - continue ampicillin, repeat BCx at 24 hours and consult ID - JAZMÍN of 3. Increase coverage to dual agent (ceftriaxone+) if symptoms worsening/change and indicated Acute hypoxic respiratory failure in the setting of HFpEF w/ moderate - t olerating room air and off IVF. Encourage POI and monitor. Monitor I/O/weight CKDIV - improved JUDI to 1.7 - nephrology consult appreciated, will need outpatient testing as noted Paroxysmal AF - eliquis, metoprolol Hypotension in the setting of above - resolved following IVF Cellulitis of the left elbow - improving on ampicillin, monitor for clinical change Else see resident documentation as noted. Subjective Seen at bedside in AM. Doing overall well. Complains that he was cold overnight and they did not let him change the thermostat -- we discussed at length and he did admit that he has been "in and out" and somewhat confused at times. Denies CP, palp, f/c, n/v, SOB, MOON, dizziness, lightheadedness, diarrhea, constipation. Review of Systems Review of Systems: per subjective Physical Exam Physical Exam: Appearance: sitting upright in chair Respiratory: Normal respiratory effort CTAB, -wrr Cardiovascular: Regular rate and rhythm Normal S1, S2 3/6 Systolic murmur over aortic/pulmonic areas Lower extremities 2+ pitting edema bilaterally Extremities warm No cyanosis Skin: Multiple wound dressing on lower legs bilaterally No erythema, purulence of drainage outside borders of wound dressings Genitourinary: +Lopez with yellow output Results & Data Results & Data Vital Signs (Past 12 Hours) Vital Signs Temp Pulse Pulse Resp BP Pulse Ox O2 Del Method 11/12/22 03:49 36.3 C L 65 20 159/67 H 97 Room Air 11/11/22 21:57 80 11/11/22 22:00 11/11/22 21:30 Room Air 11/11/22 23:29 36.4 C L 69 18 125/63 93 Room Air O2 Del Method 11/12/22 03:49 11/11/22 21:57 11/11/22 22:00 Room Air 11/11/22 21:30 11/11/22 23:29 Resident Activity Tracking Resident Involvement: Resident Care Provided Care Provided: Adult Hospital Medicine (5) Hypothyroidism Hypothyroidism type: unspecified Qualified Code(s): E03.9 - Hypothyroidism, unspecified (6) Hypertension Hypertension type: essential hypertension Qualified Code(s): I10 - Essential (primary) hypertension (9) CAD (coronary artery disease) Associated angina: without angina Coronary Disease-Associated Artery/Lesion type: resighini artery [place] vs. transplanted heart: resighini heart Qualified Code(s): I25.10 - Atherosclerotic heart disease of resighini coronary artery without angina pectoris (10) Diabetes Diabetes mellitus complication status: with hyperglycemia Diabetes mellitus chcf insulin use: with long term care pharmacist use Diabetes mellitus type: type 2 Qualified Code(s): E11.65 - Type 2 diabetes mellitus with hyperglycemia; Z79.4 - nursing home (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 (11) COPD (chronic obstructive pulmonary disease) COPD type: unspecified COPD Qualified Code(s): J44.9 - Chronic obstructive pulmonary disease, unspecified (12) CHF (congestive heart failure) Heart failure chronicity: unspecified Heart failure type: unspecified Qualified Code(s): I50.9 - Heart failure, unspecified
[2022-11-12] MEDS: DOCUSATE SODIUM 100 MG CAP PO SCH ×2 (08:28→20:22)
[2022-11-12] MEDS: ASPIRIN 81 MG ECTAB PO SCH (08:28)
[2022-11-12] MEDS: APIXABAN 2.5 MG TAB PO SCH ×2 (08:28→20:22)
[2022-11-12] MEDS: METOPROLOL TARTRATE 25 MG TAB PO SCH ×2 (08:28→20:22)
[2022-11-12] MEDS: FLUTICASONE/VILANTEROL 200/25MCG 14 PUFFS/INHALER INH SCH (08:29)
[2022-11-12] MEDS: UMECLIDINIUM BROMIDE 62.5MCG/BLISTER 7 PUFFS/INHALER INH SCH (08:29)
[2022-11-12] MEDS: clonazePAM 1 MG TAB PO SCH ×2 (08:30→20:22)
[2022-11-12] MEDS: INSULIN ASPART PER UNIT CHARGE SC SCH ×4 (08:42→20:23)
[2022-11-12] MEDS: LANTUS PER UNIT CHARGE SC SCH (08:43)
[2022-11-12] MEDS: ONDANSETRON INJ 2 MG/ML 2 ML VIAL IV PRN (09:40)
--- NOTE | 2022-11-12 14:16 | Nephrology Progress Note ---
Date of Service November 12, 2022 Assessment & Plan (1) Chronic kidney disease, stage 4 (severe): (2) Acute hyperglycemia: (3) Bacteremia: (4) UTI (urinary tract infection): (5) Hypertension: Plan Mr. Monroy is an 87 year old male admitted on 11/09/22 with generalized weakness, hyperglycemiaand enterococcal bacteremia, on admission BSG was 747, Na 128 and Cr 2.8. 2D echo was negative for endocarditis, started on ampicillin. Renal function slightly improved over last 2 days, in fact creatinine down to 1.5 this morning. Has history of stage IV CKD baseline creatinine around 2, recently had dialysis requiring JUDI during last hospitalization at [facility] 10/09/22-10/26/22 due to CHF, MELO complicated by cystitis, and JUDI/CKD due to drug induced AIN. he was taken off of dialysis after 5 dialysis session as renal function recovered. He was on prednisone for presumed AIN which was tapered off by 11/01/22. Renal function improved, creatinine down to 1.5, electrolyte acceptable however, clinically he remains significantly weak and lethargic. Blood pressure acceptable. Urine output decent. Hb 8.4 --Epogen 41667 units x 1 dose now --monitor renal function electrolyte --monitor intake and output, if remain significantly positive, will resume Bumex at a lower does Admission and Anticipated Discharge Date Admission Date: November 09, 2022 Tracy Downing was seen and evaluated this morning, he remained weak and lethargic. Denied shortness of breath. Blood pressure acceptable. No fever or chills. Electrolyte acceptable, creatinine down to 1.5. Hb dropped to 8.4 Physical Exam Constitutional: WD/WN, vitals as above + ill appearing; no acute distress Eyes: + anicteric sclerae Neck: normal visual inspection Respiratory: no respiratory distress Auscultation: + diminished lung sounds Cardiovascular: Rate/Rhythm: regular rate and regular rhythm Extremities: + edema (trace b/l LE edema) Skin: no rashes, warm and dry Neurologic: no focal motor deficits Psychiatric: Orientation: alert and oriented x 3 Results & Data Vital Signs (Past 12 Hours) Vital Signs Temp Pulse Pulse Resp BP Pulse Ox O2 Del Method 11/12/22 12:06 36.5 C 63 19 122/61 97 Room Air 11/12/22 07:00 76 11/12/22 08:10 36.3 C L 71 18 151/66 H 97 Room Air 11/12/22 03:49 36.3 C L 65 20 159/67 H 97 Room Air PG Care Time/CCT Total # of Minutes Spent Total Time Spent with Patient: Total time spent is greater than 50% in coordination of care (as documented) at patient's floor/unit and/or counseling patient: Coding Level of Care Code 90304 SUB INP/OBS CARE 3/50MIN Diagnoses Chronic kidney disease, stage 4 (severe) N18.4 Acute hyperglycemia R73.9 Bacteremia R78.81 UTI (urinary tract infection) N39.0 Hypertension I10 Hypertension type: essential hypertension (5) Hypertension Hypertension type: essential hypertension Qualified Code(s): I10 - Essential (primary) hypertension
[2022-11-12] MEDS ORDERED: EPOETIN ALFA 40,000 UNITS/ML VIAL IV STA (14:29)
--- NOTE | 2022-11-12 16:13 | CT Scan Report ---
CT SCAN OF THE BRAIN WITHOUT IV CONTRAST CLINICAL HISTORY: Change in mental status. COMPARISON STUDY: CT of the brain dated 10/11/2021. TECHNIQUE: Unenhanced axial CT scan of the brain is performed from the vertex to the skull base. A do se lowering technique was utilized adhering to the principles of ALARA. CT DOSE: 625.80 mGy.cm FINDINGS: Brain parenchyma: There is age-related involutional change noting mild subcortical and periventricula r microangiopathic disease. There is no hemorrhage, mass effect, or evidence of acute territorial isc hemia by CT criteria. Krause-white matter differentiation is preserved. No extra-axial fluid collection is seen. Ventricles, sulci, cisterns: Prominent secondary to involutional change. Intracranial vasculature: There is atherosclerotic calcification of the cavernous carotid and vertebr al arteries. Calvarium: Unremarkable. Sinuses and mastoids: The visualized paranasal sinuses are clear. There are bilateral mastoid effusio ns. Orbits: The bony orbits are grossly intact. There are bilateral ocular lens implants. IMPRESSION: There is no hemorrhage, mass effect, or evidence of acute territorial ischemia by CT chucky vela. ACT 112: Negative or not required by law. Electronically signed by: Antonio Benjamin M.D. 11/12/2022 4:11 PM
[2022-11-12] MEDS: FERROUS SULFATE 325 MG TAB PO SCH (18:10)
[2022-11-12] MEDS: TAMSULOSIN HCL 0.4 MG CAP PO SCH (20:22)
[2022-11-12] MEDS: ROSUVASTATIN CALCIUM 20 MG TAB PO SCH (20:22)
[2022-11-12] MEDS: FINASTERIDE 5 MG TAB PO SCH (20:22)
[2022-11-12] MEDS: LIDOCAINE 5% 1 PATCH TD SCH (20:22)
[2022-11-13] MEDS: AMPICILLIN 2,000 MG in SODIUM CHLOR 0.9% AD-VAN 100 ML IV SCH ×4 (00:40→17:35)
[2022-11-13] MEDS: LEVOTHYROXINE SODIUM 88 MCG TABLET PO SCH (05:06)
[2022-11-13 05:49] LABS: Hematocrit (blood only) 25.8 % (42.0-52.0); Hemoglobin 8.8 g/dl (14.0-18.0); Mean Corpuscular Hemoglobin 31.3 pg (25.0-34.0); Mean Corpuscular Hgb Conc 34.1 g/dL (32.0-36.0); Mean Corpuscular Volume 91.8 fL (80.0-100.0); Mean Platelet Volume 9.9 fL (9.4-12.4); Platelet Count 217 K/uL (130-400); RDW Coefficient of Variation 13.8 % (11.5-14.5); RDW Standard Deviation 46.1 fL (36.4-46.3); Red Blood Count 2.81 M/uL (4.70-6.10); White Blood Count 6.88 K/ul (4.8-10.8)
[2022-11-13 05:52] LABS: Albumin Level 2.5 gm/dl (3.4-5.0); Bilirubin,Total 0.3 mg/dl (0.2-1.0); Calcium 7.5 mg/dl (8.6-10.3); Potassium 3.5 mmol/L (3.5-5.1)
[2022-11-13 05:58] LABS: Albumin Globulin Ratio 0.9 (0.9-2); BUN Creatinine Ratio 11.3 (10-20); Creatinine Clr Calc Pharmacy 42.6 ml/min; Est GFR (African American) 55.3 ml/min; Est GFR (Non-African American) 47.7 ml/min; Globulin 2.8 gm/dl (2.5-4.0); Total Protein 5.3 gm/dl (6.0-8.3)
[2022-11-13 06:01] LABS: ALC (manual) 1.58 K/uL (1.2-3.4); ANC (manual) 4.82 K/uL (1.4-6.5); Echinocytes 3+; Eosinophils # (manual) 0.07 K/uL (0-0.50); Eosinophils % (manual) 1 %; Lymphocytes # (manual) 1.58 K/uL (1.2-3.4); Lymphocytes % (manual) 23 %; Metamyelocytes # (manual) 0.14 K/uL (0-0); Metamyelocytes % (manual) 2 %; Monocytes # (manual) 0.28 K/uL (0.11-0.59); Monocytes % (manual) 4 %; Neutrophils # (manual) 4.82 K/uL (1.40-6.50); Neutrophils % (manual) 70 %; Polychromasia 1+
[2022-11-13] MEDS: APIXABAN 2.5 MG TAB PO SCH ×2 (07:45→19:51)
[2022-11-13] MEDS: FERROUS SULFATE 325 MG TAB PO SCH ×2 (07:45→17:35)
[2022-11-13] MEDS: METOPROLOL TARTRATE 25 MG TAB PO SCH ×2 (07:46→19:51)
[2022-11-13] MEDS: DOCUSATE SODIUM 100 MG CAP PO SCH ×2 (07:46→19:52)
[2022-11-13] MEDS: ASPIRIN 81 MG ECTAB PO SCH (07:46)
[2022-11-13] MEDS: UMECLIDINIUM BROMIDE 62.5MCG/BLISTER 7 PUFFS/INHALER INH SCH (07:46)
[2022-11-13] MEDS: FLUTICASONE/VILANTEROL 200/25MCG 14 PUFFS/INHALER INH SCH (07:47)
[2022-11-13] MEDS: ACETAMINOPHEN 325 MG TAB PO PRN (07:50)
[2022-11-13] MEDS: clonazePAM 1 MG TAB PO SCH ×2 (07:50→19:55)
[2022-11-13] MEDS ORDERED: POTASSIUM CHLORIDE PWD 20 MEQ PACK PO ONE (08:15)
[2022-11-13] MEDS: INSULIN ASPART PER UNIT CHARGE SC SCH ×4 (08:53→21:10)
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
[2022-11-13] MEDS ORDERED: LANTUS PER UNIT CHARGE SC ONE (12:00)
--- NOTE | 2022-11-13 12:58 | Nephrology Progress Note ---
Date of Service November 13, 2022 Assessment & Plan (1) Chronic kidney disease, stage 4 (severe): (2) Acute hyperglycemia: (3) Bacteremia: (4) UTI (urinary tract infection): (5) Hypertension: Plan Mr. Monroy is an 87 year old male admitted on 11/09/22 with generalized weakness, hyperglycemiaand enterococcal bacteremia, on admission BSG was 747, Na 128 and Cr 2.8. 2D echo was negative for endocarditis, started on ampicillin. Renal function slightly improved over last 2 days, in fact creatinine down to 1.5 this morning. Has history of stage IV CKD baseline creatinine around 2, recently had dialysis requiring JUDI during last hospitalization at [facility] 10/09/22-10/26/22 due to CHF, MELO complicated by cystitis, and JUDI/CKD due to drug induced AIN. he was taken off of dialysis after 5 dialysis session as renal function recovered. He was on prednisone for presumed AIN which was tapered off by 11/01/22. Renal function improved, creatinine down to 1.4, electrolyte acceptable however, clinically he remains significantly weak and lethargic. Blood pressure acceptable. Urine output decent. Hb 8.4, Epogen 34486 units x 1 dose on 11/12/22. -- suggest restarting on Bumex 1 mg daily, monitor renal function electrolyte, monitor intake and output -- as renal function improved, electrolyte acceptable, will sign off and see him in office in next few weeks. Admission and Anticipated Discharge Date Admission Date: November 09, 2022 Tracy Downing was seen and evaluated this morning, he was c/o back pain, difficulty sleeping as the bed was uncomfortable and he is feeling cold all the time and requesting to be in a different room. Denied shortness of breath. Blood pressure acceptable. No fever or chills. Electrolyte acceptable, creatinine down to 1.4. Hb dropped to 8.4, received Epogen on 11/12/22 Review of Systems Review of Systems: detailed review of system was done and pertinent positives and negatives are mentioned above. Physical Exam Constitutional: WD/WN, vitals as above + ill appearing; no acute distress Eyes: + anicteric sclerae Neck: normal visual inspection Respiratory: no respiratory distress Auscultation: + diminished lung sounds Cardiovascular: Rate/Rhythm: regular rate and regular rhythm Extremities: + edema (trace b/l LE edema) Skin: no rashes, warm and dry Neurologic: no focal motor deficits Psychiatric: Orientation: alert and oriented x 3 Results & Data Vital Signs (Past 12 Hours) Vital Signs Temp Pulse Resp BP BP Pulse Ox O2 Del Method 11/13/22 12:05 36.6 C 65 21 129/74 95 Room Air 11/13/22 08:10 36.7 C 95 H 21 113/52 L 94 Room Air 11/13/22 03:00 36.5 C 86 21 157/73 H 91 Room Air PG Care Time/CCT Total # of Minutes Spent Total Time Spent with Patient: Total time spent is greater than 50% in coordination of care (as documented) at patient's floor/unit and/or counseling patient: Coding Level of Care Code 76206 SUB INP/OBS CARE 2/35MIN Diagnoses Chronic kidney disease, stage 4 (severe) N18.4 Acute hyperglycemia R73.9 Bacteremia R78.81 UTI (urinary tract infection) N39.0 Hypertension I10 Hypertension type: essential hypertension (5) Hypertension Hypertension type: essential hypertension Qualified Code(s): I10 - Essential (primary) hypertension
[2022-11-13] MEDS: ACETAMINOPHEN 500 MG TAB PO SCH (13:31)
[2022-11-13] MEDS: DICLOFENAC SOD 1% GEL 100 GM TUBE EXT SCH ×2 (14:02→19:53)
[2022-11-13] MEDS: FINASTERIDE 5 MG TAB PO SCH (19:51)
[2022-11-13] MEDS: TAMSULOSIN HCL 0.4 MG CAP PO SCH (19:51)
[2022-11-13] MEDS: ROSUVASTATIN CALCIUM 20 MG TAB PO SCH (19:52)
[2022-11-13] MEDS: LIDOCAINE 5% 1 PATCH TD SCH (19:55)
[2022-11-14] MEDS: AMPICILLIN 2,000 MG in SODIUM CHLOR 0.9% AD-VAN 100 ML IV SCH ×4 (00:49→17:23)
[2022-11-14] MEDS: ACETAMINOPHEN 500 MG TAB PO SCH ×4 (00:49→20:38)
[2022-11-14 04:56] LABS: Hematocrit (blood only) 26.2 % (42.0-52.0); Hemoglobin 8.9 g/dl (14.0-18.0); Mean Corpuscular Hemoglobin 31.3 pg (25.0-34.0); Mean Corpuscular Volume 92.3 fL (80.0-100.0); Mean Platelet Volume 9.4 fL (9.4-12.4); Nucleated RBC # (auto) 0.02 K/uL (0-0.12); Nucleated RBC % (auto) 0.2 %; Platelet Count 229 K/uL (130-400); RDW Coefficient of Variation 13.7 % (11.5-14.5); RDW Standard Deviation 46.4 fL (36.4-46.3); Red Blood Count 2.84 M/uL (4.70-6.10); White Blood Count 8.04 K/ul (4.8-10.8)
[2022-11-14 05:08] LABS: Albumin Globulin Ratio 0.9 (0.9-2); Albumin Level 2.5 gm/dl (3.4-5.0); BUN Creatinine Ratio 10.7 (10-20); Bilirubin,Total 0.3 mg/dl (0.2-1.0); Calcium 7.8 mg/dl (8.6-10.3); Creatinine Clr Calc Pharmacy 46.9 ml/min; Est GFR (Non-African American) 53.5 ml/min; Globulin 2.9 gm/dl (2.5-4.0); Magnesium 2.1 mg/dl (1.7-2.4); Potassium 3.5 mmol/L (3.5-5.1); Total Protein 5.4 gm/dl (6.0-8.3)
[2022-11-14 05:41] LABS: Basophils # (auto) 0.04 K/uL (0-0.2); Basophils % (auto) 0.5 %; Echinocytes 1+; Eosinophils # (auto) 0.06 K/uL (0-0.50); Eosinophils % (auto) 0.7 %; Immature Granulocytes # (auto) 0.41 K/uL (0.01-0.20); Immature Granulocytes % (auto) 5.1 %; Lymphocytes # (auto) 1.92 K/uL (1.2-3.4); Lymphocytes % (auto) 23.9 %; Monocytes % (auto) 7.5 %; Neutrophils # (auto) 5.01 K/uL (1.40-6.50); Neutrophils % (auto) 62.3 %; Polychromasia 1+
[2022-11-14] MEDS: LEVOTHYROXINE SODIUM 88 MCG TABLET PO SCH (05:45)
--- NOTE | 2022-11-14 07:28 | Hospitalist Progress Note ---
Date of Service November 14, 2022 Assessment & Plan (1) Hyperosmolar hyperglycemic state (HHS): Plan: 87 y/o M with PMHx of diabetes mellitus type 2 (Lantus 20 units BID since 10/29/22 with glipizide 10mg BID), paroxysmal AFIB on low-dose Eliquis, CKD stage IV?, recent urethral stricture s/p dilation, COPD, hypertension, hypothyroidism, CAD, HFpEF on home Bumex therapy presented for generalized weakness and malaise, found to have bacteremia from UTI. Bacteremia with Sepsis from urinary source -Blood cultures x2 showing Enterococcus faecalis. Continue ampicillin 2g IV q6h. MRSA nares negative. Procalcitonin 1.06 on admission -Urine culture showed pinpoint growth, re-incubating -Repeat blood cx pending -Wound care nursing consulted for BL LE blistering wounds -CXR suggested atelectasis vs. pneumonitis -Otherwise CT chest noncon and CT abd/pelvis - no acute findings -TTE without vegetations -ID consulted: recommended Levofloxacin, but due to prior AIN from other fluoroquinolone will continue with Ampicillin -Ampicillin x 14 days of treatment Metabolic encephalopathy with mild cognitive impairment -11/[address] Reorient. Follow clinically. Pain control (bilat flank pains) w/ scheduled Tylenol. Continue lidocaine patch. Added Voltaren gel. Hypoxic respiratory failure/fluid overload/HFpEF, resolved -Continue metoprolol tartrate. Holding losartan -Echo: LVEF 60-65%, moderate aortic stenosis Hyperosmolar hyperglycemic state, resolved. Type 2 DM -Potentially 2/2 superimposed infection and uncontrolled diabetes (HgbA1C from 10/12/22 was 11.5%) -BSG 747 on admission, serum Osm 316 -Pharmacy glycemic consult following JUDI on CKD --resolving -Recent admission for acute renal failure requiring temporarily dialysis[facility] -Per nephro: will need outpatient allergy testing (PCN, Cipro) due to 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 Paroxysmal atrial fibrillation -Continue chronic low dose Eliquis therapy and metoprolol -ECG: sinus rhythm with 1st deg. AV block, left axis deviation, right bundle Cellulitis -Wound care of LLE. Adequate coverage from the abx above. COPD (chronic obstructive pulmonary disease) -No home oxygen requirement. -O2 goal 88-92% -Continue home inhalers: Breo Ellipta, Incruse Ellipta Dyslipidemia -Continue statin CAD (coronary artery disease) -Continue statin, beta mark, aspirin Hypertension -Holding home losartan -Continue metoprolol Hypothyroidism -Continue home levothyroxine Anxiety -Clonazepam 1mg PO BID FEN/GI: heart healthy, carb consistent DVT prophylaxis: Eliquis, low dose Dispo: PCU. potentially rehab pending PT/OT evaluations Code status: DNR/DNI. PT recommends SNF. OT: depends on if makes further progress. (2) Acute kidney injury superimposed on CKD: (3) Chronic kidney disease, stage 4 (severe): (4) Sepsis: (5) Hypothyroidism: (6) Hypertension: (7) Paroxysmal atrial fibrillation: (8) Dyslipidemia: (9) CAD (coronary artery disease): (10) Diabetes: (11) COPD (chronic obstructive pulmonary disease): (12) CHF (congestive heart failure): (13) Respiratory failure: Admission and Anticipated Discharge Date Admission Date: November 09, 2022 Supervising Physician Co-Signing Physician Notes I personally examined the patient and verified all [place] points of history and exam, discussed case, and agree with decision making with Dr Gibbs Feeling okayback pain better than earlier. Still planning on discharge to Center care. Sepsis of urinary origin, likely E. faecalis - JAZMÍN of 3 with negative TTE, negative repeat BCx. Infectious disease recommends 14 days of antibioticsampicillin for now, they recommended transition to Levaquin, but given that the patient had recent AIN to ciprofloxacinafter discussion with patient and family, we will complete treatment fully with IV ampicillingiven that he will be going from the hospital to SNF, this should be very feasible. Delirium, likely 2/2 metabolic encephalopathy in the setting of UTI - CT head WNL at onset, labs as noted - consolidate sleep schedule and avoid disruption qHS, consider 1:1 with disruptive behaviors seems to be better this afternoon. CKDIV -continue to follow creatinine Paroxysmal AF - eliquis, metoprolol Hypotension in the setting of above - resolved following IVF Cellulitis of the left elbow - improving on ampicillin, monitor for clinical change Otherwise as above, anticipate discharge center care Subjective 11/14: Patient seen and examined at bedside. No acute events overnight. Patient states he is in a significant about of pain in his lower back, states that he cannot sleep another night on the bed here and would rather sleep on the floor. He denies shortness of breath, chest pain, or nausea/vomiting. Review of Systems Review of Systems: As per above Physical Exam Constitutional: + acute distress, + ill appearing and + obese Eyes: Anicteric sclerae ENMT: External ears and nose normal Respiratory: normal respiratory effort, lungs clear to auscultation Cardiovascular: Rate/Rhythm: regular rate and regular rhythm Heart Sounds: + murmur Skin: Bandage at left elbow, +2 pitting edema of bilateral lower extremities. Psychiatric: Some confusion, appears drowsy and uncomfortable. Genitourinary: Lopez catheter in place Results & Data Results & Data Vital Signs (Past 12 Hours) Vital Signs Temp Pulse Resp BP Pulse Ox O2 Del Method 11/14/22 03:00 36.4 C L 81 19 158/66 H 94 Room Air 11/13/22 23:00 36.5 C 74 20 167/67 H 94 Room Air (5) Hypothyroidism Hypothyroidism type: unspecified Qualified Code(s): E03.9 - Hypothyroidism, unspecified (6) Hypertension Hypertension type: essential hypertension Qualified Code(s): I10 - Essential (primary) hypertension (9) CAD (coronary artery disease) Associated angina: without angina Coronary Disease-Associated Artery/Lesion type: [place] artery [place] vs. 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
[2022-11-14] MEDS: INSULIN ASPART PER UNIT CHARGE SC SCH ×4 (08:52→20:39)
[2022-11-14] MEDS: LANTUS PER UNIT CHARGE SC SCH (08:52)
[2022-11-14] MEDS: ASPIRIN 81 MG ECTAB PO SCH (08:53)
[2022-11-14] MEDS: DOCUSATE SODIUM 100 MG CAP PO SCH ×2 (08:53→20:38)
[2022-11-14] MEDS: FERROUS SULFATE 325 MG TAB PO SCH ×2 (08:53→17:23)
[2022-11-14] MEDS: APIXABAN 2.5 MG TAB PO SCH ×2 (08:53→20:38)
[2022-11-14] MEDS: DICLOFENAC SOD 1% GEL 100 GM TUBE EXT SCH ×3 (08:54→20:38)
[2022-11-14] MEDS: FLUTICASONE/VILANTEROL 200/25MCG 14 PUFFS/INHALER INH SCH (08:54)
[2022-11-14] MEDS: UMECLIDINIUM BROMIDE 62.5MCG/BLISTER 7 PUFFS/INHALER INH SCH (08:55)
[2022-11-14] MEDS: METOPROLOL TARTRATE 25 MG TAB PO SCH ×2 (08:56→20:38)
[2022-11-14] MEDS: clonazePAM 1 MG TAB PO SCH ×2 (08:57→20:38)
--- NOTE | 2022-11-14 10:16 | Pharmacy Report ---
Pharmacy Glycemic Short Note 2 - Date of Service November 14, 2022 - Glycemic Short BSG Results (Last 24 hours): 11/13/22 11/13/22 11/13/22 11:50 17:02 20:35 Glucose POC Glucose 155 H 189 H 182 H 11/14/22 11/14/22 04:11 07:25 Glucose 81 POC Glucose 93 OUTPATIENT ANTIDIABETIC REGIMEN: * Lantus 52 units SC qAM, 50 units SC qPM * Glipizide 10 mg PO BID HbA1c: 11.5% (10/12/22) ASSESSMENT: 11/14/22 * BSGs have generally trended down over past 48 hours * Decreased basal insulin yesterday (fasting BSG of 93 mg/dL this morning) * Will switch to BID insulin today to allow for adjustment this evening pending lunch BSG * BSGs trended up throughout the day yesterday - 93, 155, 189, 182 mg/dL * Will slightly tighten carb coverage today 11/11/22 * Patient's BSGs yesterday were [phone] mg/dL. Overnight, BSGs were 115-133 mg/dL. Patient received 57 units of insulin (30 units of basal and 27 units of bolus). * Will decrease basal to 25 units since fasting decreased significantly. Since 5 units given yesterday evening, will start at lunchtime today. * Continue Novolog. 11/10: * Aj was transitioned off IV insulin last evening. Blood sugars have been in the mid 200's since then despite receiving doses of insulin very similar to what he tolerated during September 2022 admission. * Fasting BSG of 223 mg/dL. Will increase basal insulin. * Lunch BSG 246 mg/dL. Will tighten carb coverage and add overnight checks. 11/09: * YURI is an 87 year old male who presents with profound hyperglycemia (HHS?) w/ BSG > 700 mg/dL on presentation * On presentation, effective serum osmolality of 294 mOsm/kg, no anion gap (9), sodium 126, BUN 34, and SCr: 2.8 * Insulin infusion and IV fluids initiated in ED, BSGs have trended down very nicely * Diet restarted with lunch - basal ordered and insulin gtt discontinuation orders placed for ~1630 * Patient known to pharmacy glycemic service for admission in September 2022 * Of note, patient was on steroids for duration of this admission PLAN FOR INPATIENT GLYCEMIC CONTROL: * Hold outpatient oral diabetes medications * Basal insulin * Lantus 10 units SC daily * Lantus 0-5 units SC HS (see EHR for details) * Bolus insulin * NovoLog per scale ACHS or Q6hrs while NPO * Goal Range: Low 110 mg/dL - High 140 mg/dL * Correction Factor: 20 mg/dL/unit * Nutritional / Prandial insulin per carb ratio of 1 unit per 6 grams CHO consumed
--- NOTE | 2022-11-14 19:14 | Billing Data ---
Date of Service November 14, 2022 Coding Level of Care Code 34243 SUB INP/OBS CARE MIN
[2022-11-14] MEDS: FINASTERIDE 5 MG TAB PO SCH (20:38)
[2022-11-14] MEDS: TAMSULOSIN HCL 0.4 MG CAP PO SCH (20:38)
[2022-11-14] MEDS: ROSUVASTATIN CALCIUM 20 MG TAB PO SCH (20:38)
[2022-11-14] MEDS: LIDOCAINE 5% 1 PATCH TD SCH (20:39)
[2022-11-14] MEDS ORDERED: LANTUS PER UNIT CHARGE SC SCH (21:00)
[2022-11-15] MEDS: AMPICILLIN 2,000 MG in SODIUM CHLOR 0.9% AD-VAN 100 ML IV SCH ×4 (00:25→17:11)
[2022-11-15] MEDS: ACETAMINOPHEN 500 MG TAB PO SCH ×3 (04:01→22:04)
[2022-11-15] MEDS: LEVOTHYROXINE SODIUM 88 MCG TABLET PO SCH (04:01)
[2022-11-15 05:04] LABS: Hemoglobin 9.8 g/dl (14.0-18.0); Mean Corpuscular Hemoglobin 31.5 pg (25.0-34.0); Mean Corpuscular Hgb Conc 33.8 g/dL (32.0-36.0); Mean Corpuscular Volume 93.2 fL (80.0-100.0); Mean Platelet Volume 9.1 fL (9.4-12.4); Nucleated RBC # (auto) 0.04 K/uL (0-0.12); Nucleated RBC % (auto) 0.5 %; Platelet Count 276 K/uL (130-400); RDW Coefficient of Variation 14.6 % (11.5-14.5); RDW Standard Deviation 48.4 fL (36.4-46.3); Red Blood Count 3.11 M/uL (4.70-6.10); White Blood Count 7.79 K/ul (4.8-10.8)
[2022-11-15 05:22] LABS: BUN Creatinine Ratio 9.6 (10-20); Calcium 8.4 mg/dl (8.6-10.3); Creatinine Clr Calc Pharmacy 41.8 ml/min; Est GFR (African American) 53.8 ml/min; Est GFR (Non-African American) 46.5 ml/min; Potassium 3.7 mmol/L (3.5-5.1)
[2022-11-15 05:27] LABS: ANC (manual) 5.92 K/uL (1.4-6.5); Eosinophils # (manual) 0.08 K/uL (0-0.50); Eosinophils % (manual) 1 %; Lymphocytes % (manual) 18 %; Monocytes # (manual) 0.31 K/uL (0.11-0.59); Monocytes % (manual) 4 %; Myelocytes # (manual) 0.08 K/uL (0-0); Myelocytes % (manual) 1 %; Neutrophils # (manual) 5.92 K/uL (1.40-6.50); Neutrophils % (manual) 76 %; Polychromasia 1+
--- NOTE | 2022-11-15 07:24 | Hospitalist Progress Note ---
Date of Service November 15, 2022 Assessment & Plan (1) Hyperosmolar hyperglycemic state (HHS): Plan: 87 y/o M with PMHx of diabetes mellitus type 2 (Lantus 20 units BID since 10/29/22 with glipizide 10mg BID), paroxysmal AFIB on low-dose Eliquis, CKD stage IV?, recent urethral stricture s/p dilation, COPD, hypertension, hypothyroidism, CAD, HFpEF on home Bumex therapy presented for generalized weakness and malaise, found to have bacteremia from UTI. Bacteremia with Sepsis from urinary source -Blood cultures x2 showing Enterococcus faecalis. Continue ampicillin 2g IV q6h. MRSA nares negative. Procalcitonin 1.06 on admission -Urine culture showed pinpoint growth, re-incubating -Repeat blood cx pending -Wound care nursing consulted for BL LE blistering wounds -CXR suggested atelectasis vs. pneumonitis -Otherwise CT chest noncon and CT abd/pelvis - no acute findings -TTE without vegetations -ID consulted: recommended Levofloxacin, but due to prior AIN from other fluoroquinolone will continue with Ampicillin -Ampicillin x 14 days total IV antibiotics. Currently on day 7. Metabolic encephalopathy with mild cognitive impairment -11/[address] Reorient. Follow clinically. Pain control (bilat flank pains) w/ scheduled Tylenol. Continue lidocaine patch. Added Voltaren gel. Hypoxic respiratory failure/fluid overload/HFpEF, resolved -Continue metoprolol tartrate. Holding losartan -Echo: LVEF 60-65%, moderate aortic stenosis Hyperosmolar hyperglycemic state, resolved. Type 2 DM -Potentially 2/2 superimposed infection and uncontrolled diabetes (HgbA1C from 10/12/22 was 11.5%) -BSG 747 on admission, serum Osm 316 -Pharmacy glycemic consult following JUDI on CKD --resolving -Recent admission for acute renal failure requiring temporarily dialysis, [facility] -Per nephro: will need outpatient allergy testing (PCN, Cipro) due to 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 Paroxysmal atrial fibrillation -Continue chronic low dose Eliquis therapy and metoprolol -ECG: sinus rhythm with 1st deg. AV block, left axis deviation, right bundle Cellulitis -Wound care of LLE. Adequate coverage from the abx above. COPD (chronic obstructive pulmonary disease) -No home oxygen requirement. -O2 goal 88-92% -Continue home inhalers: Breo Ellipta, Incruse Ellipta Dyslipidemia -Continue statin CAD (coronary artery disease) -Continue statin, beta mark, aspirin Hypertension -Holding home losartan -Continue metoprolol Hypothyroidism -Continue home levothyroxine Anxiety -Clonazepam 1mg PO BID FEN/GI: heart healthy, carb consistent DVT prophylaxis: Eliquis, low dose Dispo: PCU. potentially rehab pending PT/OT evaluations Code status: DNR/DNI. PT recommends SNF. [facility] prior auth pending. (2) Acute kidney injury superimposed on CKD: (3) Chronic kidney disease, stage 4 (severe): (4) Sepsis: (5) Hypothyroidism: (6) Hypertension: (7) Paroxysmal atrial fibrillation: (8) Dyslipidemia: (9) CAD (coronary artery disease): (10) Diabetes: (11) COPD (chronic obstructive pulmonary disease): (12) CHF (congestive heart failure): (13) Respiratory failure: Admission and Anticipated Discharge Date Admission Date: November 09, 2022 Supervising Physician Co-Signing Physician Notes I personally examined the patient and verified all aguayo points of history and exam, discussed case, and agree with decision making with Dr Gibbs walkng the hall, doing well. notes that he slept better in recliner and back pain better as well. vitals noted, walking halls w walker nad heent nc at mmm breathing unlabored no accessory muscles good effort Sepsis of urinary origin, likely E. faecalis - JAZMÍN of 3 with negative TTE, negative repeat BCx. Infectious disease recommends 14 days of antibioticsampicillin for now, they recommended transition to Levaquin, but given that the patient had recent AIN to ciprofloxacinafter discussion 11/14 with patient and family, we will complete treatment fully with IV ampicillingiven that he will be going from the hospital to SNF, this should be very feasible. Delirium, likely 2/2 metabolic encephalopathy in the setting of UTI - improved/resolved CKDIV -continue to follow creatinine - stable Paroxysmal AF - eliquis, metoprolol Hypotension in the setting of above - resolved following IVF Cellulitis of the left elbow - improving on ampicillin, monitor for clinical change Otherwise as above, anticipate discharge center care Subjective 11/15: Patient seen and examined at bedside. Patient is seated in recliner with legs elevated. He states that he slept much better last night as he was able to sleep in the recliner. He states he feels much more well rested. He denies any back pain this morning. Denies chest pain, shortness of breath, body aches or chills. Review of Systems Review of Systems: As per above Physical Exam Constitutional: + acute distress, + ill appearing and + obese Eyes: Anicteric sclerae ENMT: External ears and nose normal. Moist mucous membranes Respiratory: normal respiratory effort, lungs clear to auscultation Cardiovascular: Rate/Rhythm: regular rate and regular rhythm Heart Sounds: + murmur Musculoskeletal: Moves all limbs independently. Skin: Bandage at left elbow and lower extremity. Psychiatric: A+Ox3, euthymic affect Genitourinary: Lopez catheter in place. Results & Data Results & Data Vital Signs (Past 12 Hours) Vital Signs Temp Pulse Resp BP Pulse Ox O2 Del Method 11/15/22 03:43 36.6 C 82 19 147/75 H 94 Room Air 11/14/22 23:07 36.6 C 69 19 179/83 H 95 Room Air 11/14/22 19:38 36.5 C 73 18 124/68 99 Room Air Resident Activity Tracking Resident Involvement: Resident Care Provided Care Provided: Adult Hospital Medicine (5) Hypothyroidism Hypothyroidism type: unspecified Qualified Code(s): E03.9 - Hypothyroidism, unspecified (6) Hypertension Hypertension type: essential hypertension Qualified Code(s): I10 - Essential (primary) hypertension (9) CAD (coronary artery disease) Associated angina: without angina Coronary Disease-Associated Artery/Lesion type: [place] artery [place] vs. transplanted heart: [place] heart Qualified Code(s): I25.10 - Atherosclerotic heart disease of [place] coronary artery without angina pectoris (10) Diabetes Diabetes mellitus complication status: with hyperglycemia Diabetes mellitus prison insulin use: with snuff drier use Diabetes mellitus type: type 2 Qualified Code(s): E11.65 - Type 2 diabetes mellitus with hyperglycemia; Z79.4 - longterm (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 (11) COPD (chronic obstructive pulmonary disease) COPD type: unspecified COPD Qualified Code(s): J44.9 - Chronic obstructive pulmonary disease, unspecified (12) CHF (congestive heart failure) Heart failure chronicity: unspecified Heart failure type: unspecified Qualified Code(s): I50.9 - Heart failure, unspecified
[2022-11-15] MEDS: LANTUS PER UNIT CHARGE SC SCH (08:19)
[2022-11-15] MEDS: INSULIN ASPART PER UNIT CHARGE SC SCH ×4 (08:19→21:59)
[2022-11-15] MEDS: FERROUS SULFATE 325 MG TAB PO SCH ×2 (08:20→17:11)
[2022-11-15] MEDS: ASPIRIN 81 MG ECTAB PO SCH (08:20)
[2022-11-15] MEDS: APIXABAN 2.5 MG TAB PO SCH ×2 (08:20→20:12)
[2022-11-15] MEDS: DOCUSATE SODIUM 100 MG CAP PO SCH ×2 (08:20→20:13)
[2022-11-15] MEDS: UMECLIDINIUM BROMIDE 62.5MCG/BLISTER 7 PUFFS/INHALER INH SCH (08:21)
[2022-11-15] MEDS: FLUTICASONE/VILANTEROL 200/25MCG 14 PUFFS/INHALER INH SCH (08:21)
[2022-11-15] MEDS: METOPROLOL TARTRATE 25 MG TAB PO SCH ×2 (08:21→20:12)
[2022-11-15] MEDS: DICLOFENAC SOD 1% GEL 100 GM TUBE EXT SCH ×3 (08:21→20:17)
[2022-11-15] MEDS: clonazePAM 1 MG TAB PO SCH ×2 (08:23→20:16)
--- NOTE | 2022-11-15 16:18 | Billing Data ---
Date of Service November 15, 2022 Coding Level of Care Code 76806 SUB INP/OBS CARE
[2022-11-15] MEDS ORDERED: POTASSIUM CHLORIDE PWD 20 MEQ PACK PO ONE (18:15)
[2022-11-15] MEDS: TAMSULOSIN HCL 0.4 MG CAP PO SCH (20:12)
[2022-11-15] MEDS: FINASTERIDE 5 MG TAB PO SCH (20:13)
[2022-11-15] MEDS: ROSUVASTATIN CALCIUM 20 MG TAB PO SCH (20:13)
[2022-11-15] MEDS: LIDOCAINE 5% 1 PATCH TD SCH (20:17)
[2022-11-16] MEDS: AMPICILLIN 2,000 MG in SODIUM CHLOR 0.9% AD-VAN 100 ML IV SCH ×3 (00:05→12:19)
[2022-11-16 05:17] LABS: Hematocrit (blood only) 29.8 % (42.0-52.0); Hemoglobin 9.9 g/dl (14.0-18.0); Mean Corpuscular Hemoglobin 31.7 pg (25.0-34.0); Mean Corpuscular Hgb Conc 33.2 g/dL (32.0-36.0); Mean Corpuscular Volume 95.5 fL (80.0-100.0); Mean Platelet Volume 8.7 fL (9.4-12.4); Platelet Count 278 K/uL (130-400); RDW Standard Deviation 50.9 fL (36.4-46.3); Red Blood Count 3.12 M/uL (4.70-6.10); White Blood Count 6.34 K/ul (4.8-10.8)
[2022-11-16] MEDS: LEVOTHYROXINE SODIUM 88 MCG TABLET PO SCH (05:17)
[2022-11-16] MEDS: ACETAMINOPHEN 500 MG TAB PO SCH ×2 (05:17→13:03)
[2022-11-16 05:31] LABS: BUN Creatinine Ratio 9.6 (10-20); Creatinine Clr Calc Pharmacy 44.8 ml/min; Est GFR (African American) 59.6 ml/min; Est GFR (Non-African American) 51.4 ml/min; Magnesium 2.2 mg/dl (1.7-2.4); Potassium 3.8 mmol/L (3.5-5.1)
[2022-11-16 05:51] LABS: Basophils # (auto) 0.03 K/uL (0-0.2); Basophils % (auto) 0.5 %; Eosinophils # (auto) 0.09 K/uL (0-0.50); Eosinophils % (auto) 1.4 %; Immature Granulocytes # (auto) 0.37 K/uL (0.01-0.20); Immature Granulocytes % (auto) 5.8 %; Lymphocytes # (auto) 1.74 K/uL (1.2-3.4); Lymphocytes % (auto) 27.4 %; Monocytes # (auto) 0.53 K/uL (0.11-0.59); Monocytes % (auto) 8.4 %; Neutrophils # (auto) 3.58 K/uL (1.40-6.50); Neutrophils % (auto) 56.5 %; Polychromasia 1+
[2022-11-16] MEDS: LANTUS PER UNIT CHARGE SC SCH (08:47)
[2022-11-16] MEDS: INSULIN ASPART PER UNIT CHARGE SC SCH ×2 (08:47→12:07)
[2022-11-16] MEDS: UMECLIDINIUM BROMIDE 62.5MCG/BLISTER 7 PUFFS/INHALER INH SCH (08:48)
[2022-11-16] MEDS: FLUTICASONE/VILANTEROL 200/25MCG 14 PUFFS/INHALER INH SCH (08:48)
[2022-11-16] MEDS: FERROUS SULFATE 325 MG TAB PO SCH (08:49)
[2022-11-16] MEDS: DOCUSATE SODIUM 100 MG CAP PO SCH (08:49)
[2022-11-16] MEDS: clonazePAM 1 MG TAB PO SCH (08:49)
[2022-11-16] MEDS: DICLOFENAC SOD 1% GEL 100 GM TUBE EXT SCH ×2 (08:49→13:03)
[2022-11-16] MEDS: ASPIRIN 81 MG ECTAB PO SCH (08:49)
[2022-11-16] MEDS: APIXABAN 2.5 MG TAB PO SCH (08:49)
[2022-11-16] MEDS: METOPROLOL TARTRATE 25 MG TAB PO SCH (08:50)
[2022-11-16] MEDS: ONDANSETRON INJ 2 MG/ML 2 ML VIAL IV PRN (08:56)
--- NOTE | 2022-11-16 10:50 | Discharge Summary ---
Date of Service November 16, 2022 Admission HPI Per Admitting Provider 87-year-old male past medical history significant for CKD stage III, recent urethral stricture that was dilated, type 2 diabetes, COPD, hypertension, hypothyroidism, CAD, HFpEF on home Bumex therapy presented to the ER for at least 3 days of confusion, poor appetite, weakness, intermittent nausea. Has had two falls at home due to weakness without LOC without head injury, but has needed help from EMS services to get back up. No noted fevers at home per . reports BSGs the last few days have ranged 170-250, and that he has been on Lantus 20u BID since 10/29 along with his glipizide 10mg BID. She notes very poor appetite in the last 3 days (one day having a few bites of oatmeal, a few bites of grilled cheese, and basically nothing else for example). In the ER was noted to be mildly hypoxic requiring 2L nasal cannula, febrile to 38.5, mildly tachycardic in the 90s, BP 100s. Notable for normal WBC count, hemoglobin 9.8 with normal MCV (relatively chronic), platelets 125, sodium 126 (corrected to 136), BSG 747, creatinine 2.8 (baseline creatinine 2.0), troponin 29.1, elevated BNP, procalcitonin 1.06. BioFire negative. Admission Exam Per Admitting Provider Constitutional: WD/WN, vitals as above Respiratory: normal respiratory effort, lungs CTA bilaterally Cardiovascular: HR irregularly irregular, systolic murmur 2/6, 2+ pitting edema to 3/4 up betts Gastrointestinal (Abdomen): normal bowel sounds, soft, nontender, no hepatosplenomegaly Skin: several bandages in place to lower extremities left anterior betts wound with skin erosion, no fluctuance or crepitus RLE with blistering wound, clear fluid within blister Mild erythema surrounding both of these wound areas Psychiatric: A+Ox3, euthymic affect Principal Diagnosis Bacteremia Discharge Exam Constitutional + acute distress, + ill appearing and + obese Eyes Anicteric sclerae ENMT External ears and nose normal. Moist mucous membranes Respiratory normal respiratory effort, lungs clear to auscultation Cardiovascular Rate/Rhythm: + irregularly irregular Heart Sounds: + murmur Skin Bandaging over left elbow and left lower extremity. Psychiatric A+Ox3, euthymic affect Discharge Data Allergies Allergy/AdvReac Type Severity Reaction Status Date / Time ciprofloxacin [From Cipro] AdvReac Severe Verified 11/02/22 10:00 semaglutide [From Ozempic] AdvReac Severe NAUSEA/VOMI Verified 11/02/22 10:00 TING/ANOREX IA amlodipine AdvReac Intermediate SWELLING Verified 11/02/22 10:00 OF ANKLES ropinirole AdvReac Intermediate CHANGE IN Verified 11/02/22 10:00 MENTAL STATUS Consultations 11/08/22 23:57 ED Decision to Admit Stat 11/09/22 00:45 Consult Nephrology Routine Ordered Studies 11/09/22 00:45 CT abd pelvis wo con Stat CT chest diagnostic wo con Stat 11/12/22 15:38 CT head/brain wo con Urgent Chest X-Ray 11/08/22 22:32 XR chest 1V portable HISTORY: 87 years-old Male Sepsis acute sepsis COMPARISON: Chest CT 11/09/2022 TECHNIQUE: AP view of the chest FINDINGS: Cardiac silhouette is enlarged. Prior median sternotomy with a few superior fractured wires. Trace pleural effusions with mild subsegmental bibasilar airspace opacities. No pneumothorax or overt pulmonary edema. Bones appear grossly intact. IMPRESSION: 1. Cardiomegaly without pulmonary edema. 2. Subsegmental bibasilar opacities suggestive of atelectasis versus pneumonitis. ACT 112: Negative or not required by law. The above report was generated using voice recognition software. It may contain grammatical, syntax or spelling errors. Electronically signed by: Pj Fernández M.D. 11/09/2022 6:53 AM Abdomen/Pelvis CT 11/09/22 00:45 Exam(s): CT ABDOMEN + PELVIS Without Contrast EXAM: CT Abdomen and Pelvis Without Intravenous Contrast CLINICAL HISTORY: Reason for exam: nausea, sepsis. TECHNIQUE: Axial computed tomography images of the abdomen and pelvis without intravenous contrast. Automated exposure control was utilized for the study. A dose lowering technique was utilized adhering to the principles of ALARA. COMPARISON: Dated 10/08/22 FINDINGS: Lung bases: Trace bilateral effusions and bibasilar atelectasis. ABDOMEN: Liver: Unremarkable. Gallbladder and bile ducts: Status post cholecystectomy. No ductal dilation. Pancreas: Unremarkable. No ductal dilation. Spleen: Unremarkable. No splenomegaly. Adrenals: Unremarkable. No mass. Kidneys and ureters: There is moderate bilateral perinephric stranding. No obstructing stones. No hydronephrosis. Stomach and bowel: Unremarkable. No obstruction. No mucosal thickening. PELVIS: Appendix: No findings to suggest acute appendicitis. Bladder: Unremarkable. No stones. Reproductive: Status post prostatectomy. ABDOMEN and PELVIS: Intraperitoneal space: Unremarkable. No free air. No significant fluid collection. Bones/joints: Extensive degenerative disease of the lumbar spine. No acute fracture. No dislocation. Soft tissues: Subcutaneous changes in the right anterior abdominal wall suggesting injection sites. Vasculature: There is diffuse atherosclerotic calcification of the aorta and its major branch vessels. Partially visualized coronary atherosclerotic disease. No abdominal aortic aneurysm. Lymph nodes: Unremarkable. No enlarged lymph nodes. IMPRESSION: No acute findings in the abdomen or pelvis. Electronically signed by: Panda Lagunas MD 11/09/22 01:[address] 11/09/22 00:45 Exam(s): CT CHEST Without Contrast EXAM: CT Chest Without Intravenous Contrast CLINICAL HISTORY: Reason for exam: hypoxia, sepsis. TECHNIQUE: Axial computed tomography images of the chest without intravenous contrast. Automated exposure control was utilized for the study. A dose lowering technique was utilized adhering to the principles of ALARA. COMPARISON: No relevant prior studies available. FINDINGS: Lungs: Bibasilar parenchymal atelectasis. Pleural space: Trace bilateral effusions. No pneumothorax. Heart: Moderate cardiomegaly. No significant pericardial effusion. No significant coronary artery calcifications. Bones/joints: Status post sternotomy. Degenerative disease of the thoracic spine. Soft tissues: Unremarkable. Vasculature: Extensive aortic calcification. No thoracic aortic aneurysm. Lymph nodes: Unremarkable. No enlarged lymph nodes. Other findings: Small scattered calcified granulomas. IMPRESSION: Trace bilateral effusions without definite intrathoracic infection. Electronically signed by: Panda Lagunas MD 11/09/22 01:37 AM Chest X-Ray 11/11/22 09:42 XR chest 1V portable CLINICAL HISTORY: cough TECHNIQUE: Single frontal radiograph of the chest was obtained. Comparison: Comparison is made to chest radiograph 11/08/2022 FINDINGS: Median sternotomy wires are unchanged. Calcified aortic knob is seen. The lungs are clear. No evidence of pleural effusion or pneumothorax. IMPRESSION: No acute abnormalities and in particular no radiographic evidence of pneumonia. ACT 112: Negative or not required by law. Electronically signed by: Dano West M.D. 11/11/2022 10:[address] 11/12/22 15:38 CT SCAN OF THE BRAIN WITHOUT IV CONTRAST CLINICAL HISTORY: Change in mental status. COMPARISON STUDY: CT of the brain dated 10/11/2021. TECHNIQUE: Unenhanced axial CT scan of the brain is performed from the vertex to the skull base. A dose lowering technique was utilized adhering to the principles of ALARA. CT DOSE: 625.80 mGy.cm FINDINGS: Brain parenchyma: There is age-related involutional change noting mild subcortical and periventricular microangiopathic disease. There is no hemorrhage, mass effect, or evidence of acute territorial ischemia by CT criteria. Krause-white matter differentiation is preserved. No extra-axial fluid collection is seen. Ventricles, sulci, cisterns: Prominent secondary to involutional change. Intracranial vasculature: There is atherosclerotic calcification of the cavernous carotid and vertebral arteries. Calvarium: Unremarkable. Sinuses and mastoids: The visualized paranasal sinuses are clear. There are bilateral mastoid effusions. Orbits: The bony orbits are grossly intact. There are bilateral ocular lens implants. IMPRESSION: There is no hemorrhage, mass effect, or evidence of acute territorial ischemia by CT criteria. ACT 112: Negative or not required by law. Electronically signed by: Antonio Benjamin M.D. 11/12/2022 4:11 PM Hospital Course (1) Hyperosmolar hyperglycemic state (HHS): 87 y/o M with PMHx of diabetes mellitus type 2 (Lantus 20 units BID since 10/29/22 with glipizide 10mg BID), paroxysmal AFIB on low-dose Eliquis, CKD stage IV?, recent urethral stricture s/p dilation, COPD, hypertension, hypothyroidism, CAD, HFpEF on home Bumex therapy presented for generalized weakness and malaise, found to have bacteremia from UTI. Bacteremia with Sepsis from urinary source -Blood cultures x2 showing Enterococcus faecalis. Continue ampicillin 2g IV q6h. MRSA nares negative. Procalcitonin 1.06 on admission -Urine culture showed pinpoint growth, re-incubating -Wound care nursing consulted for BL LE blistering wounds -CXR suggested atelectasis vs. pneumonitis. Otherwise CT chest noncon and CT abd/pelvis - no acute findings -TTE without vegetations -ID consulted: recommended Levofloxacin, but due to prior AIN from other fluoroquinolone will continue with Ampicillin -Ampicillin x 14 days total IV antibiotics. Currently on day 8 of 14. Plan to continue IV Ampicillin for duration of treatment with last day on 11/22 Metabolic encephalopathy with mild cognitive impairment -11/[address] Reoriented. Pain control (bilat flank pains) w/ scheduled Tylenol. Continue lidocaine patch. Added Voltaren gel. Hypoxic respiratory failure/fluid overload/HFpEF, resolved -Continue metoprolol tartrate. Resume losartan -Echo: LVEF 60-65%, moderate aortic stenosis Hyperosmolar hyperglycemic state, resolved. Type 2 DM -Potentially 2/2 superimposed infection and uncontrolled diabetes (HgbA1C from 10/12/22 was 11.5%) -BSG 747 on admission, serum Osm 316 JUDI on CKD --resolving -Recent admission for acute renal failure requiring temporarily dialysis, [facility] -Per nephro: will need outpatient allergy testing (PCN, Cipro) due to 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 -Will resume home Bumex, Losartan at discharge. Would recheck a BMP on Monday (11/18). Paroxysmal atrial fibrillation -Continue chronic low dose Eliquis therapy and metoprolol -ECG: sinus rhythm with 1st deg. AV block, left axis deviation, right bundle Cellulitis -Wound care of LLE. Adequate coverage from the abx above. COPD (chronic obstructive pulmonary disease) -No home oxygen requirement. -O2 goal 88-92% -Continue home inhalers: Breo Ellipta, Incruse Ellipta Dyslipidemia -Continue statin CAD (coronary artery disease) -Continue statin, beta mark, aspirin Hypertension -Continue metoprolol -Resume home losartan Hypothyroidism -Continue home levothyroxine Anxiety -Clonazepam 1mg PO BID FEN/GI: heart healthy, carb consistent DVT prophylaxis: Eliquis, low dose Dispo: PCU. potentially rehab pending PT/OT evaluations Code status: DNR/DNI. PT recommends SNF. [facility] prior auth pending. (2) Acute kidney injury superimposed on CKD: (3) Chronic kidney disease, stage 4 (severe): (4) Sepsis: (5) Hypothyroidism: (6) Hypertension: (7) Paroxysmal atrial fibrillation: (8) Dyslipidemia: (9) CAD (coronary artery disease): (10) Diabetes: (11) COPD (chronic obstructive pulmonary disease): (12) CHF (congestive heart failure): (13) Respiratory failure: Total Time Total Time Spent Total Time Spent (In Minutes): .<30 Discharge Plan Discharge Items Patient Disposition: Transfer Inpatient Rehab Fac Reason For Visit: HYPERGLYCEMIA, SEPSIS UNKNOWN SOURCE, JUDI ON CKD Discharge Diagnosis: Hyperglycemia, Bacteremia Activity: Per Instructions section Non-emergency contact: Primary Care Provider Call non-emergency contact if: you have any medication questions, your symptoms worsen and your temperature is above 101.5 Follow-up/Referrals: Cory Nunez DO [Primary Care Provider] - (Hospital Discharge follow up appointment within 1 week of discharge from [facility]. Patient sees Dr. Bradley, please make follow up appointment with her) Diet: Carb Consistent or DM2 and Heart Healthy Addtl Attending Provider Instructions: 1) Hyperosmolar hyperglycemic state (HHS): 87 y/o M with PMHx of diabetes mellitus type 2 (Lantus 20 units BID since 10/29/22 with glipizide 10mg BID), paroxysmal AFIB on low-dose Eliquis, CKD stage IV?, recent urethral stricture s/p dilation, COPD, hypertension, hypothyroidism, CAD, HFpEF on home Bumex therapy presented for generalized weakness and malaise, found to have bacteremia from UTI. Bacteremia with Sepsis from urinary source -Blood cultures x2 showed Enterococcus faecalis. Continue ampicillin 2g IV q6h. MRSA nares negative. Procalcitonin 1.06 on admission -Urine culture also grew Enterococcus faecalis -Repeat blood cultures after starting treatment show no growth -Wound care nursing consulted for BL LE blistering wounds -CXR initially suggested atelectasis vs. pneumonitis, otherwise CT chest noncon and CT abd/pelvis - no acute findings -TTE without vegetations -ID consulted: recommended Levofloxacin, but due to prior AIN from other fluoroquinolone will continue with Ampicillin -Ampicillin x 14 days total IV antibiotics. Currently on day 8 of 14. Plan to continue IV Ampicillin for duration of treatment with last day on 11/22 Metabolic encephalopathywith mild cognitive impairment -11/[address] neg[address] Reoriented. Pain control (bilat flank pains) w/ scheduled Tylenol. Continue lidocaine patch. Added Voltaren gel. Hypoxic respiratory failure/fluid overload/HFpEF, resolved -Continue metoprolol tartrate, restart losartan -Echo: LVEF 60-65%, moderate aortic stenosis Hyperosmolar hyperglycemic state, resolved. Type 2 DM -Potentially 2/2 superimposed infection and uncontrolled diabetes (HgbA1C from 10/12/22 was 11.5%) -BSG 747 on admission, serum Osm 316 JUDI on CKD --resolved -Recent admission for acute renal failure requiring temporarily dialysis, [facility] -Per nephro: will need outpatient allergy testing (PCN, Cipro) due to 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 -Cr at 1.25 on day of discharge -Will resume home Bumex, Losartan at discharge. Would recheck a BMP on Monday (11/18). Paroxysmal atrial fibrillation -Continue chronic low dose Eliquis therapy and metoprolol -ECG: sinus rhythm with 1st deg. AV block, left axis deviation, right bundle Cellulitis -Wound care of LLE. Adequate coverage from the abx above. COPD (chronic obstructive pulmonary disease) -No home oxygen requirement. -O2 goal 88-92% -Continue home inhalers: Breo Ellipta, Incruse Ellipta Dyslipidemia -Continue statin CAD (coronary artery disease) -Continue statin, beta mark, aspirin Hypertension -Restart home losartan -Continue metoprolol Hypothyroidism -Continue home levothyroxine Anxiety -Clonazepam 1mg PO BID Patient was DNR/DNI code status during this admission. Pending Studies at Discharge: No Stand-Alone Forms: My [facility] Skilled Items Patient informed of condition?: Yes DNR: Yes Discharge Level of Care: Acute rehab Communicable Disease: No Discharge Prognosis: Stable Lines: US Guided Peripheral IV Urinary Catheter: No Medications and DC Order Prescriptions: New ferrous sulfate 325 mg (65 mg iron) Tablet,Delayed Release (Dr/Ec) 325 mg PO BIDM Qty: 0 0RF diclofenac sodium [Voltaren Arthritis Pain] 1 % Gel 2 g EXT TID Qty: 0 0RF ampicillin sodium 2 gram recon soln 2 g IV Q6H 7 Days Qty: 10 0RF Rx Instructions: Ampicillin 2g q6h x7 days (28 doses total) Continued insulin glargine [Lantus Solostar U-100 Insulin] 100 unit/mL (3 mL) insulin pen See Rx Instructions .ROUTE .COMPLEX Rx Instructions: TAKES 52 UNITS QAM, THEN 44 UNITS QPM. Per he uses 50 units in evening levothyroxine 88 mcg tablet 88 mcg PO DAILYBB Qty: 90 albuterol sulfate 90 mcg/actuation HFA aerosol inhaler 2 puffs inhalation QID PRN (Reason: shortness of breath or wheezing) potassium chloride 20 mEq tablet extended release 20 meq PO BID Rx Instructions: TAKE THIS MED WHEN TAKING BUMETANIDE. DO NOT TAKE THIS MED IF NOT TAKING BUMETANIDE. glipizide 10 mg tablet 10 mg PO BID Rx Instructions: TAKE 15-30 MINUTES PRIOR TO A MEAL. losartan 25 mg tablet 25 mg PO QAM finasteride 5 mg tablet 5 mg PO HS tamsulosin 0.4 mg Capsule 0.8 mg PO HS 30 Days Qty: 60 0RF Eliquis 2.5 mg Tablet 2.5 mg PO BID 30 Days Qty: 60 0RF gabapentin 100 mg Capsule See Rx Instructions .ROUTE .COMPLEX Rx Instructions: 100 mg orally; TAKE 100 MG QAM, THEN 300 MG QPM. pantoprazole 20 mg tablet,delayed release (DR/EC) 20 mg PO BID aspirin 81 mg Tablet,Delayed Release (Dr/Ec) 81 mg PO DAILY bumetanide 2 mg Tablet 2 mg PO BID clonazepam 1 mg tablet 1 mg PO BID acetaminophen [Tylenol Extra Strength] 500 mg Tablet 1,000 mg PO Q6H PRN (Reason: PAIN/FEVER) Rx Instructions: RARELY USES ACCORDING TO . diphenhydramine HCl [Benadryl] 25 mg Capsule 25 mg PO BID PRN (Reason: NEEDED ) fluticasone propion-salmeterol 500-50 mcg/dose Blister With Device 1 inh INHALATION BID metoprolol tartrate 50 mg Tablet 25 mg PO BID multivitamin with minerals Tablet 1 tab PO DAILY rosuvastatin 20 mg Tablet 20 mg PO HS PreserVision AREDS 2,148 mcg-113 mg-45 mg-17.4mg Tablet 1 tab PO DAILY tiotropium bromide 2.5 mcg/actuation Mist 2 puff INHALATION DAILY Discharge Orders: Discharge Order (Routine); Ordered 11/16/22 Ordered By: Dianna Gibbs Admission Data Admit Date/Time: 11/09/22 00:45 Attending Provider: Alexandru Harrell Admit Provider: Teresita Sin Primary Care Provider: Cory Nunez Other Providers: Tyron Saavedra ; Teresita Sin ; [facility] ; [facility] Other Interventions: Discharge Summary Assessment (RN) Last Done: 11/16/22 13:15 Supervising Physician Co-Signing Physician Notes I personally examined the patient and verified all aguayo points of history and exam, discussed case, and agree with decision making with Dr Gibbs Walking the halls again, for center care today. vitals noted, walking halls w walker and later sitting in the chair about to eat lunch nad heent nc at mmm breathing unlabored no accessory muscles good effort Sepsis of urinary origin, likely E. faecalis - JAZMÍN of 3 with negative TTE, negative repeat BCx. Infectious disease recommends 14 days of antibioticsampicillin for now, they recommended transition to Levaquin, but given that the patient had recent AIN to ciprofloxacinafter discussion 11/14 with patient and family, we will complete treatment fully with IV ampicillinset up for SNFwe will finish out 14 days of IV antibiotics with ampicillin in the SNF setting Delirium, likely 2/2 metabolic encephalopathy in the setting of UTI - improved/resolved CKDIV -continue to follow creatinine - stable Paroxysmal AF - eliquis, metoprolol Hypotension in the setting of above - resolved following IVF Cellulitis of the left elbow - improving on ampicillin Otherwise as above, for discharge [facility] today
--- NOTE | 2022-11-16 18:01 | Billing Data ---
Date of Service November 16, 2022 Coding Level of Care Code 52280 IN/OBS DISCH 30 MIN/LESS
== END 2022-11-16 14:30 | DRG 871 ==
LOC: ED 22:14 → SUATTDRO 11-09 00:45 → 4W 11-09 00:45

== ENCOUNTER 2022-12-01 12:29 | Inpatient (IN) ==
[2022-12-01] MEDS ORDERED: SODIUM CHLORIDE 0.9% 1000ML 500 ML IV ONE (13:13)
[2022-12-01 13:14] LABS: HCO3 VBG 29 mmol/L; Oxygen Saturation VBG 85.8 %; PCO2 VBG 46 mmHg (38-50); PO2 VBG 52 mmHg
[2022-12-01] MEDS ORDERED: SODIUM CHLORIDE 0.9% 1000ML 1,000 ML IV SCH (13:15)
[2022-12-01 13:26] LABS: Basophils # (auto) 0.05 K/uL (0-0.2); Basophils % (auto) 0.7 %; Eosinophils # (auto) 0.13 K/uL (0-0.50); Eosinophils % (auto) 1.7 %; Hematocrit (blood only) 31.8 % (42.0-52.0); Hemoglobin 10.7 g/dl (14.0-18.0); Immature Granulocytes # (auto) 0.08 K/uL (0.01-0.20); Lymphocytes # (auto) 1.43 K/uL (1.2-3.4); Lymphocytes % (auto) 18.6 %; Mean Corpuscular Hemoglobin 31.1 pg (25.0-34.0); Mean Corpuscular Hgb Conc 33.6 g/dL (32.0-36.0); Mean Corpuscular Volume 92.4 fL (80.0-100.0); Mean Platelet Volume 9.9 fL (9.4-12.4); Monocytes # (auto) 0.48 K/uL (0.11-0.59); Monocytes % (auto) 6.3 %; Neutrophils % (auto) 71.7 %; Platelet Count 164 K/uL (130-400); RDW Coefficient of Variation 13.6 % (11.5-14.5); RDW Standard Deviation 46.4 fL (36.4-46.3); Red Blood Count 3.44 M/uL (4.70-6.10); White Blood Count 7.67 K/ul (4.8-10.8)
--- NOTE | 2022-12-01 13:38 | Emergency Department Note ---
Impression & Plan Acute hyperglycemia, Acute UTI (urinary tract infection) ED Provider Note NAME: BRIAN NEWMAN AGE: 87 SEX: M : 1935 ARRIVES VIA: Walk-In INFORMANT: Patient, ED PROVIDER(S): Dallin Joaquin DO CHIEF COMPLAINT: Elevated blood sugar HPI: The patient is an 87-year-old male who presented to the emergency department with his significant other for an evaluation of elevated blood sugar. The patient has a history of diabetes. He has been noticing his blood sugar is very high. It was not readable on the monitor. Initially his significant other did not want to give him his insulin because he did not know the exact number. She eventually did give him his insulin. They tried 2 different providers to have the blood sugar rechecked but ultimately they were unable to be seen and came to the emergency department. The patient has a history of recent admission to our facility for urinary tract infection which was very severe. He has had lower extremity swelling as well as urinary retention problems. Those issues seem to be improving. He is a little bit more confused than usual according to his significant other but this seems to happen when his blood sugar goes up. The patient himself denies having any chest pain or difficulty breathing. ROS: See above HPI for pertinent positives & negatives. A total of 10 systems reviewed and were otherwise negative. PAST MEDICAL HISTORY: See Below PAST SURGICAL HISTORY: See Below FAMILY HISTORY: See Below SOCIAL HISTORY: See Below HOME MEDICATIONS: See Below ALLERGIES: See Below VITALS: See Below PHYSICAL EXAMINATION: GENERAL: Patient was awake and alert patient was not anxious appearing. EYES: The conjunctivae are clear. The pupils are round and reactive. EARS, NOSE, MOUTH AND THROAT: The nose is without any evidence of any deformity. NECK: The neck is nontender and supple. RESPIRATORY: Normal respiratory effort is noted there is no evidence of wheezing rhonchi or rales CARDIOVASCULAR: Regular rate and rhythm noted there no murmurs rubs or gallops normal S1 normal S2. GASTROINTESTINAL: The abdomen is soft and nondistended. There is no specific tenderness guarding rigidity. MUSCULOSKELETAL/EXTREMITIES: There is no evidence of gross deformity full range of mot skin was warm and dry. Pedal edema was noted bilaterally. NEUROLOGIC: Patient is awake alert and oriented to person and place. The patient recognizes that his significant other. Gait was steady. MEDICAL DECISION MAKING: The patient is an 87-year-old male who has a history of diabetes who presented to the emergency department for elevated blood sugar. The patient was found to have a significant elevation in his blood sugar but he was not found to be in DKA. The patient initially was treated with IV fluids and an insulin bolus. He was then switched to an insulin drip. I discussed the patient's laboratory and radiographic studies with him. I also discussed his condition with the on-call [facility]. They did review the patient's condition. They have decided to start the patient on a course of an antibiotic given the urinalysis findings. Triage Nursing notes reviewed. Prior medical records reviewed Vital Signs: reviewed and remarkable for elevated blood pressure. Differential diagnosis: Infection, dehydration, metabolic abnormality, hypo/hyperglycemia, electrolyte disturbance, anemia, hypoxia, cardiac sources, intracerebral event, toxicologic, neurologic, as well as other pathologies. ER treatment provided: See below Diagnostics interpreted by me: ECG: EKG was obtained in the emergency department. My interpretation is sinus rhythm at 63 bpm. There is a first-degree AV block noted. Right bundle branch block pattern was appreciated. This was compared to a tracing from November 08, 2022. No changes were noted. Cardiac Monitoring: An order was placed for continuous cardiac monitoring. The monitor shows a rate of 66 bpm with sinus rhythm. Laboratory studies: As stated above and show below. Imaging studies: See below. Radiographic imaging was reviewed by myself Consultation(s): I discussed this case with Dr. Schmidt who is on-call for the [facility] group. ED COURSE: Procedures: none Critical Care: I have personally spent greater than 45 minutes of critical care time in the direct management of this patient. This includes bedside care, interpretation of diagnostic studies, and testing, discussion with consultants, patient, and family members, and other required patient management activities. This 45 minutes is in excess of all separately billable procedures. Past Med/Surg History Medical History Acute bronchopneumonia Acute urinary retention [id number] kidney injury AMS (altered mental status) Anemia of chronic disease Anxiety Aortic stenosis Mild per 03/06/19 stress ECHO Asthma Uses rescue inhaler a couple times per week Atrial fibrillation Follows with Dr. Gr Bacteremia Blindness of left eye BPH (benign prostatic hyperplasia) CAD (coronary artery disease) Angioplasty ~1993, CABG x 3 2013 (GALINDO to LAD, SVG to PDA, SVG to OM) CHF (congestive heart failure) Chronic kidney disease Follows with Dr. Dixon Chronic obstructive pulmonary disease Diabetes Type 2 IDDM Foot ulcer GERD (gastroesophageal reflux disease) Herpes zoster Hiatal hernia Hyperlipidemia Hypertension Hypervolemia Hypothyroidism Leukocytosis Macular degeneration Myocardial infarct ~1993 Peripheral neuropathy Rupture of left distal biceps tendon hx - no surgery Secondary hyperparathyroidism (of renal origin) SIRS (systemic inflammatory response syndrome) Surgical History Fusion of spine lumbar History of appendectomy History of cardiac cath with angioplasty ~1993 ([facility]) & 2013 ([facility]) History of cataract surgery bilateral History of coronary artery bypass graft x3 vessels ([facility] 2013) with epicardial RFA of pulmonary veins and left atrial appendage ligation History of revision of total replacement of right knee joint History of tonsillectomy History of tooth extraction History of total left knee replacement History of total right knee replacement Hx of colonoscopy Previous back surgery (08/26/12) S/P cholecystectomy Family History Brother Heart disease Diabetes Sister Cancer Mother Diabetes Father Diabetes Other Hypertension Kidney disease Social History Smoking Status: Never smoker Tobacco Type: Cigarettes Second Hand Exposure: No; Do You Dip or Chew Tobacco: No; Hx Alcohol Use: No Hx Substance Use: No Preferred Language: Divehi Communication Ability: Effective Visual Impairment: Partially Limited Supervisor Plastics Required: No Beliefs That Will Affect Care: None marital status: Current Living Situation: Spouse Current Living Situation Comment: lives at home with current occupational status: retired Other Information That Helps Us Care for You: No Feels Safe at Home: Yes Safety Concerns: Feels Safe At This Time Assistive Devices: Glasses and Walker Allergies Allergies Allergy/AdvReac Type Severity Reaction Status Date / Time ciprofloxacin [From Cipro] AdvReac Severe Unknown Verified 12/01/22 15:26 semaglutide [From Ozempic] AdvReac Severe NAUSEA/VOMI Verified 12/01/22 15:26 TING/ANOREX IA amlodipine AdvReac Intermediate SWELLING Verified 12/01/22 15:26 OF ANKLES ropinirole AdvReac Intermediate CHANGE IN Verified 12/01/22 15:26 MENTAL STATUS Home Meds Home Medications Medication Instructions Recorded Confirmed albuterol sulfate 90 mcg/actuation 2 puffs inhalation QID PRN 01/10/19 12/01/22 aerosol inhaler shortness of breath or wheezing levothyroxine 88 mcg tablet 88 mcg PO DAILYBB #90 tabs 01/10/19 12/01/22 potassium chloride 20 mEq 20 meq PO BID 01/10/19 12/01/22 tablet,extended release finasteride 5 mg tablet 5 mg PO HS 04/23/19 12/01/22 losartan 25 mg tablet 25 mg PO QAM 04/23/19 12/01/22 gabapentin 100 mg capsule See Rx Instructions .Route .COMPLEX 12/16/20 12/01/22 aspirin 81 mg tablet,delayed 81 mg PO DAILY 10/11/21 12/01/22 release pantoprazole 20 mg tablet,delayed 20 mg PO BID 02/07/22 12/01/22 release glipizide 10 mg tablet 10 mg PO BID 03/29/22 12/01/22 insulin glargine 100 unit/mL (3 20 unit subcut BID 04/12/22 12/01/22 mL) subcutaneous pen (Lantus Solostar U-100 Insulin) acetaminophen 500 mg tablet 1,000 mg PO Q6H PRN PAIN/FEVER 05/28/22 12/01/22 (Tylenol Extra Strength) bumetanide 2 mg tablet 2 mg PO BID 05/28/22 12/01/22 clonazepam 1 mg tablet 1 mg PO BID 05/28/22 12/01/22 diphenhydramine HCl 25 mg capsule 25 mg PO BID PRN NEEDED 05/28/22 12/01/22 (Benadryl) fluticasone 500 mcg-salmeterol 50 1 inh inhalation BID 05/28/22 12/01/22 mcg/dose blistr powdr for inhalation metoprolol tartrate 50 mg tablet 25 mg PO BID 05/28/22 12/01/22 multivitamin with minerals 1 tab PO DAILY 05/28/22 12/01/22 rosuvastatin 20 mg tablet 20 mg PO HS 05/28/22 12/01/22 tiotropium bromide 2.5 2 puff inhalation DAILY 05/28/22 12/01/22 mcg/actuation mist for inhalation vitamins A,C,O-eowa-wltods 2,148 1 tab PO DAILY 05/28/22 12/01/22 mcg-113 mg-45 mg-17.4 mg tablet (PreserVision AREDS) Previous Rx's Medication Instructions Recorded ampicillin 500 mg capsule 500 mg PO TID #15 caps 12/01/22 Results & Data (ED) Vital Signs Vital Signs - 24 hr 12/01/22 12:33 12/01/22 12:48 12/01/22 12:46 Temperature 36.5 C Temperature Source Temporal Artery Scan Pulse Rate 61 62 65 Pulse Rate from SpO2 Sensor 63 Pulse Rhythm Regular Respiratory Rate 20 22 Respiratory Effort / Characteristics Non-Labored Spontaneous Respiratory Depth Normal Blood Pressure 148/64 H Blood Pressure Mean 92 Pulse Oximetry 95 96 Oxygen Delivery Method Room Air Sepsis Recent Fever Within 48 Hours No Sepsis New/Unexplained Change in Mental Status No Sepsis Action Taken by Nursing No Action Required 12/01/22 12:56 12/01/22 12:56 12/01/22 13:00 Temperature Temperature Source Pulse Rate 62 Pulse Rate from SpO2 Sensor 61 Pulse Rhythm Respiratory Rate 15 Respiratory Effort / Characteristics Respiratory Depth Blood Pressure 153/66 H 164/72 H Blood Pressure Mean 123 125 Pulse Oximetry 95 Oxygen Delivery Method Sepsis Recent Fever Within 48 Hours Sepsis New/Unexplained Change in Mental Status Sepsis Action Taken by Nursing 12/01/22 13:00 12/01/22 13:31 12/01/22 14:00 Temperature Temperature Source Pulse Rate 63 65 63 Pulse Rate from SpO2 Sensor 66 65 63 Pulse Rhythm Respiratory Rate 18 16 23 Respiratory Effort / Characteristics Respiratory Depth Blood Pressure Blood Pressure Mean Pulse Oximetry 95 96 93 Oxygen Delivery Method Sepsis Recent Fever Within 48 Hours Sepsis New/Unexplained Change in Mental Status Sepsis Action Taken by Nursing 12/01/22 14:30 12/01/22 15:00 Temperature Temperature Source Pulse Rate 66 Pulse Rate from SpO2 Sensor 70 65 Pulse Rhythm Respiratory Rate 19 Respiratory Effort / Characteristics Respiratory Depth Blood Pressure Blood Pressure Mean Pulse Oximetry 98 96 Oxygen Delivery Method Sepsis Recent Fever Within 48 Hours Sepsis New/Unexplained Change in Mental Status Sepsis Action Taken by Longterm Medications Current Medication List: was personally reviewed by me Laboratory Data Attestation: I reviewed the patient's lab results. 12/01/22 12:45 12/01/22 12:45 Lab Results 12/01/22 12/01/22 12/01/22 Range/Units 12:42 12:45 12:45 WBC 7.67 (4.8-10.8) K/ul RBC 3.44 L (4.70-6.10) M/uL Hgb 10.7 L (14.0-18.0) g/dl Hct 31.8 L (42.0-52.0) % MCV 92.4 (80.0-100.0) fL MCH 31.1 (25.0-34.0) pg MCHC 33.6 (32.0-36.0) g/dL RDW Std Deviation 46.4 H (36.4-46.3) fL RDW Coeff of Adrian 13.6 (11.5-14.5) % Plt Count 164 (130-400) K/uL MPV 9.9 (9.4-12.4) fL Immature Gran % (Auto) 1.0 % Neut % (Auto) 71.7 % Lymph % (Auto) 18.6 % Forrest % (Auto) 6.3 % Eos % (Auto) 1.7 % Baso % (Auto) 0.7 % Neut # (Auto) 5.50 (1.40-6.50) K/uL Lymph # (Auto) 1.43 (1.2-3.4) K/uL Forrest # (Auto) 0.48 (0.11-0.59) K/uL Eos # (Auto) 0.13 (0-0.50) K/uL Baso # (Auto) 0.05 (0-0.2) K/uL Immature Gran # (Auto) 0.08 (0.01-0.20) K/uL PT 11.5 (9.0-12.0) Seconds INR 1.1 (0.9-1.1) APTT 26.9 (21.0-31.0) Seconds PTT Ratio 1.0 VBG pH (7.36-7.41) VBG pCO2 (38-50) mmHg VBG pO2 mmHg VBG HCO3 mmol/L VBG O2 Saturation % VBG Base Excess mEq/L Sodium (136-145) mmol/L Potassium (3.5-5.1) mmol/L Chloride (98-107) mmol/L Carbon Dioxide (21-32) mmol/L Anion Gap (3-11) BUN (6-23) mg/dl Creatinine (0.6-1.4) mg/dl Est Cr Clr Drug Dosing Est GFR ( Amer) ml/min Est GFR (Non-Af Amer) ml/min BUN/Creatinine Ratio (10-20) Glucose (70-99(Fasting)) mg/dl POC Glucose > 600 H* (70-99) mg/dl Lactate (0.4-2.0) mmol/L Calcium (8.6-10.3) mg/dl Magnesium (1.7-2.4) mg/dl Total Bilirubin (0.2-1.0) mg/dl AST (13-39) U/L ALT (7-52) U/L Alkaline Phosphatase (34-104) U/L Troponin I High Sens (0-20) pg/ml Total Protein (6.0-8.3) gm/dl Albumin (3.4-5.0) gm/dl Globulin (2.5-4.0) gm/dl Albumin/Globulin Ratio (0.9-2) TSH (0.300-4.500) uIu/ml Urine Color Urine Appearance (Clear) Urine pH (4.5-7.5) Ur Specific [place] (1.000-1.030) Urine Protein (Negative) Urine Glucose (UA) (Negative) Urine Ketones (Negative) Urine Blood (Negative) Urine Nitrite (Negative) Urine Bilirubin (Negative) Urine Urobilinogen (Negative) Ur Leukocyte Esterase (Negative) Urine WBC (Auto) (0-5) /hpf Urine RBC (Auto) (0-4) /hpf U Hyaline Cast (Auto) (0-5) /lpf U Epithel Cells (Auto) (0-5) /lpf Urine Bacteria (Auto) (Negative) 12/01/22 12/01/22 12/01/22 Range/Units 12:45 12:45 12:45 WBC (4.8-10.8) K/ul RBC (4.70-6.10) M/uL Hgb (14.0-18.0) g/dl Hct (42.0-52.0) % MCV (80.0-100.0) fL MCH (25.0-34.0) pg MCHC (32.0-36.0) g/dL RDW Std Deviation (36.4-46.3) fL RDW Coeff of Adrian (11.5-14.5) % Plt Count (130-400) K/uL MPV (9.4-12.4) fL Immature Gran % (Auto) % Neut % (Auto) % Lymph % (Auto) % Forrest % (Auto) % Eos % (Auto) % Baso % (Auto) % Neut # (Auto) (1.40-6.50) K/uL Lymph # (Auto) (1.2-3.4) K/uL Forrest # (Auto) (0.11-0.59) K/uL Eos # (Auto) (0-0.50) K/uL Baso # (Auto) (0-0.2) K/uL Immature Gran # (Auto) (0.01-0.20) K/uL PT (9.0-12.0) Seconds INR (0.9-1.1) APTT (21.0-31.0) Seconds PTT Ratio VBG pH (7.36-7.41) VBG pCO2 (38-50) mmHg VBG pO2 mmHg VBG HCO3 mmol/L VBG O2 Saturation % VBG Base Excess mEq/L Sodium 128 L (136-145) mmol/L Potassium 4.4 (3.5-5.1) mmol/L Chloride 90 L (98-107) mmol/L Carbon Dioxide 27 (21-32) mmol/L Anion Gap 11 (3-11) BUN 26 H (6-23) mg/dl Creatinine 1.97 H (0.6-1.4) mg/dl Est Cr Clr Drug Dosing Not Reportable Est GFR ( Amer) 34.4 ml/min Est GFR (Non-Af Amer) 29.7 ml/min BUN/Creatinine Ratio 13.2 (10-20) Glucose 792 H* (70-99(Fasting)) mg/dl POC Glucose (70-99) mg/dl Lactate 3.3 H* (0.4-2.0) mmol/L Calcium 9.4 (8.6-10.3) mg/dl Magnesium 1.8 (1.7-2.4) mg/dl Total Bilirubin 0.5 (0.2-1.0) mg/dl AST 16 (13-39) U/L ALT 12 (7-52) U/L Alkaline Phosphatase 70 (34-104) U/L Troponin I High Sens 11.2 (0-20) pg/ml Total Protein 7.2 (6.0-8.3) gm/dl Albumin 3.5 (3.4-5.0) gm/dl Globulin 3.7 (2.5-4.0) gm/dl Albumin/Globulin Ratio 0.9 (0.9-2) TSH 1.927 (0.300-4.500) uIu/ml Urine Color Urine Appearance (Clear) Urine pH (4.5-7.5) Ur Specific [place] (1.000-1.030) Urine Protein (Negative) Urine Glucose (UA) (Negative) Urine Ketones (Negative) Urine Blood (Negative) Urine Nitrite (Negative) Urine Bilirubin (Negative) Urine Urobilinogen (Negative) Ur Leukocyte Esterase (Negative) Urine WBC (Auto) (0-5) /hpf Urine RBC (Auto) (0-4) /hpf U Hyaline Cast (Auto) (0-5) /lpf U Epithel Cells (Auto) (0-5) /lpf Urine Bacteria (Auto) (Negative) 12/01/22 12/01/22 12/01/22 Range/Units 12:45 13:31 15:08 WBC (4.8-10.8) K/ul RBC (4.70-6.10) M/uL Hgb (14.0-18.0) g/dl Hct (42.0-52.0) % MCV (80.0-100.0) fL MCH (25.0-34.0) pg MCHC (32.0-36.0) g/dL RDW Std Deviation (36.4-46.3) fL RDW Coeff of Adrian (11.5-14.5) % Plt Count (130-400) K/uL MPV (9.4-12.4) fL Immature Gran % (Auto) % Neut % (Auto) % Lymph % (Auto) % Forrest % (Auto) % Eos % (Auto) % Baso % (Auto) % Neut # (Auto) (1.40-6.50) K/uL Lymph # (Auto) (1.2-3.4) K/uL Forrest # (Auto) (0.11-0.59) K/uL Eos # (Auto) (0-0.50) K/uL Baso # (Auto) (0-0.2) K/uL Immature Gran # (Auto) (0.01-0.20) K/uL PT (9.0-12.0) Seconds INR (0.9-1.1) APTT (21.0-31.0) Seconds PTT Ratio VBG pH 7.40 (7.36-7.41) VBG pCO2 46 (38-50) mmHg VBG pO2 52 mmHg VBG HCO3 29 mmol/L VBG O2 Saturation 85.8 % VBG Base Excess 3.0 mEq/L Sodium (136-145) mmol/L Potassium (3.5-5.1) mmol/L Chloride (98-107) mmol/L Carbon Dioxide (21-32) mmol/L Anion Gap (3-11) BUN (6-23) mg/dl Creatinine (0.6-1.4) mg/dl Est Cr Clr Drug Dosing Est GFR ( Amer) ml/min Est GFR (Non-Af Amer) ml/min BUN/Creatinine Ratio (10-20) Glucose (70-99(Fasting)) mg/dl POC Glucose (70-99) mg/dl Lactate 3.1 H* (0.4-2.0) mmol/L Calcium (8.6-10.3) mg/dl Magnesium (1.7-2.4) mg/dl Total Bilirubin (0.2-1.0) mg/dl AST (13-39) U/L ALT (7-52) U/L Alkaline Phosphatase (34-104) U/L Troponin I High Sens (0-20) pg/ml Total Protein (6.0-8.3) gm/dl Albumin (3.4-5.0) gm/dl Globulin (2.5-4.0) gm/dl Albumin/Globulin Ratio (0.9-2) TSH (0.300-4.500) uIu/ml Urine Color Yellow Urine Appearance Clear (Clear) Urine pH 6.5 (4.5-7.5) Ur Specific [place] 1.013 (1.000-1.030) Urine Protein Negative (Negative) Urine Glucose (UA) 3+ H (Negative) Urine Ketones Negative (Negative) Urine Blood 1+ H (Negative) Urine Nitrite Negative (Negative) Urine Bilirubin Negative (Negative) Urine Urobilinogen Negative (Negative) Ur Leukocyte Esterase Trace H (Negative) Urine WBC (Auto) 5-10 H (0-5) /hpf Urine RBC (Auto) 0-4 (0-4) /hpf U Hyaline Cast (Auto) 0 (0-5) /lpf U Epithel Cells (Auto) 0-5 (0-5) /lpf Urine Bacteria (Auto) 4+ H (Negative) 12/01/22 12/01/22 Range/Units 15:10 16:16 WBC (4.8-10.8) K/ul RBC (4.70-6.10) M/uL Hgb (14.0-18.0) g/dl Hct (42.0-52.0) % MCV (80.0-100.0) fL MCH (25.0-34.0) pg MCHC (32.0-36.0) g/dL RDW Std Deviation (36.4-46.3) fL RDW Coeff of Adrian (11.5-14.5) % Plt Count (130-400) K/uL MPV (9.4-12.4) fL Immature Gran % (Auto) % Neut % (Auto) % Lymph % (Auto) % Forrest % (Auto) % Eos % (Auto) % Baso % (Auto) % Neut # (Auto) (1.40-6.50) K/uL Lymph # (Auto) (1.2-3.4) K/uL Forrest # (Auto) (0.11-0.59) K/uL Eos # (Auto) (0-0.50) K/uL Baso # (Auto) (0-0.2) K/uL Immature Gran # (Auto) (0.01-0.20) K/uL PT (9.0-12.0) Seconds INR (0.9-1.1) APTT (21.0-31.0) Seconds PTT Ratio VBG pH (7.36-7.41) VBG pCO2 (38-50) mmHg VBG pO2 mmHg VBG HCO3 mmol/L VBG O2 Saturation % VBG Base Excess mEq/L Sodium (136-145) mmol/L Potassium (3.5-5.1) mmol/L Chloride (98-107) mmol/L Carbon Dioxide (21-32) mmol/L Anion Gap (3-11) BUN (6-23) mg/dl Creatinine (0.6-1.4) mg/dl Est Cr Clr Drug Dosing Est GFR ( Amer) ml/min Est GFR (Non-Af Amer) ml/min BUN/Creatinine Ratio (10-20) Glucose (70-99(Fasting)) mg/dl POC Glucose 538 H* 494 H* (70-99) mg/dl Lactate (0.4-2.0) mmol/L Calcium (8.6-10.3) mg/dl Magnesium (1.7-2.4) mg/dl Total Bilirubin (0.2-1.0) mg/dl AST (13-39) U/L ALT (7-52) U/L Alkaline Phosphatase (34-104) U/L Troponin I High Sens (0-20) pg/ml Total Protein (6.0-8.3) gm/dl Albumin (3.4-5.0) gm/dl Globulin (2.5-4.0) gm/dl Albumin/Globulin Ratio (0.9-2) TSH (0.300-4.500) uIu/ml Urine Color Urine Appearance (Clear) Urine pH (4.5-7.5) Ur Specific [place] (1.000-1.030) Urine Protein (Negative) Urine Glucose (UA) (Negative) Urine Ketones (Negative) Urine Blood (Negative) Urine Nitrite (Negative) Urine Bilirubin (Negative) Urine Urobilinogen (Negative) Ur Leukocyte Esterase (Negative) Urine WBC (Auto) (0-5) /hpf Urine RBC (Auto) (0-4) /hpf U Hyaline Cast (Auto) (0-5) /lpf U Epithel Cells (Auto) (0-5) /lpf Urine Bacteria (Auto) (Negative) Administered Medications Insulin Human Regular 250 (units/ Sodium Chloride) 250 mls @ 2.3 mls/hr IV .Q24H [facility]; Protocol Stop: 12/31/22 16:14 Last Admin: 12/01/22 19:16 Dose: 2.3 unit/hr, 2.3 mls/hr Documented By: MARTIN Co-signed By: ARR Parenteral Electrolytes (Plasma-Lyte A Ph 7.4) 1,000 mls @ 100 mls/hr IV .Q10H VANDANA Stop: 12/31/22 18:22 Last Infusion: 12/01/22 19:41 Dose: 100 mls/hr Documented By: Infusion: 12/01/22 19:26 Dose: 0 mls/hr Documented By: Admin: 12/01/22 18:47 Dose: 100 mls/hr Documented By: CHA Discontinued Medications Sodium Chloride (Nss 1000ml) 1,000 mls @ 999 mls/hr IV .Q1H1M VANDANA Stop: 12/01/22 14:15 Last Infusion: 12/01/22 14:45 Dose: 0 mls/hr Documented By: Admin: 12/01/22 13:31 Dose: 999 mls/hr Documented By: ANUSHKA Sodium Chloride (Nss 1000ml) 500 mls @ 999 mls/hr IV .Q31M ONE Stop: 12/01/22 13:43 Last Infusion: 12/01/22 14:45 Dose: 0 mls/hr Documented By: Admin: 12/01/22 13:31 Dose: 999 mls/hr Documented By: ANUSHKA Insulin Aspart (Insulin Aspart Per Unit Charge) 0 units SC ACHS [facility] Stop: 12/31/22 16:29 Last Admin: 12/01/22 18:31 Dose: Not Given Documented By: CHA Insulin Human Regular (Novolin-R Insulin Per Unit Charge) 10 units IV NOW STA Stop: 12/01/22 14:12 Last Admin: 12/01/22 14:32 Dose: 10 units Documented By: ASHLEY Co-signed By: MARIANN Rendon (Moderate Stress Level ) 1 each N/A ONE ONE Stop: 12/01/22 16:12 Last Admin: 12/01/22 19:21 Dose: 1 each Documented By: MARTIN Rendon (Insulin Protocol Goal Range ) 1 each N/A ONE ONE Stop: 12/01/22 16:12 Last Admin: 12/01/22 19:21 Dose: 1 each Documented By: MARTIN Imaging Data Attestation: I personally reviewed and interpreted this imaging study as follows: My Impression: 1 view chest x-ray was obtained in the emergency department. My interpretation is no free air or definite infiltrate, final report below. Radiologist's Impression: Chest X-Ray 12/01/22 13:06 SINGLE VIEW CHEST CLINICAL HISTORY: Generalized weakness. FINDINGS: An AP, portable, upright chest radiograph is compared to study dated 11/11/2022. Correlation is made with chest CT dated 11/09/2022. The patient is status post midline sternotomy. The heart is enlarged noting atherosclerotic calcification of the thoracic aorta. There is pulmonary vascular congestion. Chronic interstitial thickening is similar to previous. The lungs and pleural spaces are clear noting mild bibasilar atelectasis. No pneumothorax is seen. The skeletal structures are osteopenic. The bony thorax is grossly intact. Arthritic change is noted in the shoulders. IMPRESSION: Cardiomegaly with pulmonary vascular congestion. ACT 112: Negative or not required by law. Electronically signed by: Antonio Benjamin M.D. 12/01/2022 1:43 PM Discharge Plan Visit Data Chief Complaint: Hyperglycemia Stated Complaint: BACTERIAL INFECTION, HIGH BLOOD SUGAR ED Provider: Dallin Joaquin Discharge Problem: Acute hyperglycemia, Acute UTI (urinary tract infection) Patient Disposition: Admitted As Inpatient Discharge Instructions Interventions: ED Discharge Assessment Last Done: 12/01/22 17:53
--- NOTE | 2022-12-01 13:44 | XRay Report ---
SINGLE VIEW CHEST CLINICAL HISTORY: Generalized weakness. FINDINGS: An AP, portable, upright chest radiograph is compared to study dated 11/11/2022. Correlation is made with chest CT dated 11/09/2022. The patient is status post midline sternotomy. The heart is e nlarged noting atherosclerotic calcification of the thoracic aorta. There is pulmonary vascular conge stion. Chronic interstitial thickening is similar to previous. The lungs and pleural spaces are clear noting mild bibasilar atelectasis. No pneumothorax is seen. The skeletal structures are osteopenic. The bony thorax is grossly intact. Arthritic change is noted in the shoulders. IMPRESSION: Cardiomegaly with pulmonary vascular congestion. ACT 112: Negative or not required by law. Electronically signed by: Antonio Benjamin M.D. 12/01/2022 1:43 PM
[2022-12-01 14:01] LABS: INR 1.1 (0.9-1.1); Partial Thromboplastin Time 26.9 Seconds (21.0-31.0); Prothrombin Time 11.5 Seconds (9.0-12.0)
[2022-12-01 14:09] LABS: Alanine Aminotransferase 12 U/L (7-52); Albumin Globulin Ratio 0.9 (0.9-2); Albumin Level 3.5 gm/dl (3.4-5.0); Alkaline Phosphatase 70 U/L (34-104); Anion Gap 11 (3-11); Aspartate Aminotransferase 16 U/L (13-39); BUN Creatinine Ratio 13.2 (10-20); Bilirubin,Total 0.5 mg/dl (0.2-1.0); Blood Urea Nitrogen 26 mg/dl (6-23); Calcium 9.4 mg/dl (8.6-10.3); Carbon Dioxide 27 mmol/L (21-32); Chloride 90 mmol/L (98-107); Est GFR (African American) 34.4 ml/min; Est GFR (Non-African American) 29.7 ml/min; Globulin 3.7 gm/dl (2.5-4.0); Glucose 792 mg/dl (70-99(Fasting)); Magnesium 1.8 mg/dl (1.7-2.4); Potassium 4.4 mmol/L (3.5-5.1); Sodium 128 mmol/L (136-145); Total Protein 7.2 gm/dl (6.0-8.3); Troponin I High Sensitivity 11.2 pg/ml (0-20)
[2022-12-01] MEDS ORDERED: NovoLIN-R INSULIN PER UNIT CHARGE IV STA (14:11)
[2022-12-01 14:15] LABS: Appearance Urine Clear (Clear); Bacteria Urine Automated 4+ (Negative); Bilirubin Urine Negative (Negative); Blood Urine 1+ (Negative); Cast Urine Automated 0 /lpf (0-5); Color Urine Yellow; Epithelial Cell Urine Auto 0-5 /lpf (0-5); Glucose Urine UA 3+ (Negative); Ketones Urine Negative (Negative); Leukocyte Esterase Urine Trace (Negative); Nitrite Urine Negative (Negative); Protein Urine Negative (Negative); RBC Urine Automated 0-4 /hpf (0-4); Specific Gravity Urine 1.013 (1.000-1.030); Urobilinogen Urine Negative (Negative); pH Urine 6.5 (4.5-7.5)
[2022-12-01] MEDS ORDERED: INSULIN PROTOCOL GOAL RANGE ONE (16:11)
[2022-12-01] MEDS ORDERED: MODERATE STRESS LEVEL ONE (16:11)
[2022-12-01] MEDS ORDERED: STAT IV STA (16:11)
[2022-12-01] MEDS ORDERED: Patient's HEIGHT &/or WEIGHT Needed STA (16:14)
[2022-12-01] MEDS ORDERED: INSULIN REGULAR 250 UNITS in SODIUM CHLORIDE 0.9% 247.5 ML IV SCH (16:15)
[2022-12-01] MEDS ORDERED: INSULIN ASPART PER UNIT CHARGE SC SCH ×2 (16:30→21:00)
--- NOTE | 2022-12-01 16:33 | History & Physical Report ---
Date of Service December 01, 2022 Assessment & Plan (1) HHS (hypothenar hammer syndrome): Plan: T2DM /w acute HHS Received IV 10 units, NSS 1500 cc while in ER Was placed on insulin gtt. while in ER On ER arrival BSG 792, recheck at time of admission 494 Lactate 3.3 on arrival to ER, downtrending to 3.1 at time of consultation No transaminitis High-sensitivity troponin is normal TSH normal UA is with 4+ bacteria, leukocyte esterase, and blood consistent with UTI. No epithelial cells to suggest contamination. UCx pending Normosol continued at 100 cc/h. If patient develops hypoxia or signs of pulmonary congestion, defer fluids is at risk of this with prior history of heart failure Continue insulin GTT at this time. Once BSG less than 250 and stable can convert to subcutaneous insulin. BMP and electrolytes every 4 hours. Replete potassium as needed, is on Normosol as noted. Pseudohyponatremia on admission. He does not have a concurrent acidosis, VBG seven-point //. CKD 3B/4 Follows with nephrology as outpatient 2/2 DM, suspected to have some underlying cardiorenal syndrome Baseline creatinine, last 1.82.0 Creatinine 1.97 on admission Losartan continued Bumex 2 mg twice daily held Low-salt diet DM diet Insulin management as below UTI - Last UC E. faecalis tetracycline resistant, last BC 11/11 no growth. UA on admission appears infected, culture pending EKG with normal QT Patient is allergic to fluoroquinolones Enterococcus routine sickly resistant to cephalosporins. Will place on Unasyn for UTI coverage with Enterococcus faecalis coverage Given multiple recurrent UTIs? Prostatic seeding. Patient has a history of prostatitis in the past, no pain with bowel movements. Does have history of stricturing and obstruction. Given recurrent infections similar cultures may need to extend treatment up to 6 weeks for adequate clearance Urethral stricture With recurrent strictures, and history of catheterization Follows with urology Last treated for UTI with 5 days of ampicillin 11/29/2022 Failure with preserved ejection fraction, CAD Last echo LVEF 60-65%, moderate Continue metoprolol Losartan continued - CXR: Cardiomegaly with pulmonary vascular congestion Cautious use of fluids with history of diastolic heart failure Continue statin/aspirin Patient with a significant venous stasis component separate from his pulmonary congestion. Has had predominant lower extremity edema which well present on admission is vastly diminished compared to even his normal dry weight. Suspect that while he is chronic venous stasis with some lower extremity swelling, he is intravascularly depleted. Mild pulmonary vascular congestion without edema on x-ray or hypoxia, and has an elevated lactate. Fluids as noted Paroxysmal A-fib Continue Eliquis Continue metoprolol COPD Continue Breo, Incruse No home oxygen requirement Titrate oxygen to goal 89% Hypertension Cardiac meds as noted Anxiety Continue home clonazepam 1 mg p.o. twice daily, hold for respiratory suppression Hypothyroidism Continue Synthroid DVT prophylaxis: On Eliquis Disposition: PCU CODE STATUS: DNR/DNI (2) Paroxysmal atrial fibrillation: (3) Peripheral vascular disease: (4) UTI (urinary tract infection): History of Present Illness Primary Care Provider: Cory Nunez DO Aj is an 87-year-old male with a past medical history of anemia of chronic disease, CKD 4, HHS, UTI, DVT, PVD, COPD, P A-fib, CAD, CHF on basal insulin who presents to the emergency department for elevated blood sugar which just read as "high "on his home BSG. Patient was recently admitted and discharged for a severe UTI at the end of October. Aj "Chang" is seen with his in the ER. Reports his blood sugar was veyr high and coulnd't get an accurate reading at home x2. Recent renal failure admit for 2 weeks, then had 7 day admit afterwards. Was doing "Somebody screwed up". Blood sugar was not stable as an outpatient. Per pts he generally had difficult to control blood sugars due to the combination of 2 types of insulin which is different than what he normally uses at home. Per his pt thinks the problem is his insulin doses, his notes that he has had blood sugars of the 700s due to infections which still seems to be present. Has a history of severe hyperglycemia with UTIs. Notes BSG was normal at recent d/c from [facility] when he was just on his normal basal insulin. Generally does not have urinary symptoms with his UTIs. Has been sick enough to become bacteremic in the past and very ill, but usually does not get dysuria/polyuria prior to progression of illness. Last Monday (8 days ago) saw Dr. Harris and had a catheter placed for a s tricture. Repeat UA still infected so was supposed to start ampicillin yesterday, but was not in the [facility] so had to be called into the [facility] but due to staffing issues pharmacy was closed and could not get this from filled. History of past prostatits which seemed to improve, but cannot take cipro as this precipitated his renal failure. "Legs look better than they have in many months. Much driet than normal". No hx of SoB/pulm edema or oxygen requirements. Medical History: Reviewed Medications: Reviewed Surgical History: Reviewed Family history: Reviewed Allergies: Reviewed Social History: Reviewed Code Status: DNR/DNI Allergies Allergy/AdvReac Type Severity Reaction Status Date / Time ciprofloxacin [From Cipro] AdvReac Severe Unknown Verified 12/01/22 15:26 semaglutide [From Ozempic] AdvReac Severe NAUSEA/VOMI Verified 12/01/22 15:26 TING/ANOREX IA amlodipine AdvReac Intermediate SWELLING Verified 12/01/22 15:26 OF ANKLES ropinirole AdvReac Intermediate CHANGE IN Verified 12/01/22 15:26 MENTAL STATUS Home Medications Medication Instructions Recorded Confirmed Type albuterol sulfate 90 mcg/actuation 2 puffs inhalation QID PRN 01/10/19 12/01/22 History aerosol inhaler shortness of breath or wheezing levothyroxine 88 mcg tablet 88 mcg PO DAILYBB #90 tabs 01/10/19 12/01/22 History potassium chloride 20 mEq 20 meq PO BID 01/10/19 12/01/22 History tablet,extended release finasteride 5 mg tablet 5 mg PO HS 04/23/19 12/01/22 History losartan 25 mg tablet 25 mg PO QAM 04/23/19 12/01/22 History gabapentin 100 mg capsule See Rx Instructions .Route .COMPLEX 12/16/20 12/01/22 History aspirin 81 mg tablet,delayed 81 mg PO DAILY 10/11/21 12/01/22 History release pantoprazole 20 mg tablet,delayed 20 mg PO BID 02/07/22 12/01/22 History release glipizide 10 mg tablet 10 mg PO BID 03/29/22 12/01/22 History insulin glargine 100 unit/mL (3 20 unit subcut BID 04/12/22 12/01/22 History mL) subcutaneous pen (Lantus Solostar U-100 Insulin) acetaminophen 500 mg tablet 1,000 mg PO Q6H PRN PAIN/FEVER 05/28/22 12/01/22 History (Tylenol Extra Strength) bumetanide 2 mg tablet 2 mg PO BID 05/28/22 12/01/22 History clonazepam 1 mg tablet 1 mg PO BID 05/28/22 12/01/22 History diphenhydramine HCl 25 mg capsule 25 mg PO BID PRN NEEDED 05/28/22 12/01/22 History (Benadryl) fluticasone 500 mcg-salmeterol 50 1 inh inhalation BID 05/28/22 12/01/22 History mcg/dose blistr powdr for inhalation metoprolol tartrate 50 mg tablet 25 mg PO BID 05/28/22 12/01/22 History multivitamin with minerals 1 tab PO DAILY 05/28/22 12/01/22 History rosuvastatin 20 mg tablet 20 mg PO HS 05/28/22 12/01/22 History tiotropium bromide 2.5 2 puff inhalation DAILY 05/28/22 12/01/22 History mcg/actuation mist for inhalation vitamins A,C,F-hcom-mgbrxg 2,148 1 tab PO DAILY 05/28/22 12/01/22 History mcg-113 mg-45 mg-17.4 mg tablet (PreserVision AREDS) ampicillin 500 mg capsule 500 mg PO TID #15 caps 12/01/22 12/01/22 Rx Past Med/Surg History Medical History Acute bronchopneumonia Acute urinary retention Kkgmy-ns-jcsakqn kidney injury AMS (altered mental status) Anemia of chronic disease Anxiety Aortic stenosis Mild per 03/06/19 stress ECHO Asthma Uses rescue inhaler a couple times per week Atrial fibrillation Follows with Dr. Gr Bacteremia Blindness of left eye BPH (benign prostatic hyperplasia) CAD (coronary artery disease) Angioplasty ~1993, CABG x 3 2013 (GALINDO to LAD, SVG to PDA, SVG to OM) CHF (congestive heart failure) Chronic kidney disease Follows with Dr. Dixon Chronic obstructive pulmonary disease Diabetes Type 2 IDDM Foot ulcer GERD (gastroesophageal reflux disease) Herpes zoster Hiatal hernia Hyperlipidemia Hypertension Hypervolemia Hypothyroidism Leukocytosis Macular degeneration Myocardial infarct ~1993 Peripheral neuropathy Rupture of left distal biceps tendon hx - no surgery Secondary hyperparathyroidism (of renal origin) SIRS (systemic inflammatory response syndrome) Surgical History Fusion of spine lumbar History of appendectomy History of cardiac cath with angioplasty ~1993 ([facility]) & 2013 ([facility]) History of cataract surgery bilateral History of coronary artery bypass graft x3 vessels ([facility] 2013) with epicardial RFA of pulmonary veins and left atrial appendage ligation History of revision of total replacement of right knee joint History of tonsillectomy History of tooth extraction History of total left knee replacement History of total right knee replacement Hx of colonoscopy Previous back surgery (08/26/12) S/P cholecystectomy Family History Brother Heart disease Diabetes Sister Cancer Mother Diabetes Father Diabetes Other Hypertension Kidney disease Social History Smoking Status: Never smoker Tobacco Type: Cigarettes Second Hand Exposure: No; Do You Dip or Chew Tobacco: No; Hx Alcohol Use: No Hx Substance Use: No Preferred Language: Lao Communication Ability: Impaired Visual Impairment: Partially Limited 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 Somewhat forgetful, requires frequent redirection and history is taken with the assistance of his at bedside HEENT: Atraumatic, normocephalic. Pulm: CTAB A&P. -wheezes, -rales, -rhonchi. Symmetrical chest rise. No increased work of breathing. No respiratory distress. Cardiac: RRR, -mrg. Radial pulses intact and symmetrical. Abdominal: Nontender, nondistended, soft. BS present. Extremities: Bilateral lower extremity pitting edema. Extremities are warm and dry. Moves upper and lower extremities equally. Sensation of soft touch intact in hands and feet. Results & Data Results & Data Vital Signs (Past 12 Hours) Vital Signs Temp Pulse Resp BP Pulse Ox O2 Del Method 12/01/22 15:00 66 19 96 12/01/22 14:30 98 12/01/22 14:00 63 23 93 12/01/22 13:31 65 16 96 12/01/22 13:00 63 18 95 12/01/22 13:00 164/72 H 12/01/22 12:56 153/66 H 12/01/22 12:56 62 15 95 12/01/22 12:46 65 22 96 12/01/22 12:48 62 12/01/22 12:33 36.5 C 61 20 148/64 H 95 Room Air PG Care Time/CCT Total # of Minutes Spent Total Time Spent with Patient: Total time spent is greater than 50% in coordination of care (as documented) at patient's floor/unit and/or counseling patient: Coding Level of Care Code 68311 INT INP/OBS CARE MIN Diagnoses HHS (hypothenar hammer syndrome) I73.89 Paroxysmal atrial fibrillation I48.0 Peripheral vascular disease I73.9 UTI (urinary tract infection) N39.0
[2022-12-01] MEDS ORDERED: ALBUTEROL HFA 8 GM INHALER INH PRN (18:23)
[2022-12-01] MEDS ORDERED: PHARMACY GLYCEMIC MGMT CONSULT PRN (18:23)
[2022-12-01] MEDS ORDERED: ACETAMINOPHEN 500 MG TAB PO PRN (18:23)
[2022-12-01] MEDS ORDERED: diphenhydrAMINE Capsule 25 MG CAP PO PRN (18:23)
[2022-12-01] MEDS: PLASMA-LYTE A 1,000 ML IV SCH (18:47)
[2022-12-01 19:21] LABS: Calcium 9.1 mg/dl (8.6-10.3); Potassium 3.9 mmol/L (3.5-5.1)
[2022-12-01 19:48] LABS: BUN Creatinine Ratio 15.5 (10-20); Est GFR (African American) 43.9 ml/min; Est GFR (Non-African American) 37.9 ml/min; Phosphorus 3.8 mg/dl (2.5-4.9)
[2022-12-01] MEDS: clonazePAM 1 MG TAB PO SCH (20:01)
[2022-12-01] MEDS: METOPROLOL TARTRATE 25 MG TAB PO SCH (20:01)
[2022-12-01] MEDS: POTASSIUM CHLORIDE CRTAB 20 MEQ TABCR PO SCH (20:02)
[2022-12-01] MEDS: PANTOprazole 40 MG TAB PO SCH (20:03)
[2022-12-01] MEDS: AMPICILLIN/SULBACTAM SOD 3,000 MG in 0.9 % SODIUM CHLORIDE 100 ML IV SCH (20:35)
[2022-12-01] MEDS ORDERED: FINASTERIDE 5 MG TAB PO SCH (21:00)
[2022-12-01] MEDS ORDERED: ROSUVASTATIN CALCIUM 20 MG TAB PO SCH (21:00)
[2022-12-01] MEDS ORDERED: GABAPENTIN 300 MG CAP PO SCH (21:00)
[2022-12-01 23:36] LABS: BUN Creatinine Ratio 14.4 (10-20); Creatinine Clr Calc Pharmacy 35.7 ml/min; Est GFR (African American) 46.7 ml/min; Est GFR (Non-African American) 40.3 ml/min; Phosphorus 3.1 mg/dl (2.5-4.9); Potassium 3.3 mmol/L (3.5-5.1)
[2022-12-02] MEDS: AMPICILLIN/SULBACTAM SOD 3,000 MG in 0.9 % SODIUM CHLORIDE 100 ML IV SCH ×3 (03:08→13:53)
[2022-12-02 03:30] LABS: Basophils # (auto) 0.05 K/uL (0-0.2); Basophils % (auto) 0.5 %; Eosinophils # (auto) 0.28 K/uL (0-0.50); Eosinophils % (auto) 2.6 %; Hematocrit (blood only) 28.6 % (42.0-52.0); Hemoglobin 9.8 g/dl (14.0-18.0); Immature Granulocytes # (auto) 0.06 K/uL (0.01-0.20); Immature Granulocytes % (auto) 0.6 %; Lymphocytes # (auto) 2.22 K/uL (1.2-3.4); Lymphocytes % (auto) 20.7 %; Mean Corpuscular Hemoglobin 31.1 pg (25.0-34.0); Mean Corpuscular Hgb Conc 34.3 g/dL (32.0-36.0); Mean Corpuscular Volume 90.8 fL (80.0-100.0); Mean Platelet Volume 9.5 fL (9.4-12.4); Monocytes % (auto) 6.5 %; Neutrophils # (auto) 7.41 K/uL (1.40-6.50); Neutrophils % (auto) 69.1 %; Platelet Count 171 K/uL (130-400); RDW Coefficient of Variation 13.6 % (11.5-14.5); RDW Standard Deviation 45.2 fL (36.4-46.3); Red Blood Count 3.15 M/uL (4.70-6.10); White Blood Count 10.72 K/ul (4.8-10.8)
[2022-12-02 03:40] LABS: BUN Creatinine Ratio 14.3 (10-20); Creatinine Clr Calc Pharmacy 39.1 ml/min; Est GFR (Non-African American) 44.9 ml/min; Phosphorus 3.1 mg/dl (2.5-4.9); Potassium 3.4 mmol/L (3.5-5.1)
[2022-12-02] MEDS: PLASMA-LYTE A 1,000 ML IV SCH (04:59)
[2022-12-02] MEDS ORDERED: LEVOTHYROXINE SODIUM 88 MCG TABLET PO SCH (06:30)
--- NOTE | 2022-12-02 06:51 | Hospitalist Progress Note ---
Date of Service December 02, 2022 Assessment & Plan (1) Hyperosmolar hyperglycemic state (HHS): Plan: Pt is a 87 yo male with complex PMH including recurrent severe UTIs, paroxysmal afib, [place], aortic stenosis, asthma, anxiety, BPH, HLD, HTN, and CKD presenting to the hospital due to elevated blood sugars. T2DM /w acute HHS - BS 792 upon arrival, 494 upon admission - elevated lactate, since downtrending - currently on insulin drip w/ normosol at 100 mL/hr (cautious d/t hx of heart failure) - once BS continuously less than 250, will convert to subQ insulin - BMP q4hrs while on drip CKD 3B/4 - Follows with nephrology as outpatient 2/2 DM, suspected to have some underlying cardiorenal syndrome Baseline creatinine, last 1.82.0 Creatinine 1.97 on admission Losartan continued Bumex 2 mg twice daily held Low-salt diet DM diet Insulin management as below UTI UA is with 4+ bacteria, leukocyte esterase, and blood consistent with UTI. No epithelial cells to suggest contamination. UCx pending - Last UC E. faecalis tetracycline resistant, last BC 11/11 no growth. UA on admission appears infected, culture pending EKG with normal QT Patient is allergic to fluoroquinolones Enterococcus routine sickly resistant to cephalosporins. Will place on Unasyn for UTI coverage with Enterococcus faecalis coverage Given multiple recurrent UTIs? Prostatic seeding. Patient has a history of prostatitis in the past, no pain with bowel movements. Does have history of stricturing and obstruction. Given recurrent infections similar cultures may need to extend treatment up to 6 weeks for adequate clearance Urethral stricture With recurrent strictures, and history of catheterization Follows with urology outpatient Last treated for UTI with 5 days of ampicillin 11/29/2022 Heart failure with preserved ejection fraction, CAD Last echo LVEF 60-65%, moderate Continue metoprolol Losartan continued - CXR: Cardiomegaly with pulmonary vascular congestion Cautious use of fluids with history of diastolic heart failure Continue statin/aspirin Patient with a significant venous stasis component separate from his pulmonary congestion. Has had predominant lower extremity edema which well present on admission is vastly diminished compared to even his normal dry weight. Suspect that while he is chronic venous stasis with some lower extremity swelling, he is intravascularly depleted. Mild pulmonary vascular congestion without edema on x-ray or hypoxia, and has an elevated lactate. Fluids as noted Paroxysmal A-fib continue eliquis and metoprolol COPD - continue Breo, Incruse - no home oxygen requirement - titrate oxygen to goal 89% Hypertension - cardiac meds as noted Anxiety - continue home clonazepam 1 mg p.o. twice daily, hold for respiratory suppression Hypothyroidism - continue synthroid Diet: VTE prophylaxis: eliquis Dispo: PCU Code: DNR/DNI (2) UTI (urinary tract infection): (3) Chronic kidney disease: (4) Peripheral vascular disease: (5) COPD (chronic obstructive pulmonary disease): (6) Paroxysmal atrial fibrillation: (7) Diabetes: Admission and Anticipated Discharge Date Admission Date: December 01, 2022 Subjective Pt states he feels wonderful today. He originally came in because his blood sugars were high. He explains that he recently had a urinary catheter placed last week that was in for a few days which caused him lots of pain. That was removed and his pain went away. He denies urinary burning, frequency, and retention. Review of Systems Review of Systems: As per HPI Results & Data Results & Data Vital Signs (Past 12 Hours) Vital Signs Temp Pulse Resp BP Pulse Ox O2 Del Method 12/02/22 03:37 36.4 C L 70 18 154/76 H 94 Room Air 12/01/22 23:00 36.4 C L 63 22 177/68 H 96 Room Air 12/01/22 20:00 Room Air 12/01/22 19:00 36.3 C L 66 21 185/72 H 97 Room Air Resident Activity Tracking Resident Involvement: Resident Care Provided Care Provided: Adult Hospital Medicine (5) COPD (chronic obstructive pulmonary disease) COPD type: unspecified COPD Qualified Code(s): J44.9 - Chronic obstructive pulmonary disease, unspecified (7) Diabetes Diabetes mellitus complication status: with hyperglycemia Diabetes mellitus 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
[2022-12-02] MEDS ORDERED: LANTUS PER UNIT CHARGE SC ONE (07:30)
[2022-12-02] MEDS ORDERED: GLUCOSE 40% GEL 15 GM TUBE PO PRN (07:30)
[2022-12-02] MEDS ORDERED: GLUCAGON FOR INJ 1 MG VIAL IM PRN (07:30)
[2022-12-02] MEDS ORDERED: GLUCOSE 10 TAB/TUBE PO PRN (07:30)
[2022-12-02] MEDS ORDERED: DEXTROSE 50% 50 ML SYRINGE IV PRN (07:30)
[2022-12-02] MEDS ORDERED: CARBOHYDRATES FOR HYPOGLYCEMIA PO PRN (07:30)
[2022-12-02] MEDS ORDERED: POTASSIUM CHLORIDE CRTAB 20 MEQ TABCR PO ONE (07:45)
[2022-12-02] MEDS: clonazePAM 1 MG TAB PO SCH (08:11)
[2022-12-02] MEDS: POTASSIUM CHLORIDE CRTAB 20 MEQ TABCR PO SCH (08:11)
[2022-12-02] MEDS: INSULIN ASPART PER UNIT CHARGE SC SCH ×3 (08:14→17:30)
[2022-12-02] MEDS: METOPROLOL TARTRATE 25 MG TAB PO SCH (08:16)
[2022-12-02] MEDS: PANTOprazole 40 MG TAB PO SCH (08:16)
[2022-12-02 08:24] LABS: BUN Creatinine Ratio 12.8 (10-20); Calcium 8.5 mg/dl (8.6-10.3); Creatinine Clr Calc Pharmacy 39.6 ml/min; Est GFR (African American) 51.5 ml/min; Est GFR (Non-African American) 44.5 ml/min; Phosphorus 2.9 mg/dl (2.5-4.9); Potassium 3.3 mmol/L (3.5-5.1)
[2022-12-02] MEDS ORDERED: LOSARTAN POTASSIUM 25 MG TAB PO SCH (09:00)
[2022-12-02] MEDS ORDERED: FLUTICASONE/VILANTEROL 200/25MCG 14 PUFFS/INHALER INH SCH (09:00)
[2022-12-02] MEDS ORDERED: ASPIRIN 81 MG ECTAB PO SCH (09:00)
[2022-12-02] MEDS ORDERED: UMECLIDINIUM BROMIDE 62.5MCG/BLISTER 7 PUFFS/INHALER INH SCH (09:00)
[2022-12-02] MEDS ORDERED: CEROVITE ADV FORMULA TAB PO SCH (09:00)
[2022-12-02] MEDS ORDERED: GABAPENTIN 100 MG CAP PO SCH (09:00)
--- NOTE | 2022-12-02 10:27 | Pharmacy Report ---
Pharmacy Glycemic Short Note 2 - Date of Service December 02, 2022 - Glycemic Short BSG Results (Last 24 hours): 12/01/22 12/01/22 12/01/22 12:42 12:45 15:10 Glucose 792 H* POC Glucose > 600 H* 538 H* 12/01/22 12/01/22 12/01/22 16:16 18:18 18:22 Glucose POC Glucose 494 H* 447 H* 486 H* 12/01/22 12/01/22 12/01/22 18:35 20:11 21:11 Glucose 478 H* POC Glucose 421 H* 376 H* 12/01/22 12/01/22 12/01/22 22:10 22:39 23:07 Glucose 332 H* POC Glucose 337 H* 289 H 12/02/22 12/02/22 12/02/22 00:16 01:11 02:17 Glucose POC Glucose 205 H 159 H 126 H 12/02/22 12/02/22 12/02/22 03:10 03:12 04:18 Glucose 106 H POC Glucose 110 H 90 12/02/22 12/02/22 12/02/22 05:12 06:21 07:15 Glucose POC Glucose 96 92 81 12/02/22 07:24 Glucose 79 POC Glucose OUTPATIENT ANTIDIABETIC REGIMEN: * Lantus 20 units SC BID * Glipizide 10 mg PO BID * HbA1c: 11.5% (10/12/22) ASSESSMENT: * 87 yo M admitted on 12/01/22 secondary to hyperglycemia. Pharmacy has been consulted to assist with inpatient glycemic management. Patient is a poorly controlled Type 2 diabetic as an outpatient. Please refer to outpatient regime n and most recent HbA1c above. * There was a question to whether this was HHS which there may have been a mild component of. Ultimately, no serum osmolarity was ordered to assist with the diagnosis. Patient was also not obtunded. Likely this was more just hyperglycemia. Initial serum BSG was 792 mg/dL. No anion gap or ketones in urine. Bicarb was 27. VBG pH was 7.40. * Initially given a 10 unit IV insulin bolus followed by starting an insulin drip at 2.3 units/hr. Patient was on the drip for about 11 hours total and received approximately 35 units of insulin. Patient was NPO and received 1.5 L of fluid in the ED. Was started on plasmalyte at 100 mL/hr upon transfer to the floor and remained NPO. Also on Unasyn for suspected urosepsis. * BSG this AM was 81 mg/dL on the insulin drip. Instructed RN to shut off the drip and give 15 units of basal. This was based on previous admission data for a similar situation just last month. K was 3.4 so that was replaced PO. Diet was ordered. Novolog was ordered based on previous admission data. PLAN FOR INPATIENT GLYCEMIC CONTROL: * Hold outpatient oral diabetes medications * Basal insulin * Lantus 15 units SC x 1 this AM * Reassess basal in the AM * Bolus insulin * NovoLog per scale ACHS or Q6hrs while NPO * Goal Range: Low 110 mg/dL - High 140 mg/dL * Correction Factor: 20 mg/dL/unit * Nutritional / Prandial insulin per carb ratio of 1 unit per 6 grams CHO consumed
--- NOTE | 2022-12-02 15:52 | Discharge Summary ---
Date of Service December 02, 2022 Admission HPI Per Admitting Provider Aj is an 87-year-old male with a past medical history of anemia of chronic disease, CKD 4, HHS, UTI, DVT, PVD, COPD, P A-fib, CAD, CHF on basal insulin who presents to the emergency department for elevated blood sugar which just read as "high "on his home BSG. Patient was recently admitted and discharged for a severe UTI at the end of October. Aj "Chang" is seen with his in the ER. Reports his blood sugar was veyr high and coulnd't get an accurate reading at home x2. Recent renal failure admit for 2 weeks, then had 7 day admit afterwards. Was doing "Somebody screwed up". Blood sugar was not stable as an outpatient. Per pts he generally had difficult to control blood sugars due to the combination of 2 types of insulin which is different than what he normally uses at home. Per his pt thinks the problem is his insulin doses, his notes that he has had blood sugars of the 700s due to infections which still seems to be present. Has a history of severe hyperglycemia with UTIs. Notes BSG was normal at recent d/c from [facility] when he was just on his normal basal insulin. Generally does not have urinary symptoms with his UTIs. Has been sick enough to become bacteremic in the past and very ill, but usually does not get dysuria/polyuria prior to progression of illness. Last Monday (8 days ago) saw Dr. Harris and had a catheter placed for a stricture. Repeat UA still infected so was supposed to start ampicillin yesterday, but was not in the [place] pharmacy so had to be called into the [place] pharmacy but due to staffing issues pharmacy was closed and could not get this from filled. History of past prostatits which seemed to improve, but cannot take cipro as this precipitated his renal failure. "Legs look better than they have in many months. Much driet than normal". No hx of SoB/pulm edema or oxygen requirements. Medical History: Reviewed Medications: Reviewed Surgical History: Reviewed Family history: Reviewed Allergies: Reviewed Social History: Reviewed Code Status: DNR/DNI Admission Exam Per Admitting Provider General: Lower and oriented to name and place. Somewhat forgetful, requires frequent redirection and history is taken with the assistance of his at bedside HEENT: Atraumatic, normocephalic. Pulm: CTAB A&P. -wheezes, -rales, -rhonchi. Symmetrical chest rise. No increased work of breathing. No respiratory distress. Cardiac: RRR, -mrg. Radial pulses intact and symmetrical. Abdominal: Nontender, nondistended, soft. BS present. Extremities: Bilateral lower extremity pitting edema. Extremities are warm and dry. Moves upper and lower extremities equally. Sensation of soft touch intact in hands and feet. Principal Diagnosis HHS Discharge Exam Constitutional: well appearing, no acute distress HEENT: normocephalic, no conjunctival injection CV: regular rhythm, regular rate, no murmur, 2+ bilateral PE up to mid calf Respiratory: Clear to auscultation bilaterally. No rhonchi, wheezes, or crackles. No increased work of breathing MSK: no gross deformities noted Skin: warm, dry, no rashes Neuro: alert, oriented, no FND noted Discharge Data Allergies Allergy/AdvReac Type Severity Reaction Status Date / Time ciprofloxacin [From Cipro] AdvReac Severe Unknown Verified 12/01/22 15:26 semaglutide [From Ozempic] AdvReac Severe NAUSEA/VOMI Verified 12/01/22 15:26 TING/ANOREX IA amlodipine AdvReac Intermediate SWELLING Verified 12/01/22 15:26 OF ANKLES ropinirole AdvReac Intermediate CHANGE IN Verified 12/01/22 15:26 MENTAL STATUS Consultations 12/01/22 16:30 ED Decision to Admit Stat Hospital Course (1) Hyperosmolar hyperglycemic state (HHS): Pt is a 87 yo male with complex PMH including recurrent severe UTIs, paroxysmal afib, UT, aortic stenosis, asthma, anxiety, BPH, HLD, HTN, and CKD presenting to the hospital due to elevated blood sugars. T2DM /w acute HHS - BS 792 upon arrival, 494 upon admission - elevated lactate, since downtrended - s/p insulin drip w/ normosol converted to subQ insulin regimen - discharged with insulin aspart 15 units with each meal in addition to his home lantus 30 units BID - pt instructed to skip aspart dose if meal adequate/doesn't eat and to record BS ~2 hrs postprandial. Pt to bring these BS to his next PCP appt CKD 3B/4 - Follows with nephrology as outpatient - Baseline creatinine 1.82.0 - Creatinine 1.97 on admission; downtrended to 1.41 - continue losartan, bumex upon discharge Concern for UTI - UA is with 4+ bacteria, leukocyte esterase, and blood consistent with UTI- however without symptoms - urine cx grew gram neg bacilli >100,000 - last cx grew E. faecalis tetracycline resistant, last blood cx 11/11 no growth - unsure if this current infection is a true UTI vs. asymptomatic bacteriuria; however, pt started on ampicillin [employer] (11/30/2022) per urology so would suggest continuing this course Urethral stricture - With recurrent strictures, and history of catheterization (most recent removed 11/30/2022) - Follows with urology outpatient Heart failure with preserved ejection fraction, CAD - last echo (11/10/2022) LVEF 60-65%, moderate - does not appear to be in acute exacerbation this admission - continue metoprolol, losartan, statin, aspirin Paroxysmal A-fib - continue eliquis and metoprolol COPD - continue Breo, Incruse - no acute exacerbation - no home oxygen requirement Hypertension - cardiac meds as noted Anxiety - continue clonazepam 1 mg PO twice daily Hypothyroidism - continue synthroid Diet: DM 2 VTE prophylaxis: eliquis Dispo: home w/ close outpatient f/u Code: DNR/DNI (2) UTI (urinary tract infection): (3) Chronic kidney disease: (4) Peripheral vascular disease: (5) COPD (chronic obstructive pulmonary disease): (6) Paroxysmal atrial fibrillation: (7) Diabetes: Total Time Total Time Spent Total Time Spent (In Minutes): <30 Discharge Plan Discharge Items Patient Disposition: Home - Self-Care Reason For Visit: HHS, UTI Discharge Diagnosis: [facility] Activity: Per Instructions section Non-emergency contact: Primary Care Provider Call non-emergency contact if: you have any medication questions and your symptoms worsen Follow-up/Referrals: Cory Nunez DO [Primary Care Provider] - Rita Bradley DO [Resident] - (hospital f/u [facility]) Diet: Carb Consistent or DM2 Addtl Attending Provider Instructions: You were admitted to the hospital for elevated blood sugars. You were treated with an insulin drip which was then transitioned to subcutaneous (injections) of insulin. Due to your blood sugars not being adequately controlled at home, we have added a short acting insulin (Novolog or Humalog, insulin aspart) to your regimen. Your new diabetic regimen should look as follows: Take 30 units of your long acting insulin (Lantus) twice per day. Take 15 units of your short acting insulin (Humalog or Novolog) with each of your main meals (breakfast, lunch, and dinner). If you did not eat enough at a meal for any reason, SKIP your 15 unit dose. If you take this without eating an adequate amount of carbs, you can drop your blood sugars to a dangerously low level. Check your blood sugar about 2 hours after eating/taking your short acting insulin. Keep a log of these numbers and bring them to your next PCP appointment so they can decide if there needs to be any adjustments in your regimen. If you check your blood sugar and it is below <70, you should drink some juice or eat something sugary (candy bars, etc). Signs of low blood sugars include: - Dizziness/lightheadedness - Sweating - Confusion There is a sheet attached your discharge instructions that has further information about low blood sugars. A discharge summary will be sent to your primary care physician to ensure continuity of care. Please bring this discharge summary with you to your next office appointment so that your provider can review it at that time. Medications: Your medication list has been reviewed and reconciled upon discharge to ensure accuracy and continuity of care. An updated list of all your medications is included with your hospital discharge paperwork. Please review this list closely and make note of any changes to your medications. - The addition of a short acting insulin has been added as described above. - Otherwise continue your home medications as before your admission. Follow up appointments: - Make a follow up appointment with your PCP within the next week. It is very important that you follow up with them shortly after discharge from the hospital. - Keep all of your follow up appointments as already scheduled. If you cannot make an appointment, notify your provider. CONTACT YOUR PRIMARY CARE PROVIDER if you experience any of the following: - Difficulty following your treatment plan - Difficulty taking any of your medications CALL 911 OR GO TO THE EMERGENCY DEPARTMENT if you experience any of the following: - Sudden, severe abdominal pain or nausea/vomiting - Severe chest pain or chest pain that radiates to your jaw or arm - Sudden, severe shortness of breath or difficulty breathing Pending Studies at Discharge: No Stand-Alone Forms: [employer], Smoking Cessation Medications and DC Order Prescriptions: New insulin aspart U-100 [Novolog FlexPen U-100 Insulin] 100 unit/mL (3 mL) insulin pen 15 unit subcut AC Qty: 15 0RF Rx Instructions: Use 15 units at each adequate, main meal Continued ampicillin 500 mg capsule 500 mg PO TID Qty: 15 0RF Rx Instructions: did not pick up attendant yet insulin glargine [Lantus Solostar U-100 Insulin] 100 unit/mL (3 mL) insulin pen 20 unit subcut BID Rx Instructions: This dose stated by levothyroxine 88 mcg tablet 88 mcg PO DAILYBB Qty: 90 albuterol sulfate 90 mcg/actuation HFA aerosol inhaler 2 puffs inhalation QID PRN (Reason: shortness of breath or wheezing) potassium chloride 20 mEq tablet extended release 20 meq PO BID Rx Instructions: TAKE THIS MED WHEN TAKING BUMETANIDE. DO NOT TAKE THIS MED IF NOT TAKING BUMETANIDE. glipizide 10 mg tablet 10 mg PO BID Rx Instructions: TAKE 15-30 MINUTES PRIOR TO A MEAL. losartan 25 mg tablet 25 mg PO QAM finasteride 5 mg tablet 5 mg PO HS gabapentin 100 mg Capsule See Rx Instructions .ROUTE .COMPLEX Rx Instructions: 100 mg orally; TAKE 100 MG QAM, THEN 300 MG QPM. pantoprazole 20 mg tablet,delayed release (DR/EC) 20 mg PO BID aspirin 81 mg Tablet,Delayed Release (Dr/Ec) 81 mg PO DAILY bumetanide 2 mg Tablet 2 mg PO BID clonazepam 1 mg tablet 1 mg PO BID acetaminophen [Tylenol Extra Strength] 500 mg Tablet 1,000 mg PO Q6H PRN (Reason: PAIN/FEVER) Rx Instructions: RARELY USES ACCORDING TO . diphenhydramine HCl [Benadryl] 25 mg Capsule 25 mg PO BID PRN (Reason: NEEDED ) fluticasone propion-salmeterol 500-50 mcg/dose Blister With Device 1 inh INHALATION BID metoprolol tartrate 50 mg Tablet 25 mg PO BID multivitamin with minerals Tablet 1 tab PO DAILY rosuvastatin 20 mg Tablet 20 mg PO HS PreserVision AREDS 2,148 mcg-113 mg-45 mg-17.4mg Tablet 1 tab PO DAILY tiotropium bromide 2.5 mcg/actuation Mist 2 puff INHALATION DAILY Discharge Orders: Discharge Order (Routine); Ordered 12/02/22 Ordered By: Shawna Green/Other Patient Handouts: Hypoglycemia (Low Blood Sugar) Admission Data Admit Date/Time: 12/01/22 17:25 Attending Provider: Alexandru Harrell Admit Provider: Ayo London Primary Care Provider: Cory Nunez Other Providers: Ayo London ; [facility] Other Interventions: Discharge Summary Assessment (RN) Last Done: 12/02/22 16:26 Supervising Physician Co-Signing Physician Notes I personally examined the patient and verified all aguayo points of history and exam, discussed case, and agree with decision making with Dr Wood Feeling good and very much wants to go home. Discussed insulin management, risks/benefits/strategies. He expresses good understandingafter discussion of the next steps for managing his sugar, discussed that we can keep him in the hospital another day for further education, versus going homeshe felt comfortable and very much wanted to go home. Has good/reliable PCP follow-up. Vitals noted, in general he is awake and alert pleasant no distress. HEENT normocephalic atraumatic mucous membranes moist. Breathing unlabored no accessory muscle use good effort. Skin shows no rashes no pallor or icterus. Neuro without focal deficits. Hyperglycemic dehydration/JUDI due to hyperglycemic dehydrationall improving quite nicely. Discussed that largely it would be an insulin/carbohydrate mismatchand he is only on basal and no bolushe is comfortable starting a bolus. We discussed briefly carb counting/soft carb counting, versus static dosingwith static dosing being less optimal, but probably easier for him to dohe expressed understanding of this. Given his A1c of 11.5 and his marked hyperglycemia on admission, I think he has plenty of margin of error to protect him against hypoglycemiabut we also discussed this at length and in depthdo not take the mealtime insulin if he is not eating, did not take the mealtime insulin if he is not sure how much she is going to eatand discussed checking 2- hour postprandial glucoses to help get a feel for how well the static dosing is going. Can also transition to more dynamic/carb matching type dosing if he gets comfortable with this, but given his age and comorbidities, we discussed that largely the goal will be to keep him out of hyperglycemic dehydration, not perfect control. Safe/stable for home, close outpatient follow-up. Resident Activity Tracking Resident Involvement: Resident Care Provided Care Provided: Adult [facility] Medicine
--- NOTE | 2022-12-02 19:13 | Billing Data ---
Date of Service December 02, 2022 Coding Level of Care Code 10530 IN/OBS DISCH 30 MIN/LESS
--- NOTE | 2022-12-02 19:14 | Billing Data ---
Date of Service December 02, 2022 Coding Level of Care Code 57431 IN/OBS DISCH 30 MIN/LESS
[2022-12-02] MEDS ORDERED: APIXABAN 2.5 MG TAB PO SCH (21:00)
--- NOTE | 2022-12-03 06:15 | Electrocardiogram Report ---
Test Reason : Blood Pressure : / mmHG Vent. Rate : 063 BPM Atrial Rate : 063 BPM P-R Int : 216 ms QRS Dur : 158 ms QT Int : 450 ms P-R-T Axes : 046 -50 003 degrees QTc Int : 460 ms Sinus rhythm with sinus arrhythmia with 1st degree A-V block Left axis deviation Right bundle branch block Abnormal ECG When compared with ECG of 08-NOV-2022 22:20, Vent. rate has decreased BY 34 BPM T wave inversion less evident in Anterior leads Confirmed by Davis Dillard ([id number]) on 12/03/2022 6:15:10 AM Referred By: Confirmed By:Davis Dillard
== END 2022-12-02 17:56 | disposition home or self-care (01) | DRG 638 ==
LOC: ED 12:29 → SUATTDRO 17:25 → 4W 17:25
DX: Z66 Do not resuscitate; J44.9 Chronic obstructive pulmonary disease, unspecified; I50.32 Chronic diastolic (congestive) heart failure; E86.0 Dehydration; N40.0 Benign prostatic hyperplasia without lower urinary tract symptoms; N18.4 Chronic kidney disease, stage 4 (severe); J45.909 Unspecified asthma, uncomplicated; Z96.653 Presence of artificial knee joint, bilateral; Z88.8 Allergy status to other drugs, medicaments and biological substances; Z79.890 Hormone replacement therapy; Z79.82 Long term (current) use of aspirin; I13.0 Hypertensive heart and chronic kidney disease with heart failure and stage 1 through stage 4 chronic kidney disease, or unspecified chronic kidney disease; N35.919 Unspecified urethral stricture, male, unspecified site; E03.9 Hypothyroidism, unspecified; F41.9 Anxiety disorder, unspecified; Z20.822 Contact with and (suspected) exposure to COVID-19; I35.0 Nonrheumatic aortic (valve) stenosis; I25.10 Atherosclerotic heart disease of native coronary artery without angina pectoris; Z86.718 Personal history of other venous thrombosis and embolism; E78.5 Hyperlipidemia, unspecified; Z79.4 Long term (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; Z79.51 Long term (current) use of inhaled steroids; Z88.1 Allergy status to other antibiotic agents; Z79.899 Other long term (current) drug therapy; N39.0 Urinary tract infection, site not specified; N17.9 Acute kidney failure, unspecified; I87.8 Other specified disorders of veins; I48.0 Paroxysmal atrial fibrillation; D63.1 Anemia in chronic kidney disease; E11.00 Type 2 diabetes mellitus with hyperosmolarity without nonketotic hyperglycemic-hyperosmolar coma (NKHHC); Z95.1 Presence of aortocoronary bypass graft; I25.2 Old myocardial infarction

== ENCOUNTER 2022-12-29 15:50 | Inpatient (IN) ==
--- NOTE | 2022-12-29 16:35 | Emergency Department Note ---
History of Present Illness General Chief complaint: Lower Extremity Injury/Pain Stated complaint: PAIN IN LT LEG/FOOT AND GROIN Time Seen by Provider: 12/29/22 16:12 Source: patient, family ( was at the bedside), RN notes reviewed and old records reviewed Mode of arrival: ambulatory Limitations: no limitations History of Present Illness Maximum Pain Intensity: 10 This patient is an 87-year-old male who comes in with left leg weakness and pain for the last 6 days he cannot move or lifted. It is both pain and weakness. No trauma or injury. No numbness weakness in the left body elsewhere. He does have a complex medical history has had recent kidney failure and dialysis however his kidney is improved he is no longer on dialysis. In the interim they did lower his Eliquis because of his renal function 2.5 mg a day he does have a history of a DVT in his leg. He was seen in Dr. López's office today and apparently by the report had a negative ultrasound. He also is followed by Dr. Gunter for ongoing urinary infections and has been on ampicillin they got the cultures back today which shows resistant to ampicillin and they called in an order for Augmentin. His says he had no fever no headache no chest pain shortness breath abdominal pain no back pain she feels he is more confused the way he does when he gets urinary infections. Home Medications Medication Instructions Recorded Confirmed Type albuterol sulfate 90 mcg/actuation 2 puffs inhalation Q6H PRN 01/10/19 12/29/22 History aerosol inhaler shortness of breath or wheezing levothyroxine 88 mcg tablet 88 mcg PO DAILYBB #90 tabs 01/10/19 12/29/22 History potassium chloride 20 mEq 20 meq PO BID 01/10/19 12/29/22 History tablet,extended release finasteride 5 mg tablet 5 mg PO HS 04/23/19 12/29/22 History losartan 25 mg tablet 25 mg PO QAM 04/23/19 12/29/22 History gabapentin 100 mg capsule See Rx Instructions .Route .COMPLEX 12/16/20 12/29/22 History aspirin 81 mg tablet,delayed 81 mg PO DAILY 10/11/21 12/29/22 History release pantoprazole 20 mg tablet,delayed 20 mg PO BID 02/07/22 12/29/22 History release insulin glargine 100 unit/mL (3 30 unit subcut BID 04/12/22 12/29/22 History mL) subcutaneous pen (Lantus Solostar U-100 Insulin) acetaminophen 500 mg tablet 1,000 mg PO Q6H PRN PAIN/FEVER 05/28/22 12/29/22 History (Tylenol Extra Strength) clonazepam 1 mg tablet 1 mg PO BID 05/28/22 12/29/22 History diphenhydramine HCl 25 mg capsule 25 mg PO BID PRN NEEDED 05/28/22 12/29/22 History (Benadryl) fluticasone 500 mcg-salmeterol 50 1 inh inhalation BID 05/28/22 12/29/22 History mcg/dose blistr powdr for inhalation metoprolol tartrate 50 mg tablet 25 mg PO BID 05/28/22 12/29/22 History multivitamin with minerals 1 tab PO DAILY 05/28/22 12/29/22 History rosuvastatin 20 mg tablet 20 mg PO HS 05/28/22 12/29/22 History tiotropium bromide 2.5 2 puff inhalation DAILY 05/28/22 12/29/22 History mcg/actuation mist for inhalation vitamins A,C,U-twdn-lriagu 2,148 1 tab PO DAILY 05/28/22 12/29/22 History mcg-113 mg-45 mg-17.4 mg tablet (PreserVision AREDS) bumetanide 2 mg tablet 2 mg PO BID 12/28/22 12/29/22 History apixaban 5 mg tablet (Eliquis) 2.5 mg PO Q12H 12/29/22 12/29/22 History bacitracin zinc 500 unit-polymyxin 1 applic topical Q12H PRN Wound 12/29/22 12/29/22 History B 10,000 unit/gram topical ointment Care calcium citrate 315 mg-vitamin D3 2 tab PO DAILY 12/29/22 12/29/22 History 5 mcg (200 unit) tablet (Calcium Citrate + D) insulin aspart U-100 100 unit/mL 15 unit subcut AC PRN NEEDED 12/29/2208/18 History (3 mL) subcutaneous pen (Novolog FlexPen U-100 Insulin aspart) loratadine 10 mg tablet (Claritin) 10 mg PO DAILY PRN Congestion 12/29/22 12/29/22 History tamsulosin 0.4 mg capsule (Flomax) 0.8 mg PO HS 12/29/22 12/29/22 History Allergies Allergy/AdvReac Type Severity Reaction Status Date / Time ciprofloxacin [From Cipro] AdvReac Severe Unknown Verified 12/29/22 17:47 semaglutide [From Ozempic] AdvReac Severe NAUSEA/VOMI Verified 12/29/22 17:47 TING/ANOREX IA amlodipine AdvReac Intermediate SWELLING Verified 12/29/22 17:47 OF ANKLES ropinirole AdvReac Intermediate CHANGE IN Verified 12/29/22 17:47 MENTAL STATUS Past Med/Surg History Medical History (Updated 12/29/22 @ 23:40 by Juan Carlos Nelson MD) Acute bronchopneumonia Acute urinary retention Slvkw-yi-jctkeze kidney injury AMS (altered mental status) Anemia of chronic disease Anxiety Aortic stenosis Mild per 03/06/19 stress ECHO Asthma Uses rescue inhaler a couple times per week Atrial fibrillation Follows with Dr. Maile Soares Blindness of left eye BPH (benign prostatic hyperplasia) CAD (coronary artery disease) Angioplasty ~1993, CABG x 3 2013 (GALINDO to LAD, SVG to PDA, SVG to OM) CHF (congestive heart failure) Chronic kidney disease Follows with Dr. Dixon Chronic obstructive pulmonary disease Diabetes Type 2 IDDM Foot ulcer GERD (gastroesophageal reflux disease) Herpes zoster Hiatal hernia Hyperlipidemia Hypertension Hypervolemia Hypothyroidism Leukocytosis Macular degeneration Myocardial infarct ~1993 Peripheral neuropathy Rupture of left distal biceps tendon hx - no surgery Secondary hyperparathyroidism (of renal origin) SIRS (systemic inflammatory response syndrome) Surgical History Fusion of spine lumbar History of appendectomy History of cardiac cath with angioplasty ~1993 ([facility]) & 2013 ([facility]) History of cataract surgery bilateral History of coronary artery bypass graft x3 vessels ([facility] 2013) with epicardial RFA of pulmonary veins and left atrial appendage ligation History of revision of total replacement of right knee joint History of tonsillectomy History of tooth extraction History of total left knee replacement History of total right knee replacement Hx of colonoscopy Previous back surgery (08/26/12) S/P cholecystectomy Family History Brother Heart disease Diabetes Sister Cancer Mother Diabetes Father Diabetes Other Hypertension Kidney disease Social History Smoking Status: Never smoker Tobacco Type: Cigarettes Second Hand Exposure: No; Do You Dip or Chew Tobacco: No; Hx Alcohol Use: No Hx Substance Use: No Preferred Language: Swedish Communication Ability: Impaired Visual Impairment: Partially Limited Service Center Coordinator Required: No Beliefs That Will Affect Care: None marital status: Current Living Situation: Spouse Current Living Situation Comment: lives at home with current occupational status: retired Feels Safe at Home: Yes Assistive Devices: Walker and Wheelchair Review of Systems A total of 10 systems reviewed and were otherwise negative Physical Exam Vital Signs Vital Signs - 24 hr 12/29/22 15:56 12/29/22 17:05 12/29/22 17:11 Temperature 37.2 C Temperature Source Temporal Artery Scan Pulse Rate 73 Pulse Rate [Right Finger] 77 Pulse Rate from SpO2 Sensor Pulse Rhythm Regular Pulse Strength Normal Respiratory Rate 18 24 Respiratory Effort / Characteristics Non-Labored Respiratory Depth Normal Blood Pressure 123/58 L Blood Pressure [Right Arm] 142/88 H Blood Pressure Mean 79 Blood Pressure Mean [Right Arm] 106 Blood Pressure Position Sitting Blood Pressure Position [Right Arm] Lying Pulse Oximetry 94 97 93 Oxygen Delivery Method Room Air Room Air Room Air Sepsis Recent Fever Within 48 Hours No Sepsis New/Unexplained Change in Mental Status No Sepsis Action Taken by Nursing No Action Required 12/29/22 17:12 12/29/22 17:09 12/29/22 17:10 Temperature Temperature Source Pulse Rate 75 76 76 Pulse Rate [Right Finger] Pulse Rate from SpO2 Sensor 76 76 Pulse Rhythm Pulse Strength Respiratory Rate 22 22 Respiratory Effort / Characteristics Respiratory Depth Blood Pressure Blood Pressure [Right Arm] Blood Pressure Mean Blood Pressure Mean [Right Arm] Blood Pressure Position Blood Pressure Position [Right Arm] Pulse Oximetry 92 92 Oxygen Delivery Method Sepsis Recent Fever Within 48 Hours Sepsis New/Unexplained Change in Mental Status Sepsis Action Taken by Nursing 12/29/22 17:20 12/29/22 17:30 12/29/22 17:30 Temperature Temperature Source Pulse Rate 74 75 Pulse Rate [Right Finger] Pulse Rate from SpO2 Sensor 74 75 Pulse Rhythm Pulse Strength Respiratory Rate 24 20 Respiratory Effort / Characteristics Respiratory Depth Blood Pressure 142/94 H Blood Pressure [Right Arm] Blood Pressure Mean 104 Blood Pressure Mean [Right Arm] Blood Pressure Position Blood Pressure Position [Right Arm] Pulse Oximetry 92 92 Oxygen Delivery Method Sepsis Recent Fever Within 48 Hours Sepsis New/Unexplained Change in Mental Status Sepsis Action Taken by Nursing 12/29/22 17:40 12/29/22 17:50 12/29/22 18:00 Temperature Temperature Source Pulse Rate 73 73 Pulse Rate [Right Finger] Pulse Rate from SpO2 Sensor 73 72 Pulse Rhythm Pulse Strength Respiratory Rate 23 21 Respiratory Effort / Characteristics Respiratory Depth Blood Pressure 152/79 H Blood Pressure [Right Arm] Blood Pressure Mean 117 Blood Pressure Mean [Right Arm] Blood Pressure Position Blood Pressure Position [Right Arm] Pulse Oximetry 90 96 Oxygen Delivery Method Sepsis Recent Fever Within 48 Hours Sepsis New/Unexplained Change in Mental Status Sepsis Action Taken by Nursing 12/29/22 18:00 12/29/22 18:10 12/29/22 18:20 Temperature Temperature Source Pulse Rate 73 72 73 Pulse Rate [Right Finger] Pulse Rate from SpO2 Sensor 74 72 75 Pulse Rhythm Pulse Strength Respiratory Rate 21 19 19 Respiratory Effort / Characteristics Respiratory Depth Blood Pressure Blood Pressure [Right Arm] Blood Pressure Mean Blood Pressure Mean [Right Arm] Blood Pressure Position Blood Pressure Position [Right Arm] Pulse Oximetry 93 94 91 Oxygen Delivery Method Sepsis Recent Fever Within 48 Hours Sepsis New/Unexplained Change in Mental Status Sepsis Action Taken by Nursing 12/29/22 18:30 12/29/22 18:30 12/29/22 18:40 Temperature Temperature Source Pulse Rate 73 74 Pulse Rate [Right Finger] Pulse Rate from SpO2 Sensor 72 Pulse Rhythm Pulse Strength Respiratory Rate 21 22 Respiratory Effort / Characteristics Respiratory Depth Blood Pressure 142/57 H Blood Pressure [Right Arm] Blood Pressure Mean 93 Blood Pressure Mean [Right Arm] Blood Pressure Position Blood Pressure Position [Right Arm] Pulse Oximetry 93 Oxygen Delivery Method Sepsis Recent Fever Within 48 Hours Sepsis New/Unexplained Change in Mental Status Sepsis Action Taken by Nursing 12/29/22 19:51 12/29/22 19:51 12/29/22 20:00 Temperature Temperature Source Pulse Rate 91 H 87 Pulse Rate [Right Finger] Pulse Rate from SpO2 Sensor 94 H 88 Pulse Rhythm Pulse Strength Respiratory Rate 23 22 Respiratory Effort / Characteristics Respiratory Depth Blood Pressure 166/77 H Blood Pressure [Right Arm] Blood Pressure Mean 112 Blood Pressure Mean [Right Arm] Blood Pressure Position Blood Pressure Position [Right Arm] Pulse Oximetry 93 92 Oxygen Delivery Method Room Air Sepsis Recent Fever Within 48 Hours Sepsis New/Unexplained Change in Mental Status Sepsis Action Taken by Nursing 12/29/22 20:01 12/29/22 20:01 12/29/22 20:10 Temperature Temperature Source Pulse Rate 88 88 Pulse Rate [Right Finger] Pulse Rate from SpO2 Sensor 88 88 Pulse Rhythm Pulse Strength Respiratory Rate 23 15 Respiratory Effort / Characteristics Respiratory Depth Blood Pressure 133/62 Blood Pressure [Right Arm] Blood Pressure Mean 90 Blood Pressure Mean [Right Arm] Blood Pressure Position Blood Pressure Position [Right Arm] Pulse Oximetry 93 92 Oxygen Delivery Method Sepsis Recent Fever Within 48 Hours Sepsis New/Unexplained Change in Mental Status Sepsis Action Taken by Nursing 12/29/22 20:20 Temperature Temperature Source Pulse Rate 87 Pulse Rate [Right Finger] Pulse Rate from SpO2 Sensor 88 Pulse Rhythm Pulse Strength Respiratory Rate 15 Respiratory Effort / Characteristics Respiratory Depth Blood Pressure Blood Pressure [Right Arm] Blood Pressure Mean Blood Pressure Mean [Right Arm] Blood Pressure Position Blood Pressure Position [Right Arm] Pulse Oximetry 92 Oxygen Delivery Method Sepsis Recent Fever Within 48 Hours Sepsis New/Unexplained Change in Mental Status Sepsis Action Taken by Nursing General: Well developed well nourished older male who appears in no acute distress, breathing comfortably on room air. Normal speech HEENT: Normal cephalic atraumatic. Pupils are equal round and reactive to light. Extraocular movements are intact. Oropharynx is pink with moist mucous membranes. No swelling of the mouth lips or tongue. Neck: Supple with a midline trachea. No meningeal signs or stiffness, no JVD or bruits. No Stridor. Chest: Clear to auscultation bilaterally. No wheezes or rhonchi. No increased work of breathing. Heart: Regular rate and rhythm without murmurs or gallops. Abdomen: Soft nontender, nondistended without rebound guarding or rigidity. Extremities: No cyanosis clubbing. The left leg is mildly swollen compared to the right. Is tender in the betts. He seems diffusely weak and has not as much pain in the other joints but just the betts no calf tenderness or assymetry Spine/Back. Non tender to palpation. No CVA tenderness Skin: Good turgor without rashes. Neurologic exam: Cranial nerves two through 12 are intact. Motor and sensation are intact and symmetrical throughout with exception of weakness in the left leg Course Administered Medications Discontinued Medications Dextrose (Dextrose 50% 50 Ml Syringe) 50 ml IV NOW STA Stop: 12/29/22 18:41 Last Admin: 12/29/22 19:18 Dose: 50 ml Documented By: ANGELIQUE Ceftriaxone Sodium (Rocephin) 2,000 mg in 70 mls @ 140 mls/hr IV NOW STA Stop: 12/29/22 17:05 Last Infusion: 12/29/22 18:36 Dose: 0 mls/hr Documented By: Admin: 12/29/22 17:59 Dose: 140 mls/hr Documented By: ANGELIQUE Sodium Chloride (Nss 1000ml) 500 mls @ 999 mls/hr IV .Q31M ONE Stop: 12/29/22 18:43 Last Infusion: 12/29/22 19:16 Dose: 0 mls/hr Documented By: Admin: 12/29/22 18:39 Dose: 999 mls/hr Documented By: ANGELIQUE Calcium Gluconate 1,000 mg/ (Dextrose) 60 mls @ 240 mls/hr IV ONCE STA Stop: 12/29/22 18:54 Last Infusion: 12/29/22 19:36 Dose: 0 mls/hr Documented By: Admin: 12/29/22 19:18 Dose: 240 mls/hr Documented By: ANGELIQUE Sodium Bicarbonate 150 meq/ (Dextrose) 1,150 mls @ 290 mls/hr IV .Q3H58M STA Stop: 12/29/22 22:37 Last Admin: 12/29/22 19:54 Dose: 290 mls/hr Documented By: Insulin Human Regular 10 units (/ Syringe) 9.9 mls @ 3 mls/sec IV ONE STA Stop: 12/29/22 18:41 Last Admin: 12/29/22 19:18 Dose: 3 mls/sec Documented By: ANGELIQUE Co-signed By: Medical Decision Making Differential Diagnosis DVT, stroke, neurologic process, lumbar disease, infection, UTI, sepsis Medical Records Attestation: I reviewed the patient's medical records. Home Medications Current Medication List: was personally reviewed by me Laboratory Data Attestation: I reviewed the patient's lab results. 12/29/22 17:12 12/29/22 17:12 Lab Results 12/29/22 12/29/22 12/29/22 Range/Units 17:12 17:12 17:12 WBC 8.44 (4.8-10.8) K/ul RBC 3.04 L (4.70-6.10) M/uL Hgb 9.4 L (14.0-18.0) g/dl Hct 28.5 L (42.0-52.0) % MCV 93.8 (80.0-100.0) fL MCH 30.9 (25.0-34.0) pg MCHC 33.0 (32.0-36.0) g/dL RDW Std Deviation 47.8 H (36.4-46.3) fL RDW Coeff of Adrian 14.0 (11.5-14.5) % Plt Count 200 (130-400) K/uL MPV 10.0 (9.4-12.4) fL Immature Gran % (Auto) 1.1 % Neut % (Auto) 71.1 % Lymph % (Auto) 19.4 % [place] % (Auto) 7.6 % Eos % (Auto) 0.6 % Baso % (Auto) 0.2 % Neut # (Auto) 6.00 (1.40-6.50) K/uL Lymph # (Auto) 1.64 (1.2-3.4) K/uL [place] # (Auto) 0.64 H (0.11-0.59) K/uL Eos # (Auto) 0.05 (0-0.50) K/uL Baso # (Auto) 0.02 (0-0.2) K/uL Immature Gran # (Auto) 0.09 (0.01-0.20) K/uL Sodium 133 L (136-145) mmol/L Potassium 6.0 H (3.5-5.1) mmol/L Chloride 101 (98-107) mmol/L Carbon Dioxide 23 (21-32) mmol/L Anion Gap 9 (3-11) BUN 64 H (6-23) mg/dl Creatinine 4.14 H (0.6-1.4) mg/dl Est Cr Clr Drug Dosing 13.5 ml/min Est GFR ( Amer) 14.0 ml/min Est GFR (Non-Af Amer) 12.1 ml/min BUN/Creatinine Ratio 15.5 (10-20) Glucose 258 H (70-99(Fasting)) mg/dl POC Glucose (70-99) mg/dl Lactate 1.3 (0.4-2.0) mmol/L Calcium 8.9 (8.6-10.3) mg/dl Magnesium 2.1 (1.7-2.4) mg/dl Total Bilirubin 0.4 (0.2-1.0) mg/dl Direct Bilirubin 0.1 (0-0.2) mg/dl AST 19 (13-39) U/L ALT 17 (7-52) U/L Alkaline Phosphatase 150 H (34-104) U/L Troponin I High Sens 9.4 (0-20) pg/ml Total Protein 7.0 (6.0-8.3) gm/dl Albumin 3.1 L (3.4-5.0) gm/dl Procalcitonin (0-0.5) ng/ml Urine Color Urine Appearance (Clear) Urine pH (4.5-7.5) Ur Specific [place] (1.000-1.030) Urine Protein (Negative) Urine Glucose (UA) (Negative) Urine Ketones (Negative) Urine Blood (Negative) Urine Nitrite (Negative) Urine Bilirubin (Negative) Urine Urobilinogen (Negative) Ur Leukocyte Esterase (Negative) Urine WBC (Auto) (0-5) /hpf Urine RBC (Auto) (0-4) /hpf U Hyaline Cast (Auto) (0-5) /lpf U Epithel Cells (Auto) (0-5) /lpf Urine Bacteria (Auto) (Negative) 12/29/22 12/29/22 12/29/22 Range/Units 17:12 18:55 20:20 WBC (4.8-10.8) K/ul RBC (4.70-6.10) M/uL Hgb (14.0-18.0) g/dl Hct (42.0-52.0) % MCV (80.0-100.0) fL MCH (25.0-34.0) pg MCHC (32.0-36.0) g/dL RDW Std Deviation (36.4-46.3) fL RDW Coeff of Adrian (11.5-14.5) % Plt Count (130-400) K/uL MPV (9.4-12.4) fL Immature Gran % (Auto) % Neut % (Auto) % Lymph % (Auto) % [place] % (Auto) % Eos % (Auto) % Baso % (Auto) % Neut # (Auto) (1.40-6.50) K/uL Lymph # (Auto) (1.2-3.4) K/uL [place] # (Auto) (0.11-0.59) K/uL Eos # (Auto) (0-0.50) K/uL Baso # (Auto) (0-0.2) K/uL Immature Gran # (Auto) (0.01-0.20) K/uL Sodium (136-145) mmol/L Potassium (3.5-5.1) mmol/L Chloride (98-107) mmol/L Carbon Dioxide (21-32) mmol/L Anion Gap (3-11) BUN (6-23) mg/dl Creatinine (0.6-1.4) mg/dl Est Cr Clr Drug Dosing ml/min Est GFR ( Amer) ml/min Est GFR (Non-Af Amer) ml/min BUN/Creatinine Ratio (10-20) Glucose (70-99(Fasting)) mg/dl POC Glucose 245 H (70-99) mg/dl Lactate (0.4-2.0) mmol/L Calcium (8.6-10.3) mg/dl Magnesium (1.7-2.4) mg/dl Total Bilirubin (0.2-1.0) mg/dl Direct Bilirubin (0-0.2) mg/dl AST (13-39) U/L ALT (7-52) U/L Alkaline Phosphatase (34-104) U/L Troponin I High Sens (0-20) pg/ml Total Protein (6.0-8.3) gm/dl Albumin (3.4-5.0) gm/dl Procalcitonin 0.66 H (0-0.5) ng/ml Urine Color Yellow Urine Appearance Clear (Clear) Urine pH 6.0 (4.5-7.5) Ur Specific [place] 1.014 (1.000-1.030) Urine Protein 3+ H (Negative) Urine Glucose (UA) Negative (Negative) Urine Ketones Negative (Negative) Urine Blood Trace H (Negative) Urine Nitrite Negative (Negative) Urine Bilirubin Negative (Negative) Urine Urobilinogen Negative (Negative) Ur Leukocyte Esterase Trace H (Negative) Urine WBC (Auto) 10-30 H (0-5) /hpf Urine RBC (Auto) 0-4 (0-4) /hpf U Hyaline Cast (Auto) 1-5 (0-5) /lpf U Epithel Cells (Auto) 20-30 H (0-5) /lpf Urine Bacteria (Auto) Negative (Negative) Imaging Data Attestation: I personally reviewed and interpreted this imaging study as follows: My Impression: Chest x-raycardiomegaly with central vascular congestion. No pneumothorax Head CTno hemorrhage or mass effect seen Radiologist's Impression: Chest X-Ray 12/29/22 16:28 XR chest 1V portable CLINICAL HISTORY: Sepsis COMPARISON STUDY: Chest CT November 09, 2022. Chest radiograph December 01, 2022. FINDINGS: Median sternotomy wires are noted. Moderate cardiomegaly is unchanged. There is no pneumothorax. No pleural effusion. Pulmonary vascular congestion persists. The appearance of the chest is unchanged. There is no consolidation to suggest pneumonia. IMPRESSION: Cardiomegaly and pulmonary vascular congestion, similar to prior exam. ACT 112: Negative or not required by law. Electronically signed by: Colin Cannon M.D. 12/29/2022 5:[address] 12/29/22 16:28 CT OF THE HEAD WITHOUT CONTRAST CLINICAL HISTORY: left leg weakness COMPARISON STUDY: MRI of the brain May 30, 2016. Head CT November 12, 2022. TECHNIQUE: Helical axial images of the head were obtained without IV contrast. Automated exposure control was utilized for the study. A dose lowering fouzia hnique was utilized adhering to the principles of ALARA. FINDINGS: No acute intracranial hemorrhage, midline shift or mass effect is present. The ventricular system is unremarkable. The basal cisterns are patent. No extra-axial collections are present. There are no findings to suggest acute dural sinus thrombosis or acute territorial infarct. No significant calvarial abnormalities are present. Visualized portions of the sinuses and mastoid air cells are clear. IMPRESSION: No acute intracranial findings. No change in appearance of the brain. ACT 112: Negative or not required by law. Electronically signed by: Colin Cannon M.D. 12/29/2022 4:[address] 12/29/22 16:28 CT lumbar spine wo con CLINICAL HISTORY: Left leg weakness. Fall. COMPARISON STUDY: Abdomen pelvis CT November 09, 2022. TECHNIQUE: Axial images of the lumbar spine were obtained without IV contrast. Sagittal and coronal reconstructions were viewed. Automated exposure control was utilized for the study. A dose lowering technique was utilized adhering to the principles of ALARA. FINDINGS: For purposes of numbering on this exam, the L5-S1 disc space is assigned to axial image 359 of [id number]. There are postoperative findings consistent with L4-L5 discectomy and posterior decompression and bilateral pedicle screw fusion from L2 through L5. The hardware is intact. There is no acute lumbar spine fracture. Exam is mildly compromised by artifact. Postoperative appearance is similar to CT of November 09, 2022. Central canal and neural foramen are suboptimally assessed given CT technique. Paravertebral soft tissues are unremarkable. There are no suspicious osseous lesions. IMPRESSION: 1. No acute lumbar spine fracture or subluxation. 2. Status post L4-L5 discectomy and L2-L5 posterior decompression and bilateral pedicle screw fusion. Hardware intact. 3. Multilevel facet arthrosis, disc space narrowing and osteophytosis. ACT 112: Negative or not required by law. Electronically signed by: Colin Cannon M.D. 12/29/2022 5:03 PM Abdomen/Pelvis CT 12/29/22 18:12 Exam(s): CT ABDOMEN + PELVIS Without Contrast EXAM: CT Abdomen and Pelvis Without Intravenous Contrast CLINICAL HISTORY: Reason for exam: worsening renal function, eval for obst. TECHNIQUE: Axial computed tomography images of the abdomen and pelvis without intravenous contrast. CTDI is 27.23 mGy and DLP is 1274.19 mGy-cm. Automated exposure control was utilized for the study. A dose lowering technique was utilized adhering to the principles of ALARA. COMPARISON: 11/09/22 FINDINGS: There is evidence of previous midline sternotomy. Heart size is normal. There is mild atelectasis at the lung bases. Gallbladder is not visualized and likely surgically absent. There is no biliary dilatation. Unenhanced appearance of the liver, spleen, pancreas, and adrenal glands is unremarkable. There is nonspecific perinephric stranding bilaterally without hydronephrosis or radiopaque stones. There is aortoiliac atherosclerosis without aneurysm. There is no adenopathy, free fluid, or free air. There is no bowel obstruction or inflammation. Appendix is not visualized, but there are no secondary signs of acute appendicitis. Bladder wall is thickened. There is a possible TURP defect within the prostate. There is a fat-containing right inguinal hernia. Subcutaneous induration in the right lower quadrant abdominal suggests site of medication injection. Multilevel laminectomy has been performed in the lumbar spine. There is posterior hardware fixation extending from L2-L5. Hardware appears intact. There is no acute fracture or dislocation. IMPRESSION: 1. Nonspecific perinephric stranding. No hydronephrosis or radiopaque stones. 2. Bladder wall thickening which may be on the basis of chronic outlet obstruction or cystitis. 3. Correlate with urinalysis. Electronically signed by: Neftali Franks M.D. 12/29/22 20:07 PM ECG Data Attestation: I personally reviewed and interpreted this ECG as follows: Indication: + weakness Rate (beats per minute): 78 Rhythm: + normal sinus ECG Intervals/blocks: + First degree AV block and + Right Bundle branch block ECG [place]: + Normal ECG ST segments: + Normal ST segments ECG Findings: no PACs or no PVCs Comparison ECG Date: from (12/01/22) Change: no significant change MDM Narrative This patient comes in as scribed above. He was placed in room B2 on a color television console monitor. He is having weakness of his left leg and the differential is broad he did have an ultrasound that was done at [facility] at 3 PM which was negative for DVT, I did confirm this with Dr. López. He is also ongoing UTI which may be playing a role in some of the weakness as well. I did a sepsis type work-up , I did discuss antibiotic choicies with Shin, our ED pharmacist, and we are going to give him Rocephin 2 g IV. I also got a CAT scan of the head as well as imaging of the back and abdomen to rule out any etiologies for weakness either central neurologic or related to his back/abdomen. Urinalysis was obtained he was reassessed frequently. His inflammatory markers do not suggest sepsis. I am concerned however his kidney function is gotten significantly worse compared to baseline his creatinine is over 4 where he normally runs in the 2 range his potassium is also high at 6. I did look at labs that were done at [facility] yesterday and these were also in the similar range. Is hard to tell if he has any peaked T waves because he has a bundle branch block and noted that definitive EKG changes. I did treat him for his hyperkalemia with IV calcium gluconate, IV sodium bicarb, IV insulin and glucose. I did discuss the case at length with Dr. Avila. I also ordered a CT stone study to rule out any obstructive uropathy. The patient will be admitted for further treatment and evaluation. Continuous color television console monitor: Orders placed in EMR for continuous cardiac monitoring: Upon my evaluation patient noted to be in normal sinus rhythm with a rate of 80 Impression & Plan Acute renal failure, Left leg weakness, Antiplatelet or antithrombotic long- term use, UTI (urinary tract infection), Acute hyperkalemia Discharge Plan Visit Data Chief Complaint: Lower Extremity Injury/Pain Stated Complaint: PAIN IN LT LEG/FOOT AND GROIN ED Provider: Juan Carlos Nelson Discharge Problem: Acute renal failure, Left leg weakness, Antiplatelet or antithrombotic long- term use, UTI (urinary tract infection), Acute hyperkalemia Patient Disposition: Admitted As Inpatient Discharge Instructions Interventions: ED Discharge Assessment Last Done: 12/29/22 21:51
[2022-12-29] MEDS ORDERED: cefTRIAXone SODIUM 2,000 MG/70 ML BAG IV STA (16:36)
--- NOTE | 2022-12-29 16:54 | CT Scan Report ---
CT OF THE HEAD WITHOUT CONTRAST CLINICAL HISTORY: left leg weakness COMPARISON STUDY: MRI of the brain May 30, 2016. Head CT November 12, 2022. TECHNIQUE: Helical axial images of the head were obtained without IV contrast. Automated exposure con trol was utilized for the study. A dose lowering technique was utilized adhering to the principles o f ALARA. FINDINGS: No acute intracranial hemorrhage, midline shift or mass effect is present. The ventricular system is unremarkable. The basal cisterns are patent. No extra-axial collections are present. There are no findings to suggest acute dural sinus thrombosis or acute territorial infarct. No significant calvarial abnormalities are present. Visualized portions of the sinuses and mastoid air cells are isai ar. IMPRESSION: No acute intracranial findings. No change in appearance of the brain. ACT 112: Negative or not required by law. Electronically signed by: Colin Cannon M.D. 12/29/2022 4:52 PM
--- NOTE | 2022-12-29 17:04 | CT Scan Report ---
CT lumbar spine wo con CLINICAL HISTORY: Left leg weakness. Fall. COMPARISON STUDY: Abdomen pelvis CT November 09, 2022. TECHNIQUE: Axial images of the lumbar spine were obtained without IV contrast. Sagittal and coronal r econstructions were viewed. Automated exposure control was utilized for the study. A dose lowering t echnique was utilized adhering to the principles of ALARA. FINDINGS: For purposes of numbering on this exam, the L5-S1 disc space is assigned to axial image 359 of 452. There are postoperative findings consistent with L4-L5 discectomy and posterior decompressio n and bilateral pedicle screw fusion from L2 through L5. The hardware is intact. There is no acute burton mbar spine fracture. Exam is mildly compromised by artifact. Postoperative appearance is similar to C T of November 09, 2022. Central canal and neural foramen are suboptimally assessed given CT technique. Pa ravertebral soft tissues are unremarkable. There are no suspicious osseous lesions. IMPRESSION: 1. No acute lumbar spine fracture or subluxation. 2. Status post L4-L5 discectomy and L2-L5 posterior decompression and bilateral pedicle screw fusion. Hardware intact. 3. Multilevel facet arthrosis, disc space narrowing and osteophytosis. ACT 112: Negative or not required by law. Electronically signed by: Colin Cannon M.D. 12/29/2022 5:03 PM
--- NOTE | 2022-12-29 17:11 | XRay Report ---
XR chest 1V portable CLINICAL HISTORY: Sepsis COMPARISON STUDY: Chest CT November 09, 2022. Chest radiograph December 01, 2022. FINDINGS: Median sternotomy wires are noted. Moderate cardiomegaly is unchanged. There is no pneumoth orax. No pleural effusion. Pulmonary vascular congestion persists. The appearance of the chest is unc hanged. There is no consolidation to suggest pneumonia. IMPRESSION: Cardiomegaly and pulmonary vascular congestion, similar to prior exam. ACT 112: Negative or not required by law. Electronically signed by: Colin Cannon M.D. 12/29/2022 5:09 PM
[2022-12-29 17:49] LABS: Basophils # (auto) 0.02 K/uL (0-0.2); Basophils % (auto) 0.2 %; Eosinophils # (auto) 0.05 K/uL (0-0.50); Eosinophils % (auto) 0.6 %; Hematocrit (blood only) 28.5 % (42.0-52.0); Hemoglobin 9.4 g/dl (14.0-18.0); Immature Granulocytes # (auto) 0.09 K/uL (0.01-0.20); Immature Granulocytes % (auto) 1.1 %; Lymphocytes # (auto) 1.64 K/uL (1.2-3.4); Lymphocytes % (auto) 19.4 %; Mean Corpuscular Hemoglobin 30.9 pg (25.0-34.0); Mean Corpuscular Volume 93.8 fL (80.0-100.0); Monocytes # (auto) 0.64 K/uL (0.11-0.59); Monocytes % (auto) 7.6 %; Neutrophils % (auto) 71.1 %; Platelet Count 200 K/uL (130-400); RDW Standard Deviation 47.8 fL (36.4-46.3); Red Blood Count 3.04 M/uL (4.70-6.10); White Blood Count 8.44 K/ul (4.8-10.8)
[2022-12-29] MEDS ORDERED: SODIUM CHLORIDE 0.9% 1000ML 500 ML IV ONE (18:13)
[2022-12-29 18:14] LABS: Albumin Level 3.1 gm/dl (3.4-5.0); BUN Creatinine Ratio 15.5 (10-20); Bilirubin Direct 0.1 mg/dl (0-0.2); Bilirubin,Total 0.4 mg/dl (0.2-1.0); Calcium 8.9 mg/dl (8.6-10.3); Creatinine Clr Calc Pharmacy 13.5 ml/min; Est GFR (Non-African American) 12.1 ml/min; Magnesium 2.1 mg/dl (1.7-2.4); Troponin I High Sensitivity 9.4 pg/ml (0-20)
[2022-12-29] MEDS ORDERED: INSULIN HUMAN REGULAR PER UNIT 10 UNITS in SYRINGE 9.9 ML IV STA (18:40)
[2022-12-29] MEDS ORDERED: STAT IV STA (18:40)
[2022-12-29] MEDS ORDERED: DEXTROSE 50% 50 ML SYRINGE IV STA (18:40)
[2022-12-29] MEDS ORDERED: CALCIUM GLUCONATE 10% 1,000 MG in DEXTROSE 5% 50 ML IV STA (18:40)
[2022-12-29] MEDS ORDERED: SODIUM BICARBONATE 8.4% 150 MEQ in DEXTROSE 5% 1,000 ML IV STA (18:40)
--- NOTE | 2022-12-29 19:42 | History & Physical Report ---
Date of Service December 29, 2022 Assessment & Plan (1) Left leg weakness: Plan: JUDI on CKD - creatine went from 2.3 to 4.1 in 2 days (baseline 1.8-2) - CT abdomen/pelvis without stones of nephrolithiasis or hydronephrosis. Did show bladder wall thickening - follows with nephrology as an OP - does not appear hypervolemic on exam, has had some decreased oral intake so could be pre-renal secondary to poor po intake - Hold Bumex, losartan - s/p 500ml NSS in ED, give an additional 500ml @80ml/hr cautiously given history of HFpEF Weakness - CT Lumbar spine without acute changes - pain likely progression of chronic low back pain UTI - UA consistent with UTI, urine culture from 12/27 growing Klebsiella that was susceptible to ceftriaxone - Will continue ceftriaxone pending urine culture DM2 - home regimen; nsulin aspart 15 units with each meal in addition to his home lantus 30 units BID - Will start on SSI with correction factor of 20 and carb ratio of 7, Lantus 18 units BID - hemoglobin a1c= 11.5 on 09/2022, repeat with morning labs Anxiety - continue clonazepam Hypothyroidism - continue levothyroxine - TSH= 1.9 on 12/01 Heart failure with preserved ejection fraction, CAD - last echo (11/10/2022) LVEF 60-65%, moderate - does not appear to be hypervolemic - continue metoprolol, statin, aspirin, hold losartan in the setting of JUDI COPD - continue Breo, Incruse - Albuterol prn Paroxysmal A-fib - continue Eliquis and metoprolol GERD - continue pantoprazole Diet: Low K, carb consistent, heart healthy Dispo: Med Surg with tele Code: DNR/DNI VTE Prophylaxis: Eliquis (2) Acute UTI (urinary tract infection): (3) Anemia of chronic disease: (4) Chronic kidney disease, stage 4 (severe): (5) Acute kidney injury: (6) Hyperkalemia: (7) Hypothyroidism: (8) Hypertension: (9) Dyslipidemia: (10) Paroxysmal atrial fibrillation: (11) Anxiety: History of Present Illness Primary Care Provider: Cory Nunez DO 87 year old male with a past medical history of anemia of chronic disease, CKD 4, HHS, UTI, DVT, PVD, COPD, P A-fib, CAD, CHF on basal insulin presenting with left LE weakness for the past 6 days. States that he can not move or lift that left secondary to both pain. Has been in bed for a lot of the past week. Has been urinating. Had not urinated since this morning prior to arrival, but did urinate in the ED. also notes that he has had intermittent delirium, which has gotten worse over this time period. Had a UA on 12/27 that grew klebsiella and was put on ampicillin, sensitives show it was resistant to ampicillin. Plan was to switch to Augmentin today, but never got from pharmacy. He was seen by his PCP this afternoon, US LE was negative for DVT. ED Course Significant for: Creatine= 4.14 (on 12/27 was 2.36). K= 6. Glucose 258. Troponin negative. Procal= 0.66. Hemoglobin= 9.4 (around baseline). UA 3+ protein, trace blood, trace LE, 10-[address] Head/Lumbar Spine negative. Ct abdomen/pelvis with bladder wall thickening. CXR with pulmonary vascular congestion. In the ED was given Rocephin, 500mL NSS, calcium gluconate, sodium bicarb, 10 units insulin Allergies Allergy/AdvReac Type Severity Reaction Status Date / Time ciprofloxacin [From Cipro] AdvReac Severe Unknown Verified 12/29/22 17:47 semaglutide [From Ozempic] AdvReac Severe NAUSEA/VOMI Verified 12/29/22 17:47 TING/ANOREX IA amlodipine AdvReac Intermediate SWELLING Verified 12/29/22 17:47 OF ANKLES ropinirole AdvReac Intermediate CHANGE IN Verified 12/29/22 17:47 MENTAL STATUS Home Medications Medication Instructions Recorded Confirmed Type albuterol sulfate 90 mcg/actuation 2 puffs inhalation Q6H PRN 01/10/19 12/29/22 History aerosol inhaler shortness of breath or wheezing levothyroxine 88 mcg tablet 88 mcg PO DAILYBB #90 tabs 01/10/19 12/29/22 History potassium chloride 20 mEq 20 meq PO BID 01/10/19 12/29/22 History tablet,extended release finasteride 5 mg tablet 5 mg PO HS 04/23/19 12/29/22 History losartan 25 mg tablet 25 mg PO QAM 04/23/19 12/29/22 History gabapentin 100 mg capsule See Rx Instructions .Route .COMPLEX 12/16/20 12/29/22 History aspirin 81 mg tablet,delayed 81 mg PO DAILY 10/11/21 12/29/22 History release pantoprazole 20 mg tablet,delayed 20 mg PO BID 02/07/22 12/29/22 History release insulin glargine 100 unit/mL (3 30 unit subcut BID 04/12/22 12/29/22 History mL) subcutaneous pen (Lantus Solostar U-100 Insulin) acetaminophen 500 mg tablet 1,000 mg PO Q6H PRN PAIN/FEVER 05/28/22 12/29/22 History (Tylenol Extra Strength) clonazepam 1 mg tablet 1 mg PO BID 05/28/22 12/29/22 History diphenhydramine HCl 25 mg capsule 25 mg PO BID PRN NEEDED 05/28/22 12/29/22 History (Benadryl) fluticasone 500 mcg-salmeterol 50 1 inh inhalation BID 05/28/22 12/29/22 History mcg/dose blistr powdr for inhalation metoprolol tartrate 50 mg tablet 25 mg PO BID 05/28/22 12/29/22 History multivitamin with minerals 1 tab PO DAILY 05/28/22 12/29/22 History rosuvastatin 20 mg tablet 20 mg PO HS 05/28/22 12/29/22 History tiotropium bromide 2.5 2 puff inhalation DAILY 05/28/22 12/29/22 History mcg/actuation mist for inhalation vitamins A,C,C-vtdh-abvear 2,148 1 tab PO DAILY 05/28/22 12/29/22 History mcg-113 mg-45 mg-17.4 mg tablet (PreserVision AREDS) bumetanide 2 mg tablet 2 mg PO BID 12/28/22 12/29/22 History apixaban 5 mg tablet (Eliquis) 2.5 mg PO Q12H 12/29/22 12/29/22 History bacitracin zinc 500 unit-polymyxin 1 applic topical Q12H PRN Wound 12/29/22 12/29/22 History B 10,000 unit/gram topical ointment Care calcium citrate 315 mg-vitamin D3 2 tab PO DAILY 12/29/22 12/29/22 History 5 mcg (200 unit) tablet (Calcium Citrate + D) insulin aspart U-100 100 unit/mL 15 unit subcut AC PRN NEEDED 12/29/22 12/29/22 History (3 mL) subcutaneous pen (Novolog FlexPen U-100 Insulin aspart) loratadine 10 mg tablet (Claritin) 10 mg PO DAILY PRN Congestion 12/29/22 12/29/22 History tamsulosin 0.4 mg capsule (Flomax) 0.8 mg PO HS 12/29/22 12/29/22 History Past Med/Surg History Medical History (Updated 12/29/22 @ 23:40 by Juan Carlos Nelson MD) Acute bronchopneumonia Acute urinary retention Dkkgs-wc-eeplvca kidney injury AMS (altered mental status) Anemia of chronic disease Anxiety Aortic stenosis Mild per 03/06/19 stress ECHO Asthma Uses rescue inhaler a couple times per week Atrial fibrillation Follows with Dr. Maile Soares Blindness of left eye BPH (benign prostatic hyperplasia) CAD (coronary artery disease) Angioplasty ~1993, CABG x 3 2013 (GALINDO to LAD, SVG to PDA, SVG to OM) CHF (congestive heart failure) Chronic kidney disease Follows with Dr. Dixon Chronic obstructive pulmonary disease Diabetes Type 2 IDDM Foot ulcer GERD (gastroesophageal reflux disease) Herpes zoster Hiatal hernia Hyperlipidemia Hypertension Hypervolemia Hypothyroidism Leukocytosis Macular degeneration Myocardial infarct ~1993 Peripheral neuropathy Rupture of left distal biceps tendon hx - no surgery Secondary hyperparathyroidism (of renal origin) SIRS (systemic inflammatory response syndrome) Surgical History Fusion of spine lumbar History of appendectomy History of cardiac cath with angioplasty ~1993 ([facility]) & 2013 ([facility]) History of cataract surgery bilateral History of coronary artery bypass graft x3 vessels ([facility] 2013) with epicardial RFA of pulmonary veins and left atrial appendage ligation History of revision of total replacement of right knee joint History of tonsillectomy History of tooth extraction History of total left knee replacement History of total right knee replacement Hx of colonoscopy Previous back surgery (08/26/12) S/P cholecystectomy Family History Brother Heart disease Diabetes Sister Cancer Mother Diabetes Father Diabetes Other Hypertension Kidney disease Social History Smoking Status: Never smoker Tobacco Type: Cigarettes Second Hand Exposure: No; Do You Dip or Chew Tobacco: No; Hx Alcohol Use: No Hx Substance Use: No Preferred Language: Malay Communication Ability: Impaired Visual Impairment: Partially Limited 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 Beliefs That Will Affect Care: None marital status: Current Living Situation: Spouse Current Living Situation Comment: lives at home with current occupational status: retired Other Information That Helps Us Care for You: No Feels Safe at Home: Yes Safety Concerns: Feels Safe At This Time Assistive Devices: Walker and Wheelchair Review of Systems Review of Systems: As per above Physical Exam Physical Exam: Constitutional: well-appearing, no acute distress HEENT: NCAT, no conjunctival injection CV: regular rhythm, no murmur appreciated, extremities well-perfused, +1 pitting edema to left LE to mid betts Resp: CTABL, no wheezes/rales/rhonchi appreciated, no increased work of breathing GI: soft, nondistended, nontender, BS normoactive, no CVA tenderness MSK: no gross deformities appreciated. Strength 5/5 right LE, 4/5 left LE. Left sided calf tenderness Skin: warm, dry, no rash appreciated Neuro: alert, oriented to person, but to place, no focal neurologic deficit appreciated Results & Data Results & Data Vital Signs (Past 12 Hours) Vital Signs Temp Pulse Pulse Resp BP BP Pulse Ox 12/29/22 18:40 74 22 12/29/22 18:30 73 21 93 12/29/22 18:30 142/57 H 12/29/22 18:20 73 19 91 12/29/22 18:10 72 19 94 12/29/22 18:00 73 21 93 12/29/22 18:00 152/79 H 12/29/22 17:50 73 21 96 12/29/22 17:40 73 23 90 12/29/22 17:30 75 20 92 12/29/22 17:30 142/94 H 12/29/22 17:20 74 24 92 12/29/22 17:10 76 22 92 12/29/22 17:09 76 22 92 12/29/22 17:12 75 12/29/22 17:11 77 24 142/88 H 93 12/29/22 17:05 97 12/29/22 15:56 37.2 C 73 18 123/58 L 94 O2 Del Method 12/29/22 18:40 12/29/22 18:30 12/29/22 18:30 12/29/22 18:20 12/29/22 18:10 12/29/22 18:00 12/29/22 18:00 12/29/22 17:50 12/29/22 17:40 12/29/22 17:30 12/29/22 17:30 12/29/22 17:20 12/29/22 17:10 12/29/22 17:09 12/29/22 17:12 12/29/22 17:11 Room Air 12/29/22 17:05 Room Air 12/29/22 15:56 Room Air Supervising Physician Co-Signing Physician Notes Attending addendum: I have physically seen this patient, have supervised the medical residents activities, and agree with the H&P unless as otherwise noted. Assessment and Plan: Urinary tract infection- Culture from 12/27 growing Klebsiella sensitive to ceftriaxone Continue ceftriaxone 2 g IV daily Acute kidney injury on CKD/hyperkalemia- Creatinine 4.14 upon admission, with base range 1.40-2.5 Potassium 6.0. Status post D50 bolus with 10 units of regular insulin IV. Repeat potassium ordered Hold Bumex and losartan Status post 500 mils of normal saline in the ED Give additional 500 mL of normal saline at 80 mils per hour Repeat BMP and magnesium level in a.m. Diabetes mellitus- Reduce home Lantus from 30 units subcu twice daily to 18 units subcu twice daily Sliding scale insulin with correction factor and carb ratio as noted Repeat hemoglobin A1c HFpEF/CAD/hypertension/moderate aortic stenosis- Continuing metoprolol, aspirin Holding losartan due to JUDI and hyperkalemia Remaining orders and notations as noted Resident Activity Tracking Resident Involvement: Resident Care Provided Care Provided: Adult Hospital Medicine (7) Hypothyroidism Hypothyroidism type: unspecified Qualified Code(s): E03.9 - Hypothyroidism, unspecified (8) Hypertension Hypertension type: essential hypertension Qualified Code(s): I10 - Essential (primary) hypertension
[2022-12-29 19:45] LABS: Appearance Urine Clear (Clear); Bacteria Urine Automated Negative (Negative); Bilirubin Urine Negative (Negative); Blood Urine Trace (Negative); Color Urine Yellow; Epithelial Cell Urine Auto 20-30 /lpf (0-5); Glucose Urine UA Negative (Negative); Ketones Urine Negative (Negative); Leukocyte Esterase Urine Trace (Negative); Nitrite Urine Negative (Negative); Protein Urine 3+ (Negative); RBC Urine Automated 0-4 /hpf (0-4); Specific Gravity Urine 1.014 (1.000-1.030); Urobilinogen Urine Negative (Negative)
--- NOTE | 2022-12-29 20:07 | CT Scan Report ---
Exam(s): CT ABDOMEN + PELVIS Without Contrast EXAM: CT Abdomen and Pelvis Without Intravenous Contrast CLINICAL HISTORY: Reason for exam: worsening renal function, eval for obst. TECHNIQUE: Axial computed tomography images of the abdomen and pelvis without intravenous contrast. CTDI is 27.23 mGy and DLP is 1274.19 mGy-cm. Automated exposure control was utilized for the study. A dose lowering technique was utilized adhering to the principles of ALARA. COMPARISON: 11/09/22 FINDINGS: There is evidence of previous midline sternotomy. Heart size is normal. There is mild atelectasis at the lung bases. Gallbladder is not visualized and likely surgically absent. There is no biliary dilatation. Unenhanced appearance of the liver, spleen, pancreas, and adrenal glands is unremarkable. There is nonspecific perinephric stranding bilaterally without hydronephrosis or radiopaque stones. There is aortoiliac atherosclerosis without aneurysm. There is no adenopathy, free fluid, or free air. There is no bowel obstruction or inflammation. Appendix is not visualized, but there are no secondary signs of acute appendicitis. Bladder wall is thickened. There is a possible TURP defect within the prostate. There is a fat-containing right inguinal hernia. Subcutaneous induration in the right lower quadrant abdominal suggests site of medication injection. Multilevel laminectomy has been performed in the lumbar spine. There is posterior hardware fixation extending from L2-L5. Hardware appears intact. There is no acute fracture or dislocation. IMPRESSION: 1. Nonspecific perinephric stranding. No hydronephrosis or radiopaque stones. 2. Bladder wall thickening which may be on the basis of chronic outlet obstruction or cystitis. 3. Correlate with urinalysis. Electronically signed by: Neftali Franks M.D. 12/29/22 20:07 PM
[2022-12-29 21:44] LABS: BUN Creatinine Ratio 16.3 (10-20); Calcium 8.9 mg/dl (8.6-10.3); Creatinine Clr Calc Pharmacy 14.9 ml/min; Est GFR (African American) 15.8 ml/min; Est GFR (Non-African American) 13.7 ml/min
[2022-12-29] MEDS ORDERED: GLUCOSE 40% GEL 15 GM TUBE PO PRN (22:33)
[2022-12-29] MEDS ORDERED: GLUCOSE 10 TAB/TUBE PO PRN (22:33)
[2022-12-29] MEDS ORDERED: GLUCAGON FOR INJ 1 MG VIAL SQ PRN (22:33)
[2022-12-29] MEDS ORDERED: SODIUM CHLORIDE 0.9% 500 ML IV SCH (22:33)
[2022-12-29] MEDS ORDERED: DEXTROSE 50% 50 ML SYRINGE IV PRN (22:33)
[2022-12-30] MEDS: GABAPENTIN 100 MG CAP PO SCH ×3 (00:06→21:45)
[2022-12-30] MEDS: APIXABAN 2.5 MG TAB PO SCH ×3 (00:07→21:47)
[2022-12-30] MEDS: FINASTERIDE 5 MG TAB PO SCH ×2 (00:16→21:47)
[2022-12-30] MEDS: ROSUVASTATIN CALCIUM 20 MG TAB PO SCH ×2 (00:16→21:44)
[2022-12-30] MEDS: TAMSULOSIN HCL 0.4 MG CAP PO SCH ×2 (00:17→21:44)
[2022-12-30] MEDS: PANTOprazole 40 MG TAB PO SCH ×3 (00:17→21:44)
[2022-12-30] MEDS: METOPROLOL TARTRATE 25 MG TAB PO SCH ×3 (00:18→21:46)
[2022-12-30] MEDS: LANTUS PER UNIT CHARGE SQ SCH ×3 (00:27→21:57)
[2022-12-30] MEDS: INSULIN ASPART PER UNIT CHARGE SC SCH ×5 (00:28→21:51)
[2022-12-30] MEDS: clonazePAM 1 MG TAB PO SCH ×3 (00:30→21:57)
[2022-12-30] MEDS: LEVOTHYROXINE SODIUM 88 MCG TABLET PO SCH (06:13)
--- NOTE | 2022-12-30 07:32 | Hospitalist Progress Note ---
Date of Service December 30, 2022 Assessment & Plan (1) Left leg weakness: Plan: JUDI on CKD - creatine went from 2.3 to 4.1 in 2 days (baseline 1.8-2). Repeat Cr this morning 3.45 - CT abdomen/pelvis without stones of nephrolithiasis or hydronephrosis - follows with nephrology as an OP - does not appear hypervolemic on exam, has had some decreased oral intake so suspect pre-renal secondary to poor po intake - Hold Bumex, losartan - poor PO intake today again as he was sleeping for most of the day - ordered additional 500mL NSS - Will repeat BMP in a.m. Left Leg Pain, Weakness - Pain began abruptly over 1 week ago, no known inciting event but patient was alone at time of onset and has poor recollection of that time - CT Lumbar spine on admission without acute changes - Has chronic low back pain, although this pain appears different and more significant with manipulation of hip/rotation and radiates to groin raising concern of hip injury - Will consider ordering imaging of left hip/pelvis to rule out arthritic changes vs. fracture as possible etiology UTI - UA consistent with UTI, urine culture from 12/27 growing Klebsiella that was susceptible to ceftriaxone - Continue Ceftriaxone while awaiting repeat urine cultures DM2 - home regimen; nsulin aspart 15 units with each meal in addition to his home lantus 30 units BID - Will start on SSI with correction factor of 20 and carb ratio of 7, Lantus 18 units BID - hemoglobin a1c= 11.5 on 09/2022, repeat on admission a1c 9.5% Anxiety - continue clonazepam Hypothyroidism - continue levothyroxine - TSH= 1.9 on 12/01 Heart failure with preserved ejection fraction, CAD - last echo (11/10/2022) LVEF 60-65%, moderate - does not appear to be hypervolemic - continue metoprolol, statin, aspirin, hold losartan in the setting of JUDI COPD - continue Breo, Incruse - Albuterol prn Paroxysmal A-fib - continue Eliquis and metoprolol GERD - continue pantoprazole Diet: Low K, carb consistent, heart healthy Dispo: Med Surg with tele Code: DNR/DNI VTE Prophylaxis: Eliquis (2) Acute UTI (urinary tract infection): (3) Anemia of chronic disease: (4) Chronic kidney disease, stage 4 (severe): (5) Acute kidney injury: (6) Hyperkalemia: (7) Hypothyroidism: (8) Hypertension: (9) Dyslipidemia: (10) Paroxysmal atrial fibrillation: (11) Anxiety: Admission and Anticipated Discharge Date Admission Date: December 29, 2022 Supervising Physician Co-Signing Physician Notes I personally examined the patient and verified all aguayo points of history and exam, discussed case, and agree with decision making with Dr Gibbs a lot of left leg pain. He does not really remember any injury, but his notes that she had gone to work on Monday (a week ago and prior to that he had actually been doing really well at homewalking often without his walker, getting around well, his mobility had been improving, he was doing therapy on his own, etc.) and then whenever she was at work she got a voicemail from him that he was cold and did not know what to doshe called him back and essentially it sounds like he was a bit delirious because he did not really remember that phone call. Then whenever she came home from work later he has had left leg pain that is a little bit hard to quantifyit seems like it is his whole leg from his groin to his bottom of his foot and definitely has a lot of diffuse and/or wandering nature to it, but there is definitely a common theme of groin pain almost every time I ask about the pain in different ways it seems to involve his groin some, and every time I examined him while it hurts pretty much everywhere I touch, whenever I move or do anything with internal rotation there seems to be groin pain involved as well. Vitals noted, in general he is awake and alert seems to be more oriented than he probably was before no distress except for whenever he moves his left leg, which he does have significant pain with just about any movement, and again as above noted is a little bit hard to clarify because it does hurt pretty much everywhere to touch and the muscles do feel little bit tight and spastic pretty much everywhere touch from his betts to his calf to his quadricepsbut a very common theme as it seems like anytime I move him particularly with flexion or internal rotation it seems to provoke groin pain. Neuro without focal deficits. Recurrent UTIceftriaxone AKIprobably from dehydration from poor p.o. intake at homegentle IV fluids, follow closely delirium/metabolic encephalopathydue to above, fortunately improved at least some left leg painagree with 's concerns that he might have occult hip pathology, possibly even including hip fracture given his severe ambulatory dysfunction that it began abruptly. It is a little bit difficult on exam and history because it seems so diffuse and his whole left leg seems to be involved, but on exam the common theme regardless of what I ask or when I manipulate is that it seems to also [place] back to groin painwhich is obviously concerning for hip pathology. X-raysfracture versus arthritis flare would be the main differential. If the x-rays are negative, supportive care/timeif there is no improvement over about 24 hours, then would have a low threshold to move to CT. DVT prophylaxischronically on apixaban otherwise as above Subjective Patient seen and examined at bedside. Mr. Monroy was sleeping upon entering room with food tray in front of him, awakened easily. Appears fatigued and slightly disoriented, states he is feeling "ok" but tired. Denies any current chest pain, shortness of breath, abdominal pain. This afternoon his was at bedside any provided additional background. States that on for the past week he was doing well until Monday (December 23) when he started having chills and was unable to move his left leg due to pain. His does not recall any inciting event but she was at work when this first began. Ever since that night he has been unable to ambulate due to the left him pain. She also noted that his urine seemed "off" which lead urology to collect a urine sample and then start him on Bactrim for UTI. He saw his PCP yesterday and LE duplex was completed which did not show a DVT. He continues to complain of significant left leg pain with some radiation to the left sided low back and groin. Review of Systems Review of Systems: As per above Physical Exam Constitutional: + lethargic; no acute distress Eyes: + anicteric sclerae ENMT: External ears and nose normal, moist mucous membranes. Respiratory: No increased respiratory efforts. Lungs clear to auscultation. Cardiovascular: Rate/Rhythm: regular rate and regular rhythm +1 edema of bilateral lower extremities. Tender to palpation. Musculoskeletal: Internal rotation of left hip and knee painful, right leg with normal movement without pain Skin: Venous stasis color changes of bilateral lower extremities. No rash. Psychiatric: Lethargic, intermittently confused Results & Data Results & Data Vital Signs (Past 12 Hours) Vital Signs Temp Pulse Pulse Resp BP BP BP 12/30/22 07:13 66 12/30/22 04:15 36.4 C L 69 20 109/43 L 12/29/22 22:32 84 12/29/22 22:55 37.0 C 89 18 150/61 H 12/29/22 21:50 80 22 12/29/22 21:40 80 20 12/29/22 21:30 82 20 12/29/22 21:30 136/73 12/29/22 21:20 77 20 12/29/22 21:10 79 24 12/29/22 21:00 85 21 12/29/22 20:50 86 15 12/29/22 20:40 80 21 12/29/22 21:10 81 12/29/22 20:30 84 21 12/29/22 20:30 140/63 12/29/22 20:20 87 15 12/29/22 20:10 88 15 12/29/22 20:01 133/62 12/29/22 20:01 88 23 12/29/22 20:00 87 22 12/29/22 19:51 91 H 23 12/29/22 19:51 166/77 H Pulse Ox O2 Del Method 12/30/22 07:13 12/30/22 04:15 90 Room Air 12/29/22 22:32 12/29/22 22:55 94 Room Air 12/29/22 21:50 12/29/22 21:40 12/29/22 21:30 12/29/22 21:30 12/29/22 21:20 93 12/29/22 21:10 91 12/29/22 21:00 93 12/29/22 20:50 92 12/29/22 20:40 91 12/29/22 21:10 12/29/22 20:30 92 12/29/22 20:30 12/29/22 20:20 92 12/29/22 20:10 92 12/29/22 20:01 12/29/22 20:01 93 12/29/22 20:00 92 12/29/22 19:51 93 Room Air 12/29/22 19:51 Resident Activity Tracking Resident Involvement: Resident Care Provided Care Provided: Adult Hospital Medicine (7) Hypothyroidism Hypothyroidism type: unspecified Qualified Code(s): E03.9 - Hypothyroidism, unspecified (8) Hypertension Hypertension type: essential hypertension Qualified Code(s): I10 - Essential (primary) hypertension
[2022-12-30] MEDS: CARBOHYDRATES FOR HYPOGLYCEMIA PO PRN ×2 (07:51→08:13)
[2022-12-30] MEDS: ASPIRIN 81 MG ECTAB PO SCH (08:17)
[2022-12-30] MEDS: FLUTICASONE/VILANTEROL 200/25MCG 14 PUFFS/INHALER INH SCH (08:17)
[2022-12-30] MEDS: UMECLIDINIUM/VILANTEROL 62.5/25MCG 7 PUFFS/INHALER INH SCH (08:18)
[2022-12-30 08:27] LABS: Basophils # (auto) 0.03 K/uL (0-0.2); Basophils % (auto) 0.4 %; Eosinophils % (auto) 1.4 %; Hematocrit (blood only) 25.3 % (42.0-52.0); Hemoglobin 8.5 g/dl (14.0-18.0); Immature Granulocytes # (auto) 0.04 K/uL (0.01-0.20); Immature Granulocytes % (auto) 0.6 %; Lymphocytes # (auto) 2.16 K/uL (1.2-3.4); Lymphocytes % (auto) 29.9 %; Mean Corpuscular Hemoglobin 31.1 pg (25.0-34.0); Mean Corpuscular Hgb Conc 33.6 g/dL (32.0-36.0); Mean Corpuscular Volume 92.7 fL (80.0-100.0); Mean Platelet Volume 9.7 fL (9.4-12.4); Monocytes # (auto) 0.65 K/uL (0.11-0.59); Neutrophils # (auto) 4.24 K/uL (1.40-6.50); Neutrophils % (auto) 58.7 %; Platelet Count 187 K/uL (130-400); RDW Coefficient of Variation 14.1 % (11.5-14.5); RDW Standard Deviation 47.8 fL (36.4-46.3); Red Blood Count 2.73 M/uL (4.70-6.10); White Blood Count 7.22 K/ul (4.8-10.8)
[2022-12-30 08:39] LABS: Estimated Average Glucose 226 mg/dl; Hemoglobin A1C 9.5 % (4.5-5.6)
[2022-12-30 08:40] LABS: Albumin Globulin Ratio 0.7 (0.9-2); Albumin Level 2.5 gm/dl (3.4-5.0); BUN Creatinine Ratio 16.2 (10-20); Bilirubin,Total 0.3 mg/dl (0.2-1.0); Calcium 8.4 mg/dl (8.6-10.3); Creatinine Clr Calc Pharmacy 15.7 ml/min; Est GFR (African American) 17.5 ml/min; Est GFR (Non-African American) 15.1 ml/min; Globulin 3.4 gm/dl (2.5-4.0); Phosphorus 4.4 mg/dl (2.5-4.9); Potassium 4.2 mmol/L (3.5-5.1); Total Protein 5.9 gm/dl (6.0-8.3)
[2022-12-30] MEDS ORDERED: SODIUM CHLORIDE 0.9% 500 ML IV SCH (16:30)
[2022-12-30] MEDS: cefTRIAXone SODIUM 2,000 MG in DEXTROSE 5% 50 ML IV SCH (17:21)
--- NOTE | 2022-12-30 18:43 | Billing Data ---
Date of Service December 30, 2022 Coding Level of Care Code 47242 SUB INP/OBS CARE
--- NOTE | 2022-12-30 22:02 | XRay Report ---
SINGLE VIEW PELVIS; 2 VIEWS LEFT HIP CLINICAL HISTORY: Left hip pain. FINDINGS: An AP view of the pelvis with AP and frog-leg views of the left hip are correlated with pel khanh CT dated 12/29/2022. The skeletal structures are osteopenic. There is no radiographic evidence of a cute fracture involving the hips or bony pelvis. Mild arthritic change and joint space narrowing is s een in the hips, left greater than right. The sacroiliac joints are normal. Fusion hardware is seen i n the lower lumbar spine. The overlying soft tissues are within normal limits. Atherosclerotic calcif ication is noted in the femoral arteries. IMPRESSION: No acute bony abnormality is identified. Electronically signed by: Antonio Benjamin M.D. 12/30/2022 10:00 PM
--- NOTE | 2022-12-30 23:15 | Electrocardiogram Report ---
Test Reason : Blood Pressure : / mmHG Vent. Rate : 078 BPM Atrial Rate : 078 BPM P-R Int : 216 ms QRS Dur : 152 ms QT Int : 400 ms P-R-T Axes : 072 -52 034 degrees QTc Int : 456 ms Sinus rhythm with 1st degree A-V block Left axis deviation Right bundle branch block Abnormal ECG When compared with ECG of 01-DEC-2022 12:47, No significant change Confirmed by Davis Dillard [id number]) on 12/30/2022 11:14:30 PM Referred By: REFERRED SELF Confirmed By:Davis Dillard
--- NOTE | 2022-12-30 23:35 | Billing Data ---
Date of Service December 30, 2022 Coding Level of Care Code 37358 INT INP/OBS CARE
[2022-12-31] MEDS: LEVOTHYROXINE SODIUM 88 MCG TABLET PO SCH (06:11)
[2022-12-31] MEDS: INSULIN ASPART PER UNIT CHARGE SC SCH ×4 (08:09→21:07)
[2022-12-31] MEDS: UMECLIDINIUM/VILANTEROL 62.5/25MCG 7 PUFFS/INHALER INH SCH (08:15)
[2022-12-31] MEDS: METOPROLOL TARTRATE 25 MG TAB PO SCH ×2 (08:17→21:10)
[2022-12-31] MEDS: APIXABAN 2.5 MG TAB PO SCH ×2 (08:17→21:10)
[2022-12-31] MEDS: clonazePAM 1 MG TAB PO SCH ×2 (08:17→21:08)
[2022-12-31] MEDS: PANTOprazole 40 MG TAB PO SCH ×2 (08:18→21:09)
[2022-12-31] MEDS: ASPIRIN 81 MG ECTAB PO SCH (08:18)
[2022-12-31] MEDS: GABAPENTIN 100 MG CAP PO SCH ×2 (08:19→21:11)
[2022-12-31] MEDS: FLUTICASONE/VILANTEROL 200/25MCG 14 PUFFS/INHALER INH SCH (08:20)
[2022-12-31 08:55] LABS: BUN Creatinine Ratio 17.9 (10-20); Calcium 8.5 mg/dl (8.6-10.3); Creatinine Clr Calc Pharmacy 15.8 ml/min; Est GFR (African American) 20.1 ml/min; Est GFR (Non-African American) 17.4 ml/min; Magnesium 2.1 mg/dl (1.7-2.4); Potassium 4.2 mmol/L (3.5-5.1)
[2022-12-31 08:56] LABS: Hemoglobin 8.8 g/dl (14.0-18.0); Mean Corpuscular Hemoglobin 31.5 pg (25.0-34.0); Mean Corpuscular Hgb Conc 33.8 g/dL (32.0-36.0); Mean Corpuscular Volume 93.2 fL (80.0-100.0); Mean Platelet Volume 9.7 fL (9.4-12.4); Platelet Count 209 K/uL (130-400); RDW Coefficient of Variation 13.6 % (11.5-14.5); RDW Standard Deviation 46.6 fL (36.4-46.3); Red Blood Count 2.79 M/uL (4.70-6.10); White Blood Count 6.85 K/ul (4.8-10.8)
[2022-12-31] MEDS: LANTUS PER UNIT CHARGE SQ SCH ×2 (10:40→21:07)
--- NOTE | 2022-12-31 12:29 | Hospitalist Progress Note ---
Date of Service December 31, 2022 Assessment & Plan (1) Left leg weakness: Plan: JUDI on CKD - creatine went from 2.3 to 4.1 in 2 days (baseline 1.8-2). Repeat Cr this morning (12/31) was 3.07 - Gradual Cr improvement - CT abdomen/pelvis without stones of nephrolithiasis or hydronephrosis - follows with nephrology as an OP - does not appear hypervolemic on exam, has had some decreased oral intake so suspect pre-renal secondary to poor po intake - Hold Bumex, losartan - Appears to be eating and drinking more today, received additional 500mL IVF yesterday. Will hold further IVF if PO intake adequate and Cr continues to improve - Monitor daily BMP Left Leg Pain, Weakness - Pain began abruptly over 1 week ago, no known inciting event but patient was alone at time of onset and has poor recollection of that time - CT Lumbar spine on admission without acute changes - Left leg pain on 12/30/22 with more significant pain with manipulation of hip/rotation and radiates to groin raising concern of hip injury - Hip/Pelvis XR completed: no fractures/acute ana abnormalities - Today leg pain is largely improved and can tolerate hip rotation/manipulation, still some tenderness with palpation of L betts - Continue serial exams, if pain continues to wax and wane- may consider CT of hip to further rule out fracture if pain doesn't continue to improve UTI - UA consistent with UTI, urine culture from 12/27 growing Klebsiella that was susceptible to ceftriaxone - Urine culture from admission: final culture with no growth - Considering recent history of multiple UTIs, bacteremia- will continue with Ceftriaxone for duration of UTI treatment DM2 - Home regimen; Insulin aspart 15 units with each meal in addition to his home lantus 30 units BID - SSI with correction factor of 20 and carb ratio of 7, Lantus 18 units BID - Hypoglycemic this morning, will reduce Lantus from 18 to 15 units BID. Consider further adjustment of sliding scale if continuing to have hypoglycemic episodes - Hemoglobin a1c= 11.5 on 09/2022, repeat on admission a1c 9.5% Anxiety - Continue clonazepam Hypothyroidism - Continue levothyroxine - TSH= 1.9 on 12/01 Heart failure with preserved ejection fraction, CAD - last echo (11/10/2022) LVEF 60-65%, moderate - Does not appear to be hypervolemic - continue metoprolol, statin, aspirin, hold losartan in the setting of JUDI COPD - continue Breo, Incruse - Albuterol prn Paroxysmal A-fib - continue Eliquis and metoprolol GERD - continue pantoprazole Diet: Low K, carb consistent, heart healthy Dispo: Med Surg with tele Code: DNR/DNI VTE Prophylaxis: Eliquis (2) Acute UTI (urinary tract infection): (3) Anemia of chronic disease: (4) Chronic kidney disease, stage 4 (severe): (5) Acute kidney injury: (6) Hyperkalemia: (7) Hypothyroidism: (8) Hypertension: (9) Dyslipidemia: (10) Paroxysmal atrial fibrillation: (11) Anxiety: Admission and Anticipated Discharge Date Admission Date: December 29, 2022 Supervising Physician Co-Signing Physician Notes I personally examined the patient and verified all aguayo points of history and exam, discussed case, and agree with decision making with Dr Gibbs leg pain doing a lot better. Notes that he was able to get up some with therapy. Still hurts some, but definitely much improvedpain at rest is more or less minimal, and he is able to ambulate some. Nothing really seems to have made it better, just spontaneous. PT input appreciatedand note some limitations w hip pain. vitals noted nad heent nc at mmm breathing unlabored. msk able to have better PROM of L leg without that much pain - does eventually get pain but with flexion and internal rotaiton he does not complain of groin pain but just pain at his knee where i'm pushing. Recurrent UTIcontinue ceftriaxone AKIprobably from dehydration from poor p.o. intake at homeimproving - follow w PO intake for now - showing improvement - further IVF if improvement stalls out delirium/metabolic encephalopathydue to above, fortunately improved at least some left leg pain - Xrays negative, showing progress. ?arthritis flare? still lwo threshold to CT if plateaus or worsens in regards to occult fracture - although seems less likely now anticoagulated with eliquis, otherwise as above Subjective Patient seen and examined at bedside. Patient is seated upright in bed eating breakfast at time of encounter. He states that overnight his left leg pain improved, but is still unable to lift his left leg. He denies chest pain, shortness of breath, dysuria, or abdominal pain. Review of Systems Review of Systems: As per above Physical Exam Constitutional: + lethargic; no acute distress Eyes: + anicteric sclerae ENMT: External ears and nose normal, moist mucous membranes Respiratory: No increased respiratory efforts, lungs clear to auscultation bilaterally Cardiovascular: Rate/Rhythm: regular rate and regular rhythm Gastrointestinal (Abdomen): Abdomen soft, nontender, nondistended Musculoskeletal: Unable to lift left leg, no pain with passive movement of left knee or hip. Skin: Venous stasis skin changes at bilateral lower extremities, no draining fluid. Psychiatric: A+Ox3, euthymic affect Results & Data Results & Data Vital Signs (Past 12 Hours) Vital Signs Temp Pulse Pulse Pulse Resp BP BP 12/31/22 11:17 37.0 C 67 18 116/57 L 12/31/22 08:00 62 12/31/22 08:21 36.6 C 74 18 160/71 H 12/31/22 02:00 36.6 C 80 18 101/55 L Pulse Ox O2 Del Method 12/31/22 11:17 96 Room Air 12/31/22 08:00 12/31/22 08:21 94 Room Air 12/31/22 02:00 90 Room Air Diagnostic Findings Hip/Pelvis X-Ray 12/30/22 18:03 SINGLE VIEW PELVIS; 2 VIEWS LEFT HIP CLINICAL HISTORY: Left hip pain. FINDINGS: An AP view of the pelvis with AP and frog-leg views of the left hip are correlated with pelvic CT dated 12/29/2022. The skeletal structures are osteopenic. There is no radiographic evidence of acute fracture involving the hips or bony pelvis. Mild arthritic change and joint space narrowing is seen in the hips, left greater than right. The sacroiliac joints are normal. Fusion hardware is seen in the lower lumbar spine. The overlying soft tissues are within normal limits. Atherosclerotic calcification is noted in the femoral art eries. IMPRESSION: No acute bony abnormality is identified. Electronically signed by: Antonio Benjamin M.D. 12/30/2022 10:00 PM Resident Activity Tracking Resident Involvement: Resident Care Provided Care Provided: Adult [facility] Hospital Medicine (7) Hypothyroidism Hypothyroidism type: unspecified Qualified Code(s): E03.9 - Hypothyroidism, unspecified (8) Hypertension Hypertension type: essential hypertension Qualified Code(s): I10 - Essential (primary) hypertension
[2022-12-31] MEDS: cefTRIAXone SODIUM 2,000 MG in DEXTROSE 5% 50 ML IV SCH (17:59)
--- NOTE | 2022-12-31 18:12 | Billing Data ---
Date of Service December 31, 2022 Coding Level of Care Code 35171 SUB INP/OBS CARE MIN
[2022-12-31] MEDS: TAMSULOSIN HCL 0.4 MG CAP PO SCH (21:09)
[2022-12-31] MEDS: ROSUVASTATIN CALCIUM 20 MG TAB PO SCH (21:09)
[2022-12-31] MEDS: FINASTERIDE 5 MG TAB PO SCH (21:10)
[2022-12-31] MEDS: ACETAMINOPHEN 325 MG TAB PO PRN (21:10)
[2023-01-01] MEDS: ACETAMINOPHEN 325 MG TAB PO PRN ×3 (03:11→12:53)
[2023-01-01] MEDS: LEVOTHYROXINE SODIUM 88 MCG TABLET PO SCH (05:56)
[2023-01-01 07:07] LABS: Hematocrit (blood only) 26.3 % (42.0-52.0); Hemoglobin 8.8 g/dl (14.0-18.0); Mean Corpuscular Hemoglobin 31.1 pg (25.0-34.0); Mean Corpuscular Hgb Conc 33.5 g/dL (32.0-36.0); Mean Corpuscular Volume 92.9 fL (80.0-100.0); Mean Platelet Volume 9.3 fL (9.4-12.4); Platelet Count 216 K/uL (130-400); RDW Coefficient of Variation 13.5 % (11.5-14.5); RDW Standard Deviation 46.2 fL (36.4-46.3); Red Blood Count 2.83 M/uL (4.70-6.10); White Blood Count 7.07 K/ul (4.8-10.8)
[2023-01-01 07:23] LABS: BUN Creatinine Ratio 18.9 (10-20); Calcium 8.4 mg/dl (8.6-10.3); Creatinine Clr Calc Pharmacy 15.3 ml/min; Est GFR (African American) 19.3 ml/min; Est GFR (Non-African American) 16.6 ml/min; Magnesium 2.1 mg/dl (1.7-2.4); Potassium 4.2 mmol/L (3.5-5.1)
--- NOTE | 2023-01-01 07:38 | Hospitalist Progress Note ---
Date of Service January 01, 2023 Assessment & Plan (1) Left leg weakness: Plan: JUDI on CKD - creatine went from 2.3 to 4.1 in 2 days (baseline 1.8-2). Repeat Cr this morning (01/01) was 3.18 (was 3.07 yesterday) - CT abdomen/pelvis without stones of nephrolithiasis or hydronephrosis - follows with nephrology as an OP - does not appear hypervolemic on exam, has had some decreased oral intake so suspect pre-renal secondary to poor po intake - Hold Bumex, losartan - Poor PO intake in the past day, Cr plateaued so ordered 1L LR today and encouraged PO intake - Monitor daily BMP Left Leg Pain, Weakness - Pain began abruptly over 1 week ago, no known inciting event but patient was alone at time of onset and has poor recollection of that time - CT Lumbar spine on admission without acute changes - Left leg pain on 12/30/22 with more significant pain with manipulation of hip/rotation and radiates to groin raising concern of hip injury - Hip/Pelvis XR completed: no fractures/acute ana abnormalities - Yesterday he was able to participate with PT and leg pain was improved, but today pain is more intense and nonspecific throughout left LE. - Will consult orthopedics for evaluation UTI - UA consistent with UTI, urine culture from 12/27 growing Klebsiella that was susceptible to ceftriaxone - Urine culture from admission: final culture with no growth - Considering recent history of multiple UTIs, bacteremia- will continue with Ceftriaxone for duration of UTI treatment DM2 - Home regimen; Insulin aspart 15 units with each meal in addition to his home lantus 30 units BID - SSI with correction factor of 20 and carb ratio of 7, Lantus 15 units BID - Hemoglobin a1c= 11.5 on 09/2022, repeat on admission a1c 9.5% Anxiety - Continue clonazepam Hypothyroidism - Continue levothyroxine - TSH= 1.9 on 12/01 Heart failure with preserved ejection fraction, CAD - last echo (11/10/2022) LVEF 60-65%, moderate - Does not appear to be hypervolemic - continue metoprolol, statin, aspirin, hold losartan in the setting of JUDI COPD - continue Breo, Incruse - Albuterol prn Paroxysmal A-fib - continue Eliquis and metoprolol GERD - continue pantoprazole Diet: Low K, carb consistent, heart healthy Dispo: Med Surg with tele Code: DNR/DNI VTE Prophylaxis: Eliquis (2) Acute UTI (urinary tract infection): (3) Anemia of chronic disease: (4) Chronic kidney disease, stage 4 (severe): (5) Acute kidney injury: (6) Hyperkalemia: (7) Hypothyroidism: (8) Hypertension: (9) Dyslipidemia: (10) Paroxysmal atrial fibrillation: (11) Anxiety: Admission and Anticipated Discharge Date Admission Date: December 29, 2022 Supervising Physician Co-Signing Physician Notes I personally examined the patient and verified all aguayo points of history and exam, discussed case, and agree with decision making with Dr Gibbs Leg pain better than it was last week, but probably worse than yesterday and still persists. Has not ate or drank much, but he blames the food here rather than his ability to eat and drink. vitals noted nad heent nc at mmm breathing unlabored. No focal neurodeficits. Recurrent UTIcontinue ceftriaxone For now AKIprobably from dehydration from poor p.o. intake at home did not take in very much yesterday, creatinine showing mild bump, 1 L LR today, continue to encourage p.o. intake delirium/metabolic encephalopathydue to above, fortunately improved at least some left leg pain - Xrays negative, showing progress. ?arthritis flare? considered CT scan, but is really hard to localize exactly what is hurting in his leg. No clots either. We will ask orthopedics for opinion. anticoagulated with eliquis, otherwise as above As he gets closer to discharge, ongoing input from PT/OT to help distinguish home versus rehab. Subjective Patient seen and examined at bedside. Patient reports he did not sleep last night and his left leg pain pain has returned today. He is very tearful and states he is depressed. Nursing notes that patient appears to be sundowning, she notes his agrees. He did not eat much breakfast and barely drank anything yesterday. Review of Systems Review of Systems: As per above Physical Exam Constitutional: + lethargic; no acute distress Eyes: + anicteric sclerae ENMT: External ears and nose normal. Moist mucous membranes Respiratory: normal respiratory effort, lungs clear to auscultation Cardiovascular: Rate/Rhythm: regular rate and regular rhythm +2 edema of bilateral lower extremities, no drainage or wounds Gastrointestinal (Abdomen): Abdomen soft, nondistended Musculoskeletal: Pain with PROM of left leg including internal/external rotation, pain with palpation of left heel and distal LE. Struggles to lift left leg. Psychiatric: Tearful affect Results & Data Results & Data Vital Signs (Past 12 Hours) Vital Signs Temp Pulse Pulse Resp BP BP Pulse Ox 01/01/23 03:25 37 C 69 16 138/66 93 12/31/22 22:00 36.8 C 75 16 119/67 92 12/31/22 23:05 75 12/31/22 20:16 37.2 C 77 16 129/66 92 O2 Del Method 01/01/23 03:25 Room Air 12/31/22 22:00 Room Air 12/31/22 23:05 12/31/22 20:16 Room Air Resident Activity Tracking Resident Involvement: Resident Care Provided Care Provided: Adult Hospital Medicine (7) Hypothyroidism Hypothyroidism type: unspecified Qualified Code(s): E03.9 - Hypothyroidism, unspecified (8) Hypertension Hypertension type: essential hypertension Qualified Code(s): I10 - Essential (primary) hypertension
[2023-01-01] MEDS ORDERED: LACTATED RINGER'S 1,000 ML IV SCH (08:45)
[2023-01-01] MEDS: INSULIN ASPART PER UNIT CHARGE SC SCH ×4 (08:59→22:04)
[2023-01-01] MEDS: LANTUS PER UNIT CHARGE SQ SCH ×2 (09:02→22:04)
[2023-01-01] MEDS: PANTOprazole 40 MG TAB PO SCH ×2 (09:02→20:04)
[2023-01-01] MEDS: METOPROLOL TARTRATE 25 MG TAB PO SCH ×2 (09:02→20:04)
[2023-01-01] MEDS: clonazePAM 1 MG TAB PO SCH ×2 (09:02→20:05)
[2023-01-01] MEDS: APIXABAN 2.5 MG TAB PO SCH ×2 (09:02→20:05)
[2023-01-01] MEDS: GABAPENTIN 100 MG CAP PO SCH ×2 (09:02→20:05)
[2023-01-01] MEDS: FLUTICASONE/VILANTEROL 200/25MCG 14 PUFFS/INHALER INH SCH (09:03)
[2023-01-01] MEDS: ASPIRIN 81 MG ECTAB PO SCH (09:03)
[2023-01-01] MEDS: UMECLIDINIUM/VILANTEROL 62.5/25MCG 7 PUFFS/INHALER INH SCH (09:04)
[2023-01-01] MEDS: cefTRIAXone SODIUM 2,000 MG in DEXTROSE 5% 50 ML IV SCH (17:45)
--- NOTE | 2023-01-01 18:30 | Billing Data ---
Date of Service January 01, 2023 Coding Level of Care Code 53632 SUB INP/OBS CARE MIN
[2023-01-01] MEDS: TAMSULOSIN HCL 0.4 MG CAP PO SCH (20:04)
[2023-01-01] MEDS: ROSUVASTATIN CALCIUM 20 MG TAB PO SCH (20:04)
[2023-01-01] MEDS: FINASTERIDE 5 MG TAB PO SCH (20:05)
[2023-01-02] MEDS: LEVOTHYROXINE SODIUM 88 MCG TABLET PO SCH (05:11)
[2023-01-02 07:01] LABS: Hematocrit (blood only) 27.1 % (42.0-52.0); Hemoglobin 9.1 g/dl (14.0-18.0); Mean Corpuscular Hemoglobin 30.6 pg (25.0-34.0); Mean Corpuscular Hgb Conc 33.6 g/dL (32.0-36.0); Mean Corpuscular Volume 91.2 fL (80.0-100.0); Mean Platelet Volume 9.3 fL (9.4-12.4); Platelet Count 241 K/uL (130-400); RDW Coefficient of Variation 13.2 % (11.5-14.5); RDW Standard Deviation 44.2 fL (36.4-46.3); Red Blood Count 2.97 M/uL (4.70-6.10); White Blood Count 7.32 K/ul (4.8-10.8)
[2023-01-02 07:29] LABS: BUN Creatinine Ratio 18.1 (10-20); Calcium 8.3 mg/dl (8.6-10.3); Creatinine Clr Calc Pharmacy 13.8 ml/min; Est GFR (Non-African American) 14.7 ml/min; Magnesium 2.1 mg/dl (1.7-2.4); Potassium 4.1 mmol/L (3.5-5.1)
--- NOTE | 2023-01-02 07:35 | Hospitalist Progress Note ---
Date of Service January 02, 2023 Assessment & Plan (1) Left leg weakness: Plan: Altered Mental Status - Patient catatonic this afternoon and code purple called: vitals stable and CT head normal - Episodes of delirium, could attribute to hospital related delirium vs. uncontrolled pain vs. depression - Also on Klonopin, gabapentin chronically. Episode of catatonia this afternoon did not appear to be related to his meds JUDI on CKD - creatine went from 2.3 to 4.1 in 2 days (baseline 1.8-2). Repeat Cr this morning (01/02) was 3.53 - CT abdomen/pelvis without stones of nephrolithiasis or hydronephrosis - Consulted nephrology, appreciate recommendations - does not appear hypervolemic on exam, has had some decreased oral intake prior to admission so suspect pre-renal secondary to poor po intake - Hold Bumex, losartan - Added Lasix 20 IV, will monitor BMP in AM Left Leg Pain, Weakness - Pain began abruptly over 1 week ago, no known inciting event but patient was alone at time of onset and has poor recollection of that time - CT Lumbar spine on admission without acute changes - Left leg pain on 12/30/22 with more significant pain with manipulation of hip/rotation and radiates to groin raising concern of hip injury - Hip/Pelvis XR completed: no fractures/acute ana abnormalities - Had been able to participate with PT and leg pain was improved on 12/31, but today pain is more intense and nonspecific throughout left LE. - Ortho consulted- no plans for immediate intervention but consider outpatient hip injection UTI- Resolved - UA consistent with UTI, urine culture from 12/27 growing Klebsiella that was susceptible to ceftriaxone - Urine culture from admission: final culture with no growth - Considering recent history of multiple UTIs, bacteremia- completed course of antibiotics DM2 - Home regimen; Insulin aspart 15 units with each meal in addition to his home lantus 30 units BID - SSI with correction factor of 20 and carb ratio of 7, Lantus 15 units BID - Hemoglobin a1c= 11.5 on 09/2022, repeat on admission a1c 9.5% Anxiety - Continue clonazepam Hypothyroidism - Continue levothyroxine - TSH= 1.9 on 12/01 Heart failure with preserved ejection fraction, CAD - last echo (11/10/2022) LVEF 60-65%, moderate - Does not appear to be hypervolemic - continue metoprolol, statin, aspirin, hold losartan in the setting of JUDI COPD - continue Breo, Incruse - Albuterol prn Paroxysmal A-fib - continue Eliquis and metoprolol GERD - continue pantoprazole Diet: Low K, carb consistent, heart healthy Dispo: Med Surg with tele Code: DNR/DNI VTE Prophylaxis: Eliquis (2) Acute UTI (urinary tract infection): (3) Anemia of chronic disease: (4) Chronic kidney disease, stage 4 (severe): (5) Acute kidney injury: (6) Hyperkalemia: (7) Hypothyroidism: (8) Hypertension: (9) Dyslipidemia: (10) Paroxysmal atrial fibrillation: (11) Anxiety: Admission and Anticipated Discharge Date Admission Date: December 29, 2022 Supervising Physician Co-Signing Physician Notes Attending attestation Pt seen and examined in concert with Dr. Gibbs. In agreement with the documented findings as noted in the resident documentation with any exceptions or additions as noted here. Visibly slow to respond today initially at AM visit but once conversation started was able to meaningfully contribute at AAOx3. Ongoing left sided groin and LE pain which is inconsistently reproducible with palpation. On examination, S1/S2 nl RRR no MCG. CTAB. Abd NT/ND BS+ve Altered mental status - metabolic encephalopathy in the setting of UTI vs. pain induced delirium vs. exacerbation of underlying dementia vs. medication induced in the setting of JUDI on CKD - multifactorial cause is very likely but will move with caution as has had issues with undersedation and agitation in the past - will start with improving pain control with standing APAP and ongoing PRN pain control. Low threshold to hold sedating medications or decrease dose (though has been on clonazepam for a long time so with caution). Low threshold for ABG as well. JUDI on CKDIV - nephro consult - decreased UOP with increasing Cr in the setting of stable POI with recent IVF - trial of furosemide and close monitoring of BMP Left leg pain with weakness - OA vs. complications of spinal pathology - pain control as above, continue PT/OT. Consider consult spine surgery if symptoms change or ongoing, much more likely peripheral cause at present UTI - contine ceftriaxone to complete course Else see resident documentation as noted. Subjective Patient seen and examined at bedside. He notes more left leg pain today- worst at the hip/groin and knee. His is at bedside. This afternoon, patient was found to be unresponsive to painful stimuli and staring off into the distance. He had not received any sedating medications prior and had been eating and drinking today. Review of Systems Review of Systems: As per above Physical Exam Constitutional: + lethargic; no acute distress Eyes: + anicteric sclerae ENMT: External ears and nose normal. Moist mucous membranes Respiratory: normal respiratory effort, lungs clear to auscultation Cardiovascular: Rate/Rhythm: regular rate and regular rhythm Gastrointestinal (Abdomen): Abdomen soft, nondistended. Neurologic: Pupils equal, round, reactive Psychiatric: Difficult to arouse this afternoon. Later awake and tearful Results & Data Results & Data Vital Signs (Past 12 Hours) Vital Signs Temp Pulse Pulse Resp BP Pulse Ox O2 Del Method 01/02/23 04:28 36.7 C 82 20 150/78 H 94 Room Air 01/01/23 23:39 36.4 C L 62 20 157/77 H 96 Room Air 01/01/23 22:00 71 01/01/23 19:53 36.3 C L 65 18 144/72 H 96 Room Air Resident Activity Tracking Resident Involvement: Resident Care Provided Care Provided: Adult Hospital Medicine (7) Hypothyroidism Hypothyroidism type: unspecified Qualified Code(s): E03.9 - Hypothyroidism, unspecified (8) Hypertension Hypertension type: essential hypertension Qualified Code(s): I10 - Essential (primary) hypertension
[2023-01-02] MEDS: ASPIRIN 81 MG ECTAB PO SCH (08:18)
[2023-01-02] MEDS: APIXABAN 2.5 MG TAB PO SCH ×2 (08:18→21:08)
[2023-01-02] MEDS: GABAPENTIN 100 MG CAP PO SCH (08:20)
[2023-01-02] MEDS: METOPROLOL TARTRATE 25 MG TAB PO SCH (08:22)
[2023-01-02] MEDS: PANTOprazole 40 MG TAB PO SCH ×2 (08:23→21:07)
[2023-01-02] MEDS: clonazePAM 1 MG TAB PO SCH ×2 (08:39→21:04)
[2023-01-02] MEDS: LANTUS PER UNIT CHARGE SQ SCH ×2 (09:23→21:06)
[2023-01-02] MEDS: INSULIN ASPART PER UNIT CHARGE SC SCH ×4 (09:26→21:06)
--- NOTE | 2023-01-02 09:34 | Orthopedic Consultation ---
Date of Consultation January 02, 2023 Assessment & Plan (1) Left leg weakness: 87-year-old male with left leg weakness and pain secondary to deconditioning versus lumbar etiology; status post L4-L5 discectomy and L2-L5 decompression by Dr. Caldwell 2003. Patient was seen and examined in conjunction with Dr. Fisher. Patient has limited range of motion of his hip that appears mostly to be due to deconditioning that could be exacerbating by his mild hip OA. Would recommend physical therapy and Occupational Therapy. Discussed possibility of diagnostic hip injection as an outpatient but patient said he would prefer not to. The other possibility is his symptoms are coming from his back. May benefit from s eeing Dr. Caldwell would recommend consult to r/o spine etiology. Supervising Physician Co-Signing Physician Notes I, Dr. Fisher, saw and examined the patient with my PA and discussed the management with my PA. I reviewed my PAs note and agree with the documented findings and the plan of care I developed. Focusing on the patient's left lower extremity: 1+ DP pulse Sensation to light touch is present Motor to the gastroc soleus, tibialis anterior, hip abduction/adduction, and EHL is 4/5. - logroll hip Hip range of motion Forward flexion 90; Abduction 20; Adductions 10; ER 10; IR 5. + tenderness to palpation groin Agree with above plan. History of Present Illness Reason for Consultation: left leg pain Requesting Physician: Irena Fisher MD Attending Physician: Gary Bennett MD History of Present Illness Patient is an 87-year-old male with significant past medical history including coronary artery disease, chronic kidney disease, COPD, diabetes, heart failure, who presented to the emergency department with left leg pain and weakness. He is currently being treated for JUDI and UTI. Patient had an x-ray done of his left hip/pelvis that showed mild osteoarthritic changes. He had a CT done of his back that showed L4-L5 discectomy and L2-L5 decompression. Multilevel degenerative changes. Patient was seen today bedside. He says that his leg pain has been going on for a while now and that he just been trying to do. He describes left groin pain will radiates down his leg. He says it feels like a pulled foot up to his leg. He has some back pain. He gets some numbness and tingling off-and-on. He had left knee arthroplasty done by Dr. Gaitan. He had back surgery by Dr Wright in 2003. He also had 2 right knee surgery by Dr Estrada. He has tried walking somewhat. He says that he has been walking with a walker and cannot walk without it. Allergies Allergy/AdvReac Type Severity Reaction Status Date / Time ciprofloxacin [From Cipro] AdvReac Severe Unknown Verified 12/29/22 17:47 semaglutide [From Ozempic] AdvReac Severe NAUSEA/VOMI Verified 12/29/22 17:47 TING/ANOREX IA amlodipine AdvReac Intermediate SWELLING Verified 12/29/22 17:47 OF ANKLES ropinirole AdvReac Intermediate CHANGE IN Verified 12/29/22 17:47 MENTAL STATUS Home Medications Medication Instructions Recorded Confirmed Type albuterol sulfate 90 mcg/actuation 2 puffs inhalation Q6H PRN 01/10/19 12/29/22 History aerosol inhaler shortness of breath or wheezing levothyroxine 88 mcg tablet 88 mcg PO DAILYBB #90 tabs 01/10/19 12/29/22 History potassium chloride 20 mEq 20 meq PO BID 01/10/19 12/29/22 History tablet,extended release finasteride 5 mg tablet 5 mg PO HS 04/23/19 12/29/22 History losartan 25 mg tablet 25 mg PO QAM 04/23/19 12/29/22 History gabapentin 100 mg capsule See Rx Instructions .Route .COMPLEX 12/16/20 12/29/22 History aspirin 81 mg tablet,delayed 81 mg PO DAILY 10/11/21 12/29/22 History release pantoprazole 20 mg tablet,delayed 20 mg PO BID 02/07/22 12/29/22 History release insulin glargine 100 unit/mL (3 30 unit subcut BID 04/12/22 12/29/22 History mL) subcutaneous pen (Lantus Solostar U-100 Insulin) acetaminophen 500 mg tablet 1,000 mg PO Q6H PRN PAIN/FEVER 05/28/22 12/29/22 History (Tylenol Extra Strength) clonazepam 1 mg tablet 1 mg PO BID 05/28/22 12/29/22 History diphenhydramine HCl 25 mg capsule 25 mg PO BID PRN NEEDED 05/28/22 12/29/22 History (Benadryl) fluticasone 500 mcg-salmeterol 50 1 inh inhalation BID 05/28/22 12/29/22 History mcg/dose blistr powdr for inhalation metoprolol tartrate 50 mg tablet 25 mg PO BID 05/28/22 12/29/22 History multivitamin with minerals 1 tab PO DAILY 05/28/22 12/29/22 History rosuvastatin 20 mg tablet 20 mg PO HS 05/28/22 12/29/22 History tiotropium bromide 2.5 2 puff inhalation DAILY 05/28/22 12/29/22 History mcg/actuation mist for inhalation vitamins A,C,U-yatj-sutocu 2,148 1 tab PO DAILY 05/28/22 12/29/22 History mcg-113 mg-45 mg-17.4 mg tablet (PreserVision AREDS) bumetanide 2 mg tablet 2 mg PO BID 12/28/22 12/29/22 History apixaban 5 mg tablet (Eliquis) 2.5 mg PO Q12H 12/29/22 12/29/22 History bacitracin zinc 500 unit-polymyxin 1 applic topical Q12H PRN Wound 12/29/22 12/29/22 History B 10,000 unit/gram topical ointment Care calcium citrate 315 mg-vitamin D3 2 tab PO DAILY 12/29/22 12/29/22 History 5 mcg (200 unit) tablet (Calcium Citrate + D) insulin aspart U-100 100 unit/mL 15 unit subcut AC PRN NEEDED 12/29/22 12/29/22 History (3 mL) subcutaneous pen (Novolog FlexPen U-100 Insulin aspart) loratadine 10 mg tablet (Claritin) 10 mg PO DAILY PRN Congestion 12/29/22 12/29/22 History tamsulosin 0.4 mg capsule (Flomax) 0.8 mg PO HS 12/29/22 12/29/22 History Patient History Medical History (Updated 12/29/22 @ 23:40 by Juan Carlos Nelson MD) Acute bronchopneumonia Acute urinary retention Uvsuf-mg-iyrcnec kidney injury AMS (altered mental status) Anemia of chronic disease Anxiety Aortic stenosis Mild per 03/06/19 stress ECHO Asthma Uses rescue inhaler a couple times per week Atrial fibrillation Follows with Dr. Gr Bacteremia Blindness of left eye BPH (benign prostatic hyperplasia) CAD (coronary artery disease) Angioplasty ~1993, CABG x 3 2013 (GALINDO to LAD, SVG to PDA, SVG to OM) CHF (congestive heart failure) Chronic kidney disease Follows with Dr. Dixon Chronic obstructive pulmonary disease Diabetes Type 2 IDDM Foot ulcer GERD (gastroesophageal reflux disease) Herpes zoster Hiatal hernia Hyperlipidemia Hypertension Hypervolemia Hypothyroidism Leukocytosis Macular degeneration Myocardial infarct ~1993 Peripheral neuropathy Rupture of left distal biceps tendon hx - no surgery Secondary hyperparathyroidism (of renal origin) SIRS (systemic inflammatory response syndrome) Surgical History Fusion of spine lumbar History of appendectomy History of cardiac cath with angioplasty ~1993 ([facility]) & 2013 ([facility]) History of cataract surgery bilateral History of coronary artery bypass graft x3 vessels ([facility] 2013) with epicardial RFA of pulmonary veins and left atrial appendage ligation History of revision of total replacement of right knee joint History of tonsillectomy History of tooth extraction History of total left knee replacement History of total right knee replacement Hx of colonoscopy Previous back surgery (08/26/12) S/P cholecystectomy Family History Brother Heart disease Diabetes Sister Cancer Mother Diabetes Father Diabetes Other Hypertension Kidney disease Social History Smoking Status: Never smoker Tobacco Type: Cigarettes Second Hand Exposure: No; Do You Dip or Chew Tobacco: No; Hx Alcohol Use: No Hx Substance Use: No Preferred Language: Indonesian Communication Ability: Impaired Visual Impairment: Partially Limited Product Manufacturing Professional Required: No Beliefs That Will Affect Care: None marital status: Current Living Situation: Spouse Current Living Situation Comment: lives at home with current occupational status: retired Other Information That Helps Us Care for You: No Feels Safe at Home: Yes Safety Concerns: Feels Safe At This Time Assistive Devices: Walker and Wheelchair Physical Exam Physical Exam: Patient was lying in hospital bed upon examination. He was awake alert and oriented. He was calm and cooperative during exam. Left lower extremity: Patient was significantly limited with his range of motion and reported pain during passive range of motion. He had about 20 degrees abduction, 10 degrees of abduction, 10 degrees of external rotation 5 degrees internal rotation. He had pain with any flexion of his hip beyond 90 degrees. Negative logroll. Strength of his lower extremity was compared bilaterally and was 4 out of 5. 2+ DP pulses present. Patient does have sensation light touch distally. Skin was warm and pink. Results & Data Vital Signs (Past 12 Hours) Vital Signs Temp Pulse Pulse Pulse Resp BP Pulse Ox 01/02/23 08:00 81 01/02/23 07:42 36.9 C 79 21 144/63 H 92 01/02/23 04:28 36.7 C 82 20 150/78 H 94 01/01/23 23:39 36.4 C L 62 20 157/77 H 96 01/01/23 22:00 71 O2 Del Method 01/02/23 08:00 01/02/23 07:42 Room Air 01/02/23 04:28 Room Air 01/01/23 23:39 Room Air 01/01/23 22:00 Laboratory Results 01/02/23 01/02/23 01/02/23 Range/Units 07:51 06:00 06:00 WBC 7.32 (4.8-10.8) K/ul RBC 2.97 L (4.70-6.10) M/uL Hgb 9.1 L (14.0-18.0) g/dl Hct 27.1 L (42.0-52.0) % MCV 91.2 (80.0-100.0) fL MCH 30.6 (25.0-34.0) pg MCHC 33.6 (32.0-36.0) g/dL RDW Std Deviation 44.2 (36.4-46.3) fL RDW Coeff of Adrian 13.2 (11.5-14.5) % Plt Count 241 (130-400) K/uL MPV 9.3 L (9.4-12.4) fL Sodium 134 L (136-145) mmol/L Potassium 4.1 (3.5-5.1) mmol/L Chloride 104 (98-107) mmol/L Carbon Dioxide 22 (21-32) mmol/L Anion Gap 8 (3-11) BUN 64 H (6-23) mg/dl Creatinine 3.53 H D (0.6-1.4) mg/dl Est Cr Clr Drug Dosing 13.8 ml/min Est GFR ( Amer) 17.0 ml/min Est GFR (Non-Af Amer) 14.7 ml/min BUN/Creatinine Ratio 18.1 (10-20) Glucose 76 (70-99(Fasting)) mg/dl POC Glucose 83 (70-99) mg/dl Calcium 8.3 L (8.6-10.3) mg/dl Magnesium 2.1 (1.7-2.4) mg/dl 01/01/23 01/01/23 01/01/23 Range/Units 20:45 17:05 11:33 WBC (4.8-10.8) K/ul RBC (4.70-6.10) M/uL Hgb (14.0-18.0) g/dl Hct (42.0-52.0) % MCV (80.0-100.0) fL MCH (25.0-34.0) pg MCHC (32.0-36.0) g/dL RDW Std Deviation (36.4-46.3) fL RDW Coeff of Adrian (11.5-14.5) % Plt Count (130-400) K/uL MPV (9.4-12.4) fL Sodium (136-145) mmol/L Potassium (3.5-5.1) mmol/L Chloride (98-107) mmol/L Carbon Dioxide (21-32) mmol/L Anion Gap (3-11) BUN (6-23) mg/dl Creatinine (0.6-1.4) mg/dl Est Cr Clr Drug Dosing ml/min Est GFR ( Amer) ml/min Est GFR (Non-Af Amer) ml/min BUN/Creatinine Ratio (10-20) Glucose (70-99(Fasting)) mg/dl POC Glucose 179 H 176 H 151 H (70-99) mg/dl Calcium (8.6-10.3) mg/dl Magnesium (1.7-2.4) mg/dl Diagnostic Findings CT Lumbar Spine WO Contrast FINDINGS: For purposes of numbering on this exam, the L5-S1 disc space is assigned to axial image 359 of [id number]. There are postoperative findings consistent with L4-L5 discectomy and posterior decompression and bilateral pedicle screw fusion from L2 through L5. The hardware is intact. There is no acute lumbar spine fracture. Exam is mildly compromised by artifact. Postoperative appearance is similar to CT of November 09, 2022. Central canal and neural foramen are suboptimally assessed given CT technique. Paravertebral soft tissues are unremarkable. There are no suspicious osseous lesions. CT Abd/Pelvis WO Contrast 1. Nonspecific perinephric stranding. No hydronephrosis or radiopaque stones. 2. Bladder wall thickening which may be on the basis of chronic outlet obstruction or cystitis. 3. Correlate with urinalysis. 2V Left Hip, 1V Pelvis FINDINGS: An AP view of the pelvis with AP and frog-leg views of the left hip are correlated with pelvic CT dated 12/29/2022. The skeletal structures are osteopenic. There is no radiographic evidence of acute fracture involving the hips or bony pelvis. Mild arthritic change and joint space narrowing is seen in the hips, left greater than right. The sacroiliac joints are normal. Fusion hardware is seen in the lower lumbar spine. The overlying soft tissues are within normal limits. Atherosclerotic calcification is noted in the femoral anne sapna.
[2023-01-02] MEDS: UMECLIDINIUM/VILANTEROL 62.5/25MCG 7 PUFFS/INHALER INH SCH (09:35)
[2023-01-02] MEDS: FLUTICASONE/VILANTEROL 200/25MCG 14 PUFFS/INHALER INH SCH (09:36)
[2023-01-02] MEDS ORDERED: FUROSEMIDE INJ 20 MG/2 ML VIAL IV ONE (13:25)
[2023-01-02] MEDS: ACETAMINOPHEN 325 MG TAB PO PRN (13:42)
--- NOTE | 2023-01-02 14:00 | Nephrology Consultation ---
Date of Consultation January 02, 2023 Assessment & Plan (1) Acute renal failure: Electrolytes have been normal. Volume status acceptable. There is no emergent indication for dialysis. Chang's stated that he would be agreeable to dialysis if needed. Progressive oliguria reported. Bladder scan to be completed now. Urine catheter placement to be completed as needed. CT on admission negative for obstruction but given history I would not exclude now. I also would not exclude possible AIN associated with recent treatment with cephalosporin antibiotic therapy. Antibiotics have been stopped. Document strict I/O's. Repeat a metabolic profile now. Medications are appropriately dosed for kidney function. Suggest holding gabapentin pending improvement in mental status. Check CK with next blood work. (2) UTI (urinary tract infection): Completed treatment. Culture negative on admission s/p 2 doses of Bactrim. Monitor closely for signs of uncontrolled infection. (3) Chronic kidney disease, stage 4 (severe): Creatinine ~1.5 mg/dL at baseline. Followed by Dr. Dixon as outpatient. 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 (4) Acute kidney injury superimposed on CKD: (5) AMS (altered mental status): Emergent head CT negative for bleed. Remains on Eliquis. Frequent neurochecks and carotid duplex requested. I will defer additional evaluation and possible MRI to the hospitalist team. Preliminary evaluation demonstrating normal vitals and no acute changes on telemetry. Blood glucose acceptable. Etiology unclear. Mental status did improve when patient returned from CT. History of Present Illness Reason for Consultation: JUDI Requesting Physician: Regino Padron MD Attending Physician: Gary Bennett MD History of Present Illness Mr. Aj Monroy is an 87 year-old male with CKD III A3. Baseline creatinine was 1.4 mg/dL on December 02. Creatinine was then found to be elevated at 2.5 mg/dL on December 14. Creatinine 2.4 mg/dL on December 27. Serum creatinine 4.1 mg/dL on admission to [facility] on December 29. Creatinine improved to 3.0 mg/dL on December 31 with IVF and supportive care. Creatinine elevated at 3.5 mg/dL today. Chang has been non-oliguric but unfortunately urine output was found to be notably decreased today. Furosemide 20 mg IV was provided around 14:00 this afternoon but Chang has not voided since receiving the diuretic. Nephrology consultation was requested earlier today. 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 HD was stopped on October 13. He completed a course of prednisone for AIN. Chang follows in the outpatient nephrology clinic with Dr. Dixon. He was recently seen in the clinic on November 30. At that time, he was doing well. Volume status was being maintained with Bumex 2 mg BID. 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 He had noted urine retention at that time with urethral stricture and false passage of a urine catheter. He was then subsequently admitted November 09- with mental status changes, poor appetite, and nausea. Two falls at home were reported prior to admission. Creatinine was elevated at 2.8 mg/dL on admission. Evaluation notable for E faecalis in the blood and urine treated with ampicillin. TTE negative for vegetations. Losartan was held through the admission and restarted at discharge. Chang was discharged to [facility] where he completed rehab prior to returning home with his . He was then readmitted Dec 01 with hyperglycemia treated with insulin and IVF. Creatinine was ~1.5 mg/dL at discharge from this admission. He was discharged on Bumex 2 mg BID and losartan 25 mg daily. Earlier this month, Chang had contacted his urologist with symptoms of recurrent UTI. Symptoms included gross hematuria and back pain. Rx for renally dosed Bactrim provided. Cx +Klebsiella. Chang presented to the hospital after 2 days of the medication. Urine studies on December 29 demonstrated 3+ protein, trace LE, trace blood, and 10-[address] scan was negative for obstruction but demonstrated chronic bladder wall thickening and some associated stranding. I reviewed the patient's chart earlier today. This afternoon, I presented to the hospital around 17:00 to evaluate the patient and he was found to be unresponsive. There was no reaction to painful stimuli but he did seem to move both arms spontaneously. Chang remained in sinus rhythm on monitor. Blood glucose was 130. BP 160/70 mmHg. He was oxygenating on room air and respirations appeared unlabored. Chang was not responding to painful stimuli or opening his eyes. Pupils were equally round and reactive. No recent sedating medications had been provided. Chang received gabapentin and clonazepam this AM. Buck bond was called and emergent head CT coordinated. No acute findings were appreciated on this study. During my assessment prior to the CT, Chang did become somewhat lucid and responsive for short intervals twice. He opened his eyes both times with his present. The first time, he told his that he had "passed" and became very tearful. He then drifted back to a obtunded state. He told his that he was afraid of dying after his second interaction with her as well. Chang was unable to provide any history for me. I sat with his while he was at CT and reviewed the recent history. I discussed the plan of care with Dr. Dianna Gibbs this evening at the patient's bedside. History was also obtained in detail from the patient's nurse (Tavo Smith). Tavo knows Chang well from this admission and prior admission. She had not appreciated similar concerning changes in level of arousal. The patient returned to his room for frequent monitoring and neurochecks following his CT scan. Chang presented to the ER at [facility] for evaluation of left lower extremity pain and weakness. Past medical history is notable for urethral stricture with history of urinary retention, BPH s/p TURP, HFpEF, paroxysmal atrial fibrillation, aortic stenosis, coronary artery disease, DM, hypertension, OA/DJD, spinal stenosis with history of lumbar discectomy and decompression by Dr. Caldwell. 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 However, his told me that earlier today he told her that he would be receptive to dialysis if needed. Allergies Allergy/AdvReac Type Severity Reaction Status Date / Time ciprofloxacin [From Cipro] AdvReac Severe Unknown Verified 12/29/22 17:47 semaglutide [From Ozempic] AdvReac Severe NAUSEA/VOMI Verified 12/29/22 17:47 TING/ANOREX IA amlodipine AdvReac Intermediate SWELLING Verified 12/29/22 17:47 OF ANKLES ropinirole AdvReac Intermediate CHANGE IN Verified 12/29/22 17:47 MENTAL STATUS Home Medications Medication Instructions Recorded Confirmed Type albuterol sulfate 90 mcg/actuation 2 puffs inhalation Q6H PRN 01/10/19 12/29/22 History aerosol inhaler shortness of breath or wheezing levothyroxine 88 mcg tablet 88 mcg PO DAILYBB #90 tabs 01/10/19 12/29/22 History potassium chloride 20 mEq 20 meq PO BID 01/10/19 12/29/22 History tablet,extended release finasteride 5 mg tablet 5 mg PO HS 04/23/19 12/29/22 History losartan 25 mg tablet 25 mg PO QAM 04/23/19 12/29/22 History gabapentin 100 mg capsule See Rx Instructions .Route .COMPLEX 12/16/20 12/29/22 History aspirin 81 mg tablet,delayed 81 mg PO DAILY 10/11/21 12/29/22 History release pantoprazole 20 mg tablet,delayed 20 mg PO BID 02/07/22 12/29/22 History release insulin glargine 100 unit/mL (3 30 unit subcut BID 04/12/22 12/29/22 History mL) subcutaneous pen (Lantus Solostar U-100 Insulin) acetaminophen 500 mg tablet 1,000 mg PO Q6H PRN PAIN/FEVER 05/28/22 12/29/22 History (Tylenol Extra Strength) clonazepam 1 mg tablet 1 mg PO BID 05/28/22 12/29/22 History diphenhydramine HCl 25 mg capsule 25 mg PO BID PRN NEEDED 05/28/22 12/29/22 History (Benadryl) fluticasone 500 mcg-salmeterol 50 1 inh inhalation BID 05/28/22 12/29/22 History mcg/dose blistr powdr for inhalation metoprolol tartrate 50 mg tablet 25 mg PO BID 05/28/22 12/29/22 History multivitamin with minerals 1 tab PO DAILY 05/28/22 12/29/22 History rosuvastatin 20 mg tablet 20 mg PO HS 05/28/22 12/29/22 History tiotropium bromide 2.5 2 puff inhalation DAILY 05/28/22 12/29/22 History mcg/actuation mist for inhalation vitamins A,C,L-kzby-epabsx 2,148 1 tab PO DAILY 05/28/22 12/29/22 History mcg-113 mg-45 mg-17.4 mg tablet (PreserVision AREDS) bumetanide 2 mg tablet 2 mg PO BID 12/28/22 12/29/22 History apixaban 5 mg tablet (Eliquis) 2.5 mg PO Q12H 12/29/22 12/29/22 History bacitracin zinc 500 unit-polymyxin 1 applic topical Q12H PRN Wound 12/29/22 12/29/22 History B 10,000 unit/gram topical ointment Care calcium citrate 315 mg-vitamin D3 2 tab PO DAILY 12/29/22 12/29/22 History 5 mcg (200 unit) tablet (Calcium Citrate + D) insulin aspart U-100 100 unit/mL 15 unit subcut AC PRN NEEDED 12/29/22 12/29/22 History (3 mL) subcutaneous pen (Novolog FlexPen U-100 Insulin aspart) loratadine 10 mg tablet (Claritin) 10 mg PO DAILY PRN Congestion 12/29/22 12/29/22 History tamsulosin 0.4 mg capsule (Flomax) 0.8 mg PO HS 12/29/22 12/29/22 History Patient History Medical History (Updated 01/02/23 @ 18:23 by Je Zavaleta DO) Oejin-fr-fqubirs kidney injury AMS (altered mental status) Anemia of chronic disease Anxiety Aortic stenosis Mild per 03/06/19 stress ECHO Asthma Uses rescue inhaler a couple times per week Atrial fibrillation Follows with Dr. Maile Soares Blindness of left eye BPH (benign prostatic hyperplasia) CAD (coronary artery disease) Angioplasty ~1993, CABG x 3 2013 (GALINDO to LAD, SVG to PDA, SVG to OM) CHF (congestive heart failure) Chronic kidney disease Follows with Dr. Dixon Chronic obstructive pulmonary disease Diabetes Type 2 IDDM Foot ulcer GERD (gastroesophageal reflux disease) Herpes zoster Hiatal hernia Hyperlipidemia Hypertension Hypothyroidism Leukocytosis Macular degeneration Myocardial infarct ~1993 Peripheral neuropathy Rupture of left distal biceps tendon hx - no surgery Secondary hyperparathyroidism (of renal origin) Surgical History Fusion of spine lumbar History of appendectomy History of cardiac cath with angioplasty ~1993 ([facility]) & 2013 ([facility]) History of cataract surgery bilateral History of coronary artery bypass graft x3 vessels ([facility] 2013) with epicardial RFA of pulmonary veins and left atrial appendage ligation History of revision of total replacement of right knee joint History of tonsillectomy History of tooth extraction History of total left knee replacement History of total right knee replacement Hx of colonoscopy Previous back surgery (08/26/12) S/P cholecystectomy Family History Brother Heart disease Diabetes Sister Cancer Mother Diabetes Father Diabetes Other Hypertension Kidney disease Social History Smoking Status: Never smoker Tobacco Type: Cigarettes Second Hand Exposure: No; Do You Dip or Chew Tobacco: No; Hx Alcohol Use: No Hx Substance Use: No Preferred Language: Turkmen Communication Ability: Impaired Visual Impairment: Partially Limited Tea Leaf Reader Required: No Beliefs That Will Affect Care: None marital status: Current Living Situation: Spouse Current Living Situation Comment: lives at home with current occupational status: retired Other Information That Helps Us Care for You: No Feels Safe at Home: Yes Safety Concerns: Feels Safe At This Time Assistive Devices: Walker and Wheelchair Review of Systems Review of Systems: Unobtainable due to cognitive status Physical Exam Constitutional: + obese and + altered mental status; no acute distress Eyes: PERRL; eyes not dysmorphic and no corneal abnormality ENMT: Mouth: + dry oral mucous membranes; no oral mucosal abnormality Neck: normal visual inspection, trachea midline and + thick neck Respiratory: normal respiratory effort Auscultation: lungs clear to auscultation bilaterally Cardiovascular: Rate/Rhythm: regular rate Heart Sounds: normal S1 and normal S2 Extremities: + edema Musculoskeletal: Extremities: no cyanosis and no clubbing Skin: normal turgor; no jaundice Neurologic: Motor/Sensory: no tremor and no asterixis Psychiatric: Orientation: + not alert and + not oriented x 3 Results & Data Vital Signs (Past 12 Hours) Vital Signs Temp Pulse Pulse Pulse Resp BP Pulse Ox 01/02/23 11:21 36.6 C 70 22 127/58 L 92 01/02/23 08:00 81 01/02/23 07:42 36.9 C 79 21 144/63 H 92 01/02/23 04:28 36.7 C 82 20 150/78 H 94 O2 Del Method 01/02/23 11:21 Room Air 01/02/23 08:00 01/02/23 07:42 Room Air 01/02/23 04:28 Room Air Laboratory Results Laboratory Results - last 24 hr 01/01/23 01/01/23 01/02/23 17:05 20:45 06:00 WBC 7.32 RBC 2.97 L Hgb 9.1 L Hct 27.1 L MCV 91.2 MCH 30.6 MCHC 33.6 RDW Std Deviation 44.2 RDW Coeff of Adrian 13.2 Plt Count 241 MPV 9.3 L Sodium Potassium Chloride Carbon Dioxide Anion Gap BUN Creatinine Est Cr Clr Drug Dosing Est GFR ( Amer) Est GFR (Non-Af Amer) BUN/Creatinine Ratio Glucose POC Glucose 176 H 179 H Calcium Magnesium 01/02/23 01/02/23 01/02/23 06:00 07:51 11:18 WBC RBC Hgb Hct MCV MCH MCHC RDW Std Deviation RDW Coeff of Adrian Plt Count MPV Sodium 134 L Potassium 4.1 Chloride 104 Carbon Dioxide 22 Anion Gap 8 BUN 64 H Creatinine 3.53 H D Est Cr Clr Drug Dosing 13.8 Est GFR ( Amer) 17.0 Est GFR (Non-Af Amer) 14.7 BUN/Creatinine Ratio 18.1 Glucose 76 POC Glucose 83 118 H Calcium 8.3 L Magnesium 2.1 Diagnostic Findings Exam(s): CT ABDOMEN + PELVIS Without Contrast COMPARISON: 11/09/22 FINDINGS: There is evidence of previous midline sternotomy. Heart size is normal. There is mild atelectasis at the lung bases. Gallbladder is not visualized and likely surgically absent. There is no biliary dilatation. Unenhanced appearance of the liver, spleen, pancreas, and adrenal glands is unremarkable. There is nonspecific perinephric stranding bilaterally without hydronephrosis or radiopaque stones. There is aortoiliac atherosclerosis without aneurysm. There is no adenopathy, free fluid, or free air. There is no bowel obstruction or inflammation. Appendix is not visualized, but there are no secondary signs of acute appendicitis. Bladder wall is thickened. There is a possible TURP defect within the prostate. There is a fat-containing right inguinal hernia. Subcutaneous induration in the right lower quadrant abdominal suggests site of medication injection. Multilevel laminectomy has been performed in the lumbar spine. There is posterior hardware fixation extending from L2-L5. Hardware appears intact. There is no acute fracture or dislocation. IMPRESSION: 1. Nonspecific perinephric stranding. No hydronephrosis or radiopaque stones. 2. Bladder wall thickening which may be on the basis of chronic outlet obstruction or cystitis. 3. Correlate with urinalysis. PG Care Time/CCT Total # of Minutes Spent Total Time Spent with Patient: Total time spent is greater than 50% in coordination of care (as documented) at patient's floor/unit and/or counseling patient: Coding Level of Care Code 53425 IN/OBS CONSULT LVL 5,80M Diagnoses Acute renal failure N17.9 Acute renal failure type: unspecified UTI (urinary tract infection) N39.0 Hematuria presence: without hematuria Urinary tract infection type: site unspecified Chronic kidney disease, stage 4 (severe) N18.4 Acute kidney injury superimposed on CKD N17.9; N18.9 AMS (altered mental status) R41.82 Altered mental status type: unspecified (1) Acute renal failure Acute renal failure type: unspecified Qualified Code(s): N17.9 - Acute kidney failure, unspecified (2) UTI (urinary tract infection) Hematuria presence: without hematuria Urinary tract infection type: site unspecified Qualified Code(s): N39.0 - Urinary tract infection, site not specified (5) AMS (altered mental status) Altered mental status type: unspecified Qualified Code(s): R41.82 - Altered mental status, unspecified
--- NOTE | 2023-01-02 17:34 | CT Scan Report ---
HEAD CT NONCONTRAST CT DOSE: 625.80 mGy.cm HISTORY: unresponsive TECHNIQUE: Multiaxial CT images of the head were performed without the use of intravenous contrast. A utomated exposure control was utilized for this study. A dose lowering technique was utilized adheri ng to the principles of ALARA. Comparison: Head CT 12/29/2022. Findings: The paranasal sinuses and mastoid air cells are clear. The calvarium and skull base are int act. There is no mass, hematoma, midline shift, acute infarct. White matter hypodensity is nonspecifi c but suggestive of microvascular ischemic change. The ventricles and sulci demonstrate mild age-rela rashard involutional changes. Impression: No significant change compared to the prior study. No acute intracranial abnormality. ACT 112: Negative or not required by law. Electronically signed by: Otoniel Olivarez M.D. 01/02/2023 5:32 PM
[2023-01-02] MEDS ORDERED: GABAPENTIN 100 MG CAP PO SCH (21:00)
[2023-01-02] MEDS: ACETAMINOPHEN 500 MG TAB PO SCH (21:04)
[2023-01-02] MEDS: TAMSULOSIN HCL 0.4 MG CAP PO SCH (21:06)
[2023-01-02] MEDS: ROSUVASTATIN CALCIUM 20 MG TAB PO SCH (21:06)
[2023-01-02] MEDS: FINASTERIDE 5 MG TAB PO SCH (21:08)
[2023-01-03] MEDS: METOPROLOL TARTRATE 25 MG TAB PO SCH ×3 (00:07→21:07)
[2023-01-03] MEDS: ACETAMINOPHEN 500 MG TAB PO SCH ×3 (02:48→19:50)
[2023-01-03] MEDS: LEVOTHYROXINE SODIUM 88 MCG TABLET PO SCH (05:40)
[2023-01-03 07:08] LABS: Basophils # (auto) 0.02 K/uL (0-0.2); Basophils % (auto) 0.4 %; Eosinophils # (auto) 0.17 K/uL (0-0.50); Eosinophils % (auto) 3.1 %; Hematocrit (blood only) 25.9 % (42.0-52.0); Hemoglobin 8.7 g/dl (14.0-18.0); Immature Granulocytes # (auto) 0.03 K/uL (0.01-0.20); Immature Granulocytes % (auto) 0.5 %; Lymphocytes # (auto) 1.49 K/uL (1.2-3.4); Lymphocytes % (auto) 27.2 %; Mean Corpuscular Hemoglobin 30.9 pg (25.0-34.0); Mean Corpuscular Hgb Conc 33.6 g/dL (32.0-36.0); Mean Corpuscular Volume 91.8 fL (80.0-100.0); Mean Platelet Volume 9.1 fL (9.4-12.4); Monocytes # (auto) 0.47 K/uL (0.11-0.59); Monocytes % (auto) 8.6 %; Neutrophils % (auto) 60.2 %; Platelet Count 228 K/uL (130-400); RDW Coefficient of Variation 13.3 % (11.5-14.5); RDW Standard Deviation 44.7 fL (36.4-46.3); Red Blood Count 2.82 M/uL (4.70-6.10); White Blood Count 5.48 K/ul (4.8-10.8)
--- NOTE | 2023-01-03 07:35 | Hospitalist Progress Note ---
Date of Service January 03, 2023 Assessment & Plan (1) Left leg weakness: Plan: Altered Mental Status: Metabolic Encephalopathy - Patient catatonic this afternoon and code purple called: vitals stable and CT head normal - Episodes of delirium, could attribute to hospital related delirium vs. uncontrolled pain vs. depression - Also on Klonopin, gabapentin chronically. Episode of catatonia 01/02 afternoon - Will hold gabapentin JUDI on CKD Stage IV - creatine went from 2.3 to 4.1 in 2 days (baseline 1.8-2). Repeat Cr this morning 4.98. CK <50 - CT abdomen/pelvis without stones of nephrolithiasis or hydronephrosis - Consulted nephrology, appreciate recommendations - Concern of possible ATN and/or AIN, urine studies with granular casts and pyuria. - Renal US today unremarkable - Hold Bumex, losartan Left Leg Pain, Weakness - Pain began abruptly over 1 week ago, no known inciting event but patient was alone at time of onset and has poor recollection of that time - CT Lumbar spine on admission without acute changes - Left leg pain on 12/30/22 with more significant pain with manipulation of hip/rotation and radiates to groin raising concern of hip injury - Hip/Pelvis XR completed: no fractures/acute ana abnormalities - Had been able to participate with PT and leg pain was improved on 12/31, but since then pain is more intense and nonspecific throughout left LE. - Ortho consulted- no plans for immediate intervention but consider outpatient hip injection UTI- Resolved - UA consistent with UTI, urine culture from 12/27 growing Klebsiella that was susceptible to ceftriaxone - Urine culture from admission: final culture with no growth - Considering recent history of multiple UTIs, bacteremia- completed course of antibiotics DM2 - Home regimen; Insulin aspart 15 units with each meal in addition to his home lantus 30 units BID - SSI with correction factor of 20 and carb ratio of 7, Lantus 15 units BID - Hemoglobin a1c= 11.5 on 09/2022, repeat on admission a1c 9.5% Anxiety - Continue clonazepam Hypothyroidism - Continue levothyroxine - TSH= 1.9 on 12/01 Heart failure with preserved ejection fraction, CAD - last echo (11/10/2022) LVEF 60-65%, moderate - Does not appear to be hypervolemic - continue metoprolol, statin, aspirin, hold losartan in the setting of JUDI COPD - continue Breo, Incruse - Albuterol prn Paroxysmal A-fib - continue Eliquis and metoprolol GERD - continue pantoprazole Diet: Low K, carb consistent, heart healthy Dispo: Med Surg with tele Code: DNR/DNI VTE Prophylaxis: Eliquis (2) Acute UTI (urinary tract infection): (3) Anemia of chronic disease: (4) Chronic kidney disease, stage 4 (severe): (5) Acute kidney injury: (6) Hyperkalemia: (7) Hypothyroidism: (8) Hypertension: (9) Dyslipidemia: (10) Paroxysmal atrial fibrillation: (11) Anxiety: Admission and Anticipated Discharge Date Admission Date: December 29, 2022 Supervising Physician Co-Signing Physician Notes Attending attestation Pt seen and examined in concert with Dr. Gibbs. In agreement with the documented findings as noted in the resident documentation with any exceptions or additions as noted here. Improved responsiveness, though still tangential. AAO x 1, cannot name pr esident, date to the day, hospital [place] the town. Ongoing groin pain which is improved per patient. Much better nights sleep. On examination, S1/S2 nl RRR no MCG. CTAB. Abd NT/ND BS+ve JUDI on CKDIV - nephro consult - ongoing increase of creatinine with electrolytes as noted and decreased UOP concerning for renal failure. Trend BMP. Altered mental status - metabolic encephalopathy in the setting of UTI vs. pain induced delirium vs. exacerbation of underlying dementia vs. medication induced in the setting of JUDI on CKD - multifactorial cause - somewhat improved sleep with baseline APAP Left leg pain with weakness - OA vs. complications of spinal pathology - pain control as above, continue PT/OT. Consider consult spine surgery if symptoms change or ongoing, much more likely peripheral cause at present UTI - completed course of treatment Else see resident documentation as noted. Subjective Patient seen and examined at bedside. Patient notes that he slept better last night, was about to eat breakfast at time of encounter. Still has left leg pain, had not tried ambulating since yesterday. Has not produced urine so far today. Denies chest pain or shortness of breath. Review of Systems Review of Systems: As per above Physical Exam Constitutional: + lethargic; no acute distress Eyes: + anicteric sclerae ENMT: External ears and nose normal. Moist mucous membranes Respiratory: normal respiratory effort, lungs clear to auscultation Cardiovascular: Rate/Rhythm: regular rate and regular rhythm Systolic murmur Gastrointestinal (Abdomen): Abdomen soft, nontender and nondistended Musculoskeletal: Pain with left leg movement. Skin: no rashes, warm and dry Psychiatric: Slower rate of speech. Oriented to self Results & Data Results & Data Vital Signs (Past 12 Hours) Vital Signs Temp Pulse Pulse Resp BP Pulse Ox O2 Del Method 01/03/23 07:17 36.4 C L 63 16 136/72 96 Room Air 01/03/23 03:07 36.6 C 62 18 153/61 H 95 Room Air 01/03/23 00:59 51 L 01/02/23 23:28 36.4 C L 57 L 18 147/62 H 95 Room Air 01/02/23 19:52 36.6 C 56 L 18 131/54 L 96 Room Air Diagnostic Findings Chest X-Ray 12/29/22 16:28 XR chest 1V portable CLINICAL HISTORY: Sepsis COMPARISON STUDY: Chest CT November 09, 2022. Chest radiograph December 01, 2022. FINDINGS: Median sternotomy wires are noted. Moderate cardiomegaly is unchanged. There is no pneumothorax. No pleural effusion. Pulmonary vascular congestion persists. The appearance of the chest is unchanged. There is no consolidation to suggest pneumonia. IMPRESSION: Cardiomegaly and pulmonary vascular congestion, similar to prior exam. ACT 112: Negative or not required by law. Electronically signed by: Colin Cannon M.D. 12/29/2022 5:[address] 12/29/22 16:28 CT OF THE HEAD WITHOUT CONTRAST CLINICAL HISTORY: left leg weakness COMPARISON STUDY: MRI of the brain May 30, 2016. Head CT November 12, 2022. TECHNIQUE: Helical axial images of the head were obtained without IV contrast. Automated exposure control was utilized for the study. A dose lowering technique was utilized adhering to the principles of ALARA. FINDINGS: No acute intracranial hemorrhage, midline shift or mass effect is present. The ventricular system is unremarkable. The basal cisterns are patent. No extra-axial collections are present. There are no findings to suggest acute dural sinus thrombosis or acute territorial infarct. No significant calvarial abnormalities are present. Visualized portions of the sinuses and mastoid air cells are clear. IMPRESSION: No acute intracranial findings. No change in appearance of the brain. ACT 112: Negative or not required by law. Electronically signed by: Colin Cannon M.D. 12/29/2022 4:[address] 12/29/22 16:28 CT lumbar spine wo con CLINICAL HISTORY: Left leg weakness. Fall. COMPARISON STUDY: Abdomen pelvis CT November 09, 2022. TECHNIQUE: Axial images of the lumbar spine were obtained without IV contrast. Sagittal and coronal reconstructions were viewed. Automated exposure control was utilized for the study. A dose lowering technique was utilized adhering to the principles of ALARA. FINDINGS: For purposes of numbering on this exam, the L5-S1 disc space is assigned to axial image 359 of 452. There are postoperative findings consistent with L4-L5 discectomy and posterior decompression and bilateral pedicle screw fusion from L2 through L5. The hardware is intact. There is no acute lumbar spine fracture. Exam is mildly compromised by artifact. Postoperative appearance is similar to CT of November 09, 2022. Central canal and neural foramen are suboptimally assessed given CT technique. Paravertebral soft tissues are unremarkable. There are no suspicious osseous lesions. IMPRESSION: 1. No acute lumbar spine fracture or subluxation. 2. Status post L4-L5 discectomy and L2-L5 posterior decompression and bilateral pedicle screw fusion. Hardware intact. 3. Multilevel facet arthrosis, disc space narrowing and osteophytosis. ACT 112: Negative or not required by law. Electronically signed by: Colin Cannon M.D. 12/29/2022 5:03 PM Abdomen/Pelvis CT 12/29/22 18:12 Exam(s): CT ABDOMEN + PELVIS Without Contrast EXAM: CT Abdomen and Pelvis Without Intravenous Contrast CLINICAL HISTORY: Reason for exam: worsening renal function, eval for obst. TECHNIQUE: Axial computed tomography images of the abdomen and pelvis without intravenous contrast. CTDI is 27.23 mGy and DLP is 1274.19 mGy-cm. Automated exposure control was utilized for the study. A dose lowering technique was utilized adhering to the principles of ALARA. COMPARISON: 11/09/22 FINDINGS: There is evidence of previous midline sternotomy. Heart size is normal. There is mild atelectasis at the lung bases. Gallbladder is not visualized and likely surgically absent. There is no biliary dilatation. Unenhanced appearance of the liver, spleen, pancreas, and adrenal glands is unremarkable. There is nonspecific perinephric stranding bilaterally without hydronephrosis or radiopaque stones. There is aortoiliac atherosclerosis without aneurysm. There is no adenopathy, free fluid, or free air. There is no bowel obstruction or inflammation. Appendix is not visualized, but there are no secondary signs of acute appendicitis. Bladder wall is thickened. There is a possible TURP defect within the prostate. There is a fat-containing right inguinal hernia. Subcutaneous induration in the right lower quadrant abdominal suggests site of medication injection. Multilevel laminectomy has been performed in the lumbar spine. There is posterior hardware fixation extending from L2-L5. Hardware appears intact. There is no acute fracture or dislocation. IMPRESSION: 1. Nonspecific perinephric stranding. No hydronephrosis or radiopaque stones. 2. Bladder wall thickening which may be on the basis of chronic outlet obstruction or cystitis. 3. Correlate with urinalysis. Electronically signed by: Neftali Franks M.D. 12/29/22 20:07 PM Hip/Pelvis X-Ray 12/30/22 18:03 SINGLE VIEW PELVIS; 2 VIEWS LEFT HIP CLINICAL HISTORY: Left hip pain. FINDINGS: An AP view of the pelvis with AP and frog-leg views of the left hip are correlated with pelvic CT dated 12/29/2022. The skeletal structures are osteopenic. There is no radiographic evidence of acute fracture involving the hips or bony pelvis. Mild arthritic change and joint space narrowing is seen in the hips, left greater than right. The sacroiliac joints are normal. Fusion hardware is seen in the lower lumbar spine. The overlying soft tissues are within normal limits. Atherosclerotic calcification is noted in the femoral arteries. IMPRESSION: No acute bony abnormality is identified. Electronically signed by: Antonio Benjamin M.D. 12/30/2022 10:[address] 01/02/23 17:[address] DOSE: 625.80 mGy.cm HISTORY: unresponsive TECHNIQUE: Multiaxial CT images of the head were performed without the use of intravenous contrast. Automated exposure control was utilized for this study. A dose lowering technique was utilized adhering to the principles of ALARA. Comparison: Head CT 12/29/2022. Findings: The paranasal sinuses and mastoid air cells are clear. The calvarium and skull base are intact. There is no mass, hematoma, midline shift, acute infarct. White matter hypodensity is nonspecific but suggestive of microvascular ischemic change. The ventricles and sulci demonstrate mild age-related involutional changes. Impression: No significant change compared to the prior study. No acute intracranial abnormality. ACT 112: Negative or not required by law. Electronically signed by: Otoniel Olivarez M.D. 01/02/2023 5:32 PM Carotid Doppler Study 01/03/23 00:00 ULTRASOUND OF THE CAROTID ARTERIES CLINICAL HISTORY: Transient ischemic attack. COMPARISON STUDY: Carotid artery ultrasound dated 05/30/2016. TECHNIQUE: Real-time, grayscale, and color Doppler sonography of the carotid arteries is performed. Images are reviewed in the transverse and longitudinal planes. FINDINGS: The carotid arteries are patent bilaterally and demonstrate antegrade flow. There is atherosclerotic plaque an irregular seen bilaterally, greatest in the carotid bulbs. Normal doppler arterial waveforms are seen throughout. Velocity measurements are listed below. Common carotid peak systolic velocity (cm/sec): RIGHT: 84 LEFT: 89 ICA proximal peak systolic velocity (cm/sec): RIGHT: 178 LEFT: 230 ICA mid peak systolic velocity (cm/sec): RIGHT: 126 LEFT: 82 ICA distal peak systolic velocity (cm/sec): RIGHT: 81 LEFT: 82 ICA/CC peak systolic ratio: RIGHT: 2.1 LEFT: 2.6 Antegrade flow was shown in the vertebral arteries. The external carotid arteries are patent. IMPRESSION: 1. There is sonographic evidence of 50-69% stenosis of both proximal internal carotid arteries by velocity criteria. 2. Antegrade flow is shown in the vertebral arteries. ACT 112: Negative or not required by law. Electronically signed by: Antonio Benjamin M.D. 01/03/2023 12:00 PM Renal Ultrasound 01/03/23 08:45 US renal/blad retro comp CLINICAL HISTORY: judi TECHNIQUE: Multiple sonographic real-time images of the kidneys and bladder were obtained. COMPARISON: Comparison is made to renal ultrasound 10/29/2022 FINDINGS: The right kidney measures 10.9 cm in length, and the left kidney measures 12.7 cm in length. The right kidney is normal in size, contour, cortical thickness, and echogenicity. No hydronephrosis is identified. No renal lesion is identified. The left kidney is normal in size, contour, cortical thickness and echogenicity. No hydronephrosis is identified. No renal lesion is identified. The bladder is partially distended. Bilateral jets are seen. IMPRESSION: Unremarkable renal ultrasound. ACT 112: Negative or not required by law. Electronically signed by: Dano West M.D. 01/03/2023 11:38 AM Resident Activity Tracking Resident Involvement: Resident Care Provided Care Provided: Adult Hospital Medicine (7) Hypothyroidism Hypothyroidism type: unspecified Qualified Code(s): E03.9 - Hypothyroidism, unspecified (8) Hypertension Hypertension type: essential hypertension Qualified Code(s): I10 - Essential (primary) hypertension
[2023-01-03 07:40] LABS: Albumin Level 2.2 gm/dl (3.4-5.0); BUN Creatinine Ratio 14.5 (10-20); Calcium 8.1 mg/dl (8.6-10.3); Creatinine Clr Calc Pharmacy 9.8 ml/min; Est GFR (African American) 11.2 ml/min; Est GFR (Non-African American) 9.7 ml/min; Magnesium 2.2 mg/dl (1.7-2.4); Potassium 4.1 mmol/L (3.5-5.1)
[2023-01-03] MEDS: APIXABAN 2.5 MG TAB PO SCH ×2 (09:24→21:02)
[2023-01-03] MEDS: PANTOprazole 40 MG TAB PO SCH ×2 (09:24→21:01)
[2023-01-03] MEDS: clonazePAM 1 MG TAB PO SCH ×2 (09:24→21:00)
[2023-01-03] MEDS: ASPIRIN 81 MG ECTAB PO SCH (09:25)
[2023-01-03] MEDS: FLUTICASONE/VILANTEROL 200/25MCG 14 PUFFS/INHALER INH SCH (09:25)
[2023-01-03] MEDS: INSULIN ASPART PER UNIT CHARGE SC SCH ×4 (09:25→20:59)
[2023-01-03] MEDS: UMECLIDINIUM/VILANTEROL 62.5/25MCG 7 PUFFS/INHALER INH SCH (09:26)
[2023-01-03] MEDS: LANTUS PER UNIT CHARGE SQ SCH ×2 (09:31→20:59)
--- NOTE | 2023-01-03 09:55 | Orthopedic Progress Note ---
Date of Service January 03, 2023 Assessment & Plan (1) Left leg weakness: Plan: 87-year-old male with left leg weakness and pain secondary to deconditioning versus lumbar etiology; status post L4-L5 discectomy and L2-L5 decompression by Dr. Caldwell 2003. Patient may benefit from seeing Dr. Caldwell would recommend consult to r/o spine etiology. Patient will benefit from physical and occupational therapies using walker May consider steroid to see if this improves his pain and increases his functional tolerance. Can consider Hip injection with steroid as an outpatient Will continue to follow Please contact our office if any concerns. Present on Admission?: Yes Admission and Anticipated Discharge Date Admission Date: December 29, 2022 Supervising Physician Co-Signing Physician Notes I, Dr. Fisher, saw and examined the patient and discussed the management with my PA. I reviewed my PAs note and agree with the documented findings and the plan of care I developed. LLE: Sensation to light touch unchanged, diminished secondarily to neuropathy. BCR < 2 sec. Able to wiggle toes, plantar felex & Dorsiflex the ankle. Limited hip ROM, patient actively resisting. - log roll hip. + straight leg raise with worsening pain down leg to foot. Discussed with patient and his treatment options. They understand the risks with steroid use with his current UTI, his kidney disease, as well as his DM and would like to hold off on steroids for now. Could trial Lidoderm patches. They also understand that he is not a good candidate for surgery. Continue PT/OT WBAT with walker Recommend consult with Dr. Caldwell Ortho Spine Subjective Patient is an 87-year-old male who was seen bedside this morning. He was sitting upright eating his breakfast. He is alert and oriented x 3 pleasant and conversive. He states he continues to have pain and weakness in bilateral legs. He states the pain is primarily in the left lower leg. He states he has some pain around the knee and in the hip and into the lower leg. He states he feels the left leg is weaker than the right. He does not notice any change in his symptoms since being evaluated yesterday. He denies any fall or injury however he does state that he has a tendency to stumble when he is at home however he has never fallen. He states he does utilize a walker or an electric scooter when he is out and about. He denies any fever, chills, night sweats, nausea or vomiting, chest pain or shortness of breath. Review of Systems Review of Systems: Please refer to HPI Physical Exam Physical Exam: General: Patient is alert and oriented x 3 pleasant and conversive sitting upri ght in bed. The bed was positioned in so he was more supine Musculoskeletal: Scars over bilateral knees consistent with history of total knee arthroplasties. Negative for edema or effusion over this area. Skin is normal in color and temperature. He has mild edema of the left lower extremity that is nonpitting when compared to the right lower extremity. He has palpable tenderness over the anterior calf negative for any posterior calf pain or swelling or erythema. He is limited on the left lower extremity with range of motion when compared to the right. He has approximately 10 degrees of hip abduction, external rotation. He was able to tolerate hips flexion to approximately 85 degrees today. He does have some pain with internal rotation. Negative rocker sign bilaterally. He is able to actively dorsiflex and plantarflex bilateral ankles however left is more limited when compared to the right. Sensation was assessed over L4-L5 and S1 this is intact. He is able to do a straight leg raise on the right negative on the left. Results & Data Vital Signs (Past 12 Hours) Vital Signs Temp Pulse Pulse Resp BP Pulse Ox O2 Del Method 01/03/23 07:17 36.4 C L 63 16 136/72 96 Room Air 01/03/23 03:07 36.6 C 62 18 153/61 H 95 Room Air 01/03/23 00:59 51 L 01/02/23 23:28 36.4 C L 57 L 18 147/62 H 95 Room Air Laboratory Results 01/03/23 01/03/23 01/03/23 Range/Units 07:48 06:19 06:19 WBC 5.48 (4.8-10.8) K/ul RBC 2.82 L (4.70-6.10) M/uL Hgb 8.7 L (14.0-18.0) g/dl Hct 25.9 L (42.0-52.0) % MCV 91.8 (80.0-100.0) fL MCH 30.9 (25.0-34.0) pg MCHC 33.6 (32.0-36.0) g/dL RDW Std Deviation 44.7 (36.4-46.3) fL RDW Coeff of Adrian 13.3 (11.5-14.5) % Plt Count 228 (130-400) K/uL MPV 9.1 L (9.4-12.4) fL Immature Gran % (Auto) 0.5 % Neut % (Auto) 60.2 % Lymph % (Auto) 27.2 % Hoke % (Auto) 8.6 % Eos % (Auto) 3.1 % Baso % (Auto) 0.4 % Neut # (Auto) 3.30 (1.40-6.50) K/uL Lymph # (Auto) 1.49 (1.2-3.4) K/uL Hoke # (Auto) 0.47 (0.11-0.59) K/uL Eos # (Auto) 0.17 (0-0.50) K/uL Baso # (Auto) 0.02 (0-0.2) K/uL Immature Gran # (Auto) 0.03 (0.01-0.20) K/uL Sodium 134 L (136-145) mmol/L Potassium 4.1 (3.5-5.1) mmol/L Chloride 103 (98-107) mmol/L Carbon Dioxide 22 (21-32) mmol/L Anion Gap 9 (3-11) BUN 72 H (6-23) mg/dl Creatinine 4.98 H* D (0.6-1.4) mg/dl Est Cr Clr Drug Dosing 9.8 ml/min Est GFR ( Amer) 11.2 ml/min Est GFR (Non-Af Amer) 9.7 ml/min BUN/Creatinine Ratio 14.5 (10-20) Glucose 88 (70-99(Fasting)) mg/dl POC Glucose 96 (70-99) mg/dl Calcium 8.1 L (8.6-10.3) mg/dl Phosphorus 7.0 H (2.5-4.9) mg/dl Magnesium 2.2 (1.7-2.4) mg/dl Total Creatine Kinase 33 (30-223) U/L Albumin 2.2 L (3.4-5.0) gm/dl 01/02/23 01/02/23 01/02/23 Range/Units 20:24 16:55 11:18 WBC (4.8-10.8) K/ul RBC (4.70-6.10) M/uL Hgb (14.0-18.0) g/dl Hct (42.0-52.0) % MCV (80.0-100.0) fL MCH (25.0-34.0) pg MCHC (32.0-36.0) g/dL RDW Std Deviation (36.4-46.3) fL RDW Coeff of Adrian (11.5-14.5) % Plt Count (130-400) K/uL MPV (9.4-12.4) fL Immature Gran % (Auto) % Neut % (Auto) % Lymph % (Auto) % Hoke % (Auto) % Eos % (Auto) % Baso % (Auto) % Neut # (Auto) (1.40-6.50) K/uL Lymph # (Auto) (1.2-3.4) K/uL Hoke # (Auto) (0.11-0.59) K/uL Eos # (Auto) (0-0.50) K/uL Baso # (Auto) (0-0.2) K/uL Immature Gran # (Auto) (0.01-0.20) K/uL Sodium (136-145) mmol/L Potassium (3.5-5.1) mmol/L Chloride (98-107) mmol/L Carbon Dioxide (21-32) mmol/L Anion Gap (3-11) BUN (6-23) mg/dl Creatinine (0.6-1.4) mg/dl Est Cr Clr Drug Dosing ml/min Est GFR ( Amer) ml/min Est GFR (Non-Af Amer) ml/min BUN/Creatinine Ratio (10-20) Glucose (70-99(Fasting)) mg/dl POC Glucose 162 H 130 H 118 H (70-99) mg/dl Calcium (8.6-10.3) mg/dl Phosphorus (2.5-4.9) mg/dl Magnesium (1.7-2.4) mg/dl Total Creatine Kinase (30-223) U/L Albumin (3.4-5.0) gm/dl Diagnostic Findings Head CT 01/02/23 17:[address] DOSE: 625.80 mGy.cm HISTORY: unresponsive TECHNIQUE: Multiaxial CT images of the head were performed without the use of intravenous contrast. Automated exposure control was utilized for this study. A dose lowering technique was utilized adhering to the principles of ALARA. Comparison: Head CT 12/29/2022. Findings: The paranasal sinuses and mastoid air cells are clear. The calvarium and skull base are intact. There is no mass, hematoma, midline shift, acute infarct. White matter hypodensity is nonspecific but suggestive of microvascular ischemic change. The ventricles and sulci demonstrate mild age-related involutional changes. Impression: No significant change compared to the prior study. No acute intracranial abnormality. ACT 112: Negative or not required by law. Electronically signed by: Otoniel Olivarez M.D. 01/02/2023 5:32 PM
--- NOTE | 2023-01-03 11:40 | Ultrasound Report ---
US renal/blad retro comp CLINICAL HISTORY: sunshine TECHNIQUE: Multiple sonographic real-time images of the kidneys and bladder were obtained. COMPARISON: Comparison is made to renal ultrasound 10/29/2022 FINDINGS: The right kidney measures 10.9 cm in length, and the left kidney measures 12.7 cm in length. The right kidney is normal in size, contour, cortical thickness, and echogenicity. No hydronephrosis is identified. No renal lesion is identified. The left kidney is normal in size, contour, cortical thickness and echogenicity. No hydronephrosis i s identified. No renal lesion is identified. The bladder is partially distended. Bilateral jets are seen. IMPRESSION: Unremarkable renal ultrasound. ACT 112: Negative or not required by law. Electronically signed by: Dano West M.D. 01/03/2023 11:38 AM
--- NOTE | 2023-01-03 11:57 | Electrocardiogram Report ---
Test Reason : Blood Pressure : / mmHG Vent. Rate : 067 BPM Atrial Rate : 067 BPM P-R Int : 218 ms QRS Dur : 168 ms QT Int : 446 ms P-R-T Axes : 120 -33 007 degrees QTc Int : 471 ms Unusual P axis, possible ectopic atrial rhythm with Premature supraventricular complexes Left axis deviation Right bundle branch block Minimal voltage criteria for LVH, may be normal variant Abnormal ECG When compared with ECG of 29-DEC-2022 16:54, Ectopic atrial rhythm has replaced Sinus rhythm Confirmed by Travis Holloway ([id number]) on 01/03/2023 11:57:30 AM Referred By: REFERRED SELF Confirmed By:Asim Holloway
--- NOTE | 2023-01-03 12:02 | Ultrasound Report ---
ULTRASOUND OF THE CAROTID ARTERIES CLINICAL HISTORY: Transient ischemic attack. COMPARISON STUDY: Carotid artery ultrasound dated 05/30/2016. TECHNIQUE: Real-time, grayscale, and color Doppler sonography of the carotid arteries is performed. I mages are reviewed in the transverse and longitudinal planes. FINDINGS: The carotid arteries are patent bilaterally and demonstrate antegrade flow. There is atherosclerotic plaque an irregular seen bilaterally, greatest in the carotid bulbs. Normal doppler arterial wavefor ms are seen throughout. Velocity measurements are listed below. Common carotid peak systolic velocity (cm/sec): RIGHT: 84 LEFT: 89 ICA proximal peak systolic velocity (cm/sec): RIGHT: 178 LEFT: 230 ICA mid peak systolic velocity (cm/sec): RIGHT: 126 LEFT: 82 ICA distal peak systolic velocity (cm/sec): RIGHT: 81 LEFT: 82 ICA/CC peak systolic ratio: RIGHT: 2.1 LEFT: 2.6 Antegrade flow was shown in the vertebral arteries. The external carotid arteries are patent. IMPRESSION: 1. There is sonographic evidence of 50-69% stenosis of both proximal internal carotid arteries by barbra ocity criteria. 2. Antegrade flow is shown in the vertebral arteries. ACT 112: Negative or not required by law. Electronically signed by: Antonio Benjamin M.D. 01/03/2023 12:00 PM
[2023-01-03 14:53] LABS: Appearance Urine Cloudy (Clear); Bacteria Urine Automated Negative (Negative); Bilirubin Urine Negative (Negative); Blood Urine Negative (Negative); Color Urine Dark Yellow; Epithelial Cell Urine Auto >30 /lpf (0-5); Glucose Urine UA Negative (Negative); Ketones Urine Trace (Negative); Leukocyte Esterase Urine Negative (Negative); Nitrite Urine Negative (Negative); Protein Urine 4+ (Negative); RBC Urine Automated 0-4 /hpf (0-4); Specific Gravity Urine 1.025 (1.000-1.030); Urobilinogen Urine Negative (Negative)
--- NOTE | 2023-01-03 16:11 | Nephrology Progress Note ---
Date of Service January 03, 2023 Assessment & Plan (1) Acute renal failure: Plan: Oliguric. Notable rise in serum creatinine. Etiology unclear. No hydronephrosis on renal US. Bladder scan for ~240 ml this afternoon. Catheter placement deferred for now pending monitoring. Chang required cath placement by urology during prior admission for false lumen. Current presentation atypical for obstruction. CK <50. Concern remains for possible AIN associated with cephalosporins. Antibiotic therapy has been held. Urine studies demonstrating granular casts and persistent pyuria. This is supportive of ATN and possible AIN. Electrolytes normal. Volume status acceptable. There is no emergent indication for dialysis. Chang and his have both stated that they would want dialysis if kidney dysfunction progresses. Document strict I/O's. Repeat a metabolic profile tomorrow AM. Medications are appropriately dosed for kidney function. Gabapentin held. Rosuvastatin dose reduced for kidney dysfunction. (2) UTI (urinary tract infection): Plan: Completed treatment. Culture negative on admission s/p 2 doses of Bactrim. (3) Chronic kidney disease, stage 4 (severe): Plan: Creatinine ~1.5 mg/dL at baseline. Followed by Dr. Dixon as outpatient. 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 (4) Acute kidney injury superimposed on CKD: (5) AMS (altered mental status): Plan: Resolved. Etiology unclear. Carotid duplex demonstrating 60-70% stenosis of proximal and internal carotid arteries. Admission and Anticipated Discharge Date Admission Date: December 29, 2022 Subjective No acute events overnight. Chang was seen and evaluated in his hospital room earlier this afternoon. He was eating lunch with his [id number] at the bedside. Chang became emotional while were talking. He did tell me that he would go back on dialysis if needed. At this time, he feels well overall. He continues to struggle with some pain in his leg but it was not a significant concern. He recognized that he had not voided in ~24 hours. He denied any urge to void. He denies significant fluid retention or edema. He is breathing comfortably. Appetite is good. I also met with Chang's this morning. Review of Systems Review of Systems: All systems reviewed & are unremarkable except as noted in HPI & below Physical Exam Constitutional: well developed; no acute distress Eyes: no scleral abnormality and no corneal abnormality ENMT: Mouth: no oral mucosal abnormality and oral mucous membranes not dry Neck: normal visual inspection, trachea midline and + thick neck Respiratory: normal respiratory effort Auscultation: lungs clear to auscultation bilaterally Cardiovascular: Rate/Rhythm: regular rate Heart Sounds: normal S1 and normal S2 Extremities: + edema Musculoskeletal: Extremities: no cyanosis and no clubbing Skin: normal turgor; no jaundice Neurologic: Motor/Sensory: no tremor and no asterixis Psychiatric: Orientation: alert and oriented x 3 Results & Data Vital Signs (Past 12 Hours) Vital Signs Temp Pulse Pulse Resp BP Pulse Ox O2 Del Method 01/03/23 14:59 36.4 C L 63 16 128/69 95 Room Air 01/03/23 11:10 36.4 C L 77 18 150/68 H 97 Room Air 01/03/23 08:00 56 L 01/03/23 07:17 36.4 C L 63 16 136/72 96 Room Air Laboratory Results Laboratory Results - last 24 hr 01/02/23 01/02/23 01/03/23 16:55 20:24 06:19 WBC 5.48 RBC 2.82 L Hgb 8.7 L Hct 25.9 L MCV 91.8 MCH 30.9 MCHC 33.6 RDW Std Deviation 44.7 RDW Coeff of Adrian 13.3 Plt Count 228 MPV 9.1 L Immature Gran % (Auto) 0.5 Neut % (Auto) 60.2 Lymph % (Auto) 27.2 [place] % (Auto) 8.6 Eos % (Auto) 3.1 Baso % (Auto) 0.4 Neut # (Auto) 3.30 Lymph # (Auto) 1.49 [place] # (Auto) 0.47 Eos # (Auto) 0.17 Baso # (Auto) 0.02 Immature Gran # (Auto) 0.03 Sodium Potassium Chloride Carbon Dioxide Anion Gap BUN Creatinine Est Cr Clr Drug Dosing Est GFR ( Amer) Est GFR (Non-Af Amer) BUN/Creatinine Ratio Glucose POC Glucose 130 H 162 H Calcium Phosphorus Magnesium Total Creatine Kinase Albumin Urine Color Urine Appearance Urine pH Ur Specific [place] Urine Protein Urine Glucose (UA) Urine Ketones Urine Blood Urine Nitrite Urine Bilirubin Urine Urobilinogen Ur Leukocyte Esterase Urine WBC (Auto) Urine RBC (Auto) U Hyaline Cast (Auto) U Epithel Cells (Auto) Urine Bacteria (Auto) Ur Renal Epithelial Cell Granular Casts 01/03/23 01/03/23 01/03/23 06:19 07:48 12:06 WBC RBC Hgb Hct MCV MCH MCHC RDW Std Deviation RDW Coeff of Adrian Plt Count MPV Immature Gran % (Auto) Neut % (Auto) Lymph % (Auto) [place] % (Auto) Eos % (Auto) Baso % (Auto) Neut # (Auto) Lymph # (Auto) [place] # (Auto) Eos # (Auto) Baso # (Auto) Immature Gran # (Auto) Sodium 134 L Potassium 4.1 Chloride 103 Carbon Dioxide 22 Anion Gap 9 BUN 72 H Creatinine 4.98 H* D Est Cr Clr Drug Dosing 9.8 Est GFR ( Amer) 11.2 Est GFR (Non-Af Amer) 9.7 BUN/Creatinine Ratio 14.5 Glucose 88 POC Glucose 96 145 H Calcium 8.1 L Phosphorus 7.0 H Magnesium 2.2 Total Creatine Kinase 33 Albumin 2.2 L Urine Color Urine Appearance Urine pH Ur Specific [place] Urine Protein Urine Glucose (UA) Urine Ketones Urine Blood Urine Nitrite Urine Bilirubin Urine Urobilinogen Ur Leukocyte Esterase Urine WBC (Auto) Urine RBC (Auto) U Hyaline Cast (Auto) U Epithel Cells (Auto) Urine Bacteria (Auto) Ur Renal Epithelial Cell Granular Casts 01/03/23 Unknown WBC RBC Hgb Hct MCV MCH MCHC RDW Std Deviation RDW Coeff of Adrian Plt Count MPV Immature Gran % (Auto) Neut % (Auto) Lymph % (Auto) [place] % (Auto) Eos % (Auto) Baso % (Auto) Neut # (Auto) Lymph # (Auto) [place] # (Auto) Eos # (Auto) Baso # (Auto) Immature Gran # (Auto) Sodium Potassium Chloride Carbon Dioxide Anion Gap BUN Creatinine Est Cr Clr Drug Dosing Est GFR ( Amer) Est GFR (Non-Af Amer) BUN/Creatinine Ratio Glucose POC Glucose Calcium Phosphorus Magnesium Total Creatine Kinase Albumin Urine Color Dark Yellow Urine Appearance Cloudy A Urine pH 5.0 Ur Specific [place] 1.025 Urine Protein 4+ H Urine Glucose (UA) Negative Urine Ketones Trace H Urine Blood Negative Urine Nitrite Negative Urine Bilirubin Negative Urine Urobilinogen Negative Ur Leukocyte Esterase Negative Urine WBC (Auto) 10-30 H Urine RBC (Auto) 0-4 U Hyaline Cast (Auto) 10-30 H U Epithel Cells (Auto) >30 H Urine Bacteria (Auto) Negative Ur Renal Epithelial Cell Not Reportable Granular Casts 1-5 H Diagnostic Findings US renal/bladder FINDINGS: The right kidney measures 10.9 cm in length, and the left kidney measures 12.7 cm in length. The right kidney is normal in size, contour, cortical thickness, and e chogenicity. No hydronephrosis is identified. No renal lesion is identified. The left kidney is normal in size, contour, cortical thickness and echogenicity. No hydronephrosis is identified. No renal lesion is identified. The bladder is partially distended. Bilateral jets are seen. IMPRESSION: Unremarkable renal ultrasound. PG Care Time/CCT Total # of Minutes Spent Total Time Spent with Patient: Total time spent is greater than 50% in coordination of care (as documented) at patient's floor/unit and/or counseling patient: Coding Level of Care Code 45910 SUB INP/OBS CARE 3/50MIN Diagnoses Acute renal failure N17.9 Acute renal failure type: unspecified UTI (urinary tract infection) N39.0 Hematuria presence: without hematuria Urinary tract infection type: site unspecified Chronic kidney disease, stage 4 (severe) N18.4 Acute kidney injury superimposed on CKD N17.9; N18.9 AMS (altered mental status) R41.82 Altered mental status type: unspecified (1) Acute renal failure Acute renal failure type: unspecified Qualified Code(s): N17.9 - Acute kidney failure, unspecified (2) UTI (urinary tract infection) Hematuria presence: without hematuria Urinary tract infection type: site unspecified Qualified Code(s): N39.0 - Urinary tract infection, site not specified (5) AMS (altered mental status) Altered mental status type: unspecified Qualified Code(s): R41.82 - Altered mental status, unspecified
[2023-01-03] MEDS: FINASTERIDE 5 MG TAB PO SCH (21:01)
[2023-01-03] MEDS: TAMSULOSIN HCL 0.4 MG CAP PO SCH (21:01)
[2023-01-03] MEDS: ROSUVASTATIN CALCIUM 5 MG TAB PO SCH (21:02)
[2023-01-04] MEDS: ACETAMINOPHEN 500 MG TAB PO SCH ×3 (01:59→17:51)
[2023-01-04] MEDS: LEVOTHYROXINE SODIUM 88 MCG TABLET PO SCH (05:31)
[2023-01-04 06:35] LABS: Basophils # (auto) 0.02 K/uL (0-0.2); Basophils % (auto) 0.3 %; Eosinophils # (auto) 0.15 K/uL (0-0.50); Eosinophils % (auto) 2.2 %; Hematocrit (blood only) 25.9 % (42.0-52.0); Hemoglobin 8.9 g/dl (14.0-18.0); Immature Granulocytes # (auto) 0.05 K/uL (0.01-0.20); Immature Granulocytes % (auto) 0.7 %; Lymphocytes # (auto) 1.52 K/uL (1.2-3.4); Lymphocytes % (auto) 22.5 %; Mean Corpuscular Hgb Conc 34.4 g/dL (32.0-36.0); Mean Corpuscular Volume 90.2 fL (80.0-100.0); Mean Platelet Volume 9.1 fL (9.4-12.4); Monocytes # (auto) 0.58 K/uL (0.11-0.59); Monocytes % (auto) 8.6 %; Neutrophils # (auto) 4.44 K/uL (1.40-6.50); Neutrophils % (auto) 65.7 %; Platelet Count 246 K/uL (130-400); RDW Coefficient of Variation 13.1 % (11.5-14.5); RDW Standard Deviation 43.5 fL (36.4-46.3); Red Blood Count 2.87 M/uL (4.70-6.10); White Blood Count 6.76 K/ul (4.8-10.8)
[2023-01-04 06:57] LABS: Albumin Level 2.2 gm/dl (3.4-5.0); BUN Creatinine Ratio 14.5 (10-20); Creatinine Clr Calc Pharmacy 9.4 ml/min; Est GFR (African American) 10.7 ml/min; Est GFR (Non-African American) 9.2 ml/min; Phosphorus 7.3 mg/dl (2.5-4.9)
--- NOTE | 2023-01-04 07:45 | Hospitalist Progress Note ---
Date of Service January 04, 2023 Assessment & Plan (1) Left leg weakness: Plan: Altered Mental Status: Metabolic Encephalopathy - Patient catatonic on 01/02 p.m. code purple called: vitals stable and CT head normal - Episodes of delirium, could attribute to hospital related delirium vs. uncontrolled pain vs. depression - Also on Klonopin, gabapentin chronically. Episode of catatonia 01/02 afternoon - Will hold futher gabapentin JUDI on CKD Stage IV - creatine went from 2.3 to 4.1 in 2 days (baseline 1.8-2). Repeat Cr today 5.4. - CT abdomen/pelvis without stones of nephrolithiasis or hydronephrosis - Consulted nephrology, appreciate recommendations - Concern of possible ATN and/or AIN, urine studies with granular casts and pyuria. - Nephro ordered Plasmalyte, strict I's & O's. Hyperphosphatemia noted. No emergent indication for dialysis at this time. - Producing minimal quantities of urine - Holding Bumex, losartan, statin renally dosed Left Leg Pain, Weakness - Pain began abruptly over 1 week ago, no known inciting event but patient was alone at time of onset and has poor recollection of that time - CT Lumbar spine on admission without acute changes - Left leg pain on 12/30/22 with more significant pain with manipulation of hip/rotation and radiates to groin raising concern of hip injury - Hip/Pelvis XR completed: no fractures/acute ana abnormalities - Had been able to participate with PT and leg pain was improved on 12/31, but since then pain is more intense and nonspecific throughout left LE. - Ortho consulted- no plans for immediate intervention but consider outpatient hip injection -Scheduled Tylenol, will add Morphine 2mg q4h PRN UTI- Resolved - UA consistent with UTI, urine culture from 12/27 growing Klebsiella that was susceptible to ceftriaxone - Urine culture from admission: final culture with no growth - Considering recent history of multiple UTIs, bacteremia- completed course of antibiotics DM2 - Home regimen; Insulin aspart 15 units with each meal in addition to his home lantus 30 units BID - SSI with correction factor of 20 and carb ratio of 7, Lantus 15 units BID - Hemoglobin a1c= 11.5 on 09/2022, repeat on admission a1c 9.5% Anxiety - Continue clonazepam Hypothyroidism - Continue levothyroxine - TSH= 1.9 on 12/01 Heart failure with preserved ejection fraction, CAD - last echo (11/10/2022) LVEF 60-65%, moderate - Does not appear to be hypervolemic - continue metoprolol, statin, aspirin, hold losartan in the setting of JUDI COPD - continue Breo, Incruse - Albuterol prn Paroxysmal A-fib - continue Eliquis and metoprolol GERD - continue pantoprazole Diet: Low K, carb consistent, heart healthy Dispo: Med Surg with tele Code: DNR/DNI VTE Prophylaxis: Eliquis (2) Acute UTI (urinary tract infection): (3) Anemia of chronic disease: (4) Chronic kidney disease, stage 4 (severe): (5) Acute kidney injury: (6) Hyperkalemia: (7) Hypothyroidism: (8) Hypertension: (9) Dyslipidemia: (10) Paroxysmal atrial fibrillation: (11) Anxiety: Admission and Anticipated Discharge Date Admission Date: December 29, 2022 Supervising Physician Co-Signing Physician Notes Attending attestation Pt seen and examined in concert with Dr. Gibbs. In agreement with the documented findings as noted in the resident documentation with any exceptions or additions as noted here. Resting in bed, still disoriented and tangential but without significant complaint. On examination, S1/S2 nl RRR no MCG. CTAB. Abd NT/ND BS+ve JUDI on CKDIV - nephro consult - continued increase in creatinine with electrolytes stably improved with some increased UOP with fluid bolus but still decreased. Trend BMP. Altered mental status - metabolic encephalopathy in the setting of UTI vs. pain induced delirium vs. exacerbation of underlying dementia vs. medication induced in the setting of JUDI on CKD - multifactorial cause Left leg pain with weakness - OA vs. complications of spinal pathology - pain control as above, add morphine 2mg q4h PRN for breakthrough if needed, continue PT/OT where able. Consider consult spine surgery if symptoms change or ongoing, much more likely peripheral cause at present UTI - completed course of treatment Else see resident documentation as noted. Subjective Patient seen and examined at bedside. No acute events overnight. He was seated upright in a chair beside his bed. He has not been urinating or feeling the need to urinate. He states that he knows he may need dialysis and he states he is ok with this for a "short time". He continues to have left leg pain, notes a small amount of improvement with scheduled Tylenol. Review of Systems Review of Systems: As per above Physical Exam Constitutional: + lethargic; no acute distress Eyes: + anicteric sclerae ENMT: External ears and nose normal, moist mucous membranes. Respiratory: normal respiratory effort, lungs clear to auscultation Cardiovascular: Rate/Rhythm: regular rate and regular rhythm Systolic murmur Gastrointestinal (Abdomen): Abdomen soft, nontender. Musculoskeletal: Limited movement of left lower extremity. Skin: no rashes, warm and dry Psychiatric: A+Ox3, euthymic affect Results & Data Results & Data Vital Signs (Past 12 Hours) Vital Signs Temp Pulse Pulse Resp BP BP Pulse Ox 01/04/23 07:21 36.7 C 68 18 152/70 H 94 01/04/23 04:07 36.7 C 64 20 169/77 H 95 01/03/23 22:00 66 01/03/23 23:34 36.7 C 63 20 142/76 H 95 01/03/23 21:06 65 146/67 H 01/03/23 20:38 36.5 C 61 20 162/71 H 96 O2 Del Method 01/04/23 07:21 Room Air 01/04/23 04:07 Room Air 01/03/23 22:00 01/03/23 23:34 Room Air 01/03/23 21:06 01/03/23 20:38 Room Air Resident Activity Tracking Resident Involvement: Resident Care Provided Care Provided: Adult Hospital Medicine (7) Hypothyroidism Hypothyroidism type: unspecified Qualified Code(s): E03.9 - Hypothyroidism, unspecified (8) Hypertension Hypertension type: essential hypertension Qualified Code(s): I10 - Essential (primary) hypertension
[2023-01-04] MEDS: APIXABAN 2.5 MG TAB PO SCH ×2 (08:39→22:37)
[2023-01-04] MEDS: ASPIRIN 81 MG ECTAB PO SCH (08:39)
[2023-01-04] MEDS: METOPROLOL TARTRATE 25 MG TAB PO SCH ×2 (08:41→22:37)
[2023-01-04] MEDS: PANTOprazole 40 MG TAB PO SCH ×2 (08:42→22:38)
[2023-01-04] MEDS: FLUTICASONE/VILANTEROL 200/25MCG 14 PUFFS/INHALER INH SCH (08:45)
[2023-01-04] MEDS: UMECLIDINIUM/VILANTEROL 62.5/25MCG 7 PUFFS/INHALER INH SCH (08:46)
[2023-01-04] MEDS: INSULIN ASPART PER UNIT CHARGE SC SCH ×4 (09:03→21:42)
[2023-01-04] MEDS: LANTUS PER UNIT CHARGE SQ SCH ×2 (09:05→22:34)
[2023-01-04] MEDS: clonazePAM 1 MG TAB PO SCH ×2 (09:05→22:35)
[2023-01-04] MEDS ORDERED: PLASMA-LYTE A 250 ML IV ONE (10:12)
[2023-01-04] MEDS ORDERED: EPOETIN ALFA 10,000 UNITS/ML VIAL SQ ONE (10:15)
[2023-01-04] MEDS ORDERED: IRON SUCROSE 200 MG in 0.9 % SODIUM CHLORIDE 100 ML IV ONE (10:15)
--- NOTE | 2023-01-04 10:16 | Nephrology Progress Note ---
Date of Service January 04, 2023 Assessment & Plan (1) Acute renal failure: Plan: Remains relatively oliguric but some increase in urine output appreciated. Creatinine unfortunately continues to rise. no obvious obstruction. Bladder scan for PVR will be updated this AM. I would suggest Lopez placement if Chang continues to retain >200 ml. No hydronephrosis on renal US. Clinical presentation is atypical for obstruction. I am concerned that Chang could have developed AIN from cephalosporin use. Onset was sudden but he did have a similar presentation in the past. Avoid any further cephalosporins at this time. Due to age and medical comorbidities, I would defer biopsy. No peripheral eosinophilia. Hold steroids for now but I would offer a trial if kidney function does not start to show more improvement in next 24 hours. Volume status and BP are acceptable. Electrolytes remain normal (except for some noted hyperphosphatemia). No emergent indication for dialysis at this time. Urine studies demonstrating hyaline and granular casts and persistent pyuria. This is supportive of prerenal physiology, ATN, and possible AIN. A small fluid bolus of 250 ml plasma-lyte will be provided to help stimulate urine output. Document strict I/O's. A metabolic profile has been ordered for this afternoon. Medications are appropriately dosed for kidney function. Gabapentin held. Rosuvastatin dose reduced for kidney dysfunction. (2) UTI (urinary tract infection): Plan: Completed treatment. Culture negative on admission s/p 2 doses of Bactrim. Avoid cephalosporins. (3) Chronic kidney disease, stage 4 (severe): Plan: Creatinine ~1.5 mg/dL at baseline. Followed by Dr. Dixon as outpatient. 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 Potential indications for dialysis reviewed with Chang this AM. (4) Acute kidney injury superimposed on CKD: (5) AMS (altered mental status): Plan: Resolved. Etiology unclear. Carotid duplex demonstrating 60-70% stenosis of proximal and internal carotid arteries. (6) Anemia of chronic disease: Plan: H/H stable. Tsat 17%. Venofer 200 mg IV and Epogen 60532 units SQ to be provided today. Admission and Anticipated Discharge Date Admission Date: December 29, 2022 Subjective No acute events overnight. Aj denies any acute complaints this AM. He reports continued pain in the right hip. He also reports intermittent pain radiating into the right foot. He denies any specific provoking factor or trigger to the pain. He was laying reasonably flat in bed and relatively comfortable this AM. He ate all his breakfast and reports good appetite. He denies any urge to void. He did have a wet bowl movement in bed this AM. He does not report any abdominal discomfort. He is breathing comfortably. Chang stated that he is receptive to dialysis if kidney function does not recover. No fevers. No skin rash. Review of Systems Review of Systems: All systems reviewed & are unremarkable except as noted in HPI & below Physical Exam Constitutional: well developed and + frail appearing; no acute distress Eyes: no scleral abnormality and no corneal abnormality ENMT: Mouth: + dry oral mucous membranes; no oral mucosal abnormality Neck: normal visual inspection, trachea midline and + thick neck Respiratory: normal respiratory effort Auscultation: lungs clear to auscultation bilaterally Cardiovascular: Rate/Rhythm: regular rate Heart Sounds: normal S1 and normal S2 Extremities: + edema Musculoskeletal: Extremities: no cyanosis and no clubbing Skin: normal turgor; no jaundice Neurologic: Motor/Sensory: no tremor and no asterixis Psychiatric: Orientation: alert and oriented x 3 Results & Data Vital Signs (Past 12 Hours) Vital Signs Temp Pulse Pulse Resp BP Pulse Ox O2 Del Method 01/04/23 07:30 97 H 01/04/23 07:21 36.7 C 68 18 152/70 H 94 Room Air 01/04/23 04:07 36.7 C 64 20 169/77 H 95 Room Air 01/03/23 23:34 36.7 C 63 20 142/76 H 95 Room Air Laboratory Results Laboratory Results - last 24 hr 01/03/23 01/03/23 01/03/23 12:06 17:09 20:55 WBC RBC Hgb Hct MCV MCH MCHC RDW Std Deviation RDW Coeff of Adrian Plt Count MPV Immature Gran % (Auto) Neut % (Auto) Lymph % (Auto) [place] % (Auto) Eos % (Auto) Baso % (Auto) Neut # (Auto) Lymph # (Auto) [place] # (Auto) Eos # (Auto) Baso # (Auto) Immature Gran # (Auto) Sodium Potassium Chloride Carbon Dioxide Anion Gap BUN Creatinine Est Cr Clr Drug Dosing Est GFR ( Amer) Est GFR (Non-Af Amer) BUN/Creatinine Ratio Glucose POC Glucose 145 H 139 H 108 H Calcium Phosphorus Iron TIBC Unsaturated IBC Transferrin % Sat Ferritin Albumin Urine Color Urine Appearance Urine pH Ur Specific [place] Urine Protein Urine Glucose (UA) Urine Ketones Urine Blood Urine Nitrite Urine Bilirubin Urine Urobilinogen Ur Leukocyte Esterase Urine WBC (Auto) Urine RBC (Auto) U Hyaline Cast (Auto) U Epithel Cells (Auto) Urine Bacteria (Auto) Ur Renal Epithelial Cell Granular Casts 01/03/23 01/04/23 01/04/23 Unknown 05:44 05:44 WBC 6.76 RBC 2.87 L Hgb 8.9 L Hct 25.9 L MCV 90.2 MCH 31.0 MCHC 34.4 RDW Std Deviation 43.5 RDW Coeff of Adrian 13.1 Plt Count 246 MPV 9.1 L Immature Gran % (Auto) 0.7 Neut % (Auto) 65.7 Lymph % (Auto) 22.5 [place] % (Auto) 8.6 Eos % (Auto) 2.2 Baso % (Auto) 0.3 Neut # (Auto) 4.44 Lymph # (Auto) 1.52 [place] # (Auto) 0.58 Eos # (Auto) 0.15 Baso # (Auto) 0.02 Immature Gran # (Auto) 0.05 Sodium 131 L Potassium 4.0 Chloride 100 Carbon Dioxide 21 Anion Gap 10 BUN 75 H Creatinine 5.18 H* Est Cr Clr Drug Dosing 9.4 Est GFR ( Amer) 10.7 Est GFR (Non-Af Amer) 9.2 BUN/Creatinine Ratio 14.5 Glucose 95 POC Glucose Calcium 8.0 L Phosphorus 7.3 H Iron 23 L TIBC 132 L Unsaturated IBC 109 L Transferrin % Sat 17 L Ferritin 181.0 Albumin 2.2 L Urine Color Dark Yellow Urine Appearance Cloudy A Urine pH 5.0 Ur Specific [place] 1.025 Urine Protein 4+ H Urine Glucose (UA) Negative Urine Ketones Trace H Urine Blood Negative Urine Nitrite Negative Urine Bilirubin Negative Urine Urobilinogen Negative Ur Leukocyte Esterase Negative Urine WBC (Auto) 10-30 H Urine RBC (Auto) 0-4 U Hyaline Cast (Auto) 10-30 H U Epithel Cells (Auto) >30 H Urine Bacteria (Auto) Negative Ur Renal Epithelial Cell Not Reportable Granular Casts 1-5 H 01/04/23 07:37 WBC RBC Hgb Hct MCV MCH MCHC RDW Std Deviation RDW Coeff of [place] Plt Count MPV Immature Gran % (Auto) Neut % (Auto) Lymph % (Auto) [place] % (Auto) Eos % (Auto) Baso % (Auto) Neut # (Auto) Lymph # (Auto) [place] # (Auto) Eos # (Auto) Baso # (Auto) Immature Gran # (Auto) Sodium Potassium Chloride Carbon Dioxide Anion Gap BUN Creatinine Est Cr Clr Drug Dosing Est GFR ( Amer) Est GFR (Non-Af Amer) BUN/Creatinine Ratio Glucose POC Glucose 103 H Calcium Phosphorus Iron TIBC Unsaturated IBC Transferrin % Sat Ferritin Albumin Urine Color Urine Appearance Urine pH Ur Specific [place] Urine Protein Urine Glucose (UA) Urine Ketones Urine Blood Urine Nitrite Urine Bilirubin Urine Urobilinogen Ur Leukocyte Esterase Urine WBC (Auto) Urine RBC (Auto) U Hyaline Cast (Auto) U Epithel Cells (Auto) Urine Bacteria (Auto) Ur Renal Epithelial Cell Granular Casts PG Care Time/CCT Total # of Minutes Spent Total Time Spent with Patient: Total time spent is greater than 50% in coordination of care (as documented) at patient's floor/unit and/or counseling patient: Coding Level of Care Code 37555 SUB INP/OBS CARE 3/50MIN Diagnoses Acute renal failure N17.9 Acute renal failure type: unspecified UTI (urinary tract infection) N39.0 Hematuria presence: without hematuria Urinary tract infection type: site unspecified Chronic kidney disease, stage 4 (severe) N18.4 Acute kidney injury superimposed on CKD N17.9; N18.9 AMS (altered mental status) R41.82 Altered mental status type: unspecified Anemia of chronic disease D63.8 (1) Acute renal failure Acute renal failure type: unspecified Qualified Code(s): N17.9 - Acute kidney failure, unspecified (2) UTI (urinary tract infection) Hematuria presence: without hematuria Urinary tract infection type: site unspecified Qualified Code(s): N39.0 - Urinary tract infection, site not specified (5) AMS (altered mental status) Altered mental status type: unspecified Qualified Code(s): R41.82 - Altered mental status, unspecified
[2023-01-04] MEDS ORDERED: MICONAZOLE NITRATE POWDER 85 GM EXT PRN (10:18)
[2023-01-04 14:51] LABS: BUN Creatinine Ratio 14.3 (10-20); Calcium 7.7 mg/dl (8.6-10.3); Est GFR (African American) 10.2 ml/min; Est GFR (Non-African American) 8.8 ml/min
[2023-01-04] MEDS ORDERED: LIDOCAINE 2% JELLY 5 ML TUBE EXT ONE (16:36)
[2023-01-04] MEDS ORDERED: LIDOCAINE 2% JELLY 5 ML TUBE EXT PRN (17:00)
[2023-01-04] MEDS ORDERED: predniSONE 20 MG TAB PO STA (17:36)
--- NOTE | 2023-01-04 18:28 | Urology Consultation ---
Date of Consultation January 04, 2023 Assessment & Plan (1) Acute renal failure: Lopez catheter is in good position. I have low suspicion for postrenal etiology of his worsening kidney function, would defer to nephrology for further recommendations. Catheter should stay in place until his kidney function im proves. Voiding trial can be performed as an outpatient. (2) UTI (urinary tract infection): Urine culture from 12/27/2022 with Klebsiella pneumoniae. Repeat culture from 12/29 with no growth. He is not currently on antibiotics and if he is stable and not having any fevers, would be reasonable to hold off any new medications for now. Plan No plan for further urologic intervention at this time. He currently has an outpatient follow-up appointment scheduled for 01/11/2023. Potentially could have a voiding trial at that time if he is out of the hospital, otherwise appointment can be rescheduled. Urology will sign off for now, please call with any questions or concerns. History of Present Illness Attending Physician: Gary Bennett MD History of Present Illness This is an 87-year-old male with history of CKD 4, followed by urology for BPH and prior urethral stricture. He was most recently admitted to the hospital on 12/29/2022 with worsening renal function and progressive weakness as well as concern for possible urinary tract infection. He is currently being followed by nephrology for worsening renal function. Overall, the main concern is for AIN, however with his history of urethral stricture and urinary retention, urology was consulted. He has been intermittently managing with the catheter and voiding trials over the past couple months. PVR in the hospital has been slightly elevated (100 to 150 mL). A renal ultrasound was performed on 01/03/2023. I independently reviewed these images. There is no hydronephrosis of either kidney. His bladder was partially distended but did not appear overtly full. Both ureteral jets were visualized. Lopez catheter was placed on 01/04/2023 by his nurse without significant resistance or difficulty. At the bedside, catheter was draining lightly cloudy urine. Allergies Allergy/AdvReac Type Severity Reaction Status Date / Time ciprofloxacin [From Cipro] AdvReac Severe Unknown Verified 12/29/22 17:47 semaglutide [From Ozempic] AdvReac Severe NAUSEA/VOMI Verified 12/29/22 17:47 TING/ANOREX IA amlodipine AdvReac Intermediate SWELLING Verified 12/29/22 17:47 OF ANKLES ropinirole AdvReac Intermediate CHANGE IN Verified 12/29/22 17:47 MENTAL STATUS Home Medications Medication Instructions Recorded Confirmed Type albuterol sulfate 90 mcg/actuation 2 puffs inhalation Q6H PRN 01/10/19 12/29/22 History aerosol inhaler shortness of breath or wheezing levothyroxine 88 mcg tablet 88 mcg PO DAILYBB #90 tabs 01/10/19 12/29/22 History potassium chloride 20 mEq 20 meq PO BID 01/10/19 12/29/22 History tablet,extended release finasteride 5 mg tablet 5 mg PO HS 04/23/19 12/29/22 History losartan 25 mg tablet 25 mg PO QAM 04/23/19 12/29/22 History gabapentin 100 mg capsule See Rx Instructions .Route .COMPLEX 12/16/20 12/29/22 History aspirin 81 mg tablet,delayed 81 mg PO DAILY 10/11/21 12/29/22 History release pantoprazole 20 mg tablet,delayed 20 mg PO BID 02/07/22 12/29/22 History release insulin glargine 100 unit/mL (3 30 unit subcut BID 04/12/22 12/29/22 History mL) subcutaneous pen (Lantus Solostar U-100 Insulin) acetaminophen 500 mg tablet 1,000 mg PO Q6H PRN PAIN/FEVER 05/28/22 12/29/22 History (Tylenol Extra Strength) clonazepam 1 mg tablet 1 mg PO BID 05/28/22 12/29/22 History diphenhydramine HCl 25 mg capsule 25 mg PO BID PRN NEEDED 05/28/22 12/29/22 History (Benadryl) fluticasone 500 mcg-salmeterol 50 1 inh inhalation BID 05/28/22 12/29/22 History mcg/dose blistr powdr for inhalation metoprolol tartrate 50 mg tablet 25 mg PO BID 05/28/22 12/29/22 History multivitamin with minerals 1 tab PO DAILY 05/28/22 12/29/22 History rosuvastatin 20 mg tablet 20 mg PO HS 05/28/22 12/29/22 History tiotropium bromide 2.5 2 puff inhalation DAILY 05/28/22 12/29/22 History mcg/actuation mist for inhalation vitamins A,C,H-bbza-vawzgz 2,148 1 tab PO DAILY 05/28/22 12/29/22 History mcg-113 mg-45 mg-17.4 mg tablet (PreserVision AREDS) bumetanide 2 mg tablet 2 mg PO BID 12/28/22 12/29/22 History apixaban 5 mg tablet (Eliquis) 2.5 mg PO Q12H 12/29/22 12/29/22 History bacitracin zinc 500 unit-polymyxin 1 applic topical Q12H PRN Wound 12/29/2208/18 History B 10,000 unit/gram topical ointment Care calcium citrate 315 mg-vitamin D3 2 tab PO DAILY 12/29/22 12/29/22 History 5 mcg (200 unit) tablet (Calcium Citrate + D) insulin aspart U-100 100 unit/mL 15 unit subcut AC PRN NEEDED 12/29/22 12/29/22 History (3 mL) subcutaneous pen (Novolog FlexPen U-100 Insulin aspart) loratadine 10 mg tablet (Claritin) 10 mg PO DAILY PRN Congestion 12/29/22 12/29/22 History tamsulosin 0.4 mg capsule (Flomax) 0.8 mg PO HS 12/29/22 12/29/22 History Patient History Medical History (Updated 01/02/23 @ 18:23 by Je Zavaleta DO) Eawpo-ne-gazhyuo kidney injury AMS (altered mental status) Anemia of chronic disease Anxiety Aortic stenosis Mild per 03/06/19 stress ECHO Asthma Uses rescue inhaler a couple times per week Atrial fibrillation Follows with Dr. Gr Bacteremia Blindness of left eye BPH (benign prostatic hyperplasia) CAD (coronary artery disease) Angioplasty ~1993, CABG x 3 2013 (GALINDO to LAD, SVG to PDA, SVG to OM) CHF (congestive heart failure) Chronic kidney disease Follows with Dr. Dixon Chronic obstructive pulmonary disease Diabetes Type 2 IDDM Foot ulcer GERD (gastroesophageal reflux disease) Herpes zoster Hiatal hernia Hyperlipidemia Hypertension Hypothyroidism Leukocytosis Macular degeneration Myocardial infarct ~1993 Peripheral neuropathy Rupture of left distal biceps tendon hx - no surgery Secondary hyperparathyroidism (of renal origin) Surgical History Fusion of spine lumbar History of appendectomy History of cardiac cath with angioplasty ~1993 ([facility]) & 2013 ([facility]) History of cataract surgery bilateral History of coronary artery bypass graft x3 vessels ([facility] 2013) with epicardial RFA of pulmonary veins and left atrial appendage ligation History of revision of total replacement of right knee joint History of tonsillectomy History of tooth extraction History of total left knee replacement History of total right knee replacement Hx of colonoscopy Previous back surgery (08/26/12) S/P cholecystectomy Family History Brother Heart disease Diabetes Sister Cancer Mother Diabetes Father Diabetes Other Hypertension Kidney disease Social History Smoking Status: Never smoker Tobacco Type: Cigarettes Second Hand Exposure: No; Do You Dip or Chew Tobacco: No; Hx Alcohol Use: No Hx Substance Use: No Preferred Language: Cymraes Communication Ability: Impaired Visual Impairment: Partially Limited Retail Salesman Required: No Beliefs That Will Affect Care: None marital status: Current Living Situation: Spouse Current Living Situation Comment: lives at home with current occupational status: retired Other Information That Helps Us Care for You: No Feels Safe at Home: Yes Safety Concerns: Feels Safe At This Time Assistive Devices: Walker and Wheelchair Review of Systems 2 Review of Systems: 12 point review of systems negative except for otherwise indicated. Physical Exam Physical Exam: Frail-appearing, NAD Constitutional: well developed and well nourished; no acute distress Eyes: + anicteric sclerae; pupils not irregular Respiratory: normal respiratory effort; no respiratory distress, does not use accessory muscles and no cough Cardiovascular: well perfused Gastrointestinal (Abdomen): Inspection/Auscultation: abdomen normal to inspection; abdomen not distended Musculoskeletal: Grossly normal Skin: normal turgor; no rashes and no lesions Neurologic: moves all extremities and awake Psychiatric: Orientation: alert Genitourinary: Lopez catheter draining slightly cloudy yellow urine Results & Data Vital Signs (Past 12 Hours) Vital Signs Temp Pulse Pulse Pulse Resp BP Pulse Ox 01/04/23 16:00 63 01/04/23 15:23 36.6 C 61 18 104/60 94 01/04/23 12:09 36.8 C 73 18 155/64 H 94 01/04/23 08:00 01/04/23 07:30 97 H 01/04/23 07:21 36.7 C 68 18 152/70 H 94 O2 Del Method 01/04/23 16:00 01/04/23 15:23 Room Air 01/04/23 12:09 Room Air 01/04/23 08:00 Room Air 01/04/23 07:30 01/04/23 07:21 Room Air PG Care Time/CCT Total # of Minutes Spent Total Time Spent with Patient: Total time spent is greater than 50% in coordination of care (as documented) at patient's floor/unit and/or counseling patient: Coding Level of Care Code 78509 INT INP/OBS CARE 2MIN Diagnoses Acute renal failure N17.9 Acute renal failure type: unspecified UTI (urinary tract infection) N39.0 Hematuria presence: without hematuria Urinary tract infection type: site unspecified (1) Acute renal failure Acute renal failure type: unspecified Qualified Code(s): N17.9 - Acute kidney failure, unspecified (2) UTI (urinary tract infection) Hematuria presence: without hematuria Urinary tract infection type: site unspecified Qualified Code(s): N39.0 - Urinary tract infection, site not specified
[2023-01-04] MEDS: TAMSULOSIN HCL 0.4 MG CAP PO SCH (22:35)
[2023-01-04] MEDS: ROSUVASTATIN CALCIUM 5 MG TAB PO SCH (22:36)
[2023-01-04] MEDS: FINASTERIDE 5 MG TAB PO SCH (22:37)
[2023-01-05] MEDS: ACETAMINOPHEN 500 MG TAB PO SCH ×3 (02:42→18:23)
[2023-01-05] MEDS: LEVOTHYROXINE SODIUM 88 MCG TABLET PO SCH (06:33)
--- NOTE | 2023-01-05 07:30 | Hospitalist Progress Note ---
"Date of Service January 05, 2023 Assessment & Plan (1) Left leg weakness: Plan: Renal Failure | CKD Stage IV - creatine went from 2.3 to 4.1 in 2 days (baseline 1.8-2). Repeat Cr today 5.96 - CT abdomen/pelvis without stones of nephrolithiasis or hydronephrosis - Consulted nephrology, appreciate recommendations - Concern of possible ATN and/or AIN, urine studies with granular casts and pyuria. Will add cephalosporins to allergy list due to renal decline possibly secondary to cephalosporin use. - Started Prednisone, Strict I's & O's. - Producing minimal quantities of urine - Nephrology anticipating possible catheter placement for dialysis tomorrow - Holding Bumex, losartan, statin renally dosed Hypervolemic Hyponatremia - Sodium of 127 this morning - Secondary to renal failure, excess free water - Patient will likely require dialysis in near future - Monitor daily BMP Altered Mental Status: Metabolic Encephalopathy - Patient catatonic on 01/02 p.m. code purple called: vitals stable and CT head normal - Episodes of delirium, could attribute to hospital related delirium vs. uncontrolled pain vs. depression - Also on Klonopin, gabapentin chronically. Episode of catatonia 01/02 afternoon - Will hold further gabapentin Left Leg Pain, Weakness - Pain began abruptly over 1 week ago, no known inciting event but patient was alone at time of onset and has poor recollection of that time - CT Lumbar spine on admission without acute changes - Left leg pain on 12/30/22 with more significant pain with manipulation of hip/rotation and radiates to groin raising concern of hip injury - Hip/Pelvis XR completed: no fractures/acute ana abnormalities - Had been able to participate with PT and leg pain was improved on 12/31, but since then pain is more intense and nonspecific throughout left LE. - Ortho consulted- no plans for immediate intervention but consider outpatient hip injection -Scheduled Tylenol, Morphine 2mg q4h PRN DM2 - Home regimen; Insulin aspart 15 units with each meal in addition to his home Lantus 30 units BID - SSI with correction factor of 20 and carb ratio of 6, Lantus 20 units BID - Insulin adjusted as patient started Prednisone yesterday with subsequent hyperglycemia - Hemoglobin a1c= 11.5 on 09/2022, repeat on admission a1c 9.5% UTI- Resolved - UA consistent with UTI, urine culture from 12/27 growing Klebsiella that was susceptible to ceftriaxone - Urine culture from admission: final culture with no growth - Considering recent history of multiple UTIs, bacteremia- completed course of antibiotics Anxiety - Continue clonazepam Hypothyroidism - Continue levothyroxine - TSH= 1.9 on 12/01 Heart failure with preserved ejection fraction, CAD - last echo (11/10/2022) LVEF 60-65%, moderate - Does not appear to be hypervolemic - continue metoprolol, statin, aspirin, hold losartan in the setting of JUDI COPD - continue Breo, Incruse - Albuterol prn Paroxysmal A-fib - continue Eliquis and metoprolol GERD - continue pantoprazole Diet: Low K, carb consistent, heart healthy Dispo: Med Surg with tele Code: DNR/DNI VTE Prophylaxis: Eliquis (2) Acute UTI (urinary tract infection): (3) Anemia of chronic disease: (4) Chronic kidney disease, stage 4 (severe): (5) Acute kidney injury: (6) Hyperkalemia: (7) Hypothyroidism: (8) Hypertension: (9) Dyslipidemia: (10) Paroxysmal atrial fibrillation: (11) Anxiety: Admission and Anticipated Discharge Date Admission Date: December 29, 2022 Supervising Physician Co-Signing Physician Notes Attending attestation Pt seen and examined in concert with Dr. Gibbs. In agreement with the documented findings as noted in the resident documentation with any exceptions or additions as noted here. Resting in bed, AAOx1-2 and tangential but without significant complaint. On examination, S1/S2 nl RRR no MCG. CTAB. Abd NT/ND BS+ve JUDI on CKDIV, concern for AIN 2/2 cephalosporin use - nephro consult - ongoing upward Cr trajectory in the setting of steroid therapy and hydration challenge. Pending catheter insertion 01/06 for dialysis. Trend BMP Altered mental status - metabolic encephalopathy in the setting of UTI vs. pain induced delirium vs. exacerbation of underlying dementia vs. medication induced in the setting of JUDI on CKD - multifactorial cause Left leg pain with weakness - OA vs. complications of spinal pathology - improved pain and ROM in the setting of steroid use. Continue APAP w/ PRN morphine for pain control, PT/OT where able. UTI - completed course of treatment Else see resident documentation as noted. Subjective Patient seen and examined at bedside. No acute events reported overnight. He notes some improvement with his leg pain this morning and slept more last night. He is sitting in the chair beside his bed, had just finished his breakfast. Denies shortness of breath or chest pain. Lopez catheter in place, minimal urine draining. Review of Systems Review of Systems: As per above Physical Exam Constitutional: + lethargic; no acute distress Eyes: + anicteric sclerae ENMT: External ears and nose normal, moist mucous membranes. Respiratory: normal respiratory effort, lungs clear to auscultation Cardiovascular: Rate/Rhythm: regular rate and regular rhythm Systolic murmur Gastrointestinal (Abdomen): Abdomen soft, nontender and nondistended Skin: no rashes, warm and dry Psychiatric: A+Ox3, euthymic affect Genitourinary: Lopez catheter in place. Results & Data Results & Data Vital Signs (Past 12 Hours) Vital Signs Temp Pulse Pulse Resp BP BP Pulse Ox 01/05/23 07:20 36.1 C L 62 15 146/65 H 94 01/05/23 03:03 36.7 C 66 18 167/54 H 95 01/05/23 00:00 59 L 01/04/23 23:10 36.5 C 62 18 153/66 H 93 01/04/23 19:47 36.5 C 58 L 18 125/57 L 93 O2 Del Method 01/05/23 07:20 Room Air 01/05/23 03:03 Room Air 01/05/23 00:00 01/04/23 23:10 Room Air 01/04/23 19:47 Room Air Resident Activity Tracking Resident Involvement: Resident Care Provided Care Provided: Adult Hospital Medicine (7) Hypothyroidism Hypothyroidism type: unspecified Qualified Code(s): E03.9 - Hypothyroidism, unspecified (8) Hypertension Hypertension type: essential hypertension Qualified Code(s): I10 - Essential (primary) hypertension"
[2023-01-05 08:09] LABS: Basophils # (auto) 0.01 K/uL (0-0.2); Basophils % (auto) 0.1 %; Hematocrit (blood only) 28.8 % (42.0-52.0); Hemoglobin 9.8 g/dl (14.0-18.0); Immature Granulocytes # (auto) 0.11 K/uL (0.01-0.20); Immature Granulocytes % (auto) 1.3 %; Lymphocytes % (auto) 9.2 %; Mean Corpuscular Hemoglobin 30.4 pg (25.0-34.0); Mean Corpuscular Volume 89.4 fL (80.0-100.0); Mean Platelet Volume 9.1 fL (9.4-12.4); Monocytes # (auto) 0.05 K/uL (0.11-0.59); Monocytes % (auto) 0.6 %; Neutrophils % (auto) 88.8 %; Platelet Count 282 K/uL (130-400); RDW Coefficient of Variation 12.7 % (11.5-14.5); RDW Standard Deviation 42.1 fL (36.4-46.3); Red Blood Count 3.22 M/uL (4.70-6.10); White Blood Count 8.67 K/ul (4.8-10.8)
[2023-01-05] MEDS: APIXABAN 2.5 MG TAB PO SCH (08:25)
[2023-01-05] MEDS: PANTOprazole 40 MG TAB PO SCH ×2 (08:26→21:07)
[2023-01-05] MEDS: ASPIRIN 81 MG ECTAB PO SCH (08:26)
[2023-01-05] MEDS: UMECLIDINIUM/VILANTEROL 62.5/25MCG 7 PUFFS/INHALER INH SCH (08:26)
[2023-01-05] MEDS: METOPROLOL TARTRATE 25 MG TAB PO SCH ×2 (08:26→21:07)
[2023-01-05] MEDS: FLUTICASONE/VILANTEROL 200/25MCG 14 PUFFS/INHALER INH SCH (08:26)
[2023-01-05] MEDS: INSULIN ASPART PER UNIT CHARGE SC SCH ×4 (08:32→22:25)
[2023-01-05] MEDS: LANTUS PER UNIT CHARGE SQ SCH ×2 (08:33→22:26)
[2023-01-05] MEDS: clonazePAM 1 MG TAB PO SCH ×2 (08:34→21:13)
[2023-01-05 08:42] LABS: Albumin Level 2.4 gm/dl (3.4-5.0); BUN Creatinine Ratio 14.1 (10-20); Calcium 8.2 mg/dl (8.6-10.3); Creatinine Clr Calc Pharmacy 8.4 ml/min; Est GFR (African American) 9.4 ml/min; Est GFR (Non-African American) 8.1 ml/min; Phosphorus 8.8 mg/dl (2.5-4.9); Potassium 4.6 mmol/L (3.5-5.1)
[2023-01-05] MEDS ORDERED: IRON SUCROSE 200 MG in 0.9 % SODIUM CHLORIDE 100 ML IV ONE (09:15)
--- NOTE | 2023-01-05 09:28 | Orthopedic Progress Note ---
Date of Service January 05, 2023 Assessment & Plan (1) Left leg weakness: Plan: The patient was educated regarding today's findings. He is doing better. Will gladly follow him in the office if he desires. Option of steroid use was discussed. He states he did does not want to use any oral or injectable steroid due to his diabetes. He would consider physical therapy. Contact number will be provided. No further orthopedic intervention is necessary at this time unless his symptoms change. Admission and Anticipated Discharge Date Admission Date: December 29, 2022 Supervising Physician Co-Signing Physician Notes I, Dr. Fisher, saw and examined the patient []and discussed the management with my PA. I reviewed my PAs note and agree with the documented findings and the plan of care I developed. Subjective This 87-year-old male is seen in follow-up for his left leg pain. He states he has no significant discomfort today. He says he has been up to go to the bathroom and has transferred without difficulty. He is content with his level of pain control. No other orthopedic complaints at this time. Physical Exam Physical Exam: General: Well-developed, elderly male, in no acute distress. Sitting in his bedside chair. Alert and oriented. Skin: Warm and dry with fair turgor. No rashes. No ecchymosis or erythema over his left hip. He continues to have some trace edema peripherally. Musculoskeletal: Left hip exam reveals minimal discomfort with passive flexion and extension as well as rotation. Motion is limited consistent with his baseline. He has no significant discomfort with palpation over the IT band or greater trochanter. No pain over his iliac crest. No pain with palpation around his knee or lower leg. Neurologic: Gross sensation is intact across the left leg by soft touch. There is decreased sensation distally consistent with his peripheral neuropathy. Results & Data Vital Signs (Past 12 Hours) Vital Signs Temp Pulse Pulse Resp BP BP Pulse Ox 01/05/23 07:00 54 L 01/05/23 07:20 36.1 C L 62 15 146/65 H 94 01/05/23 03:03 36.7 C 66 18 167/54 H 95 01/05/23 00:00 59 L 01/04/23 23:10 36.5 C 62 18 153/66 H 93 O2 Del Method 01/05/23 07:00 01/05/23 07:20 Room Air 01/05/23 03:03 Room Air 01/05/23 00:00 01/04/23 23:10 Room Air
[2023-01-05] MEDS: SODIUM BICARBONATE 650 MG TAB PO SCH ×2 (09:55→21:08)
[2023-01-05] MEDS: CALCIUM ACETATE 667 MG CAP/TAB PO SCH ×2 (11:40→17:02)
--- NOTE | 2023-01-05 12:30 | Nephrology Progress Note ---
Date of Service January 05, 2023 Assessment & Plan (1) Acute renal failure: Plan: Creatinine unfortunately continues to rise. Lopez placed. Prednisone 60 mg PO daily started yesterday. Unfortunately, no signs of renal recovery. Trajectory of kidney function decline unfortunately suggests that Chang will require dialysis in the near future. He expressed understanding in this regard. Clinical presentation suggestive of AIN from cephalosporin use. Chang has a his tory of a similar presentation and rapid deterioration of kidney function following recent re-exposure. Avoid any further cephalosporins in the future. Due to age and medical comorbidities, I would defer biopsy. Empiric prednisone 1 mg/kg started yesterday. 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 He is approaching need for MOLD CLAMPER now. I discussed this with him today. Eliquis will need to be held to safely place TDC. I would favor potentially placing the dialysis catheter tomorrow, if we do not see improvement in the next [address] Ramirez confirmed that he will be available. Volume status and BP are acceptable. Electrolytes remain acceptable (except for some noted hyperphosphatemia and mild hyponatremia with increasing NAGMA). No emergent indication for dialysis at this time. Calcium acetate started for hyperphosphatemia. PO free water restriction initiated. Oral NaHCO3 added. Chang remains on a renal diet. Urine studies demonstrating hyaline and granular casts and persistent pyuria. This is supportive of prerenal physiology, ATN and AIN. Document strict I/O's. A metabolic profile has been ordered for this afternoon. Medications are appropriately dosed for kidney function. Gabapentin held. Rosuvastatin dose reduced for kidney dysfunction. (2) UTI (urinary tract infection): Plan: Completed treatment. Culture negative on admission s/p 2 doses of Bactrim. Avoid cephalosporins. (3) Chronic kidney disease, stage 4 (severe): Plan: Creatinine ~1.5 mg/dL at baseline. Followed by Dr. Dixon as outpatient. 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 Potential indications for dialysis reviewed with Chang this AM. (4) Acute kidney injury superimposed on CKD: (5) Anemia of chronic disease: Plan: Venofer 200 mg IV x second dose today. Epogen 23188 units SQ provided 01/04. Admission and Anticipated Discharge Date Admission Date: December 29, 2022 Subjective No acute events overnight. No complaints this AM. Lopez placed by urology yesterday afternoon. Remains relatively oliguric. Chang denies significant fluid retention or edema. No notable response to IVF challenge yesterday. Review of Systems Review of Systems: All systems reviewed & are unremarkable except as noted in HPI & below Physical Exam Constitutional: well developed and + frail appearing; no acute distress Eyes: no scleral abnormality and no corneal abnormality ENMT: Mouth: no oral mucosal abnormality and oral mucous membranes not dry Neck: normal visual inspection, trachea midline and + thick neck Respiratory: normal respiratory effort Auscultation: lungs clear to auscultation bilaterally and + rales (few soft on the right) Cardiovascular: Rate/Rhythm: regular rate Heart Sounds: normal S1 and normal S2 Extremities: + edema Musculoskeletal: Extremities: no cyanosis and no clubbing Skin: normal turgor; no jaundice Neurologic: Motor/Sensory: no tremor and no asterixis Psychiatric: Orientation: alert and oriented x 3 Results & Data Vital Signs (Past 12 Hours) Vital Signs Temp Pulse Pulse Resp BP BP Pulse Ox 01/05/23 11:24 35.9 C L 67 16 169/76 H 96 01/05/23 07:00 54 L 01/05/23 07:20 36.1 C L 62 15 146/65 H 94 01/05/23 03:03 36.7 C 66 18 167/54 H 95 O2 Del Method 01/05/23 11:24 Room Air 01/05/23 07:00 01/05/23 07:20 Room Air 01/05/23 03:03 Room Air Laboratory Results Laboratory Results - last 24 hr 01/04/23 01/04/23 01/04/23 14:07 17:15 20:20 WBC RBC Hgb Hct MCV MCH MCHC RDW Std Deviation RDW Coeff of Adrian Plt Count MPV Immature Gran % (Auto) Neut % (Auto) Lymph % (Auto) [place] % (Auto) Eos % (Auto) Baso % (Auto) Neut # (Auto) Lymph # (Auto) [place] # (Auto) Eos # (Auto) Baso # (Auto) Immature Gran # (Auto) Sodium 129 L Potassium 4.0 Chloride 99 Carbon Dioxide 22 Anion Gap 8 BUN 77 H Creatinine 5.40 H* Est Cr Clr Drug Dosing 9.0 Est GFR ( Amer) 10.2 Est GFR (Non-Af Amer) 8.8 BUN/Creatinine Ratio 14.3 Glucose 214 H POC Glucose 160 H 133 H Calcium 7.7 L Phosphorus Albumin 01/05/23 01/05/23 01/05/23 06:49 06:49 08:09 WBC 8.67 RBC 3.22 L Hgb 9.8 L Hct 28.8 L MCV 89.4 MCH 30.4 MCHC 34.0 RDW Std Deviation 42.1 RDW Coeff of Adrian 12.7 Plt Count 282 MPV 9.1 L Immature Gran % (Auto) 1.3 Neut % (Auto) 88.8 Lymph % (Auto) 9.2 [place] % (Auto) 0.6 Eos % (Auto) 0.0 Baso % (Auto) 0.1 Neut # (Auto) 7.70 H Lymph # (Auto) 0.80 L [place] # (Auto) 0.05 L Eos # (Auto) 0.00 Baso # (Auto) 0.01 Immature Gran # (Auto) 0.11 Sodium 127 L Potassium 4.6 Chloride 96 L Carbon Dioxide 19 L Anion Gap 12 H BUN 81 H Creatinine 5.76 H* D Est Cr Clr Drug Dosing 8.4 Est GFR ( Amer) 9.4 Est GFR (Non-Af Amer) 8.1 BUN/Creatinine Ratio 14.1 Glucose 173 H POC Glucose 197 H Calcium 8.2 L Phosphorus 8.8 H Albumin 2.4 L 01/05/23 01/05/23 11:38 11:41 WBC RBC Hgb Hct MCV MCH MCHC RDW Std Deviation RDW Coeff of Adrian Plt Count MPV Immature Gran % (Auto) Neut % (Auto) Lymph % (Auto) [place] % (Auto) Eos % (Auto) Baso % (Auto) Neut # (Auto) Lymph # (Auto) [place] # (Auto) Eos # (Auto) Baso # (Auto) Immature Gran # (Auto) Sodium Potassium Chloride Carbon Dioxide Anion Gap BUN Creatinine Est Cr Clr Drug Dosing Est GFR ( Amer) Est GFR (Non-Af Amer) BUN/Creatinine Ratio Glucose POC Glucose 310 H* 290 H Calcium Phosphorus Albumin PG Care Time/CCT Total # of Minutes Spent Total Time Spent with Patient: Total time spent is greater than 50% in coordination of care (as documented) at patient's floor/unit and/or counseling patient: Coding Level of Care Code 71251 SUB INP/OBS CARE 3/50MIN Diagnoses Acute renal failure N17.9 Acute renal failure type: unspecified UTI (urinary tract infection) N39.0 Hematuria presence: without hematuria Urinary tract infection type: site unspecified Chronic kidney disease, stage 4 (severe) N18.4 Acute kidney injury superimposed on CKD N17.9; N18.9 Anemia of chronic disease D63.8 (1) Acute renal failure Acute renal failure type: unspecified Qualified Code(s): N17.9 - Acute kidney failure, unspecified (2) UTI (urinary tract infection) Hematuria presence: without hematuria Urinary tract infection type: site unspecified Qualified Code(s): N39.0 - Urinary tract infection, site not specified
[2023-01-05] MEDS: predniSONE 20 MG TAB PO SCH (13:25)
[2023-01-05] MEDS: FINASTERIDE 5 MG TAB PO SCH (21:06)
[2023-01-05] MEDS: ROSUVASTATIN CALCIUM 5 MG TAB PO SCH (21:08)
[2023-01-05] MEDS: TAMSULOSIN HCL 0.4 MG CAP PO SCH (21:08)
[2023-01-06] MEDS: ACETAMINOPHEN 500 MG TAB PO SCH ×3 (03:25→21:13)
[2023-01-06] MEDS: LEVOTHYROXINE SODIUM 88 MCG TABLET PO SCH (05:32)
[2023-01-06] MEDS ORDERED: CLINDAMYCIN/D5W 900 MG/50 ML BAG IV SCH (06:00)
[2023-01-06] MEDS ORDERED: 600mg Preop IV SCH (06:00)
[2023-01-06] MEDS ORDERED: 300mg Preop IV SCH (06:00)
[2023-01-06 07:06] LABS: Basophils # (auto) 0.02 K/uL (0-0.2); Basophils % (auto) 0.2 %; Hematocrit (blood only) 27.6 % (42.0-52.0); Hemoglobin 9.6 g/dl (14.0-18.0); Immature Granulocytes # (auto) 0.26 K/uL (0.01-0.20); Immature Granulocytes % (auto) 2.3 %; Lymphocytes # (auto) 0.69 K/uL (1.2-3.4); Lymphocytes % (auto) 6.1 %; Mean Corpuscular Hemoglobin 30.7 pg (25.0-34.0); Mean Corpuscular Hgb Conc 34.8 g/dL (32.0-36.0); Mean Corpuscular Volume 88.2 fL (80.0-100.0); Mean Platelet Volume 9.2 fL (9.4-12.4); Monocytes # (auto) 0.31 K/uL (0.11-0.59); Monocytes % (auto) 2.7 %; Neutrophils # (auto) 10.03 K/uL (1.40-6.50); Neutrophils % (auto) 88.7 %; Platelet Count 291 K/uL (130-400); RDW Coefficient of Variation 12.6 % (11.5-14.5); RDW Standard Deviation 40.8 fL (36.4-46.3); Red Blood Count 3.13 M/uL (4.70-6.10); White Blood Count 11.31 K/ul (4.8-10.8)
[2023-01-06 07:27] LABS: Albumin Level 2.4 gm/dl (3.4-5.0); BUN Creatinine Ratio 13.4 (10-20); Calcium 7.9 mg/dl (8.6-10.3); Creatinine Clr Calc Pharmacy 6.8 ml/min; Est GFR (African American) 7.2 ml/min; Est GFR (Non-African American) 6.2 ml/min; Phosphorus 8.7 mg/dl (2.5-4.9); Potassium 4.4 mmol/L (3.5-5.1)
--- NOTE | 2023-01-06 07:36 | Hospitalist Progress Note ---
"Date of Service January 06, 2023 Assessment & Plan (1) Left leg weakness: Plan: Renal Failure | CKD Stage IV - creatine went from 2.3 to 4.1 in 2 days (baseline 1.8-2). Cr this morning at 7.19 - CT abdomen/pelvis without stones of nephrolithiasis or hydronephrosis - Consulted nephrology, appreciate recommendations - Concern of possible ATN and/or AIN, urine studies with granular casts and pyuria. Added cephalosporins to allergy list due to renal decline possibly secondary to cephalosporin use. - Started Prednisone, Strict I's & O's. - Producing minimal quantities of urine - Permacath placed and dialysis started today - Holding Bumex, losartan, statin renally dosed Hypervolemic Hyponatremia - Sodium of 122 this morning - Secondary to renal failure, excess free water - Patient began dialysis today, will monitor BMP Altered Mental Status: Metabolic Encephalopathy - Patient catatonic on 01/02 p.m. code purple called: vitals stable and CT head normal - Episodes of delirium, could attribute to hospital related delirium vs. uncontrolled pain vs. depression - Also on Klonopin, gabapentin chronically. Episode of catatonia 01/02 afternoon - Will hold further gabapentin Left Leg Pain, Weakness - Pain began abruptly over 1 week ago, no known inciting event but patient was alone at time of onset and has poor recollection of that time - CT Lumbar spine on admission without acute changes - Left leg pain on 12/30/22 with more significant pain with manipulation of hip/rotation and radiates to groin raising concern of hip injury - Hip/Pelvis XR completed: no fractures/acute ana abnormalities - Had been able to participate with PT and leg pain was improved on 12/31, but since then pain is more intense and nonspecific throughout left LE. - Ortho consulted- no plans for immediate intervention but consider outpatient hip injection -Scheduled Tylenol, Morphine 2mg q4h PRN DM2 - Home regimen; Insulin aspart 15 units with each meal in addition to his home Lantus 30 units BID - SSI with correction factor of 20 and carb ratio of 6, Lantus 20 units BID - Insulin adjusted as patient started Prednisone with subsequent hype rglycemia - Hemoglobin a1c= 11.5 on 09/2022, repeat on admission a1c 9.5% - Pharmacy consulted for glycemic control UTI- Resolved - UA consistent with UTI, urine culture from 12/27 growing Klebsiella that was susceptible to ceftriaxone - Urine culture from admission: final culture with no growth - Considering recent history of multiple UTIs, bacteremia- completed course of antibiotics Anxiety - Continue clonazepam Hypothyroidism - Continue levothyroxine - TSH= 1.9 on 12/01 Heart failure with preserved ejection fraction, CAD - last echo (11/10/2022) LVEF 60-65%, moderate - Does not appear to be hypervolemic - continue metoprolol, statin, aspirin, hold losartan in the setting of JUDI COPD - continue Breo, Incruse - Albuterol prn Paroxysmal A-fib - continue Eliquis and metoprolol GERD - continue pantoprazole * Discussed with patient's about plan for after discharge, they would consider home health but would prefer not [facility]. Diet: Low K, carb consistent, heart healthy Dispo: Med Surg with tele Code: DNR/DNI VTE Prophylaxis: Eliquis (2) Acute UTI (urinary tract infection): (3) Anemia of chronic disease: (4) Chronic kidney disease, stage 4 (severe): (5) Acute kidney injury: (6) Hyperkalemia: (7) Hypothyroidism: (8) Hypertension: (9) Dyslipidemia: (10) Paroxysmal atrial fibrillation: (11) Anxiety: Admission and Anticipated Discharge Date Admission Date: December 29, 2022 Supervising Physician Co-Signing Physician Notes I personally examined the patient and verified aguayo points of history and exam, discussed case, and agree with decision making and plan documented by Dr. Gibbs. Examined patient after catheter placement prior to dialysis today. Subjective Patient seen and examined at bedside, no acute events overnight. Patient had permacath placed this morning and underwent dialysis session this afternoon. Review of Systems Review of Systems: As per above Physical Exam Constitutional: no acute distress Eyes: + anicteric sclerae ENMT: Ears: no external ear abnormality Nose: no external nose abnormality Moist mucous membranes Respiratory: normal respiratory effort, lungs clear to auscultation Cardiovascular: Rate/Rhythm: regular rate and regular rhythm Skin: no rashes, warm and dry Permacath in place Psychiatric: A+Ox3, euthymic affect Results & Data Results & Data Vital Signs (Past 12 Hours) Vital Signs Temp Pulse Pulse Pulse Resp BP Pulse Ox 01/06/23 07:21 35.8 C L 71 18 175/77 H 96 08/10/23 21:08 01/06/23 02:21 36.4 C L 73 20 176/78 H 97 01/06/23 01:04 69 01/05/23 23:21 36.3 C L 69 18 151/71 H 96 O2 Del Method 01/06/23 07:21 Room Air 01/05/23 21:08 Room Air 01/06/23 02:21 Room Air 01/06/23 01:04 01/05/23 23:21 Room Air Resident Activity Tracking Resident Involvement: Resident Care Provided Care Provided: Adult Hospital Medicine (7) Hypothyroidism Hypothyroidism type: unspecified Qualified Code(s): E03.9 - Hypothyroidism, unspecified (8) Hypertension Hypertension type: essential hypertension Qualified Code(s): I10 - Essential (primary) hypertension"
[2023-01-06] MEDS ORDERED: PHARMACY GLYCEMIC MGMT CONSULT PRN (07:41)
[2023-01-06] MEDS ORDERED: INSULIN HUMAN NPH SC SCH (08:30)
--- NOTE | 2023-01-06 08:43 | Consultation ---
Date of Consultation January 06, 2023 Assessment & Plan (1) Acute renal failure: Pt with acute renal failure and worsening cr. Per nephrology, CONSTRUCTION CODE ADMINISTRATOR recommended. Pt for permcath placement in OR later today by Dr Ramirez. Procedure, risks, benefits, and alternatives discussed with pt by myself at Dr Ramirez's request. Pt expresses understanding and agreement. Patient was seen, examined, and chart reviewed. Agree with exam and treatment plan of the Vascular PA. Acute renal failure type: unspecified Qualified Code(s): N17.9 - Acute kidney failure, unspecified History of Present Illness Reason for Consultation: ESRD Attending Physician: Lisa Glover DO History of Present Illness 87 yo m with hx of CKD, HTN, CAD s/p CABG, hx DVT, aortic stenosis, DMII, COPD, a fib, dyslipidemia, hypothyroidism, BPH, CHF, admitted with acute on chronic renal failure, seen in consultation today for permcath insertion for HD initiation. Pt is a poor historian. Pt admits fatigue, malaise, edema, LE. Denies MOON, fever, chest pain, abd pain, N/V, rest pain, claudication, other complaints. Had permcath earlier this year which was removed in September 2022 d/t it was no longer needed. Allergies Allergy/AdvReac Type Severity Reaction Status Date / Time Cephalosporins Allergy Verified 01/05/23 15:42 ciprofloxacin [From Cipro] AdvReac Severe Unknown Verified 12/29/22 17:47 semaglutide [From Ozempic] AdvReac Severe NAUSEA/VOMI Verified 12/29/22 17:47 TING/ANOREX IA amlodipine AdvReac Intermediate SWELLING Verified 12/29/22 17:47 OF ANKLES ropinirole AdvReac Intermediate CHANGE IN Verified 12/29/22 17:47 MENTAL STATUS Home Medications Medication Instructions Recorded Confirmed Type albuterol sulfate 90 mcg/actuation 2 puffs inhalation Q6H PRN 01/10/19 12/29/22 History aerosol inhaler shortness of breath or wheezing levothyroxine 88 mcg tablet 88 mcg PO DAILYBB #90 tabs 01/10/19 12/29/22 History potassium chloride 20 mEq 20 meq PO BID 01/10/19 12/29/22 History tablet,extended release finasteride 5 mg tablet 5 mg PO HS 04/23/19 12/29/22 History losartan 25 mg tablet 25 mg PO QAM 04/23/19 12/29/22 History gabapentin 100 mg capsule See Rx Instructions .Route .COMPLEX 12/16/20 12/29/22 History aspirin 81 mg tablet,delayed 81 mg PO DAILY 10/11/21 12/29/22 History release pantoprazole 20 mg tablet,delayed 20 mg PO BID 02/07/22 12/29/22 History release insulin glargine 100 unit/mL (3 30 unit subcut BID 04/12/22 12/29/22 History mL) subcutaneous pen (Lantus Solostar U-100 Insulin) acetaminophen 500 mg tablet 1,000 mg PO Q6H PRN PAIN/FEVER 05/28/22 12/29/22 History (Tylenol Extra Strength) clonazepam 1 mg tablet 1 mg PO BID 05/28/22 12/29/22 History diphenhydramine HCl 25 mg capsule 25 mg PO BID PRN NEEDED 05/28/22 12/29/22 History (Benadryl) fluticasone 500 mcg-salmeterol 50 1 inh inhalation BID 05/28/22 12/29/22 History mcg/dose blistr powdr for inhalation metoprolol tartrate 50 mg tablet 25 mg PO BID 05/28/22 12/29/22 History multivitamin with minerals 1 tab PO DAILY 05/28/22 12/29/22 History rosuvastatin 20 mg tablet 20 mg PO HS 05/28/22 12/29/22 History tiotropium bromide 2.5 2 puff inhalation DAILY 05/28/22 12/29/22 History mcg/actuation mist for inhalation vitamins A,C,B-nmaw-lvrnay 2,148 1 tab PO DAILY 05/28/22 12/29/22 History mcg-113 mg-45 mg-17.4 mg tablet (PreserVision AREDS) bumetanide 2 mg tablet 2 mg PO BID 12/28/22 12/29/22 History apixaban 5 mg tablet (Eliquis) 2.5 mg PO Q12H 12/29/22 12/29/22 History bacitracin zinc 500 unit-polymyxin 1 applic topical Q12H PRN Wound 12/29/22 12/29/22 History B 10,000 unit/gram topical ointment Care calcium citrate 315 mg-vitamin D3 2 tab PO DAILY 12/29/22 12/29/22 History 5 mcg (200 unit) tablet (Calcium Citrate + D) insulin aspart U-100 100 unit/mL 15 unit subcut AC PRN NEEDED 12/29/22 12/29/22 History (3 mL) subcutaneous pen (Novolog FlexPen U-100 Insulin aspart) loratadine 10 mg tablet (Claritin) 10 mg PO DAILY PRN Congestion 12/29/22 12/29/22 History tamsulosin 0.4 mg capsule (Flomax) 0.8 mg PO HS 12/29/22 12/29/22 History Patient History Medical History [id number] kidney injury AMS (altered mental status) Anemia of chronic disease Anxiety Aortic stenosis Mild per 03/06/19 stress ECHO Asthma Uses rescue inhaler a couple times per week Atrial fibrillation Follows with Dr. Maile Soares Blindness of left eye BPH (benign prostatic hyperplasia) CAD (coronary artery disease) Angioplasty ~1993, CABG x 3 2013 (GALINDO to LAD, SVG to PDA, SVG to OM) CHF (congestive heart failure) Chronic kidney disease Follows with Dr. Dixon Chronic obstructive pulmonary disease Diabetes Type 2 IDDM Foot ulcer GERD (gastroesophageal reflux disease) Herpes zoster Hiatal hernia Hyperlipidemia Hypertension Hypothyroidism Leukocytosis Macular degeneration Myocardial infarct ~1993 Peripheral neuropathy Rupture of left distal biceps tendon hx - no surgery Secondary hyperparathyroidism (of renal origin) Surgical History Fusion of spine lumbar History of appendectomy History of cardiac cath with angioplasty ~1993 ([facility]) & 2013 ([facility]) History of cataract surgery bilateral History of coronary artery bypass graft x3 vessels ([facility] 2013) with epicardial RFA of pulmonary veins and left atrial appendage ligation History of revision of total replacement of right knee joint History of tonsillectomy History of tooth extraction History of total left knee replacement History of total right knee replacement Hx of colonoscopy Previous back surgery (08/26/12) S/P cholecystectomy Family History Brother Heart disease Diabetes Sister Cancer Mother Diabetes Father Diabetes Other Hypertension Kidney disease Social History Smoking Status: Never smoker Tobacco Type: Cigarettes Second Hand Exposure: No; Do You Dip or Chew Tobacco: No; Hx Alcohol Use: No Hx Substance Use: No Preferred Language: Estonian Communication Ability: Impaired Visual Impairment: Partially Limited 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 Beliefs That Will Affect Care: None marital status: Current Living Situation: Spouse Current Living Situation Comment: lives at home with current occupational status: retired Other Information That Helps Us Care for You: No Feels Safe at Home: Yes Safety Concerns: Feels Safe At This Time Assistive Devices: Walker and Wheelchair Review of Systems Review of Systems: All systems reviewed & are unremarkable except as noted in HPI & below Physical Exam Physical Exam: Constitutional:L WD/WN, vitals as a july + morbidly o bese; not in distr ess Neck: trachea midline Respiratory: normal respiratory effort, lungs isai ar to auscultation Auscultation: + diminished lung so unds and + crackle s Cardiovascular:L Rate/Rhythm: regul ar rate and regula r rhythm Vessels: radial pulses pre sent; + abnormal p eripheral pulses Extremities: yamil l capillary refill and + edema Gastrointestinal ( Abdomen): Inspection/Auscult ation: abdomen nor mal to inspection and normal bowel s ounds Percussion/ Palpation: abdomen soft; abdomen non tender Musculoskeletal: no cyanosis or clu bbing, extremities motor strength 5/ 5 Skin: no rashes, warm an d dry Neurologic: moves all extremit ies, awake ; no fo ritika motor deficits Psychiatric: Orientation: alert , oriented to pers on, oriented to pl romy and cooperativ e; oriented to guido e. mild confusion Results & Data Vital Signs (Past 12 Hours) Vital Signs Temp Pulse Pulse Pulse Resp BP Pulse Ox 01/06/23 08:00 36.4 C L 72 16 189/75 H 97 01/06/23 07:21 35.8 C L 71 18 175/77 H 96 01/05/23 21:08 01/06/23 02:21 36.4 C L 73 20 176/78 H 97 01/06/23 01:04 69 01/05/23 23:21 36.3 C L 69 18 151/71 H 96 O2 Del Method 01/06/23 08:00 Room Air 01/06/23 07:21 Room Air 01/05/23 21:08 Room Air 01/06/23 02:21 Room Air 01/06/23 01:04 01/05/23 23:21 Room Air
[2023-01-06] MEDS: UMECLIDINIUM/VILANTEROL 62.5/25MCG 7 PUFFS/INHALER INH SCH (08:44)
[2023-01-06] MEDS: FLUTICASONE/VILANTEROL 200/25MCG 14 PUFFS/INHALER INH SCH (08:44)
[2023-01-06] MEDS: LANTUS PER UNIT CHARGE SQ SCH ×2 (08:44→21:14)
[2023-01-06] MEDS: clonazePAM 1 MG TAB PO SCH ×2 (08:45→21:13)
[2023-01-06] MEDS: SODIUM BICARBONATE 650 MG TAB PO SCH (08:48)
[2023-01-06] MEDS: predniSONE 20 MG TAB PO SCH (08:49)
[2023-01-06] MEDS: PANTOprazole 40 MG TAB PO SCH ×2 (08:49→21:14)
[2023-01-06] MEDS: METOPROLOL TARTRATE 25 MG TAB PO SCH ×3 (08:49→21:17)
[2023-01-06] MEDS: CALCIUM ACETATE 667 MG CAP/TAB PO SCH ×3 (08:50→17:39)
[2023-01-06] MEDS: INSULIN ASPART PER UNIT CHARGE SC SCH ×4 (08:51→21:14)
[2023-01-06] MEDS ORDERED: HEPARIN SOD (PORCINE) 5,000 UNITS/ML VIAL ONE ×2 (08:52→09:24)
[2023-01-06] MEDS ORDERED: LIDOCAINE 1% LOCAL 20 ML VIAL ONE (08:53)
[2023-01-06] MEDS ORDERED: fentaNYL citrate PF 100 MCG/2 ML VIAL ONE (08:54)
[2023-01-06] MEDS ORDERED: MIDAZOLAM HCL 1 MG/ML 2ML VIAL ONE (08:54)
[2023-01-06] MEDS: ASPIRIN 81 MG ECTAB PO SCH (08:59)
--- NOTE | 2023-01-06 09:19 | Pre Anesthesia Assessment ---
Date of Service January 06, 2023 Pre Sedation Assessment Vital Signs Temp Pulse Pulse Pulse Resp BP BP 01/06/23 09:16 36.3 C L 74 20 159/106 H 01/06/23 08:00 36.4 C L 72 16 189/75 H 01/06/23 07:21 35.8 C L 71 18 175/77 H 01/05/23 21:08 01/06/23 02:21 36.4 C L 73 20 176/78 H 01/06/23 01:04 69 01/05/23 23:21 36.3 C L 69 18 151/71 H 01/05/23 19:30 36.3 C L 62 18 130/62 01/05/23 15:16 36.2 C L 62 15 145/66 H 01/05/23 14:49 64 01/05/23 11:24 35.9 C L 67 16 169/76 H Pulse Ox O2 Del Method 01/06/23 09:16 97 Room Air 01/06/23 08:00 97 Room Air 01/06/23 07:21 96 Room Air 01/05/23 21:08 Room Air 01/06/23 02:21 97 Room Air 01/06/23 01:04 01/05/23 23:21 96 Room Air 01/05/23 19:30 93 Room Air 01/05/23 15:16 95 Room Air 01/05/23 14:49 01/05/23 11:24 96 Room Air Cardiovascular RRR, no murmur, no edema Respiratory normal respiratory effort, lungs clear to auscultation Pre-Sedation Airway Assessment Smoking Status: Never smoker Hx Sleep Apnea: No Hx Difficult Intubation: No Short, Thick Neck: Yes Thyromental Distance: < 3.5 Finger Breadths Oral Cavity: + Dentures Mallampati Class: III ASA: ASA4 NPO Status Date of Last Intake of Fluids: 01/06/23 Time of Last Intake of Fluids: 00:00 Last Oral Intake of Fluids Comment: sips with meds Date of Last Intake of Solid Food: 01/06/23 Time of Last Intake of Solid Foods: 00:00 Last Intake of Solids Comment: atleast since midnight Procedure Planning Contraindications for Sedation: none Current Medications Reviewed: Yes Notes The planned sedation has been discussed with the patient. Informed Consent was obtained. I have identified the patient, determined the appropriateness of sedation and have assessed the patient immediately prior to the procedure. All medicine(s) and interventions are by my order.
--- NOTE | 2023-01-06 09:51 | Post Anesthesia Assessment ---
Date of Service January 06, 2023 Post Sedation Assessment Vital Signs Temp Pulse Pulse Pulse Resp BP BP 01/06/23 09:45 74 16 138/67 01/06/23 09:35 76 18 176/80 H 01/06/23 09:40 74 16 154/69 H 01/06/23 09:30 82 18 180/81 H 01/06/23 09:16 36.3 C L 74 20 159/106 H 01/06/23 08:00 36.4 C L 72 16 189/75 H 01/06/23 07:21 35.8 C L 71 18 175/77 H 01/05/23 21:08 01/06/23 02:21 36.4 C L 73 20 176/78 H 01/06/23 01:04 69 01/05/23 23:21 36.3 C L 69 18 151/71 H 01/05/23 19:30 36.3 C L 62 18 130/62 01/05/23 15:16 36.2 C L 62 15 145/66 H 01/05/23 14:49 64 01/05/23 11:24 35.9 C L 67 16 169/76 H Pulse Ox O2 Del Method O2 Flow Rate 01/06/23 09:45 100 Oxymask 4 01/06/23 09:35 100 Oxymask 4 01/06/23 09:40 100 Oxymask 4 01/06/23 09:30 100 Oxymask 4 01/06/23 09:16 97 Room Air 01/06/23 08:00 97 Room Air 01/06/23 07:21 96 Room Air 01/05/23 21:08 Room Air 01/06/23 02:21 97 Room Air 01/06/23 01:04 01/05/23 23:21 96 Room Air 01/05/23 19:30 93 Room Air 01/05/23 15:16 95 Room Air 01/05/23 14:49 01/05/23 11:24 96 Room Air Recovery Score Activity: Moves 4 extremities Respiration: Dyspnea/Limited Breathing Circulation: +/-20% PreAnes Value Consciousness: Fully Awake Oxygen Saturation: > 92% On Room Air Post Anesthesia Score: 9 Discharge Sedation Level of Care: Fast Track Phase II Post Sedation Plan On clinical assessment, the patient appears to have tolerated the sedation without complications. Patient is recovering as anticipated. Patient will continue to be monitored by nursing and may be discharged when sedation discharge criteria are met per below protocol. Upon Completions of procedure up to 15 minutes continue every 5 minute vital signs and the P.A.R. score; then discharge to a Phase I or Fast Track to Phase II per the following guidelines: * Discharge Patient to appropriate Phase II area if PAR is 8 or greater or return to pre- procedure baseline. The post - procedure orders will be as directed. * If PAR score is less than 8 or not return to pre-procedure baseline then patient will follow Phase I monitoring till PAR is reached for Phase II. The Phase I may be done in procedure room or may call to secure a Phase I area. * If naloxone or flumazenil are used for reversal, hold in Phase I for continued monitoring from when last reversal dose was given for a minimum of 60 minutes or longer pending the nurse and/or physician discretion of patient condition before discharge to Phase II. Please call the Sedation Physician to re-evaluate and complete post-note for discharge to Phase II area. Do NOT discharge from procedure sedation or Phase 1 until post- sedation evaluation note is complete by procedure /sedation MD Sedation Discharge Instructions to be given to the patient at discharge to home.
--- NOTE | 2023-01-06 10:06 | Operative Report ---
Post Operative Report Pre & Post Diagnosis Operation Date: 01/06/23 10:50 Pre op dx: acute kidney injury Post op dx: acute kidney injury I identified the patient and participated in the time-out.: Yes Procedure Operation Date: 01/06/23 10:50 <Insertion of right internal jugular vein permcath, conscious sedation([id number]) Surgeon Bryson Ramirez MD Acute Coordinator none Estimated Blood Loss 3 Findings Consistent with Post-Op Diagnosis Specimens none Anesthesia Type RN Sedation Complications none Disposition Accompanied Patient To Recovery: No Disposition: Recovery Room Indications This is an 87-year-old male with an acute kidney injury in need of dialysis. PermCath was recommended. I have discussed the risks options and benefits of the procedure with the patient. The patient understands the risks options and benefits and agrees to the procedure. Description of Procedure Patient was taken to the angio suite and placed in the supine position. The right side of the neck and chest wall were prepped and draped in a sterile manner. The patient was identified and a timeout performed. Local anesthesia was then administered to the appropriate areas of the neck and chest wall. Ultrasound was then used to locate the right internal jugular vein. The vein compressed easily, had no filing defects, and was patent. The vein was then punctured under direct ultrasound imaging. A guidewire was then passed centrally under fluoroscopic imaging. A stab wound was then made in the anterior chest wall and a 19 cm permcath was passed from the stab wound on the chest wall to the puncture site on the neck. The puncture site was then dilated till the 14Fr peel away sheath was inserted. The permcath was then inserted through the sheath to a central position in the distal superior vena cava. The peel away sheath was then removed. The catheter was then sutured in place using nylon sutures. The puncture was then closed using a 4-0 Vicryl subcuticular suture. Dermabond was used for a dressing on the puncture site. Both ports aspirated and flushed easily and were then packed with heparin. A sterile dressing was applied to the catheter. The patient left the operation room in satisfactory condition and tolerated the procedure well. All needle and sponge counts were correct at the end of the procedure. I attest to the content of the Intraoperative Record and any orders documented therein. Any exceptions are noted below.
--- NOTE | 2023-01-06 11:07 | Pharmacy Report ---
Pharmacy Glycemic Short Note 2 - Date of Service January 06, 2023 - Glycemic Short BSG Results (Last 24 hours): 01/05/23 01/05/23 01/05/23 11:38 11:41 16:46 Glucose POC Glucose 310 H* 290 H 285 H 01/05/23 01/05/23 01/06/23 21:35 21:36 06:05 Glucose 360 H* POC Glucose 389 H* 387 H* 01/06/23 01/06/23 07:40 07:45 Glucose POC Glucose 400 H* 448 H* OUTPATIENT ANTIDIABETIC REGIMEN: * Lantus 30 units SC BID * Novolog 15 units SC prn HbA1c: 9.5% on 12/30/22 ASSESSMENT: * 87 y/o M admitted for weakness, altered mental status; he has history of DM2 and chronic kidney disease stage 4. Currently with acute renal failure and most likely will be getting dialysis tomorrow. * Patient's blood sugars were reasonably well controlled until 01/04/23. He was started on oral Prednisone 60 mg yesterday and this has caused significant hyperglycemia. Pharmacy consulted today for glycemic management. * BSGs yesterday were [phone] mg/dl. Fasting BSG today was above 400 mg/dl. * Patient had been on Basal insulin 15 units BID until yesterday. This was increased to 20 units BID and he received total 35 units of basal yesterday. * NPH insulin 0.3 units/kg was added this AM to be given with Prednisone to try to prevent hyperglycemia from steroid. * Novolog parameters were tightened * Since patient is now with acute renal failure, serum creat is 7.19 mg/dl this AM, will have to be cautious with dosing basal insulin to avoid accumulation. * Pre-lunch BSG still elevated above 400 mg/dl, so 10 units of IV regular insulin was given as a bolus around noon today. Expect BSGs to trend down this evening. PLAN FOR INPATIENT GLYCEMIC CONTROL: * Basal insulin * Lantus 20 units SQ BID * NPH 25 units SQ this AM with Prednisone * Bolus insulin * NovoLog per scale ACHS or Q6hrs while NPO * Goal Range: Low 110 mg/dL - High 140 mg/dL * Correction Factor: 15 mg/dL/unit * Nutritional / Prandial insulin per carb ratio of 1 unit per 5 grams CHO consumed
[2023-01-06] MEDS ORDERED: INSULIN HUMAN REGULAR PER UNIT 10 UNITS in SYRINGE 9.9 ML IV ONE (12:15)
--- NOTE | 2023-01-06 12:55 | Nephrology Progress Note ---
Date of Service January 06, 2023 Assessment & Plan (1) Acute renal failure: Plan: JUDI on CKD. Kidney dysfunction unfortunately continues to progress. Risks and benefits of dialysis reviewed. Chang was in agreement with HD. He has been on dialysis for JUDI in the past. Vascular surgery was consulted for permcath placement. Orders for first treatment today were entered into the EHR and reviewed with the renal dialysis rn. Medications are appropriately dosed for IHD. JUDI consistent with ATN +/- AIN. Likely AIN from cephalosporins. Continue Prednisone 60 mg daily today. I will plan to taper over the course of the next week. Lopez to remain in place pending follow up with urology. Maintain free water restriction. Oral NaCl can be stopped. (2) Chronic kidney disease, stage 4 (severe): Plan: Creatinine ~1.5 mg/dL at baseline. Followed by Dr. Dixon as outpatient. 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 I have discussed with Chang and his that he has JUDI with guarded prognosis for renal recovery. (3) Acute kidney injury superimposed on CKD: (4) Anemia of chronic disease: Plan: Venofer 200 mg IV x 2 doses completed and additional IV iron will be provided with dialysis today. Epogen 34153 units SQ provided 01/04. Admission and Anticipated Discharge Date Admission Date: December 29, 2022 Subjective No acute events overnight. I met with Chang and his this morning prior to permcath placement. Unfortunately, he remains relatively oliguric without signs of kidney recovery. I discussed the plan of care with Dr. Ramirez. Permcath was placed by Dr. Ramirez without complications. Some oozing of blood from the exit site noted. Chang was seen and evaluated following the procedure. No acute complaints reported. He was eating lunch at the time of my assessment. Denies chest pain or palpitations. Review of Systems Review of Systems: All systems reviewed & are unremarkable except as noted in HPI & below Physical Exam Constitutional: well developed; no acute distress Eyes: no scleral abnormality and no corneal abnormality ENMT: Mouth: no oral mucosal abnormality and oral mucous membranes not dry Neck: normal visual inspection, trachea midline and + thick neck Respiratory: normal respiratory effort Auscultation: lungs clear to auscultation bilaterally (anteriorly) Cardiovascular: Rate/Rhythm: regular rate Heart Sounds: normal S1 and normal S2 Extremities: + edema Musculoskeletal: Extremities: no cyanosis and no clubbing Skin: normal turgor; no jaundice Neurologic: Motor/Sensory: no tremor and no asterixis Psychiatric: Orientation: alert and oriented x 3 Results & Data Vital Signs (Past 12 Hours) Vital Signs Temp Pulse Pulse Pulse Resp BP BP 01/06/23 11:59 36.8 C 53 L 16 136/67 01/06/23 10:20 36.7 C 70 16 147/67 H 01/06/23 09:50 77 16 135/61 01/06/23 09:45 74 16 138/67 01/06/23 09:35 76 18 176/80 H 01/06/23 09:40 74 16 154/69 H 01/06/23 09:30 82 18 180/81 H 01/06/23 09:16 36.3 C L 74 20 159/106 H 01/06/23 08:00 36.4 C L 72 16 189/75 H 01/06/23 07:21 35.8 C L 71 18 175/77 H 01/06/23 02:21 36.4 C L 73 20 176/78 H 01/06/23 01:04 69 Pulse Ox O2 Del Method O2 Flow Rate 01/06/23 11:59 93 Room Air 01/06/23 10:20 94 Room Air 01/06/23 09:50 96 Room Air 01/06/23 09:45 100 Oxymask 4 01/06/23 09:35 100 Oxymask 4 01/06/23 09:40 100 Oxymask 4 01/06/23 09:30 100 Oxymask 4 01/06/23 09:16 97 Room Air 01/06/23 08:00 97 Room Air 01/06/23 07:21 96 Room Air 01/06/23 02:21 97 Room Air 01/06/23 01:04 Laboratory Results Laboratory Results - last 24 hr 01/05/23 01/05/23 01/05/23 16:46 21:35 21:36 WBC RBC Hgb Hct MCV MCH MCHC RDW Std Deviation RDW Coeff of Adrian Plt Count MPV Immature Gran % (Auto) Neut % (Auto) Lymph % (Auto) [place] % (Auto) Eos % (Auto) Baso % (Auto) Neut # (Auto) Lymph # (Auto) [place] # (Auto) Eos # (Auto) Baso # (Auto) Immature Gran # (Auto) Sodium Potassium Chloride Carbon Dioxide Anion Gap BUN Creatinine Est Cr Clr Drug Dosing Est GFR ( Amer) Est GFR (Non-Af Amer) BUN/Creatinine Ratio Glucose POC Glucose 285 H 389 H* 387 H* Calcium Phosphorus Albumin Hep Bs Antigen Hep Bs Ag Confirmation Hep Bs Antibody, Quant 01/06/23 01/06/23 01/06/23 06:05 06:05 07:40 WBC 11.31 H RBC 3.13 L Hgb 9.6 L Hct 27.6 L MCV 88.2 MCH 30.7 MCHC 34.8 RDW Std Deviation 40.8 RDW Coeff of Adrian 12.6 Plt Count 291 MPV 9.2 L Immature Gran % (Auto) 2.3 Neut % (Auto) 88.7 Lymph % (Auto) 6.1 [place] % (Auto) 2.7 Eos % (Auto) 0.0 Baso % (Auto) 0.2 Neut # (Auto) 10.03 H Lymph # (Auto) 0.69 L [place] # (Auto) 0.31 Eos # (Auto) 0.00 Baso # (Auto) 0.02 Immature Gran # (Auto) 0.26 H Sodium 122 L Potassium 4.4 Chloride 92 L Carbon Dioxide 17 L Anion Gap 13 H BUN 96 H Creatinine 7.19 H* D Est Cr Clr Drug Dosing 6.8 Est GFR ( Amer) 7.2 Est GFR (Non-Af Amer) 6.2 BUN/Creatinine Ratio 13.4 Glucose 360 H* POC Glucose 400 H* Calcium 7.9 L Phosphorus 8.7 H Albumin 2.4 L Hep Bs Antigen Hep Bs Ag Confirmation Hep Bs Antibody, Quant 01/06/23 01/06/23 01/06/23 07:45 11:06 11:09 WBC RBC Hgb Hct MCV MCH MCHC RDW Std Deviation RDW Coeff of Adrian Plt Count MPV Immature Gran % (Auto) Neut % (Auto) Lymph % (Auto) [place] % (Auto) Eos % (Auto) Baso % (Auto) Neut # (Auto) Lymph # (Auto) [place] # (Auto) Eos # (Auto) Baso # (Auto) Immature Gran # (Auto) Sodium Potassium Chloride Carbon Dioxide Anion Gap BUN Creatinine Est Cr Clr Drug Dosing Est GFR ( Amer) Est GFR (Non-Af Amer) BUN/Creatinine Ratio Glucose POC Glucose 448 H* 432 H* 431 H* Calcium Phosphorus Albumin Hep Bs Antigen Hep Bs Ag Confirmation Hep Bs Antibody, Quant 01/06/23 11:41 WBC RBC Hgb Hct MCV MCH MCHC RDW Std Deviation RDW Coeff of Adrian Plt Count MPV Immature Gran % (Auto) Neut % (Auto) Lymph % (Auto) [place] % (Auto) Eos % (Auto) Baso % (Auto) Neut # (Auto) Lymph # (Auto) [place] # (Auto) Eos # (Auto) Baso # (Auto) Immature Gran # (Auto) Sodium Potassium Chloride Carbon Dioxide Anion Gap BUN Creatinine Est Cr Clr Drug Dosing Est GFR ( Amer) Est GFR (Non-Af Amer) BUN/Creatinine Ratio Glucose POC Glucose Calcium Phosphorus Albumin Hep Bs Antigen Pending Hep Bs Ag Confirmation Pending Hep Bs Antibody, Quant Pending PG Care Time/CCT Total # of Minutes Spent Total Time Spent with Patient: Total time spent is greater than 50% in coordination of care (as documented) at patient's floor/unit and/or counseling patient: Coding Level of Care Code 34904 SUB INP/OBS CARE 3/50MIN Diagnoses Acute renal failure N17.9 Acute renal failure type: unspecified Chronic kidney disease, stage 4 (severe) N18.4 Acute kidney injury superimposed on CKD N17.9; N18.9 Anemia of chronic disease D63.8 (1) Acute renal failure Acute renal failure type: unspecified Qualified Code(s): N17.9 - Acute kidney failure, unspecified
[2023-01-06] MEDS ORDERED: IRON SUCROSE 100 MG in SYRINGE 0 ML IV ONE (13:00)
--- NOTE | 2023-01-06 17:49 | Electrocardiogram Report ---
Test Reason : Blood Pressure : / mmHG Vent. Rate : 070 BPM Atrial Rate : 070 BPM P-R Int : 264 ms QRS Dur : 176 ms QT Int : 468 ms P-R-T Axes : 060 -59 022 degrees QTc Int : 505 ms Sinus rhythm with 1st degree A-V block Right bundle branch block Left anterior fascicular block Bifascicular block Abnormal ECG When compared with ECG of 02-JAN-2023 17:00, Sinus rhythm has replaced Ectopic atrial rhythm T wave inversion less evident in Anterior leads Confirmed by Travis Holloway ([id number]) on 01/06/2023 5:49:24 PM Referred By: REFERRED SELF Confirmed By:Asim Holloway
[2023-01-06] MEDS: ROSUVASTATIN CALCIUM 5 MG TAB PO SCH (21:13)
[2023-01-06] MEDS: APIXABAN 2.5 MG TAB PO SCH (21:13)
[2023-01-06] MEDS: FINASTERIDE 5 MG TAB PO SCH (21:14)
[2023-01-06] MEDS: TAMSULOSIN HCL 0.4 MG CAP PO SCH (21:14)
[2023-01-07] MEDS: INSULIN ASPART PER UNIT CHARGE SC SCH ×6 (01:11→20:30)
[2023-01-07] MEDS: ACETAMINOPHEN 500 MG TAB PO SCH ×3 (02:56→20:14)
[2023-01-07] MEDS: LEVOTHYROXINE SODIUM 88 MCG TABLET PO SCH (04:30)
[2023-01-07 06:45] LABS: Basophils # (auto) 0.01 K/uL (0-0.2); Basophils % (auto) 0.1 %; Hematocrit (blood only) 24.6 % (42.0-52.0); Hemoglobin 8.6 g/dl (14.0-18.0); Immature Granulocytes # (auto) 0.23 K/uL (0.01-0.20); Immature Granulocytes % (auto) 2.2 %; Lymphocytes # (auto) 0.96 K/uL (1.2-3.4); Lymphocytes % (auto) 9.2 %; Mean Corpuscular Hemoglobin 30.9 pg (25.0-34.0); Mean Corpuscular Volume 88.5 fL (80.0-100.0); Mean Platelet Volume 9.2 fL (9.4-12.4); Monocytes # (auto) 0.55 K/uL (0.11-0.59); Monocytes % (auto) 5.3 %; Neutrophils # (auto) 8.72 K/uL (1.40-6.50); Neutrophils % (auto) 83.2 %; Platelet Count 276 K/uL (130-400); RDW Coefficient of Variation 12.9 % (11.5-14.5); RDW Standard Deviation 41.5 fL (36.4-46.3); Red Blood Count 2.78 M/uL (4.70-6.10); White Blood Count 10.47 K/ul (4.8-10.8)
--- NOTE | 2023-01-07 06:59 | Hospitalist Progress Note ---
"Date of Service January 07, 2023 Assessment & Plan (1) Left leg weakness: Plan: Renal Failure | CKD Stage IV - creatine went from 2.3 to 4.1 in 2 days (baseline 1.8-2). Cr this morning at 6.45 - CT abdomen/pelvis without stones of nephrolithiasis or hydronephrosis - Consulted nephrology, appreciate recommendations - Concern of possible ATN and/or AIN, urine studies with granular casts and pyuria. Added cephalosporins to allergy list due to renal decline possibly secondary to cephalosporin use. - Continue Prednisone, 40mg today - Strict I's & O's. - Producing minimal quantities of urine - Permacath placed 01/06, first session of HD on 01/06, plan for another session of HD today - Holding Bumex, losartan, statin renally dosed *Chest Pain* - While in the middle of his session of HD today, he expressed that he was having right sided chest pain. No radiation. Denied dyspnea. Vital signs stable throughout. - EKG without any acute ischemic changes, trop= 16. Did get nitro. Pain has resolved. - Most likely pain associated with perm catheter placement yesterday - continue to monitor on tele Hypervolemic Hyponatremia - Sodium of 122 on 01/06; up to 130 this morning - Secondary to renal failure, excess free water-> improved with HD yesterday - Continue to trend BMP Altered Mental Status: Metabolic Encephalopathy - Patient catatonic on 01/02 p.m. code purple called: vitals stable and CT head normal - Episodes of delirium, could attribute to hospital related delirium vs. uncontrolled pain vs. depression - Also on Klonopin, gabapentin chronically. Episode of catatonia 01/02 afternoon - Will hold further gabapentin Left Leg Pain, Weakness - Pain began abruptly over 1 week ago, no known inciting event but patient was alone at time of onset and has poor recollection of that time - CT Lumbar spine on admission without acute changes - Left leg pain on 12/30/22 with more significant pain with manipulation of hip/rotation and radiates to groin raising concern of hip injury - Hip/Pelvis XR completed: no fractures/acute ana abnormalities - Had been able to participate with PT and leg pain was improved on 12/31, but since then pain is more intense and nonspecific throughout left LE. - Ortho consulted- no plans for immediate intervention but consider outpatient hip injection -Scheduled Tylenol, Morphine 2mg q4h PRN DM2 - Home regimen; Insulin aspart 15 units with each meal in addition to his home Lantus 30 units BID - Increased insulin requirement secondary to steroids - Hemoglobin a1c= 11.5 on 09/2022, repeat on admission a1c 9.5% - Pharmacy consulted for glycemic control; SSI with carb ratio of 7 and correction factor of 20, Lantus 20 units BID, Novolin 25 units daily UTI- Resolved - UA consistent with UTI, urine culture from 12/27 growing Klebsiella that was susceptible to ceftriaxone - Urine culture from admission: final culture with no growth - Considering recent history of multiple UTIs, bacteremia- completed course of antibiotics Anxiety - Continue clonazepam Hypothyroidism - Continue levothyroxine - TSH= 1.9 on 12/01 Heart failure with preserved ejection fraction, CAD - last echo (11/10/2022) LVEF 60-65%, moderate - Does not appear to be hypervolemic - continue metoprolol, statin, aspirin, hold losartan in the setting of JUDI COPD - continue Breo, Incruse - Albuterol prn Paroxysmal A-fib - continue Eliquis and metoprolol GERD - continue pantoprazole * Discussed with patient's about plan for after discharge, they would consider home health but would prefer not [facility]. Diet: Low K, carb consistent, heart healthy Dispo: Med Surg with tele Code: DNR/DNI VTE Prophylaxis: Eliquis (2) Acute UTI (urinary tract infection): (3) Anemia of chronic disease: (4) Chronic kidney disease, stage 4 (severe): (5) Acute kidney injury: (6) Hyperkalemia: (7) Hypothyroidism: (8) Hypertension: (9) Dyslipidemia: (10) Paroxysmal atrial fibrillation: (11) Anxiety: Admission and Anticipated Discharge Date Admission Date: December 29, 2022 Supervising Physician Co-Signing Physician Notes I personally examined the patient and verified aguayo points of history and exam, discussed case, and agree with decision making and plan documented by Dr. Christian. Patient now receiving dialysis for ARF, remains oliguric, nephrology following. Patient reported right sided chest pain and bleeding from catheter, dialysis was discontinued early this morning due to symptoms, ECG obtained, troponin negative, will continue to monitor closely. Plan to revisit discussion of goals of care with family. Subjective Chang was doing well this morning. No complaints, no events overnight. Perm catheter placed yesterday day and he has his first session of HD, tolerated we ll. Review of Systems Review of Systems: As per above Physical Exam Physical Exam: Constitutional: well-appearing, no acute distress HEENT: NCAT, no conjunctival injection CV: regular rhythm, no murmur appreciated, extremities well-perfused, +1 pitting edema left LE to mid betts, trace LE edema on right Resp: CTABL, no wheezes/rales/rhonchi appreciated, no increased work of breathing GI: soft, nondistended, nontender ; Lopez catheter in place MSK: no gross deformities appreciated Skin: warm, dry, no rash appreciated, perm catheter in place, minimal bleeding at site. Neuro: alert, oriented, no focal neurologic deficit appreciated Results & Data Results & Data Vital Signs (Past 12 Hours) Vital Signs Temp Pulse Pulse Resp BP Pulse Ox O2 Del Method 01/07/23 02:48 36.4 C L 55 L 16 145/69 H 95 Room Air 01/07/23 01:12 Room Air 01/06/23 22:42 35.8 C L 58 L 16 128/53 L 95 Room Air 01/06/23 22:00 54 L 01/06/23 19:13 35.5 C L 56 L 16 146/61 H 97 Room Air Resident Activity Tracking Resident Involvement: Resident Care Provided Care Provided: Adult Hospital Medicine (7) Hypothyroidism Hypothyroidism type: unspecified Qualified Code(s): E03.9 - Hypothyroidism, unspecified (8) Hypertension Hypertension type: essential hypertension Qualified Code(s): I10 - Essential (primary) hypertension"
[2023-01-07 07:22] LABS: Albumin Level 2.3 gm/dl (3.4-5.0); BUN Creatinine Ratio 12.4 (10-20); Calcium 7.9 mg/dl (8.6-10.3); Creatinine Clr Calc Pharmacy 8.3 ml/min; Est GFR (African American) 8.2 ml/min; Est GFR (Non-African American) 7.1 ml/min; Phosphorus 7.8 mg/dl (2.5-4.9); Potassium 4.6 mmol/L (3.5-5.1)
--- NOTE | 2023-01-07 08:30 | Nephrology Progress Note ---
Date of Service January 07, 2023 Assessment & Plan (1) Acute renal failure: Plan: * Oliguric JUDI/CKD likely from cephalosporin induced AIN * Will reduce Prednisone to 40 mg daily * HD today for continued urea clearance * PRP in am. Continue to monitor UO * h/o BPH w/ obstruction. 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 Followed by Dr. Dixon as outpatient (3) Anemia of chronic disease: Plan: * Has received IV Venofer and SHANNEN this admission * Will obtain iron studies w/ next lab draw Admission and Anticipated Discharge Date Admission Date: December 29, 2022 Subjective Mr. Monroy was evaluated in his hospital room this morning. He denied fever or flank discomfort. He is tolerating steroid therapy without GI upset. Mr Monroy voiced no new medical concerns Review of Systems Constitutional: no fever Eyes: no problem reported Ear, Nose, Mouth, Throat: no problem reported Respiratory: no cough and no dyspnea Cardiovascular: no chest pain Gastrointestinal: no abdominal pain, no nausea, no vomiting and no diarrhe a/loose stools Physical Exam Constitutional: not in distress Eyes: PERRL, conjunctivae normal, anicteric sclerae ENMT: external ear and nose normal, oropharynx normal Neck: trachea midline, no thyromegaly R IJ TCC with blood tinged dressing Respiratory: normal respiratory effort, lungs clear to auscultation Cardiovascular: Rate/Rhythm: regular rate and regular rhythm Extremities: + edema (trace LE swelling) Gastrointestinal (Abdomen): normal bowel sounds, soft, nontender, no hepatosplenomegaly Neurologic: Speech / Cognition: normal speech and normal cognition Results & Data Vital Signs (Past 12 Hours) Vital Signs Temp Pulse Pulse Resp BP Pulse Ox O2 Del Method 01/07/23 07:21 54 L 01/07/23 02:48 36.4 C L 55 L 16 145/69 H 95 Room Air 01/07/23 01:12 Room Air 01/06/23 22:42 35.8 C L 58 L 16 128/53 L 95 Room Air 01/06/23 22:00 54 L Laboratory Results Laboratory Tests 01/07/23 01/07/23 06:03 06:03 WBC 10.47 Hgb 8.6 L Hct 24.6 L Plt Count 276 Sodium 130 L Potassium 4.6 Chloride 99 Carbon Dioxide 21 BUN 80 H Creatinine 6.45 H* D Glucose 111 H PG Care Time/CCT Total # of Minutes Spent Total Time Spent with Patient: Total time spent is greater than 50% in coordination of care (as documented) at patient's floor/unit and/or counseling patient: Coding Level of Care Code 60627 SUB INP/OBS CARE 3/50MIN Diagnoses Acute renal failure N17.9 Acute renal failure type: unspecified Chronic kidney disease, stage 4 (severe) N18.4 Anemia of chronic disease D63.8 (1) Acute renal failure Acute renal failure type: unspecified Qualified Code(s): N17.9 - Acute kidney failure, unspecified
[2023-01-07] MEDS: predniSONE 20 MG TAB PO SCH (08:43)
[2023-01-07] MEDS: PANTOprazole 40 MG TAB PO SCH ×2 (08:44→20:13)
[2023-01-07] MEDS: UMECLIDINIUM/VILANTEROL 62.5/25MCG 7 PUFFS/INHALER INH SCH (08:44)
[2023-01-07] MEDS: ASPIRIN 81 MG ECTAB PO SCH (08:44)
[2023-01-07] MEDS: CALCIUM ACETATE 667 MG CAP/TAB PO SCH ×3 (08:44→17:34)
[2023-01-07] MEDS: FLUTICASONE/VILANTEROL 200/25MCG 14 PUFFS/INHALER INH SCH (08:45)
[2023-01-07] MEDS: APIXABAN 2.5 MG TAB PO SCH ×2 (08:45→20:14)
[2023-01-07] MEDS ORDERED: INSULIN HUMAN NPH SC SCH (09:00)
[2023-01-07] MEDS: LANTUS PER UNIT CHARGE SQ SCH ×2 (09:12→20:30)
[2023-01-07] MEDS: clonazePAM 1 MG TAB PO SCH ×2 (09:13→20:14)
[2023-01-07 10:08] LABS: HBSAG NON-REACTIVE (NON-REACTIVE); Hepatitis B Surface Ab, Quant <5 mIU/mL (> OR = 10)
[2023-01-07] MEDS ORDERED: NITROGLYCERIN SL 0.4 MG/TAB TAB ONE (11:52)
[2023-01-07] MEDS: METOPROLOL TARTRATE 25 MG TAB PO SCH ×2 (12:56→20:14)
--- NOTE | 2023-01-07 13:55 | Pharmacy Report ---
Pharmacy Glycemic Short Note 2 - Date of Service January 07, 2023 - Glycemic Short BSG Results (Last 24 hours): 01/06/23 01/06/23 01/07/23 16:09 20:13 01:08 Glucose POC Glucose 192 H 149 H 157 H 01/07/23 01/07/23 01/07/23 04:15 06:03 08:07 Glucose 111 H POC Glucose 130 H 110 H 01/07/23 12:37 Glucose POC Glucose 131 H OUTPATIENT ANTIDIABETIC REGIMEN: * Lantus 30 units SC BID * Novolog 15 units SC prn HbA1c: 9.5% on 12/30/22 ASSESSMENT: 01/07 * Patient received total of 123 units of insulin yesterday, of which 40 units were Lantus and 25 units were NPH to cover prednisone * Fasting BSG much improved 110 mg/dL - will scale back on basal. BSGs trending down yesterday with addition of NPH, will continue same NPH dose today. Minimal PO intake noted today * Loosened novolog parameters slightly this AM * Prednisone changed to 40 mg, plan to scale back on NPH dose 01/06 * 87 y/o M admitted for weakness, altered mental status; he has history of DM2 and chronic kidney disease stage 4. Currently with acute renal failure and most likely will be getting dialysis tomorrow. * Patient's blood sugars were reasonably well controlled until 01/04/23. He was started on oral Prednisone 60 mg yesterday and this has caused significant hyperglycemia. Pharmacy consulted today for glycemic management. * BSGs yesterday were [phone] mg/dl. Fasting BSG today was above 400 mg/dl. * Patient had been on Basal insulin 15 units BID until yesterday. This was increased to 20 units BID and he received total 35 units of basal yesterday. * NPH insulin 0.3 units/kg was added this AM to be given with Prednisone to try to prevent hyperglycemia from steroid. * Novolog parameters were tightened * Since patient is now with acute renal failure, serum creat is 7.19 mg/dl this AM, will have to be cautious with dosing basal insulin to avoid accumulation. * Pre-lunch BSG still elevated above 400 mg/dl, so 10 units of IV regular insulin was given as a bolus around noon today. Expect BSGs to trend down this evening. PLAN FOR INPATIENT GLYCEMIC CONTROL: * Basal insulin * Lantus 20 units QAM, 10-15 units HS * NPH 25 units SQ this AM with Prednisone 60 mg * Bolus insulin * NovoLog per scale ACHS or Q6hrs while NPO * Goal Range: Low 110 mg/dL - High 140 mg/dL * Correction Factor: 20 mg/dL/unit * Nutritional / Prandial insulin per carb ratio of 1 unit per 7 grams CHO consumed
[2023-01-07] MEDS: TAMSULOSIN HCL 0.4 MG CAP PO SCH (20:13)
[2023-01-07] MEDS: ROSUVASTATIN CALCIUM 5 MG TAB PO SCH (20:14)
[2023-01-07] MEDS: FINASTERIDE 5 MG TAB PO SCH (20:14)
[2023-01-08] MEDS: ALBUTEROL HFA 8 GM INHALER INH PRN ×4 (00:57→19:40)
[2023-01-08] MEDS: ACETAMINOPHEN 500 MG TAB PO SCH ×3 (03:41→20:46)
[2023-01-08] MEDS: LEVOTHYROXINE SODIUM 88 MCG TABLET PO SCH (06:23)
--- NOTE | 2023-01-08 06:32 | Hospitalist Progress Note ---
"Date of Service January 08, 2023 Assessment & Plan (1) Left leg weakness: Plan: Renal Failure | CKD Stage IV - creatine went from 2.3 to 4.1 in 2 days (baseline 1.8-2). Cr this morning at 6.45 - CT abdomen/pelvis without stones of nephrolithiasis or hydronephrosis - Consulted nephrology, appreciate recommendations - Concern of possible ATN and/or AIN, urine studies with granular casts and pyuria. Added cephalosporins to allergy list due to renal decline possibly secondary to cephalosporin use. - Continue Prednisone, 40mg today - Strict I's & O's. - Producing minimal quantities of urine, although has slowly been improving - Permacath placed 01/06, first session of HD on 01/06, plan for another session of HD tomorrow morning - Holding Bumex, losartan, statin renally dosed *Chest Pain*resolved - While in the middle of his session of HD 01/08, he expressed that he was having right sided chest pain. No radiation. Denied dyspnea. Vital signs stable throughout. - EKG without any acute ischemic changes, trop= 16. Did get nitro. Pain has resolved. - Most likely pain associated with perm catheter placement - continue to monitor on tele Hypervolemic Hyponatremia - Sodium of 122 on 01/06; up to 133 this morning - Secondary to renal failure, excess free water-> improved with HD - Continue to trend BMP Altered Mental Status: Metabolic Encephalopathy - Patient catatonic on 01/02 p.m. code purple called: vitals stable and CT head normal - Episodes of delirium, could attribute to hospital related delirium vs. uncontrolled pain vs. depression - Also on Klonopin, gabapentin chronically. Episode of catatonia 01/02 afternoon - Will hold further gabapentin Left Leg Pain, Weakness - Pain began abruptly over 1 week ago, no known inciting event but patient was alone at time of onset and has poor recollection of that time - CT Lumbar spine on admission without acute changes - Left leg pain on 12/30/22 with more significant pain with manipulation of hip/rotation and radiates to groin raising concern of hip injury - Hip/Pelvis XR completed: no fractures/acute ana abnormalities - Had been able to participate with PT and leg pain was improved on 12/31, but since then pain is more intense and nonspecific throughout left LE. - Ortho consulted- no plans for immediate intervention but consider outpatient hip injection -Scheduled Tylenol, Morphine 2mg q4h PRN DM2 - Home regimen; Insulin aspart 15 units with each meal in addition to his home Lantus 30 units BID - Increased insulin requirement secondary to steroids - Hemoglobin a1c= 11.5 on 09/2022, repeat on admission a1c 9.5% - Pharmacy consulted for glycemic control UTI- Resolved - UA consistent with UTI, urine culture from 12/27 growing Klebsiella that was susceptible to ceftriaxone - Urine culture from admission: final culture with no growth - Considering recent history of multiple UTIs, bacteremia- completed course of antibiotics Anxiety - Continue clonazepam Hypothyroidism - Continue levothyroxine - TSH= 1.9 on 12/01 Heart failure with preserved ejection fraction, CAD - last echo (11/10/2022) LVEF 60-65%, moderate - Does not appear to be hypervolemic - continue metoprolol, statin, aspirin, hold losartan in the setting of JUDI COPD - continue Breo, Incruse - Albuterol prn Paroxysmal A-fib - continue Eliquis and metoprolol GERD - continue pantoprazole * Discussed with patient's about plan for after discharge, they would consider home health but would prefer not [facility]. Diet: Low K, carb consistent, heart healthy Dispo: Med Surg with tele Code: DNR/DNI VTE Prophylaxis: Eliquis (2) Acute UTI (urinary tract infection): (3) Anemia of chronic disease: (4) Chronic kidney disease, stage 4 (severe): (5) Acute kidney injury: (6) Hyperkalemia: (7) Hypothyroidism: (8) Hypertension: (9) Dyslipidemia: (10) Paroxysmal atrial fibrillation: (11) Anxiety: Admission and Anticipated Discharge Date Admission Date: December 29, 2022 Supervising Physician Co-Signing Physician Notes I personally examined the patient and verified aguayo points of history and exam, discussed case, and agree with decision making and plan documented by Dr. Christian. Patient and family would benefit from discussion in regards to goals of care, possibly palliative consultation. Patient will likely now require long- term HD as well as physical rehabilitation. Concern expressed for multiple hospitalizations and safety at home. Tracy Downing is doing well this morning. States he had some trouble sleeping last night, but otherwise no complaints. Denies any further episodes of chest pain. Review of Systems Review of Systems: As per above Physical Exam Physical Exam: Constitutional: well-appearing, no acute distress HEENT: NCAT, no conjunctival injection CV: regular rhythm, no murmur appreciated, extremities well-perfused, +1 pitting edema left LE to mid betts, trace LE edema on right Resp: CTABL, no wheezes/rales/rhonchi appreciated, no increased work of breathing GI: soft, nondistended, nontender ; Lopez catheter in place MSK: no gross deformities appreciated Skin: warm, dry, no rash appreciated, perm catheter in place, minimal bleeding at site. Neuro: alert, oriented, no focal neurologic deficit appreciated Results & Data Results & Data Vital Signs (Past 12 Hours) Vital Signs Temp Pulse Pulse Resp BP BP Pulse Ox 01/08/23 03:00 36.4 C L 68 18 177/61 H 94 01/07/23 21:57 67 01/08/23 01:00 70 18 95 01/07/23 20:00 01/07/23 23:44 36.4 C L 66 18 159/70 H 95 01/07/23 19:14 36.4 C L 63 18 150/70 H 96 O2 Del Method 01/08/23 03:00 Room Air 01/07/23 21:57 01/08/23 01:00 Room Air 01/07/23 20:00 Room Air 01/07/23 23:44 Room Air 01/07/23 19:14 Room Air Resident Activity Tracking Resident Involvement: Resident Care Provided Care Provided: Adult Hospital Medicine (7) Hypothyroidism Hypothyroidism type: unspecified Qualified Code(s): E03.9 - Hypothyroidism, unspecified (8) Hypertension Hypertension type: essential hypertension Qualified Code(s): I10 - Essential (primary) hypertension"
[2023-01-08 08:47] LABS: Basophils # (auto) 0.02 K/uL (0-0.2); Basophils % (auto) 0.2 %; Hemoglobin 9.1 g/dl (14.0-18.0); Immature Granulocytes # (auto) 0.49 K/uL (0.01-0.20); Immature Granulocytes % (auto) 4.3 %; Lymphocytes # (auto) 1.23 K/uL (1.2-3.4); Lymphocytes % (auto) 10.9 %; Mean Corpuscular Hemoglobin 30.7 pg (25.0-34.0); Mean Corpuscular Hgb Conc 33.7 g/dL (32.0-36.0); Mean Corpuscular Volume 91.2 fL (80.0-100.0); Mean Platelet Volume 9.1 fL (9.4-12.4); Monocytes # (auto) 0.83 K/uL (0.11-0.59); Monocytes % (auto) 7.3 %; Neutrophils # (auto) 8.75 K/uL (1.40-6.50); Neutrophils % (auto) 77.3 %; Platelet Count 300 K/uL (130-400); RDW Coefficient of Variation 13.4 % (11.5-14.5); RDW Standard Deviation 44.2 fL (36.4-46.3); Red Blood Count 2.96 M/uL (4.70-6.10); White Blood Count 11.32 K/ul (4.8-10.8)
[2023-01-08] MEDS: CALCIUM ACETATE 667 MG CAP/TAB PO SCH ×3 (08:49→18:10)
[2023-01-08] MEDS: PANTOprazole 40 MG TAB PO SCH ×2 (08:49→20:48)
[2023-01-08] MEDS: APIXABAN 2.5 MG TAB PO SCH ×2 (08:49→20:48)
[2023-01-08] MEDS: UMECLIDINIUM/VILANTEROL 62.5/25MCG 7 PUFFS/INHALER INH SCH (08:49)
[2023-01-08] MEDS: predniSONE 20 MG TAB PO SCH (08:49)
[2023-01-08] MEDS: METOPROLOL TARTRATE 25 MG TAB PO SCH ×2 (08:49→20:47)
[2023-01-08] MEDS: ASPIRIN 81 MG ECTAB PO SCH (08:49)
[2023-01-08] MEDS: FLUTICASONE/VILANTEROL 200/25MCG 14 PUFFS/INHALER INH SCH (08:49)
--- NOTE | 2023-01-08 08:49 | Nephrology Progress Note ---
Date of Service January 08, 2023 Assessment & Plan (1) Acute renal failure: Plan: * JUDI/CKD likely from cephalosporin induced AIN * UO improved to 425 cc last shift * Continue Prednisone 40 mg daily * PRP in am. Continue to monitor UO * Will schedule next HD for am * h/o BPH w/ obstruction. 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 Followed by Dr. Dixon as outpatient (3) Anemia of chronic disease: Plan: * Has received IV Venofer and SHANNEN this admission * Will obtain iron studies w/ next lab draw Admission and Anticipated Discharge Date Admission Date: December 29, 2022 Subjective Mr. Monroy was evaluated in his hospital room this morning. He was dialyzed yesterday but developed chest discomfort. Dialysis was stopped 2 hours into treatment. Only 500 cc UF obtained. ECG was NSR w/ RBBB. Troponin was WNL. Mr. Monroy currently denies angina, dyspnea. He voices no new medical concerns this morning Review of Systems Constitutional: no fever Eyes: no problem reported Ear, Nose, Mouth, Throat: no problem reported Respiratory: no cough and no dyspnea Cardiovascular: no chest pain Gastrointestinal: no abdominal pain, no nausea, no vomiting and no diarrhea/loose stools Physical Exam Constitutional: not in distress Eyes: PERRL, conjunctivae normal, anicteric sclerae ENMT: external ear and nose normal, oropharynx normal Neck: trachea midline, no thyromegaly R IJ TCC w/ clean dry dressing Respiratory: normal respiratory effort, lungs clear to auscultation Cardiovascular: Rate/Rhythm: regular rate and regular rhythm Extremities: + edema (trace LE swelling) Gastrointestinal (Abdomen): normal bowel sounds, soft, nontender, no hepatosplenomegaly Neurologic: Speech / Cognition: normal speech and normal cognition Results & Data Vital Signs (Past 12 Hours) Vital Signs Temp Pulse Pulse Pulse Resp BP BP 01/08/23 08:47 36.3 C L 66 20 185/73 H 01/08/23 06:30 36.3 C L 63 16 183/77 H 01/08/23 07:30 51 L 01/08/23 03:00 36.4 C L 68 18 177/61 H 01/07/23 21:57 67 01/08/23 01:00 70 18 01/07/23 23:44 36.4 C L 66 18 159/70 H Pulse Ox O2 Del Method 01/08/23 08:47 95 Room Air 01/08/23 06:30 97 Room Air 01/08/23 07:30 01/08/23 03:00 94 Room Air 01/07/23 21:57 01/08/23 01:00 95 Room Air 01/07/23 23:44 95 Room Air Laboratory Results Laboratory Tests 01/07/23 01/08/23 01/08/23 12:04 07:35 07:35 WBC 11.32 H Hgb 9.1 L Hct 27.0 L Plt Count 300 Sodium 133 L Potassium 4.0 Chloride 102 Carbon Dioxide 23 BUN 60 H D Creatinine 4.74 H* D Glucose 144 H Troponin I High Sens 16.7 Laboratory Tests 01/08/23 07:35 Transferrin % Sat 35 Ferritin 550.3 H PG Care Time/CCT Total # of Minutes Spent Total Time Spent with Patient: Total time spent is greater than 50% in coordination of care (as documented) at patient's floor/unit and/or counseling patient: Coding Level of Care Code 06152 SUB INP/OBS CARE 3/50MIN Diagnoses Acute renal failure N17.9 Acute renal failure type: unspecified Chronic kidney disease, stage 4 (severe) N18.4 Anemia of chronic disease D63.8 (1) Acute renal failure Acute renal failure type: unspecified Qualified Code(s): N17.9 - Acute kidney failure, unspecified
[2023-01-08] MEDS: INSULIN ASPART PER UNIT CHARGE SC SCH ×4 (08:54→20:46)
[2023-01-08] MEDS: LANTUS PER UNIT CHARGE SQ SCH ×2 (08:54→20:47)
[2023-01-08] MEDS: clonazePAM 1 MG TAB PO SCH ×2 (08:54→20:46)
[2023-01-08 08:55] LABS: BUN Creatinine Ratio 12.7 (10-20); Calcium 7.8 mg/dl (8.6-10.3); Creatinine Clr Calc Pharmacy 12.1 ml/min; Est GFR (African American) 11.9 ml/min; Est GFR (Non-African American) 10.3 ml/min
[2023-01-08] MEDS ORDERED: INSULIN HUMAN NPH SC SCH (09:00)
[2023-01-08 09:16] LABS: Ferritin 550.3 ng/ml (8-388)
--- NOTE | 2023-01-08 11:23 | Electrocardiogram Report ---
Test Reason : Blood Pressure : / mmHG Vent. Rate : 072 BPM Atrial Rate : 072 BPM P-R Int : 204 ms QRS Dur : 170 ms QT Int : 480 ms P-R-T Axes : 049 -52 014 degrees QTc Int : 525 ms Normal sinus rhythm Left axis deviation Right bundle branch block Abnormal ECG When compared with ECG of 06-JAN-2023 10:36, DE interval has decreased T wave inversion more evident in Anterior leads Confirmed by Dallin Olmstead ([id number]) on 01/08/2023 11:22:52 AM Referred By: REFERRED SELF Confirmed By:Dallin Olmstead
--- NOTE | 2023-01-08 12:01 | Pharmacy Report ---
Pharmacy Glycemic Short Note 2 - Date of Service January 08, 2023 - Glycemic Short BSG Results (Last 24 hours): 01/07/23 01/07/23 01/07/23 12:37 17:12 20:12 Glucose POC Glucose 131 H 161 H 168 H 01/08/23 01/08/23 01/08/23 03:05 07:35 08:22 Glucose 144 H POC Glucose 189 H 153 H 01/08/23 11:53 Glucose POC Glucose 199 H OUTPATIENT ANTIDIABETIC REGIMEN: * Lantus 30 units SC BID * Novolog 15 units SC prn HbA1c: 9.5% on 12/30/22 ASSESSMENT: 01/08 * Patient received total of 71 units of insulin yesterday, of which 30 units were basal insulin, 25 units NPH to cover steroids * Fasting BSG 144 mg/dL - steroids decreasing to prednisone 40 mg today, plan to scale back on NPH. Continue with scale for HS basal insulin, will give slightly lower dose this AM * No change to CF/CR 01/07 * Patient received total of 123 units of insulin yesterday, of which 40 units were Lantus and 25 units were NPH to cover prednisone * Fasting BSG much improved 110 mg/dL - will scale back on basal. BSGs trending down yesterday with addition of NPH, will continue same NPH dose today. Minimal PO intake noted today * Loosened novolog parameters slightly this AM * Prednisone changed to 40 mg, plan to scale back on NPH dose 01/06 * 87 y/o M admitted for weakness, altered mental status; he has history of DM2 and chronic kidney disease stage 4. Currently with acute renal failure and most likely will be getting dialysis tomorrow. * Patient's blood sugars were reasonably well controlled until 01/04/23. He was started on oral Prednisone 60 mg yesterday and this has caused significant hyperglycemia. Pharmacy consulted today for glycemic management. * BSGs yesterday were [phone] mg/dl. Fasting BSG today was above 400 mg/dl. * Patient had been on Basal insulin 15 units BID until yesterday. This was increased to 20 units BID and he received total 35 units of basal yesterday. * NPH insulin 0.3 units/kg was added this AM to be given with Prednisone to try to prevent hyperglycemia from steroid. * Novolog parameters were tightened * Since patient is now with acute renal failure, serum creat is 7.19 mg/dl this AM, will have to be cautious with dosing basal insulin to avoid accumulation. * Pre-lunch BSG still elevated above 400 mg/dl, so 10 units of IV regular insulin was given as a bolus around noon today. Expect BSGs to trend down this evening. PLAN FOR INPATIENT GLYCEMIC CONTROL: * Basal insulin * Lantus 15 units QAM, 10-15 units HS * NPH 20 units SQ this AM with Prednisone 40 mg * Bolus insulin * NovoLog per scale ACHS or Q6hrs while NPO * Goal Range: Low 110 mg/dL - High 140 mg/dL * Correction Factor: 20 mg/dL/unit * Nutritional / Prandial insulin per carb ratio of 1 unit per 7 grams CHO consumed
[2023-01-08] MEDS: MoRPHine SULFATE 2 MG/ML CARP IV PRN (20:45)
[2023-01-08] MEDS: ROSUVASTATIN CALCIUM 5 MG TAB PO SCH (20:47)
[2023-01-08] MEDS: FINASTERIDE 5 MG TAB PO SCH (20:48)
[2023-01-08] MEDS: TAMSULOSIN HCL 0.4 MG CAP PO SCH (20:48)
[2023-01-09] MEDS: ACETAMINOPHEN 500 MG TAB PO SCH ×3 (02:53→21:05)
[2023-01-09] MEDS: LEVOTHYROXINE SODIUM 88 MCG TABLET PO SCH (05:01)
[2023-01-09] MEDS ORDERED: SODIUM CHLORIDE 0.9% 1000ML 1,000 ML IV PRN (07:00)
[2023-01-09] MEDS ORDERED: EPOETIN ALFA 10,000 UNITS/ML VIAL IV ONE (07:00)
[2023-01-09 07:09] LABS: Basophils # (auto) 0.02 K/uL (0-0.2); Basophils % (auto) 0.2 %; Hematocrit (blood only) 26.7 % (42.0-52.0); Hemoglobin 9.3 g/dl (14.0-18.0); Immature Granulocytes # (auto) 0.63 K/uL (0.01-0.20); Lymphocytes # (auto) 1.32 K/uL (1.2-3.4); Lymphocytes % (auto) 10.5 %; Mean Corpuscular Hemoglobin 31.2 pg (25.0-34.0); Mean Corpuscular Hgb Conc 34.8 g/dL (32.0-36.0); Mean Corpuscular Volume 89.6 fL (80.0-100.0); Mean Platelet Volume 8.6 fL (9.4-12.4); Monocytes # (auto) 0.75 K/uL (0.11-0.59); Neutrophils # (auto) 9.87 K/uL (1.40-6.50); Neutrophils % (auto) 78.3 %; Nucleated RBC # (auto) 0.02 K/uL (0-0.12); Nucleated RBC % (auto) 0.2 %; Platelet Count 282 K/uL (130-400); RDW Coefficient of Variation 13.3 % (11.5-14.5); RDW Standard Deviation 43.6 fL (36.4-46.3); Red Blood Count 2.98 M/uL (4.70-6.10); White Blood Count 12.59 K/ul (4.8-10.8)
[2023-01-09 07:29] LABS: BUN Creatinine Ratio 13.8 (10-20); Calcium 7.8 mg/dl (8.6-10.3); Est GFR (African American) 11.8 ml/min; Est GFR (Non-African American) 10.2 ml/min; Potassium 4.3 mmol/L (3.5-5.1)
--- NOTE | 2023-01-09 07:49 | Hospitalist Progress Note ---
"Date of Service January 09, 2023 Assessment & Plan (1) Left leg weakness: Plan: Renal Failure | CKD Stage IV AIN - creatine went from 2.3 to 4.1 in 2 days (baseline 1.8-2). -Creatinine continues to downtrend, 4.77 on 01/09. - CT abdomen/pelvis without stones of nephrolithiasis or hydronephrosis - Consulted nephrology, appreciate recommendations -JUDI/CKD likely from cephalosporin AIN - Continue Prednisone, 40mg today - Strict I's & O's. - Producing minimal quantities of urine, although has slowly been improving - Permacath placed 01/06, first session of HD on 01/06, plan for another session of HD on 01/09. - Holding Bumex, losartan, statin renally dosed Anemia of chronic disease Labs on 01/08/2023 showed a normal iron, iron saturation 35%, and a ferritin of 550. SHANNEN will be provided by nephrology during hemodialysis today. *Chest Pain*resolved - While in the middle of his session of HD 01/08, he expressed that he was having right sided chest pain. No radiation. Denied dyspnea. Vital signs stable throughout. - EKG without any acute ischemic changes, trop= 16. - Most likely pain associated with perm catheter placement Hypervolemic Hyponatremia - Sodium of 122 on 01/06; 133 on 01/09. - Secondary to renal failure, excess free water-> improved with HD - Continue to trend BMP Altered Mental Status: Metabolic Encephalopathy - Patient catatonic on 01/02 p.m. code purple called: vitals stable and CT head normal - Episodes of delirium, could attribute to hospital related delirium vs. uncontrolled pain vs. depression - Also on Klonopin, gabapentin chronically. Episode of catatonia 01/02 afternoon - Will hold further gabapentin Left Leg Pain, Weakness - Pain began abruptly over 1 week ago, no known inciting event but patient was alone at time of onset and has poor recollection of that time - CT Lumbar spine on admission without acute changes - Left leg pain on 12/30/22 with more significant pain with manipulation of hip/rotation and radiates to groin raising concern of hip injury - Hip/Pelvis XR completed: no fractures/acute ana abnormalities - Had been able to participate with PT and leg pain was improved on 12/31, but since then pain is more intense and nonspecific throughout left LE. - Ortho consulted- no plans for immediate intervention but consider outpatient hip injection -Scheduled Tylenol, Morphine 2mg q4h PRN DM2 - Home regimen; Insulin aspart 15 units with each meal in addition to his home Lantus 30 units BID - Increased insulin requirement secondary to steroids - Hemoglobin a1c= 11.5 on 09/2022, repeat on admission a1c 9.5% - Pharmacy consulted for glycemic control UTI- Resolved - UA consistent with UTI, urine culture from 12/27 growing Klebsiella that was susceptible to ceftriaxone - Urine culture from admission: final culture with no growth - Considering recent history of multiple UTIs, bacteremia- completed course of antibiotics Anxiety - Continue clonazepam Hypothyroidism - Continue levothyroxine - TSH= 1.9 on 12/01 Heart failure with preserved ejection fraction, CAD - last echo (11/10/2022) LVEF 60-65%, moderate - Does not appear to be hypervolemic - continue metoprolol, statin, aspirin, hold losartan in the setting of JUDI COPD - continue Breo, Incruse - Albuterol prn Paroxysmal A-fib - continue Eliquis and metoprolol GERD - continue pantoprazole Diet: Low K, carb consistent, heart healthy Dispo: Med Surg with tele Code: DNR/DNI VTE Prophylaxis: Eliquis (2) Acute UTI (urinary tract infection): (3) Chronic kidney disease, stage 4 (severe): (4) Acute kidney injury: (5) Hyperkalemia: (6) Hypothyroidism: (7) Hypertension: (8) Dyslipidemia: (9) Paroxysmal atrial fibrillation: (10) Anxiety: (11) Anemia of chronic disease: (12) AIN (acute interstitial nephritis): Admission and Anticipated Discharge Date Admission Date: December 29, 2022 Supervising Physician Co-Signing Physician Notes I personally examined the patient and verified all aguayo points of history and exam, discussed case, and agree with decision making with Dr Chan feeling better - on HD when i see him. no new complaints. walking well w PT vitals noted nad heent nc at mmm breathing unlabored no accessory muscles good effort skin no rashes/pallor/icterus, neuro no focal deficits AIN - causing ARF again - on HD again. ?etiology for multiple episodes of AIN otherwise as above Subjective Patient was seen bedside this morning. He states that he feels good. He is currently waiting to go to dialysis. Denies any nominal pain, chest pain, shortness of breath, or other concerns. Review of Systems Review of Systems: All systems reviewed & are unremarkable except as noted in Subjective Physical Exam Physical Exam: Constitutional: well-appearing, no acute distress HEENT: NCAT, no conjunctival injection, right IJ TCC CV: regular rhythm, no murmur appreciated, extremities well-perfused, +1 pitting edema left LE to mid betts, trace LE edema on right Resp: CTABL, no wheezes/rales/rhonchi appreciated, no increased work of breathing GI: soft, nondistended, nontender ; Lopez catheter in place MSK: no gross deformities appreciated Skin: warm, dry, no rash appreciated, perm catheter in place, minimal bleeding at site. Neuro: alert, oriented, no focal neurologic deficit appreciated Results & Data Results & Data Vital Signs (Past 12 Hours) Vital Signs Temp Pulse Pulse Pulse Resp BP BP 01/09/23 07:00 58 L 01/09/23 03:22 36.4 C L 62 20 154/55 H 01/08/23 22:05 62 01/08/23 23:02 36.5 C 72 18 153/64 H 01/08/23 23:01 Pulse Ox O2 Del Method 01/09/23 07:00 01/09/23 03:22 97 Room Air 01/08/23 22:05 01/08/23 23:02 96 Room Air 01/08/23 23:01 Room Air Resident Activity Tracking Resident Involvement: Resident Care Provided Care Provided: Adult Hospital Medicine (6) Hypothyroidism Hypothyroidism type: unspecified Qualified Code(s): E03.9 - Hypothyroidism, unspecified (7) Hypertension Hypertension type: essential hypertension Qualified Code(s): I10 - Essential (primary) hypertension"
--- NOTE | 2023-01-09 08:21 | Nephrology Progress Note ---
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 Followed by Dr. Dixon as outpatient (3) Anemia of chronic disease: Plan: * 01/08/23 iron saturation 35%, ferritin 550 * Will provide SHANNEN w/ HD today Admission and Anticipated Discharge Date Admission Date: December 29, 2022 Subjective Mr. Monroy was evaluated in his hospital room this morning. He currently denies angina, dyspnea. Mr. Monroy voices no new medical concerns this morning Review of Systems Constitutional: no fever Eyes: no problem reported Ear, Nose, Mouth, Throat: no problem reported Respiratory: no cough and no dyspnea Cardiovascular: no chest pain Gastrointestinal: no abdominal pain, no nausea, no vomiting and no diarrhea/loose stools Physical Exam Constitutional: not in distress Eyes: PERRL, conjunctivae normal, anicteric sclerae ENMT: external ear and nose normal, oropharynx normal Neck: trachea midline, no thyromegaly R IJ TCC w/ clean dry dressing Respiratory: normal respiratory effort, lungs clear to auscultation Cardiovascular: Rate/Rhythm: regular rate and regular rhythm Extremities: + edema (trace LE swelling) Gastrointestinal (Abdomen): normal bowel sounds, soft, nontender, no hepatosplenomegaly Neurologic: Speech / Cognition: normal speech and normal cognition Results & Data Vital Signs (Past 12 Hours) Vital Signs Temp Pulse Pulse Pulse Resp BP BP 01/09/23 07:40 35.7 C L 58 L 16 187/83 H 01/09/23 07:00 58 L 01/09/23 03:22 36.4 C L 62 20 154/55 H 01/08/23 22:05 62 01/08/23 23:02 36.5 C 72 18 153/64 H 01/08/23 23:01 Pulse Ox O2 Del Method 01/09/23 07:40 96 Room Air 01/09/23 07:00 01/09/23 03:22 97 Room Air 01/08/23 22:05 01/08/23 23:02 96 Room Air 01/08/23 23:01 Room Air Laboratory Results Laboratory Tests 01/09/23 01/09/23 06:54 06:54 WBC 12.59 H Hgb 9.3 L Hct 26.7 L Plt Count 282 Sodium 133 L Potassium 4.3 Chloride 101 Carbon Dioxide 24 BUN 66 H Creatinine 4.77 H* Glucose 144 H Laboratory Tests 01/08/23 07:35 Transferrin % Sat 35 Ferritin 550.3 H PG Care Time/CCT Total # of Minutes Spent Total Time Spent with Patient: Total time spent is greater than 50% in coordination of care (as documented) at patient's floor/unit and/or counseling patient: Coding Level of Care Code 93536 SUB INP/OBS CARE 3/50MIN Diagnoses Acute renal failure N17.9 Acute renal failure type: unspecified Chronic kidney disease, stage 4 (severe) N18.4 Anemia of chronic disease D63.8 (1) Acute renal failure Acute renal failure type: unspecified Qualified Code(s): N17.9 - Acute kidney failure, unspecified
[2023-01-09] MEDS: FLUTICASONE/VILANTEROL 200/25MCG 14 PUFFS/INHALER INH SCH (08:53)
[2023-01-09] MEDS: UMECLIDINIUM/VILANTEROL 62.5/25MCG 7 PUFFS/INHALER INH SCH (08:53)
[2023-01-09] MEDS: INSULIN HUMAN NPH SC SCH (08:53)
[2023-01-09] MEDS: METOPROLOL TARTRATE 25 MG TAB PO SCH ×2 (08:54→21:03)
[2023-01-09] MEDS: CALCIUM ACETATE 667 MG CAP/TAB PO SCH ×3 (08:54→17:49)
[2023-01-09] MEDS: predniSONE 20 MG TAB PO SCH (08:55)
[2023-01-09] MEDS: PANTOprazole 40 MG TAB PO SCH ×2 (08:55→21:05)
[2023-01-09] MEDS: ASPIRIN 81 MG ECTAB PO SCH (08:55)
[2023-01-09] MEDS: APIXABAN 2.5 MG TAB PO SCH ×2 (08:55→21:06)
[2023-01-09] MEDS: INSULIN ASPART PER UNIT CHARGE SC SCH ×4 (08:56→21:06)
[2023-01-09] MEDS: LANTUS PER UNIT CHARGE SQ SCH ×2 (08:56→21:06)
[2023-01-09] MEDS: clonazePAM 1 MG TAB PO SCH ×2 (08:59→21:07)
[2023-01-09] MEDS: MoRPHine SULFATE 2 MG/ML CARP IV PRN ×2 (16:26→21:05)
--- NOTE | 2023-01-09 16:27 | Billing Data ---
Date of Service January 09, 2023 Coding Level of Care Code 29376 SUB INP/OBS CARE 3MIN
[2023-01-09] MEDS: TAMSULOSIN HCL 0.4 MG CAP PO SCH (21:05)
[2023-01-09] MEDS: ROSUVASTATIN CALCIUM 5 MG TAB PO SCH (21:05)
[2023-01-09] MEDS: FINASTERIDE 5 MG TAB PO SCH (21:06)
[2023-01-10] MEDS: ACETAMINOPHEN 500 MG TAB PO SCH ×3 (02:12→20:08)
[2023-01-10] MEDS: LEVOTHYROXINE SODIUM 88 MCG TABLET PO SCH (05:32)
[2023-01-10 06:56] LABS: Hematocrit (blood only) 26.7 % (42.0-52.0); Hemoglobin 9.1 g/dl (14.0-18.0); Mean Corpuscular Hemoglobin 30.3 pg (25.0-34.0); Mean Corpuscular Hgb Conc 34.1 g/dL (32.0-36.0); Mean Platelet Volume 8.7 fL (9.4-12.4); Nucleated RBC # (auto) 0.04 K/uL (0-0.12); Nucleated RBC % (auto) 0.3 %; Platelet Count 276 K/uL (130-400); RDW Coefficient of Variation 13.7 % (11.5-14.5); RDW Standard Deviation 44.4 fL (36.4-46.3); White Blood Count 11.51 K/ul (4.8-10.8)
[2023-01-10 07:18] LABS: BUN Creatinine Ratio 13.6 (10-20); Calcium 7.7 mg/dl (8.6-10.3); Creatinine Clr Calc Pharmacy 14.7 ml/min; Est GFR (African American) 16.7 ml/min; Est GFR (Non-African American) 14.4 ml/min; Potassium 4.2 mmol/L (3.5-5.1)
--- NOTE | 2023-01-10 07:56 | Hospitalist Progress Note ---
"Date of Service January 10, 2023 Assessment & Plan (1) Left leg weakness: Plan: Renal Failure | CKD Stage IV AIN - creatine went from 2.3 to 4.1 in 2 days (baseline 1.8-2). -Creatinine continues to downtrend. Had dialysis on 01/09. Creatinine improved from 4.77- to 3.59 on 01/10 - CT abdomen/pelvis without stones of nephrolithiasis or hydronephrosis - Consulted nephrology, appreciate recommendations - JUDI/CKD likely from cephalosporin AIN - Continue Prednisone, 40mg today - Strict I's & O's. - Producing minimal quantities of urine, although has slowly been improving - Permacath placed 01/06, first session of HD on 01/06, plan for another session of HD on 01/09. - possible HD on 01/11. - Holding Bumex, losartan, statin renally dosed Anemia of chronic disease Labs on 01/08/2023 showed a normal iron, iron saturation 35%, and a ferritin of 550. SHANNEN will be provided by nephrology during hemodialysis today. Hemoglobin of 9.1 on 01/10. We will continue to monitor with daily labs. *Chest Pain*resolved - While in the middle of his session of HD 01/08, he expressed that he was having right sided chest pain. No radiation. Denied dyspnea. Vital signs stable throughout. - EKG without any acute ischemic changes, trop= 16. - Most likely pain associated with perm catheter placement *Hypervolemic Hyponatremia* resolved - Sodium of 122 on 01/06; 137 on 01/10. - Secondary to renal failure, excess free water-> improved with HD - Continue to trend BMP Altered Mental Status: Metabolic Encephalopathy - Patient catatonic on 01/02 p.m. code purple called: vitals stable and CT head normal - Episodes of delirium, could attribute to hospital related delirium vs. uncontrolled pain vs. depression - Also on Klonopin, gabapentin chronically. Episode of catatonia 01/02 afternoon - Will hold further gabapentin Left Leg Pain, Weakness - Pain began abruptly over 1 week ago, no known inciting event but patient was alone at time of onset and has poor recollection of that time - CT Lumbar spine on admission without acute changes - Left leg pain on 12/30/22 with more significant pain with manipulation of hip/rotation and radiates to groin raising concern of hip injury - Hip/Pelvis XR completed: no fractures/acute ana abnormalities - Had been able to participate with PT and leg pain was improved on 12/31, but since then pain is more intense and nonspecific throughout left LE. - Ortho consulted- no plans for immediate intervention but consider outpatient hip injection -Scheduled Tylenol, Morphine 2mg q4h PRN DM2 - Home regimen; Insulin aspart 15 units with each meal in addition to his home Lantus 30 units BID - Increased insulin requirement secondary to steroids - Hemoglobin a1c= 11.5 on 09/2022, repeat on admission a1c 9.5% - Pharmacy consulted for glycemic control UTI- Resolved - UA consistent with UTI, urine culture from 12/27 growing Klebsiella that was susceptible to ceftriaxone - Urine culture from admission: final culture with no growth - Considering recent history of multiple UTIs, bacteremia- completed course of antibiotics Anxiety - Continue clonazepam Hypothyroidism - Continue levothyroxine - TSH= 1.9 on 12/01 Heart failure with preserved ejection fraction, CAD - last echo (11/10/2022) LVEF 60-65%, moderate - Does not appear to be hypervolemic - continue metoprolol, statin, aspirin, hold losartan in the setting of JUDI COPD - continue Breo, Incruse - Albuterol prn Paroxysmal A-fib - continue Eliquis and metoprolol GERD - continue pantoprazole Diet: Low K, carb consistent, heart healthy Dispo: Med Surg with tele Code: DNR/DNI VTE Prophylaxis: Eliquis PT/OT: Consulted Case management: Pending placement at this time. (2) Acute UTI (urinary tract infection): (3) Chronic kidney disease, stage 4 (severe): (4) Acute kidney injury: (5) Hyperkalemia: (6) Hypothyroidism: (7) Hypertension: (8) Dyslipidemia: (9) Paroxysmal atrial fibrillation: (10) Anxiety: (11) Anemia of chronic disease: (12) AIN (acute interstitial nephritis): Admission and Anticipated Discharge Date Admission Date: December 29, 2022 Supervising Physician Co-Signing Physician Notes I personally examined the patient and verified all aguayo points of history and exam, discussed case, and agree with decision making with Dr Chan Feels good and was walking halls. no new complaints. vitals noted nad heent nc at mmm breathing unlabored no accessory muscles good effort skin no rashes/pallor/icterus, neuro no focal deficits AIN - causing ARF again - on HD again. ?etiology for multiple episodes of AINnot clear, but fortunately no evidence of malignancy on multiple recent CTs that essentially encompass him from head to toe, and peripheral smear today without evidence of concerning findings otherwise as above Subjective Patient was seen bedside this morning. Denies any issues or concerns. Had dialysis yesterday. States that he feels good at this time and is currently eating breakfast. Denies any chest pain, abdominal pain, nausea, or vomiting. Review of Systems Review of Systems: All systems reviewed & are unremarkable except as noted in Subjective Physical Exam Physical Exam: Constitutional: well-appearing, no acute distress HEENT: NCAT, no conjunctival injection, right IJ TCC CV: regular rhythm, no murmur appreciated, extremities well-perfused, +1 pitting edema left LE to mid betts, trace LE edema on right Resp: CTABL, no wheezes/rales/rhonchi appreciated, no increased work of breathing GI: soft, nondistended, nontender ; Lopez catheter in place MSK: no gross deformities appreciated Skin: warm, dry, no rash appreciated, perm catheter in place, minimal bleeding at site. Neuro: alert, oriented, no focal neurologic deficit appreciated Results & Data Results & Data Vital Signs (Past 12 Hours) Vital Signs Temp Pulse Pulse Resp BP BP Pulse Ox 01/10/23 05:00 36.4 C L 62 18 188/62 H 95 01/10/23 01:09 36.4 C L 71 20 169/61 H 96 01/09/23 22:00 53 L 01/09/23 22:34 01/09/23 20:11 36.3 C L 61 18 159/75 H 95 O2 Del Method 01/10/23 05:00 Room Air 01/10/23 01:09 Room Air 01/09/23 22:00 01/09/23 22:34 Room Air 01/09/23 20:11 Room Air Laboratory Results 01/10/23 06:34 01/10/23 06:34 Resident Activity Tracking Resident Involvement: Resident Care Provided Care Provided: Adult Hospital Medicine (6) Hypothyroidism Hypothyroidism type: unspecified Qualified Code(s): E03.9 - Hypothyroidism, unspecified (7) Hypertension Hypertension type: essential hypertension Qualified Code(s): I10 - Essential (primary) hypertension"
[2023-01-10] MEDS: FLUTICASONE/VILANTEROL 200/25MCG 14 PUFFS/INHALER INH SCH (08:05)
[2023-01-10] MEDS: APIXABAN 2.5 MG TAB PO SCH ×2 (08:05→20:09)
[2023-01-10] MEDS: predniSONE 20 MG TAB PO SCH (08:06)
[2023-01-10] MEDS: ASPIRIN 81 MG ECTAB PO SCH (08:06)
[2023-01-10] MEDS: CALCIUM ACETATE 667 MG CAP/TAB PO SCH ×3 (08:06→18:07)
[2023-01-10] MEDS: UMECLIDINIUM/VILANTEROL 62.5/25MCG 7 PUFFS/INHALER INH SCH (08:06)
[2023-01-10] MEDS: PANTOprazole 40 MG TAB PO SCH ×2 (08:07→20:10)
[2023-01-10] MEDS: METOPROLOL TARTRATE 25 MG TAB PO SCH ×2 (08:07→20:09)
--- NOTE | 2023-01-10 08:37 | Nephrology Progress Note ---
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 Lopez to remain in place pending outpatient follow up with urology * Continue to monitor PRP, UO * Will tentatively plan for HD in am (2) Chronic kidney disease, stage 4 (severe): Plan: * Baseline Cr 1.5 mg/dL CKD attributed to microvascular disease and CRS. Followed by Dr. Dixon as outpatient (3) Anemia of chronic disease: Plan: * 01/08/23 iron saturation 35%, ferritin 550 * SHANNEN provided with HD 01/10/23 Admission and Anticipated Discharge Date Admission Date: December 29, 2022 Subjective Mr. Monroy was evaluated in his hospital room this morning. He was dialyzed yesterday for 3 L UF. There were no complications. This morning Mr. Monroy denies flank pain or uremic symptoms. He was able to ambulate 250 ft yesterday in PT using a rolling walker Review of Systems Constitutional: no fever Eyes: no problem reported Ear, Nose, Mouth, Throat: no problem reported Respiratory: no cough and no dyspnea Cardiovascular: no chest pain Gastrointestinal: no abdominal pain, no nausea, no vomiting and no diarrhea/loose stools Physical Exam Constitutional: not in distress Eyes: PERRL, conjunctivae normal, anicteric sclerae ENMT: external ear and nose normal, oropharynx normal Neck: trachea midline, no thyromegaly Respiratory: normal respiratory effort, lungs clear to auscultation Cardiovascular: Rate/Rhythm: regular rate and regular rhythm Gastrointestinal (Abdomen): normal bowel sounds, soft, nontender, no hepatosplenomegaly Neurologic: Speech / Cognition: normal speech and normal cognition Results & Data Vital Signs (Past 12 Hours) Vital Signs Temp Pulse Pulse Resp BP Pulse Ox O2 Del Method 01/10/23 08:07 36.6 C 63 18 166/58 H 95 Room Air 01/10/23 05:00 36.4 C L 62 18 188/62 H 95 Room Air 01/10/23 01:09 36.4 C L 71 20 169/61 H 96 Room Air 01/09/23 22:00 53 L 01/09/23 22:34 Room Air Laboratory Results Laboratory Tests 01/10/23 01/10/23 06:34 06:34 WBC 11.51 H Hgb 9.1 L Hct 26.7 L Plt Count 276 Sodium 137 Potassium 4.2 Chloride 106 Carbon Dioxide 25 BUN 49 H Creatinine 3.59 H D Glucose 81 PG Care Time/CCT Total # of Minutes Spent Total Time Spent with Patient: Total time spent is greater than 50% in coordination of care (as documented) at patient's floor/unit and/or counseling patient: Coding Level of Care Code 22307 SUB INP/OBS CARE 3/50MIN Diagnoses Acute renal failure N17.9 Acute renal failure type: unspecified Chronic kidney disease, stage 4 (severe) N18.4 Anemia of chronic disease D63.8 (1) Acute renal failure Acute renal failure type: unspecified Qualified Code(s): N17.9 - Acute kidney failure, unspecified
[2023-01-10] MEDS: INSULIN HUMAN NPH SC SCH (09:13)
[2023-01-10] MEDS: INSULIN ASPART PER UNIT CHARGE SC SCH ×4 (09:14→20:02)
[2023-01-10] MEDS: clonazePAM 1 MG TAB PO SCH ×2 (09:16→20:08)
--- NOTE | 2023-01-10 09:20 | Pharmacy Report ---
Pharmacy Glycemic Short Note 2 - Date of Service January 10, 2023 - Glycemic Short BSG Results (Last 24 hours): 01/09/23 01/09/23 01/09/23 11:39 17:12 20:39 Glucose POC Glucose 149 H 85 184 H 01/10/23 01/10/23 06:34 07:57 Glucose 81 POC Glucose 73 OUTPATIENT ANTIDIABETIC REGIMEN: * Lantus 30 units SC BID * Novolog 15 units SC prn HbA1c: 9.5% on 12/30/22 ASSESSMENT: 01/10 * BSGs largely improved yesterday, ranging 85-184 mg/dL * Patient received 30 units of Lantus, 25 units of NPH, and 8 units of bolus (63 units total) * Fasting BSG of 73 mg/dL this morning * will decrease basal insulin today (hold AM dose) * Steroids have been tapered to prednisone 40 mg PO daily (day #3 of this dose) * Will maintain current NPH and Novolog parameters to cover steroids 01/08 * Patient received total of 71 units of insulin yesterday, of which 30 units were basal insulin, 25 units NPH to cover steroids * Fasting BSG 144 mg/dL - steroids decreasing to prednisone 40 mg today, plan to scale back on NPH. Continue with scale for HS basal insulin, will give slightly lower dose this AM * No change to CF/CR 01/07 * Patient received total of 123 units of insulin yesterday, of which 40 units were Lantus and 25 units were NPH to cover prednisone * Fasting BSG much improved 110 mg/dL - will scale back on basal. BSGs trending down yesterday with addition of NPH, will continue same NPH dose today. Minimal PO intake noted today * Loosened novolog parameters slightly this AM * Prednisone changed to 40 mg, plan to scale back on NPH dose 01/06 * 87 y/o M admitted for weakness, altered mental status; he has history of DM2 and chronic kidney disease stage 4. Currently with acute renal failure and most likely will be getting dialysis tomorrow. * Patient's blood sugars were reasonably well controlled until 01/04/23. He was started on oral Prednisone 60 mg yesterday and this has caused significant hyperglycemia. Pharmacy consulted today for glycemic management. * BSGs yesterday were [phone] mg/dl. Fasting BSG today was above 400 mg/dl. * Patient had been on Basal insulin 15 units BID until yesterday. This was increased to 20 units BID and he received total 35 units of basal yesterday. * NPH insulin 0.3 units/kg was added this AM to be given with Prednisone to try to prevent hyperglycemia from steroid. * Novolog parameters were tightened * Since patient is now with acute renal failure, serum creat is 7.19 mg/dl this AM, will have to be cautious with dosing basal insulin to avoid accumulation. * Pre-lunch BSG still elevated above 400 mg/dl, so 10 units of IV regular insulin was given as a bolus around noon today. Expect BSGs to trend down this evening. PLAN FOR INPATIENT GLYCEMIC CONTROL: * Basal insulin * Lantus 0-15 units SC HS * NPH 25 units SC daily w/ prednisone 40 mg PO daily * Bolus insulin * NovoLog per scale ACHS or Q6hrs while NPO * Goal Range: Low 110 mg/dL - High 140 mg/dL * Correction Factor: 20 mg/dL/unit * Nutritional / Prandial insulin per carb ratio of 1 unit per 6 grams CHO consumed
--- NOTE | 2023-01-10 12:11 | Orthopedic Progress Note ---
Date of Service January 10, 2023 Assessment & Plan (1) Left leg weakness: Plan: The patient was educated regarding today's findings. He is doing much better. Will gladly follow him in the office as needed, if he has any future issues. Activities as tolerated. No further orthopedic intervention is necessary at this time unless his symptoms change. Admission and Anticipated Discharge Date Admission Date: December 29, 2022 Subjective No hip pain. Did 3 laps earlier today. Physical Exam Physical Exam: General: Patient is alert and oriented x 3 pleasant and conversive sitting upright at edge of bed. Musculoskeletal: Scars over bilateral knees consistent with history of total knee arthroplasties, well healed. Negative for edema or effusion over this area. Skin is normal in color and temperature. He has mild edema of the left lower extremity. No calf pain. Left hip ROM: approximately 10 degrees of hip abduction, external rotation, Hip flexion to approximately 100 degrees today. No pain with hip ROM. Neurovascularly unchanged. Results & Data Vital Signs (Past 12 Hours) Vital Signs Temp Pulse Pulse Resp BP Pulse Ox O2 Del Method 01/10/23 08:00 53 L 01/10/23 08:07 36.6 C 63 18 166/58 H 95 Room Air 01/10/23 05:00 36.4 C L 62 18 188/62 H 95 Room Air 01/10/23 01:09 36.4 C L 71 20 169/61 H 96 Room Air
[2023-01-10] MEDS: MoRPHine SULFATE 2 MG/ML CARP IV PRN ×2 (13:50→20:07)
--- NOTE | 2023-01-10 18:09 | Billing Data ---
Date of Service January 10, 2023 Coding Level of Care Code 23631 SUB INP/OBS CARE
[2023-01-10] MEDS: LANTUS PER UNIT CHARGE SQ SCH (20:07)
[2023-01-10] MEDS: ROSUVASTATIN CALCIUM 5 MG TAB PO SCH (20:09)
[2023-01-10] MEDS: TAMSULOSIN HCL 0.4 MG CAP PO SCH (20:09)
[2023-01-10] MEDS: FINASTERIDE 5 MG TAB PO SCH (20:09)
[2023-01-11] MEDS: ACETAMINOPHEN 500 MG TAB PO SCH ×3 (02:07→20:54)
[2023-01-11] MEDS: LEVOTHYROXINE SODIUM 88 MCG TABLET PO SCH (04:26)
--- NOTE | 2023-01-11 07:13 | Hospitalist Progress Note ---
"Date of Service January 11, 2023 Assessment & Plan (1) Left leg weakness: Plan: Renal Failure | CKD Stage IV AIN - creatine went from 2.3 to 4.1 in 2 days (baseline 1.8-2). -Creatinine continues to downtrend. Had dialysis on 01/09. Creatinine slightly elevated from yesterday. We will have dialysis today. - CT abdomen/pelvis without stones of nephrolithiasis or hydronephrosis - Consulted nephrology, appreciate recommendations - JUDI/CKD likely from cephalosporin AIN - Continue Prednisone, 40mg today - Strict I's & O's. - Producing minimal quantities of urine, although has slowly been improving - Permacath placed 01/06, HD on 01/06, 01/09, and 01/11. - Will attempt 2 L UF. - Holding Bumex, losartan, statin renally dosed Anemia of chronic disease Labs on 01/08/2023 showed a normal iron, iron saturation 35%, and a ferritin of 550. SHANNEN will be provided by nephrology during hemodialysis today. Hemoglobin of 9.5 on 01/11. We will continue to monitor with daily labs. *Chest Pain*resolved - While in the middle of his session of HD 01/08, he expressed that he was having right sided chest pain. No radiation. Denied dyspnea. Vital signs stable throu ghout. - EKG without any acute ischemic changes, trop= 16. - Most likely pain associated with perm catheter placement *Hypervolemic Hyponatremia* resolved - Sodium of 122 on 01/06; 137 on 01/10. - Secondary to renal failure, excess free water-> improved with HD - Continue to trend BMP Altered Mental Status: Metabolic Encephalopathy - Patient catatonic on 01/02 p.m. code purple called: vitals stable and CT head normal - Episodes of delirium, could attribute to hospital related delirium vs. uncontrolled pain vs. depression - Also on Klonopin, gabapentin chronically. Episode of catatonia 01/02 afternoon - Will hold further gabapentin Left Leg Pain, Weakness - Pain began abruptly over 1 week ago, no known inciting event but patient was alone at time of onset and has poor recollection of that time - CT Lumbar spine on admission without acute changes - Left leg pain on 12/30/22 with more significant pain with manipulation of hip/rotation and radiates to groin raising concern of hip injury - Hip/Pelvis XR completed: no fractures/acute ana abnormalities - Had been able to participate with PT and leg pain was improved on 12/31, but since then pain is more intense and nonspecific throughout left LE. - Ortho consulted- no plans for immediate intervention but consider outpatient hip injection -Scheduled Tylenol, Morphine 2mg q4h PRN DM2 - Home regimen; Insulin aspart 15 units with each meal in addition to his home Lantus 30 units BID - Increased insulin requirement secondary to steroids - Hemoglobin a1c= 11.5 on 09/2022, repeat on admission a1c 9.5% - Pharmacy consulted for glycemic control UTI- Resolved - UA consistent with UTI, urine culture from 12/27 growing Klebsiella that was susceptible to ceftriaxone - Urine culture from admission: final culture with no growth - Considering recent history of multiple UTIs, bacteremia- completed course of antibiotics Anxiety - Continue clonazepam Hypothyroidism - Continue levothyroxine - TSH= 1.9 on 12/01 Heart failure with preserved ejection fraction, CAD - last echo (11/10/2022) LVEF 60-65%, moderate - Does not appear to be hypervolemic - continue metoprolol, statin, aspirin, hold losartan in the setting of JUDI COPD - continue Breo, Incruse - Albuterol prn Paroxysmal A-fib - continue Eliquis and metoprolol GERD - continue pantoprazole Diet: Low K, carb consistent, heart healthy Dispo: Med Surg with tele Code: DNR/DNI VTE Prophylaxis: Eliquis PT/OT: Consulted Case management: Pending placement at this time. (2) Acute UTI (urinary tract infection): (3) Chronic kidney disease, stage 4 (severe): (4) Acute kidney injury: (5) Hyperkalemia: (6) Hypothyroidism: (7) Hypertension: (8) Dyslipidemia: (9) Paroxysmal atrial fibrillation: (10) Anxiety: (11) Anemia of chronic disease: (12) AIN (acute interstitial nephritis): Admission and Anticipated Discharge Date Admission Date: December 29, 2022 Supervising Physician Co-Signing Physician Notes I personally examined the patient and verified all aguayo points of history and exam, discussed case, and agree with decision making with Dr Chan no new complaints, doesn't really want to go to [facility] vitals noted nad heent nc at mmm breathing unlabored no accessory muscles good effort skin no rashes/pallor/icterus, neuro no focal deficits AIN - causing ARF again - on HD again. ?etiology for multiple episodes of AINnot clear, but fortunately no evidence of malignancy on multiple recent CTs that essentially encompass him from head to toe, and peripheral smear today without evidence of concerning findings. HD today. discharge planning otherwise as above Subjective Patient was seen bedside this morning. He has no issues or concerns at this guido e. He states that he feels well. He is currently waiting to go to dialysis at this point Review of Systems Review of Systems: All systems reviewed & are unremarkable except as noted in Subjective Physical Exam Physical Exam: Constitutional: well-appearing, no acute distress HEENT: NCAT, no conjunctival injection, right IJ TCC CV: regular rhythm, no murmur appreciated, extremities well-perfused, +1 pitting edema left LE to mid betts, trace LE edema on right Resp: CTABL, no wheezes/rales/rhonchi appreciated, no increased work of breathing GI: soft, nondistended, nontender ; Lopez catheter in place MSK: no gross deformities appreciated Skin: warm, dry, no rash appreciated, perm catheter in place, minimal bleeding at site. Neuro: alert, oriented, no focal neurologic deficit appreciated Results & Data Results & Data Vital Signs (Past 12 Hours) Vital Signs Temp Pulse Pulse Resp BP Pulse Ox O2 Del Method 01/11/23 02:37 36.4 C L 58 L 20 168/71 H 98 Room Air 01/10/23 22:49 36.6 C 60 16 171/70 H 97 Room Air 01/10/23 22:00 62 01/10/23 22:31 Room Air 01/10/23 19:52 36.5 C 58 L 18 185/70 H 96 Room Air Resident Activity Tracking Resident Involvement: Resident Care Provided Care Provided: Adult Hospital Medicine (6) Hypothyroidism Hypothyroidism type: unspecified Qualified Code(s): E03.9 - Hypothyroidism, unspecified (7) Hypertension Hypertension type: essential hypertension Qualified Code(s): I10 - Essential (primary) hypertension"
[2023-01-11 08:20] LABS: Hematocrit (blood only) 28.7 % (42.0-52.0); Hemoglobin 9.5 g/dl (14.0-18.0); Mean Corpuscular Hgb Conc 33.1 g/dL (32.0-36.0); Mean Corpuscular Volume 90.5 fL (80.0-100.0); Mean Platelet Volume 8.8 fL (9.4-12.4); Nucleated RBC # (auto) 0.05 K/uL (0-0.12); Nucleated RBC % (auto) 0.4 %; Platelet Count 277 K/uL (130-400); RDW Coefficient of Variation 14.1 % (11.5-14.5); RDW Standard Deviation 46.2 fL (36.4-46.3); Red Blood Count 3.17 M/uL (4.70-6.10); White Blood Count 12.33 K/ul (4.8-10.8)
--- NOTE | 2023-01-11 08:20 | Nephrology Progress Note ---
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 Will ask staff radiologist to replace Lopez following HD today * No clear evidence of renal recovery at this time. Will provide HD today and attempt 2 L UF. Continue Prednisone, monitor PRP and UO (2) Chronic kidney disease, stage 4 (severe): Plan: * Baseline Cr 1.5 mg/dL CKD attributed to microvascular disease and CRS. Followed by Dr. Dixon as outpatient (3) Anemia of chronic disease: Plan: * 01/08/23 iron saturation 35%, ferritin 550 * Will provide SHANNEN w/ HD today Admission and Anticipated Discharge Date Admission Date: December 29, 2022 Subjective Mr. Monroy was evaluated in his hospital room this morning. His Lopez was leaking and removed yesterday. Mr. Monroy reports urinary and fecal incontinence overnight. He would like the Lopez replaced if possible. He notes that his LE swelling has worsened over the last couple of days. Review of Systems Constitutional: no fever Eyes: no problem reported Ear, Nose, Mouth, Throat: no problem reported Respiratory: no cough and no dyspnea Cardiovascular: no chest pain Gastrointestinal: no abdominal pain, no nausea, no vomiting and no diarrhea/loose stools Physical Exam Constitutional: not in distress Eyes: PERRL, conjunctivae normal, anicteric sclerae ENMT: external ear and nose normal, oropharynx normal Neck: trachea midline, no thyromegaly R IJ TCC with clean, dry dressing in place Respiratory: normal respiratory effort, lungs clear to auscultation Cardiovascular: Rate/Rhythm: regular rate and regular rhythm Extremities: + edema (1+ LE swelling) Gastrointestinal (Abdomen): normal bowel sounds, soft, nontender, no hep atosplenomegaly Neurologic: Speech / Cognition: normal speech and normal cognition Results & Data Vital Signs (Past 12 Hours) Vital Signs Temp Pulse Pulse Resp BP Pulse Ox O2 Del Method 01/11/23 08:13 36.5 C 56 L 20 177/64 H 98 Room Air 01/11/23 02:37 36.4 C L 58 L 20 168/71 H 98 Room Air 01/10/23 22:49 36.6 C 60 16 171/70 H 97 Room Air 01/10/23 22:00 62 01/10/23 22:31 Room Air Laboratory Results Laboratory Tests 01/11/23 01/11/23 07:37 07:37 WBC 12.33 H Hgb 9.5 L Hct 28.7 L Plt Count 277 Sodium 135 L Potassium 4.1 Chloride 105 Carbon Dioxide 24 BUN 61 H Creatinine 3.78 H Glucose 117 H PG Care Time/CCT Total # of Minutes Spent Total Time Spent with Patient: Total time spent is greater than 50% in coordination of care (as documented) at patient's floor/unit and/or counseling patient: Coding Level of Care Code 76179 SUB INP/OBS CARE 3/50MIN Diagnoses Acute renal failure N17.9 Acute renal failure type: unspecified Chronic kidney disease, stage 4 (severe) N18.4 Anemia of chronic disease D63.8 (1) Acute renal failure Acute renal failure type: unspecified Qualified Code(s): N17.9 - Acute kidney failure, unspecified
[2023-01-11 08:36] LABS: BUN Creatinine Ratio 16.1 (10-20); Calcium 7.8 mg/dl (8.6-10.3); Creatinine Clr Calc Pharmacy 14.1 ml/min; Est GFR (African American) 15.6 ml/min; Est GFR (Non-African American) 13.5 ml/min; Potassium 4.1 mmol/L (3.5-5.1)
[2023-01-11] MEDS: UMECLIDINIUM/VILANTEROL 62.5/25MCG 7 PUFFS/INHALER INH SCH (08:46)
[2023-01-11] MEDS: INSULIN HUMAN NPH SC SCH (08:46)
[2023-01-11] MEDS: FLUTICASONE/VILANTEROL 200/25MCG 14 PUFFS/INHALER INH SCH (08:46)
[2023-01-11] MEDS: clonazePAM 1 MG TAB PO SCH ×2 (08:47→21:13)
[2023-01-11] MEDS: INSULIN ASPART PER UNIT CHARGE SC SCH ×4 (08:47→21:13)
[2023-01-11] MEDS: ASPIRIN 81 MG ECTAB PO SCH (08:47)
[2023-01-11] MEDS: APIXABAN 2.5 MG TAB PO SCH ×2 (08:47→20:54)
[2023-01-11] MEDS: METOPROLOL TARTRATE 25 MG TAB PO SCH ×2 (08:47→20:54)
[2023-01-11] MEDS: PANTOprazole 40 MG TAB PO SCH ×2 (08:47→20:54)
[2023-01-11] MEDS: predniSONE 20 MG TAB PO SCH (08:47)
[2023-01-11] MEDS: CALCIUM ACETATE 667 MG CAP/TAB PO SCH ×3 (08:47→16:23)
--- NOTE | 2023-01-11 08:51 | Nephrology Progress Note ---
Date of Service January 11, 2023 Assessment & Plan Admission and Anticipated Discharge Date Admission Date: December 29, 2022 Results & Data Vital Signs (Past 12 Hours) Vital Signs Temp Pulse Pulse Resp BP Pulse Ox O2 Del Method 01/11/23 08:13 36.5 C 56 L 20 177/64 H 98 Room Air 01/11/23 02:37 36.4 C L 58 L 20 168/71 H 98 Room Air 01/10/23 22:49 36.6 C 60 16 171/70 H 97 Room Air 01/10/23 22:00 62 01/10/23 22:31 Room Air Laboratory Results Laboratory Tests 01/09/23 01/10/23 01/11/23 06:54 06:34 07:37 WBC 12.33 H Hgb 9.5 L Hct 28.7 L Plt Count 277 Sodium Potassium Chloride Carbon Dioxide BUN Creatinine 4.77 H* 3.59 H D 01/11/23 07:37 WBC Hgb Hct Plt Count Sodium 135 L Potassium 4.1 Chloride 105 Carbon Dioxide 24 BUN 61 H Creatinine 3.78 H PG Care Time/CCT Total # of Minutes Spent Total Time Spent with Patient: Total time spent is greater than 50% in coordination of care (as documented) at patient's floor/unit and/or counseling patient: Coding Diagnoses
[2023-01-11] MEDS ORDERED: EPOETIN ALFA 10,000 UNITS/ML VIAL IV ONE (08:52)
[2023-01-11] MEDS ORDERED: SODIUM CHLORIDE 0.9% 1000ML 1,000 ML IV PRN (08:52)
--- NOTE | 2023-01-11 13:22 | Billing Data ---
Date of Service January 11, 2023 Coding Level of Care Code 54331 SUB INP/OBS CARE
[2023-01-11] MEDS: TAMSULOSIN HCL 0.4 MG CAP PO SCH (20:53)
[2023-01-11] MEDS: ROSUVASTATIN CALCIUM 5 MG TAB PO SCH (20:53)
[2023-01-11] MEDS: FINASTERIDE 5 MG TAB PO SCH (20:54)
[2023-01-11] MEDS: LANTUS PER UNIT CHARGE SQ SCH (21:13)
[2023-01-12] MEDS: ACETAMINOPHEN 500 MG TAB PO SCH ×3 (03:58→20:08)
[2023-01-12] MEDS: LEVOTHYROXINE SODIUM 88 MCG TABLET PO SCH (05:37)
--- NOTE | 2023-01-12 06:47 | Hospitalist Progress Note ---
"Date of Service January 12, 2023 Assessment & Plan (1) Left leg weakness: Plan: Renal Failure | CKD Stage IV AIN - creatine went from 2.3 to 4.1 in 2 days (baseline 1.8-2). -Creatinine continues to downtrend with dialysis. - CT abdomen/pelvis without stones of nephrolithiasis or hydronephrosis - Consulted nephrology, appreciate recommendations - JUDI/CKD likely from cephalosporin AIN - Continue Prednisone, 40mg today - Strict I's & O's. - Producing minimal quantities of urine, although has slowly been improving - Permacath placed 01/06, HD on 01/06, 01/09, and 01/11. Creatinine downtrending, creatinine improved from 3.78-3.01 on 01/12. We will recheck in the morning. Decide if dialysis is still needed. Setting up long-term dialysis in case patient requires that on discharge. - Holding Bumex, losartan, statin renally dosed Anemia of chronic disease Labs on 01/08/2023 showed a normal iron, iron saturation 35%, and a ferritin of 550. SHANNEN will be provided by nephrology during hemodialysis today. Hemoglobin of 9.6 on 01/11. We will continue to monitor with daily labs. *Chest Pain*resolved - While in the middle of his session of HD 01/08, he expressed that he was having right sided chest pain. No radiation. Denied dyspnea. Vital signs stable throughout. - EKG without any acute ischemic changes, trop= 16. - Most likely pain associated with perm catheter placement *Hypervolemic Hyponatremia* resolved - Sodium of 122 on 01/06; 137 on 01/10. - Secondary to renal failure, excess free water-> improved with HD - Continue to trend BMP Altered Mental Status: Metabolic Encephalopathy - Patient catatonic on 01/02 p.m. code purple called: vitals stable and CT head normal - Episodes of delirium, could attribute to hospital related delirium vs. uncontrolled pain vs. depression - Also on Klonopin, gabapentin chronically. Episode of catatonia 01/02 afternoon - Will hold further gabapentin Left Leg Pain, Weakness - Pain began abruptly over 1 week ago, no known inciting event but patient was alone at time of onset and has poor recollection of that time - CT Lumbar spine on admission without acute changes - Left leg pain on 12/30/22 with more significant pain with manipulation of hip/rotation and radiates to groin raising concern of hip injury - Hip/Pelvis XR completed: no fractures/acute ana abnormalities - Had been able to participate with PT and leg pain was improved on 12/31, but since then pain is more intense and nonspecific throughout left LE. - Ortho consulted- no plans for immediate intervention but consider outpatient hip injection -Scheduled Tylenol, Morphine 2mg q4h PRN DM2 - Home regimen; Insulin aspart 15 units with each meal in addition to his home Lantus 30 units BID - Increased insulin requirement secondary to steroids - Hemoglobin a1c= 11.5 on 09/2022, repeat on admission a1c 9.5% - Pharmacy consulted for glycemic control UTI- Resolved - UA consistent with UTI, urine culture from 12/27 growing Klebsiella that was susceptible to ceftriaxone - Urine culture from admission: final culture with no growth - Considering recent history of multiple UTIs, bacteremia- completed course of antibiotics Anxiety - Continue clonazepam Hypothyroidism - Continue levothyroxine - TSH= 1.9 on 12/01 Heart failure with preserved ejection fraction, CAD - last echo (11/10/2022) LVEF 60-65%, moderate - Does not appear to be hypervolemic - continue metoprolol, statin, aspirin, hold losartan in the setting of JUDI COPD - continue Breo, Incruse - Albuterol prn Paroxysmal A-fib - continue Eliquis and metoprolol GERD - continue pantoprazole Diet: Low K, carb consistent, Dispo: Med Surg with tele Code: DNR/DNI VTE Prophylaxis: Eliquis PT/OT: Consulted Case management: Pending placement at this time. (2) Acute UTI (urinary tract infection): (3) Chronic kidney disease, stage 4 (severe): (4) Acute kidney injury: (5) Hyperkalemia: (6) Hypothyroidism: (7) Hypertension: (8) Dyslipidemia: (9) Paroxysmal atrial fibrillation: (10) Anxiety: (11) Anemia of chronic disease: (12) AIN (acute interstitial nephritis): Admission and Anticipated Discharge Date Admission Date: December 29, 2022 Supervising Physician Co-Signing Physician Notes I personally examined the patient and verified all aguayo points of history and exam, discussed case, and agree with decision making with Dr Chan feeling ok a little depressed today no new complaints otherwise vitals noted nad heent nc at mmm breathing unlabored no accessory muscles good effort skin no rashes/pallor/icterus, neuro no focal deficits AIN - causing ARF again - on HD again. ?etiology for multiple episodes of AINnot clear, but fortunately no evidence of malignancy on multiple recent CTs that essentially encompass him from head to toe, and peripheral smear today without evidence of concerning findings. HD ongoing but cautiously following with hopes of renal recovery otherwise as above Subjective Patient was seen bedside this morning. He denies any issues or complaints at this time. He was up and about and moving with a walker with OT at the time. Review of Systems Review of Systems: All systems reviewed & are unremarkable except as noted in Subjective Physical Exam Physical Exam: Constitutional: well-appearing, no acute distress HEENT: NCAT, no conjunctival injection, right IJ TCC CV: regular rhythm, no murmur appreciated, extremities well-perfused, +1 pitting edema left LE to mid betts, trace LE edema on right Resp: CTABL, no wheezes/rales/rhonchi appreciated, no increased work of breathing GI: soft, nondistended, nontender ; Lopez catheter in place MSK: no gross deformities appreciated Skin: warm, dry, no rash appreciated, perm catheter in place, minimal bleeding at site. Neuro: alert, oriented, no focal neurologic deficit appreciated Results & Data Results & Data Vital Signs (Past 12 Hours) Vital Signs Temp Pulse Pulse Resp BP Pulse Ox O2 Del Method 01/12/23 04:50 Room Air 01/11/23 21:59 72 01/12/23 03:50 36.4 C L 66 18 187/70 H 97 Room Air 01/11/23 22:23 36.5 C 71 16 158/69 H 97 Room Air 01/11/23 19:20 36.5 C 72 18 154/64 H 95 Room Air Resident Activity Tracking Resident Involvement: Resident Care Provided Care Provided: Adult Hospital Medicine (6) Hypothyroidism Hypothyroidism type: unspecified Qualified Code(s): E03.9 - Hypothyroidism, unspecified (7) Hypertension Hypertension type: essential hypertension Qualified Code(s): I10 - Essential (primary) hypertension"
[2023-01-12] MEDS: METOPROLOL TARTRATE 25 MG TAB PO SCH ×2 (08:24→20:08)
[2023-01-12] MEDS: PANTOprazole 40 MG TAB PO SCH ×2 (08:24→20:08)
[2023-01-12] MEDS: CALCIUM ACETATE 667 MG CAP/TAB PO SCH ×3 (08:24→18:01)
[2023-01-12] MEDS: predniSONE 20 MG TAB PO SCH (08:25)
[2023-01-12] MEDS: APIXABAN 2.5 MG TAB PO SCH ×2 (08:25→20:08)
[2023-01-12] MEDS: ASPIRIN 81 MG ECTAB PO SCH (08:25)
[2023-01-12] MEDS: FLUTICASONE/VILANTEROL 200/25MCG 14 PUFFS/INHALER INH SCH (08:26)
[2023-01-12 08:27] LABS: BUN Creatinine Ratio 15.6 (10-20); Calcium 7.7 mg/dl (8.6-10.3); Creatinine Clr Calc Pharmacy 17.5 ml/min; Est GFR (African American) 20.6 ml/min; Est GFR (Non-African American) 17.8 ml/min; Potassium 4.2 mmol/L (3.5-5.1)
[2023-01-12] MEDS: UMECLIDINIUM/VILANTEROL 62.5/25MCG 7 PUFFS/INHALER INH SCH (08:27)
[2023-01-12] MEDS: clonazePAM 1 MG TAB PO SCH ×2 (08:31→20:08)
[2023-01-12 08:36] LABS: Hematocrit (blood only) 29.6 % (42.0-52.0); Hemoglobin 9.6 g/dl (14.0-18.0); Mean Corpuscular Hemoglobin 30.5 pg (25.0-34.0); Mean Corpuscular Hgb Conc 32.4 g/dL (32.0-36.0); Mean Platelet Volume 8.8 fL (9.4-12.4); Nucleated RBC % (auto) 0.8 %; Platelet Count 265 K/uL (130-400); RDW Coefficient of Variation 14.6 % (11.5-14.5); RDW Standard Deviation 48.8 fL (36.4-46.3); Red Blood Count 3.15 M/uL (4.70-6.10); White Blood Count 12.27 K/ul (4.8-10.8)
[2023-01-12] MEDS: INSULIN HUMAN NPH SC SCH (08:40)
[2023-01-12] MEDS: INSULIN ASPART PER UNIT CHARGE SC SCH ×4 (08:41→21:15)
--- NOTE | 2023-01-12 09:25 | Nephrology Progress Note ---
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 staffing branch manager replaced Lopez catheter following HD yesterday * Although patient is oliguric, creatinine is declining toward baseline. Will reassess need for HD in am. Will also ask case management to set up o utpatient HD at [facility]. If patient recovers before discharge then outpatient HD will be cancelled (2) Chronic kidney disease, stage 4 (severe): Plan: * Baseline Cr 1.5 mg/dL CKD attributed to microvascular disease and CRS. Followed by Dr. Dixon as outpatient (3) Anemia of chronic disease: Plan: * 01/08/23 iron saturation 35%, ferritin 550 * Will provide SHANNEN w/ HD today Admission and Anticipated Discharge Date Admission Date: December 29, 2022 Subjective Mr. Monroy was evaluated in his hospital room this morning. His Lopez catheter has been replaced. UO remains < 400 cc/day. Mr. Monroy denies fever, flank pain or uremic symptoms Review of Systems Respiratory: no cough and no dyspnea Cardiovascular: no chest pain Gastrointestinal: no abdominal pain, no nausea and no vomiting Physical Exam Constitutional: not in distress Eyes: PERRL, conjunctivae normal, anicteric sclerae ENMT: external ear and nose normal, oropharynx normal Neck: trachea midline, no thyromegaly R IJ TCC with clean, dry dressing in place Respiratory: normal respiratory effort, lungs clear to auscultation Cardiovascular: Rate/Rhythm: regular rate and regular rhythm Extremities: + edema (1+ LE swelling) Gastrointestinal (Abdomen): normal bowel sounds, soft, nontender, no hepatosplenomegaly Neurologic: Speech / Cognition: normal speech and normal cognition Results & Data Vital Signs (Past 12 Hours) Vital Signs Temp Pulse Pulse Resp BP Pulse Ox O2 Del Method 01/12/23 08:05 36.5 C 66 19 186/77 H 97 Room Air 01/12/23 07:43 Room Air 01/12/23 07:15 63 01/12/23 04:50 Room Air 01/11/23 21:59 72 01/12/23 03:50 36.4 C L 66 18 187/70 H 97 Room Air 01/11/23 22:23 36.5 C 71 16 158/69 H 97 Room Air Laboratory Results Laboratory Tests 01/09/23 01/10/23 01/11/23 06:54 06:34 07:37 WBC Hgb Hct Plt Count Sodium Potassium Chloride Carbon Dioxide BUN Creatinine 4.77 H* 3.59 H D 3.78 H Glucose Calcium 01/12/23 01/12/23 07:20 07:20 WBC 12.27 H Hgb 9.6 L Hct 29.6 L Plt Count 265 Sodium 139 Potassium 4.2 Chloride 108 H Carbon Dioxide 26 BUN 47 H Creatinine 3.01 H D Glucose 114 H Calcium 7.7 L PG Care Time/CCT Total # of Minutes Spent Total Time Spent with Patient: Total time spent is greater than 50% in coordination of care (as documented) at patient's floor/unit and/or counseling patient: Coding Level of Care Code 72938 SUB INP/OBS CARE 3/50MIN Diagnoses Acute renal failure N17.9 Acute renal failure type: unspecified Chronic kidney disease, stage 4 (severe) N18.4 Anemia of chronic disease D63.8 (1) Acute renal failure Acute renal failure type: unspecified Qualified Code(s): N17.9 - Acute kidney failure, unspecified
--- NOTE | 2023-01-12 11:49 | Pharmacy Report ---
Pharmacy Glycemic Short Note 2 - Date of Service January 12, 2023 - Glycemic Short BSG Results (Last 24 hours): 01/11/23 01/11/23 01/11/23 13:08 17:14 20:18 Glucose POC Glucose 102 H 157 H 187 H 01/12/23 01/12/23 07:20 08:18 Glucose 114 H POC Glucose 105 H OUTPATIENT ANTIDIABETIC REGIMEN: * Lantus 30 units SC BID * Novolog 15 units SC prn HbA1c: 9.5% on 12/30/22 ASSESSMENT: 01/12/23 * BSGs yesterday were [phone] mg/dL. Patient received 76 units of insulin (45 units of basal- 25 units of NPH and 20 units of basal; 31 units of bolus). * Fasting today is 105 mg/dL. Will reduce Lantus to 15 units night. * Patient continues on prednisone 40 mg daily. Continue NPH 25 units. * Continue Novolog. Consider tightening CR. 01/10 * BSGs largely improved yesterday, ranging 85-184 mg/dL * Patient received 30 units of Lantus, 25 units of NPH, and 8 units of bolus (63 units total) * Fasting BSG of 73 mg/dL this morning * will decrease basal insulin today (hold AM dose) * Steroids have been tapered to prednisone 40 mg PO daily (day #3 of this dose) * Will maintain current NPH and Novolog parameters to cover steroids 01/08 * Patient received total of 71 units of insulin yesterday, of which 30 units were basal insulin, 25 units NPH to cover steroids * Fasting BSG 144 mg/dL - steroids decreasing to prednisone 40 mg today, plan to scale back on NPH. Continue with scale for HS basal insulin, will give slightly lower dose this AM * No change to CF/CR 01/07 * Patient received total of 123 units of insulin yesterday, of which 40 units were Lantus and 25 units were NPH to cover prednisone * Fasting BSG much improved 110 mg/dL - will scale back on basal. BSGs trending down yesterday with addition of NPH, will continue same NPH dose today. Minimal PO intake noted today * Loosened novolog parameters slightly this AM * Prednisone changed to 40 mg, plan to scale back on NPH dose 01/06 * 87 y/o M admitted for weakness, altered mental status; he has history of DM2 and chronic kidney disease stage 4. Currently with acute renal failure and most likely will be getting dialysis tomorrow. * Patient's blood sugars were reasonably well controlled until 01/04/23. He was started on oral Prednisone 60 mg yesterday and this has caused significant hyperglycemia. Pharmacy consulted today for glycemic management. * BSGs yesterday were [phone] mg/dl. Fasting BSG today was above 400 mg/dl. * Patient had been on Basal insulin 15 units BID until yesterday. This was increased to 20 units BID and he received total 35 units of basal yesterday. * NPH insulin 0.3 units/kg was added this AM to be given with Prednisone to try to prevent hyperglycemia from steroid. * Novolog parameters were tightened * Since patient is now with acute renal failure, serum creat is 7.19 mg/dl this AM, will have to be cautious with dosing basal insulin to avoid accumulation. * Pre-lunch BSG still elevated above 400 mg/dl, so 10 units of IV regular insulin was given as a bolus around noon today. Expect BSGs to trend down this evening. PLAN FOR INPATIENT GLYCEMIC CONTROL: * Basal insulin * Lantus 15 units SC HS * NPH 25 units SC daily w/ prednisone 40 mg PO daily * Bolus insulin * NovoLog per scale ACHS or Q6hrs while NPO * Goal Range: Low 110 mg/dL - High 140 mg/dL * Correction Factor: 20 mg/dL/unit * Nutritional / Prandial insulin per carb ratio of 1 unit per 6 grams CHO consumed
[2023-01-12] MEDS: MoRPHine SULFATE 2 MG/ML CARP IV PRN (16:44)
--- NOTE | 2023-01-12 17:35 | Billing Data ---
Date of Service January 12, 2023 Coding Level of Care Code 69006 SUB INP/OBS CARE
[2023-01-12] MEDS: ROSUVASTATIN CALCIUM 5 MG TAB PO SCH (20:06)
[2023-01-12] MEDS: TAMSULOSIN HCL 0.4 MG CAP PO SCH (20:06)
[2023-01-12] MEDS: FINASTERIDE 5 MG TAB PO SCH (20:08)
[2023-01-12] MEDS ORDERED: LANTUS PER UNIT CHARGE SQ SCH (21:00)
[2023-01-12] MEDS: GABAPENTIN 300 MG CAP PO SCH (21:14)
[2023-01-13] MEDS: MoRPHine SULFATE 2 MG/ML CARP IV PRN (00:03)
[2023-01-13] MEDS: ACETAMINOPHEN 500 MG TAB PO SCH ×3 (02:22→18:36)
[2023-01-13] MEDS: LEVOTHYROXINE SODIUM 88 MCG TABLET PO SCH (05:28)
--- NOTE | 2023-01-13 05:34 | Hospitalist Progress Note ---
"Date of Service January 13, 2023 Assessment & Plan (1) Left leg weakness: Plan: Renal Failure | CKD Stage IV AIN - Creatine went from 2.3 to 4.1 in 2 days (baseline 1.8-2). - Creatinine continues to downtrend with dialysis. - CT abdomen/pelvis without stones of nephrolithiasis or hydronephrosis - Consulted nephrology, appreciate recommendations - JUDI/CKD likely from cephalosporin AIN - Continue Prednisone, 40mg today - Strict I's & O's. - Producing minimal quantities of urine, although has slowly been improving - Permacath placed 01/06, HD on 01/06, 01/09, and 01/11. Creatinine downtrending, creatinine improved from 3.78-3.01 on 01/12. Creatinine of 3.05 on 01/13. Stable at this time and continues to improve. We will continue to monitor over the weekend and consider dialysis again on Monday. Unsure if patient will need dialysis long-term. - Holding Bumex, losartan, statin renally dosed - Lopez catheter replaced on 01/11. Anemia of chronic disease Labs on 01/08/2023 showed a normal iron, iron saturation 35%, and a ferritin of 550. SHANNEN will be provided by nephrology during hemodialysis today. Hemoglobin of 9.6 on 01/11. We will continue to monitor with daily labs. *Chest Pain*resolved - While in the middle of his session of HD 01/08, he expressed that he was having right sided chest pain. No radiation. Denied dyspnea. Vital signs stable thr oughout. - EKG without any acute ischemic changes, trop= 16. - Most likely pain associated with perm catheter placement *Hypervolemic Hyponatremia* resolved - Sodium of 122 on 01/06; 137 on 01/10. - Secondary to renal failure, excess free water-> improved with HD - Continue to trend BMP Altered Mental Status: Metabolic Encephalopathy - Patient catatonic on 01/02 p.m. code purple called: vitals stable and CT head normal - Episodes of delirium, could attribute to hospital related delirium vs. uncontrolled pain vs. depression - Also on Klonopin, gabapentin chronically. Episode of catatonia 01/02 afternoon - Will hold further gabapentin Left Leg Pain, Weakness - Pain began abruptly over 1 week ago, no known inciting event but patient was alone at time of onset and has poor recollection of that time - CT Lumbar spine on admission without acute changes - Left leg pain on 12/30/22 with more significant pain with manipulation of hip/rotation and radiates to groin raising concern of hip injury - Hip/Pelvis XR completed: no fractures/acute ana abnormalities - Had been able to participate with PT and leg pain was improved on 12/31, but since then pain is more intense and nonspecific throughout left LE. - Ortho consulted- no plans for immediate intervention but consider outpatient hip injection -Scheduled Tylenol, Morphine 2mg q4h PRN DM2 - Home regimen; Insulin aspart 15 units with each meal in addition to his home Lantus 30 units BID - Increased insulin requirement secondary to steroids - Hemoglobin a1c= 11.5 on 09/2022, repeat on admission a1c 9.5% - Pharmacy consulted for glycemic control UTI- Resolved - UA consistent with UTI, urine culture from 12/27 growing Klebsiella that was susceptible to ceftriaxone - Urine culture from admission: final culture with no growth - Considering recent history of multiple UTIs, bacteremia- completed course of antibiotics Anxiety - Continue clonazepam Hypothyroidism - Continue levothyroxine - TSH= 1.9 on 12/01 Heart failure with preserved ejection fraction, CAD - last echo (11/10/2022) LVEF 60-65%, moderate - Does not appear to be hypervolemic - continue metoprolol, statin, aspirin, hold losartan in the setting of JUDI COPD - continue Breo, Incruse - Albuterol prn Paroxysmal A-fib - continue Eliquis and metoprolol GERD - continue pantoprazole Diet: Low K, carb consistent, Dispo: Med Surg with tele Code: DNR/DNI VTE Prophylaxis: Eliquis PT/OT: Consulted Case management: Pending placement at this time. (2) Acute UTI (urinary tract infection): (3) Chronic kidney disease, stage 4 (severe): (4) Acute kidney injury: (5) Hyperkalemia: (6) Hypothyroidism: (7) Hypertension: (8) Dyslipidemia: (9) Paroxysmal atrial fibrillation: (10) Anxiety: (11) Anemia of chronic disease: (12) AIN (acute interstitial nephritis): Admission and Anticipated Discharge Date Admission Date: December 29, 2022 Supervising Physician Co-Signing Physician Notes I personally examined the patient and verified all aguayo points of history and exam, discussed case, and agree with decision making with Dr Chan feeling ok happy that numbers are staying stable feeling good vitals noted nad heent nc at mmm breathing unlabored no accessory muscles good effort skin no rashes/pallor/icterus, neuro no focal deficits AIN - causing ARF again - was on HD again. ?etiology for multiple episodes of AINnot clear, but fortunately no evidence of malignancy on multiple recent CTs that essentially encompass him from head to toe, and peripheral smear today without evidence of concerning findings. hopefully showing signs of renal recovery otherwise as above Subjective Patient seen bedside this morning. No issues or concerns. Does have decreased urine output. Denies any flank pain, abdominal pain, nausea, or vomiting. Review of Systems Review of Systems: All systems reviewed & are unremarkable except as noted in Subjective Physical Exam Physical Exam: Constitutional: well-appearing, no acute distress HEENT: NCAT, no conjunctival injection, right IJ TCC CV: regular rhythm, no murmur appreciated, extremities well-perfused, +1 pitting edema left LE to mid betts, trace LE edema on right Resp: CTABL, no wheezes/rales/rhonchi appreciated, no increased work of breathing GI: soft, nondistended, nontender ; Lopez catheter in place MSK: no gross deformities appreciated Skin: warm, dry, no rash appreciated, perm catheter in place, Neuro: alert, oriented, no focal neurologic deficit appreciated Results & Data Results & Data Vital Signs (Past 12 Hours) Vital Signs Temp Pulse Pulse Resp BP BP Pulse Ox 01/13/23 03:41 01/12/23 23:50 154 H 01/12/23 22:01 56 L 01/13/23 03:18 36.6 C 67 18 184/82 H 97 01/12/23 22:33 36.4 C L 62 18 185/71 H 96 01/12/23 19:09 36.3 C L 63 18 169/64 H 97 O2 Del Method 01/13/23 03:41 Room Air 01/12/23 23:50 01/12/23 22:01 01/13/23 03:18 Room Air 01/12/23 22:33 Room Air 01/12/23 19:09 Room Air Resident Activity Tracking Resident Involvement: Resident Care Provided Care Provided: Adult Hospital Medicine (6) Hypothyroidism Hypothyroidism type: unspecified Qualified Code(s): E03.9 - Hypothyroidism, unspecified (7) Hypertension Hypertension type: essential hypertension Qualified Code(s): I10 - Essential (primary) hypertension"
[2023-01-13 07:13] LABS: Basophils # (auto) 0.02 K/uL (0-0.2); Basophils % (auto) 0.2 %; Hematocrit (blood only) 29.5 % (42.0-52.0); Hemoglobin 9.5 g/dl (14.0-18.0); Immature Granulocytes % (auto) 4.3 %; Lymphocytes # (auto) 1.63 K/uL (1.2-3.4); Mean Corpuscular Hemoglobin 30.3 pg (25.0-34.0); Mean Corpuscular Hgb Conc 32.2 g/dL (32.0-36.0); Mean Corpuscular Volume 93.9 fL (80.0-100.0); Mean Platelet Volume 8.8 fL (9.4-12.4); Monocytes # (auto) 0.85 K/uL (0.11-0.59); Monocytes % (auto) 7.3 %; Neutrophils # (auto) 8.67 K/uL (1.40-6.50); Neutrophils % (auto) 74.2 %; Nucleated RBC # (auto) 0.02 K/uL (0-0.12); Nucleated RBC % (auto) 0.2 %; Platelet Count 237 K/uL (130-400); RDW Coefficient of Variation 15.1 % (11.5-14.5); RDW Standard Deviation 50.3 fL (36.4-46.3); Red Blood Count 3.14 M/uL (4.70-6.10); White Blood Count 11.67 K/ul (4.8-10.8)
[2023-01-13 07:45] LABS: Calcium 7.7 mg/dl (8.6-10.3); Est GFR (African American) 20.3 ml/min; Est GFR (Non-African American) 17.5 ml/min
[2023-01-13] MEDS: predniSONE 20 MG TAB PO SCH (08:22)
[2023-01-13] MEDS: PANTOprazole 40 MG TAB PO SCH ×2 (08:22→19:19)
[2023-01-13] MEDS: METOPROLOL TARTRATE 25 MG TAB PO SCH ×2 (08:22→19:25)
[2023-01-13] MEDS: ASPIRIN 81 MG ECTAB PO SCH (08:22)
[2023-01-13] MEDS: CALCIUM ACETATE 667 MG CAP/TAB PO SCH ×3 (08:22→17:45)
[2023-01-13] MEDS: APIXABAN 2.5 MG TAB PO SCH ×2 (08:22→19:21)
[2023-01-13] MEDS: FLUTICASONE/VILANTEROL 200/25MCG 14 PUFFS/INHALER INH SCH (08:23)
[2023-01-13] MEDS: clonazePAM 1 MG TAB PO SCH ×2 (08:26→19:30)
--- NOTE | 2023-01-13 08:58 | Nephrology Progress Note ---
Date of Service January 13, 2023 Assessment & Plan (1) Acute renal failure: Plan: * JUDI/CKD likely from cephalosporin induced AIN * UO only 500 cc this morning * Creatinine stable at 3.1 * Continue Prednisone 40 mg daily * h/o BPH w/ obstruction. net software architect replaced Lopez catheter 01/11/23 * Kidney function appears to be recovering. Will hold HD and monitor kidney function over weekend (2) Chronic kidney disease, stage 4 (severe): Plan: * Baseline Cr 1.5 mg/dL CKD attributed to microvascular disease and CRS (3) Anemia of chronic disease: Plan: * 01/08/23 iron saturation 35%, ferritin 550 * Will provide SHANNEN w/ HD today Admission and Anticipated Discharge Date Admission Date: December 29, 2022 Subjective Mr. Monroy was evaluated in his hospital room this morning. He denies fever, flank pain or uremic symptoms. He voices no new medical concerns. Review of Systems Constitutional: no fever Eyes: no problem reported Ear, Nose, Mouth, Throat: no problem reported Respiratory: no cough and no dyspnea Cardiovascular: no chest pain Gastrointestinal: no abdominal pain, no nausea, no vomiting and no diarrhea/loose stools Physical Exam Constitutional: not in distress Eyes: PERRL, conjunctivae normal, anicteric sclerae ENMT: external ear and nose normal, oropharynx normal Neck: trachea midline, no thyromegaly Respiratory: normal respiratory effort, lungs clear to auscultation Cardiovascular: Rate/Rhythm: regular rate and regular rhythm Extremities: + edema (1+ LE swelling) Gastrointestinal (Abdomen): normal bowel sounds, soft, nontender, no hepatosplenomegaly Neurologic: Speech / Cognition: normal speech and normal cognition Results & Data Vital Signs (Past 12 Hours) Vital Signs Temp Pulse Pulse Resp BP BP Pulse Ox 01/13/23 07:17 36.6 C 97 H 18 205/81 H 97 01/13/23 07:17 55 L 01/13/23 03:41 01/12/23 23:50 154 H 01/12/23 22:01 56 L 01/13/23 03:18 36.6 C 67 18 184/82 H 97 01/12/23 22:33 36.4 C L 62 18 185/71 H 96 O2 Del Method 01/13/23 07:17 Room Air 01/13/23 07:17 01/13/23 03:41 Room Air 01/12/23 23:50 01/12/23 22:01 01/13/23 03:18 Room Air 01/12/23 22:33 Room Air Laboratory Results Laboratory Tests 01/13/23 01/13/23 05:52 05:52 WBC 11.67 H Hgb 9.5 L Hct 29.5 L Plt Count 237 Sodium 139 Potassium 4.0 Chloride 109 H Carbon Dioxide 25 BUN 58 H Creatinine 3.05 H Glucose 85 PG Care Time/CCT Total # of Minutes Spent Total Time Spent with Patient: Total time spent is greater than 50% in coordination of care (as documented) at patient's floor/unit and/or counseling patient: Coding Level of Care Code 64097 SUB INP/OBS CARE 3/50MIN Diagnoses Acute renal failure N17.9 Acute renal failure type: unspecified Chronic kidney disease, stage 4 (severe) N18.4 Anemia of chronic disease D63.8 (1) Acute renal failure Acute renal failure type: unspecified Qualified Code(s): N17.9 - Acute kidney failure, unspecified
[2023-01-13] MEDS ORDERED: INSULIN HUMAN NPH SC SCH (09:00)
[2023-01-13] MEDS: INSULIN ASPART PER UNIT CHARGE SC SCH ×4 (09:29→22:18)
[2023-01-13] MEDS: GABAPENTIN 100 MG CAP PO SCH (09:30)
[2023-01-13] MEDS: UMECLIDINIUM/VILANTEROL 62.5/25MCG 7 PUFFS/INHALER INH SCH (11:52)
--- NOTE | 2023-01-13 12:43 | Pharmacy Report ---
Pharmacy Glycemic Short Note 2 - Date of Service January 13, 2023 - Glycemic Short BSG Results (Last 24 hours): 01/12/23 01/12/23 01/12/23 17:14 17:16 20:52 Glucose POC Glucose 63 L* 63 L* 117 H 01/13/23 01/13/23 01/13/23 05:52 07:19 12:33 Glucose 85 POC Glucose 83 142 H OUTPATIENT ANTIDIABETIC REGIMEN: * Lantus 30 units SC BID * Novolog 15 units SC prn HbA1c: 9.5% on 12/30/22 ASSESSMENT: 01/13/23 * BSGs yesterday were 105-125-63/63-117 mg/dL. Patient received 59 units of insulin (40 units of basal and 19 units of bolus). * Fasting today was 83 mg/dL. * In terms of Lantus, this was reduced to 15 units yesterday. Will reduce to 10 units tonight due to decreasing fastings. Will reduce NPH by 20% due to hypoglycemic even at dinner. * Loosen CR slightly due to hypoglycemic event at dinner. 01/12/23 * BSGs yesterday were [phone] mg/dL. Patient received 76 units of insulin (45 units of basal- 25 units of NPH and 20 units of basal; 31 units of bolus). * Fasting today is 105 mg/dL. Will reduce Lantus to 15 units night. * Patient continues on prednisone 40 mg daily. Continue NPH 25 units. * Continue Novolog. Consider tightening CR. 01/10 * BSGs largely improved yesterday, ranging 85-184 mg/dL * Patient received 30 units of Lantus, 25 units of NPH, and 8 units of bolus (63 units total) * Fasting BSG of 73 mg/dL this morning * will decrease basal insulin today (hold AM dose) * Steroids have been tapered to prednisone 40 mg PO daily (day #3 of this dose) * Will maintain current NPH and Novolog parameters to cover steroids 01/08 * Patient received total of 71 units of insulin yesterday, of which 30 units were basal insulin, 25 units NPH to cover steroids * Fasting BSG 144 mg/dL - steroids decreasing to prednisone 40 mg today, plan to scale back on NPH. Continue with scale for HS basal insulin, will give slightly lower dose this AM * No change to CF/CR 01/07 * Patient received total of 123 units of insulin yesterday, of which 40 units were Lantus and 25 units were NPH to cover prednisone * Fasting BSG much improved 110 mg/dL - will scale back on basal. BSGs trending down yesterday with addition of NPH, will continue same NPH dose today. Minimal PO intake noted today * Loosened novolog parameters slightly this AM * Prednisone changed to 40 mg, plan to scale back on NPH dose 01/06 * 87 y/o M admitted for weakness, altered mental status; he has history of DM2 and chronic kidney disease stage 4. Currently with acute renal failure and most likely will be getting dialysis tomorrow. * Patient's blood sugars were reasonably well controlled until 01/04/23. He was started on oral Prednisone 60 mg yesterday and this has caused significant hyperglycemia. Pharmacy consulted today for glycemic management. * BSGs yesterday were [phone] mg/dl. Fasting BSG today was above 400 mg/dl. * Patient had been on Basal insulin 15 units BID until yesterday. This was increased to 20 units BID and he received total 35 units of basal yesterday. * NPH insulin 0.3 units/kg was added this AM to be given with Prednisone to try to prevent hyperglycemia from steroid. * Novolog parameters were tightened * Since patient is now with acute renal failure, serum creat is 7.19 mg/dl this AM, will have to be cautious with dosing basal insulin to avoid accumulation. * Pre-lunch BSG still elevated above 400 mg/dl, so 10 units of IV regular insulin was given as a bolus around noon today. Expect BSGs to trend down this evening. PLAN FOR INPATIENT GLYCEMIC CONTROL: * Basal insulin * Lantus 10 units SC HS * NPH 20 units SC daily w/ prednisone 40 mg PO daily * Bolus insulin * NovoLog per scale ACHS or Q6hrs while NPO * Goal Range: Low 110 mg/dL - High 140 mg/dL * Correction Factor: 25 mg/dL/unit * Nutritional / Prandial insulin per carb ratio of 1 unit per 7 grams CHO consumed
--- NOTE | 2023-01-13 18:51 | Billing Data ---
Date of Service January 13, 2023 Coding Level of Care Code 31961 SUB INP/OBS CARE
[2023-01-13] MEDS: FINASTERIDE 5 MG TAB PO SCH (19:20)
[2023-01-13] MEDS: GABAPENTIN 300 MG CAP PO SCH (19:20)
[2023-01-13] MEDS: TAMSULOSIN HCL 0.4 MG CAP PO SCH (19:20)
[2023-01-13] MEDS: ROSUVASTATIN CALCIUM 5 MG TAB PO SCH (19:21)
[2023-01-13] MEDS: LANTUS PER UNIT CHARGE SQ SCH (22:17)
[2023-01-14] MEDS: ACETAMINOPHEN 500 MG TAB PO SCH ×3 (04:12→18:00)
[2023-01-14] MEDS: LEVOTHYROXINE SODIUM 88 MCG TABLET PO SCH (05:09)
--- NOTE | 2023-01-14 06:51 | Hospitalist Progress Note ---
"Date of Service January 14, 2023 Assessment & Plan (1) Left leg weakness: Plan: Renal Failure | CKD Stage IV AIN - Creatine went from 2.3 to 4.1 in 2 days (baseline 1.8-2). - Creatinine continues to downtrend with dialysis. - CT abdomen/pelvis without stones of nephrolithiasis or hydronephrosis - Consulted nephrology, appreciate recommendations - JUDI/CKD likely from cephalosporin AIN - Continue Prednisone, 40mg today - Strict I's & O's. - Producing minimal quantities of urine, although has slowly been improving - Permacath placed 01/06, HD on 01/06, 01/09, and 01/11. Creatinine downtrending, creatinine improved from 3.78-3.01 on 01/12. Creatinine of 3.05 on 01/13. Stable at this time and continues to improve. We will continue to monitor over the weekend and consider dialysis again on Monday. Unsure if patient will need dialysis long-term. - Holding Bumex, losartan, statin renally dosed - Lopez catheter replaced on 01/11. Anemia of chronic disease Labs on 01/08/2023 showed a normal iron, iron saturation 35%, and a ferritin of 550. SHANNEN will be provided by nephrology during hemodialysis today. Hemoglobin of 9.6 on 01/11. We will continue to monitor with daily labs. *Chest Pain*resolved - While in the middle of his session of HD 01/08, he expressed that he was having right sided chest pain. No radiation. Denied dyspnea. Vital signs stable thr oughout. - EKG without any acute ischemic changes, trop= 16. - Most likely pain associated with perm catheter placement *Hypervolemic Hyponatremia* resolved - Sodium of 122 on 01/06; 137 on 01/10. - Secondary to renal failure, excess free water-> improved with HD - Continue to trend BMP Altered Mental Status: Metabolic Encephalopathy - Patient catatonic on 01/02 p.m. code purple called: vitals stable and CT head normal - Episodes of delirium, could attribute to hospital related delirium vs. uncontrolled pain vs. depression - Also on Klonopin, gabapentin chronically. Episode of catatonia 01/02 afternoon - Will hold further gabapentin Left Leg Pain, Weakness - Pain began abruptly over 1 week ago, no known inciting event but patient was alone at time of onset and has poor recollection of that time - CT Lumbar spine on admission without acute changes - Left leg pain on 12/30/22 with more significant pain with manipulation of hip/rotation and radiates to groin raising concern of hip injury - Hip/Pelvis XR completed: no fractures/acute ana abnormalities - Had been able to participate with PT and leg pain was improved on 12/31, but since then pain is more intense and nonspecific throughout left LE. - Ortho consulted- no plans for immediate intervention but consider outpatient hip injection -Scheduled Tylenol, Morphine 2mg q4h PRN DM2 - Home regimen; Insulin aspart 15 units with each meal in addition to his home Lantus 30 units BID - Increased insulin requirement secondary to steroids - Hemoglobin a1c= 11.5 on 09/2022, repeat on admission a1c 9.5% - Pharmacy consulted for glycemic control UTI- Resolved - UA consistent with UTI, urine culture from 12/27 growing Klebsiella that was susceptible to ceftriaxone - Urine culture from admission: final culture with no growth - Considering recent history of multiple UTIs, bacteremia- completed course of antibiotics Hypertension Patient on losartan 25 mg once a day and metoprolol 25 mg twice a day. Continue on metoprolol, hold losartan given renal function. Patient with some asymptomatic episodes of hypertension during admission. Patient on 40 mg prednisone. Nephrology states to decrease to 30 mg. If blood pressure remains elevated should start on amlodipine 5 mg daily and increase as needed Anxiety - Continue clonazepam Hypothyroidism - Continue levothyroxine - TSH= 1.9 on 12/01 Heart failure with preserved ejection fraction, CAD - last echo (11/10/2022) LVEF 60-65%, moderate - Does not appear to be hypervolemic - continue metoprolol, statin, aspirin, hold losartan in the setting of JUDI COPD - continue Breo, Incruse - Albuterol prn Paroxysmal A-fib - continue Eliquis and metoprolol GERD - continue pantoprazole Diet: Low K, carb consistent, Dispo: Med Surg with tele Code: DNR/DNI VTE Prophylaxis: Eliquis PT/OT: Consulted Case management: Consult (2) Acute UTI (urinary tract infection): (3) Chronic kidney disease, stage 4 (severe): (4) Acute kidney injury: (5) Hyperkalemia: (6) Hypothyroidism: (7) Hypertension: (8) Dyslipidemia: (9) Paroxysmal atrial fibrillation: (10) Anxiety: (11) Anemia of chronic disease: (12) AIN (acute interstitial nephritis): Admission and Anticipated Discharge Date Admission Date: December 29, 2022 Supervising Physician Co-Signing Physician Notes I personally examined the patient and verified all aguayo points of history and exam, discussed case, and agree with decision making with Dr Chan feeling ok happy that numbers are staying stable feeling good, hopeful about going home soon vitals noted nad heent nc at mmm breathing unlabored no accessory muscles good effort skin no rashes/pallor/icterus, neuro no focal deficits AIN - causing ARF again - was on HD again. ?etiology for multiple episodes of AINnot clear, but fortunately no evidence of malignancy on multiple recent CTs that essentially encompass him from head to toe, and peripheral smear was without evidence of concerning findings. Showing stability, hopefully these are signs of renal recovery. otherwise as above Subjective Patient was seen bedside this morning. He was resting comfortably. Reviewed with nurse no issues or complaints at this time. Review of Systems Review of Systems: All systems reviewed & are unremarkable except as noted in Subjective Physical Exam Physical Exam: Constitutional: well-appearing, no acute distress HEENT: NCAT, no conjunctival injection, right IJ TCC CV: regular rhythm, no murmur appreciated, extremities well-perfused, +1 pitting edema left LE to mid betts, trace LE edema on right Resp: CTABL, no wheezes/rales/rhonchi appreciated, no increased work of breathing GI: soft, nondistended, nontender ; Lopez catheter in place MSK: no gross deformities appreciated Skin: warm, dry, no rash appreciated, perm catheter in place, Neuro: alert, oriented, no focal neurologic deficit appreciated Results & Data Results & Data Vital Signs (Past 12 Hours) Vital Signs Temp Pulse Pulse Resp BP Pulse Ox O2 Del Method 01/14/23 03:17 36.4 C L 54 L 16 169/65 H 98 Room Air 01/14/23 02:03 Room Air 01/13/23 22:00 54 L 01/14/23 00:37 36.4 C L 59 L 16 195/75 H 96 Room Air 01/13/23 19:56 36.5 C 63 20 190/66 H 97 Room Air Resident Activity Tracking Resident Involvement: Resident Care Provided Care Provided: Adult Hospital Medicine (6) Hypothyroidism Hypothyroidism type: unspecified Qualified Code(s): E03.9 - Hypothyroidism, unspecified (7) Hypertension Hypertension type: essential hypertension Qualified Code(s): I10 - Essential (primary) hypertension"
[2023-01-14 07:12] LABS: BUN Creatinine Ratio 22.1 (10-20); Calcium 7.6 mg/dl (8.6-10.3); Est GFR (African American) 19.7 ml/min; Potassium 4.3 mmol/L (3.5-5.1)
[2023-01-14 07:26] LABS: Hematocrit (blood only) 29.7 % (42.0-52.0); Hemoglobin 9.6 g/dl (14.0-18.0); Mean Corpuscular Hemoglobin 30.5 pg (25.0-34.0); Mean Corpuscular Hgb Conc 32.3 g/dL (32.0-36.0); Mean Corpuscular Volume 94.3 fL (80.0-100.0); Mean Platelet Volume 8.8 fL (9.4-12.4); Platelet Count 212 K/uL (130-400); RDW Coefficient of Variation 15.3 % (11.5-14.5); Red Blood Count 3.15 M/uL (4.70-6.10); White Blood Count 9.41 K/ul (4.8-10.8)
[2023-01-14] MEDS: CALCIUM ACETATE 667 MG CAP/TAB PO SCH ×3 (08:12→18:01)
[2023-01-14] MEDS: FLUTICASONE/VILANTEROL 200/25MCG 14 PUFFS/INHALER INH SCH (08:12)
[2023-01-14] MEDS: APIXABAN 2.5 MG TAB PO SCH ×2 (08:12→21:00)
[2023-01-14] MEDS: ASPIRIN 81 MG ECTAB PO SCH (08:12)
[2023-01-14] MEDS: PANTOprazole 40 MG TAB PO SCH ×2 (08:12→21:01)
[2023-01-14] MEDS: METOPROLOL TARTRATE 25 MG TAB PO SCH ×2 (08:12→20:59)
[2023-01-14] MEDS: GABAPENTIN 100 MG CAP PO SCH (08:12)
[2023-01-14] MEDS: UMECLIDINIUM/VILANTEROL 62.5/25MCG 7 PUFFS/INHALER INH SCH (08:12)
[2023-01-14] MEDS: predniSONE 20 MG TAB PO SCH (08:12)
[2023-01-14] MEDS: clonazePAM 1 MG TAB PO SCH ×2 (08:20→20:58)
[2023-01-14] MEDS ORDERED: INSULIN HUMAN NPH SC SCH (09:00)
[2023-01-14] MEDS: INSULIN ASPART PER UNIT CHARGE SC SCH ×4 (09:59→20:52)
--- NOTE | 2023-01-14 12:10 | Nephrology Progress Note ---
Date of Service January 14, 2023 Assessment & Plan (1) Chronic kidney disease, stage 4 (severe): (2) Acute hyperglycemia: (3) Bacteremia: (4) UTI (urinary tract infection): (5) Hypertension: Plan 87 year old male with stage IIIb/IV CKD baseline creatinine around 2, admitted with change in mental status and UTI. On admission creatinine was 2.4 which rapidly worsen which was thought to be secondary to AIN after started on Rocephin. Completed antibiotic course then started on prednisone. Had tunneled dialysis catheter on 01/06 and had 3 dialysis, last dialysis was 01/11/2023. Creatinine has been staying relatively stable around mid 3, electrolyte acceptable. On prednisone 40 mg daily. Renal function relatively stable off of dialysis for last 3 days, creatinine around 3.3, Electrolyte acceptable. Hemoglobin low but stable at 9.6. -- Decrease prednisone to 30 mg daily. -- If blood pressure remain elevated, will start on amlodipine 5 mg daily and increase as needed --Continue to monitor renal function for recovery, if renal function stay stable or improved, will arrange for tunneled dialysis catheter removal early next week --Dose medications for EGFR less than 30 Will follow Admission and Anticipated Discharge Date Admission Date: December 29, 2022 Tracy Downing was seen and evaluated this morning. He reports participating well in physical therapy and slowly getting stronger. Has been voiding normally, denies shortness of breath. Renal function staying relatively stable, electrolyte acceptable off of dialysis last 3 days. Blood pressure acceptable. On prednisone 40 mg daily. Review of Systems Review of Systems: Detailed review of system was done and pertinent positives and negatives are mentioned above. Physical Exam Constitutional: WD/WN, vitals as above + ill appearing; no acute distress Eyes: + anicteric sclerae Neck: normal visual inspection Respiratory: no respiratory distress Auscultation: + diminished lung sounds Cardiovascular: Rate/Rhythm: regular rate and regular rhythm Extremities: + edema (trace b/l LE edema) Skin: no rashes, warm and dry Neurologic: no focal motor deficits Psychiatric: Orientation: alert and oriented x 3 Results & Data Vital Signs (Past 12 Hours) Vital Signs Temp Pulse Pulse Resp BP Pulse Ox O2 Del Method 01/14/23 11:03 36.4 C L 54 L 18 181/72 H 96 Room Air 01/14/23 07:24 36.3 C L 62 16 204/75 H 92 Room Air 01/14/23 06:54 52 L 01/14/23 03:17 36.4 C L 54 L 16 169/65 H 98 Room Air 01/14/23 02:03 Room Air 01/14/23 00:37 36.4 C L 59 L 16 195/75 H 96 Room Air PG Care Time/CCT Total # of Minutes Spent Total Time Spent with Patient: Total time spent is greater than 50% in coordination of care (as documented) at patient's floor/unit and/or counseling patient: Coding Level of Care Code 86281 SUB INP/OBS CARE 235MIN Diagnoses Chronic kidney disease, stage 4 (severe) N18.4 Acute hyperglycemia R73.9 Bacteremia R78.81 UTI (urinary tract infection) N39.0 Hypertension I10 Hypertension type: essential hypertension (5) Hypertension Hypertension type: essential hypertension Qualified Code(s): I10 - Essential (primary) hypertension
--- NOTE | 2023-01-14 18:25 | Billing Data ---
Date of Service January 14, 2023 Coding Level of Care Code 54642 SUB INP/OBS CARE
[2023-01-14] MEDS: LANTUS PER UNIT CHARGE SQ SCH (20:53)
[2023-01-14] MEDS: ROSUVASTATIN CALCIUM 5 MG TAB PO SCH (20:59)
[2023-01-14] MEDS: GABAPENTIN 300 MG CAP PO SCH (21:00)
[2023-01-14] MEDS: FINASTERIDE 5 MG TAB PO SCH (21:00)
[2023-01-14] MEDS: TAMSULOSIN HCL 0.4 MG CAP PO SCH (21:01)
[2023-01-15] MEDS: ACETAMINOPHEN 500 MG TAB PO SCH ×3 (03:59→18:10)
[2023-01-15] MEDS: LEVOTHYROXINE SODIUM 88 MCG TABLET PO SCH (05:30)
[2023-01-15] MEDS ORDERED: hydrALAZINE HCL 20 MG/ML VIAL IV STA (05:40)
--- NOTE | 2023-01-15 06:58 | Hospitalist Progress Note ---
"Date of Service January 15, 2023 Assessment & Plan (1) Left leg weakness: Plan: Renal Failure | CKD Stage IV AIN - Creatine went from 2.3 to 4.1 in 2 days (baseline 1.8-2). Creatinine peaked at 7.19 on 01/06. - Creatinine continues to downtrend with dialysis. Creatinine of 2.7 on 01/15 - CT abdomen/pelvis without stones of nephrolithiasis or hydronephrosis - Consulted nephrology, appreciate recommendations - JUDI/CKD likely from cephalosporin AIN - Continue Prednisone, 40mg today - Strict I's & O's. - Producing minimal quantities of urine, although has slowly been improving - Permacath placed 01/06, HD on 01/06, 01/09, and 01/11. Creatinine downtrending, creatinine improved from 3.78-3.01 on 01/12. Creatinine of 2.7 on 01/15 stable at this time and continues to improve. We will continue to monitor over the weekend and consider dialysis again on Monday. Unsure if patient will need dialysis long-term, though seems unlikely given appropriate response to dialysis. - Holding Bumex, losartan, statin renally dosed - Lopez catheter replaced on 01/11. Anemia of chronic disease Labs on 01/08/2023 showed a normal iron, iron saturation 35%, and a ferritin of 550. SHANNEN will be provided by nephrology during hemodialysis today. Hemoglobin of 9.6 on 01/11. We will continue to monitor with daily labs. *Chest Pain*resolved - While in the middle of his session of HD 01/08, he expressed that he was having right sided chest pain. No radiation. Denied dyspnea. Vital signs stable throughout. - EKG without any acute ischemic changes, trop= 16. - Most likely pain associated with perm catheter placement *Hypervolemic Hyponatremia* resolved - Sodium of 122 on 01/06; 137 on 01/10. - Secondary to renal failure, excess free water-> improved with HD - Continue to trend BMP Altered Mental Status: Metabolic Encephalopathy - Patient catatonic on 01/02 p.m. code purple called: vitals stable and CT head normal - Episodes of delirium, could attribute to hospital related delirium vs. uncontrolled pain vs. depression - Also on Klonopin, gabapentin chronically. Episode of catatonia 01/02 afternoon - Will hold further gabapentin Left Leg Pain, Weakness - Pain began abruptly over 1 week ago, no known inciting event but patient was alone at time of onset and has poor recollection of that time - CT Lumbar spine on admission without acute changes - Left leg pain on 12/30/22 with more significant pain with manipulation of hip/rotation and radiates to groin raising concern of hip injury - Hip/Pelvis XR completed: no fractures/acute ana abnormalities - Had been able to participate with PT and leg pain was improved on 12/31, but since then pain is more intense and nonspecific throughout left LE. - Ortho consulted- no plans for immediate intervention but consider outpatient hip injection -Scheduled Tylenol, Morphine 2mg q4h PRN DM2 - Home regimen; Insulin aspart 15 units with each meal in addition to his home Lantus 30 units BID - Increased insulin requirement secondary to steroids - Hemoglobin a1c= 11.5 on 09/2022, repeat on admission a1c 9.5% - Pharmacy consulted for glycemic control UTI- Resolved - UA consistent with UTI, urine culture from 12/27 growing Klebsiella that was susceptible to ceftriaxone - Urine culture from admission: final culture with no growth - Considering recent history of multiple UTIs, bacteremia- completed course of antibiotics Hypertension Patient on losartan 25 mg once a day and metoprolol 25 mg twice a day. Continue on metoprolol, hold losartan given renal function. Patient with some asymptomatic episodes of hypertension during admission. Patient on 40 mg prednisone. Nephrology will decrease to 30 mg on 01/15. Due to persistent elevated hypertension we will start on amlodipine 5 mg on 01/15 and titrate up as needed for nephrology's recommendations. Anxiety - Continue clonazepam Hypothyroidism - Continue levothyroxine - TSH= 1.9 on 12/01 Heart failure with preserved ejection fraction, CAD - last echo (11/10/2022) LVEF 60-65%, moderate - Does not appear to be hypervolemic - continue metoprolol, statin, aspirin, hold losartan in the setting of JUDI COPD - continue Breo, Incruse - Albuterol prn Paroxysmal A-fib - continue Eliquis and metoprolol GERD - continue pantoprazole Diet: Low K, carb consistent, Dispo: Med Surg with tele Code: DNR/DNI VTE Prophylaxis: Eliquis PT/OT: Consulted Case management: Consult (2) Acute UTI (urinary tract infection): (3) Chronic kidney disease, stage 4 (severe): (4) Acute kidney injury: (5) Hyperkalemia: (6) Hypothyroidism: (7) Hypertension: (8) Dyslipidemia: (9) Paroxysmal atrial fibrillation: (10) Anxiety: (11) Anemia of chronic disease: (12) AIN (acute interstitial nephritis): Admission and Anticipated Discharge Date Admission Date: December 29, 2022 Supervising Physician Co-Signing Physician Notes I personally examined the patient and verified all aguayo points of history and exam, discussed case, and agree with decision making with Dr Chan hoping that they will be able to pull his dialysis access tomorrow, hoping to get home hopefully as soon as tomorrow. vitals noted nad heent nc at mmm breathing unlabored no accessory muscles good effort skin no rashes/pallor/icterus, neuro no focal deficits AIN - causing ARF again - was on HD again. ?etiology for multiple episodes of AINnot clear, but fortunately no evidence of malignancy on multiple recent CTs that essentially encompass him from head to toe, and peripheral smear was without evidence of concerning findings. Creatinine improvedawait tomorrow's labs and nephrology follow-up, but if we are continuing to see improvement, I do think it would be quite reasonable to pull his dialysis catheter and get him home tomorrow if possible. otherwise as above Subjective Patient was seen bedside this morning. Patient has no issues or complaints today. He denies any shortness of breath, cough, abdominal pain. Urinary output has been low though continues to improve. Review of Systems Review of Systems: All systems reviewed & are unremarkable except as noted in Subjective Physical Exam Physical Exam: Constitutional: well-appearing, no acute distress HEENT: NCAT, no conjunctival injection, right IJ TCC CV: regular rhythm, holosystolic murmur best heard at the left sternal border, extremities well-perfused, +1 pitting edema left LE to mid betts, trace LE edema on right Resp: CTABL, no wheezes/rales/rhonchi appreciated, no increased work of breathing GI: soft, nondistended, nontender ; Lopez catheter in place MSK: no gross deformities appreciated Skin: warm, dry, no rash appreciated, perm catheter in place, Neuro: alert, oriented, no focal neurologic deficit appreciated Results & Data Results & Data Vital Signs (Past 12 Hours) Vital Signs Temp Pulse Pulse Resp BP BP Pulse Ox 01/15/23 05:34 196/82 H 01/15/23 03:00 36.5 C 60 20 194/80 H 98 01/15/23 03:24 204/83 H 01/14/23 22:49 62 01/15/23 00:05 36.5 C 63 20 167/66 H 97 01/14/23 19:56 36.8 C 69 20 166/71 H 97 O2 Del Method 01/15/23 05:34 01/15/23 03:00 Room Air 01/15/23 03:24 01/14/23 22:49 01/15/23 00:05 Room Air 01/14/23 19:56 Room Air Resident Activity Tracking Resident Involvement: Resident Care Provided Care Provided: Adult Hospital Medicine (6) Hypothyroidism Hypothyroidism type: unspecified Qualified Code(s): E03.9 - Hypothyroidism, unspecified (7) Hypertension Hypertension type: essential hypertension Qualified Code(s): I10 - Essential (primary) hypertension"
[2023-01-15 07:19] LABS: Hematocrit (blood only) 32.1 % (42.0-52.0); Hemoglobin 10.6 g/dl (14.0-18.0); Mean Corpuscular Volume 93.9 fL (80.0-100.0); Mean Platelet Volume 9.1 fL (9.4-12.4); Platelet Count 193 K/uL (130-400); RDW Coefficient of Variation 15.1 % (11.5-14.5); RDW Standard Deviation 50.8 fL (36.4-46.3); Red Blood Count 3.42 M/uL (4.70-6.10)
[2023-01-15 07:33] LABS: BUN Creatinine Ratio 29.3 (10-20); Calcium 7.6 mg/dl (8.6-10.3); Creatinine Clr Calc Pharmacy 19.5 ml/min; Est GFR (African American) 23.5 ml/min; Est GFR (Non-African American) 20.3 ml/min; Potassium 4.2 mmol/L (3.5-5.1)
[2023-01-15] MEDS ORDERED: INSULIN HUMAN NPH SC SCH ×2 (09:00)
[2023-01-15] MEDS ORDERED: predniSONE 10 MG TABLET PO SCH (09:00)
[2023-01-15] MEDS: CALCIUM ACETATE 667 MG CAP/TAB PO SCH ×3 (09:55→17:46)
[2023-01-15] MEDS: APIXABAN 2.5 MG TAB PO SCH ×2 (09:55→20:35)
[2023-01-15] MEDS: amLODIPine BESYLATE 5 MG TAB PO SCH (09:55)
[2023-01-15] MEDS: METOPROLOL TARTRATE 25 MG TAB PO SCH ×2 (09:55→20:34)
[2023-01-15] MEDS: PANTOprazole 40 MG TAB PO SCH ×2 (09:55→20:36)
[2023-01-15] MEDS: GABAPENTIN 100 MG CAP PO SCH (09:55)
[2023-01-15] MEDS: FLUTICASONE/VILANTEROL 200/25MCG 14 PUFFS/INHALER INH SCH (09:56)
[2023-01-15] MEDS: ASPIRIN 81 MG ECTAB PO SCH (09:56)
[2023-01-15] MEDS: UMECLIDINIUM/VILANTEROL 62.5/25MCG 7 PUFFS/INHALER INH SCH (09:56)
[2023-01-15] MEDS: INSULIN ASPART PER UNIT CHARGE SC SCH ×4 (10:01→20:38)
[2023-01-15] MEDS: clonazePAM 1 MG TAB PO SCH ×2 (10:01→20:36)
--- NOTE | 2023-01-15 11:15 | Nephrology Progress Note ---
Date of Service January 15, 2023 Assessment & Plan (1) Chronic kidney disease, stage 4 (severe): (2) Acute hyperglycemia: (3) Bacteremia: (4) UTI (urinary tract infection): (5) Hypertension: Plan 87 year old male with stage IIIb/IV CKD baseline creatinine around 2, admitted with change in mental status and UTI. On admission creatinine was 2.4 which rapidly worsen which was thought to be secondary to AIN after started on Rocephin. Completed antibiotic course then started on prednisone. Had tunneled dialysis catheter on 01/06 and had 3 dialysis, last dialysis was 01/11/2023. Creatinine has been staying relatively stable around mid 3, electrolyte acceptable. On prednisone 40 mg daily. Renal function relatively stable off of dialysis for last 3 days, creatinine down to 2.7, Electrolyte acceptable. -- Decrease prednisone to 20 mg daily. -- If blood pressure remain elevated, will start on amlodipine 5 mg daily and increase as needed --will arrange for tunneled dialysis catheter removal tomorrow --Dose medications for EGFR less than 30 Will follow Admission and Anticipated Discharge Date Admission Date: December 29, 2022 Tracy Downing was seen and evaluated this morning. Has been voiding normally, denies shortness of breath. Renal function slowly improving, electrolyte acceptable off of dialysis last 4 days. Blood pressure elevated. . Review of Systems Review of Systems: Detailed review of system was done and pertinent positives and negatives are mentioned above. Physical Exam Constitutional: WD/WN, vitals as above + ill appearing; no acute distress Eyes: + anicteric sclerae Neck: normal visual inspection Respiratory: no respiratory distress Auscultation: + diminished lung sounds Cardiovascular: Rate/Rhythm: regular rate and regular rhythm Extremities: + edema (trace b/l LE edema) Skin: no rashes, warm and dry Neurologic: no focal motor deficits Psychiatric: Orientation: alert and oriented x 3 Results & Data Vital Signs (Past 12 Hours) Vital Signs Temp Pulse Pulse Resp BP BP Pulse Ox 01/15/23 07:14 36.6 C 60 18 177/77 H 97 01/15/23 07:44 60 01/15/23 05:34 196/82 H 01/15/23 03:00 36.5 C 60 20 194/80 H 98 01/15/23 03:24 204/83 H 01/15/23 00:05 36.5 C 63 20 167/66 H 97 O2 Del Method 01/15/23 07:14 Room Air 01/15/23 07:44 01/15/23 05:34 01/15/23 03:00 Room Air 01/15/23 03:24 01/15/23 00:05 Room Air PG Care Time/CCT Total # of Minutes Spent Total Time Spent with Patient: Total time spent is greater than 50% in coordination of care (as documented) at patient's floor/unit and/or counseling patient: Coding Level of Care Code 64565 SUB INP/OBS CARE 2/35MIN Diagnoses Chronic kidney disease, stage 4 (severe) N18.4 Acute hyperglycemia R73.9 Bacteremia R78.81 UTI (urinary tract infection) N39.0 Hypertension I10 Hypertension type: essential hypertension (5) Hypertension Hypertension type: essential hypertension Qualified Code(s): I10 - Essential (primary) hypertension
--- NOTE | 2023-01-15 18:29 | Billing Data ---
Date of Service January 15, 2023 Coding Level of Care Code 59510 SUB INP/OBS CARE
[2023-01-15] MEDS: GABAPENTIN 300 MG CAP PO SCH (20:35)
[2023-01-15] MEDS: ROSUVASTATIN CALCIUM 5 MG TAB PO SCH (20:36)
[2023-01-15] MEDS: FINASTERIDE 5 MG TAB PO SCH (20:37)
[2023-01-15] MEDS: TAMSULOSIN HCL 0.4 MG CAP PO SCH (20:37)
[2023-01-15] MEDS: LANTUS PER UNIT CHARGE SQ SCH (20:38)
[2023-01-16] MEDS: ACETAMINOPHEN 500 MG TAB PO SCH ×3 (04:05→18:16)
--- NOTE | 2023-01-16 06:50 | Hospitalist Progress Note ---
"Date of Service January 16, 2023 Assessment & Plan (1) Left leg weakness: Plan: Renal Failure | CKD Stage IV AIN - Creatine went from 2.3 to 4.1 in 2 days (baseline 1.8-2). Creatinine peaked at 7.19 on 01/06. - Nephrology consulted, JUDI/CKD likely from cephalosporin AIN. - Creatinine continues to downtrend with dialysis. Has received 3 rounds of dialysis on 01/06, 01/09, and 01/11. - Prednisone taper started at 40 mg. Currently on 10 mg. - Permacath placed on 01/06 will be removed on 01/16. - Resuming bumex 01/16. Holding losartan, statin renally dosed. - Lopez catheter replaced on 01/11. We will need voiding trial before DC. Anemia of chronic disease Labs on 01/08/2023 showed a normal iron, iron saturation 35%, and a ferritin of 550. Received SHANNEN during hemodialysis. *Hypervolemic Hyponatremia* resolved - Sodium of 122 on 01/06; 137 on 01/10. - Secondary to renal failure, excess free water-> improved with HD - Continue to trend BMP *Altered Mental Status: Metabolic Encephalopathy* resolved - Patient catatonic on 01/02 p.m. code purple called: vitals stable and CT head normal - Episodes of delirium, could attribute to hospital related delirium vs. uncontrolled pain vs. depression - Also on Klonopin, gabapentin chronically. Episode of catatonia 01/02 afternoon -Resolved at this time. Left Leg Pain, Weakness - Pain began abruptly over 1 week ago. No injury. - CT Lumbar spine, Hip/Pelvis XR completed: negative. -Ortho consulted, no plans for immediate intervention. May consider outpatient hip injection. Continue pain meds. DM2 - Home regimen; Insulin aspart 15 units with each meal in addition to his home Lantus 30 units BID - Increased insulin requirement secondary to steroids - Hemoglobin a1c= 11.5 on 09/2022, repeat on admission a1c 9.5% - Pharmacy consulted for glycemic control UTI- Resolved - UA consistent with UTI, urine culture from 12/27 growing Klebsiella that was susceptible to ceftriaxone - Urine culture from admission: final culture with no growth - Considering recent history of multiple UTIs, bacteremia- completed course of antibiotics Hypertension Patient on losartan 25 mg once a day and metoprolol 25 mg twice a day. Continue on metoprolol, hold losartan given renal function. increase amlodipine to 10 mg on 01/16 Heart failure with preserved ejection fraction, CAD - last echo (11/10/2022) LVEF 60-65%, moderate - continue metoprolol, statin, aspirin, hold losartan in the setting of JUDI - Resume bumex 01/16. COPD - continue Breo, Incruse - Albuterol prn Paroxysmal A-fib - continue Eliquis and metoprolol GERD - continue pantoprazole Diet: Low K, carb consistent, Dispo: Med Surg with tele Code: DNR/DNI VTE Prophylaxis: Eliquis PT/OT: Consulted Case management: Consult (2) Acute UTI (urinary tract infection): (3) Chronic kidney disease, stage 4 (severe): (4) Acute kidney injury: (5) Hyperkalemia: (6) Hypothyroidism: (7) Hypertension: (8) Dyslipidemia: (9) Paroxysmal atrial fibrillation: (10) Anxiety: (11) Anemia of chronic disease: (12) AIN (acute interstitial nephritis): Admission and Anticipated Discharge Date Admission Date: December 29, 2022 Subjective Patient was seen bedside this morning. No issues or concerns at this time. Patient is currently waiting to have his permacath removed today in the OR. Review of Systems Review of Systems: All systems reviewed & are unremarkable except as noted in Subjective Physical Exam Physical Exam: Constitutional: well-appearing, no acute distress HEENT: NCAT, no conjunctival injection, right IJ TCC CV: regular rhythm, holosystolic murmur best heard at the left sternal border, extremities well-perfused, +1 pitting edema left LE to mid betts, trace LE edema on right Resp: CTABL, no wheezes/rales/rhonchi appreciated, no increased work of breathing GI: soft, nondistended, nontender ; Lopez catheter in place MSK: no gross deformities appreciated Skin: warm, dry, no rash appreciated, perm catheter in place, Neuro: alert, oriented, no focal neurologic deficit appreciated Results & Data Results & Data Vital Signs (Past 12 Hours) Vital Signs Temp Pulse Pulse Resp BP Pulse Ox O2 Del Method 01/16/23 04:28 36.4 C L 65 20 170/73 H 98 Room Air 01/15/23 22:39 62 01/16/23 00:43 36.7 C 63 20 180/83 H 98 Room Air 01/15/23 23:02 Room Air 01/15/23 20:00 36.7 C 63 20 142/69 H 97 Room Air Resident Activity Tracking Resident Involvement: Resident Care Provided Care Provided: Adult Hospital Medicine (6) Hypothyroidism Hypothyroidism type: unspecified Qualified Code(s): E03.9 - Hypothyroidism, unspecified (7) Hypertension Hypertension type: essential hypertension Qualified Code(s): I10 - Essential (primary) hypertension"
[2023-01-16] MEDS: LEVOTHYROXINE SODIUM 88 MCG TABLET PO SCH (07:37)
[2023-01-16] MEDS: METOPROLOL TARTRATE 25 MG TAB PO SCH (07:38)
[2023-01-16] MEDS: APIXABAN 2.5 MG TAB PO SCH (07:38)
[2023-01-16] MEDS: CALCIUM ACETATE 667 MG CAP/TAB PO SCH ×3 (07:39→18:17)
[2023-01-16] MEDS: amLODIPine BESYLATE 5 MG TAB PO SCH (07:39)
[2023-01-16 07:40] LABS: Hematocrit (blood only) 31.7 % (42.0-52.0); Hemoglobin 10.2 g/dl (14.0-18.0); Mean Corpuscular Hemoglobin 30.4 pg (25.0-34.0); Mean Corpuscular Hgb Conc 32.2 g/dL (32.0-36.0); Mean Corpuscular Volume 94.6 fL (80.0-100.0); Mean Platelet Volume 9.1 fL (9.4-12.4); Platelet Count 168 K/uL (130-400); RDW Coefficient of Variation 15.7 % (11.5-14.5); RDW Standard Deviation 53.9 fL (36.4-46.3); Red Blood Count 3.35 M/uL (4.70-6.10); White Blood Count 9.64 K/ul (4.8-10.8)
[2023-01-16] MEDS: ASPIRIN 81 MG ECTAB PO SCH (07:40)
[2023-01-16] MEDS: PANTOprazole 40 MG TAB PO SCH (07:41)
[2023-01-16] MEDS: GABAPENTIN 100 MG CAP PO SCH (07:41)
[2023-01-16] MEDS: UMECLIDINIUM/VILANTEROL 62.5/25MCG 7 PUFFS/INHALER INH SCH (07:43)
[2023-01-16] MEDS: FLUTICASONE/VILANTEROL 200/25MCG 14 PUFFS/INHALER INH SCH (07:43)
[2023-01-16] MEDS: clonazePAM 1 MG TAB PO SCH (07:47)
[2023-01-16 08:04] LABS: Albumin Level 2.3 gm/dl (3.4-5.0); BUN Creatinine Ratio 33.2 (10-20); Calcium 7.5 mg/dl (8.6-10.3); Creatinine Clr Calc Pharmacy 21.7 ml/min; Est GFR (African American) 26.2 ml/min; Est GFR (Non-African American) 22.6 ml/min; Phosphorus 5.2 mg/dl (2.5-4.9); Potassium 4.4 mmol/L (3.5-5.1)
--- NOTE | 2023-01-16 08:13 | Nephrology Progress Note ---
Date of Service January 16, 2023 Assessment & Plan (1) Chronic kidney disease, stage 4 (severe): (2) Acute hyperglycemia: (3) Bacteremia: (4) UTI (urinary tract infection): (5) Hypertension: Plan 87 year old male with stage IIIb/IV CKD baseline creatinine around 2, admitted with change in mental status and UTI. On admission creatinine was 2.4 which rapidly worsen which was thought to be secondary to AIN after started on Rocephin, started on prednisone. Completed antibiotic course then started on prednisone. Had tunneled dialysis catheter on 01/06 and had 3 dialysis, last dialysis was 01/11/2023. Creatinine has been staying relatively stable around mid 3, electrolyte acceptable. Renal function has been slowly improving, creatinine down to 2.5, Electrolyte acceptable. -- Decrease prednisone to 10 mg daily. -- start back on Bumex 1 mg daily --high risk for repeated JUDI and worsening of renal function in future, may need to consider AV fistula placement as an outpatient. --Dose medications for eGFR less than 30 Will follow Admission and Anticipated Discharge Date Admission Date: December 29, 2022 Tracy Downing was off floor this morning for tunneled dialysis catheter removal. No overnight events, he has been otherwise stable. Renal function slowly improving,cr down to 2.5 Blood pressure elevated. . Results & Data Vital Signs (Past 12 Hours) Vital Signs Temp Pulse Pulse Resp BP BP Pulse Ox 01/16/23 07:36 36.4 C L 61 16 198/70 H 98 01/16/23 04:28 36.4 C L 65 20 170/73 H 98 01/15/23 22:39 62 01/16/23 00:43 36.7 C 63 20 180/83 H 98 01/15/23 23:02 O2 Del Method 01/16/23 07:36 Room Air 01/16/23 04:28 Room Air 01/15/23 22:39 01/16/23 00:43 Room Air 01/15/23 23:02 Room Air PG Care Time/CCT Total # of Minutes Spent Total Time Spent with Patient: Total time spent is greater than 50% in coordination of care (as documented) at patient's floor/unit and/or counseling patient: Coding Level of Care Code 22062 SUB INP/OBS CARE 25MIN Diagnoses Chronic kidney disease, stage 4 (severe) N18.4 Acute hyperglycemia R73.9 Bacteremia R78.81 UTI (urinary tract infection) N39.0 Hypertension I10 Hypertension type: essential hypertension (5) Hypertension Hypertension type: essential hypertension Qualified Code(s): I10 - Essential (primary) hypertension
[2023-01-16] MEDS: INSULIN ASPART PER UNIT CHARGE SC SCH ×3 (08:27→18:16)
[2023-01-16] MEDS ORDERED: INSULIN HUMAN NPH SC SCH (09:00)
[2023-01-16] MEDS ORDERED: predniSONE 20 MG TAB PO SCH (09:00)
[2023-01-16] MEDS ORDERED: amLODIPine BESYLATE 5 MG TAB PO SCH (09:00)
[2023-01-16] MEDS ORDERED: BUMETANIDE 1 MG TAB PO SCH (09:45)
--- NOTE | 2023-01-16 09:46 | Surgery Progress Note ---
Date of Service January 16, 2023 Assessment & Plan (1) Acute renal failure: Plan: Pt with acute renal failure and worsening cr, started on ANIMATION CAMERA OPERATOR, now with renal recovery and no longer requiring HD. Pt also seen by Dr Ramirez today. Planning for permcath removal later this AM. Pt agreeable. Admission and Anticipated Discharge Date Admission Date: December 29, 2022 Subjective 87 yo m with hx of DMII, CKD, HTN, a fib, CHF, CAD, BPH, OH, GERD, COPD, dyslipidemia, admitted with worsening renal fxn and started on ANIMATION CAMERA OPERATOR via permcath placed by Dr Ramirez about 1 week ago, seen in f/u today for removal of permcath per nephrology request. Pt apparently recovering some renal fxn and no longer requiring HD. Pt states feeling ok. Denies MOON, fever, chest pain, SOB, ad pain, N/V, rest pain, claudication, other complaints. Review of Systems Review of Systems: All systems reviewed & are unremarkable except as noted in HPI & below Physical Exam Physical Exam: Constitutional:L WD/WN, vitals as a july + morbidly o bese; not in distr ess Neck: trachea midline Respiratory: normal respiratory effort, lungs isai ar to auscultation Auscultation: + diminished lung so unds and + crackle s Cardiovascular:L Rate/Rhythm: regul ar rate and regula r rhythm Vessels: radial pulses pre sent; + abnormal p eripheral pulses Extremities: yamil l capillary refill and + edema Gastrointestinal ( Abdomen): Inspection/Auscult ation: abdomen nor mal to inspection and normal bowel s ounds Percussion/ Palpation: abdomen soft; abdomen non tender Musculoskeletal: no cyanosis or clu bbing, extremities motor strength 5/ 5 Skin: no rashes, warm an d dry Neurologic: moves all extremit ies, awake ; no fo ritika motor deficits Psychiatric: Orientation: alert , oriented to pers on, oriented to pl romy and cooperativ e; oriented to guido e. mild confusion Results & Data Vital Signs (Past 12 Hours) Vital Signs Temp Pulse Pulse Resp BP BP Pulse Ox 01/16/23 08:44 57 L 01/16/23 07:36 36.4 C L 61 16 198/70 H 98 01/16/23 04:28 36.4 C L 65 20 170/73 H 98 01/15/23 22:39 62 08/21/23 00:43 36.7 C 63 20 180/83 H 98 01/15/23 23:02 O2 Del Method 01/16/23 08:44 01/16/23 07:36 Room Air 01/16/23 04:28 Room Air 01/15/23 22:39 01/16/23 00:43 Room Air 01/15/23 23:02 Room Air (1) Acute renal failure Acute renal failure type: unspecified Qualified Code(s): N17.9 - Acute kidney failure, unspecified
[2023-01-16] MEDS ORDERED: LIDOCAINE 1% LOCAL 20 ML VIAL ONE (09:50)
--- NOTE | 2023-01-16 10:20 | History & Physical Bridge Note ---
Date of Service January 16, 2023 History & Physical Bridge Note I have examined the patient, reviewed the History & Physical and in the interval since the performance of the History & Physical I have noted the following changes of clinical significance: no changes noted
--- NOTE | 2023-01-16 10:39 | Operative Report ---
Post Operative Report Pre & Post Diagnosis Operation Date: 01/16/23 08:40 Pre-Op Diagnosis: Functioning Kidneys Post-Op Diagnosis: Functioning Kidneys I identified the patient and participated in the time-out.: Yes Procedure Operation Date: 01/16/23 08:40 Actual Procedures p Perm Catheter Removal(Right) - Bryson Ramirez MD Surgeon Bryson Ramirez MD Reinforced Concrete Inspector none Estimated Blood Loss 0 Findings Consistent with Post-Op Diagnosis Specimens none Anesthesia Type Local Complications none Disposition Accompanied Patient To Recovery: No Disposition: Recovery Room Indications This is an 87-year-old male who had a PermCath placed approximate 10 days prior to this for dialysis. He no longer needs dialysis. Recommended to have the PermCath removed. I have discussed the risks options and benefits of the procedure with the patient. The patient understands the risks options and benefits and agrees to the procedure. Description of Procedure The patient was taken to the angio suite and placed in the supine position. The patient was identified and a timeout performed. The right side of the neck, chest wall and catheter were prepped and draped in a sterile manner. Local anesthesia was then accomplished. Using sharp and blunt dissection, the cuff of the permcath was freed up from the surrounding fibrous tissue. The permcath and cuff were completely removed. Pressure was then applied and adequate hemostasis was obtained. A sterile dressing was then applied. The patient left the operation room in satisfactory condition and tolerated the procedure well. All needle and sponge counts were correct at the end of the procedure. I attest to the content of the Intraoperative Record and any orders documented therein. Any exceptions are noted below.
--- NOTE | 2023-01-16 10:59 | Pharmacy Report ---
Pharmacy Glycemic Short Note 2 - Date of Service January 16, 2023 - Glycemic Short BSG Results (Last 24 hours): 01/15/23 01/15/23 01/15/23 11:51 16:49 20:10 Glucose POC Glucose 182 H 166 H 173 H 01/16/23 01/16/23 07:06 08:08 Glucose 147 H POC Glucose 137 H OUTPATIENT ANTIDIABETIC REGIMEN: * Lantus 30 units SC BID * Novolog 15 units SC prn HbA1c: 9.5% on 12/30/22 ASSESSMENT: 01/16/23 * Patient received total of 65 units of insulin yesterday, of which 25 units were NPH to cover steroids (pred 30 mg) and 10 units were Lantus * Fasting BSG 147 mg/dL - continue same Lantus. Steroids decreasing to 20 mg daily of prednisone therefore will decrease NPH to 20 units for today * Steroids changing again from tomorrow, will plan to decrease NPH further tomorrow 01/13/23 * BSGs yesterday were 105-125-63/63-117 mg/dL. Patient received 59 units of insulin (40 units of basal and 19 units of bolus). * Fasting today was 83 mg/dL. * In terms of Lantus, this was reduced to 15 units yesterday. Will reduce to 10 units tonight due to decreasing fastings. Will reduce NPH by 20% due to hypoglycemic even at dinner. * Loosen CR slightly due to hypoglycemic event at dinner. 01/12/23 * BSGs yesterday were [phone] mg/dL. Patient received 76 units of insulin (45 units of basal- 25 units of NPH and 20 units of basal; 31 units of bolus). * Fasting today is 105 mg/dL. Will reduce Lantus to 15 units night. * Patient continues on prednisone 40 mg daily. Continue NPH 25 units. * Continue Novolog. Consider tightening CR. 01/10 * BSGs largely improved yesterday, ranging 85-184 mg/dL * Patient received 30 units of Lantus, 25 units of NPH, and 8 units of bolus (63 units total) * Fasting BSG of 73 mg/dL this morning * will decrease basal insulin today (hold AM dose) * Steroids have been tapered to prednisone 40 mg PO daily (day #3 of this dose) * Will maintain current NPH and Novolog parameters to cover steroids 01/08 * Patient received total of 71 units of insulin yesterday, of which 30 units were basal insulin, 25 units NPH to cover steroids * Fasting BSG 144 mg/dL - steroids decreasing to prednisone 40 mg today, plan to scale back on NPH. Continue with scale for HS basal insulin, will give slightly lower dose this AM * No change to CF/CR 01/07 * Patient received total of 123 units of insulin yesterday, of which 40 units were Lantus and 25 units were NPH to cover prednisone * Fasting BSG much improved 110 mg/dL - will scale back on basal. BSGs trending down yesterday with addition of NPH, will continue same NPH dose today. Minimal PO intake noted today * Loosened novolog parameters slightly this AM * Prednisone changed to 40 mg, plan to scale back on NPH dose 01/06 * 87 y/o M admitted for weakness, altered mental status; he has history of DM2 and chronic kidney disease stage 4. Currently with acute renal failure and most likely will be getting dialysis tomorrow. * Patient's blood sugars were reasonably well controlled until 01/04/23. He was started on oral Prednisone 60 mg yesterday and this has caused significant hyperglycemia. Pharmacy consulted today for glycemic management. * BSGs yesterday were [phone] mg/dl. Fasting BSG today was above 400 mg/dl. * Patient had been on Basal insulin 15 units BID until yesterday. This was increased to 20 units BID and he received total 35 units of basal yesterday. * NPH insulin 0.3 units/kg was added this AM to be given with Prednisone to try to prevent hyperglycemia from steroid. * Novolog parameters were tightened * Since patient is now with acute renal failure, serum creat is 7.19 mg/dl this AM, will have to be cautious with dosing basal insulin to avoid accumulation. * Pre-lunch BSG still elevated above 400 mg/dl, so 10 units of IV regular insulin was given as a bolus around noon today. Expect BSGs to trend down this evening. PLAN FOR INPATIENT GLYCEMIC CONTROL: * Basal insulin * Lantus 10 units SC HS * NPH 20 units SC daily w/ prednisone 20 mg PO daily * Bolus insulin * NovoLog per scale ACHS or Q6hrs while NPO * Goal Range: Low 110 mg/dL - High 140 mg/dL * Correction Factor: 25 mg/dL/unit * Nutritional / Prandial insulin per carb ratio of 1 unit per 6 grams CHO consumed
--- NOTE | 2023-01-16 16:16 | Discharge Summary ---
"Date of Service January 16, 2023 Admission HPI Per Admitting Provider 87 year old male with a past medical history of anemia of chronic disease, CKD 4, HHS, UTI, DVT, PVD, COPD, P A-fib, CAD, CHF on basal insulin presenting with left LE weakness for the past 6 days. States that he can not move or lift that left secondary to both pain. Has been in bed for a lot of the past week. Has been urinating. Had not urinated since this morning prior to arrival, but did urinate in the ED. also notes that he has had intermittent delirium, which has gotten worse over this time period. Had a UA on 12/27 that grew klebsiella and was put on ampicillin, sensitives show it was resistant to ampicillin. Plan was to switch to Augmentin today, but never got from pharmacy. He was seen by his PCP this afternoon, US LE was negative for DVT. ED Course Significant for: Creatine= 4.14 (on 12/27 was 2.36). K= 6. Glucose 258. Troponin negative. Procal= 0.66. Hemoglobin= 9.4 (around baseline). UA 3+ protein, trace blood, trace LE, 10-[address] Head/Lumbar Spine negative. Ct abdomen/pelvis with bladder wall thickening. CXR with pulmonary vascular congestion. In the ED was given Rocephin, 500mL NSS, calcium gluconate, sodium bicarb, 10 units insulin Admission Exam Per Admitting Provider Constitutional: well-appearing, no acute distress HEENT: NCAT, no conjunctival injection CV: regular rhythm, no murmur appreciated, extremities well-perfused, +1 pitting edema to left LE to mid betts Resp: CTABL, no wheezes/rales/rhonchi appreciated, no increased work of breathing GI: soft, nondistended, nontender, BS normoactive, no CVA tenderness MSK: no gross deformities appreciated. Strength 5/5 right LE, 4/5 left LE. Left sided calf tenderness Skin: warm, dry, no rash appreciated Neuro: alert, oriented to person, but to place, no focal neurologic deficit appreciated Principal Diagnosis Acute interstitial nephritis Discharge Exam Constitutional: well-appearing, no acute distress HEENT: NCAT, no conjunctival injection, right IJ TCC removed CV: regular rhythm, holosystolic murmur best heard at the left sternal border, extremities well-perfused, +1 pitting edema left LE to mid betts, trace LE edema on right Resp: CTABL, no wheezes/rales/rhonchi appreciated, no increased work of breathing GI: soft, nondistended, nontender ; Lopez catheter in place MSK: no gross deformities appreciated Skin: warm, dry, no rash appreciated, perm catheter in place, Neuro: alert, oriented, no focal neurologic deficit appreciated Discharge Data Allergies Allergy/AdvReac Type Severity Reaction Status Date / Time Cephalosporins Allergy Verified 01/06/23 09:15 ciprofloxacin [From Cipro] AdvReac Severe Unknown Verified 01/06/23 09:15 semaglutide [From Ozempic] AdvReac Severe NAUSEA/VOMI Verified 01/06/23 09:15 TING/ANOREX IA amlodipine AdvReac Intermediate SWELLING Verified 01/06/23 09:15 OF ANKLES ropinirole AdvReac Intermediate CHANGE IN Verified 01/06/23 09:15 MENTAL STATUS Consultations 12/29/22 19:00 ED Decision to Admit Stat 01/02/23 07:00 Consult Orthopedic Surgery Routine 01/02/23 13:24 Consult Nephrology Routine 01/04/23 16:18 Consult Urology Stat 01/06/23 07:40 Consult Vascular Surgery Routine 01/15/23 11:15 Consult Vascular Surgery Routine Procedures Performed Operation Date: 01/16/23 08:40 Actual Procedures p Perm Catheter Removal(Right) - Bryson Ramirez MD Ordered Studies 12/29/22 16:28 CT head/brain wo con Stat CT lumbar spine wo con Stat 12/29/22 18:12 CT stones [CT abd pelvis wo con] Stat 01/02/23 17:02 CT head/brain wo con Stat 01/03/23 US carotid doppler BI Routine 01/03/23 08:45 US Renal Bladder [US renal/blad retro comp] Routine 01/06/23 08:34 EV cvc insrt tunnel wo prt/dining room busser Routine US EV guide vascular access Routine Chest X-Ray 12/29/22 16:28 XR chest 1V portable CLINICAL HISTORY: Sepsis COMPARISON STUDY: Chest CT November 09, 2022. Chest radiograph December 01, 2022. FINDINGS: Median sternotomy wires are noted. Moderate cardiomegaly is unchanged. There is no pneumothorax. No pleural effusion. Pulmonary vascular congestion persists. The appearance of the chest is unchanged. There is no consolidation to suggest pneumonia. IMPRESSION: Cardiomegaly and pulmonary vascular congestion, similar to prior exam. ACT 112: Negative or not required by law. Electronically signed by: Colin Cannon M.D. 12/29/2022 5:[address] 12/29/22 16:28 CT OF THE HEAD WITHOUT CONTRAST CLINICAL HISTORY: left leg weakness COMPARISON STUDY: MRI of the brain May 30, 2016. Head CT November 12, 2022. TECHNIQUE: Helical axial images of the head were obtained without IV contrast. Automated exposure control was utilized for the study. A dose lowering technique was utilized adhering to the principles of ALARA. FINDINGS: No acute intracranial hemorrhage, midline shift or mass effect is present. The ventricular system is unremarkable. The basal cisterns are patent. No extra-axial collections are present. There are no findings to suggest acute dural sinus thrombosis or acute territorial infarct. No significant calvarial abnormalities are present. Visualized portions of the sinuses and mastoid air cells are clear. IMPRESSION: No acute intracranial findings. No change in appearance of the brain. ACT 112: Negative or not required by law. Electronically signed by: Colin Cannon M.D. 12/29/2022 4:[address] 12/29/22 16:28 CT lumbar spine wo con CLINICAL HISTORY: Left leg weakness. Fall. COMPARISON STUDY: Abdomen pelvis CT November 09, 2022. TECHNIQUE: Axial images of the lumbar spine were obtained without IV contrast. Sagittal and coronal reconstructions were viewed. Automated exposure control was utilized for the study. A dose lowering technique was utilized adhering to the principles of ALARA. FINDINGS: For purposes of numbering on this exam, the L5-S1 disc space is assigned to axial image 359 of 452. There are postoperative findings consistent with L4-L5 discectomy and posterior decompression and bilateral pedicle screw fusion from L2 through L5. The hardware is intact. There is no acute lumbar spine fracture. Exam is mildly compromised by artifact. Postoperative appearance is similar to CT of November 09, 2022. Central canal and neural foramen are suboptimally assessed given CT technique. Paravertebral soft tissues are unremarkable. There are no suspicious osseous lesions. IMPRESSION: 1. No acute lumbar spine fracture or subluxation. 2. Status post L4-L5 discectomy and L2-L5 posterior decompression and bilateral pedicle screw fusion. Hardware intact. 3. Multilevel facet arthrosis, disc space narrowing and osteophytosis. ACT 112: Negative or not required by law. Electronically signed by: Colin Cannon M.D. 12/29/2022 5:03 PM Abdomen/Pelvis CT 12/29/22 18:12 Exam(s): CT ABDOMEN + PELVIS Without Contrast EXAM: CT Abdomen and Pelvis Without Intravenous Contrast CLINICAL HISTORY: Reason for exam: worsening renal function, eval for obst. TECHNIQUE: Axial computed tomography images of the abdomen and pelvis without intravenous contrast. CTDI is 27.23 mGy and DLP is 1274.19 mGy-cm. Automated exposure control was utilized for the study. A dose lowering technique was utilized adhering to the principles of ALARA. COMPARISON: 11/09/22 FINDINGS: There is evidence of previous midline sternotomy. Heart size is normal. There is mild atelectasis at the lung bases. Gallbladder is not visualized and likely surgically absent. There is no biliary dilatation. Unenhanced appearance of the liver, spleen, pancreas, and adrenal glands is unremarkable. There is nonspecific perinephric stranding bilaterally without hydronephrosis or radiopaque stones. There is aortoiliac atherosclerosis without aneurysm. There is no adenopathy, free fluid, or free air. There is no bowel obstruction or inflammation. Appendix is not visualized, but there are no secondary signs of acute appendicitis. Bladder wall is thickened. There is a possible TURP defect within the prostate. There is a fat-containing right inguinal hernia. Subcutaneous induration in the right lower quadrant abdominal suggests site of medication injection. Multilevel laminectomy has been performed in the lumbar spine. There is posterior hardware fixation extending from L2-L5. Hardware appears intact. There is no acute fracture or dislocation. IMPRESSION: 1. Nonspecific perinephric stranding. No hydronephrosis or radiopaque stones. 2. Bladder wall thickening which may be on the basis of chronic outlet obstruction or cystitis. 3. Correlate with urinalysis. Electronically signed by: Neftali Franks M.D. 12/29/22 20:07 PM Hip/Pelvis X-Ray 12/30/22 18:03 SINGLE VIEW PELVIS; 2 VIEWS LEFT HIP CLINICAL HISTORY: Left hip pain. FINDINGS: An AP view of the pelvis with AP and frog-leg views of the left hip are correlated with pelvic CT dated 12/29/2022. The skeletal structures are osteopenic. There is no radiographic evidence of acute fracture involving the hips or bony pelvis. Mild arthritic change and joint space narrowing is seen in the hips, left greater than right. The sacroiliac joints are normal. Fusion hardware is seen in the lower lumbar spine. The overlying soft tissues are within normal limits. Atherosclerotic calcification is noted in the femoral arteries. IMPRESSION: No acute bony abnormality is identified. Electronically signed by: Antonio Benjamin M.D. 12/30/2022 10:[address] 01/02/23 17:[address] DOSE: 625.80 mGy.cm HISTORY: unresponsive TECHNIQUE: Multiaxial CT images of the head were performed without the use of intravenous contrast. Automated exposure control was utilized for this study. A dose lowering technique was utilized adhering to the principles of ALARA. Comparison: Head CT 12/29/2022. Findings: The paranasal sinuses and mastoid air cells are clear. The calvarium and skull base are intact. There is no mass, hematoma, midline shift, acute infarct. White matter hypodensity is nonspecific but suggestive of microvascular ischemic change. The ventricles and sulci demonstrate mild age-related involutional changes. Impression: No significant change compared to the prior study. No acute intracranial abnormality. ACT 112: Negative or not required by law. Electronically signed by: Otoniel Olivarez M.D. 01/02/2023 5:32 PM Carotid Doppler Study 01/03/23 00:00 ULTRASOUND OF THE CAROTID ARTERIES CLINICAL HISTORY: Transient ischemic attack. COMPARISON STUDY: Carotid artery ultrasound dated 05/30/2016. TECHNIQUE: Real-time, grayscale, and color Doppler sonography of the carotid arteries is performed. Images are reviewed in the transverse and longitudinal planes. FINDINGS: The carotid arteries are patent bilaterally and demonstrate antegrade flow. There is atherosclerotic plaque an irregular seen bilaterally, greatest in the carotid bulbs. Normal doppler arterial waveforms are seen throughout. Velocity measurements are listed below. Common carotid peak systolic velocity (cm/sec): RIGHT: 84 LEFT: 89 ICA proximal peak systolic velocity (cm/sec): RIGHT: 178 LEFT: 230 ICA mid peak systolic velocity (cm/sec): RIGHT: 126 LEFT: 82 ICA distal peak systolic velocity (cm/sec): RIGHT: 81 LEFT: 82 ICA/CC peak systolic ratio: RIGHT: 2.1 LEFT: 2.6 Antegrade flow was shown in the vertebral arteries. The external carotid arteries are patent. IMPRESSION: 1. There is sonographic evidence of 50-69% stenosis of both proximal internal carotid arteries by velocity criteria. 2. Antegrade flow is shown in the vertebral arteries. ACT 112: Negative or not required by law. Electronically signed by: Antonio Benjamin M.D. 01/03/2023 12:00 PM Renal Ultrasound 01/03/23 08:45 US renal/blad retro comp CLINICAL HISTORY: judi TECHNIQUE: Multiple sonographic real-time images of the kidneys and bladder were obtained. COMPARISON: Comparison is made to renal ultrasound 10/29/2022 FINDINGS: The right kidney measures 10.9 cm in length, and the left kidney measures 12.7 cm in length. The right kidney is normal in size, contour, cortical thickness, and echogenicity. No hydronephrosis is identified. No renal lesion is identified. The left kidney is normal in size, contour, cortical thickness and echogenicity. No hydronephrosis is identified. No renal lesion is identified. The bladder is partially distended. Bilateral jets are seen. IMPRESSION: Unremarkable renal ultrasound. ACT 112: Negative or not required by law. Electronically signed by: Dano West M.D. 01/03/2023 11:38 AM Diabetes Follow up Diabetes Follow-up Needed for HgbA1c >9% Hospital Course (1) Left leg weakness: (2) Acute UTI (urinary tract infection): (3) Chronic kidney disease, stage 4 (severe): (4) Acute kidney injury: (5) Hyperkalemia: (6) Hypothyroidism: (7) Hypertension: (8) Dyslipidemia: (9) Paroxysmal atrial fibrillation: (10) Anxiety: (11) Anemia of chronic disease: (12) AIN (acute interstitial nephritis): Plan Renal Failure | CKD Stage IV AIN - Creatine went from 2.3 to 4.1 in 2 days (baseline 1.8-2). Creatinine peaked at 7.19 on 01/06. - CT abdomen/pelvis without stones of nephrolithiasis or hydronephrosis - Received 3 rounds of dialysis on 01/06, 01/09, and 01/11. - Prednisone started at 40 mg. Received 10 mg on 01/16. No further prednisone needed at this time. - PermCath placed on 01/06, removed on 01/16 - Held Bumex, losartan, and statin. Bumex restarted at time of discharge. - Losartan should be held in favor of amlodipine at time of discharge. -Should have follow-up with nephrology in 1 to 2 weeks. Repeat BMP on Monday - Lopez catheter replaced on 01/11. Patient will remain on Lopez cath until he has follow-up with urology. Recommend patient follow-up with urology as soon as possible. He missed his appointment due to being in the hospital. Anemia of chronic disease Labs on 01/08/2023 showed a normal iron, iron saturation 35%, and a ferritin of 550. Hemoglobin of 9.6 on 01/11. Received SHANNEN Recommend CBC in 1 week postdischarge. UTI-Resolved - UA consistent with UTI, urine culture from 12/27 growing Klebsiella that was susceptible to ceftriaxone - Urine culture from admission: final culture with no growth - Considering recent history of multiple UTIs, bacteremia- completed course of antibiotics Hypertension Patient on losartan 25 mg once a day and metoprolol 25 mg twice a day. Continue on metoprolol, We will DC losartan at time of discharge in favor for amlodipine 10 mg. Recommend patient keep a log of his blood pressures at home and to bring them into his PCP appointment in 1 week. Heart failure with preserved ejection fraction, CAD - last echo (11/10/2022) LVEF 60-65%, moderate - continue metoprolol, statin, aspirin, held losartan in the setting of JUDI - resumed bumex on discharge Left Leg Pain, Weakness - Pain began abruptly over 1 week ago, no known inciting event but patient was alone at time of onset and has poor recollection of that time - CT Lumbar spine on admission without acute changes, hip/pelvis x-ray negative. Ortho consulted, no plan for intervention at this time. Had PT while inpatient. May consider outpatient hip injection Hyponatremia - Sec to fluid overload. Resolved at the time of discharge DM2 - Home regimen; Insulin aspart 15 units with each meal in addition to his home Lantus 30 units BID - Hemoglobin a1c= 11.5 on 09/2022, repeat on admission a1c 9.5% -Should follow-up with PCP as an outpatient Total Time Total Time Spent Total Time Spent (In Minutes): Please refer to attendings attestation Discharge Plan Discharge Items Patient Disposition: Home - Self-Care Reason For Visit: WEAKNESS Discharge Diagnosis: Acute interstitial nephritis Activity: Resume your previous activity Non-emergency contact: Primary Care Provider and Sales Special Agent Call non-emergency contact if: you have any medication questions, your pain is unusual for you and your temperature is above 101.5 Follow-up/Referrals: Tete Dixon MD [Physician] - Savage Back MD [Physician] - (Hospitalization follow-up and voiding trial) oCry Nunez DO [Primary Care Provider] - Diet: Carb Consistent or DM2 Ambulatory Orders: Basic Metabolic Panel (Routine) Timeframe: [id number] Location: Determined by Patient Ordered By: Antonio Manley Attending Provider Instructions: You were admitted to the hospital for acute interstitial nephritis. You were treated with dialysis. You should have a BMP done on 01/18/2023. Is very important that you obtain this lab. You should also keep track of your blood pressure every day at home and bring it to your PCP for follow-up appointment. A discharge summary will be sent to your primary care physician to ensure continuity of care. Please bring this discharge summary with you to your next office appointment so that your provider can review it at that time. Follow-up appointments: * Make a follow-up appointment with your PCP within the next week. It is very important that you follow up with them shortly after discharge from the hospital. * Make a follow-up appointment with your automated manufacturing instructor in the next week. Is very important follow-up with them shortly after discharge from the hospital. * Make a follow-up appointment with Dr. Back (urology) within the next 1 to 2 weeks. It is very important that you follow-up with urology due to you being with a Lopez catheter until this appointment. You missed your appointment due to hospitalization previously. * Keep all your follow-up appointments as already scheduled. If you cannot make an appointment, notify your provider. Medications: Your medication list has been reviewed and reconciled upon discharge to ensure accuracy and continuity of care. An updated list of all your medications is included with your hospital discharge paperwork. Please review this list closely, and make note of any changes. * We sent a new medication called amlodipine to your pharmacy. Please take amlodipine 10 mg once a day. * You should stop taking your losartan at this time. You should record blood pressures for the next week and bring them to your follow-up appointment with your PCP. * If you have any issues filling these prescriptions, please call [phone] and ask to leave a message for Dr. Chan. * Take your medications as instructed; do not skip a dose of your medicines. Make sure all of your doctors know every medicine you are taking (including susz-otb-irrpyjc medicines, vitamins, and supplements). Call your primary care provider before taking any new medicines (including over- the-counter medicines, vitamins, and supplements), because some of these may interact with your current medications, or may make your symptoms worse. Tell your primary care provider if you cannot afford your medications. CONTACT YOUR PRIMARY CARE PROVIDER if you experience any of the following: * Worsening of symptoms * Fever, chills, or fatigue * Difficulty following your treatment plan, or difficulty taking medications CALL 911 OR GO TO THE EMERGENCY DEPARTMENT if you experience any of the fol lowing: * Sudden, severe abdominal pain or nausea/vomiting * Severe chest pain, or chest pain that radiates (moves) to your jaw or arm * Sudden, severe shortness of breath or difficulty breathing Thank you for allowing us to participate in your care. Pending Studies at Discharge: No Stand-Alone Forms: My [facility] [place], Smoking Cessation Medications and DC Order Prescriptions: New amlodipine [Norvasc] 5 mg Tablet 10 mg PO QAM 30 Days Qty: 60 0RF Continued bumetanide 2 mg tablet 2 mg PO BID Rx Instructions: TAKES 0800 & 1400 insulin glargine [Lantus Solostar U-100 Insulin] 100 unit/mL (3 mL) insulin pen 30 unit subcut BID levothyroxine 88 mcg tablet 88 mcg PO DAILYBB Qty: 90 albuterol sulfate 90 mcg/actuation HFA aerosol inhaler 2 puffs inhalation Q6H PRN (Reason: shortness of breath or wheezing) potassium chloride 20 mEq tablet extended release 20 meq PO BID Rx Instructions: TAKE THIS MED WHEN TAKING BUMETANIDE. DO NOT TAKE THIS MED IF NOT TAKING BUMETANIDE. finasteride 5 mg tablet 5 mg PO HS gabapentin 100 mg Capsule See Rx Instructions .ROUTE .COMPLEX Rx Instructions: 100 mg orally; TAKE 100 MG QAM, THEN 300 MG QPM. pantoprazole 20 mg tablet,delayed release (DR/EC) 20 mg PO BID aspirin 81 mg Tablet,Delayed Release (Dr/Ec) 81 mg PO DAILY clonazepam 1 mg tablet 1 mg PO BID acetaminophen [Tylenol Extra Strength] 500 mg Tablet 1,000 mg PO Q6H PRN (Reason: PAIN/FEVER) diphenhydramine HCl [Benadryl] 25 mg Capsule 25 mg PO BID PRN (Reason: NEEDED ) fluticasone propion-salmeterol 500-50 mcg/dose Blister With Device 1 inh INHALATION BID metoprolol tartrate 50 mg Tablet 25 mg PO BID multivitamin with minerals Tablet 1 tab PO DAILY rosuvastatin 20 mg Tablet 20 mg PO HS PreserVision AREDS 2,148 mcg-113 mg-45 mg-17.4mg Tablet 1 tab PO DAILY tiotropium bromide 2.5 mcg/actuation Mist 2 puff INHALATION DAILY tamsulosin [Flomax] 0.4 mg Capsule 0.8 mg PO HS loratadine [Claritin] 10 mg Tablet 10 mg PO DAILY PRN (Reason: Congestion) bacitracin zinc-polymyxin B 500-10,000 unit/gram Ointment 1 applic TOPICAL Q12H PRN (Reason: Wound Care) calcium citrate-vitamin D3 [Calcium Citrate + D] 315 mg-5 mcg (200 unit) Tablet 2 tab PO DAILY Eliquis 5 mg Tablet 2.5 mg PO Q12H insulin aspart U-100 [Novolog FlexPen U-100 Insulin] 100 unit/mL (3 mL) insulin pen 15 unit subcut AC PRN (Reason: NEEDED ) Rx Instructions: TAKE PRIOR TO BREAKFAST, LUNCH, & DINNER, IF DO NOT EAT MEAL, DO NOT TAKE INSULIN. Discontinued losartan 25 mg tablet 25 mg PO QAM Discharge Orders: Discharge Order (Routine); Ordered 01/16/23 Ordered By: Antonio Green/Other Patient Handouts: Managing Type 2 Diabetes Admission Data Admit Date/Time: 12/29/22 20:26 Attending Provider: Cyndi Grimm Admit Provider: Jovana Christian Primary Care Provider: Cory Nunez Other Providers: [facility] ; Bryson Ramirez ; Alexandru Harrell ; Ricky Rosales ; Samuel Fisher ; Tyron Saavedra ; Tete Dixon Kevin C. ; Shobha De La Rosa ; Savage Back Other Interventions: Discharge Summary Assessment (RN) Last Done: 01/16/23 16:16 Supervising Physician Co-Signing Physician Notes Resident Physician Supervision Note: I independently interviewed and examined the patient and verified the aguayo history and physical, reviewed labs and image studies and agree with resident findings and care plan."
[2023-01-16] MEDS ORDERED: LANTUS PER UNIT CHARGE SQ SCH (21:00)
[2023-01-17] MEDS ORDERED: INSULIN HUMAN NPH SC SCH (09:00)
[2023-01-17] MEDS ORDERED: predniSONE 10 MG TABLET PO SCH (09:00)
== END 2023-01-16 19:40 | disposition home or self-care (01) | DRG 673 ==
LOC: ED 15:50 → SUATTDRO 20:26 → 2W 20:26 → 2N 12-30 12:48

== ENCOUNTER 2023-01-20 14:42 | Inpatient (IN) ==
--- NOTE | 2023-01-20 14:55 | Emergency Department Note ---
Impression & Plan AMS (altered mental status), Non-ST elevation [place] (NSTEMI), Acute UTI (urinary tract infection) ED Provider Note HISTORY OF PRESENT ILLNESS: Patient is an 87-year-old male presenting with altered mental status. Patient reportedly was seen normal this morning by his . She went and checked on him again this afternoon and found him to be unresponsive. She took his blood sugar and it was 34. She called 911. On EMS arrival, he was given D10 with minimal improvement in his mental status. Patient is confused and not answering any questions. ROS: as above PHYSICAL EXAM: Constitutional: Patient appears in no acute distress. HENT: Head: Normocephalic and atraumatic. Eyes: EOMI, PERRL Mouth/Throat: Mucous membranes moist. Neck: Trachea midline. Neck supple. Cardiovascular: RRR, No murmurs, rubs or gallops. Intact distal pulses. Pulmonary/Chest: No respiratory distress. Breath sounds clear and equal bilate rally. No wheezes or rales. Abdominal: Abdomen soft, no tenderness, rebound or guarding. Musculoskeletal: No edema, tenderness or deformity noted. Skin: Warm and dry. No rash, erythema, pallor or cyanosis Neurological: Alert but confused. CN II-XII grossly intact, moving all extremities spontaneously. MDM: - Vitals signs showed bradycardia and hypothermia. Patient was placed in a bear hugger - History obtained via EMS, given patient's confusion. Patient presents with altered mental status. Patient was reportedly acting normal today per his . She went to check on him this afternoon and found him to be unresponsive and diaphoretic. She took his blood sugar it was 34. She called 911. Patient was hypoglycemic on arrival and given D10. He had minimal improvement in his mental status. - Chronic conditions affecting care: CKD; Afib; CAD (s/p PCI); CHF; DM-2; HTN; HLD - Differential diagnoses include, but are not limited to: CVA; intracranial hemorrhage; ACS; pneumonia; UTI; electrolyte abnormality; hypoglycemia; beta mark overdose - Order placed for continuous cardiac monitoring. At this time, monitor showed rate of 44 bpm with normal sinus rhythm, per my interpretation. - External medical records reviewed. EMS run sheet was reviewed. Patient had a blood sugar of 34 on their arrival. He was given 250 cc of D10. - EKG reviewed by myself showed normal sinus rhythm. Rate 48 bpm. QTc 452. No acute ischemic changes. Noted to have a right bundle branch block. - Laboratory workup interpreted by myself showed normal WBC; thrombocytopenia; CKD; stable electrolytes other than hypocalcemia; elevated troponin (30.6); negative ethanol/salicylate/acetaminophen levels - CXR showed slight pulmonary edema, per my interpretation. - CT head wo contrast negative for acute intracranial pathology. - UA showed evidence of infection. - Given IV vancomycin and rocephin in ER. - Reviewed patient's previous urine cultures which have grown Klebsiella. It has been sensitive to Rocephin - VBG showed hypercarbia (pCO2 53) - Discussion was had with addiction social worker about patient's case and need for admission - Hospitalist consulted for admission - Patient admitted to [facility] service for further evaluation and management. ASSESSMENT AND PLAN: Diagnosis: Altered mental status; hypoglycemia; NSTEMI; UTI Plan: admit Past Med/Surg History Medical History [id number] kidney injury AMS (altered mental status) Anemia of chronic disease Anxiety Aortic stenosis Mild per 03/06/19 stress ECHO Asthma Uses rescue inhaler a couple times per week Atrial fibrillation Follows with Dr. Gr Bacteremia Blindness of left eye BPH (benign prostatic hyperplasia) CAD (coronary artery disease) Angioplasty ~1993, CABG x 3 2013 (GALINDO to LAD, SVG to PDA, SVG to OM) CHF (congestive heart failure) Chronic kidney disease Follows with Dr. Dixon Chronic obstructive pulmonary disease Diabetes Type 2 IDDM Foot ulcer GERD (gastroesophageal reflux disease) Herpes zoster Hiatal hernia Hyperlipidemia Hypertension Hypothyroidism Leukocytosis Macular degeneration Myocardial infarct ~1993 Peripheral neuropathy Rupture of left distal biceps tendon hx - no surgery Secondary hyperparathyroidism (of renal origin) Surgical History Fusion of spine lumbar History of appendectomy History of cardiac cath with angioplasty ~1993 ([facility]) & 2013 ([facility]) History of cataract surgery bilateral History of coronary artery bypass graft x3 vessels ([facility] 2013) with epicardial RFA of pulmonary veins and left atrial appendage ligation History of revision of total replacement of right knee joint History of tonsillectomy History of tooth extraction History of total left knee replacement History of total right knee replacement Hx of colonoscopy Previous back surgery (08/26/12) S/P cholecystectomy Family History Brother Heart disease Diabetes Sister Cancer Mother Diabetes Father Diabetes Other Hypertension Kidney disease Social History Smoking Status: Never smoker Tobacco Type: Cigarettes Second Hand Exposure: No; Do You Dip or Chew Tobacco: No; Hx Alcohol Use: No Hx Substance Use: No Preferred Language: Kazakh Communication Ability: Impaired Visual Impairment: Partially Limited College In[employer] Required: No Beliefs That Will Affect Care: None marital status: Current Living Situation: Spouse Current Living Situation Comment: lives at home with current occupational status: retired Feels Safe at Home: Yes Assistive Devices: Walker and Wheelchair Allergies Allergies Allergy/AdvReac Type Severity Reaction Status Date / Time Cephalosporins Allergy Verified 01/06/23 09:15 ciprofloxacin [From Cipro] AdvReac Severe Unknown Verified 01/06/23 09:15 semaglutide [From Ozempic] AdvReac Severe NAUSEA/VOMI Verified 01/06/23 09:15 TING/ANOREX IA amlodipine AdvReac Intermediate SWELLING Verified 01/06/23 09:15 OF ANKLES ropinirole AdvReac Intermediate CHANGE IN Verified 01/06/23 09:15 MENTAL STATUS Home Meds Home Medications Medication Instructions Recorded Confirmed albuterol sulfate 90 mcg/actuation 2 puffs inhalation Q6H PRN 01/10/19 12/29/22 aerosol inhaler shortness of breath or wheezing levothyroxine 88 mcg tablet 88 mcg PO DAILYBB #90 tabs 01/10/19 12/29/22 potassium chloride 20 mEq 20 meq PO BID 01/10/19 12/29/22 tablet,extended release finasteride 5 mg tablet 5 mg PO HS 04/23/19 12/29/22 gabapentin 100 mg capsule See Rx Instructions .Route .COMPLEX 12/16/20 12/29/22 aspirin 81 mg tablet,delayed 81 mg PO DAILY 10/11/21 12/29/22 release pantoprazole 20 mg tablet,delayed 20 mg PO BID 02/07/22 12/29/22 release insulin glargine 100 unit/mL (3 30 unit subcut BID 04/12/22 12/29/22 mL) subcutaneous pen (Lantus Solostar U-100 Insulin) acetaminophen 500 mg tablet 1,000 mg PO Q6H PRN PAIN/FEVER 05/28/22 12/29/22 (Tylenol Extra Strength) clonazepam 1 mg tablet 1 mg PO BID 05/28/22 12/29/22 diphenhydramine HCl 25 mg capsule 25 mg PO BID PRN NEEDED 05/28/22 12/29/22 (Benadryl) fluticasone 500 mcg-salmeterol 50 1 inh inhalation BID 05/28/22 12/29/22 mcg/dose blistr powdr for inhalation metoprolol tartrate 50 mg tablet 25 mg PO BID 05/28/22 12/29/22 multivitamin with minerals 1 tab PO DAILY 05/28/22 12/29/22 rosuvastatin 20 mg tablet 20 mg PO HS 05/28/22 12/29/22 tiotropium bromide 2.5 2 puff inhalation DAILY 05/28/22 12/29/22 mcg/actuation mist for inhalation vitamins A,C,A-pniv-sbopsg 2,148 1 tab PO DAILY 05/28/22 12/29/22 mcg-113 mg-45 mg-17.4 mg tablet (PreserVision AREDS) bumetanide 2 mg tablet 2 mg PO BID 12/28/22 12/29/22 apixaban 5 mg tablet (Eliquis) 2.5 mg PO Q12H 12/29/22 12/29/22 bacitracin zinc 500 unit-polymyxin 1 applic topical Q12H PRN Wound 12/29/22 12/29/22 B 10,000 unit/gram topical ointment Care calcium citrate 315 mg-vitamin D3 2 tab PO DAILY 12/29/22 12/29/22 5 mcg (200 unit) tablet (Calcium Citrate + D) insulin aspart U-100 100 unit/mL 15 unit subcut AC PRN NEEDED 12/29/22 12/29/22 (3 mL) subcutaneous pen (Novolog FlexPen U-100 Insulin aspart) loratadine 10 mg tablet (Claritin) 10 mg PO DAILY PRN Congestion 12/29/22 12/29/22 tamsulosin 0.4 mg capsule (Flomax) 0.8 mg PO HS 12/29/22 12/29/22 Previous Rx's Medication Instructions Recorded amlodipine 5 mg tablet (Norvasc) 10 mg PO QAM 30 days #60 tabs 01/16/23 Results & Data (ED) Vital Signs Vital Signs - 24 hr 01/20/23 14:48 01/20/23 15:31 01/20/23 15:35 Temperature 34.9 C L Temperature Source Rectal Pulse Rate 53 L 49 L Pulse Rate from SpO2 Sensor Pulse Rhythm Regular Pulse Strength Normal Respiratory Rate 28 H Respiratory Depth Normal Blood Pressure 99/41 L Blood Pressure Mean 60 Blood Pressure Position Sitting Pulse Oximetry 100 Oxygen Delivery Method Non-rebreather Oxygen Flow Rate Sepsis Recent Fever Within 48 Hours No Sepsis New/Unexplained Change in Mental Status Yes Sepsis Action Taken by Nursing Physician Notified 01/20/23 15:31 01/20/23 15:45 01/20/23 15:45 Temperature Temperature Source Pulse Rate 48 L 48 L Pulse Rate from SpO2 Sensor 49 L 48 L Pulse Rhythm Pulse Strength Respiratory Rate 13 22 Respiratory Depth Blood Pressure 92/49 L 99/47 L Blood Pressure Mean 63 64 Blood Pressure Position Pulse Oximetry 100 100 Oxygen Delivery Method Non-rebreather Oxygen Flow Rate 15 Sepsis Recent Fever Within 48 Hours Sepsis New/Unexplained Change in Mental Status Sepsis Action Taken by Nursing 01/20/23 16:00 01/20/23 16:01 01/20/23 16:01 Temperature Temperature Source Pulse Rate 47 L 47 L Pulse Rate from SpO2 Sensor 47 L 47 L Pulse Rhythm Pulse Strength Respiratory Rate 19 21 Respiratory Depth Blood Pressure 125/60 Blood Pressure Mean 81 Blood Pressure Position Pulse Oximetry 100 100 Oxygen Delivery Method Non-rebreather Oxygen Flow Rate Sepsis Recent Fever Within 48 Hours Sepsis New/Unexplained Change in Mental Status Sepsis Action Taken by Nursing 01/20/23 16:15 01/20/23 16:16 01/20/23 16:16 Temperature Temperature Source Pulse Rate 46 L 45 L Pulse Rate from SpO2 Sensor 46 L 46 L Pulse Rhythm Pulse Strength Respiratory Rate 15 23 Respiratory Depth Blood Pressure 122/49 L Blood Pressure Mean 73 Blood Pressure Position Pulse Oximetry 100 100 Oxygen Delivery Method Oxygen Flow Rate Sepsis Recent Fever Within 48 Hours Sepsis New/Unexplained Change in Mental Status Sepsis Action Taken by Nursing 01/20/23 16:30 01/20/23 16:31 01/20/23 16:31 Temperature Temperature Source Pulse Rate 47 L 46 L Pulse Rate from SpO2 Sensor 46 L 46 L Pulse Rhythm Pulse Strength Respiratory Rate 20 15 Respiratory Depth Blood Pressure 89/41 L Blood Pressure Mean 57 Blood Pressure Position Pulse Oximetry 99 99 Oxygen Delivery Method Oxygen Flow Rate Sepsis Recent Fever Within 48 Hours Sepsis New/Unexplained Change in Mental Status Sepsis Action Taken by Nursing 01/20/23 16:34 01/20/23 16:34 01/20/23 16:45 Temperature Temperature Source Pulse Rate 45 L 54 L Pulse Rate from SpO2 Sensor 44 L 41 L Pulse Rhythm Pulse Strength Respiratory Rate 14 14 Respiratory Depth Blood Pressure 106/44 L 114/42 L Blood Pressure Mean 64 66 Blood Pressure Position Pulse Oximetry 100 99 Oxygen Delivery Method Oxymask Oxygen Flow Rate Sepsis Recent Fever Within 48 Hours Sepsis New/Unexplained Change in Mental Status Sepsis Action Taken by Nursing 01/20/23 16:49 01/20/23 17:00 01/20/23 17:01 Temperature Temperature Source Pulse Rate 43 L 50 L Pulse Rate from SpO2 Sensor 43 L Pulse Rhythm Pulse Strength Respiratory Rate 15 17 Respiratory Depth Blood Pressure 110/49 L Blood Pressure Mean 69 Blood Pressure Position Pulse Oximetry 99 Oxygen Delivery Method Oxygen Flow Rate Sepsis Recent Fever Within 48 Hours Sepsis New/Unexplained Change in Mental Status Sepsis Action Taken by Nursing 01/20/23 17:01 01/20/23 17:15 01/20/23 17:17 Temperature Temperature Source Pulse Rate 44 L 53 L Pulse Rate from SpO2 Sensor 45 L 51 L Pulse Rhythm Pulse Strength Respiratory Rate 20 16 Respiratory Depth Blood Pressure 123/63 Blood Pressure Mean 83 Blood Pressure Position Pulse Oximetry 100 98 Oxygen Delivery Method Oxygen Flow Rate Sepsis Recent Fever Within 48 Hours Sepsis New/Unexplained Change in Mental Status Sepsis Action Taken by Nursing 01/20/23 17:17 01/20/23 17:30 01/20/23 17:30 Temperature Temperature Source Pulse Rate 44 L 43 L Pulse Rate from SpO2 Sensor 44 L Pulse Rhythm Pulse Strength Respiratory Rate 22 12 Respiratory Depth Blood Pressure 103/44 L Blood Pressure Mean 63 Blood Pressure Position Pulse Oximetry 100 Oxygen Delivery Method Oxymask Oxygen Flow Rate Sepsis Recent Fever Within 48 Hours Sepsis New/Unexplained Change in Mental Status Sepsis Action Taken by Nursing 01/20/23 17:45 01/20/23 17:45 01/20/23 18:00 Temperature Temperature Source Pulse Rate 44 L 45 L Pulse Rate from SpO2 Sensor 45 L Pulse Rhythm Pulse Strength Respiratory Rate 12 14 Respiratory Depth Blood Pressure 99/46 L Blood Pressure Mean 63 Blood Pressure Position Pulse Oximetry 97 Oxygen Delivery Method Oxymask Oxygen Flow Rate 6 Sepsis Recent Fever Within 48 Hours Sepsis New/Unexplained Change in Mental Status Sepsis Action Taken by Nursing 01/20/23 18:01 01/20/23 18:01 01/20/23 18:30 Temperature Temperature Source Pulse Rate 45 L 48 L Pulse Rate from SpO2 Sensor 45 L 46 L Pulse Rhythm Pulse Strength Respiratory Rate 12 15 Respiratory Depth Blood Pressure 114/54 L 128/57 L Blood Pressure Mean 74 80 Blood Pressure Position Pulse Oximetry 100 98 Oxygen Delivery Method Oxymask Oxygen Flow Rate 6 Sepsis Recent Fever Within 48 Hours Sepsis New/Unexplained Change in Mental Status Sepsis Action Taken by Nursing Laboratory Data 01/20/23 14:50 01/20/23 14:50 Lab Results 01/20/23 01/20/23 01/20/23 Range/Units 14:46 14:50 14:50 WBC 9.49 (4.8-10.8) K/ul RBC 3.10 L (4.70-6.10) M/uL Hgb 9.5 L (14.0-18.0) g/dl POC Hgb (14.0-18.0) g/dl Hct 29.1 L (42.0-52.0) % POC Hct (42-52) % MCV 93.9 (80.0-100.0) fL MCH 30.6 (25.0-34.0) pg MCHC 32.6 (32.0-36.0) g/dL RDW Std Deviation 54.7 H (36.4-46.3) fL RDW Coeff of Adrian 15.9 H (11.5-14.5) % Plt Count 96 L (130-400) K/uL MPV 9.6 (9.4-12.4) fL Immature Gran % (Auto) 0.8 % Neut % (Auto) 80.1 % Lymph % (Auto) 9.8 % [place] % (Auto) 8.5 % Eos % (Auto) 0.8 % Baso % (Auto) 0.0 % Neut # (Auto) 7.59 H (1.40-6.50) K/uL Lymph # (Auto) 0.93 L (1.20-3.40) K/uL [place] # (Auto) 0.81 H (0.11-0.59) K/uL Eos # (Auto) 0.08 (0.00-0.50) K/uL Baso # (Auto) 0.00 (0.00-0.20) K/uL Immature Gran # (Auto) 0.08 (0.01-0.20) K/uL Platelet Estimate Decreased L (Normal) VBG pH (7.36-7.41) VBG pCO2 (38-50) mmHg VBG pO2 mmHg VBG HCO3 mmol/L VBG O2 Saturation % VBG Base Excess mEq/L POC Sodium (135-144) mmol/L Sodium 139 (136-145) mmol/L POC Potassium (3.3-5.0) mmol/L Potassium 4.4 (3.5-5.1) mmol/L POC Chloride (101-112) mmol/L Chloride 107 (98-107) mmol/L Carbon Dioxide 28 (21-32) mmol/L POC Total CO2 (24-31) mmol/L Anion Gap 4 (3-11) POC Anion Gap (16-25) mmol/L POC BUN (7-18) mg/dl BUN 67 H (6-23) mg/dl Creatinine 2.08 H (0.6-1.4) mg/dl POC Creatinine (0.6-1.3) mg/dl Est Cr Clr Drug Dosing 27.9 ml/min Est GFR ( Amer) 32.2 ml/min Est GFR (Non-Af Amer) 27.8 ml/min BUN/Creatinine Ratio 32.2 H (10-20) Glucose 106 H (70-99(Fasting)) mg/dl POC Glucose 287 H (70-99) mg/dl POC Glucose (other) (70-99) mg/dl Lactate (0.4-2.0) mmol/L Calcium 7.7 L (8.6-10.3) mg/dl POC Ioniz Calcium Rafael (1.12-1.32) mmol/l Magnesium 1.9 (1.7-2.4) mg/dl Total Bilirubin 0.4 (0.2-1.0) mg/dl AST 15 (13-39) U/L ALT 13 (7-52) U/L Alkaline Phosphatase 67 (34-104) U/L Ammonia (18-72) umol/L Troponin I High Sens 30.6 H (0-20) pg/ml Total Protein 4.8 L (6.0-8.3) gm/dl Albumin 2.2 L (3.4-5.0) gm/dl Globulin 2.6 (2.5-4.0) gm/dl Albumin/Globulin Ratio 0.8 L (0.9-2) Procalcitonin (0-0.5) ng/ml Urine Color Urine Appearance (Clear) Urine pH (4.5-7.5) Ur Specific Brooks (1.000-1.030) Urine Protein (Negative) Urine Glucose (UA) (Negative) Urine Ketones (Negative) Urine Blood (Negative) Urine Nitrite (Negative) Urine Bilirubin (Negative) Urine Urobilinogen (Negative) Ur Leukocyte Esterase (Negative) Urine WBC (Auto) (0-5) /hpf Urine RBC (Auto) (0-4) /hpf U Hyaline Cast (Auto) (0-5) /lpf U Epithel Cells (Auto) (0-5) /lpf Urine Bacteria (Auto) (Negative) Urine Yeast (None Prsent) Salicylates (3.0-30) mg/dl Acetaminophen (10-30) ug/ml Ethyl Alcohol mg/dL (<10.0) mg/dl Adenovirus (PCR) (NotDetected) B. pertussis DNA (PCR) (NotDetected) B.parapertussis DNA PCR (NotDetected) C. pneumoniae DNA (PCR) (NotDetected) Coronavirus OC43 (PCR) (NotDetected) Coronavirus HKU1 (PCR) (NotDetected) Coronavirus 229E (PCR) (NotDetected) SARS-CoV-2 (PCR) (NotDetected) Coronavirus NL63 (PCR) (NotDetected) Human Metapneumovir PCR (NotDetected) Influenza Type A (PCR) (NotDetected) Influenza Type B (PCR) (NotDetected) M. pneumoniae (PCR) (NotDetected) Parainfluenza 1 (PCR) (NotDetected) Parainfluenza 2 (PCR) (NotDetected) Parainfluenza 3 (PCR) (NotDetected) Parainfluenza 4 (PCR) (NotDetected) RSV (PCR) (NotDetected) Entero/Rhino (PCR) (NotDetected) 01/20/23 01/20/23 01/20/23 Range/Units 14:50 14:50 14:50 WBC (4.8-10.8) K/ul RBC (4.70-6.10) M/uL Hgb (14.0-18.0) g/dl POC Hgb (14.0-18.0) g/dl Hct (42.0-52.0) % POC Hct (42-52) % MCV (80.0-100.0) fL MCH (25.0-34.0) pg MCHC (32.0-36.0) g/dL RDW Std Deviation (36.4-46.3) fL RDW Coeff of Adrian (11.5-14.5) % Plt Count (130-400) K/uL MPV (9.4-12.4) fL Immature Gran % (Auto) % Neut % (Auto) % Lymph % (Auto) % [place] % (Auto) % Eos % (Auto) % Baso % (Auto) % Neut # (Auto) (1.40-6.50) K/uL Lymph # (Auto) (1.20-3.40) K/uL [place] # (Auto) (0.11-0.59) K/uL Eos # (Auto) (0.00-0.50) K/uL Baso # (Auto) (0.00-0.20) K/uL Immature Gran # (Auto) (0.01-0.20) K/uL Platelet Estimate (Normal) VBG pH (7.36-7.41) VBG pCO2 (38-50) mmHg VBG pO2 mmHg VBG HCO3 mmol/L VBG O2 Saturation % VBG Base Excess mEq/L POC Sodium (135-144) mmol/L Sodium (136-145) mmol/L POC Potassium (3.3-5.0) mmol/L Potassium (3.5-5.1) mmol/L POC Chloride (101-112) mmol/L Chloride (98-107) mmol/L Carbon Dioxide (21-32) mmol/L POC Total CO2 (24-31) mmol/L Anion Gap (3-11) POC Anion Gap (16-25) mmol/L POC BUN (7-18) mg/dl BUN (6-23) mg/dl Creatinine (0.6-1.4) mg/dl POC Creatinine (0.6-1.3) mg/dl Est Cr Clr Drug Dosing ml/min Est GFR ( Amer) ml/min Est GFR (Non-Af Amer) ml/min BUN/Creatinine Ratio (10-20) Glucose (70-99(Fasting)) mg/dl POC Glucose (70-99) mg/dl POC Glucose (other) (70-99) mg/dl Lactate (0.4-2.0) mmol/L Calcium (8.6-10.3) mg/dl POC Ioniz Calcium Rafael (1.12-1.32) mmol/l Magnesium (1.7-2.4) mg/dl Total Bilirubin (0.2-1.0) mg/dl AST (13-39) U/L ALT (7-52) U/L Alkaline Phosphatase (34-104) U/L Ammonia 17.0 L (18-72) umol/L Troponin I High Sens (0-20) pg/ml Total Protein (6.0-8.3) gm/dl Albumin (3.4-5.0) gm/dl Globulin (2.5-4.0) gm/dl Albumin/Globulin Ratio (0.9-2) Procalcitonin 0.27 (0-0.5) ng/ml Urine Color Urine Appearance (Clear) Urine pH (4.5-7.5) Ur Specific Brooks (1.000-1.030) Urine Protein (Negative) Urine Glucose (UA) (Negative) Urine Ketones (Negative) Urine Blood (Negative) Urine Nitrite (Negative) Urine Bilirubin (Negative) Urine Urobilinogen (Negative) Ur Leukocyte Esterase (Negative) Urine WBC (Auto) (0-5) /hpf Urine RBC (Auto) (0-4) /hpf U Hyaline Cast (Auto) (0-5) /lpf U Epithel Cells (Auto) (0-5) /lpf Urine Bacteria (Auto) (Negative) Urine Yeast (None Prsent) Salicylates < 3.0 L (3.0-30) mg/dl Acetaminophen < 3 L (10-30) ug/ml Ethyl Alcohol mg/dL (<10.0) mg/dl Adenovirus (PCR) (NotDetected) B. pertussis DNA (PCR) (NotDetected) B.parapertussis DNA PCR (NotDetected) C. pneumoniae DNA (PCR) (NotDetected) Coronavirus OC43 (PCR) (NotDetected) Coronavirus HKU1 (PCR) (NotDetected) Coronavirus 229E (PCR) (NotDetected) SARS-CoV-2 (PCR) (NotDetected) Coronavirus NL63 (PCR) (NotDetected) Human Metapneumovir PCR (NotDetected) Influenza Type A (PCR) (NotDetected) Influenza Type B (PCR) (NotDetected) M. pneumoniae (PCR) (NotDetected) Parainfluenza 1 (PCR) (NotDetected) Parainfluenza 2 (PCR) (NotDetected) Parainfluenza 3 (PCR) (NotDetected) Parainfluenza 4 (PCR) (NotDetected) RSV (PCR) (NotDetected) Entero/Rhino (PCR) (NotDetected) 01/20/23 01/20/23 01/20/23 Range/Units 14:50 14:56 15:25 WBC (4.8-10.8) K/ul RBC (4.70-6.10) M/uL Hgb (14.0-18.0) g/dl POC Hgb 9.2 L (14.0-18.0) g/dl Hct (42.0-52.0) % POC Hct 27 L (42-52) % MCV (80.0-100.0) fL MCH (25.0-34.0) pg MCHC (32.0-36.0) g/dL RDW Std Deviation (36.4-46.3) fL RDW Coeff of Adrian (11.5-14.5) % Plt Count (130-400) K/uL MPV (9.4-12.4) fL Immature Gran % (Auto) % Neut % (Auto) % Lymph % (Auto) % [place] % (Auto) % Eos % (Auto) % Baso % (Auto) % Neut # (Auto) (1.40-6.50) K/uL Lymph # (Auto) (1.20-3.40) K/uL [place] # (Auto) (0.11-0.59) K/uL Eos # (Auto) (0.00-0.50) K/uL Baso # (Auto) (0.00-0.20) K/uL Immature Gran # (Auto) (0.01-0.20) K/uL Platelet Estimate (Normal) VBG pH (7.36-7.41) VBG pCO2 (38-50) mmHg VBG pO2 mmHg VBG HCO3 mmol/L VBG O2 Saturation % VBG Base Excess mEq/L POC Sodium 138 (135-144) mmol/L Sodium (136-145) mmol/L POC Potassium 4.4 (3.3-5.0) mmol/L Potassium (3.5-5.1) mmol/L POC Chloride 104 (101-112) mmol/L Chloride (98-107) mmol/L Carbon Dioxide (21-32) mmol/L POC Total CO2 24 (24-31) mmol/L Anion Gap (3-11) POC Anion Gap 15.0 L (16-25) mmol/L POC BUN 63 H (7-18) mg/dl BUN (6-23) mg/dl Creatinine (0.6-1.4) mg/dl POC Creatinine 2.3 H (0.6-1.3) mg/dl Est Cr Clr Drug Dosing ml/min Est GFR ( Amer) ml/min Est GFR (Non-Af Amer) ml/min BUN/Creatinine Ratio (10-20) Glucose (70-99(Fasting)) mg/dl POC Glucose (70-99) mg/dl POC Glucose (other) 105 H (70-99) mg/dl Lactate 1.1 (0.4-2.0) mmol/L Calcium (8.6-10.3) mg/dl POC Ioniz Calcium Rafael 1.15 (1.12-1.32) mmol/l Magnesium (1.7-2.4) mg/dl Total Bilirubin (0.2-1.0) mg/dl AST (13-39) U/L ALT (7-52) U/L Alkaline Phosphatase (34-104) U/L Ammonia (18-72) umol/L Troponin I High Sens (0-20) pg/ml Total Protein (6.0-8.3) gm/dl Albumin (3.4-5.0) gm/dl Globulin (2.5-4.0) gm/dl Albumin/Globulin Ratio (0.9-2) Procalcitonin (0-0.5) ng/ml Urine Color Urine Appearance (Clear) Urine pH (4.5-7.5) Ur Specific Brooks (1.000-1.030) Urine Protein (Negative) Urine Glucose (UA) (Negative) Urine Ketones (Negative) Urine Blood (Negative) Urine Nitrite (Negative) Urine Bilirubin (Negative) Urine Urobilinogen (Negative) Ur Leukocyte Esterase (Negative) Urine WBC (Auto) (0-5) /hpf Urine RBC (Auto) (0-4) /hpf U Hyaline Cast (Auto) (0-5) /lpf U Epithel Cells (Auto) (0-5) /lpf Urine Bacteria (Auto) (Negative) Urine Yeast (None Prsent) Salicylates (3.0-30) mg/dl Acetaminophen (10-30) ug/ml Ethyl Alcohol mg/dL < 10.0 (<10.0) mg/dl Adenovirus (PCR) (NotDetected) B. pertussis DNA (PCR) (NotDetected) B.parapertussis DNA PCR (NotDetected) C. pneumoniae DNA (PCR) (NotDetected) Coronavirus OC43 (PCR) (NotDetected) Coronavirus HKU1 (PCR) (NotDetected) Coronavirus 229E (PCR) (NotDetected) SARS-CoV-2 (PCR) (NotDetected) Coronavirus NL63 (PCR) (NotDetected) Human Metapneumovir PCR (NotDetected) Influenza Type A (PCR) (NotDetected) Influenza Type B (PCR) (NotDetected) M. pneumoniae (PCR) (NotDetected) Parainfluenza 1 (PCR) (NotDetected) Parainfluenza 2 (PCR) (NotDetected) Parainfluenza 3 (PCR) (NotDetected) Parainfluenza 4 (PCR) (NotDetected) RSV (PCR) (NotDetected) Entero/Rhino (PCR) (NotDetected) 08/25/23 08/25/23 08/25/23 Range/Units 16:26 16:44 16:48 WBC (4.8-10.8) K/ul RBC (4.70-6.10) M/uL Hgb (14.0-18.0) g/dl POC Hgb (14.0-18.0) g/dl Hct (42.0-52.0) % POC Hct (42-52) % MCV (80.0-100.0) fL MCH (25.0-34.0) pg MCHC (32.0-36.0) g/dL RDW Std Deviation (36.4-46.3) fL RDW Coeff of Adrian (11.5-14.5) % Plt Count (130-400) K/uL MPV (9.4-12.4) fL Immature Gran % (Auto) % Neut % (Auto) % Lymph % (Auto) % [place] % (Auto) % Eos % (Auto) % Baso % (Auto) % Neut # (Auto) (1.40-6.50) K/uL Lymph # (Auto) (1.20-3.40) K/uL [place] # (Auto) (0.11-0.59) K/uL Eos # (Auto) (0.00-0.50) K/uL Baso # (Auto) (0.00-0.20) K/uL Immature Gran # (Auto) (0.01-0.20) K/uL Platelet Estimate (Normal) VBG pH (7.36-7.41) VBG pCO2 (38-50) mmHg VBG pO2 mmHg VBG HCO3 mmol/L VBG O2 Saturation % VBG Base Excess mEq/L POC Sodium (135-144) mmol/L Sodium (136-145) mmol/L POC Potassium (3.3-5.0) mmol/L Potassium (3.5-5.1) mmol/L POC Chloride (101-112) mmol/L Chloride (98-107) mmol/L Carbon Dioxide (21-32) mmol/L POC Total CO2 (24-31) mmol/L Anion Gap (3-11) POC Anion Gap (16-25) mmol/L POC BUN (7-18) mg/dl BUN (6-23) mg/dl Creatinine (0.6-1.4) mg/dl POC Creatinine (0.6-1.3) mg/dl Est Cr Clr Drug Dosing ml/min Est GFR ( Amer) ml/min Est GFR (Non-Af Amer) ml/min BUN/Creatinine Ratio (10-20) Glucose (70-99(Fasting)) mg/dl POC Glucose 53 L* 164 H (70-99) mg/dl POC Glucose (other) (70-99) mg/dl Lactate (0.4-2.0) mmol/L Calcium (8.6-10.3) mg/dl POC Ioniz Calcium Rafael (1.12-1.32) mmol/l Magnesium (1.7-2.4) mg/dl Total Bilirubin (0.2-1.0) mg/dl AST (13-39) U/L ALT (7-52) U/L Alkaline Phosphatase (34-104) U/L Ammonia (18-72) umol/L Troponin I High Sens (0-20) pg/ml Total Protein (6.0-8.3) gm/dl Albumin (3.4-5.0) gm/dl Globulin (2.5-4.0) gm/dl Albumin/Globulin Ratio (0.9-2) Procalcitonin (0-0.5) ng/ml Urine Color Yellow Urine Appearance Cloudy A (Clear) Urine pH 5.0 (4.5-7.5) Ur Specific Brooks 1.012 (1.000-1.030) Urine Protein 3+ H (Negative) Urine Glucose (UA) Negative (Negative) Urine Ketones Negative (Negative) Urine Blood 1+ H (Negative) Urine Nitrite Negative (Negative) Urine Bilirubin Negative (Negative) Urine Urobilinogen Negative (Negative) Ur Leukocyte Esterase 2+ H (Negative) Urine WBC (Auto) >30 H (0-5) /hpf Urine RBC (Auto) 0-4 (0-4) /hpf U Hyaline Cast (Auto) 5-10 H (0-5) /lpf U Epithel Cells (Auto) 5-10 H (0-5) /lpf Urine Bacteria (Auto) Negative (Negative) Urine Yeast Budding w/ Hyphae A (None Prsent) Salicylates (3.0-30) mg/dl Acetaminophen (10-30) ug/ml Ethyl Alcohol mg/dL (<10.0) mg/dl Adenovirus (PCR) (NotDetected) B. pertussis DNA (PCR) (NotDetected) B.parapertussis DNA PCR (NotDetected) C. pneumoniae DNA (PCR) (NotDetected) Coronavirus OC43 (PCR) (NotDetected) Coronavirus HKU1 (PCR) (NotDetected) Coronavirus 229E (PCR) (NotDetected) SARS-CoV-2 (PCR) (NotDetected) Coronavirus NL63 (PCR) (NotDetected) Human Metapneumovir PCR (NotDetected) Influenza Type A (PCR) (NotDetected) Influenza Type B (PCR) (NotDetected) M. pneumoniae (PCR) (NotDetected) Parainfluenza 1 (PCR) (NotDetected) Parainfluenza 2 (PCR) (NotDetected) Parainfluenza 3 (PCR) (NotDetected) Parainfluenza 4 (PCR) (NotDetected) RSV (PCR) (NotDetected) Entero/Rhino (PCR) (NotDetected) 01/20/23 01/20/23 01/20/23 Range/Units 17:28 17:42 18:24 WBC (4.8-10.8) K/ul RBC (4.70-6.10) M/uL Hgb (14.0-18.0) g/dl POC Hgb (14.0-18.0) g/dl Hct (42.0-52.0) % POC Hct (42-52) % MCV (80.0-100.0) fL MCH (25.0-34.0) pg MCHC (32.0-36.0) g/dL RDW Std Deviation (36.4-46.3) fL RDW Coeff of Adrian (11.5-14.5) % Plt Count (130-400) K/uL MPV (9.4-12.4) fL Immature Gran % (Auto) % Neut % (Auto) % Lymph % (Auto) % [place] % (Auto) % Eos % (Auto) % Baso % (Auto) % Neut # (Auto) (1.40-6.50) K/uL Lymph # (Auto) (1.20-3.40) K/uL [place] # (Auto) (0.11-0.59) K/uL Eos # (Auto) (0.00-0.50) K/uL Baso # (Auto) (0.00-0.20) K/uL Immature Gran # (Auto) (0.01-0.20) K/uL Platelet Estimate (Normal) VBG pH 7.31 L (7.36-7.41) VBG pCO2 53 H (38-50) mmHg VBG pO2 55 mmHg VBG HCO3 27 mmol/L VBG O2 Saturation 82.4 % VBG Base Excess -0.4 mEq/L POC Sodium (135-144) mmol/L Sodium (136-145) mmol/L POC Potassium (3.3-5.0) mmol/L Potassium (3.5-5.1) mmol/L POC Chloride (101-112) mmol/L Chloride (98-107) mmol/L Carbon Dioxide (21-32) mmol/L POC Total CO2 (24-31) mmol/L Anion Gap (3-11) POC Anion Gap (16-25) mmol/L POC BUN (7-18) mg/dl BUN (6-23) mg/dl Creatinine (0.6-1.4) mg/dl POC Creatinine (0.6-1.3) mg/dl Est Cr Clr Drug Dosing ml/min Est GFR ( Amer) ml/min Est GFR (Non-Af Amer) ml/min BUN/Creatinine Ratio (10-20) Glucose (70-99(Fasting)) mg/dl POC Glucose 142 H (70-99) mg/dl POC Glucose (other) (70-99) mg/dl Lactate (0.4-2.0) mmol/L Calcium (8.6-10.3) mg/dl POC Ioniz Calcium Rafael (1.12-1.32) mmol/l Magnesium (1.7-2.4) mg/dl Total Bilirubin (0.2-1.0) mg/dl AST (13-39) U/L ALT (7-52) U/L Alkaline Phosphatase (34-104) U/L Ammonia (18-72) umol/L Troponin I High Sens (0-20) pg/ml Total Protein (6.0-8.3) gm/dl Albumin (3.4-5.0) gm/dl Globulin (2.5-4.0) gm/dl Albumin/Globulin Ratio (0.9-2) Procalcitonin (0-0.5) ng/ml Urine Color Urine Appearance (Clear) Urine pH (4.5-7.5) Ur Specific Brooks (1.000-1.030) Urine Protein (Negative) Urine Glucose (UA) (Negative) Urine Ketones (Negative) Urine Blood (Negative) Urine Nitrite (Negative) Urine Bilirubin (Negative) Urine Urobilinogen (Negative) Ur Leukocyte Esterase (Negative) Urine WBC (Auto) (0-5) /hpf Urine RBC (Auto) (0-4) /hpf U Hyaline Cast (Auto) (0-5) /lpf U Epithel Cells (Auto) (0-5) /lpf Urine Bacteria (Auto) (Negative) Urine Yeast (None Prsent) Salicylates (3.0-30) mg/dl Acetaminophen (10-30) ug/ml Ethyl Alcohol mg/dL (<10.0) mg/dl Adenovirus (PCR) Not Detected (NotDetected) B. pertussis DNA (PCR) Not Detected (NotDetected) B.parapertussis DNA PCR Not Detected (NotDetected) C. pneumoniae DNA (PCR) Not Detected (NotDetected) Coronavirus OC43 (PCR) Not Detected (NotDetected) Coronavirus HKU1 (PCR) Not Detected (NotDetected) Coronavirus 229E (PCR) Not Detected (NotDetected) SARS-CoV-2 (PCR) Not Detected (NotDetected) Coronavirus NL63 (PCR) Not Detected (NotDetected) Human Metapneumovir PCR Not Detected (NotDetected) Influenza Type A (PCR) Not Detected (NotDetected) Influenza Type B (PCR) Not Detected (NotDetected) M. pneumoniae (PCR) Not Detected (NotDetected) Parainfluenza 1 (PCR) Not Detected (NotDetected) Parainfluenza 2 (PCR) Not Detected (NotDetected) Parainfluenza 3 (PCR) Not Detected (NotDetected) Parainfluenza 4 (PCR) Not Detected (NotDetected) RSV (PCR) Not Detected (NotDetected) Entero/Rhino (PCR) Not Detected (NotDetected) Administered Medications Vancomycin HCl 2,000 mg/ (Sodium Chloride) 540 mls @ 200 mls/hr IV NOW ONE Stop: 01/20/23 20:37 Last Admin: 01/20/23 18:47 Dose: 200 mls/hr Documented By: RSL Discontinued Medications Dextrose (Dextrose 50% 50 Ml Syringe) Confirm Administered Dose 50 ml IV .STK- MED ONE Stop: 01/20/23 16:29 Last Admin: 01/20/23 16:36 Dose: Not Given Documented By: RSBarrett Dextrose (Dextrose 50% 50 Ml Syringe) 50 ml IV NOW STA Stop: 01/20/23 16:36 Last Admin: 01/20/23 16:37 Dose: 50 ml Documented By: RSBarrett Sodium Chloride (Nss 1000ml) 1,000 mls @ 999 mls/hr IV .Q1H1M ONE Stop: 01/20/23 16:02 Last Infusion: 01/20/23 15:57 Dose: 0 mls/hr Documented By: Admin: 01/20/23 15:02 Dose: 999 mls/hr Documented By: DIAMOND Calcium Gluconate () 1,000 mg in 60 mls @ 240 mls/hr IV NOW STA Stop: 01/20/23 16:17 Last Admin: 01/20/23 16:38 Dose: Not Given Documented By: RSL Ceftriaxone Sodium 1,000 mg/ (Dextrose) 50 mls @ 100 mls/hr IV NOW STA Stop: 01/20/23 18:25 Last Admin: 01/20/23 18:30 Dose: 100 mls/hr Documented By: RSL Imaging Data Radiologist's Impression: Chest X-Ray 01/20/23 14:50 XR chest 1V portable HISTORY: 87 years-old Male ALTERED MENTAL STATUs acutely altered mental status COMPARISON: 12/29/2022 TECHNIQUE: AP view of the chest FINDINGS: Cardiac silhouette is enlarged. Prior median sternotomy with a few fractured sternotomy wires again noted. Suggested pulmonary arterial hypertension. Interstitial coarsening with trace pleural effusions and mild bibasilar densities. Atherosclerosis of the aorta. Bones appear grossly intact. IMPRESSION: Cardiomegaly with suggestion of mild pulmonary edema and small pleural effusions. ACT 112: Negative or not required by law. The above report was generated using voice recognition software. It may contain grammatical, syntax or spelling errors. Electronically signed by: Pj Fernández M.D. 01/20/2023 3:[address] 01/20/23 14:50 CT head/brain wo con CLINICAL HISTORY: 87 years-old Male with ALTERED MENTAL STATUS. Acutely altered mental status TECHNIQUE: Multiple axial CT images of the head were obtained without contrast. A dose lowering technique was utilized adhering to the principles of ALARA. CT DOSE: 1094.10 mGy.cm COMPARISON: 01/02/2023 FINDINGS: Motion degraded exam. No acute intracranial hemorrhage, midline shift, intracranial mass, hydrocephalus, territorial ischemia or abnormal extra-axial collection. Involutional changes with chronic microvascular ischemic disease. Cerebrovascular calcifications. The calvarium is intact. Prior bilateral repair. The paranasal sinuses, mastoid air cells, and middle ear cavities are clear. IMPRESSION: No acute intracranial abnormality identified. ACT 112: Negative or not required by law. The above report was generated using voice recognition software. It may contain grammatical, syntax or spelling errors. Electronically signed by: Pj Fernández M.D. 01/20/2023 3:43 PM Discharge Plan Visit Data Chief Complaint: Hypoglycemia Stated Complaint: HYPOGLYCEMIA, SEPTIC ED Provider: Ivelisse Hines Discharge Problem: AMS (altered mental status), Non-ST elevation [place] (NSTEMI), Acute UTI (urinary tract infection) Forms Stand Alone Forms: [facility] [employer] Prescriptions Prescriptions: No Action bumetanide 2 mg tablet 2 mg PO BID Rx Instructions: TAKES 0800 & 1400 insulin glargine [Lantus Solostar U-100 Insulin] 100 unit/mL (3 mL) insulin pen 30 unit subcut BID levothyroxine 88 mcg tablet 88 mcg PO DAILYBB Qty: 90 albuterol sulfate 90 mcg/actuation HFA aerosol inhaler 2 puffs inhalation Q6H PRN (Reason: shortness of breath or wheezing) potassium chloride 20 mEq tablet extended release 20 meq PO BID Rx Instructions: TAKE THIS MED WHEN TAKING BUMETANIDE. DO NOT TAKE THIS MED IF NOT TAKING BUMETANIDE. finasteride 5 mg tablet 5 mg PO HS gabapentin 100 mg Capsule See Rx Instructions .ROUTE .COMPLEX Rx Instructions: 100 mg orally; TAKE 100 MG QAM, THEN 300 MG QPM. pantoprazole 20 mg tablet,delayed release (DR/EC) 20 mg PO BID aspirin 81 mg Tablet,Delayed Release (Dr/Ec) 81 mg PO DAILY clonazepam 1 mg tablet 1 mg PO BID acetaminophen [Tylenol Extra Strength] 500 mg Tablet 1,000 mg PO Q6H PRN (Reason: PAIN/FEVER) diphenhydramine HCl [Benadryl] 25 mg Capsule 25 mg PO BID PRN (Reason: NEEDED ) fluticasone propion-salmeterol 500-50 mcg/dose Blister With Device 1 inh INHALATION BID metoprolol tartrate 50 mg Tablet 25 mg PO BID multivitamin with minerals Tablet 1 tab PO DAILY rosuvastatin 20 mg Tablet 20 mg PO HS PreserVision AREDS 2,148 mcg-113 mg-45 mg-17.4mg Tablet 1 tab PO DAILY tiotropium bromide 2.5 mcg/actuation Mist 2 puff INHALATION DAILY tamsulosin [Flomax] 0.4 mg Capsule 0.8 mg PO HS loratadine [Claritin] 10 mg Tablet 10 mg PO DAILY PRN (Reason: Congestion) bacitracin zinc-polymyxin B 500-10,000 unit/gram Ointment 1 applic TOPICAL Q12H PRN (Reason: Wound Care) calcium citrate-vitamin D3 [Calcium Citrate + D] 315 mg-5 mcg (200 unit) Tablet 2 tab PO DAILY Eliquis 5 mg Tablet 2.5 mg PO Q12H insulin aspart U-100 [Novolog FlexPen U-100 Insulin] 100 unit/mL (3 mL) insulin pen 15 unit subcut AC PRN (Reason: NEEDED ) Rx Instructions: TAKE PRIOR TO BREAKFAST, LUNCH, & DINNER, IF DO NOT EAT MEAL, DO NOT TAKE INSULIN. amlodipine [Norvasc] 5 mg Tablet 10 mg PO QAM 30 Days Qty: 60 0RF Referrals Referrals: Cory Nunez DO [Primary Care Provider] -
[2023-01-20] MEDS ORDERED: SODIUM CHLORIDE 0.9% 1,000 ML IV ONE (15:02)
[2023-01-20 15:09] LABS: iSTAT Creatinine 2.3 mg/dl (0.6-1.3); iSTAT Hemoglobin 9.2 g/dl (14.0-18.0); iSTAT Ionized Calcium 1.15 mmol/l (1.12-1.32); iSTAT Potassium 4.4 mmol/L (3.3-5.0)
--- NOTE | 2023-01-20 15:35 | XRay Report ---
XR chest 1V portable HISTORY: 87 years-old Male ALTERED MENTAL STATUs acutely altered mental status COMPARISON: 12/29/2022 TECHNIQUE: AP view of the chest FINDINGS: Cardiac silhouette is enlarged. Prior median sternotomy with a few fractured sternotomy wires again n oted. Suggested pulmonary arterial hypertension. Interstitial coarsening with trace pleural effusions and mild bibasilar densities. Atherosclerosis of the aorta. Bones appear grossly intact. IMPRESSION: Cardiomegaly with suggestion of mild pulmonary edema and small pleural effusions. ACT 112: Negative or not required by law. The above report was generated using voice recognition software. It may contain grammatical, syntax o r spelling errors. Electronically signed by: Pj Fernández M.D. 01/20/2023 3:34 PM
[2023-01-20 15:41] LABS: Acetaminophen < 3 ug/ml (10-30); Salicylate < 3.0 mg/dl (3.0-30)
--- NOTE | 2023-01-20 15:45 | CT Scan Report ---
CT head/brain wo con CLINICAL HISTORY: 87 years-old Male with ALTERED MENTAL STATUS. Acutely altered mental status TECHNIQUE: Multiple axial CT images of the head were obtained without contrast. A dose lowering tech nique was utilized adhering to the principles of ALARA. CT DOSE: 1094.10 mGy.cm COMPARISON: 01/02/2023 FINDINGS: Motion degraded exam. No acute intracranial hemorrhage, midline shift, intracranial mass, hydrocephal us, territorial ischemia or abnormal extra-axial collection. Involutional changes with chronic microv ascular ischemic disease. Cerebrovascular calcifications. The calvarium is intact. Prior bilateral repair. The paranasal sinuses, mastoid air cells, and middle ear cavities are clear. IMPRESSION: No acute intracranial abnormality identified. ACT 112: Negative or not required by law. The above report was generated using voice recognition software. It may contain grammatical, syntax o r spelling errors. Electronically signed by: Pj Fernández M.D. 01/20/2023 3:43 PM
[2023-01-20 15:46] LABS: Est GFR (African American) 32.2 ml/min; Est GFR (Non-African American) 27.8 ml/min; Potassium 4.4 mmol/L (3.5-5.1)
[2023-01-20 15:47] LABS: Albumin Globulin Ratio 0.8 (0.9-2); Albumin Level 2.2 gm/dl (3.4-5.0); BUN Creatinine Ratio 32.2 (10-20); Bilirubin,Total 0.4 mg/dl (0.2-1.0); Calcium 7.7 mg/dl (8.6-10.3); Creatinine Clr Calc Pharmacy 27.9 ml/min; Globulin 2.6 gm/dl (2.5-4.0); Magnesium 1.9 mg/dl (1.7-2.4); Total Protein 4.8 gm/dl (6.0-8.3)
[2023-01-20 15:53] LABS: Eosinophils # (auto) 0.08 K/uL (0.00-0.50); Eosinophils % (auto) 0.8 %; Hematocrit (blood only) 29.1 % (42.0-52.0); Hemoglobin 9.5 g/dl (14.0-18.0); Immature Granulocytes # (auto) 0.08 K/uL (0.01-0.20); Immature Granulocytes % (auto) 0.8 %; Lymphocytes # (auto) 0.93 K/uL (1.20-3.40); Lymphocytes % (auto) 9.8 %; Mean Corpuscular Hemoglobin 30.6 pg (25.0-34.0); Mean Corpuscular Hgb Conc 32.6 g/dL (32.0-36.0); Mean Corpuscular Volume 93.9 fL (80.0-100.0); Mean Platelet Volume 9.6 fL (9.4-12.4); Monocytes # (auto) 0.81 K/uL (0.11-0.59); Monocytes % (auto) 8.5 %; Neutrophils # (auto) 7.59 K/uL (1.40-6.50); Neutrophils % (auto) 80.1 %; Platelet Count 96 K/uL (130-400); Platelet Estimate Decreased (Normal); RDW Coefficient of Variation 15.9 % (11.5-14.5); RDW Standard Deviation 54.7 fL (36.4-46.3); Troponin I High Sensitivity 30.6 pg/ml (0-20); White Blood Count 9.49 K/ul (4.8-10.8)
[2023-01-20] MEDS ORDERED: CALCIUM GLUCONATE 1,000 MG/60 ML BAG IV STA (16:03)
[2023-01-20] MEDS ORDERED: DEXTROSE 50% 50 ML SYRINGE IV ONE (16:28)
[2023-01-20] MEDS ORDERED: DEXTROSE 50% 50 ML SYRINGE IV STA (16:35)
--- NOTE | 2023-01-20 16:57 | Electrocardiogram Report ---
Test Reason : Blood Pressure : / mmHG Vent. Rate : 048 BPM Atrial Rate : 048 BPM P-R Int : 220 ms QRS Dur : 160 ms QT Int : 506 ms P-R-T Axes : 034 -37 021 degrees QTc Int : 452 ms Sinus bradycardia with 1st degree A-V block Left axis deviation Right bundle branch block Consider primary T abnormality in precordial leads Abnormal ECG When compared with ECG of 07-JAN-2023 11:59, Vent. rate has decreased BY 24 BPM T wave inversion no longer evident in Anterior leads QT has shortened Confirmed by Vito Simons ([id number]) on 01/20/2023 4:56:44 PM Referred By: REFERRED SELF Confirmed By:Vito Simons
[2023-01-20 17:07] LABS: Appearance Urine Cloudy (Clear); Bacteria Urine Automated Negative (Negative); Bilirubin Urine Negative (Negative); Blood Urine 1+ (Negative); Color Urine Yellow; Glucose Urine UA Negative (Negative); Ketones Urine Negative (Negative); Leukocyte Esterase Urine 2+ (Negative); Nitrite Urine Negative (Negative); Protein Urine 3+ (Negative); Specific Gravity Urine 1.012 (1.000-1.030); Urobilinogen Urine Negative (Negative); WBC Urine Automated >30 /hpf (0-5)
[2023-01-20 17:21] LABS: RBC Urine Automated 0-4 /hpf (0-4)
[2023-01-20 17:35] LABS: Base Excess VBG -0.4 mEq/L; HCO3 VBG 27 mmol/L; Oxygen Saturation VBG 82.4 %; PCO2 VBG 53 mmHg (38-50); PO2 VBG 55 mmHg; pH VBG 7.31 (7.36-7.41)
[2023-01-20] MEDS ORDERED: VANCOMYCIN CONSULT ACTIVE PRN (17:56)
[2023-01-20] MEDS ORDERED: cefTRIAXone SODIUM 1,000 MG in DEXTROSE 5% AD-VAN 50 ML IV STA (17:56)
[2023-01-20] MEDS ORDERED: VANCOMYCIN HCL 2,000 MG in SODIUM CHLORIDE 0.9% 500 ML IV ONE (17:56)
[2023-01-20 18:48] LABS: Adenovirus PCR Not Detected (NotDetected); Bordetella parapertussis PCR Not Detected (NotDetected); Bordetella pertussis PCR Not Detected (NotDetected); Chlamydia pneumoniae PCR Not Detected (NotDetected); Coronavirus 229E PCR Not Detected (NotDetected); Coronavirus CoV-2 (COVID19)PCR Not Detected (NotDetected); Coronavirus HKU1 PCR Not Detected (NotDetected); Coronavirus NL63 PCR Not Detected (NotDetected); Coronavirus OC43PCR Not Detected (NotDetected); Human Metapneumovirus PCR Not Detected (NotDetected); Influenza A PCR Not Detected (NotDetected); Influenza B PCR Not Detected (NotDetected); Mycoplasma pneumoniae PCR Not Detected (NotDetected); Parainfluenza Virus 1 PCR Not Detected (NotDetected); Parainfluenza Virus 2 PCR Not Detected (NotDetected); Parainfluenza Virus 3 PCR Not Detected (NotDetected); Parainfluenza Virus 4 PCR Not Detected (NotDetected); Respiratory Syncytial VirusPCR Not Detected (NotDetected); Rhinovirus/Enterovirus PCR Not Detected (NotDetected)
--- NOTE | 2023-01-20 19:29 | History & Physical Report ---
Date of Service January 20, 2023 Assessment & Plan (1) AMS (altered mental status): (2) Acute UTI (urinary tract infection): (3) Anemia of chronic disease: (4) Anxiety: (5) Chronic kidney disease, stage 4 (severe): (6) CHF (congestive heart failure): (7) GERD (gastroesophageal reflux disease): (8) BPH (benign prostatic hyperplasia): (9) CAD (coronary artery disease): (10) Paroxysmal atrial fibrillation: (11) Dyslipidemia: (12) Hypertension: (13) Hypothyroidism: (14) COPD (chronic obstructive pulmonary disease): (15) Benign prostatic hyperplasia with urinary obstruction: (16) Peripheral vascular disease: (17) Wound of lower extremity: (18) Hypoglycemia due to insulin: (19) Bradycardia: (20) Thrombocytopenia: Plan Pt is a 87 yo male with a past medical history of CKD Stage 4 (previous admission with JUDI requiring temporary dialysis), hx DVT, 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 #Hypoglycemia - gave 30 units lantus this morning, pt had very little to eat, found unresponsive and initial BGS from was 31 - notes poor appetite since discharge from hospital - pt currently on lantus 30 units BID and novolog 18 units with meals (2-3x a day) - via BGS log brought by , he was having low blood sugars first thing in the morning (50-60s) - will do lantus 10 units a day #Leg Weakness - worsened weakness noted since hospital discharge, pt was in hospital for prolonged period of time (12/29-01/16) - last PT note on 01/13: pt able to walk 500 feet with walker - CT Lumbar spine on previous admission without acute changes, hip/pelvis x-ray negative then as well - Ortho consulted on previous admission; no plan for intervention at this time - will do PT/OT to evaluate pt again this admission - will check TSH and vitamin B12 levels in am #AMS - notes he has episodes of confusion, worse since discharge - CT head: no acute processes - Sore on buttock noted by , multiple leg blisters, - suspect delirium in the setting of low blood sugar secondary to insulin use with poor oral intake vs dehydration vs infectious process - urine showed yeast growth, pt has a jeronimo in place, notes hygiene of cath has been difficulty for her - urine culture pending - blood cultures pending #Leg wounds - blisters noted on legs, some small ones and other large areas that popped - suspect secondary to stasis dermatitis - WBC and lactate wnl - blood cultures pending #COPD - not on home O2, - continue home albuterol inhaler - continue home fluticasone propion-salmetrol - attempt to wean off oxygen use, maintain O2 88-92% for those with COPD #CKD stage 4 - previous admission had JUDI requiring temporary dialysis, no longer on dialysis - track I+Os #HTN - BPs low initially in ED, - continue home amlodipine - continue home metoprolol #HFpEF - last echo (10/2022): EF 60-65% - chest xray showed cardiomegaly with suggestion of mild pulmonary edema and small pleural effusions - continue home bumex #Anxiety - will decrease clonazepam to 0.5mg BID #Paroxysmal a fib - continue home eliquis #Hypothyroidism - continue home levothyroxine #BPH - continue home finasteride and flomax #GERD - continue home pantoprazole #HLD - continue home rosuvastatin VTE: Home eliquis Dispo: PCU + Tele Consults: - History of Present Illness Chief Complaint: Hypoglycemia, AMS Primary Care Provider: Cory Nunez DO Pt is a 87 yo male with a past medical history of CKD Stage 4 (previous admission with JUDI requiring temporary dialysis), hx DVT, 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 Pt was hard to arouse to interview, he appears very fatigued and is hard of hearing. Can awake to repeat verbal stimuli, but quickly goes back to sleep. Interview was conducted with , who is also his POA if needed; she states that he has not been himself since getting home from the hospital on Monday morning. She states that he has been very weak and fell on Monday, and at the time she called EMS and had them evaluate him and help pick him up because she was unable to pick him up on her own. She states that Monday night, he had complained of chest pain, but did not want her to take him to the hospital or call EMS. She states that on Monday night he also wanted to see his parents (who are ) and was talking to his brothers (who are also ). She notes he has had episodes of confusion and disorientation before. She then states that earlier today she found him passed out, clammy, and gurgling, and when she checked his sugar it was 31. She states she had given him his 30 units of lantus this morning but that he only ate a little bit of his eggs and toast he had for breakfast. She states he has had poor water intake since leaving the hospital and has not been eating as much. Overall, she states he has not walked on his own since leaving the hospital and she states that prior to the last admission he was able to walk on his own, sometimes without his walker. She states that she is concerned he has sepsis because he complained to her about chills and sweats at home and she noticed when bathing him that he had a sore on his buttock and that he has had large blisters on his legs since getting home from the hospital. She states one of the blisters got very large and popped and states that it drained pus. Allergies Allergy/AdvReac Type Severity Reaction Status Date / Time Cephalosporins Allergy Verified 01/06/23 09:15 ciprofloxacin [From Cipro] AdvReac Severe Unknown Verified 01/06/23 09:15 semaglutide [From Ozempic] AdvReac Severe NAUSEA/VOMI Verified 01/06/23 09:15 TING/ANOREX IA amlodipine AdvReac Intermediate SWELLING Verified 01/06/23 09:15 OF ANKLES ropinirole AdvReac Intermediate CHANGE IN Verified 01/06/23 09:15 MENTAL STATUS Home Medications Medication Instructions Recorded Confirmed Type albuterol sulfate 90 mcg/actuation 2 puffs inhalation Q6H PRN 01/10/19 12/29/22 History aerosol inhaler shortness of breath or wheezing levothyroxine 88 mcg tablet 88 mcg PO DAILYBB #90 tabs 01/10/19 12/29/22 History potassium chloride 20 mEq 20 meq PO BID 01/10/19 12/29/22 History tablet,extended release finasteride 5 mg tablet 5 mg PO HS 04/23/19 12/29/22 History gabapentin 100 mg capsule See Rx Instructions .Route .COMPLEX 12/16/20 12/29/22 History aspirin 81 mg tablet,delayed 81 mg PO DAILY 10/11/21 12/29/22 History release pantoprazole 20 mg tablet,delayed 20 mg PO BID 02/07/22 12/29/22 History release insulin glargine 100 unit/mL (3 30 unit subcut BID 04/12/22 12/29/22 History mL) subcutaneous pen (Lantus Solostar U-100 Insulin) acetaminophen 500 mg tablet 1,000 mg PO Q6H PRN PAIN/FEVER 05/28/22 12/29/22 History (Tylenol Extra Strength) clonazepam 1 mg tablet 1 mg PO BID 05/28/22 12/29/22 History diphenhydramine HCl 25 mg capsule 25 mg PO BID PRN NEEDED 05/28/22 12/29/22 History (Benadryl) fluticasone 500 mcg-salmeterol 50 1 inh inhalation BID 05/28/22 12/29/22 History mcg/dose blistr powdr for inhalation metoprolol tartrate 50 mg tablet 25 mg PO BID 05/28/22 12/29/22 History multivitamin with minerals 1 tab PO DAILY 05/28/22 12/29/22 History rosuvastatin 20 mg tablet 20 mg PO HS 05/28/22 12/29/22 History tiotropium bromide 2.5 2 puff inhalation DAILY 05/28/22 12/29/22 History mcg/actuation mist for inhalation vitamins A,C,Z-jmxj-oxyhjn 2,148 1 tab PO DAILY 05/28/22 12/29/22 History mcg-113 mg-45 mg-17.4 mg tablet (PreserVision AREDS) bumetanide 2 mg tablet 2 mg PO BID 12/28/22 12/29/22 History apixaban 5 mg tablet (Eliquis) 2.5 mg PO Q12H 12/29/22 12/29/22 History bacitracin zinc 500 unit-polymyxin 1 applic topical Q12H PRN Wound 12/29/22 12/29/22 History B 10,000 unit/gram topical ointment Care calcium citrate 315 mg-vitamin D3 2 tab PO DAILY 12/29/22 12/29/22 History 5 mcg (200 unit) tablet (Calcium Citrate + D) insulin aspart U-100 100 unit/mL 15 unit subcut AC PRN NEEDED 12/29/22 12/29/22 History (3 mL) subcutaneous pen (Novolog FlexPen U-100 Insulin aspart) loratadine 10 mg tablet (Claritin) 10 mg PO DAILY PRN Congestion 12/29/22 12/29/22 History tamsulosin 0.4 mg capsule (Flomax) 0.8 mg PO HS 12/29/22 12/29/22 History amlodipine 5 mg tablet (Norvasc) 10 mg PO QAM 30 days #60 tabs 01/16/23 Rx Past Med/Surg History Medical History [id number] kidney injury AMS (altered mental status) Anemia of chronic disease Anxiety Aortic stenosis Mild per 03/06/19 stress ECHO Asthma Uses rescue inhaler a couple times per week Atrial fibrillation Follows with Dr. Maile Soares Blindness of left eye BPH (benign prostatic hyperplasia) CAD (coronary artery disease) Angioplasty ~1993, CABG x 3 2013 (GALINDO to LAD, SVG to PDA, SVG to OM) CHF (congestive heart failure) Chronic kidney disease Follows with Dr. Dixon Chronic obstructive pulmonary disease Diabetes Type 2 IDDM Foot ulcer GERD (gastroesophageal reflux disease) Herpes zoster Hiatal hernia Hyperlipidemia Hypertension Hypothyroidism Leukocytosis Macular degeneration Myocardial infarct ~1993 Peripheral neuropathy Rupture of left distal biceps tendon hx - no surgery Secondary hyperparathyroidism (of renal origin) Surgical History Fusion of spine lumbar History of appendectomy History of cardiac cath with angioplasty ~1993 ([facility]) & 2013 ([facility]) History of cataract surgery bilateral History of coronary artery bypass graft x3 vessels ([facility] 2013) with epicardial RFA of pulmonary veins and left atrial appendage ligation History of revision of total replacement of right knee joint History of tonsillectomy History of tooth extraction History of total left knee replacement History of total right knee replacement Hx of colonoscopy Previous back surgery (08/26/12) S/P cholecystectomy Family History Brother Heart disease Diabetes Sister Cancer Mother Diabetes Father Diabetes Other Hypertension Kidney disease Social History Smoking Status: Never smoker Tobacco Type: Cigarettes Second Hand Exposure: No; Do You Dip or Chew Tobacco: No; Hx Alcohol Use: No Hx Substance Use: No Preferred Language: Nepali Communication Ability: Impaired Visual Impairment: Partially Limited Master Carpenter Required: No Beliefs That Will Affect Care: None marital status: Current Living Situation: Spouse Current Living Situation Comment: lives at home with current occupational status: retired Other Information That Helps Us Care for You: No Feels Safe at Home: Yes Assistive Devices: Oxygen - Continuous, Scooter/Electric Scooter, Walker and Wheelchair Review of Systems Review of Systems: Unable to obtain since pt repeatedly falls asleep during interview. Physical Exam Physical Exam: General: Lethargic, confused, awakens to repeat verbal stimuli Cardio: Regular rhythm, bradycardic 62 when examined Resp: Fine crackles heard GI: Soft and nontender, nondistended, bowel sounds active Skin: Warm, pale, multiple bruises noted on both arms, lower legs covered with bandages, large superficial skin wounds noted from previous blisters with some smaller blisters, serous drainage noted at this time Results & Data Results & Data Vital Signs (Past 12 Hours) Vital Signs Temp Pulse Resp BP Pulse Ox O2 Del Method O2 Flow Rate 01/20/23 18:30 48 L 15 128/57 L 98 Oxymask 6 01/20/23 18:01 45 L 12 100 01/20/23 18:01 114/54 L 01/20/23 18:00 45 L 14 01/20/23 17:45 44 L 12 97 Oxymask 6 01/20/23 17:45 99/46 L 01/20/23 17:30 43 L 12 01/20/23 17:30 103/44 L 01/20/23 17:17 44 L 22 100 Oxymask 01/20/23 17:17 123/63 01/20/23 17:15 53 L 16 98 01/20/23 17:01 44 L 20 100 01/20/23 17:01 110/49 L 01/20/23 17:00 50 L 17 01/20/23 16:49 43 L 15 99 01/20/23 16:45 54 L 14 114/42 L 99 01/20/23 16:34 45 L 14 100 Oxymask 01/20/23 16:34 106/44 L 01/20/23 16:31 46 L 15 99 01/20/23 16:31 89/41 L 01/20/23 16:30 47 L 20 99 01/20/23 16:16 45 L 23 100 01/20/23 16:16 122/49 L 01/20/23 16:15 46 L 15 100 01/20/23 16:01 47 L 21 100 Non-rebreather 01/20/23 16:01 125/60 01/20/23 16:00 47 L 19 100 01/20/23 15:45 48 L 22 100 01/20/23 15:45 99/47 L 01/20/23 15:31 48 L 13 92/49 L 100 Non-rebreather 15 01/20/23 15:35 34.9 C L 01/20/23 15:31 49 L 01/20/23 14:48 53 L 28 H 99/41 L 100 Non-rebreather Code Status & VTE Plan VTE Prophylaxis Plan VTE Prophylaxis will be ordered: Yes Supervising Physician Co-Signing Physician Notes I personally saw and examined the patient. I verified all aguayo points and agree with resident physician Dr Darline Carias, with the following exceptions and/or additions: 87 year old male presents to the ER with altered mental state. His had left and unable to get any history from the patient when seen. Please see above for full history. O/E Alert to voice, not orientated x3, dry mucus membranes, HS reduced rate, regular rhythm, no murmurs, Chest CTAB, Abdo SNT, not following commands, 2+ pitting edema in legs with blisters both open and closed without surrounding cellulitis A/P Altered mental status - suspect multifactorial but the largest problem appears to be hypoglycemia after recent admission and discharged on Lantus 30 units BID which appears to be more than needed. Will also reduce gabapentin and stop clonazepam. Monitor for withdrawal Hypoglycemia - Reduce Lantus to 10 units daily, NovoLog with 45 correction factor and 15 carb ratio, suspect reduce amount due to reduced appetite following AIN Hypoxia - Suspect from reduced mental status and work of breathing Bradycardia - hold metoprolol Hypothermia - concerning for infection however no source found on admission, TSH added for AM labs, follow up blood and urine cultures Dehydration - despite his pedal edema he otherwise appears clinically dry which fits with him not eating and drinking and going back on his usual bumex dosing after holding most of last admission, will therefore reduce his usual Bumex dosing to 1mg PO BID (previously held most of last admission) Resident Activity Tracking Resident Involvement: Resident Care Provided Care Provided: Adult Hospital Medicine (6) CHF (congestive heart failure) Heart failure chronicity: unspecified Heart failure type: unspecified Qualified Code(s): I50.9 - Heart failure, unspecified (7) GERD (gastroesophageal reflux disease) Esophagitis presence: esophagitis presence not specified Qualified Code(s): K21.9 - Gastro-esophageal reflux disease without esophagitis (8) BPH (benign prostatic hyperplasia) Lower urinary tract symptom presence: symptoms absent Qualified Code(s): N40.0 - Benign prostatic hyperplasia without lower urinary tract symptoms (9) CAD (coronary artery disease) Associated angina: without angina Coronary Disease-Associated Artery/Lesion type: [place] artery [place] vs. transplanted heart: [place] heart Qualified Code(s): I25.10 - Atherosclerotic heart disease of [place] coronary artery without angina pectoris (12) Hypertension Hypertension type: essential hypertension Qualified Code(s): I10 - Essential (primary) hypertension (13) Hypothyroidism Hypothyroidism type: unspecified Qualified Code(s): E03.9 - Hypothyroidism, unspecified (14) COPD (chronic obstructive pulmonary disease) COPD type: unspecified COPD Qualified Code(s): J44.9 - Chronic obstructive pulmonary disease, unspecified
[2023-01-20] MEDS ORDERED: GABAPENTIN 100 MG CAP PO SCH (20:29)
[2023-01-20] MEDS ORDERED: ALBUTEROL HFA 8 GM INHALER INH PRN (20:29)
[2023-01-20] MEDS ORDERED: POLYETHYLENE (MIRALAX) 17 GM PACK PO PRN (20:29)
[2023-01-20] MEDS ORDERED: ONDANSETRON INJ 2 MG/ML 2 ML VIAL IV PRN (20:29)
[2023-01-20] MEDS ORDERED: GLUCOSE 40% GEL 15 GM TUBE PO PRN (20:45)
[2023-01-20] MEDS ORDERED: GLUCOSE 10 TAB/TUBE PO PRN (20:45)
[2023-01-20] MEDS ORDERED: GLUCAGON FOR INJ 1 MG VIAL SQ PRN (20:45)
[2023-01-20] MEDS ORDERED: CARBOHYDRATES FOR HYPOGLYCEMIA PO PRN (20:45)
[2023-01-20] MEDS ORDERED: DEXTROSE 50% 50 ML SYRINGE IV PRN (20:45)
[2023-01-20] MEDS ORDERED: clonazePAM 0.5 MG TAB PO SCH (21:00)
[2023-01-20] MEDS ORDERED: POTASSIUM CHLORIDE CRTAB 20 MEQ TABCR PO SCH (21:00)
[2023-01-20] MEDS: INSULIN ASPART PER UNIT CHARGE SC SCH (21:00)
[2023-01-20] MEDS ORDERED: BUMETANIDE 1 MG TAB PO SCH (21:00)
[2023-01-20] MEDS ORDERED: METOPROLOL TARTRATE 25 MG TAB PO SCH (21:00)
[2023-01-20] MEDS ORDERED: GABAPENTIN 300 MG CAP PO SCH (21:00)
[2023-01-20] MEDS: APIXABAN 2.5 MG TAB PO SCH (21:11)
[2023-01-20] MEDS: TAMSULOSIN HCL 0.4 MG CAP PO SCH (21:11)
[2023-01-20] MEDS: ROSUVASTATIN CALCIUM 20 MG TAB PO SCH (21:11)
[2023-01-20] MEDS: FINASTERIDE 5 MG TAB PO SCH (21:13)
[2023-01-20] MEDS: PANTOprazole 40 MG TAB PO SCH (21:13)
[2023-01-20] MEDS: GABAPENTIN 100 MG CAP PO SCH (21:14)
[2023-01-21] MEDS: LEVOTHYROXINE SODIUM 88 MCG TABLET PO SCH (06:12)
[2023-01-21 07:18] LABS: Eosinophils # (auto) 0.16 K/uL (0.00-0.50); Hematocrit (blood only) 27.3 % (42.0-52.0); Hemoglobin 8.9 g/dl (14.0-18.0); Immature Granulocytes # (auto) 0.05 K/uL (0.01-0.20); Immature Granulocytes % (auto) 0.6 %; Lymphocytes # (auto) 1.52 K/uL (1.20-3.40); Lymphocytes % (auto) 19.1 %; Mean Corpuscular Hemoglobin 30.9 pg (25.0-34.0); Mean Corpuscular Hgb Conc 32.6 g/dL (32.0-36.0); Mean Corpuscular Volume 94.8 fL (80.0-100.0); Mean Platelet Volume 9.3 fL (9.4-12.4); Monocytes # (auto) 0.53 K/uL (0.11-0.59); Monocytes % (auto) 6.7 %; Neutrophils % (auto) 71.6 %; Platelet Count 82 K/uL (130-400); RDW Coefficient of Variation 15.8 % (11.5-14.5); RDW Standard Deviation 54.9 fL (36.4-46.3); Red Blood Count 2.88 M/uL (4.70-6.10); White Blood Count 7.96 K/ul (4.8-10.8)
--- NOTE | 2023-01-21 07:37 | Hospitalist Progress Note ---
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 #Gram Positive Bacteremia - likely E. faecalis #Sepsis Patient met SIRs criteria with tachypnea and hypothermia. 2/2 blood cultures positive for gram positive cocci in chains. Speciation and sensitivity pending. Likely streptococcus or enterococcus. Enterococcus faecalis PCR positive. Will need broad abx coverage and repeat blood cultures 24-48 hours after initiation of antibiotics. Site of infection is likely via the urinary tract as patient has Lopez in place. Patient with wounds on bilateral legs and the buttock which coul d also be sites of inoculation. Patient received vanc and ceftriaxone in the ED 01/20 ~18:00. Abx: Vanc and CTX 01/20 Ampicillin IV: start date: 01/21, end date: TBD f/u cx speciation/sensitivity wound nurse #Hypoglycemia Patient presented with hypoglycemic likely in the setting of supratherapeutic Lantus dosing and sepsis. Patient with poor appetite and decreased PO intake. Insulin dosing home regiment of 30 units of Lantus BID and 18 units with meals (2-3x daily). Patient was doing well with 10 units Lantus BID at last admission. Will resume this dosing with sliding scale coverage for meals/correction #AMS Sec to Infectious process and hypoglycemia- resolved #Leg wounds Blisters noted on legs, some small ones and other large areas that popped. Suspect secondary to stasis dermatitis vs skin breakdown. WBC and lactate WNL. blood cultures gram positive cocci in chains #Bradycardia HR in mid 40s in the ER. HR improved to 70s Continue to hold b mark for now #Thrombocytopenia Likely from infectious process. No thrombocytopenia noted on previous admissions. No signs of acute bleeding or consumptive process. AM CBC #COPD Not on home O2. Continue home albuterol inhaler PRN and scheduled fluticasone propionate-salmeterol on 4L NC - O2 Sat 88-92%, wean as tolerated Nebs as indicated IS #CKD stage 4 Previous admission had JUDI requiring temporary dialysis, no longer on dialysis. Cr improving. Avoid nephrotoxic agents. Stricts Is and Os #HTN BPs low initially in ED, now normotensive. Continue home meds - amlodipine and metoprolol #HFpEF Last echo (10/2022): EF 60-65%. CXR with cardiomegaly, mild pulmonary edema, small pleural effusions. Continue home Bumex. Monitor oxygen requirement. #Anxiety Home dosing of clonazepam is 1 mg BID. Held due to lethargy on admission. On discharge consider decreasing to 0.5 mg BID in the setting of hypoglycemic encephalopathy #Paroxysmal a fib Continue home Eliquis VTE: Eliquis Code: DNR/DNI FENGI: Carb Consistent Dispo: PCU, PT/OT for weakness (2) Acute UTI (urinary tract infection): (3) Anemia of chronic disease: (4) Anxiety: (5) Chronic kidney disease, stage 4 (severe): (6) CHF (congestive heart failure): (7) GERD (gastroesophageal reflux disease): (8) BPH (benign prostatic hyperplasia): (9) CAD (coronary artery disease): (10) Paroxysmal atrial fibrillation: (11) Dyslipidemia: (12) Hypertension: (13) Hypothyroidism: (14) COPD (chronic obstructive pulmonary disease): (15) Benign prostatic hyperplasia with urinary obstruction: (16) Peripheral vascular disease: (17) Wound of lower extremity: (18) Hypoglycemia due to insulin: (19) Thrombocytopenia: (20) Acidosis: Admission and Anticipated Discharge Date Admission Date: January 20, 2023 Supervising Physician Co-Signing Physician Notes Resident Physician Supervision Note: I independently interviewed and examined the patient and verified the aguayo history and physical, reviewed labs and image studies and agree with resident findings and care plan. Subjective Patient seen at bedside this AM. in the room. Patient without any c omplaints. No f/c/n/v/abdominal pain/CP/SOB Review of Systems Review of Systems: See HPI Physical Exam Physical Exam: Gen: non-toxic appearing male in NAD HEENT: AT NC MMM Resp: CTAB no wheezing CV: RRR 3-4/6 holosystolic murmur most notably LUSB, clinically well perfused Abd: soft, non-tender, non-distended Skin: no obvious rashes Extremities: bilateral wound dressings in place, clean dry and intact - no strike through, well perfused DP pulses 2+ intact Neuro: alert and oriented x3 Psych: appropriate mood and affect Results & Data Results & Data Vital Signs (Past 12 Hours) Vital Signs Temp Pulse Pulse Resp BP BP Pulse Ox 01/21/23 06:45 36.3 C L 01/21/23 03:50 37 C 01/21/23 03:00 97 01/21/23 02:43 36.8 C 63 18 127/63 98 01/20/23 23:27 52 L 01/20/23 22:53 01/20/23 22:51 52 L 01/20/23 22:50 35.7 C L 53 L 16 126/63 100 01/20/23 20:02 34.4 C L 50 L 18 162/66 H 100 01/20/23 20:29 01/20/23 20:20 45 L 16 126/52 L 99 01/20/23 19:30 47 L 22 99 01/20/23 19:30 126/53 L Pulse Ox O2 Del Method O2 Del Method O2 Flow Rate O2 Flow Rate 01/21/23 06:45 01/21/23 03:50 01/21/23 03:00 Nasal Cannula 4 01/21/23 02:43 Room Air 01/20/23 23:27 01/20/23 22:53 Oxymask 4 01/20/23 22:51 01/20/23 22:50 Oxymask 01/20/23 20:02 Oxymask 6 01/20/23 20:29 100 Oxymask 6 01/20/23 20:20 Oxymask 6 01/20/23 19:30 Oxymask 6 01/20/23 19:30 Laboratory Results 01/21/23 06:36 01/21/23 06:36 Microbiology 01/20/23 14:50 Blood Anaerobic Blood Culture - Preliminary Gram positive cocci in chains 01/20/23 15:25 Blood Aerobic Blood Culture - Preliminary Gram positive cocci in chains Resident Activity Tracking Resident Involvement: Resident Care Provided Care Provided: Adult Hospital Medicine (6) CHF (congestive heart failure) Heart failure chronicity: unspecified Heart failure type: unspecified Qualified Code(s): I50.9 - Heart failure, unspecified (7) GERD (gastroesophageal reflux disease) Esophagitis presence: esophagitis presence not specified Qualified Code(s): K21.9 - Gastro-esophageal reflux disease without esophagitis (8) BPH (benign prostatic hyperplasia) Lower urinary tract symptom presence: symptoms absent Qualified Code(s): N40.0 - Benign prostatic hyperplasia without lower urinary tract symptoms (9) CAD (coronary artery disease) Associated angina: without angina Coronary Disease-Associated Artery/Lesion type: [place] artery [place] vs. transplanted heart: [place] heart Qualified Code(s): I25.10 - Atherosclerotic heart disease of [place] coronary artery without angina pectoris (12) Hypertension Hypertension type: essential hypertension Qualified Code(s): I10 - Essential (primary) hypertension (13) Hypothyroidism Hypothyroidism type: unspecified Qualified Code(s): E03.9 - Hypothyroidism, unspecified (14) COPD (chronic obstructive pulmonary disease) COPD type: unspecified COPD Qualified Code(s): J44.9 - Chronic obstructive pulmonary disease, unspecified
[2023-01-21 08:04] LABS: BUN Creatinine Ratio 34.8 (10-20); Calcium 7.6 mg/dl (8.6-10.3); Creatinine Clr Calc Pharmacy 32.2 ml/min; Est GFR (African American) 38.9 ml/min; Est GFR (Non-African American) 33.6 ml/min; Potassium 4.5 mmol/L (3.5-5.1)
[2023-01-21 08:27] LABS: A calco-baum cmplx NotReported Not Detected (NotDetected); Bact fragilis Not Reported Not Detected (NotDetected); C auris Not Reported Not Detected (NotDetected); Calbicans Not Reported Not Detected (NotDetected); Candida glabrata Not Reported Not Detected (NotDetected); Candida krusei Not Reported Not Detected (NotDetected); Cneoformans/gatti Not Reported Not Detected (NotDetected); Cparapsilosis Not Reported Not Detected (NotDetected); Ctropicalis Not Reported Not Detected (NotDetected); E cloacae compx Not Reported Not Detected (NotDetected); Efaecalis Not Reported DETECTED (NotDetected); Efaecium Not Reported Not Detected (NotDetected); Enterobacterales Not Reported Not Detected (NotDetected); Escherichia coli Not Reported Not Detected (NotDetected); H influenzae Not Reported Not Detected (NotDetected); K aerogenes Not Reported Not Detected (NotDetected); Koxytoca Not Reported Not Detected (NotDetected); Kpneumoniae grp Not Reported Not Detected (NotDetected); Lmonocyt Not Reported Not Detected (NotDetected); N meningitidis Not Reported Not Detected (NotDetected); P aeruginosa Not Reported Not Detected (NotDetected); Proteus spp Not Reported Not Detected (NotDetected); Salmonella spp Not Reported Not Detected (NotDetected); Smarcescens Not Reported Not Detected (NotDetected); Staph lugdunensis Not Reported Not Detected (NotDetected); Staph spp. Not Reported Not Detected (NotDetected); Staphaureus Not Reported Not Detected (NotDetected); Staphepi Not Reported Not Detected (NotDetected); Stenmaltophilia Not Reported Not Detected (NotDetected); Strep agal(GrpB) Not Reported Not Detected (NotDetected); Strep pneum Not Reported Not Detected (NotDetected); Strep pyog (GrpA) Not Reported Not Detected (NotDetected); Strep spp Not Reported Not Detected (NotDetected); VanAB Resistant Gene VRE Not Detected (NotDetected)
--- NOTE | 2023-01-21 08:27 | Billing Data ---
Date of Service January 20, 2023 Coding Level of Care Code 59629 INT INP/OBS CARE
[2023-01-21 08:37] LABS: Enterococcus faecalis DETECTED (NotDetected)
[2023-01-21] MEDS: INSULIN ASPART PER UNIT CHARGE SC SCH ×4 (09:18→21:23)
[2023-01-21] MEDS: LANTUS PER UNIT CHARGE SQ SCH (09:28)
[2023-01-21] MEDS: APIXABAN 2.5 MG TAB PO SCH ×2 (09:29→21:19)
[2023-01-21] MEDS: ASPIRIN 81 MG ECTAB PO SCH (09:29)
[2023-01-21] MEDS: PANTOprazole 40 MG TAB PO SCH ×2 (09:29→21:18)
[2023-01-21] MEDS: POTASSIUM CHLORIDE CRTAB 20 MEQ TABCR PO SCH (09:29)
[2023-01-21] MEDS: UMECLIDINIUM BROMIDE 62.5MCG/BLISTER 7 PUFFS/INHALER INH SCH (09:29)
[2023-01-21] MEDS: BUMETANIDE 1 MG TAB PO SCH ×2 (09:29→13:17)
[2023-01-21] MEDS: amLODIPine BESYLATE 5 MG TAB PO SCH (09:30)
[2023-01-21] MEDS: GABAPENTIN 100 MG CAP PO SCH ×2 (09:30→21:19)
[2023-01-21] MEDS ORDERED: VANCOMYCIN CONSULT ACTIVE PRN ×2 (10:59)
[2023-01-21] MEDS ORDERED: VANCOMYCIN HCL 1,000 MG in SODIUM CHLORIDE 0.9% 250 ML IV SCH (11:00)
[2023-01-21] MEDS: AMPICILLIN 2,000 MG in 0.9 % SODIUM CHLORIDE 100 ML IV SCH ×3 (13:16→23:53)
[2023-01-21] MEDS: FINASTERIDE 5 MG TAB PO SCH (21:18)
[2023-01-21] MEDS: TAMSULOSIN HCL 0.4 MG CAP PO SCH (21:18)
[2023-01-21] MEDS: ROSUVASTATIN CALCIUM 20 MG TAB PO SCH (21:18)
[2023-01-22] MEDS: AMPICILLIN 2,000 MG in 0.9 % SODIUM CHLORIDE 100 ML IV SCH ×3 (06:17→18:25)
[2023-01-22] MEDS: LEVOTHYROXINE SODIUM 88 MCG TABLET PO SCH (06:17)
--- NOTE | 2023-01-22 07:07 | Hospitalist Progress Note ---
Date of Service January 22, 2023 Assessment & Plan (1) AMS (altered mental status): Plan: Chang is a 87 y/o male with a past medical history of CKD Stage 4 (previous admission with JUDI requiring temporary dialysis), hx DVT, DMT2 on insulin, HTN, hypothyroidism, paroxysmal a fib on Eliquis, CAD, BPH, GERD, CHF who presented with symptomatic hypoglycemia, weakness, and worsened AMS found to have gram positive bacteremia and sepsis. #Gram Positive Bacteremia - likely E. faecalis #Sepsis #AMS Enterococcus fecalis Not VRE. Site of infection is likely via the urinary tract as patient has Jeronimo in place. Abx: Vanc and CTX x1 01/20 Ampicillin IV: start date: 01/21, end date: TBD repeat blood cultures drawn 01/22 wound nurse consult #Indwelling Jeronimo Catheter Patient had Jeronimo placed on prior admission as there was initial concern for post-renal kidney injury. Unclear exactly when it was placed. First mentioned in urology note from 01/04. Jeronimo was to be removed after an outpatient voiding trial on 01/11, but due to extended hospitalization patient missed his Urology appointment and the Jeronimo remained in place. Patient with likely jeronimo associate d bacteremia as Jeronimo has been in place for >10 days. Would recommend voiding trial. If unable to void will replace Jeronimo and consult urology. voiding trial replace Ejronimo if unable to void #Hypoglycemia Patient presented with hypoglycemic (30s) likely in the setting of supratherapeutic Lantus dosing and sepsis. Patient with poor appetite and decreased PO intake. Insulin dosing home regimen of 30 units of Lantus BID and 18 units with meals (2-3x daily). Patient was on steroids during his last admission which played a role in his hyperglycemia and insulin requirement at that time. Patient 14 units of insulin in the last 24 hours. AM BSG was 68. Will hold basal dosing for now and continue with sliding scale. Will reevaluate basal insulin needs based on number of units needed in a 24 hour period. Holding basal Lantus of 10 units QAM Continue with carb ratio and correction factor Calculate insulin needs #Paroxysmal a fib Continue home Eliquis. Metoprolol was held as patient bradycardic. Will resume when patient is no longer bradycardic. #Leg wounds Chronic. Likely in the setting of chronic venous stasis changes and skin breakdown. #Thrombocytopenia Likely from infectious process. No thrombocytopenia noted on previous admissions. No signs of acute bleeding or consumptive process. Continue to monitor. #COPD Not on home O2. Continue home albuterol inhaler PRN and scheduled fluticasone propionate-salmeterol. Patient saturating well on RA. Goal SpO2 88-92%. #CKD stage 4 #AIN Previous admission had JUDI requiring temporary dialysis, no longer on dialysis. Cr improving. Avoid nephrotoxic agents. Strict Is and Os #HTN BPs low initially in ED, now normotensive. Continue home meds - amlodipine and metoprolol #HFpEF Last echo (10/2022): EF 60-65%. CXR with cardiomegaly, mild pulmonary edema, small pleural effusions. Continue home Bumex. Monitor oxygen requirement. #Anxiety Home dosing of clonazepam is 1 mg BID. Held due to lethargy on admission. Mental status has improved. Can consider restarting at a lower dose - 0.5 mg BID- reassess in am. VTE: Eliquis Code: DNR/DNI FENGI: Carb Consistent Dispo: PCU, PT/OT for weakness Lines: Jeronimo - voiding trial 01/22 (2) Acute UTI (urinary tract infection): (3) Anemia of chronic disease: (4) Anxiety: (5) Chronic kidney disease, stage 4 (severe): (6) CHF (congestive heart failure): (7) GERD (gastroesophageal reflux disease): (8) BPH (benign prostatic hyperplasia): (9) CAD (coronary artery disease): (10) Paroxysmal atrial fibrillation: (11) Dyslipidemia: (12) Hypertension: (13) Hypothyroidism: (14) COPD (chronic obstructive pulmonary disease): (15) Benign prostatic hyperplasia with urinary obstruction: (16) Peripheral vascular disease: (17) Wound of lower extremity: (18) Hypoglycemia due to insulin: (19) Thrombocytopenia: (20) Acidosis: Admission and Anticipated Discharge Date Admission Date: January 20, 2023 Supervising Physician Co-Signing Physician Notes Resident Physician Supervision Note: I independently interviewed and examined the patient and verified the aguayo history and physical, reviewed labs and image studies and agree with resident findings and care plan. Subjective Patient seen at bedside this AM. Unable to obtain history as patient needed to use the restroom. Returned twice to room and patient was still using the restroom. Review of Systems Review of Systems: See HPI Physical Exam Physical Exam: Gen: non-toxic appearing male in NAD HEENT: AT NC MMM Resp: no increased work of breathing CV: clinically well perfused Abd: non-distended Skin: no obvious rashes Extremities: bilateral wound dressings in place, clean dry and intact - no strike through Neuro: alert and oriented Psych: appropriate mood and affect Results & Data Results & Data Vital Signs (Past 12 Hours) Vital Signs Temp Pulse Pulse Resp BP Pulse Ox Pulse Ox 01/22/23 03:49 36.6 C 69 18 152/61 H 96 01/22/23 01:15 01/21/23 23:41 36.5 C 70 18 154/58 H 100 01/21/23 23:16 68 01/21/23 20:29 97 01/21/23 19:54 36.6 C 87 20 134/83 95 O2 Del Method O2 Del Method O2 Flow Rate O2 Flow Rate 01/22/23 03:49 Nasal Cannula 3 01/22/23 01:15 Nasal Cannula 4 01/21/23 23:41 Nasal Cannula 3 01/21/23 23:16 01/21/23 20:29 Nasal Cannula 4 01/21/23 19:54 Nasal Cannula 4 Laboratory Results 01/22/23 07:12 01/22/23 07:12 Resident Activity Tracking Resident Involvement: Resident Care Provided Care Provided: Adult Hospital Medicine (6) CHF (congestive heart failure) Heart failure chronicity: unspecified Heart failure type: unspecified Qualif ied Code(s): I50.9 - Heart failure, unspecified (7) GERD (gastroesophageal reflux disease) Esophagitis presence: esophagitis presence not specified Qualified Code(s): K21.9 - Gastro-esophageal reflux disease without esophagitis (8) BPH (benign prostatic hyperplasia) Lower urinary tract symptom presence: symptoms absent Qualified Code(s): N40.0 - Benign prostatic hyperplasia without lower urinary tract symptoms (9) CAD (coronary artery disease) Associated angina: without angina Coronary Disease-Associated Artery/Lesion type: [place] artery [place] vs. transplanted heart: [place] heart Qualified Code(s): I25.10 - Atherosclerotic heart disease of [place] coronary artery without angina pectoris (12) Hypertension Hypertension type: essential hypertension Qualified Code(s): I10 - Essential (primary) hypertension (13) Hypothyroidism Hypothyroidism type: unspecified Qualified Code(s): E03.9 - Hypothyroidism, unspecified (14) COPD (chronic obstructive pulmonary disease) COPD type: unspecified COPD Qualified Code(s): J44.9 - Chronic obstructive pulmonary disease, unspecified
[2023-01-22 08:01] LABS: Hematocrit (blood only) 28.4 % (42.0-52.0); Hemoglobin 9.4 g/dl (14.0-18.0); Mean Corpuscular Hemoglobin 30.9 pg (25.0-34.0); Mean Corpuscular Hgb Conc 33.1 g/dL (32.0-36.0); Mean Corpuscular Volume 93.4 fL (80.0-100.0); Platelet Count 85 K/uL (130-400); RDW Coefficient of Variation 15.4 % (11.5-14.5); RDW Standard Deviation 52.7 fL (36.4-46.3); Red Blood Count 3.04 M/uL (4.70-6.10); White Blood Count 7.41 K/ul (4.8-10.8)
[2023-01-22] MEDS: INSULIN ASPART PER UNIT CHARGE SC SCH ×4 (08:02→20:43)
[2023-01-22] MEDS: LANTUS PER UNIT CHARGE SQ SCH (08:07)
[2023-01-22] MEDS: amLODIPine BESYLATE 5 MG TAB PO SCH (08:09)
[2023-01-22] MEDS: BUMETANIDE 1 MG TAB PO SCH ×2 (08:09→14:31)
[2023-01-22] MEDS: APIXABAN 2.5 MG TAB PO SCH ×2 (08:09→20:42)
[2023-01-22] MEDS: PANTOprazole 40 MG TAB PO SCH ×2 (08:09→20:41)
[2023-01-22] MEDS: ASPIRIN 81 MG ECTAB PO SCH (08:10)
[2023-01-22] MEDS: GABAPENTIN 100 MG CAP PO SCH ×2 (08:10→20:41)
[2023-01-22] MEDS: UMECLIDINIUM BROMIDE 62.5MCG/BLISTER 7 PUFFS/INHALER INH SCH (08:12)
[2023-01-22] MEDS: POTASSIUM CHLORIDE CRTAB 20 MEQ TABCR PO SCH (08:12)
[2023-01-22] MEDS ORDERED: Nursing to Pharmacy Communication SCH (08:15)
[2023-01-22 08:28] LABS: BUN Creatinine Ratio 30.4 (10-20); Calcium 7.6 mg/dl (8.6-10.3); Creatinine Clr Calc Pharmacy 36.4 ml/min; Est GFR (African American) 44.9 ml/min; Est GFR (Non-African American) 38.8 ml/min; Potassium 4.2 mmol/L (3.5-5.1)
[2023-01-22] MEDS: ROSUVASTATIN CALCIUM 20 MG TAB PO SCH (20:41)
[2023-01-22] MEDS: FINASTERIDE 5 MG TAB PO SCH (20:41)
[2023-01-22] MEDS: TAMSULOSIN HCL 0.4 MG CAP PO SCH (20:42)
[2023-01-23] MEDS: AMPICILLIN 2,000 MG in 0.9 % SODIUM CHLORIDE 100 ML IV SCH ×4 (00:39→17:34)
[2023-01-23] MEDS: LEVOTHYROXINE SODIUM 88 MCG TABLET PO SCH (06:11)
--- NOTE | 2023-01-23 07:03 | Hospitalist Progress Note ---
Date of Service January 23, 2023 Assessment & Plan (1) AMS (altered mental status): Plan: Chang is a 87 y/o male with a past medical history of CKD Stage 4 (previous admission with JUDI requiring temporary dialysis), hx DVT, DMT2 on insulin, HTN, hypothyroidism, paroxysmal a fib on Eliquis, CAD, BPH, GERD, CHF who presented with symptomatic hypoglycemia, weakness, and worsened AMS found to have gram positive bacteremia and sepsis. #Gram Positive Bacteremia - likely E. faecalis #Sepsis #AMS Patient met SIRs criteria with tachypnea and hypothermia. 2/2 blood cultures positive for gram positive cocci in chains; likely enterococcus. Site of infection is likely via the urinary tract as patient has Lopez in place, although urine culture is negative. Patient with wounds on bilateral legs and the buttock which could also be sites of inoculation. Abx: Vanc and CTX x1 01/20 Ampicillin IV: start date: 01/21, end date: TBD f/u cx speciation/sensitivity repeat blood cultures drawn 01/22 no growth to date wound nurse consult ID consulted TTE pending # Goals of Care discussed frequent hospitalizations and desire to try and avoid future. Difficult because he has had good quality of life between stays and good recover from acute illnesses. Palliative care consult. #Indwelling Lopez Catheter Patient had Lopez placed on prior admission as there was initial concern for post-renal kidney injury. Unclear exactly when it was placed. First mentioned in urology note from 01/04. Lopez was to be removed after an outpatient voiding trial on 01/11, but due to extended hospitalization patient missed his Urology appointment and the Lopez remained in place. Patient with likely line associated bacteremia as Lopez has been in place for >10 days. - removed 01/22 and is urinated on his own #Hypoglycemia Patient presented with hypoglycemic (30s) likely in the setting of supratherapeutic Lantus dosing and sepsis. Patient with poor appetite and dec reased PO intake. Insulin dosing home regimen of 30 units of Lantus BID and 18 units with meals (2-3x daily). Patient was on steroids during his last admission which played a role in his hyperglycemia and insulin requirement at that time. Patient 15 units of insulin in the last 24 hours. Lantus 8 units QAM Continue with carb ratio and correction factor #Paroxysmal a fib Was on elquis for DVT treatment, stopped as has been greater than 6 months. patient received left atrial appendage ligation and pulmonary vein isolation in 2013 Metoprolol was held as patient bradycardic. Will resume when patient is no longer bradycardic. #Leg wounds Chronic. Likely in the setting of chronic venous stasis changes and skin breakdown. #Thrombocytopenia Likely from infectious process. No thrombocytopenia noted on previous admissions. No signs of acute bleeding or consumptive process. Continue to monitor. #COPD Not on home O2. Continue home albuterol inhaler PRN and scheduled fluticasone propionate-salmeterol. Patient saturating well on RA. Goal SpO2 88-92%. #CKD stage 4 #AIN Previous admission had JUDI requiring temporary dialysis, no longer on dialysis. Cr improving. Avoid nephrotoxic agents. Strict Is and Os #HTN BPs low initially in ED, now normotensive. Continue home meds - amlodipine and metoprolol #HFpEF Last echo (10/2022): EF 60-65%. CXR with cardiomegaly, mild pulmonary edema, small pleural effusions. Continue home Bumex. Monitor oxygen requirement. #Anxiety Home dosing of clonazepam is 1 mg BID. Held due to lethargy on admission. Mental status has improved. Will restart at 0.5 mg BID. VTE: Lovenox (renally dosed) Code: DNR/DNI FENGI: Carb Consistent Dispo: PCU, PT/OT for weakness Lines: Lopez - voiding trial 01/22 (2) Acute UTI (urinary tract infection): (3) Anemia of chronic disease: (4) Anxiety: (5) Chronic kidney disease, stage 4 (severe): (6) CHF (congestive heart failure): (7) GERD (gastroesophageal reflux disease): (8) BPH (benign prostatic hyperplasia): (9) CAD (coronary artery disease): (10) Paroxysmal atrial fibrillation: (11) Dyslipidemia: (12) Hypertension: (13) Hypothyroidism: (14) COPD (chronic obstructive pulmonary disease): (15) Benign prostatic hyperplasia with urinary obstruction: (16) Peripheral vascular disease: (17) Wound of lower extremity: (18) Hypoglycemia due to insulin: (19) Thrombocytopenia: (20) Acidosis: Admission and Anticipated Discharge Date Admission Date: January 20, 2023 Supervising Physician Co-Signing Physician Notes I personally examined the patient and verified all aguayo points of history and exam, discussed case, and agree with decision making with Dr Christian feeling okay. Did well with therapy per his report. Vitals noted, in general he is awake and alert pleasant no distress. HEENT normocephalic atraumatic mucous membranes moist. Breathing unlabored no accessory muscle use good effort. Skin shows no rashes no pallor or icterus. Recurrent Enterococcus bacteremialast had same in october. appears persistent this time - ID consult, echo goals of care - understands he's had a number of severe acute illnesses and is quite old, but at the same time notes realistically that in between he's gotten better and has quality of life - even in brief spurts. for now wants to continue with aggressive care of his acute illnesses as they come up. Subjective Saw pt at bedside this morning. Did not sleep well, otherwise no complaints. Discussed frequent hospitalizations and goals of care. Goal to go home and stay out of the hospital, scared to be home. Review of Systems Review of Systems: As per above Physical Exam Physical Exam: Constitutional: well-appearing, no acute distress HEENT: NCAT, no conjunctival injection CV: well perfused, no murmur appreciated, extremities well-perfused Resp: no increased work of breathing GI: nondistended MSK: no gross deformities appreciated Skin: warm, dry, no rash appreciated Neuro: alert, oriented, no focal neurologic deficit appreciated Results & Data Results & Data Vital Signs (Past 12 Hours) Vital Signs Temp Pulse Pulse Resp BP Pulse Ox Pulse Ox 01/23/23 00:00 76 01/23/23 03:48 36.8 C 83 18 153/68 H 94 01/22/23 23:19 36.6 C 71 18 151/68 H 97 01/22/23 20:00 01/22/23 20:00 97 01/22/23 19:35 36.7 C 78 16 135/56 L 97 O2 Del Method O2 Del Method 01/23/23 00:00 01/23/23 03:48 Room Air 01/22/23 23:19 Room Air 01/22/23 20:00 Room Air 01/22/23 20:00 Room Air 01/22/23 19:35 Room Air Resident Activity Tracking Resident Involvement: Resident Care Provided Care Provided: Adult Hospital Medicine (6) CHF (congestive heart failure) Heart failure chronicity: unspecified Heart failure type: unspecified Qualified Code(s): I50.9 - Heart failure, unspecified (7) GERD (gastroesophageal reflux disease) Esophagitis presence: esophagitis presence not specified Qualified Code(s): K21.9 - Gastro-esophageal reflux disease without esophagitis (8) BPH (benign prostatic hyperplasia) Lower urinary tract symptom presence: symptoms absent Qualified Code(s): N40.0 - Benign prostatic hyperplasia without lower urinary tract symptoms (9) CAD (coronary artery disease) Associated angina: without angina Coronary Disease-Associated Artery/Lesion type: [place] artery [place] vs. transplanted heart: [place] heart Qualified Code(s): I25.10 - Atherosclerotic heart disease of [place] coronary artery without angina pectoris (12) Hypertension Hypertension type: essential hypertension Qualified Code(s): I10 - Essential (primary) hypertension (13) Hypothyroidism Hypothyroidism type: unspecified Qualified Code(s): E03.9 - Hypothyroidism, unspecified (14) COPD (chronic obstructive pulmonary disease) COPD type: unspecified COPD Qualified Code(s): J44.9 - Chronic obstructive pulmonary disease, unspecified
[2023-01-23 07:39] LABS: Hematocrit (blood only) 27.5 % (42.0-52.0); Hemoglobin 9.1 g/dl (14.0-18.0); Mean Corpuscular Hemoglobin 30.2 pg (25.0-34.0); Mean Corpuscular Hgb Conc 33.1 g/dL (32.0-36.0); Mean Corpuscular Volume 91.4 fL (80.0-100.0); Mean Platelet Volume 9.7 fL (9.4-12.4); Platelet Count 78 K/uL (130-400); RDW Coefficient of Variation 15.1 % (11.5-14.5); RDW Standard Deviation 50.3 fL (36.4-46.3); Red Blood Count 3.01 M/uL (4.70-6.10)
[2023-01-23 07:59] LABS: BUN Creatinine Ratio 23.8 (10-20); Calcium 7.8 mg/dl (8.6-10.3); Creatinine Clr Calc Pharmacy 33.2 ml/min; Est GFR (African American) 40.5 ml/min; Potassium 4.1 mmol/L (3.5-5.1)
[2023-01-23] MEDS: PANTOprazole 40 MG TAB PO SCH ×2 (08:00→21:17)
[2023-01-23] MEDS: amLODIPine BESYLATE 5 MG TAB PO SCH (08:00)
[2023-01-23] MEDS: ASPIRIN 81 MG ECTAB PO SCH (08:00)
[2023-01-23] MEDS: UMECLIDINIUM BROMIDE 62.5MCG/BLISTER 7 PUFFS/INHALER INH SCH (08:00)
[2023-01-23] MEDS: APIXABAN 2.5 MG TAB PO SCH (08:00)
[2023-01-23] MEDS: GABAPENTIN 100 MG CAP PO SCH ×2 (08:01→21:17)
[2023-01-23] MEDS: BUMETANIDE 1 MG TAB PO SCH ×2 (08:01→13:01)
[2023-01-23] MEDS: INSULIN ASPART PER UNIT CHARGE SC SCH ×4 (08:02→21:19)
[2023-01-23] MEDS: POTASSIUM CHLORIDE CRTAB 20 MEQ TABCR PO SCH (08:02)
--- NOTE | 2023-01-23 17:45 | Billing Data ---
Date of Service January 23, 2023 Coding Level of Care Code 22276 SUB INP/OBS CARE MIN
[2023-01-23] MEDS ORDERED: ENOXAPARIN INJ 30 MG/0.3 ML SYR SQ SCH (18:00)
[2023-01-23] MEDS: clonazePAM 0.5 MG TAB PO SCH (21:15)
[2023-01-23] MEDS: ROSUVASTATIN CALCIUM 20 MG TAB PO SCH (21:16)
[2023-01-23] MEDS: FINASTERIDE 5 MG TAB PO SCH (21:17)
[2023-01-23] MEDS: TAMSULOSIN HCL 0.4 MG CAP PO SCH (21:18)
[2023-01-24] MEDS: AMPICILLIN 2,000 MG in 0.9 % SODIUM CHLORIDE 100 ML IV SCH ×4 (00:16→17:23)
[2023-01-24] MEDS: LEVOTHYROXINE SODIUM 88 MCG TABLET PO SCH (06:21)
--- NOTE | 2023-01-24 07:26 | Hospitalist Progress Note ---
Date of Service January 24, 2023 Assessment & Plan (1) AMS (altered mental status): Plan: Chang is a 87 y/o male with a past medical history of CKD Stage 4 (previous admission with JUDI requiring temporary dialysis), hx DVT, DMT2 on insulin, HTN, hypothyroidism, paroxysmal a fib on Eliquis, CAD, BPH, GERD, CHF who presented with symptomatic hypoglycemia, weakness, and worsened AMS found to have gram positive bacteremia and sepsis. #Gram Positive Bacteremia - likely E. faecalis #Sepsis #AMS Patient met SIRs criteria with tachypnea and hypothermia. 2/2 blood cultures positive for gram positive cocci in chains; likely enterococcus. Site of infection is likely via the urinary tract as patient has Lopez in place, although urine culture is negative. Patient with wounds on bilateral legs and the buttock which could also be sites of inoculation. Abx: Vanc and CTX x1 01/20 Ampicillin IV: start date: 01/21, end date: TBD f/u cx speciation/sensitivity repeat blood cultures drawn 01/22 positive for gram + cocci in chains wound nurse consult ID consulted TTE pending # Goals of Care discussed frequent hospitalizations and desire to try and avoid future. Difficult because he has had good quality of life between stays and good recover from acute illnesses. Palliative care consult-> will plan to see as an OP #Indwelling Lopez Catheter Patient had Lopez placed on prior admission as there was initial concern for post-renal kidney injury. Unclear exactly when it was placed. First mentioned in urology note from 01/04. Lopez was to be removed after an outpatient voiding trial on 01/11, but due to extended hospitalization patient missed his Urology appointment and the Lopez remained in place. Patient with likely line associated bacteremia as Lopez has been in place for >10 days. - removed 01/22 and is urinated on his own #Hypoglycemia Patient presented with hypoglycemic (30s) likely in the setting of supratherapeutic Lantus dosing and sepsis. Patient with poor appetite and decreased PO intake. Insulin dosing home regimen of 30 units of Lantus BID and 18 units with meals (2-3x daily). Patient was on steroids during his last admis [place] which played a role in his hyperglycemia and insulin requirement at that time. Patient 15 units of insulin in the last 24 hours. Lantus 8 units QAM Continue with carb ratio and correction factor #Paroxysmal a fib Was on Eliquis for DVT treatment, stopped as has been greater than 6 months. patient received left atrial appendage ligation and pulmonary vein isolation in 2013 Metoprolol was held as patient bradycardic. Will resume as patient is no longer bradycardic. #Leg wounds Chronic. Likely in the setting of chronic venous stasis changes and skin breakdown. #Thrombocytopenia Likely from infectious process. No thrombocytopenia noted on previous admissions. No signs of acute bleeding or consumptive process. Continue to monitor. #COPD Not on home O2. Continue home albuterol inhaler PRN and scheduled fluticasone propionate-salmeterol. Patient saturating well on RA. Goal SpO2 88-92%. #CKD stage 4 #AIN Previous admission had JUDI requiring temporary dialysis, no longer on dialysis. Cr improving. Avoid nephrotoxic agents. Strict Is and Os #HTN BPs low initially in ED, now normotensive. Continue home meds - amlodipine and metoprolol #HFpEF Last echo (10/2022): EF 60-65%. CXR with cardiomegaly, mild pulmonary edema, small pleural effusions. Continue home Bumex. Monitor oxygen requirement. #Anxiety Home dosing of clonazepam is 1 mg BID. Held due to lethargy on admission. Mental status has improved. Will restart at 0.5 mg BID. VTE: Held due to thrombocytopenia Code: DNR/DNI NELLAI: Carb Consistent Dispo: PCU, PT/OT for weakness (2) Acute UTI (urinary tract infection): (3) Anemia of chronic disease: (4) Anxiety: (5) Chronic kidney disease, stage 4 (severe): (6) CHF (congestive heart failure): (7) GERD (gastroesophageal reflux disease): (8) BPH (benign prostatic hyperplasia): (9) CAD (coronary artery disease): (10) Paroxysmal atrial fibrillation: (11) Dyslipidemia: (12) Hypertension: (13) Hypothyroidism: (14) COPD (chronic obstructive pulmonary disease): (15) Benign prostatic hyperplasia with urinary obstruction: (16) Peripheral vascular disease: (17) Wound of lower extremity: (18) Hypoglycemia due to insulin: (19) Thrombocytopenia: (20) Acidosis: Admission and Anticipated Discharge Date Admission Date: January 20, 2023 Supervising Physician Co-Signing Physician Notes I personally examined the patient and verified all aguayo points of history and exam, discussed case, and agree with decision making with Dr Christian discusses big picture goals of care of wanting to let God be in charge, discussses granular goals of wanting to get into/out of house, go to appointments, etc. common thread seems to be that he is getting tired of being so sick so often. Vitals noted, in general he is awake and alert pleasant no distress. HEENT normocephalic atraumatic mucous membranes moist. Breathing unlabored no accessory muscle use good effort. Skin shows no rashes no pallor or icterus. Recurrent Enterococcus bacteremialast had same in october. appears persistent this time - ID consult pending, echo pending, repeat cultures again today. continue ampicillin for now goals of care - understands he's had a number of severe acute illnesses and is quite old, but at the same time notes realistically that in between he's gotten better and has quality of life - even in brief spurts. today talks in directions "big picture" that might be more congruous with a hospice/comfort approach, but then when looking at granular details he seems to want medical problems to be treated/addressed Subjective Pt seen at bedside this morning. Doing well. No complaints. Up in chair. Review of Systems Review of Systems: As per above Physical Exam Physical Exam: Constitutional: well-appearing, no acute distress HEENT: NCAT, no conjunctival injection CV: well-perfused Resp: no increased work of breathing GI: nondistended MSK: no gross deformities appreciated Skin: warm, dry, no rash appreciated Neuro: alert, oriented, no focal neurologic deficit appreciated Results & Data Results & Data Vital Signs (Past 12 Hours) Vital Signs Temp Pulse Pulse Resp BP Pulse Ox Pulse Ox 01/24/23 03:21 36.8 C 78 18 142/61 H 95 01/24/23 00:00 86 01/23/23 20:00 01/23/23 20:00 96 01/23/23 22:58 36.6 C 90 18 154/74 H 98 O2 Del Method O2 Del Method 01/24/23 03:21 Room Air 01/24/23 00:00 01/23/23 20:00 Room Air 01/23/23 20:00 Room Air 01/23/23 22:58 Room Air (6) CHF (congestive heart failure) Heart failure chronicity: unspecified Heart failure type: unspecified Qualified Code(s): I50.9 - Heart failure, unspecified (7) GERD (gastroesophageal reflux disease) Esophagitis presence: esophagitis presence not specified Qualified Code(s): K21.9 - Gastro-esophageal reflux disease without esophagitis (8) BPH (benign prostatic hyperplasia) Lower urinary tract symptom presence: symptoms absent Qualified Code(s): N40.0 - Benign prostatic hyperplasia without lower urinary tract symptoms (9) CAD (coronary artery disease) Associated angina: without angina Coronary Disease-Associated Artery/Lesion type: [place] artery [place] vs. transplanted heart: [place] heart Qualified Code(s): I25.10 - Atherosclerotic heart disease of [place] coronary artery without angina pectoris (12) Hypertension Hypertension type: essential hypertension Qualified Code(s): I10 - Essential (primary) hypertension (13) Hypothyroidism Hypothyroidism type: unspecified Qualified Code(s): E03.9 - Hypothyroidism, unspecified (14) COPD (chronic obstructive pulmonary disease) COPD type: unspecified COPD Qualified Code(s): J44.9 - Chronic obstructive pulmonary disease, unspecified
[2023-01-24 07:48] LABS: Hematocrit (blood only) 28.3 % (42.0-52.0); Hemoglobin 9.4 g/dl (14.0-18.0); Mean Corpuscular Hemoglobin 30.7 pg (25.0-34.0); Mean Corpuscular Hgb Conc 33.2 g/dL (32.0-36.0); Mean Corpuscular Volume 92.5 fL (80.0-100.0); Platelet Count 61 K/uL (130-400); RDW Coefficient of Variation 14.6 % (11.5-14.5); RDW Standard Deviation 49.6 fL (36.4-46.3); Red Blood Count 3.06 M/uL (4.70-6.10); White Blood Count 4.98 K/ul (4.8-10.8)
[2023-01-24 08:02] LABS: BUN Creatinine Ratio 19.6 (10-20); Creatinine Clr Calc Pharmacy 33.6 ml/min; Est GFR (African American) 41.7 ml/min; Potassium 4.7 mmol/L (3.5-5.1)
[2023-01-24] MEDS: UMECLIDINIUM BROMIDE 62.5MCG/BLISTER 7 PUFFS/INHALER INH SCH (08:29)
[2023-01-24] MEDS: ASPIRIN 81 MG ECTAB PO SCH (08:29)
[2023-01-24] MEDS: GABAPENTIN 100 MG CAP PO SCH ×2 (08:29→21:46)
[2023-01-24] MEDS: amLODIPine BESYLATE 5 MG TAB PO SCH (08:29)
[2023-01-24] MEDS: BUMETANIDE 1 MG TAB PO SCH ×2 (08:29→13:10)
[2023-01-24] MEDS: PANTOprazole 40 MG TAB PO SCH ×2 (08:29→21:46)
[2023-01-24] MEDS: INSULIN ASPART PER UNIT CHARGE SC SCH ×4 (08:38→21:47)
[2023-01-24] MEDS: LANTUS PER UNIT CHARGE SQ SCH (08:39)
[2023-01-24] MEDS: clonazePAM 0.5 MG TAB PO SCH ×2 (08:39→21:47)
[2023-01-24] MEDS: POTASSIUM CHLORIDE CRTAB 20 MEQ TABCR PO SCH (08:39)
[2023-01-24 10:14] LABS: Fibrinogen 659 mg/dl (184-400); INR 1.1 (0.9-1.1)
--- NOTE | 2023-01-24 13:19 | Billing Data ---
Date of Service January 24, 2023 Coding Level of Care Code 83358 SUB INP/OBS CARE MIN
--- NOTE | 2023-01-24 15:40 | Infectious Disease Consult ---
Date of Consultation January 24, 2023 Assessment & Plan (1) Wound of lower extremity: (2) AMS (altered mental status): (3) Bacteremia: Plan #Efaecalis bacteremia #AMS #LE wounds #CKD MICRO 01/20 Blood cultures E. faecalis, Amp sensitive 01/20 Ucx three types of organism all high counts probable skin gilma 01/22 GPC in chain 01/24 Bcx in lab 87 yo male with a past medical history of CKD, DVT, DM, HTN, pAfib on eliquis, CAD, BPH, GERD, CHF who presents to the hospital on 01/20/2023 for hypoglycemia, weakness and worsened AMS. ID consulted for Gram positive bacteremia. HPI obtained via EMR. Per , patient very weak and fell. The following day he c/o chest pain but did not want her to take him to the hospital or call EMS. He had episodes of confusion and disorientation before. On day of admit, he was found to be hypoglycemic. Notably large blisters on his legs since getting home from the hospital. She states one of the blisters got very large and popped and states that it drained pus. Recently discharged from hospital on 01/16, admitted with JUDI, dx with acute interstitial nephritis. On admission on 01/20, WBC normal, but patient found to be altered and concern for UTI. WBC normal, Cr 2.08 He was given Vancomycin and ceftriaxone. 01/20 Blood cultures E. faecalis, Amp sensitive 01/20 Ucx three types of organism all high counts probable skin gilma 01/22 GPC in chain Recommend: -Continue with Ampicillin source GI vs skin, less likely UTI given Ucx findings -Follow 01/24 Bcx -2de Thank you, ID will follow Consultation Information This patient recommendation is based on a telemedicine consult request which was completed asynchronously through chart review and information provided by the primary physician. The patient was not seen or examined today. The evaluation is consultative in nature and all patient care and treatment decisions can either be accepted or rejected by the patient's primary hospital-based treating physician using their own independent medical judgment for their patient. Board Liner Operator contact information: Please call [facility] . (Phone Number For Physician Use Only) Time Spent Reviewing Chart: 31+ minutes History of Present Illness Reason for Consultation: bacteremia Requesting Physician: Dr. Harrell Attending Physician: Alexandru Harrell, DO History of Present Illness 87 yo male with a past medical history of CKD, DVT, DM, HTN, pAfib on eliquis, CAD, BPH, GERD, CHF who presents to the hospital on 01/20/2023 for hypoglycemia, weakness and worsened AMS. ID consulted for Gram positive bacteremia. HPI obtained via EMR. Per , patient very weak and fell. The following day he c/o chest pain but did not want her to take him to the hospital or call EMS. He had episodes of confusion and disorientation before. On day of admit, he was found to be hypoglycemic. Notably large blisters on his legs since getting home from the hospital. She states one of the blisters got very large and popped and states that it drained pus. Recently discharged from hospital on 01/16, admitted with JUDI, dx with acute interstitial nephritis. On admission on 01/20, WBC normal, but patient found to be altered and concern for UTI. WBC normal, Cr 2.08 He was given Vancomycin and ceftriaxone. 01/20 Blood cultures E. faecalis, Amp sensitive 01/20 Ucx three types of organism all high counts probable skin gilma 01/22 GPC in chain ID now consulted Allergies Allergy/AdvReac Type Severity Reaction Status Date / Time Cephalosporins Allergy Verified 01/06/23 09:15 ciprofloxacin [From Cipro] AdvReac Severe Unknown Verified 01/06/23 09:15 semaglutide [From Ozempic] AdvReac Severe NAUSEA/VOMI Verified 01/06/23 09:15 TING/ANOREX IA amlodipine AdvReac Intermediate SWELLING Verified 01/06/23 09:15 OF ANKLES ropinirole AdvReac Intermediate CHANGE IN Verified 01/06/23 09:15 MENTAL STATUS Home Medications Medication Instructions Recorded Confirmed Type albuterol sulfate 90 mcg/actuation 2 puffs inhalation Q6H PRN 01/10/19 12/29/22 History aerosol inhaler shortness of breath or wheezing levothyroxine 88 mcg tablet 88 mcg PO DAILYBB #90 tabs 01/10/19 12/29/22 History potassium chloride 20 mEq 20 meq PO BID 01/10/19 12/29/22 History tablet,extended release finasteride 5 mg tablet 5 mg PO HS 04/23/19 12/29/22 History gabapentin 100 mg capsule See Rx Instructions .Route .COMPLEX 12/16/20 12/29/22 History aspirin 81 mg tablet,delayed 81 mg PO DAILY 10/11/21 12/29/22 History release pantoprazole 20 mg tablet,delayed 20 mg PO BID 02/07/22 12/29/22 History release insulin glargine 100 unit/mL (3 30 unit subcut BID 04/12/22 12/29/22 History mL) subcutaneous pen (Lantus Solostar U-100 Insulin) acetaminophen 500 mg tablet 1,000 mg PO Q6H PRN PAIN/FEVER 05/28/22 12/29/22 History (Tylenol Extra Strength) clonazepam 1 mg tablet 1 mg PO BID 05/28/22 12/29/22 History diphenhydramine HCl 25 mg capsule 25 mg PO BID PRN NEEDED 05/28/22 12/29/22 History (Benadryl) fluticasone 500 mcg-salmeterol 50 1 inh inhalation BID 05/28/22 12/29/22 History mcg/dose blistr powdr for inhalation metoprolol tartrate 50 mg tablet 25 mg PO BID 05/28/22 12/29/22 History multivitamin with minerals 1 tab PO DAILY 05/28/22 12/29/22 History rosuvastatin 20 mg tablet 20 mg PO HS 05/28/22 12/29/22 History tiotropium bromide 2.5 2 puff inhalation DAILY 05/28/22 12/29/22 History mcg/actuation mist for inhalation vitamins A,C,I-lguq-kjledg 2,148 1 tab PO DAILY 05/28/22 12/29/22 History mcg-113 mg-45 mg-17.4 mg tablet (PreserVision AREDS) bumetanide 2 mg tablet 2 mg PO BID 12/28/22 12/29/22 History apixaban 5 mg tablet (Eliquis) 2.5 mg PO Q12H 12/29/22 12/29/22 History bacitracin zinc 500 unit-polymyxin 1 applic topical Q12H PRN Wound 12/29/22 0 12/29/22 History B 10,000 unit/gram topical ointment Care calcium citrate 315 mg-vitamin D3 2 tab PO DAILY 12/29/22 12/29/22 History 5 mcg (200 unit) tablet (Calcium Citrate + D) insulin aspart U-100 100 unit/mL 15 unit subcut AC PRN NEEDED 12/29/22 12/29/22 History (3 mL) subcutaneous pen (Novolog FlexPen U-100 Insulin aspart) loratadine 10 mg tablet (Claritin) 10 mg PO DAILY PRN Congestion 12/29/22 12/29/22 History tamsulosin 0.4 mg capsule (Flomax) 0.8 mg PO HS 12/29/22 12/29/22 History amlodipine 5 mg tablet (Norvasc) 10 mg PO QAM 30 days #60 tabs 01/16/23 Rx Patient History Medical History [id number]-[id number] kidney injury AMS (altered mental status) Anemia of chronic disease Anxiety Aortic stenosis Mild per 03/06/19 stress ECHO Asthma Uses rescue inhaler a couple times per week Atrial fibrillation Follows with Dr. Maile Soares Blindness of left eye BPH (benign prostatic hyperplasia) CAD (coronary artery disease) Angioplasty ~1993, CABG x 3 2013 (GALINDO to LAD, SVG to PDA, SVG to OM) CHF (congestive heart failure) Chronic kidney disease Follows with Dr. Dixon Chronic obstructive pulmonary disease Diabetes Type 2 IDDM Foot ulcer GERD (gastroesophageal reflux disease) Herpes zoster Hiatal hernia Hyperlipidemia Hypertension Hypothyroidism Leukocytosis Macular degeneration Myocardial infarct ~1993 Peripheral neuropathy Rupture of left distal biceps tendon hx - no surgery Secondary hyperparathyroidism (of renal origin) Surgical History Fusion of spine lumbar History of appendectomy History of cardiac cath with angioplasty ~1993 ([facility]) & 2013 ([facility]) History of cataract surgery bilateral History of coronary artery bypass graft x3 vessels ([facility] 2013) with epicardial RFA of pulmonary veins and left atrial appendage ligation History of revision of total replacement of right knee joint History of tonsillectomy History of tooth extraction History of total left knee replacement History of total right knee replacement Hx of colonoscopy Previous back surgery (08/26/12) S/P cholecystectomy Family History Brother Heart disease Diabetes Sister Cancer Mother Diabetes Father Diabetes Other Hypertension Kidney disease Social History Smoking Status: Never smoker Tobacco Type: Cigarettes Second Hand Exposure: No; Do You Dip or Chew Tobacco: No; Hx Alcohol Use: No Hx Substance Use: No Preferred Language: Urugu[place] Communication Ability: Effective Visual Impairment: Partially Limited Bi Specialist Required: No Beliefs That Will Affect Care: None marital status: Current Living Situation: Spouse Current Living Situation Comment: lives at home with current occupational status: retired Other Information That Helps Us Care for You: No Feels Safe at Home: Yes Assistive Devices: Bedside Commode, Scooter/Electric Scooter, Walker, Wheelchair and Other Results & Data Vital Signs (Past 12 Hours) Vital Signs Temp Pulse Pulse Resp BP Pulse Ox O2 Del Method 01/24/23 11:09 36.7 C 83 20 124/70 96 Room Air 01/24/23 08:30 Room Air 01/24/23 07:59 107 H 01/24/23 07:53 147/78 H 01/24/23 07:36 36.7 C 90 18 192/63 H 90 Room Air Laboratory Results Laboratory Results - last 48 hr 01/22/23 01/22/23 01/23/23 16:41 20:06 06:59 WBC RBC Hgb Hct MCV MCH MCHC RDW Std Deviation RDW Coeff of Adrian Plt Count MPV PT INR Fibrinogen Sodium 137 Potassium 4.1 Chloride 105 Carbon Dioxide 24 Anion Gap 8 BUN 41 H Creatinine 1.72 H Est Cr Clr Drug Dosing 33.2 Est GFR ( Amer) 40.5 Est GFR (Non-Af Amer) 35.0 BUN/Creatinine Ratio 23.8 H Glucose 166 H POC Glucose 171 H 186 H Calcium 7.8 L 01/23/23 01/23/23 01/23/23 06:59 07:13 11:16 WBC 5.90 RBC 3.01 L Hgb 9.1 L Hct 27.5 L MCV 91.4 MCH 30.2 MCHC 33.1 RDW Std Deviation 50.3 H RDW Coeff of Adrian 15.1 H Plt Count 78 L MPV 9.7 PT INR Fibrinogen Sodium Potassium Chloride Carbon Dioxide Anion Gap BUN Creatinine Est Cr Clr Drug Dosing Est GFR ( Amer) Est GFR (Non-Af Amer) BUN/Creatinine Ratio Glucose POC Glucose 169 H 195 H Calcium 01/23/23 01/23/23 01/24/23 16:30 20:33 06:50 WBC RBC Hgb Hct MCV MCH MCHC RDW Std Deviation RDW Coeff of Adrian Plt Count MPV PT INR Fibrinogen Sodium 138 Potassium 4.7 Chloride 107 Carbon Dioxide 23 Anion Gap 8 BUN 33 H Creatinine 1.68 H Est Cr Clr Drug Dosing 33.6 Est GFR ( Amer) 41.7 Est GFR (Non-Af Amer) 36.0 BUN/Creatinine Ratio 19.6 Glucose 228 H POC Glucose 238 H 225 H Calcium 8.0 L 01/24/23 01/24/23 01/24/23 06:50 07:17 09:12 WBC 4.98 RBC 3.06 L Hgb 9.4 L Hct 28.3 L MCV 92.5 MCH 30.7 MCHC 33.2 RDW Std Deviation 49.6 H RDW Coeff of Adrian 14.6 H Plt Count 61 L MPV 11.0 PT 12.0 INR 1.1 Fibrinogen 659 H Sodium Potassium Chloride Carbon Dioxide Anion Gap BUN Creatinine Est Cr Clr Drug Dosing Est GFR ( Amer) Est GFR (Non-Af Amer) BUN/Creatinine Ratio Glucose POC Glucose 221 H Calcium 01/24/23 01/24/23 10:57 10:59 WBC RBC Hgb Hct MCV MCH MCHC RDW Std Deviation RDW Coeff of Adrian Plt Count MPV PT INR Fibrinogen Sodium Potassium Chloride Carbon Dioxide Anion Gap BUN Creatinine Est Cr Clr Drug Dosing Est GFR ( Amer) Est GFR (Non-Af Amer) BUN/Creatinine Ratio Glucose POC Glucose 309 H* 294 H Calcium Medications Administered Current Inpatient Medications Acetaminophen (Acetaminophen 325 Mg Tab) 650 mg PO Q4H PRN PRN Reason: Pain or Fever Stop: 02/19/23 20:28 Albuterol (Albuterol Hfa 8 Gm Inhaler) 2 puffs INH Q6H PRN PRN Reason: shortness of breath or wheezing Stop: 02/19/23 20:28 Amlodipine Besylate (Amlodipine Besylate 5 Mg Tab) 10 mg PO QAM [facility] Stop: 02/20/23 08:59 Last Admin: 01/24/23 08:29 Dose: 10 mg Apixaban (Apixaban 2.5 Mg Tab) 2.5 mg PO Q12 [facility] Stop: 02/19/23 20:28 Last Admin: 01/23/23 08:00 Dose: 2.5 mg Aspirin (Aspirin 81 Mg Ectab) 81 mg PO DAILY [facility] Stop: 02/20/23 08:59 Last Admin: 01/24/23 08:29 Dose: 81 mg Bumetanide (Bumetanide 1 Mg Tab) 1 mg PO BID@0800,1400 [facility] Stop: 02/20/23 07:59 Last Admin: 01/24/23 13:10 Dose: 1 mg Clonazepam (Clonazepam 0.5 Mg Tab) 0.5 mg PO BID [facility] Stop: 02/22/23 20:59 Last Admin: 01/24/23 08:39 Dose: 0.5 mg Dextrose (Dextrose 50% 50 Ml Syringe) 25 - 50 ml IV UD PRN; Protocol PRN Reason: Hypoglycemia Protocol Stop: 02/19/23 20:44 Finasteride (Finasteride 5 Mg Tab) 5 mg PO HS [facility] Stop: 02/19/23 20:59 Last Admin: 01/23/23 21:17 Dose: 5 mg Gabapentin (Gabapentin 100 Mg Cap) 100 mg PO QAM [facility] Stop: 02/20/23 08:59 Last Admin: 01/24/23 08:29 Dose: 100 mg Gabapentin (Gabapentin 100 Mg Cap) 100 mg PO PM [facility] Stop: 02/19/23 20:59 Last Admin: 01/23/23 21:17 Dose: 100 mg Glucagon (Glucagon For Inj 1 Mg Vial) 1 mg SQ UD PRN; Protocol PRN Reason: Hypoglycemia Protocol Stop: 02/19/23 20:44 Glucose (Glucose 10 Tab/Tube) 4 - 8 tab PO UD PRN; Protocol PRN Reason: Hypoglycemia Treatment Stop: 02/19/23 20:44 Glucose (Glucose 40% Gel 15 Gm Tube) 15 - 30 gm PO UD PRN; Protocol PRN Reason: Hypoglycemia Protocol Stop: 02/19/23 20:44 Ampicillin Sodium 2,000 mg/ (Sodium Chloride) 108 mls @ 200 mls/hr IV Q6 [facility] Stop: 02/04/23 11:29 Last Infusion: 01/24/23 13:10 Dose: Infused Insulin Aspart (Insulin Aspart Per Unit Charge) 0 units SC ACHS [facility] Stop: 02/19/23 20:59 Last Admin: 01/24/23 12:26 Dose: 8 units Insulin Glargine (Lantus Per Unit Charge) 8 units SQ QAM [facility] Stop: 02/23/23 08:59 Last Admin: 01/24/23 08:39 Dose: 8 units Levothyroxine Sodium (Levothyroxine Sodium 88 Mcg Tablet) 88 mcg PO DAILYBB [facility] Stop: 02/20/23 06:29 Last Admin: 01/24/23 06:21 Dose: 88 mcg Miscellaneous (Carbohydrates For Hypoglycemia ) 15 - 30 gm PO UD PRN PRN Reason: Hypoglycemia Protocol Stop: 02/19/23 20:44 Last Admin: 01/22/23 07:27 Dose: 15 gm Ondansetron HCl (Ondansetron Inj 2 Mg/Ml 2 Ml Vial) 4 mg IV Q6H PRN PRN Reason: Nausea Stop: 02/19/23 20:28 Pantoprazole Sodium (Pantoprazole 40 Mg Tab) 40 mg PO BID [facility] Stop: 02/19/23 20:59 Last Admin: 01/24/23 08:29 Dose: 40 mg Polyethylene Glycol (Polyethylene (Miralax) 17 Gm Pack) 17 gm PO DAILY PRN PRN Reason: Constipation Stop: 02/19/23 20:28 Potassium Chloride (Potassium Chloride Crtab 20 Meq Tabcr) 20 meq PO QAM [facility] Stop: 02/20/23 08:59 Last Admin: 01/24/23 08:39 Dose: 20 meq Rosuvastatin Calcium (Rosuvastatin Calcium 20 Mg Tab) 20 mg PO HS [facility] Stop: 02/19/23 20:59 Last Admin: 01/23/23 21:16 Dose: 20 mg Tamsulosin HCl (Tamsulosin Hcl 0.4 Mg Cap) 0.8 mg PO HS [facility] Stop: 02/19/23 20:59 Last Admin: 01/23/23 21:18 Dose: 0.8 mg Umeclidinium [place] (Umeclidinium [place] 62.5mcg/Blister 7 Puffs/Inhaler) 1 puffs INH DAILY [facility] Stop: 02/20/23 08:59 Last Admin: 01/24/23 08:29 Dose: 1 puffs
--- NOTE | 2023-01-24 19:23 | XCELERA ---
[id number] [id number]
[2023-01-24] MEDS: TAMSULOSIN HCL 0.4 MG CAP PO SCH (21:46)
[2023-01-24] MEDS: FINASTERIDE 5 MG TAB PO SCH (21:46)
[2023-01-24] MEDS: ROSUVASTATIN CALCIUM 20 MG TAB PO SCH (21:46)
[2023-01-24] MEDS: METOPROLOL TARTRATE 25 MG TAB PO SCH (21:46)
[2023-01-25] MEDS: AMPICILLIN 2,000 MG in 0.9 % SODIUM CHLORIDE 100 ML IV SCH ×4 (00:14→17:45)
[2023-01-25] MEDS: LEVOTHYROXINE SODIUM 88 MCG TABLET PO SCH (06:15)
--- NOTE | 2023-01-25 06:50 | Hospitalist Progress Note ---
Date of Service January 25, 2023 Assessment & Plan (1) AMS (altered mental status): Plan: Chang is a 87 y/o male with a past medical history of CKD Stage 4 (previous admission with JUDI requiring temporary dialysis), hx DVT, DMT2 on insulin, HTN, hypothyroidism, paroxysmal a fib on Eliquis, CAD, BPH, GERD, CHF who presented with symptomatic hypoglycemia, weakness, and worsened AMS found to have gram positive bacteremia and sepsis. #Gram Positive Bacteremia - likely E. faecalis #Sepsis #AMS Patient met SIRs criteria with tachypnea and hypothermia. 2/2 blood cultures positive for gram positive cocci in chains; likely enterococcus. Site of infection is likely via the urinary tract as patient has Lopez in place, although urine culture is negative. Patient with wounds on bilateral legs and the buttock which could also be sites of inoculation. Abx: Vanc and CTX x1 01/20 Ampicillin IV: start date: 01/21, end date: TBD f/u cx speciation/sensitivity repeat blood cultures drawn 01/22 positive for gram + cocci in chains wound nurse consult ID consulted TTE without vegetation, discussed GLO and pt is consider # Goals of Care discussed frequent hospitalizations and desire to try and avoid future. Difficult because he has had good quality of life between stays and good recover from acute illnesses. Palliative care consult-> will plan to see as an OP #Indwelling Lopez Catheter Patient had Lopez placed on prior admission as there was initial concern for post-renal kidney injury. Unclear exactly when it was placed. First mentioned in urology note from 01/04. Lopez was to be removed after an outpatient voiding trial on 01/11, but due to extended hospitalization patient missed his Urology appointment and the Lopez remained in place. Patient with likely line associated bacteremia as Lopez has been in place for >10 days. - removed 01/22 and is urinated on his own #Hypoglycemia Patient presented with hypoglycemic (30s) likely in the setting of supratherapeutic Lantus dosing and sepsis. Patient with poor appetite and decreased PO intake. Insulin dosing home regimen of 30 units of Lantus BID and 18 units with meals (2-3x daily). Patient was on steroids during his last admission which played a role in his hyperglycemia and insulin requirement at that time. Patient 26 units of insulin in the last 24 hours. Lantus 13 units QAM Continue with carb ratio and correction factor #Paroxysmal a fib Was on Eliquis for DVT treatment, stopped as has been greater than 6 months. patient received left atrial appendage ligation and pulmonary vein isolation in 2013 Metoprolol was held as patient bradycardic. Resumed as patient is no longer bradycardic. #Leg wounds Chronic. Likely in the setting of chronic venous stasis changes and skin breakdown. #Thrombocytopenia Likely from infectious process. No thrombocytopenia noted on previous admissions. No signs of acute bleeding or consumptive process. Continue to monitor. #COPD Not on home O2. Continue home albuterol inhaler PRN and scheduled fluticasone propionate-salmeterol. Patient saturating well on RA. Goal SpO2 88-92%. #CKD stage 4 #AIN Previous admission had JUDI requiring temporary dialysis, no longer on dialysis. Cr improving. Avoid nephrotoxic agents. Strict Is and Os #HTN BPs low initially in ED, now normotensive. Continue home meds - amlodipine and metoprolol #HFpEF Last echo (10/2022): EF 60-65%. CXR with cardiomegaly, mild pulmonary edema, small pleural effusions. Continue home Bumex. Monitor oxygen requirement. #Anxiety Home dosing of clonazepam is 1 mg BID. Held due to lethargy on admission. Mental status has improved. Will restart at 0.5 mg BID. VTE: Held due to thrombocytopenia Code: DNR/DNI FENGI: Carb Consistent Dispo: PCU, PT/OT for weakness (2) Acute UTI (urinary tract infection): (3) Anemia of chronic disease: (4) Anxiety: (5) Chronic kidney disease, stage 4 (severe): (6) CHF (congestive heart failure): (7) GERD (gastroesophageal reflux disease): (8) BPH (benign prostatic hyperplasia): (9) CAD (coronary artery disease): (10) Paroxysmal atrial fibrillation: (11) Dyslipidemia: (12) Hypertension: (13) Hypothyroidism: (14) COPD (chronic obstructive pulmonary disease): (15) Benign prostatic hyperplasia with urinary obstruction: (16) Peripheral vascular disease: (17) Wound of lower extremity: (18) Hypoglycemia due to insulin: (19) Thrombocytopenia: (20) Acidosis: Admission and Anticipated Discharge Date Admission Date: January 20, 2023 Supervising Physician Co-Signing Physician Notes I personally examined the patient and verified all aguayo points of history and exam, discussed case, and agree with decision making with Dr Christian present. Discussed current acute problems and treatment, possible diagnostic and therapeutic options moving forward, also discussed his big picture sentiments of being ready if God is ready to take him, contrasting with his more in the moment decision making of wanting things done that still can be done. Vitals noted, in general he is awake and alert pleasant no distress. HEENT normocephalic atraumatic mucous membranes moist. Breathing unlabored no accessory muscle use good effort. Skin shows no rashes no pallor or icterus. Recurrent Enterococcus bacteremialast had same in october. appears persistent this time - ID consult appreciated, transthoracic echo without vegetation, but not an extremely reassuring picture as valves were not well visualized, repeat repeat cultures are pending, considering GLO versus more prolonged treatmentawait further ID input, as well as patient considerations on if he would want a GLO goals of care -ongoing discussions, particularly as it relates to his big picture expression of goals and ideals versus his daily decision making, right now it certainly seems rational for him to want to continue to have acute illnesses treated given that he bounces back each time, and yet at the same time he continues to express a big picture sentiments of almost consistent with comfort measures onlywhich once we get into more granular decision making is absolutely not the caseasked him and his to discuss these types of issues more in detail. Subjective Pt seen at bedside this morning. Was up and sitting in chair. Doing well, no events overnight. States that his and him had a lot discussion yesterday and he is agreeable to going to [facility] after this hospital stay. Review of Systems Review of Systems: As per above Physical Exam Physical Exam: Constitutional: well-appearing, no acute distress HEENT: NCAT, no conjunctival injection CV: well-perfused Resp: no increased work of breathing GI: nondistended MSK: no gross deformities appreciated Skin: warm, dry, no rash appreciated Neuro: alert, oriented, no focal neurologic deficit appreciated Results & Data Results & Data Vital Signs (Past 12 Hours) Vital Signs Temp Pulse Pulse Resp BP Pulse Ox O2 Del Method 01/25/23 00:00 89 01/25/23 03:31 36.7 C 70 18 120/52 L Room Air 01/24/23 20:00 Room Air 01/24/23 23:24 36.7 C 96 H 18 140/55 L 96 Room Air 01/24/23 20:00 01/24/23 19:35 36.7 C 80 16 150/68 H Room Air O2 Del Method 01/25/23 00:00 01/25/23 03:31 01/24/23 20:00 01/24/23 23:24 01/24/23 20:00 Room Air 01/24/23 19:35 Resident Activity Tracking Resident Involvement: Resident Care Provided Care Provided: Adult Hospital Medicine (6) CHF (congestive heart failure) Heart failure chronicity: unspecified Heart failure type: unspecified Qualified Code(s): I50.9 - Heart failure, unspecified (7) GERD (gastroesophageal reflux disease) Esophagitis presence: esophagitis presence not specified Qualified Code(s): K21.9 - Gastro-esophageal reflux disease without esophagitis (8) BPH (benign prostatic hyperplasia) Lower urinary tract symptom presence: symptoms absent Qualified Code(s): N40.0 - Benign prostatic hyperplasia without lower urinary tract symptoms (9) CAD (coronary artery disease) Associated angina: without angina Coronary Disease-Associated Artery/Lesion type: [place] artery [place] vs. transplanted heart: [place] heart Qualified Code(s): I25.10 - Atherosclerotic heart disease of [place] coronary artery without angina pectoris (12) Hypertension Hypertension type: essential hypertension Qualified Code(s): I10 - Essential (primary) hypertension (13) Hypothyroidism Hypothyroidism type: unspecified Qualified Code(s): E03.9 - Hypothyroidism, u nspecified (14) COPD (chronic obstructive pulmonary disease) COPD type: unspecified COPD Qualified Code(s): J44.9 - Chronic obstructive pulmonary disease, unspecified
[2023-01-25] MEDS: BUMETANIDE 1 MG TAB PO SCH ×2 (08:23→13:20)
[2023-01-25] MEDS: amLODIPine BESYLATE 5 MG TAB PO SCH (08:23)
[2023-01-25] MEDS: METOPROLOL TARTRATE 25 MG TAB PO SCH ×2 (08:23→21:23)
[2023-01-25] MEDS: ASPIRIN 81 MG ECTAB PO SCH (08:23)
[2023-01-25] MEDS: GABAPENTIN 100 MG CAP PO SCH ×2 (08:23→21:23)
[2023-01-25] MEDS: PANTOprazole 40 MG TAB PO SCH ×2 (08:24→21:23)
[2023-01-25] MEDS: UMECLIDINIUM BROMIDE 62.5MCG/BLISTER 7 PUFFS/INHALER INH SCH (08:24)
[2023-01-25] MEDS: clonazePAM 0.5 MG TAB PO SCH (08:33)
[2023-01-25] MEDS: POTASSIUM CHLORIDE CRTAB 20 MEQ TABCR PO SCH (08:33)
[2023-01-25] MEDS: LANTUS PER UNIT CHARGE SQ SCH (08:33)
[2023-01-25] MEDS: INSULIN ASPART PER UNIT CHARGE SC SCH ×4 (08:34→21:31)
[2023-01-25 08:41] LABS: Hematocrit (blood only) 30.6 % (42.0-52.0); Hemoglobin 9.8 g/dl (14.0-18.0); Mean Corpuscular Hemoglobin 30.2 pg (25.0-34.0); Mean Corpuscular Volume 94.4 fL (80.0-100.0); Platelet Count 112 K/uL (130-400); RDW Coefficient of Variation 14.8 % (11.5-14.5); RDW Standard Deviation 51.7 fL (36.4-46.3); Red Blood Count 3.24 M/uL (4.70-6.10); White Blood Count 6.66 K/ul (4.8-10.8)
[2023-01-25 09:01] LABS: BUN Creatinine Ratio 16.8 (10-20); Calcium 8.3 mg/dl (8.6-10.3); Creatinine Clr Calc Pharmacy 30.6 ml/min; Est GFR (African American) 37.4 ml/min; Est GFR (Non-African American) 32.2 ml/min; Potassium 4.3 mmol/L (3.5-5.1)
--- NOTE | 2023-01-25 18:39 | Billing Data ---
Date of Service January 25, 2023 Coding Level of Care Code 80751 SUB INP/OBS CARE MIN
[2023-01-25] MEDS: clonazePAM 1 MG TAB PO SCH (20:15)
[2023-01-25] MEDS: TAMSULOSIN HCL 0.4 MG CAP PO SCH (21:23)
[2023-01-25] MEDS: FINASTERIDE 5 MG TAB PO SCH (21:24)
[2023-01-25] MEDS: ROSUVASTATIN CALCIUM 20 MG TAB PO SCH (21:24)
[2023-01-25] MEDS: APIXABAN 2.5 MG TAB PO SCH (22:35)
[2023-01-26] MEDS: AMPICILLIN 2,000 MG in 0.9 % SODIUM CHLORIDE 100 ML IV SCH ×4 (00:06→17:36)
[2023-01-26] MEDS: LEVOTHYROXINE SODIUM 88 MCG TABLET PO SCH (05:44)
[2023-01-26 06:35] LABS: Hematocrit (blood only) 26.9 % (42.0-52.0); Mean Corpuscular Hemoglobin 30.4 pg (25.0-34.0); Mean Corpuscular Hgb Conc 33.5 g/dL (32.0-36.0); Mean Corpuscular Volume 90.9 fL (80.0-100.0); Mean Platelet Volume 9.8 fL (9.4-12.4); Platelet Count 116 K/uL (130-400); RDW Coefficient of Variation 14.6 % (11.5-14.5); RDW Standard Deviation 48.3 fL (36.4-46.3); Red Blood Count 2.96 M/uL (4.70-6.10); White Blood Count 5.42 K/ul (4.8-10.8)
[2023-01-26 06:58] LABS: BUN Creatinine Ratio 16.1 (10-20); Calcium 7.6 mg/dl (8.6-10.3); Creatinine Clr Calc Pharmacy 31.8 ml/min; Est GFR (African American) 38.4 ml/min; Est GFR (Non-African American) 33.1 ml/min; Potassium 3.5 mmol/L (3.5-5.1)
--- NOTE | 2023-01-26 07:14 | Hospitalist Progress Note ---
Date of Service January 26, 2023 Assessment & Plan (1) AMS (altered mental status): Plan: Chang is a 87 y/o male with a past medical history of CKD Stage 4 (previous admission with JUDI requiring temporary dialysis), hx DVT, DMT2 on insulin, HTN, hypothyroidism, paroxysmal a fib on Eliquis, CAD, BPH, GERD, CHF who presented with symptomatic hypoglycemia, weakness, and worsened AMS found to have gram positive bacteremia and sepsis. #Gram Positive Bacteremia - likely E. faecalis #Sepsis #AMS Patient met SIRs criteria with tachypnea and hypothermia. 2/2 blood cultures positive for gram positive cocci in chains; likely enterococcus. Site of infection is likely via the urinary tract as patient has Lopez in place, although urine culture is negative. Patient with wounds on bilateral legs and the buttock which could also be sites of inoculation. Abx: Vanc and CTX x1 01/20 Ampicillin IV: start date: 01/21, end date: TBD f/u cx speciation/sensitivity repeat blood cultures drawn 01/22 positive for gram + cocci in chains wound nurse consult ID consulted TTE without vegetation, discussed GLO and pt declines. F/u with ID for duration of antibiotics. # Goals of Care discussed frequent hospitalizations and desire to try and avoid future. Difficult because he has had good quality of life between stays and good recover from acute illnesses. Palliative care consult-> will plan to see as an OP #Indwelling Lopez Catheter Patient had Lopez placed on prior admission as there was initial concern for post-renal kidney injury. Unclear exactly when it was placed. First mentioned in urology note from 01/04. Lopez was to be removed after an outpatient voiding trial on 01/11, but due to extended hospitalization patient missed his Urology appointment and the Lopez remained in place. Patient with likely line associated bacteremia as Lopez has been in place for >10 days. - removed 01/22 and is urinated on his own #Hypoglycemia Patient presented with hypoglycemic (30s) likely in the setting of supratherapeutic Lantus dosing and sepsis. Patient with poor appetite and decreased PO intake. Insulin dosing home regimen of 30 units of Lantus BID and 18 units with meals (2-3x daily). Patient was on steroids during his last admission which played a role in his hyperglycemia and insulin requirement at that time. Patient 26 units of insulin in the last 24 hours. Lantus 13 units QAM Continue with carb ratio and correction factor #Paroxysmal a fib Was on Eliquis for DVT treatment, given elevated risk of clotting eliquis was resumed patient received left atrial appendage ligation and pulmonary vein isolation in 2013 Metoprolol was held as patient bradycardic. Resumed as patient is no longer bradycardic. #Leg wounds Chronic. Likely in the setting of chronic venous stasis changes and skin breakdown. #Thrombocytopenia Likely from infectious process. No thrombocytopenia noted on previous admissions. No signs of acute bleeding or consumptive process. Continue to monitor. #COPD Not on home O2. Continue home albuterol inhaler PRN and scheduled fluticasone propionate-salmeterol. Patient saturating well on RA. Goal SpO2 88-92%. #CKD stage 4 #AIN Previous admission had JUDI requiring temporary dialysis, no longer on dialysis. Cr improving. Avoid nephrotoxic agents. Strict Is and Os #HTN BPs low initially in ED, now normotensive. Continue home meds - amlodipine and metoprolol #HFpEF Last echo (10/2022): EF 60-65%. CXR with cardiomegaly, mild pulmonary edema, small pleural effusions. Continue home Bumex. Monitor oxygen requirement. #Anxiety Home dosing of clonazepam is 1 mg BID. Held due to lethargy on admission. Mental status has improved. Will restart at 1 mg BID. VTE: resume eliquis Code: DNR/DNI FENGI: Carb Consistent Dispo PT/OT for weakness (2) Acute UTI (urinary tract infection): (3) Anemia of chronic disease: (4) Anxiety: (5) Chronic kidney disease, stage 4 (severe): (6) CHF (congestive heart failure): (7) GERD (gastroesophageal reflux disease): (8) BPH (benign prostatic hyperplasia): (9) CAD (coronary artery disease): (10) Paroxysmal atrial fibrillation: (11) Dyslipidemia: (12) Hypertension: (13) Hypothyroidism: (14) COPD (chronic obstructive pulmonary disease): (15) Benign prostatic hyperplasia with urinary obstruction: (16) Peripheral vascular disease: (17) Wound of lower extremity: (18) Hypoglycemia due to insulin: (19) Thrombocytopenia: (20) Acidosis: Admission and Anticipated Discharge Date Admission Date: January 20, 2023 Supervising Physician Co-Signing Physician Notes I personally examined the patient and verified all aguayo points of history and exam, discussed case, and agree with decision making with Dr Christian no new complaints, doesn't think he would want to undergo GLO. Vitals noted, in general he is awake and alert pleasant no distress. HEENT normocephalic atraumatic mucous membranes moist. Breathing unlabored no accessory muscle use good effort. Skin shows no rashes no pallor or icterus. Recurrent Enterococcus bacteremialast had same in october. appears persistent this time - ID consult appreciated, transthoracic echo without vegetation, but not an extremely reassuring picture as valves were not well visualized, repeat repeat cultures are NGTD, in light of not wanting GLO - will need ID input but probably will want to treat for longer duration than just for uncomplicated bacteremia goals of care -ongoing discussions, particularly as it relates to his big picture expression of goals and ideals versus his daily decision making, right now it certainly seems rational for him to want to continue to have acute illnesses treated given that he bounces back each time, and yet at the same time he continues to express a big picture sentiments of almost consistent with comfort measures onlywhich once we get into more granular decision making is absolutely not the caseasked him and his to discuss these types of issues more in detail. for now working towards centre care Subjective Pt seen at bedside. Sitting in chair. States that he was tearful overnight, concerns about rehab and duration of time he will be there. Review of Systems Review of Systems: As per above Physical Exam Physical Exam: Constitutional: well-appearing, no acute distress HEENT: NCAT, no conjunctival injection CV: well-perfused Resp: no increased work of breathing GI: nondistended MSK: no gross deformities appreciated Skin: warm, dry, no rash appreciated Neuro: alert, oriented, no focal neurologic deficit appreciated Results & Data Results & Data Vital Signs (Past 12 Hours) Vital Signs Temp Pulse Pulse Resp BP Pulse Ox Pulse Ox 01/26/23 03:00 36.5 C 69 16 154/68 H 96 01/25/23 21:58 83 01/25/23 19:15 01/25/23 23:00 36.8 C 68 16 131/69 93 01/25/23 20:00 97 O2 Del Method O2 Del Method 01/26/23 03:00 Room Air 01/25/23 21:58 01/25/23 19:15 Room Air 01/25/23 23:00 Room Air 01/25/23 20:00 Room Air Resident Activity Tracking Resident Involvement: Resident Care Provided Care Provided: Adult Hospital Medicine (6) CHF (congestive heart failure) Heart failure chronicity: unspecified Heart failure type: unspecified Qu alified Code(s): I50.9 - Heart failure, unspecified (7) GERD (gastroesophageal reflux disease) Esophagitis presence: esophagitis presence not specified Qualified Code(s): K21.9 - Gastro-esophageal reflux disease without esophagitis (8) BPH (benign prostatic hyperplasia) Lower urinary tract symptom presence: symptoms absent Qualified Code(s): N40.0 - Benign prostatic hyperplasia without lower urinary tract symptoms (9) CAD (coronary artery disease) Associated angina: without angina Coronary Disease-Associated Artery/Lesion type: [place] artery [place] vs. transplanted heart: [place] heart Qualified Code(s): I25.10 - Atherosclerotic heart disease of [place] coronary artery without angina pectoris (12) Hypertension Hypertension type: essential hypertension Qualified Code(s): I10 - Essential (primary) hypertension (13) Hypothyroidism Hypothyroidism type: unspecified Qualified Code(s): E03.9 - Hypothyroidism, unspecified (14) COPD (chronic obstructive pulmonary disease) COPD type: unspecified COPD Qualified Code(s): J44.9 - Chronic obstructive pulmonary disease, unspecified
[2023-01-26] MEDS: INSULIN ASPART PER UNIT CHARGE SC SCH ×4 (08:25→21:38)
[2023-01-26] MEDS: ASPIRIN 81 MG ECTAB PO SCH (08:34)
[2023-01-26] MEDS: BUMETANIDE 1 MG TAB PO SCH ×2 (08:35→13:35)
[2023-01-26] MEDS: clonazePAM 1 MG TAB PO SCH ×2 (08:35→20:10)
[2023-01-26] MEDS: GABAPENTIN 100 MG CAP PO SCH ×2 (08:36→20:10)
[2023-01-26] MEDS: amLODIPine BESYLATE 5 MG TAB PO SCH (08:36)
[2023-01-26] MEDS: METOPROLOL TARTRATE 25 MG TAB PO SCH ×2 (08:37→20:09)
[2023-01-26] MEDS: APIXABAN 2.5 MG TAB PO SCH ×2 (08:37→20:09)
[2023-01-26] MEDS: PANTOprazole 40 MG TAB PO SCH ×2 (08:38→20:09)
[2023-01-26] MEDS: POTASSIUM CHLORIDE CRTAB 20 MEQ TABCR PO SCH (08:41)
[2023-01-26] MEDS: MICONAZOLE NITRATE 2% CR 30 GM TUBE EXT SCH ×2 (09:19→20:10)
[2023-01-26] MEDS: LANTUS PER UNIT CHARGE SQ SCH (09:20)
[2023-01-26] MEDS: UMECLIDINIUM BROMIDE 62.5MCG/BLISTER 7 PUFFS/INHALER INH SCH (09:20)
--- NOTE | 2023-01-26 13:15 | Billing Data ---
Date of Service January 26, 2023 Coding Level of Care Code 35461 SUB INP/OBS CARE MIN
--- NOTE | 2023-01-26 14:03 | Infectious Disease Progress Nt ---
Date of Service January 26, 2023 24 hours: 01/23 Blood cultures no growth near 48 hours Assessment & Plan (1) Wound of lower extremity: (2) AMS (altered mental status): (3) Bacteremia: Plan #Efaecalis bacteremia #AMS #LE wounds #CKD MICRO 01/20 Blood cultures E. faecalis, Amp sensitive 01/20 Ucx three types of organism all high counts probable skin gilma 01/22 blood culture E. faecalis 01/24 Bcx in lab 87 yo male with a past medical history of CKD, DVT, DM, HTN, pAfib on eliquis, CAD, BPH, GERD, CHF who presents to the hospital on 01/20/2023 for hypoglycemia, weakness and worsened AMS. ID consulted for Gram positive bacteremia. HPI obtained via EMR. Per , patient very weak and fell. The following day he c/o chest pain but did not want her to take him to the hospital or call EMS. He had episodes of confusion and disorientation before. On day of admit, he was found to be hypoglycemic. Notably large blisters on his legs since getting home from the hospital. She states one of the blisters got very large and popped and states that it drained pus. Recently discharged from hospital on 01/16, admitted with JUDI, dx with acute interstitial nephritis. On admission on 01/20, WBC normal, but patient found to be altered and concern for UTI. WBC normal, Cr 2.08 He was given Vancomycin and ceftriaxone. 01/20 Blood cultures E. faecalis, Amp sensitive 01/20 Ucx three types of organism all high counts probable skin gilma 01/22 E faecalis Recommend: -Blood culture likely to be negative at 48 hours -anticipate he will need 2 weeks of IV therapy from first negative blood culture through 02/07/23 Sanam Manzano MD Infectious Diseases Admission and Anticipated Discharge Date Admission Date: January 20, 2023 Subjective This patient recommendation is based on a telemedicine consult request which was completed asynchronously through chart review and information provided by the primary physician. The patient was not seen or examined today. The evaluation is consultative in nature and all patient care and treatment decisions can either be accepted or rejected by the patient's primary hospital-based treating physician using their own independent medical judgment for their patient. Time Spent Reviewing Chart: 31+ minutes Results & Data Vital Signs (Past 12 Hours) Vital Signs Temp Pulse Pulse Resp BP Pulse Ox O2 Del Method 01/26/23 11:31 36.5 C 69 20 157/79 H 97 Room Air 01/26/23 07:45 Room Air 01/26/23 08:07 70 01/26/23 07:50 36.5 C 76 18 146/62 H 95 Room Air 01/26/23 03:00 36.5 C 69 16 154/68 H 96 Room Air Laboratory Results Laboratory Results - last 48 hr 01/24/23 01/24/23 01/25/23 16:21 20:25 07:25 WBC RBC Hgb Hct MCV MCH MCHC RDW Std Deviation RDW Coeff of Adrian Plt Count MPV Sodium Potassium Chloride Carbon Dioxide Anion Gap BUN Creatinine Est Cr Clr Drug Dosing Est GFR ( Amer) Est GFR (Non-Af Amer) BUN/Creatinine Ratio Glucose POC Glucose 214 H 256 H 210 H Calcium 01/25/23 01/25/23 01/25/23 08:01 08:01 11:12 WBC 6.66 RBC 3.24 L Hgb 9.8 L Hct 30.6 L MCV 94.4 MCH 30.2 MCHC 32.0 RDW Std Deviation 51.7 H RDW Coeff of Adrian 14.8 H Plt Count 112 L D MPV 10.0 Sodium 139 Potassium 4.3 Chloride 107 Carbon Dioxide 25 Anion Gap 7 BUN 31 H Creatinine 1.84 H Est Cr Clr Drug Dosing 30.6 Est GFR ( Amer) 37.4 Est GFR (Non-Af Amer) 32.2 BUN/Creatinine Ratio 16.8 Glucose 216 H POC Glucose 283 H Calcium 8.3 L 01/25/23 01/25/23 01/26/23 16:35 20:34 06:13 WBC RBC Hgb Hct MCV MCH MCHC RDW Std Deviation RDW Coeff of Adrian Plt Count MPV Sodium 139 Potassium 3.5 Chloride 109 H Carbon Dioxide 22 Anion Gap 8 BUN 29 H Creatinine 1.80 H Est Cr Clr Drug Dosing 31.8 Est GFR ( Amer) 38.4 Est GFR (Non-Af Amer) 33.1 BUN/Creatinine Ratio 16.1 Glucose 195 H POC Glucose 132 H 216 H Calcium 7.6 L 01/26/23 01/26/23 01/26/23 06:13 07:14 11:01 WBC 5.42 RBC 2.96 L Hgb 9.0 L Hct 26.9 L MCV 90.9 MCH 30.4 MCHC 33.5 RDW Std Deviation 48.3 H RDW Coeff of Adrian 14.6 H Plt Count 116 L MPV 9.8 Sodium Potassium Chloride Carbon Dioxide Anion Gap BUN Creatinine Est Cr Clr Drug Dosing Est GFR ( Amer) Est GFR (Non-Af Amer) BUN/Creatinine Ratio Glucose POC Glucose 191 H 227 H Calcium Medications Administered Current Inpatient Medications Acetaminophen (Acetaminophen 325 Mg Tab) 650 mg PO Q4H PRN PRN Reason: Pain or Fever Stop: 02/19/23 20:28 Albuterol (Albuterol Hfa 8 Gm Inhaler) 2 puffs INH Q6H PRN PRN Reason: shortness of breath or wheezing Stop: 02/19/23 20:28 Amlodipine Besylate (Amlodipine Besylate 5 Mg Tab) 10 mg PO QAM VANDANA Stop: 02/20/23 08:59 Last Admin: 01/26/23 08:36 Dose: 10 mg Apixaban (Apixaban 2.5 Mg Tab) 2.5 mg PO Q12 VANDANA Stop: 02/19/23 20:28 Last Admin: 01/26/23 08:37 Dose: 2.5 mg Aspirin (Aspirin 81 Mg Ectab) 81 mg PO DAILY VANDANA Stop: 02/20/23 08:59 Last Admin: 01/26/23 08:34 Dose: 81 mg Bumetanide (Bumetanide 1 Mg Tab) 1 mg PO BID@0800,1400 VANDANA Stop: 02/20/23 07:59 Last Admin: 01/26/23 13:35 Dose: 1 mg Clonazepam (Clonazepam 1 Mg Tab) 1 mg PO BID VANDANA Stop: 02/24/23 20:59 Last Admin: 01/26/23 08:35 Dose: 1 mg Dextrose (Dextrose 50% 50 Ml Syringe) 25 - 50 ml IV UD PRN; Protocol PRN Reason: Hypoglycemia Protocol Stop: 02/19/23 20:44 Finasteride (Finasteride 5 Mg Tab) 5 mg PO HS VANDANA Stop: 02/19/23 20:59 Last Admin: 01/25/23 21:24 Dose: 5 mg Gabapentin (Gabapentin 100 Mg Cap) 100 mg PO QAM VANDANA Stop: 02/20/23 08:59 Last Admin: 01/26/23 08:36 Dose: 100 mg Gabapentin (Gabapentin 100 Mg Cap) 100 mg PO PM VANDANA Stop: 02/19/23 20:59 Last Admin: 01/25/23 21:23 Dose: 100 mg Glucagon (Glucagon For Inj 1 Mg Vial) 1 mg SQ UD PRN; Protocol PRN Reason: Hypoglycemia Protocol Stop: 02/19/23 20:44 Glucose (Glucose 10 Tab/Tube) 4 - 8 tab PO UD PRN; Protocol PRN Reason: Hypoglycemia Treatment Stop: 02/19/23 20:44 Glucose (Glucose 40% Gel 15 Gm Tube) 15 - 30 gm PO UD PRN; Protocol PRN Reason: Hypoglycemia Protocol Stop: 02/19/23 20:44 Ampicillin Sodium 2,000 mg/ (Sodium Chloride) 108 mls @ 200 mls/hr IV Q6 VANDANA Stop: 02/04/23 11:29 Last Infusion: 01/26/23 13:54 Dose: Infused Insulin Aspart (Insulin Aspart Per Unit Charge) 0 units SC ACHS VANDANA Stop: 02/19/23 20:59 Last Admin: 01/26/23 12:26 Dose: 4 units Insulin Glargine (Lantus Per Unit Charge) 13 units SQ QAM VANDANA Stop: 02/25/23 08:59 Last Admin: 01/26/23 09:20 Dose: 13 units Levothyroxine Sodium (Levothyroxine Sodium 88 Mcg Tablet) 88 mcg PO DAILYBB [facility] Stop: 02/20/23 06:29 Last Admin: 01/26/23 05:44 Dose: 88 mcg Metoprolol Tartrate (Metoprolol Tartrate 25 Mg Tab) 25 mg PO BID VANDANA Stop: 02/23/23 20:59 Last Admin: 01/26/23 08:37 Dose: 25 mg Miconazole Nitrate (Miconazole Nitrate 2% Cr 30 Gm Tube) 1 appln EXT BID VANDANA Stop: 02/25/23 08:59 Last Admin: 01/26/23 09:19 Dose: 1 appln Miscellaneous (Carbohydrates For Hypoglycemia ) 15 - 30 gm PO UD PRN PRN Reason: Hypoglycemia Protocol Stop: 02/19/23 20:44 Last Admin: 01/22/23 07:27 Dose: 15 gm Ondansetron HCl (Ondansetron Inj 2 Mg/Ml 2 Ml Vial) 4 mg IV Q6H PRN PRN Reason: Nausea Stop: 02/19/23 20:28 Pantoprazole Sodium (Pantoprazole 40 Mg Tab) 40 mg PO BID VANDANA Stop: 02/19/23 20:59 Last Admin: 01/26/23 08:38 Dose: 40 mg Polyethylene Glycol (Polyethylene (Miralax) 17 Gm Pack) 17 gm PO DAILY PRN PRN Reason: Constipation Stop: 02/19/23 20:28 Potassium Chloride (Potassium Chloride Crtab 20 Meq Tabcr) 20 meq PO QAM VANDANA Stop: 02/20/23 08:59 Last Admin: 01/26/23 08:41 Dose: 20 meq Rosuvastatin Calcium (Rosuvastatin Calcium 20 Mg Tab) 20 mg PO HS VANDANA Stop: 02/19/23 20:59 Last Admin: 01/25/23 21:24 Dose: 20 mg Tamsulosin HCl (Tamsulosin Hcl 0.4 Mg Cap) 0.8 mg PO HS [facility] Stop: 02/19/23 20:59 Last Admin: 01/25/23 21:23 Dose: 0.8 mg Umeclidinium [place] (Umeclidinium [place] 62.5mcg/Blister 7 Puffs/Inhaler) 1 puffs INH DAILY VANDANA Stop: 02/20/23 08:59 Last Admin: 01/26/23 09:20 Dose: 1 puffs
[2023-01-26] MEDS: ROSUVASTATIN CALCIUM 20 MG TAB PO SCH (20:09)
[2023-01-26] MEDS: TAMSULOSIN HCL 0.4 MG CAP PO SCH (20:09)
[2023-01-26] MEDS: FINASTERIDE 5 MG TAB PO SCH (20:10)
[2023-01-27] MEDS: AMPICILLIN 2,000 MG in 0.9 % SODIUM CHLORIDE 100 ML IV SCH ×4 (01:13→17:33)
[2023-01-27] MEDS: LEVOTHYROXINE SODIUM 88 MCG TABLET PO SCH (05:48)
--- NOTE | 2023-01-27 07:13 | Hospitalist Progress Note ---
Date of Service January 27, 2023 Assessment & Plan (1) AMS (altered mental status): Plan: Chang is a 87 y/o male with a past medical history of CKD Stage 4 (previous admission with JUDI requiring temporary dialysis), hx DVT, DMT2 on insulin, HTN, hypothyroidism, paroxysmal a fib on Eliquis, CAD, BPH, GERD, CHF who presented with symptomatic hypoglycemia, weakness, and worsened AMS found to have gram positive bacteremia and sepsis. #Gram Positive Bacteremia - likely E. faecalis #Sepsis #AMS Patient met SIRs criteria with tachypnea and hypothermia. 2/2 blood cultures positive for gram positive cocci in chains; likely enterococcus. Site of infection is likely via the urinary tract as patient has Lopez in place, although urine culture is negative. Patient with wounds on bilateral legs and the buttock which could also be sites of inoculation. Abx: Vanc and CTX x1 01/20 Ampicillin IV: start date: 01/21, end date: 02/21 repeat blood cultures drawn 01/22 positive for Enterococcus. Repeat 01/24 without growth. wound nurse consult ID consulted TTE without vegetation, discussed GLO and pt declines. Given that we do not definitive imaging as to whether or not endocarditis is present, tentative plan for 4 weeks IV antibiotics with repeat TTE after 2 weeks. Repeat blood cultures 2-3 days after stopping antibiotics. Will need US guided IV prior to d/c. # Goals of Care discussed frequent hospitalizations and desire to try and avoid future. Difficult because he has had good quality of life between stays and good recover from acute illnesses. Palliative care consult-> will plan to see as an OP #Indwelling Lopez Catheter Patient had Lopez placed on prior admission as there was initial concern for post-renal kidney injury. Unclear exactly when it was placed. First mentioned in urology note from 01/04. Lopez was to be removed after an outpatient voiding trial on 01/11, but due to extended hospitalization patient missed his Urology appointment and the Lopez remained in place. Patient with likely line associated bacteremia as Lopez has been in place for >10 days. - removed 01/22 and is urinated on his own #Hypoglycemia Patient presented with hypoglycemic (30s) likely in the setting of supratherapeutic Lantus dosing and sepsis. Patient with poor appetite and decreased PO intake. Insulin dosing home regimen of 30 units of Lantus BID and 18 units with meals (2-3x daily). Patient was on steroids during his last admission which played a role in his hyperglycemia and insulin requirement at that time. Patient 26 units of insulin in the last 24 hours. Lantus 13 units QAM Continue with carb ratio and correction factor #Paroxysmal a fib Was on Eliquis for DVT treatment, given elevated risk of clotting eliquis was resumed patient received left atrial appendage ligation and pulmonary vein isolation in 2013 Metoprolol was held as patient bradycardic. Resumed as patient is no longer bradycardic. #Leg wounds Chronic. Likely in the setting of chronic venous stasis changes and skin breakdown. Will need f/u for wound management. #Thrombocytopenia Likely from infectious process. Has slowly been improving. No thrombocytopenia noted on previous admissions. No signs of acute bleeding or consumptive process. Continue to monitor. #COPD Not on home O2. Continue home albuterol inhaler PRN and scheduled fluticasone propionate-salmeterol. Patient saturating well on RA. Goal SpO2 88-92%. #CKD stage 4 #AIN Previous admission had JUDI requiring temporary dialysis, no longer on dialysis. Cr improving. Avoid nephrotoxic agents. Strict Is and Os #HTN BPs low initially in ED, now normotensive. Continue home meds - amlodipine and metoprolol #HFpEF Last echo (10/2022): EF 60-65%. CXR with cardiomegaly, mild pulmonary edema, small pleural effusions. Continue home Bumex. Monitor oxygen requirement. #Anxiety Home dosing of clonazepam is 1 mg BID. Held due to lethargy on admission. Mental status has improved. Will restart at 1 mg BID. VTE: resume eliquis Code: DNR/DNI FENGI: Carb Consistent Dispo PT/OT for weakness (2) Acute UTI (urinary tract infection): (3) Anemia of chronic disease: (4) Anxiety: (5) Chronic kidney disease, stage 4 (severe): (6) CHF (congestive heart failure): (7) GERD (gastroesophageal reflux disease): (8) BPH (benign prostatic hyperplasia): (9) CAD (coronary artery disease): (10) Paroxysmal atrial fibrillation: (11) Dyslipidemia: (12) Hypertension: (13) Hypothyroidism: (14) COPD (chronic obstructive pulmonary disease): (15) Benign prostatic hyperplasia with urinary obstruction: (16) Peripheral vascular disease: (17) Wound of lower extremity: (18) Hypoglycemia due to insulin: (19) Thrombocytopenia: (20) Acidosis: Admission and Anticipated Discharge Date Admission Date: January 20, 2023 Supervising Physician Co-Signing Physician Notes I personally examined the patient and verified all aguayo points of history and exam, discussed case, and agree with decision making with Dr Christian mostly upset about the view in his new room. no other new complaints. Vitals noted, in general he is awake and alert pleasant no distress. HEENT normocephalic atraumatic mucous membranes moist. Breathing unlabored no accessory muscle use good effort. Skin shows no rashes no pallor or icterus. Recurrent Enterococcus bacteremialast had same in october. appears persistent this time - ID consult appreciated, transthoracic echo without vegetation, but not an extremely reassuring picture as valves were not well visualized, repeat repeat cultures are NGTD, in light of not wanting GLO - follow cautiously as we follow with treatment goals of care -ongoing discussions, particularly as it relates to his big picture expression of goals and ideals versus his daily decision making, right now it certainly seems rational for him to want to continue to have acute illnesses treated given that he bounces back each time, and yet at the same time he continues to express a big picture sentiments of almost consistent with comfort measures onlywhich once we get into more granular decision making is absolutely not the caseasked him and his to discuss these types of issues more in detail. for now working towards flint care Subjective Pt seen at bedside this morning. Doing well. Does note some pain in shins B/L, has been improving slowly. Review of Systems Review of Systems: As per above Physical Exam Physical Exam: Constitutional: well-appearing, no acute distress HEENT: NCAT, no conjunctival injection CV: well-perfused Resp: no increased work of breathing GI: nondistended MSK: no gross deformities appreciated Skin: warm, dry, no rash appreciated Neuro: alert, oriented, no focal neurologic deficit appreciated Results & Data Results & Data Vital Signs (Past 12 Hours) Vital Signs Temp Pulse Pulse Resp BP BP Pulse Ox 01/26/23 22:01 61 01/27/23 02:31 36.5 C 96 H 16 113/55 L 92 01/26/23 22:16 36.6 C 65 18 105/51 L 93 01/26/23 19:54 74 01/26/23 19:55 36.5 C 72 18 154/66 H 95 O2 Del Method 01/26/23 22:01 01/27/23 02:31 Room Air 01/26/23 22:16 Room Air 01/26/23 19:54 01/26/23 19:55 Room Air Resident Activity Tracking Resident Involvement: Resident Care Provided Care Provided: Adult Hospital Medicine (6) CHF (congestive heart failure) Heart failure chronicity: unspecified Heart failure type: unspecified Qualified Code(s): I50.9 - Heart failure, unspecified (7) GERD (gastroesophageal reflux disease) Esophagitis presence: esophagitis presence not specified Qualified Code(s): K21.9 - Gastro-esophageal reflux disease without esophagitis (8) BPH (benign prostatic hyperplasia) Lower urinary tract symptom presence: symptoms absent Qualified Code(s): N 40.0 - Benign prostatic hyperplasia without lower urinary tract symptoms (9) CAD (coronary artery disease) Associated angina: without angina Coronary Disease-Associated Artery/Lesion type: [place] artery [place] vs. transplanted heart: [place] heart Qualified Code(s): I25.10 - Atherosclerotic heart disease of [place] coronary artery without angina pectoris (12) Hypertension Hypertension type: essential hypertension Qualified Code(s): I10 - Essential (primary) hypertension (13) Hypothyroidism Hypothyroidism type: unspecified Qualified Code(s): E03.9 - Hypothyroidism, unspecified (14) COPD (chronic obstructive pulmonary disease) COPD type: unspecified COPD Qualified Code(s): J44.9 - Chronic obstructive pulmonary disease, unspecified
[2023-01-27 07:39] LABS: Hematocrit (blood only) 27.3 % (42.0-52.0); Red Blood Count 2.95 M/uL (4.70-6.10); White Blood Count 5.43 K/ul (4.8-10.8)
[2023-01-27 07:40] LABS: Mean Corpuscular Hemoglobin 30.5 pg (25.0-34.0); Mean Corpuscular Volume 92.5 fL (80.0-100.0); Mean Platelet Volume 9.6 fL (9.4-12.4); Platelet Count 137 K/uL (130-400); RDW Coefficient of Variation 14.6 % (11.5-14.5); RDW Standard Deviation 49.2 fL (36.4-46.3)
[2023-01-27 07:55] LABS: BUN Creatinine Ratio 14.5 (10-20); Calcium 7.8 mg/dl (8.6-10.3); Creatinine Clr Calc Pharmacy 33.2 ml/min; Est GFR (African American) 40.3 ml/min; Est GFR (Non-African American) 34.7 ml/min; Potassium 3.6 mmol/L (3.5-5.1)
[2023-01-27] MEDS: UMECLIDINIUM BROMIDE 62.5MCG/BLISTER 7 PUFFS/INHALER INH SCH (08:14)
[2023-01-27] MEDS: GABAPENTIN 100 MG CAP PO SCH ×2 (08:15→21:38)
[2023-01-27] MEDS: BUMETANIDE 1 MG TAB PO SCH ×2 (08:15→14:11)
[2023-01-27] MEDS: PANTOprazole 40 MG TAB PO SCH ×2 (08:15→21:37)
[2023-01-27] MEDS: APIXABAN 2.5 MG TAB PO SCH ×2 (08:15→21:38)
[2023-01-27] MEDS: METOPROLOL TARTRATE 25 MG TAB PO SCH ×2 (08:15→21:38)
[2023-01-27] MEDS: clonazePAM 1 MG TAB PO SCH ×2 (08:15→21:37)
[2023-01-27] MEDS: POTASSIUM CHLORIDE CRTAB 20 MEQ TABCR PO SCH (08:15)
[2023-01-27] MEDS: ASPIRIN 81 MG ECTAB PO SCH (08:15)
[2023-01-27] MEDS: amLODIPine BESYLATE 5 MG TAB PO SCH (08:16)
[2023-01-27] MEDS: MICONAZOLE NITRATE 2% CR 30 GM TUBE EXT SCH ×2 (08:16→21:39)
[2023-01-27] MEDS: LANTUS PER UNIT CHARGE SQ SCH (09:11)
[2023-01-27] MEDS: INSULIN ASPART PER UNIT CHARGE SC SCH ×4 (09:11→21:37)
--- NOTE | 2023-01-27 17:27 | Billing Data ---
Date of Service January 27, 2023 Coding Level of Care Code 15637 SUB INP/OBS CARE
--- NOTE | 2023-01-27 17:46 | Infectious Disease Progress Nt ---
Date of Service January 27, 2023 Assessment & Plan (1) Wound of lower extremity: (2) AMS (altered mental status): (3) Bacteremia: Plan #Efaecalis bacteremia #AMS #LE wounds #CKD MICRO 01/20 Blood cultures E. faecalis, Amp sensitive 01/20 Ucx three types of organism all high counts probable skin gilma 01/22 blood culture E. faecalis Amp sensitive 01/24 Bcx no growth to date 87 yo male with a past medical history of CKD, DVT, DM, HTN, pAfib on eliquis, CAD, BPH, GERD, CHF who presents to the hospital on 01/20/2023 for hypoglycemia, weakness and worsened AMS. ID consulted for Gram positive bacteremia. HPI obtained via EMR. Per , patient very weak and fell. The following day he c/o chest pain but did not want her to take him to the hospital or call EMS. He had episodes of confusion and disorientation before. On day of admit, he was found to be hypoglycemic. Notably large blisters on his legs since getting home from the hospital. She states one of the blisters got very large and popped and states that it drained pus. Recently discharged from hospital on 01/16, admitted with JUDI, dx with acute interstitial nephritis. On admission on 01/20, WBC normal, but patient found to be altered and concern for UTI. WBC normal, Cr 2.08 He was given Vancomycin and ceftriaxone. 01/20 Blood cultures E. faecalis, Amp sensitive 01/20 Ucx three types of organism all high counts probable skin gilma 2DE negative Recommend: -Can place midline -Recommend he receive 2 weeks of IV antibiotics from first negative culture through 02/07/23 -ID will s/o please call with any questions or concerns Sanam Manzano MD Infectious Diseases Admission and Anticipated Discharge Date Admission Date: January 20, 2023 Subjective This patient recommendation is based on a telemedicine consult request which was completed asynchronously through chart review and information provided by the primary physician. The patient was not seen or examined today. The evaluation is consultative in nature and all patient care and treatment decisions can either be accepted or rejected by the patient's primary hospital-based treating physician using their own independent medical judgment for their patient. Time Spent Reviewing Chart: 21 - 30 minutes Results & Data Vital Signs (Past 12 Hours) Vital Signs Temp Pulse Pulse Resp BP Pulse Ox O2 Del Method 01/27/23 14:00 60 01/27/23 15:35 36.7 C 66 20 136/64 95 Room Air 01/27/23 14:34 36.9 C 64 19 117/58 L 96 Room Air 01/27/23 13:00 74 01/27/23 11:32 36.6 C 66 16 125/61 95 Room Air 01/27/23 07:45 36.7 C 72 16 142/68 H 94 Room Air Laboratory Results Laboratory Results - last 48 hr 01/25/23 01/26/23 01/26/23 20:34 06:13 06:13 WBC 5.42 RBC 2.96 L Hgb 9.0 L Hct 26.9 L MCV 90.9 MCH 30.4 MCHC 33.5 RDW Std Deviation 48.3 H RDW Coeff of Adrian 14.6 H Plt Count 116 L MPV 9.8 Sodium 139 Potassium 3.5 Chloride 109 H Carbon Dioxide 22 Anion Gap 8 BUN 29 H Creatinine 1.80 H Est Cr Clr Drug Dosing 31.8 Est GFR ( Amer) 38.4 Est GFR (Non-Af Amer) 33.1 BUN/Creatinine Ratio 16.1 Glucose 195 H POC Glucose 216 H Calcium 7.6 L 01/26/23 01/26/23 01/26/23 07:14 11:01 16:27 WBC RBC Hgb Hct MCV MCH MCHC RDW Std Deviation RDW Coeff of Adrian Plt Count MPV Sodium Potassium Chloride Carbon Dioxide Anion Gap BUN Creatinine Est Cr Clr Drug Dosing Est GFR ( Amer) Est GFR (Non-Af Amer) BUN/Creatinine Ratio Glucose POC Glucose 191 H 227 H 184 H Calcium 01/26/23 01/27/23 01/27/23 20:44 07:08 07:08 WBC 5.43 RBC 2.95 L Hgb 9.0 L Hct 27.3 L MCV 92.5 MCH 30.5 MCHC 33.0 RDW Std Deviation 49.2 H RDW Coeff of Adrian 14.6 H Plt Count 137 MPV 9.6 Sodium 140 Potassium 3.6 Chloride 109 H Carbon Dioxide 24 Anion Gap 7 BUN 25 H Creatinine 1.73 H Est Cr Clr Drug Dosing 33.2 Est GFR ( Amer) 40.3 Est GFR (Non-Af Amer) 34.7 BUN/Creatinine Ratio 14.5 Glucose 125 H POC Glucose 200 H Calcium 7.8 L 09/01/23 09/01/23 09/01/23 08:08 11:50 15:33 WBC RBC Hgb Hct MCV MCH MCHC RDW Std Deviation RDW Coeff of Adrian Plt Count MPV Sodium Potassium Chloride Carbon Dioxide Anion Gap BUN Creatinine Est Cr Clr Drug Dosing Est GFR ( Amer) Est GFR (Non-Af Amer) BUN/Creatinine Ratio Glucose POC Glucose 122 H 185 H 225 H Calcium Microbiology 01/22/23 09:56 Blood Aerobic Blood Culture - Preliminary Enterococcus faecalis 01/22/23 09:56 Blood Anaerobic Blood Culture - Final No growth in Anaerobic bottle after 5 days. 01/22/23 10:08 Blood Aerobic Blood Culture - Preliminary Enterococcus faecalis 01/22/23 10:08 Blood Anaerobic Blood Culture - Final No growth in Anaerobic bottle after 5 days. 01/24/23 09:23 Blood Aerobic Blood Culture - Preliminary No growth in Aerobic bottle after 48 hours. 01/24/23 09:23 Blood Anaerobic Blood Culture - Preliminary No growth in Anaerobic bottle after 48 hours. 01/24/23 09:12 Blood Aerobic Blood Culture - Preliminary No growth in Aerobic bottle after 48 hours. 01/24/23 09:12 Blood Anaerobic Blood Culture - Preliminary No growth in Anaerobic bottle after 48 hours. 01/20/23 14:50 Blood Aerobic Blood Culture - Final Enterococcus faecalis 01/20/23 14:50 Blood Anaerobic Blood Culture - Final Enterococcus faecalis 01/20/23 15:25 Blood Aerobic Blood Culture - Final Enterococcus faecalis 01/20/23 15:25 Blood Anaerobic Blood Culture - Final Enterococcus faecalis 01/20/23 16:44 Urine,Straight Cath Urine Culture - Final Three types of organisms present, all high counts probable skin gilma. No further identifications or sensitivities to follow. Medications Administered Current Inpatient Medications Acetaminophen (Acetaminophen 325 Mg Tab) 650 mg PO Q4H PRN PRN Reason: Pain or Fever Stop: 02/19/23 20:28 Albuterol (Albuterol Hfa 8 Gm Inhaler) 2 puffs INH Q6H PRN PRN Reason: shortness of breath or wheezing Stop: 02/19/23 20:28 Amlodipine Besylate (Amlodipine Besylate 5 Mg Tab) 10 mg PO QAM [facility] Stop: 02/20/23 08:59 Last Admin: 01/27/23 08:16 Dose: 10 mg Apixaban (Apixaban 2.5 Mg Tab) 2.5 mg PO Q12 [facility]ANDANA Stop: 02/19/23 20:28 Last Admin: 01/27/23 08:15 Dose: 2.5 mg Aspirin (Aspirin 81 Mg Ectab) 81 mg PO DAILY VANDANA Stop: 02/20/23 08:59 Last Admin: 01/27/23 08:15 Dose: 81 mg Bumetanide (Bumetanide 1 Mg Tab) 1 mg PO BID@0800,1400 [facility]NA Stop: 02/20/23 07:59 Last Admin: 01/27/23 14:11 Dose: 1 mg Clonazepam (Clonazepam 1 Mg Tab) 1 mg PO BID [facility]AN[facility]NA Stop: 02/24/23 20:59 Last Admin: 01/27/23 08:15 Dose: 1 mg Dextrose (Dextrose 50% 50 Ml Syringe) 25 - 50 ml IV UD PRN; Protocol PRN Reason: Hypoglycemia Protocol Stop: 02/19/23 20:44 Finasteride (Finasteride 5 Mg Tab) 5 mg PO HS VANDANA Stop: 02/19/23 20:59 Last Admin: 01/26/23 20:10 Dose: 5 mg Gabapentin (Gabapentin 100 Mg Cap) 100 mg PO QAM [facility]ANDANA Stop: 02/20/23 08:59 Last Admin: 01/27/23 08:15 Dose: 100 mg Gabapentin (Gabapentin 100 Mg Cap) 100 mg PO PM [facility]ANDANA Stop: 02/19/23 20:59 Last Admin: 01/26/23 20:10 Dose: 100 mg Glucagon (Glucagon For Inj 1 Mg Vial) 1 mg SQ UD PRN; Protocol PRN Reason: Hypoglycemia Protocol Stop: 02/19/23 20:44 Glucose (Glucose 10 Tab/Tube) 4 - 8 tab PO UD PRN; Protocol PRN Reason: Hypoglycemia Treatment Stop: 02/19/23 20:44 Glucose (Glucose 40% Gel 15 Gm Tube) 15 - 30 gm PO UD PRN; Protocol PRN Reason: Hypoglycemia Protocol Stop: 02/19/23 20:44 Ampicillin Sodium 2,000 mg/ (Sodium Chloride) 108 mls @ 200 mls/hr IV Q6 [facility]ANDANA Stop: 02/04/23 11:29 Last Admin: 01/27/23 17:33 Dose: 200 mls/hr Insulin Aspart (Insulin Aspart Per Unit Charge) 0 units SC ACHS VANDANA Stop: 02/19/23 20:59 Last Admin: 01/27/23 13:21 Dose: 3 units Insulin Glargine (Lantus Per Unit Charge) 13 units SQ QAM [facility] Stop: 02/25/23 08:59 Last Admin: 01/27/23 09:11 Dose: 13 units Levothyroxine Sodium (Levothyroxine Sodium 88 Mcg Tablet) 88 mcg PO DAILYBB [facility]ANDANA Stop: 02/20/23 06:29 Last Admin: 01/27/23 05:48 Dose: 88 mcg Metoprolol Tartrate (Metoprolol Tartrate 25 Mg Tab) 25 mg PO BID [facility] Stop: 02/23/23 20:59 Last Admin: 01/27/23 08:15 Dose: 25 mg Miconazole Nitrate (Miconazole Nitrate 2% Cr 30 Gm Tube) 1 appln EXT BID [facility] Stop: 02/25/23 08:59 Last Admin: 01/27/23 08:16 Dose: 1 appln Miscellaneous (Carbohydrates For Hypoglycemia ) 15 - 30 gm PO UD PRN PRN Reason: Hypoglycemia Protocol Stop: 02/19/23 20:44 Last Admin: 01/22/23 07:27 Dose: 15 gm Ondansetron HCl (Ondansetron Inj 2 Mg/Ml 2 Ml Vial) 4 mg IV Q6H PRN PRN Reason: Nausea Stop: 02/19/23 20:28 Pantoprazole Sodium (Pantoprazole 40 Mg Tab) 40 mg PO BID [facility]DANA Stop: 02/19/23 20:59 Last Admin: 01/27/23 08:15 Dose: 40 mg Polyethylene Glycol (Polyethylene (Miralax) 17 Gm Pack) 17 gm PO DAILY PRN PRN Reason: Constipation Stop: 02/19/23 20:28 Potassium Chloride (Potassium Chloride Crtab 20 Meq Tabcr) 20 meq PO QAM [facility] Stop: 02/20/23 08:59 Last Admin: 01/27/23 08:15 Dose: 20 meq Rosuvastatin Calcium (Rosuvastatin Calcium 20 Mg Tab) 20 mg PO HS [facility] Stop: 02/19/23 20:59 Last Admin: 01/26/23 20:09 Dose: 20 mg Tamsulosin HCl (Tamsulosin Hcl 0.4 Mg Cap) 0.8 mg PO HS [facility] Stop: 02/19/23 20:59 Last Admin: 01/26/23 20:09 Dose: 0.8 mg Umeclidinium [place] (Umeclidinium [place] 62.5mcg/Blister 7 Puffs/Inhaler) 1 puffs INH DAILY [facility] Stop: 02/20/23 08:59 Last Admin: 01/27/23 08:14 Dose: 1 puffs
[2023-01-27] MEDS: TAMSULOSIN HCL 0.4 MG CAP PO SCH (21:37)
[2023-01-27] MEDS: ROSUVASTATIN CALCIUM 20 MG TAB PO SCH (21:37)
[2023-01-27] MEDS: FINASTERIDE 5 MG TAB PO SCH (21:38)
[2023-01-28] MEDS: AMPICILLIN 2,000 MG in 0.9 % SODIUM CHLORIDE 100 ML IV SCH ×4 (00:26→18:07)
[2023-01-28] MEDS ORDERED: HYDROmorphone INJ 0.5 MG/0.5 ML SYR IV ONE (00:54)
[2023-01-28] MEDS: LEVOTHYROXINE SODIUM 88 MCG TABLET PO SCH (05:26)
--- NOTE | 2023-01-28 07:12 | Hospitalist Progress Note ---
Date of Service January 28, 2023 Assessment & Plan (1) AMS (altered mental status): Plan: Chang is a 87 y/o male with a past medical history of CKD Stage 4 (previous admission with JUDI requiring temporary dialysis), hx DVT, DMT2 on insulin, HTN, hypothyroidism, paroxysmal a fib on Eliquis, CAD, BPH, GERD, CHF who presented with symptomatic hypoglycemia, weakness, and worsened AMS found to have gram positive bacteremia and sepsis. #Gram Positive Bacteremia - likely E. faecalis #Sepsis #AMS Patient met SIRs criteria with tachypnea and hypothermia. 2/2 blood cultures positive for gram positive cocci in chains; likely enterococcus. Site of infection is likely via the urinary tract as patient has Lopez in place, although urine culture is negative. Patient with wounds on bilateral legs and the buttock which could also be sites of inoculation. Abx: Vanc and CTX x1 01/20 Ampicillin IV: start date: 01/21, end date: 02/21 Repeat blood cultures drawn 01/22 positive for Enterococcus. Repeat 01/24 without growth. Wound nurse consulted ID consulted TTE without vegetation, discussed GLO and pt declines. Given that we do not definitive imaging as to whether or not endocarditis is present, tentative plan for 4 weeks IV antibiotics with repeat TTE after 2 weeks. Repeat blood cultures 2-3 days after stopping antibiotics. Will need US guided IV prior to d/c. # Goals of Care discussed frequent hospitalizations and desire to try and avoid future. Difficult because he has had good quality of life between stays and good recover from acute illnesses. Palliative care consult-> will plan to see as an OP #Indwelling Lopez Catheter Patient had Lopez placed on prior admission as there was initial concern for post-renal kidney injury. Unclear exactly when it was placed. First mentioned in urology note from 01/04. Lopez was to be removed after an outpatient voiding trial on 01/11, but due to extended hospitalization patient missed his Urology appointment and the Lopez remained in place. Patient with likely line associated bacteremia as Lopez has been in place for >10 days. - removed 01/22 and is urinating on his own #Hypoglycemia Patient presented with hypoglycemic (30s) likely in the setting of supratherapeutic Lantus dosing and sepsis. Patient with poor appetite and decreased PO intake. Insulin dosing home regimen of 30 units of Lantus BID and 18 units with meals (2-3x daily). Patient was on steroids during his last admission which played a role in his hyperglycemia and insulin requirement at that time. Lantus 13 units QAM Continue with carb ratio and correction factor #Paroxysmal a fib Was on Eliquis for DVT treatment, given elevated risk of clotting eliquis was resumed patient received left atrial appendage ligation and pulmonary vein isolation in 2013 Metoprolol was held as patient bradycardic. Resumed as patient is no longer bradycardic. #Leg wounds Chronic. Likely in the setting of chronic venous stasis changes and skin breakdown. Will need f/u for wound management. -Leg bandages changed yesterday, patient experienced significant pain with last bandage change so added IV Dilaudid 0.25 to be given prior to dressing change #Thrombocytopenia Likely from infectious process. Has slowly been improving. No thrombocytopenia noted on previous admissions. No signs of acute bleeding or consumptive process. Continue to monitor. #COPD Not on home O2. Continue home albuterol inhaler PRN and scheduled fluticasone propionate-salmeterol. Patient saturating well on RA. Goal SpO2 88-92%. #CKD stage 4 #AIN Previous admission had JUDI requiring temporary dialysis, no longer on dialysis. Cr improving. Avoid nephrotoxic agents. Strict Is and Os -Cr today (01/28) of 1.79 #HTN BPs low initially in ED, now normotensive. Continue home meds - amlodipine and metoprolol #HFpEF Last echo (10/2022): EF 60-65%. CXR with cardiomegaly, mild pulmonary edema, small pleural effusions. Continue home Bumex. Monitor oxygen requirement. -Currently on room air #Anxiety Home dosing of clonazepam is 1 mg BID. Held due to lethargy on admission. Mental status has improved. Will restart at 1 mg BID. VTE: Eliquis Code: DNR/DNI FENGI: Carb Consistent Dispo PT/OT for weakness (2) Acute UTI (urinary tract infection): (3) Anemia of chronic disease: (4) Anxiety: (5) Chronic kidney disease, stage 4 (severe): (6) CHF (congestive heart failure): (7) GERD (gastroesophageal reflux disease): (8) BPH (benign prostatic hyperplasia): (9) CAD (coronary artery disease): (10) Paroxysmal atrial fibrillation: (11) Dyslipidemia: (12) Hypertension: (13) Hypothyroidism: (14) COPD (chronic obstructive pulmonary disease): (15) Benign prostatic hyperplasia with urinary obstruction: (16) Peripheral vascular disease: (17) Wound of lower extremity: (18) Hypoglycemia due to insulin: (19) Thrombocytopenia: (20) Acidosis: Admission and Anticipated Discharge Date Admission Date: January 20, 2023 Supervising Physician Co-Signing Physician Notes I personally examined the patient and verified all [place] points of history and exam, discussed case, and agree with decision making with Dr Christian Feeling okay, waiting on placement. No complaints.. Vitals noted, in general he is awake and alert pleasant no distress. HEENT normocephalic atraumatic mucous membranes moist. Breathing unlabored no accessory muscle use good effort. Skin shows no rashes no pallor or icterus. Recurrent Enterococcus bacteremialast had same in october. appears persistent this time - ID consult appreciated, transthoracic echo without vegetation, but not an extremely reassuring picture as valves were not well visualized, repeat repeat cultures are NGTD, in light of not wanting GLO - follow cautiously as we follow with treatment, Continue ampicillin metabolic encephalopathy present on admission - likely largely sugar mediated, treated and resolved. goals of care -ongoing discussions, particularly as it relates to his big picture expression of goals and ideals versus his daily decision making, right now it certainly seems rational for him to want to continue to have acute illnesses treated given that he bounces back each time, and yet at the same time he continues to express a big picture sentiments of almost consistent with comfort measures onlywhich once we get into more granular decision making is absolutely not the caseasked him and his to discuss these types of issues more in detail. for now working towards [place] care Subjective Patient seen and examined at bedside. Did note to have some betts pain overnight, pain was worst during bandage changes yesterday. He has been eating and drinking as well as urinating without issue. He denies any chest pain or shortness of breath. Review of Systems Review of Systems: As per above Physical Exam Eyes: + anicteric sclerae; no conjunctival abnormality ENMT: Ears: no external ear abnormality Nose: no external nose abnormality Moist mucous membranes Respiratory: normal respiratory effort; does not use accessory muscles Cardiovascular: Rate/Rhythm: regular rate and regular rhythm Heart Sounds: + murmur +Lower extremity edema bilaterally Gastrointestinal (Abdomen): Abdomen soft, nontender and nondistended. Skin: Wounds at bilateral anterior lower extremities, covered with bandages. Pain with palpation of lower extremities. Psychiatric: A+Ox3, euthymic affect Results & Data Results & Data Vital Signs (Past 12 Hours) Vital Signs Temp Pulse Pulse Resp BP BP Pulse Ox 01/28/23 02:45 36.8 C 69 16 109/63 93 01/28/23 01:29 01/28/23 00:45 61 01/27/23 23:08 36.8 C 67 16 121/76 97 01/27/23 19:30 36.8 C 72 18 146/68 H 98 O2 Del Method 01/28/23 02:45 Room Air 01/28/23 01:29 Room Air 01/28/23 00:45 01/27/23 23:08 Room Air 01/27/23 19:30 Room Air Resident Activity Tracking Resident Involvement: Resident Care Provided Care Provided: Adult Hospital Medicine (6) CHF (congestive heart failure) Heart failure chronicity: unspecified Heart failure type: unspecified Qualified Code(s): I50.9 - Heart failure, unspecified (7) GERD (gastroesophageal reflux disease) Esophagitis presence: esophagitis presence not specified Qualified Code(s): K21.9 - Gastro-esophageal reflux disease without esophagitis (8) BPH (benign prostatic hyperplasia) Lower urinary tract symptom presence: symptoms absent Qualified Code(s): N40.0 - Benign prostatic hyperplasia without lower urinary tract symptoms (9) CAD (coronary artery disease) Associated angina: without angina Coronary Disease-Associated Artery/Lesion type: [place] artery [place] vs. transplanted heart: [place] heart Qualified Code(s): I25.10 - Atherosclerotic heart disease of [place] coronary artery without angina pectoris (12) Hypertension Hypertension type: essential hypertension Qualified Code(s): I10 - Essential (primary) hypertension (13) Hypothyroidism Hypothyroidism type: unspecified Qualified Code(s): E03.9 - Hypothyroidism, unspecified (14) COPD (chronic obstructive pulmonary disease) COPD type: unspecified COPD Qualified Code(s): J44.9 - Chronic obstructive pulmonary disease, unspecified
[2023-01-28 07:35] LABS: Hematocrit (blood only) 26.5 % (42.0-52.0); Hemoglobin 8.9 g/dl (14.0-18.0); Mean Corpuscular Hemoglobin 30.6 pg (25.0-34.0); Mean Corpuscular Hgb Conc 33.6 g/dL (32.0-36.0); Mean Corpuscular Volume 91.1 fL (80.0-100.0); Mean Platelet Volume 9.8 fL (9.4-12.4); Platelet Count 151 K/uL (130-400); RDW Coefficient of Variation 14.5 % (11.5-14.5); RDW Standard Deviation 48.1 fL (36.4-46.3); Red Blood Count 2.91 M/uL (4.70-6.10); White Blood Count 4.72 K/ul (4.8-10.8)
[2023-01-28] MEDS: BUMETANIDE 1 MG TAB PO SCH ×2 (07:43→13:53)
[2023-01-28 08:16] LABS: Calcium 7.6 mg/dl (8.6-10.3); Potassium 3.4 mmol/L (3.5-5.1)
[2023-01-28 08:22] LABS: BUN Creatinine Ratio 11.7 (10-20); Creatinine Clr Calc Pharmacy 31.9 ml/min; Est GFR (African American) 38.6 ml/min; Est GFR (Non-African American) 33.3 ml/min
[2023-01-28] MEDS: METOPROLOL TARTRATE 25 MG TAB PO SCH ×2 (08:25→20:34)
[2023-01-28] MEDS: GABAPENTIN 100 MG CAP PO SCH ×2 (08:25→20:33)
[2023-01-28] MEDS: APIXABAN 2.5 MG TAB PO SCH ×2 (08:25→20:33)
[2023-01-28] MEDS: ASPIRIN 81 MG ECTAB PO SCH (08:25)
[2023-01-28] MEDS: amLODIPine BESYLATE 5 MG TAB PO SCH (08:25)
[2023-01-28] MEDS: PANTOprazole 40 MG TAB PO SCH ×2 (08:26→20:35)
[2023-01-28] MEDS: UMECLIDINIUM BROMIDE 62.5MCG/BLISTER 7 PUFFS/INHALER INH SCH (08:26)
[2023-01-28] MEDS: clonazePAM 1 MG TAB PO SCH ×2 (08:30→20:33)
[2023-01-28] MEDS: INSULIN ASPART PER UNIT CHARGE SC SCH ×4 (09:10→20:34)
[2023-01-28] MEDS: LANTUS PER UNIT CHARGE SQ SCH (09:11)
[2023-01-28] MEDS: MICONAZOLE NITRATE 2% CR 30 GM TUBE EXT SCH ×2 (09:13→20:31)
[2023-01-28] MEDS: POTASSIUM CHLORIDE CRTAB 20 MEQ TABCR PO SCH (09:14)
[2023-01-28] MEDS: HYDROmorphone INJ 0.5 MG/0.5 ML SYR IV PRN (16:16)
[2023-01-28] MEDS ORDERED: POTASSIUM CHLORIDE CRTAB 20 MEQ TABCR PO STA (16:25)
--- NOTE | 2023-01-28 18:33 | Billing Data ---
Date of Service January 28, 2023 Coding Level of Care Code 24452 SUB INP/OBS CARE
[2023-01-28] MEDS: FINASTERIDE 5 MG TAB PO SCH (20:33)
[2023-01-28] MEDS: TAMSULOSIN HCL 0.4 MG CAP PO SCH (20:35)
[2023-01-28] MEDS: ROSUVASTATIN CALCIUM 20 MG TAB PO SCH (20:35)
[2023-01-29] MEDS: ACETAMINOPHEN 325 MG TAB PO PRN ×2 (00:25→20:45)
[2023-01-29] MEDS: AMPICILLIN 2,000 MG in 0.9 % SODIUM CHLORIDE 100 ML IV SCH ×4 (00:25→18:19)
[2023-01-29] MEDS: LEVOTHYROXINE SODIUM 88 MCG TABLET PO SCH (05:32)
[2023-01-29 06:55] LABS: Basophils # (auto) 0.02 K/uL (0.00-0.20); Basophils % (auto) 0.4 %; Eosinophils # (auto) 0.17 K/uL (0.00-0.50); Eosinophils % (auto) 3.7 %; Hematocrit (blood only) 26.1 % (42.0-52.0); Hemoglobin 8.5 g/dl (14.0-18.0); Immature Granulocytes # (auto) 0.02 K/uL (0.01-0.20); Immature Granulocytes % (auto) 0.4 %; Lymphocytes # (auto) 1.42 K/uL (1.20-3.40); Lymphocytes % (auto) 30.7 %; Mean Corpuscular Hemoglobin 30.4 pg (25.0-34.0); Mean Corpuscular Hgb Conc 32.6 g/dL (32.0-36.0); Mean Corpuscular Volume 93.2 fL (80.0-100.0); Mean Platelet Volume 9.6 fL (9.4-12.4); Monocytes # (auto) 0.33 K/uL (0.11-0.59); Monocytes % (auto) 7.1 %; Neutrophils # (auto) 2.67 K/uL (1.40-6.50); Neutrophils % (auto) 57.7 %; Platelet Count 183 K/uL (130-400); RDW Coefficient of Variation 14.3 % (11.5-14.5); RDW Standard Deviation 49.2 fL (36.4-46.3); White Blood Count 4.63 K/ul (4.8-10.8)
--- NOTE | 2023-01-29 07:09 | Hospitalist Progress Note ---
Date of Service January 29, 2023 Assessment & Plan (1) AMS (altered mental status): Plan: Chang is a 87 y/o male with a past medical history of CKD Stage 4 (previous admission with JUDI requiring temporary dialysis), hx DVT, DMT2 on insulin, HTN, hypothyroidism, paroxysmal a fib on Eliquis, CAD, BPH, GERD, CHF who presented with symptomatic hypoglycemia, weakness, and worsened AMS found to have gram positive bacteremia and sepsis. #Gram Positive Bacteremia - likely E. faecalis #Sepsis #AMS Patient met SIRs criteria with tachypnea and hypothermia. 2/2 blood cultures positive for gram positive cocci in chains; likely enterococcus. Site of infection is likely via the urinary tract as patient has Lopez in place, although urine culture is negative. Patient with wounds on bilateral legs and the buttock which could also be sites of inoculation. Abx: Vanc and CTX x1 01/20 Ampicillin IV: start date: 01/21, end date: 02/21 Repeat blood cultures drawn 01/22 positive for Enterococcus. Repeat 01/24 without growth. Wound nurse consulted ID consulted TTE without vegetation, discussed GLO and pt declines. Given that we do not definitive imaging as to whether or not endocarditis is present, tentative plan for 4 weeks IV antibiotics with repeat TTE after 2 weeks. Repeat blood cultures 2-3 days after stopping antibiotics. Will need US guided IV prior to d/c. # Goals of Care discussed frequent hospitalizations and desire to try and avoid future. Difficult because he has had good quality of life between stays and good recover from acute illnesses. Palliative care consult-> will plan to see as an OP #Indwelling Lopez Catheter- Resolved Patient had Lpoez placed on prior admission as there was initial concern for post-renal kidney injury. Unclear exactly when it was placed. First mentioned in urology note from 01/04. Lopez was to be removed after an outpatient voiding trial on 01/11, but due to extended hospitalization patient missed his Urology appointment and the Lopez remained in place. Patient with likely line associated bacteremia as Lopez has been in place for >10 days. - removed 01/22 and is urinating on his own #Hypoglycemia Patient presented with hypoglycemic (30s) likely in the setting of supratherapeutic Lantus dosing and sepsis. Patient with poor appetite and decreased PO intake. Insulin dosing home regimen of 30 units of Lantus BID and 18 units with meals (2-3x daily). Patient was on steroids during his last admission which played a role in his hyperglycemia and insulin requirement at that time. Lantus 13 units QAM Continue with carb ratio and correction factor #Paroxysmal a fib Was on Eliquis for DVT treatment, given elevated risk of clotting eliquis was resumed patient received left atrial appendage ligation and pulmonary vein isolation in 2013 Metoprolol was held as patient bradycardic. Resumed as patient is no longer bradycardic. #Leg wounds Chronic. Likely in the setting of chronic venous stasis changes and skin breakdown. Will need f/u for wound management. -Leg bandages changed 01/28, patient experienced significant pain with last bandage change so added IV Dilaudid 0.25 to be given prior to dressing change #Thrombocytopenia- Resolved Likely from infectious process. Has slowly been improving. No thrombocytopenia noted on previous admissions. No signs of acute bleeding or consumptive process. #COPD Not on home O2. Continue home albuterol inhaler PRN and scheduled fluticasone propionate-salmeterol. Patient saturating well on RA. Goal SpO2 88-92%. #CKD stage 4 #AIN Previous admission had JUDI requiring temporary dialysis, no longer on dialysis. Cr improving. Avoid nephrotoxic agents. Strict Is and Os -Cr today (01/29) of 1.79 #HTN BPs low initially in ED, now normotensive. Continue home meds - amlodipine and metoprolol #HFpEF Last echo (10/2022): EF 60-65%. CXR with cardiomegaly, mild pulmonary edema, small pleural effusions. Continue home Bumex. Monitor oxygen requirement. -Currently on room air #Anxiety Home dosing of clonazepam is 1 mg BID. Held due to lethargy on admission. Mental status has improved. Will restart at 1 mg BID. VTE: Eliquis Code: DNR/DNI FENGI: Carb Consistent Dispo PT/OT for weakness (2) Acute UTI (urinary tract infection): (3) Anemia of chronic disease: (4) Anxiety: (5) Chronic kidney disease, stage 4 (severe): (6) CHF (congestive heart failure): (7) GERD (gastroesophageal reflux disease): (8) BPH (benign prostatic hyperplasia): (9) CAD (coronary artery disease): (10) Paroxysmal atrial fibrillation: (11) Dyslipidemia: (12) Hypertension: (13) Hypothyroidism: (14) COPD (chronic obstructive pulmonary disease): (15) Benign prostatic hyperplasia with urinary obstruction: (16) Peripheral vascular disease: (17) Wound of lower extremity: (18) Hypoglycemia due to insulin: (19) Thrombocytopenia: (20) Acidosis: Admission and Anticipated Discharge Date Admission Date: January 20, 2023 Supervising Physician Co-Signing Physician Notes I personally examined the patient and verified all [place] points of history and exam, discussed case, and agree with decision making with Dr Christian no new complaints. awaiting insurance approval/placement. Vitals noted, in general he is awake and alert pleasant no distress. HEENT normocephalic atraumatic mucous membranes moist. Breathing unlabored no accessory muscle use good effort. Skin shows no rashes no pallor or icterus. Recurrent Enterococcus bacteremialast had same in october. appears persistent this time - ID consult appreciated, transthoracic echo without vegetation, but not an extremely reassuring picture as valves were not well visualized, repeat repeat cultures are NGTD, in light of not wanting GLO - follow cautiously as we follow with treatment, Continue ampicillin -maybe for longer given lack of GLO and persistent bacteremia metabolic encephalopathy present on admission - likely largely sugar mediated, treated and resolved. goals of care -have had many discussions, particularly as it relates to his big picture expression of goals and ideals versus his daily decision making, right now it certainly seems rational for him to want to continue to have acute illnesses treated given that he bounces back each time, and yet at the same time he continues to express a big picture sentiments of almost consistent with comfort measures onlywhich once we get into more granular decision making is absolutely not the caseasked him and his to discuss these types of issues more in detail. for now working towards [facility] care. have not directly furthered discussions in a few days since his immediate goals were clearly defined (ongoing aggressive care) and his "big picture incongruities" (talking in ways that would be most c/w a hospice type approach with "being ready", but then clearly wanting everything that could be done to be done in terms of day-to-day problem management) remained for [facility] care once approved/bed available, ID suggets ampicillin through 02/07, might consider additional ~14 days given above concerns (or at least f/u echo and f/u cultures shortly after abx stopped) Subjective Pt seen at bedside this morning. Doing well. Waiting for approval for [place] [facility]. Review of Systems Review of Systems: As per above Physical Exam Physical Exam: Constitutional: well-appearing, no acute distress HEENT: NCAT, no conjunctival injection CV: well-perfused Resp: no increased work of breathing GI: nondistended MSK: no gross deformities appreciated Skin: warm, dry, no rash appreciated Neuro: alert, oriented, no focal neurologic deficit appreciated Results & Data Results & Data Vital Signs (Past 12 Hours) Vital Signs Temp Pulse Pulse Resp BP Pulse Ox Pulse Ox 01/29/23 06:53 66 01/29/23 03:46 36.8 C 69 14 149/69 H 98 01/29/23 00:58 62 01/28/23 22:48 01/28/23 20:00 96 01/28/23 22:36 36.7 C 73 20 151/69 H 96 01/28/23 19:37 36.6 C 66 18 135/69 95 O2 Del Method O2 Del Method 01/29/23 06:53 01/29/23 03:46 Room Air 01/29/23 00:58 01/28/23 22:48 Room Air 01/28/23 20:00 Room Air 01/28/23 22:36 Room Air 01/28/23 19:37 Room Air Resident Activity Tracking Resident Involvement: Resident Care Provided Care Provided: Adult Hospital Medicine (6) CHF (congestive heart failure) Heart failure chronicity: unspecified Heart failure type: unspecified Qualified Code(s): I50.9 - Heart failure, unspecified (7) GERD (gastroesophageal reflux disease) Esophagitis presence: esophagitis presence not specified Qualified Code(s): K21.9 - Gastro-esophageal reflux disease without esophagitis (8) BPH (benign prostatic hyperplasia) Lower urinary tract symptom presence: symptoms absent Qualified Code(s): N40.0 - Benign prostatic hyperplasia without lower urinary tract symptoms (9) CAD (coronary artery disease) Associated angina: without angina Coronary Disease-Associated Artery/Lesion type: [place] artery [place] vs. transplanted heart: [place] heart Qualified Code(s): I25.10 - Atherosclerotic heart disease of [place] coronary artery without angina pectoris (12) Hypertension Hypertension type: essential hypertension Qualified Code(s): I10 - Essential (primary) hypertension (13) Hypothyroidism Hypothyroidism type: unspecified Qualified Code(s): E03.9 - Hypothyroidism, unspecified (14) COPD (chronic obstructive pulmonary disease) COPD type: unspecified COPD Qualified Code(s): J44.9 - Chronic obstructive pulmonary disease, unspecified
[2023-01-29] MEDS: amLODIPine BESYLATE 5 MG TAB PO SCH (08:03)
[2023-01-29] MEDS: BUMETANIDE 1 MG TAB PO SCH ×2 (08:03→15:00)
[2023-01-29] MEDS: APIXABAN 2.5 MG TAB PO SCH ×2 (08:03→20:43)
[2023-01-29] MEDS: ASPIRIN 81 MG ECTAB PO SCH (08:03)
[2023-01-29] MEDS: POTASSIUM CHLORIDE CRTAB 20 MEQ TABCR PO SCH (08:04)
[2023-01-29] MEDS: PANTOprazole 40 MG TAB PO SCH ×2 (08:04→20:44)
[2023-01-29] MEDS: GABAPENTIN 100 MG CAP PO SCH ×2 (08:04→20:43)
[2023-01-29] MEDS: clonazePAM 1 MG TAB PO SCH ×2 (08:04→20:43)
[2023-01-29] MEDS: METOPROLOL TARTRATE 25 MG TAB PO SCH ×2 (08:04→20:44)
[2023-01-29] MEDS: MICONAZOLE NITRATE 2% CR 30 GM TUBE EXT SCH ×2 (08:07→20:44)
[2023-01-29] MEDS: UMECLIDINIUM BROMIDE 62.5MCG/BLISTER 7 PUFFS/INHALER INH SCH (08:07)
[2023-01-29 08:15] LABS: BUN Creatinine Ratio 11.7 (10-20); Calcium 7.6 mg/dl (8.6-10.3); Creatinine Clr Calc Pharmacy 31.8 ml/min; Est GFR (African American) 38.6 ml/min; Est GFR (Non-African American) 33.3 ml/min; Potassium 3.5 mmol/L (3.5-5.1)
[2023-01-29] MEDS: LANTUS PER UNIT CHARGE SQ SCH (08:52)
[2023-01-29] MEDS: INSULIN ASPART PER UNIT CHARGE SC SCH ×4 (08:52→20:44)
--- NOTE | 2023-01-29 13:28 | Billing Data ---
Date of Service January 29, 2023 Coding Level of Care Code 87383 SUB INP/OBS CARE
[2023-01-29] MEDS: HYDROmorphone INJ 0.5 MG/0.5 ML SYR IV PRN (17:29)
[2023-01-29] MEDS: FINASTERIDE 5 MG TAB PO SCH (20:43)
[2023-01-29] MEDS: TAMSULOSIN HCL 0.4 MG CAP PO SCH (20:45)
[2023-01-29] MEDS: ROSUVASTATIN CALCIUM 20 MG TAB PO SCH (20:45)
[2023-01-30] MEDS: AMPICILLIN 2,000 MG in 0.9 % SODIUM CHLORIDE 100 ML IV SCH ×4 (05:12→18:27)
[2023-01-30] MEDS: LEVOTHYROXINE SODIUM 88 MCG TABLET PO SCH (05:52)
--- NOTE | 2023-01-30 06:45 | Hospitalist Progress Note ---
Date of Service January 30, 2023 Assessment & Plan (1) AMS (altered mental status): Plan: Chang is a 87 y/o male with a past medical history of CKD Stage 4 (previous admission with JUDI requiring temporary dialysis), hx DVT, DMT2 on insulin, HTN, hypothyroidism, paroxysmal a fib on Eliquis, CAD, BPH, GERD, CHF who presented with symptomatic hypoglycemia, weakness, and worsened AMS found to have gram positive bacteremia and sepsis. #Gram Positive Bacteremia - likely E. faecalis #Sepsis #AMS Patient met SIRs criteria with tachypnea and hypothermia. 2/2 blood cultures positive for gram positive cocci in chains; likely enterococcus. Site of infection is likely via the urinary tract as patient has Lopez in place, although urine culture is negative. Patient with wounds on bilateral legs and the buttock which could also be sites of inoculation. Abx: Vanc and CTX x1 01/20 Ampicillin IV: start date: 01/21, end date: 02/21 Repeat blood cultures drawn 01/22 positive for Enterococcus. Repeat 01/24 without growth. Wound nurse consulted ID consulted TTE without vegetation, discussed GLO and pt declines. Given that we do not definitive imaging as to whether or not endocarditis is present, tentative plan for 4 weeks IV antibiotics with repeat TTE after 2 weeks. Repeat blood cultures 2-3 days after stopping antibiotics. Will need US guided IV prior to d/c. # Goals of Care discussed frequent hospitalizations and desire to try and avoid future. Difficult because he has had good quality of life between stays and good recover from acute illnesses. Palliative care consult-> will plan to see as an OP #Indwelling Lopez Catheter- Resolved Patient had Lopez placed on prior admission as there was initial concern for post-renal kidney injury. Unclear exactly when it was placed. First mentioned in urology note from 01/04. Lopez was to be removed after an outpatient voiding trial on 01/11, but due to extended hospitalization patient missed his Urology appointment and the Lopez remained in place. Patient with likely line associated bacteremia as Lopez has been in place for >10 days. - removed 01/22 and is urinating on his own #Hypoglycemia Patient presented with hypoglycemic (30s) likely in the setting of supratherapeutic Lantus dosing and sepsis. Patient with poor appetite and decreased PO intake. Insulin dosing home regimen of 30 units of Lantus BID and 18 units with meals (2-3x daily). Patient was on steroids during his last admission which played a role in his hyperglycemia and insulin requirement at that time. Lantus 15 units QAM Continue with carb ratio and correction factor #Paroxysmal a fib Was on Eliquis for DVT treatment, given elevated risk of clotting Eliquis was resumed patient received left atrial appendage ligation and pulmonary vein isolation in 2013 Metoprolol was held as patient bradycardic. Resumed as patient is no longer bradycardic. #Leg wounds Chronic. Likely in the setting of chronic venous stasis changes and skin breakdown. Will need f/u for wound management. -Leg bandages changed 01/28, patient experienced significant pain with last bandage change so added IV Dilaudid 0.25 to be given prior to dressing change #Thrombocytopenia- Resolved Likely from infectious process. Has slowly been improving. No thrombocytopenia noted on previous admissions. No signs of acute bleeding or consumptive process. #COPD Not on home O2. Continue home albuterol inhaler PRN and scheduled fluticasone propionate-salmeterol. Patient saturating well on RA. Goal SpO2 88-92%. #CKD stage 4 #AIN Previous admission had JUDI requiring temporary dialysis, no longer on dialysis. Cr improving. Avoid nephrotoxic agents. Strict Is and Os -Cr has been at his baselline, continue to trend. #HTN BPs low initially in ED, now normotensive. Continue home meds - amlodipine and metoprolol #HFpEF Continue home Bumex. #Anxiety Home dosing of clonazepam is 1 mg BID. Held due to lethargy on admission. Mental status has improved. Was restarted on 1 mg BID. VTE: Eliquis Code: DNR/DNI FENGI: Carb Consistent Dispo: [facility] pending insurance authorization (2) Acute UTI (urinary tract infection): (3) Anemia of chronic disease: (4) Anxiety: (5) Chronic kidney disease, stage 4 (severe): (6) CHF (congestive heart failure): (7) GERD (gastroesophageal reflux disease): (8) BPH (benign prostatic hyperplasia): (9) CAD (coronary artery disease): (10) Paroxysmal atrial fibrillation: (11) Dyslipidemia: (12) Hypertension: (13) Hypothyroidism: (14) COPD (chronic obstructive pulmonary disease): (15) Benign prostatic hyperplasia with urinary obstruction: (16) Peripheral vascular disease: (17) Wound of lower extremity: (18) Hypoglycemia due to insulin: (19) Thrombocytopenia: (20) Acidosis: Admission and Anticipated Discharge Date Admission Date: January 20, 2023 Supervising Physician Co-Signing Physician Notes I personally examined the patient and verified aguayo points of history and exam, discussed case, and agree with decision making and plan documented by Dr. Christian. Patient comfortable and without acute complaints on exam. Continue IV ampicillin, discussed consideration of maintaining IV antibiotics to complete 4 weeks of treatment considering TTE unable to definitively rule out vegetations on valves (patient refusing GLO) in setting of recurrent Enterococcus bacteremia. Awaiting rehabilitation placement. Subjective Chang is doing well this morning. Still having pain in shins B/L from wounds. Spoke with over the phone, answered questions. Review of Systems Review of Systems: As per above Physical Exam Physical Exam: Constitutional: well-appearing, no acute distress HEENT: NCAT, no conjunctival injection CV: regular rhythm, no murmur appreciated, extremities well-perfused Resp: CTABL, no wheezes/rales/rhonchi appreciated, no increased work of breathing MSK: no gross deformities appreciated Skin: warm, dry, no rash appreciated Neuro: alert, oriented, no focal neurologic deficit appreciated Skin: dressings in place LE B/L Results & Data Results & Data Vital Signs (Past 12 Hours) Vital Signs Temp Pulse Pulse Resp BP Pulse Ox Pulse Ox 01/30/23 02:55 36.4 C L 64 16 106/42 L 95 01/29/23 23:55 68 01/29/23 22:41 36.7 C 66 16 124/67 95 01/29/23 21:19 01/29/23 20:00 96 01/29/23 19:32 36.4 C L 72 18 133/65 96 O2 Del Method O2 Del Method 01/30/23 02:55 Room Air 01/29/23 23:55 01/29/23 22:41 Room Air 01/29/23 21:19 Room Air 01/29/23 20:00 Room Air 01/29/23 19:32 Room Air Resident Activity Tracking Resident Involvement: Resident Care Provided Care Provided: Adult Hospital Medicine (6) CHF (congestive heart failure) Heart failure chronicity: unspecified Heart failure type: unspecified Qualified Code(s): I50.9 - Heart failure, unspecified (7) GERD (gastroesophageal reflux disease) Esophagitis presence: esophagitis presence not specified Qualified Code(s): K21.9 - Gastro-esophageal reflux disease without esophagitis (8) BPH (benign prostatic hyperplasia) Lower urinary tract symptom presence: symptoms absent Qualified Code(s): N40.0 - Benign prostatic hyperplasia without lower urinary tract symptoms (9) CAD (coronary artery disease) Associated angina: without angina Coronary Disease-Associated Artery/Lesion type: [place] artery [place] vs. transplanted heart: [place] heart Qualified Code(s): I25.10 - Atherosclerotic heart disease of [place] coronary artery without angina pectoris (12) Hypertension Hypertension type: essential hypertension Qualified Code(s): I10 - Essential (primary) hypertension (13) Hypothyroidism Hypothyroidism type: unspecified Qualified Code(s): E03.9 - Hypothyroidism, unspecified (14) COPD (chronic obstructive pulmonary disease) COPD type: unspecified COPD Qualified Code(s): J44.9 - Chronic obstructive pulmonary disease, unspecified
[2023-01-30 06:54] LABS: Basophils # (auto) 0.04 K/uL (0.00-0.20); Basophils % (auto) 0.9 %; Eosinophils # (auto) 0.18 K/uL (0.00-0.50); Eosinophils % (auto) 4.2 %; Hematocrit (blood only) 27.4 % (42.0-52.0); Hemoglobin 8.9 g/dl (14.0-18.0); Immature Granulocytes # (auto) 0.03 K/uL (0.01-0.20); Immature Granulocytes % (auto) 0.7 %; Lymphocytes # (auto) 1.42 K/uL (1.20-3.40); Lymphocytes % (auto) 33.1 %; Mean Corpuscular Hemoglobin 30.4 pg (25.0-34.0); Mean Corpuscular Hgb Conc 32.5 g/dL (32.0-36.0); Mean Corpuscular Volume 93.5 fL (80.0-100.0); Mean Platelet Volume 9.3 fL (9.4-12.4); Monocytes # (auto) 0.31 K/uL (0.11-0.59); Monocytes % (auto) 7.2 %; Neutrophils # (auto) 2.31 K/uL (1.40-6.50); Neutrophils % (auto) 53.9 %; Platelet Count 201 K/uL (130-400); RDW Coefficient of Variation 14.5 % (11.5-14.5); RDW Standard Deviation 49.9 fL (36.4-46.3); Red Blood Count 2.93 M/uL (4.70-6.10); White Blood Count 4.29 K/ul (4.8-10.8)
[2023-01-30 07:14] LABS: BUN Creatinine Ratio 10.3 (10-20); Calcium 7.6 mg/dl (8.6-10.3); Creatinine Clr Calc Pharmacy 32.7 ml/min; Est GFR (African American) 39.7 ml/min; Est GFR (Non-African American) 34.3 ml/min; Potassium 3.5 mmol/L (3.5-5.1)
[2023-01-30] MEDS: MICONAZOLE NITRATE 2% CR 30 GM TUBE EXT SCH ×2 (08:36→21:15)
[2023-01-30] MEDS: UMECLIDINIUM BROMIDE 62.5MCG/BLISTER 7 PUFFS/INHALER INH SCH (08:36)
[2023-01-30] MEDS: clonazePAM 1 MG TAB PO SCH ×2 (08:37→21:13)
[2023-01-30] MEDS: GABAPENTIN 100 MG CAP PO SCH ×2 (08:37→21:14)
[2023-01-30] MEDS: METOPROLOL TARTRATE 25 MG TAB PO SCH ×2 (08:37→21:14)
[2023-01-30] MEDS: ASPIRIN 81 MG ECTAB PO SCH (08:37)
[2023-01-30] MEDS: amLODIPine BESYLATE 5 MG TAB PO SCH (08:37)
[2023-01-30] MEDS: BUMETANIDE 1 MG TAB PO SCH ×2 (08:37→13:31)
[2023-01-30] MEDS: APIXABAN 2.5 MG TAB PO SCH ×2 (08:37→21:13)
[2023-01-30] MEDS: PANTOprazole 40 MG TAB PO SCH ×2 (08:37→21:15)
[2023-01-30] MEDS: POTASSIUM CHLORIDE CRTAB 20 MEQ TABCR PO SCH (08:37)
[2023-01-30] MEDS: INSULIN ASPART PER UNIT CHARGE SC SCH ×4 (09:24→21:12)
[2023-01-30] MEDS: LANTUS PER UNIT CHARGE SQ SCH (09:25)
[2023-01-30] MEDS: ROSUVASTATIN CALCIUM 20 MG TAB PO SCH (21:13)
[2023-01-30] MEDS: TAMSULOSIN HCL 0.4 MG CAP PO SCH (21:14)
[2023-01-30] MEDS: FINASTERIDE 5 MG TAB PO SCH (21:14)
[2023-01-31] MEDS: AMPICILLIN 2,000 MG in 0.9 % SODIUM CHLORIDE 100 ML IV SCH ×5 (00:31→23:50)
[2023-01-31] MEDS: LEVOTHYROXINE SODIUM 88 MCG TABLET PO SCH (05:42)
--- NOTE | 2023-01-31 06:34 | Hospitalist Progress Note ---
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 #Gram Positive Bacteremia - likely E. faecalis #Sepsis #AMS Patient met SIRs criteria with tachypnea and hypothermia. 2/2 blood cultures positive for gram positive cocci in chains; likely enterococcus. Site of infection is likely via the urinary tract as patient has Lopez in place, although urine culture is negative. Patient with wounds on bilateral legs and the buttock which could also be sites of inoculation. Abx: Vanc and CTX x1 01/20 Ampicillin IV: start date: 01/21, end date: 02/21 Repeat blood cultures drawn 01/22 positive for Enterococcus. Repeat 01/24 without growth. Wound nurse consulted ID consulted TTE without vegetation, discussed GLO and pt declines. Given that we do not definitive imaging as to whether or not endocarditis is present, tentative plan for 4 weeks IV antibiotics with repeat TTE after 2 weeks. Repeat blood cultures 2-3 days after stopping antibiotics. Will need US guided IV prior to d/c. # Goals of Care discussed frequent hospitalizations and desire to try and avoid future. Difficult because he has had good quality of life between stays and good recover from acute illnesses. Palliative care consult-> will plan to see as an OP #Indwelling Lopez Catheter- Resolved Patient had Lopez placed on prior admission as there was initial concern for post-renal kidney injury. Unclear exactly when it was placed. First mentioned in urology note from 01/04. Lopez was to be removed after an outpatient voiding trial on 01/11, but due to extended hospitalization patient missed his Urology appointment and the Lopez remained in place. Patient with likely line associated bacteremia as Lopez has been in place for >10 days. - removed 01/22 and is urinating on his own #Hypoglycemia Patient presented with hypoglycemic (30s) likely in the setting of supratherapeutic Lantus dosing and sepsis. Patient with poor appetite and decreased PO intake. Insulin dosing home regimen of 30 units of Lantus BID and 18 units with meals (2-3x daily). Patient was on steroids during his last admission which played a role in his hyperglycemia and insulin requirement at that time. Lantus 15 units QAM Continue with carb ratio and correction factor #Paroxysmal a fib Was on Eliquis for DVT treatment, given elevated risk of clotting Eliquis was resumed patient received left atrial appendage ligation and pulmonary vein isolation in 2013 Metoprolol was held as patient bradycardic. Resumed as patient is no longer bradycardic. #Leg wounds Chronic. Likely in the setting of chronic venous stasis changes and skin breakdown. Will need f/u for wound management. -Leg bandages changed 01/28, patient experienced significant pain with last bandage change so added IV Dilaudid 0.25 to be given prior to dressing change #Thrombocytopenia- Resolved Likely from infectious process. Has slowly been improving. No thrombocytopenia noted on previous admissions. No signs of acute bleeding or consumptive process. #COPD Not on home O2. Continue home albuterol inhaler PRN and scheduled fluticasone propionate-salmeterol. Patient saturating well on RA. Goal SpO2 88-92%. #CKD stage 4 #AIN Previous admission had JUDI requiring temporary dialysis, no longer on dialysis. Cr improving. Avoid nephrotoxic agents. Strict Is and Os -Cr has been at his baselline, continue to trend. #HTN - BPs low initially in ED, now normotensive. - Continue home meds - amlodipine and metoprolol #HFpEF Continue home Bumex. #Anxiety - continue home dosing of clonazepam is 1 mg BID VTE: Eliquis Code: DNR/DNI FENGI: Carb Consistent Dispo: [facility] pending insurance authorization- f/u with case management today (2) Acute UTI (urinary tract infection): (3) Anemia of chronic disease: (4) Anxiety: (5) Chronic kidney disease, stage 4 (severe): (6) CHF (congestive heart failure): (7) GERD (gastroesophageal reflux disease): (8) BPH (benign prostatic hyperplasia): (9) CAD (coronary artery disease): (10) Paroxysmal atrial fibrillation: (11) Dyslipidemia: (12) Hypertension: (13) Hypothyroidism: (14) COPD (chronic obstructive pulmonary disease): (15) Benign prostatic hyperplasia with urinary obstruction: (16) Peripheral vascular disease: (17) Wound of lower extremity: (18) Hypoglycemia due to insulin: (19) Thrombocytopenia: (20) Acidosis: Admission and Anticipated Discharge Date Admission Date: January 20, 2023 Supervising Physician Co-Signing Physician Notes I personally examined the patient and verified aguayo points of history and exam, discussed case, and agree with decision making and plan documented by Dr. Christian. Patient will likely be discharged to [facility], awaiting authorization, patient will require IV placement prior to discharge, antibiotics will be continued until 02/01/2023. Subjective Chang doing well this morning. Eating breakfast. Wounds on legs are feeling better. Review of Systems Review of Systems: As per above Physical Exam Physical Exam: Constitutional: well-appearing, no acute distress HEENT: NCAT, no conjunctival injection CV: regular rhythm, no murmur appreciated, extremities well-perfused Resp: CTABL, no wheezes/rales/rhonchi appreciated, no increased work of breathing MSK: no gross deformities appreciated Skin: warm, dry, no rash appreciated Neuro: alert, oriented, no focal neurologic deficit appreciated Skin: dressings in place LE B/L Results & Data Results & Data Vital Signs (Past 12 Hours) Vital Signs Temp Pulse Pulse Resp BP BP Pulse Ox 01/31/23 04:00 36.6 C 68 16 162/67 H 93 01/31/23 00:25 66 01/30/23 23:51 36.8 C 66 18 130/70 93 01/30/23 22:45 01/30/23 19:52 36.6 C 67 18 146/68 H 95 O2 Del Method 01/31/23 04:00 Room Air 01/31/23 00:25 01/30/23 23:51 Room Air 01/30/23 22:45 Room Air 01/30/23 19:52 Room Air Resident Activity Tracking Resident Involvement: Resident Care Provided Care Provided: Adult Hospital Medicine (6) CHF (congestive heart failure) Heart failure chronicity: unspecified Heart failure type: unspecified Qualified Code(s): I50.9 - Heart failure, unspecified (7) GERD (gastroesophageal reflux disease) Esophagitis presence: esophagitis presence not specified Qualified Code(s): K21.9 - Gastro-esophageal reflux disease without esophagitis (8) BPH (benign prostatic hyperplasia) Lower urinary tract symptom presence: symptoms absent Qualified Code(s): N40.0 - Benign prostatic hyperplasia without lower urinary tract symptoms (9) CAD (coronary artery disease) Associated angina: without angina Coronary Disease-Associated Artery/Lesion type: [place] artery [place] vs. transplanted heart: [place] heart Qualified Code(s): I25.10 - Atherosclerotic heart disease of [place] coronary artery without angina pectoris (12) Hypertension Hypertension type: essential hypertension Qualified Code(s): I10 - Essential (primary) hypertension (13) Hypothyroidism Hypothyroidism type: unspecified Qualified Code(s): E03.9 - Hypothyroidism, unspecified (14) COPD (chronic obstructive pulmonary disease) COPD type: unspecified COPD Qualified Code(s): J44.9 - Chronic obstructive pulmonary disease, unspecified
[2023-01-31] MEDS: METOPROLOL TARTRATE 25 MG TAB PO SCH ×2 (07:44→20:29)
[2023-01-31] MEDS: GABAPENTIN 100 MG CAP PO SCH ×2 (07:44→20:30)
[2023-01-31 07:45] LABS: Basophils # (auto) 0.02 K/uL (0.00-0.20); Basophils % (auto) 0.4 %; Eosinophils # (auto) 0.19 K/uL (0.00-0.50); Eosinophils % (auto) 4.2 %; Hematocrit (blood only) 28.5 % (42.0-52.0); Hemoglobin 9.5 g/dl (14.0-18.0); Immature Granulocytes # (auto) 0.02 K/uL (0.01-0.20); Immature Granulocytes % (auto) 0.4 %; Lymphocytes # (auto) 1.56 K/uL (1.20-3.40); Lymphocytes % (auto) 34.4 %; Mean Corpuscular Hemoglobin 30.4 pg (25.0-34.0); Mean Corpuscular Hgb Conc 33.3 g/dL (32.0-36.0); Mean Corpuscular Volume 91.3 fL (80.0-100.0); Mean Platelet Volume 9.3 fL (9.4-12.4); Monocytes # (auto) 0.36 K/uL (0.11-0.59); Monocytes % (auto) 7.9 %; Neutrophils # (auto) 2.39 K/uL (1.40-6.50); Neutrophils % (auto) 52.7 %; Platelet Count 230 K/uL (130-400); RDW Coefficient of Variation 14.3 % (11.5-14.5); RDW Standard Deviation 48.1 fL (36.4-46.3); Red Blood Count 3.12 M/uL (4.70-6.10); White Blood Count 4.54 K/ul (4.8-10.8)
[2023-01-31] MEDS: APIXABAN 2.5 MG TAB PO SCH ×2 (07:45→20:29)
[2023-01-31] MEDS: ASPIRIN 81 MG ECTAB PO SCH (07:45)
[2023-01-31] MEDS: POTASSIUM CHLORIDE CRTAB 20 MEQ TABCR PO SCH (07:45)
[2023-01-31] MEDS: amLODIPine BESYLATE 5 MG TAB PO SCH (07:45)
[2023-01-31] MEDS: BUMETANIDE 1 MG TAB PO SCH ×2 (07:45→13:12)
[2023-01-31] MEDS: PANTOprazole 40 MG TAB PO SCH ×2 (07:46→20:27)
[2023-01-31] MEDS: MICONAZOLE NITRATE 2% CR 30 GM TUBE EXT SCH ×2 (07:46→20:28)
[2023-01-31] MEDS: UMECLIDINIUM BROMIDE 62.5MCG/BLISTER 7 PUFFS/INHALER INH SCH (07:46)
[2023-01-31 08:01] LABS: BUN Creatinine Ratio 10.5 (10-20); Calcium 7.8 mg/dl (8.6-10.3); Creatinine Clr Calc Pharmacy 33.5 ml/min; Est GFR (African American) 40.8 ml/min; Est GFR (Non-African American) 35.2 ml/min; Potassium 3.4 mmol/L (3.5-5.1)
[2023-01-31] MEDS: clonazePAM 1 MG TAB PO SCH ×2 (08:39→20:27)
[2023-01-31] MEDS: INSULIN ASPART PER UNIT CHARGE SC SCH ×4 (08:40→20:27)
[2023-01-31] MEDS: LANTUS PER UNIT CHARGE SQ SCH (08:40)
[2023-01-31] MEDS: TAMSULOSIN HCL 0.4 MG CAP PO SCH (20:28)
[2023-01-31] MEDS: FINASTERIDE 5 MG TAB PO SCH (20:28)
[2023-01-31] MEDS: ROSUVASTATIN CALCIUM 20 MG TAB PO SCH (20:29)
[2023-02-01] MEDS: AMPICILLIN 2,000 MG in 0.9 % SODIUM CHLORIDE 100 ML IV SCH ×2 (05:37→12:02)
[2023-02-01] MEDS: LEVOTHYROXINE SODIUM 88 MCG TABLET PO SCH (05:38)
--- NOTE | 2023-02-01 06:43 | Hospitalist Progress Note ---
Date of Service February 01, 2023 Assessment & Plan (1) AMS (altered mental status): Plan: Chang is a 87 y/o male with a past medical history of CKD Stage 4 (previous admission with JUDI requiring temporary dialysis), hx DVT, DMT2 on insulin, HTN, hypothyroidism, paroxysmal a fib on Eliquis, CAD, BPH, GERD, CHF who presented with symptomatic hypoglycemia, weakness, and worsened AMS found to have gram positive bacteremia and sepsis. #Gram Positive Bacteremia - likely E. faecalis #Sepsis #AMS Patient met SIRs criteria with tachypnea and hypothermia. 2/2 blood cultures positive for gram positive cocci in chains; likely enterococcus. Site of infection is likely via the urinary tract as patient has Lopez in place, although urine culture is negative. Patient with wounds on bilateral legs and the buttock which could also be sites of inoculation. Abx: Vanc and CTX x1 01/20 Ampicillin IV: start date: 01/21, end date: 02/21 Repeat blood cultures drawn 01/22 positive for Enterococcus. Repeat 01/24 without growth. Wound nurse consulted ID consulted TTE without vegetation, discussed GLO and pt declines. Given that we do not definitive imaging as to whether or not endocarditis is present, tentative plan for 4 weeks IV antibiotics with repeat TTE after 2 weeks. Repeat blood cultures 2-3 days after stopping antibiotics. Will need US guided IV prior to d/c. # Goals of Care discussed frequent hospitalizations and desire to try and avoid future. Difficult because he has had good quality of life between stays and good recover from acute illnesses. Palliative care consult-> will plan to see as an OP #Indwelling Lopez Catheter- Resolved Patient had Lopez placed on prior admission as there was initial concern for post-renal kidney injury. Unclear exactly when it was placed. First mentioned in urology note from 01/04. Lopez was to be removed after an outpatient voiding trial on 01/11, but due to extended hospitalization patient missed his Urology appointment and the Lopez remained in place. Patient with likely line associated bacteremia as Lopez has been in place for >10 days. - removed 01/22 and is urinating on his own #Hypoglycemia Patient presented with hypoglycemic (30s) likely in the setting of supratherapeutic Lantus dosing and sepsis. Patient with poor appetite and decreased PO intake. Insulin dosing home regimen of 30 units of Lantus BID and 18 units with meals (2-3x daily). Patient was on steroids during his last admission which played a role in his hyperglycemia and insulin requirement at that time. Lantus 15 units QAM Continue with carb ratio and correction factor #Paroxysmal a fib Was on Eliquis for DVT treatment, given elevated risk of clotting Eliquis was resumed patient received left atrial appendage ligation and pulmonary vein isolation in 2013 Metoprolol was held as patient bradycardic. Resumed as patient is no longer bradycardic. #Leg wounds Chronic. Likely in the setting of chronic venous stasis changes and skin breakdown. Will need f/u for wound management. -Leg bandages changed 01/28, patient experienced significant pain with last bandage change so added IV Dilaudid 0.25 to be given prior to dressing change #Thrombocytopenia- Resolved Likely from infectious process. Has slowly been improving. No thrombocytopenia noted on previous admissions. No signs of acute bleeding or consumptive process. #COPD Not on home O2. Continue home albuterol inhaler PRN and scheduled fluticasone propionate-salmeterol. Patient saturating well on RA. Goal SpO2 88-92%. #CKD stage 4 #AIN Previous admission had JUDI requiring temporary dialysis, no longer on dialysis. Cr improving. Avoid nephrotoxic agents. Strict Is and Os -Cr has been at his baselline, continue to trend. #HTN - BPs low initially in ED, now normotensive. - Continue home meds - amlodipine and metoprolol #HFpEF Continue home Bumex. #Anxiety - continue home dosing of clonazepam is 1 mg BID VTE: Eliquis Code: DNR/DNI FENGI: Carb Consistent Dispo: [facility] pending insurance authorization- f/u with case management today (2) Acute UTI (urinary tract infection): (3) Anemia of chronic disease: (4) Anxiety: (5) Chronic kidney disease, stage 4 (severe): (6) CHF (congestive heart failure): (7) GERD (gastroesophageal reflux disease): (8) BPH (benign prostatic hyperplasia): (9) CAD (coronary artery disease): (10) Paroxysmal atrial fibrillation: (11) Dyslipidemia: (12) Hypertension: (13) Hypothyroidism: (14) COPD (chronic obstructive pulmonary disease): (15) Benign prostatic hyperplasia with urinary obstruction: (16) Peripheral vascular disease: (17) Wound of lower extremity: (18) Hypoglycemia due to insulin: (19) Thrombocytopenia: (20) Acidosis: Admission and Anticipated Discharge Date Admission Date: January 20, 2023 Review of Systems Review of Systems: As per above Physical Exam Physical Exam: Constitutional: well-appearing, no acute distress HEENT: NCAT, no conjunctival injection CV: regular rhythm, no murmur appreciated, extremities well-perfused Resp: CTABL, no wheezes/rales/rhonchi appreciated, no increased work of breathing MSK: no gross deformities appreciated Skin: warm, dry, no rash appreciated Neuro: alert, oriented, no focal neurologic deficit appreciated Skin: dressings in place LE B/L Results & Data Results & Data Vital Signs (Past 12 Hours) Vital Signs Temp Pulse Pulse Resp BP BP Pulse Ox 02/01/23 03:00 36.5 C 70 20 125/61 93 01/31/23 21:59 68 01/31/23 22:00 36.7 C 71 18 131/70 95 01/31/23 20:26 74 123/56 L 01/31/23 19:00 36.8 C 69 18 123/67 96 O2 Del Method 02/01/23 03:00 Room Air 01/31/23 21:59 01/31/23 22:00 Room Air 01/31/23 20:26 01/31/23 19:00 Room Air (6) CHF (congestive heart failure) Heart failure type: unspecified Heart failure chronicity: unspecified Qualified Code(s): I50.9 - Heart failure, unspecified (7) GERD (gastroesophageal reflux disease) Esophagitis presence: esophagitis presence not specified Qualified Code(s): K21.9 - Gastro-esophageal reflux disease without esophagitis (8) BPH (benign prostatic hyperplasia) Lower urinary tract symptom presence: symptoms absent Qualified Code(s): N40.0 - Benign prostatic hyperplasia without lower urinary tract symptoms (9) CAD (coronary artery disease) Coronary Disease-Associated Artery/Lesion type: [place] artery [place] vs. transplanted heart: [place] heart Associated angina: without angina Qualified Code(s): I25.10 - Atherosclerotic heart disease of [place] coronary artery without angina pectoris (12) Hypertension Hypertension type: essential hypertension Qualified Code(s): I10 - Essential (primary) hypertension (13) Hypothyroidism Hypothyroidism type: unspecified Qualified Code(s): E03.9 - Hypothyroidism, unspecified (14) COPD (chronic obstructive pulmonary disease) COPD type: unspecified COPD Qualified Code(s): J44.9 - Chronic obstructive pulmonary disease, unspecified
[2023-02-01] MEDS: UMECLIDINIUM BROMIDE 62.5MCG/BLISTER 7 PUFFS/INHALER INH SCH (07:52)
[2023-02-01] MEDS: ASPIRIN 81 MG ECTAB PO SCH (07:53)
[2023-02-01] MEDS: clonazePAM 1 MG TAB PO SCH (07:53)
[2023-02-01] MEDS: APIXABAN 2.5 MG TAB PO SCH (07:53)
[2023-02-01] MEDS: POTASSIUM CHLORIDE CRTAB 20 MEQ TABCR PO SCH (07:53)
[2023-02-01] MEDS: MICONAZOLE NITRATE 2% CR 30 GM TUBE EXT SCH (07:53)
[2023-02-01] MEDS: amLODIPine BESYLATE 5 MG TAB PO SCH (07:53)
[2023-02-01] MEDS: GABAPENTIN 100 MG CAP PO SCH (07:53)
[2023-02-01] MEDS: PANTOprazole 40 MG TAB PO SCH (07:53)
[2023-02-01] MEDS: METOPROLOL TARTRATE 25 MG TAB PO SCH (07:53)
[2023-02-01] MEDS: BUMETANIDE 1 MG TAB PO SCH (07:54)
[2023-02-01 08:08] LABS: Basophils # (auto) 0.03 K/uL (0.00-0.20); Basophils % (auto) 0.6 %; Eosinophils # (auto) 0.19 K/uL (0.00-0.50); Hematocrit (blood only) 28.3 % (42.0-52.0); Hemoglobin 9.4 g/dl (14.0-18.0); Immature Granulocytes # (auto) 0.03 K/uL (0.01-0.20); Immature Granulocytes % (auto) 0.6 %; Lymphocytes # (auto) 1.64 K/uL (1.20-3.40); Lymphocytes % (auto) 34.1 %; Mean Corpuscular Hemoglobin 30.2 pg (25.0-34.0); Mean Corpuscular Hgb Conc 33.2 g/dL (32.0-36.0); Mean Platelet Volume 9.3 fL (9.4-12.4); Monocytes # (auto) 0.36 K/uL (0.11-0.59); Monocytes % (auto) 7.5 %; Neutrophils # (auto) 2.56 K/uL (1.40-6.50); Neutrophils % (auto) 53.2 %; Platelet Count 232 K/uL (130-400); RDW Coefficient of Variation 14.3 % (11.5-14.5); RDW Standard Deviation 47.6 fL (36.4-46.3); Red Blood Count 3.11 M/uL (4.70-6.10); White Blood Count 4.81 K/ul (4.8-10.8)
[2023-02-01 08:30] LABS: BUN Creatinine Ratio 10.1 (10-20); Calcium 7.8 mg/dl (8.6-10.3); Creatinine Clr Calc Pharmacy 31.5 ml/min; Est GFR (African American) 38.6 ml/min; Est GFR (Non-African American) 33.3 ml/min; Potassium 3.5 mmol/L (3.5-5.1)
[2023-02-01] MEDS: INSULIN ASPART PER UNIT CHARGE SC SCH ×2 (08:35→12:40)
[2023-02-01] MEDS: LANTUS PER UNIT CHARGE SQ SCH (08:36)
--- NOTE | 2023-02-01 12:05 | Discharge Summary ---
Date of Service February 01, 2023 Admission HPI Per Admitting Provider Pt is a 87 yo male with a past medical history of CKD Stage 4 (previous admission with [facility]I requiring temporary dialysis), hx DVT, 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 Pt was hard to arouse to interview, he appears very fatigued and is hard of hearing. Can awake to repeat verbal stimuli, but quickly goes back to sleep. Interview was conducted with , who is also his POA if needed; she states that he has not been himself since getting home from the hospital on Monday. She states that he has been very weak and fell on Monday, and at the time she called EMS and had them evaluate him and help pick him up because she was unable to pick him up on her own. She states that Monday night, he had complained of chest pain, but did not want her to take him to the hospital or call EMS. She states that on Monday night he also wanted to see his parents (who are ) and was talking to his brothers (who are also ). She notes he has had episodes of confusion and disorientation before. She then states that earlier today she found him passed out, clammy, and gurgling, and when she checked his sugar it was 31. She states she had given him his 30 units of lantus this morning but that he only ate a little bit of his eggs and toast he had for breakfast. She states he has had poor water intake since leaving the hospital and has not been eating as much. Overall, she states he has not walked on his own since leaving the hospital and she states that prior to the last admission he was able to walk on his own, sometimes without his walker. She states that she is concerned he has sepsis because he complained to her about chills and sweats at home and she noticed when bathing him that he had a sore on his buttock and that he has had large blisters on his legs since getting home from the hospital. She states one of the blisters got very large and popped and states that it drained pus. Principal Diagnosis Bacteremia Discharge Exam Constitutional: well-appearing, no acute distress HEENT: NCAT, no conjunctival injection CV: regular rhythm, no murmur appreciated, extremities well-perfused Resp: CTABL, no wheezes/rales/rhonchi appreciated, no increased work of breathing MSK: no gross deformities appreciated Skin: warm, dry, no rash appreciated Neuro: alert, oriented, no focal neurologic deficit appreciated Skin: dressings in place LE B/L Discharge Data Allergies Allergy/AdvReac Type Severity Reaction Status Date / Time Cephalosporins Allergy Unknown Verified 01/26/23 10:52 ciprofloxacin [From Cipro] AdvReac Severe Unknown Verified 01/06/23 09:15 semaglutide [From Ozempic] AdvReac Severe NAUSEA/VOMI Verified 01/06/23 09:15 TING/ANOREX IA amlodipine AdvReac Intermediate SWELLING Verified 01/06/23 09:15 OF ANKLES ropinirole AdvReac Intermediate CHANGE IN Verified 01/06/23 09:15 MENTAL STATUS silver dressings AdvReac Redness of Uncoded 01/26/23 10:52 Skin Consultations 01/23/23 16:03 Consult Infectious Diseases Routine Ordered Studies 01/20/23 14:50 CT head/brain wo con Stat Hospital Course (1) AMS (altered mental status): Chang is a 87 y/o male with a past medical history of CKD Stage 4 (previous admission with [facility] requiring temporary dialysis), hx DVT, DMT2 on insulin, HTN, hypothyroidism, paroxysmal a fib on Eliquis, CAD, BPH, GERD, CHF who presented with symptomatic hypoglycemia, weakness, and worsened AMS found to have gram positive bacteremia and sepsis. #Gram Positive Bacteremia - likely E. faecalis #Sepsis #AMS Patient met SIRs criteria with tachypnea and hypothermia. 2/2 blood cultures positive for gram positive cocci in chains; likely enterococcus. Site of inf ection is likely via the urinary tract as patient has Lopez in place, although urine culture is negative. Patient with wounds on bilateral legs and the buttock which could also be sites of inoculation. Abx: Vanc and CTX x1 01/20 Ampicillin IV: start date: 01/21, end date: 02/21 (2g q6 hours), last dose in hospital given 1200 02/01 Repeat blood cultures drawn 01/22 positive for Enterococcus. Repeat 01/24 without growth. ID consulted TTE without vegetation, discussed GLO and pt declines. Given that we do not definitive imaging as to whether or not endocarditis is present, tentative plan for 4 weeks IV antibiotics with repeat TTE after 2 weeks. Repeat blood cultures 2-3 days after stopping antibiotics. Has a midline in place. # Goals of Care discussed frequent hospitalizations and desire to try and avoid future. Difficult because he has had good quality of life between stays and good recover from acute illnesses. Palliative care consult-> will plan to see as an OP #Indwelling Lopez Catheter- Resolved Patient had Lopez placed on prior admission as there was initial concern for post-renal kidney injury. Unclear exactly when it was placed. First mentioned in urology note from 01/04. Lopez was to be removed after an outpatient voiding trial on 01/11, but due to extended hospitalization patient missed his Urology appointment and the Lopez remained in place. Patient with likely line associated bacteremia as Lopez has been in place for >10 days. - removed 01/22 and is urinating on his own #Hypoglycemia Patient presented with hypoglycemic (30s) likely in the setting of supratherapeutic Lantus dosing and sepsis. Patient with poor appetite and decreased PO intake. Insulin dosing home regimen of 30 units of Lantus BID and 18 units with meals (2-3x daily). Patient was on steroids during his last admission which played a role in his hyperglycemia and insulin requirement at that time. Plan to d/c on: Lantus 15 units QAM 3 units NovoLog with meals, blood sugar ACHS sliding scale insulin with a correction factor of 45mg/dl/unit #Paroxysmal a fib Was on Eliquis for DVT treatment, given elevated risk of clotting Eliquis was resumed patient received left atrial appendage ligation and pulmonary vein isolation in 2013 Continue Metoprolol #Leg wounds Chronic. Likely in the setting of chronic venous stasis changes and skin breakdown. Will need f/u for wound management. - Will need continued dressing changing and wound management for LE wounds #Thrombocytopenia- Resolved Likely from infectious process. Has slowly been improving. No thrombocytopenia noted on previous admissions. No signs of acute bleeding or consumptive process. #COPD Not on home O2. Continue home albuterol inhaler PRN and scheduled fluticasone propionate-salmeterol. #CKD stage 4 #AIN Previous admission had [facility]I requiring temporary dialysis, no longer on dialysis. Cr improving. Avoid nephrotoxic agents. Strict Is and Os -Cr has been at his baseline #HTN - BPs low initially in ED, now normotensive. - Continue home meds - amlodipine and metoprolol #HFpEF Continue home Bumex- 1mg BID per nephrology #Anxiety - continue home dosing of clonazepam is 1 mg BID (2) Acute UTI (urinary tract infection): (3) Anemia of chronic disease: (4) Anxiety: (5) Chronic kidney disease, stage 4 (severe): (6) CHF (congestive heart failure): (7) GERD (gastroesophageal reflux disease): (8) BPH (benign prostatic hyperplasia): (9) CAD (coronary artery disease): (10) Paroxysmal atrial fibrillation: (11) Dyslipidemia: (12) Hypertension: (13) Hypothyroidism: (14) COPD (chronic obstructive pulmonary disease): (15) Benign prostatic hyperplasia with urinary obstruction: (16) Peripheral vascular disease: (17) Wound of lower extremity: (18) Hypoglycemia due to insulin: (19) Thrombocytopenia: (20) Acidosis: Total Time Total Time Spent Total Time Spent (In Minutes): see attending attestation Discharge Plan Discharge Items Patient Disposition: Transfer Inpatient Rehab Fac Reason For Visit: HYPOGLYCEMIA, WORSENING CONFUSION, WEAKNESS Discharge Diagnosis: Bacteremia Activity: Per Instructions section Non-emergency contact: Primary Care Provider Call non-emergency contact if: you have any medication questions, your symptoms worsen and you have a fever Follow-up/Referrals: Cory Nunez DO [Primary Care Provider] - Zoila Espinoza DNP [Nurse Practitioner] - Diet: Carb Consistent or DM2 Addtl Attending Provider Instructions: Chang is a 87 y/o male with a past medical history of CKD Stage 4 (previous admission with [facility] requiring temporary dialysis), hx DVT, DMT2 on insulin, HTN, hypothyroidism, paroxysmal a fib on Eliquis, CAD, BPH, GERD, CHF who presented with symptomatic hypoglycemia, weakness, and worsened AMS found to have gram positive bacteremia and sepsis. #Gram Positive Bacteremia - likely E. faecalis #Sepsis #AMS Patient met SIRs criteria with tachypnea and hypothermia. 2/2 blood cultures positive for gram positive cocci in chains; likely enterococcus. Site of infection is likely via the urinary tract as patient has Lopez in place, although urine culture is negative. Patient with wounds on bilateral legs and the buttock which could also be sites of inoculation. Abx: Vanc and CTX x1 01/20 Ampicillin IV: start date: 01/21, end date: 02/21 (2g q6 hours), last dose in hospital given 1200 02/01 Repeat blood cultures drawn 01/22 positive for Enterococcus. Repeat 01/24 without growth. ID consulted TTE without vegetation, discussed GLO and pt declines. Given that we do not definitive imaging as to whether or not endocarditis is present, tentative plan for 4 weeks IV antibiotics with repeat TTE after 2 weeks. Repeat blood cultures 2-3 days after stopping antibiotics. Has a midline in place. # Goals of Care discussed frequent hospitalizations and desire to try and avoid future. Difficult because he has had good quality of life between stays and good recover from acute illnesses. Palliative care consult-> will plan to see as an OP #Indwelling Lopez Catheter- Resolved Patient had Lopez placed on prior admission as there was initial concern for post-renal kidney injury. Unclear exactly when it was placed. First mentioned in urology note from 01/04. Lopez was to be removed after an outpatient voiding trial on 01/11, but due to extended hospitalization patient missed his Urology appointment and the Lopez remained in place. Patient with likely line associated bacteremia as Lopez has been in place for >10 days. - removed 01/22 and is urinating on his own #Hypoglycemia Patient presented with hypoglycemic (30s) likely in the setting of supratherapeutic Lantus dosing and sepsis. Patient with poor appetite and decreased PO intake. Insulin dosing home regimen of 30 units of Lantus BID and 18 units with meals (2-3x daily). Patient was on steroids during his last admission which played a role in his hyperglycemia and insulin requirement at that time. Plan to d/c on: Lantus 15 units QAM Novolog 3 units with each meal + sliding scale insulin (correction factor of 45mg/dl/unit for BG > 150) Blood sugar checks ACHS #Paroxysmal a fib Was on Eliquis for DVT treatment, given elevated risk of clotting Eliquis was resumed patient received left atrial appendage ligation and pulmonary vein isolation in 2013 Continue Metoprolol #Leg wounds Chronic. Likely in the setting of chronic venous stasis changes and skin breakdown. Will need f/u for wound management. - Will need continued dressing changing and wound management for LE wounds #Thrombocytopenia- Resolved Likely from infectious process. Has slowly been improving. No thrombocytopenia noted on previous admissions. No signs of acute bleeding or consumptive process. #COPD Not on home O2. Continue home albuterol inhaler PRN and scheduled fluticasone propionate-salmeterol. #CKD stage 4 #AIN Previous admission had [facility]I requiring temporary dialysis, no longer on dialysis. Cr improving. Avoid nephrotoxic agents. Strict Is and Os -Cr has been at his baseline #HTN - BPs low initially in ED, now normotensive. - Continue home meds - amlodipine and metoprolol #HFpEF Continue home Bumex- 1mg BID per nephrology #Anxiety - continue home dosing of clonazepam is 1 mg BID Pending Studies at Discharge: No Stand-Alone Forms: My [facility] Skilled Items Patient informed of condition?: Yes DNR: Yes Discharge Level of Care: Skilled Communicable Disease: No Discharge Prognosis: Stable Lines: US Guided Peripheral IV Urinary Catheter: No Medications and DC Order Prescriptions: New bumetanide 1 mg Tablet 1 mg PO BID@0800,1400 30 Days Qty: 30 0RF ampicillin sodium 2 gram recon soln 2 g IV Q6H Qty: 10 0RF insulin glargine [Lantus U-100 Insulin] 100 unit/mL Solution 15 unit subcut QAM 30 Days Qty: 4.5 0RF insulin aspart U-100 [Novolog U-100 Insulin aspart] 100 unit/mL Solution 3 unit SC TIDWMEAL 30 Days Qty: 2.7 0RF insulin aspart U-100 [Novolog U-100 Insulin aspart] 100 unit/mL solution 1 sliding scale dose subcut USEASDIRECTD Qty: 10 0RF Rx Instructions: - Goal BSG range; 110-140 - Correction factor 45mg/dL/unit - BSGs ACHS Continued levothyroxine 88 mcg tablet 88 mcg PO DAILYBB Qty: 90 albuterol sulfate 90 mcg/actuation HFA aerosol inhaler 2 puffs inhalation Q6H PRN (Reason: shortness of breath or wheezing) potassium chloride 20 mEq tablet extended release 20 meq PO BID Rx Instructions: TAKE THIS MED WHEN TAKING BUMETANIDE. DO NOT TAKE THIS MED IF NOT TAKING BUMETANIDE. finasteride 5 mg tablet 5 mg PO HS gabapentin 100 mg Capsule See Rx Instructions .ROUTE .COMPLEX Rx Instructions: 100 mg orally; TAKE 100 MG QAM, THEN 300 MG QPM. pantoprazole 20 mg tablet,delayed release (DR/EC) 20 mg PO BID aspirin 81 mg Tablet,Delayed Release (Dr/Ec) 81 mg PO DAILY clonazepam 1 mg tablet 1 mg PO BID acetaminophen [Tylenol Extra Strength] 500 mg Tablet 1,000 mg PO Q6H PRN (Reason: PAIN/FEVER) fluticasone propion-salmeterol 500-50 mcg/dose Blister With Device 1 inh INHALATION BID metoprolol tartrate 50 mg Tablet 25 mg PO BID multivitamin with minerals Tablet 1 tab PO DAILY rosuvastatin 20 mg Tablet 20 mg PO HS PreserVision AREDS 2,148 mcg-113 mg-45 mg-17.4mg Tablet 1 tab PO DAILY tiotropium bromide 2.5 mcg/actuation Mist 2 puff INHALATION DAILY tamsulosin [Flomax] 0.4 mg Capsule 0.8 mg PO HS loratadine [Claritin] 10 mg Tablet 10 mg PO DAILY PRN (Reason: Congestion) bacitracin zinc-polymyxin B 500-10,000 unit/gram Ointment 1 applic TOPICAL Q12H PRN (Reason: Wound Care) calcium citrate-vitamin D3 [Calcium Citrate + D] 315 mg-5 mcg (200 unit) Tablet 2 tab PO DAILY Eliquis 5 mg Tablet 2.5 mg PO Q12H amlodipine [Norvasc] 5 mg Tablet 10 mg PO QAM 30 Days Qty: 60 0RF Discontinued bumetanide 2 mg tablet 2 mg PO BID Rx Instructions: TAKES 0800 & 1400 insulin glargine [Lantus Solostar U-100 Insulin] 100 unit/mL (3 mL) insulin pen 30 unit subcut BID diphenhydramine HCl [Benadryl] 25 mg Capsule 25 mg PO BID PRN (Reason: NEEDED ) insulin aspart U-100 [Novolog FlexPen U-100 Insulin] 100 unit/mL (3 mL) insulin pen 15 unit subcut AC PRN (Reason: NEEDED ) Rx Instructions: TAKE PRIOR TO BREAKFAST, LUNCH, & DINNER, IF DO NOT EAT MEAL, DO NOT TAKE INSULIN. Discharge Orders: Discharge Order (Routine); Ordered 02/01/23 Ordered By: Jovana Christian Admission Data Admit Date/Time: 01/20/23 18:56 Attending Provider: Lisa Glover Admit Provider: Darline Carias Primary Care Provider: Cory Nunez Other Providers: Rodríguez Varghese ; [facility] ; [facility] ; Alisa Flowers ; Patrick Michaels ; Rianna Horowitz ; Lauren Berman ; Latasha Franco ; Sanam Manzano ; Tess Dutton ; Constantino Hanson ; Ann Conroy ; Alexandru Harrell Other Interventions: Discharge Summary Assessment (RN) Last Done: 02/01/23 12:19 Supervising Physician Co-Signing Physician Notes I personally examined the patient and verified aguayo points of history and exam, discussed case, and agree with decision making and plan documented by Dr. Christian. IV ampicillin course to complete 02/21/23, recommended repeat blood cultures 2-3 days following end of antibiotic course. Discussed importance of physical therapy for conditioning, patient's goal is to return home. Resident Activity Tracking Resident Involvement: Resident Care Provided Care Provided: Adult Hospital Medicine
== END 2023-02-01 13:11 | DRG 871 ==
LOC: ED 14:42 → 2S 18:56 → SUATTDRO 18:56 → 2S 20:20 → 2N 01-26 19:03

== ENCOUNTER 2023-03-18 19:38 | Inpatient (IN) ==
[2023-03-18] MEDS ORDERED: SODIUM CHLORIDE 0.9% 500 ML IV ONE ×3 (19:49→22:57)
[2023-03-18] MEDS ORDERED: PIPERACILLIN/TAZOBACTAM 4.5 GM/100 ML BAG IV ONE (20:03)
--- NOTE | 2023-03-18 20:14 | Emergency Department Note ---
Impression & Plan Acute pyelonephritis, Sepsis, JUDI (acute kidney injury), Elevated troponin I level ED Provider Note NAME: BRIAN NEWMAN AGE: 87 SEX: M : 1935 ARRIVES VIA: Walk-In INFORMANT: Patient, The patient's family member ED PROVIDER(S): Dallin Joaquin DO CHIEF COMPLAINT: Sepsis HPI: The patient is an 87-year-old male who presented to the emergency department with his family member for an evaluation of low blood pressure. The patient has a history of urosepsis in the past. He was in our hospital approximately 1 month ago for similar complaints. The patient has multiple allergies to medications because they affected his kidney adversely. The patient had an episode today where he became very weak. He fell to the ground. He was incontinent of urine. The patient throughout the day had his become much worse. He is had chills and fever. He was noted to have a very low blood pressure so he came to the emergency department this evening for further evaluation. There is been no chest pain at this time. He does complain of jeremy ulder pain after the fall. He denies having any head injury headache or striking his head with the fall. ROS: See above HPI for pertinent positives & negatives. A total of 10 systems reviewed and were otherwise negative. PAST MEDICAL HISTORY: See Below PAST SURGICAL HISTORY: See Below FAMILY HISTORY: See Below SOCIAL HISTORY: See Below HOME MEDICATIONS: See Below ALLERGIES: See Below VITALS: See Below PHYSICAL EXAMINATION: GENERAL: The patient is awake but somewhat listless. He does not appear to be in pain. EYES: The conjunctivae are clear. The pupils are round and reactive. EARS, NOSE, MOUTH AND THROAT: The nose is without any evidence of any deformity. Mucous membranes are dry. NECK: The neck is nontender and supple. RESPIRATORY: Diminished breath sounds were noted in the right lung field with rales. CARDIOVASCULAR: Regular rate and rhythm was noted to auscultation. Systolic murmur was suggested. GASTROINTESTINAL: The abdomen is soft. Abdomen is nontender. MUSCULOSKELETAL/EXTREMITIES: There is no evidence of gross deformity full range of motion is noted in the hips and shoulders. SKIN: Pedal edema was noted bilaterally. There is ecchymosis over the left forearm. NEUROLOGIC: Patient is awake and oriented x3 MEDICAL DECISION MAKING: The patient is an 87-year-old male who presented to the emergency department for evaluation of low blood pressure. The patient has a history of frequent urinary tract infections in the past. He was admitted to our facility for sepsis in the past. He was treated with IV fluids and IV antibiotics upon arrival. His blood pressure did start to improve while in the emergency department. His mental status is normal at this time. I discussed the patient's laboratory and radiographic studies with him. He was treated with a fluid bolus although he was starting to have signs of volume overload so he was not giving a full sepsis fluid bolus at this time. I [facility] the [facility] have agreed to evaluate the patient in the emergency department for further management and disposition. The patient was treated with antibiotics based on his previous urine culture as well as his antibiotic allergy list. Triage Nursing notes reviewed. Prior medical records reviewed Vital Signs: reviewed and remarkable for hypotension and bradycardia. Differential diagnosis: Sepsis, UTI, pneumonia, metabolic, electrolyte abnormalities, cardiac sources, intracerebral event, toxicologic, neurologic, as well as other pathologies. ER treatment provided: See below Diagnostics interpreted by me: ECG: EKG was obtained in the emergency department. My interpretation is sinus rhythm at 67 bpm. Right bundle branch block pattern was noted. LVH was suggested. This was compared to a tracing from January 20, 2023. No changes were noted. Cardiac Monitoring: An order was placed for continuous cardiac monitoring. The monitor shows a rate of 56 bpm with sinus bradycardia. Laboratory studies: As stated above and show below. Imaging studies: See below. Radiographic imaging was reviewed by myself Consultation(s): I discussed this case with Dr. Gaitan who [facility] ED COURSE: Procedures: none Critical Care: I have personally spent greater than 45 minutes of critical care time in the direct management of this patient. This includes bedside care, interpretation of diagnostic studies, and testing, discussion with consultants, patient, and family members, and other required patient management activities. This 45 minutes is in excess of all separately billable procedures. Past Med/Surg History Medical History Acidosis Acute hyperkalemia Acute hyponatremia Acute kidney injury Acute renal failure Acute UTI (urinary tract infection) Acute UTI (urinary tract infection) [id number] kidney injury AMS (altered mental status) AMS (altered mental status) Anemia of chronic disease Anxiety Aortic stenosis Mild per 03/06/19 stress ECHO Asthma Uses rescue inhaler a couple times per week Atrial fibrillation Follows with Dr. Gr Bacteremia Blindness of left eye Bradycardia CAD (coronary artery disease) Angioplasty ~1993, CABG x 3 2013 (GALINDO to LAD, SVG to PDA, SVG to OM) Cellulitis CHF (congestive heart failure) Chronic kidney disease Follows with Dr. Dixon Chronic obstructive pulmonary disease Diabetes Type 2 IDDM Diabetic infection of right foot Fluid overload Foot ulcer GERD (gastroesophageal reflux disease) Headache Herpes zoster Hiatal hernia History of deep venous thrombosis (DVT) of distal vein of left lower extremity Hyperkalemia Hyperlipidemia Hyperosmolar hyperglycemic state (HHS) Hypertension Hypoglycemia Hypoglycemia due to insulin Hypothyroidism Leukocytosis Macular degeneration Mild aortic stenosis Myocardial infarct ~1993 Non-ST elevation NE (NSTEMI) Peripheral neuropathy Pneumonia Respiratory failure Rupture of left distal biceps tendon hx - no surgery Secondary hyperparathyroidism (of renal origin) Sepsis Thrombocytopenia UTI (urinary tract infection) UTI (urinary tract infection) Surgical History Fusion of spine lumbar History of appendectomy History of cardiac cath with angioplasty ~1993 ([facility]) & 2013 ([facility]) History of cataract surgery bilateral History of coronary artery bypass graft x3 vessels ([facility] 2013) with epicardial RFA of pulmonary veins and left atrial appendage ligation History of revision of total replacement of right knee joint History of tonsillectomy History of tooth extraction History of total left knee replacement History of total right knee replacement Hx of colonoscopy Previous back surgery (08/26/12) S/P cholecystectomy Family History Brother Heart disease Diabetes Sister Cancer Mother Diabetes Father Diabetes Other Hypertension Kidney disease Social History Smoking Status: Never smoker Tobacco Type: Cigarettes Second Hand Exposure: No; Do You Dip or Chew Tobacco: No; Hx Alcohol Use: No Hx Substance Use: No Preferred Language: Malay Communication Ability: Effective Visual Impairment: Partially Limited 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 Beliefs That Will Affect Care: None marital status: Current Living Situation: Spouse Current Living Situation Comment: lives at home with current occupational status: retired Feels Safe at Home: Yes Assistive Devices: Bedside Commode, Scooter/Electric Scooter, Walker, Wheelchair and Other Allergies Allergies Allergy/AdvReac Type Severity Reaction Status Date / Time Cephalosporins Allergy Unknown Verified 02/22/23 14:56 ciprofloxacin [From Cipro] AdvReac Severe Unknown Verified 02/22/23 14:56 semaglutide [From Ozempic] AdvReac Severe NAUSEA/VOMI Verified 02/22/23 14:56 TING/ANOREX IA amlodipine AdvReac Intermediate SWELLING Verified 02/22/23 14:56 OF ANKLES ropinirole AdvReac Intermediate CHANGE IN Verified 02/22/23 14:56 MENTAL STATUS silver dressings AdvReac Redness of Uncoded 02/22/23 14:56 Skin Home Meds Home Medications Medication Instructions Recorded Confirmed albuterol sulfate 90 mcg/actuation 2 puffs inhalation Q6H PRN 01/10/19 02/22/23 aerosol inhaler shortness of breath or wheezing levothyroxine 88 mcg tablet 88 mcg PO DAILYBB #90 tabs 01/10/19 02/22/23 potassium chloride 20 mEq 20 meq PO BID 01/10/19 02/22/23 tablet,extended release finasteride 5 mg tablet 5 mg PO HS 04/23/19 02/22/23 gabapentin 100 mg capsule See Rx Instructions .Route .COMPLEX 12/16/20 02/22/23 aspirin 81 mg tablet,delayed 81 mg PO DAILY 10/11/21 02/22/23 release pantoprazole 20 mg tablet,delayed 20 mg PO BID 02/07/22 02/22/23 release acetaminophen 500 mg tablet 1,000 mg PO Q6H PRN PAIN/FEVER 05/28/22 02/22/23 (Tylenol Extra Strength) clonazepam 1 mg tablet 1 mg PO BID 05/28/22 02/22/23 fluticasone 500 mcg-salmeterol 50 1 inh inhalation BID 05/28/22 02/22/23 mcg/dose blistr powdr for inhalation metoprolol tartrate 50 mg tablet 25 mg PO BID 05/28/22 02/22/23 multivitamin with minerals 1 tab PO DAILY 05/28/22 02/22/23 rosuvastatin 20 mg tablet 20 mg PO HS 05/28/22 02/22/23 tiotropium bromide 2.5 2 puff inhalation DAILY 05/28/22 02/22/23 mcg/actuation mist for inhalation vitamins A,C,S-jhtg-hockif 2,148 1 tab PO DAILY 05/28/22 02/22/23 mcg-113 mg-45 mg-17.4 mg tablet (PreserVision AREDS) apixaban 5 mg tablet (Eliquis) 2.5 mg PO Q12H 12/29/22 02/22/23 bacitracin zinc 500 unit-polymyxin 1 applic topical Q12H PRN Wound 12/29/22 02/22/23 B 10,000 unit/gram topical ointment Care calcium citrate 315 mg-vitamin D3 2 tab PO DAILY 12/29/22 02/22/23 5 mcg (200 unit) tablet (Calcium Citrate + D) loratadine 10 mg tablet (Claritin) 10 mg PO DAILY PRN Congestion 12/29/22 02/22/23 tamsulosin 0.4 mg capsule (Flomax) 0.8 mg PO HS 12/29/22 02/22/23 Previous Rx's Medication Instructions Recorded insulin aspart U-100 100 unit/mL 1 sliding scale dose subcut 02/01/23 subcutaneous solution (Novolog USEASDIRECTD #10 mL U-100 Insulin aspart) fosfomycin tromethamine 3 gram 1 packet PO ONCE 1 day #1 ea 02/24/23 oral packet Results & Data (ED) Vital Signs Vital Signs - 24 hr 03/18/23 19:42 03/18/23 19:53 03/18/23 20:53 Temperature 36.6 C Temperature Source Temporal Artery Scan Pulse Rate 73 66 62 Pulse Rhythm Regular Respiratory Rate 18 20 Respiratory Effort / Characteristics Non-Labored Spontaneous Respiratory Depth Normal Respiratory Pattern Regular Blood Pressure 74/44 L Blood Pressure Mean 54 Blood Pressure Position Sitting Pulse Oximetry 97 92 Oxygen Delivery Method Room Air Room Air Oxygen Flow Rate Sepsis Recent Fever Within 48 Hours No Sepsis New/Unexplained Change in Mental Status N/A Sepsis Action Taken by Nursing Physician Notified 03/18/23 20:00 03/18/23 20:30 03/18/23 21:00 Temperature Temperature Source Pulse Rate 66 61 61 Pulse Rhythm Respiratory Rate 22 20 21 Respiratory Effort / Characteristics Respiratory Depth Respiratory Pattern Blood Pressure 98/45 L 94/44 L 101/45 L Blood Pressure Mean 62 60 63 Blood Pressure Position Pulse Oximetry 93 93 94 Oxygen Delivery Method Oxygen Flow Rate Sepsis Recent Fever Within 48 Hours Sepsis New/Unexplained Change in Mental Status Sepsis Action Taken by Nursing 03/18/23 21:15 03/18/23 21:30 03/18/23 21:40 Temperature Temperature Source Pulse Rate 59 L 60 Pulse Rhythm Respiratory Rate 20 19 Respiratory Effort / Characteristics Respiratory Depth Respiratory Pattern Blood Pressure 95/45 L 90/43 L Blood Pressure Mean 61 58 Blood Pressure Position Pulse Oximetry 90 93 89 L Oxygen Delivery Method Room Air Room Air Oxygen Flow Rate Sepsis Recent Fever Within 48 Hours Sepsis New/Unexplained Change in Mental Status Sepsis Action Taken by Nursing 03/18/23 21:44 03/18/23 21:45 03/18/23 22:00 Temperature Temperature Source Pulse Rate 58 L 58 L Pulse Rhythm Respiratory Rate 18 17 Respiratory Effort / Characteristics Respiratory Depth Respiratory Pattern Blood Pressure 87/42 L 93/53 L Blood Pressure Mean 57 66 Blood Pressure Position Pulse Oximetry 97 94 97 Oxygen Delivery Method Nasal Cannula Nasal Cannula Oxygen Flow Rate 2 2 Sepsis Recent Fever Within 48 Hours Sepsis New/Unexplained Change in Mental Status Sepsis Action Taken by Nursing 03/18/23 22:15 03/18/23 22:30 03/18/23 22:45 Temperature Temperature Source Pulse Rate 64 60 56 L Pulse Rhythm Respiratory Rate 20 17 16 Respiratory Effort / Characteristics Respiratory Depth Respiratory Pattern Blood Pressure 125/58 L 120/52 L 107/48 L Blood Pressure Mean 80 74 67 Blood Pressure Position Pulse Oximetry 96 98 97 Oxygen Delivery Method Oxygen Flow Rate Sepsis Recent Fever Within 48 Hours Sepsis New/Unexplained Change in Mental Status Sepsis Action Taken by Shelter Medications Current Medication List: was personally reviewed by me Laboratory Data Attestation: I reviewed the patient's lab results. 03/18/23 20:17 03/18/23 20:17 Lab Results 03/18/23 03/18/23 03/18/23 Range/Units 20:17 20:17 20:17 WBC 16.84 H (4.8-10.8) K/ul RBC 3.25 L (4.70-6.10) M/uL Hgb 10.0 L (14.0-18.0) g/dl Hct 29.8 L (42.0-52.0) % MCV 91.7 (80.0-100.0) fL MCH 30.8 (25.0-34.0) pg MCHC 33.6 (32.0-36.0) g/dL RDW Std Deviation 51.2 H (36.4-46.3) fL RDW Coeff of Adrian 15.2 H (11.5-14.5) % Plt Count 150 (130-400) K/uL MPV 9.7 (9.4-12.4) fL Immature Gran % (Auto) 0.5 % Neut % (Auto) 81.7 % Lymph % (Auto) 12.3 % [place] % (Auto) 5.2 % Eos % (Auto) 0.1 % Baso % (Auto) 0.2 % Neut # (Auto) 13.77 H (1.40-6.50) K/uL Lymph # (Auto) 2.07 (1.20-3.40) K/uL [place] # (Auto) 0.87 H (0.11-0.59) K/uL Eos # (Auto) 0.01 (0.00-0.50) K/uL Baso # (Auto) 0.03 (0.00-0.20) K/uL Immature Gran # (Auto) 0.09 (0.01-0.20) K/uL PT 11.7 (9.0-12.0) Seconds INR 1.1 (0.9-1.1) APTT 22.2 (21.0-31.0) Seconds PTT Ratio 0.8 VBG pH (7.36-7.41) VBG pCO2 (38-50) mmHg VBG pO2 mmHg VBG HCO3 mmol/L VBG O2 Saturation % VBG Base Excess mEq/L Sodium 135 L (136-145) mmol/L Potassium 4.8 (3.5-5.1) mmol/L Chloride 101 (98-107) mmol/L Carbon Dioxide 28 (21-32) mmol/L Anion Gap 6 (3-11) BUN 45 H (6-23) mg/dl Creatinine 2.90 H (0.6-1.4) mg/dl Est Cr Clr Drug Dosing 22.1 ml/min Est GFR ( Amer) 21.6 ml/min Est GFR (Non-Af Amer) 18.6 ml/min BUN/Creatinine Ratio 15.5 (10-20) Glucose 159 H (70-99(Fasting)) mg/dl Lactate (0.4-2.0) mmol/L Calcium 9.0 (8.6-10.3) mg/dl Magnesium 1.9 (1.7-2.4) mg/dl Total Bilirubin 0.6 (0.2-1.0) mg/dl Direct Bilirubin 0.2 (0-0.2) mg/dl AST 27 (13-39) U/L ALT 14 (7-52) U/L Alkaline Phosphatase 104 (34-104) U/L Troponin I High Sens 72.0 H* (0-20) pg/ml Total Protein 6.5 (6.0-8.3) gm/dl Albumin 3.2 L (3.4-5.0) gm/dl Procalcitonin (0-0.5) ng/ml Urine Color Urine Appearance (Clear) Urine pH (4.5-7.5) Ur Specific [place] (1.000-1.030) Urine Protein (Negative) Urine Glucose (UA) (Negative) Urine Ketones (Negative) Urine Blood (Negative) Urine Nitrite (Negative) Urine Bilirubin (Negative) Urine Urobilinogen (Negative) Ur Leukocyte Esterase (Negative) Urine WBC (Auto) (0-5) /hpf Urine RBC (Auto) (0-4) /hpf U Hyaline Cast (Auto) (0-5) /lpf U Epithel Cells (Auto) (0-5) /lpf Urine Bacteria (Auto) (Negative) Adenovirus (PCR) (NotDetected) B. pertussis DNA (PCR) (NotDetected) B.parapertussis DNA PCR (NotDetected) C. pneumoniae DNA (PCR) (NotDetected) Coronavirus OC43 (PCR) (NotDetected) Coronavirus HKU1 (PCR) (NotDetected) Coronavirus 229E (PCR) (NotDetected) SARS-CoV-2 (PCR) (NotDetected) Coronavirus NL63 (PCR) (NotDetected) Human Metapneumovir PCR (NotDetected) Influenza Type A (PCR) (NotDetected) Influenza Type B (PCR) (NotDetected) M. pneumoniae (PCR) (NotDetected) Parainfluenza 1 (PCR) (NotDetected) Parainfluenza 2 (PCR) (NotDetected) Parainfluenza 3 (PCR) (NotDetected) Parainfluenza 4 (PCR) (NotDetected) RSV (PCR) (NotDetected) Entero/Rhino (PCR) (NotDetected) 03/18/23 03/18/23 03/18/23 Range/Units 20:17 20:17 20:55 WBC (4.8-10.8) K/ul RBC (4.70-6.10) M/uL Hgb (14.0-18.0) g/dl Hct (42.0-52.0) % MCV (80.0-100.0) fL MCH (25.0-34.0) pg MCHC (32.0-36.0) g/dL RDW Std Deviation (36.4-46.3) fL RDW Coeff of Adrian (11.5-14.5) % Plt Count (130-400) K/uL MPV (9.4-12.4) fL Immature Gran % (Auto) % Neut % (Auto) % Lymph % (Auto) % [place] % (Auto) % Eos % (Auto) % Baso % (Auto) % Neut # (Auto) (1.40-6.50) K/uL Lymph # (Auto) (1.20-3.40) K/uL [place] # (Auto) (0.11-0.59) K/uL Eos # (Auto) (0.00-0.50) K/uL Baso # (Auto) (0.00-0.20) K/uL Immature Gran # (Auto) (0.01-0.20) K/uL PT (9.0-12.0) Seconds INR (0.9-1.1) APTT (21.0-31.0) Seconds PTT Ratio VBG pH 7.37 (7.36-7.41) VBG pCO2 44 (38-50) mmHg VBG pO2 41 mmHg VBG HCO3 25 mmol/L VBG O2 Saturation 68.0 % VBG Base Excess -0.2 mEq/L Sodium (136-145) mmol/L Potassium (3.5-5.1) mmol/L Chloride (98-107) mmol/L Carbon Dioxide (21-32) mmol/L Anion Gap (3-11) BUN (6-23) mg/dl Creatinine (0.6-1.4) mg/dl Est Cr Clr Drug Dosing ml/min Est GFR ( Amer) ml/min Est GFR (Non-Af Amer) ml/min BUN/Creatinine Ratio (10-20) Glucose (70-99(Fasting)) mg/dl Lactate 2.4 H* (0.4-2.0) mmol/L Calcium (8.6-10.3) mg/dl Magnesium (1.7-2.4) mg/dl Total Bilirubin (0.2-1.0) mg/dl Direct Bilirubin (0-0.2) mg/dl AST (13-39) U/L ALT (7-52) U/L Alkaline Phosphatase (34-104) U/L Troponin I High Sens (0-20) pg/ml Total Protein (6.0-8.3) gm/dl Albumin (3.4-5.0) gm/dl Procalcitonin 28.51 H (0-0.5) ng/ml Urine Color Urine Appearance (Clear) Urine pH (4.5-7.5) Ur Specific [place] (1.000-1.030) Urine Protein (Negative) Urine Glucose (UA) (Negative) Urine Ketones (Negative) Urine Blood (Negative) Urine Nitrite (Negative) Urine Bilirubin (Negative) Urine Urobilinogen (Negative) Ur Leukocyte Esterase (Negative) Urine WBC (Auto) (0-5) /hpf Urine RBC (Auto) (0-4) /hpf U Hyaline Cast (Auto) (0-5) /lpf U Epithel Cells (Auto) (0-5) /lpf Urine Bacteria (Auto) (Negative) Adenovirus (PCR) (NotDetected) B. pertussis DNA (PCR) (NotDetected) B.parapertussis DNA PCR (NotDetected) C. pneumoniae DNA (PCR) (NotDetected) Coronavirus OC43 (PCR) (NotDetected) Coronavirus HKU1 (PCR) (NotDetected) Coronavirus 229E (PCR) (NotDetected) SARS-CoV-2 (PCR) (NotDetected) Coronavirus NL63 (PCR) (NotDetected) Human Metapneumovir PCR (NotDetected) Influenza Type A (PCR) (NotDetected) Influenza Type B (PCR) (NotDetected) M. pneumoniae (PCR) (NotDetected) Parainfluenza 1 (PCR) (NotDetected) Parainfluenza 2 (PCR) (NotDetected) Parainfluenza 3 (PCR) (NotDetected) Parainfluenza 4 (PCR) (NotDetected) RSV (PCR) (NotDetected) Entero/Rhino (PCR) (NotDetected) 03/18/23 03/18/23 03/18/23 Range/Units 20:55 22:30 22:44 WBC (4.8-10.8) K/ul RBC (4.70-6.10) M/uL Hgb (14.0-18.0) g/dl Hct (42.0-52.0) % MCV (80.0-100.0) fL MCH (25.0-34.0) pg MCHC (32.0-36.0) g/dL RDW Std Deviation (36.4-46.3) fL RDW Coeff of Adrian (11.5-14.5) % Plt Count (130-400) K/uL MPV (9.4-12.4) fL Immature Gran % (Auto) % Neut % (Auto) % Lymph % (Auto) % [place] % (Auto) % Eos % (Auto) % Baso % (Auto) % Neut # (Auto) (1.40-6.50) K/uL Lymph # (Auto) (1.20-3.40) K/uL [place] # (Auto) (0.11-0.59) K/uL Eos # (Auto) (0.00-0.50) K/uL Baso # (Auto) (0.00-0.20) K/uL Immature Gran # (Auto) (0.01-0.20) K/uL PT (9.0-12.0) Seconds INR (0.9-1.1) APTT (21.0-31.0) Seconds PTT Ratio VBG pH (7.36-7.41) VBG pCO2 (38-50) mmHg VBG pO2 mmHg VBG HCO3 mmol/L VBG O2 Saturation % VBG Base Excess mEq/L Sodium (136-145) mmol/L Potassium (3.5-5.1) mmol/L Chloride (98-107) mmol/L Carbon Dioxide (21-32) mmol/L Anion Gap (3-11) BUN (6-23) mg/dl Creatinine (0.6-1.4) mg/dl Est Cr Clr Drug Dosing ml/min Est GFR ( Amer) ml/min Est GFR (Non-Af Amer) ml/min BUN/Creatinine Ratio (10-20) Glucose (70-99(Fasting)) mg/dl Lactate 1.6 (0.4-2.0) mmol/L Calcium (8.6-10.3) mg/dl Magnesium (1.7-2.4) mg/dl Total Bilirubin (0.2-1.0) mg/dl Direct Bilirubin (0-0.2) mg/dl AST (13-39) U/L ALT (7-52) U/L Alkaline Phosphatase (34-104) U/L Troponin I High Sens (0-20) pg/ml Total Protein (6.0-8.3) gm/dl Albumin (3.4-5.0) gm/dl Procalcitonin (0-0.5) ng/ml Urine Color Yellow Urine Appearance Clear (Clear) Urine pH 7.5 (4.5-7.5) Ur Specific [place] 1.013 (1.000-1.030) Urine Protein 3+ H (Negative) Urine Glucose (UA) Negative (Negative) Urine Ketones Negative (Negative) Urine Blood Negative (Negative) Urine Nitrite Negative (Negative) Urine Bilirubin Negative (Negative) Urine Urobilinogen Negative (Negative) Ur Leukocyte Esterase Negative (Negative) Urine WBC (Auto) 1-5 (0-5) /hpf Urine RBC (Auto) 0-4 (0-4) /hpf U Hyaline Cast (Auto) 10-30 H (0-5) /lpf U Epithel Cells (Auto) 10-20 H (0-5) /lpf Urine Bacteria (Auto) Negative (Negative) Adenovirus (PCR) Not Detected (NotDetected) B. pertussis DNA (PCR) Not Detected (NotDetected) B.parapertussis DNA PCR Not Detected (NotDetected) C. pneumoniae DNA (PCR) Not Detected (NotDetected) Coronavirus OC43 (PCR) Not Detected (NotDetected) Coronavirus HKU1 (PCR) Not Detected (NotDetected) Coronavirus 229E (PCR) Not Detected (NotDetected) SARS-CoV-2 (PCR) Not Detected (NotDetected) Coronavirus NL63 (PCR) Not Detected (NotDetected) Human Metapneumovir PCR Not Detected (NotDetected) Influenza Type A (PCR) Not Detected (NotDetected) Influenza Type B (PCR) Not Detected (NotDetected) M. pneumoniae (PCR) Not Detected (NotDetected) Parainfluenza 1 (PCR) Not Detected (NotDetected) Parainfluenza 2 (PCR) Not Detected (NotDetected) Parainfluenza 3 (PCR) Not Detected (NotDetected) Parainfluenza 4 (PCR) Not Detected (NotDetected) RSV (PCR) Not Detected (NotDetected) Entero/Rhino (PCR) Not Detected (NotDetected) Administered Medications Discontinued Medications Sodium Chloride (Nss) 500 mls @ 999 mls/hr IV .Q31M ONE Stop: 03/18/23 20:19 Last Infusion: 03/18/23 21:42 Dose: 0 mls/hr Documented By: Admin: 03/18/23 20:39 Dose: 999 mls/hr Documented By: LEILA Piperacillin Sod/Tazobactam Sod (Zosyn) 4.5 gm in 100 mls @ 200 mls/hr IV NOW ONE Stop: 03/18/23 20:32 Last Infusion: 03/18/23 21:42 Dose: 0 mls/hr Documented By: Admin: 03/18/23 20:59 Dose: 200 mls/hr Documented By: SHAYLEE Imaging Data Attestation: I personally reviewed and interpreted this imaging study as follows: My Impression: X-ray of the right and left shoulder was obtained in the emergency department. My interpretation is no definite fracture or dislocation, final report pending. X-ray of the left forearm was obtained in the emergency department. My interpretation is no definite fracture, final report pending. 1 view chest x-ray was obtained in the emergency department. My interpretation is no definite infiltrate, cardiomegaly was noted, final report pending. CT of the abdomen and pelvis was obtained in the emergency department. My interpretation is stranding about both kidneys, thickened urinary bladder, no fr ee air, final report pending. Discharge Plan Visit Data Chief Complaint: Hypotension Stated Complaint: HYPOTENSION, SHAKING ED Provider: Dallin Joaquin Discharge Problem: Acute pyelonephritis, Sepsis, JUDI (acute kidney injury), Elevated troponin I level Patient Disposition: Being Evaluated by Hospitalist Forms Stand Alone Forms: My [facility] Prescriptions Prescriptions: No Action fosfomycin tromethamine 3 gram packet 1 packet PO ONCE 1 Days Qty: 1 0RF levothyroxine 88 mcg tablet 88 mcg PO DAILYBB Qty: 90 albuterol sulfate 90 mcg/actuation HFA aerosol inhaler 2 puffs inhalation Q6H PRN (Reason: shortness of breath or wheezing) potassium chloride 20 mEq tablet extended release 20 meq PO BID Rx Instructions: TAKE THIS MED WHEN TAKING BUMETANIDE. DO NOT TAKE THIS MED IF NOT TAKING BUMETANIDE. finasteride 5 mg tablet 5 mg PO HS gabapentin 100 mg Capsule See Rx Instructions .ROUTE .COMPLEX Rx Instructions: 100 mg orally; TAKE 100 MG QAM, THEN 300 MG QPM. pantoprazole 20 mg tablet,delayed release (DR/EC) 20 mg PO BID aspirin 81 mg Tablet,Delayed Release (Dr/Ec) 81 mg PO DAILY clonazepam 1 mg tablet 1 mg PO BID acetaminophen [Tylenol Extra Strength] 500 mg Tablet 1,000 mg PO Q6H PRN (Reason: PAIN/FEVER) fluticasone propion-salmeterol 500-50 mcg/dose Blister With Device 1 inh INHALATION BID metoprolol tartrate 50 mg Tablet 25 mg PO BID multivitamin with minerals Tablet 1 tab PO DAILY rosuvastatin 20 mg Tablet 20 mg PO HS PreserVision AREDS 2,148 mcg-113 mg-45 mg-17.4mg Tablet 1 tab PO DAILY tiotropium bromide 2.5 mcg/actuation Mist 2 puff INHALATION DAILY tamsulosin [Flomax] 0.4 mg Capsule 0.8 mg PO HS loratadine [Claritin] 10 mg Tablet 10 mg PO DAILY PRN (Reason: Congestion) bacitracin zinc-polymyxin B 500-10,000 unit/gram Ointment 1 applic TOPICAL Q12H PRN (Reason: Wound Care) calcium citrate-vitamin D3 [Calcium Citrate + D] 315 mg-5 mcg (200 unit) Tablet 2 tab PO DAILY Eliquis 5 mg Tablet 2.5 mg PO Q12H insulin aspart U-100 [Novolog U-100 Insulin aspart] 100 unit/mL solution 1 sliding scale dose subcut USEASDIRECTD Qty: 10 0RF Rx Instructions: - Goal BSG range; 110-140 - Correction factor 45mg/dL/unit - BSGs ACHS Referrals Referrals: Cory Nunez DO [Primary Care Provider] - Sepsis Qualifiers: Sepsis type: sepsis due to unspecified organism Sepsis acute organ dysfunction status: unspecified Qualified Code(s): A41.9 - Sepsis, unspecified organism
[2023-03-18 20:34] LABS: Basophils # (auto) 0.03 K/uL (0.00-0.20); Basophils % (auto) 0.2 %; Eosinophils # (auto) 0.01 K/uL (0.00-0.50); Eosinophils % (auto) 0.1 %; Hematocrit (blood only) 29.8 % (42.0-52.0); Immature Granulocytes # (auto) 0.09 K/uL (0.01-0.20); Immature Granulocytes % (auto) 0.5 %; Lymphocytes # (auto) 2.07 K/uL (1.20-3.40); Lymphocytes % (auto) 12.3 %; Mean Corpuscular Hemoglobin 30.8 pg (25.0-34.0); Mean Corpuscular Hgb Conc 33.6 g/dL (32.0-36.0); Mean Corpuscular Volume 91.7 fL (80.0-100.0); Mean Platelet Volume 9.7 fL (9.4-12.4); Monocytes # (auto) 0.87 K/uL (0.11-0.59); Monocytes % (auto) 5.2 %; Neutrophils # (auto) 13.77 K/uL (1.40-6.50); Neutrophils % (auto) 81.7 %; Platelet Count 150 K/uL (130-400); RDW Coefficient of Variation 15.2 % (11.5-14.5); RDW Standard Deviation 51.2 fL (36.4-46.3); Red Blood Count 3.25 M/uL (4.70-6.10); White Blood Count 16.84 K/ul (4.8-10.8)
[2023-03-18 21:02] LABS: Albumin Level 3.2 gm/dl (3.4-5.0); BUN Creatinine Ratio 15.5 (10-20); Bilirubin Direct 0.2 mg/dl (0-0.2); Bilirubin,Total 0.6 mg/dl (0.2-1.0); Creatinine Clr Calc Pharmacy 22.1 ml/min; Est GFR (African American) 21.6 ml/min; Est GFR (Non-African American) 18.6 ml/min; Magnesium 1.9 mg/dl (1.7-2.4); Potassium 4.8 mmol/L (3.5-5.1); Total Protein 6.5 gm/dl (6.0-8.3)
[2023-03-18 21:06] LABS: Base Excess VBG -0.2 mEq/L; HCO3 VBG 25 mmol/L; PCO2 VBG 44 mmHg (38-50); PO2 VBG 41 mmHg; pH VBG 7.37 (7.36-7.41)
[2023-03-18 21:12] LABS: INR 1.1 (0.9-1.1); Partial Thromboplastin Ratio 0.8; Partial Thromboplastin Time 22.2 Seconds (21.0-31.0); Prothrombin Time 11.7 Seconds (9.0-12.0)
[2023-03-18 22:23] LABS: Adenovirus PCR Not Detected (NotDetected); Bordetella parapertussis PCR Not Detected (NotDetected); Bordetella pertussis PCR Not Detected (NotDetected); Chlamydia pneumoniae PCR Not Detected (NotDetected); Coronavirus 229E PCR Not Detected (NotDetected); Coronavirus CoV-2 (COVID19)PCR Not Detected (NotDetected); Coronavirus HKU1 PCR Not Detected (NotDetected); Coronavirus NL63 PCR Not Detected (NotDetected); Coronavirus OC43PCR Not Detected (NotDetected); Human Metapneumovirus PCR Not Detected (NotDetected); Influenza A PCR Not Detected (NotDetected); Influenza B PCR Not Detected (NotDetected); Mycoplasma pneumoniae PCR Not Detected (NotDetected); Parainfluenza Virus 1 PCR Not Detected (NotDetected); Parainfluenza Virus 2 PCR Not Detected (NotDetected); Parainfluenza Virus 3 PCR Not Detected (NotDetected); Parainfluenza Virus 4 PCR Not Detected (NotDetected); Respiratory Syncytial VirusPCR Not Detected (NotDetected); Rhinovirus/Enterovirus PCR Not Detected (NotDetected)
[2023-03-18 22:50] LABS: Appearance Urine Clear (Clear); Bacteria Urine Automated Negative (Negative); Bilirubin Urine Negative (Negative); Blood Urine Negative (Negative); Color Urine Yellow; Glucose Urine UA Negative (Negative); Ketones Urine Negative (Negative); Leukocyte Esterase Urine Negative (Negative); Nitrite Urine Negative (Negative); RBC Urine Automated 0-4 /hpf (0-4); Specific Gravity Urine 1.013 (1.000-1.030); Urobilinogen Urine Negative (Negative); pH Urine 7.5 (4.5-7.5)
[2023-03-18 22:51] LABS: Protein Urine 3+ (Negative)
--- NOTE | 2023-03-18 22:58 | History & Physical Report ---
Date of Service March 18, 2023 Assessment & Plan (1) Hypotension: Plan: 87 yo male with PMHx of CKD Stage 4 (previous admission with JUDI requiring temporary dialysis), DVT, DM2 insulin dependent, HTN, hypothyroidism, afib, CAD, BPH, GERD, recurrent bacteremia, aortic stenosis, anxiety, and CHF who presents with fall. #Hypotension -presented with chills and unwitnessed fall. Found on floor with urinary/bowel incontinence and non blood emesis. BP systolically in 70s upon arrival. Did not meet SIRS criteria and does not appear septic. However, does have elevated WBC, lactate, and procal. UA neg. Unclear etiology. Possibly infectious however no obvious source. Pt does have history of recurrent bacteremia. Would also consider vasovagal episode given incontinence with hypotension exacerbated with bodily fluid loss. -CT head pending -CT A/P: wall thickening of the urinary bladder; pt without urinary symptoms -CXR appears unremarkable per my read -received 1.5L IVF in ED. BP responded nicely to this. Cautious of further IVF with severe aortic stenosis. -received zosyn in ED. Continue zosyn empirically. Will also start daptomycin empirically given h/o enterococcal bacteremia in the past. -blood cx pending #JUDI on CKD stage 4 -Cr 2.9 on admission. Baseline ~2. Follows with nephro. -elevation likely due to dehydration. No evidence of fluid overload. IVF given in ED. Monitor. -hold bumex given hypotension #Elevated troponin -initial trop 70 on admission, peaked. Suspect due to demand. Denies cp. EKG without ST changes. #HFpEF #Aortic stenosis #Peripheral edema -has been taking bumex 2mg bid at home. Hold for now given hypotension on admission. -cont. metoprolol #CAD #PVD -cont. ASA, statin #HTN -cont. metoprolol #HLD -cont. statin #DM2 -cont. lantus 26 units BID + SSI #Diabetic neuropathy -cont. gabapentin #COPD -cont. home inhalers #Anxiety -cont. clonazepam #Afib -cont. eliquis, metoprolol #BPH -cont. finasteride, tamsulosin #Hypothyroidism -cont. levothyroxine #GERD -cont. protonix DVT ppx: Eliquis FEN/GI: DM2, Renal Code Status: DNR/DNI Dispo: PCU (2) Elevated troponin I level: (3) Recurrent bacteremia: (4) Anxiety: (5) Anemia of chronic disease: (6) Chronic kidney disease, stage 4 (severe): (7) Acute kidney injury superimposed on CKD: (8) Moderate calcific aortic stenosis: (9) Peripheral vascular disease: (10) Lower extremity edema: (11) Benign prostatic hyperplasia with urinary obstruction: (12) COPD (chronic obstructive pulmonary disease): (13) Hypothyroidism: (14) Hypertension: (15) Dyslipidemia: (16) Paroxysmal atrial fibrillation: (17) Vitamin D deficiency: (18) CAD (coronary artery disease): (19) GERD (gastroesophageal reflux disease): (20) CHF (congestive heart failure): (21) Diabetes: History of Present Illness Primary Care Provider: Cory Nunez DO 87 yo male with PMHx of CKD Stage 4 (previous admission with JUDI requiring temporary dialysis), DVT, DM2 insulin dependent, HTN, hypothyroidism, afib, CAD, BPH, GERD, recurrent bacteremia, aortic stenosis, anxiety, and CHF who presents with fall. at bedside. Patient woke up this morning with chills. had left the house to run errands leaving patient in bed sleeping and upon return a few hours later she found the patient on the bedroom floor with significant bladder and bowel incontinence as well as some emesis. After getting all cleaned up the took his blood pressure and found it to be low, systolically in the 70s which prompted the ED visit. Patient unsure how he had gotten on the floor but did not seem confused per . Patient denies fevers, headache, chest pain, shortness of breath, abdominal pain, nausea, vomiting, fatigue, lower extremity weakness/tingling/numbness, and dysuria. Bowel movements and urination have been normal till this episode. Of note patient did endorse some right and left shoulder pain and was found laying on his left shoulder. Allergies Allergy/AdvReac Type Severity Reaction Status Date / Time Cephalosporins Allergy Unknown Verified 03/19/23 00:43 ciprofloxacin [From Cipro] AdvReac Severe Unknown Verified 03/19/23 00:43 semaglutide [From Ozempic] AdvReac Severe NAUSEA/VOMI Verified 03/19/23 00:43 TING/ANOREX IA amlodipine AdvReac Intermediate SWELLING Verified 03/19/23 00:43 OF ANKLES ropinirole AdvReac Intermediate CHANGE IN Verified 03/19/23 00:43 MENTAL STATUS silver [From SilvaSorb] AdvReac (silver Verified 03/19/23 02:04 dressings) redness of skin Home Medications Medication Instructions Recorded Confirmed Type albuterol sulfate 90 mcg/actuation 2 puffs inhalation Q6H PRN 01/10/19 03/19/23 History aerosol inhaler shortness of breath or wheezing levothyroxine 88 mcg tablet 75 mcg PO DAILYBB #90 tabs 01/10/19 03/19/23 History potassium chloride 20 mEq 20 meq PO BID 01/10/19 03/19/23 History tablet,extended release finasteride 5 mg tablet 5 mg PO HS 04/23/19 03/19/23 History gabapentin 100 mg capsule See Rx Instructions .Route .COMPLEX 12/16/20 03/19/23 History aspirin 81 mg tablet,delayed 81 mg PO DAILY 10/11/21 03/19/23 History release pantoprazole 20 mg tablet,delayed 20 mg PO BID 02/07/22 03/19/23 History release acetaminophen 500 mg tablet 1,000 mg PO Q6H PRN PAIN/FEVER 05/28/22 03/19/23 History (Tylenol Extra Strength) clonazepam 1 mg tablet 1 mg PO BID 05/28/22 03/19/23 History fluticasone 500 mcg-salmeterol 50 1 inh inhalation BID 05/28/22 03/19/23 History mcg/dose blistr powdr for inhalation metoprolol tartrate 50 mg tablet 25 mg PO BID 05/28/22 03/19/23 History multivitamin with minerals 1 tab PO DAILY 05/28/22 03/19/23 History rosuvastatin 20 mg tablet 20 mg PO HS 05/28/22 03/19/23 History tiotropium bromide 2.5 2 puff inhalation DAILY 05/28/22 03/19/23 History mcg/actuation mist for inhalation vitamins A,C,O-ulcz-wlawte 2,148 1 tab PO DAILY 05/28/22 03/19/23 History mcg-113 mg-45 mg-17.4 mg tablet (PreserVision AREDS) apixaban 5 mg tablet (Eliquis) 2.5 mg PO Q12H 12/29/22 03/19/23 History calcium citrate 315 mg-vitamin D3 2 tab PO DAILY 12/29/22 03/19/23 History 5 mcg (200 unit) tablet (Calcium Citrate + D) loratadine 10 mg tablet (Claritin) 10 mg PO DAILY PRN Congestion 12/29/22 03/19/23 History tamsulosin 0.4 mg capsule (Flomax) 0.8 mg PO HS 12/29/22 03/19/23 History insulin aspart U-100 100 unit/mL 14 unit subcut TIDWMEAL 03/19/23 03/19/23 History subcutaneous solution (Novolog U-100 Insulin aspart) insulin glargine 100 unit/mL (3 26 unit subcut BID 03/19/23 03/19/23 History mL) subcutaneous pen (Lantus Solostar U-100 Insulin) Past Med/Surg History Medical History (Updated 03/19/23 @ 01:11 by Bon Brown DO) Abdominal distension Acidosis Acute hyperkalemia Acute hyponatremia Acute kidney injury Acute pyelonephritis Acute renal failure Acute UTI (urinary tract infection) Acute UTI (urinary tract infection) [id number] kidney injury JUDI (acute kidney injury) AMS (altered mental status) AMS (altered mental status) Anemia of chronic disease Anemia of chronic disease Anxiety Aortic stenosis Mild per 03/06/19 stress ECHO Asthma Uses rescue inhaler a couple times per week Atrial fibrillation Follows with Dr. Gr Bacteremia Blindness of left eye Bradycardia CAD (coronary artery disease) Angioplasty ~1993, CABG x 3 2013 (GALINDO to LAD, SVG to PDA, SVG to OM) Cellulitis CHF (congestive heart failure) Chronic kidney disease Follows with Dr. Dixon Chronic obstructive pulmonary disease Diabetes Type 2 IDDM Diabetic infection of right foot DVT (deep venous thrombosis) Fluid overload Foot ulcer GERD (gastroesophageal reflux disease) Headache Herpes zoster Hiatal hernia History of deep venous thrombosis (DVT) of distal vein of left lower extremity Hyperkalemia Hyperlipidemia Hyperosmolar hyperglycemic state (HHS) Hypertension Hypoglycemia Hypoglycemia due to insulin Hypothyroidism Leg wound, left Leukocytosis Macular degeneration Mild aortic stenosis Moderate aortic stenosis Myocardial infarct ~1993 Non-ST elevation IA (NSTEMI) Peripheral neuropathy Peripheral vascular disease Pneumonia Respiratory failure Rupture of left distal biceps tendon hx - no surgery Secondary hyperparathyroidism (of renal origin) Sepsis Sepsis Thrombocytopenia UTI (urinary tract infection) UTI (urinary tract infection) Wound of lower extremity Surgical History Fusion of spine lumbar History of appendectomy History of cardiac cath with angioplasty ~1993 ([facility]) & 2013 ([facility]) History of cataract surgery bilateral History of coronary artery bypass graft x3 vessels ([facility] 2013) with epicardial RFA of pulmonary veins and left atrial appendage ligation History of revision of total replacement of right knee joint History of tonsillectomy History of tooth extraction History of total left knee replacement History of total right knee replacement Hx of colonoscopy Previous back surgery (08/26/12) S/P cholecystectomy Family History Brother Heart disease Diabetes Sister Cancer Mother Diabetes Father Diabetes Other Hypertension Kidney disease Social History Smoking Status: Never smoker Tobacco Type: Cigarettes Second Hand Exposure: No; Do You Dip or Chew Tobacco: No; Hx Alcohol Use: No Hx Substance Use: No Preferred Language: [place] Communication Ability: Effective Visual Impairment: Partially Limited Plant Etiologist Required: No Beliefs That Will Affect Care: None marital status: Current Living Situation: Spouse Current Living Situation Comment: lives at home with current occupational status: retired Other Information That Helps Us Care for You: No Feels Safe at Home: Yes Safety Concerns: Feels Safe At This Time Assistive Devices: Denture - Upper, Denture - Lower, Glasses, Scooter/Electric Scooter and Walker Review of Systems Review of Systems: All systems reviewed & are unremarkable except as noted in HPI & below Physical Exam Physical Exam: Constitutional: in no acute distress, pleasant and normal affect, intact memory. AOx3. Vitals as above. HEENT: No scleral injection or discharge.Dry mucous membranes. Clear oropharynx without exudate. Neck: Supple without lymphadenopathy or thyromegaly. Trachea midline. Lungs: Clear to auscultation bilaterally with good effort. No wheezes/rales/rhonchi. Cardiac: RRR. +murmur.2+ lower extremity edema. 2+ distal peripheral pulses. Abdomen: Bowel sounds present. Soft, nontender, and nondistended.No guarding. No hepatosplenomegaly. MSK: No cyanosis or clubbing. Extremities motor strength 5/5. Skin: new hematoma L shoulder Neurologic: no focal deficits Results & Data Results & Data Vital Signs (Past 12 Hours) Vital Signs Temp Pulse Resp BP Pulse Ox O2 Del Method O2 Flow Rate 03/18/23 22:45 56 L 16 107/48 L 97 03/18/23 22:30 60 17 120/52 L 98 03/18/23 22:15 64 20 125/58 L 96 03/18/23 22:00 58 L 17 93/53 L 97 03/18/23 21:45 58 L 18 87/42 L 94 Nasal Cannula 2 03/18/23 21:44 97 Nasal Cannula 2 03/18/23 21:40 89 L Room Air 03/18/23 21:30 60 19 90/43 L 93 Room Air 03/18/23 21:15 59 L 20 95/45 L 90 03/18/23 21:00 61 21 101/45 L 94 03/18/23 20:30 61 20 94/44 L 93 03/18/23 20:00 66 22 98/45 L 93 03/18/23 20:53 62 20 92 Room Air 03/18/23 19:53 66 03/18/23 19:42 36.6 C 73 18 74/44 L 97 Room Air Laboratory Results Laboratory Results WBC 16.84 K/ul (4.8-10.8) H 03/18/23 20:17 RBC 3.25 M/uL (4.70-6.10) L 03/18/23 20:17 Hgb 10.0 g/dl (14.0-18.0) L 03/18/23 20:17 Hct 29.8 % (42.0-52.0) L 03/18/23 20:17 MCV 91.7 fL (80.0-100.0) 03/18/23 20:17 MCH 30.8 pg (25.0-34.0) 03/18/23 20:17 MCHC 33.6 g/dL (32.0-36.0) 03/18/23 20:17 RDW Std Deviation 51.2 fL (36.4-46.3) H 03/18/23 20:17 RDW Coeff of Adrian 15.2 % (11.5-14.5) H 03/18/23 20:17 Plt Count 150 K/uL (130-400) 03/18/23 20:17 MPV 9.7 fL (9.4-12.4) 03/18/23 20:17 Immature Gran % (Auto) 0.5 % 03/18/23 20:17 Neut % (Auto) 81.7 % 03/18/23 20:17 Lymph % (Auto) 12.3 % 03/18/23 20:17 [place] % (Auto) 5.2 % 03/18/23 20:17 Eos % (Auto) 0.1 % 03/18/23 20:17 Baso % (Auto) 0.2 % 03/18/23 20:17 Neut # (Auto) 13.77 K/uL (1.40-6.50) H 03/18/23 20:17 Lymph # (Auto) 2.07 K/uL (1.20-3.40) 03/18/23 20:17 [place] # (Auto) 0.87 K/uL (0.11-0.59) H 03/18/23 20:17 Eos # (Auto) 0.01 K/uL (0.00-0.50) 03/18/23 20:17 Baso # (Auto) 0.03 K/uL (0.00-0.20) 03/18/23 20:17 Immature Gran # (Auto) 0.09 K/uL (0.01-0.20) 03/18/23 20:17 PT 11.7 Seconds (9.0-12.0) 03/18/23 20:17 INR 1.1 (0.9-1.1) 03/18/23 20:17 APTT 22.2 Seconds (21.0-31.0) 03/18/23 20:17 PTT Ratio 0.8 03/18/23 20:17 VBG pH 7.37 (7.36-7.41) 03/18/23 20:55 VBG pCO2 44 mmHg (38-50) 03/18/23 20:55 VBG pO2 41 mmHg 03/18/23 20:55 VBG HCO3 25 mmol/L 03/18/23 20:55 VBG O2 Saturation 68.0 % 03/18/23 20:55 VBG Base Excess -0.2 mEq/L 03/18/23 20:55 Sodium 135 mmol/L (136-145) L 03/18/23 20:17 Potassium 4.8 mmol/L (3.5-5.1) 03/18/23 20:17 Chloride 101 mmol/L (98-107) 03/18/23 20:17 Carbon Dioxide 28 mmol/L (21-32) 03/18/23 20:17 Anion Gap 6 (3-11) 03/18/23 20:17 BUN 45 mg/dl (6-23) H 03/18/23 20:17 Creatinine 2.90 mg/dl (0.6-1.4) H 03/18/23 20:17 Est Cr Clr Drug Dosing 22.1 ml/min 03/18/23 20:17 Est GFR ( Amer) 21.6 ml/min 03/18/23 20:17 Est GFR (Non-Af Amer) 18.6 ml/min 03/18/23 20:17 BUN/Creatinine Ratio 15.5 (10-20) 03/18/23 20:17 Glucose 159 mg/dl (70-99(Fasting)) H 03/18/23 20:17 Lactate 1.6 mmol/L (0.4-2.0) 03/18/23 22:44 Calcium 9.0 mg/dl (8.6-10.3) 03/18/23 20:17 Magnesium 1.9 mg/dl (1.7-2.4) 03/18/23 20:17 Total Bilirubin 0.6 mg/dl (0.2-1.0) 03/18/23 20:17 Direct Bilirubin 0.2 mg/dl (0-0.2) 03/18/23 20:17 AST 27 U/L (13-39) 03/18/23 20:17 ALT 14 U/L (7-52) 03/18/23 20:17 Alkaline Phosphatase 104 U/L (34-104) 03/18/23 20:17 Troponin I High Sens 63.0 pg/ml (0-20) H* 03/18/23 22:44 Total Protein 6.5 gm/dl (6.0-8.3) 03/18/23 20:17 Albumin 3.2 gm/dl (3.4-5.0) L 03/18/23 20:17 Procalcitonin 28.51 ng/ml (0-0.5) H 03/18/23 20:17 Urine Color Yellow 03/18/23 22:30 Urine Appearance Clear (Clear) 03/18/23 22:30 Urine pH 7.5 (4.5-7.5) 03/18/23 22:30 Ur Specific Agar 1.013 (1.000-1.030) 03/18/23 22:30 Urine Protein 3+ (Negative) H 03/18/23 22:30 Urine Glucose (UA) Negative (Negative) 03/18/23 22: Urine Ketones Negative (Negative) 03/18/23 22: Urine Blood Negative (Negative) 03/18/23 22:30 Urine Nitrite Negative (Negative) 03/18/23 22: Urine Bilirubin Negative (Negative) 03/18/23 22: Urine Urobilinogen Negative (Negative) 03/18/23 22:30 Ur Leukocyte Esterase Negative (Negative) 03/18/23 22:30 Urine WBC (Auto) 1-5 /hpf (0-5) 03/18/23 22:30 Urine RBC (Auto) 0-4 /hpf (0-4) 03/18/23 22: U Hyaline Cast (Auto) 10-30 /lpf (0-5) H 03/18/23 22:30 U Epithel Cells (Auto) 10-20 /lpf (0-5) H 03/18/23 22:30 Urine Bacteria (Auto) Negative (Negative) 03/18/23 22:30 Adenovirus (PCR) Not Detected (NotDetected) 03/18/23 20:55 B. pertussis DNA (PCR) Not Detected (NotDetected) 03/18/23 20:55 B.parapertussis DNA PCR Not Detected (NotDetected) 03/18/23 20:55 C. pneumoniae DNA (PCR) Not Detected (NotDetected) 03/18/23 20:55 Coronavirus OC43 (PCR) Not Detected (NotDetected) 03/18/23 20:55 Coronavirus HKU1 (PCR) Not Detected (NotDetected) 03/18/23 20:55 Coronavirus 229E (PCR) Not Detected (NotDetected) 03/18/23 20:55 SARS-CoV-2 (PCR) Not Detected (NotDetected) 03/18/23 20:55 Coronavirus NL63 (PCR) Not Detected (NotDetected) 03/18/23 20:55 Human Metapneumovir PCR Not Detected (NotDetected) 03/18/23 20:55 Influenza Type A (PCR) Not Detected (NotDetected) 03/18/23 20:55 Influenza Type B (PCR) Not Detected (NotDetected) 03/18/23 20:55 M. pneumoniae (PCR) Not Detected (NotDetected) 03/18/23 20:55 Parainfluenza 1 (PCR) Not Detected (NotDetected) 03/18/23 20:55 Parainfluenza 2 (PCR) Not Detected (NotDetected) 03/18/23 20:55 Parainfluenza 3 (PCR) Not Detected (NotDetected) 03/18/23 20:55 Parainfluenza 4 (PCR) Not Detected (NotDetected) 03/18/23 20:55 RSV (PCR) Not Detected (NotDetected) 03/18/23 20:55 Entero/Rhino (PCR) Not Detected (NotDetected) 03/18/23 20:55 Impressions Abdomen/Pelvis CT 03/18/23 23:02 Exam(s): CT ABDOMEN + PELVIS Without Contrast EXAM: CT Abdomen and Pelvis Without Intravenous Contrast CLINICAL HISTORY: Reason for exam: INFECTION. TECHNIQUE: Axial computed tomography images of the abdomen and pelvis without intravenous contrast. CTDI is 27.36 mGy and DLP is 1321.05 mGy-cm. Automated exposure control was utilized for the study. A dose lowering technique was utilized adhering to the principles of ALARA. COMPARISON: No relevant prior studies available. FINDINGS: Lung bases: Atelectasis at the lung bases. Heart: Cardiomegaly. ABDOMEN: Liver: Unremarkable. Gallbladder and bile ducts: Cholecystectomy. No ductal dilation. Pancreas: Unremarkable. No ductal dilation. Spleen: Unremarkable. No splenomegaly. Adrenals: Unremarkable. No mass. Kidneys and ureters: No hydronephrosis or nephrolithiasis. Wall thickening of the urinary bladder measuring up to 7 mm, concerning for UTI. Urinalysis recommended. Stomach and bowel: Diverticulosis, without acute diverticulitis. No small bowel obstruction. No free intraperitoneal air. PELVIS: Appendix: No findings to suggest acute appendicitis. Bladder: See above. Reproductive: Unremarkable as visualized. ABDOMEN and PELVIS: Intraperitoneal space: Unremarkable. No free air. No significant fluid collection. Bones/joints: Degenerative changes of the spine. Multilevel posterior lumbar fusion and laminectomies. No acute fracture. No dislocation. Soft tissues: Unremarkable. Vasculature: Atherosclerotic changes of the aorta. No abdominal aortic aneurysm. Lymph nodes: Unremarkable. No enlarged lymph nodes. IMPRESSION: 1. Cholecystectomy. 2. Wall thickening of the urinary bladder measuring up to 7 mm, concerning for UTI. Urinalysis recommended. 3. Multilevel posterior lumbar fusion and laminectomies. 4. Diverticulosis, without acute diverticulitis. No small bowel obstruction. No free intraperitoneal air. Electronically signed by: Clemente Flores MD 03/19/23 00:50 AM Supervising Physician Co-Signing Physician Notes Patient seen and examined, chart reviewed, case discussed with Dr. Brown and I agree with the assessment and plan as above. In brief, patient is an 87yo male with history of CKD, DM, HTN, AF, CAD and GERD, recurrent bacteremia and sepsis presenting with episode of unresponsiveness, hypotension. Story obtained from patient's - reports that patient was complaining of chills today. She left for a little to do some errands and when she returned she found patient laying on the bedroom floor - he had vomited and been incontinent of urine and stool. Patient was confused. After she cleaned him up and cleaned the room she checked his blood pressure and it was found to be low in the 90's. Patient was without additional complaint. Upon arrival to the ER he was hypotensive with BP of 74/44. Also with leukocytosis with WBC=16.8, elevated lactate of 2.4 which decreased to 1.6 after IVF, elevated procalcitonin of 28.51. On exam patient is afebrile, blood pressure has improved now hypertensive to 161/88 Skin - intact, no rash HEENT -MMM, Neck supple Heart - +S1/S2, regular, 3/6 LACI across precordium Lungs- CTA, no rales/rhonchi/wheezes Abd - obese, soft, NT/ND Ext - warm, well perfused Labs and images reviewed CT abdomen with suggestion of bladder inflammation CT head performed due to unwitnessed fall, patient on blood thinner - study unremarkable Assessment/Plan Possible infection - hypotension, leukocytosis and elevated procalcitonin -Admit to U -Follow cultures -Continue empiric antibiotics - Zosyn and Dapto. Has h/o enterococcus faecalis bacteremia - Sn to Vanc and Dapto -Remainder of plan as above Resident Activity Tracking Resident Involvement: Resident Care Provided Care Provided: Adult Hospital Medicine (12) COPD (chronic obstructive pulmonary disease) COPD type: unspecified COPD Qualified Code(s): J44.9 - Chronic obstructive pulmonary disease, unspecified (13) Hypothyroidism Hypothyroidism type: unspecified Qualified Code(s): E03.9 - Hypothyroidism, unspecified (14) Hypertension Hypertension type: essential hypertension Qualified Code(s): I10 - Essential (primary) hypertension (18) CAD (coronary artery disease) Associated angina: without angina Coronary Disease-Associated Artery/Lesion type: [place] artery [place] vs. 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
[2023-03-19] MEDS ORDERED: DAPTOmycin 525 MG in SYRINGE 0 ML IV STA (00:18)
--- NOTE | 2023-03-19 00:51 | CT Scan Report ---
Exam(s): CT ABDOMEN + PELVIS Without Contrast EXAM: CT Abdomen and Pelvis Without Intravenous Contrast CLINICAL HISTORY: Reason for exam: INFECTION. TECHNIQUE: Axial computed tomography images of the abdomen and pelvis without intravenous contrast. CTDI is 27.36 mGy and DLP is 1321.05 mGy-cm. Automated exposure control was utilized for the study. A dose lowering technique was utilized adhering to the principles of ALARA. COMPARISON: No relevant prior studies available. FINDINGS: Lung bases: Atelectasis at the lung bases. Heart: Cardiomegaly. ABDOMEN: Liver: Unremarkable. Gallbladder and bile ducts: Cholecystectomy. No ductal dilation. Pancreas: Unremarkable. No ductal dilation. Spleen: Unremarkable. No splenomegaly. Adrenals: Unremarkable. No mass. Kidneys and ureters: No hydronephrosis or nephrolithiasis. Wall thickening of the urinary bladder measuring up to 7 mm, concerning for UTI. Urinalysis recommended. Stomach and bowel: Diverticulosis, without acute diverticulitis. No small bowel obstruction. No free intraperitoneal air. PELVIS: Appendix: No findings to suggest acute appendicitis. Bladder: See above. Reproductive: Unremarkable as visualized. ABDOMEN and PELVIS: Intraperitoneal space: Unremarkable. No free air. No significant fluid collection. Bones/joints: Degenerative changes of the spine. Multilevel posterior lumbar fusion and laminectomies. No acute fracture. No dislocation. Soft tissues: Unremarkable. Vasculature: Atherosclerotic changes of the aorta. No abdominal aortic aneurysm. Lymph nodes: Unremarkable. No enlarged lymph nodes. IMPRESSION: 1. Cholecystectomy. 2. Wall thickening of the urinary bladder measuring up to 7 mm, concerning for UTI. Urinalysis recommended. 3. Multilevel posterior lumbar fusion and laminectomies. 4. Diverticulosis, without acute diverticulitis. No small bowel obstruction. No free intraperitoneal air. Electronically signed by: Clemente Flores MD 03/19/23 00:50 AM
--- NOTE | 2023-03-19 01:52 | CT Scan Report ---
Exam(s): CT HEAD Without Contrast EXAM: CT Head Without Intravenous Contrast CLINICAL HISTORY: Reason for exam: r/o bleed. TECHNIQUE: Axial computed tomography images of the head/brain without intravenous contrast. CTDI is 36.67 mGy and DLP is 625.8 mGy-cm. Automated exposure control was utilized for the study. A dose lowering technique was utilized adhering to the principles of ALARA. COMPARISON: Comparison made to prior head CT from January 20, 2023. FINDINGS: Brain: Unremarkable. No hemorrhage. No significant white matter disease. No edema. Ventricles: Unremarkable. No ventriculomegaly. Bones/joints: Remote left lamina papyracea fracture deformity. No acute fracture. Soft tissues: Bilateral lens replacements. Sinuses: Unremarkable as visualized. No acute sinusitis. Mastoid air cells: Unremarkable as visualized. No mastoid effusion. IMPRESSION: No evidence of acute intracranial pathology. Communications: Call Doctor Stroke Electronically signed by: Shobha Coffman MD 03/19/23 01:51 AM
[2023-03-19] MEDS ORDERED: ALBUTEROL HFA 8 GM INHALER INH PRN (01:59)
[2023-03-19] MEDS ORDERED: GLUCAGON FOR INJ 1 MG VIAL SQ PRN (01:59)
[2023-03-19] MEDS ORDERED: DEXTROSE 50% 50 ML SYRINGE IV PRN (01:59)
[2023-03-19] MEDS ORDERED: ONDANSETRON 4 MG OD TAB PO PRN (01:59)
[2023-03-19] MEDS ORDERED: GLUCOSE 10 TAB/TUBE PO PRN (01:59)
[2023-03-19] MEDS ORDERED: CARBOHYDRATES FOR HYPOGLYCEMIA PO PRN (01:59)
[2023-03-19] MEDS ORDERED: GLUCOSE 40% GEL 15 GM TUBE PO PRN (01:59)
[2023-03-19] MEDS: PIPERACILLIN/TAZOBACTAM 4.5 GM in DEXTROSE 5% MINI-B 100 ML IV SCH ×2 (02:28→09:57)
--- NOTE | 2023-03-19 02:57 | Billing Data ---
Date of Service March 19, 2023 Coding Level of Care Code 05278 INT INP/OBS CARE
[2023-03-19] MEDS: LEVOTHYROXINE SODIUM 88 MCG TABLET PO SCH (06:10)
[2023-03-19 08:02] LABS: Basophils # (auto) 0.03 K/uL (0.00-0.20); Basophils % (auto) 0.3 %; Eosinophils # (auto) 0.09 K/uL (0.00-0.50); Eosinophils % (auto) 0.8 %; Hematocrit (blood only) 25.8 % (42.0-52.0); Hemoglobin 8.6 g/dl (14.0-18.0); Immature Granulocytes # (auto) 0.07 K/uL (0.01-0.20); Immature Granulocytes % (auto) 0.6 %; Lymphocytes # (auto) 2.29 K/uL (1.20-3.40); Lymphocytes % (auto) 20.7 %; Mean Corpuscular Hemoglobin 30.4 pg (25.0-34.0); Mean Corpuscular Hgb Conc 33.3 g/dL (32.0-36.0); Mean Corpuscular Volume 91.2 fL (80.0-100.0); Mean Platelet Volume 9.3 fL (9.4-12.4); Monocytes # (auto) 0.81 K/uL (0.11-0.59); Monocytes % (auto) 7.3 %; Neutrophils # (auto) 7.76 K/uL (1.40-6.50); Neutrophils % (auto) 70.3 %; Platelet Count 132 K/uL (130-400); RDW Coefficient of Variation 15.4 % (11.5-14.5); RDW Standard Deviation 51.4 fL (36.4-46.3); Red Blood Count 2.83 M/uL (4.70-6.10); White Blood Count 11.05 K/ul (4.8-10.8)
[2023-03-19 08:17] LABS: Albumin Level 2.8 gm/dl (3.4-5.0); Bilirubin,Total 0.4 mg/dl (0.2-1.0); Calcium 8.5 mg/dl (8.6-10.3); Creatinine Clr Calc Pharmacy 20.9 ml/min; Est GFR (African American) 24.5 ml/min; Est GFR (Non-African American) 21.1 ml/min; Globulin 2.9 gm/dl (2.5-4.0); Potassium 4.1 mmol/L (3.5-5.1); Total Protein 5.7 gm/dl (6.0-8.3)
--- NOTE | 2023-03-19 08:28 | Hospitalist Progress Note ---
Date of Service March 19, 2023 Assessment & Plan (1) Hypotension: (2) Elevated troponin I level: (3) Recurrent bacteremia: (4) Anxiety: (5) Anemia of chronic disease: (6) Chronic kidney disease, stage 4 (severe): (7) Acute kidney injury superimposed on CKD: (8) Moderate calcific aortic stenosis: (9) Peripheral vascular disease: (10) Lower extremity edema: (11) Benign prostatic hyperplasia with urinary obstruction: (12) COPD (chronic obstructive pulmonary disease): (13) Hypothyroidism: (14) Hypertension: (15) Dyslipidemia: (16) Paroxysmal atrial fibrillation: (17) Vitamin D deficiency: (18) CAD (coronary artery disease): (19) GERD (gastroesophageal reflux disease): (20) CHF (congestive heart failure): (21) Diabetes: Plan 87 yo male with PMHx of CKD Stage 4 (previous admission with [facility]I requiring temporary dialysis), DVT, DM2 insulin dependent, HTN, hypothyroidism, afib, CAD, BPH, GERD, recurrent bacteremia, aortic stenosis, anxiety, and CHF who presents with unwitnessed fall with concomitant bowel/bladder incontinence and associated hypotension. 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 - UA negative - Blood cx positive for gram positive cocci in chains. ? consider GLO/other imaging in am to look for source of seeding? - PCR Enterococcus Faecalis positive (VRE not detected) - Antibiotics changed from Zosyn +Daptomycin --> Ampicillin #Hypotension - Likely from infection - BP 74/44 in ED, improved with IV fluids - Currently hemodynamically stable #JUDI on CKD stage 4 - Cr 2.9 --> 2.6 - Baseline ~2. Follows with nephro. - Elevation in creatinine likely secondary to dehydration - Trend BMP QAM #Elevated troponin - Trop 72 on admission, repeat Trop 63 - EKG without ischemic changes, suspect due to demand #Chronic HFpEF #Aortic stenosis #Peripheral edema #CAD/PVD/HLD #Afib -Holding home Bumex -cont. metoprolol; eliquis -cont. statin -cont. ASA, statin #DM2 -cont. lantus 26 units BID + SSI #Diabetic neuropathy -cont. gabapentin #COPD -cont. home inhalers #Anxiety -cont. clonazepam #BPH -cont. finasteride, tamsulosin DVT ppx: Eliquis FEN/GI: DM2, Renal Admission and Anticipated Discharge Date Admission Date: March 19, 2023 Supervising Physician Co-Signing Physician Notes Resident Physician Supervision Note: I independently interviewed and examined the patient and verified the aguayo history and physical, reviewed labs and image studies and agree with resident findings and care plan. Subjective 87 yo male with PMHx of CKD Stage 4 (previous admission with [facility] requiring temporary dialysis), DVT, DM2 insulin dependent, HTN, hypothyroidism, afib, CAD, BPH, GERD, recurrent bacteremia, aortic stenosis, anxiety, and CHF who presents with fall. Patient resting comfortably upon evaluation this morning. Patient is AOx4, is pleasant and conversational, notes that he can't remember whether he lost consciousness prior to falling at home but otherwise remembers the circumstances surrounding his reason for admission. Notes that he has a history of repeated infections, though he currently denies urinary symptoms, denies SOB. Review of Systems Review of Systems: as per HPI Physical Exam Constitutional: WD/WN, vitals as above Respiratory: normal respiratory effort, lungs clear to auscultation Cardiovascular: Rate/Rhythm: regular rate and regular rhythm Heart Sounds: + murmur (systolic ejection murmur ) Gastrointestinal (Abdomen): normal bowel sounds, soft, nontender, no hepatosplenomegaly Psychiatric: A+Ox3, euthymic affect Results & Data Results & Data Vital Signs (Past 12 Hours) Vital Signs Temp Pulse Pulse Resp BP BP Pulse Ox 03/19/23 03:25 36.6 C 57 L 16 116/63 95 03/19/23 02:14 03/19/23 01:59 36.5 C 68 16 161/88 H 98 03/19/23 01:01 60 18 129/57 L 97 03/19/23 00:45 62 18 121/59 L 97 03/19/23 00:30 62 19 118/56 L 99 03/19/23 00:15 65 18 130/61 95 03/19/23 00:00 60 18 109/53 L 96 03/18/23 23:45 61 18 124/55 L 99 03/18/23 23:30 66 18 127/59 L 99 03/18/23 23:00 55 L 18 98/44 L 96 03/18/23 23:52 61 03/18/23 22:45 56 L 16 107/48 L 97 03/18/23 22:30 60 17 120/52 L 98 03/18/23 22:15 64 20 125/58 L 96 03/18/23 22:00 58 L 17 93/53 L 97 03/18/23 21:45 58 L 18 87/42 L 94 03/18/23 21:44 97 03/18/23 21:40 89 L 03/18/23 21:30 60 19 90/43 L 93 03/18/23 21:15 59 L 20 95/45 L 90 03/18/23 21:00 61 21 101/45 L 94 03/18/23 20:30 61 20 94/44 L 93 03/18/23 20:53 62 20 92 O2 Del Method O2 Flow Rate 03/19/23 03:25 Room Air 03/19/23 02:14 Nasal Cannula 3 03/19/23 01:59 Room Air 03/19/23 01:01 Nasal Cannula 2 03/19/23 00:45 03/19/23 00:30 03/19/23 00:15 03/19/23 00:00 03/18/23 23:45 03/18/23 23:30 03/18/23 23:00 03/18/23 23:52 03/18/23 22:45 03/18/23 22:30 03/18/23 22:15 03/18/23 22:00 03/18/23 21:45 Nasal Cannula 2 03/18/23 21:44 Nasal Cannula 2 03/18/23 21:40 Room Air 03/18/23 21:30 Room Air 03/18/23 21:15 03/18/23 21:00 03/18/23 20:30 03/18/23 20:53 Room Air Laboratory Results Abnormal lab results 03/18/23 03/18/23 03/18/23 Range/Units 20:17 20:17 20:17 WBC 16.84 H (4.8-10.8) K/ul RBC 3.25 L (4.70-6.10) M/uL Hgb 10.0 L (14.0-18.0) g/dl Hct 29.8 L (42.0-52.0) % RDW Std Deviation 51.2 H (36.4-46.3) fL RDW Coeff of Adrian 15.2 H (11.5-14.5) % MPV (9.4-12.4) fL Neut # (Auto) 13.77 H (1.40-6.50) K/uL Scurry # (Auto) 0.87 H (0.11-0.59) K/uL Sodium 135 L (136-145) mmol/L BUN 45 H (6-23) mg/dl Creatinine 2.90 H (0.6-1.4) mg/dl Glucose 159 H (70-99(Fasting)) mg/dl POC Glucose (70-99) mg/dl Lactate 2.4 H* (0.4-2.0) mmol/L Calcium (8.6-10.3) mg/dl Troponin I High Sens 72.0 H* (0-20) pg/ml Total Protein (6.0-8.3) gm/dl Albumin 3.2 L (3.4-5.0) gm/dl Procalcitonin (0-0.5) ng/ml Urine Protein (Negative) U Hyaline Cast (Auto) (0-5) /lpf U Epithel Cells (Auto) (0-5) /lpf 03/18/23 03/18/23 03/18/23 Range/Units 20:17 22:30 22:44 WBC (4.8-10.8) K/ul RBC (4.70-6.10) M/uL Hgb (14.0-18.0) g/dl Hct (42.0-52.0) % RDW Std Deviation (36.4-46.3) fL RDW Coeff of Adrian (11.5-14.5) % MPV (9.4-12.4) fL Neut # (Auto) (1.40-6.50) K/uL [place] # (Auto) (0.11-0.59) K/uL Sodium (136-145) mmol/L BUN (6-23) mg/dl Creatinine (0.6-1.4) mg/dl Glucose (70-99(Fasting)) mg/dl POC Glucose (70-99) mg/dl Lactate (0.4-2.0) mmol/L Calcium (8.6-10.3) mg/dl Troponin I High Sens 63.0 H* (0-20) pg/ml Total Protein (6.0-8.3) gm/dl Albumin (3.4-5.0) gm/dl Procalcitonin 28.51 H (0-0.5) ng/ml Urine Protein 3+ H (Negative) U Hyaline Cast (Auto) 10-30 H (0-5) /lpf U Epithel Cells (Auto) 10-20 H (0-5) /lpf 03/19/23 03/19/23 03/19/23 Range/Units 07:26 07:26 07:26 WBC 11.05 H (4.8-10.8) K/ul RBC 2.83 L (4.70-6.10) M/uL Hgb 8.6 L (14.0-18.0) g/dl Hct 25.8 L (42.0-52.0) % RDW Std Deviation 51.4 H (36.4-46.3) fL RDW Coeff of Adrian 15.4 H (11.5-14.5) % MPV 9.3 L (9.4-12.4) fL Neut # (Auto) 7.76 H (1.40-6.50) K/uL Scurry # (Auto) 0.81 H (0.11-0.59) K/uL Sodium (136-145) mmol/L BUN 47 H (6-23) mg/dl Creatinine 2.61 H (0.6-1.4) mg/dl Glucose 123 H (70-99(Fasting)) mg/dl POC Glucose (70-99) mg/dl Lactate (0.4-2.0) mmol/L Calcium 8.5 L (8.6-10.3) mg/dl Troponin I High Sens (0-20) pg/ml Total Protein 5.7 L (6.0-8.3) gm/dl Albumin 2.8 L (3.4-5.0) gm/dl Procalcitonin 27.83 H (0-0.5) ng/ml Urine Protein (Negative) U Hyaline Cast (Auto) (0-5) /lpf U Epithel Cells (Auto) (0-5) /lpf 03/19/23 Range/Units 07:26 WBC (4.8-10.8) K/ul RBC (4.70-6.10) M/uL Hgb (14.0-18.0) g/dl Hct (42.0-52.0) % RDW Std Deviation (36.4-46.3) fL RDW Coeff of Adrian (11.5-14.5) % MPV (9.4-12.4) fL Neut # (Auto) (1.40-6.50) K/uL [place]urry # (Auto) (0.11-0.59) K/uL Sodium (136-145) mmol/L BUN (6-23) mg/dl Creatinine (0.6-1.4) mg/dl Glucose (70-99(Fasting)) mg/dl POC Glucose 123 H (70-99) mg/dl Lactate (0.4-2.0) mmol/L Calcium (8.6-10.3) mg/dl Troponin I High Sens (0-20) pg/ml Total Protein (6.0-8.3) gm/dl Albumin (3.4-5.0) gm/dl Procalcitonin (0-0.5) ng/ml Urine Protein (Negative) U Hyaline Cast (Auto) (0-5) /lpf U Epithel Cells (Auto) (0-5) /lpf Diagnostic Findings Chest X-Ray 03/18/23 19:49 XR chest 1V portable CLINICAL HISTORY: Sepsis TECHNIQUE: Single frontal radiograph of the chest was obtained. Comparison: Comparison is made to chest radiograph 01/20/2023 FINDINGS: Stable appearance of median sternotomy wires including fractured superior wire. Calcified aortic knob is seen. The lungs are clear. No evidence of pleural effusion or pneumothorax. IMPRESSION: No acute abnormalities and in particular no radiographic evidence of pneumonia. ACT 112: Negative or not required by law. Electronically signed by: Dano West M.D. 03/19/2023 9:30 AM Forearm X-Ray 03/18/23 20:03 XR forearm LT 2V CLINICAL HISTORY: fall TECHNIQUE: 2 views of the left forearm were obtained. Comparison: None available at the time of this dictation. FINDINGS: There is no evidence of acute fracture or dislocation. Joint spaces are well- preserved. Vascular calcifications are noted. IMPRESSION: Degenerative changes without evidence of acute injury. ACT 112: Negative or not required by law. Electronically signed by: Dano West M.D. 03/19/2023 9:26 AM Shoulder X-Ray 03/18/23 20:03 XR shoulder LT min 2V routine, XR shoulder RT min 2V routine CLINICAL HISTORY: fall TECHNIQUE: 3 views of the bilateral shoulders were obtained. Comparison: None available at the time of this dictation. FINDINGS: There is no evidence of an acute fracture. Degenerative changes are seen in the glenohumeral joint. The overlying soft tissues are unremarkable. The visualized portions of the lungs are clear. IMPRESSION: No evidence of acute osseous injury. ACT 112: Negative or not required by law. Electronically signed by: Dano West M.D. 03/19/2023 9:26 AM Abdomen/Pelvis CT 03/18/23 23:02 Exam(s): CT ABDOMEN + PELVIS Without Contrast EXAM: CT Abdomen and Pelvis Without Intravenous Contrast CLINICAL HISTORY: Reason for exam: INFECTION. TECHNIQUE: Axial computed tomography images of the abdomen and pelvis without intravenous contrast. CTDI is 27.36 mGy and DLP is 1321.05 mGy-cm. Automated exposure control was utilized for the study. A dose lowering technique was utilized adhering to the principles of ALARA. COMPARISON: No relevant prior studies available. FINDINGS: Lung bases: Atelectasis at the lung bases. Heart: Cardiomegaly. ABDOMEN: Liver: Unremarkable. Gallbladder and bile ducts: Cholecystectomy. No ductal dilation. Pancreas: Unremarkable. No ductal dilation. Spleen: Unremarkable. No splenomegaly. Adrenals: Unremarkable. No mass. Kidneys and ureters: No hydronephrosis or nephrolithiasis. Wall thickening of the urinary bladder measuring up to 7 mm, concerning for UTI. Urinalysis recommended. Stomach and bowel: Diverticulosis, without acute diverticulitis. No small bowel obstruction. No free intraperitoneal air. PELVIS: Appendix: No findings to suggest acute appendicitis. Bladder: See above. Reproductive: Unremarkable as visualized. ABDOMEN and PELVIS: Intraperitoneal space: Unremarkable. No free air. No significant fluid collection. Bones/joints: Degenerative changes of the spine. Multilevel posterior lumbar fusion and laminectomies. No acute fracture. No dislocation. Soft tissues: Unremarkable. Vasculature: Atherosclerotic changes of the aorta. No abdominal aortic aneurysm. Lymph nodes: Unremarkable. No enlarged lymph nodes. IMPRESSION: 1. Cholecystectomy. 2. Wall thickening of the urinary bladder measuring up to 7 mm, concerning for UTI. Urinalysis recommended. 3. Multilevel posterior lumbar fusion and laminectomies. 4. Diverticulosis, without acute diverticulitis. No small bowel obstruction. No free intraperitoneal air. Electronically signed by: Clemente Flores MD 03/19/23 00:[address] 03/19/23 00:44 CR Exam(s): CT HEAD Without Contrast EXAM: CT Head Without Intravenous Contrast CLINICAL HISTORY: Reason for exam: r/o bleed. TECHNIQUE: Axial computed tomography images of the head/brain without intravenous contrast. CTDI is 36.67 mGy and DLP is 625.8 mGy-cm. Automated exposure control was utilized for the study. A dose lowering technique was utilized adhering to the principles of ALARA. COMPARISON: Comparison made to prior head CT from January 20, 2023. FINDINGS: Brain: Unremarkable. No hemorrhage. No significant white matter disease. No edema. Ventricles: Unremarkable. No ventriculomegaly. Bones/joints: Remote left lamina papyracea fracture deformity. No acute fracture. Soft tissues: Bilateral lens replacements. Sinuses: Unremarkable as visualized. No acute sinusitis. Mastoid air cells: Unremarkable as visualized. No mastoid effusion. IMPRESSION: No evidence of acute intracranial pathology. Communications: Call Doctor Stroke Electronically signed by: Shobha Coffman MD 03/19/23 01:51 AM Resident Activity Tracking Resident Involvement: Resident Care Provided Care Provided: Adult Hospital Medicine (12) COPD (chronic obstructive pulmonary disease) COPD type: unspecified COPD Qualified Code(s): J44.9 - Chronic obstructive pulmonary disease, unspecified (13) Hypothyroidism Hypothyroidism type: unspecified Qualified Code(s): E03.9 - Hypothyroidism, unspecified (14) Hypertension Hypertension type: essential hypertension Qualified Code(s): I10 - Essential (primary) hypertension (18) CAD (coronary artery disease) Associated angina: without angina Coronary Disease-Associated Artery/Lesion type: [place] artery [place] vs. 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
[2023-03-19] MEDS: INSULIN ASPART PER UNIT CHARGE SC SCH ×4 (08:33→20:54)
[2023-03-19] MEDS: UMECLIDINIUM BROMIDE 62.5MCG/BLISTER 7 PUFFS/INHALER INH SCH (08:35)
[2023-03-19] MEDS: FLUTICASONE/VILANTEROL 100/25MCG 14 PUFFS/INHALER INH SCH (08:35)
[2023-03-19] MEDS: METOPROLOL TARTRATE 25 MG TAB PO SCH ×2 (08:35→21:02)
[2023-03-19] MEDS: ASPIRIN 81 MG ECTAB PO SCH (08:35)
[2023-03-19] MEDS: PANTOprazole 40 MG TAB PO SCH ×2 (08:35→21:03)
[2023-03-19] MEDS: GABAPENTIN 100 MG CAP PO SCH (08:35)
[2023-03-19] MEDS: APIXABAN 2.5 MG TAB PO SCH ×2 (08:36→21:02)
[2023-03-19] MEDS: clonazePAM 1 MG TAB PO SCH ×2 (08:39→21:01)
[2023-03-19] MEDS: LANTUS PER UNIT CHARGE SQ SCH ×2 (08:39→21:00)
--- NOTE | 2023-03-19 09:27 | XRay Report ---
XR forearm LT 2V CLINICAL HISTORY: fall TECHNIQUE: 2 views of the left forearm were obtained. Comparison: None available at the time of this dictation. FINDINGS: There is no evidence of acute fracture or dislocation. Joint spaces are well-preserved. Vascular calc ifications are noted. IMPRESSION: Degenerative changes without evidence of acute injury. ACT 112: Negative or not required by law. Electronically signed by: Dano West M.D. 03/19/2023 9:26 AM
--- NOTE | 2023-03-19 09:27 | XRay Report ---
XR shoulder LT min 2V routine, XR shoulder RT min 2V routine CLINICAL HISTORY: fall TECHNIQUE: 3 views of the bilateral shoulders were obtained. Comparison: None available at the time of this dictation. FINDINGS: There is no evidence of an acute fracture. Degenerative changes are seen in the glenohumeral joint. T he overlying soft tissues are unremarkable. The visualized portions of the lungs are clear. IMPRESSION: No evidence of acute osseous injury. ACT 112: Negative or not required by law. Electronically signed by: Dano West M.D. 03/19/2023 9:26 AM
--- NOTE | 2023-03-19 09:33 | XRay Report ---
XR chest 1V portable CLINICAL HISTORY: Sepsis TECHNIQUE: Single frontal radiograph of the chest was obtained. Comparison: Comparison is made to chest radiograph 01/20/2023 FINDINGS: Stable appearance of median sternotomy wires including fractured superior wire. Calcified aortic knob is seen. The lungs are clear. No evidence of pleural effusion or pneumothorax. IMPRESSION: No acute abnormalities and in particular no radiographic evidence of pneumonia. ACT 112: Negative or not required by law. Electronically signed by: Dano West M.D. 03/19/2023 9:30 AM
[2023-03-19 12:56] LABS: A calco-baum cmplx NotReported Not Detected (NotDetected); Bact fragilis Not Reported Not Detected (NotDetected); Blood Culture Id Panel See PCR Comment (NotDetected); C auris Not Reported Not Detected (NotDetected); Calbicans Not Reported Not Detected (NotDetected); Candida glabrata Not Reported Not Detected (NotDetected); Candida krusei Not Reported Not Detected (NotDetected); Cneoformans/gatti Not Reported Not Detected (NotDetected); Cparapsilosis Not Reported Not Detected (NotDetected); E cloacae compx Not Reported Not Detected (NotDetected); Efaecalis Not Reported DETECTED (NotDetected); Efaecium Not Reported Not Detected (NotDetected); Enterobacterales Not Reported Not Detected (NotDetected); Escherichia coli Not Reported Not Detected (NotDetected); H influenzae Not Reported Not Detected (NotDetected); K aerogenes Not Reported Not Detected (NotDetected); Koxytoca Not Reported Not Detected (NotDetected); Kpneumoniae grp Not Reported Not Detected (NotDetected); Lmonocyt Not Reported Not Detected (NotDetected); N meningitidis Not Reported Not Detected (NotDetected); P aeruginosa Not Reported Not Detected (NotDetected); Proteus spp Not Reported Not Detected (NotDetected); Salmonella spp Not Reported Not Detected (NotDetected); Smarcescens Not Reported Not Detected (NotDetected); Staph lugdunensis Not Reported Not Detected (NotDetected); Staph spp. Not Reported Not Detected (NotDetected); Staphaureus Not Reported Not Detected (NotDetected); Staphepi Not Reported Not Detected (NotDetected); Stenmaltophilia Not Reported Not Detected (NotDetected); Strep agal(GrpB) Not Reported Not Detected (NotDetected); Strep pneum Not Reported Not Detected (NotDetected); Strep pyog (GrpA) Not Reported Not Detected (NotDetected); Strep spp Not Reported Not Detected (NotDetected); VanAB Resistant Gene VRE Not Detected (NotDetected)
[2023-03-19 13:06] LABS: Enterococcus faecalis DETECTED (NotDetected)
[2023-03-19] MEDS: AMPICILLIN 2,000 MG in SODIUM CHLORIDE 0.9% 50 ML IV SCH ×2 (14:47→21:03)
[2023-03-19] MEDS ORDERED: GABAPENTIN 300 MG CAP PO SCH (21:00)
[2023-03-19] MEDS: ROSUVASTATIN CALCIUM 20 MG TAB PO SCH (21:02)
[2023-03-19] MEDS: FINASTERIDE 5 MG TAB PO SCH (21:03)
[2023-03-19] MEDS: TAMSULOSIN HCL 0.4 MG CAP PO SCH (21:04)
[2023-03-19] MEDS: GABAPENTIN 300 MG CAP PO SCH (21:36)
[2023-03-20] MEDS: AMPICILLIN 2,000 MG in SODIUM CHLORIDE 0.9% 50 ML IV SCH ×3 (05:23→20:28)
[2023-03-20] MEDS: LEVOTHYROXINE SODIUM 88 MCG TABLET PO SCH (05:25)
--- NOTE | 2023-03-20 06:38 | Hospitalist Progress Note ---
Date of Service March 20, 2023 Assessment & Plan (1) Hypotension: (2) Elevated troponin I level: (3) Recurrent bacteremia: (4) Anxiety: (5) Anemia of chronic disease: (6) Chronic kidney disease, stage 4 (severe): (7) Acute kidney injury superimposed on CKD: (8) Moderate calcific aortic stenosis: (9) Peripheral vascular disease: (10) Lower extremity edema: (11) Benign prostatic hyperplasia with urinary obstruction: (12) COPD (chronic obstructive pulmonary disease): (13) Hypothyroidism: (14) Hypertension: (15) Dyslipidemia: (16) Paroxysmal atrial fibrillation: (17) Vitamin D deficiency: (18) CAD (coronary artery disease): (19) GERD (gastroesophageal reflux disease): (20) CHF (congestive heart failure): (21) Diabetes: Plan 87 yo male with PMHx of CKD Stage 4 (previous admission with JUDI requiring temporary dialysis), DVT, DM2 insulin dependent, HTN, hypothyroidism, afib, CAD, BPH, GERD, recurrent bacteremia, aortic stenosis, anxiety, and CHF who presents with unwitnessed fall with concomitant bowel/bladder incontinence and associated hypotension. 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 - UA negative - Blood cx positive for gram positive cocci in chains. - PCR Enterococcus Faecalis positive (VRE not detected) - ID consulted, concern for endocarditis - consider GLO based on recommendations - Continue IV ampicillin #Hypotension - Likely from infection - BP 74/44 in ED, improved with IV fluids - Currently hemodynamically stable #JUDI on CKD stage 4 - Cr 2.9 --> 2.6 --> 2.16 - Baseline ~2. Follows with nephro. - Elevation in creatinine likely secondary to dehydration - Trend BMP QAM #Elevated troponin - Trop 72 on admission, repeat Trop 63 - EKG without ischemic changes, suspect due to demand #Chronic HFpEF #Aortic stenosis #Peripheral edema #CAD/PVD/HLD #Afib -Continue holding home Bumex -cont. metoprolol; eliquis -cont. statin -cont. ASA, statin #DM2 -Lantus + SSI #Diabetic neuropathy -cont. gabapentin #COPD -cont. home inhalers #Anxiety -cont. clonazepam #BPH -cont. finasteride, tamsulosin DVT ppx: Eliquis FEN/GI: DM2, Renal Admission and Anticipated Discharge Date Admission Date: March 19, 2023 Supervising Physician Co-Signing Physician Notes I personally examined the patient and verified all aguayo points of history and exam, discussed case, and agree with decision making with Dr Grissom no new complaints. Patient and note that after he got out of center care, he was home for a few weeks and was actually walking around without a walker and according to the basically back to his baseline and functioning quite well. In discussion of recurrentrecurrent bacteremia, expressed high concern on endocarditis, discussed infectious disease input, and probable need for transesophageal echo versus simply prolonged antibiotics. Answered all questions the best my ability. Revisited goals of care, and it still appears that given that he bounces back surprisingly well between his severe acute illnesses, he would still prefer to have everything done, and given his im provements in between acute episodes, I agree this is quite rational. Vitals noted, in general he is awake and alert pleasant no distress. HEENT normocephalic atraumatic mucous membranes moist. Breathing unlabored no accessory muscle use good effort. Skin shows no rashes no pallor or icterus. Neuro without focal deficits. Recurrent Enterococcus bacteremiahigh concern on endocarditisinfectious disease input pending, anticipate either GLO or prolonged course of antibiotics. Weaknessencouraged movement, especially given that he had gotten back to a high functioning baseline for him, and do not want to see him get deconditioned again. on apixaban Subjective 87 yo male with PMHx of CKD Stage 4 (previous admission with JUDI requiring temporary dialysis), DVT, DM2 insulin dependent, HTN, hypothyroidism, afib, CAD, BPH, GERD, recurrent bacteremia, aortic stenosis, anxiety, and CHF who presents with fall. Patient resting comfortably upon evaluation this morning. Patient is AOx4, is pleasant and conversational. Denies CP, SOB, dysuria. Review of Systems Review of Systems: as above Physical Exam Constitutional: WD/WN, vitals as above Respiratory: normal respiratory effort, lungs clear to auscultation Cardiovascular: Rate/Rhythm: regular rate and regular rhythm Heart Sounds: + murmur (systolic ejection murmur ) Gastrointestinal (Abdomen): normal bowel sounds, soft, nontender, no hepatosplenomegaly Psychiatric: A+Ox3, euthymic affect Results & Data Results & Data Vital Signs (Past 12 Hours) Vital Signs Temp Pulse Pulse Pulse Resp BP Pulse Ox 03/20/23 03:01 36.5 C 61 18 136/65 95 03/20/23 00:35 58 L 03/19/23 23:15 36.4 C L 63 18 149/71 H 97 03/19/23 19:25 36.8 C 68 18 162/68 H 96 O2 Del Method 03/20/23 03:01 Room Air 03/20/23 00:35 03/19/23 23:15 Room Air 03/19/23 19:25 Room Air Laboratory Results Abnormal lab results 03/19/23 03/19/23 03/20/23 Range/Units 16:17 20:23 07:10 RBC 3.27 L (4.70-6.10) M/uL Hgb 9.9 L (14.0-18.0) g/dl Hct 29.3 L (42.0-52.0) % RDW Std Deviation 50.0 H (36.4-46.3) fL RDW Coeff of Adrian 15.1 H (11.5-14.5) % MPV 9.3 L (9.4-12.4) fL Neut # (Auto) 6.64 H (1.40-6.50) K/uL [place] # (Auto) 0.73 H (0.11-0.59) K/uL BUN (6-23) mg/dl Creatinine (0.6-1.4) mg/dl Glucose (70-99(Fasting)) mg/dl POC Glucose 132 H 100 H (70-99) mg/dl Albumin (3.4-5.0) gm/dl Procalcitonin (0-0.5) ng/ml 03/20/23 03/20/23 03/20/23 Range/Units 07:10 07:10 07:32 RBC (4.70-6.10) M/uL Hgb (14.0-18.0) g/dl Hct (42.0-52.0) % RDW Std Deviation (36.4-46.3) fL RDW Coeff of Adrian (11.5-14.5) % MPV (9.4-12.4) fL Neut # (Auto) (1.40-6.50) K/uL [place] # (Auto) (0.11-0.59) K/uL BUN 35 H (6-23) mg/dl Creatinine 2.16 H D (0.6-1.4) mg/dl Glucose 55 L (70-99(Fasting)) mg/dl POC Glucose 64 L* (70-99) mg/dl Albumin 3.1 L (3.4-5.0) gm/dl Procalcitonin 20.25 H (0-0.5) ng/ml 03/20/23 03/20/23 Range/Units 07:33 11:32 RBC (4.70-6.10) M/uL Hgb (14.0-18.0) g/dl Hct (42.0-52.0) % RDW Std Deviation (36.4-46.3) fL RDW Coeff of Adrian (11.5-14.5) % MPV (9.4-12.4) fL Neut # (Auto) (1.40-6.50) K/uL [place] # (Auto) (0.11-0.59) K/uL BUN (6-23) mg/dl Creatinine (0.6-1.4) mg/dl Glucose (70-99(Fasting)) mg/dl POC Glucose 67 L* 140 H (70-99) mg/dl Albumin (3.4-5.0) gm/dl Procalcitonin (0-0.5) ng/ml Resident Activity Tracking Resident Involvement: Resident Care Provided Care Provided: Adult Hospital Medicine (12) COPD (chronic obstructive pulmonary disease) COPD type: unspecified COPD Qualified Code(s): J44.9 - Chronic obstructive pulmonary disease, unspecified (13) Hypothyroidism Hypothyroidism type: unspecified Qualified Code(s): E03.9 - Hypothyroidism, unspecified (14) Hypertension Hypertension type: essential hypertension Qualified Code(s): I10 - Essential (primary) hypertension (18) CAD (coronary artery disease) Associated angina: without angina Coronary Disease-Associated Artery/Lesion type: [place] artery [place] vs. transplanted heart: [place] heart Qualified Code(s): I25.10 - Atherosclerotic heart disease of [place] coronary artery without angina pectoris (19) GERD (gastroesophageal reflux disease) Esophagitis presence: esophagitis presence not specified Qualified Code(s): K21.9 - Gastro-esophageal reflux disease without esophagitis (20) CHF (congestive heart failure) Heart failure chronicity: unspecified Heart failure type: unspecified Qualif ied Code(s): I50.9 - Heart failure, unspecified (21) Diabetes Diabetes mellitus complication status: with hyperglycemia Diabetes mellitus fpc insulin use: with fpc use Diabetes mellitus type: type 2 Qualified Code(s): E11.65 - Type 2 diabetes mellitus with hyperglycemia; Z79.4 - MCC (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
[2023-03-20 07:48] LABS: Basophils # (auto) 0.03 K/uL (0.00-0.20); Basophils % (auto) 0.3 %; Eosinophils # (auto) 0.13 K/uL (0.00-0.50); Eosinophils % (auto) 1.3 %; Hematocrit (blood only) 29.3 % (42.0-52.0); Hemoglobin 9.9 g/dl (14.0-18.0); Immature Granulocytes # (auto) 0.07 K/uL (0.01-0.20); Immature Granulocytes % (auto) 0.7 %; Lymphocytes # (auto) 2.05 K/uL (1.20-3.40); Lymphocytes % (auto) 21.2 %; Mean Corpuscular Hemoglobin 30.3 pg (25.0-34.0); Mean Corpuscular Hgb Conc 33.8 g/dL (32.0-36.0); Mean Corpuscular Volume 89.6 fL (80.0-100.0); Mean Platelet Volume 9.3 fL (9.4-12.4); Monocytes # (auto) 0.73 K/uL (0.11-0.59); Monocytes % (auto) 7.6 %; Neutrophils # (auto) 6.64 K/uL (1.40-6.50); Neutrophils % (auto) 68.9 %; Platelet Count 156 K/uL (130-400); RDW Coefficient of Variation 15.1 % (11.5-14.5); Red Blood Count 3.27 M/uL (4.70-6.10); White Blood Count 9.65 K/ul (4.8-10.8)
[2023-03-20 08:05] LABS: Albumin Level 3.1 gm/dl (3.4-5.0); BUN Creatinine Ratio 16.2 (10-20); Bilirubin,Total 0.3 mg/dl (0.2-1.0); Calcium 8.8 mg/dl (8.6-10.3); Creatinine Clr Calc Pharmacy 25.7 ml/min; Est GFR (African American) 30.8 ml/min; Est GFR (Non-African American) 26.6 ml/min; Globulin 3.2 gm/dl (2.5-4.0); Potassium 3.8 mmol/L (3.5-5.1); Total Protein 6.3 gm/dl (6.0-8.3)
[2023-03-20] MEDS: UMECLIDINIUM BROMIDE 62.5MCG/BLISTER 7 PUFFS/INHALER INH SCH (08:24)
[2023-03-20] MEDS: PANTOprazole 40 MG TAB PO SCH ×2 (08:24→20:26)
[2023-03-20] MEDS: METOPROLOL TARTRATE 25 MG TAB PO SCH ×2 (08:24→20:24)
[2023-03-20] MEDS: APIXABAN 2.5 MG TAB PO SCH ×2 (08:25→20:24)
[2023-03-20] MEDS: GABAPENTIN 100 MG CAP PO SCH (08:25)
[2023-03-20] MEDS: FLUTICASONE/VILANTEROL 100/25MCG 14 PUFFS/INHALER INH SCH (08:25)
[2023-03-20] MEDS: ASPIRIN 81 MG ECTAB PO SCH (08:25)
[2023-03-20] MEDS: INSULIN ASPART PER UNIT CHARGE SC SCH ×4 (08:28→20:32)
[2023-03-20] MEDS: LANTUS PER UNIT CHARGE SQ SCH (08:32)
[2023-03-20] MEDS: clonazePAM 1 MG TAB PO SCH ×2 (08:34→20:23)
--- NOTE | 2023-03-20 18:28 | Billing Data ---
Date of Service March 20, 2023 Coding Level of Care Code 07757 SUB INP/OBS CARE
--- NOTE | 2023-03-20 18:59 | Infectious Disease Consult ---
Date of Consultation March 20, 2023 Assessment & Plan (1) Recurrent bacteremia: Plan #Efaecalis bacteremia, recurrent #CKD MICRO 01/20 Blood cultures E. faecalis, Amp sensitive 01/20 Ucx three types of organism all high counts probable skin gilma 01/22 blood culture E. faecalis Amp sensitive 01/24 Bcx no growth to date 03/18 Bcx E. faecalis 87 yo male with a past medical history of CKD, DVT, DM, HTN, pAfib on eliquis, CAD, BPH, GERD, CHF who presents to the hospital on 01/20/2023 for hypoglycemia, weakness and worsened AMS, recently admitted with E. faecalis bacteremia treated and readmitted on 03/18 after a fall. Patient is now bacteremia with E. faecalis, ID consulted. During his last admission, patient very weak and fell. The following day he c/o chest pain but did not want her to take him to the hospital or call EMS. He had episodes of confusion and disorientation before. On day of admit, he was found to be hypoglycemic. Notably large blisters on his legs since getting home from the hospital. She states one of the blisters got very large and popped and states that it drained pus. Recently discharged from hospital on 01/16, admitted with JUDI, dx with acute interstitial nephritis. On admission on 01/20, WBC normal, but patient found to be altered and concern for UTI. WBC normal, Cr 2.08 He was given Vancomycin and ceftriaxone. 01/20 Blood cultures E. faecalis, Amp sensitive 01/20 Ucx three types of organism all high counts probable skin gilma 2DE negative then. He was treated 2 weeks of ampicillin from first negative culture through 02/07/23. Patient was treated but had sudden fall and readmitted on 03/18. 03/18 GPC, Rapidly ID E. faecalis (no resistance). ID now consulted. RECOMMEND: -Planned GLO -Agree with ampicillin -Blood cultuers q24-48 hours until clearance -Anticipate prolonged therapy -Will clarify cephalosporin allergy in am Sanam Manzano MD Infectious Diseases Consultation Information This patient recommendation is based on a telemedicine consult request which was completed asynchronously through chart review and information provided by the primary physician. The patient was not seen or examined today. The evaluation is consultative in nature and all patient care and treatment decisions can either be accepted or rejected by the patient's primary hospital-based treating physician using their own independent medical judgment for their patient. Delivery Agent contact information: Please call [facility] . (Phone Number For Physician Use Only) Time Spent Reviewing Chart: 31+ minutes History of Present Illness Reason for Consultation: Recurrent bacteremia Requesting Physician: Dr. Harrell Attending Physician: Alexandru Harrell, History of Present Illness 87 yo male with a past medical history of CKD, DVT, DM, HTN, pAfib on eliquis, CAD, BPH, GERD, CHF who presents to the hospital on 01/20/2023 for hypoglycemia, weakness and worsened AMS, recently admitted with E. faecalis bacteremia treated and readmitted on 03/18 after a fall. Patient is now bacteremia with E. faecalis, ID consulted. During his last admission, patient very weak and fell. The following day he c/o chest pain but did not want her to take him to the hospital or call EMS. He had episodes of confusion and disorientation before. On day of admit, he was found to be hypoglycemic. Notably large blisters on his legs since getting home from the hospital. She states one of the blisters got very large and popped and states that it drained pus. Recently discharged from hospital on 01/16, admitted with JUDI, dx with acute interstitial nephritis. On admission on 01/20, WBC normal, but patient found to be altered and concern for UTI. WBC normal, Cr 2.08 He was given Vancomycin and ceftriaxone. 01/20 Blood cultures E. faecalis, Amp sensitive 01/20 Ucx three types of organism all high counts probable skin gilma 2DE negative then. He was treated 2 weeks of ampicillin from first negative culture through 02/07/23. Patient was treated but had sudden fall and readmitted on 03/18. 03/18 GPC, Rapidly ID E. faecalis (no resistance). ID now consulted. Allergies Allergy/AdvReac Type Severity Reaction Status Date / Time Cephalosporins Allergy Unknown Verified 03/19/23 00:43 ciprofloxacin [From Cipro] AdvReac Severe Unknown Verified 03/19/23 00:43 semaglutide [From Ozempic] AdvReac Severe NAUSEA/VOMI Verified 03/19/23 00:43 TING/ANOREX IA amlodipine AdvReac Intermediate SWELLING Verified 03/19/23 00:43 OF ANKLES ropinirole AdvReac Intermediate CHANGE IN Verified 03/19/23 00:43 MENTAL STATUS silver [From SilvaSorb] AdvReac (silver Verified 03/19/23 02:04 dressings) redness of skin Home Medications Medication Instructions Recorded Confirmed Type albuterol sulfate 90 mcg/actuation 2 puffs inhalation Q6H PRN 01/10/19 03/19/23 History aerosol inhaler shortness of breath or wheezing levothyroxine 88 mcg tablet 75 mcg PO DAILYBB #90 tabs 01/10/19 03/19/23 History potassium chloride 20 mEq 20 meq PO BID 01/10/19 03/19/23 History tablet,extended release finasteride 5 mg tablet 5 mg PO HS 04/23/19 03/19/23 History gabapentin 100 mg capsule See Rx Instructions .Route .COMPLEX 12/16/20 03/19/23 History aspirin 81 mg tablet,delayed 81 mg PO DAILY 10/11/21 03/19/23 History release pantoprazole 20 mg tablet,delayed 20 mg PO BID 02/07/22 03/19/23 History release acetaminophen 500 mg tablet 1,000 mg PO Q6H PRN PAIN/FEVER 05/28/22 03/19/23 History (Tylenol Extra Strength) clonazepam 1 mg tablet 1 mg PO BID 05/28/22 03/19/23 History fluticasone 500 mcg-salmeterol 50 1 inh inhalation BID 05/28/22 03/19/23 History mcg/dose blistr powdr for inhalation metoprolol tartrate 50 mg tablet 25 mg PO BID 05/28/22 03/19/23 History multivitamin with minerals 1 tab PO DAILY 05/28/22 03/19/23 History rosuvastatin 20 mg tablet 20 mg PO HS 05/28/22 03/19/23 History tiotropium bromide 2.5 2 puff inhalation DAILY 05/28/22 03/19/23 History mcg/actuation mist for inhalation vitamins A,C,X-pwqe-owighq 2,148 1 tab PO DAILY 05/28/22 03/19/23 History mcg-113 mg-45 mg-17.4 mg tablet (PreserVision AREDS) apixaban 5 mg tablet (Eliquis) 2.5 mg PO Q12H 12/29/22 03/19/23 History calcium citrate 315 mg-vitamin D3 2 tab PO DAILY 12/29/22 03/19/23 History 5 mcg (200 unit) tablet (Calcium Citrate + D) loratadine 10 mg tablet (Claritin) 10 mg PO DAILY PRN Congestion 12/29/22 03/19/23 History tamsulosin 0.4 mg capsule (Flomax) 0.8 mg PO HS 12/29/22 03/19/23 History insulin aspart U-100 100 unit/mL 14 unit subcut TIDWMEAL 03/19/23 03/19/23 History subcutaneous solution (Novolog U-100 Insulin aspart) insulin glargine 100 unit/mL (3 26 unit subcut BID 03/19/23 03/19/23 History mL) subcutaneous pen (Lantus Solostar U-100 Insulin) Patient History Medical History Abdominal distension Acidosis Acute hyperkalemia Acute hyponatremia Acute kidney injury Acute pyelonephritis Acute renal failure Acute UTI (urinary tract infection) Acute UTI (urinary tract infection) Uyvsp-po-kopvtte kidney injury JUDI (acute kidney injury) AMS (altered mental status) AMS (altered mental status) Anemia of chronic disease Anemia of chronic disease Anxiety Aortic stenosis Mild per 03/06/19 stress ECHO Asthma Uses rescue inhaler a couple times per week Atrial fibrillation Follows with Dr. Gr Bacteremia Blindness of left eye Bradycardia CAD (coronary artery disease) Angioplasty ~1993, CABG x 3 2013 (GALINDO to LAD, SVG to PDA, SVG to OM) Cellulitis CHF (congestive heart failure) Chronic kidney disease Follows with Dr. Dixon Chronic obstructive pulmonary disease Diabetes Type 2 IDDM Diabetic infection of right foot DVT (deep venous thrombosis) Fluid overload Foot ulcer GERD (gastroesophageal reflux disease) Headache Herpes zoster Hiatal hernia History of deep venous thrombosis (DVT) of distal vein of left lower extremity Hyperkalemia Hyperlipidemia Hyperosmolar hyperglycemic state (HHS) Hypertension Hypoglycemia Hypoglycemia due to insulin Hypothyroidism Leg wound, left Leukocytosis Macular degeneration Mild aortic stenosis Moderate aortic stenosis Myocardial infarct ~1993 Non-ST elevation PR (NSTEMI) Peripheral neuropathy Peripheral vascular disease Pneumonia Respiratory failure Rupture of left distal biceps tendon hx - no surgery Secondary hyperparathyroidism (of renal origin) Sepsis Sepsis Thrombocytopenia UTI (urinary tract infection) UTI (urinary tract infection) Wound of lower extremity Surgical History Fusion of spine lumbar History of appendectomy History of cardiac cath with angioplasty ~1993 ([facility]) & 2013 ([facility]) History of cataract surgery bilateral History of coronary artery bypass graft x3 vessels ([facility] 2013) with epicardial RFA of pulmonary veins and left atrial appendage ligation History of revision of total replacement of right knee joint History of tonsillectomy History of tooth extraction History of total left knee replacement History of total right knee replacement Hx of colonoscopy Previous back surgery (08/26/12) S/P cholecystectomy Family History Brother Heart disease Diabetes Sister Cancer Mother Diabetes Father Diabetes Other Hypertension Kidney disease Social History Smoking Status: Never smoker Tobacco Type: Cigarettes Second Hand Exposure: No; Do You Dip or Chew Tobacco: No; Hx Alcohol Use: No Hx Substance Use: No Preferred Language: Andorran Communication Ability: Effective Visual Impairment: Partially Limited Hide House Supervisor Required: No Beliefs That Will Affect Care: None marital status: Current Living Situation: Spouse Current Living Situation Comment: lives at home with current occupational status: retired Feels Safe at Home: Yes Assistive Devices: Bedside Commode, Scooter/Electric Scooter, Walker and Wheelchair Results & Data Vital Signs (Past 12 Hours) Vital Signs Temp Pulse Pulse Resp BP Pulse Ox O2 Del Method 03/20/23 16:06 37.2 C 79 18 161/65 H 95 Room Air 03/20/23 16:18 65 03/20/23 07:12 65 03/20/23 11:51 36.8 C 71 18 147/70 H 97 Room Air 03/20/23 07:41 36.7 C 78 18 116/64 95 Room Air Laboratory Results Microbiology 03/18/23 20:17 Blood Aerobic Blood Culture - Preliminary Gram positive cocci in chains 03/18/23 20:17 Blood Anaerobic Blood Culture - Preliminary Gram positive cocci in chains 03/18/23 20:17 Blood Aerobic Blood Culture - Preliminary Gram positive cocci in chains 03/18/23 20:17 Blood Anaerobic Blood Culture - Preliminary Gram positive cocci in chains Medications Administered Current Inpatient Medications Acetaminophen (Acetaminophen 325 Mg Tab) 650 mg PO Q4H PRN PRN Reason: Pain or Fever Stop: 04/18/23 01:58 Albuterol (Albuterol Hfa 8 Gm Inhaler) 2 puffs INH Q6H PRN PRN Reason: shortness of breath or wheezing Stop: 04/18/23 01:58 Apixaban (Apixaban 2.5 Mg Tab) 2.5 mg PO Q12H VANDANA Stop: 04/18/23 08:59 Last Admin: 03/20/23 08:25 Dose: 2.5 mg Aspirin (Aspirin 81 Mg Ectab) 81 mg PO DAILY VANDANA Stop: 04/18/23 08:59 Last Admin: 03/20/23 08:25 Dose: 81 mg Clonazepam (Clonazepam 1 Mg Tab) 1 mg PO BID VANDANA Stop: 04/18/23 08:59 Last Admin: 03/20/23 08:34 Dose: 1 mg Dextrose (Dextrose 50% 50 Ml Syringe) 25 - 50 ml IV UD PRN; Protocol PRN Reason: Hypoglycemia Protocol Stop: 04/18/23 01:58 Finasteride (Finasteride 5 Mg Tab) 5 mg PO HS VANDANA Stop: 04/18/23 20:59 Last Admin: 03/19/23 21:03 Dose: 5 mg Fluticasone/Vilanterol (Fluticasone/Vilanterol 100/25mcg 14 Puffs/Inhaler) 1 puffs INH DAILY VANDANA Stop: 04/18/23 08:59 Last Admin: 03/20/23 08:25 Dose: 1 puffs Gabapentin (Gabapentin 100 Mg Cap) 100 mg PO QAM VANDANA Stop: 04/18/23 08:59 Last Admin: 03/20/23 08:25 Dose: 100 mg Gabapentin (Gabapentin 300 Mg Cap) 300 mg PO HS VANDANA Stop: 04/18/23 20:59 Last Admin: 03/19/23 21:36 Dose: 300 mg Glucagon (Glucagon For Inj 1 Mg Vial) 1 mg SQ UD PRN; Protocol PRN Reason: Hypoglycemia Protocol Stop: 04/18/23 01:58 Glucose (Glucose 10 Tab/Tube) 4 - 8 tab PO UD PRN; Protocol PRN Reason: Hypoglycemia Treatment Stop: 04/18/23 01:58 Glucose (Glucose 40% Gel 15 Gm Tube) 15 - 30 gm PO UD PRN; Protocol PRN Reason: Hypoglycemia Protocol Stop: 04/18/23 01:58 Ampicillin Sodium 2,000 mg/ (Sodium Chloride) 58 mls @ 100 mls/hr IV Q8H VANDANA; Protocol Stop: 04/02/23 13:59 Last Infusion: 03/20/23 14:03 Dose: Infused Insulin Aspart (Insulin Aspart Per Unit Charge) 0 units SC ACHS [facility] Stop: 04/18/23 07:29 Last Admin: 03/20/23 17:09 Dose: 3 units Insulin Glargine (Lantus Per Unit Charge) 26 units SQ BID [facility] Stop: 04/18/23 08:59 Last Admin: 03/20/23 08:32 Dose: Not Given Levothyroxine Sodium (Levothyroxine Sodium 88 Mcg Tablet) 88 mcg PO DAILYBB VANDANA Stop: 04/18/23 06:29 Last Admin: 03/20/23 05:25 Dose: 88 mcg Metoprolol Tartrate (Metoprolol Tartrate 25 Mg Tab) 25 mg PO BID [facility] Stop: 04/18/23 08:59 Last Admin: 03/20/23 08:24 Dose: 25 mg Miscellaneous (Carbohydrates For Hypoglycemia ) 15 - 30 gm PO UD PRN PRN Reason: Hypoglycemia Protocol Stop: 04/18/23 01:58 Last Admin: 03/20/23 07:33 Dose: 15 gm Ondansetron HCl (Ondansetron 4 Mg Od Tab) 4 mg PO Q6H PRN PRN Reason: Nausea Stop: 04/18/23 01:58 Pantoprazole Sodium (Pantoprazole 40 Mg Tab) 40 mg PO BID [facility] Stop: 04/18/23 08:59 Last Admin: 03/20/23 08:24 Dose: 40 mg Polyethylene Glycol (Polyethylene (Miralax) 17 Gm Pack) 17 gm PO DAILY PRN PRN Reason: Constipation Stop: 04/18/23 01:58 Rosuvastatin Calcium (Rosuvastatin Calcium 20 Mg Tab) 20 mg PO HS [facility] Stop: 04/18/23 20:59 Last Admin: 03/19/23 21:02 Dose: 20 mg Tamsulosin HCl (Tamsulosin Hcl 0.4 Mg Cap) 0.8 mg PO HS [facility] Stop: 04/18/23 20:59 Last Admin: 03/19/23 21:04 Dose: 0.8 mg Umeclidinium [place] (Umeclidinium [place] 62.5mcg/Blister 7 Puffs/Inhaler) 1 puffs INH DAILY [facility] Stop: 04/18/23 08:59 Last Admin: 03/20/23 08:24 Dose: 1 puffs
[2023-03-20] MEDS: GABAPENTIN 300 MG CAP PO SCH (20:24)
[2023-03-20] MEDS: TAMSULOSIN HCL 0.4 MG CAP PO SCH (20:25)
[2023-03-20] MEDS: FINASTERIDE 5 MG TAB PO SCH (20:25)
[2023-03-20] MEDS: ROSUVASTATIN CALCIUM 20 MG TAB PO SCH (20:26)
[2023-03-21] MEDS ORDERED: DAPTOmycin 525 MG in SYRINGE 0 ML IV SCH (01:00)
--- NOTE | 2023-03-21 05:29 | Electrocardiogram Report ---
Test Reason : Blood Pressure : / mmHG Vent. Rate : 067 BPM Atrial Rate : 067 BPM P-R Int : 226 ms QRS Dur : 154 ms QT Int : 426 ms P-R-T Axes : 073 -37 -17 degrees QTc Int : 450 ms Sinus rhythm with 1st degree A-V block Left axis deviation Right bundle branch block Minimal voltage criteria for LVH, may be normal variant ( R in aVL ) Abnormal ECG When compared with ECG of 20-JAN-2023 15:30, T wave inversion now evident in Inferior leads Nonspecific T wave abnormality, improved in Lateral leads Confirmed by Davis Dillard ([id number]) on 03/21/2023 5:28:53 AM Referred By: REFERRED SELF Confirmed By:Davis Dillard
[2023-03-21] MEDS: AMPICILLIN 2,000 MG in SODIUM CHLORIDE 0.9% 50 ML IV SCH (06:15)
[2023-03-21] MEDS: LEVOTHYROXINE SODIUM 88 MCG TABLET PO SCH (06:15)
--- NOTE | 2023-03-21 06:54 | Hospitalist Progress Note ---
Date of Service March 21, 2023 Assessment & Plan (1) Hypotension: (2) Elevated troponin I level: (3) Recurrent bacteremia: (4) Anxiety: (5) Anemia of chronic disease: (6) Chronic kidney disease, stage 4 (severe): (7) Acute kidney injury superimposed on CKD: (8) Moderate calcific aortic stenosis: (9) Peripheral vascular disease: (10) Lower extremity edema: (11) Benign prostatic hyperplasia with urinary obstruction: (12) COPD (chronic obstructive pulmonary disease): (13) Hypothyroidism: (14) Hypertension: (15) Dyslipidemia: (16) Paroxysmal atrial fibrillation: (17) Vitamin D deficiency: (18) CAD (coronary artery disease): (19) GERD (gastroesophageal reflux disease): (20) CHF (congestive heart failure): (21) Diabetes: Plan 87 yo male with PMHx of CKD Stage 4 (previous admission with JUDI requiring temporary dialysis), DVT, DM2 insulin dependent, HTN, hypothyroidism, afib, CAD, BPH, GERD, recurrent bacteremia, aortic stenosis, anxiety, and CHF who presents with unwitnessed fall with concomitant bowel/bladder incontinence and associated hypotension. 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 - UA negative - Blood cx positive for gram positive cocci in chains. - PCR Enterococcus Faecalis positive (VRE not detected) - ID consulted, appreciate recs: - GLO ordered - Repeat blood cultures obtained, results pending - Continue IV ampicillin - Patient likely to need extended course of IV ampicillin following discharge, PT/OT evaluation ordered to determine need for placement. Case mangement following. #Hypotension (resolved) - Likely from infection - BP 74/44 in ED, improved with IV fluids - Currently hemodynamically stable #JUDI on CKD stage 4 - Cr 2.9 --> 2.6 --> 2.16--> 1.95 - Baseline ~2. Follows with nephro. - Elevation in creatinine likely secondary to dehydration - Trend BMP QAM #Elevated troponin - Trop 72 on admission, repeat Trop 63 - EKG without ischemic changes, suspect due to demand #Chronic HFpEF #Aortic stenosis #Peripheral edema #CAD/PVD/HLD #Afib -Continue holding home Bumex -cont. metoprolol; eliquis -cont. statin -cont. ASA, statin #DM2 -Lantus + SSI #Diabetic neuropathy -cont. gabapentin #COPD -cont. home inhalers #Anxiety -cont. clonazepam #BPH -cont. finasteride, tamsulosin DVT ppx: Eliquis FEN/GI: DM2 Admission and Anticipated Discharge Date Admission Date: March 19, 2023 Supervising Physician Co-Signing Physician Notes I personally examined the patient and verified all agu[place] points of history and exam, discussed case, and agree with decision making with Dr Grissom Feeling okay. No new problems. Discussed with cardiologyfor GLO, discussed with patient I am not sure of the exact timing but I expect it to be tomorrow. He notes his feet hurt too much to stand on. Vitals noted, in general he is awake and alert pleasant no distress. HEENT normocephalic atraumatic mucous membranes moist. Breathing unlabored no accessory muscle use good effort. Skin shows no rashes no pallor or icterus. Neuro without focal deficits. He does have a degree of foot edemaprobably about 1+, and the soles of his feet are a little bit tender to push on because of this. Does have 1 small area of sort of scab sort of ulceration on his left great toe, although it is nontender. Recurrent Enterococcus bacteremiahigh concern on endocarditisinfectious disease input Appreciatedcontinue ampicillin for now, awaiting final speciation and follow-up cultures to be clearly negative. For TEEpresumably tomorrow. Weaknessencouraged movement, especially given that he had gotten back to a high functioning baseline for him, and do not want to see him get deconditioned again. His feet examined pretty normal I suspect that his foot pain might just be from skin edema/stretchingcompression socks and encouraged movement. on apixaban Subjective 87 yo male with PMHx of CKD Stage 4 (previous admission with JUDI requiring temporary dialysis), DVT, DM2 insulin dependent, HTN, hypothyroidism, afib, CAD, BPH, GERD, recurrent bacteremia, aortic stenosis, anxiety, and CHF who presents with fall. Patient resting comfortably upon evaluation this morning, his was also present in the room. Patient is AOx4 but appears slightly more confused than yesterday, endorses bilateral foot pain/stiffness which he attributes to not walking much since admission. Discussed plan for care, patient is amenable to GLO as recommended by ID. Denies CP, SOB, dysuria. Review of Systems Review of Systems: as per HPI Physical Exam Constitutional: WD/WN, vitals as above Respiratory: normal respiratory effort, lungs clear to auscultation Cardiovascular: Rate/Rhythm: regular rate and regular rhythm Heart Sounds: + murmur (systolic ejection murmur ) Gastrointestinal (Abdomen): normal bowel sounds, soft, nontender, no hepatosplenomegaly Psychiatric: A+Ox3, euthymic affect Results & Data Results & Data Vital Signs (Past 12 Hours) Vital Signs Temp Pulse Pulse Resp BP Pulse Ox O2 Del Method 03/21/23 03:11 37.7 C H 85 20 168/71 H 93 Room Air 03/21/23 00:41 87 03/20/23 20:00 Room Air 03/20/23 22:35 37.0 C 80 20 161/67 H 95 Room Air 03/20/23 19:24 37.3 C 73 18 144/75 H 94 Room Air Laboratory Results Abnormal lab results 03/20/23 03/20/23 03/20/23 Range/Units 11:32 16:23 20:09 RBC (4.70-6.10) M/uL Hgb (14.0-18.0) g/dl Hct (42.0-52.0) % RDW Std Deviation (36.4-46.3) fL RDW Coeff of Adrian (11.5-14.5) % BUN (6-23) mg/dl Creatinine (0.6-1.4) mg/dl Glucose (70-99(Fasting)) mg/dl POC Glucose 140 H 163 H 125 H (70-99) mg/dl 03/21/23 03/21/23 03/21/23 Range/Units 06:17 06:17 08:12 RBC 3.29 L (4.70-6.10) M/uL Hgb 10.0 L (14.0-18.0) g/dl Hct 29.8 L (42.0-52.0) % RDW Std Deviation 49.0 H (36.4-46.3) fL RDW Coeff of Adrian 14.8 H (11.5-14.5) % BUN 26 H (6-23) mg/dl Creatinine 1.95 H (0.6-1.4) mg/dl Glucose 57 L (70-99(Fasting)) mg/dl POC Glucose 68 L* (70-99) mg/dl Resident Activity Tracking Resident Involvement: Resident Care Provided Care Provided: Adult Hospital Medicine (12) COPD (chronic obstructive pulmonary disease) COPD type: unspecified COPD Qualified Code(s): J44.9 - Chronic obstructive pulmonary disease, unspecified (13) Hypothyroidism Hypothyroidism type: unspecified Qualified Code(s): E03.9 - Hypothyroidism, unspecified (14) Hypertension Hypertension type: essential hypertension Qualified Code(s): I10 - Essential (primary) hypertension (18) CAD (coronary artery disease) Associated angina: without angina Coronary Disease-Associated Artery/Lesion type: [place] artery [place] vs. transplanted heart: [place] heart Qualified Code(s): I25.10 - Atherosclerotic heart disease of [place] coronary artery without angina pectoris (19) GERD (gastroesophageal reflux disease) Esophagitis presence: esophagitis presence not specified Qualified Code(s): K21.9 - Gastro-esophageal reflux disease without esophagitis (20) CHF (congestive heart failure) Heart failure chronicity: unspecified Heart failure type: unspecified [place] lified Code(s): I50.9 - Heart failure, unspecified (21) Diabetes Diabetes mellitus complication status: with hyperglycemia Diabetes mellitus correction insulin use: with exterminator helper use Diabetes mellitus type: type 2 Qualified Code(s): E11.65 - Type 2 diabetes mellitus with hyperglycemia; Z79.4 - lobsterman (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
[2023-03-21 07:03] LABS: Hematocrit (blood only) 29.8 % (42.0-52.0); Mean Corpuscular Hemoglobin 30.4 pg (25.0-34.0); Mean Corpuscular Hgb Conc 33.6 g/dL (32.0-36.0); Mean Corpuscular Volume 90.6 fL (80.0-100.0); Mean Platelet Volume 9.6 fL (9.4-12.4); Platelet Count 146 K/uL (130-400); RDW Coefficient of Variation 14.8 % (11.5-14.5); Red Blood Count 3.29 M/uL (4.70-6.10); White Blood Count 9.66 K/ul (4.8-10.8)
[2023-03-21 07:39] LABS: BUN Creatinine Ratio 13.3 (10-20); Calcium 8.7 mg/dl (8.6-10.3); Creatinine Clr Calc Pharmacy 27.8 ml/min; Est GFR (African American) 34.8 ml/min; Potassium 3.5 mmol/L (3.5-5.1)
[2023-03-21] MEDS: ASPIRIN 81 MG ECTAB PO SCH (08:02)
[2023-03-21] MEDS: GABAPENTIN 100 MG CAP PO SCH (08:02)
[2023-03-21] MEDS: PANTOprazole 40 MG TAB PO SCH ×2 (08:03→20:41)
[2023-03-21] MEDS: APIXABAN 2.5 MG TAB PO SCH (08:03)
[2023-03-21] MEDS: METOPROLOL TARTRATE 25 MG TAB PO SCH ×2 (08:04→20:41)
[2023-03-21] MEDS: FLUTICASONE/VILANTEROL 100/25MCG 14 PUFFS/INHALER INH SCH (08:04)
[2023-03-21] MEDS: UMECLIDINIUM BROMIDE 62.5MCG/BLISTER 7 PUFFS/INHALER INH SCH (08:05)
[2023-03-21] MEDS: clonazePAM 1 MG TAB PO SCH ×2 (08:22→20:41)
[2023-03-21] MEDS: INSULIN ASPART PER UNIT CHARGE SC SCH ×4 (08:25→20:39)
--- NOTE | 2023-03-21 09:32 | Infectious Disease Progress Nt ---
Date of Service March 21, 2023 Assessment & Plan (1) Recurrent bacteremia: Plan #Efaecalis bacteremia, recurrent #CKD MICRO 01/20 Blood cultures E. faecalis, Amp sensitive 01/20 Ucx three types of organism all high counts probable skin gilma 01/22 blood culture E. faecalis Amp sensitive 01/24 Bcx no growth to date 03/18 Bcx E. faecalis 03/20 Blcx in lab 87 yo male with a past medical history of CKD, DVT, DM, HTN, pAfib on eliquis, CAD, BPH, GERD, CHF who presents to the hospital on 01/20/2023 for hypoglycemia, weakness and worsened AMS, recently admitted with E. faecalis bacteremia treated and readmitted on 03/18 after a fall. Patient is now bacteremia with E. faecalis, ID consulted. During his last admission, patient very weak and fell. The following day he c/o chest pain but did not want her to take him to the hospital or call EMS. He had episodes of confusion and disorientation before. On day of admit, he was found to be hypoglycemic. Notably large blisters on his legs since getting home from the hospital. She states one of the blisters got very large and popped and states that it drained pus. Recently discharged from hospital on 01/16, admitted with JUDI, dx with acute interstitial nephritis. On admission on 01/20, WBC normal, but patient found to be altered and concern for UTI. WBC normal, Cr 2.08 He was given Vancomycin and ceftriaxone. 01/20 Blood cultures E. faecalis, Amp sensitive 01/20 Ucx three types of organism all high counts probable skin gilma 2DE negative then. He was treated 2 weeks of ampicillin from first negative culture through 02/07/23. Patient was treated but had sudden fall and readmitted on 03/18. 03/18 GPC, Rapidly ID E. faecalis (no resistance). ID now consulted. RECOMMEND: -Planned GLO -C/W Ampicillin, if endocarditis present would recommend addition of ceftriaxone if no actual allergy. -Blood cultuers q24-48 hours until clearance, will order set today as 03/20 pending -Anticipate prolonged therapy, nonetheless Sanam Manzano MD Infectious Diseases Admission and Anticipated Discharge Date Admission Date: March 19, 2023 Subjective This patient recommendation is based on a telemedicine consult request which was completed asynchronously through chart review and information provided by the primary physician. The patient was not seen or examined today. The evaluation is consultative in nature and all patient care and treatment decisions can either be accepted or rejected by the patient's primary hospital-based treating physician using their own independent medical judgment for their patient. Time Spent Reviewing Chart: 31+ minutes Results & Data Vital Signs (Past 12 Hours) Vital Signs Temp Pulse Pulse Resp BP Pulse Ox O2 Del Method 03/21/23 07:43 37.1 C 81 17 144/64 H 91 Room Air 03/21/23 03:11 37.7 C H 85 20 168/71 H 93 Room Air 03/21/23 00:41 87 03/20/23 22:35 37.0 C 80 20 161/67 H 95 Room Air Laboratory Results Laboratory Results - last 48 hr 03/18/23 03/19/23 03/19/23 20:17 11:21 16:17 WBC RBC Hgb Hct MCV MCH MCHC RDW Std Deviation RDW Coeff of Adrian Plt Count MPV Immature Gran % (Auto) Neut % (Auto) Lymph % (Auto) [place] % (Auto) Eos % (Auto) Baso % (Auto) Neut # (Auto) Lymph # (Auto) [place] # (Auto) Eos # (Auto) Baso # (Auto) Immature Gran # (Auto) Sodium Potassium Chloride Carbon Dioxide Anion Gap BUN Creatinine Est Cr Clr Drug Dosing Est GFR ( Amer) Est GFR (Non-Af Amer) BUN/Creatinine Ratio Glucose POC Glucose 145 H 132 H Calcium Magnesium Total Bilirubin AST ALT Alkaline Phosphatase Total Protein Albumin Globulin Albumin/Globulin Ratio Procalcitonin Enterococc faecalis PCR DETECTED A [place]/B-Vanco Res Genes VRE Not Detected Bld Cult ID Panel PCR See PCR Comment 03/19/23 03/20/23 03/20/23 20:23 07:10 07:10 WBC 9.65 RBC 3.27 L Hgb 9.9 L Hct 29.3 L MCV 89.6 MCH 30.3 MCHC 33.8 RDW Std Deviation 50.0 H RDW Coeff of Adrian 15.1 H Plt Count 156 MPV 9.3 L Immature Gran % (Auto) 0.7 Neut % (Auto) 68.9 Lymph % (Auto) 21.2 [place] % (Auto) 7.6 Eos % (Auto) 1.3 Baso % (Auto) 0.3 Neut # (Auto) 6.64 H Lymph # (Auto) 2.05 [place] # (Auto) 0.73 H Eos # (Auto) 0.13 Baso # (Auto) 0.03 Immature Gran # (Auto) 0.07 Sodium 140 Potassium 3.8 Chloride 107 Carbon Dioxide 26 Anion Gap 7 BUN 35 H Creatinine 2.16 H D Est Cr Clr Drug Dosing 25.7 Est GFR ( Amer) 30.8 Est GFR (Non-Af Amer) 26.6 BUN/Creatinine Ratio 16.2 Glucose 55 L POC Glucose 100 H Calcium 8.8 Magnesium 2.0 Total Bilirubin 0.3 AST 24 ALT 13 Alkaline Phosphatase 81 Total Protein 6.3 Albumin 3.1 L Globulin 3.2 Albumin/Globulin Ratio 1.0 Procalcitonin Enterococc faecalis PCR [place]/B-[place]anco Res Genes Bld Cult ID Panel PCR 03/20/23 03/20/23 03/20/23 07:10 07:32 07:33 WBC RBC Hgb Hct MCV MCH MCHC RDW Std Deviation RDW Coeff of Adrian Plt Count MPV Immature Gran % (Auto) Neut % (Auto) Lymph % (Auto) [place] % (Auto) Eos % (Auto) Baso % (Auto) Neut # (Auto) Lymph # (Auto) [place] # (Auto) Eos # (Auto) Baso # (Auto) Immature Gran # (Auto) Sodium Potassium Chloride Carbon Dioxide Anion Gap BUN Creatinine Est Cr Clr Drug Dosing Est GFR ( Amer) Est GFR (Non-Af Amer) BUN/Creatinine Ratio Glucose POC Glucose 64 L* 67 L* Calcium Magnesium Total Bilirubin AST ALT Alkaline Phosphatase Total Protein Albumin Globulin Albumin/Globulin Ratio Procalcitonin 20.25 H Enterococc faecalis PCR [place]/B-[place] Res Genes Bld Cult ID Panel PCR 03/20/23 03/20/23 03/20/23 07:46 11:32 16:23 WBC RBC Hgb Hct MCV MCH MCHC RDW Std Deviation RDW Coeff of [place] Plt Count MPV Immature Gran % (Auto) Neut % (Auto) Lymph % (Auto) [place] % (Auto) Eos % (Auto) Baso % (Auto) Neut # (Auto) Lymph # (Auto) [place] # (Auto) Eos # (Auto) Baso # (Auto) Immature Gran # (Auto) Sodium Potassium Chloride Carbon Dioxide Anion Gap BUN Creatinine Est Cr Clr Drug Dosing Est GFR ( Amer) Est GFR (Non-Af Amer) BUN/Creatinine Ratio Glucose POC Glucose 70 140 H 163 H Calcium Magnesium Total Bilirubin AST ALT Alkaline Phosphatase Total Protein Albumin Globulin Albumin/Globulin Ratio Procalcitonin Enterococc faecalis PCR [place]/B-[place] Res Genes Bld Cult ID Panel PCR 03/20/23 03/21/23 03/21/23 20:09 06:17 06:17 WBC 9.66 RBC 3.29 L Hgb 10.0 L Hct 29.8 L MCV 90.6 MCH 30.4 MCHC 33.6 RDW Std Deviation 49.0 H RDW Coeff of Adrian 14.8 H Plt Count 146 MPV 9.6 Immature Gran % (Auto) Neut % (Auto) Lymph % (Auto) [place] % (Auto) Eos % (Auto) Baso % (Auto) Neut # (Auto) Lymph # (Auto) [place] # (Auto) Eos # (Auto) Baso # (Auto) Immature Gran # (Auto) Sodium 136 Potassium 3.5 Chloride 104 Carbon Dioxide 25 Anion Gap 7 BUN 26 H Creatinine 1.95 H Est Cr Clr Drug Dosing 27.8 Est GFR ( Amer) 34.8 Est GFR (Non-Af Amer) 30.0 BUN/Creatinine Ratio 13.3 Glucose 57 L POC Glucose 125 H Calcium 8.7 Magnesium 2.0 Total Bilirubin AST ALT Alkaline Phosphatase Total Protein Albumin Globulin Albumin/Globulin Ratio Procalcitonin Enterococc faecalis PCR [place] Res Genes Bld Cult ID Panel PCR 03/21/23 08:12 WBC RBC Hgb Hct MCV MCH MCHC RDW Std Deviation RDW Coeff of [place] Plt Count MPV Immature Gran % (Auto) Neut % (Auto) Lymph % (Auto) [place] % (Auto) Eos % (Auto) Baso % (Auto) Neut # (Auto) Lymph # (Auto) [place] # (Auto) Eos # (Auto) Baso # (Auto) Immature Gran # (Auto) Sodium Potassium Chloride Carbon Dioxide Anion Gap BUN Creatinine Est Cr Clr Drug Dosing Est GFR ( Amer) Est GFR (Non-Af Amer) BUN/Creatinine Ratio Glucose POC Glucose 68 L* Calcium Magnesium Total Bilirubin AST ALT Alkaline Phosphatase Total Protein Albumin Globulin Albumin/Globulin Ratio Procalcitonin Enterococc faecalis PCR [place] Res Genes Bld Cult ID Panel PCR Microbiology 03/18/23 20:17 Blood Aerobic Blood Culture - Preliminary Gram positive cocci in chains 03/18/23 20:17 Blood Anaerobic Blood Culture - Preliminary Gram positive cocci in chains 03/18/23 20:17 Blood Aerobic Blood Culture - Preliminary Gram positive cocci in chains 03/18/23 20:17 Blood Anaerobic Blood Culture - Preliminary Gram positive cocci in chains Medications Administered Current Inpatient Medications Acetaminophen (Acetaminophen 325 Mg Tab) 650 mg PO Q4H PRN PRN Reason: Pain or Fever Stop: 04/18/23 01:58 Albuterol (Albuterol Hfa 8 Gm Inhaler) 2 puffs INH Q6H PRN PRN Reason: shortness of breath or wheezing Stop: 04/18/23 01:58 Apixaban (Apixaban 2.5 Mg Tab) 2.5 mg PO Q12H VANDANA Stop: 04/18/23 08:59 Last Admin: 03/21/23 08:03 Dose: 2.5 mg Aspirin (Aspirin 81 Mg Ectab) 81 mg PO DAILY VANDANA Stop: 04/18/23 08:59 Last Admin: 03/21/23 08:02 Dose: 81 mg Clonazepam (Clonazepam 1 Mg Tab) 1 mg PO BID VANDANA Stop: 04/18/23 08:59 Last Admin: 03/21/23 08:22 Dose: 1 mg Dextrose (Dextrose 50% 50 Ml Syringe) 25 - 50 ml IV UD PRN; Protocol PRN Reason: Hypoglycemia Protocol Stop: 04/18/23 01:58 Finasteride (Finasteride 5 Mg Tab) 5 mg PO HS VANDANA Stop: 04/18/23 20:59 Last Admin: 03/20/23 20:25 Dose: 5 mg Fluticasone/Vilanterol (Fluticasone/Vilanterol 100/25mcg 14 Puffs/Inhaler) 1 puffs INH DAILY VANDANA Stop: 04/18/23 08:59 Last Admin: 03/21/23 08:04 Dose: 1 puffs Gabapentin (Gabapentin 100 Mg Cap) 100 mg PO QAM VANDANA Stop: 04/18/23 08:59 Last Admin: 03/21/23 08:02 Dose: 100 mg Gabapentin (Gabapentin 300 Mg Cap) 300 mg PO HS VANDANA Stop: 04/18/23 20:59 Last Admin: 03/20/23 20:24 Dose: 300 mg Glucagon (Glucagon For Inj 1 Mg Vial) 1 mg SQ UD PRN; Protocol PRN Reason: Hypoglycemia Protocol Stop: 04/18/23 01:58 Glucose (Glucose 10 Tab/Tube) 4 - 8 tab PO UD PRN; Protocol PRN Reason: Hypoglycemia Treatment Stop: 04/18/23 01:58 Glucose (Glucose 40% Gel 15 Gm Tube) 15 - 30 gm PO UD PRN; Protocol PRN Reason: Hypoglycemia Protocol Stop: 04/18/23 01:58 Ampicillin Sodium 2,000 mg/ (Sodium Chloride) 100 mls @ 200 mls/hr IV Q8H VANDANA Stop: 04/02/23 13:59 Insulin Aspart (Insulin Aspart Per Unit Charge) 0 units SC ACHS VANDANA Stop: 04/18/23 07:29 Last Admin: 03/21/23 08:25 Dose: Not Given Insulin Glargine (Lantus Per Unit Charge) 26 units SQ BID VANDANA Stop: 04/18/23 08:59 Last Admin: 03/20/23 08:32 Dose: Not Given Levothyroxine Sodium (Levothyroxine Sodium 88 Mcg Tablet) 88 mcg PO DAILYBB VANDANA Stop: 04/18/23 06:29 Last Admin: 03/21/23 06:15 Dose: 88 mcg Metoprolol Tartrate (Metoprolol Tartrate 25 Mg Tab) 25 mg PO BID VANDANA Stop: 04/18/23 08:59 Last Admin: 03/21/23 08:04 Dose: 25 mg Miscellaneous (Carbohydrates For Hypoglycemia ) 15 - 30 gm PO UD PRN PRN Reason: Hypoglycemia Protocol Stop: 04/18/23 01:58 Last Admin: 03/20/23 07:33 Dose: 15 gm Ondansetron HCl (Ondansetron 4 Mg Od Tab) 4 mg PO Q6H PRN PRN Reason: Nausea Stop: 04/18/23 01:58 Pantoprazole Sodium (Pantoprazole 40 Mg Tab) 40 mg PO BID VANDANA Stop: 04/18/23 08:59 Last Admin: 03/21/23 08:03 Dose: 40 mg Polyethylene Glycol (Polyethylene (Miralax) 17 Gm Pack) 17 gm PO DAILY PRN PRN Reason: Constipation Stop: 04/18/23 01:58 Rosuvastatin Calcium (Rosuvastatin Calcium 20 Mg Tab) 20 mg PO HS VANDANA Stop: 04/18/23 20:59 Last Admin: 03/20/23 20:26 Dose: 20 mg Tamsulosin HCl (Tamsulosin Hcl 0.4 Mg Cap) 0.8 mg PO HS [facility] Stop: 04/18/23 20:59 Last Admin: 03/20/23 20:25 Dose: 0.8 mg Umeclidin[employer] (Umeclidinium [employer] 62.5mcg/Blister 7 Puffs/Inhaler) 1 puffs INH DAILY VANDANA Stop: 04/18/23 08:59 Last Admin: 03/21/23 08:05 Dose: 1 puffs
[2023-03-21] MEDS: ACETAMINOPHEN 325 MG TAB PO PRN ×2 (13:13→20:38)
[2023-03-21] MEDS: AMPICILLIN 2,000 MG in SODIUM CHLOR 0.9% MINI-B 100 ML IV SCH ×2 (14:48→22:07)
--- NOTE | 2023-03-21 17:40 | XCELERA ---
[id number] [id number]
--- NOTE | 2023-03-21 19:33 | Billing Data ---
Date of Service March 21, 2023 Coding Level of Care Code 70312 SUB INP/OBS CARE
[2023-03-21] MEDS: ROSUVASTATIN CALCIUM 20 MG TAB PO SCH (20:41)
[2023-03-21] MEDS: TAMSULOSIN HCL 0.4 MG CAP PO SCH (20:41)
[2023-03-21] MEDS: GABAPENTIN 300 MG CAP PO SCH (20:42)
[2023-03-21] MEDS: FINASTERIDE 5 MG TAB PO SCH (20:42)
[2023-03-22] MEDS: AMPICILLIN 2,000 MG in SODIUM CHLOR 0.9% MINI-B 100 ML IV SCH ×3 (05:44→21:00)
[2023-03-22] MEDS: LEVOTHYROXINE SODIUM 88 MCG TABLET PO SCH (05:44)
--- NOTE | 2023-03-22 07:07 | Hospitalist Progress Note ---
Date of Service March 22, 2023 Assessment & Plan (1) Hypotension: (2) Elevated troponin I level: (3) Recurrent bacteremia: (4) Anxiety: (5) Anemia of chronic disease: (6) Chronic kidney disease, stage 4 (severe): (7) Acute kidney injury superimposed on CKD: (8) Moderate calcific aortic stenosis: (9) Peripheral vascular disease: (10) Lower extremity edema: (11) Benign prostatic hyperplasia with urinary obstruction: (12) COPD (chronic obstructive pulmonary disease): (13) Hypothyroidism: (14) Hypertension: (15) Dyslipidemia: (16) Paroxysmal atrial fibrillation: (17) Vitamin D deficiency: (18) CAD (coronary artery disease): (19) GERD (gastroesophageal reflux disease): (20) CHF (congestive heart failure): (21) Diabetes: Plan 87 yo male with PMHx of CKD Stage 4 (previous admission with [facility] requiring temporary dialysis), DVT, DM2 insulin dependent, HTN, hypothyroidism, afib, CAD, BPH, GERD, recurrent bacteremia, aortic stenosis, anxiety, and CHF who presents with unwitnessed fall with concomitant bowel/bladder incontinence and associated hypotension. 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 - UA negative - WBC 9.66-->10.24 - Blood cx positive for gram positive cocci in chains. - repeat blood culture 03/20 also positive - PCR Enterococcus Faecalis positive (VRE not detected) - ID consulted, appreciate recs: - GLO done today, negative for vegetations - based on this, it is unclear what the source of recurrent infections is. - Recommend repeat blood cultures Q24-48H until cleared - Continue IV ampicillin - Patient likely to need extended course of IV ampicillin following discharge - PT/OT evaluation ordered to determine need for placement - Case management following. #Hypotension (resolved) - Likely from infection - BP 74/44 in ED, improved with IV fluids - Currently hemodynamically stable #JUDI on CKD stage 4 - Cr 1.95-->2.12 - Baseline ~2. Follows with nephro. - Elevation in creatinine likely secondary to dehydration - Trend BMP QAM - Continue to hold home Bumex, given minimal concern for CHF exacerbation #Elevated troponin - Trop 72 on admission, repeat Trop 63 - EKG without ischemic changes, suspect due to demand #Chronic HFpEF #Aortic stenosis #Peripheral edema #CAD/PVD/HLD #Afib -Continue to hold home Bumex -cont. metoprolol; eliquis -cont. statin -cont. ASA, statin #DM2 -Lantus + SSI #Diabetic neuropathy -cont. gabapentin #COPD -cont. home inhalers #Anxiety -cont. clonazepam #BPH -cont. finasteride, tamsulosin DVT ppx: Eliquis FEN/GI: DM2 Admission and Anticipated Discharge Date Admission Date: March 19, 2023 Supervising Physician Co-Signing Physician Notes I personally examined the patient and verified all [place] points of history and exam, discussed case, and agree with decision making with Dr Grissom Feeling okay. No new problems. GLO surprisingly negative. Vitals noted, in general he is awake and alert pleasant no distress. HEENT normocephalic atraumatic mucous membranes moist. Breathing unlabored no accessory muscle use good effort. Skin shows no rashes no pallor or icterus. Neuro without focal deficits. Recurrent Enterococcus bacteremiasurprisingly no vegetation. ?GI source. ?chronic bladder colonization. ?chronic leg wounds (seems less likely given enterococcus). ID input appreciatedcontinue ampicillin for now, awaiting final speciation and follow-up cultures to be clearly negative. Weaknesscontinue to encourage movement and follow on apixaban Subjective 87 yo male with PMHx of CKD Stage 4 (previous admission with [facility] requiring temporary dialysis), DVT, DM2 insulin dependent, HTN, hypothyroidism, afib, CAD, BPH, GERD, recurrent bacteremia, aortic stenosis, anxiety, and CHF who presents with fall. Patient resting comfortably upon evaluation this morning, his was also present in the room. notes that patient was transiently febrile overnight but this appears to have resolved as of this morning. Patient denies fever/chills. Denies CP, SOB, dysuria. Review of Systems Review of Systems: as per HPI Physical Exam Constitutional: WD/WN, vitals as above Respiratory: normal respiratory effort, lungs clear to auscultation Cardiovascular: Rate/Rhythm: regular rate and regular rhythm Heart Sounds: + murmur (systolic ejection murmur ) Extremities: + edema (minimal LE edema bilaterally ) Gastrointestinal (Abdomen): normal bowel sounds, soft, nontender, no hepatosplenomegaly Psychiatric: A+Ox3, euthymic affect Results & Data Results & Data Vital Signs (Past 12 Hours) Vital Signs Temp Pulse Pulse Resp BP BP Pulse Ox 03/22/23 04:10 36.7 C 76 16 156/77 H 96 03/21/23 22:23 110 H 03/21/23 22:07 37 C 95 H 22 190/67 H 95 03/21/23 19:10 36.7 C 68 18 151/55 H 97 O2 Del Method 03/22/23 04:10 Room Air 03/21/23 22:23 03/21/23 22:07 Room Air 03/21/23 19:10 Room Air Laboratory Results Abnormal lab results 03/21/23 03/21/23 03/21/23 Range/Units 12:10 16:21 20:27 RBC (4.70-6.10) M/uL Hgb (14.0-18.0) g/dl Hct (42.0-52.0) % RDW Std Deviation (36.4-46.3) fL RDW Coeff of Adrian (11.5-14.5) % BUN (6-23) mg/dl Creatinine (0.6-1.4) mg/dl Glucose (70-99(Fasting)) mg/dl POC Glucose 124 H 123 H 181 H (70-99) mg/dl Calcium (8.6-10.3) mg/dl 03/22/23 03/22/23 03/22/23 Range/Units 06:47 06:47 07:24 RBC 3.12 L (4.70-6.10) M/uL Hgb 9.3 L (14.0-18.0) g/dl Hct 28.0 L (42.0-52.0) % RDW Std Deviation 48.1 H (36.4-46.3) fL RDW Coeff of Adrian 14.7 H (11.5-14.5) % BUN 30 H (6-23) mg/dl Creatinine 2.12 H (0.6-1.4) mg/dl Glucose 197 H (70-99(Fasting)) mg/dl POC Glucose 203 H (70-99) mg/dl Calcium 8.5 L (8.6-10.3) mg/dl Resident Activity Tracking Resident Involvement: Resident Care Provided Care Provided: Adult Hospital Medicine (12) COPD (chronic obstructive pulmonary disease) COPD type: unspecified COPD Qualified Code(s): J44.9 - Chronic obstructive pulmonary disease, unspecified (13) Hypothyroidism Hypothyroidism type: unspecified Qualified Code(s): E03.9 - Hypothyroidism, unspecified (14) Hypertension Hypertension type: essential hypertension Qualified Code(s): I10 - Essential (primary) hypertension (18) CAD (coronary artery disease) Associated angina: without angina Coronary Disease-Associated Artery/Lesion type: [place] artery [place] vs. transplanted heart: [place] heart Qualified Code(s): I25.10 - Atherosclerotic heart disease of [place] coronary artery without angina pectoris (19) GERD (gastroesophageal reflux disease) Esophagitis presence: esophagitis presence not specified Qualified Code(s): K21.9 - Gastro-esophageal reflux disease without esophagitis (20) CHF (congestive heart failure) Heart failure chronicity: unspecified Heart failure type: unspecified Qualified Code(s): I50.9 - Heart failure, unspecified (21) Diabetes Diabetes mellitus complication status: with hyperglycemia Diabetes mellitus nursing home insulin use: with nursing home use Diabetes mellitus type: type 2 Qualified Code(s): E11.65 - Type 2 diabetes mellitus with hyperglycemia; Z79.4 - residential (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
[2023-03-22 07:36] LABS: Hemoglobin 9.3 g/dl (14.0-18.0); Mean Corpuscular Hemoglobin 29.8 pg (25.0-34.0); Mean Corpuscular Hgb Conc 33.2 g/dL (32.0-36.0); Mean Corpuscular Volume 89.7 fL (80.0-100.0); Mean Platelet Volume 9.6 fL (9.4-12.4); Platelet Count 139 K/uL (130-400); RDW Coefficient of Variation 14.7 % (11.5-14.5); RDW Standard Deviation 48.1 fL (36.4-46.3); Red Blood Count 3.12 M/uL (4.70-6.10); White Blood Count 10.24 K/ul (4.8-10.8)
[2023-03-22] MEDS: INSULIN ASPART PER UNIT CHARGE SC SCH ×4 (08:20→21:02)
[2023-03-22 10:16] LABS: Calcium 8.5 mg/dl (8.6-10.3); Potassium 3.7 mmol/L (3.5-5.1)
[2023-03-22 10:22] LABS: BUN Creatinine Ratio 14.2 (10-20); Creatinine Clr Calc Pharmacy 25.6 ml/min; Est GFR (African American) 31.5 ml/min; Est GFR (Non-African American) 27.2 ml/min
[2023-03-22] MEDS: GABAPENTIN 100 MG CAP PO SCH (12:21)
[2023-03-22] MEDS: clonazePAM 1 MG TAB PO SCH ×2 (12:21→21:00)
[2023-03-22] MEDS: METOPROLOL TARTRATE 25 MG TAB PO SCH ×2 (12:21→21:01)
--- NOTE | 2023-03-22 14:05 | Pre Anesthesia Assessment ---
Date of Service March 22, 2023 Pre Sedation Assessment Vital Signs Temp Pulse Pulse Resp BP BP Pulse Ox 03/22/23 08:00 03/22/23 11:28 36.7 C 77 18 161/67 H 95 03/22/23 08:00 97 H 03/22/23 07:47 36.9 C 83 18 177/70 H 98 03/22/23 04:10 36.7 C 76 16 156/77 H 96 03/21/23 22:23 110 H 03/21/23 22:07 37 C 95 H 22 190/67 H 95 03/21/23 19:10 36.7 C 68 18 151/55 H 97 03/21/23 15:30 37.0 C 65 17 137/47 L 94 03/21/23 17:23 65 O2 Del Method 03/22/23 08:00 Room Air 03/22/23 11:28 Room Air 03/22/23 08:00 03/22/23 07:47 Room Air 03/22/23 04:10 Room Air 03/21/23 22:23 03/21/23 22:07 Room Air 03/21/23 19:10 Room Air 03/21/23 15:30 Room Air 03/21/23 17:23 Cardiovascular + regular rate + murmur Respiratory normal respiratory effort, lungs clear to auscultation Pre-Sedation Airway Assessment Smoking Status: Never smoker Hx Sleep Apnea: No Hx Difficult Intubation: No Mallampati Class: III ASA: ASA3 NPO Status Date of Last Intake of Fluids: 03/22/23 Time of Last Intake of Fluids: 09:00 Last Oral Intake of Fluids Comment: sips with meds Date of Last Intake of Solid Food: 03/21/23 Time of Last Intake of Solid Foods: 18:00 Procedure Planning Contraindications for Sedation: none Current Medications Reviewed: Yes Notes The planned sedation has been discussed with the patient. Informed Consent was obtained. I have identified the patient, determined the appropriateness of sedation and have assessed the patient immediately prior to the procedure. All medicine(s) and interventions are by my order.
[2023-03-22] MEDS ORDERED: MIDAZOLAM HCL 1 MG/ML 2ML VIAL ONE (15:02)
--- NOTE | 2023-03-22 16:13 | Post Anesthesia Assessment ---
Date of Service March 22, 2023 Post Sedation Assessment Vital Signs Temp Pulse Pulse Pulse Resp BP BP 03/22/23 16:07 68 20 109/44 L 03/22/23 15:00 66 03/22/23 15:50 69 20 109/50 L 03/22/23 15:45 64 20 106/51 L 03/22/23 15:40 67 20 116/48 L 03/22/23 15:35 66 20 120/56 L 03/22/23 15:30 68 20 121/66 03/22/23 15:52 70 20 110/47 L 03/22/23 15:27 66 20 136/62 03/22/23 08:00 03/22/23 11:28 36.7 C 77 18 161/67 H 03/22/23 08:00 97 H 03/22/23 07:47 36.9 C 83 18 177/70 H 03/22/23 04:10 36.7 C 76 16 156/77 H 03/21/23 22:23 110 H 03/21/23 22:07 37 C 95 H 22 190/67 H 03/21/23 19:10 36.7 C 68 18 151/55 H 03/21/23 17:23 65 Pulse Ox O2 Del Method O2 Flow Rate 03/22/23 16:07 92 Room Air 03/22/23 15:00 03/22/23 15:50 99 Oxymask 6 03/22/23 15:45 99 Oxymask 6 03/22/23 15:40 100 Oxymask 6 03/22/23 15:35 100 Oxymask 6 03/22/23 15:30 100 Oxymask 6 03/22/23 15:52 94 Room Air 03/22/23 15:27 100 Oxymask 6 03/22/23 08:00 Room Air 03/22/23 11:28 95 Room Air 03/22/23 08:00 03/22/23 07:47 98 Room Air 03/22/23 04:10 96 Room Air 03/21/23 22:23 03/21/23 22:07 95 Room Air 03/21/23 19:10 97 Room Air 03/21/23 17:23 Recovery Score Activity: Moves 4 extremities Respiration: Deep Breath/Cough Circulation: +/-20% PreAnes Value Consciousness: Fully Awake Oxygen Saturation: > 92% On Room Air Post Anesthesia Score: 10 Discharge Sedation Level of Care: Fast Track Phase II Post Sedation Plan On clinical assessment, the patient appears to have tolerated the sedation without complications. Patient is recovering as anticipated. Patient will continue to be monitored by nursing and may be discharged when sedation discharge criteria are met per below protocol. Upon Completions of procedure up to 15 minutes continue every 5 minute vital signs and the P.A.R. score; then discharge to a Phase I or Fast Track to Phase II per the following guidelines: * Discharge Patient to appropriate Phase II area if PAR is 8 or greater or return to pre- procedure baseline. The post - procedure orders will be as directed. * If PAR score is less than 8 or not return to pre-procedure baseline then patient will follow Phase I monitoring till PAR is reached for Phase II. The Phase I may be done in procedure room or may call to secure a Phase I area. * If naloxone or flumazenil are used for reversal, hold in Phase I for continued monitoring from when last reversal dose was given for a minimum of 60 minutes or longer pending the nurse and/or physician discretion of patient condition before discharge to Phase II. Please call the Sedation Physician to re-evaluate and complete post-note for discharge to Phase II area. Do NOT discharge from procedure sedation or Phase 1 until post- sedation evaluation note is complete by procedure /sedation MD Sedation Discharge Instructions to be given to the patient at discharge to home.
--- NOTE | 2023-03-22 16:14 | Post Operative Brief Note ---
Cardiology Brief Post Op Date of Surgery March 22, 2023 Pre & Post Diagnosis Operation Date: 03/22/23 15:15 <No data on this case meets the specified criteria> Procedure GLO Company Manager Davis Dillard MD Glass Silverer manuel Estimated Blood Loss 0 Findings See Below Prelim: No vegetation Complications none
[2023-03-22] MEDS: FLUTICASONE/VILANTEROL 100/25MCG 14 PUFFS/INHALER INH SCH (16:40)
[2023-03-22] MEDS: UMECLIDINIUM BROMIDE 62.5MCG/BLISTER 7 PUFFS/INHALER INH SCH (16:40)
[2023-03-22] MEDS: BENZOCAINE/TETRACAIN/BUTAM 50 APPLN/5 GM CAN EXT ONE ×2 (16:42→16:47)
[2023-03-22] MEDS: fentaNYL citrate PF 100 MCG/2 ML VIAL ONE ×2 (16:43→16:47)
[2023-03-22] MEDS: MIDAZOLAM HCL 5 MG/ML 1 ML VIAL ONE ×2 (16:43→16:48)
[2023-03-22] MEDS: PANTOprazole 40 MG TAB PO SCH ×2 (17:20→21:01)
--- NOTE | 2023-03-22 18:08 | XCELERA ---
[id number]
--- NOTE | 2023-03-22 19:01 | Billing Data ---
Date of Service March 22, 2023 Coding Level of Care Code 56615 SUB INP/OBS CARE MIN
[2023-03-22] MEDS: TAMSULOSIN HCL 0.4 MG CAP PO SCH (21:00)
[2023-03-22] MEDS: ACETAMINOPHEN 325 MG TAB PO PRN (21:00)
[2023-03-22] MEDS: FINASTERIDE 5 MG TAB PO SCH (21:01)
[2023-03-22] MEDS: ROSUVASTATIN CALCIUM 20 MG TAB PO SCH (21:01)
[2023-03-22] MEDS: APIXABAN 2.5 MG TAB PO SCH (21:01)
[2023-03-22] MEDS: GABAPENTIN 300 MG CAP PO SCH (21:01)
[2023-03-23] MEDS: LEVOTHYROXINE SODIUM 88 MCG TABLET PO SCH (05:52)
[2023-03-23] MEDS: AMPICILLIN 2,000 MG in SODIUM CHLOR 0.9% MINI-B 100 ML IV SCH ×3 (05:52→21:05)
[2023-03-23 07:25] LABS: Hematocrit (blood only) 25.9 % (42.0-52.0); Hemoglobin 8.8 g/dl (14.0-18.0); Mean Corpuscular Volume 88.4 fL (80.0-100.0); Mean Platelet Volume 9.6 fL (9.4-12.4); Platelet Count 135 K/uL (130-400); RDW Coefficient of Variation 14.6 % (11.5-14.5); RDW Standard Deviation 47.4 fL (36.4-46.3); Red Blood Count 2.93 M/uL (4.70-6.10)
--- NOTE | 2023-03-23 07:45 | Hospitalist Progress Note ---
Date of Service March 23, 2023 Assessment & Plan (1) Hypotension: (2) Elevated troponin I level: (3) Recurrent bacteremia: (4) Anxiety: (5) Anemia of chronic disease: (6) Chronic kidney disease, stage 4 (severe): (7) Acute kidney injury superimposed on CKD: (8) Moderate calcific aortic stenosis: (9) Peripheral vascular disease: (10) Lower extremity edema: (11) Benign prostatic hyperplasia with urinary obstruction: (12) COPD (chronic obstructive pulmonary disease): (13) Hypothyroidism: (14) Hypertension: (15) Dyslipidemia: (16) Paroxysmal atrial fibrillation: (17) Vitamin D deficiency: (18) CAD (coronary artery disease): (19) GERD (gastroesophageal reflux disease): (20) CHF (congestive heart failure): (21) Diabetes: Plan 87 yo male with PMHx of CKD Stage 4 (previous admission with [facility] requiring temporary dialysis), DVT, DM2 insulin dependent, HTN, hypothyroidism, afib, CAD, BPH, GERD, recurrent bacteremia, aortic stenosis, anxiety, and CHF who presents with unwitnessed fall with concomitant bowel/bladder incontinence and associated hypotension. 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 - UA negative - WBC 9.66-->10.24-->10.1 - Blood cx positive for gram positive cocci in chains. - repeat blood culture 03/20 also positive - repeat blood culture 03/22 negative at 24H - PCR Enterococcus Faecalis positive (VRE not detected) - ID consulted, appreciate recs: - GLO negative for vegetations - unclear source of recurrent E. Faecalis bacteremia - right ankle and left knee XR negative for acute process - Recommend repeat blood cultures Q24-48H until cleared - Continue IV ampicillin - Patient likely to need extended course of IV ampicillin following discharge - OT recommending SNF placement - PT recommending SNF placement - Case management following, placement pending #Hypotension (resolved) - Likely from infection - BP 74/44 in ED, improved with IV fluids - Currently hemodynamically stable #JUDI on CKD stage 4 - Cr 1.95-->2.12->2.22 - Baseline ~2. Follows with nephro. - Elevation in creatinine likely secondary to dehydration - Trend BMP QAM - Continue to hold home Bumex, given minimal concern for CHF exacerbation #Elevated troponin - Trop 72 on admission, repeat Trop 63 - EKG without ischemic changes, suspect due to demand #Chronic HFpEF #Aortic stenosis #Peripheral edema #CAD/PVD/HLD #Afib -Continue to hold home Bumex -cont. metoprolol; eliquis -cont. statin -cont. ASA, statin #DM2 -Lantus + SSI #Diabetic neuropathy -cont. gabapentin #COPD -cont. home inhalers #Anxiety -cont. clonazepam #BPH -cont. finasteride, tamsulosin DVT ppx: Eliquis FEN/GI: DM2 Admission and Anticipated Discharge Date Admission Date: March 19, 2023 Supervising Physician Co-Signing Physician Notes I personally examined the patient and verified all [place] points of history and exam, discussed case, and agree with decision making with Dr Grissom discussed with infectious diseaseconcerned about right ankle and left knee. Patient notes his ankle hurts some. Vitals noted, in general he is awake and alert pleasant no distress. HEENT normocephalic atraumatic mucous membranes moist. Breathing unlabored no accessory muscle use good effort. Skin shows no rashes no pallor or icterus. Neuro without focal deficits. Right ankle mildly edematous but feels more superficial/third spaced edema than a joint effusion, mild to moderately tender (infectious disease notes when they tried to examine he would not even let them touch it so it sounds like it is less tender now), left knee not really tender and no significant effusion. Recurrent Enterococcus bacteremiasurprisingly no vegetation. ?GI source. ?chronic bladder colonization. ?chronic leg wounds (seems less likely given enterococcus). ID input appreciatedcontinue ampicillin for now, awaiting final speciation and follow-up cultures to be clearly negative. Orthopedic evaluation given infectious disease concern on septic joints. Weaknesscontinue to encourage movement and follow on apixaban Subjective 87 yo male with PMHx of CKD Stage 4 (previous admission with [facility] requiring temporary dialysis), DVT, DM2 insulin dependent, HTN, hypothyroidism, afib, CAD, BPH, GERD, recurrent bacteremia, aortic stenosis, anxiety, and CHF who presents with fall. Patient resting comfortably upon evaluation this morning. Continues to express that he is losing patience and does not want to be in the hospital. Equivocal about goals of care. Patient denies fever/chills. Denies CP, SOB, dysuria. Review of Systems Review of Systems: as per HPI Physical Exam Constitutional: WD/WN, vitals as above Respiratory: normal respiratory effort, lungs clear to auscultation Cardiovascular: Rate/Rhythm: regular rate and regular rhythm Heart Sounds: + murmur (systolic ejection murmur ) Extremities: + edema (minimal LE edema bilaterally ) Gastrointestinal (Abdomen): normal bowel sounds, soft, nontender, no hepatosplenomegaly Psychiatric: A+Ox3, euthymic affect Results & Data Results & Data Vital Signs (Past 12 Hours) Vital Signs Temp Pulse Pulse Resp BP Pulse Ox O2 Del Method 03/23/23 03:51 36.3 C L 69 20 164/71 H 96 Room Air 03/22/23 23:58 67 141/55 H 03/22/23 23:04 36.8 C 69 20 186/75 H 93 Room Air Resident Activity Tracking Resident Involvement: Resident Care Provided Care Provided: Adult Hospital Medicine (12) COPD (chronic obstructive pulmonary disease) COPD type: unspecified COPD Qualified Code(s): J44.9 - Chronic obstructive pulmonary disease, unspecified (13) Hypothyroidism Hypothyroidism type: unspecified Qualified Code(s): E03.9 - Hypothyroidism, unspecified (14) Hypertension Hypertension type: essential hypertension Qualified Code(s): I10 - Essential (primary) hypertension (18) CAD (coronary artery disease) Associated angina: without angina Coronary Disease-Associated Artery/Lesion type: [place] artery [place] vs. transplanted heart: [place] heart Qualified Code(s): I25.10 - Atherosclerotic heart disease of [place] coronary artery without angina pectoris (19) GERD (gastroesophageal reflux disease) Esophagitis presence: esophagitis presence not specified Qualified Code(s): K21.9 - Gastro-esophageal reflux disease without esophagitis (20) CHF (congestive heart failure) Heart failure chronicity: unspecified Heart failure type: unspecified Qualified Code(s): I50.9 - Heart failure, unspecified (21) Diabetes Diabetes mellitus complication status: with hyperglycemia Diabetes mellitus [facility] insulin use: with terminal manager use Diabetes mellitus type: type 2 Qualified Code(s): E11.65 - Type 2 diabetes mellitus with hyperglycemia; Z79.4 - intermediate frame tender (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
[2023-03-23 07:55] LABS: BUN Creatinine Ratio 15.3 (10-20); Est GFR (African American) 29.8 ml/min; Est GFR (Non-African American) 25.7 ml/min; Potassium 3.7 mmol/L (3.5-5.1)
[2023-03-23] MEDS: PANTOprazole 40 MG TAB PO SCH ×2 (08:35→20:38)
[2023-03-23] MEDS: GABAPENTIN 100 MG CAP PO SCH (08:35)
[2023-03-23] MEDS: METOPROLOL TARTRATE 25 MG TAB PO SCH ×2 (08:35→20:39)
[2023-03-23] MEDS: UMECLIDINIUM BROMIDE 62.5MCG/BLISTER 7 PUFFS/INHALER INH SCH (08:35)
[2023-03-23] MEDS: APIXABAN 2.5 MG TAB PO SCH ×2 (08:35→20:36)
[2023-03-23] MEDS: FLUTICASONE/VILANTEROL 100/25MCG 14 PUFFS/INHALER INH SCH (08:36)
[2023-03-23] MEDS: INSULIN ASPART PER UNIT CHARGE SC SCH ×4 (08:39→20:39)
[2023-03-23] MEDS: clonazePAM 1 MG TAB PO SCH ×2 (08:43→20:37)
[2023-03-23] MEDS: LANTUS PER UNIT CHARGE SQ SCH (08:43)
--- NOTE | 2023-03-23 10:40 | Infectious Disease Progress Nt ---
Date of Service March 23, 2023 GLO negative Blood cultures Assessment & Plan (1) Recurrent bacteremia: Plan #Efaecalis bacteremia, recurrent #CKD MICRO 01/20 Blood cultures E. faecalis, Amp sensitive 01/20 Ucx three types of organism all high counts probable skin gilma 01/22 blood culture E. faecalis Amp sensitive 01/24 Bcx no growth to date 03/18 Bcx E. faecalis 03/20 Bcx E. faecalis 03/22 bcx in lab 87 yo male with a past medical history of CKD, DVT, DM, HTN, pAfib on eliquis, CAD, BPH, GERD, CHF who presents to the hospital on 01/20/2023 for hypoglycemia, weakness and worsened AMS, recently admitted with E. faecalis bacteremia treated and readmitted on 03/18 after a fall. Patient is now bacteremia with E. faecalis, ID consulted. During his last admission, patient very weak and fell. The following day he c/o chest pain but did not want her to take him to the hospital or call EMS. He had episodes of confusion and disorientation before. On day of admit, he was found to be hypoglycemic. Notably large blisters on his legs since getting home from the hospital. She states one of the blisters got very large and popped and states that it drained pus. Recently discharged from hospital on 01/16, admitted with JUDI, dx with acute interstitial nephritis. On admission on 01/20, WBC normal, but patient found to be altered and concern for UTI. WBC normal, Cr 2.08 He was given Vancomycin and ceftriaxone. 01/20 Blood cultures E. faecalis, Amp sensitive 01/20 Ucx three types of organism all high counts probable skin gilma 2DE negative then. He was treated 2 weeks of ampicillin from first negative culture through 02/07/23. Patient was treated but had sudden fall and readmitted on 03/18. 03/18 GPC, Rapidly ID E. faecalis (no resistance). ID now consulted. GLO negative RECOMMEND: -R foot swollen, unclear if septic arthritis? Check Ankle Xray -L knee TKA slightly swollen would also imagin -Blood cultuers q24-48 hours until clearance, will order set today as 03/20 pending -Anticipate prolonged therapy, nonetheless Spoke with Primary team - Sanam Manzano MD Infectious Diseases Admission and Anticipated Discharge Date Admission Date: March 19, 2023 Subjective Subsequent visit was provided via telemedicine using two-way real-time interactive telecommunication between the patient and the telemedicine provider. For the duration of the visit, the provider was performing the assessment from a different facility than the patient. This includesuse of bluetooth stethoscope forauscultationperformed by the telepresenter that the telemedicine provider can hear if described in the physical exam. Solvent Recoverer contact information: Please call [facility] . (Phone Number For Physician Use Only) After establishing a telemedicine visit, patient was: Patient was verified with two unique identifiers, Patient/authorized rep acknowledged consent and understanding and Gave permission to continue telehealth session Time Spent with Patient: Subsequent => 35 min Reviewed Hardware B/L TKAs Spinal lumbar hardware CABG Physical Exam Physical Exam: R medial ankle swollen tender to pain L knee swollen b/l TKAs No rash No spinal ttp Results & Data Vital Signs (Past 12 Hours) Vital Signs Temp Pulse Pulse Resp BP Pulse Ox O2 Del Method 03/23/23 07:57 37.0 C 77 70 21 158/79 H 97 Room Air 03/23/23 03:51 36.3 C L 69 20 164/71 H 96 Room Air 03/22/23 23:58 67 141/55 H 03/22/23 23:04 36.8 C 69 20 186/75 H 93 Room Air Laboratory Results Laboratory Results - last 48 hr 03/21/23 03/21/23 03/21/23 12:10 16:21 20:27 WBC RBC Hgb Hct MCV MCH MCHC RDW Std Deviation RDW Coeff of Adrian Plt Count MPV Sodium Potassium Chloride Carbon Dioxide Anion Gap BUN Creatinine Est Cr Clr Drug Dosing Est GFR ( Amer) Est GFR (Non-Af Amer) BUN/Creatinine Ratio Glucose POC Glucose 124 H 123 H 181 H Calcium 03/22/23 03/22/23 03/22/23 06:47 06:47 07:24 WBC 10.24 RBC 3.12 L Hgb 9.3 L Hct 28.0 L MCV 89.7 MCH 29.8 MCHC 33.2 RDW Std Deviation 48.1 H RDW Coeff of Adrian 14.7 H Plt Count 139 MPV 9.6 Sodium 137 Potassium 3.7 Chloride 105 Carbon Dioxide 22 Anion Gap 10 BUN 30 H Creatinine 2.12 H Est Cr Clr Drug Dosing 25.6 Est GFR ( Amer) 31.5 Est GFR (Non-Af Amer) 27.2 BUN/Creatinine Ratio 14.2 Glucose 197 H POC Glucose 203 H Calcium 8.5 L 03/22/23 03/22/23 03/22/23 11:24 16:29 19:59 WBC RBC Hgb Hct MCV MCH MCHC RDW Std Deviation RDW Coeff of Adrian Plt Count MPV Sodium Potassium Chloride Carbon Dioxide Anion Gap BUN Creatinine Est Cr Clr Drug Dosing Est GFR ( Amer) Est GFR (Non-Af Amer) BUN/Creatinine Ratio Glucose POC Glucose 161 H 139 H 200 H Calcium 03/23/23 03/23/23 03/23/23 06:59 06:59 07:30 WBC 10.10 RBC 2.93 L Hgb 8.8 L Hct 25.9 L MCV 88.4 MCH 30.0 MCHC 34.0 RDW Std Deviation 47.4 H RDW Coeff of Adrian 14.6 H Plt Count 135 MPV 9.6 Sodium 137 Potassium 3.7 Chloride 105 Carbon Dioxide 22 Anion Gap 10 BUN 34 H Creatinine 2.22 H Est Cr Clr Drug Dosing 25.0 Est GFR ( Amer) 29.8 Est GFR (Non-Af Amer) 25.7 BUN/Creatinine Ratio 15.3 Glucose 148 H POC Glucose 163 H Calcium 8.0 L Diagnostic Findings Microbiology 03/22/23 09:31 Blood Aerobic Blood Culture - Preliminary No growth in Aerobic bottle after 24 hours. 03/22/23 09:31 Blood Anaerobic Blood Culture - Preliminary No growth in Anaerobic bottle after 24 hours. 03/22/23 09:36 Blood Aerobic Blood Culture - Preliminary No growth in Aerobic bottle after 24 hours. 03/22/23 09:36 Blood Anaerobic Blood Culture - Preliminary No growth in Anaerobic bottle after 24 hours. 03/20/23 19:32 Blood Aerobic Blood Culture - Preliminary Enterococcus faecalis 03/20/23 19:32 Blood Anaerobic Blood Culture - Preliminary No growth in Anaerobic bottle after 48 hours. 03/20/23 19:30 Blood Aerobic Blood Culture - Preliminary No growth in Aerobic bottle after 48 hours. 03/20/23 19:30 Blood Anaerobic Blood Culture - Preliminary No growth in Anaerobic bottle after 48 hours. 03/18/23 20:17 Blood Aerobic Blood Culture - Preliminary Gram positive cocci in chains 03/18/23 20:17 Blood Anaerobic Blood Culture - Preliminary Enterococcus faecalis 03/18/23 20:17 Blood Aerobic Blood Culture - Preliminary Gram positive cocci in chains 03/18/23 20:17 Blood Anaerobic Blood Culture - Preliminary Gram positive cocci in chains Medications Administered Current Inpatient Medications Acetaminophen (Acetaminophen 325 Mg Tab) 650 mg PO Q4H PRN PRN Reason: Pain or Fever Stop: 04/18/23 01:58 Last Admin: 03/22/23 21:00 Dose: 650 mg Albuterol (Albuterol Hfa 8 Gm Inhaler) 2 puffs INH Q6H PRN PRN Reason: shortness of breath or wheezing Stop: 04/18/23 01:58 Apixaban (Apixaban 2.5 Mg Tab) 2.5 mg PO BID VANDANA Stop: 04/21/23 20:59 Last Admin: 03/23/23 08:35 Dose: 2.5 mg Aspirin (Aspirin 81 Mg Ectab) 81 mg PO DAILY VANDANA Stop: 04/18/23 08:59 Last Admin: 03/21/23 08:02 Dose: 81 mg Clonazepam (Clonazepam 1 Mg Tab) 1 mg PO BID VANDANA Stop: 04/18/23 08:59 Last Admin: 03/23/23 08:43 Dose: 1 mg Dextrose (Dextrose 50% 50 Ml Syringe) 25 - 50 ml IV UD PRN; Protocol PRN Reason: Hypoglycemia Protocol Stop: 04/18/23 01:58 Finasteride (Finasteride 5 Mg Tab) 5 mg PO HS VANDANA Stop: 04/18/23 20:59 Last Admin: 03/22/23 21:01 Dose: 5 mg Fluticasone/Vilanterol (Fluticasone/Vilanterol 100/25mcg 14 Puffs/Inhaler) 1 puffs INH DAILY VANDANA Stop: 04/18/23 08:59 Last Admin: 03/23/23 08:36 Dose: 1 puffs Gabapentin (Gabapentin 100 Mg Cap) 100 mg PO QAM VANDANA Stop: 04/18/23 08:59 Last Admin: 03/23/23 08:35 Dose: 100 mg Gabapentin (Gabapentin 300 Mg Cap) 300 mg PO HS VANDANA Stop: 04/18/23 20:59 Last Admin: 03/22/23 21:01 Dose: 300 mg Glucagon (Glucagon For Inj 1 Mg Vial) 1 mg SQ UD PRN; Protocol PRN Reason: Hypoglycemia Protocol Stop: 04/18/23 01:58 Glucose (Glucose 10 Tab/Tube) 4 - 8 tab PO UD PRN; Protocol PRN Reason: Hypoglycemia Treatment Stop: 04/18/23 01:58 Glucose (Glucose 40% Gel 15 Gm Tube) 15 - 30 gm PO UD PRN; Protocol PRN Reason: Hypoglycemia Protocol Stop: 04/18/23 01:58 Ampicillin Sodium 2,000 mg/ (Sodium Chloride) 100 mls @ 200 mls/hr IV Q8H VANDANA Stop: 04/02/23 13:59 Last Infusion: 03/23/23 06:22 Dose: Infused Insulin Aspart (Insulin Aspart Per Unit Charge) 0 units SC ACHS VANDANA Stop: 04/18/23 07:29 Last Admin: 03/23/23 08:39 Dose: 2 units Insulin Glargine (Lantus Per Unit Charge) 15 units SQ QAM VANDANA Stop: 04/22/23 08:59 Last Admin: 03/23/23 08:43 Dose: 15 units Levothyroxine Sodium (Levothyroxine Sodium 88 Mcg Tablet) 88 mcg PO DAILYBB VANDANA Stop: 04/18/23 06:29 Last Admin: 03/23/23 05:52 Dose: 88 mcg Metoprolol Tartrate (Metoprolol Tartrate 25 Mg Tab) 25 mg PO BID VANDANA Stop: 04/18/23 08:59 Last Admin: 03/23/23 08:35 Dose: 25 mg Miscellaneous (Carbohydrates For Hypoglycemia ) 15 - 30 gm PO UD PRN PRN Reason: Hypoglycemia Protocol Stop: 04/18/23 01:58 Last Admin: 03/20/23 07:33 Dose: 15 gm Ondansetron HCl (Ondansetron 4 Mg Od Tab) 4 mg PO Q6H PRN PRN Reason: Nausea Stop: 04/18/23 01:58 Pantoprazole Sodium (Pantoprazole 40 Mg Tab) 40 mg PO BID VANDANA Stop: 04/18/23 08:59 Last Admin: 03/23/23 08:35 Dose: 40 mg Polyethylene Glycol (Polyethylene (Miralax) 17 Gm Pack) 17 gm PO DAILY PRN PRN Reason: Constipation Stop: 04/18/23 01:58 Rosuvastatin Calcium (Rosuvastatin Calcium 20 Mg Tab) 20 mg PO HS VANDANA Stop: 04/18/23 20:59 Last Admin: 03/22/23 21:01 Dose: 20 mg Tamsulosin HCl (Tamsulosin Hcl 0.4 Mg Cap) 0.8 mg PO HS [facility] Stop: 04/18/23 20:59 Last Admin: 03/22/23 21:00 Dose: 0.8 mg Umeclidinium Marland (Umeclidinium Marland 62.5mcg/Blister 7 Puffs/Inhaler) 1 puffs INH DAILY VANDANA Stop: 04/18/23 08:59 Last Admin: 03/23/23 08:35 Dose: 1 puffs
--- NOTE | 2023-03-23 11:44 | XRay Report ---
XR knee LT 1 or 2V routine CLINICAL HISTORY: evaluate septic arthritis TECHNIQUE: 2 views of the left knee were obtained. Comparison: None available at the time of this dictation. FINDINGS: There is no evidence of an acute fracture. Patient is status post total knee arthroplasty. No perihar dware lucency or hardware fracture is seen. No joint effusion is seen. Vascular calcifications are no rashard. IMPRESSION: No significant joint effusion is seen. No bony abnormality in this post arthroplasty patient. ACT 112: Negative or not required by law. Electronically signed by: Dano West M.D. 03/23/2023 11:41 AM
--- NOTE | 2023-03-23 11:54 | XRay Report ---
XR ankle RT 2V HISTORY: 87 years-old Male evaluate septic arthritis chronic right ankle pain COMPARISON: Right foot radiograph 12/05/2021 TECHNIQUE: 2 views of the right ankle FINDINGS: Arterial calcifications. Moderate sized plantar calcaneal enthesophyte. Mild to moderate osteoarthrit is of the foot and ankle. No acute fracture, dislocation or osteochondral defect identified. Mild to moderate soft tissue swelling. IMPRESSION: 1. No acute fracture, dislocation or acute osseous erosion. 2. Mild to moderate osteoarthritis. ACT 112: Negative or not required by law. The above report was generated using voice recognition software. It may contain grammatical, syntax o r spelling errors. Electronically signed by: Pj Fernández M.D. 03/23/2023 11:53 AM
[2023-03-23] MEDS: ACETAMINOPHEN 325 MG TAB PO PRN (12:34)
--- NOTE | 2023-03-23 16:31 | Billing Data ---
Date of Service March 23, 2023 Coding Level of Care Code 05064 SUB INP/OBS CARE MIN
[2023-03-23] MEDS: GABAPENTIN 300 MG CAP PO SCH (20:37)
[2023-03-23] MEDS: TAMSULOSIN HCL 0.4 MG CAP PO SCH (20:37)
[2023-03-23] MEDS: ROSUVASTATIN CALCIUM 20 MG TAB PO SCH (20:37)
[2023-03-23] MEDS: FINASTERIDE 5 MG TAB PO SCH (20:38)
[2023-03-24] MEDS: AMPICILLIN 2,000 MG in SODIUM CHLOR 0.9% MINI-B 100 ML IV SCH ×3 (05:05→21:32)
[2023-03-24] MEDS: LEVOTHYROXINE SODIUM 88 MCG TABLET PO SCH (05:33)
--- NOTE | 2023-03-24 07:00 | Hospitalist Progress Note ---
Date of Service March 24, 2023 Assessment & Plan (1) Hypotension: (2) Elevated troponin I level: (3) Recurrent bacteremia: (4) Anxiety: (5) Anemia of chronic disease: (6) Chronic kidney disease, stage 4 (severe): (7) Acute kidney injury superimposed on CKD: (8) Moderate calcific aortic stenosis: (9) Peripheral vascular disease: (10) Lower extremity edema: (11) Benign prostatic hyperplasia with urinary obstruction: (12) COPD (chronic obstructive pulmonary disease): (13) Hypothyroidism: (14) Hypertension: (15) Dyslipidemia: (16) Paroxysmal atrial fibrillation: (17) Vitamin D deficiency: (18) CAD (coronary artery disease): (19) GERD (gastroesophageal reflux disease): (20) CHF (congestive heart failure): (21) Diabetes: Plan 87 yo male with PMHx of CKD Stage 4 (previous admission with JUDI requiring temporary dialysis), DVT, DM2 insulin dependent, HTN, hypothyroidism, afib, CAD, BPH, GERD, recurrent bacteremia, aortic stenosis, anxiety, and CHF who presents with unwitnessed fall with concomitant bowel/bladder incontinence and associated hypotension. 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 - UA negative - WBC 10.1-->9 - Blood cx positive for gram positive cocci in chains. - repeat blood culture 03/20 also positive - repeat blood culture 03/22 negative at 24H - PCR Enterococcus Faecalis positive (VRE not detected) - ID consulted, appreciate recs: - GLO negative for vegetations - unclear source of recurrent E. Faecalis bacteremia - right ankle and left knee XR negative for acute process - Ortho consulted, no concern about septic arthritis and not recommending further work up at this time - Recommend repeat blood cultures Q24-48H until cleared - Continue IV ampicillin, PICC line ordered, to be inserted to facilitate extended antibiotic therapy (2-3 months) - Recommend repeat blood cultures 1 week and 2 weeks following completion of antibiotics, also recommend immediate blood culture if febrile - OT recommending SNF placement - PT recommending SNF placement - Case management following, placement pending #Hypotension (resolved) - Likely from infection - BP 74/44 in ED, improved with IV fluids - Currently hemodynamically stable #JUDI on CKD stage 4 - Cr 2.22-->2.9 - Baseline ~2. Follows with nephro. - Elevation in creatinine likely secondary to dehydration - Trend BMP QAM - Continue to hold home Bumex #Elevated troponin - Trop 72 on admission, repeat Trop 63 - EKG without ischemic changes, suspect due to demand #Chronic HFpEF #Aortic stenosis #Peripheral edema #CAD/PVD/HLD #Afib -Continue to hold home Bumex -cont. metoprolol; eliquis -cont. statin -cont. ASA, statin #DM2 -Lantus + SSI #Diabetic neuropathy -cont. gabapentin #COPD -cont. home inhalers #Anxiety -cont. clonazepam #BPH -cont. finasteride, tamsulosin DVT ppx: Eliquis FEN/GI: DM2 Admission and Anticipated Discharge Date Admission Date: March 19, 2023 Supervising Physician Co-Signing Physician Notes I personally examined the patient and verified all aguayo points of history and exam, discussed case, and agree with decision making with Dr Grissom A little more delirious today, no other new issues. Orthopedic surgery input greatly appreciated. Vitals noted, in general he is awake and alert pleasant no distress. HEENT normocephalic atraumatic mucous membranes moist. Breathing unlabored no accessory muscle use good effort. Skin shows no rashes no pallor or icterus. Neuro without focal deficits. Recurrent Enterococcus bacteremiasurprisingly no vegetation. ?GI source. ?chronic bladder colonization. ?chronic leg wounds (seems less likely given enterococcus). ID input appreciatedcontinue ampicillin for now, awaiting final speciation and follow-up cultures to be clearly negative. Orthopedic evaluation Reassuring. Plan for center care and likely prolonged ampicillin with close follow-up after Weaknesscontinue to encourage movement and follow on apixaban Subjective 87 yo male with PMHx of CKD Stage 4 (previous admission with JUDI requiring temporary dialysis), DVT, DM2 insulin dependent, HTN, hypothyroidism, afib, CAD, BPH, GERD, recurrent bacteremia, aortic stenosis, anxiety, and CHF who presents with fall. Patient resting comfortably upon evaluation this morning. Notes that his legs are feeling weak, is concerned about his ability to walk. Discussed recommendation of placement, to which patient is amenable but would like to discuss with his . Denies CP, SOB, dysuria. Review of Systems Review of Systems: as per HPI Physical Exam Constitutional: WD/WN, vitals as above Respiratory: normal respiratory effort, lungs clear to auscultation Cardiovascular: Rate/Rhythm: regular rate and regular rhythm Heart Sounds: + murmur (systolic ejection murmur ) Extremities: + edema (minimal LE edema bilaterally ) Gastrointestinal (Abdomen): normal bowel sounds, soft, nontender, no hepatosplenomegaly Psychiatric: A+Ox3, euthymic affect Results & Data Results & Data Vital Signs (Past 12 Hours) Vital Signs Temp Pulse Pulse Resp BP BP Pulse Ox 03/24/23 03:18 37 C 83 18 177/70 H 94 03/23/23 23:47 37.2 C 78 16 112/58 L 94 03/23/23 21:54 65 03/23/23 21:50 03/23/23 19:51 37.2 C 65 19 155/74 H 99 O2 Del Method 03/24/23 03:18 Room Air 03/23/23 23:47 Room Air 03/23/23 21:54 03/23/23 21:50 Room Air 03/23/23 19:51 Room Air Laboratory Results Abnormal lab results 03/23/23 03/23/23 03/24/23 Range/Units 16:31 19:52 07:10 RBC 2.96 L (4.70-6.10) M/uL Hgb 8.8 L (14.0-18.0) g/dl Hct 26.6 L (42.0-52.0) % RDW Std Deviation 48.4 H (36.4-46.3) fL RDW Coeff of Adrian 14.6 H (11.5-14.5) % Sodium (136-145) mmol/L BUN (6-23) mg/dl Creatinine (0.6-1.4) mg/dl Glucose (70-99(Fasting)) mg/dl POC Glucose 274 H 243 H (70-99) mg/dl Calcium (8.6-10.3) mg/dl 03/24/23 03/24/23 03/24/23 Range/Units 07:10 07:37 11:06 RBC (4.70-6.10) M/uL Hgb (14.0-18.0) g/dl Hct (42.0-52.0) % RDW Std Deviation (36.4-46.3) fL RDW Coeff of Adrian (11.5-14.5) % Sodium 135 L (136-145) mmol/L BUN 39 H (6-23) mg/dl Creatinine 2.92 H D (0.6-1.4) mg/dl Glucose 221 H (70-99(Fasting)) mg/dl POC Glucose 231 H 309 H* (70-99) mg/dl Calcium 8.2 L (8.6-10.3) mg/dl 03/24/23 Range/Units 11:07 RBC (4.70-6.10) M/uL Hgb (14.0-18.0) g/dl Hct (42.0-52.0) % RDW Std Deviation (36.4-46.3) fL RDW Coeff of Adrian (11.5-14.5) % Sodium (136-145) mmol/L BUN (6-23) mg/dl Creatinine (0.6-1.4) mg/dl Glucose (70-99(Fasting)) mg/dl POC Glucose 299 H (70-99) mg/dl Calcium (8.6-10.3) mg/dl Resident Activity Tracking Resident Involvement: Resident Care Provided Care Provided: Adult Hospital Medicine (12) COPD (chronic obstructive pulmonary disease) COPD type: unspecified COPD Qualified Code(s): J44.9 - Chronic obstructive pulmonary disease, unspecified (13) Hypothyroidism Hypothyroidism type: unspecified Qualified Code(s): E03.9 - Hypothyroidism, unspecified (14) Hypertension Hypertension type: essential hypertension Qualified Code(s): I10 - Essential (primary) hypertension (18) CAD (coronary artery disease) Associated angina: without angina Coronary Disease-Associated Artery/Lesion type: [place] artery [place] vs. transplanted heart: [place] heart Qualified Code(s): I25.10 - Atherosclerotic heart disease of [place] coronary artery without angina pectoris (19) GERD (gastroesophageal reflux disease) Esophagitis presence: esophagitis presence not specified Qualified Code(s): K21.9 - Gastro-esophageal reflux disease without esophagitis (20) CHF (congestive heart failure) Heart failure chronicity: unspecified Heart failure type: unspecified Qualified Code(s): I50.9 - Heart failure, unspecified (21) Diabetes Diabetes mellitus complication status: with hyperglycemia Diabetes mellitus buttermaker helper insulin use: with longterm use Diabetes mellitus type: type 2 Qualified Code(s): E11.65 - Type 2 diabetes mellitus with hyperglycemia; Z79.4 - [facility] (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
--- NOTE | 2023-03-24 07:21 | Orthopedic Consultation ---
Date of Service March 24, 2023 Assessment & Plan (1) Status post bilateral knee replacements: 87-year-old gentleman with history of bilateral knee replacements many years ago admitted with bacteremia and multiple falls over time. He is got multiple medical comorbidities. On exam today he is got diffuse achiness all over but there is no signs of septic arthritis in his knees. He does does not have a knee effusion in either knee. I do not think this requires a further orthopedic work-up unless his knees that show a significant knee effusion. Continue medical management. Any orthopedic questions can be direct me at [phone]. History of Present Illness Reason for Consultation: . Concern for septic arthritis status post knee replacement. Requesting Physician: . Attending Physician: Alexandru Harrell DO . Patient is an 87-year-old gentleman with multiple medical comorbidities who has been admitted status post a fall with underlying recurrent bacteremia. He is well-known to me from previous left knee replacement done 7 years ago and a previous right knee replacement by Dr. Joy prior to that with a revision at 1 point. I have not seen him for about 7 years. He has been readmitted with Enterococcus bacteremia. He reports multiple aches and pains throughout. He is not a very good historian. Allergies Allergy/AdvReac Type Severity Reaction Status Date / Time Cephalosporins Allergy Unknown Verified 03/19/23 00:43 ciprofloxacin [From Cipro] AdvReac Severe Unknown Verified 03/19/23 00:43 semaglutide [From Ozempic] AdvReac Severe NAUSEA/VOMI Verified 03/19/23 00:43 TING/ANOREX IA amlodipine AdvReac Intermediate SWELLING Verified 03/19/23 00:43 OF ANKLES ropinirole AdvReac Intermediate CHANGE IN Verified 03/19/23 00:43 MENTAL STATUS silver [From SilvaSorb] AdvReac (silver Verified 03/19/23 02:04 dressings) redness of skin Home Medications Medication Instructions Recorded Confirmed Type albuterol sulfate 90 mcg/actuation 2 puffs inhalation Q6H PRN 01/10/19 03/19/23 History aerosol inhaler shortness of breath or wheezing levothyroxine 88 mcg tablet 75 mcg PO DAILYBB #90 tabs 01/10/19 03/19/23 History potassium chloride 20 mEq 20 meq PO BID 01/10/19 03/19/23 History tablet,extended release finasteride 5 mg tablet 5 mg PO HS 04/23/19 03/19/23 History gabapentin 100 mg capsule See Rx Instructions .Route .COMPLEX 12/16/20 03/19/23 History aspirin 81 mg tablet,delayed 81 mg PO DAILY 10/11/21 03/19/23 History release pantoprazole 20 mg tablet,delayed 20 mg PO BID 02/07/22 03/19/23 History release acetaminophen 500 mg tablet 1,000 mg PO Q6H PRN PAIN/FEVER 05/28/22 03/19/23 History (Tylenol Extra Strength) clonazepam 1 mg tablet 1 mg PO BID 05/28/22 03/19/23 History fluticasone 500 mcg-salmeterol 50 1 inh inhalation BID 05/28/22 03/19/23 History mcg/dose blistr powdr for inhalation metoprolol tartrate 50 mg tablet 25 mg PO BID 05/28/22 03/19/23 History multivitamin with minerals 1 tab PO DAILY 05/28/22 03/19/23 History rosuvastatin 20 mg tablet 20 mg PO HS 05/28/22 03/19/23 History tiotropium bromide 2.5 2 puff inhalation DAILY 05/28/22 03/19/23 History mcg/actuation mist for inhalation vitamins A,C,A-bmnq-revdyj 2,148 1 tab PO DAILY 05/28/22 03/19/23 History mcg-113 mg-45 mg-17.4 mg tablet (PreserVision AREDS) apixaban 5 mg tablet (Eliquis) 2.5 mg PO Q12H 12/29/22 03/19/23 History calcium citrate 315 mg-vitamin D3 2 tab PO DAILY 12/29/22 03/19/23 History 5 mcg (200 unit) tablet (Calcium Citrate + D) loratadine 10 mg tablet (Claritin) 10 mg PO DAILY PRN Congestion 12/29/22 03/19/23 History tamsulosin 0.4 mg capsule (Flomax) 0.8 mg PO HS 12/29/22 03/19/23 History insulin aspart U-100 100 unit/mL 14 unit subcut TIDWMEAL 03/19/23 03/19/23 History subcutaneous solution (Novolog U-100 Insulin aspart) insulin glargine 100 unit/mL (3 26 unit subcut BID 03/19/23 03/19/23 History mL) subcutaneous pen (Lantus Solostar U-100 Insulin) Past Med/Surg History Medical History Abdominal distension Acidosis Acute hyperkalemia Acute hyponatremia Acute kidney injury Acute pyelonephritis Acute renal failure Acute UTI (urinary tract infection) Acute UTI (urinary tract infection) Fpjvx-gl-[id number] kidney injury JUDI (acute kidney injury) AMS (altered mental status) AMS (altered mental status) Anemia of chronic disease Anemia of chronic disease Anxiety Aortic stenosis Mild per 03/06/19 stress ECHO Asthma Uses rescue inhaler a couple times per week Atrial fibrillation Follows with Dr. Gr Bacteremia Blindness of left eye Bradycardia CAD (coronary artery disease) Angioplasty ~1993, CABG x 3 2013 (GALINDO to LAD, SVG to PDA, SVG to OM) Cellulitis CHF (congestive heart failure) Chronic kidney disease Follows with Dr. Dixon Chronic obstructive pulmonary disease Diabetes Type 2 IDDM Diabetic infection of right foot DVT (deep venous thrombosis) Fluid overload Foot ulcer GERD (gastroesophageal reflux disease) Headache Herpes zoster Hiatal hernia History of deep venous thrombosis (DVT) of distal vein of left lower extremity Hyperkalemia Hyperlipidemia Hyperosmolar hyperglycemic state (HHS) Hypertension Hypoglycemia Hypoglycemia due to insulin Hypothyroidism Leg wound, left Leukocytosis Macular degeneration Mild aortic stenosis Moderate aortic stenosis Myocardial infarct ~1993 Non-ST elevation MN (NSTEMI) Peripheral neuropathy Peripheral vascular disease Pneumonia Respiratory failure Rupture of left distal biceps tendon hx - no surgery Secondary hyperparathyroidism (of renal origin) Sepsis Sepsis Thrombocytopenia UTI (urinary tract infection) UTI (urinary tract infection) Wound of lower extremity Surgical History (Updated 03/24/23 @ 07:19 by Jese Gaitan MD) Fusion of spine lumbar History of appendectomy History of cardiac cath with angioplasty ~1993 ([facility]) & 2013 ([facility]) History of cataract surgery bilateral History of coronary artery bypass graft x3 vessels ([facility] 2013) with epicardial RFA of pulmonary veins and left atrial appendage ligation History of revision of total replacement of right knee joint History of tonsillectomy History of tooth extraction History of total left knee replacement History of total right knee replacement Hx of colonoscopy Previous back surgery (08/26/12) S/P cholecystectomy Status post bilateral knee replacements Family History Brother Heart disease Diabetes Sister Cancer Mother Diabetes Father Diabetes Other Hypertension Kidney disease Social History Smoking Status: Never smoker Tobacco Type: Cigarettes Second Hand Exposure: No; Do You Dip or Chew Tobacco: No; Hx Alcohol Use: No Hx Substance Use: No Preferred Language: Khmer Communication Ability: Effective Visual Impairment: Partially Limited Nuclear Weapons Mechanical Specialist Required: No Beliefs That Will Affect Care: None marital status: Current Living Situation: Spouse Current Living Situation Comment: lives at home with current occupational status: retired Feels Safe at Home: Yes Assistive Devices: Bedside Commode, Scooter/Electric Scooter, Walker and Wheelchair Review of Systems All systems reviewed & are unremarkable except as noted in HPI & below. Physical Exam . Physical examination reveals a elderly male. I had to wake him this morning. Not a very good historian. He complains of multiple aches and pains. Examination of the left knee reveals a well-healed incision. He is got some mild diffuse edema in the left lower extremity. I will detect any significant knee effusion. There is no redness to his knee. He is diffusely tender to palpation. Is got range of motion 0 to 90 degrees without too much difficulty. He can do a straight leg raise. Once again no knee effusion. Examination of the right knee reveals incision in the front of his knee. Is got no knee effusion. He can do a straight leg raise. There is no palpable defects. And he does have diffuse tenderness palpation anywhere. Results & Data Results & Data Laboratory Results . Diagnostic Findings . PG Care Time/CCT Total # of Minutes Spent Total Time Spent with Patient: Total time spent is greater than 50% in coordination of care (as documented) at patient's floor/unit and/or counseling patient: Coding Level of Care Code 49894 IN/OBS CONSULT LVL 3,45M Diagnoses Status post bilateral knee replacements Z96.653
[2023-03-24 07:36] LABS: Hematocrit (blood only) 26.6 % (42.0-52.0); Hemoglobin 8.8 g/dl (14.0-18.0); Mean Corpuscular Hemoglobin 29.7 pg (25.0-34.0); Mean Corpuscular Hgb Conc 33.1 g/dL (32.0-36.0); Mean Corpuscular Volume 89.9 fL (80.0-100.0); Mean Platelet Volume 9.7 fL (9.4-12.4); Platelet Count 174 K/uL (130-400); RDW Coefficient of Variation 14.6 % (11.5-14.5); RDW Standard Deviation 48.4 fL (36.4-46.3); Red Blood Count 2.96 M/uL (4.70-6.10); White Blood Count 8.97 K/ul (4.8-10.8)
[2023-03-24 07:43] LABS: BUN Creatinine Ratio 13.4 (10-20); Calcium 8.2 mg/dl (8.6-10.3); Est GFR (African American) 21.4 ml/min; Est GFR (Non-African American) 18.4 ml/min; Potassium 3.9 mmol/L (3.5-5.1)
[2023-03-24] MEDS: UMECLIDINIUM BROMIDE 62.5MCG/BLISTER 7 PUFFS/INHALER INH SCH (08:14)
[2023-03-24] MEDS: METOPROLOL TARTRATE 25 MG TAB PO SCH ×2 (08:15→20:07)
[2023-03-24] MEDS: FLUTICASONE/VILANTEROL 100/25MCG 14 PUFFS/INHALER INH SCH (08:15)
[2023-03-24] MEDS: APIXABAN 2.5 MG TAB PO SCH ×2 (08:15→20:07)
[2023-03-24] MEDS: GABAPENTIN 100 MG CAP PO SCH (08:15)
[2023-03-24] MEDS: PANTOprazole 40 MG TAB PO SCH ×2 (08:15→20:06)
[2023-03-24] MEDS: INSULIN ASPART PER UNIT CHARGE SC SCH ×4 (08:17→20:49)
[2023-03-24] MEDS: LANTUS PER UNIT CHARGE SQ SCH (08:18)
[2023-03-24] MEDS: clonazePAM 1 MG TAB PO SCH ×2 (08:25→20:06)
[2023-03-24] MEDS ORDERED: LANTUS PER UNIT CHARGE SQ STA (08:47)
[2023-03-24] MEDS: ASPIRIN 81 MG ECTAB PO SCH (09:30)
--- NOTE | 2023-03-24 18:00 | Billing Data ---
Date of Service March 24, 2023 Coding Level of Care Code 64162 SUB INP/OBS CARE
--- NOTE | 2023-03-24 18:32 | Infectious Disease Progress Nt ---
Date of Service March 24, 2023 Assessment & Plan (1) Recurrent bacteremia: Plan #Efaecalis bacteremia, recurrent #CKD #b/l TKAs #lumbar hardware MICRO 01/20 Blood cultures E. faecalis, Amp sensitive 01/20 Ucx three types of organism all high counts probable skin gilma 01/22 blood culture E. faecalis Amp sensitive 01/24 Bcx no growth to date 03/18 Bcx E. faecalis, ampS 03/20 Bcx E. faecalis, ampS 03/22 bcx in lab 87 yo male with a past medical history of CKD, DVT, DM, HTN, pAfib on eliquis, CAD, BPH, GERD, CHF who presents to the hospital on 01/20/2023 for hypoglycemia, weakness and worsened AMS, recently admitted with E. faecalis bacteremia treated and readmitted on 03/18 after a fall. Patient is now bacteremia with E. faecalis, ID consulted. During his last admission, patient very weak and fell. The following day he c/o chest pain but did not want her to take him to the hospital or call EMS. He had episodes of confusion and disorientation before. On day of admit, he was found to be hypoglycemic. Notably large blisters on his legs since getting home from the hospital. She states one of the blisters got very large and popped and states that it drained pus. Recently discharged from hospital on 01/16, admitted with JUDI, dx with acute interstitial nephritis. On admission on 01/20, WBC normal, but patient found to be altered and concern for UTI. WBC normal, Cr 2.08 He was given Vancomycin and ceftriaxone. 01/20 Blood cultures E. faecalis, Amp sensitive 01/20 Ucx three types of organism all high counts probable skin gilma 2DE negative then. He was treated 2 weeks of ampicillin from first negative culture through 02/07/23. Patient was treated but had sudden fall and readmitted on 03/18. 03/18 GPC, Rapidly ID E. faecalis (no resistance). ID now consulted. Imaging: CT A/P wo contrast: Wall thickening of the urinary bladder measuring up to 7 mm, Multilevel posterior lumbar fusion and laminectomies, diverticulosis 03/22 GLO negative Left knee xray no effusion R ankle xray no effusion 03/24 evaluated by ortho and no concern for septic arthritis in knees or ankle Discussion Patient with recurrent E. faecalis bacteremia. Initially presented previously with UTI at prior hospitalization now a/w +cx 03/18 and 03/20. Hardware in spine, b/l TKAs. Imaging is limited b/c of CKD. However GLO is negative, Xray of knee. Exam shows R foot swollen and tender to touch, suggesting possible source or seeding. I anticipate he will need extended treatment given recurrence w/o sig source. RECOMMEND -C/W Ampicillin, monitor CrCl closely if continues to worsen will decrease dose, please confer with pharm OTW if Cr worsens -Repeat blood cultures on 03/25, follow 03/22 cultures -Monitor RLE swelling, consider dopplers of LE to ensure no thrombus -If cont to be bacteremic will need evaluation of spinal hardware (at this time he has no back pain or tenderness) Please hold on any central lines until we have clearance. Page OTW with questions to [facility]. Dr. Hanson to start service on Monday. Sanam Manzano MD Infectious Diseases Admission and Anticipated Discharge Date Admission Date: March 19, 2023 Subjective This patient recommendation is based on a telemedicine consult request which was completed asynchronously through chart review and information provided by the primary physician. The patient was not seen or examined today. The evaluation is consultative in nature and all patient care and treatment decisions can either be accepted or rejected by the patient's primary hospital-based treating physician using their own independent medical judgment for their patient. Time Spent Reviewing Chart: 31+ minutes Results & Data Vital Signs (Past 12 Hours) Vital Signs Temp Pulse Pulse Resp BP Pulse Ox O2 Del Method 03/24/23 14:18 65 03/24/23 16:30 36.9 C 75 20 144/64 H 95 Room Air 03/24/23 11:17 Room Air 03/24/23 11:00 36.7 C 80 18 157/59 H 96 Room Air 03/24/23 07:30 36.8 C 79 16 151/73 H 98 Room Air Laboratory Results Laboratory Results - last 48 hr 03/22/23 03/23/23 03/23/23 19:59 06:59 06:59 WBC 10.10 RBC 2.93 L Hgb 8.8 L Hct 25.9 L MCV 88.4 MCH 30.0 MCHC 34.0 RDW Std Deviation 47.4 H RDW Coeff of Adrian 14.6 H Plt Count 135 MPV 9.6 Sodium 137 Potassium 3.7 Chloride 105 Carbon Dioxide 22 Anion Gap 10 BUN 34 H Creatinine 2.22 H Est Cr Clr Drug Dosing 25.0 Est GFR ( Amer) 29.8 Est GFR (Non-Af Amer) 25.7 BUN/Creatinine Ratio 15.3 Glucose 148 H POC Glucose 200 H Calcium 8.0 L 03/23/23 03/23/23 03/23/23 07:30 11:34 16:31 WBC RBC Hgb Hct MCV MCH MCHC RDW Std Deviation RDW Coeff of Adrian Plt Count MPV Sodium Potassium Chloride Carbon Dioxide Anion Gap BUN Creatinine Est Cr Clr Drug Dosing Est GFR ( Amer) Est GFR (Non-Af Amer) BUN/Creatinine Ratio Glucose POC Glucose 163 H 173 H 274 H Calcium 03/23/23 03/24/23 03/24/23 19:52 07:10 07:10 WBC 8.97 RBC 2.96 L Hgb 8.8 L Hct 26.6 L MCV 89.9 MCH 29.7 MCHC 33.1 RDW Std Deviation 48.4 H RDW Coeff of Adrian 14.6 H Plt Count 174 MPV 9.7 Sodium 135 L Potassium 3.9 Chloride 104 Carbon Dioxide 23 Anion Gap 8 BUN 39 H Creatinine 2.92 H D Est Cr Clr Drug Dosing 26.0 Est GFR ( Amer) 21.4 Est GFR (Non-Af Amer) 18.4 BUN/Creatinine Ratio 13.4 Glucose 221 H POC Glucose 243 H Calcium 8.2 L 03/24/23 03/24/23 03/24/23 07:37 11:06 11:07 WBC RBC Hgb Hct MCV MCH MCHC RDW Std Deviation RDW Coeff of Adrian Plt Count MPV Sodium Potassium Chloride Carbon Dioxide Anion Gap BUN Creatinine Est Cr Clr Drug Dosing Est GFR ( Amer) Est GFR (Non-Af Amer) BUN/Creatinine Ratio Glucose POC Glucose 231 H 309 H* 299 H Calcium 03/24/23 16:13 WBC RBC Hgb Hct MCV MCH MCHC RDW Std Deviation RDW Coeff of Adrian Plt Count MPV Sodium Potassium Chloride Carbon Dioxide Anion Gap BUN Creatinine Est Cr Clr Drug Dosing Est GFR ( Amer) Est GFR (Non-Af Amer) BUN/Creatinine Ratio Glucose POC Glucose 93 Calcium Microbiology 03/22/23 09:31 Blood Aerobic Blood Culture - Preliminary No growth in Aerobic bottle after 48 hours. 03/22/23 09:31 Blood Anaerobic Blood Culture - Preliminary No growth in Anaerobic bottle after 48 hours. 03/22/23 09:36 Blood Aerobic Blood Culture - Preliminary No growth in Aerobic bottle after 48 hours. 03/22/23 09:36 Blood Anaerobic Blood Culture - Preliminary No growth in Anaerobic bottle after 48 hours. 03/18/23 20:17 Blood Aerobic Blood Culture - Final Enterococcus faecalis 03/18/23 20:17 Blood Anaerobic Blood Culture - Final Enterococcus faecalis 03/18/23 20:17 Blood Aerobic Blood Culture - Final Enterococcus faecalis 03/18/23 20:17 Blood Anaerobic Blood Culture - Final Enterococcus faecalis 03/20/23 19:32 Blood Aerobic Blood Culture - Preliminary Enterococcus faecalis 03/20/23 19:32 Blood Anaerobic Blood Culture - Preliminary No growth in Anaerobic bottle after 48 hours. 03/20/23 19:30 Blood Aerobic Blood Culture - Preliminary No growth in Aerobic bottle after 48 hours. 03/20/23 19:30 Blood Anaerobic Blood Culture - Preliminary No growth in Anaerobic bottle after 48 hours. Medications Administered Current Inpatient Medications Acetaminophen (Acetaminophen 325 Mg Tab) 650 mg PO Q4H PRN PRN Reason: Pain or Fever Stop: 04/18/23 01:58 Last Admin: 03/23/23 12:34 Dose: 650 mg Albuterol (Albuterol Hfa 8 Gm Inhaler) 2 puffs INH Q6H PRN PRN Reason: shortness of breath or wheezing Stop: 04/18/23 01:58 Apixaban (Apixaban 2.5 Mg Tab) 2.5 mg PO BID VANDANA Stop: 04/21/23 20:59 Last Admin: 03/24/23 08:15 Dose: 2.5 mg Aspirin (Aspirin 81 Mg Ectab) 81 mg PO DAILY VANDANA Stop: 04/18/23 08:59 Last Admin: 03/24/23 09:30 Dose: 81 mg Clonazepam (Clonazepam 1 Mg Tab) 1 mg PO BID VANDANA Stop: 04/18/23 08:59 Last Admin: 03/24/23 08:25 Dose: 1 mg Dextrose (Dextrose 50% 50 Ml Syringe) 25 - 50 ml IV UD PRN; Protocol PRN Reason: Hypoglycemia Protocol Stop: 04/18/23 01:58 Finasteride (Finasteride 5 Mg Tab) 5 mg PO HS VANDANA Stop: 04/18/23 20:59 Last Admin: 03/23/23 20:38 Dose: 5 mg Fluticasone/Vilanterol (Fluticasone/Vilanterol 100/25mcg 14 Puffs/Inhaler) 1 puffs INH DAILY VANDANA Stop: 04/18/23 08:59 Last Admin: 03/24/23 08:15 Dose: 1 puffs Gabapentin (Gabapentin 100 Mg Cap) 100 mg PO QAM VANDANA Stop: 04/18/23 08:59 Last Admin: 03/24/23 08:15 Dose: 100 mg Gabapentin (Gabapentin 300 Mg Cap) 300 mg PO HS VANDANA Stop: 04/18/23 20:59 Last Admin: 03/23/23 20:37 Dose: 300 mg Glucagon (Glucagon For Inj 1 Mg Vial) 1 mg SQ UD PRN; Protocol PRN Reason: Hypoglycemia Protocol Stop: 04/18/23 01:58 Glucose (Glucose 10 Tab/Tube) 4 - 8 tab PO UD PRN; Protocol PRN Reason: Hypoglycemia Treatment Stop: 04/18/23 01:58 Glucose (Glucose 40% Gel 15 Gm Tube) 15 - 30 gm PO UD PRN; Protocol PRN Reason: Hypoglycemia Protocol Stop: 04/18/23 01:58 Ampicillin Sodium 2,000 mg/ (Sodium Chloride) 100 mls @ 200 mls/hr IV Q8H VANDANA Stop: 04/02/23 13:59 Last Infusion: 03/24/23 15:20 Dose: Infused Insulin Aspart (Insulin Aspart Per Unit Charge) 0 units SC ACHS VANDANA Stop: 04/18/23 07:29 Last Admin: 03/24/23 17:37 Dose: 1 units Insulin Glargine (Lantus Per Unit Charge) 20 units SQ QAM VANDANA Stop: 04/24/23 08:59 Levothyroxine Sodium (Levothyroxine Sodium 88 Mcg Tablet) 88 mcg PO DAILYBB VANDANA Stop: 04/18/23 06:29 Last Admin: 03/24/23 05:33 Dose: 88 mcg Metoprolol Tartrate (Metoprolol Tartrate 25 Mg Tab) 25 mg PO BID VANDANA Stop: 04/18/23 08:59 Last Admin: 03/24/23 08:15 Dose: 25 mg Miscellaneous (Carbohydrates For Hypoglycemia ) 15 - 30 gm PO UD PRN PRN Reason: Hypoglycemia Protocol Stop: 04/18/23 01:58 Last Admin: 03/20/23 07:33 Dose: 15 gm Ondansetron HCl (Ondansetron 4 Mg Od Tab) 4 mg PO Q6H PRN PRN Reason: Nausea Stop: 04/18/23 01:58 Pantoprazole Sodium (Pantoprazole 40 Mg Tab) 40 mg PO BID [facility] Stop: 04/18/23 08:59 Last Admin: 03/24/23 08:15 Dose: 40 mg Polyethylene Glycol (Polyethylene (Miralax) 17 Gm Pack) 17 gm PO DAILY PRN PRN Reason: Constipation Stop: 04/18/23 01:58 Rosuvastatin Calcium (Rosuvastatin Calcium 20 Mg Tab) 20 mg PO HS [facility] Stop: 04/18/23 20:59 Last Admin: 03/23/23 20:37 Dose: 20 mg Tamsulosin HCl (Tamsulosin Hcl 0.4 Mg Cap) 0.8 mg PO HS [facility] [place] Stop: 04/18/23 20:59 Last Admin: 03/23/23 20:37 Dose: 0.8 mg Umeclidinium Venus (Umeclidinium Venus 62.5mcg/Blister 7 Puffs/Inhaler) 1 puffs INH DAILY [facility] Stop: 04/18/23 08:59 Last Admin: 03/24/23 08:14 Dose: 1 puffs
[2023-03-24] MEDS: ROSUVASTATIN CALCIUM 20 MG TAB PO SCH (20:06)
[2023-03-24] MEDS: ACETAMINOPHEN 325 MG TAB PO PRN (20:06)
[2023-03-24] MEDS: GABAPENTIN 300 MG CAP PO SCH (20:07)
[2023-03-24] MEDS: TAMSULOSIN HCL 0.4 MG CAP PO SCH (20:07)
[2023-03-24] MEDS: FINASTERIDE 5 MG TAB PO SCH (20:07)
[2023-03-25] MEDS: AMPICILLIN 2,000 MG in SODIUM CHLOR 0.9% MINI-B 100 ML IV SCH ×3 (05:47→21:49)
[2023-03-25] MEDS: LEVOTHYROXINE SODIUM 88 MCG TABLET PO SCH (05:50)
--- NOTE | 2023-03-25 07:57 | Hospitalist Progress Note ---
Date of Service March 25, 2023 Assessment & Plan (1) Hypotension: (2) Elevated troponin I level: (3) Recurrent bacteremia: (4) Anxiety: (5) Anemia of chronic disease: (6) Chronic kidney disease, stage 4 (severe): (7) Acute kidney injury superimposed on CKD: (8) Moderate calcific aortic stenosis: (9) Peripheral vascular disease: (10) Lower extremity edema: (11) Benign prostatic hyperplasia with urinary obstruction: (12) COPD (chronic obstructive pulmonary disease): (13) Hypothyroidism: (14) Hypertension: (15) Dyslipidemia: (16) Paroxysmal atrial fibrillation: (17) Vitamin D deficiency: (18) CAD (coronary artery disease): (19) GERD (gastroesophageal reflux disease): (20) CHF (congestive heart failure): (21) Diabetes: Plan 87 yo male with PMHx of CKD Stage 4 (previous admission with JUDI requiring temporary dialysis), DVT, DM2 insulin dependent, HTN, hypothyroidism, afib, CAD, BPH, GERD, recurrent bacteremia, aortic stenosis, anxiety, and CHF who presents with unwitnessed fall with concomitant bowel/bladder incontinence and associated hypotension. 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 - UA negative - WBC 10.1-->9 - Blood cx positive for gram positive cocci in chains. - repeat blood culture 03/20 also positive - repeat blood culture 03/22 negative at 24H - PCR Enterococcus Faecalis positive (VRE not detected) - ID consulted, appreciate recs: - GLO negative for vegetations - unclear source of recurrent E. Faecalis bacteremia - right ankle and left knee XR negative for acute process - Ortho consulted, no concern about septic arthritis and not recommending further work up at this time - Recommend repeat blood cultures Q24-48H until cleared - Continue IV ampicillin, PICC line ordered, to be inserted to facilitate extended antibiotic therapy (2-3 months) - Recommend repeat blood cultures 1 week and 2 weeks following completion of antibiotics, also recommend immediate blood culture if febrile - OT recommending SNF placement - PT recommending SNF placement - Case management following, placement pending -CBC am -Blood culture repeated #JUDI on CKD stage 4 - Cr 2.22-->2.9--> 3.78 - Baseline ~2. Follows with nephro. - Elevation in creatinine likely secondary to dehydration, pre renal JUDI - Continue to hold home Bumex - Nephrology consulted - Sodium and creatinine urine ordered -Urine eosinophils and u/a ordered -LR 80 ml/hr #Elevated troponin - Trop 72 on admission, repeat Trop 63 - EKG without ischemic changes, suspect due to demand #Hypotension (resolved) - Likely from infection - BP 74/44 in ED, improved with IV fluids - Currently hemodynamically stable #Chronic HFpEF #Aortic stenosis #Peripheral edema #CAD/PVD/HLD #Afib -Continue to hold home Bumex -cont. metoprolol; eliquis -cont. statin -cont. ASA, statin #DM2 -Lantus + SSI #Diabetic neuropathy -cont. gabapentin #COPD -cont. home inhalers #Anxiety -cont. clonazepam #BPH -cont. finasteride, tamsulosin DVT ppx: Eliquis FEN/GI: DM2 Admission and Anticipated Discharge Date Admission Date: March 19, 2023 Supervising Physician Co-Signing Physician Notes I personally examined the patient and verified all aguayo points of history and exam, discussed case, and agree with decision making with Dr Grissom no new complaints but Cr increased further - d/w pt nephrology to see. d/w nephro - input greatly appreciated. Vitals noted, in general he is awake and alert pleasant no distress. HEENT normocephalic atraumatic mucous membranes moist. Breathing unlabored no accessory muscle use good effort. Skin shows no rashes no pallor or icterus. Neuro without focal deficits. Recurrent Enterococcus bacteremiasurprisingly no vegetation. ?GI source. ?chronic bladder colonization. ?chronic leg wounds (seems less likely given enterococcus). ID input appreciatedcontinue ampicillin for now, will likely require for a while. Orthopedic evaluation Reassuring. Plan for center care and likely prolonged ampicillin with close follow-up after once ARF is more stable ARF - ?etiology - might simply be prerenal - but has had 2 separate episodes of ARF thought to be AIN that led to HD - both times he then recovered, but concerning that after Cr in a baseline range it is suddenly climbing. UA, FeNa, urine eosinophils sent, LR started. nephro input appreciated - agree renal biopsy might be helpful if this does not quickly improve Weaknesscontinue to encourage movement and follow on apixaban - but can be held if needed for renal bx Subjective 87 yo male with PMHx of CKD Stage 4 (previous admission with JUDI requiring temporary dialysis), DVT, DM2 insulin dependent, HTN, hypothyroidism, afib, CAD, BPH, GERD, recurrent bacteremia, aortic stenosis, anxiety, and CHF who presents with fall. Patient resting comfortably upon evaluation this morning. Notes that his legs are feeling weak, is concerned about his ability to walk. Discussed recommendation of placement, to which patient is amenable but would like to discuss with his . Denies CP, SOB, dysuria. Review of Systems Review of Systems: as per hpi Physical Exam Constitutional: WD/WN, vitals as above Respiratory: normal respiratory effort, lungs clear to auscultation Cardiovascular: Rate/Rhythm: regular rate and regular rhythm Heart Sounds: + murmur (systolic ejection murmur ) Extremities: + edema (minimal LE edema bilaterally ) Psychiatric: A+Ox3, euthymic affect Results & Data Results & Data Vital Signs (Past 12 Hours) Vital Signs O2 Del Method 03/24/23 23:00 Room Air 03/24/23 21:00 Room Air Resident Activity Tracking Resident Involvement: Resident Care Provided Care Provided: Adult Hospital Medicine (12) COPD (chronic obstructive pulmonary disease) COPD type: unspecified COPD Qualified Code(s): J44.9 - Chronic obstructive pulmonary disease, unspecified (13) Hypothyroidism Hypothyroidism type: unspecified Qualified Code(s): E03.9 - Hypothyroidism, unspecified (14) Hypertension Hypertension type: essential hypertension Qualified Code(s): I10 - Essential (primary) hypertension (18) CAD (coronary artery disease) Associated angina: without angina Coronary Disease-Associated Artery/Lesion type: grindstone artery [place] vs. transplanted heart: grindstone heart Qualified Code(s): I25.10 - Atherosclerotic heart disease of grindstone coronary artery without angina pectoris (19) GERD (gastroesophageal reflux disease) Esophagitis presence: esophagitis presence not specified Qualified Code(s): K21.9 - Gastro-esophageal reflux disease without esophagitis (20) CHF (congestive heart failure) Heart failure chronicity: unspecified Heart failure type: unspecified Qualified Code(s): I50.9 - Heart failure, unspecified (21) Diabetes Diabetes mellitus complication status: with hyperglycemia Diabetes mellitus oil heaterman insulin use: with oil heaterman use Diabetes mellitus type: type 2 Qualified Code(s): E11.65 - Type 2 diabetes mellitus with hyperglycemia; Z79.4 - residential (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
[2023-03-25 08:11] LABS: BUN Creatinine Ratio 12.7 (10-20); Creatinine Clr Calc Pharmacy 14.7 ml/min; Est GFR (African American) 15.6 ml/min; Est GFR (Non-African American) 13.5 ml/min; Potassium 3.8 mmol/L (3.5-5.1)
[2023-03-25] MEDS: METOPROLOL TARTRATE 25 MG TAB PO SCH ×2 (08:40→20:21)
[2023-03-25] MEDS: PANTOprazole 40 MG TAB PO SCH ×2 (08:40→20:21)
[2023-03-25] MEDS: APIXABAN 2.5 MG TAB PO SCH ×2 (08:40→20:21)
[2023-03-25] MEDS: GABAPENTIN 100 MG CAP PO SCH (08:40)
[2023-03-25] MEDS: FLUTICASONE/VILANTEROL 100/25MCG 14 PUFFS/INHALER INH SCH (08:40)
[2023-03-25] MEDS: ASPIRIN 81 MG ECTAB PO SCH (08:40)
[2023-03-25] MEDS: UMECLIDINIUM BROMIDE 62.5MCG/BLISTER 7 PUFFS/INHALER INH SCH (08:41)
[2023-03-25] MEDS: INSULIN ASPART PER UNIT CHARGE SC SCH ×4 (08:49→21:27)
[2023-03-25] MEDS: clonazePAM 1 MG TAB PO SCH ×2 (08:49→20:21)
[2023-03-25] MEDS: LANTUS PER UNIT CHARGE SQ SCH (08:50)
[2023-03-25] MEDS: LACTATED RINGER'S 1,000 ML IV SCH ×2 (08:56→22:53)
--- NOTE | 2023-03-25 12:00 | Nephrology Consultation ---
Date of Consultation March 25, 2023 Assessment & Plan (1) Acute kidney injury superimposed on CKD: Non-oliguric. Urine output reduced. IVF infusing to encourage urine output. Electrolytes acceptable. Volume status appears relatively euvolemic or intravascularly depleted. BP acceptable. No new nephrotoxic medications. CT obtained earlier during admission reviewed. Notable chronic changes and bilateral symmetric renal atrophy. Aorta and renal arteries are notably calcified. Clinical presentation atypical for obstructive etiology. No post obstructive findings on CT obtained January 16. Renal US will be updated. Updated urine studies including UA/microscopy requested. Urine eosinophils also pending but unfortunately poor diagnostic test. Chang has had presumed AIN with cephalosporins in the past. He was subsequently able to tolerate ampicillin but it is possible he has now developed AIN due to ampicillin. He may also have interstitial disease triggered by infections. I would not feel compelled to change antibiotic therapy at this time but consideration may be made in the future. Ultimately, if there is no obvious etiology for JUDI identified on urine studies or kidney ultrasound, kidney biopsy may be considered given complex history of recurrent JUDI previously attributed to AIN. However, kidney dysfunction is unfortunately advanced at baseline and the patient has multiple medical comorbidities and frailty which make biopsy a higher risk procedure. Anticoagulation would need to be stopped to safely consider biopsy. At this time, I would encourage continued IVF to maintain even to slightly positive fluid balance. Document strict I/O's. Check urine studies and renal US. Repeat metabolic profile tomorrow AM. Check complement levels with next blood work. Medications are currently appropriately dosed for kidney function. There is no emergent indication for dialysis. (2) Chronic kidney disease, stage 4 (severe): Baseline creatinine 1.6-2.0 mg/dL. CKD III-IV A3. Kidney dysfunction advanced. Notable calcific vascular disease. Prior evaluation for JANELLE negative. Prognosis for recovery is unfortunately guarded. Chang has required HD for 2 separate episodes of JUDI in the past 6 months. (3) Recurrent bacteremia: GLO negative for vegetation. C3/C4 will be checked with next blood work. Repeat urine studies pending. ID consultation reviewed. Remains on ampicillin. (4) Anemia of chronic disease: H/H stable. No reported symptoms. Epogen provided during recent hospitalizations. Repeat H/H and update iron profile ordered for tomorrow AM. SHANNEN will be coordinated tomorrow based on results of follow up blood work. History of Present Illness Reason for Consultation: ARF Requesting Physician: Alexandru Harrell DO Attending Physician: Alexandru Harrell DO History of Present Illness Mr. Aj Monroy is an 87 year-old male with CKD III-IV A3. Baseline creatinine 1.6-2.0 mg/dL (eGFR 28-35). CKD attributed to DKD, notable calcific vascular disease, and multiple episodes of JUDI. Chang has had 2 prior episodes of JUDI requiring dialysis. I provided care for Chang during prior hospitalizations while he was on hemodialysis. Chang has followed in the [facility] nephrology clinic with Dr. Dixon. Following most recent episode of JUDI (December), creatinine improved to 1.6 mg/dL. Creatinine was 2.0 mg/dL on May 16. Creatinine increased to 2.9 mg/dL on March 18. It was 2.0 on March 21 following hydration and supportive care. Creatinine 2.2 mg/dL on March 23 and then increased to 2.9 mg/dL on March 24. Creatinine notably elevated at 3.78 mg/dL today. Chang has been non-oliguric but urine output low. BP has been stable. Chang was sleeping in bed when I entered his room. He reports feeling tired. He admits to a somewhat poor appetite. Otherwise, he feels well. No fevers or chills. No shortness of breath. No cough. No skin rash or lesions. I met Chang during a prior hospitalization in September. 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 HD was stopped on October 13. He completed a course of prednisone for AIN. 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 Chang was admitted to [facility] from December 29-. He presented with mental status changes and weakness. Evaluation notable for Klebseilla pneumonia UTI. JUDI developed following treatment with Rochephin. Due to concerns regarding possible urinary retention, Lopez was placed and maintained at discharge. Evaluation was concerning AIN. Chang was treated with a course of prednisone 40 mg daily. He received dialysis treatments through a [facility] TDC placed by Dr. Ramirez on January 06. Chang's last HD treatment was January 11. TDC removed January 16. Lopez removed at discharge. Bumex and losartan held. Chang was readmitted January 20-February 01 with mental status changes and weakness. Evaluation notable for E Faecalis bacteremia treated with a course of ampicillin. In September, evaluation was also notable for urine retention related to urethral stricture and false passage of a urine catheter. He was then subsequently admitted November 09- with mental status changes, poor appetite, and nausea. Two falls at home were reported prior to admission. Creatinine was elevated at 2.8 mg/dL on admission. Evaluation notable for E faecalis in the blood and urine treated with ampicillin. TTE negative for vegetations. Losartan was held through the admission and restarted at discharge. Chang was discharged to [facility] where he completed rehab prior to returning home with his . He was then readmitted Dec 01 with hyperglycemia treated with insulin and IVF. Creatinine was ~1.5 mg/dL at discharge from this admission. He was discharged on Bumex 2 mg BID and losartan 25 mg daily. Past medical history is notable for urethral stricture with history of urinary retention, BPH s/p TURP, HFpEF, paroxysmal atrial fibrillation, aortic stenosis, coronary artery disease, DM, hypertension, OA/DJD, spinal stenosis with history of lumbar discectomy and decompression by Dr. Caldwell. Allergies Allergy/AdvReac Type Severity Reaction Status Date / Time Cephalosporins Allergy Unknown Verified 03/19/23 00:43 ciprofloxacin [From Cipro] AdvReac Severe Unknown Verified 03/19/23 00:43 semaglutide [From Ozempic] AdvReac Severe NAUSEA/VOMI Verified 03/19/23 00:43 TING/ANOREX IA amlodipine AdvReac Intermediate SWELLING Verified 03/19/23 00:43 OF ANKLES ropinirole AdvReac Intermediate CHANGE IN Verified 03/19/23 00:43 MENTAL STATUS silver [From SilvaSorb] AdvReac (silver Verified 03/19/23 02:04 dressings) redness of skin Home Medications Medication Instructions Recorded Confirmed Type albuterol sulfate 90 mcg/actuation 2 puffs inhalation Q6H PRN 01/10/19 03/19/23 History aerosol inhaler shortness of breath or wheezing levothyroxine 88 mcg tablet 75 mcg PO DAILYBB #90 tabs 01/10/19 03/19/23 History potassium chloride 20 mEq 20 meq PO BID 01/10/19 03/19/23 History tablet,extended release finasteride 5 mg tablet 5 mg PO HS 04/23/19 03/19/23 History gabapentin 100 mg capsule See Rx Instructions .Route .COMPLEX 12/16/20 03/19/23 History aspirin 81 mg tablet,delayed 81 mg PO DAILY 10/11/21 03/19/23 History release pantoprazole 20 mg tablet,delayed 20 mg PO BID 02/07/22 03/19/23 History release acetaminophen 500 mg tablet 1,000 mg PO Q6H PRN PAIN/FEVER 05/28/22 03/19/23 History (Tylenol Extra Strength) clonazepam 1 mg tablet 1 mg PO BID 05/28/22 03/19/23 History fluticasone 500 mcg-salmeterol 50 1 inh inhalation BID 05/28/22 03/19/23 History mcg/dose blistr powdr for inhalation metoprolol tartrate 50 mg tablet 25 mg PO BID 05/28/22 03/19/23 History multivitamin with minerals 1 tab PO DAILY 05/28/22 03/19/23 History rosuvastatin 20 mg tablet 20 mg PO HS 05/28/22 03/19/23 History tiotropium bromide 2.5 2 puff inhalation DAILY 05/28/22 03/19/23 History mcg/actuation mist for inhalation vitamins A,C,Z-tghq-ovexhf 2,148 1 tab PO DAILY 05/28/22 03/19/23 History mcg-113 mg-45 mg-17.4 mg tablet (PreserVision AREDS) apixaban 5 mg tablet (Eliquis) 2.5 mg PO Q12H 12/29/22 03/19/23 History calcium citrate 315 mg-vitamin D3 2 tab PO DAILY 12/29/22 03/19/23 History 5 mcg (200 unit) tablet (Calcium Citrate + D) loratadine 10 mg tablet (Claritin) 10 mg PO DAILY PRN Congestion 12/29/22 03/19/23 History tamsulosin 0.4 mg capsule (Flomax) 0.8 mg PO HS 12/29/22 03/19/23 History insulin aspart U-100 100 unit/mL 14 unit subcut TIDWMEAL 03/19/23 03/19/23 History subcutaneous solution (Novolog U-100 Insulin aspart) insulin glargine 100 unit/mL (3 26 unit subcut BID 03/19/23 03/19/23 History mL) subcutaneous pen (Lantus Solostar U-100 Insulin) Patient History Medical History Abdominal distension Acidosis Acute hyperkalemia Acute hyponatremia Acute kidney injury Acute pyelonephritis Acute renal failure Acute UTI (urinary tract infection) Acute UTI (urinary tract infection) Dhfrv-ro-hjqsjwu kidney injury JUDI (acute kidney injury) AMS (altered mental status) AMS (altered mental status) Anemia of chronic disease Anemia of chronic disease Anxiety Aortic stenosis Mild per 03/06/19 stress ECHO Asthma Uses rescue inhaler a couple times per week Atrial fibrillation Follows with Dr. Gr Bacteremia Blindness of left eye Bradycardia CAD (coronary artery disease) Angioplasty ~1993, CABG x 3 2013 (GALINDO to LAD, SVG to PDA, SVG to OM) Cellulitis CHF (congestive heart failure) Chronic kidney disease Follows with Dr. Dixon Chronic obstructive pulmonary disease Diabetes Type 2 IDDM Diabetic infection of right foot DVT (deep venous thrombosis) Fluid overload Foot ulcer GERD (gastroesophageal reflux disease) Headache Herpes zoster Hiatal hernia History of deep venous thrombosis (DVT) of distal vein of left lower extremity Hyperkalemia Hyperlipidemia Hyperosmolar hyperglycemic state (HHS) Hypertension Hypoglycemia Hypoglycemia due to insulin Hypothyroidism Leg wound, left Leukocytosis Macular degeneration Mild aortic stenosis Moderate aortic stenosis Myocardial infarct ~1993 Non-ST elevation PA (NSTEMI) Peripheral neuropathy Peripheral vascular disease Pneumonia Respiratory failure Rupture of left distal biceps tendon hx - no surgery Secondary hyperparathyroidism (of renal origin) Sepsis Sepsis Thrombocytopenia UTI (urinary tract infection) UTI (urinary tract infection) Wound of lower extremity Surgical History (Updated 03/24/23 @ 07:19 by Jese Gaitan MD) Fusion of spine lumbar History of appendectomy History [facility] cardiac [facility] ([facility]) History of cataract surgery bilateral History of coronary artery bypass graft x3 vessels ([facility] 2013) with epicardial RFA of pulmonary veins and left atrial appendage ligation History of revision of total replacement of right knee joint History of tonsillectomy History of tooth extraction History of total left knee replacement History of total right knee replacement Hx of colonoscopy Previous back surgery (08/26/12) S/P cholecystectomy Status post bilateral knee replacements Family History Brother Heart disease Diabetes Sister Cancer Mother Diabetes Father Diabetes Other Hypertension Kidney disease Social History Smoking Status: Never smoker Tobacco Type: Cigarettes Second Hand Exposure: No; Do You Dip or Chew Tobacco: No; Hx Alcohol Use: No Hx Substance Use: No Preferred Language: Tajik Communication Ability: Effective Visual Impairment: Partially Limited Brewery Representative Required: No Beliefs That Will Affect Care: None marital status: Current Living Situation: Spouse Current Living Situation Comment: lives at home with current occupational status: retired Feels Safe at Home: Yes Assistive Devices: Bedside Commode, Scooter/Electric Scooter, Walker and Wheelchair Review of Systems Review of Systems: All systems reviewed & are unremarkable except as noted in HPI & below Physical Exam Constitutional: + ill appearing and + frail appearing; no acute distress Eyes: + anicteric sclerae; no corneal abnormality ENMT: Mouth: + dry oral mucous membranes; no oral mucosal abnormality Neck: normal visual inspection, trachea midline and + thick neck Respiratory: normal respiratory effort Auscultation: lungs clear to auscultation bilaterally Cardiovascular: Rate/Rhythm: regular rate Heart Sounds: normal S1 and normal S2 Extremities: + pedal edema and + varicosities Musculoskeletal: Extremities: no cyanosis and no clubbing Skin: + turgor decreased; no rashes and no jaundice Neurologic: Motor/Sensory: no tremor and no asterixis Psychiatric: Orientation: alert and oriented x 3 Results & Data Vital Signs (Past 12 Hours) Vital Signs Temp Pulse Resp BP Pulse Ox O2 Del Method 03/25/23 09:14 37 C 71 16 149/66 H 94 Room Air Laboratory Results Laboratory Results - last 24 hr 03/24/23 03/24/23 03/25/23 16:13 20:23 06:42 Sodium 136 Potassium 3.8 Chloride 104 Carbon Dioxide 22 Anion Gap 10 BUN 48 H Creatinine 3.78 H D Est Cr Clr Drug Dosing 14.7 Est GFR ( Amer) 15.6 Est GFR (Non-Af Amer) 13.5 BUN/Creatinine Ratio 12.7 Glucose 176 H POC Glucose 93 276 H Calcium 8.0 L 03/25/23 07:52 Sodium Potassium Chloride Carbon Dioxide Anion Gap BUN Creatinine Est Cr Clr Drug Dosing Est GFR ( Amer) Est GFR (Non-Af Amer) BUN/Creatinine Ratio Glucose POC Glucose 194 H Calcium Diagnostic Findings Exam(s): CT ABDOMEN + PELVIS Without Contrast 03/18/2023 COMPARISON: No relevant prior studies available. FINDINGS: Lung bases: Atelectasis at the lung bases. Heart: Cardiomegaly. ABDOMEN: Liver: Unremarkable. Gallbladder and bile ducts: Cholecystectomy. No ductal dilation. Pancreas: Unremarkable. No ductal dilation. Spleen: Unremarkable. No splenomegaly. Adrenals: Unremarkable. No mass. Kidneys and ureters: No hydronephrosis or nephrolithiasis. Wall thickening of the urinary bladder measuring up to 7 mm, concerning for UTI. Urinalysis recommended. Stomach and bowel: Diverticulosis, without acute diverticulitis. No small bowel obstruction. No free intraperitoneal air. PELVIS: Appendix: No findings to suggest acute appendicitis. Bladder: See above. Reproductive: Unremarkable as visualized. ABDOMEN and PELVIS: Intraperitoneal space: Unremarkable. No free air. No significant fluid collection. Bones/joints: Degenerative changes of the spine. Multilevel posterior lumbar fusion and laminectomies. No acute fracture. No dislocation. Soft tissues: Unremarkable. Vasculature: Atherosclerotic changes of the aorta. No abdominal aortic aneurysm. Lymph nodes: Unremarkable. No enlarged lymph nodes. IMPRESSION: 1. Cholecystectomy. 2. Wall thickening of the urinary bladder measuring up to 7 mm, concerning for UTI. Urinalysis recommended. 3. Multilevel posterior lumbar fusion and laminectomies. 4. Diverticulosis, without acute diverticulitis. No small bowel obstruction. No free intraperitoneal air. PG Care Time/CCT Total # of Minutes Spent Total Time Spent with Patient: Total time spent is greater than 50% in coordination of care (as documented) at patient's floor/unit and/or counseling patient: Coding Level of Care Code 79264 IN/OBS CONSULT LVL 5,80M Diagnoses Acute kidney injury superimposed on CKD N17.9; N18.9 Chronic kidney disease, stage 4 (severe) N18.4 Recurrent bacteremia R78.81 Anemia of chronic disease D63.8
--- NOTE | 2023-03-25 17:50 | Ultrasound Report ---
BILATERAL LOWER EXTREMITY VENOUS DOPPLER HISTORY: Acute pain and swelling of the right lower extremity RLE Swelling COMPARISON STUDY: None. FINDINGS: There is normal compressibility, flow, and augmentation within the bilateral lower extremit y deep venous systems. Thickened partially calcified guadarrama of the right superficial femoral vein sugg estive of probable chronic nonocclusive thrombus. Subcutaneous edema. IMPRESSION: No acute DVT within the right or left lower extremity. ACT 112: Negative or not required by law. Electronically signed by: Pj Fernández M.D. 03/25/2023 5:49 PM
--- NOTE | 2023-03-25 17:56 | Ultrasound Report ---
RENAL ULTRASOUND HISTORY: Acute kidney injury JUDI COMPARISON: CT 03/18/2023 FINDINGS: Right kidney: 12.3 x 5.7 x 6.1 cm. No hydronephrosis. Diffuse cortical thinning. Left kidney: 12.9 x 6.4 x 5.5 cm. No hydronephrosis. Diffuse cortical thinning. 2.2 cm cyst of the in ferior pole. Bladder: Wall thickening and trabeculation with partial distention. The bilateral ureteral jets were identified. Trace left pleural effusion. The spleen measures 13 cm. IMPRESSION: 1. Cortical thinning of the kidneys without hydronephrosis. 2. Unchanged urinary bladder wall thickening with reticulation. Correlate with urinalysis. ACT 112: Negative or not required by law. Electronically signed by: Pj Fernández M.D. 03/25/2023 5:55 PM
--- NOTE | 2023-03-25 18:40 | Billing Data ---
Date of Service March 25, 2023 Coding Level of Care Code 69074 SUB INP/OBS CARE MIN
[2023-03-25] MEDS: ROSUVASTATIN CALCIUM 10 MG TAB PO SCH (20:21)
[2023-03-25] MEDS: GABAPENTIN 300 MG CAP PO SCH (20:21)
[2023-03-25] MEDS: TAMSULOSIN HCL 0.4 MG CAP PO SCH (20:21)
[2023-03-25] MEDS: FINASTERIDE 5 MG TAB PO SCH (20:21)
[2023-03-26] MEDS: LACTATED RINGER'S 1,000 ML IV SCH ×3 (01:54→16:35)
[2023-03-26 03:40] LABS: Appearance Urine Turbid (Clear); Bacteria Urine Automated Negative (Negative); Bilirubin Urine Negative (Negative); Blood Urine Negative (Negative); Color Urine Yellow; Epithelial Cell Urine Auto >30 /lpf (0-5); Glucose Urine UA Trace (Negative); Ketones Urine Negative (Negative); Leukocyte Esterase Urine Negative (Negative); Nitrite Urine Negative (Negative); Protein Urine 4+ (Negative); RBC Urine Automated 0-4 /hpf (0-4); Specific Gravity Urine 1.022 (1.000-1.030); Urobilinogen Urine Negative (Negative)
[2023-03-26 03:52] LABS: Sperm Urine Present (None Prsent)
[2023-03-26] MEDS: LEVOTHYROXINE SODIUM 88 MCG TABLET PO SCH (04:55)
[2023-03-26] MEDS: AMPICILLIN 2,000 MG in SODIUM CHLOR 0.9% MINI-B 100 ML IV SCH ×2 (05:02→13:48)
--- NOTE | 2023-03-26 06:59 | Hospitalist Progress Note ---
Date of Service March 26, 2023 Assessment & Plan (1) Hypotension: (2) Elevated troponin I level: (3) Recurrent bacteremia: (4) Anxiety: (5) Anemia of chronic disease: (6) Chronic kidney disease, stage 4 (severe): (7) Acute kidney injury superimposed on CKD: (8) Moderate calcific aortic stenosis: (9) Peripheral vascular disease: (10) Lower extremity edema: (11) Benign prostatic hyperplasia with urinary obstruction: (12) COPD (chronic obstructive pulmonary disease): (13) Hypothyroidism: (14) Hypertension: (15) Dyslipidemia: (16) Paroxysmal atrial fibrillation: (17) Vitamin D deficiency: (18) CAD (coronary artery disease): (19) GERD (gastroesophageal reflux disease): (20) CHF (congestive heart failure): (21) Diabetes: Plan 87 yo male with PMHx of CKD Stage 4 (previous admission with JUDI requiring temporary dialysis), DVT, DM2 insulin dependent, HTN, hypothyroidism, afib, CAD, BPH, GERD, recurrent bacteremia, aortic stenosis, anxiety, and CHF who presents with unwitnessed fall with concomitant bowel/bladder incontinence and associated hypotension. 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 - UA negative - WBC 10.1-->7.25 - Blood cx positive for gram positive cocci in chains. 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 - right ankle and left knee XR negative for acute process - Ortho consulted, no concern about septic arthritis and not recommending further work up at this time - Recommend repeat blood cultures Q24-48H until cleared - Continue IV ampicillin, PICC line ordered, to be inserted to facilitate extended antibiotic therapy (2-3 months) - Recommend repeat blood cultures 1 week and 2 weeks following completion of antibiotics, also recommend immediate blood culture if febrile - OT recommending SNF placement - PT recommending SNF placement - Case management following, placement pending -CBC am #JUDI on CKD stage 4 Suspected ATN - Cr 2.22-->2.9--> 3.78 --> 5.11 - Baseline ~2. Follows with nephro outpatient - Elevation in creatinine likely secondary to dehydration, pre renal JUDI (supportive FeNa) - Continue to hold home Bumex - Nephrology consulted, recommendation appreciated. No emergent indication for HIMS CODER -Presumed past AIN with cephalosporins -Probably developing AIN again due to ampicillin vs prerenal. Biopsy will not be performed at this moment, all pros and cons were discussed with pt and -Monitor I/Os -Renal ultrasound: No obstructive nephropathy -LR 125 ml/hr to maintain positive fluid balance -Replacing iron BMP am #Elevated troponin - Trop 72 on admission, repeat Trop 63 - EKG without ischemic changes, suspect due to demand #Hypotension (resolved) - Likely from infection - BP 74/44 in ED, improved with IV fluids - Currently hemodynamically stable #Chronic HFpEF #Aortic stenosis #Peripheral edema #CAD/PVD/HLD #Afib -Continue to hold home Bumex -cont. metoprolol; eliquis -cont. statin -cont. ASA, statin #DM2 -Lantus + SSI #Diabetic neuropathy -cont. gabapentin #COPD -cont. home inhalers #Anxiety -cont. clonazepam #BPH -cont. finasteride, tamsulosin DVT ppx: Eliquis FEN/GI: DM2 Admission and Anticipated Discharge Date Admission Date: March 19, 2023 Supervising Physician Co-Signing Physician Notes I personally examined the patient and verified all aguayo points of history and exam, discussed case, and agree with decision making with Dr Grissom no new complaints but Cr increased further - d/w pt nephrology to see. d/w nephro again - input greatly appreciated. d/w pt / together at bedside. does have some foot and ankle pain Vitals noted, in general he is awake and alert pleasant no distress. HEENT normocephalic atraumatic mucous membranes moist. Breathing unlabored no accessory muscle use good effort. Skin shows no rashes no pallor or icterus. Neuro without focal deficits. R ankle tenderness but not hot or marked joint effusion, same w R great toe. Recurrent Enterococcus bacteremiasurprisingly no vegetation. ?GI source. ?chronic bladder colonization. ?chronic leg wounds (seems less likely given enterococcus). ID input appreciatedcontinue ampicillin for now, will likely require for a while. Orthopedic evaluation reassuring. will need prolonged abx - ampicillin for now - agree w nephro doubt ampicillin precipitating ARF but will follow ARF - ?etiology - might simply be prerenal (FeNa does actually calculate ~0.8%) - but has had 2 separate episodes of ARF thought to be AIN that led to HD - both times he then recovered, but concerning that after Cr was in a baseline range it is suddenly climbing. Since FeNa low - fluids increased. nephro input appreciated. does have a lot of calcification of aorta at renal artery takeoff - ?exquisitely sensitive to prerenal insult. Weaknesscontinue to encourage movement and follow on apixaban - but can be held if needed for renal bx, although right now he does not have an interest in pursuing biopsy Subjective 87 yo male with PMHx of CKD Stage 4 (previous admission with JUDI requiring temporary dialysis), DVT, DM2 insulin dependent, HTN, hypothyroidism, afib, CAD, BPH, GERD, recurrent bacteremia, aortic stenosis, anxiety, and CHF who presents with fall. Patient resting comfortably upon evaluation this morning. Feel ok. Denies CP, SOB, dysuria. Review of Systems Review of Systems: All systems reviewed & are unremarkable except as noted in HPI & below Physical Exam Constitutional: WD/WN, vitals as above Respiratory: normal respiratory effort, lungs clear to auscultation Cardiovascular: Rate/Rhythm: regular rate and regular rhythm Extremities: + edema Gastrointestinal (Abdomen): normal bowel sounds, soft, nontender, no hepatosplenomegaly Psychiatric: A+Ox3, euthymic affect Results & Data Results & Data Vital Signs (Past 12 Hours) Vital Signs Temp Pulse Resp BP Pulse Ox O2 Del Method 03/25/23 20:00 Room Air 03/25/23 20:22 36.6 C 59 L 18 168/80 H 96 Room Air Resident Activity Tracking Resident Involvement: Resident Care Provided Care Provided: Adult Hospital Medicine (12) COPD (chronic obstructive pulmonary disease) COPD type: unspecified COPD Qualified Code(s): J44.9 - Chronic obstructive pulmonary disease, unspecified (13) Hypothyroidism Hypothyroidism type: unspecified Qualified Code(s): E03.9 - Hypothyroidism, unspecified (14) Hypertension Hypertension type: essential hypertension Qualified Code(s): I10 - Essential (primary) hypertension (18) CAD (coronary artery disease) Associated angina: without angina Coronary Disease-Associated Artery/Lesion type: [place] artery [place] vs. transplanted heart: [place] heart Qualified Code(s): I25.10 - Atherosclerotic heart disease of [place] coronary artery without angina pectoris (19) GERD (gastroesophageal reflux disease) Esophagitis presence: esophagitis presence not specified Qualified Code(s): K21.9 - Gastro-esophageal reflux disease without esophagitis (20) CHF (congestive heart failure) Heart failure chronicity: unspecified Heart failure type: unspecified Qualified Code(s): I50.9 - Heart failure, unspecified (21) Diabetes Diabetes mellitus complication status: with hyperglycemia Diabetes mellitus fci insulin use: with fci use Diabetes mellitus type: type 2 Qualified Code(s): E11.65 - Type 2 diabetes mellitus with hyperglycemia; Z79.4 - termite renewal inspector (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
[2023-03-26] MEDS: UMECLIDINIUM BROMIDE 62.5MCG/BLISTER 7 PUFFS/INHALER INH SCH (08:31)
[2023-03-26] MEDS: FLUTICASONE/VILANTEROL 100/25MCG 14 PUFFS/INHALER INH SCH (08:31)
[2023-03-26] MEDS: PANTOprazole 40 MG TAB PO SCH ×2 (08:32→19:28)
[2023-03-26] MEDS: METOPROLOL TARTRATE 25 MG TAB PO SCH ×2 (08:32→19:28)
[2023-03-26] MEDS: ASPIRIN 81 MG ECTAB PO SCH (08:32)
[2023-03-26] MEDS: APIXABAN 2.5 MG TAB PO SCH ×2 (08:32→19:26)
[2023-03-26] MEDS: GABAPENTIN 100 MG CAP PO SCH (08:32)
[2023-03-26] MEDS: clonazePAM 1 MG TAB PO SCH ×2 (08:36→19:32)
[2023-03-26] MEDS: LANTUS PER UNIT CHARGE SQ SCH (08:37)
[2023-03-26] MEDS: INSULIN ASPART PER UNIT CHARGE SC SCH ×4 (08:38→21:15)
[2023-03-26 09:12] LABS: Hematocrit (blood only) 24.8 % (42.0-52.0); Hemoglobin 8.1 g/dl (14.0-18.0); Mean Corpuscular Hemoglobin 29.2 pg (25.0-34.0); Mean Corpuscular Hgb Conc 32.7 g/dL (32.0-36.0); Mean Corpuscular Volume 89.5 fL (80.0-100.0); Mean Platelet Volume 9.7 fL (9.4-12.4); Platelet Count 194 K/uL (130-400); RDW Coefficient of Variation 14.4 % (11.5-14.5); RDW Standard Deviation 46.6 fL (36.4-46.3); Red Blood Count 2.77 M/uL (4.70-6.10); White Blood Count 7.25 K/ul (4.8-10.8)
[2023-03-26 09:34] LABS: Albumin Level 2.4 gm/dl (3.4-5.0); BUN Creatinine Ratio 10.4 (10-20); Calcium 7.8 mg/dl (8.6-10.3); Creatinine Clr Calc Pharmacy 10.9 ml/min; Est GFR (African American) 10.9 ml/min; Est GFR (Non-African American) 9.4 ml/min; Magnesium 2.1 mg/dl (1.7-2.4); Phosphorus 6.3 mg/dl (2.5-4.9); Potassium 4.1 mmol/L (3.5-5.1)
[2023-03-26 10:01] LABS: Ferritin 190.8 ng/ml (8-388)
[2023-03-26] MEDS: IRON SUCROSE 200 MG in 0.9 % SODIUM CHLORIDE 100 ML IV SCH (11:21)
--- NOTE | 2023-03-26 12:42 | Nephrology Progress Note ---
Date of Service March 26, 2023 Assessment & Plan (1) Acute kidney injury superimposed on CKD: Plan: Non-oliguric. Urine output reduced. IVF infusing to encourage urine output. Rate adjusted. FeNa supportive of continued prerenal JUDI. This is a very complicated case. Chang has had multiple episodes of JUDI requiring dialysis in the past. Chang has had presumed AIN with cephalosporins. He was able to tolerate ampicillin but it is possible he has now developed AIN due to ampicillin. He may also have interstitial disease triggered by infection. I would not feel compelled to change antibiotic therapy at this time but consideration may be made in the future. This was discussed with the hospitalist team. Potential role of renal biopsy for definitive diagnosis discussed. Kidney dysfunction is unfortunately advanced at baseline and the patient has multiple medical comorbidities and frailty which make biopsy a higher risk procedure. Anticoagulation would need to be stopped to safely consider biopsy. Chang and his declined this option at this time which is reasonable. I do not feel strongly that biopsy would improve outcome or pipe changer at this time. Renal US demonstrates bilateral ureteral jets. No evidence of obstructive nephropathy on this study. UA demonstrating 4+ protein with microscopy demonstrating 10-30 WBC, a few hyaline and a few granular casts. Epithelial cells noted as well. Clinical presentation suggestive of hemodynamic changes with prerenal JUDI and superimposed ATN. I cannot exclude AIN. Electrolytes acceptable. Volume status appears relatively euvolemic or intravascularly depleted. BP acceptable. CT obtained earlier during admission reviewed previously. There are significant chronic changes including bilateral symmetric renal atrophy and notable calcific vascular disease involving the aorta and renal arteries. Today, plan of care is to provide IVF to maintain even to slightly positive fluid balance. Document strict I/O's. Replace iron. Treat infection. Repeat metabolic profile tomorrow AM. C3/C4 pending. Medications are currently appropriately dosed for kidney function. There is no emergent indication for LINING CASER at this time. (2) Chronic kidney disease, stage 4 (severe): Plan: Baseline creatinine 1.6-2.0 mg/dL. CKD III-IV A3. Kidney dysfunction advanced. Notable calcific vascular disease. Prior evaluation for JANELLE negative. Prognosis for recovery is unfortunately guarded. Chang has indicated that he would refuse HD if indicated. Goals of care aimed at improving quality of life. (3) Recurrent bacteremia: Plan: GLO negative for vegetation. C3/C4 pending. No microscopic hematuria or RBC casts to suggest GN. Remains on ampicillin per ID recs. (4) Anemia of chronic disease: Plan: H/H stable. No reported symptoms. TONIO noted. Venofer 200 mg daily x 5 doses ordered to start today. Epogen will be ordered after initial infusions of IV iron have been completed. Repet H/H tomorrow. Admission and Anticipated Discharge Date Admission Date: March 19, 2023 Subjective No acute events overnight. Chang was seen and evaluated with his (Sveta) at the bedside. I also discussed the plan of care with Dr. Harrell today. hCang is experiencing some pain and sensitivity in his feet and ankles. In particular the DIP joint of the second toe has become red and sensitive to touch. No fevers or chills. No shortness of breath. Weakness persists. Appetite is poor. No LUTS reported. Chang's pointed out some dermatitis with irritation around the mouth and rodriguez as well as petechial lesions and bruising noted on the extremities. Chang has experienced similar skin reactions in the past. They are not particularly bothersome to him. Unfortunately, creatinine continues to rise and there has been no evidence of kidney recovery. Mental status noted to be waxing and waning but Chang was very lucid during our conversation. He expressed understanding of his condition. He became emotional talking about the chance of and stated "these tears are not about leaving but they are tears for those who are left behind." He mentioned that he is 87 years-old and that he is getting weaker and not stronger despite all his hospitalizations and medical care. When discussing dialysis, he mentioned health concerns about treating one thing so "something new can pop-up." However, Chang and his both agreed that quality of life during his recent weeks at home was good. They were in agreement in avoiding transfer to another healthcare facility. They are not interested in pursuing a kidney biopsy for definitive diagnosis of the cause of his kidney injury. They do not want to take the risk. This is understandable. At this time, Chang expressed that he does not want dialysis. He conveyed this to his prior to our meeting. We have had similar conversations in the past. In the past, Chang has changed regarding renal replacement therapy when faced with the idea of transitioning to comfort measures or hospice care. He opted for dialysis twice recently but he also mentioned that he does not want to ever go through dialysis again. Review of Systems Review of Systems: All systems reviewed & are unremarkable except as noted in HPI & below Physical Exam Constitutional: + ill appearing and + frail appearing; no acute distress Eyes: + anicteric sclerae; no corneal abnormality ENMT: Mouth: + dry oral mucous membranes; no oral mucosal abnormality Neck: normal visual inspection, trachea midline and + thick neck Respiratory: normal respiratory effort Auscultation: lungs clear to auscultation bilaterally Cardiovascular: Rate/Rhythm: regular rate Heart Sounds: normal S1 and normal S2 Extremities: + pedal edema and + varicosities Musculoskeletal: Extremities: no cyanosis and no clubbing R second toe with erythema and tenderness involving the DIP joint. Mild erythema with tenderness at the MTP joint of the great toe as well. No notable erythema or distal cyanosis. Skin: + turgor decreased; no rashes and no jaundice Neurologic: Motor/Sensory: no tremor and no asterixis Psychiatric: Orientation: alert and oriented x 3 Results & Data Vital Signs (Past 12 Hours) Vital Signs Temp Pulse Resp BP Pulse Ox O2 Del Method 03/26/23 07:45 36.9 C 72 18 157/67 H 95 Room Air Laboratory Results Laboratory Results - last 24 hr 03/25/23 03/25/23 03/26/23 17:50 20:21 02:36 WBC RBC Hgb Hct MCV MCH MCHC RDW Std Deviation RDW Coeff of Adrian Plt Count MPV Sodium Potassium Chloride Carbon Dioxide Anion Gap BUN Creatinine Est Cr Clr Drug Dosing Est GFR ( Amer) Est GFR (Non-Af Amer) BUN/Creatinine Ratio Glucose POC Glucose 164 H 184 H Calcium Phosphorus Magnesium Iron TIBC Unsaturated IBC Transferrin % Sat Ferritin Albumin Urine Color Yellow Urine Appearance Turbid A Urine pH 5.0 Ur Specific [place] 1.022 Urine Protein 4+ H Urine Glucose (UA) Trace H Urine Ketones Negative Urine Blood Negative Urine Nitrite Negative Urine Bilirubin Negative Urine Urobilinogen Negative Ur Leukocyte Esterase Negative Urine WBC (Auto) 10-30 H Urine RBC (Auto) 0-4 U Hyaline Cast (Auto) 1-5 U Epithel Cells (Auto) >30 H Urine Bacteria (Auto) Negative Ur Renal Epithelial Cell Not Reportable Granular Casts 1-5 H Urine Yeast Budding A Urine Sperm Present A Ur Random Creatinine Ur Random Sodium Complement C3 Complement C4 Tot Complement (CH50) 03/26/23 03/26/23 03/26/23 03:15 08:03 08:13 WBC RBC Hgb Hct MCV MCH MCHC RDW Std Deviation RDW Coeff of Adrian Plt Count MPV Sodium 135 L Potassium 4.1 Chloride 104 Carbon Dioxide 21 Anion Gap 10 BUN 53 H Creatinine 5.11 H* D Est Cr Clr Drug Dosing 10.9 Est GFR ( Amer) 10.9 Est GFR (Non-Af Amer) 9.4 BUN/Creatinine Ratio 10.4 Glucose 121 H POC Glucose 133 H Calcium 7.8 L Phosphorus 6.3 H Magnesium 2.1 Iron 17 L TIBC 132 L Unsaturated IBC 115 L Transferrin % Sat 13 L Ferritin 190.8 Albumin 2.4 L Urine Color Urine Appearance Urine pH Ur Specific [place] Urine Protein Urine Glucose (UA) Urine Ketones Urine Blood Urine Nitrite Urine Bilirubin Urine Urobilinogen Ur Leukocyte Esterase Urine WBC (Auto) Urine RBC (Auto) U Hyaline Cast (Auto) U Epithel Cells (Auto) Urine Bacteria (Auto) Ur Renal Epithelial Cell Granular Casts Urine Yeast Urine Sperm Ur Random Creatinine 115.0 Ur Random Sodium 24 Complement C3 Complement C4 Tot Complement (CH50) 03/26/23 03/26/23 03/26/23 08:13 08:13 11:34 WBC 7.25 RBC 2.77 L Hgb 8.1 L Hct 24.8 L MCV 89.5 MCH 29.2 MCHC 32.7 RDW Std Deviation 46.6 H RDW Coeff of Adrian 14.4 Plt Count 194 MPV 9.7 Sodium Potassium Chloride Carbon Dioxide Anion Gap BUN Creatinine Est Cr Clr Drug Dosing Est GFR ( Amer) Est GFR (Non-Af Amer) BUN/Creatinine Ratio Glucose POC Glucose 179 H Calcium Phosphorus Magnesium Iron TIBC Unsaturated IBC Transferrin % Sat Ferritin Albumin Urine Color Urine Appearance Urine pH Ur Specific [place] Urine Protein Urine Glucose (UA) Urine Ketones Urine Blood Urine Nitrite Urine Bilirubin Urine Urobilinogen Ur Leukocyte Esterase Urine WBC (Auto) Urine RBC (Auto) U Hyaline Cast (Auto) U Epithel Cells (Auto) Urine Bacteria (Auto) Ur Renal Epithelial Cell Granular Casts Urine Yeast Urine Sperm Ur Random Creatinine Ur Random Sodium Complement C3 Pending Complement C4 Pending Tot Complement (CH50) Pending PG Care Time/CCT Total # of Minutes Spent Total Time Spent with Patient: Total time spent is greater than 50% in coordination of care (as documented) at patient's floor/unit and/or counseling patient: Coding Level of Care Code 46359 SUB INP/OBS CARE 350MIN Diagnoses Acute kidney injury superimposed on CKD N17.9; N18.9 Chronic kidney disease, stage 4 (severe) N18.4 Recurrent bacteremia R78.81 Anemia of chronic disease D63.8
[2023-03-26] MEDS: GABAPENTIN 300 MG CAP PO SCH (19:28)
[2023-03-26] MEDS: FINASTERIDE 5 MG TAB PO SCH (19:28)
[2023-03-26] MEDS: TAMSULOSIN HCL 0.4 MG CAP PO SCH (19:28)
[2023-03-26] MEDS: ROSUVASTATIN CALCIUM 10 MG TAB PO SCH (19:28)
--- NOTE | 2023-03-26 20:02 | Billing Data ---
Date of Service March 26, 2023 Coding Level of Care Code 31235 SUB INP/OBS CARE MIN
[2023-03-27] MEDS: AMPICILLIN 2,000 MG in SODIUM CHLOR 0.9% MINI-B 100 ML IV SCH ×2 (01:45→15:30)
[2023-03-27] MEDS: LACTATED RINGER'S 1,000 ML IV SCH ×3 (01:54→18:36)
[2023-03-27] MEDS: LEVOTHYROXINE SODIUM 88 MCG TABLET PO SCH (05:04)
--- NOTE | 2023-03-27 07:29 | Hospitalist Progress Note ---
Date of Service March 27, 2023 Assessment & Plan (1) Hypotension: (2) Elevated troponin I level: (3) Recurrent bacteremia: (4) Anxiety: (5) Anemia of chronic disease: (6) Chronic kidney disease, stage 4 (severe): (7) Acute kidney injury superimposed on CKD: (8) Moderate calcific aortic stenosis: (9) Peripheral vascular disease: (10) Lower extremity edema: (11) Benign prostatic hyperplasia with urinary obstruction: (12) COPD (chronic obstructive pulmonary disease): (13) Hypothyroidism: (14) Hypertension: (15) Dyslipidemia: (16) Paroxysmal atrial fibrillation: (17) Vitamin D deficiency: (18) CAD (coronary artery disease): (19) GERD (gastroesophageal reflux disease): (20) CHF (congestive heart failure): (21) Diabetes: Plan 87 yo male with PMHx of CKD Stage 4 (previous admission with JUDI requiring temporary dialysis), DVT, DM2 insulin dependent, HTN, hypothyroidism, afib, CAD, BPH, GERD, recurrent bacteremia, aortic stenosis, anxiety, and CHF who presents with unwitnessed fall with concomitant bowel/bladder incontinence and associated hypotension. 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 Faecalis bacteremia - right ankle and left knee XR negative for acute process - Ortho consulted, no concern about septic arthritis and not recommending further work up at this time - Continue IV ampicillin, - OT recommending SNF placement - PT recommending SNF placement - Case management following, placement pending - PICC line ordered, to be inserted to facilitate extended antibiotic therapy (2-3 months), then will do repeat cx 1-2 weeks after finishing ABs - will hold IV and oral iron in setting of bacteremia #JUDI on CKD stage 4 Suspected ATN - Cr 2.22-->2.9--> 3.78 --> 5.11 -> 5.96 - Baseline ~2. Follows with nephro outpatient - Elevation in creatinine prerenal, likely secondary to dehydration vs ampicillin use - Continue to hold home Bumex -Monitor I/Os -LR 125 ml/hr to maintain positive fluid balance - pt does not want dialysis at this time, will continue to hydrate #Elevated troponin - Trop 72 on admission, repeat Trop 63 - EKG without ischemic changes, suspect due to demand #Hypotension (resolved) - Likely from infection - BP 74/44 in ED, improved with IV fluids - Currently hemodynamically stable #Chronic HFpEF #Aortic stenosis #Peripheral edema #CAD/PVD/HLD #Afib -Continue to hold home Bumex -cont. metoprolol; eliquis -cont. statin -cont. ASA, statin #DM2 -Lantus + SSI #Diabetic neuropathy -cont. gabapentin #COPD -cont. home inhalers #Anxiety -cont. clonazepam #BPH -cont. finasteride, tamsulosin DVT ppx: Eliquis FEN/GI: DM2 Admission and Anticipated Discharge Date Admission Date: March 19, 2023 Supervising Physician Co-Signing Physician Notes Attending attestation Pt seen and examined in concert with Dr. Carias. In agreement with the documented findings as noted in the resident documentation with any exceptions or additions as noted here. Resting in bed without acute complaint beyond fatigue at present. Spouse at bedside. On examination, S1/S2 nl RRR no MCG. CTAB. Abd NT/ND BS+ve JUDI on CKD IV - nephrology consult - continue LR at present rate and trend CMP. Patient declines HD. Goals of care tomorrow w/ consideration of palliative c/s E. faecalis bacteremia - PICC line today. Will need 2-3 months of ampicillin therapy for full treatment Else see resident documentation as noted. Subjective 87 yo male with PMHx of CKD Stage 4 (previous admission with JUDI requiring temporary dialysis), DVT, DM2 insulin dependent, HTN, hypothyroidism, afib, CAD, BPH, GERD, recurrent bacteremia, aortic stenosis, anxiety, and CHF who presents with fall. Today, pt states that he is feeling fine overall. He states his 2nd toe of his R foot hurt a lot yesterday, but is a bit better now. He states both his feet from the ankles down are really sore and make it hard for him to walk around. is present in the room with him. She states the edema he has in his legs is about what it normally is, but normally he does not have painful toes. She also states that she is tracking his kidney function and they have spoke and he does not want to go through dialysis again if it comes down to needing it. Review of Systems Review of Systems: Per HPI. Physical Exam 2 Physical Exam: General:Alert, quiet, no acute distress, HEENT: Normocephalic, moist oral mucosa, Cardio: Regular rate and rhythm, Resp:Lungs clear to auscultation b/l, Skin: Warm, pink, dry, Psych: Mood-affect congruence. Results & Data Results & Data Vital Signs (Past 12 Hours) Vital Signs Temp Pulse Resp BP Pulse Ox O2 Del Method 03/26/23 21:08 36.7 C 65 16 177/63 H 96 Room Air Resident Activity Tracking Resident Involvement: Resident Care Provided Care Provided: Adult [place] [facility] (12) COPD (chronic obstructive pulmonary disease) COPD type: unspecified COPD Qualified Code(s): J44.9 - Chronic obstructive pulmonary disease, unspecified (13) Hypothyroidism Hypothyroidism type: unspecified Qualified Code(s): E03.9 - Hypothyroidism, unspecified (14) Hypertension Hypertension type: essential hypertension Qualified Code(s): I10 - Essential (primary) hypertension (18) CAD (coronary artery disease) Associated angina: without angina Coronary Disease-Associated Artery/Lesion type: [place] artery [place] vs. transplanted heart: [place] heart Qualified Code(s): I25.10 - Atherosclerotic heart disease of [place] coronary artery without angina pectoris (19) GERD (gastroesophageal reflux disease) Esophagitis presence: esophagitis presence not specified Qualified Code(s): K21.9 - Gastro-esophageal reflux disease without esophagitis (20) CHF (congestive heart failure) Heart failure chronicity: unspecified Heart failure type: unspecified Qualified Code(s): I50.9 - Heart failure, unspecified (21) Diabetes Diabetes mellitus complication status: with hyperglycemia Diabetes mellitus intermediate insulin use: with termite treater use Diabetes mellitus type: type 2 Qualified Code(s): E11.65 - Type 2 diabetes mellitus with hyperglycemia; Z79.4 - snf (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
[2023-03-27 08:06] LABS: Hematocrit (blood only) 25.2 % (42.0-52.0); Hemoglobin 8.5 g/dl (14.0-18.0); Mean Corpuscular Hemoglobin 29.6 pg (25.0-34.0); Mean Corpuscular Hgb Conc 33.7 g/dL (32.0-36.0); Mean Corpuscular Volume 87.8 fL (80.0-100.0); Mean Platelet Volume 9.6 fL (9.4-12.4); Platelet Count 216 K/uL (130-400); RDW Coefficient of Variation 14.6 % (11.5-14.5); RDW Standard Deviation 46.8 fL (36.4-46.3); Red Blood Count 2.87 M/uL (4.70-6.10)
[2023-03-27 08:07] LABS: BUN Creatinine Ratio 9.4 (10-20); Calcium 7.9 mg/dl (8.6-10.3); Creatinine Clr Calc Pharmacy 9.3 ml/min; Est GFR (Non-African American) 7.8 ml/min; Magnesium 2.1 mg/dl (1.7-2.4); Phosphorus 6.6 mg/dl (2.5-4.9); Potassium 4.1 mmol/L (3.5-5.1)
[2023-03-27] MEDS: IRON SUCROSE 200 MG in 0.9 % SODIUM CHLORIDE 100 ML IV SCH (08:55)
[2023-03-27] MEDS: UMECLIDINIUM BROMIDE 62.5MCG/BLISTER 7 PUFFS/INHALER INH SCH (08:56)
[2023-03-27] MEDS: FLUTICASONE/VILANTEROL 100/25MCG 14 PUFFS/INHALER INH SCH (08:56)
[2023-03-27] MEDS: ASPIRIN 81 MG ECTAB PO SCH (08:57)
[2023-03-27] MEDS: PANTOprazole 40 MG TAB PO SCH ×2 (08:57→20:56)
[2023-03-27] MEDS: GABAPENTIN 100 MG CAP PO SCH (08:57)
[2023-03-27] MEDS: METOPROLOL TARTRATE 25 MG TAB PO SCH ×2 (08:57→20:57)
[2023-03-27] MEDS: APIXABAN 2.5 MG TAB PO SCH ×2 (08:57→20:57)
[2023-03-27] MEDS ORDERED: FERROUS SULFATE 325 MG TAB PO SCH (09:00)
[2023-03-27] MEDS: INSULIN ASPART PER UNIT CHARGE SC SCH ×4 (09:06→20:56)
[2023-03-27] MEDS: clonazePAM 1 MG TAB PO SCH ×2 (09:06→20:56)
[2023-03-27] MEDS: LANTUS PER UNIT CHARGE SQ SCH (09:07)
--- NOTE | 2023-03-27 09:41 | Nephrology Progress Note ---
Date of Service March 27, 2023 Assessment & Plan (1) Acute kidney injury superimposed on CKD: Plan: Non-oliguric. Urine output improving. Creatinine continues to rise. Electrolytes acceptable. Tolerating IVF. Volume status reasonable. Appetite remains diminished. There is no emergent indication for dialysis. Chang has indicated that he would refuse dialysis and transition to palliative care if kidney function does not recover. Clinical presentation suggestive of hemodynamic changes with prerenal JUDI and superimposed ATN. I cannot exclude AIN. Continue IVF to maintain even to slightly positive fluid balance. Document strict I/O's. Replace iron. Repeat metabolic profile tomorrow AM. C3/C4 pending. Medications are currently appropriately dosed for kidney function. (2) Chronic kidney disease, stage 4 (severe): Plan: Baseline creatinine 1.6-2.0 mg/dL. CKD III-IV A3. Kidney dysfunction advanced due to calcific vascular disease and multiple episodes of JUDI. Prognosis for rec overy is unfortunately guarded. Chang has indicated that he would refuse HD if indicated. (3) Recurrent bacteremia: Plan: GLO negative for vegetation. C3/C4 pending. No microscopic hematuria or RBC casts to suggest GN. Remains on ampicillin per ID recs. (4) Anemia of chronic disease: Plan: H/H stable. No reported symptoms. TONIO noted. Venofer 200 mg daily x 5 doses started 03/26. Epogen will be provided today. Repeat H/H tomorrow. Admission and Anticipated Discharge Date Admission Date: March 19, 2023 Subjective No acute events overnight. Chang was seen and evaluated with his at the bedside. He feels well. He reports improvement compared to yesterday. Less discomfort reported in feet and ankles. No fevers. Appetite slightly improved. Breathing comfortably. Tolerating IVF. Continues to deny any LUTS. Some increased lower extremity edema. Weakness persists. Expressed concerns about being moved toward discharge too quickly. Chang reiterated that he does not want dialysis again and would refuse if indicated. Review of Systems Review of Systems: All systems reviewed & are unremarkable except as noted in HPI & below Physical Exam Constitutional: + frail appearing; no acute distress Eyes: + anicteric sclerae; no corneal abnormality Neck: normal visual inspection and trachea midline Respiratory: normal respiratory effort Auscultation: lungs clear to auscultation bilaterally and + rales (faint basilar) Cardiovascular: Rate/Rhythm: regular rate Heart Sounds: normal S1, normal S2 and + murmur Extremities: + edema Musculoskeletal: Extremities: no cyanosis and no clubbing Skin: + turgor decreased; no rashes and no jaundice Neurologic: Motor/Sensory: no tremor and no asterixis Psychiatric: Orientation: alert and oriented x 3 Results & Data Vital Signs (Past 12 Hours) Vital Signs Temp Pulse Resp BP Pulse Ox O2 Del Method 03/27/23 07:44 36.9 C 80 16 177/63 H 95 Room Air Laboratory Results Laboratory Results - last 24 hr 03/26/23 03/26/23 03/26/23 08:13 11:34 16:51 WBC RBC Hgb Hct MCV MCH MCHC RDW Std Deviation RDW Coeff of Adrian Plt Count MPV Sodium Potassium Chloride Carbon Dioxide Anion Gap BUN Creatinine Est Cr Clr Drug Dosing Est GFR ( Amer) Est GFR (Non-Af Amer) BUN/Creatinine Ratio Glucose POC Glucose 179 H 140 H Calcium Phosphorus Magnesium Ferritin 190.8 03/26/23 03/27/23 03/27/23 21:06 07:21 07:22 WBC RBC Hgb Hct MCV MCH MCHC RDW Std Deviation RDW Coeff of Adrian Plt Count MPV Sodium 136 Potassium 4.1 Chloride 104 Carbon Dioxide 23 Anion Gap 9 BUN 56 H Creatinine 5.96 H* D Est Cr Clr Drug Dosing 9.3 Est GFR ( Amer) 9.0 Est GFR (Non-Af Amer) 7.8 BUN/Creatinine Ratio 9.4 L Glucose 120 H POC Glucose 179 H 114 H Calcium 7.9 L Phosphorus 6.6 H Magnesium 2.1 Ferritin 03/27/23 07:25 WBC 8.60 RBC 2.87 L Hgb 8.5 L Hct 25.2 L MCV 87.8 MCH 29.6 MCHC 33.7 RDW Std Deviation 46.8 H RDW Coeff of Adrian 14.6 H Plt Count 216 MPV 9.6 Sodium Potassium Chloride Carbon Dioxide Anion Gap BUN Creatinine Est Cr Clr Drug Dosing Est GFR ( Amer) Est GFR (Non-Af Amer) BUN/Creatinine Ratio Glucose POC Glucose Calcium Phosphorus Magnesium Ferritin PG Care Time/CCT Total # of Minutes Spent Total Time Spent with Patient: Total time spent is greater than 50% in coordination of care (as documented) at patient's floor/unit and/or counseling patient: Coding Level of Care Code 71804 SUB INP/OBS CARE 50MIN Diagnoses Acute kidney injury superimposed on CKD N17.9; N18.9 Chronic kidney disease, stage 4 (severe) N18.4 Recurrent bacteremia R78.81 Anemia of chronic disease D63.8
[2023-03-27] MEDS ORDERED: EPOETIN ALFA 40,000 UNITS/ML VIAL SQ ONE (10:00)
--- NOTE | 2023-03-27 14:43 | Infectious Disease Progress Nt ---
Date of Service March 27, 2023 Assessment & Plan (1) Recurrent bacteremia: Plan 87 yo male with a past medical history of CKD, DVT, DM, HTN, pAfib on eliquis, CAD, BPH, GERD, CHF who presents to the hospital on 01/20/2023 for hypoglycemia, weakness and worsened AMS, recently admitted with E. faecalis bacteremia treated and readmitted on 03/18 after a fall. Patient is now bacteremia with E. faecalis, ID consulted. During his last admission, patient very weak and fell. The following day he c/o chest pain but did not want her to take him to the hospital or call EMS. He had episodes of confusion and disorientation before. On day of admit, he was found to be hypoglycemic. Notably large blisters on his legs since getting home from the hospital. She states one of the blisters got very large and popped and states that it drained pus. Recently discharged from hospital on 01/16, admitted with JUDI, dx with acute interstitial nephritis. On admission on 01/20, WBC normal, but patient found to be altered and concern for UTI. WBC normal, Cr 2.08 He was given Vancomycin and ceftriaxone. 01/20 Blood cultures E. faecalis, Amp sensitive 01/20 Ucx three types of organism all high counts probable skin gilma 2DE negative then. He was treated 2 weeks of ampicillin from first negative culture through 02/07/23. Patient was treated but had sudden fall and readmitted on 03/18. 03/18 GPC, Rapidly ID E. faecalis (no resistance). ID now consulted. Imaging: CT A/P wo contrast: Wall thickening of the urinary bladder measuring up to 7 mm, Multilevel posterior lumbar fusion and laminectomies, diverticulosis 03/22 GLO negative Left knee xray no effusion R ankle xray no effusion 03/24 evaluated by ortho and no concern for septic arthritis in knees or ankle #Efaecalis bacteremia, recurrent #CKD #b/l TKAs #lumbar hardware MICRO 01/20 Blood cultures E. faecalis, Amp sensitive 01/20 Ucx three types of organism all high counts probable skin gilma 01/22 blood culture E. faecalis Amp sensitive 01/24 Bcx no growth to date 03/18 Bcx E. faecalis, ampS 03/20 Bcx E. faecalis, ampS 03/22 sterile 03/25 NGTD Discussion Patient with recurrent E. faecalis bacteremia. Initially presented previously with UTI at prior hospitalization now a/w +cx 03/18 and 03/20. Hardware in spine, b/l TKAs. Imaging is limited b/c of CKD. However GLO is negative, Xray of knee. Exam shows R foot swollen and tender to touch, suggesting possible source or seeding. I anticipate he will need extended treatment given recurrence w/o sig source. RECOMMEND -C/W Ampicillin 2 g iv q12 , monitor CrCl closely if continues to worsen will decrease dose ( cr 5.96, crcl 9) -Follow up blood cultures on 03/25, -If cont to be bacteremic will need evaluation of spinal hardware (at this time he has no back pain or tenderness) Please hold on any central lines until we have clearance. Admission and Anticipated Discharge Date Admission Date: March 19, 2023 Subjective This patient recommendation is based on a telemedicine consult request which was completed asynchronously through chart review and information provided by the primary physician. The patient was not seen or examined today. The evaluation is consultative in nature and all patient care and treatment decisions can either be accepted or rejected by the patient's primary hospital-based treating physician using their own independent medical judgment for their patient. Time Spent Reviewing Chart: 11 - 20 minutes Afebrile Repeat Bc NGTD so far no dvt cr up to 5.96 Results & Data Vital Signs (Past 12 Hours) Vital Signs Temp Pulse Resp BP Pulse Ox O2 Del Method 03/27/23 07:30 Room Air 03/27/23 07:44 36.9 C 80 16 177/63 H 95 Room Air Laboratory Results Laboratory Results - last 48 hr 03/25/23 03/25/23 03/26/23 17:50 20:21 02:36 WBC RBC Hgb Hct MCV MCH MCHC RDW Std Deviation RDW Coeff of Adrian Plt Count MPV Sodium Potassium Chloride Carbon Dioxide Anion Gap BUN Creatinine Est Cr Clr Drug Dosing Est GFR ( Amer) Est GFR (Non-Af Amer) BUN/Creatinine Ratio Glucose POC Glucose 164 H 184 H Calcium Phosphorus Magnesium Iron TIBC Unsaturated IBC Transferrin % Sat Ferritin Albumin Urine Color Yellow Urine Appearance Turbid A Urine pH 5.0 Ur Specific [place] 1.022 Urine Protein 4+ H Urine Glucose (UA) Trace H Urine Ketones Negative Urine Blood Negative Urine Nitrite Negative Urine Bilirubin Negative Urine Urobilinogen Negative Ur Leukocyte Esterase Negative Urine WBC (Auto) 10-30 H Urine RBC (Auto) 0-4 U Hyaline Cast (Auto) 1-5 U Epithel Cells (Auto) >30 H Urine Bacteria (Auto) Negative Ur Renal Epithelial Cell Not Reportable Granular Casts 1-5 H Urine Yeast Budding A Urine Sperm Present A Ur Random Creatinine Ur Random Sodium 03/26/23 03/26/23 03/26/23 03:15 08:03 08:13 WBC RBC Hgb Hct MCV MCH MCHC RDW Std Deviation RDW Coeff of Adrian Plt Count MPV Sodium 135 L Potassium 4.1 Chloride 104 Carbon Dioxide 21 Anion Gap 10 BUN 53 H Creatinine 5.11 H* D Est Cr Clr Drug Dosing 10.9 Est GFR ( Amer) 10.9 Est GFR (Non-Af Amer) 9.4 BUN/Creatinine Ratio 10.4 Glucose 121 H POC Glucose 133 H Calcium 7.8 L Phosphorus 6.3 H Magnesium 2.1 Iron 17 L TIBC 132 L Unsaturated IBC 115 L Transferrin % Sat 13 L Ferritin 190.8 Albumin 2.4 L Urine Color Urine Appearance Urine pH Ur Specific [place] Urine Protein Urine Glucose (UA) Urine Ketones Urine Blood Urine Nitrite Urine Bilirubin Urine Urobilinogen Ur Leukocyte Esterase Urine WBC (Auto) Urine RBC (Auto) U Hyaline Cast (Auto) U Epithel Cells (Auto) Urine Bacteria (Auto) Ur Renal Epithelial Cell Granular Casts Urine Yeast Urine Sperm Ur Random Creatinine 115.0 Ur Random Sodium 24 03/26/23 03/26/23 03/26/23 08:13 11:34 16:51 WBC 7.25 RBC 2.77 L Hgb 8.1 L Hct 24.8 L MCV 89.5 MCH 29.2 MCHC 32.7 RDW Std Deviation 46.6 H RDW Coeff of Adrian 14.4 Plt Count 194 MPV 9.7 Sodium Potassium Chloride Carbon Dioxide Anion Gap BUN Creatinine Est Cr Clr Drug Dosing Est GFR ( Amer) Est GFR (Non-Af Amer) BUN/Creatinine Ratio Glucose POC Glucose 179 H 140 H Calcium Phosphorus Magnesium Iron TIBC Unsaturated IBC Transferrin % Sat Ferritin Albumin Urine Color Urine Appearance Urine pH Ur Specific [place] Urine Protein Urine Glucose (UA) Urine Ketones Urine Blood Urine Nitrite Urine Bilirubin Urine Urobilinogen Ur Leukocyte Esterase Urine WBC (Auto) Urine RBC (Auto) U Hyaline Cast (Auto) U Epithel Cells (Auto) Urine Bacteria (Auto) Ur Renal Epithelial Cell Granular Casts Urine Yeast Urine Sperm Ur Random Creatinine Ur Random Sodium 03/26/23 03/27/23 03/27/23 21:06 07:21 07:22 WBC RBC Hgb Hct MCV MCH MCHC RDW Std Deviation RDW Coeff of Ardian Plt Count MPV Sodium 136 Potassium 4.1 Chloride 104 Carbon Dioxide 23 Anion Gap 9 BUN 56 H Creatinine 5.96 H* D Est Cr Clr Drug Dosing 9.3 Est GFR ( Amer) 9.0 Est GFR (Non-Af Amer) 7.8 BUN/Creatinine Ratio 9.4 L Glucose 120 H POC Glucose 179 H 114 H Calcium 7.9 L Phosphorus 6.6 H Magnesium 2.1 Iron TIBC Unsaturated IBC Transferrin % Sat Ferritin Albumin Urine Color Urine Appearance Urine pH Ur Specific [place] Urine Protein Urine Glucose (UA) Urine Ketones Urine Blood Urine Nitrite Urine Bilirubin Urine Urobilinogen Ur Leukocyte Esterase Urine WBC (Auto) Urine RBC (Auto) U Hyaline Cast (Auto) U Epithel Cells (Auto) Urine Bacteria (Auto) Ur Renal Epithelial Cell Granular Casts Urine Yeast Urine Sperm Ur Random Creatinine Ur Random Sodium 03/27/23 03/27/23 07:25 11:24 WBC 8.60 RBC 2.87 L Hgb 8.5 L Hct 25.2 L MCV 87.8 MCH 29.6 MCHC 33.7 RDW Std Deviation 46.8 H RDW Coeff of Adrian 14.6 H Plt Count 216 MPV 9.6 Sodium Potassium Chloride Carbon Dioxide Anion Gap BUN Creatinine Est Cr Clr Drug Dosing Est GFR ( Amer) Est GFR (Non-Af Amer) BUN/Creatinine Ratio Glucose POC Glucose 167 H Calcium Phosphorus Magnesium Iron TIBC Unsaturated IBC Transferrin % Sat Ferritin Albumin Urine Color Urine Appearance Urine pH Ur Specific [place] Urine Protein Urine Glucose (UA) Urine Ketones Urine Blood Urine Nitrite Urine Bilirubin Urine Urobilinogen Ur Leukocyte Esterase Urine WBC (Auto) Urine RBC (Auto) U Hyaline Cast (Auto) U Epithel Cells (Auto) Urine Bacteria (Auto) Ur Renal Epithelial Cell Granular Casts Urine Yeast Urine Sperm Ur Random Creatinine Ur Random Sodium Diagnostic Findings Microbiology 03/20/23 19:32 Blood Aerobic Blood Culture - Final Enterococcus faecalis 03/20/23 19:32 Blood Anaerobic Blood Culture - Final No growth in Anaerobic bottle after 5 days. 03/22/23 09:31 Blood Aerobic Blood Culture - Final No growth in Aerobic bottle after 5 days. 03/22/23 09:31 Blood Anaerobic Blood Culture - Final No growth in Anaerobic bottle after 5 days. 03/22/23 09:36 Blood Aerobic Blood Culture - Final No growth in Aerobic bottle after 5 days. 03/22/23 09:36 Blood Anaerobic Blood Culture - Final No growth in Anaerobic bottle after 5 days. 03/25/23 09:08 Blood Aerobic Blood Culture - Preliminary No growth in Aerobic bottle after 48 hours. 03/25/23 09:08 Blood Anaerobic Blood Culture - Preliminary No growth in Anaerobic bottle after 48 hours. 03/25/23 09:03 Blood Aerobic Blood Culture - Preliminary No growth in Aerobic bottle after 48 hours. 03/25/23 09:03 Blood Anaerobic Blood Culture - Preliminary No growth in Anaerobic bottle after 48 hours. 03/20/23 19:30 Blood Aerobic Blood Culture - Final No growth in Aerobic bottle after 5 days. 03/20/23 19:30 Blood Anaerobic Blood Culture - Final No growth in Anaerobic bottle after 5 days. 03/18/23 20:17 Blood Aerobic Blood Culture - Final Enterococcus faecalis 03/18/23 20:17 Blood Anaerobic Blood Culture - Final Enterococcus faecalis 03/18/23 20:17 Blood Aerobic Blood Culture - Final Enterococcus faecalis 03/18/23 20:17 Blood Anaerobic Blood Culture - Final Enterococcus faecalis Renal Ultrasound 03/25/23 12:35 RENAL ULTRASOUND HISTORY: Acute kidney injury JUDI COMPARISON: CT 03/18/2023 FINDINGS: Right kidney: 12.3 x 5.7 x 6.1 cm. No hydronephrosis. Diffuse cortical thinning. Left kidney: 12.9 x 6.4 x 5.5 cm. No hydronephrosis. Diffuse cortical thinning. 2.2 cm cyst of the inferior pole. Bladder: Wall thickening and trabeculation with partial distention. The bilateral ureteral jets were identified. Trace left pleural effusion. The spleen measures 13 cm. IMPRESSION: 1. Cortical thinning of the kidneys without hydronephrosis. 2. Unchanged urinary bladder wall thickening with reticulation. Correlate with urinalysis. ACT 112: Negative or not required by law. Electronically signed by: Pj Fernández M.D. 03/25/2023 5:55 PM Venous Doppler Study 03/25/23 15:39 BILATERAL LOWER EXTREMITY VENOUS DOPPLER HISTORY: Acute pain and swelling of the right lower extremity RLE Swelling COMPARISON STUDY: None. FINDINGS: There is normal compressibility, flow, and augmentation within the bilateral lower extremity deep venous systems. 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 Subcutaneous edema. IMPRESSION: No acute DVT within the right or left lower extremity. ACT 112: Negative or not required by law. Electronically signed by: Pj Fernández M.D. 03/25/2023 5:49 PM Medications Administered Home Medications Medication Instructions Recorded Confirmed Last Taken albuterol sulfate 90 mcg/actuation 2 puffs inhalation Q6H PRN 01/10/19 03/19/23 03/16/20 04:00 aerosol inhaler shortness of breath or wheezing levothyroxine 88 mcg tablet 75 mcg PO DAILYBB #90 tabs 01/10/19 03/19/23 12/29/22 potassium chloride 20 mEq 20 meq PO BID 01/10/19 03/19/23 12/29/22 08:00 tablet,extended release finasteride 5 mg tablet 5 mg PO HS 04/23/19 03/19/23 12/28/22 gabapentin 100 mg capsule See Rx Instructions .Route .COMPLEX 12/16/20 03/19/23 12/29/22 08:00 aspirin 81 mg tablet,delayed 81 mg PO DAILY 10/11/21 03/19/23 12/29/22 release pantoprazole 20 mg tablet,delayed 20 mg PO BID 02/07/22 03/19/23 12/29/22 08:00 release acetaminophen 500 mg tablet 1,000 mg PO Q6H PRN PAIN/FEVER 05/28/22 03/19/23 Unknown (Tylenol Extra Strength) clonazepam 1 mg tablet 1 mg PO BID 05/28/22 03/19/23 12/29/22 08:00 fluticasone 500 mcg-salmeterol 50 1 inh inhalation BID 05/28/22 03/19/23 12/29/22 08:00 mcg/dose blistr powdr for inhalation metoprolol tartrate 50 mg tablet 25 mg PO BID 05/28/22 03/19/23 12/29/22 08:00 multivitamin with minerals 1 tab PO DAILY 05/28/22 03/19/23 12/29/22 rosuvastatin 20 mg tablet 20 mg PO HS 05/28/22 03/19/23 12/28/22 tiotropium bromide 2.5 2 puff inhalation DAILY 05/28/22 03/19/23 12/29/22 mcg/actuation mist for inhalation vitamins A,C,U-hrcx-hsggiw 2,148 1 tab PO DAILY 05/28/22 03/19/23 12/29/22 mcg-113 mg-45 mg-17.4 mg tablet (PreserVision AREDS) apixaban 5 mg tablet (Eliquis) 2.5 mg PO Q12H 12/29/22 03/19/23 12/29/22 08:00 calcium citrate 315 mg-vitamin D3 2 tab PO DAILY 12/29/22 03/19/23 12/29/22 5 mcg (200 unit) tablet (Calcium Citrate + D) loratadine 10 mg tablet (Claritin) 10 mg PO DAILY PRN Congestion 12/29/22 03/19/23 Unknown tamsulosin 0.4 mg capsule (Flomax) 0.8 mg PO HS 12/29/22 03/19/23 12/28/22 insulin aspart U-100 100 unit/mL 14 unit subcut TIDWMEAL 03/19/23 03/19/23 U nknown subcutaneous solution (Novolog U-100 Insulin aspart) insulin glargine 100 unit/mL (3 26 unit subcut BID 03/19/23 03/19/23 Unknown mL) subcutaneous pen (Lantus Solostar U-100 Insulin) Active Medications Generic Name Dose Route Start Last Admin Trade Name Freq PRN Reason Stop Dose Admin Acetaminophen 650 mg 03/19/23 01:59 03/24/23 20:06 Acetaminophen 325 Mg Tab PO 04/18/23 01:58 650 mg Q4H PRN Administration Pain or Fever Apixaban 2.5 mg 03/22/23 21:00 03/27/23 08:57 Apixaban 2.5 Mg Tab PO 04/21/23 20:59 2.5 mg BID VANDANA Administration Aspirin 81 mg 03/19/23 09:00 03/27/23 08:57 Aspirin 81 Mg Ectab PO 04/18/23 08:59 81 mg DAILY VANDANA Administration Clonazepam 1 mg 03/19/23 09:00 03/27/23 09:06 Clonazepam 1 Mg Tab PO 04/18/23 08:59 1 mg BID VANDANA Administration Ferrous Sulfate 325 mg 03/27/23 09:00 03/27/23 08:56 Ferrous Sulfate 325 Mg Tab PO 04/26/23 08:59 325 mg QAM VANDNAA Administration Finasteride 5 mg 03/19/23 21:00 03/26/23 19:28 Finasteride 5 Mg Tab PO 04/18/23 20:59 5 mg HS VANDANA Administration Fluticasone/Vilanterol 1 puffs 03/19/23 09:00 03/27/23 08:56 Fluticasone/Vilanterol 100/25mcg 14 Puffs/Inhaler INH 04/18/23 08:59 1 puffs DAILY VANDANA Administration Gabapentin 100 mg 03/19/23 09:00 03/27/23 08:57 Gabapentin 100 Mg Cap PO 04/18/23 08:59 100 mg QAM VANDANA Administration Gabapentin 300 mg 03/19/23 21:00 03/26/23 19:28 Gabapentin 300 Mg Cap PO 04/18/23 20:59 300 mg HS VANDANA Administration Lactated Ringer's 1,000 mls @ 125 mls/hr 03/25/23 08:45 03/27/23 10:41 Lr IV 04/24/23 08:44 125 mls/hr .Q8H VANDANA Administration Iron Sucrose 200 mg/ Sodium 110 mls @ 220 mls/hr 03/26/23 11:00 03/27/23 10:14 Chloride IV 03/30/23 09:29 Infused DAILY VANDANA Infusion Ampicillin Sodium 2,000 mg/ 100 mls @ 200 mls/hr 03/27/23 02:00 03/27/23 02:27 Sodium Chloride IV 04/02/23 13:59 Infused Q12H VANDANA Infusion Insulin Aspart 0 units 03/19/23 07:30 03/27/23 12:22 Insulin Aspart Per Unit Charge SC 04/18/23 07:29 3 units ACHS VANDANA Administration Insulin Glargine 20 units 03/25/23 09:00 03/27/23 09:07 Lantus Per Unit Charge SQ 04/24/23 08:59 20 units QAM VANDANA Administration Levothyroxine Sodium 88 mcg 03/19/23 06:30 03/27/23 05:04 Levothyroxine Sodium 88 Mcg Tablet PO 04/18/23 06:29 88 mcg DAILYBB VANDANA Administration Metoprolol Tartrate 25 mg 03/19/23 09:00 03/27/23 08:57 Metoprolol Tartrate 25 Mg Tab PO 04/18/23 08:59 25 mg BID VANDANA Administration Miscellaneous 15 - 30 gm 03/19/23 01:59 03/20/23 07:33 Carbohydrates For Hypoglycemia PO 04/18/23 01:58 15 gm UD PRN Administration Hypoglycemia Protocol Pantoprazole Sodium 40 mg 03/19/23 09:00 03/27/23 08:57 Pantoprazole 40 Mg Tab PO 04/18/23 08:59 40 mg BID VANDANA Administration Rosuvastatin Calcium 10 mg 03/25/23 21:00 03/26/23 19:28 Rosuvastatin Calcium 10 Mg Tab PO 04/24/23 20:59 10 mg HS VANDANA Administration Tamsulosin HCl 0.8 mg 03/19/23 21:00 03/26/23 19:28 Tamsulosin Hcl 0.4 Mg Cap PO 04/18/23 20:59 0.8 mg HS VANDANA Administration Umeclidinium Tiff 1 puffs 03/19/23 09:00 03/27/23 08:56 Umeclidinium Tiff 62.5mcg/Blister 7 Puffs/Inhaler INH 04/18/23 08:59 1 puffs DAILY VANDANA Administration
--- NOTE | 2023-03-27 19:45 | XRay Report ---
XR foot RT 2V CLINICAL HISTORY: R 2nd digit pain TECHNIQUE: 3 views of the right foot were obtained. Comparison: Comparison is made to right foot radiographs 12/05/2021 and MRI right foot 12/15/2021 FINDINGS: Demineralization is seen at the second digit proximal interphalangeal joint. No focal erosion is defi nitely seen within the limitations of technique. No fracture is seen. Degenerative changes are seen t hroughout the foot. Soft tissue swelling is seen about the foot. Vascular calcifications are seen. IMPRESSION: Degenerative changes are seen with focal demineralization at the second digit proximal interphalangea l joint. If there is concern for osteomyelitis, MRI can be performed as a more sensitive modality. Th ere is no radiographic evidence of acute fracture. ACT 112: Negative or not required by law. Electronically signed by: Dano West M.D. 03/27/2023 7:44 PM
[2023-03-27] MEDS: GABAPENTIN 300 MG CAP PO SCH (20:56)
[2023-03-27] MEDS: ROSUVASTATIN CALCIUM 10 MG TAB PO SCH (20:57)
[2023-03-27] MEDS: TAMSULOSIN HCL 0.4 MG CAP PO SCH (20:57)
[2023-03-27] MEDS: FINASTERIDE 5 MG TAB PO SCH (20:57)
[2023-03-28] MEDS: AMPICILLIN 2,000 MG in SODIUM CHLOR 0.9% MINI-B 100 ML IV SCH ×2 (02:04→12:55)
[2023-03-28] MEDS: LACTATED RINGER'S 1,000 ML IV SCH ×2 (02:04→09:33)
[2023-03-28] MEDS: LEVOTHYROXINE SODIUM 88 MCG TABLET PO SCH (05:37)
--- NOTE | 2023-03-28 07:06 | Hospitalist Progress Note ---
Date of Service March 28, 2023 Assessment & Plan (1) Hypotension: (2) Elevated troponin I level: (3) Recurrent bacteremia: (4) Anxiety: (5) Anemia of chronic disease: (6) Chronic kidney disease, stage 4 (severe): (7) Acute kidney injury superimposed on CKD: (8) Moderate calcific aortic stenosis: (9) Peripheral vascular disease: (10) Lower extremity edema: (11) Benign prostatic hyperplasia with urinary obstruction: (12) COPD (chronic obstructive pulmonary disease): (13) Hypothyroidism: (14) Hypertension: (15) Dyslipidemia: (16) Paroxysmal atrial fibrillation: (17) Vitamin D deficiency: (18) CAD (coronary artery disease): (19) GERD (gastroesophageal reflux disease): (20) CHF (congestive heart failure): (21) Diabetes: Plan 87 yo male with PMHx of CKD Stage 4 (previous admission with JUDI requiring temporary dialysis), DVT, DM2 insulin dependent, HTN, hypothyroidism, afib, CAD, BPH, GERD, recurrent bacteremia, aortic stenosis, anxiety, and CHF who presents with unwitnessed fall with concomitant bowel/bladder incontinence and associated hypotension. Had a discussion with patient today about his wishes. He states he would like for his to be present for any palliative care or hospice discussions. He states that he feels he really would just like to pass peacefully at home, but would like to discuss this further with his present with us. We will keep an eye out for her presence to have the discussion as a group as requested. 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 Follows with nephro outpatient - Elevation in creatinine prerenal, likely secondary to dehydration vs ampicillin use - Continue to hold home Bumex -Monitor I/Os -LR 125 ml/hr to maintain positive fluid balance - pt does not want dialysis at this time, will continue to hydrate - LE edema causing discomfort, started him on oxycodone 2.5 mg prn for discomfort #Elevated troponin - Trop 72 on admission, repeat Trop 63 - EKG without ischemic changes, suspect due to demand #Hypotension (resolved) - Likely from infection - BP 74/44 in ED, improved with IV fluids - Currently hemodynamically stable #Chronic HFpEF #Aortic stenosis #Peripheral edema #CAD/PVD/HLD #Afib -Continue to hold home Bumex -cont. metoprolol; eliquis -cont. statin -cont. ASA, statin #DM2 -Lantus + SSI #Diabetic neuropathy -cont. gabapentin #COPD -cont. home inhalers #Anxiety -cont. clonazepam #BPH -cont. finasteride, tamsulosin DVT ppx: Eliquis FEN/GI: DM2 Admission and Anticipated Discharge Date Admission Date: March 19, 2023 Supervising Physician Co-Signing Physician Notes Attending attestation Pt seen and examined in concert with Dr. Carias. In agreement with the documented findings as noted in the resident documentation with any exceptions or additions as noted here. Resting in bed without acute complaint beyond fatigue at present. Patient would like to have conversation re: goals of care when spouse at bedside. On examination, S1/S2 nl RRR no MCG. CTAB. Abd NT/ND BS+ve JUDI on CKD IV - nephrology consult - d/c IVF today, trend CMP. Patient declines HD. Goals of care pending spouse availability w/ palliative c/s E. faecalis bacteremia - PICC line in place. Will need 2-3 months of ampicillin therapy for full treatment Else see resident documentation as noted. Subjective 87 yo male with PMHx of CKD Stage 4 (previous admission with JUDI requiring temporary dialysis), DVT, DM2 insulin dependent, HTN, hypothyroidism, afib, CAD, BPH, GERD, recurrent bacteremia, aortic stenosis, anxiety, and CHF who presents with fall. Today, pt states he is feeling alright. He states his feet are still sore and he states today that he would rather at this point go home so he can pass away peacefully at this time. He states that while he appreciates the care he has received, after 3 rounds of dialysis in the past he no longer wishes to take that route and understands that at some point he may need dialysis again and refusal of it would mean a decline in his condition. He states that he has talked about this with his before and pretty extensively but would like for us to wait until she is around so we can talk as a group about where to go from here. He states that he only wants palliative care to see him if his is okay with it. Otherwise, today he is overall feeling well. No thoughts of wanting to hurt himself, just simply feels he is getting close to his time. Review of Systems Review of Systems: Per HPI. Physical Exam Physical Exam: General:Alert, quiet, no acute distress, HEENT: Normocephalic, moist oral mucosa, Cardio: Regular rate and rhythm, Resp:Lungs clear to auscultation b/l, Skin: Warm, pink, dry, Psych: Mood-affect congruence. Results & Data Results & Data Vital Signs (Past 12 Hours) Vital Signs Temp Pulse Resp BP Pulse Ox O2 Del Method 03/27/23 22:19 Room Air 03/27/23 20:10 36.5 C 61 18 172/64 H 97 Room Air Resident Activity Tracking Resident Involvement: Resident Care Provided Care Provided: Adult Hospital Medicine (12) COPD (chronic obstructive pulmonary disease) COPD type: unspecified COPD Qualified Code(s): J44.9 - Chronic obstructive pulmonary disease, unspecified (13) Hypothyroidism Hypothyroidism type: unspecified Qualified Code(s): E03.9 - Hypothyroidism, unspecified (14) Hypertension Hypertension type: essential hypertension Qualified Code(s): I10 - Essential (primary) hypertension (18) CAD (coronary artery disease) Associated angina: without angina Coronary Disease-Associated Artery/Lesion type: [place] artery [place] vs. transplanted heart: [place] heart Qualified Code(s): I25.10 - Atherosclerotic heart disease of [place] coronary artery without angina pectoris (19) GERD (gastroesophageal reflux disease) Esophagitis presence: esophagitis presence not specified Qualified Code(s): K21.9 - Gastro-esophageal reflux disease without esophagitis (20) CHF (congestive heart failure) Heart failure chronicity: unspecified Heart failure type: unspecified Qualified Code(s): I50.9 - Heart failure, unspecified (21) Diabetes Diabetes mellitus complication status: with hyperglycemia Diabetes mellitus director operating room insulin use: with long-term use Diabetes mellitus type: type 2 Qualified Code(s): E11.65 - Type 2 diabetes mellitus with hyperglycemia; Z79.4 - assisted (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
[2023-03-28 08:15] LABS: Hematocrit (blood only) 25.5 % (42.0-52.0); Hemoglobin 8.5 g/dl (14.0-18.0); Mean Corpuscular Hemoglobin 29.8 pg (25.0-34.0); Mean Corpuscular Hgb Conc 33.3 g/dL (32.0-36.0); Mean Corpuscular Volume 89.5 fL (80.0-100.0); Mean Platelet Volume 9.4 fL (9.4-12.4); Platelet Count 236 K/uL (130-400); RDW Coefficient of Variation 14.5 % (11.5-14.5); RDW Standard Deviation 48.1 fL (36.4-46.3); Red Blood Count 2.85 M/uL (4.70-6.10); White Blood Count 7.83 K/ul (4.8-10.8)
[2023-03-28 08:48] LABS: Albumin Level 2.4 gm/dl (3.4-5.0); BUN Creatinine Ratio 9.4 (10-20); Calcium 8.1 mg/dl (8.6-10.3); Creatinine Clr Calc Pharmacy 9.7 ml/min; Est GFR (African American) 9.5 ml/min; Est GFR (Non-African American) 8.2 ml/min; Phosphorus 6.2 mg/dl (2.5-4.9); Potassium 3.8 mmol/L (3.5-5.1)
[2023-03-28] MEDS: INSULIN ASPART PER UNIT CHARGE SC SCH ×4 (09:22→20:50)
[2023-03-28] MEDS: METOPROLOL TARTRATE 25 MG TAB PO SCH ×2 (09:22→20:48)
[2023-03-28] MEDS: LANTUS PER UNIT CHARGE SQ SCH (09:22)
[2023-03-28] MEDS: PANTOprazole 40 MG TAB PO SCH ×2 (09:22→20:49)
[2023-03-28] MEDS: clonazePAM 1 MG TAB PO SCH ×2 (09:22→20:48)
[2023-03-28] MEDS: APIXABAN 2.5 MG TAB PO SCH ×2 (09:23→20:49)
[2023-03-28] MEDS: FLUTICASONE/VILANTEROL 100/25MCG 14 PUFFS/INHALER INH SCH (09:23)
[2023-03-28] MEDS: GABAPENTIN 100 MG CAP PO SCH (09:23)
[2023-03-28] MEDS: ASPIRIN 81 MG ECTAB PO SCH (09:23)
--- NOTE | 2023-03-28 10:09 | Nephrology Progress Note ---
Date of Service March 28, 2023 Assessment & Plan (1) Acute kidney injury superimposed on CKD: Plan: Non-oliguric. Creatinine stable to slightly improved. Electrolytes acceptable. Volume status reasonable. Signs of increased fluid retention noted. Appetite improving. There is no emergent indication for dialysis. Chang has indicated that he would refuse dialysis and transition to palliative care if kidney function does not recover. Thankfully, early signs of kidney function recovery noted. Clinical presentation suggestive of hemodynamic changes with prerenal JUDI and superimposed ATN. I cannot exclude AIN. Hold IVF. Document strict I/O's. Repeat metabolic profile tomorrow AM. C3/C4 pending. Medications are currently appropriately dosed for kidney function. (2) Chronic kidney disease, stage 4 (severe): Plan: Baseline creatinine 1.6-2.0 mg/dL. CKD III-IV A3. Kidney dysfunction advanced due to calcific vascular disease and multiple episodes of JUDI. Prognosis for recovery is unfortunately guarded. Chang has indicated that he would refuse HD if indicated. (3) Recurrent bacteremia: Plan: GLO negative for vegetation. C3/C4 pending. No microscopic hematuria or RBC casts to suggest GN. Remains on ampicillin per ID recs. Hardware in lower jaw and back to be considered as sources of potential recurrent bacteremia. (4) Anemia of chronic disease: Plan: H/H stable. No reported symptoms. Completed Venofer 200 mg IV x 2 doses. Epogen 42420 units provided 03/27. Repeat H/H tomorrow. Admission and Anticipated Discharge Date Admission Date: March 19, 2023 Subjective No acute events overnight. No fevers or chills. Chang was seen and evaluated with his at the bedside. He was slightly more confused this AM. BP elevated. Edema increasing. Some increased lower extremity discomfort reported. Denies significant joint pain. R second toe remains tender. No shortness of breath reported. Good urine output. Chang's related this AM that there is hardware in the lower jaw in addition to hardware in the lower back to be potentially considered as source of recurrent bacteremia. Review of Systems Review of Systems: All systems reviewed & are unremarkable except as noted in HPI & below Physical Exam Constitutional: well developed; no acute distress Eyes: + anicteric sclerae; no corneal abnormality ENMT: Mouth: + dry oral mucous membranes; no oral mucosal abnormality Neck: normal visual inspection, trachea midline and + thick neck Respiratory: normal respiratory effort Auscultation: lungs clear to auscultation bilaterally and + rales (increasing basilar) Cardiovascular: Rate/Rhythm: regular rate Heart Sounds: normal S1, normal S2 and + murmur Extremities: + edema Musculoskeletal: Extremities: no cyanosis and no clubbing Skin: normal turgor; no jaundice Neurologic: Motor/Sensory: no tremor and no asterixis Psychiatric: Orientation: alert and cooperative Results & Data Vital Signs (Past 12 Hours) Vital Signs Temp Pulse Resp BP Pulse Ox O2 Del Method 03/28/23 08:16 36.6 C 79 16 170/70 H 96 Room Air 03/28/23 07:51 Room Air 03/27/23 22:19 Room Air Laboratory Results Laboratory Results - last 24 hr 03/27/23 03/27/23 03/27/23 11:24 16:32 19:35 WBC RBC Hgb Hct MCV MCH MCHC RDW Std Deviation RDW Coeff of Adrian Plt Count MPV Sodium Potassium Chloride Carbon Dioxide Anion Gap BUN Creatinine Est Cr Clr Drug Dosing Est GFR ( Amer) Est GFR (Non-Af Amer) BUN/Creatinine Ratio Glucose POC Glucose 167 H 157 H 188 H Calcium Phosphorus Albumin 03/28/23 03/28/23 03/28/23 07:30 07:53 07:53 WBC 7.83 RBC 2.85 L Hgb 8.5 L Hct 25.5 L MCV 89.5 MCH 29.8 MCHC 33.3 RDW Std Deviation 48.1 H RDW Coeff of Adrian 14.5 Plt Count 236 MPV 9.4 Sodium 138 Potassium 3.8 Chloride 105 Carbon Dioxide 23 Anion Gap 10 BUN 54 H Creatinine 5.72 H* Est Cr Clr Drug Dosing 9.7 Est GFR ( Amer) 9.5 Est GFR (Non-Af Amer) 8.2 BUN/Creatinine Ratio 9.4 L Glucose 138 H POC Glucose 160 H Calcium 8.1 L Phosphorus 6.2 H Albumin 2.4 L PG Care Time/CCT Total # of Minutes Spent Total Time Spent with Patient: Total time spent is greater than 50% in coordination of care (as documented) at patient's floor/unit and/or counseling patient: Coding Level of Care Code 44615 SUB INP/OBS CARE 3/50MIN Diagnoses Acute kidney injury superimposed on CKD N17.9; N18.9 Chronic kidney disease, stage 4 (severe) N18.4 Recurrent bacteremia R78.81 Anemia of chronic disease D63.8
[2023-03-28] MEDS: oxyCODONE HCL IR 5 MG TAB (IMMEDIATE RELEASE) PO PRN (11:08)
--- NOTE | 2023-03-28 11:30 | Palliative Care Consultation ---
Date of Consultation March 28, 2023 Assessment & Plan (1) Generalized pain: Currently on Oxy IR 2.5mg which he tells me does not give any relief Suggest trial of Oxy IR 5mg PO q3h prn pain (2) Palliative care by specialist: Met with pt/no family present. Provided overview of Palliative Medicine, a subspecialty that provides specialized medical care for people living with a serious illness by offering a focus on quality of life. Palliative Medicine is often conflated with hospice: I advised patient/family that Palliative and hospice can be partners but we are not the same. It is important to understand the difference so that we may be informed, and not afraid. Palliative Medicine works to improve QOL through reduction of symptom burden/more control over their illness, for both the patient and family. Palliative medicine clinicians are board certified, specially-trained and another member of the patient's medical care team. We often provide an extra layer of support because our care is based on the needs of the patient, not the prognosis; as such, it's appropriate at any age/advancing stage of a serious illness and can be provided along with curative treatment. Palliative Medicine clinicians are also trained in advanced communication methodologies, to facilitate complex discussions about advanced illness planning, which are needed to help assure that the treatment choices match the patient's goals, aka delivering Goal Concordant care. Finally, we discussed that hospice is a visiting nurse service that focuses on care delivered at the very end of life for patients with terminal illness, with life expectancy less than 6 month. (3) Advanced care planning/counseling discussion: Face to face with pt x 35min He states he has known of kidney issues for "a while" and had decided some time ago he does not want HD, supports this decision. He feels he has a reasonable QOL but does not want to burden his He has some antiquated views on provider groups, tells me he is "ok with the fact you're not white, I've had a lot fo black and Citizen [place] providers and about 40 years ago I once helped an man." He notes he defers major decisions to . He would be open to hospice if feels it would help her but is not feeling he needs it right now. (4) Chronic kidney disease, stage 4 (severe): (5) Peripheral vascular disease: (6) Lower extremity edema: Plan * ACP discussion as noted above * Not seeking hospice for now but notes he would be receptive to anything wants to make her life easier, he does not want to be burden to her and he wants to try and stay home if possible. * Reaffirms no HD desired * Pain mgt suggestions above Thank you for allowing us to participate in the ongoing care of this patient. Please don't hesitate to call or page with any additional concerns. Dr. Zoila Espinoza DNP Director, Palliative Care History of Present Illness Reason for Consultation: "Pt declines dialysis, wants to at home" Attending Physician: Travis Bennett MD History of Present Illness Admitted 03/18/23. 87 yo male with PMHx of CKD Stage 4 (previous admission with JUDI requiring temporary dialysis), DVT, DM2 insulin dependent, HTN, hypothyroidism, afib, CAD, BPH, GERD, recurrent bacteremia, aortic stenosis, anxiety, and CHF who presents with anunwitnessed fall with concomitant bowel/bladder incontinence and associated hypotension. Found to have bacteremia: h/o E faecalis bacteremia in past but current UA negative. His blood cx positive for gram positive cocci in chains and +PCR Enterococcus Faecalis positive (VRE not detected). therefore, ID consulted and there is a concern for endocarditis - consider GLO based on recommendations - he remains on IV ampicillin He has JUDI on CKD stage 4 with creatinine 2.9 --> 2.6 --> 2.16, baseline ~2. Follows with nephro. During this admission he reaffirmed desire for no HD however renal recovery is slowly being noted he is seen bedside, no family present he is AAOx3 but sometimes tangential and off topic no family is present but he tells me he likes his to be in charge of all decisions Allergies Allergy/AdvReac Type Severity Reaction Status Date / Time Cephalosporins Allergy Unknown Verified 03/19/23 00:43 ciprofloxacin [From Cipro] AdvReac Severe Unknown Verified 03/19/23 00:43 semaglutide [From Ozempic] AdvReac Severe NAUSEA/VOMI Verified 03/19/23 00:43 TING/ANOREX IA amlodipine AdvReac Intermediate SWELLING Verified 03/19/23 00:43 OF ANKLES ropinirole AdvReac Intermediate CHANGE IN Verified 03/19/23 00:43 MENTAL STATUS silver [From SilvaSorb] AdvReac (silver Verified 03/19/23 02:04 dressings) redness of skin Home Medications Medication Instructions Recorded Confirmed Type albuterol sulfate 90 mcg/actuation 2 puffs inhalation Q6H PRN 01/10/19 03/19/23 History aerosol inhaler shortness of breath or wheezing levothyroxine 88 mcg tablet 75 mcg PO DAILYBB #90 tabs 01/10/19 03/19/23 History potassium chloride 20 mEq 20 meq PO BID 01/10/19 03/19/23 History tablet,extended release finasteride 5 mg tablet 5 mg PO HS 04/23/19 03/19/23 History gabapentin 100 mg capsule See Rx Instructions .Route .COMPLEX 12/16/20 03/19/23 History aspirin 81 mg tablet,delayed 81 mg PO DAILY 10/11/21 03/19/23 History release pantoprazole 20 mg tablet,delayed 20 mg PO BID 02/07/22 03/19/23 History release acetaminophen 500 mg tablet 1,000 mg PO Q6H PRN PAIN/FEVER 05/28/22 03/19/23 History (Tylenol Extra Strength) clonazepam 1 mg tablet 1 mg PO BID 05/28/22 03/19/23 History fluticasone 500 mcg-salmeterol 50 1 inh inhalation BID 05/28/22 03/19/23 History mcg/dose blistr powdr for inhalation metoprolol tartrate 50 mg tablet 25 mg PO BID 05/28/22 03/19/23 History multivitamin with minerals 1 tab PO DAILY 05/28/22 03/19/23 History rosuvastatin 20 mg tablet 20 mg PO HS 05/28/22 03/19/23 History tiotropium bromide 2.5 2 puff inhalation DAILY 05/28/22 03/19/23 History mcg/actuation mist for inhalation vitamins A,C,N-dnjx-vxbgbd 2,148 1 tab PO DAILY 05/28/22 03/19/23 History mcg-113 mg-45 mg-17.4 mg tablet (PreserVision AREDS) apixaban 5 mg tablet (Eliquis) 2.5 mg PO Q12H 12/29/22 03/19/23 History calcium citrate 315 mg-vitamin D3 2 tab PO DAILY 12/29/22 03/19/23 History 5 mcg (200 unit) tablet (Calcium Citrate + D) loratadine 10 mg tablet (Claritin) 10 mg PO DAILY PRN Congestion 12/29/22 03/19/23 History tamsulosin 0.4 mg capsule (Flomax) 0.8 mg PO HS 12/29/22 03/19/23 History insulin aspart U-100 100 unit/mL 14 unit subcut TIDWMEAL 03/19/23 03/19/23 History subcutaneous solution (Novolog U-100 Insulin aspart) insulin glargine 100 unit/mL (3 26 unit subcut BID 03/19/23 03/19/23 History mL) subcutaneous pen (Lantus Solostar U-100 Insulin) Patient History Medical History (Updated 03/28/23 @ 14:41 by Zoila Espinoza DNP) Abdominal distension Acidosis Acute hyperkalemia Acute hyponatremia Acute kidney injury Acute pyelonephritis Acute renal failure Acute UTI (urinary tract infection) Acute UTI (urinary tract infection) [id number] kidney injury JUDI (acute kidney injury) AMS (altered mental status) AMS (altered mental status) Anemia of chronic disease Anemia of chronic disease Anxiety Aortic stenosis Mild per 03/06/19 stress ECHO Asthma Uses rescue inhaler a couple times per week Atrial fibrillation Follows with Dr. Gr Bacteremia Blindness of left eye Bradycardia CAD (coronary artery disease) Angioplasty ~1993, CABG x 3 2013 (GALINDO to LAD, SVG to PDA, SVG to OM) Cellulitis CHF (congestive heart failure) Chronic kidney disease Follows with Dr. Dixon Chronic obstructive pulmonary disease Diabetes Type 2 IDDM Diabetic infection of right foot DVT (deep venous thrombosis) Fluid overload Foot ulcer GERD (gastroesophageal reflux disease) Headache Herpes zoster Hiatal hernia History of deep venous thrombosis (DVT) of distal vein of left lower extremity Hyperkalemia Hyperlipidemia Hyperosmolar hyperglycemic state (HHS) Hypertension Hypoglycemia Hypoglycemia due to insulin Hypothyroidism Leg wound, left Leukocytosis Macular degeneration Mild aortic stenosis Moderate aortic stenosis Myocardial infarct ~1993 Non-ST elevation HI (NSTEMI) Peripheral neuropathy Peripheral vascular disease Pneumonia Respiratory failure Rupture of left distal biceps tendon hx - no surgery Secondary hyperparathyroidism (of renal origin) Sepsis Sepsis Thrombocytopenia UTI (urinary tract infection) UTI (urinary tract infection) Wound of lower extremity Surgical History (Updated 03/24/23 @ 07:19 by Jese Gaitan MD) Fusion of spine lumbar History of appendectomy History of cardiac cath with angioplasty ~1993 ([facility]) & 2014 ([facility]) History of cataract surgery bilateral History of coronary artery bypass graft x3 vessels ([facility] 2013) with epicardial RFA of pulmonary veins and left atrial appendage ligation History of revision of total replacement of right knee joint History of tonsillectomy History of tooth extraction History of total left knee replacement History of total right knee replacement Hx of colonoscopy Previous back surgery (08/26/12) S/P cholecystectomy Status post bilateral knee replacements Family History Brother Heart disease Diabetes Sister Cancer Mother Diabetes Father Diabetes Other Hypertension Kidney disease Social History Smoking Status: Never smoker Tobacco Type: Cigarettes Second Hand Exposure: No; Do You Dip or Chew Tobacco: No; Hx Alcohol Use: No Hx Substance Use: No Preferred Language: Tajik Communication Ability: Effective Visual Impairment: Partially Limited Wet Cotton Feeder Required: No Beliefs That Will Affect Care: None marital status: Current Living Situation: Spouse Current Living Situation Comment: lives at home with current occupational status: retired Feels Safe at Home: Yes Assistive Devices: Bedside Commode, Scooter/Electric Scooter, Walker and Wheelchair Review of Systems Review of Systems: All systems reviewed & are unremarkable except as noted in Subjective Physical Exam Constitutional: + physical limitations, cooperative and comfortable Eyes: PERRL, conjunctivae normal, anicteric sclerae ENMT: dentition fair, mucosa sl dry. no obvious thrush Neck: trachea midline, no thyromegaly Respiratory: normal respiratory effort, lungs clear to auscultation Cardiovascular: RRR, no murmur, no edema Gastrointestinal (Abdomen): normal bowel sounds, soft, nontender, no hepatosplenomegaly Musculoskeletal: gen weakness; BLE edema +2 Skin: + turgor decreased, + dry skin and + male pattern alopecia Neurologic: AAOx3 Results & Data Vital Signs (Past 12 Hours) Vital Signs Temp Pulse Resp BP Pulse Ox O2 Del Method 03/28/23 08:16 36.6 C 79 16 170/70 H 96 Room Air 03/28/23 07:51 Room Air Laboratory Results data reviewed Diagnostic Findings data reviewed PG Care Time/CCT Total # of Minutes Spent Total Time Spent: 95 Total Time Spent with Patient: Total time spent is greater than 50% in coordination of care (as documented) at patient's floor/unit and/or counseling patient: I spent 95 minutes overall addressing this case: 15 in medical data review/discussion with referring provider(s) and/or preparation for the visit 25 n direct interaction with the patient 35 Advance Care Planning/Goals of Care discussions as detailed above in note (must be >16min) 10 in subsequent review and synthesis of assessment and plan 10 in communicating with other providers regarding the patient's case: primary team Advanced Care Planning 67627 Advanced Care Planning 30 [place] [address] IN/OBS CONSULT LVL 5,80M Patient Type New History Comprehensive Exam Comprehensive Medical Decision Making High Complexity Diagnoses Generalized pain R52 Palliative care by specialist Z51.5 Advanced care planning/counseling discussion Z71.89 Chronic kidney disease, stage 4 (severe) N18.4 Peripheral vascular disease I73.9 Lower extremity edema R60.0 Additional Codes Advanced Care Planning - 76358 Advanced Care Planning 30 Min: 08540 Advanced Care Planning 30 Min ([id number])
[2023-03-28] MEDS: UMECLIDINIUM BROMIDE 62.5MCG/BLISTER 7 PUFFS/INHALER INH SCH (12:53)
[2023-03-28] MEDS: ROSUVASTATIN CALCIUM 10 MG TAB PO SCH (20:49)
[2023-03-28] MEDS: GABAPENTIN 300 MG CAP PO SCH (20:49)
[2023-03-28] MEDS: TAMSULOSIN HCL 0.4 MG CAP PO SCH (20:49)
[2023-03-28] MEDS: FINASTERIDE 5 MG TAB PO SCH (20:49)
[2023-03-29] MEDS: AMPICILLIN 2,000 MG in SODIUM CHLOR 0.9% MINI-B 100 ML IV SCH ×2 (01:25→13:34)
[2023-03-29] MEDS: ACETAMINOPHEN 325 MG TAB PO PRN (01:27)
[2023-03-29] MEDS: LEVOTHYROXINE SODIUM 88 MCG TABLET PO SCH (05:39)
--- NOTE | 2023-03-29 07:32 | Hospitalist Progress Note ---
Date of Service March 29, 2023 Assessment & Plan (1) Hypotension: (2) Elevated troponin I level: (3) Recurrent bacteremia: (4) Anxiety: (5) Anemia of chronic disease: (6) Chronic kidney disease, stage 4 (severe): (7) Acute kidney injury superimposed on CKD: (8) Moderate calcific aortic stenosis: (9) Peripheral vascular disease: (10) Lower extremity edema: (11) Benign prostatic hyperplasia with urinary obstruction: (12) COPD (chronic obstructive pulmonary disease): (13) Hypothyroidism: (14) Hypertension: (15) Dyslipidemia: (16) Paroxysmal atrial fibrillation: (17) Vitamin D deficiency: (18) CAD (coronary artery disease): (19) GERD (gastroesophageal reflux disease): (20) CHF (congestive heart failure): (21) Diabetes: Plan 87 yo male with PMHx of CKD Stage 4 (previous admission with JUDI requiring temporary dialysis), DVT, DM2 insulin dependent, HTN, hypothyroidism, afib, CAD, BPH, GERD, recurrent bacteremia, aortic stenosis, anxiety, and CHF who presents with unwitnessed fall with concomitant bowel/bladder incontinence and associated hypotension. Conversation today as noted above. Case management made aware of situation for further coordination of care, as well of palliative. 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 Follows with nephro outpatient - Elevation in creatinine prerenal, likely secondary to dehydration vs ampicillin use - Continue to hold home Bumex - pt does not want dialysis at this time, - fluids discontinued to avoid fluid overload, maintaining negative fluid balance still - LE edema causing continuous discomfort, will schedule his 2.5 mg oxycodone #Elevated troponin - Trop 72 on admission, repeat Trop 63 - EKG without ischemic changes, suspect due to demand #Hypotension (resolved) - Likely from infection - BP 74/44 in ED, improved with IV fluids - Currently hemodynamically stable #Chronic HFpEF #Aortic stenosis #Peripheral edema #CAD/PVD/HLD #Afib -Continue to hold home Bumex -cont. metoprolol; eliquis -cont. statin -cont. ASA, statin #DM2 -Lantus + SSI #Diabetic neuropathy -cont. gabapentin #COPD -cont. home inhalers #Anxiety -cont. clonazepam #BPH -cont. finasteride, tamsulosin DVT ppx: Eliquis FEN/GI: DM2 Admission and Anticipated Discharge Date Admission Date: March 19, 2023 Supervising Physician Co-Signing Physician Notes Attending attestation Pt seen and examined in concert with Dr. Carias. In agreement with the documented findings as noted in the resident documentation with any exceptions or additions as noted here. Bilateral foot/lower extremity pain is bothering him more now - reports that it often improves with activity and has been stable and chronic for some time. On examination, S1/S2 nl RRR no MCG. CTAB. Abd NT/ND BS+ve. 1+ pitting edema to the midshin bilaterally without erythema. JUDI on CKD IV - nephrology consult - mild improvement in Cr. Trend BMP daily. Extensive GOC conversation today with spouse at bedside with multiple clarifiers. Patient expressed desires include: would like to go to [facility] for improved lower extremity discomfort. Patient understands that his renal failure may recur. Patient states that he does not want to return to hospital for management of his renal failure, should it recur and would be interested in pursuing hospice/home care at that time. Spouse in agreement with statements. Will coordinate efforts to prepare for eventualities should these occur following discharge. E. faecalis bacteremia - PICC line in place. Will need 2-3 months of ampicillin therapy for full treatment Else see resident documentation as noted. Total attending physician time spent with this patient's care: 40 minutes. Subjective 87 yo male with PMHx of CKD Stage 4 (previous admission with JUDI requiring temporary dialysis), DVT, DM2 insulin dependent, HTN, hypothyroidism, afib, CAD, BPH, GERD, recurrent bacteremia, aortic stenosis, anxiety, and CHF who presents with fall. Today, spoke to patient and extensively about their goals. Pt states that he has decided that he wants to go to [facility] with the goal of getting his legs better. He states that last time he was there they helped him a lot with getting him to walk and he would like to go back there. He states that either he will get better and be discharged home and then would like to stay home and avoid the hospital if his condition declines or he will decline at [facility] and then would like to go home instead of to the hospital and again be allowed to stay home while he declines. He previously said he wanted to go home but realizes it would be a large burden on his and now states he would like to see if he can do rehab and see if he can get some mobility back before deciding to go home. He states that ultimately he wants to avoid any measures that would prolong his life or the progressive process of his declining kidney function. He has no medical concerns today, he states he is feeling fine today. His did note that he seems to have scratched the back of his ear overnight, something she states he has done in the past, and that he did scratch it enough to bleed, but they are not concerned about it, just wanted us to be aware. Review of Systems Review of Systems: Per HPI. Physical Exam Physical Exam: General:Alert, no acute distress, HEENT: Normocephalic, moist oral mucosa, back of R ear noted to have small vertical scratch with crusted blood Cardio: Regular rate and rhythm, LE edema b/l Resp:Lungs clear to auscultation b/l, Skin: Warm, pink, dry, Psych: Mood-affect congruence. Results & Data Results & Data Vital Signs (Past 12 Hours) Vital Signs Temp Pulse Resp BP Pulse Ox O2 Del Method 03/28/23 20:09 36.5 C 68 16 115/56 L 95 Room Air Resident Activity Tracking Resident Involvement: Resident Care Provided Care Provided: Adult Hospital Medicine (12) COPD (chronic obstructive pulmonary disease) COPD type: unspecified COPD Qualified Code(s): J44.9 - Chronic obstructive pulmonary disease, unspecified (13) Hypothyroidism Hypothyroidism type: unspecified Qualified Code(s): E03.9 - Hypothyroidism, unspecified (14) Hypertension Hypertension type: essential hypertension Qualified Code(s): I10 - Essential (primary) hypertension (18) CAD (coronary artery disease) Associated angina: without angina Coronary Disease-Associated Artery/Lesion type: [place] artery [place] vs. transplanted heart: [place] heart Qualified Code(s): I25.10 - Atherosclerotic heart disease of [place] coronary artery without angina pectoris (19) GERD (gastroesophageal reflux disease) Esophagitis presence: esophagitis presence not specified Qualified Code(s): K21.9 - Gastro-esophageal reflux disease without esophagitis (20) CHF (congestive heart failure) Heart failure chronicity: unspecified Heart failure type: unspecified Qualified Code(s): I50.9 - Heart failure, unspecified (21) Diabetes Diabetes mellitus complication status: with hyperglycemia Diabetes mellitus care home insulin use: with care home use Diabetes mellitus type: type 2 Qualified Code(s): E11.65 - Type 2 diabetes mellitus with hyperglycemia; Z79.4 - jail (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
[2023-03-29 08:35] LABS: Hematocrit (blood only) 26.2 % (42.0-52.0); Hemoglobin 8.7 g/dl (14.0-18.0); Mean Corpuscular Hemoglobin 29.6 pg (25.0-34.0); Mean Corpuscular Hgb Conc 33.2 g/dL (32.0-36.0); Mean Corpuscular Volume 89.1 fL (80.0-100.0); Mean Platelet Volume 9.6 fL (9.4-12.4); Platelet Count 265 K/uL (130-400); RDW Coefficient of Variation 14.6 % (11.5-14.5); RDW Standard Deviation 47.2 fL (36.4-46.3); Red Blood Count 2.94 M/uL (4.70-6.10); White Blood Count 8.03 K/ul (4.8-10.8)
[2023-03-29 08:44] LABS: Albumin Level 2.4 gm/dl (3.4-5.0); BUN Creatinine Ratio 8.8 (10-20); Calcium 8.2 mg/dl (8.6-10.3); Creatinine Clr Calc Pharmacy 10.4 ml/min; Est GFR (African American) 10.4 ml/min; Est GFR (Non-African American) 8.9 ml/min; Phosphorus 5.8 mg/dl (2.5-4.9); Potassium 3.5 mmol/L (3.5-5.1)
--- NOTE | 2023-03-29 09:21 | Nephrology Progress Note ---
Date of Service March 29, 2023 Assessment & Plan (1) Acute kidney injury superimposed on CKD: Plan: Good urine output. Creatinine improving. Electrolytes acceptable. Volume status acceptable. Clinical presentation suggestive of hemodynamic changes with prerenal JUDI and superimposed ATN. Medications are currently appropriately dosed for kidney function. Close follow up in the nephrology clinic to be arranged at discharge. Document I/O's while inpatient and monitor metabolic profile daily. (2) Chronic kidney disease, stage 4 (severe): Plan: Baseline creatinine 1.6-2.0 mg/dL. CKD III-IV A3. Kidney dysfunction advanced due to calcific vascular disease and multiple episodes of JUDI. Chang has established that dialysis will not be considered part of the care plan. (3) Recurrent bacteremia: Plan: GLO negative for vegetation. C3/C4 pending. However, urine microscopy acellular. Remains on ampicillin per ID recs. (4) Anemia of chronic disease: Plan: H/H stable. No reported symptoms. Completed Venofer 200 mg IV x 2 doses. Epogen 76926 units provided 03/27. Admission and Anticipated Discharge Date Admission Date: March 19, 2023 Subjective No acute events overnight. Chang was seen and evaluated with his at the bedside. He feels well this morning. He slept well last night. Chang is considering rehab prior to returning home. He would like to try to rebuild some strength. Edema is improving. He is breathing comfortably. Appetite fair. Review of Systems Review of Systems: All systems reviewed & are unremarkable except as noted in HPI & below Physical Exam Constitutional: well developed and + frail appearing; no acute distress Eyes: + anicteric sclerae; no corneal abnormality ENMT: Mouth: no oral mucosal abnormality and oral mucous membranes not dry Neck: normal visual inspection, trachea midline and + thick neck Respiratory: normal respiratory effort Auscultation: lungs clear to auscultation bilaterally and + rales Cardiovascular: Rate/Rhythm: regular rate Heart Sounds: normal S1, normal S2 and + murmur Extremities: + edema Musculoskeletal: Extremities: no cyanosis and no clubbing Skin: normal turgor; no jaundice Neurologic: Motor/Sensory: no tremor and no asterixis Psychiatric: Orientation: alert and oriented x 3 Results & Data Vital Signs (Past 12 Hours) Vital Signs Pulse Resp BP Pulse Ox O2 Del Method 03/29/23 07:38 69 18 152/67 H 98 Room Air Laboratory Results Laboratory Results - last 24 hr 03/28/23 03/28/23 03/28/23 11:15 16:37 20:38 WBC RBC Hgb Hct MCV MCH MCHC RDW Std Deviation RDW Coeff of Adrian Plt Count MPV Sodium Potassium Chloride Carbon Dioxide Anion Gap BUN Creatinine Est Cr Clr Drug Dosing Est GFR ( Amer) Est GFR (Non-Af Amer) BUN/Creatinine Ratio Glucose POC Glucose 193 H 127 H 128 H Calcium Phosphorus Albumin 03/29/23 03/29/23 03/29/23 07:54 07:54 08:03 WBC 8.03 RBC 2.94 L Hgb 8.7 L Hct 26.2 L MCV 89.1 MCH 29.6 MCHC 33.2 RDW Std Deviation 47.2 H RDW Coeff of Adrian 14.6 H Plt Count 265 MPV 9.6 Sodium 141 Potassium 3.5 Chloride 106 Carbon Dioxide 24 Anion Gap 11 BUN 47 H Creatinine 5.32 H* D Est Cr Clr Drug Dosing 10.4 Est GFR ( Amer) 10.4 Est GFR (Non-Af Amer) 8.9 BUN/Creatinine Ratio 8.8 L Glucose 104 H POC Glucose 104 H Calcium 8.2 L Phosphorus 5.8 H Albumin 2.4 L PG Care Time/CCT Total # of Minutes Spent Total Time Spent with Patient: Total time spent is greater than 50% in coordination of care (as documented) at patient's floor/unit and/or counseling patient: Coding Level of Care Code 87877 SUB INP/OBS CARE 3/50MIN Diagnoses Acute kidney injury superimposed on CKD N17.9; N18.9 Chronic kidney disease, stage 4 (severe) N18.4 Recurrent bacteremia R78.81 Anemia of chronic disease D63.8
[2023-03-29] MEDS: GABAPENTIN 100 MG CAP PO SCH (09:27)
[2023-03-29] MEDS: ASPIRIN 81 MG ECTAB PO SCH (09:27)
[2023-03-29] MEDS: METOPROLOL TARTRATE 25 MG TAB PO SCH ×2 (09:27→20:39)
[2023-03-29] MEDS: PANTOprazole 40 MG TAB PO SCH ×2 (09:27→20:38)
[2023-03-29] MEDS: FLUTICASONE/VILANTEROL 100/25MCG 14 PUFFS/INHALER INH SCH (09:28)
[2023-03-29] MEDS: APIXABAN 2.5 MG TAB PO SCH ×2 (09:28→20:45)
[2023-03-29] MEDS: INSULIN ASPART PER UNIT CHARGE SC SCH ×4 (09:31→20:37)
[2023-03-29] MEDS: clonazePAM 1 MG TAB PO SCH ×2 (09:31→20:36)
[2023-03-29] MEDS: LANTUS PER UNIT CHARGE SQ SCH (09:31)
[2023-03-29] MEDS: oxyCODONE HCL IR 5 MG TAB (IMMEDIATE RELEASE) PO PRN (09:42)
[2023-03-29] MEDS: UMECLIDINIUM BROMIDE 62.5MCG/BLISTER 7 PUFFS/INHALER INH SCH (10:37)
[2023-03-29] MEDS ORDERED: oxyCODONE HCL IR 5 MG TAB (IMMEDIATE RELEASE) PO SCH (10:45)
--- NOTE | 2023-03-29 13:21 | Infectious Disease Progress Nt ---
Date of Service March 29, 2023 Assessment & Plan (1) Recurrent bacteremia: Plan 87 yo male with a past medical history of CKD, DVT, DM, HTN, pAfib on eliquis, CAD, BPH, GERD, CHF who presents to the hospital on 01/20/2023 for hypoglycemia, weakness and worsened AMS, recently admitted with E. faecalis bacteremia treated and readmitted on 03/18 after a fall. Patient is now bacteremia with E. faecalis, ID consulted. During his last admission, patient very weak and fell. The following day he c/o chest pain but did not want her to take him to the hospital or call EMS. He had episodes of confusion and disorientation before. On day of admit, he was found to be hypoglycemic. Notably large blisters on his legs since getting home from the hospital. She states one of the blisters got very large and popped and states that it drained pus. Recently discharged from hospital on 01/16, admitted with JUDI, dx with acute interstitial nephritis. On admission on 01/20, WBC normal, but patient found to be altered and concern for UTI. WBC normal, Cr 2.08 He was given Vancomycin and ceftriaxone. 01/20 Blood cultures E. faecalis, Amp sensitive 01/20 Ucx three types of organism all high counts probable skin gilma 2DE negative then. He was treated 2 weeks of ampicillin from first negative culture through 02/07/23. Patient was treated but had sudden fall and readmitted on 03/18. 03/18 GPC, Rapidly ID E. faecalis (no resistance). ID now consulted. Imaging: CT A/P wo contrast: Wall thickening of the urinary bladder measuring up to 7 mm, Multilevel posterior lumbar fusion and laminectomies, diverticulosis 03/22 GLO negative Left knee xray no effusion R ankle xray no effusion BL LE dopplers no dvt R foot xray Degenerative changes, with focal demineralization at the second digit proximal interphalangeal joint. 03/24 evaluated by ortho and no concern for septic arthritis in knees or ankle #Efaecalis bacteremia, recurrent #CKD #b/l TKAs #lumbar hardware MICRO 01/20 Blood cultures E. faecalis, Amp sensitive 01/20 Ucx three types of organism all high counts probable skin gilma 01/22 blood culture E. faecalis Amp sensitive 01/24 Bcx no growth to date 03/18 Bcx E. faecalis, ampS 03/20 Bcx E. faecalis, ampS 03/22 sterile 03/25 NGTD Discussion Patient with recurrent E. faecalis bacteremia. Initially presented previously with UTI at prior hospitalization now a/w +cx 03/18 and 03/20. Hardware in spine, b/l TKAs. Imaging is limited b/c of CKD. However GLO is negative, Xray of knee with no effusion . BL LE doppler negative. Exam shows R foot swollen and tender to touch, suggesting possible source or seeding. A right foot xray shows degenerative changes with focal demineralization at the second digit proximal interphalangeal joint. No fracture. RECOMMEND -Continue Ampicillin 2 g iv q12 , monitor CrCl closely if continues to worsen will decrease dose ( cr 5.32 crcl 10), will need to adjust dosing based on renal function -Follow up blood cultures on 03/25, -If cont to be bacteremic will need evaluation of spinal hardware (at this time he has no back pain or tenderness) -Consider MRi R foot , if no contraindication with renal function given pain on exam and xray finding. If osteo, may need source control with debridement vs amputation. Please hold on any central lines until we have clearance. I anticipate he will need extended treatment given recurrence w/o sig source at this time. ID will continue to follow. Constantino Hanson MD, MPH Infectious Disease [facility], [facility] Call [phone] with questions Admission and Anticipated Discharge Date Admission Date: March 19, 2023 Subjective Subsequent visit was provided via telemedicine using two-way real-time interactive telecommunication between the patient and the telemedicine provider. For the duration of the visit, the provider was performing the assessment from a different facility than the patient. This includesuse of bluetooth stethoscope forauscultationperformed by the telepresenter that the telemedicine provider can hear if described in the physical exam. Engagement Specialist contact information: Please call [facility] Call Center . (Phone Number For Physician Use Only) After establishing a telemedicine visit, patient was: Patient was verified with two unique identifiers and Patient/authorized rep acknowledged consent and understanding Time Spent with Patient: Subsequent => 25 min Complains of BL LE pain and edema;denies knee effusion at BS Afebrile cr 5.32 repeat BC sterile. Physical Exam Physical Exam: NAd Supple neck No increased wrk of breathing Abd-Soft, NT - no jeronimo, No suprapubic or cva tenderness Ext BL LE edema L>R, cronic changes, no knee effusions. LE tender MSK - No spinal tenderness Results & Data Vital Signs (Past 12 Hours) Vital Signs Pulse Resp BP Pulse Ox O2 Del Method 03/29/23 07:38 69 18 152/67 H 98 Room Air Laboratory Results Short CBC 03/29/23 Range/Units 07:54 WBC 8.03 (4.8-10.8) K/ul Hgb 8.7 L (14.0-18.0) g/dl Hct 26.2 L (42.0-52.0) % Plt Count 265 (130-400) K/uL BMP 03/29/23 07:54 Sodium 141 Potassium 3.5 Chloride 106 Carbon Dioxide 24 BUN 47 H Creatinine 5.32 H* D Glucose 104 H Calcium 8.2 L Liver Function 03/29/23 Range/Units 07:54 Albumin 2.4 L (3.4-5.0) gm/dl Diagnostic Findings Microbiology 03/20/23 19:32 Blood Aerobic Blood Culture - Final Enterococcus faecalis 03/20/23 19:32 Blood Anaerobic Blood Culture - Final No growth in Anaerobic bottle after 5 days. 03/22/23 09:31 Blood Aerobic Blood Culture - Final No growth in Aerobic bottle after 5 days. 03/22/23 09:31 Blood Anaerobic Blood Culture - Final No growth in Anaerobic bottle after 5 days. 03/22/23 09:36 Blood Aerobic Blood Culture - Final No growth in Aerobic bottle after 5 days. 03/22/23 09:36 Blood Anaerobic Blood Culture - Final No growth in Anaerobic bottle after 5 days. 03/25/23 09:08 Blood Aerobic Blood Culture - Preliminary No growth in Aerobic bottle after 48 hours. 03/25/23 09:08 Blood Anaerobic Blood Culture - Preliminary No growth in Anaerobic bottle after 48 hours. 03/25/23 09:03 Blood Aerobic Blood Culture - Preliminary No growth in Aerobic bottle after 48 hours. 03/25/23 09:03 Blood Anaerobic Blood Culture - Preliminary No growth in Anaerobic bottle after 48 hours. 03/20/23 19:30 Blood Aerobic Blood Culture - Final No growth in Aerobic bottle after 5 days. 03/20/23 19:30 Blood Anaerobic Blood Culture - Final No growth in Anaerobic bottle after 5 days. 03/18/23 20:17 Blood Aerobic Blood Culture - Final Enterococcus faecalis 03/18/23 20:17 Blood Anaerobic Blood Culture - Final Enterococcus faecalis 03/18/23 20:17 Blood Aerobic Blood Culture - Final Enterococcus faecalis 03/18/23 20:17 Blood Anaerobic Blood Culture - Final Enterococcus faecalis Foot X-Ray 03/27/23 14:41 XR foot RT 2V CLINICAL HISTORY: R 2nd digit pain TECHNIQUE: 3 views of the right foot were obtained. Comparison: Comparison is made to right foot radiographs 12/05/2021 and MRI right foot 12/15/2021 FINDINGS: Demineralization is seen at the second digit proximal interphalangeal joint. No focal erosion is definitely seen within the limitations of technique. No fracture is seen. Degenerative changes are seen throughout the foot. Soft tissue swelling is seen about the foot. Vascular calcifications are seen. IMPRESSION: Degenerative changes are seen with focal demineralization at the second digit proximal interphalangeal joint. If there is concern for osteomyelitis, MRI can be performed as a more sensitive modality. There is no radiographic evidence of acute fracture. ACT 112: Negative or not required by law. Electronically signed by: Dano West M.D. 03/27/2023 7:44 PM Medications Administered Home Medications Medication Instructions Recorded Confirmed Last Taken albuterol sulfate 90 mcg/actuation 2 puffs inhalation Q6H PRN 01/10/19 03/19/23 03/16/20 04:00 aerosol inhaler shortness of breath or wheezing levothyroxine 88 mcg tablet 75 mcg PO DAILYBB #90 tabs 01/10/19 03/19/23 12/29/22 potassium chloride 20 mEq 20 meq PO BID 01/10/19 03/19/23 12/29/22 08:00 tablet,extended release finasteride 5 mg tablet 5 mg PO HS 04/23/19 03/19/23 12/28/22 gabapentin 100 mg capsule See Rx Instructions .Route .COMPLEX 12/16/20 03/19/23 12/29/22 08:00 aspirin 81 mg tablet,delayed 81 mg PO DAILY 10/11/21 03/19/23 12/29/22 release pantoprazole 20 mg tablet,delayed 20 mg PO BID 02/07/22 03/19/23 12/29/22 08:00 release acetaminophen 500 mg tablet 1,000 mg PO Q6H PRN PAIN/FEVER 05/28/22 03/19/23 Unknown (Tylenol Extra Strength) clonazepam 1 mg tablet 1 mg PO BID 05/28/22 03/19/23 12/29/22 08:00 fluticasone 500 mcg-salmeterol 50 1 inh inhalation BID 05/28/22 03/19/23 12/29/22 08:00 mcg/dose blistr powdr for inhalation metoprolol tartrate 50 mg tablet 25 mg PO BID 05/28/22 03/19/23 12/29/22 08:00 multivitamin with minerals 1 tab PO DAILY 05/28/22 03/19/23 12/29/22 rosuvastatin 20 mg tablet 20 mg PO HS 05/28/22 03/19/23 12/28/22 tiotropium bromide 2.5 2 puff inhalation DAILY 05/28/22 03/19/23 12/29/22 mcg/actuation mist for inhalation vitamins A,C,F-zkyd-jrojrz 2,148 1 tab PO DAILY 05/28/22 03/19/23 12/29/22 mcg-113 mg-45 mg-17.4 mg tablet (PreserVision AREDS) apixaban 5 mg tablet (Eliquis) 2.5 mg PO Q12H 12/29/22 03/19/23 12/29/22 08:00 calcium citrate 315 mg-vitamin D3 2 tab PO DAILY 12/29/22 03/19/23 12/29/22 5 mcg (200 unit) tablet (Calcium Citrate + D) loratadine 10 mg tablet (Claritin) 10 mg PO DAILY PRN Congestion 12/29/22 03/19/23 Unknown tamsulosin 0.4 mg capsule (Flomax) 0.8 mg PO HS 12/29/22 03/19/23 12/28/22 insulin aspart U-100 100 unit/mL 14 unit subcut TIDWMEAL 03/19/23 03/19/23 Unknown subcutaneous solution (Novolog U-100 Insulin aspart) insulin glargine 100 unit/mL (3 26 unit subcut BID 03/19/23 03/19/23 Unknown mL) subcutaneous pen (Lantus Solostar U-100 Insulin) Active Medications Generic Name Dose Route Start Last Admin Trade Name Freq PRN Reason Stop Dose Admin Acetaminophen 650 mg 03/19/23 01:59 03/29/23 01:27 Acetaminophen 325 Mg Tab PO 04/18/23 01:58 650 mg Q4H PRN Administration Pain or Fever Apixaban 2.5 mg 03/22/23 21:00 03/29/23 09:28 Apixaban 2.5 Mg Tab PO 04/21/23 20:59 2.5 mg BID VANDANA Administration Aspirin 81 mg 03/19/23 09:00 03/29/23 09:27 Aspirin 81 Mg Ectab PO 04/18/23 08:59 81 mg DAILY VANDANA Administration Clonazepam 1 mg 03/19/23 09:00 03/29/23 09:31 Clonazepam 1 Mg Tab PO 04/18/23 08:59 1 mg BID VANDANA Administration Finasteride 5 mg 03/19/23 21:00 03/28/23 20:49 Finasteride 5 Mg Tab PO 04/18/23 20:59 5 mg HS VANDANA Administration Fluticasone/Vilanterol 1 puffs 03/19/23 09:00 03/29/23 09:28 Fluticasone/Vilanterol 100/25mcg 14 Puffs/Inhaler INH 04/18/23 08:59 1 puffs DAILY VANDANA Administration Gabapentin 100 mg 03/19/23 09:00 03/29/23 09:27 Gabapentin 100 Mg Cap PO 04/18/23 08:59 100 mg QAM VANDANA Administration Gabapentin 300 mg 03/19/23 21:00 03/28/23 20:49 Gabapentin 300 Mg Cap PO 04/18/23 20:59 300 mg HS VANDANA Administration Heparin Sodium (Beef Lung) 5 ml 03/27/23 15:13 03/29/23 08:01 Heparin 10 Unit/Ml 5 Ml Flush FLUSH 04/26/23 15:12 5 ml PRN PRN Administration Flush Ampicillin Sodium 2,000 mg/ 100 mls @ 200 mls/hr 03/27/23 02:00 03/29/23 14:18 Sodium Chloride IV 04/02/23 13:59 Infused Q12H VANDANA Infusion Insulin Aspart 0 units 03/19/23 07:30 03/29/23 12:34 Insulin Aspart Per Unit Charge SC 04/18/23 07:29 1 units ACHS VANDANA Administration Insulin Glargine 20 units 03/25/23 09:00 03/29/23 09:31 Lantus Per Unit Charge SQ 04/24/23 08:59 20 units QAM VANDANA Administration Levothyroxine Sodium 88 mcg 03/19/23 06:30 03/29/23 05:39 Levothyroxine Sodium 88 Mcg Tablet PO 04/18/23 06:29 88 mcg DAILYBB VANDANA Administration Metoprolol Tartrate 25 mg 03/19/23 09:00 03/29/23 09:27 Metoprolol Tartrate 25 Mg Tab PO 04/18/23 08:59 25 mg BID VANDANA Administration Miscellaneous 15 - 30 gm 03/19/23 01:59 03/20/23 07:33 Carbohydrates For Hypoglycemia PO 04/18/23 01:58 15 gm UD PRN Administration Hypoglycemia Protocol Oxycodone HCl 2.5 mg 03/29/23 15:00 03/29/23 14:08 Oxycodone Hcl Ir 5 Mg Tab (Immediate Release) PO 04/12/23 14:59 2.5 mg Q6 VANDANA Administration Pantoprazole Sodium 40 mg 03/19/23 09:00 03/29/23 09:27 Pantoprazole 40 Mg Tab PO 04/18/23 08:59 40 mg BID VANDANA Administration Rosuvastatin Calcium 10 mg 03/25/23 21:00 03/28/23 20:49 Rosuvastatin Calcium 10 Mg Tab PO 04/24/23 20:59 10 mg HS VANDANA Administration Tamsulosin HCl 0.8 mg 03/19/23 21:00 03/28/23 20:49 Tamsulosin Hcl 0.4 Mg Cap PO 04/18/23 20:59 0.8 mg HS VANDANA Administration Umeclidinium [place] 1 puffs 03/19/23 09:00 03/29/23 10:37 Umeclidinium [place] 62.5mcg/Blister 7 Puffs/Inhaler INH 04/18/23 08:59 1 puffs DAILY VANDANA Administration
[2023-03-29] MEDS: oxyCODONE HCL IR 5 MG TAB (IMMEDIATE RELEASE) PO SCH ×2 (14:08→20:36)
[2023-03-29] MEDS: TAMSULOSIN HCL 0.4 MG CAP PO SCH (20:38)
[2023-03-29] MEDS: FINASTERIDE 5 MG TAB PO SCH (20:39)
[2023-03-29] MEDS: GABAPENTIN 300 MG CAP PO SCH (20:39)
[2023-03-29] MEDS: ROSUVASTATIN CALCIUM 10 MG TAB PO SCH (20:39)
[2023-03-30] MEDS: oxyCODONE HCL IR 5 MG TAB (IMMEDIATE RELEASE) PO SCH ×4 (01:01→18:32)
[2023-03-30] MEDS: AMPICILLIN 2,000 MG in SODIUM CHLOR 0.9% MINI-B 100 ML IV SCH ×3 (01:01→22:57)
[2023-03-30] MEDS: LEVOTHYROXINE SODIUM 88 MCG TABLET PO SCH (05:45)
--- NOTE | 2023-03-30 07:07 | Hospitalist Progress Note ---
Date of Service March 30, 2023 Assessment & Plan (1) Hypotension: (2) Elevated troponin I level: (3) Recurrent bacteremia: (4) Anxiety: (5) Anemia of chronic disease: (6) Chronic kidney disease, stage 4 (severe): (7) Acute kidney injury superimposed on CKD: (8) Moderate calcific aortic stenosis: (9) Peripheral vascular disease: (10) Lower extremity edema: (11) Benign prostatic hyperplasia with urinary obstruction: (12) COPD (chronic obstructive pulmonary disease): (13) Hypothyroidism: (14) Hypertension: (15) Dyslipidemia: (16) Paroxysmal atrial fibrillation: (17) Vitamin D deficiency: (18) CAD (coronary artery disease): (19) GERD (gastroesophageal reflux disease): (20) CHF (congestive heart failure): (21) Diabetes: Plan 87 yo male with PMHx of CKD Stage 4 (previous admission with JUDI requiring temporary dialysis), DVT, DM2 insulin dependent, HTN, hypothyroidism, afib, CAD, BPH, GERD, recurrent bacteremia, aortic stenosis, anxiety, and CHF who presents with unwitnessed fall with concomitant bowel/bladder incontinence and associated hypotension. Pt unsure at this point whether he wants to go home vs [facility]. Notes that today he feels conflicted and needs more time to think. 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 Follows with nephro outpatient - Elevation in creatinine prerenal, likely secondary to dehydration vs ampicillin use - Continue to hold home Bumex - pt does not want dialysis at this time, - fluids discontinued to avoid fluid overload, maintaining negative fluid balance still - LE edema causing continuous discomfort, will schedule his 2.5 mg oxycodone #Chronic HFpEF #Aortic stenosis #Peripheral edema #CAD/PVD/HLD #Afib -Continue to hold home Bumex -cont. metoprolol; eliquis -cont. statin -cont. ASA, statin #DM2 -Lantus + SSI #Diabetic neuropathy -cont. gabapentin #COPD -cont. home inhalers #Anxiety -cont. clonazepam #BPH -cont. finasteride, tamsulosin DVT ppx: Eliquis FEN/GI: DM2 Admission and Anticipated Discharge Date Admission Date: March 19, 2023 Supervising Physician Co-Signing Physician Notes Attending attestation Pt seen and examined in concert with Dr. Carias. In agreement with the documented findings as noted in the resident documentation with any exceptions or additions as noted here. Bilateral foot/lower extremity pain continues to be primary complaint. Reported sx improved with time at [facility], though rationale unknown. Did experience increased sedation with escalated pain medication. 2nd toe pain overall improved and now without pain even with direct pressure. On examination, S1/S2 nl RRR no MCG. CTAB. Abd NT/ND BS+ve. 2+ pitting edema to the midshin bilaterally without erythema. 2nd toe with very mild erythema at the interphalangeal joint without TTP. JUDI on CKD IV - nephrology consult - continued, gradual imrpovement in Cr. Patient and spouse reiterate desire to not engage in furher HD. Bilateral lower extremity pain - mostly likely neuropathic vs. edema in etiology - increased somnolence with increased pain control - GOC conversation pending re: further management of edema resulting in likely JUDI return, increased pain control causing sedation and interfering with stated plan of evaluation at rehab facility. E. faecalis bacteremia with multiple source concerns - PICC line in place. Will need 2-3 months of ampicillin therapy for full treatment. D/W patient and family re: concern on XR toe and definitive imaging with questionable impact on course as have previously declined aggressive interventions. Else see resident documentation as noted. Total attending physician time spent with this patient's care: 45 minutes. Subjective 87 yo male with PMHx of CKD Stage 4 (previous admission with JUDI requiring temporary dialysis), DVT, DM2 insulin dependent, HTN, hypothyroidism, afib, CAD, BPH, GERD, recurrent bacteremia, aortic stenosis, anxiety, and CHF who presents with fall. Today, pt was seen in the morning, not present at the time. He states that he feels conflicted today because he is not totally sure if he wants to go to [facility] or if he wants to go home from here. He states that ultimately he wants to make the right choice and is not sure at this point which would be better for him. He states he would like to still think over his options and was assured that if he goes to [facility] he can at any point change his mind and go home from there. He would like to think over what he wants at this point. He also notes that his feet feel more sore today. No further questions or concerns at this time. Review of Systems Review of Systems: Per HPI. Physical Exam Physical Exam: General:Alert, no acute distress, HEENT: Normocephalic, Cardio: Regular rate and rhythm, LE pitting edema b/l once again noted Resp:Lungs clear to auscultation b/l, Skin: Warm, pink, dry, Psych: Mood-affect congruence. Results & Data Results & Data Vital Signs (Past 12 Hours) Vital Signs Temp Pulse Resp BP Pulse Ox O2 Del Method 03/29/23 22:50 Room Air 03/29/23 19:34 36.3 C L 78 15 138/70 97 Room Air Resident Activity Tracking Resident Involvement: Resident Care Provided Care Provided: Adult Hospital Medicine (12) COPD (chronic obstructive pulmonary disease) COPD type: unspecified COPD Qualified Code(s): J44.9 - Chronic obstructive pulmonary disease, unspecified (13) Hypothyroidism Hypothyroidism type: unspecified Qualified Code(s): E03.9 - Hypothyroidism, unspecified (14) Hypertension Hypertension type: essential hypertension Qualified Code(s): I10 - Essential (primary) hypertension (18) CAD (coronary artery disease) Associated angina: without angina Coronary Disease-Associated Artery/Lesion type: [place] artery [place] vs. transplanted heart: [place] heart Qualified Code(s): I25.10 - Atherosclerotic heart disease of [place] coronary artery without angina pectoris (19) GERD (gastroesophageal reflux disease) Esophagitis presence: esophagitis presence not specified Qualified Code(s): K21.9 - Gastro-esophageal reflux disease without esophagitis (20) CHF (congestive heart failure) Heart failure chronicity: unspecified Heart failure type: unspecified Qualified Code(s): I50.9 - Heart failure, unspecified (21) Diabetes Diabetes mellitus complication status: with hyperglycemia Diabetes mellitus half-way insulin use: with terminal operator use Diabetes mellitus type: type 2 Qualified Code(s): E11.65 - Type 2 diabetes mellitus with hyperglycemia; 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
[2023-03-30 07:30] LABS: Basophils # (auto) 0.04 K/uL (0.00-0.20); Basophils % (auto) 0.5 %; Eosinophils # (auto) 0.21 K/uL (0.00-0.50); Eosinophils % (auto) 2.7 %; Hematocrit (blood only) 25.7 % (42.0-52.0); Hemoglobin 8.4 g/dl (14.0-18.0); Immature Granulocytes # (auto) 0.07 K/uL (0.01-0.20); Immature Granulocytes % (auto) 0.9 %; Lymphocytes # (auto) 1.53 K/uL (1.20-3.40); Lymphocytes % (auto) 19.9 %; Mean Corpuscular Hemoglobin 30.1 pg (25.0-34.0); Mean Corpuscular Hgb Conc 32.7 g/dL (32.0-36.0); Mean Corpuscular Volume 92.1 fL (80.0-100.0); Mean Platelet Volume 9.3 fL (9.4-12.4); Monocytes # (auto) 0.58 K/uL (0.11-0.59); Monocytes % (auto) 7.6 %; Neutrophils # (auto) 5.25 K/uL (1.40-6.50); Neutrophils % (auto) 68.4 %; Platelet Count 268 K/uL (130-400); RDW Coefficient of Variation 14.6 % (11.5-14.5); RDW Standard Deviation 49.6 fL (36.4-46.3); Red Blood Count 2.79 M/uL (4.70-6.10); White Blood Count 7.68 K/ul (4.8-10.8)
[2023-03-30 07:52] LABS: Albumin Globulin Ratio 0.6 (0.9-2); Albumin Level 2.2 gm/dl (3.4-5.0); BUN Creatinine Ratio 8.7 (10-20); Bilirubin,Total 0.3 mg/dl (0.2-1.0); Creatinine Clr Calc Pharmacy 11.7 ml/min; Est GFR (African American) 11.9 ml/min; Est GFR (Non-African American) 10.3 ml/min; Globulin 3.5 gm/dl (2.5-4.0); Potassium 3.4 mmol/L (3.5-5.1); Total Protein 5.7 gm/dl (6.0-8.3)
[2023-03-30] MEDS ORDERED: POTASSIUM CHLORIDE CRTAB 20 MEQ TABCR PO STA (07:58)
[2023-03-30] MEDS: METOPROLOL TARTRATE 25 MG TAB PO SCH ×2 (08:32→20:26)
[2023-03-30] MEDS: PANTOprazole 40 MG TAB PO SCH ×2 (08:32→20:25)
[2023-03-30] MEDS: APIXABAN 2.5 MG TAB PO SCH ×2 (08:32→20:26)
[2023-03-30] MEDS: ASPIRIN 81 MG ECTAB PO SCH (08:32)
[2023-03-30] MEDS: GABAPENTIN 100 MG CAP PO SCH (08:32)
[2023-03-30] MEDS: UMECLIDINIUM BROMIDE 62.5MCG/BLISTER 7 PUFFS/INHALER INH SCH (08:32)
[2023-03-30] MEDS: FLUTICASONE/VILANTEROL 100/25MCG 14 PUFFS/INHALER INH SCH (08:33)
[2023-03-30] MEDS: LANTUS PER UNIT CHARGE SQ SCH (08:41)
[2023-03-30] MEDS: clonazePAM 1 MG TAB PO SCH ×2 (08:41→20:28)
[2023-03-30] MEDS: INSULIN ASPART PER UNIT CHARGE SC SCH ×4 (08:42→20:47)
--- NOTE | 2023-03-30 10:31 | Nephrology Progress Note ---
Date of Service March 30, 2023 Assessment & Plan (1) Acute kidney injury superimposed on CKD: Plan: Good urine output. Creatinine improving. Electrolytes acceptable. Volume status acceptable. Clinical presentation suggestive of hemodynamic changes with prerenal JUDI and superimposed ATN. Medications are currently appropriately dosed for kidney function. Close follow up in the nephrology clinic to be arranged at discharge. Document I/O's while inpatient and monitor metabolic profile daily. (2) Chronic kidney disease, stage 4 (severe): Plan: Baseline creatinine 1.6-2.0 mg/dL. CKD III-IV A3. Kidney dysfunction advanced due to calcific vascular disease and multiple episodes of JUDI. Chang has established that dialysis will not be considered part of the care plan. (3) Recurrent bacteremia: Plan: GLO negative for vegetation. Remains on ampicillin per ID recs. (4) Anemia of chronic disease: Plan: H/H stable. No reported symptoms. Completed Venofer 200 mg IV x 2 doses. Epogen 26293 units provided 03/27. Admission and Anticipated Discharge Date Admission Date: March 19, 2023 Subjective No acute events overnight. Chang is feeling tired this AM. He reports feeling sore. He denies shortness of breath. No fluid retention or edema. He as seen and evaluated with his at the bedside. They reiterated that they would like short term rehab prior to return home. We discussed the high probability of recurrent JUDI and kidney dysfunction progressing. Chang stated that he would transition to palliative care and hospice if his condition declined. I discussed the plan of care with Dr. Bennett this morning. Review of Systems Review of Systems: All systems reviewed & are unremarkable except as noted in HPI & below Physical Exam Constitutional: well developed and + frail appearing; no acute distress Eyes: + anicteric sclerae; no corneal abnormal ity Neck: normal visual inspection, trachea midline and + thick neck Respiratory: normal respiratory effort Auscultation: lungs clear to auscultation bilaterally Cardiovascular: Rate/Rhythm: regular rate Heart Sounds: normal S1, normal S2 and + murmur Extremities: + edema Musculoskeletal: Extremities: no cyanosis and no clubbing Skin: no rashes and no jaundice Neurologic: Motor/Sensory: no tremor and no asterixis Psychiatric: Orientation: alert and oriented x 3 Results & Data Vital Signs (Past 12 Hours) Vital Signs Temp Pulse Resp BP Pulse Ox O2 Del Method 03/30/23 07:59 37.2 C 73 16 149/76 H 96 Room Air 03/29/23 22:50 Room Air Laboratory Results Laboratory Results - last 24 hr 03/29/23 03/29/23 03/29/23 11:53 16:41 20:32 WBC RBC Hgb Hct MCV MCH MCHC RDW Std Deviation RDW Coeff of Adrian Plt Count MPV Immature Gran % (Auto) Neut % (Auto) Lymph % (Auto) [place] % (Auto) Eos % (Auto) Baso % (Auto) Neut # (Auto) Lymph # (Auto) [place] # (Auto) Eos # (Auto) Baso # (Auto) Immature Gran # (Auto) Sodium Potassium Chloride Carbon Dioxide Anion Gap BUN Creatinine Est Cr Clr Drug Dosing Est GFR ( Amer) Est GFR (Non-Af Amer) BUN/Creatinine Ratio Glucose POC Glucose 172 H 130 H 163 H Calcium Total Bilirubin AST ALT Alkaline Phosphatase Total Protein Albumin Globulin Albumin/Globulin Ratio 03/30/23 03/30/23 06:56 07:58 WBC 7.68 RBC 2.79 L Hgb 8.4 L Hct 25.7 L MCV 92.1 MCH 30.1 MCHC 32.7 RDW Std Deviation 49.6 H RDW Coeff of Adrian 14.6 H Plt Count 268 MPV 9.3 L Immature Gran % (Auto) 0.9 Neut % (Auto) 68.4 Lymph % (Auto) 19.9 [place] % (Auto) 7.6 Eos % (Auto) 2.7 Baso % (Auto) 0.5 Neut # (Auto) 5.25 Lymph # (Auto) 1.53 [place] # (Auto) 0.58 Eos # (Auto) 0.21 Baso # (Auto) 0.04 Immature Gran # (Auto) 0.07 Sodium 141 Potassium 3.4 L Chloride 108 H Carbon Dioxide 26 Anion Gap 7 BUN 41 H Creatinine 4.73 H* D Est Cr Clr Drug Dosing 11.7 Est GFR ( Amer) 11.9 Est GFR (Non-Af Amer) 10.3 BUN/Creatinine Ratio 8.7 L Glucose 135 H POC Glucose 137 H Calcium 8.0 L Total Bilirubin 0.3 AST 11 L ALT 6 L Alkaline Phosphatase 112 H Total Protein 5.7 L Albumin 2.2 L Globulin 3.5 Albumin/Globulin Ratio 0.6 L Diagnostic Findings Laboratory Results - last 24 hr 03/29/23 03/29/23 03/29/23 11:53 16:41 20:32 WBC RBC Hgb Hct MCV MCH MCHC RDW Std Deviation RDW Coeff of Adrian Plt Count MPV Immature Gran % (Auto) Neut % (Auto) Lymph % (Auto) [place] % (Auto) Eos % (Auto) Baso % (Auto) Neut # (Auto) Lymph # (Auto) [place] # (Auto) Eos # (Auto) Baso # (Auto) Immature Gran # (Auto) Sodium Potassium Chloride Carbon Dioxide Anion Gap BUN Creatinine Est Cr Clr Drug Dosing Est GFR ( Amer) Est GFR (Non-Af Amer) BUN/Creatinine Ratio Glucose POC Glucose 172 H 130 H 163 H Calcium Total Bilirubin AST ALT Alkaline Phosphatase Total Protein Albumin Globulin Albumin/Globulin Ratio 03/30/23 03/30/23 06:56 07:58 WBC 7.68 RBC 2.79 L Hgb 8.4 L Hct 25.7 L MCV 92.1 MCH 30.1 MCHC 32.7 RDW Std Deviation 49.6 H RDW Coeff of Adrian 14.6 H Plt Count 268 MPV 9.3 L Immature Gran % (Auto) 0.9 Neut % (Auto) 68.4 Lymph % (Auto) 19.9 [place] % (Auto) 7.6 Eos % (Auto) 2.7 Baso % (Auto) 0.5 Neut # (Auto) 5.25 Lymph # (Auto) 1.53 [place] # (Auto) 0.58 Eos # (Auto) 0.21 Baso # (Auto) 0.04 Immature Gran # (Auto) 0.07 Sodium 141 Potassium 3.4 L Chloride 108 H Carbon Dioxide 26 Anion Gap 7 BUN 41 H Creatinine 4.73 H* D Est Cr Clr Drug Dosing 11.7 Est GFR ( Amer) 11.9 Est GFR (Non-Af Amer) 10.3 BUN/Creatinine Ratio 8.7 L Glucose 135 H POC Glucose 137 H Calcium 8.0 L Total Bilirubin 0.3 AST 11 L ALT 6 L Alkaline Phosphatase 112 H Total Protein 5.7 L Albumin 2.2 L Globulin 3.5 Albumin/Globulin Ratio 0.6 L PG Care Time/CCT Total # of Minutes Spent Total Time Spent with Patient: Total time spent is greater than 50% in coordination of care (as documented) at patient's floor/unit and/or counseling patient: Coding Level of Care Code 91216 SUB INP/OBS CARE 50MIN Diagnoses Acute kidney injury superimposed on CKD N17.9; N18.9 Chronic kidney disease, stage 4 (severe) N18.4 Recurrent bacteremia R78.81 Anemia of chronic disease D63.8
--- NOTE | 2023-03-30 12:41 | Communication Note ---
Date of Service: March 30, 2023 Brief Pall Med Note Consulted to assist with GOC clarfiication Pt has elected trial of rehab at SNF then dc home with hospice. He remains very clear he does not want HD and he does not want CPR Strongly recommend a POLST form is completed and sent with him to SNF so they have a clear direction for the plan of care and his wishes. I will sign off, there are no acute or urgent inpatient pall med needs at this time NC submitted Thank you for allowing us to participate in the ongoing care of this patient. Please don't hesitate to call or page with any additional concerns. Dr. Zoila Espinoza DNP Director, Palliative Care
--- NOTE | 2023-03-30 13:36 | Infectious Disease Progress Nt ---
Date of Service March 30, 2023 Assessment & Plan (1) Recurrent bacteremia: Plan 87 yo male with a past medical history of CKD, DVT, DM, HTN, pAfib on eliquis, CAD, BPH, GERD, CHF who presents to the hospital on 01/20/2023 for hypoglycemia, weakness and worsened AMS, recently admitted with E. faecalis bacteremia treated and readmitted on 03/18 after a fall. Patient is now bacteremia with E. faecalis, ID consulted. During his last admission, patient very weak and fell. The following day he c/o chest pain but did not want her to take him to the hospital or call EMS. He had episodes of confusion and disorientation before. On day of admit, he was found to be hypoglycemic. Notably large blisters on his legs since getting home from the hospital. She states one of the blisters got very large and popped and states that it drained pus. Recently discharged from hospital on 01/16, admitted with JUDI, dx with acute interstitial nephritis. On admission on 01/20, WBC normal, but patient found to be altered and concern for UTI. WBC normal, Cr 2.08 He was given Vancomycin and ceftriaxone. 01/20 Blood cultures E. faecalis, Amp sensitive 01/20 Ucx three types of organism all high counts probable skin gilma 2DE negative then. He was treated 2 weeks of ampicillin from first negative culture through 02/07/23. Patient was treated but had sudden fall and readmitted on 03/18. 03/18 GPC, Rapidly ID E. faecalis (no resistance). ID now consulted. Imaging: CT A/P wo contrast: Wall thickening of the urinary bladder measuring up to 7 mm, Multilevel posterior lumbar fusion and laminectomies, diverticulosis 03/22 GLO negative Left knee xray no effusion R ankle xray no effusion BL LE dopplers no dvt R foot xray Degenerative changes, with focal demineralization at the second digit proximal interphalangeal joint. #Efaecalis bacteremia, recurrent #CKD #b/l TKAs #lumbar hardware MICRO 01/20 Blood cultures E. faecalis, Amp sensitive 01/20 Ucx three types of organism all high counts probable skin gilma 01/22 blood culture E. faecalis Amp sensitive 01/24 Bcx no growth to date 03/18 Bcx E. faecalis, ampS 03/20 Bcx E. faecalis, ampS 03/22 sterile 03/25 NGTD Discussion Patient with recurrent E. faecalis bacteremia. Initially presented previously with UTI at prior hospitalization now a/w +cx 03/18 and 03/20. Hardware in spine, b/l TKAs. Imaging is limited b/c of CKD. However GLO is negative, Xray of knee with no effusion . BL LE doppler negative. Exam shows R foot swollen and tender to touch, suggesting possible source or seeding. A right foot xray shows degenerative changes with focal demineralization at the second digit proximal interphalangeal joint. No fracture. 03/24 evaluated by ortho and no concern for septic arthritis in knees or ankle. Id recommended MRI of right foot to r/o OM,but this was deferred, as pt and state that they would not pursue surgery if bone infection seen. RECOMMEND -Continue Ampicillin 2 g iv ( will increase from q12 to q 8hr based on current renal fxn ( cr 4.73 crcl 11), monitor CrCl closely if worsens will decrease dose. Adjust dosing based on renal function -Follow up blood cultures on 03/25 -Patient and deciding on GOC. Considering hospice. I anticipate he will need 6 weeks of Ampicillin given recurrence w/o sig source at this time, if he decides to continue therapy . dw team ID will continue to follow. Constantino Hanson MD, MPH Infectious Disease [facility], [facility] Call [phone] with questions Admission and Anticipated Discharge Date Admission Date: March 19, 2023 Subjective This patient recommendation is based on a telemedicine consult request which was completed asynchronously through chart review and information provided by the primary physician. The patient was not seen or examined today. The evaluation is consultative in nature and all patient care and treatment decisions can either be accepted or rejected by the patient's primary hospital-based treating physician using their own independent medical judgment for their patient. Time Spent Reviewing Chart: 21 - 30 minutes Pt is deciding on goals of care; contemplating snf or hospice Per d/w team, he would not pursue surgery if MRI foot showed OM. Cr down to 4.73 Results & Data Vital Signs (Past 12 Hours) Vital Signs Temp Pulse Resp BP Pulse Ox O2 Del Method 03/30/23 11:36 Room Air 03/30/23 07:59 37.2 C 73 16 149/76 H 96 Room Air Laboratory Results Short CBC 03/30/23 Range/Units 06:56 WBC 7.68 (4.8-10.8) K/ul Hgb 8.4 L (14.0-18.0) g/dl Hct 25.7 L (42.0-52.0) % Plt Count 268 (130-400) K/uL BMP 03/30/23 06:56 Sodium 141 Potassium 3.4 L Chloride 108 H Carbon Dioxide 26 BUN 41 H Creatinine 4.73 H* D Glucose 135 H Calcium 8.0 L Liver Function 03/30/23 Range/Units 06:56 Total Bilirubin 0.3 (0.2-1.0) mg/dl AST 11 L (13-39) U/L ALT 6 L (7-52) U/L Alkaline Phosphatase 112 H (34-104) U/L Albumin 2.2 L (3.4-5.0) gm/dl Diagnostic Findings Microbiology 03/25/23 09:08 Blood Aerobic Blood Culture - Final No growth in Aerobic bottle after 5 days. 03/25/23 09:08 Blood Anaerobic Blood Culture - Final No growth in Anaerobic bottle after 5 days. 03/25/23 09:03 Blood Aerobic Blood Culture - Final No growth in Aerobic bottle after 5 days. 03/25/23 09:03 Blood Anaerobic Blood Culture - Final No growth in Anaerobic bottle after 5 days. 03/20/23 19:32 Blood Aerobic Blood Culture - Final Enterococcus faecalis 03/20/23 19:32 Blood Anaerobic Blood Culture - Final No growth in Anaerobic bottle after 5 days. 03/22/23 09:31 Blood Aerobic Blood Culture - Final No growth in Aerobic bottle after 5 days. 03/22/23 09:31 Blood Anaerobic Blood Culture - Final No growth in Anaerobic bottle after 5 days. 03/22/23 09:36 Blood Aerobic Blood Culture - Final No growth in Aerobic bottle after 5 days. 03/22/23 09:36 Blood Anaerobic Blood Culture - Final No growth in Anaerobic bottle after 5 days. 03/20/23 19:30 Blood Aerobic Blood Culture - Final No growth in Aerobic bottle after 5 days. 03/20/23 19:30 Blood Anaerobic Blood Culture - Final No growth in Anaerobic bottle after 5 days. 03/18/23 20:17 Blood Aerobic Blood Culture - Final Enterococcus faecalis 03/18/23 20:17 Blood Anaerobic Blood Culture - Final Enterococcus faecalis 03/18/23 20:17 Blood Aerobic Blood Culture - Final Enterococcus faecalis 03/18/23 20:17 Blood Anaerobic Blood Culture - Final Enterococcus faecalis Foot X-Ray 03/27/23 14:41 XR foot RT 2V CLINICAL HISTORY: R 2nd digit pain TECHNIQUE: 3 views of the right foot were obtained. Comparison: Comparison is made to right foot radiographs 12/05/2021 and MRI right foot 12/15/2021 FINDINGS: Demineralization is seen at the second digit proximal interphalangeal joint. No focal erosion is definitely seen within the limitations of technique. No fracture is seen. Degenerative changes are seen throughout the foot. Soft tissue swelling is seen about the foot. Vascular calcifications are seen. IMPRESSION: Degenerative changes are seen with focal demineralization at the second digit proximal interphalangeal joint. If there is concern for osteomyelitis, MRI can be performed as a more sensitive modality. There is no radiographic evidence of acute fracture. ACT 112: Negative or not required by law. Electronically signed by: Dano West M.D. 03/27/2023 7:44 PM Medications Administered Home Medications Medication Instructions Recorded Confirmed Last Taken albuterol sulfate 90 mcg/actuation 2 puffs inhalation Q6H PRN 01/10/19 03/19/23 03/16/20 04:00 aerosol inhaler shortness of breath or wheezing levothyroxine 88 mcg tablet 75 mcg PO DAILYBB #90 tabs 01/10/19 03/19/23 12/29/22 potassium chloride 20 mEq 20 meq PO BID 01/10/19 03/19/23 12/29/22 08:00 tablet,extended release finasteride 5 mg tablet 5 mg PO HS 04/23/19 03/19/23 12/28/22 gabapentin 100 mg capsule See Rx Instructions .Route .COMPLEX 12/16/20 03/19/23 12/29/22 08:00 aspirin 81 mg tablet,delayed 81 mg PO DAILY 10/11/21 03/19/23 12/29/22 release pantoprazole 20 mg tablet,delayed 20 mg PO BID 02/07/22 03/19/23 12/29/22 08:00 release acetaminophen 500 mg tablet 1,000 mg PO Q6H PRN PAIN/FEVER 05/28/22 03/19/23 Unknown (Tylenol Extra Strength) clonazepam 1 mg tablet 1 mg PO BID 05/28/22 03/19/23 12/29/22 08:00 fluticasone 500 mcg-salmeterol 50 1 inh inhalation BID 05/28/22 03/19/23 12/29/22 08:00 mcg/dose blistr powdr for inhalation metoprolol tartrate 50 mg tablet 25 mg PO BID 05/28/22 03/19/23 12/29/22 08:00 multivitamin with minerals 1 tab PO DAILY 05/28/22 03/19/23 12/29/22 rosuvastatin 20 mg tablet 20 mg PO HS 05/28/22 03/19/23 12/28/22 tiotropium bromide 2.5 2 puff inhalation DAILY 05/28/22 03/19/23 12/29/22 mcg/actuation mist for inhalation vitamins A,C,D-yqyu-mgsiso 2,148 1 tab PO DAILY 05/28/22 03/19/23 12/29/22 mcg-113 mg-45 mg-17.4 mg tablet (PreserVision AREDS) apixaban 5 mg tablet (Eliquis) 2.5 mg PO Q12H 12/29/22 03/19/23 12/29/22 08:00 calcium citrate 315 mg-vitamin D3 2 tab PO DAILY 12/29/22 03/19/23 12/29/22 5 mcg (200 unit) tablet (Calcium Citrate + D) loratadine 10 mg tablet (Claritin) 10 mg PO DAILY PRN Congestion 12/29/22 03/19/23 Unknown tamsulosin 0.4 mg capsule (Flomax) 0.8 mg PO HS 12/29/22 03/19/23 12/28/22 insulin aspart U-100 100 unit/mL 14 unit subcut TIDWMEAL 03/19/23 03/19/23 Unknown subcutaneous solution (Novolog U-100 Insulin aspart) insulin glargine 100 unit/mL (3 26 unit subcut BID 03/19/23 03/19/23 Unknown mL) subcutaneous pen (Lantus Solostar U-100 Insulin) Active Medications Generic Name Dose Route Start Last Admin Trade Name Freq PRN Reason Stop Dose Admin Acetaminophen 650 mg 03/19/23 01:59 03/29/23 01:27 Acetaminophen 325 Mg Tab PO 04/18/23 01:58 650 mg Q4H PRN Administration Pain or Fever Apixaban 2.5 mg 03/22/23 21:00 03/30/23 08:32 Apixaban 2.5 Mg Tab PO 04/21/23 20:59 2.5 mg BID VANDANA Administration Aspirin 81 mg 03/19/23 09:00 03/30/23 08:32 Aspirin 81 Mg Ectab PO 04/18/23 08:59 81 mg DAILY VANDANA Administration Clonazepam 1 mg 03/19/23 09:00 03/30/23 08:41 Clonazepam 1 Mg Tab PO 04/18/23 08:59 1 mg BID VANDANA Administration Finasteride 5 mg 03/19/23 21:00 03/29/23 20:39 Finasteride 5 Mg Tab PO 04/18/23 20:59 5 mg HS VANDANA Administration Fluticasone/Vilanterol 1 puffs 03/19/23 09:00 03/30/23 08:33 Fluticasone/Vilanterol 100/25mcg 14 Puffs/Inhaler INH 04/18/23 08:59 1 puffs DAILY VANDANA Administration Gabapentin 100 mg 03/19/23 09:00 03/30/23 08:32 Gabapentin 100 Mg Cap PO 04/18/23 08:59 100 mg QAM VANDANA Administration Gabapentin 300 mg 03/19/23 21:00 03/29/23 20:39 Gabapentin 300 Mg Cap PO 04/18/23 20:59 300 mg HS VANDANA Administration Heparin Sodium (Beef Lung) 5 ml 03/27/23 15:13 03/30/23 01:45 Heparin 10 Unit/Ml 5 Ml Flush FLUSH 04/26/23 15:12 5 ml PRN PRN Administration Flush Ampicillin Sodium 2,000 mg/ 100 mls @ 200 mls/hr 03/27/23 02:00 03/30/23 14:45 Sodium Chloride IV 04/02/23 13:59 Infused Q12H VANDANA Infusion Insulin Aspart 0 units 03/19/23 07:30 03/30/23 13:06 Insulin Aspart Per Unit Charge SC 04/18/23 07:29 4 units ACHS VANDANA Administration Insulin Glargine 20 units 03/25/23 09:00 03/30/23 08:41 Lantus Per Unit Charge SQ 04/24/23 08:59 20 units QAM VANDANA Administration Levothyroxine Sodium 88 mcg 03/19/23 06:30 03/30/23 05:45 Levothyroxine Sodium 88 Mcg Tablet PO 04/18/23 06:29 88 mcg DAILYBB VANDANA Administration Metoprolol Tartrate 25 mg 03/19/23 09:00 03/30/23 08:32 Metoprolol Tartrate 25 Mg Tab PO 04/18/23 08:59 25 mg BID VANDANA Administration Miscellaneous 15 - 30 gm 03/19/23 01:59 03/20/23 07:33 Carbohydrates For Hypoglycemia PO 04/18/23 01:58 15 gm UD PRN Administration Hypoglycemia Protocol Oxycodone HCl 5 mg 03/30/23 12:00 03/30/23 12:05 Oxycodone Hcl Ir 5 Mg Tab (Immediate Release) PO 04/13/23 11:59 5 mg Q6 VANDANA Administration Pantoprazole Sodium 40 mg 03/19/23 09:00 03/30/23 08:32 Pantoprazole 40 Mg Tab PO 04/18/23 08:59 40 mg BID VANDANA Administration Rosuvastatin Calcium 10 mg 03/25/23 21:00 03/29/23 20:39 Rosuvastatin Calcium 10 Mg Tab PO 04/24/23 20:59 10 mg HS VANDANA Administration Tamsulosin HCl 0.8 mg 03/19/23 21:00 03/29/23 20:38 Tamsulosin Hcl 0.4 Mg Cap PO 04/18/23 20:59 0.8 mg HS VANDANA Administration Umeclidinium [place] 1 puffs 03/19/23 09:00 03/30/23 08:32 Umeclidinium [place] 62.5mcg/Blister 7 Puffs/Inhaler INH 04/18/23 08:59 1 puffs DAILY VANDANA Administration
[2023-03-30 20:08] LABS: Complement C3 128 mg/dL; Complement Total(CH50) 58 U/mL (31-60)
[2023-03-30] MEDS: TAMSULOSIN HCL 0.4 MG CAP PO SCH (20:25)
[2023-03-30] MEDS: FINASTERIDE 5 MG TAB PO SCH (20:26)
[2023-03-30] MEDS: GABAPENTIN 300 MG CAP PO SCH (20:26)
[2023-03-30] MEDS: ROSUVASTATIN CALCIUM 10 MG TAB PO SCH (20:26)
[2023-03-31] MEDS: oxyCODONE HCL IR 5 MG TAB (IMMEDIATE RELEASE) PO SCH ×2 (00:47→05:48)
[2023-03-31] MEDS: AMPICILLIN 2,000 MG in SODIUM CHLOR 0.9% MINI-B 100 ML IV SCH ×3 (05:39→22:42)
[2023-03-31] MEDS: LEVOTHYROXINE SODIUM 88 MCG TABLET PO SCH (05:48)
--- NOTE | 2023-03-31 07:06 | Hospitalist Progress Note ---
Date of Service March 31, 2023 Assessment & Plan (1) Hypotension: (2) Elevated troponin I level: (3) Recurrent bacteremia: (4) Anxiety: (5) Anemia of chronic disease: (6) Chronic kidney disease, stage 4 (severe): (7) Acute kidney injury superimposed on CKD: (8) Moderate calcific aortic stenosis: (9) Peripheral vascular disease: (10) Lower extremity edema: (11) Benign prostatic hyperplasia with urinary obstruction: (12) COPD (chronic obstructive pulmonary disease): (13) Hypothyroidism: (14) Hypertension: (15) Dyslipidemia: (16) Paroxysmal atrial fibrillation: (17) Vitamin D deficiency: (18) CAD (coronary artery disease): (19) GERD (gastroesophageal reflux disease): (20) CHF (congestive heart failure): (21) Diabetes: Plan 87 yo male with PMHx of CKD Stage 4 (previous admission with JUDI requiring temporary dialysis), DVT, DM2 insulin dependent, HTN, hypothyroidism, afib, CAD, BPH, GERD, recurrent bacteremia, aortic stenosis, anxiety, and CHF who presents with unwitnessed fall with concomitant bowel/bladder incontinence and associated hypotension. Today, scheduled his tylenol to be given routinely and decreased his oxy back to 2.5 mg as needed. 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 - blood cx + for Enterococcus Faecalis with repeat cx on 03/22 and 03/25 negative - UA negative, TTE negative for vegetations - PICC placed, plan for ampicillin for 2-3 mo, then will do repeat cx 1-2 weeks after finishing ABs - will continue to hold IV and oral iron in setting of bacteremia - PT/OT recommending SNF - ID noting foot xray negative for osteo of the 2nd digit; could consider MRI; pt and decline at this time - Continue IV ampicillin, #JUDI on CKD stage 4 Suspected ATN - Cr baseline 2, peak this admission 5.92, today 4.4 - Elevation in creatinine prerenal, likely secondary to dehydration vs ampicillin use - Continue to hold home Bumex - pt does not want dialysis at this time, - fluids discontinued to avoid fluid overload, maintaining negative fluid balance still - LE edema causing continuous discomfort, see comment above #Chronic HFpEF #Aortic stenosis #Peripheral edema #CAD/PVD/HLD #Afib -Continue to hold home Bumex -cont. metoprolol; eliquis -cont. statin -cont. ASA, statin #DM2 -Lantus + SSI #Diabetic neuropathy -cont. gabapentin #COPD -cont. home inhalers #Anxiety -cont. clonazepam #BPH -cont. finasteride, tamsulosin DVT ppx: Eliquis FEN/GI: DM2 Admission and Anticipated Discharge Date Admission Date: March 19, 2023 Supervising Physician Co-Signing Physician Notes ATTESTATION I also saw the patient and confirmed aguayo portions of the history and exam. I agree with the impression and plan in the resident documentation, and as summarized below. At the time of this morning's exam, the patient was sleeping; he awakens to voice and brief conversation, but quickly falls asleep. Patient's is at bedside. EXAM 130/67, 78, 16, 37.8, 93% Sleepy. No complaints at present; pain seems to be controlled. No obvious dyspnea; respirations nonlabored Heart rate regular rate and rhythm at present. DATA Labs Hemoglobin 9.0, WBC 8.84, platelet count 279 Sodium 141, potassium 3.6, BUN 39, creatinine 4.47 AST 12, ALT 5, alkaline phosphatase 126 IMPRESSION & PLAN Had lengthy conversation with regarding current plan and overall goals of care. Most of this time was spent discussing finding the balance between appropriate pain control and medication side effects. Ultimately, I think the plan is more of a palliative approach, likely hospice. Both the patient and and days previous were aiming for a placement and stent of physical therapy for overall strengthening as after his last discharge the patient had a few good weeks at home in terms of quality of life, strength, and independent ambulation. We discussed that while this approach was beneficial after his last admission, his overall condition has worsened and may not be appropriate or beneficial at present. We will add scheduled Tylenol We will decrease his oxycodone dose but perhaps increase the potential dosing frequency I think the plan is for placement at [facility], either with hospice at time of placement or after a short trial of PT. Much of this will depend on if we can achieve adequate pain control without oversedation. Both he and his have been fairly consistent with declining hemodialysis and any surgical intervention for the foot. Additional per resident documentation Subjective 87 yo male with PMHx of CKD Stage 4 (previous admission with JUDI requiring temporary dialysis), DVT, DM2 insulin dependent, HTN, hypothyroidism, afib, CAD, BPH, GERD, recurrent bacteremia, aortic stenosis, anxiety, and CHF who presents with fall. Today, pt is as sedated/drowsy as yesterday afternoon after getting the 5mg oxy this morning for pain. Discussion was had with the about plans going forward. She states that she would rather have his pain management adjusted today and see how he does tomorrow on less oxycodone because she realizes if he needs 5 mg and that that will sedate him to be comfortable, that will limit his ability to do rehab as initially desired. She also notes that he has been complaining that he does not feel good and that he does not want to eat since yesterday afternoon. No further questions or complaints at this time. Review of Systems Review of Systems: Per HPI. Physical Exam Physical Exam: General:Drowsy and grumbling, no acute distress, HEENT: Normocephalic, Cardio: Regular rate and rhythm, LE pitting edema b/l once again noted Resp:Lungs clear to auscultation b/l, Skin: Warm, pink, dry, Results & Data Results & Data Vital Signs (Past 12 Hours) Vital Signs Temp Pulse Resp BP Pulse Ox O2 Del Method 03/30/23 20:00 Room Air 03/30/23 19:30 36.4 C L 70 18 136/82 94 Room Air Resident Activity Tracking Resident Involvement: Resident Care Provided Care Provided: Adult Hospital Medicine (12) COPD (chronic obstructive pulmonary disease) COPD type: unspecified COPD Qualified Code(s): J44.9 - Chronic obstructive pulmonary disease, unspecified (13) Hypothyroidism Hypothyroidism type: unspecified Qualified Code(s): E03.9 - Hypothyroidism, unspecified (14) Hypertension Hypertension type: essential hypertension Qualified Code(s): I10 - Essential (primary) hypertension (18) CAD (coronary artery disease) Associated angina: without angina Coronary Disease-Associated Artery/Lesion type: [place] artery [place] vs. transplanted heart: [place] heart Qualified Code(s): I25.10 - Atherosclerotic heart disease of [place] coronary artery without angina pectoris (19) GERD (gastroesophageal reflux disease) Esophagitis presence: esophagitis presence not specified Qualified Code(s): K21.9 - Gastro-esophageal reflux disease without esophagitis (20) CHF (congestive heart failure) Heart failure chronicity: unspecified Heart failure type: unspecified Qualified Code(s): I50.9 - Heart failure, unspecified (21) Diabetes Diabetes mellitus complication status: with hyperglycemia Diabetes mellitus mcfp insulin use: with mcfp use Diabetes mellitus type: type 2 Quali fied Code(s): E11.65 - Type 2 diabetes mellitus with hyperglycemia; Z79.4 - hide trimmer (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
[2023-03-31 07:53] LABS: Basophils # (auto) 0.05 K/uL (0.00-0.20); Basophils % (auto) 0.6 %; Eosinophils # (auto) 0.21 K/uL (0.00-0.50); Eosinophils % (auto) 2.4 %; Hematocrit (blood only) 28.5 % (42.0-52.0); Immature Granulocytes # (auto) 0.05 K/uL (0.01-0.20); Immature Granulocytes % (auto) 0.6 %; Lymphocytes # (auto) 1.74 K/uL (1.20-3.40); Lymphocytes % (auto) 19.7 %; Mean Corpuscular Hemoglobin 29.7 pg (25.0-34.0); Mean Corpuscular Hgb Conc 31.6 g/dL (32.0-36.0); Mean Corpuscular Volume 94.1 fL (80.0-100.0); Mean Platelet Volume 9.1 fL (9.4-12.4); Monocytes # (auto) 0.59 K/uL (0.11-0.59); Monocytes % (auto) 6.7 %; Platelet Count 279 K/uL (130-400); RDW Coefficient of Variation 15.2 % (11.5-14.5); RDW Standard Deviation 51.7 fL (36.4-46.3); Red Blood Count 3.03 M/uL (4.70-6.10); White Blood Count 8.84 K/ul (4.8-10.8)
[2023-03-31 08:03] LABS: Albumin Globulin Ratio 0.6 (0.9-2); Albumin Level 2.2 gm/dl (3.4-5.0); BUN Creatinine Ratio 8.7 (10-20); Bilirubin,Total 0.3 mg/dl (0.2-1.0); Calcium 8.1 mg/dl (8.6-10.3); Creatinine Clr Calc Pharmacy 12.4 ml/min; Est GFR (African American) 12.8 ml/min; Globulin 3.6 gm/dl (2.5-4.0); Potassium 3.6 mmol/L (3.5-5.1); Total Protein 5.8 gm/dl (6.0-8.3)
[2023-03-31] MEDS: INSULIN ASPART PER UNIT CHARGE SC SCH ×4 (08:30→20:55)
[2023-03-31] MEDS: PANTOprazole 40 MG TAB PO SCH ×2 (08:56→19:58)
[2023-03-31] MEDS: clonazePAM 1 MG TAB PO SCH ×2 (08:56→20:01)
[2023-03-31] MEDS: METOPROLOL TARTRATE 25 MG TAB PO SCH ×2 (08:57→19:56)
[2023-03-31] MEDS: UMECLIDINIUM BROMIDE 62.5MCG/BLISTER 7 PUFFS/INHALER INH SCH (08:57)
[2023-03-31] MEDS: APIXABAN 2.5 MG TAB PO SCH ×2 (08:57→19:57)
[2023-03-31] MEDS: GABAPENTIN 100 MG CAP PO SCH (08:57)
[2023-03-31] MEDS: ASPIRIN 81 MG ECTAB PO SCH (08:57)
[2023-03-31] MEDS: FLUTICASONE/VILANTEROL 100/25MCG 14 PUFFS/INHALER INH SCH (08:57)
--- NOTE | 2023-03-31 09:28 | Nephrology Progress Note ---
Date of Service March 31, 2023 Assessment & Plan (1) Acute kidney injury superimposed on CKD: Plan: Creatinine improving. Electrolytes normal. Volume status acceptable. Clinical presentation suggestive of hemodynamic changes with prerenal JUDI and superimposed ATN. Medications are currently appropriately dosed for kidney function. Kidneys are recovering. No additional recommendations at this time. Nephrology will sign off. Outpatient follow up with Dr. Dixon can be scheduled at discharge. (2) Chronic kidney disease, stage 4 (severe): Plan: Baseline creatinine 1.6-2.0 mg/dL. CKD III-IV A3. Kidney dysfunction advanced due to calcific vascular disease and multiple episodes of JUDI. Chang has established that dialysis will not be considered part of the care plan. (3) Recurrent bacteremia: Plan: GLO negative for vegetation. Remains on ampicillin per ID recs. (4) Anemia of chronic disease: Plan: H/H stable. No reported symptoms. Completed Venofer 200 mg IV x 2 doses. Epogen 98437 units provided 03/27. Admission and Anticipated Discharge Date Admission Date: March 19, 2023 Subjective No acute events overnight. No complaints this morning. I reviewed the plan of care with Dr. Nunez this morning. Review of Systems Review of Systems: All systems reviewed & are unremarkable except as noted in HPI & below Physical Exam Constitutional: + frail appearing; no acute distress Eyes: + anicteric sclerae; no corneal abnormal ity ENMT: Mouth: no oral mucosal abnormality and oral mucous membranes not dry Neck: normal visual inspection, trachea midline and + thick neck Respiratory: normal respiratory effort Auscultation: lungs clear to auscultation bilaterally Cardiovascular: Rate/Rhythm: regular rate Heart Sounds: normal S1, normal S2 and + murmur Extremities: + edema Musculoskeletal: Extremities: no cyanosis and no clubbing Skin: normal turgor; no jaundice Neurologic: Motor/Sensory: no tremor and no asterixis Psychiatric: Orientation: alert and oriented x 3 Results & Data Vital Signs (Past 12 Hours) Vital Signs Temp Pulse Resp BP Pulse Ox O2 Del Method 03/31/23 07:21 37.8 C H 78 16 130/67 93 Room Air Laboratory Results Laboratory Results - last 24 hr 03/26/23 03/30/23 03/30/23 08:13 11:33 16:44 WBC RBC Hgb Hct MCV MCH MCHC RDW Std Deviation RDW Coeff of Adrian Plt Count MPV Immature Gran % (Auto) Neut % (Auto) Lymph % (Auto) Gre[place] % (Auto) Eos % (Auto) Baso % (Auto) Neut # (Auto) Lymph # (Auto) [place] # (Auto) Eos # (Auto) Baso # (Auto) Immature Gran # (Auto) Sodium Potassium Chloride Carbon Dioxide Anion Gap BUN Creatinine Est Cr Clr Drug Dosing Est GFR ( Amer) Est GFR (Non-Af Amer) BUN/Creatinine Ratio Glucose POC Glucose 176 H 125 H Calcium Total Bilirubin AST ALT Alkaline Phosphatase Total Protein Albumin Globulin Albumin/Globulin Ratio Complement C3 128 Complement C4 24 Tot Complement (CH50) 58 03/30/23 03/31/23 03/31/23 20:45 07:13 07:51 WBC 8.84 RBC 3.03 L Hgb 9.0 L Hct 28.5 L MCV 94.1 MCH 29.7 MCHC 31.6 L RDW Std Deviation 51.7 H RDW Coeff of Adrian 15.2 H Plt Count 279 MPV 9.1 L Immature Gran % (Auto) 0.6 Neut % (Auto) 70.0 Lymph % (Auto) 19.7 Greer % (Auto) 6.7 Eos % (Auto) 2.4 Baso % (Auto) 0.6 Neut # (Auto) 6.20 Lymph # (Auto) 1.74 Greer # (Auto) 0.59 Eos # (Auto) 0.21 Baso # (Auto) 0.05 Immature Gran # (Auto) 0.05 Sodium 141 Potassium 3.6 Chloride 109 H Carbon Dioxide 24 Anion Gap 8 BUN 39 H Creatinine 4.47 H Est Cr Clr Drug Dosing 12.4 Est GFR ( Amer) 12.8 Est GFR (Non-Af Amer) 11.0 BUN/Creatinine Ratio 8.7 L Glucose 107 H POC Glucose 122 H 102 H Calcium 8.1 L Total Bilirubin 0.3 AST 12 L ALT 5 L Alkaline Phosphatase 126 H Total Protein 5.8 L Albumin 2.2 L Globulin 3.6 Albumin/Globulin Ratio 0.6 L Complement C3 Complement C4 Tot Complement (CH50) PG Care Time/CCT Total # of Minutes Spent Total Time Spent with Patient: Total time spent is greater than 50% in coordination of care (as documented) at patient's floor/unit and/or counseling patient: Coding Level of Care Code 06726 SUB INP/OBS CARE 3/50MIN Diagnoses Acute kidney injury superimposed on CKD N17.9; N18.9 Chronic kidney disease, stage 4 (severe) N18.4 Recurrent bacteremia R78.81 Anemia of chronic disease D63.8
[2023-03-31] MEDS: LANTUS PER UNIT CHARGE SQ SCH (09:59)
[2023-03-31] MEDS ORDERED: ACETAMINOPHEN 325 MG TAB PO SCH (11:46)
[2023-03-31] MEDS: ACETAMINOPHEN 325 MG TAB PO SCH ×2 (13:32→17:37)
--- NOTE | 2023-03-31 15:45 | Infectious Disease Progress Nt ---
Date of Service March 31, 2023 Assessment & Plan (1) Recurrent bacteremia: Plan 87 yo male with a past medical history of CKD, DVT, DM, HTN, pAfib on eliquis, CAD, BPH, GERD, CHF who presents to the hospital on 01/20/2023 for hypoglycemia, weakness and worsened AMS, recently admitted with E. faecalis bacteremia treated and readmitted on 03/18 after a fall. Patient is now bacteremia with E. faecalis, ID consulted. During his last admission, patient very weak and fell. The following day he c/o chest pain but did not want her to take him to the hospital or call EMS. He had episodes of confusion and disorientation before. On day of admit, he was found to be hypoglycemic. Notably large blisters on his legs since getting home from the hospital. She states one of the blisters got very large and popped and states that it drained pus. Recently discharged from hospital on 01/16, admitted with JUDI, dx with acute interstitial nephritis. On admission on 01/20, WBC normal, but patient found to be altered and concern for UTI. WBC normal, Cr 2.08 He was given Vancomycin and ceftriaxone. 01/20 Blood cultures E. faecalis, Amp sensitive 01/20 Ucx three types of organism all high counts probable skin gilma 2DE negative then. He was treated 2 weeks of ampicillin from first negative culture through 02/07/23. Patient was treated but had sudden fall and readmitted on 03/18. 03/18 GPC, Rapidly ID E. faecalis (no resistance). ID now consulted. Imaging: CT A/P wo contrast: Wall thickening of the urinary bladder measuring up to 7 mm, Multilevel posterior lumbar fusion and laminectomies, diverticulosis 03/22 GLO negative Left knee xray no effusion R ankle xray no effusion BL LE dopplers no dvt R foot xray Degenerative changes, with focal demineralization at the second digit proximal interphalangeal joint. #Efaecalis bacteremia, recurrent #CKD #b/l TKAs #lumbar hardware # Cephalosporin allergy; unknown rxn # Cipro Allergy;Unknown rxn MICRO 01/20 Blood cultures E. faecalis, Amp sensitive 01/20 Ucx three types of organism all high counts probable skin gilma 01/22 blood culture E. faecalis Amp sensitive 01/24 Bcx no growth to date 03/18 Bcx E. faecalis, ampS 03/20 Bcx E. faecalis, ampS 03/22 sterile 03/25 sterile Discussion Patient with recurrent E. faecalis bacteremia. Initially presented previously with UTI at prior hospitalization now a/w +cx 03/18 and 03/20. Hardware in spine, b/l TKAs. Imaging is limited b/c of CKD. However GLO is negative, Xray of knee with no effusion . BL LE doppler negative. Exam shows R foot swollen and tender to touch, suggesting possible source or seeding. A right foot xray shows degenerative changes with focal demineralization at the second digit proximal interphalangeal joint. No fracture. 03/24 evaluated by ortho and no concern for septic arthritis in knees or ankle. Id recommended MRI of right foot to r/o OM,but this was deferred, as pt and state that they would not pursue surgery if bone infection seen. RECOMMEND -Continue Ampicillin 2 g iv q 8hr based on current renal fxn ( cr 4.47 crcl 12 ), monitor CrCl closely if worsens, DOSE Should be adjusted. Adjust dosing based on renal function -Patient and deciding on GOC. There were considering hospice. Complete 6 weeks of renally dosed Ampicillin given recurrence w/o sig source at this time, EOT 06/03 On abx weeks cbc with diff, bmp, LFT. Adjust young of ampicillin based on renal function Please set him up with local ID outpatient, He ma need supressive abx with amoxicillin post therapy ID will sign off. Call with questions Constantino Hanson MD, MPH Infectious Disease [facility], [facility] Call [phone] with questions Admission and Anticipated Discharge Date Admission Date: March 19, 2023 Subjective Subsequent visit was provided via telemedicine using two-way real-time interactive telecommunication between the patient and the telemedicine provider. For the duration of the visit, the provider was performing the assessment from a different facility than the patient. This includesuse of bluetooth stethoscope forauscultationperformed by the telepresenter that the telemedicine provider can hear if described in the physical exam. Sample Clerk contact information: Please call [facility] Call Center [phone]. (Phone Number For Physician Use Only) After establishing a telemedicine visit, patient was: Patient was verified with two unique identifiers Time Spent with Patient: Subsequent => 25 min Drowsy, sleepig, states she feels it is from the oxycodone he received cr 4.14 ecrcl 12 Physical Exam Physical Exam: NAd Supple neck No increased wrk of breathing Abd-Soft, NT - no jeronimo Ext BL LE edema L>R, , no knee effusions. Results & Data Vital Signs (Past 12 Hours) Vital Signs Temp Pulse Resp BP Pulse Ox O2 Del Method 03/31/23 15:09 36.8 C 72 16 137/70 94 Room Air 03/31/23 10:55 Room Air 03/31/23 07:21 37.8 C H 78 16 130/67 93 Room Air Laboratory Results Short CBC 03/31/23 Range/Units 07:13 WBC 8.84 (4.8-10.8) K/ul Hgb 9.0 L (14.0-18.0) g/dl Hct 28.5 L (42.0-52.0) % Plt Count 279 (130-400) K/uL BMP 03/31/23 07:13 Sodium 141 Potassium 3.6 Chloride 109 H Carbon Dioxide 24 BUN 39 H Creatinine 4.47 H Glucose 107 H Calcium 8.1 L Liver Function 03/31/23 Range/Units 07:13 Total Bilirubin 0.3 (0.2-1.0) mg/dl AST 12 L (13-39) U/L ALT 5 L (7-52) U/L Alkaline Phosphatase 126 H (34-104) U/L Albumin 2.2 L (3.4-5.0) gm/dl Diagnostic Findings Microbiology 03/25/23 09:08 Blood Aerobic Blood Culture - Final No growth in Aerobic bottle after 5 days. 03/25/23 09:08 Blood Anaerobic Blood Culture - Final No growth in Anaerobic bottle after 5 days. 03/25/23 09:03 Blood Aerobic Blood Culture - Final No growth in Aerobic bottle after 5 days. 03/25/23 09:03 Blood Anaerobic Blood Culture - Final No growth in Anaerobic bottle after 5 days. 03/20/23 19:32 Blood Aerobic Blood Culture - Final Enterococcus faecalis 03/20/23 19:32 Blood Anaerobic Blood Culture - Final No growth in Anaerobic bottle after 5 days. 03/22/23 09:31 Blood Aerobic Blood Culture - Final No growth in Aerobic bottle after 5 days. 03/22/23 09:31 Blood Anaerobic Blood Culture - Final No growth in Anaerobic bottle after 5 days. 03/22/23 09:36 Blood Aerobic Blood Culture - Final No growth in Aerobic bottle after 5 days. 03/22/23 09:36 Blood Anaerobic Blood Culture - Final No growth in Anaerobic bottle after 5 days. 03/20/23 19:30 Blood Aerobic Blood Culture - Final No growth in Aerobic bottle after 5 days. 03/20/23 19:30 Blood Anaerobic Blood Culture - Final No growth in Anaerobic bottle after 5 days. 03/18/23 20:17 Blood Aerobic Blood Culture - Final Enterococcus faecalis 03/18/23 20:17 Blood Anaerobic Blood Culture - Final Enterococcus faecalis 03/18/23 20:17 Blood Aerobic Blood Culture - Final Enterococcus faecalis 03/18/23 20:17 Blood Anaerobic Blood Culture - Final Enterococcus faecalis Medications Administered Home Medications Medication Instructions Recorded Confirmed Last Taken albuterol sulfate 90 mcg/actuation 2 puffs inhalation Q6H PRN 01/10/19 03/19/23 03/16/20 04:00 aerosol inhaler shortness of breath or wheezing levothyroxine 88 mcg tablet 75 mcg PO DAILYBB #90 tabs 01/10/19 03/19/23 12/29/22 potassium chloride 20 mEq 20 meq PO BID 01/10/19 03/19/23 12/29/22 08:00 tablet,extended release finasteride 5 mg tablet 5 mg PO HS 04/23/19 03/19/23 12/28/22 gabapentin 100 mg capsule See Rx Instructions .Route .COMPLEX 12/16/20 03/19/23 12/29/22 08:00 aspirin 81 mg tablet,delayed 81 mg PO DAILY 10/11/21 03/19/23 12/29/22 release pantoprazole 20 mg tablet,delayed 20 mg PO BID 02/07/22 03/19/23 12/29/22 08:00 release acetaminophen 500 mg tablet 1,000 mg PO Q6H PRN PAIN/FEVER 05/28/22 03/19/23 Unknown (Tylenol Extra Strength) clonazepam 1 mg tablet 1 mg PO BID 05/28/22 03/19/23 12/29/22 08:00 fluticasone 500 mcg-salmeterol 50 1 inh inhalation BID 05/28/22 03/19/23 12/29/22 08:00 mcg/dose blistr powdr for inhalation metoprolol tartrate 50 mg tablet 25 mg PO BID 12/3103/19/23 12/29/22 08:00 multivitamin with minerals 1 tab PO DAILY 05/28/22 03/19/23 12/29/22 rosuvastatin 20 mg tablet 20 mg PO HS 05/28/22 03/19/23 12/28/22 tiotropium bromide 2.5 2 puff inhalation DAILY 05/28/22 03/19/23 12/29/22 mcg/actuation mist for inhalation vitamins A,C,X-rlst-hudptk 2,148 1 tab PO DAILY 05/28/22 03/19/23 12/29/22 mcg-113 mg-45 mg-17.4 mg tablet (PreserVision AREDS) apixaban 5 mg tablet (Eliquis) 2.5 mg PO Q12H 12/29/22 03/19/23 12/29/22 08:00 calcium citrate 315 mg-vitamin D3 2 tab PO DAILY 12/29/22 03/19/23 12/29/22 5 mcg (200 unit) tablet (Calcium Citrate + D) loratadine 10 mg tablet (Claritin) 10 mg PO DAILY PRN Congestion 12/29/22 03/19/23 Unknown tamsulosin 0.4 mg capsule (Flomax) 0.8 mg PO HS 12/29/22 03/19/23 12/28/22 insulin aspart U-100 100 unit/mL 14 unit subcut TIDWMEAL 03/19/23 03/19/23 Unknown subcutaneous solution (Novolog U-100 Insulin aspart) insulin glargine 100 unit/mL (3 26 unit subcut BID 03/19/23 03/19/23 Unknown mL) subcutaneous pen (Lantus Solostar U-100 Insulin) Active Medications Generic Name Dose Route Start Last Admin Trade Name Freq PRN Reason Stop Dose Admin Acetaminophen 650 mg 03/31/23 12:00 03/31/23 13:32 Acetaminophen 325 Mg Tab PO 04/30/23 11:59 650 mg Q6H VANDANA Administration Apixaban 2.5 mg 03/22/23 21:00 03/31/23 08:57 Apixaban 2.5 Mg Tab PO 04/21/23 20:59 2.5 mg BID VANDANA Administration Aspirin 81 mg 03/19/23 09:00 03/31/23 08:57 Aspirin 81 Mg Ectab PO 04/18/23 08:59 81 mg DAILY VANDANA Administration Clonazepam 1 mg 03/19/23 09:00 03/31/23 08:56 Clonazepam 1 Mg Tab PO 04/18/23 08:59 1 mg BID VANDANA Administration Finasteride 5 mg 03/19/23 21:00 03/30/23 20:26 Finasteride 5 Mg Tab PO 04/18/23 20:59 5 mg HS VANDANA Administration Fluticasone/Vilanterol 1 puffs 03/19/23 09:00 03/31/23 08:57 Fluticasone/Vilanterol 100/25mcg 14 Puffs/Inhaler INH 04/18/23 08:59 1 puffs DAILY VANDANA Administration Gabapentin 100 mg 03/19/23 09:00 03/31/23 08:57 Gabapentin 100 Mg Cap PO 04/18/23 08:59 100 mg QAM VANDANA Administration Gabapentin 300 mg 03/19/23 21:00 03/30/23 20:26 Gabapentin 300 Mg Cap PO 04/18/23 20:59 300 mg HS VANDANA Administration Heparin Sodium (Beef Lung) 5 ml 03/27/23 15:13 03/30/23 01:45 Heparin 10 Unit/Ml 5 Ml Flush FLUSH 04/26/23 15:12 5 ml PRN PRN Administration Flush Ampicillin Sodium 2,000 mg/ 100 mls @ 200 mls/hr 03/30/23 22:00 03/31/23 14:05 Sodium Chloride IV 04/13/23 21:59 Infused Q8H VANDANA Infusion Insulin Aspart 0 units 03/19/23 07:30 03/31/23 12:56 Insulin Aspart Per Unit Charge SC 04/18/23 07:29 Not Given ACHS VANDANA Insulin Glargine 20 units 03/25/23 09:00 03/31/23 09:59 Lantus Per Unit Charge SQ 04/24/23 08:59 20 units QAM VANDANA Administration Levothyroxine Sodium 88 mcg 03/19/23 06:30 03/31/23 05:48 Levothyroxine Sodium 88 Mcg Tablet PO 04/18/23 06:29 88 mcg DAILYBB VANDANA Administration Metoprolol Tartrate 25 mg 03/19/23 09:00 03/31/23 08:57 Metoprolol Tartrate 25 Mg Tab PO 04/18/23 08:59 25 mg BID VANDANA Administration Miscellaneous 15 - 30 gm 03/19/23 01:59 03/20/23 07:33 Carbohydrates For Hypoglycemia PO 04/18/23 01:58 15 gm UD PRN Administration Hypoglycemia Protocol Pantoprazole Sodium 40 mg 03/19/23 09:00 03/31/23 08:56 Pantoprazole 40 Mg Tab PO 04/18/23 08:59 40 mg BID VANDANA Administration Rosuvastatin Calcium 10 mg 03/25/23 21:00 03/30/23 20:26 Rosuvastatin Calcium 10 Mg Tab PO 04/24/23 20:59 10 mg HS VANDANA Administration Tamsulosin HCl 0.8 mg 03/19/23 21:00 03/30/23 20:25 Tamsulosin Hcl 0.4 Mg Cap PO 04/18/23 20:59 0.8 mg HS VANDANA Administration Umeclidinium [place] 1 puffs 03/19/23 09:00 03/31/23 08:57 Umeclidinium [place] 62.5mcg/Blister 7 Puffs/Inhaler INH 04/18/23 08:59 1 p uffs DAILY VANDANA Administration
[2023-03-31] MEDS: oxyCODONE HCL IR 5 MG TAB (IMMEDIATE RELEASE) PO PRN (17:05)
[2023-03-31] MEDS: ROSUVASTATIN CALCIUM 10 MG TAB PO SCH (19:56)
[2023-03-31] MEDS: GABAPENTIN 300 MG CAP PO SCH (19:56)
[2023-03-31] MEDS: TAMSULOSIN HCL 0.4 MG CAP PO SCH (19:56)
[2023-03-31] MEDS: FINASTERIDE 5 MG TAB PO SCH (19:57)
[2023-04-01] MEDS: ACETAMINOPHEN 325 MG TAB PO SCH ×5 (00:07→23:34)
[2023-04-01] MEDS: AMPICILLIN 2,000 MG in SODIUM CHLOR 0.9% MINI-B 100 ML IV SCH ×3 (05:19→21:09)
[2023-04-01] MEDS: oxyCODONE HCL IR 5 MG TAB (IMMEDIATE RELEASE) PO PRN ×2 (05:32→14:18)
[2023-04-01] MEDS: LEVOTHYROXINE SODIUM 88 MCG TABLET PO SCH (05:35)
--- NOTE | 2023-04-01 06:58 | Hospitalist Progress Note ---
Date of Service April 01, 2023 Assessment & Plan (1) Hypotension: (2) Elevated troponin I level: (3) Recurrent bacteremia: (4) Anxiety: (5) Anemia of chronic disease: (6) Chronic kidney disease, stage 4 (severe): (7) Acute kidney injury superimposed on CKD: (8) Moderate calcific aortic stenosis: (9) Peripheral vascular disease: (10) Lower extremity edema: (11) Benign prostatic hyperplasia with urinary obstruction: (12) COPD (chronic obstructive pulmonary disease): (13) Hypothyroidism: (14) Hypertension: (15) Dyslipidemia: (16) Paroxysmal atrial fibrillation: (17) Vitamin D deficiency: (18) CAD (coronary artery disease): (19) GERD (gastroesophageal reflux disease): (20) CHF (congestive heart failure): (21) Diabetes: Plan 87 yo male with PMHx of CKD Stage 4 (previous admission with [facility] requiring temporary dialysis), DVT, DM2 insulin dependent, HTN, hypothyroidism, afib, CAD, BPH, GERD, recurrent bacteremia, aortic stenosis, anxiety, and CHF who presents with unwitnessed fall with concomitant bowel/bladder incontinence and associated hypotension. Today, he appears as sedated as yesterday when seen in the morning even with transition off scheduled oxy and back to 2.5 mg prn. today was present and is in favor of [facility] with hospice at this point so comfort can be emphasized. 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 - blood cx + for Enterococcus Faecalis with repeat cx on 03/22 and 03/25 negative - UA negative, TTE negative for vegetations - PICC placed, plan for ampicillin for 2-3 mo, then will do repeat cx 1-2 weeks after finishing ABs - will continue to hold IV and oral iron in setting of bacteremia - PT/OT recommending SNF - ID noting foot xray negative for osteo of the 2nd digit; could consider MRI; pt and decline at this time - Continue IV ampicillin, #JUDI on CKD stage 4 Suspected ATN - Cr baseline 2, peak this admission 5.92, today 4.4 - Elevation in creatinine prerenal, likely secondary to dehydration vs ampicillin use - Continue to hold home Bumex - pt does not want dialysis at this time, - fluids discontinued to avoid fluid overload, maintaining negative fluid balance still - LE edema causing continuous discomfort, see comment above #Chronic HFpEF #Aortic stenosis #Peripheral edema #CAD/PVD/HLD #Afib -Continue to hold home Bumex -cont. metoprolol; eliquis -cont. statin -cont. ASA, statin #DM2 -Lantus + SSI #Diabetic neuropathy -cont. gabapentin #COPD -cont. home inhalers #Anxiety -cont. clonazepam #BPH -cont. finasteride, tamsulosin DVT ppx: Eliquis FEN/GI: DM2 Admission and Anticipated Discharge Date Admission Date: March 19, 2023 Supervising Physician Co-Signing Physician Notes ATTESTATION I also saw the patient and confirmed aguayo portions of the history and exam. I agree with the impression and plan in the resident documentation, and as summarized below. The patient is sleeping through the majority of today's visit. Much of the time spent at his bedside talking with his with regards to goals of care. Unfortunatly, even with the decreased dosing of pain medication, he remains quite sleepy. When he is awake, he has pain with simple position changes. EXAM 150/64, 65, 16 Sleepy. No complaints at present; pain seems to be controlled. No obvious dyspnea; respirations nonlabored Heart rate regular rate and rhythm at present. DATA Labs Hemoglobin 9.5, WBC 9.5 Sodium 142, potassium 3.5, BUN 37, creatinine 4.14 IMPRESSION & PLAN After discussion with , comfortable with placement with hospice services. Discussed that hospice could be provided both at home and in the facility; at this point, leaning towards facility as patient would likely need 24-hour care in terms of his ADLs. We will continue work with case management as we move towards this plan. Continue scheduled Tylenol Oxycodone as needed Additional per resident documentation Subjective 87 yo male with PMHx of CKD Stage 4 (previous admission with [facility] requiring temporary dialysis), DVT, DM2 insulin dependent, HTN, hypothyroidism, afib, CAD, BPH, GERD, recurrent bacteremia, aortic stenosis, anxiety, and CHF who presents with fall. Today, when pt was seen in the morning, his was not present and he appears about as sedated/drowsy as yesterday. He was mumbling and difficult to understand but seemed to deny pain anywhere. Unable to obtain much from him at this time, but not in acute distress. Review of Systems Review of Systems: Per HPI. Physical Exam Physical Exam: General:Drowsy and mumbling, no acute distress, HEENT: Normocephalic, Cardio: Regular rate and rhythm, LE pitting edema b/l once again noted Resp:Lungs clear to auscultation b/l but diminished GI: Abd nontender and soft with quiet bowel sounds Skin: Warm, pink, dry, Results & Data Results & Data Vital Signs (Past 12 Hours) Vital Signs Temp Pulse Resp BP Pulse Ox O2 Del Method 04/01/23 00:20 Room Air 03/31/23 19:23 36.7 C 67 18 156/75 H 93 Room Air Resident Activity Tracking Resident Involvement: Resident Care Provided Care Provided: Adult Hospital Medicine (12) COPD (chronic obstructive pulmonary disease) COPD type: unspecified COPD Qualified Code(s): J44.9 - Chronic obstructive pulmonary disease, unspecified (13) Hypothyroidism Hypothyroidism type: unspecified Qualified Code(s): E03.9 - Hypothyroidism, unspecified (14) Hypertension Hypertension type: essential hypertension Qualified Code(s): I10 - Essential (primary) hypertension (18) CAD (coronary artery disease) Associated angina: without angina Coronary Disease-Associated Artery/Lesion type: [place] artery [place] vs. transplanted heart: [place] heart Qualified Code(s): I25.10 - Atherosclerotic heart disease of [place] coronary artery without angina pectoris (19) GERD (gastroesophageal reflux disease) Esophagitis presence: esophagitis presence not specified Qualified Code(s): K21.9 - Gastro-esophageal reflux disease without esophagitis (20) CHF (congestive heart failure) Heart failure chronicity: unspecified Heart failure type: unspecified Qualified Code(s): I50.9 - Heart failure, unspecified (21) Diabetes Diabetes mellitus complication status: with hyperglycemia Diabetes mellitus retirement insulin use: with termite control servicer use Diabetes mellitus type: type 2 Qualified Code(s): E11.65 - Type 2 diabetes mellitus with hyperglycemia; Z79.4 - termite helper (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
[2023-04-01 07:42] LABS: Basophils # (auto) 0.04 K/uL (0.00-0.20); Basophils % (auto) 0.4 %; Eosinophils # (auto) 0.09 K/uL (0.00-0.50); Eosinophils % (auto) 0.9 %; Hemoglobin 9.5 g/dl (14.0-18.0); Immature Granulocytes # (auto) 0.21 K/uL (0.01-0.20); Immature Granulocytes % (auto) 2.2 %; Lymphocytes # (auto) 1.21 K/uL (1.20-3.40); Lymphocytes % (auto) 12.7 %; Mean Corpuscular Hemoglobin 30.1 pg (25.0-34.0); Mean Corpuscular Hgb Conc 32.8 g/dL (32.0-36.0); Mean Corpuscular Volume 91.8 fL (80.0-100.0); Mean Platelet Volume 9.1 fL (9.4-12.4); Monocytes % (auto) 6.3 %; Neutrophils # (auto) 7.35 K/uL (1.40-6.50); Neutrophils % (auto) 77.5 %; Platelet Count 279 K/uL (130-400); RDW Coefficient of Variation 14.9 % (11.5-14.5); RDW Standard Deviation 49.9 fL (36.4-46.3); Red Blood Count 3.16 M/uL (4.70-6.10)
[2023-04-01] MEDS: clonazePAM 1 MG TAB PO SCH ×2 (08:01→19:25)
[2023-04-01] MEDS: APIXABAN 2.5 MG TAB PO SCH ×2 (08:01→19:26)
[2023-04-01] MEDS: FLUTICASONE/VILANTEROL 100/25MCG 14 PUFFS/INHALER INH SCH (08:01)
[2023-04-01] MEDS: METOPROLOL TARTRATE 25 MG TAB PO SCH ×2 (08:01→19:27)
[2023-04-01] MEDS: PANTOprazole 40 MG TAB PO SCH ×2 (08:01→19:26)
[2023-04-01] MEDS: GABAPENTIN 100 MG CAP PO SCH (08:01)
[2023-04-01] MEDS: ASPIRIN 81 MG ECTAB PO SCH (08:01)
[2023-04-01] MEDS: UMECLIDINIUM BROMIDE 62.5MCG/BLISTER 7 PUFFS/INHALER INH SCH (08:01)
[2023-04-01 08:13] LABS: Albumin Globulin Ratio 0.6 (0.9-2); Albumin Level 2.2 gm/dl (3.4-5.0); BUN Creatinine Ratio 8.9 (10-20); Bilirubin,Total 0.3 mg/dl (0.2-1.0); Calcium 8.1 mg/dl (8.6-10.3); Creatinine Clr Calc Pharmacy 13.4 ml/min; Est GFR (Non-African American) 12.1 ml/min; Globulin 3.6 gm/dl (2.5-4.0); Potassium 3.5 mmol/L (3.5-5.1); Total Protein 5.8 gm/dl (6.0-8.3)
[2023-04-01] MEDS: INSULIN ASPART PER UNIT CHARGE SC SCH ×4 (08:47→20:34)
[2023-04-01] MEDS: LANTUS PER UNIT CHARGE SQ SCH (09:08)
[2023-04-01] MEDS: TAMSULOSIN HCL 0.4 MG CAP PO SCH (19:26)
[2023-04-01] MEDS: ROSUVASTATIN CALCIUM 10 MG TAB PO SCH (19:27)
[2023-04-01] MEDS: GABAPENTIN 300 MG CAP PO SCH (19:27)
[2023-04-01] MEDS: FINASTERIDE 5 MG TAB PO SCH (19:28)
[2023-04-02] MEDS: AMPICILLIN 2,000 MG in SODIUM CHLOR 0.9% MINI-B 100 ML IV SCH ×3 (05:13→21:44)
[2023-04-02] MEDS: LEVOTHYROXINE SODIUM 88 MCG TABLET PO SCH (05:46)
[2023-04-02] MEDS: ACETAMINOPHEN 325 MG TAB PO SCH ×3 (05:47→17:16)
--- NOTE | 2023-04-02 06:52 | Hospitalist Progress Note ---
Date of Service April 02, 2023 Assessment & Plan (1) Hypotension: (2) Elevated troponin I level: (3) Recurrent bacteremia: (4) Anxiety: (5) Anemia of chronic disease: (6) Chronic kidney disease, stage 4 (severe): (7) Acute kidney injury superimposed on CKD: (8) Moderate calcific aortic stenosis: (9) Peripheral vascular disease: (10) Lower extremity edema: (11) Benign prostatic hyperplasia with urinary obstruction: (12) COPD (chronic obstructive pulmonary disease): (13) Hypothyroidism: (14) Hypertension: (15) Dyslipidemia: (16) Paroxysmal atrial fibrillation: (17) Vitamin D deficiency: (18) CAD (coronary artery disease): (19) GERD (gastroesophageal reflux disease): (20) CHF (congestive heart failure): (21) Diabetes: Plan 87 yo male with PMHx of CKD Stage 4 (previous admission with [facility] requiring temporary dialysis), DVT, DM2 insulin dependent, HTN, hypothyroidism, afib, CAD, BPH, GERD, recurrent bacteremia, aortic stenosis, anxiety, and CHF who presents with unwitnessed fall with concomitant bowel/bladder incontinence and associated hypotension. Pt continues to be drowsy. Awaiting placement for [facility] with hospice. 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 - blood cx + for Enterococcus Faecalis with repeat cx on 03/22 and 03/25 negative - UA negative, TTE negative for vegetations - PICC placed, plan for ampicillin for 2-3 mo, then will do repeat cx 1-2 weeks after finishing ABs - will continue to hold IV and oral iron in setting of bacteremia - PT/OT recommending SNF - ID noting foot xray negative for osteo of the 2nd digit; could consider MRI; pt and decline at this time - Continue IV ampicillin, #JUDI on CKD stage 4 Suspected ATN - Cr baseline 2, peak this admission 5.92, continues to trend down - Elevation in creatinine prerenal, likely secondary to dehydration vs ampicillin use - Continue to hold home Bumex - pt does not want dialysis at this time, - fluids discontinued to avoid fluid overload, maintaining negative fluid balance still - LE edema causing continuous discomfort, see comment above #Chronic HFpEF #Aortic stenosis #Peripheral edema #CAD/PVD/HLD #Afib -Continue to hold home Bumex -cont. metoprolol; eliquis -cont. statin -cont. ASA, statin #DM2 -Lantus + SSI #Diabetic neuropathy -cont. gabapentin #COPD -cont. home inhalers #Anxiety -cont. clonazepam #BPH -cont. finasteride, tamsulosin DVT ppx: Eliquis FEN/GI: DM2 Admission and Anticipated Discharge Date Admission Date: March 19, 2023 Supervising Physician Co-Signing Physician Notes ATTESTATION I also saw the patient and confirmed aguayo portions of the history and exam. I agree with the impression and plan in the resident documentation, and as summarized below. The is at bedside. Chang was awake little bit earlier this morning talking to her and his son. He sleeping the time of our visit. He does awaken to v oice, but quickly falls back asleep during our conversation EXAM Sleepy. No obvious dyspnea; respirations nonlabored Heart rate regular rate and rhythm at present. DATA Labs Hemoglobin 10.4, platelet count 274 Sodium 143, testing 3.4, BUN 40, creatinine 3.85 IMPRESSION & PLAN Plan is for hospice provided in a facility, discussed possibility of [facility]. Case management aware; logistics pending Continue scheduled Tylenol Oxycodone as needed Additional per resident documentation Subjective 87 yo male with PMHx of CKD Stage 4 (previous admission with [facility] requiring temporary dialysis), DVT, DM2 insulin dependent, HTN, hypothyroidism, afib, CAD, BPH, GERD, recurrent bacteremia, aortic stenosis, anxiety, and CHF who presents with fall. Today, pt same as yesterday, mumbles at times but largely is asleep when seen. No acute distress. was also seen this morning and had no questions at this time. Review of Systems Review of Systems: Per HPI. Physical Exam Physical Exam: General:Sleeping or mumbling occassionally, no acute distress, HEENT: Normocephalic, Cardio: Regular rate and rhythm, LE pitting edema b/l Resp:Lungs clear to auscultation b/l but diminished GI: soft with quiet bowel sounds Skin: Warm, pink, dry, Resident Activity Tracking Resident Involvement: Resident Care Provided Care Provided: Adult Hospital Medicine (12) COPD (chronic obstructive pulmonary disease) COPD type: unspecified COPD Qualified Code(s): J44.9 - Chronic obstructive pulmonary disease, unspecified (13) Hypothyroidism Hypothyroidism type: unspecified Qualified Code(s): E03.9 - Hypothyroidism, unspecified (14) Hypertension Hypertension type: essential hypertension Qualified Code(s): I10 - Essential (primary) hypertension (18) CAD (coronary artery disease) Associated angina: without angina Coronary Disease-Associated Artery/Lesion type: [place] artery [place] vs. transplanted heart: [place] heart Qualified Code(s): I25.10 - Atherosclerotic heart disease of [place] coronary artery without angina pectoris (19) GERD (gastroesophageal reflux disease) Esophagitis presence: esophagitis presence not specified Qualified Code(s): K21.9 - Gastro-esophageal reflux disease without esophagitis (20) CHF (congestive heart failure) Heart failure chronicity: unspecified Heart failure type: unspecified Qualified Code(s): I50.9 - Heart failure, unspecified (21) Diabetes Diabetes mellitus complication status: with hyperglycemia Diabetes mellitus summer associate insulin use: with summer associate use Diabetes mellitus type: type 2 Qualified Code(s): E11.65 - Type 2 diabetes mellitus with hyperglycemia; Z79.4 - hydrator (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
[2023-04-02 07:03] LABS: Basophils # (auto) 0.04 K/uL (0.00-0.20); Basophils % (auto) 0.4 %; Eosinophils # (auto) 0.16 K/uL (0.00-0.50); Eosinophils % (auto) 1.8 %; Hematocrit (blood only) 32.5 % (42.0-52.0); Hemoglobin 10.4 g/dl (14.0-18.0); Immature Granulocytes # (auto) 0.07 K/uL (0.01-0.20); Immature Granulocytes % (auto) 0.8 %; Lymphocytes # (auto) 1.27 K/uL (1.20-3.40); Mean Corpuscular Hemoglobin 29.8 pg (25.0-34.0); Mean Corpuscular Volume 93.1 fL (80.0-100.0); Mean Platelet Volume 9.1 fL (9.4-12.4); Monocytes # (auto) 0.49 K/uL (0.11-0.59); Monocytes % (auto) 5.4 %; Neutrophils # (auto) 7.05 K/uL (1.40-6.50); Neutrophils % (auto) 77.6 %; Platelet Count 274 K/uL (130-400); RDW Coefficient of Variation 14.6 % (11.5-14.5); RDW Standard Deviation 49.1 fL (36.4-46.3); Red Blood Count 3.49 M/uL (4.70-6.10); White Blood Count 9.08 K/ul (4.8-10.8)
[2023-04-02 07:56] LABS: Albumin Level 2.2 gm/dl (3.4-5.0); Bilirubin,Total 0.3 mg/dl (0.2-1.0); Calcium 8.1 mg/dl (8.6-10.3); Potassium 3.4 mmol/L (3.5-5.1)
[2023-04-02 08:02] LABS: Albumin Globulin Ratio 0.6 (0.9-2); BUN Creatinine Ratio 10.4 (10-20); Creatinine Clr Calc Pharmacy 14.4 ml/min; Est GFR (African American) 15.3 ml/min; Est GFR (Non-African American) 13.2 ml/min; Globulin 3.7 gm/dl (2.5-4.0); Total Protein 5.9 gm/dl (6.0-8.3)
[2023-04-02] MEDS: ASPIRIN 81 MG ECTAB PO SCH (08:13)
[2023-04-02] MEDS: PANTOprazole 40 MG TAB PO SCH ×2 (08:14→20:17)
[2023-04-02] MEDS: METOPROLOL TARTRATE 25 MG TAB PO SCH ×2 (08:14→20:17)
[2023-04-02] MEDS: GABAPENTIN 100 MG CAP PO SCH (08:14)
[2023-04-02] MEDS: APIXABAN 2.5 MG TAB PO SCH ×2 (08:14→20:16)
[2023-04-02] MEDS: FLUTICASONE/VILANTEROL 100/25MCG 14 PUFFS/INHALER INH SCH (08:15)
[2023-04-02] MEDS: UMECLIDINIUM BROMIDE 62.5MCG/BLISTER 7 PUFFS/INHALER INH SCH (08:15)
[2023-04-02] MEDS: clonazePAM 1 MG TAB PO SCH ×2 (08:28→20:17)
[2023-04-02] MEDS: LANTUS PER UNIT CHARGE SQ SCH (08:40)
[2023-04-02] MEDS: INSULIN ASPART PER UNIT CHARGE SC SCH ×4 (08:40→20:19)
[2023-04-02] MEDS: oxyCODONE HCL IR 5 MG TAB (IMMEDIATE RELEASE) PO PRN ×2 (12:27→20:22)
[2023-04-02] MEDS: ROSUVASTATIN CALCIUM 10 MG TAB PO SCH (20:17)
[2023-04-02] MEDS: FINASTERIDE 5 MG TAB PO SCH (20:17)
[2023-04-02] MEDS: TAMSULOSIN HCL 0.4 MG CAP PO SCH (20:17)
[2023-04-02] MEDS: GABAPENTIN 300 MG CAP PO SCH (20:17)
[2023-04-03] MEDS: ACETAMINOPHEN 325 MG TAB PO SCH ×5 (03:15→23:45)
[2023-04-03] MEDS: LEVOTHYROXINE SODIUM 88 MCG TABLET PO SCH (06:21)
[2023-04-03] MEDS: AMPICILLIN 2,000 MG in SODIUM CHLOR 0.9% MINI-B 100 ML IV SCH ×3 (06:21→21:06)
--- NOTE | 2023-04-03 06:49 | Hospitalist Progress Note ---
Date of Service April 03, 2023 Assessment & Plan (1) Hypotension: (2) Elevated troponin I level: (3) Recurrent bacteremia: (4) Anxiety: (5) Anemia of chronic disease: (6) Chronic kidney disease, stage 4 (severe): (7) Acute kidney injury superimposed on CKD: (8) Moderate calcific aortic stenosis: (9) Peripheral vascular disease: (10) Lower extremity edema: (11) Benign prostatic hyperplasia with urinary obstruction: (12) COPD (chronic obstructive pulmonary disease): (13) Hypothyroidism: (14) Hypertension: (15) Dyslipidemia: (16) Paroxysmal atrial fibrillation: (17) Vitamin D deficiency: (18) CAD (coronary artery disease): (19) GERD (gastroesophageal reflux disease): (20) CHF (congestive heart failure): (21) Diabetes: Plan 87 yo male with PMHx of CKD Stage 4 (previous admission with [facility] requiring temporary dialysis), DVT, DM2 insulin dependent, HTN, hypothyroidism, afib, CAD, BPH, GERD, recurrent bacteremia, aortic stenosis, anxiety, and CHF who presents with unwitnessed fall with concomitant bowel/bladder incontinence and associated hypotension. Awaiting placement for [facility] with hospice. Case management called and they are working on placement at this time. 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 - blood cx + for Enterococcus Faecalis with repeat cx on 03/22 and 03/25 negative - UA negative, TTE negative for vegetations - PICC placed, plan for ampicillin for 2-3 mo, then will do repeat cx 1-2 weeks after finishing ABs - will continue to hold IV and oral iron in setting of bacteremia - PT/OT recommending SNF - ID noting foot xray negative for osteo of the 2nd digit; could consider MRI; pt and decline at this time - Continue IV ampicillin, #JUDI on CKD stage 4 Suspected ATN - Cr baseline 2, peak this admission 5.92, continues to trend down - Elevation in creatinine prerenal, likely secondary to dehydration vs ampicillin use - Continue to hold home Bumex - pt does not want dialysis at this time, - fluids discontinued to avoid fluid overload, maintaining negative fluid balance still - LE edema causing continuous discomfort, see comment above #Chronic HFpEF #Aortic stenosis #Peripheral edema #CAD/PVD/HLD #Afib -Continue to hold home Bumex -cont. metoprolol; eliquis -cont. statin -cont. ASA, statin #DM2 -Lantus + SSI #Diabetic neuropathy -cont. gabapentin #COPD -cont. home inhalers #Anxiety -cont. clonazepam #BPH -cont. finasteride, tamsulosin DVT ppx: Eliquis FEN/GI: DM2 Admission and Anticipated Discharge Date Admission Date: March 19, 2023 Supervising Physician Co-Signing Physician Notes I personally examined the patient and verified all aguayo points of history and exam, discussed case, and agree with decision making with Dr Carias Seems a bit more somnolent, mildly confused today. Having a hard time calling his . Vitals noted, in general he is very fatigued. Breathing unlabored no accessory muscle use good effort. Skin shows no rashes no pallor or icterus. Neuro without focal deficits, although he is a bit slow to respond and seems more easily confused. Recurrent enterococcal bacteremiacontinue ampicillin. Depending on his ongoing lifespan and shifting goals of care, I agree that suppressive therapy would be quite reasonable if he has ongoing aggressive goals. At the same time, would at least treat for a reasonable duration even if he truly wants comfort simply because the infection is so easy to treat, if not eradicate acute renal failureappears to be improving. Probably was poor flowprerenalATN. Dispositionanticipate SNF. Subjective 87 yo male with PMHx of CKD Stage 4 (previous admission with [facility] requiring temporary dialysis), DVT, DM2 insulin dependent, HTN, hypothyroidism, afib, CAD, BPH, GERD, recurrent bacteremia, aortic stenosis, anxiety, and CHF who presents with fall. Today, pt was seen this morning with his . Both of them had no questions or complaints at this time. No acute distress and pt is more alert today compared to yesterday, but still very drowsy and slow to respond. Plan is still to go to [facility] with hospice. Review of Systems Review of Systems: Per HPI. Physical Exam Physical Exam: General:More alert today, but still slow to respond and mumbles responses, no acute distress, HEENT: Normocephalic, Cardio: Regular rate and rhythm, LE pitting edema b/l , UE edema noted Resp:Lungs clear to auscultation b/l but diminished GI: soft with quiet bowel sounds Skin: Warm, pink, dry, Results & Data Results & Data Vital Signs (Past 12 Hours) Vital Signs Temp Pulse Resp BP Pulse Ox O2 Del Method 04/02/23 20:01 36.4 C L 71 18 140/65 97 Room Air 04/02/23 19:45 Room Air Resident Activity Tracking Resident Involvement: Resident Care Provided Care Provided: Adult Hospital Medicine (12) COPD (chronic obstructive pulmonary disease) COPD type: unspecified COPD Qualified Code(s): J44.9 - Chronic obstructive pulmonary disease, unspecified (13) Hypothyroidism Hypothyroidism type: unspecified Qualified Code(s): E03.9 - Hypothyroidism, unspecified (14) Hypertension Hypertension type: essential hypertension Qualified Code(s): I10 - Essential (primary) hypertension (18) CAD (coronary artery disease) Associated angina: without angina Coronary Disease-Associated Artery/Lesion type: [place] artery [place] vs. 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
[2023-04-03 08:01] LABS: Basophils # (auto) 0.04 K/uL (0.00-0.20); Basophils % (auto) 0.5 %; Eosinophils # (auto) 0.17 K/uL (0.00-0.50); Eosinophils % (auto) 2.1 %; Hematocrit (blood only) 29.3 % (42.0-52.0); Hemoglobin 9.3 g/dl (14.0-18.0); Immature Granulocytes # (auto) 0.05 K/uL (0.01-0.20); Immature Granulocytes % (auto) 0.6 %; Lymphocytes # (auto) 1.35 K/uL (1.20-3.40); Lymphocytes % (auto) 16.7 %; Mean Corpuscular Hemoglobin 29.6 pg (25.0-34.0); Mean Corpuscular Hgb Conc 31.7 g/dL (32.0-36.0); Mean Corpuscular Volume 93.3 fL (80.0-100.0); Mean Platelet Volume 9.2 fL (9.4-12.4); Monocytes # (auto) 0.51 K/uL (0.11-0.59); Monocytes % (auto) 6.3 %; Neutrophils # (auto) 5.98 K/uL (1.40-6.50); Neutrophils % (auto) 73.8 %; Platelet Count 296 K/uL (130-400); RDW Coefficient of Variation 14.9 % (11.5-14.5); RDW Standard Deviation 50.3 fL (36.4-46.3); Red Blood Count 3.14 M/uL (4.70-6.10)
[2023-04-03 08:24] LABS: Albumin Globulin Ratio 0.6 (0.9-2); Albumin Level 2.1 gm/dl (3.4-5.0); BUN Creatinine Ratio 10.8 (10-20); Bilirubin,Total 0.2 mg/dl (0.2-1.0); Est GFR (African American) 16.1 ml/min; Est GFR (Non-African American) 13.9 ml/min; Globulin 3.8 gm/dl (2.5-4.0); Potassium 3.2 mmol/L (3.5-5.1); Total Protein 5.9 gm/dl (6.0-8.3)
[2023-04-03] MEDS: oxyCODONE HCL IR 5 MG TAB (IMMEDIATE RELEASE) PO PRN ×2 (08:39→14:33)
[2023-04-03] MEDS: clonazePAM 1 MG TAB PO SCH ×2 (08:40→19:22)
[2023-04-03] MEDS: INSULIN ASPART PER UNIT CHARGE SC SCH ×4 (08:41→20:29)
[2023-04-03] MEDS: GABAPENTIN 100 MG CAP PO SCH (08:42)
[2023-04-03] MEDS: APIXABAN 2.5 MG TAB PO SCH ×2 (08:42→19:19)
[2023-04-03] MEDS: ASPIRIN 81 MG ECTAB PO SCH (08:42)
[2023-04-03] MEDS: LANTUS PER UNIT CHARGE SQ SCH (10:04)
[2023-04-03] MEDS: UMECLIDINIUM BROMIDE 62.5MCG/BLISTER 7 PUFFS/INHALER INH SCH (11:28)
[2023-04-03] MEDS: FLUTICASONE/VILANTEROL 100/25MCG 14 PUFFS/INHALER INH SCH (11:28)
[2023-04-03] MEDS: PANTOprazole 40 MG TAB PO SCH ×2 (11:29→19:18)
[2023-04-03] MEDS: METOPROLOL TARTRATE 25 MG TAB PO SCH ×2 (11:29→19:19)
--- NOTE | 2023-04-03 18:12 | Billing Data ---
Date of Service April 03, 2023 Coding Level of Care Code 45703 SUB INP/OBS CARE
[2023-04-03] MEDS: ROSUVASTATIN CALCIUM 10 MG TAB PO SCH (19:18)
[2023-04-03] MEDS: GABAPENTIN 300 MG CAP PO SCH (19:18)
[2023-04-03] MEDS: FINASTERIDE 5 MG TAB PO SCH (19:19)
[2023-04-03] MEDS: TAMSULOSIN HCL 0.4 MG CAP PO SCH (19:19)
[2023-04-04] MEDS: AMPICILLIN 2,000 MG in SODIUM CHLOR 0.9% MINI-B 100 ML IV SCH ×3 (05:01→21:01)
[2023-04-04] MEDS: LEVOTHYROXINE SODIUM 88 MCG TABLET PO SCH (05:30)
[2023-04-04] MEDS: ACETAMINOPHEN 325 MG TAB PO SCH ×4 (05:30→23:05)
[2023-04-04 07:56] LABS: Basophils # (auto) 0.02 K/uL (0.00-0.20); Basophils % (auto) 0.3 %; Eosinophils # (auto) 0.12 K/uL (0.00-0.50); Eosinophils % (auto) 1.9 %; Hemoglobin 9.1 g/dl (14.0-18.0); Immature Granulocytes # (auto) 0.03 K/uL (0.01-0.20); Immature Granulocytes % (auto) 0.5 %; Lymphocytes # (auto) 1.23 K/uL (1.20-3.40); Lymphocytes % (auto) 19.6 %; Mean Corpuscular Hemoglobin 29.4 pg (25.0-34.0); Mean Corpuscular Hgb Conc 32.5 g/dL (32.0-36.0); Mean Corpuscular Volume 90.6 fL (80.0-100.0); Mean Platelet Volume 9.1 fL (9.4-12.4); Monocytes # (auto) 0.45 K/uL (0.11-0.59); Monocytes % (auto) 7.2 %; Neutrophils # (auto) 4.44 K/uL (1.40-6.50); Neutrophils % (auto) 70.5 %; Platelet Count 261 K/uL (130-400); RDW Coefficient of Variation 14.5 % (11.5-14.5); RDW Standard Deviation 46.9 fL (36.4-46.3); Red Blood Count 3.09 M/uL (4.70-6.10); White Blood Count 6.29 K/ul (4.8-10.8)
--- NOTE | 2023-04-04 08:25 | Hospitalist Progress Note ---
"Date of Service April 04, 2023 Assessment & Plan (1) Hypotension: (2) Elevated troponin I level: (3) Recurrent bacteremia: (4) Anxiety: (5) Anemia of chronic disease: (6) Chronic kidney disease, stage 4 (severe): (7) Acute kidney injury superimposed on CKD: (8) Moderate calcific aortic stenosis: (9) Peripheral vascular disease: (10) Lower extremity edema: (11) Benign prostatic hyperplasia with urinary obstruction: (12) COPD (chronic obstructive pulmonary disease): (13) Hypothyroidism: (14) Hypertension: (15) Dyslipidemia: (16) Paroxysmal atrial fibrillation: (17) Vitamin D deficiency: (18) CAD (coronary artery disease): (19) GERD (gastroesophageal reflux disease): (20) CHF (congestive heart failure): (21) Diabetes: Plan 87 yo male with PMHx of CKD Stage 4 (previous admission with [facility] requiring temporary dialysis), DVT, DM2 insulin dependent, HTN, hypothyroidism, afib, CAD, BPH, GERD, recurrent bacteremia, aortic stenosis, anxiety, and CHF who presents with unwitnessed fall with concomitant bowel/bladder incontinence and associated hypotension. Awaiting placement for [facility] with hospice. Case management called and they are working on placement at this time. 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 -blood cx + for Enterococcus Faecalis with repeat cx on 03/22 and 03/25 negative -UA negative, TTE negative for vegetations -PICC placed, plan for ampicillin for 2-3 mo, then will do repeat cx 1-2 weeks after finishing ABs -PICC line pulled by patient this morning, IV team contacted to replace PICC -will continue to hold IV and oral iron in setting of bacteremia -PT/OT recommending SNF -ID noting foot xray negative for osteo of the 2nd digit; could consider MRI; pt and decline at this time -Continue IV ampicillin [facility] on CKD stage 4 | Suspected ATN -Cr baseline 2, peak this admission 5.92, continues to trend down -Elevation in creatinine prerenal, likely secondary to dehydration vs ampicillin use -Continue to hold home Bumex -pt does not want dialysis at this time, -fluids discontinued to avoid fluid overload, maintaining negative fluid balance still -LE edema causing continuous discomfort, see comment above Chronic HFpEF | Aortic stenosis | Peripheral edema | CAD/PVD/HLD | Afib -Continue to hold home Bumex -cont. metoprolol; Eliquis -cont. statin -cont. ASA, statin DM2 -Lantus + SSI Diabetic neuropathy -cont. gabapentin COPD -cont. home inhalers Anxiety -cont. clonazepam BPH -cont. finasteride, tamsulosin DVT ppx: Eliquis FEN/GI: DM2 Admission and Anticipated Discharge Date Admission Date: March 19, 2023 Supervising Physician Co-Signing Physician Notes I personally examined the patient and verified all [place]o points of history and exam, discussed case, and agree with decision making with Dr Gibbs again somewhat confused and somnolent, once again trying to call . not sure when she's coming in. Vitals noted, in general he is very fatigued. Breathing unlabored no accessory muscle use good effort. Skin shows no rashes no pallor or icterus. Neuro without focal deficits, although he is a bit slow to respond and seems more easily confused. Recurrent enterococcal bacteremiacontinue ampicillin. Depending on his ongoing lifespan and shifting goals of care, I agree that suppressive therapy would be quite reasonable if he has ongoing aggressive goals. At the same time, would at least treat for a reasonable duration even if he truly wants comfort simply because the infection is so easy to treat, if not eradicate. would like to discuss further with - although no clear urgency to those discussions. for SNF once able to be set up acute renal failureongoing improvement. Probably was poor flowprerenalATN. Dispositionanticipate SNF. Subjective Patient was seen and examined at bedside. He was sleeping at time of encounter, awakens easily. He appeared a bit drowsy and had some confusion. This morning he pulled out his PICC line, IV team was notified to replace the PICC line. He denies chest pain, shortness of breath, abdominal pain. He endorses bilateral foot discomfort. Review of Systems Review of Systems: As per above Physical Exam Constitutional: + frail appearing; no acute distress ENMT: Ears: no external ear abnormality Nose: no external nose abnormality Moist mucous membranes Respiratory: normal respiratory effort, lungs clear to auscultation Cardiovascular: Rate/Rhythm: regular rate and regular rhythm Heart Sounds: + murmur +1 lower extremity edema bilaterally Gastrointestinal (Abdomen): Percussion/Palpation: abdomen soft; abdomen nontender Skin: no rashes, warm and dry Psychiatric: Orientation: oriented to person Results & Data Results & Data Vital Signs (Past 12 Hours) Vital Signs Temp Pulse Resp BP Pulse Ox O2 Del Method 04/04/23 07:14 36.4 C L 80 18 146/64 H 94 Room Air Resident Activity Tracking Resident Involvement: Resident Care Provided Care Provided: Adult Hospital Medicine (12) COPD (chronic obstructive pulmonary disease) COPD type: unspecified COPD Qualified Code(s): J44.9 - Chronic obstructive pulmonary disease, unspecified (13) Hypothyroidism Hypothyroidism type: unspecified Qualified Code(s): E03.9 - Hypothyroidism, unspecified (14) Hypertension Hypertension type: essential hypertension Qualified Code(s): I10 - Essential (primary) hypertension (18) CAD (coronary artery disease) Associated angina: without angina Coronary Disease-Associated Artery/Lesion type: [place] artery [place] vs. 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
[2023-04-04 08:28] LABS: Albumin Globulin Ratio 0.6 (0.9-2); BUN Creatinine Ratio 10.8 (10-20); Bilirubin,Total 0.2 mg/dl (0.2-1.0); Calcium 7.7 mg/dl (8.6-10.3); Creatinine Clr Calc Pharmacy 16.1 ml/min; Est GFR (African American) 17.5 ml/min; Est GFR (Non-African American) 15.1 ml/min; Globulin 3.3 gm/dl (2.5-4.0); Total Protein 5.3 gm/dl (6.0-8.3)
[2023-04-04] MEDS: INSULIN ASPART PER UNIT CHARGE SC SCH ×4 (08:44→20:34)
[2023-04-04] MEDS: clonazePAM 1 MG TAB PO SCH ×2 (08:44→19:31)
[2023-04-04] MEDS: APIXABAN 2.5 MG TAB PO SCH ×2 (08:46→19:32)
[2023-04-04] MEDS: PANTOprazole 40 MG TAB PO SCH ×2 (08:46→19:33)
[2023-04-04] MEDS: ASPIRIN 81 MG ECTAB PO SCH (08:46)
[2023-04-04] MEDS: METOPROLOL TARTRATE 25 MG TAB PO SCH ×2 (08:46→19:32)
[2023-04-04] MEDS: GABAPENTIN 100 MG CAP PO SCH (08:46)
[2023-04-04] MEDS: FLUTICASONE/VILANTEROL 100/25MCG 14 PUFFS/INHALER INH SCH (08:47)
[2023-04-04] MEDS: UMECLIDINIUM BROMIDE 62.5MCG/BLISTER 7 PUFFS/INHALER INH SCH (08:47)
--- NOTE | 2023-04-04 12:19 | XRay Report ---
XR chest 1V portable HISTORY: Left PICC line placement COMPARISON: Chest 03/18/2023. FINDINGS: Interval placement of a left-sided PICC which terminates in the expected location of the SV C. No pneumothorax. No pleural effusions. The cardiac silhouette remains mildly enlarged. Mild inters titial thickening persists. No new focal lung consolidations to suggest a pneumonia. There are postst ernotomy changes. Degenerative changes within the shoulders. IMPRESSION: 1. The left PICC terminates in the SVC. 2. Cardiomegaly and mild interstitial thickening persists. ACT 112: Negative or not required by law. Electronically signed by: Otoniel Olivarez M.D. 04/04/2023 12:18 PM
[2023-04-04] MEDS: POLYETHYLENE (MIRALAX) 17 GM PACK PO PRN (17:47)
--- NOTE | 2023-04-04 19:05 | Billing Data ---
Date of Service April 04, 2023 Coding Level of Care Code 33675 SUB INP/OBS CARE
[2023-04-04] MEDS: GABAPENTIN 300 MG CAP PO SCH (19:31)
[2023-04-04] MEDS: ROSUVASTATIN CALCIUM 10 MG TAB PO SCH (19:31)
[2023-04-04] MEDS: FINASTERIDE 5 MG TAB PO SCH (19:32)
[2023-04-04] MEDS: TAMSULOSIN HCL 0.4 MG CAP PO SCH (19:32)
[2023-04-05] MEDS: AMPICILLIN 2,000 MG in SODIUM CHLOR 0.9% MINI-B 100 ML IV SCH ×3 (05:16→21:03)
[2023-04-05] MEDS: ACETAMINOPHEN 325 MG TAB PO SCH ×4 (05:47→23:07)
[2023-04-05] MEDS: LEVOTHYROXINE SODIUM 88 MCG TABLET PO SCH (05:48)
--- NOTE | 2023-04-05 06:57 | Hospitalist Progress Note ---
"Date of Service April 05, 2023 Assessment & Plan (1) Hypotension: (2) Elevated troponin I level: (3) Recurrent bacteremia: (4) Anxiety: (5) Anemia of chronic disease: (6) Chronic kidney disease, stage 4 (severe): (7) Acute kidney injury superimposed on CKD: (8) Moderate calcific aortic stenosis: (9) Peripheral vascular disease: (10) Lower extremity edema: (11) Benign prostatic hyperplasia with urinary obstruction: (12) COPD (chronic obstructive pulmonary disease): (13) Hypothyroidism: (14) Hypertension: (15) Dyslipidemia: (16) Paroxysmal atrial fibrillation: (17) Vitamin D deficiency: (18) CAD (coronary artery disease): (19) GERD (gastroesophageal reflux disease): (20) CHF (congestive heart failure): (21) Diabetes: Plan 87 yo male with PMHx of CKD Stage 4 (previous admission with [facility] requiring temporary dialysis), DVT, DM2 insulin dependent, HTN, hypothyroidism, afib, CAD, BPH, GERD, recurrent bacteremia, aortic stenosis, anxiety, and CHF who presents with unwitnessed fall with concomitant bowel/bladder incontinence and associated hypotension. Awaiting placement for [facility] with hospice at this time. 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 -blood cx + for Enterococcus Faecalis with repeat cx on 03/22 and 03/25 negative -UA negative, TTE negative for vegetations -PICC placed, plan for ampicillin for 2-3 mo, then will do repeat cx 1-2 weeks after finishing ABs -PICC line pulled by patient this morning, IV team contacted to replace PICC -will continue to hold IV and oral iron in setting of bacteremia -PT/OT recommending SNF -ID noting foot xray negative for osteo of the 2nd digit; could consider MRI; pt and decline at this time -Continue IV ampicillin [facility] on CKD stage 4 | Suspected ATN -Cr baseline 2, peak this admission 5.92, continues to trend down -Elevation in creatinine prerenal, likely secondary to dehydration vs ampicillin use -Continue to hold home Bumex -pt does not want dialysis at this time, -fluids discontinued to avoid fluid overload, maintaining negative fluid balance still -LE edema causing continuous discomfort, see comment above Chronic HFpEF | Aortic stenosis | Peripheral edema | CAD/PVD/HLD | Afib -Continue to hold home Bumex -cont. metoprolol; Eliquis -cont. statin -cont. ASA, statin DM2 -Lantus + SSI Diabetic neuropathy -cont. gabapentin COPD -cont. home inhalers Anxiety -cont. clonazepam BPH -cont. finasteride, tamsulosin DVT ppx: Eliquis FEN/GI: DM2 Admission and Anticipated Discharge Date Admission Date: March 19, 2023 Supervising Physician Co-Signing Physician Notes I personally examined the patient and verified all aguayo points of history and exam, discussed case, and agree with decision making with Dr Carias again somewhat confused and somnolent, but no new complaints today. expresses appreciation for care. Vitals noted, in general he is very fatigued. Breathing unlabored no accessory muscle use good effort. Skin shows no rashes no pallor or icterus. Neuro without focal deficits, although he is a bit slow to respond and seems more easily confused. Recurrent enterococcal bacteremiacontinue ampicillin. Depending on his ongoing lifespan and shifting goals of care, I agree that suppressive therapy would be quite reasonable if he has ongoing aggressive goals. At the same time, would at least treat for a reasonable duration even if he truly wants comfort simply because the infection is so easy to treat, if not eradicate. resident physician was able to connect with and confirm hospice goals. acute renal failurenow leveled out. Probably was poor flowprerenalATN. does not want HD Dispositionanticipate SNF. Subjective 87 yo male with PMHx of CKD Stage 4 (previous admission with [facility] requiring temporary dialysis), DVT, DM2 insulin dependent, HTN, hypothyroidism, afib, CAD, BPH, GERD, recurrent bacteremia, aortic stenosis, anxiety, and CHF who presents with unwitnessed fall with concomitant bowel/bladder incontinence and associated hypotension. Today, pt appears a bit more awake and alert when seen. He states he does not have any questions at this time. His is present and states that she knows case management is still working on getting him a spot at [facility] and states that when she talked to case, she said it would be alright if he had to go somewhere else first as long as the plan as to eventually get him to [facility] if possible. No questions or concerns from her this morning. Pt not in acute distress and looking more alert than the last few days. Review of Systems Review of Systems: As per above Physical Exam Physical Exam: General:More alert today, no acute distress, HEENT: Normocephalic, Cardio: Regular rate and rhythm, LE pitting edema b/l , UE edema noted Resp:Lungs clear to auscultation b/l but diminished GI: soft with quiet bowel sounds Skin: Warm, pink, dry, Results & Data Results & Data Vital Signs (Past 12 Hours) Vital Signs Temp Pulse Resp BP Pulse Ox O2 Del Method 04/04/23 19:30 Room Air 04/04/23 19:25 36.5 C 84 16 178/74 H 95 Room Air Resident Activity Tracking Resident Involvement: Resident Care Provided Care Provided: Adult Hospital Medicine (12) COPD (chronic obstructive pulmonary disease) COPD type: unspecified COPD Qualified Code(s): J44.9 - Chronic obstructive pulmonary disease, unspecified (13) Hypothyroidism Hypothyroidism type: unspecified Qualified Code(s): E03.9 - Hypothyroidism, unspecified (14) Hypertension Hypertension type: essential hypertension Qualified Code(s): I10 - Essential (primary) hypertension (18) CAD (coronary artery disease) Associated angina: without angina Coronary Disease-Associated Artery/Lesion type: [place] artery [place] vs. 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
[2023-04-05] MEDS ORDERED: POTASSIUM CHLORIDE 20 MEQ/15 ML UDC PO STA (07:23)
[2023-04-05] MEDS: GABAPENTIN 100 MG CAP PO SCH (08:01)
[2023-04-05] MEDS: APIXABAN 2.5 MG TAB PO SCH ×2 (08:01→19:42)
[2023-04-05] MEDS: PANTOprazole 40 MG TAB PO SCH ×2 (08:01→19:43)
[2023-04-05] MEDS: METOPROLOL TARTRATE 25 MG TAB PO SCH ×2 (08:01→19:42)
[2023-04-05] MEDS: ASPIRIN 81 MG ECTAB PO SCH (08:02)
[2023-04-05] MEDS: UMECLIDINIUM BROMIDE 62.5MCG/BLISTER 7 PUFFS/INHALER INH SCH (08:02)
[2023-04-05] MEDS: FLUTICASONE/VILANTEROL 100/25MCG 14 PUFFS/INHALER INH SCH (08:02)
[2023-04-05] MEDS: clonazePAM 1 MG TAB PO SCH ×2 (08:07→19:41)
[2023-04-05 08:24] LABS: Basophils # (auto) 0.04 K/uL (0.00-0.20); Basophils % (auto) 0.7 %; Eosinophils # (auto) 0.16 K/uL (0.00-0.50); Eosinophils % (auto) 2.7 %; Hemoglobin 9.2 g/dl (14.0-18.0); Immature Granulocytes # (auto) 0.02 K/uL (0.01-0.20); Immature Granulocytes % (auto) 0.3 %; Lymphocytes # (auto) 1.58 K/uL (1.20-3.40); Lymphocytes % (auto) 26.8 %; Mean Corpuscular Hemoglobin 29.6 pg (25.0-34.0); Mean Corpuscular Hgb Conc 32.9 g/dL (32.0-36.0); Mean Platelet Volume 8.4 fL (9.4-12.4); Monocytes # (auto) 0.38 K/uL (0.11-0.59); Monocytes % (auto) 6.5 %; Neutrophils # (auto) 3.71 K/uL (1.40-6.50); Platelet Count 233 K/uL (130-400); RDW Coefficient of Variation 14.7 % (11.5-14.5); RDW Standard Deviation 47.9 fL (36.4-46.3); Red Blood Count 3.11 M/uL (4.70-6.10); White Blood Count 5.89 K/ul (4.8-10.8)
[2023-04-05] MEDS: INSULIN ASPART PER UNIT CHARGE SC SCH ×4 (08:54→20:41)
[2023-04-05 08:59] LABS: Bilirubin,Total 0.3 mg/dl (0.2-1.0); Calcium 7.7 mg/dl (8.6-10.3)
[2023-04-05 09:33] LABS: Albumin Globulin Ratio 0.6 (0.9-2); BUN Creatinine Ratio 10.3 (10-20); Creatinine Clr Calc Pharmacy 15.5 ml/min; Est GFR (African American) 16.7 ml/min; Est GFR (Non-African American) 14.4 ml/min; Globulin 3.5 gm/dl (2.5-4.0); Total Protein 5.5 gm/dl (6.0-8.3)
[2023-04-05] MEDS: POLYETHYLENE (MIRALAX) 17 GM PACK PO PRN (10:18)
[2023-04-05] MEDS: TAMSULOSIN HCL 0.4 MG CAP PO SCH (19:41)
[2023-04-05] MEDS: ROSUVASTATIN CALCIUM 10 MG TAB PO SCH (19:41)
[2023-04-05] MEDS: GABAPENTIN 300 MG CAP PO SCH (19:41)
[2023-04-05] MEDS: FINASTERIDE 5 MG TAB PO SCH (19:42)
--- NOTE | 2023-04-05 20:13 | Billing Data ---
Date of Service April 05, 2023 Coding Level of Care Code 02125 SUB INP/OBS CARE
[2023-04-06] MEDS: AMPICILLIN 2,000 MG in SODIUM CHLOR 0.9% MINI-B 100 ML IV SCH ×3 (05:00→21:05)
[2023-04-06] MEDS: LEVOTHYROXINE SODIUM 88 MCG TABLET PO SCH (05:31)
[2023-04-06] MEDS: ACETAMINOPHEN 325 MG TAB PO SCH ×4 (05:31→23:26)
--- NOTE | 2023-04-06 07:08 | Hospitalist Progress Note ---
"Date of Service April 06, 2023 Assessment & Plan (1) Hypotension: (2) Elevated troponin I level: (3) Recurrent bacteremia: (4) Anxiety: (5) Anemia of chronic disease: (6) Chronic kidney disease, stage 4 (severe): (7) Acute kidney injury superimposed on CKD: (8) Moderate calcific aortic stenosis: (9) Peripheral vascular disease: (10) Lower extremity edema: (11) Benign prostatic hyperplasia with urinary obstruction: (12) COPD (chronic obstructive pulmonary disease): (13) Hypothyroidism: (14) Hypertension: (15) Dyslipidemia: (16) Paroxysmal atrial fibrillation: (17) Vitamin D deficiency: (18) CAD (coronary artery disease): (19) GERD (gastroesophageal reflux disease): (20) CHF (congestive heart failure): (21) Diabetes: Plan 87 yo male with PMHx of CKD Stage 4 (previous admission with [facility] requiring temporary dialysis), DVT, DM2 insulin dependent, HTN, hypothyroidism, afib, CAD, BPH, GERD, recurrent bacteremia, aortic stenosis, anxiety, and CHF who presents with unwitnessed fall with concomitant bowel/bladder incontinence and associated hypotension. Pt doing great today, still awaiting placement at this time. 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, blood cx + for Enterococcus Faecalis with repeat cx on 03/22 and 03/25 negative, -UA negative, TTE negative for vegetations, ID noting foot xray negative for osteo of the 2nd digit; could consider MRI; pt and decline at this time -PICC placed, plan for ampicillin for 2-3 mo, then will do repeat cx 1-2 weeks after finishing ABs, -will continue to hold IV and oral iron in setting of bacteremia -PT/OT recommending SNF [facility] on CKD stage 4 | Suspected ATN -Cr baseline 2, peak this admission 5.92, continues to trend down -Elevation in creatinine prerenal, likely secondary to dehydration vs ampicillin use -Continue to hold home Bumex, pt does not want dialysis at this time, -LE edema causing continuous discomfort, giving renzo tylenol and oxy 2.5 mg prn for pain Chronic HFpEF | Aortic stenosis | Peripheral edema | CAD/PVD/HLD | Afib -Continue to hold home Bumex -cont. metoprolol; Eliquis -cont. statin -cont. ASA, statin DM2 -Lantus + SSI Diabetic neuropathy -cont. gabapentin COPD -cont. home inhalers Anxiety -cont. clonazepam BPH -cont. finasteride, tamsulosin DVT ppx: Eliquis FEN/GI: DM2 Admission and Anticipated Discharge Date Admission Date: March 19, 2023 Supervising Physician Co-Signing Physician Notes I personally examined the patient and verified all agu[place]o points of history and exam, discussed case, and agree with decision making with Dr Carias No complaints little bit delirious today. Vitals noted, in general he is very fatigued. Breathing unlabored no accessory muscle use good effort. Skin shows no rashes no pallor or icterus. Neuro without focal deficits, although more alert seems more easily confused. Recurrent enterococcal bacteremiacontinue ampicillin. Depending on his ongoing lifespan and shifting goals of care, I agree that suppressive therapy would be quite reasonable if he has ongoing aggressive goals. At the same time, would at least treat for a reasonable duration even if he truly wants comfort simply because the infection is so easy to treat, if not eradicate. resident physician was able to connect with and confirm hospice goals. acute renal failurenow leveled out. Probably was poor flowprerenalATN. does not want HD Dispositionanticipate SNF. Subjective 87 yo male with PMHx of CKD Stage 4 (previous admission with [facility] requiring temporary dialysis), DVT, DM2 insulin dependent, HTN, hypothyroidism, afib, CAD, BPH, GERD, recurrent bacteremia, aortic stenosis, anxiety, and CHF who presents with unwitnessed fall with concomitant bowel/bladder incontinence and associated hypotension. Today, pt appears to be doing great. He is sitting up eating breakfast, alert and conversational today. He states he is feeling very well today and that he has no complaints at this time. Review of Systems Review of Systems: Per HPI. Physical Exam Physical Exam: General:Alert and pleasantly conversational today, no acute distress, HEENT: Normocephalic, Cardio: Regular rate and rhythm, LE pitting edema b/l , UE edema noted Resp:Lungs clear to auscultation b/l but diminished GI: soft with quiet bowel sounds Skin: Warm, pink, dry, Results & Data Results & Data Vital Signs (Past 12 Hours) Vital Signs Temp Pulse Resp BP BP Pulse Ox O2 Del Method 04/05/23 23:17 66 18 150/75 H 95 Room Air 11/08/23 19:38 36.5 C 78 16 170/77 H 96 Room Air 04/05/23 19:15 Room Air Resident Activity Tracking Resident Involvement: Resident Care Provided Care Provided: Adult Hospital Medicine (12) COPD (chronic obstructive pulmonary disease) COPD type: unspecified COPD Qualified Code(s): J44.9 - Chronic obstructive pulmonary disease, unspecified (13) Hypothyroidism Hypothyroidism type: unspecified Qualified Code(s): E03.9 - Hypothyroidism, unspecified (14) Hypertension Hypertension type: essential hypertension Qualified Code(s): I10 - Essential (primary) hypertension (18) CAD (coronary artery disease) Associated angina: without angina Coronary Disease-Associated Artery/Lesion type: [place] artery [place] vs. transplanted heart: [place] heart Qualified Code(s): I25.10 - Atherosclerotic heart disease of [place] coronary artery without angina pectoris (19) GERD (gastroesophageal reflux disease) Esophagitis presence: esophagitis presence not specified Qualified Code(s): K21.9 - Gastro-esophageal reflux disease without esophagitis (20) CHF (congestive heart failure) Heart failure chronicity: unspecified Heart failure type: unspecified Q ualified Code(s): I50.9 - Heart failure, unspecified (21) Diabetes Diabetes mellitus complication status: with hyperglycemia Diabetes mellitus senior care insulin use: with senior care use Diabetes mellitus type: type 2 Qualified Code(s): E11.65 - Type 2 diabetes mellitus with hyperglycemia; 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
[2023-04-06 07:52] LABS: Basophils # (auto) 0.04 K/uL (0.00-0.20); Basophils % (auto) 0.6 %; Eosinophils # (auto) 0.15 K/uL (0.00-0.50); Eosinophils % (auto) 2.3 %; Hematocrit (blood only) 31.2 % (42.0-52.0); Hemoglobin 10.1 g/dl (14.0-18.0); Immature Granulocytes # (auto) 0.02 K/uL (0.01-0.20); Immature Granulocytes % (auto) 0.3 %; Lymphocytes # (auto) 1.22 K/uL (1.20-3.40); Lymphocytes % (auto) 18.5 %; Mean Corpuscular Hemoglobin 29.8 pg (25.0-34.0); Mean Corpuscular Hgb Conc 32.4 g/dL (32.0-36.0); Mean Platelet Volume 8.8 fL (9.4-12.4); Monocytes # (auto) 0.34 K/uL (0.11-0.59); Monocytes % (auto) 5.2 %; Neutrophils # (auto) 4.81 K/uL (1.40-6.50); Neutrophils % (auto) 73.1 %; Platelet Count 246 K/uL (130-400); RDW Coefficient of Variation 14.9 % (11.5-14.5); RDW Standard Deviation 49.7 fL (36.4-46.3); Red Blood Count 3.39 M/uL (4.70-6.10); White Blood Count 6.58 K/ul (4.8-10.8)
[2023-04-06] MEDS: METOPROLOL TARTRATE 25 MG TAB PO SCH ×2 (08:29→19:42)
[2023-04-06] MEDS: PANTOprazole 40 MG TAB PO SCH ×2 (08:29→19:42)
[2023-04-06] MEDS: UMECLIDINIUM BROMIDE 62.5MCG/BLISTER 7 PUFFS/INHALER INH SCH (08:29)
[2023-04-06] MEDS: FLUTICASONE/VILANTEROL 100/25MCG 14 PUFFS/INHALER INH SCH (08:29)
[2023-04-06] MEDS: ASPIRIN 81 MG ECTAB PO SCH (08:29)
[2023-04-06] MEDS: GABAPENTIN 100 MG CAP PO SCH (08:29)
[2023-04-06] MEDS: APIXABAN 2.5 MG TAB PO SCH ×2 (08:29→19:41)
[2023-04-06] MEDS: INSULIN ASPART PER UNIT CHARGE SC SCH ×4 (08:31→20:49)
[2023-04-06 08:33] LABS: Albumin Globulin Ratio 0.6 (0.9-2); Albumin Level 2.1 gm/dl (3.4-5.0); BUN Creatinine Ratio 10.9 (10-20); Bilirubin,Total 0.2 mg/dl (0.2-1.0); Creatinine Clr Calc Pharmacy 16.4 ml/min; Est GFR (African American) 17.8 ml/min; Est GFR (Non-African American) 15.4 ml/min; Globulin 3.6 gm/dl (2.5-4.0); Potassium 3.2 mmol/L (3.5-5.1); Total Protein 5.7 gm/dl (6.0-8.3)
[2023-04-06] MEDS: clonazePAM 1 MG TAB PO SCH ×2 (08:36→19:40)
[2023-04-06] MEDS: POLYETHYLENE (MIRALAX) 17 GM PACK PO PRN (17:24)
--- NOTE | 2023-04-06 17:53 | Billing Data ---
Date of Service April 06, 2023 Coding Level of Care Code 22740 SUB INP/OBS CARE
[2023-04-06] MEDS: GABAPENTIN 300 MG CAP PO SCH (19:40)
[2023-04-06] MEDS: FINASTERIDE 5 MG TAB PO SCH (19:41)
[2023-04-06] MEDS: TAMSULOSIN HCL 0.4 MG CAP PO SCH (19:41)
[2023-04-06] MEDS: ROSUVASTATIN CALCIUM 10 MG TAB PO SCH (19:42)
[2023-04-07] MEDS: AMPICILLIN 2,000 MG in SODIUM CHLOR 0.9% MINI-B 100 ML IV SCH ×3 (05:07→21:25)
[2023-04-07] MEDS: ACETAMINOPHEN 325 MG TAB PO SCH ×4 (05:40→23:29)
[2023-04-07] MEDS: LEVOTHYROXINE SODIUM 88 MCG TABLET PO SCH (05:40)
--- NOTE | 2023-04-07 06:49 | Hospitalist Progress Note ---
"Date of Service April 07, 2023 Assessment & Plan (1) Hypotension: (2) Elevated troponin I level: (3) Recurrent bacteremia: (4) Anxiety: (5) Anemia of chronic disease: (6) Chronic kidney disease, stage 4 (severe): (7) Acute kidney injury superimposed on CKD: (8) Moderate calcific aortic stenosis: (9) Peripheral vascular disease: (10) Lower extremity edema: (11) Benign prostatic hyperplasia with urinary obstruction: (12) COPD (chronic obstructive pulmonary disease): (13) Hypothyroidism: (14) Hypertension: (15) Dyslipidemia: (16) Paroxysmal atrial fibrillation: (17) Vitamin D deficiency: (18) CAD (coronary artery disease): (19) GERD (gastroesophageal reflux disease): (20) CHF (congestive heart failure): (21) Diabetes: Plan 87 yo male with PMHx of CKD Stage 4 (previous admission with [facility] requiring temporary dialysis), DVT, DM2 insulin dependent, HTN, hypothyroidism, afib, CAD, BPH, GERD, recurrent bacteremia, aortic stenosis, anxiety, and CHF who presents with unwitnessed fall with concomitant bowel/bladder incontinence and associated hypotension. Pt to go to [facility] on Monday. 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, blood cx + for Enterococcus Faecalis with repeat cx on 03/22 and 03/25 negative, -UA negative, TTE negative for vegetations, ID noting foot xray negative for osteo of the 2nd digit; could consider MRI; pt and decline at this time -PICC placed, plan for ampicillin for 2-3 mo, then will do repeat cx 1-2 weeks after finishing ABs, -will continue to hold IV and oral iron in setting of bacteremia -PT/OT recommending SNF [facility] on CKD stage 4 | Suspected ATN -Cr baseline 2, peak this admission 5.92, continues to trend down -Elevation in creatinine prerenal, likely secondary to dehydration vs ampicillin use -Continue to hold home Bumex, pt does not want dialysis at this time, -LE edema causing continuous discomfort, giving renzo tylenol and oxy 2.5 mg prn for pain Chronic HFpEF | Aortic stenosis | Peripheral edema | CAD/PVD/HLD | Afib -Continue to hold home Bumex -cont. metoprolol; Eliquis -cont. statin -cont. ASA, statin DM2 -Lantus + SSI Diabetic neuropathy -cont. gabapentin COPD -cont. home inhalers Anxiety -cont. clonazepam BPH -cont. finasteride, tamsulosin DVT ppx: Eliquis FEN/GI: DM2 Admission and Anticipated Discharge Date Admission Date: March 19, 2023 Supervising Physician Co-Signing Physician Notes I personally examined the patient and verified all aguayo points of history and exam, discussed case, and agree with decision making with Dr Carias sleeping comfortably. present at the bedside. Plan is now for [facility] in [place] likely Monday. Vitals noted, in general he is resting comfortably. Breathing unlabored no accessory muscle use good effort. Skin shows no rashes no pallor or icterus. Neuro without focal deficits, although more alert seems more easily confused. Recurrent enterococcal bacteremiacontinue ampicillin. Depending on his ongoing lifespan and shifting goals of care, I agree that suppressive therapy would be quite reasonable if he has ongoing aggressive goals. At the same time, would at least treat for a reasonable duration even if he truly wants comfort simply because the infection is so easy to treat, if not eradicate. resident physician was able to connect with and confirm hospice goals. acute renal failurenow leveled out. Probably was poor flowprerenalATN. does not want HD Dispositionanticipate [facility] Monday Subjective 87 yo male with PMHx of CKD Stage 4 (previous admission with [facility] requiring temporary dialysis), DVT, DM2 insulin dependent, HTN, hypothyroidism, afib, CAD, BPH, GERD, recurrent bacteremia, aortic stenosis, anxiety, and CHF who presents with unwitnessed fall with concomitant bowel/bladder incontinence and associated hypotension. Today, pt is alert and in no acute distress. He states he feels good today. was present and notes that he seemed to eat a good amount of his breakfast and lunch yesterday and seems to be looking better overall. Still awaiting placement as she states that they found out yesterday that [facility] not [facility]. Neither pt or his have any questions or concerns at this time, still awaiting placement. Review of Systems Review of Systems: Per HPI. Physical Exam Physical Exam: General:Alert and pleasantly conversational today, no acute distress, HEENT: Normocephalic, Cardio: Regular rate and rhythm, LE pitting edema b/l , slightly more edematous than yesterday, Resp:Lungs clear to auscultation b/l but diminished GI: active bowel sounds Skin: Warm, pink, dry, Results & Data Results & Data Vital Signs (Past 12 Hours) Vital Signs Temp Pulse Resp BP Pulse Ox O2 Del Method 04/06/23 19:39 36.5 C 66 14 173/77 H 97 Room Air 04/06/23 19:20 Room Air Resident Activity Tracking Resident Involvement: Resident Care Provided Care Provided: Adult Hospital Medicine (12) COPD (chronic obstructive pulmonary disease) COPD type: unspecified COPD Qualified Code(s): J44.9 - Chronic obstructive pulmonary disease, unspecified (13) Hypothyroidism Hypothyroidism type: unspecified Qualified Code(s): E03.9 - Hypothyroidism, unspecified (14) Hypertension Hypertension type: essential hypertension Qualified Code(s): I10 - Essential (primary) hypertension (18) CAD (coronary artery disease) Associated angina: without angina Coronary Disease-Associated Artery/Lesion type: [place] artery [place] vs. 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
[2023-04-07 07:51] LABS: Basophils # (auto) 0.03 K/uL (0.00-0.20); Basophils % (auto) 0.4 %; Eosinophils # (auto) 0.07 K/uL (0.00-0.50); Eosinophils % (auto) 0.9 %; Hematocrit (blood only) 28.4 % (42.0-52.0); Hemoglobin 9.2 g/dl (14.0-18.0); Immature Granulocytes # (auto) 0.05 K/uL (0.01-0.20); Immature Granulocytes % (auto) 0.6 %; Lymphocytes # (auto) 0.97 K/uL (1.20-3.40); Lymphocytes % (auto) 12.5 %; Mean Corpuscular Hgb Conc 32.4 g/dL (32.0-36.0); Mean Corpuscular Volume 89.6 fL (80.0-100.0); Mean Platelet Volume 8.9 fL (9.4-12.4); Monocytes # (auto) 0.29 K/uL (0.11-0.59); Monocytes % (auto) 3.8 %; Neutrophils # (auto) 6.32 K/uL (1.40-6.50); Neutrophils % (auto) 81.8 %; Platelet Count 227 K/uL (130-400); RDW Coefficient of Variation 14.9 % (11.5-14.5); Red Blood Count 3.17 M/uL (4.70-6.10); White Blood Count 7.73 K/ul (4.8-10.8)
[2023-04-07 08:08] LABS: Albumin Globulin Ratio 0.6 (0.9-2); Albumin Level 1.9 gm/dl (3.4-5.0); BUN Creatinine Ratio 11.1 (10-20); Bilirubin,Total 0.2 mg/dl (0.2-1.0); Calcium 7.8 mg/dl (8.6-10.3); Creatinine Clr Calc Pharmacy 16.7 ml/min; Est GFR (African American) 18.2 ml/min; Est GFR (Non-African American) 15.7 ml/min; Globulin 3.3 gm/dl (2.5-4.0); Potassium 3.1 mmol/L (3.5-5.1); Total Protein 5.2 gm/dl (6.0-8.3)
[2023-04-07] MEDS: PANTOprazole 40 MG TAB PO SCH ×2 (08:39→21:19)
[2023-04-07] MEDS: ASPIRIN 81 MG ECTAB PO SCH (08:39)
[2023-04-07] MEDS: APIXABAN 2.5 MG TAB PO SCH ×2 (08:39→21:20)
[2023-04-07] MEDS: METOPROLOL TARTRATE 25 MG TAB PO SCH ×2 (08:39→21:25)
[2023-04-07] MEDS: GABAPENTIN 100 MG CAP PO SCH (08:39)
[2023-04-07] MEDS: UMECLIDINIUM BROMIDE 62.5MCG/BLISTER 7 PUFFS/INHALER INH SCH (08:40)
[2023-04-07] MEDS: FLUTICASONE/VILANTEROL 100/25MCG 14 PUFFS/INHALER INH SCH (08:40)
[2023-04-07] MEDS: INSULIN ASPART PER UNIT CHARGE SC SCH ×4 (08:41→21:36)
[2023-04-07] MEDS: POLYETHYLENE (MIRALAX) 17 GM PACK PO PRN (08:45)
[2023-04-07] MEDS: clonazePAM 1 MG TAB PO SCH ×2 (08:45→21:36)
--- NOTE | 2023-04-07 19:45 | Billing Data ---
Date of Service April 07, 2023 Coding Level of Care Code 37662 SUB INP/OBS CARE
[2023-04-07] MEDS: ROSUVASTATIN CALCIUM 10 MG TAB PO SCH (21:19)
[2023-04-07] MEDS: TAMSULOSIN HCL 0.4 MG CAP PO SCH (21:19)
[2023-04-07] MEDS: FINASTERIDE 5 MG TAB PO SCH (21:20)
[2023-04-07] MEDS: GABAPENTIN 300 MG CAP PO SCH (21:23)
[2023-04-08] MEDS: ACETAMINOPHEN 325 MG TAB PO SCH ×4 (05:30→23:32)
[2023-04-08] MEDS: LEVOTHYROXINE SODIUM 88 MCG TABLET PO SCH (05:30)
[2023-04-08] MEDS: AMPICILLIN 2,000 MG in SODIUM CHLOR 0.9% MINI-B 100 ML IV SCH ×3 (05:31→21:08)
--- NOTE | 2023-04-08 07:24 | Hospitalist Progress Note ---
"Date of Service April 08, 2023 Assessment & Plan (1) Hypotension: (2) Elevated troponin I level: (3) Recurrent bacteremia: (4) Anxiety: (5) Anemia of chronic disease: (6) Chronic kidney disease, stage 4 (severe): (7) Acute kidney injury superimposed on CKD: (8) Moderate calcific aortic stenosis: (9) Peripheral vascular disease: (10) Lower extremity edema: (11) Benign prostatic hyperplasia with urinary obstruction: (12) COPD (chronic obstructive pulmonary disease): (13) Hypothyroidism: (14) Hypertension: (15) Dyslipidemia: (16) Paroxysmal atrial fibrillation: (17) Vitamin D deficiency: (18) CAD (coronary artery disease): (19) GERD (gastroesophageal reflux disease): (20) CHF (congestive heart failure): (21) Diabetes: (22) Hypokalemia: Plan 87 yo male with PMHx of CKD Stage 4 (previous admission with [facility] requiring temporary dialysis), DVT, T2DM insulin dependent, HTN, hypothyroidism, AFib, CAD, BPH, GERD, recurrent bacteremia, aortic stenosis, anxiety, and CHF who presents with unwitnessed fall with concomitant bowel/bladder incontinence and associated hypotension. Pt to go to [place] on Monday. 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, blood cx + for Enterococcus Faecalis with repeat cx on 03/22 and 03/25 negative, -UA negative, TTE negative for vegetations, ID noting foot xray negative for osteo of the 2nd digit; could consider MRI; pt and decline at this time -PICC placed, plan for ampicillin for 2-3 mo, then will do repeat cx 1-2 weeks after finishing ABxs, -will continue to hold IV and oral iron in setting of bacteremia -PT/OT recommending SNF --> waiting for placement [facility] on CKD stage 4 | Suspected ATN | hypokalemia | hypocalcemia -Cr baseline ~ 2, peak this admission 5.92, started to trend up again 3.33 --> 3.80, 04/08/23 -Elevation in creatinine prerenal, likely secondary to dehydration vs ampicillin use -Continue to hold home Bumex, pt does not want dialysis at this time, -LE edema causing continuous discomfort, giving renzo tylenol and oxy 2.5 mg prn for pain -Hypokalemia (2.8) noted, 04/08/23 --> 20 mEq KCl, BID given; corrected Ca (7.8 --> 9.5) Alb 1.9 Chronic HFpEF | Aortic stenosis | Peripheral edema | CAD/PVD/HLD | Afib -Continue to hold home Bumex -cont. metoprolol; Eliquis -cont. statin -cont. ASA, statin DM2 -Lantus + SSI Diabetic neuropathy -cont. gabapentin COPD -cont. home inhalers Anxiety -cont. clonazepam BPH -cont. finasteride, tamsulosin DVT ppx: Eliquis FEN/GI: DM2 Admission and Anticipated Discharge Date Admission Date: March 19, 2023 Supervising Physician Co-Signing Physician Notes I personally examined the patient and verified all aguayo points of history and exam, discussed case, and agree with decision making with Dr Aponte. would like to be able to get out of bed more. nursing was in the room during some of this conversation and noted they would try to assist as best as his weakness would allow. Vitals noted, in general he is resting comfortably. Breathing unlabored no accessory muscle use good effort. Skin shows no rashes no pallor or icterus. Neuro without focal deficits, although more alert seems more easily confused than was his prior norm. Recurrent enterococcal bacteremiacontinue ampicillin. Depending on his ongoing lifespan and shifting goals of care, I agree that suppressive therapy would be quite reasonable if he has ongoing aggressive goals. At the same time, would at least treat for a reasonable duration even if he truly wants comfort simply because the infection is so easy to treat, if not eradicate. for SNF - based on arrangements, probably Monday acute renal failurenow leveled out. Probably was poor flowprerenalATN. does not want HD. K low enough today to possibly cause some weakness - replaced. f/u BMP. Dispositionanticipate SNF Monday Subjective 87 yo male with PMHx of CKD Stage 4 (previous admission with [facility] requiring temporary dialysis), DVT, X3IM-isaunnh dependent, HTN, hypothyroidism, afib, CAD, BPH, GERD, recurrent bacteremia, aortic stenosis, anxiety, and CHF who presents with unwitnessed fall with concomitant bowel/bladder incontinence and associated hypotension. Today, pt is alert, w/o distress. He states he feels good today. Very agreeable and cooperative with exam. Pt awaiting placement in a SNF and did not have any questions today. placement. Review of Systems Constitutional: no fever and no chills Respiratory: no cough and no dyspnea Cardiovascular: no chest pain and no palpitations Gastrointestinal: no abdominal pain, no nausea and no vomiting Genitourinary: no dysuria or no difficulty urinating Physical Exam Constitutional: WD/WN, vitals as above Respiratory: normal respiratory effort, lungs clear to auscultation Cardiovascular: Rate/Rhythm: regular rate and regular rhythm Heart Sounds: + murmur Gastrointestinal (Abdomen): normal bowel sounds, soft, nontender, no hepatosplenomegaly Musculoskeletal: Extremities: extremities normal to inspection Results & Data Results & Data Vital Signs (Past 12 Hours) Vital Signs Temp Pulse Resp BP Pulse Ox O2 Del Method 04/07/23 21:21 36.3 C L 79 16 152/80 H 97 Room Air (12) COPD (chronic obstructive pulmonary disease) COPD type: unspecified COPD Qualified Code(s): J44.9 - Chronic obstructive pulmonary disease, unspecified (13) Hypothyroidism Hypothyroidism type: unspecified Qualified Code(s): E03.9 - Hypothyroidism, unspecified (14) Hypertension Hypertension type: essential hypertension Qualified Code(s): I10 - Essential (primary) hypertension (18) CAD (coronary artery disease) Associated angina: without angina Coronary Disease-Associated Artery/Lesion type: [place] artery [place] vs. transplanted heart: [place] heart Qualified Code(s): I25.10 - Atherosclerotic heart disease of [place] coronary artery without angina pectoris (19) GERD (gastroesophageal reflux disease) Esophagitis presence: esophagitis presence not specified Qualified Code(s): K21.9 - Gastro-esophageal reflux disease without esophagitis (20) CHF (congestive heart failure) Heart failure chronicity: unspecified Heart failure type: unspecified Qualified Code(s): I50.9 - Heart failure, unspecified (21) Diabetes Diabetes mellitus complication status: with hyperglycemia Diabetes mellitus detention insulin use: with detention use Diabetes mellitus type: type 2 Qualified Code(s): E11.65 - Type 2 diabetes mellitus with hyperglycemia; Z79.4 - [facility] (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"
[2023-04-08 07:38] LABS: Basophils # (auto) 0.04 K/uL (0.00-0.20); Basophils % (auto) 0.6 %; Eosinophils # (auto) 0.22 K/uL (0.00-0.50); Eosinophils % (auto) 3.3 %; Hematocrit (blood only) 27.8 % (42.0-52.0); Hemoglobin 8.9 g/dl (14.0-18.0); Immature Granulocytes # (auto) 0.05 K/uL (0.01-0.20); Immature Granulocytes % (auto) 0.7 %; Lymphocytes # (auto) 1.64 K/uL (1.20-3.40); Lymphocytes % (auto) 24.3 %; Mean Corpuscular Hemoglobin 29.4 pg (25.0-34.0); Mean Corpuscular Volume 91.7 fL (80.0-100.0); Mean Platelet Volume 9.3 fL (9.4-12.4); Monocytes % (auto) 5.9 %; Neutrophils # (auto) 4.41 K/uL (1.40-6.50); Neutrophils % (auto) 65.2 %; Platelet Count 215 K/uL (130-400); RDW Coefficient of Variation 14.9 % (11.5-14.5); RDW Standard Deviation 50.4 fL (36.4-46.3); Red Blood Count 3.03 M/uL (4.70-6.10); White Blood Count 6.76 K/ul (4.8-10.8)
[2023-04-08 07:53] LABS: Albumin Globulin Ratio 0.6 (0.9-2); Albumin Level 1.9 gm/dl (3.4-5.0); BUN Creatinine Ratio 10.8 (10-20); Bilirubin,Total 0.2 mg/dl (0.2-1.0); Calcium 7.6 mg/dl (8.6-10.3); Creatinine Clr Calc Pharmacy 14.5 ml/min; Est GFR (African American) 15.5 ml/min; Est GFR (Non-African American) 13.4 ml/min; Potassium 2.8 mmol/L (3.5-5.1); Total Protein 4.9 gm/dl (6.0-8.3)
[2023-04-08] MEDS: PANTOprazole 40 MG TAB PO SCH ×2 (09:26→20:57)
[2023-04-08] MEDS: GABAPENTIN 100 MG CAP PO SCH (09:26)
[2023-04-08] MEDS: ASPIRIN 81 MG ECTAB PO SCH (09:27)
[2023-04-08] MEDS: APIXABAN 2.5 MG TAB PO SCH ×2 (09:27→20:58)
[2023-04-08] MEDS: METOPROLOL TARTRATE 25 MG TAB PO SCH ×2 (09:27→20:58)
[2023-04-08] MEDS: POTASSIUM CHLORIDE CRTAB 20 MEQ TABCR PO SCH ×3 (09:34→20:57)
[2023-04-08] MEDS: FLUTICASONE/VILANTEROL 100/25MCG 14 PUFFS/INHALER INH SCH (09:34)
[2023-04-08] MEDS: UMECLIDINIUM BROMIDE 62.5MCG/BLISTER 7 PUFFS/INHALER INH SCH (09:35)
[2023-04-08] MEDS: INSULIN ASPART PER UNIT CHARGE SC SCH ×4 (09:43→21:01)
[2023-04-08] MEDS: clonazePAM 1 MG TAB PO SCH ×2 (09:43→21:03)
--- NOTE | 2023-04-08 18:38 | Billing Data ---
Date of Service April 08, 2023 Coding Level of Care Code 62615 SUB INP/OBS CARE
[2023-04-08] MEDS: TAMSULOSIN HCL 0.4 MG CAP PO SCH (20:57)
[2023-04-08] MEDS: ROSUVASTATIN CALCIUM 10 MG TAB PO SCH (20:57)
[2023-04-08] MEDS: GABAPENTIN 300 MG CAP PO SCH (20:58)
[2023-04-08] MEDS: FINASTERIDE 5 MG TAB PO SCH (20:58)
[2023-04-09] MEDS: AMPICILLIN 2,000 MG in SODIUM CHLOR 0.9% MINI-B 100 ML IV SCH ×3 (05:43→22:04)
[2023-04-09] MEDS: ACETAMINOPHEN 325 MG TAB PO SCH ×4 (05:43→23:40)
[2023-04-09] MEDS: LEVOTHYROXINE SODIUM 88 MCG TABLET PO SCH (05:43)
[2023-04-09 07:22] LABS: Basophils # (auto) 0.04 K/uL (0.00-0.20); Basophils % (auto) 0.6 %; Eosinophils # (auto) 0.18 K/uL (0.00-0.50); Eosinophils % (auto) 2.8 %; Hemoglobin 9.4 g/dl (14.0-18.0); Immature Granulocytes # (auto) 0.05 K/uL (0.01-0.20); Immature Granulocytes % (auto) 0.8 %; Lymphocytes # (auto) 1.56 K/uL (1.20-3.40); Lymphocytes % (auto) 24.2 %; Mean Corpuscular Hemoglobin 29.2 pg (25.0-34.0); Mean Corpuscular Hgb Conc 31.3 g/dL (32.0-36.0); Mean Corpuscular Volume 93.2 fL (80.0-100.0); Monocytes # (auto) 0.37 K/uL (0.11-0.59); Monocytes % (auto) 5.7 %; Neutrophils # (auto) 4.24 K/uL (1.40-6.50); Neutrophils % (auto) 65.9 %; Platelet Count 200 K/uL (130-400); RDW Coefficient of Variation 15.8 % (11.5-14.5); RDW Standard Deviation 53.4 fL (36.4-46.3); Red Blood Count 3.22 M/uL (4.70-6.10); White Blood Count 6.44 K/ul (4.8-10.8)
[2023-04-09 07:44] LABS: Albumin Globulin Ratio 0.6 (0.9-2); Albumin Level 1.8 gm/dl (3.4-5.0); BUN Creatinine Ratio 10.9 (10-20); Bilirubin,Total 0.2 mg/dl (0.2-1.0); Calcium 7.6 mg/dl (8.6-10.3); Est GFR (African American) 16.2 ml/min; Est GFR (Non-African American) 13.9 ml/min; Potassium 3.8 mmol/L (3.5-5.1); Total Protein 4.8 gm/dl (6.0-8.3)
--- NOTE | 2023-04-09 09:07 | Hospitalist Progress Note ---
"Date of Service April 09, 2023 Assessment & Plan (1) Hypotension: (2) Elevated troponin I level: (3) Recurrent bacteremia: (4) Anxiety: (5) Anemia of chronic disease: (6) Chronic kidney disease, stage 4 (severe): (7) Acute kidney injury superimposed on CKD: (8) Moderate calcific aortic stenosis: (9) Peripheral vascular disease: (10) Lower extremity edema: (11) Benign prostatic hyperplasia with urinary obstruction: (12) COPD (chronic obstructive pulmonary disease): (13) Hypothyroidism: (14) Hypertension: (15) Dyslipidemia: (16) Paroxysmal atrial fibrillation: (17) Vitamin D deficiency: (18) CAD (coronary artery disease): (19) GERD (gastroesophageal reflux disease): (20) CHF (congestive heart failure): (21) Diabetes: (22) Hypokalemia: Plan 87 yo male with PMHx of CKD Stage 4 (previous admission with [facility] requiring temporary dialysis), DVT, T2DM insulin dependent, HTN, hypothyroidism, AFib, CAD, BPH, GERD, recurrent bacteremia, aortic stenosis, anxiety, and CHF who presents with unwitnessed fall with concomitant bowel/bladder incontinence and associated hypotension. Pt to go to [facility] on Monday. 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, blood cx + for Enterococcus Faecalis with repeat cx on 03/22 and 03/25 negative, -UA negative, TTE negative for vegetations, ID noting foot xray negative for osteo of the 2nd digit; could consider MRI; pt and decline at this time -PICC placed, plan for ampicillin for 2-3 mo, then will do repeat cx 1-2 weeks after finishing ABxs, -will continue to hold IV and oral iron in setting of bacteremia -PT/OT recommending SNF --> waiting for placement [facility] on CKD stage 4 | Suspected ATN | hypokalemia | hypocalcemia -Cr baseline ~ 2, peak this admission 5.92, Cr 3.68 04/08/23 -Elevation in creatinine prerenal, likely secondary to dehydration vs ampicillin use (although BUN/Cr ~ 11) -Continue to hold home Bumex, pt does not want dialysis at this time, -LE edema causing continuous discomfort, giving renzo tylenol and oxy 2.5 mg prn for pain -Hypokalemia (2.8) noted, 04/08/23 --> 20 mEq KCl, BID given; K, 3.8 (04/09/23) corrected Ca (7.6 --> 9.3) Alb 1.9 Chronic HFpEF | Aortic stenosis | Peripheral edema | CAD/PVD/HLD | Afib -Continue to hold home Bumex -cont. metoprolol; Eliquis -cont. statin -cont. ASA, statin DM2 -Lantus + SSI Diabetic neuropathy -cont. gabapentin COPD -cont. home inhalers Anxiety -cont. clonazepam BPH -cont. finasteride, tamsulosin DVT ppx: Eliquis FEN/GI: T2DM diet Admission and Anticipated Discharge Date Admission Date: March 19, 2023 Supervising Physician Co-Signing Physician Notes I personally examined the patient and verified all aguayo points of history and exam, discussed case, and agree with decision making with Dr Aponte. Sitting in a chair. Still notes he would like to be up more. No other new complaints. Vitals noted, in general he is resting comfortably. Sitting in a chair. breathing unlabored no accessory muscle use good effort. Skin shows no rashes no pallor or icterus. Neuro without focal deficits, although more alert seems more easily confused than was his prior norm. Recurrent enterococcal bacteremiacontinue ampicillin. Depending on his ongoing lifespan and shifting goals of care, I agree that suppressive therapy would be quite reasonable if he has ongoing aggressive goals. At the same time, would at least treat for a reasonable duration even if he truly wants comfort simply because the infection is so easy to treat, if not eradicate. for SNF - probably Monday acute renal failurenow leveled out. Probably was poor flowprerenalATN. does not want HD. K replaced. Dispositionanticipate SNF Monday Subjective 87 yo male with PMHx of CKD Stage 4 (previous admission with [facility] requiring temporary dialysis), DVT, A0NR-nnigfty dependent, HTN, hypothyroidism, afib, CAD, BPH, GERD, recurrent bacteremia, aortic stenosis, anxiety, and CHF who presents with unwitnessed fall with concomitant bowel/bladder incontinence and associated hypotension. Today, pt is alert, w/o distress. He states he feels good today. Very agreeable and cooperative with exam. Pt awaiting placement in a SNF and did not have any questions today. placement. Review of Systems Review of Systems: Per HPI. Constitutional: no fever and no chills Respiratory: no cough and no dyspnea Cardiovascular: no chest pain and no palpitations Gastrointestinal: no abdominal pain, no nausea and no vomiting Genitourinary: no dysuria or no difficulty urinating Physical Exam Constitutional: WD/WN, vitals as above Respiratory: normal respiratory effort, lungs clear to auscultation Cardiovascular: Rate/Rhythm: regular rate and regular rhythm Heart Sounds: + murmur Extremities: + calf tenderness and + pedal edema Gastrointestinal (Abdomen): normal bowel sounds, soft, nontender, no hepatosplenomegaly Results & Data Results & Data Vital Signs (Past 12 Hours) Vital Signs Temp Pulse Pulse Resp BP BP Pulse Ox 04/09/23 07:44 36.7 C 67 16 155/71 H 97 04/09/23 07:25 36.6 C 67 16 99/58 L 95 04/08/23 22:18 O2 Del Method 04/09/23 07:44 Room Air 04/09/23 07:25 Room Air 04/08/23 22:18 Room Air Resident Activity Tracking Resident Involvement: Resident Care Provided Care Provided: Adult Hospital Medicine (12) COPD (chronic obstructive pulmonary disease) COPD type: unspecified COPD Qualified Code(s): J44.9 - Chronic obstructive pulmonary disease, unspecified (13) Hypothyroidism Hypothyroidism type: unspecified Qualified Code(s): E03.9 - Hypothyroidism, unspecified (14) Hypertension Hypertension type: essential hypertension Qualified Code(s): I10 - Essential (primary) hypertension (18) CAD (coronary artery disease) Associated angina: without angina Coronary Disease-Associated Artery/Lesion type: [place] artery [place] vs. transplanted heart: [place] heart Qualified Code(s): I25.10 - Atherosclerotic heart disease of [place] coronary artery without angina pectoris (19) GERD (gastroesophageal reflux disease) Esophagitis presence: esophagitis presence not specified Qualified Code(s): K21.9 - Gastro-esophageal reflux disease without esophagitis (20) CHF (congestive heart failure) Heart failure chronicity: unspecified Heart failure type: unspecified Qualified Code(s): I50.9 - Heart failure, unspecified (21) Diabetes Diabetes mellitus complication status: with hyperglycemia Diabetes mellitus [facility] insulin use: with [facility] use Diabetes mellitus type: type 2 Qualified Code(s): E11.65 - Type 2 diabetes mellitus with hyperglycemia; Z79.4 - [facility] (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"
[2023-04-09] MEDS: APIXABAN 2.5 MG TAB PO SCH ×2 (09:10→22:06)
[2023-04-09] MEDS: ASPIRIN 81 MG ECTAB PO SCH (09:13)
[2023-04-09] MEDS: FLUTICASONE/VILANTEROL 100/25MCG 14 PUFFS/INHALER INH SCH (09:14)
[2023-04-09] MEDS: GABAPENTIN 100 MG CAP PO SCH (09:14)
[2023-04-09] MEDS: METOPROLOL TARTRATE 25 MG TAB PO SCH ×2 (09:15→22:04)
[2023-04-09] MEDS: PANTOprazole 40 MG TAB PO SCH ×2 (09:16→22:05)
[2023-04-09] MEDS: POTASSIUM CHLORIDE CRTAB 20 MEQ TABCR PO SCH (09:16)
[2023-04-09] MEDS: UMECLIDINIUM BROMIDE 62.5MCG/BLISTER 7 PUFFS/INHALER INH SCH (09:17)
[2023-04-09] MEDS: INSULIN ASPART PER UNIT CHARGE SC SCH ×4 (09:17→22:10)
[2023-04-09] MEDS: clonazePAM 1 MG TAB PO SCH ×2 (09:31→22:10)
--- NOTE | 2023-04-09 18:09 | Billing Data ---
Date of Service April 09, 2023 Coding Level of Care Code 42540 SUB INP/OBS CARE
[2023-04-09] MEDS: FINASTERIDE 5 MG TAB PO SCH (22:05)
[2023-04-09] MEDS: TAMSULOSIN HCL 0.4 MG CAP PO SCH (22:05)
[2023-04-09] MEDS: GABAPENTIN 300 MG CAP PO SCH (22:06)
[2023-04-09] MEDS: ROSUVASTATIN CALCIUM 10 MG TAB PO SCH (22:06)
[2023-04-10] MEDS: AMPICILLIN 2,000 MG in SODIUM CHLOR 0.9% MINI-B 100 ML IV SCH ×3 (06:21→22:20)
[2023-04-10] MEDS: ACETAMINOPHEN 325 MG TAB PO SCH ×3 (06:21→17:19)
[2023-04-10] MEDS: LEVOTHYROXINE SODIUM 88 MCG TABLET PO SCH (06:21)
[2023-04-10 07:31] LABS: Basophils # (auto) 0.05 K/uL (0.00-0.20); Basophils % (auto) 0.6 %; Eosinophils # (auto) 0.16 K/uL (0.00-0.50); Immature Granulocytes # (auto) 0.04 K/uL (0.01-0.20); Immature Granulocytes % (auto) 0.5 %; Lymphocytes # (auto) 1.67 K/uL (1.20-3.40); Lymphocytes % (auto) 20.7 %; Mean Corpuscular Hemoglobin 29.2 pg (25.0-34.0); Mean Corpuscular Hgb Conc 31.3 g/dL (32.0-36.0); Mean Corpuscular Volume 93.6 fL (80.0-100.0); Mean Platelet Volume 9.1 fL (9.4-12.4); Monocytes # (auto) 0.37 K/uL (0.11-0.59); Monocytes % (auto) 4.6 %; Neutrophils # (auto) 5.79 K/uL (1.40-6.50); Neutrophils % (auto) 71.6 %; Platelet Count 206 K/uL (130-400); RDW Coefficient of Variation 15.9 % (11.5-14.5); RDW Standard Deviation 54.1 fL (36.4-46.3); Red Blood Count 3.42 M/uL (4.70-6.10); White Blood Count 8.08 K/ul (4.8-10.8)
--- NOTE | 2023-04-10 07:33 | Hospitalist Progress Note ---
"Date of Service April 10, 2023 Assessment & Plan (1) Hypotension: (2) Elevated troponin I level: (3) Recurrent bacteremia: (4) Anxiety: (5) Anemia of chronic disease: (6) Chronic kidney disease, stage 4 (severe): (7) Acute kidney injury superimposed on CKD: (8) Moderate calcific aortic stenosis: (9) Peripheral vascular disease: (10) Lower extremity edema: (11) Benign prostatic hyperplasia with urinary obstruction: (12) COPD (chronic obstructive pulmonary disease): (13) Hypothyroidism: (14) Hypertension: (15) Dyslipidemia: (16) Paroxysmal atrial fibrillation: (17) Vitamin D deficiency: (18) CAD (coronary artery disease): (19) GERD (gastroesophageal reflux disease): (20) CHF (congestive heart failure): (21) Diabetes: (22) Hypokalemia: Plan 87 yo male with PMHx of CKD Stage 4 (previous admission with JUDI requiring temporary dialysis), DVT, T2DM insulin dependent, HTN, hypothyroidism, AFib, CAD, BPH, GERD, recurrent bacteremia, aortic stenosis, anxiety, and CHF who presents with unwitnessed fall with concomitant bowel/bladder incontinence and associated hypotension. 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 Unstageable pressure injury on coccyx -Wound care on case -waffle boots -daily change and as needed JUDI on CKD stage 4 | Suspected ATN | hypokalemia | hypocalcemia -Cr baseline ~ 2, peak this admission 5.92, Cr 3.68 04/08/23 -Elevation in creatinine prerenal, likely secondary to dehydration vs ampicillin use (although BUN/Cr ~ 11) -Continue to hold home Bumex, pt does not want dialysis at this time -LE edema causing continuous discomfort, giving renzo tylenol and oxy 2.5 mg prn for pain -Hypokalemia resolved Chronic HFpEF | Aortic stenosis | Peripheral edema | CAD/PVD/HLD | Afib -Continue to hold home Bumex due to JUDI -cont. metoprolol; Eliquis -cont. statin -cont. ASA, statin DM2 -Lantus + SSI Diabetic neuropathy -cont. gabapentin COPD -cont. home inhalers Anxiety -cont. clonazepam BPH -cont. finasteride, tamsulosin Code: DNR/DNI DVT ppx: Eliquis FEN/GI: T2DM diet Dispo - -PT/OT recommending SNF -->Patient decline today [place], and patient preferred being discharged home with HH Admission and Anticipated Discharge Date Admission Date: March 19, 2023 Supervising Physician Co-Signing Physician Notes Resident Physician Supervision Note: I independently interviewed and examined the patient and verified the aguayo history and physical, reviewed labs and image studies and agree with resident findings and care plan. Subjective 87 yo male with PMHx of CKD Stage 4 (previous admission with JUDI requiring temporary dialysis), DVT, [id number] dependent, HTN, hypothyroidism, afib, CAD, BPH, GERD, recurrent bacteremia, aortic stenosis, anxiety, and CHF who presents with unwitnessed fall with concomitant bowel/bladder incontinence and associated hypotension. Today, pt is alert, w/o distress. He states he feels good today. Very agreeable and cooperative with exam. Pt awaiting placement in a SNF and did not have any questions today. placement. Review of Systems Review of Systems: Per HPI. Physical Exam Constitutional: WD/WN, vitals as above Respiratory: normal respiratory effort, lungs clear to auscultation Cardiovascular: Rate/Rhythm: regular rate and regular rhythm Extremities: + edema Gastrointestinal (Abdomen): normal bowel sounds, soft, nontender, no hepatosplenomegaly Psychiatric: A+Ox3, euthymic affect Results & Data Results & Data Vital Signs (Past 12 Hours) Vital Signs Temp Pulse Resp BP BP Pulse Ox O2 Del Method 04/09/23 23:30 146/58 H 04/09/23 21:03 36.6 C 80 18 190/63 H 98 Room Air 04/09/23 20:00 Room Air Resident Activity Tracking Resident Involvement: Resident Care Provided Care Provided: Adult Hospital Medicine (12) COPD (chronic obstructive pulmonary disease) COPD type: unspecified COPD Qualified Code(s): J44.9 - Chronic obstructive pulmonary disease, unspecified (13) Hypothyroidism Hypothyroidism type: unspecified Qualified Code(s): E03.9 - Hypothyroidism, unspecified (14) Hypertension Hypertension type: essential hypertension Qualified Code(s): I10 - Essential (primary) hypertension (18) CAD (coronary artery disease) Associated angina: without angina Coronary Disease-Associated Artery/Lesion type: [place] artery [place] vs. transplanted heart: [place] heart Qualified Code(s): I25.10 - Atherosclerotic heart disease of [place] coronary artery without angina pectoris (19) GERD (gastroesophageal reflux disease) Esophagitis presence: esophagitis presence not specified Qualified Code(s): K21.9 - Gastro-esophageal reflux disease without esophagitis (20) CHF (congestive heart failure) Heart failure chronicity: unspecified Heart failure type: unspecified Qualified Code(s): I50.9 - Heart failure, unspecified (21) Diabetes Diabetes mellitus complication status: with hyperglycemia Diabetes mellitus director long term care insulin use: with usp use Diabetes mellitus type: type 2 Qualified Code(s): E11.65 - Type 2 diabetes mellitus with hyperglycemia; Z79.4 - terminal operator (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"
[2023-04-10] MEDS: INSULIN ASPART PER UNIT CHARGE SC SCH ×4 (08:08→20:47)
[2023-04-10 08:59] LABS: Albumin Globulin Ratio 0.6 (0.9-2); BUN Creatinine Ratio 11.4 (10-20); Bilirubin,Total 0.3 mg/dl (0.2-1.0); Calcium 7.5 mg/dl (8.6-10.3); Creatinine Clr Calc Pharmacy 16.2 ml/min; Est GFR (African American) 17.7 ml/min; Est GFR (Non-African American) 15.3 ml/min; Globulin 3.3 gm/dl (2.5-4.0); Potassium 3.7 mmol/L (3.5-5.1); Total Protein 5.3 gm/dl (6.0-8.3)
[2023-04-10] MEDS: FLUTICASONE/VILANTEROL 100/25MCG 14 PUFFS/INHALER INH SCH (08:59)
[2023-04-10] MEDS: METOPROLOL TARTRATE 25 MG TAB PO SCH ×2 (08:59→21:02)
[2023-04-10] MEDS: UMECLIDINIUM BROMIDE 62.5MCG/BLISTER 7 PUFFS/INHALER INH SCH (08:59)
[2023-04-10] MEDS: GABAPENTIN 100 MG CAP PO SCH (09:01)
[2023-04-10] MEDS: PANTOprazole 40 MG TAB PO SCH ×2 (09:01→21:02)
[2023-04-10] MEDS: ASPIRIN 81 MG ECTAB PO SCH (09:01)
[2023-04-10] MEDS: clonazePAM 1 MG TAB PO SCH ×2 (09:06→21:01)
[2023-04-10] MEDS: APIXABAN 2.5 MG TAB PO SCH ×2 (10:16→21:03)
[2023-04-10] MEDS ORDERED: MICONAZOLE NITRATE POWDER 85 GM EXT PRN (11:46)
[2023-04-10] MEDS: TAMSULOSIN HCL 0.4 MG CAP PO SCH (21:01)
[2023-04-10] MEDS: ROSUVASTATIN CALCIUM 10 MG TAB PO SCH (21:02)
[2023-04-10] MEDS: FINASTERIDE 5 MG TAB PO SCH (21:03)
[2023-04-10] MEDS: GABAPENTIN 300 MG CAP PO SCH (21:03)
[2023-04-10] MEDS: MICONAZOLE NITRATE POWDER 85 GM EXT SCH (22:53)
[2023-04-11] MEDS: ACETAMINOPHEN 325 MG TAB PO SCH ×4 (00:21→17:31)
[2023-04-11] MEDS: AMPICILLIN 2,000 MG in SODIUM CHLOR 0.9% MINI-B 100 ML IV SCH ×3 (05:41→21:58)
[2023-04-11] MEDS: LEVOTHYROXINE SODIUM 88 MCG TABLET PO SCH (05:41)
--- NOTE | 2023-04-11 06:52 | Hospitalist Progress Note ---
"Date of Service April 11, 2023 Assessment & Plan (1) Hypotension: (2) Elevated troponin I level: (3) Recurrent bacteremia: (4) Anxiety: (5) Anemia of chronic disease: (6) Chronic kidney disease, stage 4 (severe): (7) Acute kidney injury superimposed on CKD: (8) Moderate calcific aortic stenosis: (9) Peripheral vascular disease: (10) Lower extremity edema: (11) Benign prostatic hyperplasia with urinary obstruction: (12) COPD (chronic obstructive pulmonary disease): (13) Hypothyroidism: (14) Hypertension: (15) Dyslipidemia: (16) Paroxysmal atrial fibrillation: (17) Vitamin D deficiency: (18) CAD (coronary artery disease): (19) GERD (gastroesophageal reflux disease): (20) CHF (congestive heart failure): (21) Diabetes: (22) Hypokalemia: Plan 87 yo male with PMHx of CKD Stage 4 (previous admission with JUDI requiring temporary dialysis), DVT, T2DM insulin dependent, HTN, hypothyroidism, AFib, CAD, BPH, GERD, recurrent bacteremia, aortic stenosis, anxiety, and CHF who presents with unwitnessed fall with concomitant bowel/bladder incontinence and associated hypotension. 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 Palliative care consulted, considering placement now. She is aware of inability of taking care of him Unstageable pressure injury on coccyx -Wound care on case -waffle boots -daily change and as needed JUDI on CKD stage 4 | Suspected ATN | hypokalemia | hypocalcemia -Cr baseline ~ 2, peak this admission 5.92, Cr 3.68 04/08/23 -Elevation in creatinine prerenal, likely secondary to dehydration vs ampicillin use (although BUN/Cr ~ 11) -Continue to hold home Bumex, pt does not want dialysis at this time -LE edema causing continuous discomfort, giving renzo tylenol and oxy 2.5 mg prn for pain -Hypokalemia resolved Chronic HFpEF | Aortic stenosis | Peripheral edema | CAD/PVD/HLD | Afib -Continue to hold home Bumex due to JUDI -cont. metoprolol; Eliquis -cont. statin -cont. ASA, statin DM2 -Lantus + SSI Diabetic neuropathy -cont. gabapentin COPD -cont. home inhalers Anxiety -cont. clonazepam BPH -cont. finasteride, tamsulosin Code: DNR/DNI DVT ppx: Eliquis FEN/GI: T2DM diet Dispo - -PT/OT recommending SNF -->Patient decline today [place], and patient preferred being discharged home with HH Admission and Anticipated Discharge Date Admission Date: March 19, 2023 Supervising Physician Co-Signing Physician Notes Resident Physician Supervision Note: I independently interviewed and examined the patient and verified the aguayo history and physical, reviewed labs and image studies and agree with resident findings and care plan. Subjective 87 yo male with PMHx of CKD Stage 4 (previous admission with JUDI requiring temporary dialysis), DVT, T2PR-nkmdhay dependent, HTN, hypothyroidism, afib, CAD, BPH, GERD, recurrent bacteremia, aortic stenosis, anxiety, and CHF who presents with unwitnessed fall with concomitant bowel/bladder incontinence and associated hypotension. Today, pt is alert, w/o distress. He states he feels good today. Very agreeable and cooperative with exam. Review of Systems Review of Systems: Per HPI. Physical Exam Constitutional: WD/WN, vitals as above Respiratory: normal respiratory effort, lungs clear to auscultation Cardiovascular: Rate/Rhythm: regular rate and regular rhythm Extremities: + edema Gastrointestinal (Abdomen): normal bowel sounds, soft, nontender, no hepatosplenomegaly Psychiatric: A+Ox3, euthymic affect Results & Data Results & Data Vital Signs (Past 12 Hours) Vital Signs Temp Pulse Resp BP Pulse Ox O2 Del Method 04/10/23 20:12 36.5 C 72 18 161/72 H 96 Room Air 04/10/23 19:40 Room Air Resident Activity Tracking Resident Involvement: Resident Care Provided Care Provided: Adult Hospital Medicine (12) COPD (chronic obstructive pulmonary disease) COPD type: unspecified COPD Qualified Code(s): J44.9 - Chronic obstructive pulmonary disease, unspecified (13) Hypothyroidism Hypothyroidism type: unspecified Qualified Code(s): E03.9 - Hypothyroidism, unspecified (14) Hypertension Hypertension type: essential hypertension Qualified Code(s): I10 - Essential (primary) hypertension (18) CAD (coronary artery disease) Associated angina: without angina Coronary Disease-Associated Artery/Lesion type: [place] artery [place] vs. transplanted heart: [place] heart Qualified Code(s): I25.10 - Atherosclerotic heart disease of [place] coronary artery without angina pectoris (19) GERD (gastroesophageal reflux disease) Esophagitis presence: esophagitis presence not specified Qualified Code(s): K21.9 - Gastro-esophageal reflux disease without esophagitis (20) CHF (congestive heart failure) Heart failure chronicity: unspecified Heart failure type: unspecified Qualified Code(s): I50.9 - Heart failure, unspecified (21) Diabetes Diabetes mellitus complication status: with hyperglycemia Diabetes mellitus terminologist insulin use: with residential use Diabetes mellitus type: type 2 Qualified Code(s): E11.65 - Type 2 diabetes mellitus with hyperglycemia; Z79.4 - termite control servicer (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"
[2023-04-11 07:22] LABS: Basophils # (auto) 0.05 K/uL (0.00-0.20); Basophils % (auto) 0.7 %; Eosinophils # (auto) 0.16 K/uL (0.00-0.50); Eosinophils % (auto) 2.2 %; Hematocrit (blood only) 29.6 % (42.0-52.0); Hemoglobin 9.4 g/dl (14.0-18.0); Immature Granulocytes # (auto) 0.04 K/uL (0.01-0.20); Immature Granulocytes % (auto) 0.6 %; Lymphocytes # (auto) 1.72 K/uL (1.20-3.40); Lymphocytes % (auto) 23.7 %; Mean Corpuscular Hemoglobin 29.6 pg (25.0-34.0); Mean Corpuscular Hgb Conc 31.8 g/dL (32.0-36.0); Mean Corpuscular Volume 93.1 fL (80.0-100.0); Mean Platelet Volume 9.4 fL (9.4-12.4); Monocytes # (auto) 0.49 K/uL (0.11-0.59); Monocytes % (auto) 6.8 %; Neutrophils # (auto) 4.79 K/uL (1.40-6.50); Platelet Count 176 K/uL (130-400); RDW Standard Deviation 54.7 fL (36.4-46.3); Red Blood Count 3.18 M/uL (4.70-6.10); White Blood Count 7.25 K/ul (4.8-10.8)
[2023-04-11 07:42] LABS: Albumin Globulin Ratio 0.6 (0.9-2); Albumin Level 1.9 gm/dl (3.4-5.0); BUN Creatinine Ratio 11.6 (10-20); Bilirubin,Total 0.2 mg/dl (0.2-1.0); Calcium 7.6 mg/dl (8.6-10.3); Creatinine Clr Calc Pharmacy 15.7 ml/min; Est GFR (African American) 17.1 ml/min; Est GFR (Non-African American) 14.7 ml/min; Potassium 3.5 mmol/L (3.5-5.1); Total Protein 4.9 gm/dl (6.0-8.3)
[2023-04-11] MEDS: GABAPENTIN 100 MG CAP PO SCH (07:49)
[2023-04-11] MEDS: METOPROLOL TARTRATE 25 MG TAB PO SCH ×2 (07:50→20:17)
[2023-04-11] MEDS: APIXABAN 2.5 MG TAB PO SCH ×2 (07:50→20:17)
[2023-04-11] MEDS: PANTOprazole 40 MG TAB PO SCH ×2 (07:51→20:16)
[2023-04-11] MEDS: FLUTICASONE/VILANTEROL 100/25MCG 14 PUFFS/INHALER INH SCH (07:51)
[2023-04-11] MEDS: ASPIRIN 81 MG ECTAB PO SCH (07:51)
[2023-04-11] MEDS: UMECLIDINIUM BROMIDE 62.5MCG/BLISTER 7 PUFFS/INHALER INH SCH (07:51)
[2023-04-11] MEDS: MICONAZOLE NITRATE POWDER 85 GM EXT SCH ×2 (07:53→20:18)
[2023-04-11] MEDS: clonazePAM 1 MG TAB PO SCH ×2 (07:55→20:16)
[2023-04-11] MEDS: INSULIN ASPART PER UNIT CHARGE SC SCH ×4 (08:30→20:20)
--- NOTE | 2023-04-11 14:31 | Palliative Care Consultation ---
Date of Consultation April 11, 2023 Assessment & Plan (1) Palliative care by specialist: History of Present Illness Attending Physician: Cyndi Grimm MD History of Present Illness Consult order ftoday for " On 04/11/23 @ 14:10 Bethanie De Los Santos Wrote deconditioning, decline dialysis" pt was seen earlier this admission 03/28/23 with ACP discussion. This is a duplicate consult order during same admission. I have updated primary team. Thank you for allowing us to participate in the ongoing care of this patient. Please don't hesitate to call or page with any additional concerns. Dr. Zoila Espinoza DNP Director, Palliative Care Allergies Allergy/AdvReac Type Severity Reaction Status Date / Time Cephalosporins Allergy Unknown Verified 03/19/23 00:43 ciprofloxacin [From Cipro] AdvReac Severe Unknown Verified 03/19/23 00:43 semaglutide [From Ozempic] AdvReac Severe NAUSEA/VOMI Verified 03/19/23 00:43 TING/ANOREX IA amlodipine AdvReac Intermediate SWELLING Verified 03/19/23 00:43 OF ANKLES ropinirole AdvReac Intermediate CHANGE IN Verified 03/19/23 00:43 MENTAL STATUS silver [From SilvaSorb] AdvReac (silver Verified 03/19/23 02:04 dressings) redness of skin Home Medications Medication Instructions Recorded Confirmed Type albuterol sulfate 90 mcg/actuation 2 puffs inhalation Q6H PRN 01/10/19 03/19/23 History aerosol inhaler shortness of breath or wheezing levothyroxine 88 mcg tablet 75 mcg PO DAILYBB #90 tabs 01/10/19 03/19/23 History potassium chloride 20 mEq 20 meq PO BID 01/10/19 03/19/23 History tablet,extended release finasteride 5 mg tablet 5 mg PO HS 04/23/19 03/19/23 History gabapentin 100 mg capsule See Rx Instructions .Route .COMPLEX 12/16/20 03/19/23 History aspirin 81 mg tablet,delayed 81 mg PO DAILY 10/11/21 03/19/23 History release pantoprazole 20 mg tablet,delayed 20 mg PO BID 02/07/22 03/19/23 History release acetaminophen 500 mg tablet 1,000 mg PO Q6H PRN PAIN/FEVER 05/28/22 03/19/23 History (Tylenol Extra Strength) clonazepam 1 mg tablet 1 mg PO BID 05/28/22 03/19/23 History fluticasone 500 mcg-salmeterol 50 1 inh inhalation BID 05/28/22 03/19/23 History mcg/dose blistr powdr for inhalation metoprolol tartrate 50 mg tablet 25 mg PO BID 05/28/22 03/19/23 History multivitamin with minerals 1 tab PO DAILY 05/28/22 03/19/23 History rosuvastatin 20 mg tablet 20 mg PO HS 05/28/22 03/19/23 History tiotropium bromide 2.5 2 puff inhalation DAILY 05/28/22 03/19/23 History mcg/actuation mist for inhalation vitamins A,C,B-ejdf-tbmkjd 2,148 1 tab PO DAILY 05/28/22 03/19/23 History mcg-113 mg-45 mg-17.4 mg tablet (PreserVision AREDS) apixaban 5 mg tablet (Eliquis) 2.5 mg PO Q12H 12/29/22 03/19/23 History calcium citrate 315 mg-vitamin D3 2 tab PO DAILY 12/29/22 03/19/23 History 5 mcg (200 unit) tablet (Calcium Citrate + D) loratadine 10 mg tablet (Claritin) 10 mg PO DAILY PRN Congestion 12/29/22 03/19/23 History tamsulosin 0.4 mg capsule (Flomax) 0.8 mg PO HS 12/29/22 03/19/23 History insulin aspart U-100 100 unit/mL 14 unit subcut TIDWMEAL 03/19/23 03/19/23 History subcutaneous solution (Novolog U-100 Insulin aspart) insulin glargine 100 unit/mL (3 26 unit subcut BID 03/19/23 03/19/23 History mL) subcutaneous pen (Lantus Solostar U-100 Insulin) Patient History Medical History (Updated 04/08/23 @ 12:57 by Travis Aponte MD) JUDI (acute kidney injury) Sepsis Acute pyelonephritis Moderate aortic stenosis History of deep venous thrombosis (DVT) of distal vein of left lower extremity Bradycardia Hypoglycemia Acidosis Thrombocytopenia Hypoglycemia due to insulin Wound of lower extremity Acute UTI (urinary tract infection) Non-ST elevation [place] (NSTEMI) AMS (altered mental status) Anemia of chronic disease Acute hyperkalemia UTI (urinary tract infection) Acute renal failure Hyperkalemia Acute UTI (urinary tract infection) Anemia of chronic disease Respiratory failure Pneumonia Acute kidney injury Hyperosmolar hyperglycemic state (HHS) Sepsis UTI (urinary tract infection) Leg wound, left Fluid overload Acute hyponatremia DVT (deep venous thrombosis) Abdominal distension Diabetic infection of right foot Cellulitis Mild aortic stenosis Foot ulcer Peripheral vascular disease Bacteremia Leukocytosis AMS (altered mental status) Aortic stenosis Mild per 03/06/19 stress ECHO Secondary hyperparathyroidism (of renal origin) CAD (coronary artery disease) Angioplasty ~1993, CABG x 3 2013 (GALINDO to LAD, SVG to PDA, SVG to OM) Hiatal hernia Hypothyroidism Blindness of left eye Macular degeneration Anxiety Peripheral neuropathy Chronic kidney disease Follows with Dr. Dixon Hyperlipidemia Atrial fibrillation Follows with Dr. Gr Chronic obstructive pulmonary disease Asthma Uses rescue inhaler a couple times per week Hypertension Myocardial infarct ~1993 GERD (gastroesophageal reflux disease) CHF (congestive heart failure) Rupture of left distal biceps tendon hx - no surgery Herpes zoster Headache Diabetes Type 2 IDDM Emvtr-sz-lklvulf kidney injury Surgical History Status post bilateral knee replacements Hx of colonoscopy Previous back surgery (08/26/12) History of revision of total replacement of right knee joint History of total left knee replacement History of total right knee replacement Fusion of spine lumbar History of appendectomy History of tonsillectomy History of tooth extraction History of cataract surgery bilateral History of cardiac cath with angioplasty ~1993 ([facility]) & 2013 ([facility]) History of coronary artery bypass graft x3 vessels ([facility] 2013) with epicardial RFA of pulmonary veins and left atrial appendage ligation S/P cholecystectomy Family History Brother Heart disease Diabetes Sister Cancer Mother Diabetes Father Diabetes Other Hypertension Kidney disease Social History Smoking Status: Never smoker Tobacco Type: Cigarettes Second Hand Exposure: No; Do You Dip or Chew Tobacco: No; Hx Alcohol Use: No Hx Substance Use: No Preferred Language: Setswana Communication Ability: Effective Visual Impairment: Partially Limited Measurement Supervisor Required: No Beliefs That Will Affect Care: None marital status: Current Living Situation: Spouse Current Living Situation Comment: lives at home with current occupational status: retired Feels Safe at Home: Yes Assistive Devices: Bedside Commode, Scooter/Electric Scooter, Walker and Wheelchair Results & Data Vital Signs (Past 12 Hours) Vital Signs Temp Pulse Resp BP Pulse Ox O2 Del Method 04/11/23 09:35 Room Air 04/11/23 07:35 36.7 C 65 16 134/66 97 Room Air PG Care Time/CCT Total # of Minutes Spent Total Time Spent with Patient: Total time spent is greater than 50% in coordination of care (as documented) at patient's floor/unit and/or counseling patient: Coding Level of Care Code None Diagnoses Palliative care by specialist Z51.5
[2023-04-11] MEDS: TAMSULOSIN HCL 0.4 MG CAP PO SCH (20:17)
[2023-04-11] MEDS: GABAPENTIN 300 MG CAP PO SCH (20:17)
[2023-04-11] MEDS: FINASTERIDE 5 MG TAB PO SCH (20:17)
[2023-04-11] MEDS: ROSUVASTATIN CALCIUM 10 MG TAB PO SCH (20:18)
[2023-04-12] MEDS: ACETAMINOPHEN 325 MG TAB PO SCH ×4 (01:08→17:32)
[2023-04-12] MEDS: LEVOTHYROXINE SODIUM 88 MCG TABLET PO SCH (05:25)
[2023-04-12] MEDS: AMPICILLIN 2,000 MG in SODIUM CHLOR 0.9% MINI-B 100 ML IV SCH ×3 (05:35→21:12)
[2023-04-12 06:01] LABS: Basophils # (auto) 0.05 K/uL (0.00-0.20); Basophils % (auto) 0.5 %; Eosinophils # (auto) 0.16 K/uL (0.00-0.50); Eosinophils % (auto) 1.6 %; Hematocrit (blood only) 30.7 % (42.0-52.0); Immature Granulocytes # (auto) 0.07 K/uL (0.01-0.20); Immature Granulocytes % (auto) 0.7 %; Lymphocytes # (auto) 1.77 K/uL (1.20-3.40); Mean Corpuscular Hemoglobin 29.8 pg (25.0-34.0); Mean Corpuscular Hgb Conc 32.6 g/dL (32.0-36.0); Mean Corpuscular Volume 91.4 fL (80.0-100.0); Monocytes # (auto) 0.54 K/uL (0.11-0.59); Monocytes % (auto) 5.5 %; Neutrophils # (auto) 7.27 K/uL (1.40-6.50); Neutrophils % (auto) 73.7 %; Platelet Count 171 K/uL (130-400); RDW Coefficient of Variation 16.3 % (11.5-14.5); Red Blood Count 3.36 M/uL (4.70-6.10); White Blood Count 9.86 K/ul (4.8-10.8)
[2023-04-12 06:46] LABS: Bilirubin,Total 0.2 mg/dl (0.2-1.0); Calcium 7.6 mg/dl (8.6-10.3); Potassium 3.6 mmol/L (3.5-5.1)
[2023-04-12 06:52] LABS: Albumin Globulin Ratio 0.6 (0.9-2); Creatinine Clr Calc Pharmacy 16.1 ml/min; Est GFR (African American) 17.6 ml/min; Est GFR (Non-African American) 15.2 ml/min; Globulin 3.2 gm/dl (2.5-4.0); Total Protein 5.2 gm/dl (6.0-8.3)
--- NOTE | 2023-04-12 07:40 | Hospitalist Progress Note ---
"Date of Service April 12, 2023 Assessment & Plan (1) Hypotension: (2) Elevated troponin I level: (3) Recurrent bacteremia: (4) Anxiety: (5) Anemia of chronic disease: (6) Chronic kidney disease, stage 4 (severe): (7) Acute kidney injury superimposed on CKD: (8) Moderate calcific aortic stenosis: (9) Peripheral vascular disease: (10) Lower extremity edema: (11) Benign prostatic hyperplasia with urinary obstruction: (12) COPD (chronic obstructive pulmonary disease): (13) Hypothyroidism: (14) Hypertension: (15) Dyslipidemia: (16) Paroxysmal atrial fibrillation: (17) Vitamin D deficiency: (18) CAD (coronary artery disease): (19) GERD (gastroesophageal reflux disease): (20) CHF (congestive heart failure): (21) Diabetes: (22) Hypokalemia: Plan 87 yo male with PMHx of CKD Stage 4 (previous admission with JUDI requiring temporary dialysis), DVT, T2DM insulin dependent, HTN, hypothyroidism, AFib, CAD, BPH, GERD, recurrent bacteremia, aortic stenosis, anxiety, and CHF who presents with unwitnessed fall with concomitant bowel/bladder incontinence and associated hypotension. 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 - Palliative care consulted, considering placement now. She is aware of inability of taking care of him Unstageable pressure injury on coccyx -Wound care on case -waffle boots -daily change and as needed JUDI on CKD stage 4 | Suspected ATN | hypokalemia | hypocalcemia -Cr baseline ~ 2, peak this admission 5.92, Cr 3.68 04/08/23 -Elevation in creatinine prerenal, likely secondary to dehydration vs ampicillin use (although BUN/Cr ~ 11) -Continue to hold home Bumex, pt does not want dialysis at this time -LE edema causing continuous discomfort, giving renzo tylenol and oxy 2.5 mg prn for pain -Hypokalemia resolved Chronic HFpEF | Aortic stenosis | Peripheral edema | CAD/PVD/HLD | Afib -Continue to hold home Bumex due to JUDI -cont. metoprolol; Eliquis -cont. statin -cont. ASA, statin DM2 -Lantus + SSI Diabetic neuropathy -cont. gabapentin COPD -cont. home inhalers Anxiety -cont. clonazepam BPH -cont. finasteride, tamsulosin Code: DNR/DNI DVT ppx: Eliquis FEN/GI: Regular diet Dispo - -PT/OT recommending SNF -->Patient decline today [place], and patient preferred being discharged home with HH Admission and Anticipated Discharge Date Admission Date: March 19, 2023 Supervising Physician Co-Signing Physician Notes Resident Physician Supervision Note: I independently interviewed and examined the patient and verified the aguyao history and physical, reviewed labs and image studies and agree with resident findings and care plan. Subjective 87 yo male with PMHx of CKD Stage 4 (previous admission with JUDI requiring temporary dialysis), DVT, [id number] dependent, HTN, hypothyroidism, afib, CAD, BPH, GERD, recurrent bacteremia, aortic stenosis, anxiety, and CHF who presents with unwitnessed fall with concomitant bowel/bladder incontinence and associated hypotension. Today, pt is alert, w/o distress. He states he feels good today. Very agreeable and cooperative with exam. Review of Systems Review of Systems: Per HPI. Physical Exam Constitutional: WD/WN, vitals as above Respiratory: normal respiratory effort, lungs clear to auscultation Cardiovascular: Rate/Rhythm: regular rate and regular rhythm Extremities: + edema Gastrointestinal (Abdomen): normal bowel sounds, soft, nontender, no hepatosplenomegaly Psychiatric: A+Ox3, euthymic affect Results & Data Results & Data Vital Signs (Past 12 Hours) Vital Signs Temp Pulse Resp BP Pulse Ox O2 Del Method 04/12/23 07:00 36.8 C 84 20 138/80 95 Room Air 04/11/23 20:10 36.6 C 77 18 147/76 H 97 Room Air Resident Activity Tracking Resident Involvement: Resident Care Provided Care Provided: Adult Hospital Medicine (12) COPD (chronic obstructive pulmonary disease) COPD type: unspecified COPD Qualified Code(s): J44.9 - Chronic obstructive pulmonary disease, unspecified (13) Hypothyroidism Hypothyroidism type: unspecified Qualified Code(s): E03.9 - Hypothyroidism, unspecified (14) Hypertension Hypertension type: essential hypertension Qualified Code(s): I10 - Essential (primary) hypertension (18) CAD (coronary artery disease) Associated angina: without angina Coronary Disease-Associated Artery/Lesion type: [place] artery [place] vs. transplanted heart: [place] heart Qualified Code(s): I25.10 - Atherosclerotic heart disease of [place] coronary artery without angina pectoris (19) GERD (gastroesophageal reflux disease) Esophagitis presence: esophagitis presence not specified Qualified Code(s): K21.9 - Gastro-esophageal reflux disease without esophagitis (20) CHF (congestive heart failure) Heart failure chronicity: unspecified Heart failure type: unspecified Qualified Code(s): I50.9 - Heart failure, unspecified (21) Diabetes Diabetes mellitus complication status: with hyperglycemia Diabetes mellitus long-term insulin use: with long-term use Diabetes mellitus type: type 2 Qualified Code(s): E11.65 - Type 2 diabetes mellitus with hyperglycemia; Z79.4 - ore fielder (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"
[2023-04-12] MEDS: METOPROLOL TARTRATE 25 MG TAB PO SCH ×2 (08:21→21:11)
[2023-04-12] MEDS: ASPIRIN 81 MG ECTAB PO SCH (08:21)
[2023-04-12] MEDS: PANTOprazole 40 MG TAB PO SCH ×2 (08:21→21:12)
[2023-04-12] MEDS: APIXABAN 2.5 MG TAB PO SCH ×2 (08:21→21:11)
[2023-04-12] MEDS: GABAPENTIN 100 MG CAP PO SCH (08:21)
[2023-04-12] MEDS: FLUTICASONE/VILANTEROL 100/25MCG 14 PUFFS/INHALER INH SCH (08:22)
[2023-04-12] MEDS: INSULIN ASPART PER UNIT CHARGE SC SCH ×4 (08:28→21:13)
[2023-04-12] MEDS: clonazePAM 1 MG TAB PO SCH ×2 (08:28→21:11)
[2023-04-12] MEDS: MICONAZOLE NITRATE POWDER 85 GM EXT SCH ×2 (08:30→21:12)
[2023-04-12] MEDS: UMECLIDINIUM BROMIDE 62.5MCG/BLISTER 7 PUFFS/INHALER INH SCH (09:43)
[2023-04-12] MEDS: BUMETANIDE 1 MG TAB PO SCH (15:10)
[2023-04-12] MEDS: GABAPENTIN 300 MG CAP PO SCH (21:11)
[2023-04-12] MEDS: FINASTERIDE 5 MG TAB PO SCH (21:11)
[2023-04-12] MEDS: TAMSULOSIN HCL 0.4 MG CAP PO SCH (21:12)
[2023-04-12] MEDS: ROSUVASTATIN CALCIUM 10 MG TAB PO SCH (21:12)
[2023-04-13] MEDS: ACETAMINOPHEN 325 MG TAB PO SCH ×4 (01:17→17:29)
[2023-04-13] MEDS: AMPICILLIN 2,000 MG in SODIUM CHLOR 0.9% MINI-B 100 ML IV SCH ×3 (05:25→21:23)
[2023-04-13] MEDS: LEVOTHYROXINE SODIUM 88 MCG TABLET PO SCH (05:30)
--- NOTE | 2023-04-13 06:43 | Hospitalist Progress Note ---
"Date of Service April 13, 2023 Assessment & Plan (1) Hypotension: (2) Elevated troponin I level: (3) Recurrent bacteremia: (4) Anxiety: (5) Anemia of chronic disease: (6) Chronic kidney disease, stage 4 (severe): (7) Acute kidney injury superimposed on CKD: (8) Moderate calcific aortic stenosis: (9) Peripheral vascular disease: (10) Lower extremity edema: (11) Benign prostatic hyperplasia with urinary obstruction: (12) COPD (chronic obstructive pulmonary disease): (13) Hypothyroidism: (14) Hypertension: (15) Dyslipidemia: (16) Paroxysmal atrial fibrillation: (17) Vitamin D deficiency: (18) CAD (coronary artery disease): (19) GERD (gastroesophageal reflux disease): (20) CHF (congestive heart failure): (21) Diabetes: (22) Hypokalemia: Plan 87 yo male with PMHx of CKD Stage 4 (previous admission with JUDI requiring temporary dialysis), DVT, T2DM insulin dependent, HTN, hypothyroidism, AFib, CAD, BPH, GERD, recurrent bacteremia, aortic stenosis, anxiety, and CHF who presents with unwitnessed fall with concomitant bowel/bladder incontinence and associated hypotension. 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 - Palliative care consulted, considering placement now. She is aware of inability of taking care of him -Pending placement for rehab Case management following Unstageable pressure injury on coccyx -Wound care on case -waffle boots -daily change and as needed JUDI on CKD stage 4 | Suspected ATN | hypokalemia | hypocalcemia -Cr baseline ~ 2, peak this admission 5.92, Cr 3.68 04/08/23 -Elevation in creatinine prerenal, likely secondary to dehydration vs ampicillin use (although BUN/Cr ~ 11) -Continue to hold home Bumex, pt does not want dialysis at this time -LE edema causing continuous discomfort, giving renzo tylenol and oxy 2.5 mg prn for pain -Hypokalemia K:3.2, replaced today 40 mEq BMP AM Chronic HFpEF | Aortic stenosis | Peripheral edema | CAD/PVD/HLD | Afib -Continue to hold home Bumex due to JUDI -cont. metoprolol; Eliquis -cont. statin -cont. ASA, statin DM2 -Lantus + SSI Diabetic neuropathy -cont. gabapentin COPD -cont. home inhalers Anxiety -cont. clonazepam BPH -cont. finasteride, tamsulosin Code: DNR/DNI DVT ppx: Eliquis FEN/GI: Regular diet Dispo - -PT/OT recommending SNF -->awaiting rehab placement Admission and Anticipated Discharge Date Admission Date: March 19, 2023 Supervising Physician Co-Signing Physician Notes Resident Physician Supervision Note: I independently interviewed and examined the patient and verified the aguayo history and physical, reviewed labs and image studies and agree with resident findings and care plan. Subjective 87 yo male with PMHx of CKD Stage 4 (previous admission with JUDI requiring temporary dialysis), DVT, [id number] dependent, HTN, hypothyroidism, afib, CAD, BPH, GERD, recurrent bacteremia, aortic stenosis, anxiety, and CHF who presents with unwitnessed fall with concomitant bowel/bladder incontinence and associated hypotension. Today, pt is alert, w/o distress. He states he feels good today. Very agreeable and cooperative with exam. Review of Systems Review of Systems: Per HPI. Physical Exam Constitutional: WD/WN, vitals as above Respiratory: normal respiratory effort, lungs clear to auscultation Cardiovascular: Rate/Rhythm: regular rate and regular rhythm Extremities: + edema Gastrointestinal (Abdomen): normal bowel sounds, soft, nontender, no hepatosplenomegaly Psychiatric: A+Ox3, euthymic affect Results & Data Results & Data Vital Signs (Past 12 Hours) Vital Signs Temp Pulse Resp BP Pulse Ox O2 Del Method 04/12/23 21:00 Room Air 04/12/23 20:08 36.6 C 78 18 140/71 94 Room Air Resident Activity Tracking Resident Involvement: Resident Care Provided Care Provided: Adult Hospital Medicine (12) COPD (chronic obstructive pulmonary disease) COPD type: unspecified COPD Qualified Code(s): J44.9 - Chronic obstructive pulmonary disease, unspecified (13) Hypothyroidism Hypothyroidism type: unspecified Qualified Code(s): E03.9 - Hypothyroidism, unspecified (14) Hypertension Hypertension type: essential hypertension Qualified Code(s): I10 - Essential (primary) hypertension (18) CAD (coronary artery disease) Associated angina: without angina Coronary Disease-Associated Artery/Lesion type: [place] artery [place] vs. transplanted heart: [place] heart Qualified Code(s): I25.10 - Atherosclerotic heart disease of [place] coronary artery without angina pectoris (19) GERD (gastroesophageal reflux disease) Esophagitis presence: esophagitis presence not specified Qualified Code(s): K21.9 - Gastro-esophageal reflux disease without esophagitis (20) CHF (congestive heart failure) Heart failure chronicity: unspecified Heart failure type: unspecified Qualified Code(s): I50.9 - Heart failure, unspecified (21) Diabetes Diabetes mellitus complication status: with hyperglycemia Diabetes mellitus group home insulin use: with group home use Diabetes mellitus type: type 2 Qualified Code(s): E11.65 - Type 2 diabetes mellitus with hyperglycemia; Z79.4 - custodial (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"
[2023-04-13 08:18] LABS: Basophils # (auto) 0.03 K/uL (0.00-0.20); Basophils % (auto) 0.4 %; Eosinophils # (auto) 0.21 K/uL (0.00-0.50); Eosinophils % (auto) 2.6 %; Hemoglobin 8.7 g/dl (14.0-18.0); Immature Granulocytes # (auto) 0.07 K/uL (0.01-0.20); Immature Granulocytes % (auto) 0.9 %; Lymphocytes # (auto) 1.45 K/uL (1.20-3.40); Lymphocytes % (auto) 18.3 %; Mean Corpuscular Hemoglobin 29.4 pg (25.0-34.0); Mean Corpuscular Hgb Conc 32.2 g/dL (32.0-36.0); Mean Corpuscular Volume 91.2 fL (80.0-100.0); Mean Platelet Volume 9.5 fL (9.4-12.4); Monocytes # (auto) 0.52 K/uL (0.11-0.59); Monocytes % (auto) 6.6 %; Neutrophils # (auto) 5.65 K/uL (1.40-6.50); Neutrophils % (auto) 71.2 %; Platelet Count 138 K/uL (130-400); RDW Coefficient of Variation 15.9 % (11.5-14.5); RDW Standard Deviation 52.8 fL (36.4-46.3); Red Blood Count 2.96 M/uL (4.70-6.10); White Blood Count 7.93 K/ul (4.8-10.8)
[2023-04-13] MEDS: GABAPENTIN 100 MG CAP PO SCH (08:34)
[2023-04-13] MEDS: APIXABAN 2.5 MG TAB PO SCH ×2 (08:34→21:17)
[2023-04-13] MEDS: ASPIRIN 81 MG ECTAB PO SCH (08:34)
[2023-04-13] MEDS: METOPROLOL TARTRATE 25 MG TAB PO SCH ×2 (08:35→21:17)
[2023-04-13] MEDS: PANTOprazole 40 MG TAB PO SCH ×2 (08:35→21:18)
[2023-04-13] MEDS: UMECLIDINIUM BROMIDE 62.5MCG/BLISTER 7 PUFFS/INHALER INH SCH (08:35)
[2023-04-13] MEDS: FLUTICASONE/VILANTEROL 100/25MCG 14 PUFFS/INHALER INH SCH (08:36)
[2023-04-13 08:37] LABS: Albumin Globulin Ratio 0.6 (0.9-2); Albumin Level 1.8 gm/dl (3.4-5.0); Bilirubin,Total 0.2 mg/dl (0.2-1.0); Calcium 7.5 mg/dl (8.6-10.3); Creatinine Clr Calc Pharmacy 15.7 ml/min; Est GFR (African American) 17.1 ml/min; Est GFR (Non-African American) 14.8 ml/min; Globulin 2.9 gm/dl (2.5-4.0); Potassium 3.2 mmol/L (3.5-5.1); Total Protein 4.7 gm/dl (6.0-8.3)
[2023-04-13] MEDS: MICONAZOLE NITRATE POWDER 85 GM EXT SCH ×2 (08:38→21:19)
[2023-04-13] MEDS: INSULIN ASPART PER UNIT CHARGE SC SCH ×4 (08:46→21:04)
[2023-04-13] MEDS: clonazePAM 1 MG TAB PO SCH ×2 (08:59→21:23)
[2023-04-13] MEDS: oxyCODONE HCL IR 5 MG TAB (IMMEDIATE RELEASE) PO PRN (09:44)
[2023-04-13] MEDS ORDERED: POTASSIUM CHLORIDE CRTAB 20 MEQ TABCR PO STA (10:10)
--- NOTE | 2023-04-13 11:45 | Palliative Family Discussion ---
Date of Service April 13, 2023 Patient Directed Conference Time of [id number] am I spoke with Mrs. Monroy. Unfortunately, she was grossly misinformed about palliative care and hospice by other providers and she says the hospice nurse who came to see him told her she did not feel pt is hospice ready and all they would do is stop all his meds ad keep him peaceful till he dies. Unsure that was the accurate conversation but it is nevertheless her perception of things. She reports being told he could have home based palliative care etc. I clarified all of it. She wants to let him have a trial of rehab which is what he wants. i suggested we allow him the 2 week trial of rehab, if it does not help or he worsens, they will go home from snf rehab with hospice or if he is very bad maybe stay at snf and get hospice there. if he does ok/feels stronger then i suggested she bring him home with addition of visiting nurse services to help with ongoing med mgt and PT needs at home - if he worsens on VNS then they can escalate him to home hospice. Topics of Discussion TS total = 65min 10 min updating teams 10 min chart review 45in in [facility]
[2023-04-13] MEDS: GABAPENTIN 300 MG CAP PO SCH (21:18)
[2023-04-13] MEDS: TAMSULOSIN HCL 0.4 MG CAP PO SCH (21:18)
[2023-04-13] MEDS: ROSUVASTATIN CALCIUM 10 MG TAB PO SCH (21:18)
[2023-04-13] MEDS: FINASTERIDE 5 MG TAB PO SCH (21:19)
[2023-04-14] MEDS: ACETAMINOPHEN 325 MG TAB PO SCH ×4 (01:06→17:49)
[2023-04-14] MEDS: AMPICILLIN 2,000 MG in SODIUM CHLOR 0.9% MINI-B 100 ML IV SCH ×3 (06:09→21:01)
[2023-04-14] MEDS: LEVOTHYROXINE SODIUM 88 MCG TABLET PO SCH (06:10)
--- NOTE | 2023-04-14 07:03 | Hospitalist Progress Note ---
"Date of Service April 14, 2023 Assessment & Plan (1) Hypotension: (2) Elevated troponin I level: (3) Recurrent bacteremia: (4) Anxiety: (5) Anemia of chronic disease: (6) Chronic kidney disease, stage 4 (severe): (7) Acute kidney injury superimposed on CKD: (8) Moderate calcific aortic stenosis: (9) Peripheral vascular disease: (10) Lower extremity edema: (11) Benign prostatic hyperplasia with urinary obstruction: (12) COPD (chronic obstructive pulmonary disease): (13) Hypothyroidism: (14) Hypertension: (15) Dyslipidemia: (16) Paroxysmal atrial fibrillation: (17) Vitamin D deficiency: (18) CAD (coronary artery disease): (19) GERD (gastroesophageal reflux disease): (20) CHF (congestive heart failure): (21) Diabetes: (22) Hypokalemia: Plan 87 yo male with PMHx of CKD Stage 4 (previous admission with JUDI requiring temporary dialysis), DVT, T2DM insulin dependent, HTN, hypothyroidism, AFib, CAD, BPH, GERD, recurrent bacteremia, aortic stenosis, anxiety, and CHF who presents with unwitnessed fall with concomitant bowel/bladder incontinence and associated hypotension. 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 - Palliative care consulted, considering placement now. She is aware of inability of taking care of him -Pending placement for rehab Case management following Unstageable pressure injury on coccyx -Wound care on case -waffle boots -daily change and as needed JUDI on CKD stage 4 | Suspected ATN | hypokalemia | hypocalcemia -Cr baseline ~ 2, peak this admission 5.92, Cr 3.68 04/08/23 -Elevation in creatinine prerenal, likely secondary to dehydration vs ampicillin use (although BUN/Cr ~ 11) -Continue to hold home Bumex, pt does not want dialysis at this time -LE edema causing continuous discomfort, giving renzo Tylenol and oxy 2.5 mg prn for pain -Hypokalemia resolved BMP AM Chronic HFpEF | Aortic stenosis | Peripheral edema | CAD/PVD/HLD | Afib -Continue to hold home Bumex due to JUDI -cont. metoprolol; Eliquis -cont. statin -cont. ASA, statin DM2 -Lantus + SSI Diabetic neuropathy -cont. gabapentin COPD -cont. home inhalers Anxiety -cont. clonazepam BPH -cont. finasteride, tamsulosin Code: DNR/DNI DVT ppx: Eliquis FEN/GI: Regular diet Dispo - -PT/OT recommending SNF -->Got a bed [facility] pending authorization, Monday Admission and Anticipated Discharge Date Admission Date: March 19, 2023 Supervising Physician Co-Signing Physician Notes Resident Physician Supervision Note: I independently interviewed and examined the patient and verified the aguayo history and physical, reviewed labs and image studies and agree with resident findings and care plan. Subjective 87 yo male with PMHx of CKD Stage 4 (previous admission with JUDI requiring temporary dialysis), DVT, [id number] dependent, HTN, hypothyroidism, afib, CAD, BPH, GERD, recurrent bacteremia, aortic stenosis, anxiety, and CHF who presents with unwitnessed fall with concomitant bowel/bladder incontinence and associated hypotension. Today, pt is alert, w/o distress. He states he feels good today. Very agreeable and cooperative with exam. on the room this morning, refers that patient have an Aquacel silver dressing allergy. Review of Systems Review of Systems: Per HPI. Physical Exam Constitutional: WD/WN, vitals as above Respiratory: normal respiratory effort, lungs clear to auscultation Cardiovascular: Rate/Rhythm: regular rate and regular rhythm Extremities: + edema Gastrointestinal (Abdomen): normal bowel sounds, soft, nontender, no hepatosplenomegaly Psychiatric: A+Ox3, euthymic affect Results & Data Results & Data Vital Signs (Past 12 Hours) Vital Signs Temp Pulse Resp BP Pulse Ox O2 Del Method 04/13/23 20:45 36.5 C 73 18 101/63 99 Room Air 04/13/23 20:00 Room Air Resident Activity Tracking Resident Involvement: Resident Care Provided Care Provided: Adult Hospital Medicine (12) COPD (chronic obstructive pulmonary disease) COPD type: unspecified COPD Qualified Code(s): J44.9 - Chronic obstructive pulmonary disease, unspecified (13) Hypothyroidism Hypothyroidism type: unspecified Qualified Code(s): E03.9 - Hypothyroidism, unspecified (14) Hypertension Hypertension type: essential hypertension Qualified Code(s): I10 - Essential (primary) hypertension (18) CAD (coronary artery disease) Associated angina: without angina Coronary Disease-Associated Artery/Lesion type: [place] artery [place] vs. transplanted heart: [place] heart Qualified Code(s): I25.10 - Atherosclerotic heart disease of [place] coronary artery without angina pectoris (19) GERD (gastroesophageal reflux disease) Esophagitis presence: esophagitis presence not specified Qualified Code(s): K21.9 - Gastro-esophageal reflux disease without esophagitis (20) CHF (congestive heart failure) Heart failure chronicity: unspecified Heart failure type: unspecified Qualified Code(s): I50.9 - Heart failure, unspecified (21) Diabetes Diabetes mellitus complication status: with hyperglycemia Diabetes mellitus terminal clerk insulin use: with terminal clerk use Diabetes mellitus type: type 2 Qualified Code(s): E11.65 - Type 2 diabetes mellitus with hyperglycemia; Z79.4 - termite treater (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"
[2023-04-14 07:58] LABS: Basophils # (auto) 0.05 K/uL (0.00-0.20); Basophils % (auto) 0.6 %; Eosinophils # (auto) 0.22 K/uL (0.00-0.50); Eosinophils % (auto) 2.8 %; Hematocrit (blood only) 30.3 % (42.0-52.0); Hemoglobin 9.6 g/dl (14.0-18.0); Immature Granulocytes # (auto) 0.08 K/uL (0.01-0.20); Lymphocytes # (auto) 1.51 K/uL (1.20-3.40); Lymphocytes % (auto) 19.4 %; Mean Corpuscular Hemoglobin 29.3 pg (25.0-34.0); Mean Corpuscular Hgb Conc 31.7 g/dL (32.0-36.0); Mean Corpuscular Volume 92.4 fL (80.0-100.0); Mean Platelet Volume 9.3 fL (9.4-12.4); Monocytes # (auto) 0.45 K/uL (0.11-0.59); Monocytes % (auto) 5.8 %; Neutrophils # (auto) 5.48 K/uL (1.40-6.50); Neutrophils % (auto) 70.4 %; Platelet Count 158 K/uL (130-400); RDW Coefficient of Variation 16.3 % (11.5-14.5); RDW Standard Deviation 55.7 fL (36.4-46.3); Red Blood Count 3.28 M/uL (4.70-6.10); White Blood Count 7.79 K/ul (4.8-10.8)
[2023-04-14 08:15] LABS: Albumin Globulin Ratio 0.6 (0.9-2); Albumin Level 1.9 gm/dl (3.4-5.0); BUN Creatinine Ratio 12.2 (10-20); Bilirubin,Total 0.2 mg/dl (0.2-1.0); Calcium 7.7 mg/dl (8.6-10.3); Creatinine Clr Calc Pharmacy 16.4 ml/min; Est GFR (Non-African American) 15.6 ml/min; Globulin 3.2 gm/dl (2.5-4.0); Magnesium 1.8 mg/dl (1.7-2.4); Phosphorus 4.9 mg/dl (2.5-4.9); Potassium 3.6 mmol/L (3.5-5.1); Total Protein 5.1 gm/dl (6.0-8.3)
[2023-04-14] MEDS: ASPIRIN 81 MG ECTAB PO SCH (08:28)
[2023-04-14] MEDS: GABAPENTIN 100 MG CAP PO SCH (08:29)
[2023-04-14] MEDS: METOPROLOL TARTRATE 25 MG TAB PO SCH ×2 (08:29→20:45)
[2023-04-14] MEDS: APIXABAN 2.5 MG TAB PO SCH ×2 (08:29→20:45)
[2023-04-14] MEDS: PANTOprazole 40 MG TAB PO SCH ×2 (08:29→20:44)
[2023-04-14] MEDS: UMECLIDINIUM BROMIDE 62.5MCG/BLISTER 7 PUFFS/INHALER INH SCH (08:30)
[2023-04-14] MEDS: FLUTICASONE/VILANTEROL 100/25MCG 14 PUFFS/INHALER INH SCH (08:30)
[2023-04-14] MEDS: MICONAZOLE NITRATE POWDER 85 GM EXT SCH ×2 (08:31→20:51)
[2023-04-14] MEDS: clonazePAM 1 MG TAB PO SCH ×2 (08:34→20:52)
[2023-04-14] MEDS: INSULIN ASPART PER UNIT CHARGE SC SCH ×4 (09:01→20:48)
[2023-04-14] MEDS: BUMETANIDE 1 MG TAB PO SCH (13:31)
[2023-04-14] MEDS: TAMSULOSIN HCL 0.4 MG CAP PO SCH (20:43)
[2023-04-14] MEDS: ROSUVASTATIN CALCIUM 10 MG TAB PO SCH (20:44)
[2023-04-14] MEDS: GABAPENTIN 300 MG CAP PO SCH (20:45)
[2023-04-14] MEDS: FINASTERIDE 5 MG TAB PO SCH (20:45)
[2023-04-15] MEDS: ACETAMINOPHEN 325 MG TAB PO SCH ×5 (00:22→22:09)
[2023-04-15] MEDS: AMPICILLIN 2,000 MG in SODIUM CHLOR 0.9% MINI-B 100 ML IV SCH ×3 (05:12→21:38)
[2023-04-15] MEDS: LEVOTHYROXINE SODIUM 88 MCG TABLET PO SCH (05:12)
--- NOTE | 2023-04-15 07:20 | Hospitalist Progress Note ---
"Date of Service April 15, 2023 Assessment & Plan (1) Hypotension: (2) Elevated troponin I level: (3) Recurrent bacteremia: (4) Anxiety: (5) Anemia of chronic disease: (6) Chronic kidney disease, stage 4 (severe): (7) Acute kidney injury superimposed on CKD: (8) Moderate calcific aortic stenosis: (9) Peripheral vascular disease: (10) Lower extremity edema: (11) Benign prostatic hyperplasia with urinary obstruction: (12) COPD (chronic obstructive pulmonary disease): (13) Hypothyroidism: (14) Hypertension: (15) Dyslipidemia: (16) Paroxysmal atrial fibrillation: (17) Vitamin D deficiency: (18) CAD (coronary artery disease): (19) GERD (gastroesophageal reflux disease): (20) CHF (congestive heart failure): (21) Diabetes: (22) Hypokalemia: Plan 87 yo male with PMHx of CKD Stage 4 (previous admission with JUDI requiring temporary dialysis), DVT, T2DM insulin dependent, HTN, hypothyroidism, AFib, CAD, BPH, GERD, recurrent bacteremia, aortic stenosis, anxiety, and CHF who presents with unwitnessed fall with concomitant bowel/bladder incontinence and associated hypotension. 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 - Palliative care consulted, considering placement now. She is aware of inability of taking care of him -Pending placement for rehab Case management following Unstageable pressure injury on coccyx -Wound care on case -waffle boots -daily change and as needed JUDI on CKD stage 4 | Suspected ATN | hypokalemia | hypocalcemia -Cr baseline ~ 2, peak this admission 5.92, Cr 3.68 04/08/23 -Elevation in creatinine prerenal, likely secondary to dehydration -pt does not want dialysis at this time -Hypokalemia resolved BMP AM Chronic HFpEF | Aortic stenosis | Peripheral edema | CAD/PVD/HLD | Afib -Resumed bumex 1mgs q48hrs. -cont. metoprolol; Eliquis -cont. statin -cont. ASA, statin DM2 -Lantus + SSI Diabetic neuropathy -cont. gabapentin COPD -cont. home inhalers Anxiety -cont. clonazepam BPH -cont. finasteride, tamsulosin Code: DNR/DNI DVT ppx: Eliquis FEN/GI: Regular diet Dispo - -PT/OT recommending SNF -->[facility], Monday Admission and Anticipated Discharge Date Admission Date: March 19, 2023 Supervising Physician Co-Signing Physician Notes Resident Physician Supervision Note: I independently interviewed and examined the patient and verified the aguayo history and physical, reviewed labs and image studies and agree with resident findings and care plan. Subjective 87 yo male with PMHx of CKD Stage 4 (previous admission with JUDI requiring temporary dialysis), DVT, [id number] dependent, HTN, hypothyroidism, afib, CAD, BPH, GERD, recurrent bacteremia, aortic stenosis, anxiety, and CHF who presents with unwitnessed fall with concomitant bowel/bladder incontinence and associated hypotension. Today, pt is alert, w/o distress. He states he feels good today. Very agreeable and cooperative with exam. on the room this morning, refers that patient have an Aquacel silver dressing allergy. POLTS form was explained and given to yesterday. Plan to discussed further today. Review of Systems Review of Systems: Per HPI. Physical Exam Constitutional: WD/WN, vitals as above Respiratory: normal respiratory effort, lungs clear to auscultation Cardiovascular: Rate/Rhythm: regular rate and regular rhythm Extremities: + edema Gastrointestinal (Abdomen): normal bowel sounds, soft, nontender, no hepatosplenomegaly Psychiatric: A+Ox3, euthymic affect Results & Data Results & Data Vital Signs (Past 12 Hours) Vital Signs Temp Pulse Resp BP Pulse Ox O2 Del Method 04/14/23 20:00 Room Air 04/14/23 19:43 36.6 C 75 18 153/66 H 96 Room Air Resident Activity Tracking Resident Involvement: Resident Care Provided Care Provided: Adult Hospital Medicine (12) COPD (chronic obstructive pulmonary disease) COPD type: unspecified COPD Qualified Code(s): J44.9 - Chronic obstructive pulmonary disease, unspecified (13) Hypothyroidism Hypothyroidism type: unspecified Qualified Code(s): E03.9 - Hypothyroidism, unspecified (14) Hypertension Hypertension type: essential hypertension Qualified Code(s): I10 - Essential (primary) hypertension (18) CAD (coronary artery disease) Associated angina: without angina Coronary Disease-Associated Artery/Lesion type: [place] artery [place] vs. transplanted heart: [place] heart Qualified Code(s): I25.10 - Atherosclerotic heart disease of [place] coronary artery without angina pectoris (19) GERD (gastroesophageal reflux disease) Esophagitis presence: esophagitis presence not specified Qualified Code(s): K21.9 - Gastro-esophageal reflux disease without esophagitis (20) CHF (congestive heart failure) Heart failure chronicity: unspecified Heart failure type: unspecified Qualified Code(s): I50.9 - Heart failure, unspecified (21) Diabetes Diabetes mellitus complication status: with hyperglycemia Diabetes mellitus manager long term care insulin use: with [facility] use Diabetes mellitus type: type 2 Qualified Code(s): E11.65 - Type 2 diabetes mellitus with hyperglycemia; Z79.4 - assistant terminal manager (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"
[2023-04-15 07:31] LABS: Albumin Level 1.9 gm/dl (3.4-5.0); Bilirubin,Total 0.2 mg/dl (0.2-1.0); Calcium 7.7 mg/dl (8.6-10.3); Magnesium 1.9 mg/dl (1.7-2.4); Potassium 3.5 mmol/L (3.5-5.1)
[2023-04-15 07:35] LABS: Basophils # (auto) 0.04 K/uL (0.00-0.20); Basophils % (auto) 0.6 %; Eosinophils # (auto) 0.25 K/uL (0.00-0.50); Eosinophils % (auto) 3.7 %; Hematocrit (blood only) 31.8 % (42.0-52.0); Immature Granulocytes # (auto) 0.12 K/uL (0.01-0.20); Immature Granulocytes % (auto) 1.8 %; Lymphocytes # (auto) 1.44 K/uL (1.20-3.40); Lymphocytes % (auto) 21.1 %; Mean Corpuscular Hemoglobin 29.1 pg (25.0-34.0); Mean Corpuscular Hgb Conc 31.4 g/dL (32.0-36.0); Mean Corpuscular Volume 92.4 fL (80.0-100.0); Mean Platelet Volume 9.6 fL (9.4-12.4); Monocytes # (auto) 0.41 K/uL (0.11-0.59); Neutrophils # (auto) 4.58 K/uL (1.40-6.50); Neutrophils % (auto) 66.8 %; Platelet Count 167 K/uL (130-400); RDW Coefficient of Variation 16.6 % (11.5-14.5); RDW Standard Deviation 56.8 fL (36.4-46.3); Red Blood Count 3.44 M/uL (4.70-6.10); White Blood Count 6.84 K/ul (4.8-10.8)
[2023-04-15 07:37] LABS: Albumin Globulin Ratio 0.6 (0.9-2); BUN Creatinine Ratio 11.7 (10-20); Creatinine Clr Calc Pharmacy 15.8 ml/min; Est GFR (African American) 17.2 ml/min; Est GFR (Non-African American) 14.8 ml/min; Globulin 3.3 gm/dl (2.5-4.0); Phosphorus 5.3 mg/dl (2.5-4.9); Total Protein 5.2 gm/dl (6.0-8.3)
[2023-04-15] MEDS: ASPIRIN 81 MG ECTAB PO SCH (08:41)
[2023-04-15] MEDS: APIXABAN 2.5 MG TAB PO SCH ×2 (08:41→21:29)
[2023-04-15] MEDS: PANTOprazole 40 MG TAB PO SCH ×2 (08:42→21:28)
[2023-04-15] MEDS: FLUTICASONE/VILANTEROL 100/25MCG 14 PUFFS/INHALER INH SCH (08:42)
[2023-04-15] MEDS: UMECLIDINIUM BROMIDE 62.5MCG/BLISTER 7 PUFFS/INHALER INH SCH (08:42)
[2023-04-15] MEDS: METOPROLOL TARTRATE 25 MG TAB PO SCH ×2 (08:42→21:28)
[2023-04-15] MEDS: INSULIN ASPART PER UNIT CHARGE SC SCH ×4 (08:43→21:25)
[2023-04-15] MEDS: MICONAZOLE NITRATE POWDER 85 GM EXT SCH ×2 (08:44→21:29)
[2023-04-15] MEDS: clonazePAM 1 MG TAB PO SCH ×2 (08:47→21:27)
[2023-04-15] MEDS ORDERED: FUROSEMIDE 40 MG/4 ML VIAL IV ONE (09:00)
[2023-04-15] MEDS: GABAPENTIN 100 MG CAP PO SCH (12:45)
[2023-04-15] MEDS: FINASTERIDE 5 MG TAB PO SCH (21:27)
[2023-04-15] MEDS: ROSUVASTATIN CALCIUM 10 MG TAB PO SCH (21:28)
[2023-04-15] MEDS: TAMSULOSIN HCL 0.4 MG CAP PO SCH (21:28)
[2023-04-15] MEDS: GABAPENTIN 300 MG CAP PO SCH (21:28)
[2023-04-16] MEDS: AMPICILLIN 2,000 MG in SODIUM CHLOR 0.9% MINI-B 100 ML IV SCH ×2 (05:09→13:06)
[2023-04-16] MEDS: ACETAMINOPHEN 325 MG TAB PO SCH ×3 (05:10→17:57)
[2023-04-16] MEDS: LEVOTHYROXINE SODIUM 88 MCG TABLET PO SCH (05:11)
[2023-04-16 06:36] LABS: Albumin Globulin Ratio 0.6 (0.9-2); Albumin Level 1.8 gm/dl (3.4-5.0); BUN Creatinine Ratio 11.4 (10-20); Bilirubin,Total 0.2 mg/dl (0.2-1.0); Calcium 7.4 mg/dl (8.6-10.3); Creatinine Clr Calc Pharmacy 14.3 ml/min; Est GFR (African American) 15.3 ml/min; Est GFR (Non-African American) 13.2 ml/min; Globulin 2.9 gm/dl (2.5-4.0); Magnesium 1.9 mg/dl (1.7-2.4); Phosphorus 5.5 mg/dl (2.5-4.9); Potassium 3.5 mmol/L (3.5-5.1); Total Protein 4.7 gm/dl (6.0-8.3)
--- NOTE | 2023-04-16 08:19 | Hospitalist Progress Note ---
"Date of Service April 16, 2023 Assessment & Plan (1) Hypotension: (2) Elevated troponin I level: (3) Recurrent bacteremia: (4) Anxiety: (5) Anemia of chronic disease: (6) Chronic kidney disease, stage 4 (severe): (7) Acute kidney injury superimposed on CKD: (8) Moderate calcific aortic stenosis: (9) Peripheral vascular disease: (10) Lower extremity edema: (11) Benign prostatic hyperplasia with urinary obstruction: (12) COPD (chronic obstructive pulmonary disease): (13) Hypothyroidism: (14) Hypertension: (15) Dyslipidemia: (16) Paroxysmal atrial fibrillation: (17) Vitamin D deficiency: (18) CAD (coronary artery disease): (19) GERD (gastroesophageal reflux disease): (20) CHF (congestive heart failure): (21) Diabetes: (22) Hypokalemia: Plan 7 yo male with PMHx of CKD Stage 4 (previous admission with JUDI requiring temporary dialysis), DVT, T2DM insulin dependent, HTN, hypothyroidism, AFib, CAD, BPH, GERD, recurrent bacteremia, aortic stenosis, anxiety, and CHF who presents with unwitnessed fall with concomitant bowel/bladder incontinence and a ssociated hypotension. POLST form was discussed with pt and . Copy on the chart. Recurrent 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, blood cx + for Enterococcus Faecalis with repeat cx on 03/22 and 03/25 negative, -UA negative, TTE negative for vegetations, ID noting foot xray negative for osteo of the 2nd digit; could consider MRI; pt and decline at this time -PICC placed, plan for ampicillin until 05/03 then will do repeat cx 1-2 weeks after finishing ABxs -Will likely benefit from suppressive therapy if he has ongoing aggressive go als. - Palliative care consulted, considering placement now. She is aware of inability of taking care of him -Pending placement for rehab Case management following Unstageable pressure injury on coccyx -Wound care on case -waffle boots -daily change and as needed JUDI on CKD stage 4 | Suspected ATN | hypokalemia | hypocalcemia -Cr baseline ~ 2, peak this admission 5.92, Cr 3.86 04/16 -Elevation in creatinine prerenal, likely secondary to dehydration -pt does not want dialysis at this time -Hypokalemia resolved BMP AM Chronic HFpEF | Aortic stenosis | Peripheral edema | CAD/PVD/HLD | Afib -Resumed bumex 1mgs q48hrs. -cont. metoprolol; Eliquis -cont. statin -cont. ASA, statin DM2 -Lantus + SSI Diabetic neuropathy -cont. gabapentin COPD -cont. home inhalers Anxiety -cont. clonazepam BPH -cont. finasteride, tamsulosin Code: DNR/DNI DVT ppx: Eliquis FEN/GI: Regular diet Dispo - -PT/OT recommending SNF -->[facility], Monday Admission and Anticipated Discharge Date Admission Date: March 19, 2023 Supervising Physician Co-Signing Physician Notes Resident Physician Supervision Note: I independently interviewed and examined the patient and verified the aguayo history and physical, reviewed labs and image studies and agree with resident findings and care plan. curious about any further needs of IV iron infusion. Last iron studies from 03/26 - had received 5 days of 200mgs of venofer each day. h/h stable since then. -will defer to am team for consideration of any further IV iron infusion before discharge. POLST form which was already completed at the [place] office is in the chart. Subjective 87 yo male with PMHx of CKD Stage 4 (previous admission with JUDI requiring temporary dialysis), DVT, [id number] dependent, HTN, hypothyroidism, afib, CAD, BPH, GERD, recurrent bacteremia, aortic stenosis, anxiety, and CHF who presents with unwitnessed fall with concomitant bowel/bladder incontinence and associated hypotension. Today, pt is alert, w/o distress. He states he feels good today. Very agreeable and cooperative with exam. on the room this morning, refers that patient have an Aquacel silver dressing allergy. POLTS form was filled Review of Systems Review of Systems: Per HPI. Physical Exam Constitutional: WD/WN, vitals as above Respiratory: normal respiratory effort, lungs clear to auscultation Cardiovascular: Rate/Rhythm: regular rate and regular rhythm Extremities: + edema Gastrointestinal (Abdomen): normal bowel sounds, soft, nontender, no hepatosplenomegaly Psychiatric: A+Ox3, euthymic affect Results & Data Results & Data Vital Signs (Past 12 Hours) Vital Signs Temp Pulse Resp BP Pulse Ox O2 Del Method 04/16/23 07:42 36.4 C L 80 18 154/70 H 95 Room Air 04/15/23 22:47 Room Air Resident Activity Tracking Resident Involvement: Resident Care Provided Care Provided: Adult Hospital Medicine (12) COPD (chronic obstructive pulmonary disease) COPD type: unspecified COPD Qualified Code(s): J44.9 - Chronic obstructive pulmonary disease, unspecified (13) Hypothyroidism Hypothyroidism type: unspecified Qualified Code(s): E03.9 - Hypothyroidism, unspecified (14) Hypertension Hypertension type: essential hypertension Qualified Code(s): I10 - Essential (primary) hypertension (18) CAD (coronary artery disease) Associated angina: without angina Coronary Disease-Associated Artery/Lesion type: [place] artery [place] vs. transplanted heart: [place] heart Qualified Code(s): I25.10 - Atherosclerotic heart disease of [place] coronary artery without angina pectoris (19) GERD (gastroesophageal reflux disease) Esophagitis presence: esophagitis presence not specified Qualified Code(s): K21.9 - Gastro-esophageal reflux disease without esophagitis (20) CHF (congestive heart failure) Heart failure chronicity: unspecified Heart failure type: unspecified Qualified Code(s): I50.9 - Heart failure, unspecified (21) Diabetes Diabetes mellitus complication status: with hyperglycemia Diabetes mellitus fpc insulin use: with fpc use Diabetes mellitus type: type 2 Qualified Code(s): E11.65 - Type 2 diabetes mellitus with hyperglycemia; Z79.4 - intermediate designer (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"
[2023-04-16] MEDS: ASPIRIN 81 MG ECTAB PO SCH (08:55)
[2023-04-16] MEDS: GABAPENTIN 100 MG CAP PO SCH (08:56)
[2023-04-16] MEDS: APIXABAN 2.5 MG TAB PO SCH ×2 (08:56→20:22)
[2023-04-16] MEDS: METOPROLOL TARTRATE 25 MG TAB PO SCH ×2 (08:56→20:23)
[2023-04-16] MEDS: PANTOprazole 40 MG TAB PO SCH ×2 (08:56→20:24)
[2023-04-16] MEDS: UMECLIDINIUM BROMIDE 62.5MCG/BLISTER 7 PUFFS/INHALER INH SCH (08:57)
[2023-04-16] MEDS: MICONAZOLE NITRATE POWDER 85 GM EXT SCH ×2 (08:57→20:24)
[2023-04-16] MEDS: FLUTICASONE/VILANTEROL 100/25MCG 14 PUFFS/INHALER INH SCH (08:57)
[2023-04-16] MEDS: clonazePAM 1 MG TAB PO SCH ×2 (09:00→20:30)
[2023-04-16] MEDS: INSULIN ASPART PER UNIT CHARGE SC SCH ×4 (09:00→21:02)
[2023-04-16] MEDS: BUMETANIDE 1 MG TAB PO SCH (13:07)
[2023-04-16] MEDS: FINASTERIDE 5 MG TAB PO SCH (20:22)
[2023-04-16] MEDS: GABAPENTIN 300 MG CAP PO SCH (20:23)
[2023-04-16] MEDS: ROSUVASTATIN CALCIUM 10 MG TAB PO SCH (20:24)
[2023-04-16] MEDS: TAMSULOSIN HCL 0.4 MG CAP PO SCH (20:25)
[2023-04-17] MEDS: ACETAMINOPHEN 325 MG TAB PO SCH ×4 (00:55→17:09)
[2023-04-17] MEDS: AMPICILLIN 2,000 MG in SODIUM CHLOR 0.9% MINI-B 100 ML IV SCH ×2 (01:34→13:29)
[2023-04-17] MEDS: LEVOTHYROXINE SODIUM 88 MCG TABLET PO SCH (05:48)
--- NOTE | 2023-04-17 06:51 | Hospitalist Progress Note ---
"Date of Service April 17, 2023 Assessment & Plan (1) Hypotension: (2) Elevated troponin I level: (3) Recurrent bacteremia: (4) Anxiety: (5) Anemia of chronic disease: (6) Chronic kidney disease, stage 4 (severe): (7) Acute kidney injury superimposed on CKD: (8) Moderate calcific aortic stenosis: (9) Peripheral vascular disease: (10) Lower extremity edema: (11) Benign prostatic hyperplasia with urinary obstruction: (12) COPD (chronic obstructive pulmonary disease): (13) Hypothyroidism: (14) Hypertension: (15) Dyslipidemia: (16) Paroxysmal atrial fibrillation: (17) Vitamin D deficiency: (18) CAD (coronary artery disease): (19) GERD (gastroesophageal reflux disease): (20) CHF (congestive heart failure): (21) Diabetes: (22) Hypokalemia: Plan 7 yo male with PMHx of CKD Stage 4 (previous admission with [facility] requiring temporary dialysis), DVT, T2DM insulin dependent, HTN, hypothyroidism, AFib, CAD, BPH, GERD, recurrent bacteremia, aortic stenosis, anxiety, and CHF who presents with unwitnessed fall with concomitant bowel/bladder incontinence and a ssociated hypotension. POLST form was discussed with pt and . Copy on the chart. Recurrent 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, blood cx + for Enterococcus Faecalis with repeat cx on 03/22 and 03/25 negative, -UA negative, TTE negative for vegetations, ID noting foot xray negative for osteo of the 2nd digit; could consider MRI; pt and decline at this time -PICC placed, plan for ampicillin until 05/03 then will do repeat cx 1-2 weeks after finishing ABxs -Will likely benefit from suppressive therapy if he has ongoing aggressive go als. - Palliative care consulted, considering placement now. She is aware of inability of taking care of him -Pending placement for rehab Case management following Unstageable pressure injury on coccyx -Wound care on case -waffle boots -daily change and as needed [facility] on CKD stage 4 | Suspected ATN | hypokalemia | hypocalcemia -Cr baseline ~ 2, peak this admission 5.92, Cr 3.68 04/08/23 -Elevation in creatinine prerenal, likely secondary to dehydration -pt does not want dialysis at this time -Hypokalemia resolved BMP AM Chronic HFpEF | Aortic stenosis | Peripheral edema | CAD/PVD/HLD | Afib -Resumed bumex 1mgs q48hrs. -cont. metoprolol; Eliquis -cont. statin -cont. ASA, statin DM2 -Lantus + SSI Diabetic neuropathy -cont. gabapentin COPD -cont. home inhalers Anxiety -cont. clonazepam BPH -cont. finasteride, tamsulosin Code: DNR/DNI DVT ppx: Eliquis FEN/GI: Regular diet Dispo - -PT/OT recommending SNF -->Got a bed [facility] pending authorization, Monday Admission and Anticipated Discharge Date Admission Date: March 19, 2023 Subjective 87 yo male with PMHx of CKD Stage 4 (previous admission with [facility] requiring temporary dialysis), DVT, E1DS-zleucin dependent, HTN, hypothyroidism, afib, CAD, BPH, GERD, recurrent bacteremia, aortic stenosis, anxiety, and CHF who presents with unwitnessed fall with concomitant bowel/bladder incontinence and associated hypotension. Today, pt is alert, w/o distress. He states he feels good today. Very agreeable and cooperative with exam. on the room this morning, refers that patient have an Aquacel silver dressing allergy. POLTS form was filled , in the chart. Review of Systems Review of Systems: Per HPI. Physical Exam Constitutional: WD/WN, vitals as above Respiratory: normal respiratory effort, lungs clear to auscultation Cardiovascular: Rate/Rhythm: regular rate and regular rhythm Extremities: + edema Gastrointestinal (Abdomen): normal bowel sounds, soft, nontender, no hepatosplenomegaly Psychiatric: A+Ox3, euthymic affect Results & Data Results & Data Vital Signs (Past 12 Hours) Vital Signs Temp Pulse Resp BP Pulse Ox O2 Del Method 04/16/23 20:24 Room Air 04/16/23 20:16 36.4 C L 68 14 151/71 H 97 Room Air (12) COPD (chronic obstructive pulmonary disease) COPD type: unspecified COPD Qualified Code(s): J44.9 - Chronic obstructive pulmonary disease, unspecified (13) Hypothyroidism Hypothyroidism type: unspecified Qualified Code(s): E03.9 - Hypothyroidism, unspecified (14) Hypertension Hypertension type: essential hypertension Qualified Code(s): I10 - Essential (primary) hypertension (18) CAD (coronary artery disease) Coronary Disease-Associated Artery/Lesion type: [place] artery [place] vs. transplanted heart: [place] heart Associated angina: without angina Qualified Code(s): I25.10 - Atherosclerotic heart disease of [place] coronary artery without angina pectoris (19) GERD (gastroesophageal reflux disease) Esophagitis presence: esophagitis presence not specified Qualified Code(s): K21.9 - Gastro-esophageal reflux disease without esophagitis (20) CHF (congestive heart failure) Heart failure type: unspecified Heart failure chronicity: unspecified Qualified Code(s): I50.9 - Heart failure, unspecified (21) Diabetes Diabetes mellitus type: type 2 Diabetes mellitus [facility] insulin use: with [facility] use Diabetes mellitus complication status: with hyperglycemia Qualified Code(s): E11.65 - Type 2 diabetes mellitus with hyperglycemia; Z79.4 - residential (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"
[2023-04-17 07:32] LABS: Hematocrit (blood only) 31.3 % (42.0-52.0); Hemoglobin 10.1 g/dl (14.0-18.0); Mean Corpuscular Hemoglobin 29.2 pg (25.0-34.0); Mean Corpuscular Hgb Conc 32.3 g/dL (32.0-36.0); Mean Corpuscular Volume 90.5 fL (80.0-100.0); Mean Platelet Volume 9.5 fL (9.4-12.4); Platelet Count 156 K/uL (130-400); RDW Standard Deviation 52.6 fL (36.4-46.3); Red Blood Count 3.46 M/uL (4.70-6.10); White Blood Count 5.94 K/ul (4.8-10.8)
[2023-04-17 08:07] LABS: Albumin Globulin Ratio 0.6 (0.9-2); Albumin Level 1.9 gm/dl (3.4-5.0); BUN Creatinine Ratio 10.7 (10-20); Bilirubin,Total 0.2 mg/dl (0.2-1.0); Calcium 7.6 mg/dl (8.6-10.3); Creatinine Clr Calc Pharmacy 11.1 ml/min; Est GFR (Non-African American) 11.2 ml/min; Globulin 3.3 gm/dl (2.5-4.0); Potassium 3.6 mmol/L (3.5-5.1); Total Protein 5.2 gm/dl (6.0-8.3)
[2023-04-17] MEDS: ASPIRIN 81 MG ECTAB PO SCH (08:53)
[2023-04-17] MEDS: METOPROLOL TARTRATE 25 MG TAB PO SCH ×2 (08:54→20:40)
[2023-04-17] MEDS: APIXABAN 2.5 MG TAB PO SCH ×2 (08:54→20:40)
[2023-04-17] MEDS: GABAPENTIN 100 MG CAP PO SCH (08:54)
[2023-04-17] MEDS: PANTOprazole 40 MG TAB PO SCH ×2 (08:55→20:41)
[2023-04-17] MEDS: UMECLIDINIUM BROMIDE 62.5MCG/BLISTER 7 PUFFS/INHALER INH SCH (08:55)
[2023-04-17] MEDS: FLUTICASONE/VILANTEROL 100/25MCG 14 PUFFS/INHALER INH SCH (08:55)
[2023-04-17] MEDS: MICONAZOLE NITRATE POWDER 85 GM EXT SCH ×2 (08:56→20:43)
[2023-04-17] MEDS: INSULIN ASPART PER UNIT CHARGE SC SCH ×4 (08:56→20:32)
[2023-04-17] MEDS: clonazePAM 1 MG TAB PO SCH ×2 (08:59→20:39)
--- NOTE | 2023-04-17 12:27 | Discharge Summary ---
"Date of Service April 17, 2023 Admission HPI Per Admitting Provider 87 yo male with PMHx of CKD Stage 4 (previous admission with [facility] requiring temporary dialysis), DVT, DM2 insulin dependent, HTN, hypothyroidism, afib, CAD, BPH, GERD, recurrent bacteremia, aortic stenosis, anxiety, and CHF who presents with fall. at bedside. Patient woke up this morning with chills. had left the house to run errands leaving patient in bed sleeping and upon return a few hours later she found the patient on the bedroom floor with significant bladder and bowel incontinence as well as some emesis. After getting all cleaned up the took his blood pressure and found it to be low, systolically in the 70s which prompted the ED visit. Patient unsure how he had gotten on the floor but did not seem confused per . Patient denies fevers, headache, chest pain, shortness of breath, abdominal pain, nausea, vomiting, fatigue, lower extremity weakness/tingling/numbness, and dysuria. Bowel movements and urination have been normal till this episode. Of note patient did endorse some right and left shoulder pain and was found laying on his left shoulder. Discharge Data Allergies Allergy/AdvReac Type Severity Reaction Status Date / Time Cephalosporins Allergy Unknown Verified 03/19/23 00:43 ciprofloxacin [From Cipro] AdvReac Severe Unknown Verified 03/19/23 00:43 semaglutide [From Ozempic] AdvReac Severe NAUSEA/VOMI Verified 03/19/23 00:43 TING/ANOREX IA amlodipine AdvReac Intermediate SWELLING Verified 03/19/23 00:43 OF ANKLES ropinirole AdvReac Intermediate CHANGE IN Verified 03/19/23 00:43 MENTAL STATUS silver [From SilvaSorb] AdvReac (silver Verified 03/19/23 02:04 dressings) redness of skin Consultations 03/18/23 22:53 ED Decision to Admit Stat 03/20/23 08:39 Consult Infectious Diseases Routine 03/23/23 16:27 Consult Orthopedic Surgery Routine 03/25/23 08:42 Consult Nephrology Routine 03/28/23 10:07 Consult Palliative Care Routine 04/11/23 14:07 Consult Palliative Care Routine Procedures Performed Operation Date: 03/22/23 15:15 Actual Procedures p Echo Transesophageal - Davis Dillard MD s Echo Color Flow - Davis Dillard MD s Echo Doppler Complete - Davis Dillard MD Ordered Studies Microbiology 03/25/23 09:08 Blood Aerobic Blood Culture - Final No growth in Aerobic bottle after 5 days. 03/25/23 09:08 Blood Anaerobic Blood Culture - Final No growth in Anaerobic bottle after 5 days. 03/25/23 09:03 Blood Aerobic Blood Culture - Final No growth in Aerobic bottle after 5 days. 03/25/23 09:03 Blood Anaerobic Blood Culture - Final No growth in Anaerobic bottle after 5 days. 03/20/23 19:32 Blood Aerobic Blood Culture - Final Enterococcus faecalis 03/20/23 19:32 Blood Anaerobic Blood Culture - Final No growth in Anaerobic bottle after 5 days. 03/22/23 09:31 Blood Aerobic Blood Culture - Final No growth in Aerobic bottle after 5 days. 03/22/23 09:31 Blood Anaerobic Blood Culture - Final No growth in Anaerobic bottle after 5 days. 03/22/23 09:36 Blood Aerobic Blood Culture - Final No growth in Aerobic bottle after 5 days. 03/22/23 09:36 Blood Anaerobic Blood Culture - Final No growth in Anaerobic bottle after 5 days. 03/20/23 19:30 Blood Aerobic Blood Culture - Final No growth in Aerobic bottle after 5 days. 03/20/23 19:30 Blood Anaerobic Blood Culture - Final No growth in Anaerobic bottle after 5 days. 03/18/23 20:17 Blood Aerobic Blood Culture - Final Enterococcus faecalis 03/18/23 20:17 Blood Anaerobic Blood Culture - Final Enterococcus faecalis 03/18/23 20:17 Blood Aerobic Blood Culture - Final Enterococcus faecalis 03/18/23 20:17 Blood Anaerobic Blood Culture - Final Enterococcus faecalis Labs 03/18/23 03/18/23 03/18/23 20:17 20:55 22:30 WBC 16.84 H RBC 3.25 L Hgb 10.0 L Hct 29.8 L MCV 91.7 MCH 30.8 MCHC 33.6 RDW Std Deviation 51.2 H RDW Coeff of Adrian 15.2 H Plt Count 150 MPV 9.7 Immature Gran % (Auto) 0.5 Neut % (Auto) 81.7 Lymph % (Auto) 12.3 Cloud % (Auto) 5.2 Eos % (Auto) 0.1 Baso % (Auto) 0.2 Neut # (Auto) 13.77 H Lymph # (Auto) 2.07 Cloud # (Auto) 0.87 H Eos # (Auto) 0.01 Baso # (Auto) 0.03 Immature Gran # (Auto) 0.09 PT 11.7 INR 1.1 APTT 22.2 PTT Ratio 0.8 VBG pH 7.37 VBG pCO2 44 VBG pO2 41 VBG HCO3 25 VBG O2 Saturation 68.0 VBG Base Excess -0.2 Sodium 135 L Potassium 4.8 Chloride 101 Carbon Dioxide 28 Anion Gap 6 BUN 45 H Creatinine 2.90 H Est Cr Clr Drug Dosing 22.1 Est GFR ( Amer) 21.6 Est GFR (Non-Af Amer) 18.6 BUN/Creatinine Ratio 15.5 Glucose 159 H POC Glucose Lactate 2.4 H* Calcium 9.0 Phosphorus Magnesium 1.9 Iron TIBC Unsaturated IBC Transferrin % Sat Ferritin Total Bilirubin 0.6 Direct Bilirubin 0.2 AST 27 ALT 14 Alkaline Phosphatase 104 Troponin I High Sens 72.0 H* Total Protein 6.5 Albumin 3.2 L Globulin Albumin/Globulin Ratio Procalcitonin 28.51 H Urine Color Yellow Urine Appearance Clear Urine pH 7.5 Ur Specific Hartwick 1.013 Urine Protein 3+ H Urine Glucose (UA) Negative Urine Ketones Negative Urine Blood Negative Urine Nitrite Negative Urine Bilirubin Negative Urine Urobilinogen Negative Ur Leukocyte Esterase Negative Urine WBC (Auto) 1-5 Urine RBC (Auto) 0-4 U Hyaline Cast (Auto) 10-30 H U Epithel Cells (Auto) 10-20 H Urine Bacteria (Auto) Negative Ur Renal Epithelial Cell Granular Casts Urine Yeast Urine Sperm Ur Random Creatinine Ur Random Sodium Complement C3 Complement C4 Tot Complement (CH50) Adenovirus (PCR) Not Detected B. pertussis DNA (PCR) Not Detected B.parapertussis DNA PCR Not Detected C. pneumoniae DNA (PCR) Not Detected Coronavirus OC43 (PCR) Not Detected Coronavirus HKU1 (PCR) Not Detected Coronavirus 229E (PCR) Not Detected SARS-CoV-2 (PCR) Not Detected Coronavirus NL63 (PCR) Not Detected Enterococc faecalis PCR DETECTED A Human Metapneumovir PCR Not Detected Influenza Type A (PCR) Not Detected Influenza Type B (PCR) Not Detected M. pneumoniae (PCR) Not Detected Parainfluenza 1 (PCR) Not Detected Parainfluenza 2 (PCR) Not Detected Parainfluenza 3 (PCR) Not Detected Parainfluenza 4 (PCR) Not Detected RSV (PCR) Not Detected Entero/Rhino (PCR) Not Detected Eleno/B-Vanco Res Genes VRE Not Detected Bld Cult ID Panel PCR See PCR Comment 03/18/23 03/19/23 03/19/23 22:44 07:26 11:21 WBC 11.05 H RBC 2.83 L Hgb 8.6 L Hct 25.8 L MCV 91.2 MCH 30.4 MCHC 33.3 RDW Std Deviation 51.4 H RDW Coeff of Adrian 15.4 H Plt Count 132 MPV 9.3 L Immature Gran % (Auto) 0.6 Neut % (Auto) 70.3 Lymph % (Auto) 20.7 Cloud % (Auto) 7.3 Eos % (Auto) 0.8 Baso % (Auto) 0.3 Neut # (Auto) 7.76 H Lymph # (Auto) 2.29 Cloud # (Auto) 0.81 H Eos # (Auto) 0.09 Baso # (Auto) 0.03 Immature Gran # (Auto) 0.07 PT INR APTT PTT Ratio VBG pH VBG pCO2 VBG pO2 VBG HCO3 VBG O2 Saturation VBG Base Excess Sodium 139 Potassium 4.1 Chloride 106 Carbon Dioxide 26 Anion Gap 7 BUN 47 H Creatinine 2.61 H Est Cr Clr Drug Dosing 20.9 Est GFR ( Amer) 24.5 Est GFR (Non-Af Amer) 21.1 BUN/Creatinine Ratio 18.0 Glucose 123 H POC Glucose 123 H 145 H Lactate 1.6 Calcium 8.5 L Phosphorus Magnesium 2.0 Iron TIBC Unsaturated IBC Transferrin % Sat Ferritin Total Bilirubin 0.4 Direct Bilirubin AST 26 ALT 13 Alkaline Phosphatase 80 Troponin I High Sens 63.0 H* Total Protein 5.7 L Albumin 2.8 L Globulin 2.9 Albumin/Globulin Ratio 1.0 Procalcitonin 27.83 H Urine Color Urine Appearance Urine pH Ur Specific [place] Urine Protein Urine Glucose (UA) Urine Ketones Urine Blood Urine Nitrite Urine Bilirubin Urine Urobilinogen Ur Leukocyte Esterase Urine WBC (Auto) Urine RBC (Auto) U Hyaline Cast (Auto) U Epithel Cells (Auto) Urine Bacteria (Auto) Ur Renal Epithelial Cell Granular Casts Urine Yeast Urine Sperm Ur Random Creatinine Ur Random Sodium Complement C3 Complement C4 Tot Complement (CH50) Adenovirus (PCR) B. pertussis DNA (PCR) B.parapertussis DNA PCR C. pneumoniae DNA (PCR) Coronavirus OC43 (PCR) Coronavirus HKU1 (PCR) Coronavirus 229E (PCR) SARS-CoV-2 (PCR) Coronavirus NL63 (PCR) Enterococc faecalis PCR Human Metapneumovir PCR Influenza Type A (PCR) Influenza Type B (PCR) M. pneumoniae (PCR) Parainfluenza 1 (PCR) Parainfluenza 2 (PCR) Parainfluenza 3 (PCR) Parainfluenza 4 (PCR) RSV (PCR) Entero/Rhino (PCR) Eleno/B-Vanco Res Genes Bld Cult ID Panel PCR 03/19/23 03/19/23 03/20/23 16:17 20:23 07:10 WBC 9.65 RBC 3.27 L Hgb 9.9 L Hct 29.3 L MCV 89.6 MCH 30.3 MCHC 33.8 RDW Std Deviation 50.0 H RDW Coeff of Adrian 15.1 H Plt Count 156 MPV 9.3 L Immature Gran % (Auto) 0.7 Neut % (Auto) 68.9 Lymph % (Auto) 21.2 Cloud % (Auto) 7.6 Eos % (Auto) 1.3 Baso % (Auto) 0.3 Neut # (Auto) 6.64 H Lymph # (Auto) 2.05 Cloud # (Auto) 0.73 H Eos # (Auto) 0.13 Baso # (Auto) 0.03 Immature Gran # (Auto) 0.07 PT INR APTT PTT Ratio VBG pH VBG pCO2 VBG pO2 VBG HCO3 VBG O2 Saturation VBG Base Excess Sodium 140 Potassium 3.8 Chloride 107 Carbon Dioxide 26 Anion Gap 7 BUN 35 H Creatinine 2.16 H D Est Cr Clr Drug Dosing 25.7 Est GFR ( Amer) 30.8 Est GFR (Non-Af Amer) 26.6 BUN/Creatinine Ratio 16.2 Glucose 55 L POC Glucose 132 H 100 H Lactate Calcium 8.8 Phosphorus Magnesium 2.0 Iron TIBC Unsaturated IBC Transferrin % Sat Ferritin Total Bilirubin 0.3 Direct Bilirubin AST 24 ALT 13 Alkaline Phosphatase 81 Troponin I High Sens Total Protein 6.3 Albumin 3.1 L Globulin 3.2 Albumin/Globulin Ratio 1.0 Procalcitonin 20.25 H Urine Color Urine Appearance Urine pH Ur Specific [place] Urine Protein Urine Glucose (UA) Urine Ketones Urine Blood Urine Nitrite Urine Bilirubin Urine Urobilinogen Ur Leukocyte Esterase Urine WBC (Auto) Urine RBC (Auto) U Hyaline Cast (Auto) U Epithel Cells (Auto) Urine Bacteria (Auto) Ur Renal Epithelial Cell Granular Casts Urine Yeast Urine Sperm Ur Random Creatinine Ur Random Sodium Complement C3 Complement C4 Tot Complement (CH50) Adenovirus (PCR) B. pertussis DNA (PCR) B.parapertussis DNA PCR C. pneumoniae DNA (PCR) Coronavirus OC43 (PCR) Coronavirus HKU1 (PCR) Coronavirus 229E (PCR) SARS-CoV-2 (PCR) Coronavirus NL63 (PCR) Enterococc faecalis PCR Human Metapneumovir PCR Influenza Type A (PCR) Influenza Type B (PCR) M. pneumoniae (PCR) Parainfluenza 1 (PCR) Parainfluenza 2 (PCR) Parainfluenza 3 (PCR) Parainfluenza 4 (PCR) RSV (PCR) Entero/Rhino (PCR) Eleno/B-Vanco Res Genes Bld Cult ID Panel PCR 03/20/23 03/20/23 03/20/23 07:32 07:33 07:46 WBC RBC Hgb Hct MCV MCH MCHC RDW Std Deviation RDW Coeff of Adrian Plt Count MPV Immature Gran % (Auto) Neut % (Auto) Lymph % (Auto) Cloud % (Auto) Eos % (Auto) Baso % (Auto) Neut # (Auto) Lymph # (Auto) Cloud # (Auto) Eos # (Auto) Baso # (Auto) Immature Gran # (Auto) PT INR APTT PTT Ratio VBG pH VBG pCO2 VBG pO2 VBG HCO3 VBG O2 Saturation VBG Base Excess Sodium Potassium Chloride Carbon Dioxide Anion Gap BUN Creatinine Est Cr Clr Drug Dosing Est GFR ( Amer) Est GFR (Non-Af Amer) BUN/Creatinine Ratio Glucose POC Glucose 64 L* 67 L* 70 Lactate Calcium Phosphorus Magnesium Iron TIBC Unsaturated IBC Transferrin % Sat Ferritin Total Bilirubin Direct Bilirubin AST ALT Alkaline Phosphatase Troponin I High Sens Total Protein Albumin Globulin Albumin/Globulin Ratio Procalcitonin Urine Color Urine Appearance Urine pH Ur Specific [place] Urine Protein Urine Glucose (UA) Urine Ketones Urine Blood Urine Nitrite Urine Bilirubin Urine Urobilinogen Ur Leukocyte Esterase Urine WBC (Auto) Urine RBC (Auto) U Hyaline Cast (Auto) U Epithel Cells (Auto) Urine Bacteria (Auto) Ur Renal Epithelial Cell Granular Casts Urine Yeast Urine Sperm Ur Random Creatinine Ur Random Sodium Complement C3 Complement C4 Tot Complement (CH50) Adenovirus (PCR) B. pertussis DNA (PCR) B.parapertussis DNA PCR C. pneumoniae DNA (PCR) Coronavirus OC43 (PCR) Coronavirus HKU1 (PCR) Coronavirus 229E (PCR) SARS-CoV-2 (PCR) Coronavirus NL63 (PCR) Enterococc faecalis PCR Human Metapneumovir PCR Influenza Type A (PCR) Influenza Type B (PCR) M. pneumoniae (PCR) Parainfluenza 1 (PCR) Parainfluenza 2 (PCR) Parainfluenza 3 (PCR) Parainfluenza 4 (PCR) RSV (PCR) Entero/Rhino (PCR) Eleno/B-Vanco Res Genes Bld Cult ID Panel PCR 03/20/23 03/20/23 03/20/23 11:32 16:23 20:09 WBC RBC Hgb Hct MCV MCH MCHC RDW Std Deviation RDW Coeff of Adrian Plt Count MPV Immature Gran % (Auto) Neut % (Auto) Lymph % (Auto) Cloud % (Auto) Eos % (Auto) Baso % (Auto) Neut # (Auto) Lymph # (Auto) Cloud # (Auto) Eos # (Auto) Baso # (Auto) Immature Gran # (Auto) PT INR APTT PTT Ratio VBG pH VBG pCO2 VBG pO2 VBG HCO3 VBG O2 Saturation VBG Base Excess Sodium Potassium Chloride Carbon Dioxide Anion Gap BUN Creatinine Est Cr Clr Drug Dosing Est GFR ( Amer) Est GFR (Non-Af Amer) BUN/Creatinine Ratio Glucose POC Glucose 140 H 163 H 125 H Lactate Calcium Phosphorus Magnesium Iron TIBC Unsaturated IBC Transferrin % Sat Ferritin Total Bilirubin Direct Bilirubin AST ALT Alkaline Phosphatase Troponin I High Sens Total Protein Albumin Globulin Albumin/Globulin Ratio Procalcitonin Urine Color Urine Appearance Urine pH Ur Specific [place] Urine Protein Urine Glucose (UA) Urine Ketones Urine Blood Urine Nitrite Urine Bilirubin Urine Urobilinogen Ur Leukocyte Esterase Urine WBC (Auto) Urine RBC (Auto) U Hyaline Cast (Auto) U Epithel Cells (Auto) Urine Bacteria (Auto) Ur Renal Epithelial Cell Granular Casts Urine Yeast Urine Sperm Ur Random Creatinine Ur Random Sodium Complement C3 Complement C4 Tot Complement (CH50) Adenovirus (PCR) B. pertussis DNA (PCR) B.parapertussis DNA PCR C. pneumoniae DNA (PCR) Coronavirus OC43 (PCR) Coronavirus HKU1 (PCR) Coronavirus 229E (PCR) SARS-CoV-2 (PCR) Coronavirus NL63 (PCR) Enterococc faecalis PCR Human Metapneumovir PCR Influenza Type A (PCR) Influenza Type B (PCR) M. pneumoniae (PCR) Parainfluenza 1 (PCR) Parainfluenza 2 (PCR) Parainfluenza 3 (PCR) Parainfluenza 4 (PCR) RSV (PCR) Entero/Rhino (PCR) Eleno/B-Vanco Res Genes Bld Cult ID Panel PCR 03/21/23 03/21/23 03/21/23 06:17 08:12 12:10 WBC 9.66 RBC 3.29 L Hgb 10.0 L Hct 29.8 L MCV 90.6 MCH 30.4 MCHC 33.6 RDW Std Deviation 49.0 H RDW Coeff of Adiran 14.8 H Plt Count 146 MPV 9.6 Immature Gran % (Auto) Neut % (Auto) Lymph % (Auto) Cloud % (Auto) Eos % (Auto) Baso % (Auto) Neut # (Auto) Lymph # (Auto) Cloud # (Auto) Eos # (Auto) Baso # (Auto) Immature Gran # (Auto) PT INR APTT PTT Ratio VBG pH VBG pCO2 VBG pO2 VBG HCO3 VBG O2 Saturation VBG Base Excess Sodium 136 Potassium 3.5 Chloride 104 Carbon Dioxide 25 Anion Gap 7 BUN 26 H Creatinine 1.95 H Est Cr Clr Drug Dosing 27.8 Est GFR ( Amer) 34.8 Est GFR (Non-Af Amer) 30.0 BUN/Creatinine Ratio 13.3 Glucose 57 L POC Glucose 68 L* 124 H Lactate Calcium 8.7 Phosphorus Magnesium 2.0 Iron TIBC Unsaturated IBC Transferrin % Sat Ferritin Total Bilirubin Direct Bilirubin AST ALT Alkaline Phosphatase Troponin I High Sens Total Protein Albumin Globulin Albumin/Globulin Ratio Procalcitonin Urine Color Urine Appearance Urine pH Ur Specific [place] Urine Protein Urine Glucose (UA) Urine Ketones Urine Blood Urine Nitrite Urine Bilirubin Urine Urobilinogen Ur Leukocyte Esterase Urine WBC (Auto) Urine RBC (Auto) U Hyaline Cast (Auto) U Epithel Cells (Auto) Urine Bacteria (Auto) Ur Renal Epithelial Cell Granular Casts Urine Yeast Urine Sperm Ur Random Creatinine Ur Random Sodium Complement C3 Complement C4 Tot Complement (CH50) Adenovirus (PCR) B. pertussis DNA (PCR) B.parapertussis DNA PCR C. pneumoniae DNA (PCR) Coronavirus OC43 (PCR) Coronavirus HKU1 (PCR) Coronavirus 229E (PCR) SARS-CoV-2 (PCR) Coronavirus NL63 (PCR) Enterococc faecalis PCR Human Metapneumovir PCR Influenza Type A (PCR) Influenza Type B (PCR) M. pneumoniae (PCR) Parainfluenza 1 (PCR) Parainfluenza 2 (PCR) Parainfluenza 3 (PCR) Parainfluenza 4 (PCR) RSV (PCR) Entero/Rhino (PCR) Eleno/B-Vanco Res Genes Bld Cult ID Panel PCR 03/21/23 03/21/23 03/22/23 16:21 20:27 06:47 WBC 10.24 RBC 3.12 L Hgb 9.3 L Hct 28.0 L MCV 89.7 MCH 29.8 MCHC 33.2 RDW Std Deviation 48.1 H RDW Coeff of Adrian 14.7 H Plt Count 139 MPV 9.6 Immature Gran % (Auto) Neut % (Auto) Lymph % (Auto) Cloud % (Auto) Eos % (Auto) Baso % (Auto) Neut # (Auto) Lymph # (Auto) Cloud # (Auto) Eos # (Auto) Baso # (Auto) Immature Gran # (Auto) PT INR APTT PTT Ratio VBG pH VBG pCO2 VBG pO2 VBG HCO3 VBG O2 Saturation VBG Base Excess Sodium 137 Potassium 3.7 Chloride 105 Carbon Dioxide 22 Anion Gap 10 BUN 30 H Creatinine 2.12 H Est Cr Clr Drug Dosing 25.6 Est GFR ( Amer) 31.5 Est GFR (Non-Af Amer) 27.2 BUN/Creatinine Ratio 14.2 Glucose 197 H POC Glucose 123 H 181 H Lactate Calcium 8.5 L Phosphorus Magnesium Iron TIBC Unsaturated IBC Transferrin % Sat Ferritin Total Bilirubin Direct Bilirubin AST ALT Alkaline Phosphatase Troponin I High Sens Total Protein Albumin Globulin Albumin/Globulin Ratio Procalcitonin Urine Color Urine Appearance Urine pH Ur Specific [place] Urine Protein Urine Glucose (UA) Urine Ketones Urine Blood Urine Nitrite Urine Bilirubin Urine Urobilinogen Ur Leukocyte Esterase Urine WBC (Auto) Urine RBC (Auto) U Hyaline Cast (Auto) U Epithel Cells (Auto) Urine Bacteria (Auto) Ur Renal Epithelial Cell Granular Casts Urine Yeast Urine Sperm Ur Random Creatinine Ur Random Sodium Complement C3 Complement C4 Tot Complement (CH50) Adenovirus (PCR) B. pertussis DNA (PCR) B.parapertussis DNA PCR C. pneumoniae DNA (PCR) Coronavirus OC43 (PCR) Coronavirus HKU1 (PCR) Coronavirus 229E (PCR) SARS-CoV-2 (PCR) Coronavirus NL63 (PCR) Enterococc faecalis PCR Human Metapneumovir PCR Influenza Type A (PCR) Influenza Type B (PCR) M. pneumoniae (PCR) Parainfluenza 1 (PCR) Parainfluenza 2 (PCR) Parainfluenza 3 (PCR) Parainfluenza 4 (PCR) RSV (PCR) Entero/Rhino (PCR) Eleno/B-Vanco Res Genes Bld Cult ID Panel PCR 03/22/23 03/22/23 03/22/23 07:24 11:24 16:29 WBC RBC Hgb Hct MCV MCH MCHC RDW Std Deviation RDW Coeff of Adrian Plt Count MPV Immature Gran % (Auto) Neut % (Auto) Lymph % (Auto) Cloud % (Auto) Eos % (Auto) Baso % (Auto) Neut # (Auto) Lymph # (Auto) Cloud # (Auto) Eos # (Auto) Baso # (Auto) Immature Gran # (Auto) PT INR APTT PTT Ratio VBG pH VBG pCO2 VBG pO2 VBG HCO3 VBG O2 Saturation VBG Base Excess Sodium Potassium Chloride Carbon Dioxide Anion Gap BUN Creatinine Est Cr Clr Drug Dosing Est GFR ( Amer) Est GFR (Non-Af Amer) BUN/Creatinine Ratio Glucose POC Glucose 203 H 161 H 139 H Lactate Calcium Phosphorus Magnesium Iron TIBC Unsaturated IBC Transferrin % Sat Ferritin Total Bilirubin Direct Bilirubin AST ALT Alkaline Phosphatase Troponin I High Sens Total Protein Albumin Globulin Albumin/Globulin Ratio Procalcitonin Urine Color Urine Appearance Urine pH Ur Specific [place] Urine Protein Urine Glucose (UA) Urine Ketones Urine Blood Urine Nitrite Urine Bilirubin Urine Urobilinogen Ur Leukocyte Esterase Urine WBC (Auto) Urine RBC (Auto) U Hyaline Cast (Auto) U Epithel Cells (Auto) Urine Bacteria (Auto) Ur Renal Epithelial Cell Granular Casts Urine Yeast Urine Sperm Ur Random Creatinine Ur Random Sodium Complement C3 Complement C4 Tot Complement (CH50) Adenovirus (PCR) B. pertussis DNA (PCR) B.parapertussis DNA PCR C. pneumoniae DNA (PCR) Coronavirus OC43 (PCR) Coronavirus HKU1 (PCR) Coronavirus 229E (PCR) SARS-CoV-2 (PCR) Coronavirus NL63 (PCR) Enterococc faecalis PCR Human Metapneumovir PCR Influenza Type A (PCR) Influenza Type B (PCR) M. pneumoniae (PCR) Parainfluenza 1 (PCR) Parainfluenza 2 (PCR) Parainfluenza 3 (PCR) Parainfluenza 4 (PCR) RSV (PCR) Entero/Rhino (PCR) Eleno/B-Vanco Res Genes Bld Cult ID Panel PCR 03/22/23 03/23/23 03/23/23 19:59 06:59 07:30 WBC 10.10 RBC 2.93 L Hgb 8.8 L Hct 25.9 L MCV 88.4 MCH 30.0 MCHC 34.0 RDW Std Deviation 47.4 H RDW Coeff of Adrian 14.6 H Plt Count 135 MPV 9.6 Immature Gran % (Auto) Neut % (Auto) Lymph % (Auto) Cloud % (Auto) Eos % (Auto) Baso % (Auto) Neut # (Auto) Lymph # (Auto) Cloud # (Auto) Eos # (Auto) Baso # (Auto) Immature Gran # (Auto) PT INR APTT PTT Ratio VBG pH VBG pCO2 VBG pO2 VBG HCO3 VBG O2 Saturation VBG Base Excess Sodium 137 Potassium 3.7 Chloride 105 Carbon Dioxide 22 Anion Gap 10 BUN 34 H Creatinine 2.22 H Est Cr Clr Drug Dosing 25.0 Est GFR ( Amer) 29.8 Est GFR (Non-Af Amer) 25.7 BUN/Creatinine Ratio 15.3 Glucose 148 H POC Glucose 200 H 163 H Lactate Calcium 8.0 L Phosphorus Magnesium Iron TIBC Unsaturated IBC Transferrin % Sat Ferritin Total Bilirubin Direct Bilirubin AST ALT Alkaline Phosphatase Troponin I High Sens Total Protein Albumin Globulin Albumin/Globulin Ratio Procalcitonin Urine Color Urine Appearance Urine pH Ur Specific [place] Urine Protein Urine Glucose (UA) Urine Ketones Urine Blood Urine Nitrite Urine Bilirubin Urine Urobilinogen Ur Leukocyte Esterase Urine WBC (Auto) Urine RBC (Auto) U Hyaline Cast (Auto) U Epithel Cells (Auto) Urine Bacteria (Auto) Ur Renal Epithelial Cell Granular Casts Urine Yeast Urine Sperm Ur Random Creatinine Ur Random Sodium Complement C3 Complement C4 Tot Complement (CH50) Adenovirus (PCR) B. pertussis DNA (PCR) B.parapertussis DNA PCR C. pneumoniae DNA (PCR) Coronavirus OC43 (PCR) Coronavirus HKU1 (PCR) Coronavirus 229E (PCR) SARS-CoV-2 (PCR) Coronavirus NL63 (PCR) Enterococc faecalis PCR Human Metapneumovir PCR Influenza Type A (PCR) Influenza Type B (PCR) M. pneumoniae (PCR) Parainfluenza 1 (PCR) Parainfluenza 2 (PCR) Parainfluenza 3 (PCR) Parainfluenza 4 (PCR) RSV (PCR) Entero/Rhino (PCR) Eleno/B-Vanco Res Genes Bld Cult ID Panel PCR 03/23/23 03/23/23 03/23/23 11:34 16:31 19:52 WBC RBC Hgb Hct MCV MCH MCHC RDW Std Deviation RDW Coeff of Adrian Plt Count MPV Immature Gran % (Auto) Neut % (Auto) Lymph % (Auto) Cloud % (Auto) Eos % (Auto) Baso % (Auto) Neut # (Auto) Lymph # (Auto) Cloud # (Auto) Eos # (Auto) Baso # (Auto) Immature Gran # (Auto) PT INR APTT PTT Ratio VBG pH VBG pCO2 VBG pO2 VBG HCO3 VBG O2 Saturation VBG Base Excess Sodium Potassium Chloride Carbon Dioxide Anion Gap BUN Creatinine Est Cr Clr Drug Dosing Est GFR ( Amer) Est GFR (Non-Af Amer) BUN/Creatinine Ratio Glucose POC Glucose 173 H 274 H 243 H Lactate Calcium Phosphorus Magnesium Iron TIBC Unsaturated IBC Transferrin % Sat Ferritin Total Bilirubin Direct Bilirubin AST ALT Alkaline Phosphatase Troponin I High Sens Total Protein Albumin Globulin Albumin/Globulin Ratio Procalcitonin Urine Color Urine Appearance Urine pH Ur Specific [place] Urine Protein Urine Glucose (UA) Urine Ketones Urine Blood Urine Nitrite Urine Bilirubin Urine Urobilinogen Ur Leukocyte Esterase Urine WBC (Auto) Urine RBC (Auto) U Hyaline Cast (Auto) U Epithel Cells (Auto) Urine Bacteria (Auto) Ur Renal Epithelial Cell Granular Casts Urine Yeast Urine Sperm Ur Random Creatinine Ur Random Sodium Complement C3 Complement C4 Tot Complement (CH50) Adenovirus (PCR) B. pertussis DNA (PCR) B.parapertussis DNA PCR C. pneumoniae DNA (PCR) Coronavirus OC43 (PCR) Coronavirus HKU1 (PCR) Coronavirus 229E (PCR) SARS-CoV-2 (PCR) Coronavirus NL63 (PCR) Enterococc faecalis PCR Human Metapneumovir PCR Influenza Type A (PCR) Influenza Type B (PCR) M. pneumoniae (PCR) Parainfluenza 1 (PCR) Parainfluenza 2 (PCR) Parainfluenza 3 (PCR) Parainfluenza 4 (PCR) RSV (PCR) Entero/Rhino (PCR) Eleno/B-Vanco Res Genes Bld Cult ID Panel PCR 03/24/23 03/24/23 03/24/23 07:10 07:37 11:06 WBC 8.97 RBC 2.96 L Hgb 8.8 L Hct 26.6 L MCV 89.9 MCH 29.7 MCHC 33.1 RDW Std Deviation 48.4 H RDW Coeff of Adrian 14.6 H Plt Count 174 MPV 9.7 Immature Gran % (Auto) Neut % (Auto) Lymph % (Auto) Cloud % (Auto) Eos % (Auto) Baso % (Auto) Neut # (Auto) Lymph # (Auto) Cloud # (Auto) Eos # (Auto) Baso # (Auto) Immature Gran # (Auto) PT INR APTT PTT Ratio VBG pH VBG pCO2 VBG pO2 VBG HCO3 VBG O2 Saturation VBG Base Excess Sodium 135 L Potassium 3.9 Chloride 104 Carbon Dioxide 23 Anion Gap 8 BUN 39 H Creatinine 2.92 H D Est Cr Clr Drug Dosing 26.0 Est GFR ( Amer) 21.4 Est GFR (Non-Af Amer) 18.4 BUN/Creatinine Ratio 13.4 Glucose 221 H POC Glucose 231 H 309 H* Lactate Calcium 8.2 L Phosphorus Magnesium Iron TIBC Unsaturated IBC Transferrin % Sat Ferritin Total Bilirubin Direct Bilirubin AST ALT Alkaline Phosphatase Troponin I High Sens Total Protein Albumin Globulin Albumin/Globulin Ratio Procalcitonin Urine Color Urine Appearance Urine pH Ur Specific [place] Urine Protein Urine Glucose (UA) Urine Ketones Urine Blood Urine Nitrite Urine Bilirubin Urine Urobilinogen Ur Leukocyte Esterase Urine WBC (Auto) Urine RBC (Auto) U Hyaline Cast (Auto) U Epithel Cells (Auto) Urine Bacteria (Auto) Ur Renal Epithelial Cell Granular Casts Urine Yeast Urine Sperm Ur Random Creatinine Ur Random Sodium Complement C3 Complement C4 Tot Complement (CH50) Adenovirus (PCR) B. pertussis DNA (PCR) B.parapertussis DNA PCR C. pneumoniae DNA (PCR) Coronavirus OC43 (PCR) Coronavirus HKU1 (PCR) Coronavirus 229E (PCR) SARS-CoV-2 (PCR) Coronavirus NL63 (PCR) Enterococc faecalis PCR Human Metapneumovir PCR Influenza Type A (PCR) Influenza Type B (PCR) M. pneumoniae (PCR) Parainfluenza 1 (PCR) Parainfluenza 2 (PCR) Parainfluenza 3 (PCR) Parainfluenza 4 (PCR) RSV (PCR) Entero/Rhino (PCR) Eleno/B-Vanco Res Genes Bld Cult ID Panel PCR 03/24/23 03/24/23 03/24/23 11:07 16:13 20:23 WBC RBC Hgb Hct MCV MCH MCHC RDW Std Deviation RDW Coeff of Adrian Plt Count MPV Immature Gran % (Auto) Neut % (Auto) Lymph % (Auto) Cloud % (Auto) Eos % (Auto) Baso % (Auto) Neut # (Auto) Lymph # (Auto) Cloud # (Auto) Eos # (Auto) Baso # (Auto) Immature Gran # (Auto) PT INR APTT PTT Ratio VBG pH VBG pCO2 VBG pO2 VBG HCO3 VBG O2 Saturation VBG Base Excess Sodium Potassium Chloride Carbon Dioxide Anion Gap BUN Creatinine Est Cr Clr Drug Dosing Est GFR ( Amer) Est GFR (Non-Af Amer) BUN/Creatinine Ratio Glucose POC Glucose 299 H 93 276 H Lactate Calcium Phosphorus Magnesium Iron TIBC Unsaturated IBC Transferrin % Sat Ferritin Total Bilirubin Direct Bilirubin AST ALT Alkaline Phosphatase Troponin I High Sens Total Protein Albumin Globulin Albumin/Globulin Ratio Procalcitonin Urine Color Urine Appearance Urine pH Ur Specific [place] Urine Protein Urine Glucose (UA) Urine Ketones Urine Blood Urine Nitrite Urine Bilirubin Urine Urobilinogen Ur Leukocyte Esterase Urine WBC (Auto) Urine RBC (Auto) U Hyaline Cast (Auto) U Epithel Cells (Auto) Urine Bacteria (Auto) Ur Renal Epithelial Cell Granular Casts Urine Yeast Urine Sperm Ur Random Creatinine Ur Random Sodium Complement C3 Complement C4 Tot Complement (CH50) Adenovirus (PCR) B. pertussis DNA (PCR) B.parapertussis DNA PCR C. pneumoniae DNA (PCR) Coronavirus OC43 (PCR) Coronavirus HKU1 (PCR) Coronavirus 229E (PCR) SARS-CoV-2 (PCR) Coronavirus NL63 (PCR) Enterococc faecalis PCR Human Metapneumovir PCR Influenza Type A (PCR) Influenza Type B (PCR) M. pneumoniae (PCR) Parainfluenza 1 (PCR) Parainfluenza 2 (PCR) Parainfluenza 3 (PCR) Parainfluenza 4 (PCR) RSV (PCR) Entero/Rhino (PCR) Eleno/B-Vanco Res Genes Bld Cult ID Panel PCR 03/25/23 03/25/23 03/25/23 06:42 07:52 12:13 WBC RBC Hgb Hct MCV MCH MCHC RDW Std Deviation RDW Coeff of Adrian Plt Count MPV Immature Gran % (Auto) Neut % (Auto) Lymph % (Auto) Cloud % (Auto) Eos % (Auto) Baso % (Auto) Neut # (Auto) Lymph # (Auto) Cloud # (Auto) Eos # (Auto) Baso # (Auto) Immature Gran # (Auto) PT INR APTT PTT Ratio VBG pH VBG pCO2 VBG pO2 VBG HCO3 VBG O2 Saturation VBG Base Excess Sodium 136 Potassium 3.8 Chloride 104 Carbon Dioxide 22 Anion Gap 10 BUN 48 H Creatinine 3.78 H D Est Cr Clr Drug Dosing 14.7 Est GFR ( Amer) 15.6 Est GFR (Non-Af Amer) 13.5 BUN/Creatinine Ratio 12.7 Glucose 176 H POC Glucose 194 H 284 H Lactate Calcium 8.0 L Phosphorus Magnesium Iron TIBC Unsaturated IBC Transferrin % Sat Ferritin Total Bilirubin Direct Bilirubin AST ALT Alkaline Phosphatase Troponin I High Sens Total Protein Albumin Globulin Albumin/Globulin Ratio Procalcitonin Urine Color Urine Appearance Urine pH Ur Specific [place] Urine Protein Urine Glucose (UA) Urine Ketones Urine Blood Urine Nitrite Urine Bilirubin Urine Urobilinogen Ur Leukocyte Esterase Urine WBC (Auto) Urine RBC (Auto) U Hyaline Cast (Auto) U Epithel Cells (Auto) Urine Bacteria (Auto) Ur Renal Epithelial Cell Granular Casts Urine Yeast Urine Sperm Ur Random Creatinine Ur Random Sodium Complement C3 Complement C4 Tot Complement (CH50) Adenovirus (PCR) B. pertussis DNA (PCR) B.parapertussis DNA PCR C. pneumoniae DNA (PCR) Coronavirus OC43 (PCR) Coronavirus HKU1 (PCR) Coronavirus 229E (PCR) SARS-CoV-2 (PCR) Coronavirus NL63 (PCR) Enterococc faecalis PCR Human Metapneumovir PCR Influenza Type A (PCR) Influenza Type B (PCR) M. pneumoniae (PCR) Parainfluenza 1 (PCR) Parainfluenza 2 (PCR) Parainfluenza 3 (PCR) Parainfluenza 4 (PCR) RSV (PCR) Entero/Rhino (PCR) Eleno/B-Vanco Res Genes Bld Cult ID Panel PCR 03/25/23 03/25/23 03/26/23 17:50 20:21 02:36 WBC RBC Hgb Hct MCV MCH MCHC RDW Std Deviation RDW Coeff of Adrian Plt Count MPV Immature Gran % (Auto) Neut % (Auto) Lymph % (Auto) Cloud % (Auto) Eos % (Auto) Baso % (Auto) Neut # (Auto) Lymph # (Auto) Cloud # (Auto) Eos # (Auto) Baso # (Auto) Immature Gran # (Auto) PT INR APTT PTT Ratio VBG pH VBG pCO2 VBG pO2 VBG HCO3 VBG O2 Saturation VBG Base Excess Sodium Potassium Chloride Carbon Dioxide Anion Gap BUN Creatinine Est Cr Clr Drug Dosing Est GFR ( Amer) Est GFR (Non-Af Amer) BUN/Creatinine Ratio Glucose POC Glucose 164 H 184 H Lactate Calcium Phosphorus Magnesium Iron TIBC Unsaturated IBC Transferrin % Sat Ferritin Total Bilirubin Direct Bilirubin AST ALT Alkaline Phosphatase Troponin I High Sens Total Protein Albumin Globulin Albumin/Globulin Ratio Procalcitonin Urine Color Yellow Urine Appearance Turbid A Urine pH 5.0 Ur Specific [place] 1.022 Urine Protein 4+ H Urine Glucose (UA) Trace H Urine Ketones Negative Urine Blood Negative Urine Nitrite Negative Urine Bilirubin Negative Urine Urobilinogen Negative Ur Leukocyte Esterase Negative Urine WBC (Auto) 10-30 H Urine RBC (Auto) 0-4 U Hyaline Cast (Auto) 1-5 U Epithel Cells (Auto) >30 H Urine Bacteria (Auto) Negative Ur Renal Epithelial Cell Not Reportable Granular Casts 1-5 H Urine Yeast Budding A Urine Sperm Present A Ur Random Creatinine Ur Random Sodium Complement C3 Complement C4 Tot Complement (CH50) Adenovirus (PCR) B. pertussis DNA (PCR) B.parapertussis DNA PCR C. pneumoniae DNA (PCR) Coronavirus OC43 (PCR) Coronavirus HKU1 (PCR) Coronavirus 229E (PCR) SARS-CoV-2 (PCR) Coronavirus NL63 (PCR) Enterococc faecalis PCR Human Metapneumovir PCR Influenza Type A (PCR) Influenza Type B (PCR) M. pneumoniae (PCR) Parainfluenza 1 (PCR) Parainfluenza 2 (PCR) Parainfluenza 3 (PCR) Parainfluenza 4 (PCR) RSV (PCR) Entero/Rhino (PCR) Eleno/B-Vanco Res Genes Bld Cult ID Panel PCR 03/26/23 03/26/23 03/26/23 03:15 08:03 08:13 WBC 7.25 RBC 2.77 L Hgb 8.1 L Hct 24.8 L MCV 89.5 MCH 29.2 MCHC 32.7 RDW Std Deviation 46.6 H RDW Coeff of Adrian 14.4 Plt Count 194 MPV 9.7 Immature Gran % (Auto) Neut % (Auto) Lymph % (Auto) Cloud % (Auto) Eos % (Auto) Baso % (Auto) Neut # (Auto) Lymph # (Auto) Cloud # (Auto) Eos # (Auto) Baso # (Auto) Immature Gran # (Auto) PT INR APTT PTT Ratio VBG pH VBG pCO2 VBG pO2 VBG HCO3 VBG O2 Saturation VBG Base Excess Sodium 135 L Potassium 4.1 Chloride 104 Carbon Dioxide 21 Anion Gap 10 BUN 53 H Creatinine 5.11 H* D Est Cr Clr Drug Dosing 10.9 Est GFR ( Amer) 10.9 Est GFR (Non-Af Amer) 9.4 BUN/Creatinine Ratio 10.4 Glucose 121 H POC Glucose 133 H Lactate Calcium 7.8 L Phosphorus 6.3 H Magnesium 2.1 Iron 17 L TIBC 132 L Unsaturated IBC 115 L Transferrin % Sat 13 L Ferritin 190.8 Total Bilirubin Direct Bilirubin AST ALT Alkaline Phosphatase Troponin I High Sens Total Protein Albumin 2.4 L Globulin Albumin/Globulin Ratio Procalcitonin Urine Color Urine Appearance Urine pH Ur Specific [place] Urine Protein Urine Glucose (UA) Urine Ketones Urine Blood Urine Nitrite Urine Bilirubin Urine Urobilinogen Ur Leukocyte Esterase Urine WBC (Auto) Urine RBC (Auto) U Hyaline Cast (Auto) U Epithel Cells (Auto) Urine Bacteria (Auto) Ur Renal Epithelial Cell Granular Casts Urine Yeast Urine Sperm Ur Random Creatinine 115.0 Ur Random Sodium 24 Complement C3 128 Complement C4 24 Tot Complement (CH50) 58 Adenovirus (PCR) B. pertussis DNA (PCR) B.parapertussis DNA PCR C. pneumoniae DNA (PCR) Coronavirus OC43 (PCR) Coronavirus HKU1 (PCR) Coronavirus 229E (PCR) SARS-CoV-2 (PCR) Coronavirus NL63 (PCR) Enterococc faecalis PCR Human Metapneumovir PCR Influenza Type A (PCR) Influenza Type B (PCR) M. pneumoniae (PCR) Parainfluenza 1 (PCR) Parainfluenza 2 (PCR) Parainfluenza 3 (PCR) Parainfluenza 4 (PCR) RSV (PCR) Entero/Rhino (PCR) El[place]/B-Vanco Res Genes Bld Cult ID Panel PCR 03/26/23 03/26/23 03/26/23 11:34 16:51 21:06 WBC RBC Hgb Hct MCV MCH MCHC RDW Std Deviation RDW Coeff of Adrian Plt Count MPV Immature Gran % (Auto) Neut % (Auto) Lymph % (Auto) Cloud % (Auto) Eos % (Auto) Baso % (Auto) Neut # (Auto) Lymph # (Auto) Cloud # (Auto) Eos # (Auto) Baso # (Auto) Immature Gran # (Auto) PT INR APTT PTT Ratio VBG pH VBG pCO2 VBG pO2 VBG HCO3 VBG O2 Saturation VBG Base Excess Sodium Potassium Chloride Carbon Dioxide Anion Gap BUN Creatinine Est Cr Clr Drug Dosing Est GFR ( Amer) Est GFR (Non-Af Amer) BUN/Creatinine Ratio Glucose POC Glucose 179 H 140 H 179 H Lactate Calcium Phosphorus Magnesium Iron TIBC Unsaturated IBC Transferrin % Sat Ferritin Total Bilirubin Direct Bilirubin AST ALT Alkaline Phosphatase Troponin I High Sens Total Protein Albumin Globulin Albumin/Globulin Ratio Procalcitonin Urine Color Urine Appearance Urine pH Ur Specific [place] Urine Protein Urine Glucose (UA) Urine Ketones Urine Blood Urine Nitrite Urine Bilirubin Urine Urobilinogen Ur Leukocyte Esterase Urine WBC (Auto) Urine RBC (Auto) U Hyaline Cast (Auto) U Epithel Cells (Auto) Urine Bacteria (Auto) Ur Renal Epithelial Cell Granular Casts Urine Yeast Urine Sperm Ur Random Creatinine Ur Random Sodium Complement C3 Complement C4 Tot Complement (CH50) Adenovirus (PCR) B. pertussis DNA (PCR) B.parapertussis DNA PCR C. pneumoniae DNA (PCR) Coronavirus OC43 (PCR) Coronavirus HKU1 (PCR) Coronavirus 229E (PCR) SARS-CoV-2 (PCR) Coronavirus NL63 (PCR) Enterococc faecalis PCR Human Metapneumovir PCR Influenza Type A (PCR) Influenza Type B (PCR) M. pneumoniae (PCR) Parainfluenza 1 (PCR) Parainfluenza 2 (PCR) Parainfluenza 3 (PCR) Parainfluenza 4 (PCR) RSV (PCR) Entero/Rhino (PCR) El[place]/B-Vanco Res Genes Bld Cult ID Panel PCR 03/27/23 03/27/23 03/27/23 07:21 07:22 07:25 WBC 8.60 RBC 2.87 L Hgb 8.5 L Hct 25.2 L MCV 87.8 MCH 29.6 MCHC 33.7 RDW Std Deviation 46.8 H RDW Coeff of Adrian 14.6 H Plt Count 216 MPV 9.6 Immature Gran % (Auto) Neut % (Auto) Lymph % (Auto) Cloud % (Auto) Eos % (Auto) Baso % (Auto) Neut # (Auto) Lymph # (Auto) Cloud # (Auto) Eos # (Auto) Baso # (Auto) Immature Gran # (Auto) PT INR APTT PTT Ratio VBG pH VBG pCO2 VBG pO2 VBG HCO3 VBG O2 Saturation VBG Base Excess Sodium 136 Potassium 4.1 Chloride 104 Carbon Dioxide 23 Anion Gap 9 BUN 56 H Creatinine 5.96 H* D Est Cr Clr Drug Dosing 9.3 Est GFR ( Amer) 9.0 Est GFR (Non-Af Amer) 7.8 BUN/Creatinine Ratio 9.4 L Glucose 120 H POC Glucose 114 H Lactate Calcium 7.9 L Phosphorus 6.6 H Magnesium 2.1 Iron TIBC Unsaturated IBC Transferrin % Sat Ferritin Total Bilirubin Direct Bilirubin AST ALT Alkaline Phosphatase Troponin I High Sens Total Protein Albumin Globulin Albumin/Globulin Ratio Procalcitonin Urine Color Urine Appearance Urine pH Ur Specific [place] Urine Protein Urine Glucose (UA) Urine Ketones Urine Blood Urine Nitrite Urine Bilirubin Urine Urobilinogen Ur Leukocyte Esterase Urine WBC (Auto) Urine RBC (Auto) U Hyaline Cast (Auto) U Epithel Cells (Auto) Urine Bacteria (Auto) Ur Renal Epithelial Cell Granular Casts Urine Yeast Urine Sperm Ur Random Creatinine Ur Random Sodium Complement C3 Complement C4 Tot Complement (CH50) Adenovirus (PCR) B. pertussis DNA (PCR) B.parapertussis DNA PCR C. pneumoniae DNA (PCR) Coronavirus OC43 (PCR) Coronavirus HKU1 (PCR) Coronavirus 229E (PCR) SARS-CoV-2 (PCR) Coronavirus NL63 (PCR) Enterococc faecalis PCR Human Metapneumovir PCR Influenza Type A (PCR) Influenza Type B (PCR) M. pneumoniae (PCR) Parainfluenza 1 (PCR) Parainfluenza 2 (PCR) Parainfluenza 3 (PCR) Parainfluenza 4 (PCR) RSV (PCR) Entero/Rhino (PCR) [place]/B-Vanco Res Genes Bld Cult ID Panel PCR 03/27/23 03/27/23 03/27/23 11:24 16:32 19:35 WBC RBC Hgb Hct MCV MCH MCHC RDW Std Deviation RDW Coeff of Adrian Plt Count MPV Immature Gran % (Auto) Neut % (Auto) Lymph % (Auto) Cloud % (Auto) Eos % (Auto) Baso % (Auto) Neut # (Auto) Lymph # (Auto) Cloud # (Auto) Eos # (Auto) Baso # (Auto) Immature Gran # (Auto) PT INR APTT PTT Ratio VBG pH VBG pCO2 VBG pO2 VBG HCO3 VBG O2 Saturation VBG Base Excess Sodium Potassium Chloride Carbon Dioxide Anion Gap BUN Creatinine Est Cr Clr Drug Dosing Est GFR ( Amer) Est GFR (Non-Af Amer) BUN/Creatinine Ratio Glucose POC Glucose 167 H 157 H 188 H Lactate Calcium Phosphorus Magnesium Iron TIBC Unsaturated IBC Transferrin % Sat Ferritin Total Bilirubin Direct Bilirubin AST ALT Alkaline Phosphatase Troponin I High Sens Total Protein Albumin Globulin Albumin/Globulin Ratio Procalcitonin Urine Color Urine Appearance Urine pH Ur Specific [place] Urine Protein Urine Glucose (UA) Urine Ketones Urine Blood Urine Nitrite Urine Bilirubin Urine Urobilinogen Ur Leukocyte Esterase Urine WBC (Auto) Urine RBC (Auto) U Hyaline Cast (Auto) U Epithel Cells (Auto) Urine Bacteria (Auto) Ur Renal Epithelial Cell Granular Casts Urine Yeast Urine Sperm Ur Random Creatinine Ur Random Sodium Complement C3 Complement C4 Tot Complement (CH50) Adenovirus (PCR) B. pertussis DNA (PCR) B.parapertussis DNA PCR C. pneumoniae DNA (PCR) Coronavirus OC43 (PCR) Coronavirus HKU1 (PCR) Coronavirus 229E (PCR) SARS-CoV-2 (PCR) Coronavirus NL63 (PCR) Enterococc faecalis PCR Human Metapneumovir PCR Influenza Type A (PCR) Influenza Type B (PCR) M. pneumoniae (PCR) Parainfluenza 1 (PCR) Parainfluenza 2 (PCR) Parainfluenza 3 (PCR) Parainfluenza 4 (PCR) RSV (PCR) Entero/Rhino (PCR) El[place]/B-Vanco Res Genes Bld Cult ID Panel PCR 03/28/23 03/28/23 03/28/23 07:30 07:53 11:15 WBC 7.83 RBC 2.85 L Hgb 8.5 L Hct 25.5 L MCV 89.5 MCH 29.8 MCHC 33.3 RDW Std Deviation 48.1 H RDW Coeff of Adrian 14.5 Plt Count 236 MPV 9.4 Immature Gran % (Auto) Neut % (Auto) Lymph % (Auto) Cloud % (Auto) Eos % (Auto) Baso % (Auto) Neut # (Auto) Lymph # (Auto) Cloud # (Auto) Eos # (Auto) Baso # (Auto) Immature Gran # (Auto) PT INR APTT PTT Ratio VBG pH VBG pCO2 VBG pO2 VBG HCO3 VBG O2 Saturation VBG Base Excess Sodium 138 Potassium 3.8 Chloride 105 Carbon Dioxide 23 Anion Gap 10 BUN 54 H Creatinine 5.72 H* Est Cr Clr Drug Dosing 9.7 Est GFR ( Amer) 9.5 Est GFR (Non-Af Amer) 8.2 BUN/Creatinine Ratio 9.4 L Glucose 138 H POC Glucose 160 H 193 H Lactate Calcium 8.1 L Phosphorus 6.2 H Magnesium Iron TIBC Unsaturated IBC Transferrin % Sat Ferritin Total Bilirubin Direct Bilirubin AST ALT Alkaline Phosphatase Troponin I High Sens Total Protein Albumin 2.4 L Globulin Albumin/Globulin Ratio Procalcitonin Urine Color Urine Appearance Urine pH Ur Specific [place] Urine Protein Urine Glucose (UA) Urine Ketones Urine Blood Urine Nitrite Urine Bilirubin Urine Urobilinogen Ur Leukocyte Esterase Urine WBC (Auto) Urine RBC (Auto) U Hyaline Cast (Auto) U Epithel Cells (Auto) Urine Bacteria (Auto) Ur Renal Epithelial Cell Granular Casts Urine Yeast Urine Sperm Ur Random Creatinine Ur Random Sodium Complement C3 Complement C4 Tot Complement (CH50) Adenovirus (PCR) B. pertussis DNA (PCR) B.parapertussis DNA PCR C. pneumoniae DNA (PCR) Coronavirus OC43 (PCR) Coronavirus HKU1 (PCR) Coronavirus 229E (PCR) SARS-CoV-2 (PCR) Coronavirus NL63 (PCR) Enterococc faecalis PCR Human Metapneumovir PCR Influenza Type A (PCR) Influenza Type B (PCR) M. pneumoniae (PCR) Parainfluenza 1 (PCR) Parainfluenza 2 (PCR) Parainfluenza 3 (PCR) Parainfluenza 4 (PCR) RSV (PCR) Entero/Rhino (PCR) El[place]/B-Vanco Res Genes Bld Cult ID Panel PCR 03/28/23 03/28/23 03/29/23 16:37 20:38 07:54 WBC 8.03 RBC 2.94 L Hgb 8.7 L Hct 26.2 L MCV 89.1 MCH 29.6 MCHC 33.2 RDW Std Deviation 47.2 H RDW Coeff of Adrian 14.6 H Plt Count 265 MPV 9.6 Immature Gran % (Auto) Neut % (Auto) Lymph % (Auto) Cloud % (Auto) Eos % (Auto) Baso % (Auto) Neut # (Auto) Lymph # (Auto) Cloud # (Auto) Eos # (Auto) Baso # (Auto) Immature Gran # (Auto) PT INR APTT PTT Ratio VBG pH VBG pCO2 VBG pO2 VBG HCO3 VBG O2 Saturation VBG Base Excess Sodium 141 Potassium 3.5 Chloride 106 Carbon Dioxide 24 Anion Gap 11 BUN 47 H Creatinine 5.32 H* D Est Cr Clr Drug Dosing 10.4 Est GFR ( Amer) 10.4 Est GFR (Non-Af Amer) 8.9 BUN/Creatinine Ratio 8.8 L Glucose 104 H POC Glucose 127 H 128 H Lactate Calcium 8.2 L Phosphorus 5.8 H Magnesium Iron TIBC Unsaturated IBC Transferrin % Sat Ferritin Total Bilirubin Direct Bilirubin AST ALT Alkaline Phosphatase Troponin I High Sens Total Protein Albumin 2.4 L Globulin Albumin/Globulin Ratio Procalcitonin Urine Color Urine Appearance Urine pH Ur Specific [place] Urine Protein Urine Glucose (UA) Urine Ketones Urine Blood Urine Nitrite Urine Bilirubin Urine Urobilinogen Ur Leukocyte Esterase Urine WBC (Auto) Urine RBC (Auto) U Hyaline Cast (Auto) U Epithel Cells (Auto) Urine Bacteria (Auto) Ur Renal Epithelial Cell Granular Casts Urine Yeast Urine Sperm Ur Random Creatinine Ur Random Sodium Complement C3 Complement C4 Tot Complement (CH50) Adenovirus (PCR) B. pertussis DNA (PCR) B.parapertussis DNA PCR C. pneumoniae DNA (PCR) Coronavirus OC43 (PCR) Coronavirus HKU1 (PCR) Coronavirus 229E (PCR) SARS-CoV-2 (PCR) Coronavirus NL63 (PCR) Enterococc faecalis PCR Human Metapneumovir PCR Influenza Type A (PCR) Influenza Type B (PCR) M. pneumoniae (PCR) Parainfluenza 1 (PCR) Parainfluenza 2 (PCR) Parainfluenza 3 (PCR) Parainfluenza 4 (PCR) RSV (PCR) Entero/Rhino (PCR) El[place]/B-Vanco Res Genes Bld Cult ID Panel PCR 03/29/23 03/29/23 03/29/23 08:03 11:53 16:41 WBC RBC Hgb Hct MCV MCH MCHC RDW Std Deviation RDW Coeff of Adrian Plt Count MPV Immature Gran % (Auto) Neut % (Auto) Lymph % (Auto) Cloud % (Auto) Eos % (Auto) Baso % (Auto) Neut # (Auto) Lymph # (Auto) Cloud # (Auto) Eos # (Auto) Baso # (Auto) Immature Gran # (Auto) PT INR APTT PTT Ratio VBG pH VBG pCO2 VBG pO2 VBG HCO3 VBG O2 Saturation VBG Base Excess Sodium Potassium Chloride Carbon Dioxide Anion Gap BUN Creatinine Est Cr Clr Drug Dosing Est GFR ( Amer) Est GFR (Non-Af Amer) BUN/Creatinine Ratio Glucose POC Glucose 104 H 172 H 130 H Lactate Calcium Phosphorus Magnesium Iron TIBC Unsaturated IBC Transferrin % Sat Ferritin Total Bilirubin Direct Bilirubin AST ALT Alkaline Phosphatase Troponin I High Sens Total Protein Albumin Globulin Albumin/Globulin Ratio Procalcitonin Urine Color Urine Appearance Urine pH Ur Specific [place] Urine Protein Urine Glucose (UA) Urine Ketones Urine Blood Urine Nitrite Urine Bilirubin Urine Urobilinogen Ur Leukocyte Esterase Urine WBC (Auto) Urine RBC (Auto) U Hyaline Cast (Auto) U Epithel Cells (Auto) Urine Bacteria (Auto) Ur Renal Epithelial Cell Granular Casts Urine Yeast Urine Sperm Ur Random Creatinine Ur Random Sodium Complement C3 Complement C4 Tot Complement (CH50) Adenovirus (PCR) B. pertussis DNA (PCR) B.parapertussis DNA PCR C. pneumoniae DNA (PCR) Coronavirus OC43 (PCR) Coronavirus HKU1 (PCR) Coronavirus 229E (PCR) SARS-CoV-2 (PCR) Coronavirus NL63 (PCR) Enterococc faecalis PCR Human Metapneumovir PCR Influenza Type A (PCR) Influenza Type B (PCR) M. pneumoniae (PCR) Parainfluenza 1 (PCR) Parainfluenza 2 (PCR) Parainfluenza 3 (PCR) Parainfluenza 4 (PCR) RSV (PCR) Entero/Rhino (PCR) El[place]/B-Vanco Res Genes Bld Cult ID Panel PCR 03/29/23 03/30/23 03/30/23 20:32 06:56 07:58 WBC 7.68 RBC 2.79 L Hgb 8.4 L Hct 25.7 L MCV 92.1 MCH 30.1 MCHC 32.7 RDW Std Deviation 49.6 H RDW Coeff of Adrian 14.6 H Plt Count 268 MPV 9.3 L Immature Gran % (Auto) 0.9 Neut % (Auto) 68.4 Lymph % (Auto) 19.9 Cloud % (Auto) 7.6 Eos % (Auto) 2.7 Baso % (Auto) 0.5 Neut # (Auto) 5.25 Lymph # (Auto) 1.53 Cloud # (Auto) 0.58 Eos # (Auto) 0.21 Baso # (Auto) 0.04 Immature Gran # (Auto) 0.07 PT INR APTT PTT Ratio VBG pH VBG pCO2 VBG pO2 VBG HCO3 VBG O2 Saturation VBG Base Excess Sodium 141 Potassium 3.4 L Chloride 108 H Carbon Dioxide 26 Anion Gap 7 BUN 41 H Creatinine 4.73 H* D Est Cr Clr Drug Dosing 11.7 Est GFR ( Amer) 11.9 Est GFR (Non-Af Amer) 10.3 BUN/Creatinine Ratio 8.7 L Glucose 135 H POC Glucose 163 H 137 H Lactate Calcium 8.0 L Phosphorus Magnesium Iron TIBC Unsaturated IBC Transferrin % Sat Ferritin Total Bilirubin 0.3 Direct Bilirubin AST 11 L ALT 6 L Alkaline Phosphatase 112 H Troponin I High Sens Total Protein 5.7 L Albumin 2.2 L Globulin 3.5 Albumin/Globulin Ratio 0.6 L Procalcitonin Urine Color Urine Appearance Urine pH Ur Specific [place] Urine Protein Urine Glucose (UA) Urine Ketones Urine Blood Urine Nitrite Urine Bilirubin Urine Urobilinogen Ur Leukocyte Esterase Urine WBC (Auto) Urine RBC (Auto) U Hyaline Cast (Auto) U Epithel Cells (Auto) Urine Bacteria (Auto) Ur Renal Epithelial Cell Granular Casts Urine Yeast Urine Sperm Ur Random Creatinine Ur Random Sodium Complement C3 Complement C4 Tot Complement (CH50) Adenovirus (PCR) B. pertussis DNA (PCR) B.parapertussis DNA PCR C. pneumoniae DNA (PCR) Coronavirus OC43 (PCR) Coronavirus HKU1 (PCR) Coronavirus 229E (PCR) SARS-CoV-2 (PCR) Coronavirus NL63 (PCR) Enterococc faecalis PCR Human Metapneumovir PCR Influenza Type A (PCR) Influenza Type B (PCR) M. pneumoniae (PCR) Parainfluenza 1 (PCR) Parainfluenza 2 (PCR) Parainfluenza 3 (PCR) Parainfluenza 4 (PCR) RSV (PCR) Entero/Rhino (PCR) Eleno/B-Vanco Res Genes Bld Cult ID Panel PCR 03/30/23 03/30/23 03/30/23 11:33 16:44 20:45 WBC RBC Hgb Hct MCV MCH MCHC RDW Std Deviation RDW Coeff of Adrian Plt Count MPV Immature Gran % (Auto) Neut % (Auto) Lymph % (Auto) Cloud % (Auto) Eos % (Auto) Baso % (Auto) Neut # (Auto) Lymph # (Auto) Cloud # (Auto) Eos # (Auto) Baso # (Auto) Immature Gran # (Auto) PT INR APTT PTT Ratio VBG pH VBG pCO2 VBG pO2 VBG HCO3 VBG O2 Saturation VBG Base Excess Sodium Potassium Chloride Carbon Dioxide Anion Gap BUN Creatinine Est Cr Clr Drug Dosing Est GFR ( Amer) Est GFR (Non-Af Amer) BUN/Creatinine Ratio Glucose POC Glucose 176 H 125 H 122 H Lactate Calcium Phosphorus Magnesium Iron TIBC Unsaturated IBC Transferrin % Sat Ferritin Total Bilirubin Direct Bilirubin AST ALT Alkaline Phosphatase Troponin I High Sens Total Protein Albumin Globulin Albumin/Globulin Ratio Procalcitonin Urine Color Urine Appearance Urine pH Ur Specific [place] Urine Protein Urine Glucose (UA) Urine Ketones Urine Blood Urine Nitrite Urine Bilirubin Urine Urobilinogen Ur Leukocyte Esterase Urine WBC (Auto) Urine RBC (Auto) U Hyaline Cast (Auto) U Epithel Cells (Auto) Urine Bacteria (Auto) Ur Renal Epithelial Cell Granular Casts Urine Yeast Urine Sperm Ur Random Creatinine Ur Random Sodium Complement C3 Complement C4 Tot Complement (CH50) Adenovirus (PCR) B. pertussis DNA (PCR) B.parapertussis DNA PCR C. pneumoniae DNA (PCR) Coronavirus OC43 (PCR) Coronavirus HKU1 (PCR) Coronavirus 229E (PCR) SARS-CoV-2 (PCR) Coronavirus NL63 (PCR) Enterococc faecalis PCR Human Metapneumovir PCR Influenza Type A (PCR) Influenza Type B (PCR) M. pneumoniae (PCR) Parainfluenza 1 (PCR) Parainfluenza 2 (PCR) Parainfluenza 3 (PCR) Parainfluenza 4 (PCR) RSV (PCR) Entero/Rhino (PCR) Eleno/B-Vanco Res Genes Bld Cult ID Panel PCR 03/31/23 03/31/23 03/31/23 07:13 07:51 11:54 WBC 8.84 RBC 3.03 L Hgb 9.0 L Hct 28.5 L MCV 94.1 MCH 29.7 MCHC 31.6 L RDW Std Deviation 51.7 H RDW Coeff of Adrian 15.2 H Plt Count 279 MPV 9.1 L Immature Gran % (Auto) 0.6 Neut % (Auto) 70.0 Lymph % (Auto) 19.7 Cloud % (Auto) 6.7 Eos % (Auto) 2.4 Baso % (Auto) 0.6 Neut # (Auto) 6.20 Lymph # (Auto) 1.74 Cloud # (Auto) 0.59 Eos # (Auto) 0.21 Baso # (Auto) 0.05 Immature Gran # (Auto) 0.05 PT INR APTT PTT Ratio VBG pH VBG pCO2 VBG pO2 VBG HCO3 VBG O2 Saturation VBG Base Excess Sodium 141 Potassium 3.6 Chloride 109 H Carbon Dioxide 24 Anion Gap 8 BUN 39 H Creatinine 4.47 H Est Cr Clr Drug Dosing 12.4 Est GFR ( Amer) 12.8 Est GFR (Non-Af Amer) 11.0 BUN/Creatinine Ratio 8.7 L Glucose 107 H POC Glucose 102 H 119 H Lactate Calcium 8.1 L Phosphorus Magnesium Iron TIBC Unsaturated IBC Transferrin % Sat Ferritin Total Bilirubin 0.3 Direct Bilirubin AST 12 L ALT 5 L Alkaline Phosphatase 126 H Troponin I High Sens Total Protein 5.8 L Albumin 2.2 L Globulin 3.6 Albumin/Globulin Ratio 0.6 L Procalcitonin Urine Color Urine Appearance Urine pH Ur Specific [place] Urine Protein Urine Glucose (UA) Urine Ketones Urine Blood Urine Nitrite Urine Bilirubin Urine Urobilinogen Ur Leukocyte Esterase Urine WBC (Auto) Urine RBC (Auto) U Hyaline Cast (Auto) U Epithel Cells (Auto) Urine Bacteria (Auto) Ur Renal Epithelial Cell Granular Casts Urine Yeast Urine Sperm Ur Random Creatinine Ur Random Sodium Complement C3 Complement C4 Tot Complement (CH50) Adenovirus (PCR) B. pertussis DNA (PCR) B.parapertussis DNA PCR C. pneumoniae DNA (PCR) Coronavirus OC43 (PCR) Coronavirus HKU1 (PCR) Coronavirus 229E (PCR) SARS-CoV-2 (PCR) Coronavirus NL63 (PCR) Enterococc faecalis PCR Human Metapneumovir PCR Influenza Type A (PCR) Influenza Type B (PCR) M. pneumoniae (PCR) Parainfluenza 1 (PCR) Parainfluenza 2 (PCR) Parainfluenza 3 (PCR) Parainfluenza 4 (PCR) RSV (PCR) Entero/Rhino (PCR) Eleno/B-Vanco Res Genes Bld Cult ID Panel PCR 03/31/23 03/31/23 04/01/23 17:07 20:30 06:39 WBC 9.50 RBC 3.16 L Hgb 9.5 L Hct 29.0 L MCV 91.8 MCH 30.1 MCHC 32.8 RDW Std Deviation 49.9 H RDW Coeff of Adrian 14.9 H Plt Count 279 MPV 9.1 L Immature Gran % (Auto) 2.2 Neut % (Auto) 77.5 Lymph % (Auto) 12.7 Cloud % (Auto) 6.3 Eos % (Auto) 0.9 Baso % (Auto) 0.4 Neut # (Auto) 7.35 H Lymph # (Auto) 1.21 Cloud # (Auto) 0.60 H Eos # (Auto) 0.09 Baso # (Auto) 0.04 Immature Gran # (Auto) 0.21 H PT INR APTT PTT Ratio VBG pH VBG pCO2 VBG pO2 VBG HCO3 VBG O2 Saturation VBG Base Excess Sodium 142 Potassium 3.5 Chloride 110 H Carbon Dioxide 23 Anion Gap 9 BUN 37 H Creatinine 4.14 H D Est Cr Clr Drug Dosing 13.4 Est GFR ( Amer) 14.0 Est GFR (Non-Af Amer) 12.1 BUN/Creatinine Ratio 8.9 L Glucose 92 POC Glucose 89 125 H Lactate Calcium 8.1 L Phosphorus Magnesium Iron TIBC Unsaturated IBC Transferrin % Sat Ferritin Total Bilirubin 0.3 Direct Bilirubin AST 23 ALT 7 Alkaline Phosphatase 120 H Troponin I High Sens Total Protein 5.8 L Albumin 2.2 L Globulin 3.6 Albumin/Globulin Ratio 0.6 L Procalcitonin Urine Color Urine Appearance Urine pH Ur Specific [place] Urine Protein Urine Glucose (UA) Urine Ketones Urine Blood Urine Nitrite Urine Bilirubin Urine Urobilinogen Ur Leukocyte Esterase Urine WBC (Auto) Urine RBC (Auto) U Hyaline Cast (Auto) U Epithel Cells (Auto) Urine Bacteria (Auto) Ur Renal Epithelial Cell Granular Casts Urine Yeast Urine Sperm Ur Random Creatinine Ur Random Sodium Complement C3 Complement C4 Tot Complement (CH50) Adenovirus (PCR) B. pertussis DNA (PCR) B.parapertussis DNA PCR C. pneumoniae DNA (PCR) Coronavirus OC43 (PCR) Coronavirus HKU1 (PCR) Coronavirus 229E (PCR) SARS-CoV-2 (PCR) Coronavirus NL63 (PCR) Enterococc faecalis PCR Human Metapneumovir PCR Influenza Type A (PCR) Influenza Type B (PCR) M. pneumoniae (PCR) Parainfluenza 1 (PCR) Parainfluenza 2 (PCR) Parainfluenza 3 (PCR) Parainfluenza 4 (PCR) RSV (PCR) Entero/Rhino (PCR) Eleno/B-Vanco Res Genes Bld Cult ID Panel PCR 04/01/23 04/01/23 04/01/23 08:15 11:47 16:52 WBC RBC Hgb Hct MCV MCH MCHC RDW Std Deviation RDW Coeff of Adrian Plt Count MPV Immature Gran % (Auto) Neut % (Auto) Lymph % (Auto) Cloud % (Auto) Eos % (Auto) Baso % (Auto) Neut # (Auto) Lymph # (Auto) Cloud # (Auto) Eos # (Auto) Baso # (Auto) Immature Gran # (Auto) PT INR APTT PTT Ratio VBG pH VBG pCO2 VBG pO2 VBG HCO3 VBG O2 Saturation VBG Base Excess Sodium Potassium Chloride Carbon Dioxide Anion Gap BUN Creatinine Est Cr Clr Drug Dosing Est GFR ( Amer) Est GFR (Non-Af Amer) BUN/Creatinine Ratio Glucose POC Glucose 97 100 H 87 Lactate Calcium Phosphorus Magnesium Iron TIBC Unsaturated IBC Transferrin % Sat Ferritin Total Bilirubin Direct Bilirubin AST ALT Alkaline Phosphatase Troponin I High Sens Total Protein Albumin Globulin Albumin/Globulin Ratio Procalcitonin Urine Color Urine Appearance Urine pH Ur Specific [place] Urine Protein Urine Glucose (UA) Urine Ketones Urine Blood Urine Nitrite Urine Bilirubin Urine Urobilinogen Ur Leukocyte Esterase Urine WBC (Auto) Urine RBC (Auto) U Hyaline Cast (Auto) U Epithel Cells (Auto) Urine Bacteria (Auto) Ur Renal Epithelial Cell Granular Casts Urine Yeast Urine Sperm Ur Random Creatinine Ur Random Sodium Complement C3 Complement C4 Tot Complement (CH50) Adenovirus (PCR) B. pertussis DNA (PCR) B.parapertussis DNA PCR C. pneumoniae DNA (PCR) Coronavirus OC43 (PCR) Coronavirus HKU1 (PCR) Coronavirus 229E (PCR) SARS-CoV-2 (PCR) Coronavirus NL63 (PCR) Enterococc faecalis PCR Human Metapneumovir PCR Influenza Type A (PCR) Influenza Type B (PCR) M. pneumoniae (PCR) Parainfluenza 1 (PCR) Parainfluenza 2 (PCR) Parainfluenza 3 (PCR) Parainfluenza 4 (PCR) RSV (PCR) Entero/Rhino (PCR) Eleno/B-Vanco Res Genes Bld Cult ID Panel PCR 04/01/23 04/02/23 04/02/23 20:31 06:25 07:59 WBC 9.08 RBC 3.49 L Hgb 10.4 L Hct 32.5 L MCV 93.1 MCH 29.8 MCHC 32.0 RDW Std Deviation 49.1 H RDW Coeff of Adrian 14.6 H Plt Count 274 MPV 9.1 L Immature Gran % (Auto) 0.8 Neut % (Auto) 77.6 Lymph % (Auto) 14.0 Cloud % (Auto) 5.4 Eos % (Auto) 1.8 Baso % (Auto) 0.4 Neut # (Auto) 7.05 H Lymph # (Auto) 1.27 Cloud # (Auto) 0.49 Eos # (Auto) 0.16 Baso # (Auto) 0.04 Immature Gran # (Auto) 0.07 PT INR APTT PTT Ratio VBG pH VBG pCO2 VBG pO2 VBG HCO3 VBG O2 Saturation VBG Base Excess Sodium 143 Potassium 3.4 L Chloride 111 H Carbon Dioxide 22 Anion Gap 10 BUN 40 H Creatinine 3.85 H Est Cr Clr Drug Dosing 14.4 Est GFR ( Amer) 15.3 Est GFR (Non-Af Amer) 13.2 BUN/Creatinine Ratio 10.4 Glucose 88 POC Glucose 107 H 96 Lactate Calcium 8.1 L Phosphorus Magnesium Iron TIBC Unsaturated IBC Transferrin % Sat Ferritin Total Bilirubin 0.3 Direct Bilirubin AST 18 ALT 5 L Alkaline Phosphatase 117 H Troponin I High Sens Total Protein 5.9 L Albumin 2.2 L Globulin 3.7 Albumin/Globulin Ratio 0.6 L Procalcitonin Urine Color Urine Appearance Urine pH Ur Specific [place] Urine Protein Urine Glucose (UA) Urine Ketones Urine Blood Urine Nitrite Urine Bilirubin Urine Urobilinogen Ur Leukocyte Esterase Urine WBC (Auto) Urine RBC (Auto) U Hyaline Cast (Auto) U Epithel Cells (Auto) Urine Bacteria (Auto) Ur Renal Epithelial Cell Granular Casts Urine Yeast Urine Sperm Ur Random Creatinine Ur Random Sodium Complement C3 Complement C4 Tot Complement (CH50) Adenovirus (PCR) B. pertussis DNA (PCR) B.parapertussis DNA PCR C. pneumoniae DNA (PCR) Coronavirus OC43 (PCR) Coronavirus HKU1 (PCR) Coronavirus 229E (PCR) SARS-CoV-2 (PCR) Coronavirus NL63 (PCR) Enterococc faecalis PCR Human Metapneumovir PCR Influenza Type A (PCR) Influenza Type B (PCR) M. pneumoniae (PCR) Parainfluenza 1 (PCR) Parainfluenza 2 (PCR) Parainfluenza 3 (PCR) Parainfluenza 4 (PCR) RSV (PCR) Entero/Rhino (PCR) Eleno/B-Vanco Res Genes Bld Cult ID Panel PCR 04/02/23 04/02/23 04/02/23 12:04 16:45 20:17 WBC RBC Hgb Hct MCV MCH MCHC RDW Std Deviation RDW Coeff of Adrian Plt Count MPV Immature Gran % (Auto) Neut % (Auto) Lymph % (Auto) Cloud % (Auto) Eos % (Auto) Baso % (Auto) Neut # (Auto) Lymph # (Auto) Cloud # (Auto) Eos # (Auto) Baso # (Auto) Immature Gran # (Auto) PT INR APTT PTT Ratio VBG pH VBG pCO2 VBG pO2 VBG HCO3 VBG O2 Saturation VBG Base Excess Sodium Potassium Chloride Carbon Dioxide Anion Gap BUN Creatinine Est Cr Clr Drug Dosing Est GFR ( Amer) Est GFR (Non-Af Amer) BUN/Creatinine Ratio Glucose POC Glucose 93 86 85 Lactate Calcium Phosphorus Magnesium Iron TIBC Unsaturated IBC Transferrin % Sat Ferritin Total Bilirubin Direct Bilirubin AST ALT Alkaline Phosphatase Troponin I High Sens Total Protein Albumin Globulin Albumin/Globulin Ratio Procalcitonin Urine Color Urine Appearance Urine pH Ur Specific [place] Urine Protein Urine Glucose (UA) Urine Ketones Urine Blood Urine Nitrite Urine Bilirubin Urine Urobilinogen Ur Leukocyte Esterase Urine WBC (Auto) Urine RBC (Auto) U Hyaline Cast (Auto) U Epithel Cells (Auto) Urine Bacteria (Auto) Ur Renal Epithelial Cell Granular Casts Urine Yeast Urine Sperm Ur Random Creatinine Ur Random Sodium Complement C3 Complement C4 Tot Complement (CH50) Adenovirus (PCR) B. pertussis DNA (PCR) B.parapertussis DNA PCR C. pneumoniae DNA (PCR) Coronavirus OC43 (PCR) Coronavirus HKU1 (PCR) Coronavirus 229E (PCR) SARS-CoV-2 (PCR) Coronavirus NL63 (PCR) Enterococc faecalis PCR Human Metapneumovir PCR Influenza Type A (PCR) Influenza Type B (PCR) M. pneumoniae (PCR) Parainfluenza 1 (PCR) Parainfluenza 2 (PCR) Parainfluenza 3 (PCR) Parainfluenza 4 (PCR) RSV (PCR) Entero/Rhino (PCR) El[place]/B-Vanco Res Genes Bld Cult ID Panel PCR 04/03/23 04/03/23 04/03/23 06:58 07:57 11:35 WBC 8.10 RBC 3.14 L Hgb 9.3 L Hct 29.3 L MCV 93.3 MCH 29.6 MCHC 31.7 L RDW Std Deviation 50.3 H RDW Coeff of Adrian 14.9 H Plt Count 296 MPV 9.2 L Immature Gran % (Auto) 0.6 Neut % (Auto) 73.8 Lymph % (Auto) 16.7 Cloud % (Auto) 6.3 Eos % (Auto) 2.1 Baso % (Auto) 0.5 Neut # (Auto) 5.98 Lymph # (Auto) 1.35 Cloud # (Auto) 0.51 Eos # (Auto) 0.17 Baso # (Auto) 0.04 Immature Gran # (Auto) 0.05 PT INR APTT PTT Ratio VBG pH VBG pCO2 VBG pO2 VBG HCO3 VBG O2 Saturation VBG Base Excess Sodium 144 Potassium 3.2 L Chloride 112 H Carbon Dioxide 23 Anion Gap 9 BUN 40 H Creatinine 3.69 H Est Cr Clr Drug Dosing 15.0 Est GFR ( Amer) 16.1 Est GFR (Non-Af Amer) 13.9 BUN/Creatinine Ratio 10.8 Glucose 67 L POC Glucose 72 79 Lactate Calcium 8.0 L Phosphorus Magnesium Iron TIBC Unsaturated IBC Transferrin % Sat Ferritin Total Bilirubin 0.2 Direct Bilirubin AST 18 ALT 6 L Alkaline Phosphatase 125 H Troponin I High Sens Total Protein 5.9 L Albumin 2.1 L Globulin 3.8 Albumin/Globulin Ratio 0.6 L Procalcitonin Urine Color Urine Appearance Urine pH Ur Specific [place] Urine Protein Urine Glucose (UA) Urine Ketones Urine Blood Urine Nitrite Urine Bilirubin Urine Urobilinogen Ur Leukocyte Esterase Urine WBC (Auto) Urine RBC (Auto) U Hyaline Cast (Auto) U Epithel Cells (Auto) Urine Bacteria (Auto) Ur Renal Epithelial Cell Granular Casts Urine Yeast Urine Sperm Ur Random Creatinine Ur Random Sodium Complement C3 Complement C4 Tot Complement (CH50) Adenovirus (PCR) B. pertussis DNA (PCR) B.parapertussis DNA PCR C. pneumoniae DNA (PCR) Coronavirus OC43 (PCR) Coronavirus HKU1 (PCR) Coronavirus 229E (PCR) SARS-CoV-2 (PCR) Coronavirus NL63 (PCR) Enterococc faecalis PCR Human Metapneumovir PCR Influenza Type A (PCR) Influenza Type B (PCR) M. pneumoniae (PCR) Parainfluenza 1 (PCR) Parainfluenza 2 (PCR) Parainfluenza 3 (PCR) Parainfluenza 4 (PCR) RSV (PCR) Entero/Rhino (PCR) Eleno/B-Vanco Res Genes Bld Cult ID Panel PCR 04/03/23 04/03/23 04/04/23 16:39 20:04 06:51 WBC 6.29 RBC 3.09 L Hgb 9.1 L Hct 28.0 L MCV 90.6 MCH 29.4 MCHC 32.5 RDW Std Deviation 46.9 H RDW Coeff of Adrian 14.5 Plt Count 261 MPV 9.1 L Immature Gran % (Auto) 0.5 Neut % (Auto) 70.5 Lymph % (Auto) 19.6 Cloud % (Auto) 7.2 Eos % (Auto) 1.9 Baso % (Auto) 0.3 Neut # (Auto) 4.44 Lymph # (Auto) 1.23 Cloud # (Auto) 0.45 Eos # (Auto) 0.12 Baso # (Auto) 0.02 Immature Gran # (Auto) 0.03 PT INR APTT PTT Ratio VBG pH VBG pCO2 VBG pO2 VBG HCO3 VBG O2 Saturation VBG Base Excess Sodium 143 Potassium 3.0 L Chloride 112 H Carbon Dioxide 23 Anion Gap 8 BUN 37 H Creatinine 3.44 H Est Cr Clr Drug Dosing 16.1 Est GFR ( Amer) 17.5 Est GFR (Non-Af Amer) 15.1 BUN/Creatinine Ratio 10.8 Glucose 128 H POC Glucose 110 H 175 H Lactate Calcium 7.7 L Phosphorus Magnesium Iron TIBC Unsaturated IBC Transferrin % Sat Ferritin Total Bilirubin 0.2 Direct Bilirubin AST 18 ALT 5 L Alkaline Phosphatase 119 H Troponin I High Sens Total Protein 5.3 L Albumin 2.0 L Globulin 3.3 Albumin/Globulin Ratio 0.6 L Procalcitonin Urine Color Urine Appearance Urine pH Ur Specific [place] Urine Protein Urine Glucose (UA) Urine Ketones Urine Blood Urine Nitrite Urine Bilirubin Urine Urobilinogen Ur Leukocyte Esterase Urine WBC (Auto) Urine RBC (Auto) U Hyaline Cast (Auto) U Epithel Cells (Auto) Urine Bacteria (Auto) Ur Renal Epithelial Cell Granular Casts Urine Yeast Urine Sperm Ur Random Creatinine Ur Random Sodium Complement C3 Complement C4 Tot Complement (CH50) Adenovirus (PCR) B. pertussis DNA (PCR) B.parapertussis DNA PCR C. pneumoniae DNA (PCR) Coronavirus OC43 (PCR) Coronavirus HKU1 (PCR) Coronavirus 229E (PCR) SARS-CoV-2 (PCR) Coronavirus NL63 (PCR) Enterococc faecalis PCR Human Metapneumovir PCR Influenza Type A (PCR) Influenza Type B (PCR) M. pneumoniae (PCR) Parainfluenza 1 (PCR) Parainfluenza 2 (PCR) Parainfluenza 3 (PCR) Parainfluenza 4 (PCR) RSV (PCR) Entero/Rhino (PCR) El[place]/B-Vanco Res Genes Bld Cult ID Panel PCR 04/04/23 04/04/23 04/04/23 08:06 11:57 16:46 WBC RBC Hgb Hct MCV MCH MCHC RDW Std Deviation RDW Coeff of Adrian Plt Count MPV Immature Gran % (Auto) Neut % (Auto) Lymph % (Auto) Cloud % (Auto) Eos % (Auto) Baso % (Auto) Neut # (Auto) Lymph # (Auto) Cloud # (Auto) Eos # (Auto) Baso # (Auto) Immature Gran # (Auto) PT INR APTT PTT Ratio VBG pH VBG pCO2 VBG pO2 VBG HCO3 VBG O2 Saturation VBG Base Excess Sodium Potassium Chloride Carbon Dioxide Anion Gap BUN Creatinine Est Cr Clr Drug Dosing Est GFR ( Amer) Est GFR (Non-Af Amer) BUN/Creatinine Ratio Glucose POC Glucose 134 H 99 152 H Lactate Calcium Phosphorus Magnesium Iron TIBC Unsaturated IBC Transferrin % Sat Ferritin Total Bilirubin Direct Bilirubin AST ALT Alkaline Phosphatase Troponin I High Sens Total Protein Albumin Globulin Albumin/Globulin Ratio Procalcitonin Urine Color Urine Appearance Urine pH Ur Specific [place] Urine Protein Urine Glucose (UA) Urine Ketones Urine Blood Urine Nitrite Urine Bilirubin Urine Urobilinogen Ur Leukocyte Esterase Urine WBC (Auto) Urine RBC (Auto) U Hyaline Cast (Auto) U Epithel Cells (Auto) Urine Bacteria (Auto) Ur Renal Epithelial Cell Granular Casts Urine Yeast Urine Sperm Ur Random Creatinine Ur Random Sodium Complement C3 Complement C4 Tot Complement (CH50) Adenovirus (PCR) B. pertussis DNA (PCR) B.parapertussis DNA PCR C. pneumoniae DNA (PCR) Coronavirus OC43 (PCR) Coronavirus HKU1 (PCR) Coronavirus 229E (PCR) SARS-CoV-2 (PCR) Coronavirus NL63 (PCR) Enterococc faecalis PCR Human Metapneumovir PCR Influenza Type A (PCR) Influenza Type B (PCR) M. pneumoniae (PCR) Parainfluenza 1 (PCR) Parainfluenza 2 (PCR) Parainfluenza 3 (PCR) Parainfluenza 4 (PCR) RSV (PCR) Entero/Rhino (PCR) El[place]/B-Vanco Res Genes Bld Cult ID Panel PCR 04/04/23 04/05/23 04/05/23 20:06 07:30 08:13 WBC 5.89 RBC 3.11 L Hgb 9.2 L Hct 28.0 L MCV 90.0 MCH 29.6 MCHC 32.9 RDW Std Deviation 47.9 H RDW Coeff of Adrian 14.7 H Plt Count 233 MPV 8.4 L Immature Gran % (Auto) 0.3 Neut % (Auto) 63.0 Lymph % (Auto) 26.8 Cloud % (Auto) 6.5 Eos % (Auto) 2.7 Baso % (Auto) 0.7 Neut # (Auto) 3.71 Lymph # (Auto) 1.58 Cloud # (Auto) 0.38 Eos # (Auto) 0.16 Baso # (Auto) 0.04 Immature Gran # (Auto) 0.02 PT INR APTT PTT Ratio VBG pH VBG pCO2 VBG pO2 VBG HCO3 VBG O2 Saturation VBG Base Excess Sodium 142 Potassium 3.0 L Chloride 110 H Carbon Dioxide 25 Anion Gap 7 BUN 37 H Creatinine 3.59 H Est Cr Clr Drug Dosing 15.5 Est GFR ( Amer) 16.7 Est GFR (Non-Af Amer) 14.4 BUN/Creatinine Ratio 10.3 Glucose 154 H POC Glucose 182 H 156 H Lactate Calcium 7.7 L Phosphorus Magnesium Iron TIBC Unsaturated IBC Transferrin % Sat Ferritin Total Bilirubin 0.3 Direct Bilirubin AST 14 ALT 6 L Alkaline Phosphatase 109 H Troponin I High Sens Total Protein 5.5 L Albumin 2.0 L Globulin 3.5 Albumin/Globulin Ratio 0.6 L Procalcitonin Urine Color Urine Appearance Urine pH Ur Specific [place] Urine Protein Urine Glucose (UA) Urine Ketones Urine Blood Urine Nitrite Urine Bilirubin Urine Urobilinogen Ur Leukocyte Esterase Urine WBC (Auto) Urine RBC (Auto) U Hyaline Cast (Auto) U Epithel Cells (Auto) Urine Bacteria (Auto) Ur Renal Epithelial Cell Granular Casts Urine Yeast Urine Sperm Ur Random Creatinine Ur Random Sodium Complement C3 Complement C4 Tot Complement (CH50) Adenovirus (PCR) B. pertussis DNA (PCR) B.parapertussis DNA PCR C. pneumoniae DNA (PCR) Coronavirus OC43 (PCR) Coronavirus HKU1 (PCR) Coronavirus 229E (PCR) SARS-CoV-2 (PCR) Coronavirus NL63 (PCR) Enterococc faecalis PCR Human Metapneumovir PCR Influenza Type A (PCR) Influenza Type B (PCR) M. pneumoniae (PCR) Parainfluenza 1 (PCR) Parainfluenza 2 (PCR) Parainfluenza 3 (PCR) Parainfluenza 4 (PCR) RSV (PCR) Entero/Rhino (PCR) El[place]/B-Vanco Res Genes Bld Cult ID Panel PCR 04/05/23 04/05/23 04/05/23 11:30 16:33 20:34 WBC RBC Hgb Hct MCV MCH MCHC RDW Std Deviation RDW Coeff of Adrian Plt Count MPV Immature Gran % (Auto) Neut % (Auto) Lymph % (Auto) Cloud % (Auto) Eos % (Auto) Baso % (Auto) Neut # (Auto) Lymph # (Auto) Cloud # (Auto) Eos # (Auto) Baso # (Auto) Immature Gran # (Auto) PT INR APTT PTT Ratio VBG pH VBG pCO2 VBG pO2 VBG HCO3 VBG O2 Saturation VBG Base Excess Sodium Potassium Chloride Carbon Dioxide Anion Gap BUN Creatinine Est Cr Clr Drug Dosing Est GFR ( Amer) Est GFR (Non-Af Amer) BUN/Creatinine Ratio Glucose POC Glucose 181 H 169 H 183 H Lactate Calcium Phosphorus Magnesium Iron TIBC Unsaturated IBC Transferrin % Sat Ferritin Total Bilirubin Direct Bilirubin AST ALT Alkaline Phosphatase Troponin I High Sens Total Protein Albumin Globulin Albumin/Globulin Ratio Procalcitonin Urine Color Urine Appearance Urine pH Ur Specific [place] Urine Protein Urine Glucose (UA) Urine Ketones Urine Blood Urine Nitrite Urine Bilirubin Urine Urobilinogen Ur Leukocyte Esterase Urine WBC (Auto) Urine RBC (Auto) U Hyaline Cast (Auto) U Epithel Cells (Auto) Urine Bacteria (Auto) Ur Renal Epithelial Cell Granular Casts Urine Yeast Urine Sperm Ur Random Creatinine Ur Random Sodium Complement C3 Complement C4 Tot Complement (CH50) Adenovirus (PCR) B. pertussis DNA (PCR) B.parapertussis DNA PCR C. pneumoniae DNA (PCR) Coronavirus OC43 (PCR) Coronavirus HKU1 (PCR) Coronavirus 229E (PCR) SARS-CoV-2 (PCR) Coronavirus NL63 (PCR) Enterococc faecalis PCR Human Metapneumovir PCR Influenza Type A (PCR) Influenza Type B (PCR) M. pneumoniae (PCR) Parainfluenza 1 (PCR) Parainfluenza 2 (PCR) Parainfluenza 3 (PCR) Parainfluenza 4 (PCR) RSV (PCR) Entero/Rhino (PCR) Eleno/B-Vanco Res Genes Bld Cult ID Panel PCR 04/06/23 04/06/23 04/06/23 07:32 07:50 11:32 WBC 6.58 RBC 3.39 L Hgb 10.1 L Hct 31.2 L MCV 92.0 MCH 29.8 MCHC 32.4 RDW Std Deviation 49.7 H RDW Coeff of Adrian 14.9 H Plt Count 246 MPV 8.8 L Immature Gran % (Auto) 0.3 Neut % (Auto) 73.1 Lymph % (Auto) 18.5 Cloud % (Auto) 5.2 Eos % (Auto) 2.3 Baso % (Auto) 0.6 Neut # (Auto) 4.81 Lymph # (Auto) 1.22 Cloud # (Auto) 0.34 Eos # (Auto) 0.15 Baso # (Auto) 0.04 Immature Gran # (Auto) 0.02 PT INR APTT PTT Ratio VBG pH VBG pCO2 VBG pO2 VBG HCO3 VBG O2 Saturation VBG Base Excess Sodium 143 Potassium 3.2 L Chloride 111 H Carbon Dioxide 23 Anion Gap 9 BUN 37 H Creatinine 3.39 H Est Cr Clr Drug Dosing 16.4 Est GFR ( Amer) 17.8 Est GFR (Non-Af Amer) 15.4 BUN/Creatinine Ratio 10.9 Glucose 166 H POC Glucose 176 H 201 H Lactate Calcium 8.0 L Phosphorus Magnesium Iron TIBC Unsaturated IBC Transferrin % Sat Ferritin Total Bilirubin 0.2 Direct Bilirubin AST 15 ALT 5 L Alkaline Phosphatase 117 H Troponin I High Sens Total Protein 5.7 L Albumin 2.1 L Globulin 3.6 Albumin/Globulin Ratio 0.6 L Procalcitonin Urine Color Urine Appearance Urine pH Ur Specific [place] Urine Protein Urine Glucose (UA) Urine Ketones Urine Blood Urine Nitrite Urine Bilirubin Urine Urobilinogen Ur Leukocyte Esterase Urine WBC (Auto) Urine RBC (Auto) U Hyaline Cast (Auto) U Epithel Cells (Auto) Urine Bacteria (Auto) Ur Renal Epithelial Cell Granular Casts Urine Yeast Urine Sperm Ur Random Creatinine Ur Random Sodium Complement C3 Complement C4 Tot Complement (CH50) Adenovirus (PCR) B. pertussis DNA (PCR) B.parapertussis DNA PCR C. pneumoniae DNA (PCR) Coronavirus OC43 (PCR) Coronavirus HKU1 (PCR) Coronavirus 229E (PCR) SARS-CoV-2 (PCR) Coronavirus NL63 (PCR) Enterococc faecalis PCR Human Metapneumovir PCR Influenza Type A (PCR) Influenza Type B (PCR) M. pneumoniae (PCR) Parainfluenza 1 (PCR) Parainfluenza 2 (PCR) Parainfluenza 3 (PCR) Parainfluenza 4 (PCR) RSV (PCR) Entero/Rhino (PCR) Eleno/B-Vanco Res Genes Bld Cult ID Panel PCR 04/06/23 04/06/23 04/07/23 16:34 20:37 07:20 WBC 7.73 RBC 3.17 L Hgb 9.2 L Hct 28.4 L MCV 89.6 MCH 29.0 MCHC 32.4 RDW Std Deviation 49.0 H RDW Coeff of Adrian 14.9 H Plt Count 227 MPV 8.9 L Immature Gran % (Auto) 0.6 Neut % (Auto) 81.8 Lymph % (Auto) 12.5 Cloud % (Auto) 3.8 Eos % (Auto) 0.9 Baso % (Auto) 0.4 Neut # (Auto) 6.32 Lymph # (Auto) 0.97 L Cloud # (Auto) 0.29 Eos # (Auto) 0.07 Baso # (Auto) 0.03 Immature Gran # (Auto) 0.05 PT INR APTT PTT Ratio VBG pH VBG pCO2 VBG pO2 VBG HCO3 VBG O2 Saturation VBG Base Excess Sodium 144 Potassium 3.1 L Chloride 112 H Carbon Dioxide 24 Anion Gap 8 BUN 37 H Creatinine 3.33 H Est Cr Clr Drug Dosing 16.7 Est GFR ( Amer) 18.2 Est GFR (Non-Af Amer) 15.7 BUN/Creatinine Ratio 11.1 Glucose 206 H POC Glucose 209 H 184 H Lactate Calcium 7.8 L Phosphorus Magnesium Iron TIBC Unsaturated IBC Transferrin % Sat Ferritin Total Bilirubin 0.2 Direct Bilirubin AST 13 ALT 5 L Alkaline Phosphatase 104 Troponin I High Sens Total Protein 5.2 L Albumin 1.9 L Globulin 3.3 Albumin/Globulin Ratio 0.6 L Procalcitonin Urine Color Urine Appearance Urine pH Ur Specific [place] Urine Protein Urine Glucose (UA) Urine Ketones Urine Blood Urine Nitrite Urine Bilirubin Urine Urobilinogen Ur Leukocyte Esterase Urine WBC (Auto) Urine RBC (Auto) U Hyaline Cast (Auto) U Epithel Cells (Auto) Urine Bacteria (Auto) Ur Renal Epithelial Cell Granular Casts Urine Yeast Urine Sperm Ur Random Creatinine Ur Random Sodium Complement C3 Complement C4 Tot Complement (CH50) Adenovirus (PCR) B. pertussis DNA (PCR) B.parapertussis DNA PCR C. pneumoniae DNA (PCR) Coronavirus OC43 (PCR) Coronavirus HKU1 (PCR) Coronavirus 229E (PCR) SARS-CoV-2 (PCR) Coronavirus NL63 (PCR) Enterococc faecalis PCR Human Metapneumovir PCR Influenza Type A (PCR) Influenza Type B (PCR) M. pneumoniae (PCR) Parainfluenza 1 (PCR) Parainfluenza 2 (PCR) Parainfluenza 3 (PCR) Parainfluenza 4 (PCR) RSV (PCR) Entero/Rhino (PCR) Eleno/B-Vanco Res Genes Bld Cult ID Panel PCR 04/07/23 04/07/23 04/07/23 07:54 11:48 16:55 WBC RBC Hgb Hct MCV MCH MCHC RDW Std Deviation RDW Coeff of Adrian Plt Count MPV Immature Gran % (Auto) Neut % (Auto) Lymph % (Auto) Cloud % (Auto) Eos % (Auto) Baso % (Auto) Neut # (Auto) Lymph # (Auto) Cloud # (Auto) Eos # (Auto) Baso # (Auto) Immature Gran # (Auto) PT INR APTT PTT Ratio VBG pH VBG pCO2 VBG pO2 VBG HCO3 VBG O2 Saturation VBG Base Excess Sodium Potassium Chloride Carbon Dioxide Anion Gap BUN Creatinine Est Cr Clr Drug Dosing Est GFR ( Amer) Est GFR (Non-Af Amer) BUN/Creatinine Ratio Glucose POC Glucose 195 H 189 H 193 H Lactate Calcium Phosphorus Magnesium Iron TIBC Unsaturated IBC Transferrin % Sat Ferritin Total Bilirubin Direct Bilirubin AST ALT Alkaline Phosphatase Troponin I High Sens Total Protein Albumin Globulin Albumin/Globulin Ratio Procalcitonin Urine Color Urine Appearance Urine pH Ur Specific [place] Urine Protein Urine Glucose (UA) Urine Ketones Urine Blood Urine Nitrite Urine Bilirubin Urine Urobilinogen Ur Leukocyte Esterase Urine WBC (Auto) Urine RBC (Auto) U Hyaline Cast (Auto) U Epithel Cells (Auto) Urine Bacteria (Auto) Ur Renal Epithelial Cell Granular Casts Urine Yeast Urine Sperm Ur Random Creatinine Ur Random Sodium Complement C3 Complement C4 Tot Complement (CH50) Adenovirus (PCR) B. pertussis DNA (PCR) B.parapertussis DNA PCR C. pneumoniae DNA (PCR) Coronavirus OC43 (PCR) Coronavirus HKU1 (PCR) Coronavirus 229E (PCR) SARS-CoV-2 (PCR) Coronavirus NL63 (PCR) Enterococc faecalis PCR Human Metapneumovir PCR Influenza Type A (PCR) Influenza Type B (PCR) M. pneumoniae (PCR) Parainfluenza 1 (PCR) Parainfluenza 2 (PCR) Parainfluenza 3 (PCR) Parainfluenza 4 (PCR) RSV (PCR) Entero/Rhino (PCR) Eleno/B-Vanco Res Genes Bld Cult ID Panel PCR 04/07/23 04/08/23 04/08/23 21:16 07:11 07:32 WBC 6.76 RBC 3.03 L Hgb 8.9 L Hct 27.8 L MCV 91.7 MCH 29.4 MCHC 32.0 RDW Std Deviation 50.4 H RDW Coeff of Adrian 14.9 H Plt Count 215 MPV 9.3 L Immature Gran % (Auto) 0.7 Neut % (Auto) 65.2 Lymph % (Auto) 24.3 Cloud % (Auto) 5.9 Eos % (Auto) 3.3 Baso % (Auto) 0.6 Neut # (Auto) 4.41 Lymph # (Auto) 1.64 Cloud # (Auto) 0.40 Eos # (Auto) 0.22 Baso # (Auto) 0.04 Immature Gran # (Auto) 0.05 PT INR APTT PTT Ratio VBG pH VBG pCO2 VBG pO2 VBG HCO3 VBG O2 Saturation VBG Base Excess Sodium 144 Potassium 2.8 L Chloride 113 H Carbon Dioxide 24 Anion Gap 7 BUN 41 H Creatinine 3.80 H D Est Cr Clr Drug Dosing 14.5 Est GFR ( Amer) 15.5 Est GFR (Non-Af Amer) 13.4 BUN/Creatinine Ratio 10.8 Glucose 166 H POC Glucose 141 H 181 H Lactate Calcium 7.6 L Phosphorus Magnesium Iron TIBC Unsaturated IBC Transferrin % Sat Ferritin Total Bilirubin 0.2 Direct Bilirubin AST 13 ALT 7 Alkaline Phosphatase 93 Troponin I High Sens Total Protein 4.9 L Albumin 1.9 L Globulin 3.0 Albumin/Globulin Ratio 0.6 L Procalcitonin Urine Color Urine Appearance Urine pH Ur Specific [place] Urine Protein Urine Glucose (UA) Urine Ketones Urine Blood Urine Nitrite Urine Bilirubin Urine Urobilinogen Ur Leukocyte Esterase Urine WBC (Auto) Urine RBC (Auto) U Hyaline Cast (Auto) U Epithel Cells (Auto) Urine Bacteria (Auto) Ur Renal Epithelial Cell Granular Casts Urine Yeast Urine Sperm Ur Random Creatinine Ur Random Sodium Complement C3 Complement C4 Tot Complement (CH50) Adenovirus (PCR) B. pertussis DNA (PCR) B.parapertussis DNA PCR C. pneumoniae DNA (PCR) Coronavirus OC43 (PCR) Coronavirus HKU1 (PCR) Coronavirus 229E (PCR) SARS-CoV-2 (PCR) Coronavirus NL63 (PCR) Enterococc faecalis PCR Human Metapneumovir PCR Influenza Type A (PCR) Influenza Type B (PCR) M. pneumoniae (PCR) Parainfluenza 1 (PCR) Parainfluenza 2 (PCR) Parainfluenza 3 (PCR) Parainfluenza 4 (PCR) RSV (PCR) Entero/Rhino (PCR) Eleno/B-Vanco Res Genes Bld Cult ID Panel PCR 04/08/23 04/08/23 04/08/23 11:53 16:31 20:32 WBC RBC Hgb Hct MCV MCH MCHC RDW Std Deviation RDW Coeff of Adrian Plt Count MPV Immature Gran % (Auto) Neut % (Auto) Lymph % (Auto) Cloud % (Auto) Eos % (Auto) Baso % (Auto) Neut # (Auto) Lymph # (Auto) Cloud # (Auto) Eos # (Auto) Baso # (Auto) Immature Gran # (Auto) PT INR APTT PTT Ratio VBG pH VBG pCO2 VBG pO2 VBG HCO3 VBG O2 Saturation VBG Base Excess Sodium Potassium Chloride Carbon Dioxide Anion Gap BUN Creatinine Est Cr Clr Drug Dosing Est GFR ( Amer) Est GFR (Non-Af Amer) BUN/Creatinine Ratio Glucose POC Glucose 186 H 159 H 133 H Lactate Calcium Phosphorus Magnesium Iron TIBC Unsaturated IBC Transferrin % Sat Ferritin Total Bilirubin Direct Bilirubin AST ALT Alkaline Phosphatase Troponin I High Sens Total Protein Albumin Globulin Albumin/Globulin Ratio Procalcitonin Urine Color Urine Appearance Urine pH Ur Specific [place] Urine Protein Urine Glucose (UA) Urine Ketones Urine Blood Urine Nitrite Urine Bilirubin Urine Urobilinogen Ur Leukocyte Esterase Urine WBC (Auto) Urine RBC (Auto) U Hyaline Cast (Auto) U Epithel Cells (Auto) Urine Bacteria (Auto) Ur Renal Epithelial Cell Granular Casts Urine Yeast Urine Sperm Ur Random Creatinine Ur Random Sodium Complement C3 Complement C4 Tot Complement (CH50) Adenovirus (PCR) B. pertussis DNA (PCR) B.parapertussis DNA PCR C. pneumoniae DNA (PCR) Coronavirus OC43 (PCR) Coronavirus HKU1 (PCR) Coronavirus 229E (PCR) SARS-CoV-2 (PCR) Coronavirus NL63 (PCR) Enterococc faecalis PCR Human Metapneumovir PCR Influenza Type A (PCR) Influenza Type B (PCR) M. pneumoniae (PCR) Parainfluenza 1 (PCR) Parainfluenza 2 (PCR) Parainfluenza 3 (PCR) Parainfluenza 4 (PCR) RSV (PCR) Entero/Rhino (PCR) Eleno/B-Vanco Res Genes Bld Cult ID Panel PCR 04/09/23 04/09/23 04/09/23 06:53 07:40 11:39 WBC 6.44 RBC 3.22 L Hgb 9.4 L Hct 30.0 L MCV 93.2 MCH 29.2 MCHC 31.3 L RDW Std Deviation 53.4 H RDW Coeff of Adrian 15.8 H Plt Count 200 MPV 9.0 L Immature Gran % (Auto) 0.8 Neut % (Auto) 65.9 Lymph % (Auto) 24.2 Cloud % (Auto) 5.7 Eos % (Auto) 2.8 Baso % (Auto) 0.6 Neut # (Auto) 4.24 Lymph # (Auto) 1.56 Cloud # (Auto) 0.37 Eos # (Auto) 0.18 Baso # (Auto) 0.04 Immature Gran # (Auto) 0.05 PT INR APTT PTT Ratio VBG pH VBG pCO2 VBG pO2 VBG HCO3 VBG O2 Saturation VBG Base Excess Sodium 143 Potassium 3.8 D Chloride 114 H Carbon Dioxide 23 Anion Gap 6 BUN 40 H Creatinine 3.68 H Est Cr Clr Drug Dosing 15.0 Est GFR ( Amer) 16.2 Est GFR (Non-Af Amer) 13.9 BUN/Creatinine Ratio 10.9 Glucose 137 H POC Glucose 154 H 182 H Lactate Calcium 7.6 L Phosphorus Magnesium Iron TIBC Unsaturated IBC Transferrin % Sat Ferritin Total Bilirubin 0.2 Direct Bilirubin AST 15 ALT 6 L Alkaline Phosphatase 87 Troponin I High Sens Total Protein 4.8 L Albumin 1.8 L Globulin 3.0 Albumin/Globulin Ratio 0.6 L Procalcitonin Urine Color Urine Appearance Urine pH Ur Specific [place] Urine Protein Urine Glucose (UA) Urine Ketones Urine Blood Urine Nitrite Urine Bilirubin Urine Urobilinogen Ur Leukocyte Esterase Urine WBC (Auto) Urine RBC (Auto) U Hyaline Cast (Auto) U Epithel Cells (Auto) Urine Bacteria (Auto) Ur Renal Epithelial Cell Granular Casts Urine Yeast Urine Sperm Ur Random Creatinine Ur Random Sodium Complement C3 Complement C4 Tot Complement (CH50) Adenovirus (PCR) B. pertussis DNA (PCR) B.parapertussis DNA PCR C. pneumoniae DNA (PCR) Coronavirus OC43 (PCR) Coronavirus HKU1 (PCR) Coronavirus 229E (PCR) SARS-CoV-2 (PCR) Coronavirus NL63 (PCR) Enterococc faecalis PCR Human Metapneumovir PCR Influenza Type A (PCR) Influenza Type B (PCR) M. pneumoniae (PCR) Parainfluenza 1 (PCR) Parainfluenza 2 (PCR) Parainfluenza 3 (PCR) Parainfluenza 4 (PCR) RSV (PCR) Entero/Rhino (PCR) Eleno/B-Vanco Res Genes Bld Cult ID Panel PCR 04/09/23 04/09/23 04/10/23 16:31 20:59 07:04 WBC 8.08 RBC 3.42 L Hgb 10.0 L Hct 32.0 L MCV 93.6 MCH 29.2 MCHC 31.3 L RDW Std Deviation 54.1 H RDW Coeff of Adrian 15.9 H Plt Count 206 MPV 9.1 L Immature Gran % (Auto) 0.5 Neut % (Auto) 71.6 Lymph % (Auto) 20.7 Cloud % (Auto) 4.6 Eos % (Auto) 2.0 Baso % (Auto) 0.6 Neut # (Auto) 5.79 Lymph # (Auto) 1.67 Cloud # (Auto) 0.37 Eos # (Auto) 0.16 Baso # (Auto) 0.05 Immature Gran # (Auto) 0.04 PT INR APTT PTT Ratio VBG pH VBG pCO2 VBG pO2 VBG HCO3 VBG O2 Saturation VBG Base Excess Sodium 142 Potassium 3.7 Chloride 112 H Carbon Dioxide 22 Anion Gap 8 BUN 39 H Creatinine 3.41 H Est Cr Clr Drug Dosing 16.2 Est GFR ( Amer) 17.7 Est GFR (Non-Af Amer) 15.3 BUN/Creatinine Ratio 11.4 Glucose 138 H POC Glucose 143 H 123 H Lactate Calcium 7.5 L Phosphorus Magnesium Iron TIBC Unsaturated IBC Transferrin % Sat Ferritin Total Bilirubin 0.3 Direct Bilirubin AST 15 ALT 6 L Alkaline Phosphatase 93 Troponin I High Sens Total Protein 5.3 L Albumin 2.0 L Globulin 3.3 Albumin/Globulin Ratio 0.6 L Procalcitonin Urine Color Urine Appearance Urine pH Ur Specific [place] Urine Protein Urine Glucose (UA) Urine Ketones Urine Blood Urine Nitrite Urine Bilirubin Urine Urobilinogen Ur Leukocyte Esterase Urine WBC (Auto) Urine RBC (Auto) U Hyaline Cast (Auto) U Epithel Cells (Auto) Urine Bacteria (Auto) Ur Renal Epithelial Cell Granular Casts Urine Yeast Urine Sperm Ur Random Creatinine Ur Random Sodium Complement C3 Complement C4 Tot Complement (CH50) Adenovirus (PCR) B. pertussis DNA (PCR) B.parapertussis DNA PCR C. pneumoniae DNA (PCR) Coronavirus OC43 (PCR) Coronavirus HKU1 (PCR) Coronavirus 229E (PCR) SARS-CoV-2 (PCR) Coronavirus NL63 (PCR) Enterococc faecalis PCR Human Metapneumovir PCR Influenza Type A (PCR) Influenza Type B (PCR) M. pneumoniae (PCR) Parainfluenza 1 (PCR) Parainfluenza 2 (PCR) Parainfluenza 3 (PCR) Parainfluenza 4 (PCR) RSV (PCR) Entero/Rhino (PCR) El[place]/B-Vanco Res Genes Bld Cult ID Panel PCR 04/10/23 04/10/23 04/10/23 07:53 11:30 16:39 WBC RBC Hgb Hct MCV MCH MCHC RDW Std Deviation RDW Coeff of Adrian Plt Count MPV Immature Gran % (Auto) Neut % (Auto) Lymph % (Auto) Cloud % (Auto) Eos % (Auto) Baso % (Auto) Neut # (Auto) Lymph # (Auto) Cloud # (Auto) Eos # (Auto) Baso # (Auto) Immature Gran # (Auto) PT INR APTT PTT Ratio VBG pH VBG pCO2 VBG pO2 VBG HCO3 VBG O2 Saturation VBG Base Excess Sodium Potassium Chloride Carbon Dioxide Anion Gap BUN Creatinine Est Cr Clr Drug Dosing Est GFR ( Amer) Est GFR (Non-Af Amer) BUN/Creatinine Ratio Glucose POC Glucose 122 H 156 H 137 H Lactate Calcium Phosphorus Magnesium Iron TIBC Unsaturated IBC Transferrin % Sat Ferritin Total Bilirubin Direct Bilirubin AST ALT Alkaline Phosphatase Troponin I High Sens Total Protein Albumin Globulin Albumin/Globulin Ratio Procalcitonin Urine Color Urine Appearance Urine pH Ur Specific [place] Urine Protein Urine Glucose (UA) Urine Ketones Urine Blood Urine Nitrite Urine Bilirubin Urine Urobilinogen Ur Leukocyte Esterase Urine WBC (Auto) Urine RBC (Auto) U Hyaline Cast (Auto) U Epithel Cells (Auto) Urine Bacteria (Auto) Ur Renal Epithelial Cell Granular Casts Urine Yeast Urine Sperm Ur Random Creatinine Ur Random Sodium Complement C3 Complement C4 Tot Complement (CH50) Adenovirus (PCR) B. pertussis DNA (PCR) B.parapertussis DNA PCR C. pneumoniae DNA (PCR) Coronavirus OC43 (PCR) Coronavirus HKU1 (PCR) Coronavirus 229E (PCR) SARS-CoV-2 (PCR) Coronavirus NL63 (PCR) Enterococc faecalis PCR Human Metapneumovir PCR Influenza Type A (PCR) Influenza Type B (PCR) M. pneumoniae (PCR) Parainfluenza 1 (PCR) Parainfluenza 2 (PCR) Parainfluenza 3 (PCR) Parainfluenza 4 (PCR) RSV (PCR) Entero/Rhino (PCR) [place]/B-Vanco Res Genes Bld Cult ID Panel PCR 04/10/23 04/11/23 04/11/23 20:07 06:40 07:47 WBC 7.25 RBC 3.18 L Hgb 9.4 L Hct 29.6 L MCV 93.1 MCH 29.6 MCHC 31.8 L RDW Std Deviation 54.7 H RDW Coeff of Adrian 16.0 H Plt Count 176 MPV 9.4 Immature Gran % (Auto) 0.6 Neut % (Auto) 66.0 Lymph % (Auto) 23.7 Cloud % (Auto) 6.8 Eos % (Auto) 2.2 Baso % (Auto) 0.7 Neut # (Auto) 4.79 Lymph # (Auto) 1.72 Cloud # (Auto) 0.49 Eos # (Auto) 0.16 Baso # (Auto) 0.05 Immature Gran # (Auto) 0.04 PT INR APTT PTT Ratio VBG pH VBG pCO2 VBG pO2 VBG HCO3 VBG O2 Saturation VBG Base Excess Sodium 142 Potassium 3.5 Chloride 112 H Carbon Dioxide 24 Anion Gap 6 BUN 41 H Creatinine 3.52 H Est Cr Clr Drug Dosing 15.7 Est GFR ( Amer) 17.1 Est GFR (Non-Af Amer) 14.7 BUN/Creatinine Ratio 11.6 Glucose 161 H POC Glucose 173 H 161 H Lactate Calcium 7.6 L Phosphorus Magnesium Iron TIBC Unsaturated IBC Transferrin % Sat Ferritin Total Bilirubin 0.2 Direct Bilirubin AST 12 L ALT 6 L Alkaline Phosphatase 82 Troponin I High Sens Total Protein 4.9 L Albumin 1.9 L Globulin 3.0 Albumin/Globulin Ratio 0.6 L Procalcitonin Urine Color Urine Appearance Urine pH Ur Specific [place] Urine Protein Urine Glucose (UA) Urine Ketones Urine Blood Urine Nitrite Urine Bilirubin Urine Urobilinogen Ur Leukocyte Esterase Urine WBC (Auto) Urine RBC (Auto) U Hyaline Cast (Auto) U Epithel Cells (Auto) Urine Bacteria (Auto) Ur Renal Epithelial Cell Granular Casts Urine Yeast Urine Sperm Ur Random Creatinine Ur Random Sodium Complement C3 Complement C4 Tot Complement (CH50) Adenovirus (PCR) B. pertussis DNA (PCR) B.parapertussis DNA PCR C. pneumoniae DNA (PCR) Coronavirus OC43 (PCR) Coronavirus HKU1 (PCR) Coronavirus 229E (PCR) SARS-CoV-2 (PCR) Coronavirus NL63 (PCR) Enterococc faecalis PCR Human Metapneumovir PCR Influenza Type A (PCR) Influenza Type B (PCR) M. pneumoniae (PCR) Parainfluenza 1 (PCR) Parainfluenza 2 (PCR) Parainfluenza 3 (PCR) Parainfluenza 4 (PCR) RSV (PCR) Entero/Rhino (PCR) [place]/B-Vanco Res Genes Bld Cult ID Panel PCR 04/11/23 04/11/23 04/11/23 11:29 16:47 20:05 WBC RBC Hgb Hct MCV MCH MCHC RDW Std Deviation RDW Coeff of Adrian Plt Count MPV Immature Gran % (Auto) Neut % (Auto) Lymph % (Auto) Cloud % (Auto) Eos % (Auto) Baso % (Auto) Neut # (Auto) Lymph # (Auto) Cloud # (Auto) Eos # (Auto) Baso # (Auto) Immature Gran # (Auto) PT INR APTT PTT Ratio VBG pH VBG pCO2 VBG pO2 VBG HCO3 VBG O2 Saturation VBG Base Excess Sodium Potassium Chloride Carbon Dioxide Anion Gap BUN Creatinine Est Cr Clr Drug Dosing Est GFR ( Amer) Est GFR (Non-Af Amer) BUN/Creatinine Ratio Glucose POC Glucose 164 H 180 H 142 H Lactate Calcium Phosphorus Magnesium Iron TIBC Unsaturated IBC Transferrin % Sat Ferritin Total Bilirubin Direct Bilirubin AST ALT Alkaline Phosphatase Troponin I High Sens Total Protein Albumin Globulin Albumin/Globulin Ratio Procalcitonin Urine Color Urine Appearance Urine pH Ur Specific [place] Urine Protein Urine Glucose (UA) Urine Ketones Urine Blood Urine Nitrite Urine Bilirubin Urine Urobilinogen Ur Leukocyte Esterase Urine WBC (Auto) Urine RBC (Auto) U Hyaline Cast (Auto) U Epithel Cells (Auto) Urine Bacteria (Auto) Ur Renal Epithelial Cell Granular Casts Urine Yeast Urine Sperm Ur Random Creatinine Ur Random Sodium Complement C3 Complement C4 Tot Complement (CH50) Adenovirus (PCR) B. pertussis DNA (PCR) B.parapertussis DNA PCR C. pneumoniae DNA (PCR) Coronavirus OC43 (PCR) Coronavirus HKU1 (PCR) Coronavirus 229E (PCR) SARS-CoV-2 (PCR) Coronavirus NL63 (PCR) Enterococc faecalis PCR Human Metapneumovir PCR Influenza Type A (PCR) Influenza Type B (PCR) M. pneumoniae (PCR) Parainfluenza 1 (PCR) Parainfluenza 2 (PCR) Parainfluenza 3 (PCR) Parainfluenza 4 (PCR) RSV (PCR) Entero/Rhino (PCR) [place]/B-Vanco Res Genes Bld Cult ID Panel PCR 04/12/23 04/12/23 04/12/23 05:31 07:29 11:44 WBC 9.86 RBC 3.36 L Hgb 10.0 L Hct 30.7 L MCV 91.4 MCH 29.8 MCHC 32.6 RDW Std Deviation 54.0 H RDW Coeff of Adrian 16.3 H Plt Count 171 MPV 9.0 L Immature Gran % (Auto) 0.7 Neut % (Auto) 73.7 Lymph % (Auto) 18.0 Cloud % (Auto) 5.5 Eos % (Auto) 1.6 Baso % (Auto) 0.5 Neut # (Auto) 7.27 H Lymph # (Auto) 1.77 Cloud # (Auto) 0.54 Eos # (Auto) 0.16 Baso # (Auto) 0.05 Immature Gran # (Auto) 0.07 PT INR APTT PTT Ratio VBG pH VBG pCO2 VBG pO2 VBG HCO3 VBG O2 Saturation VBG Base Excess Sodium 142 Potassium 3.6 Chloride 113 H Carbon Dioxide 21 Anion Gap 8 BUN 41 H Creatinine 3.43 H Est Cr Clr Drug Dosing 16.1 Est GFR ( Amer) 17.6 Est GFR (Non-Af Amer) 15.2 BUN/Creatinine Ratio 12.0 Glucose 119 H POC Glucose 105 H 125 H Lactate Calcium 7.6 L Phosphorus Magnesium Iron TIBC Unsaturated IBC Transferrin % Sat Ferritin Total Bilirubin 0.2 Direct Bilirubin AST 13 ALT 5 L Alkaline Phosphatase 86 Troponin I High Sens Total Protein 5.2 L Albumin 2.0 L Globulin 3.2 Albumin/Globulin Ratio 0.6 L Procalcitonin Urine Color Urine Appearance Urine pH Ur Specific [place] Urine Protein Urine Glucose (UA) Urine Ketones Urine Blood Urine Nitrite Urine Bilirubin Urine Urobilinogen Ur Leukocyte Esterase Urine WBC (Auto) Urine RBC (Auto) U Hyaline Cast (Auto) U Epithel Cells (Auto) Urine Bacteria (Auto) Ur Renal Epithelial Cell Granular Casts Urine Yeast Urine Sperm Ur Random Creatinine Ur Random Sodium Complement C3 Complement C4 Tot Complement (CH50) Adenovirus (PCR) B. pertussis DNA (PCR) B.parapertussis DNA PCR C. pneumoniae DNA (PCR) Coronavirus OC43 (PCR) Coronavirus HKU1 (PCR) Coronavirus 229E (PCR) SARS-CoV-2 (PCR) Coronavirus NL63 (PCR) Enterococc faecalis PCR Human Metapneumovir PCR Influenza Type A (PCR) Influenza Type B (PCR) M. pneumoniae (PCR) Parainfluenza 1 (PCR) Parainfluenza 2 (PCR) Parainfluenza 3 (PCR) Parainfluenza 4 (PCR) RSV (PCR) Entero/Rhino (PCR) Ele[place]/B-Vanco Res Genes Bld Cult ID Panel PCR 11/04/12/23 04/13/23 16:21 20:25 07:29 WBC 7.93 RBC 2.96 L Hgb 8.7 L Hct 27.0 L MCV 91.2 MCH 29.4 MCHC 32.2 RDW Std Deviation 52.8 H RDW Coeff of Adrian 15.9 H Plt Count 138 MPV 9.5 Immature Gran % (Auto) 0.9 Neut % (Auto) 71.2 Lymph % (Auto) 18.3 Cloud % (Auto) 6.6 Eos % (Auto) 2.6 Baso % (Auto) 0.4 Neut # (Auto) 5.65 Lymph # (Auto) 1.45 Cloud # (Auto) 0.52 Eos # (Auto) 0.21 Baso # (Auto) 0.03 Immature Gran # (Auto) 0.07 PT INR APTT PTT Ratio VBG pH VBG pCO2 VBG pO2 VBG HCO3 VBG O2 Saturation VBG Base Excess Sodium 141 Potassium 3.2 L Chloride 112 H Carbon Dioxide 22 Anion Gap 7 BUN 42 H Creatinine 3.51 H Est Cr Clr Drug Dosing 15.7 Est GFR ( Amer) 17.1 Est GFR (Non-Af Amer) 14.8 BUN/Creatinine Ratio 12.0 Glucose 140 H POC Glucose 152 H 153 H Lactate Calcium 7.5 L Phosphorus Magnesium Iron TIBC Unsaturated IBC Transferrin % Sat Ferritin Total Bilirubin 0.2 Direct Bilirubin AST 10 L ALT 5 L Alkaline Phosphatase 75 Troponin I High Sens Total Protein 4.7 L Albumin 1.8 L Globulin 2.9 Albumin/Globulin Ratio 0.6 L Procalcitonin Urine Color Urine Appearance Urine pH Ur Specific [place] Urine Protein Urine Glucose (UA) Urine Ketones Urine Blood Urine Nitrite Urine Bilirubin Urine Urobilinogen Ur Leukocyte Esterase Urine WBC (Auto) Urine RBC (Auto) U Hyaline Cast (Auto) U Epithel Cells (Auto) Urine Bacteria (Auto) Ur Renal Epithelial Cell Granular Casts Urine Yeast Urine Sperm Ur Random Creatinine Ur Random Sodium Complement C3 Complement C4 Tot Complement (CH50) Adenovirus (PCR) B. pertussis DNA (PCR) B.parapertussis DNA PCR C. pneumoniae DNA (PCR) Coronavirus OC43 (PCR) Coronavirus HKU1 (PCR) Coronavirus 229E (PCR) SARS-CoV-2 (PCR) Coronavirus NL63 (PCR) Enterococc faecalis PCR Human Metapneumovir PCR Influenza Type A (PCR) Influenza Type B (PCR) M. pneumoniae (PCR) Parainfluenza 1 (PCR) Parainfluenza 2 (PCR) Parainfluenza 3 (PCR) Parainfluenza 4 (PCR) RSV (PCR) Entero/Rhino (PCR) [place]/B-Vanco Res Genes Bld Cult ID Panel PCR 04/13/23 04/13/23 04/13/23 07:48 11:36 16:51 WBC RBC Hgb Hct MCV MCH MCHC RDW Std Deviation RDW Coeff of Adrian Plt Count MPV Immature Gran % (Auto) Neut % (Auto) Lymph % (Auto) Cloud % (Auto) Eos % (Auto) Baso % (Auto) Neut # (Auto) Lymph # (Auto) Cloud # (Auto) Eos # (Auto) Baso # (Auto) Immature Gran # (Auto) PT INR APTT PTT Ratio VBG pH VBG pCO2 VBG pO2 VBG HCO3 VBG O2 Saturation VBG Base Excess Sodium Potassium Chloride Carbon Dioxide Anion Gap BUN Creatinine Est Cr Clr Drug Dosing Est GFR ( Amer) Est GFR (Non-Af Amer) BUN/Creatinine Ratio Glucose POC Glucose 131 H 139 H 192 H Lactate Calcium Phosphorus Magnesium Iron TIBC Unsaturated IBC Transferrin % Sat Ferritin Total Bilirubin Direct Bilirubin AST ALT Alkaline Phosphatase Troponin I High Sens Total Protein Albumin Globulin Albumin/Globulin Ratio Procalcitonin Urine Color Urine Appearance Urine pH Ur Specific [place] Urine Protein Urine Glucose (UA) Urine Ketones Urine Blood Urine Nitrite Urine Bilirubin Urine Urobilinogen Ur Leukocyte Esterase Urine WBC (Auto) Urine RBC (Auto) U Hyaline Cast (Auto) U Epithel Cells (Auto) Urine Bacteria (Auto) Ur Renal Epithelial Cell Granular Casts Urine Yeast Urine Sperm Ur Random Creatinine Ur Random Sodium Complement C3 Complement C4 Tot Complement (CH50) Adenovirus (PCR) B. pertussis DNA (PCR) B.parapertussis DNA PCR C. pneumoniae DNA (PCR) Coronavirus OC43 (PCR) Coronavirus HKU1 (PCR) Coronavirus 229E (PCR) SARS-CoV-2 (PCR) Coronavirus NL63 (PCR) Enterococc faecalis PCR Human Metapneumovir PCR Influenza Type A (PCR) Influenza Type B (PCR) M. pneumoniae (PCR) Parainfluenza 1 (PCR) Parainfluenza 2 (PCR) Parainfluenza 3 (PCR) Parainfluenza 4 (PCR) RSV (PCR) Entero/Rhino (PCR) [place]/B-Vanco Res Genes Bld Cult ID Panel PCR 04/13/23 04/14/23 04/14/23 20:41 06:56 07:38 WBC 7.79 RBC 3.28 L Hgb 9.6 L Hct 30.3 L MCV 92.4 MCH 29.3 MCHC 31.7 L RDW Std Deviation 55.7 H RDW Coeff of Adrian 16.3 H Plt Count 158 MPV 9.3 L Immature Gran % (Auto) 1.0 Neut % (Auto) 70.4 Lymph % (Auto) 19.4 Cloud % (Auto) 5.8 Eos % (Auto) 2.8 Baso % (Auto) 0.6 Neut # (Auto) 5.48 Lymph # (Auto) 1.51 Cloud # (Auto) 0.45 Eos # (Auto) 0.22 Baso # (Auto) 0.05 Immature Gran # (Auto) 0.08 PT INR APTT PTT Ratio VBG pH VBG pCO2 VBG pO2 VBG HCO3 VBG O2 Saturation VBG Base Excess Sodium 142 Potassium 3.6 Chloride 114 H Carbon Dioxide 20 L Anion Gap 8 BUN 41 H Creatinine 3.36 H Est Cr Clr Drug Dosing 16.4 Est GFR ( Amer) 18.0 Est GFR (Non-Af Amer) 15.6 BUN/Creatinine Ratio 12.2 Glucose 123 H POC Glucose 130 H 139 H Lactate Calcium 7.7 L Phosphorus 4.9 Magnesium 1.8 Iron TIBC Unsaturated IBC Transferrin % Sat Ferritin Total Bilirubin 0.2 Direct Bilirubin AST 12 L ALT 4 L Alkaline Phosphatase 77 Troponin I High Sens Total Protein 5.1 L Albumin 1.9 L Globulin 3.2 Albumin/Globulin Ratio 0.6 L Procalcitonin Urine Color Urine Appearance Urine pH Ur Specific [place] Urine Protein Urine Glucose (UA) Urine Ketones Urine Blood Urine Nitrite Urine Bilirubin Urine Urobilinogen Ur Leukocyte Esterase Urine WBC (Auto) Urine RBC (Auto) U Hyaline Cast (Auto) U Epithel Cells (Auto) Urine Bacteria (Auto) Ur Renal Epithelial Cell Granular Casts Urine Yeast Urine Sperm Ur Random Creatinine Ur Random Sodium Complement C3 Complement C4 Tot Complement (CH50) Adenovirus (PCR) B. pertussis DNA (PCR) B.parapertussis DNA PCR C. pneumoniae DNA (PCR) Coronavirus OC43 (PCR) Coronavirus HKU1 (PCR) Coronavirus 229E (PCR) SARS-CoV-2 (PCR) Coronavirus NL63 (PCR) Enterococc faecalis PCR Human Metapneumovir PCR Influenza Type A (PCR) Influenza Type B (PCR) M. pneumoniae (PCR) Parainfluenza 1 (PCR) Parainfluenza 2 (PCR) Parainfluenza 3 (PCR) Parainfluenza 4 (PCR) RSV (PCR) Entero/Rhino (PCR) [place]/B-Vanco Res Genes Bld Cult ID Panel PCR 04/14/23 04/14/23 04/14/23 11:27 16:33 20:42 WBC RBC Hgb Hct MCV MCH MCHC RDW Std Deviation RDW Coeff of Adrian Plt Count MPV Immature Gran % (Auto) Neut % (Auto) Lymph % (Auto) Cloud % (Auto) Eos % (Auto) Baso % (Auto) Neut # (Auto) Lymph # (Auto) Cloud # (Auto) Eos # (Auto) Baso # (Auto) Immature Gran # (Auto) PT INR APTT PTT Ratio VBG pH VBG pCO2 VBG pO2 VBG HCO3 VBG O2 Saturation VBG Base Excess Sodium Potassium Chloride Carbon Dioxide Anion Gap BUN Creatinine Est Cr Clr Drug Dosing Est GFR ( Amer) Est GFR (Non-Af Amer) BUN/Creatinine Ratio Glucose POC Glucose 131 H 128 H 113 H Lactate Calcium Phosphorus Magnesium Iron TIBC Unsaturated IBC Transferrin % Sat Ferritin Total Bilirubin Direct Bilirubin AST ALT Alkaline Phosphatase Troponin I High Sens Total Protein Albumin Globulin Albumin/Globulin Ratio Procalcitonin Urine Color Urine Appearance Urine pH Ur Specific [place] Urine Protein Urine Glucose (UA) Urine Ketones Urine Blood Urine Nitrite Urine Bilirubin Urine Urobilinogen Ur Leukocyte Esterase Urine WBC (Auto) Urine RBC (Auto) U Hyaline Cast (Auto) U Epithel Cells (Auto) Urine Bacteria (Auto) Ur Renal Epithelial Cell Granular Casts Urine Yeast Urine Sperm Ur Random Creatinine Ur Random Sodium Complement C3 Complement C4 Tot Complement (CH50) Adenovirus (PCR) B. pertussis DNA (PCR) B.parapertussis DNA PCR C. pneumoniae DNA (PCR) Coronavirus OC43 (PCR) Coronavirus HKU1 (PCR) Coronavirus 229E (PCR) SARS-CoV-2 (PCR) Coronavirus NL63 (PCR) Enterococc faecalis PCR Human Metapneumovir PCR Influenza Type A (PCR) Influenza Type B (PCR) M. pneumoniae (PCR) Parainfluenza 1 (PCR) Parainfluenza 2 (PCR) Parainfluenza 3 (PCR) Parainfluenza 4 (PCR) RSV (PCR) Entero/Rhino (PCR) [place]/B-Vanco Res Genes Bld Cult ID Panel PCR 04/15/23 04/15/23 04/15/23 06:00 07:57 11:56 WBC 6.84 RBC 3.44 L Hgb 10.0 L Hct 31.8 L MCV 92.4 MCH 29.1 MCHC 31.4 L RDW Std Deviation 56.8 H RDW Coeff of Adrian 16.6 H Plt Count 167 MPV 9.6 Immature Gran % (Auto) 1.8 Neut % (Auto) 66.8 Lymph % (Auto) 21.1 Cloud % (Auto) 6.0 Eos % (Auto) 3.7 Baso % (Auto) 0.6 Neut # (Auto) 4.58 Lymph # (Auto) 1.44 Cloud # (Auto) 0.41 Eos # (Auto) 0.25 Baso # (Auto) 0.04 Immature Gran # (Auto) 0.12 PT INR APTT PTT Ratio VBG pH VBG pCO2 VBG pO2 VBG HCO3 VBG O2 Saturation VBG Base Excess Sodium 145 Potassium 3.5 Chloride 114 H Carbon Dioxide 21 Anion Gap 10 BUN 41 H Creatinine 3.50 H Est Cr Clr Drug Dosing 15.8 Est GFR ( Amer) 17.2 Est GFR (Non-Af Amer) 14.8 BUN/Creatinine Ratio 11.7 Glucose 129 H POC Glucose 124 H 162 H Lactate Calcium 7.7 L Phosphorus 5.3 H Magnesium 1.9 Iron TIBC Unsaturated IBC Transferrin % Sat Ferritin Total Bilirubin 0.2 Direct Bilirubin AST 14 ALT 5 L Alkaline Phosphatase 86 Troponin I High Sens Total Protein 5.2 L Albumin 1.9 L Globulin 3.3 Albumin/Globulin Ratio 0.6 L Procalcitonin Urine Color Urine Appearance Urine pH Ur Specific [place] Urine Protein Urine Glucose (UA) Urine Ketones Urine Blood Urine Nitrite Urine Bilirubin Urine Urobilinogen Ur Leukocyte Esterase Urine WBC (Auto) Urine RBC (Auto) U Hyaline Cast (Auto) U Epithel Cells (Auto) Urine Bacteria (Auto) Ur Renal Epithelial Cell Granular Casts Urine Yeast Urine Sperm Ur Random Creatinine Ur Random Sodium Complement C3 Complement C4 Tot Complement (CH50) Adenovirus (PCR) B. pertussis DNA (PCR) B.parapertussis DNA PCR C. pneumoniae DNA (PCR) Coronavirus OC43 (PCR) Coronavirus HKU1 (PCR) Coronavirus 229E (PCR) SARS-CoV-2 (PCR) Coronavirus NL63 (PCR) Enterococc faecalis PCR Human Metapneumovir PCR Influenza Type A (PCR) Influenza Type B (PCR) M. pneumoniae (PCR) Parainfluenza 1 (PCR) Parainfluenza 2 (PCR) Parainfluenza 3 (PCR) Parainfluenza 4 (PCR) RSV (PCR) Entero/Rhino (PCR) [place]/B-Vanco Res Genes Bld Cult ID Panel PCR 04/15/23 04/15/23 04/16/23 16:31 20:51 05:49 WBC RBC Hgb Hct MCV MCH MCHC RDW Std Deviation RDW Coeff of Adrian Plt Count MPV Immature Gran % (Auto) Neut % (Auto) Lymph % (Auto) Cloud % (Auto) Eos % (Auto) Baso % (Auto) Neut # (Auto) Lymph # (Auto) Cloud # (Auto) Eos # (Auto) Baso # (Auto) Immature Gran # (Auto) PT INR APTT PTT Ratio VBG pH VBG pCO2 VBG pO2 VBG HCO3 VBG O2 Saturation VBG Base Excess Sodium 142 Potassium 3.5 Chloride 114 H Carbon Dioxide 22 Anion Gap 6 BUN 44 H Creatinine 3.86 H D Est Cr Clr Drug Dosing 14.3 Est GFR ( Amer) 15.3 Est GFR (Non-Af Amer) 13.2 BUN/Creatinine Ratio 11.4 Glucose 122 H POC Glucose 182 H 175 H Lactate Calcium 7.4 L Phosphorus 5.5 H Magnesium 1.9 Iron TIBC Unsaturated IBC Transferrin % Sat Ferritin Total Bilirubin 0.2 Direct Bilirubin AST 14 ALT 5 L Alkaline Phosphatase 76 Troponin I High Sens Total Protein 4.7 L Albumin 1.8 L Globulin 2.9 Albumin/Globulin Ratio 0.6 L Procalcitonin Urine Color Urine Appearance Urine pH Ur Specific Hart[place] Urine Protein Urine Glucose (UA) Urine Ketones Urine Blood Urine Nitrite Urine Bilirubin Urine Urobilinogen Ur Leukocyte Esterase Urine WBC (Auto) Urine RBC (Auto) U Hyaline Cast (Auto) U Epithel Cells (Auto) Urine Bacteria (Auto) Ur Renal Epithelial Cell Granular Casts Urine Yeast Urine Sperm Ur Random Creatinine Ur Random Sodium Complement C3 Complement C4 Tot Complement (CH50) Adenovirus (PCR) B. pertussis DNA (PCR) B.parapertussis DNA PCR C. pneumoniae DNA (PCR) Coronavirus OC43 (PCR) Coronavirus HKU1 (PCR) Coronavirus 229E (PCR) SARS-CoV-2 (PCR) Coronavirus NL63 (PCR) Enterococc faecalis PCR Human Metapneumovir PCR Influenza Type A (PCR) Influenza Type B (PCR) M. pneumoniae (PCR) Parainfluenza 1 (PCR) Parainfluenza 2 (PCR) Parainfluenza 3 (PCR) Parainfluenza 4 (PCR) RSV (PCR) Entero/Rhino (PCR) Eleno/B-Vanco Res Genes Bld Cult ID Panel PCR 04/16/23 04/16/23 04/16/23 07:43 11:41 16:40 WBC RBC Hgb Hct MCV MCH MCHC RDW Std Deviation RDW Coeff of Adrian Plt Count MPV Immature Gran % (Auto) Neut % (Auto) Lymph % (Auto) Cloud % (Auto) Eos % (Auto) Baso % (Auto) Neut # (Auto) Lymph # (Auto) Cloud # (Auto) Eos # (Auto) Baso # (Auto) Immature Gran # (Auto) PT INR APTT PTT Ratio VBG pH VBG pCO2 VBG pO2 VBG HCO3 VBG O2 Saturation VBG Base Excess Sodium Potassium Chloride Carbon Dioxide Anion Gap BUN Creatinine Est Cr Clr Drug Dosing Est GFR ( Amer) Est GFR (Non-Af Amer) BUN/Creatinine Ratio Glucose POC Glucose 122 H 142 H 164 H Lactate Calcium Phosphorus Magnesium Iron TIBC Unsaturated IBC Transferrin % Sat Ferritin Total Bilirubin Direct Bilirubin AST ALT Alkaline Phosphatase Troponin I High Sens Total Protein Albumin Globulin Albumin/Globulin Ratio Procalcitonin Urine Color Urine Appearance Urine pH Ur Specific [place] Urine Protein Urine Glucose (UA) Urine Ketones Urine Blood Urine Nitrite Urine Bilirubin Urine Urobilinogen Ur Leukocyte Esterase Urine WBC (Auto) Urine RBC (Auto) U Hyaline Cast (Auto) U Epithel Cells (Auto) Urine Bacteria (Auto) Ur Renal Epithelial Cell Granular Casts Urine Yeast Urine Sperm Ur Random Creatinine Ur Random Sodium Complement C3 Complement C4 Tot Complement (CH50) Adenovirus (PCR) B. pertussis DNA (PCR) B.parapertussis DNA PCR C. pneumoniae DNA (PCR) Coronavirus OC43 (PCR) Coronavirus HKU1 (PCR) Coronavirus 229E (PCR) SARS-CoV-2 (PCR) Coronavirus NL63 (PCR) Enterococc faecalis PCR Human Metapneumovir PCR Influenza Type A (PCR) Influenza Type B (PCR) M. pneumoniae (PCR) Parainfluenza 1 (PCR) Parainfluenza 2 (PCR) Parainfluenza 3 (PCR) Parainfluenza 4 (PCR) RSV (PCR) Entero/Rhino (PCR) Eleno/B-Vanco Res Genes Bld Cult ID Panel PCR 04/16/23 04/17/23 04/17/23 20:41 06:59 07:35 WBC 5.94 RBC 3.46 L Hgb 10.1 L Hct 31.3 L MCV 90.5 MCH 29.2 MCHC 32.3 RDW Std Deviation 52.6 H RDW Coeff of Adrian 16.0 H Plt Count 156 MPV 9.5 Immature Gran % (Auto) Neut % (Auto) Lymph % (Auto) Cloud % (Auto) Eos % (Auto) Baso % (Auto) Neut # (Auto) Lymph # (Auto) Cloud # (Auto) Eos # (Auto) Baso # (Auto) Immature Gran # (Auto) PT INR APTT PTT Ratio VBG pH VBG pCO2 VBG pO2 VBG HCO3 VBG O2 Saturation VBG Base Excess Sodium 143 Potassium 3.6 Chloride 114 H Carbon Dioxide 20 L Anion Gap 9 BUN 47 H Creatinine 4.40 H D Est Cr Clr Drug Dosing 11.1 Est GFR ( Amer) 13.0 Est GFR (Non-Af Amer) 11.2 BUN/Creatinine Ratio 10.7 Glucose 131 H POC Glucose 134 H 125 H Lactate Calcium 7.6 L Phosphorus Magnesium Iron TIBC Unsaturated IBC Transferrin % Sat Ferritin Total Bilirubin 0.2 Direct Bilirubin AST 14 ALT 6 L Alkaline Phosphatase 82 Troponin I High Sens Total Protein 5.2 L Albumin 1.9 L Globulin 3.3 Albumin/Globulin Ratio 0.6 L Procalcitonin Urine Color Urine Appearance Urine pH Ur Specific [place] Urine Protein Urine Glucose (UA) Urine Ketones Urine Blood Urine Nitrite Urine Bilirubin Urine Urobilinogen Ur Leukocyte Esterase Urine WBC (Auto) Urine RBC (Auto) U Hyaline Cast (Auto) U Epithel Cells (Auto) Urine Bacteria (Auto) Ur Renal Epithelial Cell Granular Casts Urine Yeast Urine Sperm Ur Random Creatinine Ur Random Sodium Complement C3 Complement C4 Tot Complement (CH50) Adenovirus (PCR) B. pertussis DNA (PCR) B.parapertussis DNA PCR C. pneumoniae DNA (PCR) Coronavirus OC43 (PCR) Coronavirus HKU1 (PCR) Coronavirus 229E (PCR) SARS-CoV-2 (PCR) Coronavirus NL63 (PCR) Enterococc faecalis PCR Human Metapneumovir PCR Influenza Type A (PCR) Influenza Type B (PCR) M. pneumoniae (PCR) Parainfluenza 1 (PCR) Parainfluenza 2 (PCR) Parainfluenza 3 (PCR) Parainfluenza 4 (PCR) RSV (PCR) Entero/Rhino (PCR) Eleno/B-Vanco Res Genes Bld Cult ID Panel PCR 04/17/23 11:35 WBC RBC Hgb Hct MCV MCH MCHC RDW Std Deviation RDW Coeff of Adrian Plt Count MPV Immature Gran % (Auto) Neut % (Auto) Lymph % (Auto) Cloud % (Auto) Eos % (Auto) Baso % (Auto) Neut # (Auto) Lymph # (Auto) Cloud # (Auto) Eos # (Auto) Baso # (Auto) Immature Gran # (Auto) PT INR APTT PTT Ratio VBG pH VBG pCO2 VBG pO2 VBG HCO3 VBG O2 Saturation VBG Base Excess Sodium Potassium Chloride Carbon Dioxide Anion Gap BUN Creatinine Est Cr Clr Drug Dosing Est GFR ( Amer) Est GFR (Non-Af Amer) BUN/Creatinine Ratio Glucose POC Glucose 139 H Lactate Calcium Phosphorus Magnesium Iron TIBC Unsaturated IBC Transferrin % Sat Ferritin Total Bilirubin Direct Bilirubin AST ALT Alkaline Phosphatase Troponin I High Sens Total Protein Albumin Globulin Albumin/Globulin Ratio Procalcitonin Urine Color Urine Appearance Urine pH Ur Specific [place] Urine Protein Urine Glucose (UA) Urine Ketones Urine Blood Urine Nitrite Urine Bilirubin Urine Urobilinogen Ur Leukocyte Esterase Urine WBC (Auto) Urine RBC (Auto) U Hyaline Cast (Auto) U Epithel Cells (Auto) Urine Bacteria (Auto) Ur Renal Epithelial Cell Granular Casts Urine Yeast Urine Sperm Ur Random Creatinine Ur Random Sodium Complement C3 Complement C4 Tot Complement (CH50) Adenovirus (PCR) B. pertussis DNA (PCR) B.parapertussis DNA PCR C. pneumoniae DNA (PCR) Coronavirus OC43 (PCR) Coronavirus HKU1 (PCR) Coronavirus 229E (PCR) SARS-CoV-2 (PCR) Coronavirus NL63 (PCR) Enterococc faecalis PCR Human Metapneumovir PCR Influenza Type A (PCR) Influenza Type B (PCR) M. pneumoniae (PCR) Parainfluenza 1 (PCR) Parainfluenza 2 (PCR) Parainfluenza 3 (PCR) Parainfluenza 4 (PCR) RSV (PCR) Entero/Rhino (PCR) Eleno/B-Vanco Res Genes Bld Cult ID Panel PCR Chest X-Ray 03/18/23 19:49 XR chest 1V portable CLINICAL HISTORY: Sepsis TECHNIQUE: Single frontal radiograph of the chest was obtained. Comparison: Comparison is made to chest radiograph 01/20/2023 FINDINGS: Stable appearance of median sternotomy wires including fractured superior wire. Calcified aortic knob is seen. The lungs are clear. No evidence of pleural effusion or pneumothorax. IMPRESSION: No acute abnormalities and in particular no radiographic evidence of pneumonia. ACT 112: Negative or not required by law. Electronically signed by: Dano West M.D. 03/19/2023 9:30 AM Forearm X-Ray 03/18/23 20:03 XR forearm LT 2V CLINICAL HISTORY: fall TECHNIQUE: 2 views of the left forearm were obtained. Comparison: None available at the time of this dictation. FINDINGS: There is no evidence of acute fracture or dislocation. Joint spaces are well- preserved. Vascular calcifications are noted. IMPRESSION: Degenerative changes without evidence of acute injury. ACT 112: Negative or not required by law. Electronically signed by: Dano West M.D. 03/19/2023 9:26 AM Shoulder X-Ray 03/18/23 20:03 XR shoulder LT min 2V routine, XR shoulder RT min 2V routine CLINICAL HISTORY: fall TECHNIQUE: 3 views of the bilateral shoulders were obtained. Comparison: None available at the time of this dictation. FINDINGS: There is no evidence of an acute fracture. Degenerative changes are seen in the glenohumeral joint. The overlying soft tissues are unremarkable. The visualized portions of the lungs are clear. IMPRESSION: No evidence of acute osseous injury. ACT 112: Negative or not required by law. Electronically signed by: Dano West M.D. 03/19/2023 9:26 AM Shoulder X-Ray 03/18/23 20:03 XR shoulder LT min 2V routine, XR shoulder RT min 2V routine CLINICAL HISTORY: fall TECHNIQUE: 3 views of the bilateral shoulders were obtained. Comparison: None available at the time of this dictation. FINDINGS: There is no evidence of an acute fracture. Degenerative changes are seen in the glenohumeral joint. The overlying soft tissues are unremarkable. The visualized portions of the lungs are clear. IMPRESSION: No evidence of acute osseous injury. ACT 112: Negative or not required by law. Electronically signed by: Dano West M.D. 03/19/2023 9:26 AM Abdomen/Pelvis CT 03/18/23 23:02 Exam(s): CT ABDOMEN + PELVIS Without Contrast EXAM: CT Abdomen and Pelvis Without Intravenous Contrast CLINICAL HISTORY: Reason for exam: INFECTION. TECHNIQUE: Axial computed tomography images of the abdomen and pelvis without intravenous contrast. CTDI is 27.36 mGy and DLP is 1321.05 mGy-cm. Automated exposure control was utilized for the study. A dose lowering technique was utilized adhering to the principles of ALARA. COMPARISON: No relevant prior studies available. FINDINGS: Lung bases: Atelectasis at the lung bases. Heart: Cardiomegaly. ABDOMEN: Liver: Unremarkable. Gallbladder and bile ducts: Cholecystectomy. No ductal dilation. Pancreas: Unremarkable. No ductal dilation. Spleen: Unremarkable. No splenomegaly. Adrenals: Unremarkable. No mass. Kidneys and ureters: No hydronephrosis or nephrolithiasis. Wall thickening of the urinary bladder measuring up to 7 mm, concerning for UTI. Urinalysis recommended. Stomach and bowel: Diverticulosis, without acute diverticulitis. No small bowel obstruction. No free intraperitoneal air. PELVIS: Appendix: No findings to suggest acute appendicitis. Bladder: See above. Reproductive: Unremarkable as visualized. ABDOMEN and PELVIS: Intraperitoneal space: Unremarkable. No free air. No significant fluid collection. Bones/joints: Degenerative changes of the spine. Multilevel posterior lumbar fusion and laminectomies. No acute fracture. No dislocation. Soft tissues: Unremarkable. Vasculature: Atherosclerotic changes of the aorta. No abdominal aortic aneurysm. Lymph nodes: Unremarkable. No enlarged lymph nodes. IMPRESSION: 1. Cholecystectomy. 2. Wall thickening of the urinary bladder measuring up to 7 mm, concerning for UTI. Urinalysis recommended. 3. Multilevel posterior lumbar fusion and laminectomies. 4. Diverticulosis, without acute diverticulitis. No small bowel obstruction. No free intraperitoneal air. Electronically signed by: Clemente Flores MD 03/19/23 00:[address] 03/19/23 00:44 CR Exam(s): CT HEAD Without Contrast EXAM: CT Head Without Intravenous Contrast CLINICAL HISTORY: Reason for exam: r/o bleed. TECHNIQUE: Axial computed tomography images of the head/brain without intravenous contrast. CTDI is 36.67 mGy and DLP is 625.8 mGy-cm. Automated exposure control was utilized for the study. A dose lowering technique was utilized adhering to the principles of ALARA. COMPARISON: Comparison made to prior head CT from January 20, 2023. FINDINGS: Brain: Unremarkable. No hemorrhage. No significant white matter disease. No edema. Ventricles: Unremarkable. No ventriculomegaly. Bones/joints: Remote left lamina papyracea fracture deformity. No acute fracture. Soft tissues: Bilateral lens replacements. Sinuses: Unremarkable as visualized. No acute sinusitis. Mastoid air cells: Unremarkable as visualized. No mastoid effusion. IMPRESSION: No evidence of acute intracranial pathology. Communications: Call Doctor Stroke Electronically signed by: Shobha Coffman MD 03/19/23 01:51 AM Ankle X-Ray 03/23/23 10:42 XR ankle RT 2V HISTORY: 87 years-old Male evaluate septic arthritis chronic right ankle pain COMPARISON: Right foot radiograph 12/05/2021 TECHNIQUE: 2 views of the right ankle FINDINGS: Arterial calcifications. Moderate sized plantar calcaneal enthesophyte. 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 No acute fracture, dislocation or osteochondral defect identified. Mild to moderate soft tissue swelling. IMPRESSION: 1. No acute fracture, dislocation or acute osseous erosion. 2. Mild to moderate osteoarthritis. ACT 112: Negative or not required by law. The above report was generated using voice recognition software. It may contain grammatical, syntax or spelling errors. Electronically signed by: Pj Fernández M.D. 03/23/2023 11:53 AM Knee X-Ray 03/23/23 10:42 XR knee LT 1 or 2V routine CLINICAL HISTORY: evaluate septic arthritis TECHNIQUE: 2 views of the left knee were obtained. Comparison: None available at the time of this dictation. FINDINGS: There is no evidence of an acute fracture. Patient is status post total knee arthroplasty. No perihardware lucency or hardware fracture is seen. No joint effusion is seen. Vascular calcifications are noted. IMPRESSION: No significant joint effusion is seen. No bony abnormality in this post arthroplasty patient. ACT 112: Negative or not required by law. Electronically signed by: Dano West M.D. 03/23/2023 11:41 AM Renal Ultrasound 03/25/23 12:35 RENAL ULTRASOUND HISTORY: Acute kidney injury [facility]I COMPARISON: CT 03/18/2023 FINDINGS: Right kidney: 12.3 x 5.7 x 6.1 cm. No hydronephrosis. Diffuse cortical thinning. Left kidney: 12.9 x 6.4 x 5.5 cm. No hydronephrosis. Diffuse cortical thinning. 2.2 cm cyst of the inferior pole. Bladder: Wall thickening and trabeculation with partial distention. The bilateral ureteral jets were identified. Trace left pleural effusion. The spleen measures 13 cm. IMPRESSION: 1. Cortical thinning of the kidneys without hydronephrosis. 2. Unchanged urinary bladder wall thickening with reticulation. Correlate with urinalysis. ACT 112: Negative or not required by law. Electronically signed by: Pj Fernández M.D. 03/25/2023 5:55 PM Venous Doppler Study 03/25/23 15:39 BILATERAL LOWER EXTREMITY VENOUS DOPPLER HISTORY: Acute pain and swelling of the right lower extremity RLE Swelling COMPARISON STUDY: None. FINDINGS: There is normal compressibility, flow, and augmentation within the bilateral lower extremity deep venous systems. 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 Subcutaneous edema. IMPRESSION: No acute DVT within the right or left lower extremity. ACT 112: Negative or not required by law. Electronically signed by: Pj Fernández M.D. 03/25/2023 5:49 PM Foot X-Ray 03/27/23 14:41 XR foot RT 2V CLINICAL HISTORY: R 2nd digit pain TECHNIQUE: 3 views of the right foot were obtained. Comparison: Comparison is made to right foot radiographs 12/05/2021 and MRI right foot 12/15/2021 FINDINGS: Demineralization is seen at the second digit proximal interphalangeal joint. No focal erosion is definitely seen within the limitations of technique. No frac ture is seen. Degenerative changes are seen throughout the foot. Soft tissue swelling is seen about the foot. Vascular calcifications are seen. IMPRESSION: Degenerative changes are seen with focal demineralization at the second digit proximal interphalangeal joint. If there is concern for osteomyelitis, MRI can be performed as a more sensitive modality. There is no radiographic evidence of acute fracture. ACT 112: Negative or not required by law. Electronically signed by: Dano West M.D. 03/27/2023 7:44 PM Chest X-Ray 04/04/23 11:08 XR chest 1V portable HISTORY: Left PICC line placement COMPARISON: Chest 03/18/2023. FINDINGS: Interval placement of a left-sided PICC which terminates in the expected location of the SVC. No pneumothorax. No pleural effusions. The cardiac silhouette remains mildly enlarged. Mild interstitial thickening persists. No new focal lung consolidations to suggest a pneumonia. There are poststernotomy changes. Degenerative changes within the shoulders. IMPRESSION: 1. The left PICC terminates in the SVC. 2. Cardiomegaly and mild interstitial thickening persists. ACT 112: Negative or not required by law. Electronically signed by: Otoniel Olivarez M.D. 04/04/2023 12:18 PM 03/18/23 23:02 CT abd pelvis wo con Stat 03/19/23 00:44 CT head/brain wo con Stat 03/25/23 12:35 US Renal Bladder [US renal/blad retro comp] Routine 03/25/23 15:39 US venous doppler LE Routine Hospital Course (1) Hypotension: (2) Elevated troponin I level: (3) Recurrent bacteremia: (4) Anxiety: (5) Anemia of chronic disease: (6) Chronic kidney disease, stage 4 (severe): (7) Acute kidney injury superimposed on CKD: (8) Moderate calcific aortic stenosis: (9) Peripheral vascular disease: (10) Lower extremity edema: (11) Benign prostatic hyperplasia with urinary obstruction: (12) COPD (chronic obstructive pulmonary disease): (13) Hypothyroidism: (14) Hypertension: (15) Dyslipidemia: (16) Paroxysmal atrial fibrillation: (17) Vitamin D deficiency: (18) CAD (coronary artery disease): (19) GERD (gastroesophageal reflux disease): (20) CHF (congestive heart failure): (21) Diabetes: (22) Hypokalemia: Discharge Plan Discharge Items Patient Disposition: Transfer [facility] Reason For Visit: HYPOTENSION Discharge Diagnosis: 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 CDK stage 4 Activity: Per Instructions section Non-emergency contact: Primary Care Provider Call non-emergency contact if: you have any medication questions Follow-up/Referrals: Cory Nunez, [Primary Care Provider] - Diet: Carb Consistent or DM2 Addtl Attending Provider Instructions: 87 yo male with PMHx of CKD Stage 4 (previous admission with [facility]I requiring temporary dialysis), DVT, T2DM insulin dependent, HTN, hypothyroidism, AFib, CAD, BPH, GERD, recurrent bacteremia, aortic stenosis, anxiety, and CHF who presents with unwitnessed fall with concomitant bowel/bladder incontinence and associated hypotension. POLST form was discussed with pt and . Copy on the chart. Recurrent E.Faecalis Bacteremia -Patient with history of E faecalis bacteremia in past, blood cx + for Enterococcus Faecalis with repeat cx on 03/22 and 03/25 negative, -TTE negative for vegetations, ID noting foot xray negative for osteo of the 2nd digit; could consider MRI; pt and decline at this time -Id consulted during stay, recommended longer treatment of ABX: -Ampicillin until 05/03/2023, -Patient would benefit for outpatient ID, may need abx suppressive therapy -Repeat Cx 1-2 weeks after finishing ABxs Unstageable pressure injury on coccyx -Wound care and daily change is needed to prevent progression as well change position on bed every couple of hours. -waffle boots -daily change and as needed - Aquacel silver dressing allergy, avoid JUDI on CKD stage 4 | Suspected ATN | hypokalemia | hypocalcemia -New baseline 3~ peak this admission 5.92 -Elevation in creatinine prerenal, likely secondary to dehydration -pt decline dialysis during admission -Hypokalemia resolved Chronic HFpEF | Aortic stenosis | Peripheral edema | CAD/PVD/HLD | Afib -Resumed bumex 1mgs q48hrs. -cont. metoprolol; Eliquis -cont. statin -cont. ASA, statin DM2 -Lantus + SSI Diabetic neuropathy -cont. gabapentin COPD -cont. home inhalers Anxiety -cont. clonazepam BPH -cont. finasteride, tamsulosin Pending Studies at Discharge: No Stand-Alone Forms: My [facility] Skilled Items Patient informed of condition?: Yes DNR: Yes Discharge Level of Care: Skilled Communicable Disease: No Discharge Prognosis: Stable Lines: PICC Urinary Catheter: No Medications and DC Order Prescriptions: New Eliquis 2.5 mg Tablet 2.5 mg PO BID 30 Days Qty: 60 0RF ampicillin sodium 2 gram recon soln 2 g IV Q12H 16 Days Continued levothyroxine 88 mcg tablet 75 mcg PO DAILYBB Qty: 90 albuterol sulfate 90 mcg/actuation HFA aerosol inhaler 2 puffs inhalation Q6H PRN (Reason: shortness of breath or wheezing) potassium chloride 20 mEq tablet extended release 20 meq PO BID Rx Instructions: TAKE THIS MED WHEN TAKING BUMETANIDE. DO NOT TAKE THIS MED IF NOT TAKING BUMETANIDE. finasteride 5 mg tablet 5 mg PO HS insulin glargine [Lantus Solostar U-100 Insulin] 100 unit/mL (3 mL) Insulin Pen 26 unit SUBCUT BID insulin aspart U-100 [Novolog U-100 Insulin aspart] 100 unit/mL solution 14 unit subcut TIDWMEAL Rx Instructions: - Goal BSG range; 110-140 - Correction factor 45mg/dL/unit - BSGs ACHS gabapentin 100 mg Capsule See Rx Instructions .ROUTE .COMPLEX Rx Instructions: 100 mg orally; TAKE 100 MG QAM, THEN 300 MG QPM. pantoprazole 20 mg tablet,delayed release (DR/EC) 20 mg PO BID aspirin 81 mg Tablet,Delayed Release (Dr/Ec) 81 mg PO DAILY clonazepam 1 mg tablet 1 mg PO BID acetaminophen [Tylenol Extra Strength] 500 mg Tablet 1,000 mg PO Q6H PRN (Reason: PAIN/FEVER) fluticasone propion-salmeterol 500-50 mcg/dose Blister With Device 1 inh INHALATION BID metoprolol tartrate 50 mg Tablet 25 mg PO BID multivitamin with minerals Tablet 1 tab PO DAILY rosuvastatin 20 mg Tablet 20 mg PO HS PreserVision AREDS 2,148 mcg-113 mg-45 mg-17.4mg Tablet 1 tab PO DAILY tiotropium bromide 2.5 mcg/actuation Mist 2 puff INHALATION DAILY tamsulosin [Flomax] 0.4 mg Capsule 0.8 mg PO HS loratadine [Claritin] 10 mg Tablet 10 mg PO DAILY PRN (Reason: Congestion) calcium citrate-vitamin D3 [Calcium Citrate + D] 315 mg-5 mcg (200 unit) Tablet 2 tab PO DAILY Discontinued Eliquis 5 mg Tablet 2.5 mg PO Q12H Discharge Orders: Discharge Order (Routine); Ordered 04/17/23 Ordered By: Bethanie Hernández Admission Data Admit Date/Time: 03/19/23 00:15 Attending Provider: Alexandru Harrell Admit Provider: Bon Brown Primary Care Provider: Cory Nunez Other Providers: [facility]; Arlen Gaitan; Alisa Flowers; Patrick Michaels; Rianna Horowitz; Lauren Berman; Latasha Franco; Sanam Manzano; Tess Dutton; Constantino Hanson; Ann Conroy; Joycelyn Nunez; Jese Gaitan; Je Zavaleta; Priscilla Garcia; Zoila Espinoza; Jaziel Nunez; [place],; Alexandru Harrell; [facility]; [place]; [facility]; Cyndi Grimm"
--- NOTE | 2023-04-17 14:27 | Hospitalist Progress Note ---
"Date of Service April 17, 2023 Assessment & Plan (1) Hypotension: (2) Elevated troponin I level: (3) Recurrent bacteremia: (4) Anxiety: (5) Anemia of chronic disease: (6) Chronic kidney disease, stage 4 (severe): (7) Acute kidney injury superimposed on CKD: (8) Moderate calcific aortic stenosis: (9) Peripheral vascular disease: (10) Lower extremity edema: (11) Benign prostatic hyperplasia with urinary obstruction: (12) COPD (chronic obstructive pulmonary disease): (13) Hypothyroidism: (14) Hypertension: (15) Dyslipidemia: (16) Paroxysmal atrial fibrillation: (17) Vitamin D deficiency: (18) CAD (coronary artery disease): (19) GERD (gastroesophageal reflux disease): (20) CHF (congestive heart failure): (21) Diabetes: (22) Hypokalemia: Plan 87 yo male with PMHx of CKD Stage 4 (previous admission with JUDI requiring temporary dialysis), DVT, T2DM insulin dependent, HTN, hypothyroidism, AFib, CAD, BPH, GERD, recurrent bacteremia, aortic stenosis, anxiety, and CHF who presents with unwitnessed fall with concomitant bowel/bladder incontinence and associated hypotension. 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 - Palliative care consulted, considering placement now. She is aware of inability of taking care of him -Patient had a bed on [facility] for today, but patient is Covid +, Case management following Unstageable pressure injury on coccyx -Wound care on case -waffle boots -daily change and as needed -Patient with allergy to Silver dressings JUDI on CKD stage 4 | Suspected ATN | hypokalemia | hypocalcemia -Cr baseline ~ 2, peak this admission 5.92, Cr 4.40 -Elevation in creatinine prerenal, likely secondary to dehydration -pt does not want dialysis at this time -Hypokalemia resolved Hold Bumex BMP AM Chronic HFpEF | Aortic stenosis | Peripheral edema | CAD/PVD/HLD | Afib Hold bumex 1mgs q48hrs. -cont. metoprolol; Eliquis -cont. statin -cont. ASA, statin DM2 -Lantus + SSI Diabetic neuropathy -cont. gabapentin COPD -cont. home inhalers Anxiety -cont. clonazepam BPH -cont. finasteride, tamsulosin Code: DNR/DNI DVT ppx: Eliquis FEN/GI: Regular diet Dispo - -PT/OT recommending SNF -->[facility], but Covid + Admission and Anticipated Discharge Date Admission Date: March 19, 2023 Supervising Physician Co-Signing Physician Notes I personally examined the patient and verified all aguayo points of history and exam, discussed case, and agree with decision making with Dr Brandon Hernández for [facility] -then swabbed (+) for covid despite no overt sx. likely tomorrow beryl noted nad heent nc at mmm breathing unlabored no accessory msucles good effort skin no rashes no pallor or icterus recurrent enterococcus bacteremia - prolonged course ampicillin, anticipate chronic suppressive Rx then/outpt ID follow up goals of care still in flux - at this point more of a subacute rehab goal acutely otherwise as above Subjective 87 yo male with PMHx of CKD Stage 4 (previous admission with JUDI requiring temporary dialysis), DVT, [id number] dependent, HTN, hypothyroidism, afib, CAD, BPH, GERD, recurrent bacteremia, aortic stenosis, anxiety, and CHF who presents with unwitnessed fall with concomitant bowel/bladder incontinence and associated hypotension. Today, pt is alert, w/o distress. He states he feels good today. Very agreeable and cooperative with exam. Patient had a bed on [facility] but patient covid + Review of Systems Review of Systems: as per HPI Physical Exam Physical Exam: Constitutional: WD/WN, vitals as a july Respiratory: normal respiratory effort, lungs isai ar to auscultation Cardiovascular: Rate/Rhythm: regul ar rate and regula r rhythm Extremit ies: + edema Gastrointestinal ( Abdomen): normal bowel sound s, soft, nontender , no hepatosplenom egaly Psychiatric: A+Ox3, euthymic af fect Results & Data Results & Data Vital Signs (Past 12 Hours) Vital Signs Temp Pulse Resp BP BP Pulse Ox O2 Del Method 04/17/23 14:06 36.4 C L 92 H 18 154/75 H 94 Room Air 04/17/23 07:42 Room Air 04/17/23 07:33 36.3 C L 90 18 108/50 L 93 Room Air Resident Activity Tracking Resident Involvement: Resident Care Provided Care Provided: Adult [facility] Medicine (12) COPD (chronic obstructive pulmonary disease) COPD type: unspecified COPD Qualified Code(s): J44.9 - Chronic obstructive pulmonary disease, unspecified (13) Hypothyroidism Hypothyroidism type: unspecified Qualified Code(s): E03.9 - Hypothyroidism, unspecified (14) Hypertension Hypertension type: essential hypertension Qualified Code(s): I10 - Essential (primary) hypertension (18) CAD (coronary artery disease) Associated angina: without angina Coronary Disease-Associated Artery/Lesion type: [place] artery [place] vs. transplanted heart: [place] heart Qualified Code(s): I25.10 - Atherosclerotic heart disease of [place] coronary artery without angina pectoris (19) GERD (gastroesophageal reflux disease) Esophagitis presence: esophagitis presence not specified Qualified Code(s): K21.9 - Gastro-esophageal reflux disease without esophagitis (20) CHF (congestive heart failure) Heart failure chronicity: unspecified Heart failure type: unspecified Qualified Code(s): I50.9 - Heart failure, unspecified (21) Diabetes Diabetes mellitus complication status: with hyperglycemia Diabetes mellitus half-way insulin use: with half-way use Diabetes mellitus type: type 2 Qualified Code(s): E11.65 - Type 2 diabetes mellitus with hyperglycemia; 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
--- NOTE | 2023-04-17 19:15 | Billing Data ---
Date of Service April 17, 2023 Coding Level of Care Code 93256 SUB INP/OBS CARE
[2023-04-17] MEDS: TAMSULOSIN HCL 0.4 MG CAP PO SCH (20:41)
[2023-04-17] MEDS: FINASTERIDE 5 MG TAB PO SCH (20:41)
[2023-04-17] MEDS: GABAPENTIN 300 MG CAP PO SCH (20:41)
[2023-04-17] MEDS: ROSUVASTATIN CALCIUM 10 MG TAB PO SCH (20:41)
[2023-04-18] MEDS: AMPICILLIN 2,000 MG in SODIUM CHLOR 0.9% MINI-B 100 ML IV SCH ×2 (01:01→13:29)
[2023-04-18] MEDS: ACETAMINOPHEN 325 MG TAB PO SCH ×4 (01:01→16:56)
[2023-04-18] MEDS: LEVOTHYROXINE SODIUM 88 MCG TABLET PO SCH (05:30)
--- NOTE | 2023-04-18 07:25 | Hospitalist Progress Note ---
"Date of Service April 18, 2023 Assessment & Plan (1) Hypotension: (2) Elevated troponin I level: (3) Recurrent bacteremia: (4) Anxiety: (5) Anemia of chronic disease: (6) Chronic kidney disease, stage 4 (severe): (7) Acute kidney injury superimposed on CKD: (8) Moderate calcific aortic stenosis: (9) Peripheral vascular disease: (10) Lower extremity edema: (11) Benign prostatic hyperplasia with urinary obstruction: (12) COPD (chronic obstructive pulmonary disease): (13) Hypothyroidism: (14) Hypertension: (15) Dyslipidemia: (16) Paroxysmal atrial fibrillation: (17) Vitamin D deficiency: (18) CAD (coronary artery disease): (19) GERD (gastroesophageal reflux disease): (20) CHF (congestive heart failure): (21) Diabetes: (22) Hypokalemia: Plan 87 yo male with PMHx of CKD Stage 4 (previous admission with JUDI requiring temporary dialysis), DVT, T2DM insulin dependent, HTN, hypothyroidism, AFib, CAD, BPH, GERD, recurrent bacteremia, aortic stenosis, anxiety, and CHF who presents with unwitnessed fall with concomitant bowel/bladder incontinence and associated hypotension. 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 - Palliative care consulted, considering placement now. She is aware of inability of taking care of him -[facility] might have a bed for him tomorrow if third covid test is negative. Case management following Unstageable pressure injury on coccyx -Wound care on case -waffle boots -daily change and as needed -Patient with allergy to Silver dressings JUDI on CKD stage 4 | Suspected ATN | hypokalemia | hypocalcemia -Cr baseline ~ 2, peak this admission 5.92, Cr 4.40 -Elevation in creatinine prerenal, likely secondary to dehydration -pt does not want dialysis at this time -Hypokalemia resolved Hold Bumex BMP AM Chronic HFpEF | Aortic stenosis | Peripheral edema | CAD/PVD/HLD | Afib Hold bumex 1mgs q48hrs. -cont. metoprolol; Eliquis -cont. statin -cont. ASA, statin DM2 -Lantus + SSI Diabetic neuropathy -cont. gabapentin COPD -cont. home inhalers Anxiety -cont. clonazepam BPH -cont. finasteride, tamsulosin Code: DNR/DNI DVT ppx: Eliquis FEN/GI: Regular diet Dispo - -PT/OT recommending SNF -->[facility], but Covid + Admission and Anticipated Discharge Date Admission Date: March 19, 2023 Supervising Physician Co-Signing Physician Notes I personally examined the patient and verified all aguayo points of history and exam, discussed case, and agree with decision making with Dr Brandon Hernández case management still working on dispo - appreciate efforts. updated. vitals noted nad heent nc at mmm breathing unlabored no accessory muscles good effort skin no rashes no pallor or icterus recurrent enterococcus bacteremia - prolonged course ampicillin, anticipate chronic suppressive Rx then/outpt ID follow up goals of care still in flux - at this point more of a subacute rehab goal acutely - case management working on this. otherwise as above Subjective 87 yo male with PMHx of CKD Stage 4 (previous admission with JUDI requiring temporary dialysis), DVT, J6LT-xalioig dependent, HTN, hypothyroidism, afib, CAD, BPH, GERD, recurrent bacteremia, aortic stenosis, anxiety, and CHF who presents with unwitnessed fall with concomitant bowel/bladder incontinence and associated hypotension. Today, pt is alert, w/o distress. He states he feels good today. Very agreeable and cooperative with exam. Patient had a bed on [facility] but patient covid + yesterday. Seem that this was a false positive due to lab having problems with machine. Repeat was negative. Oriental test us running now. Pending placement, likely tomorrow if third test is negative Review of Systems Review of Systems: as per HPI Physical Exam Physical Exam: Constitutional: WD/WN, vitals as a july Respiratory: normal respiratory effort, lungs isai ar to auscultation Cardiovascular: Rate/Rhythm: regul ar rate and regula r rhythm Extremit ies: + edema Gastrointestinal ( Abdomen): normal bowel sound s, soft, nontender , no hepatosplenom egaly Psychiatric: A+Ox3, euthymic af fect Results & Data Results & Data Vital Signs (Past 12 Hours) Vital Signs Temp Pulse Resp BP BP Pulse Ox O2 Del Method 04/18/23 07:22 36.4 C L 75 18 175/74 H 97 Room Air 04/17/23 20:23 36.3 C L 75 18 174/75 H 94 Room Air 04/17/23 20:20 Room Air Resident Activity Tracking Resident Involvement: Resident Care Provided Care Provided: Adult Hospital Medicine (12) COPD (chronic obstructive pulmonary disease) COPD type: unspecified COPD Qualified Code(s): J44.9 - Chronic obstructive pulmonary disease, unspecified (13) Hypothyroidism Hypothyroidism type: unspecified Qualified Code(s): E03.9 - Hypothyroidism, unspecified (14) Hypertension Hypertension type: essential hypertension Qualified Code(s): I10 - Essential (primary) hypertension (18) CAD (coronary artery disease) Associated angina: without angina Coronary Disease-Associated Artery/Lesion type: [place] artery [place] vs. transplanted heart: [place] heart Qualified Code(s): I25.10 - Atherosclerotic heart disease of [place] coronary artery without angina pectoris (19) GERD (gastroesophageal reflux disease) Esophagitis presence: esophagitis presence not specified Qualified Code(s): K21.9 - Gastro-esophageal reflux disease without esophagitis (20) CHF (congestive heart failure) Heart failure chronicity: unspecified Heart failure type: unspecified Qualified Code(s): I50.9 - Heart failure, unspecified (21) Diabetes Diabetes mellitus complication status: with hyperglycemia Diabetes mellitus buttermaker helper insulin use: with buttermaker helper use Diabetes mellitus type: type 2 Qualified Code(s): E11.65 - Type 2 diabetes mellitus with hyperglycemia; Z79.4 - care home (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"
[2023-04-18] MEDS: FLUTICASONE/VILANTEROL 100/25MCG 14 PUFFS/INHALER INH SCH (07:27)
[2023-04-18] MEDS: UMECLIDINIUM BROMIDE 62.5MCG/BLISTER 7 PUFFS/INHALER INH SCH (07:28)
[2023-04-18] MEDS: PANTOprazole 40 MG TAB PO SCH ×2 (07:29→21:12)
[2023-04-18] MEDS: GABAPENTIN 100 MG CAP PO SCH (07:29)
[2023-04-18] MEDS: METOPROLOL TARTRATE 25 MG TAB PO SCH ×2 (07:29→21:13)
[2023-04-18] MEDS: clonazePAM 1 MG TAB PO SCH ×2 (07:29→21:26)
[2023-04-18] MEDS: ASPIRIN 81 MG ECTAB PO SCH (07:30)
[2023-04-18] MEDS: APIXABAN 2.5 MG TAB PO SCH ×2 (07:30→21:13)
[2023-04-18] MEDS: MICONAZOLE NITRATE POWDER 85 GM EXT SCH ×2 (07:30→21:13)
[2023-04-18] MEDS: INSULIN ASPART PER UNIT CHARGE SC SCH ×4 (08:19→21:18)
--- NOTE | 2023-04-18 18:43 | Billing Data ---
Date of Service April 18, 2023 Coding Level of Care Code 38673 SUB INP/OBS CARE
[2023-04-18] MEDS: GABAPENTIN 300 MG CAP PO SCH (21:12)
[2023-04-18] MEDS: FINASTERIDE 5 MG TAB PO SCH (21:12)
[2023-04-18] MEDS: TAMSULOSIN HCL 0.4 MG CAP PO SCH (21:12)
[2023-04-18] MEDS: ROSUVASTATIN CALCIUM 10 MG TAB PO SCH (21:13)
[2023-04-19] MEDS: ACETAMINOPHEN 325 MG TAB PO SCH ×4 (02:16→16:51)
[2023-04-19] MEDS: AMPICILLIN 2,000 MG in SODIUM CHLOR 0.9% MINI-B 100 ML IV SCH ×2 (02:17→13:17)
[2023-04-19] MEDS: LEVOTHYROXINE SODIUM 88 MCG TABLET PO SCH (06:00)
--- NOTE | 2023-04-19 07:23 | Hospitalist Progress Note ---
"Date of Service April 19, 2023 Assessment & Plan (1) Hypotension: (2) Elevated troponin I level: (3) Recurrent bacteremia: (4) Anxiety: (5) Anemia of chronic disease: (6) Chronic kidney disease, stage 4 (severe): (7) Acute kidney injury superimposed on CKD: (8) Moderate calcific aortic stenosis: (9) Peripheral vascular disease: (10) Lower extremity edema: (11) Benign prostatic hyperplasia with urinary obstruction: (12) COPD (chronic obstructive pulmonary disease): (13) Hypothyroidism: (14) Hypertension: (15) Dyslipidemia: (16) Paroxysmal atrial fibrillation: (17) Vitamin D deficiency: (18) CAD (coronary artery disease): (19) GERD (gastroesophageal reflux disease): (20) CHF (congestive heart failure): (21) Diabetes: (22) Hypokalemia: Plan 87 yo male with PMHx of CKD Stage 4 (previous admission with JUDI requiring temporary dialysis), DVT, T2DM insulin dependent, HTN, hypothyroidism, AFib, CAD, BPH, GERD, recurrent bacteremia, aortic stenosis, anxiety, and CHF who presents with unwitnessed fall with concomitant bowel/bladder incontinence and associated hypotension. 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 - Palliative care consulted, considering placement now. She is aware of inability of taking care of him -[facility] might have a bed. Case management following, waiting authorization Unstageable pressure injury on coccyx -Wound care on case -waffle boots -daily change and as needed -Patient with allergy to Silver dressings JUDI on CKD stage 4 | Suspected ATN | hypokalemia | hypocalcemia -Cr baseline ~ 2, peak this admission 5.92, Cr 4.40 -Elevation in creatinine prerenal, likely secondary to dehydration -pt does not want dialysis at this time -Hypokalemia resolved Hold Bumex BMP AM Chronic HFpEF | Aortic stenosis | Peripheral edema | CAD/PVD/HLD | Afib Hold bumex 1mgs q48hrs. -cont. metoprolol; Eliquis -cont. statin -cont. ASA, statin DM2 -Lantus + SSI Diabetic neuropathy -cont. gabapentin COPD -cont. home inhalers Anxiety -cont. clonazepam BPH -cont. finasteride, tamsulosin Code: DNR/DNI DVT ppx: Eliquis FEN/GI: Regular diet Dispo - -PT/OT recommending SNF -->[facility], but Covid + Admission and Anticipated Discharge Date Admission Date: March 19, 2023 Supervising Physician Co-Signing Physician Notes I personally examined the patient and verified all aguayo points of history and exam, discussed case, and agree with decision making with Dr Brandon Hernández A little more delirious little more upset, case management still working on disposition, unfortunately none today. vitals noted nad heent nc at mmm breathing unlabored no accessory muscles good effort skin no rashes no pallor or icterus recurrent enterococcus bacteremia - continue prolonged course ampicillin, anticipate chronic suppressive Rx then/outpt ID follow up goals of care still in flux - at this point more of a subacute rehab goal acutely - case management working on this. disposition has been difficult otherwise as above Subjective 87 yo male with PMHx of CKD Stage 4 (previous admission with JUDI requiring temporary dialysis), DVT, T6SA-rya[place] dependent, HTN, hypothyroidism, afib, CAD, BPH, GERD, recurrent bacteremia, aortic stenosis, anxiety, and CHF who presents with unwitnessed fall with concomitant bowel/bladder incontinence and associated hypotension. Today, pt is alert, w/o distress. He states he feels good today. Very agreeable and cooperative with exam. Patient had a bed on [facility] but patient covid +. Seem that this was a false positive due to lab having problems with machine. Repeat was negative x 2. Case management following Review of Systems Review of Systems: as per HPI Physical Exam Constitutional: WD/WN, vitals as above Respiratory: normal respiratory effort, lungs clear to auscultation Cardiovascular: RRR, no murmur, no edema Gastrointestinal (Abdomen): normal bowel sounds, soft, nontender, no hepatosplenomegaly Results & Data Results & Data Vital Signs (Past 12 Hours) Vital Signs Temp Pulse Resp BP Pulse Ox O2 Del Method 04/18/23 21:10 Room Air 04/18/23 21:09 36.3 C L 74 16 165/70 H 99 Room Air Resident Activity Tracking Resident Involvement: Resident Care Provided Care Provided: Adult Hospital Medicine (12) COPD (chronic obstructive pulmonary disease) COPD type: unspecified COPD Qualified Code(s): J44.9 - Chronic obstructive pulmonary disease, unspecified (13) Hypothyroidism Hypothyroidism type: unspecified Qualified Code(s): E03.9 - Hypothyroidism, unspecified (14) Hypertension Hypertension type: essential hypertension Qualified Code(s): I10 - Essential (primary) hypertension (18) CAD (coronary artery disease) Associated angina: without angina Coronary Disease-Associated Artery/Lesion type: [place] artery [place] vs. transplanted heart: [place] heart Qualified Code(s): I25.10 - Atherosclerotic heart disease of [place] coronary artery without angina pectoris (19) GERD (gastroesophageal reflux disease) Esophagitis presence: esophagitis presence not specified Qualified Code(s): K21.9 - Gastro-esophageal reflux disease without esophagitis (20) CHF (congestive heart failure) Heart failure chronicity: unspecified Heart failure type: unspecified Qualified Code(s): I50.9 - Heart failure, unspecified (21) Diabetes Diabetes mellitus complication status: with hyperglycemia Diabetes mellitus fci insulin use: with 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
[2023-04-19] MEDS: ASPIRIN 81 MG ECTAB PO SCH (07:54)
[2023-04-19] MEDS: GABAPENTIN 100 MG CAP PO SCH (07:54)
[2023-04-19] MEDS: APIXABAN 2.5 MG TAB PO SCH ×2 (07:55→20:59)
[2023-04-19] MEDS: UMECLIDINIUM BROMIDE 62.5MCG/BLISTER 7 PUFFS/INHALER INH SCH (07:55)
[2023-04-19] MEDS: METOPROLOL TARTRATE 25 MG TAB PO SCH ×2 (07:55→21:01)
[2023-04-19] MEDS: clonazePAM 1 MG TAB PO SCH ×2 (07:56→20:58)
[2023-04-19] MEDS: MICONAZOLE NITRATE POWDER 85 GM EXT SCH ×2 (07:56→21:00)
[2023-04-19] MEDS: PANTOprazole 40 MG TAB PO SCH ×2 (07:56→21:01)
[2023-04-19] MEDS: INSULIN ASPART PER UNIT CHARGE SC SCH ×4 (08:03→21:11)
[2023-04-19] MEDS: FLUTICASONE/VILANTEROL 100/25MCG 14 PUFFS/INHALER INH SCH (09:33)
--- NOTE | 2023-04-19 17:32 | Billing Data ---
Date of Service April 19, 2023 Coding Level of Care Code 34560 SUB INP/OBS CARE
[2023-04-19] MEDS: ROSUVASTATIN CALCIUM 10 MG TAB PO SCH (20:58)
[2023-04-19] MEDS: FINASTERIDE 5 MG TAB PO SCH (20:59)
[2023-04-19] MEDS: TAMSULOSIN HCL 0.4 MG CAP PO SCH (21:00)
[2023-04-19] MEDS: GABAPENTIN 300 MG CAP PO SCH (21:01)
[2023-04-20] MEDS: AMPICILLIN 2,000 MG in SODIUM CHLOR 0.9% MINI-B 100 ML IV SCH ×2 (01:38→13:16)
[2023-04-20] MEDS: ACETAMINOPHEN 325 MG TAB PO SCH ×4 (05:50→17:19)
[2023-04-20] MEDS: LEVOTHYROXINE SODIUM 88 MCG TABLET PO SCH (05:51)
[2023-04-20] MEDS: FLUTICASONE/VILANTEROL 100/25MCG 14 PUFFS/INHALER INH SCH (07:54)
[2023-04-20] MEDS: GABAPENTIN 100 MG CAP PO SCH (07:54)
[2023-04-20] MEDS: APIXABAN 2.5 MG TAB PO SCH ×2 (07:54→20:48)
[2023-04-20] MEDS: METOPROLOL TARTRATE 25 MG TAB PO SCH ×2 (07:55→20:47)
[2023-04-20] MEDS: PANTOprazole 40 MG TAB PO SCH ×2 (07:55→20:47)
[2023-04-20] MEDS: ASPIRIN 81 MG ECTAB PO SCH (07:55)
[2023-04-20] MEDS: MICONAZOLE NITRATE POWDER 85 GM EXT SCH ×2 (07:56→20:48)
[2023-04-20] MEDS: clonazePAM 1 MG TAB PO SCH ×2 (07:58→20:47)
[2023-04-20] MEDS: INSULIN ASPART PER UNIT CHARGE SC SCH ×4 (08:25→21:38)
[2023-04-20] MEDS: UMECLIDINIUM BROMIDE 62.5MCG/BLISTER 7 PUFFS/INHALER INH SCH (08:26)
[2023-04-20] MEDS ORDERED: oxyCODONE HCL IR 5 MG TAB (IMMEDIATE RELEASE) PO STA (09:09)
[2023-04-20 10:17] LABS: Calcium 7.5 mg/dl (8.6-10.3); Est GFR (African American) 10.2 ml/min; Est GFR (Non-African American) 8.8 ml/min; Potassium 3.5 mmol/L (3.5-5.1)
[2023-04-20] MEDS: LACTATED RINGER'S 1,000 ML IV SCH (10:56)
--- NOTE | 2023-04-20 15:21 | Hospitalist Progress Note ---
Date of Service April 20, 2023 Assessment & Plan (1) Hypotension: (2) Elevated troponin I level: (3) Recurrent bacteremia: (4) Anxiety: (5) Anemia of chronic disease: (6) Chronic kidney disease, stage 4 (severe): (7) Acute kidney injury superimposed on CKD: (8) Moderate calcific aortic stenosis: (9) Peripheral vascular disease: (10) Lower extremity edema: (11) Benign prostatic hyperplasia with urinary obstruction: (12) COPD (chronic obstructive pulmonary disease): (13) Hypothyroidism: (14) Hypertension: (15) Dyslipidemia: (16) Paroxysmal atrial fibrillation: (17) Vitamin D deficiency: (18) CAD (coronary artery disease): (19) GERD (gastroesophageal reflux disease): (20) CHF (congestive heart failure): (21) Diabetes: (22) Hypokalemia: Plan 87 yo male with PMHx of CKD Stage 4 (previous admission with JUDI requiring temporary dialysis), DVT, T2DM insulin dependent, HTN, hypothyroidism, AFib, CAD, BPH, GERD, recurrent bacteremia, aortic stenosis, anxiety, and CHF who presents with unwitnessed fall with concomitant bowel/bladder incontinence and associated hypotension. Recurrent E.Faecalis Bacteremia -- Fortunately no endocarditis, no obvious source for recurrent infectionspossible urinary, possibly skin wound. At any rate he has had multiple episodes of Enterococcus bacteremia this yearcurrent plan for prolonged ampicillin, probably suppressive therapy thereafter. Unstageable pressure injury on coccyx -Wound care on case -waffle boots -daily change and as needed -Patient with allergy to Silver dressings JUDI on CKD stage 4 | Suspected ATN | hypokalemia | hypocalcemia - Continuing to hold Bumex, creatinine rising again, fortunately asymptomaticafter review with nephrology this admission, he seems to probably be extremely flow dependent in a prerenal state, and likely is dry again from poor p.o. intakeresuming IV fluids and follow. Extensive and very hermilo discussion with his yet againoutlining that his edema is generally third spaced and venous stasis fluid, and while he may have the potential for CHF, almost always his swelling is venous stasis and third spaced fluidsdiscussed with his tenuous renal status, diuresis for venous stasis usually results in a disproportionate degree of dehydration/azotemia compared to the improvement in the edema, and given the tenuous nature of his current status diuresis for venous stasis really could and any hope of renal recovery for him. I took a hermilo but "lovingly blunt" tone and posture with her because she has been known to fairly actively lobby for diuretics for him, and I expressed concern that once he is out of the hospital and I am not able to talk her through the situation it could lead to harm. I did not try to sound judgmental or offensive, but rather empathetic and educational, but very protective of the patient's kidney function. As best I could tell, I believe it was well- received. - in regards to his iron stores, it looks like he had gotten 5 days of IV iron earlier in his hospital stay, but the patient's had noted this was stopped part way through, in review with pharmacy, he did only receive 2 of a proscribed 5 doses, dose ordered today, can definitely give a dose tomorrow, if he goes to SNF, probably would simply repeat iron stores again in a month to check his status, but if he is not able to go to SNF tomorrow, obviously we can then complete the 5 dose load. Chronic HFpEF | Aortic stenosis | Peripheral edema | CAD/PVD/HLD | Afib See above as far as diuretics -cont. metoprolol; Eliquis -cont. statin -cont. ASA, statin DM2 -Lantus + SSI Diabetic neuropathy -cont. gabapentin COPD -cont. home inhalers Anxiety -cont. clonazepam BPH -cont. finasteride, tamsulosin Code: DNR/DNI DVT ppx: Eliquis FEN/GI: Regular diet Dispo - awaiting SNF Admission and Anticipated Discharge Date Admission Date: March 19, 2023 Subjective physically feeling okay. present with questionsanswered to the best my ability. Review of Systems Review of Systems: Vitals noted, in general he is awake and alert fatigued but no distress. HEENT normocephalic atraumatic mucous membranes moist. Breathing unlabored no accessory muscle use good effort. Skin shows no rashes no pallor or icterus. Neuro without focal deficits. Results & Data Results & Data Vital Signs (Past 12 Hours) Vital Signs Temp Pulse Resp BP Pulse Ox O2 Del Method 04/20/23 14:47 98.4 F 71 16 184/76 H 97 Room Air 04/20/23 07:11 98.6 F 73 16 143/70 H 96 Room Air PG Care Time/CCT Total # of Minutes Spent Total Time Spent with Patient: Total time spent is greater than 50% in coordination of care (as documented) at patient's floor/unit and/or counseling patient: Coding Level of Care Code 65885 SUB INP/OBS CARE 3/50MIN Diagnoses Hypotension I95.9 Elevated troponin I level R79.89 Recurrent bacteremia R78.81 Anxiety F41.9 Anemia of chronic disease D63.8 Chronic kidney disease, stage 4 (severe) N18.4 Acute kidney injury superimposed on CKD N17.9; N18.9 Moderate calcific aortic stenosis I35.0 Peripheral vascular disease I73.9 Lower extremity edema R60.0 Benign prostatic hyperplasia with urinary obstruction N40.1; N13.8 Chronic obstructive pulmonary disease, unspecified COPD type J44.9 COPD type: unspecified COPD Hypothyroidism, unspecified type E03.9 Hypothyroidism type: unspecified Essential hypertension I10 Hypertension type: essential hypertension Dyslipidemia E78.5 Paroxysmal atrial fibrillation I48.0 Vitamin D deficiency E55.9 Coronary artery disease involving [place] coronary artery of [place] heart without angina pectoris I25.10 Coronary Disease-Associated Artery/Lesion type: [place] artery [place] vs. transplanted heart: [place] heart Associated angina: without angina Gastroesophageal reflux disease, unspecified whether esophagitis present K21.9 Esophagitis presence: esophagitis presence not specified Congestive heart failure, unspecified HF chronicity, unspecified heart failure type I50.9 Heart failure type: unspecified Heart failure chronicity: unspecified Type 2 diabetes mellitus with hyperglycemia, with long-term current use of insulin E11.65; Z79.4 Diabetes mellitus type: type 2 Diabetes mellitus parts counterman insulin use: with parts counterman use Diabetes mellitus complication status: with hyperglycemia Hypokalemia E87.6 (12) COPD (chronic obstructive pulmonary disease) COPD type: unspecified COPD Qualified Code(s): J44.9 - Chronic obstructive pulmonary disease, unspecified (13) Hypothyroidism Hypothyroidism type: unspecified Qualified Code(s): E03.9 - Hypothyroidism, unspecified (14) Hypertension Hypertension type: essential hypertension Qualified Code(s): I10 - Essential (primary) hypertension (18) CAD (coronary artery disease) Coronary Disease-Associated Artery/Lesion type: [place] artery [place] vs. transplanted heart: [place] heart Associated angina: without angina Qualified Code(s): I25.10 - Atherosclerotic heart disease of [place] coronary artery without angina pectoris (19) GERD (gastroesophageal reflux disease) Esophagitis presence: esophagitis presence not specified Qualified Code(s): K21.9 - Gastro-esophageal reflux disease without esophagitis (20) CHF (congestive heart failure) Heart failure type: unspecified Heart failure chronicity: unspecified Qualified Code(s): I50.9 - Heart failure, unspecified (21) Diabetes Diabetes mellitus type: type 2 Diabetes mellitus parts counterman insulin use: with alf use Diabetes mellitus complication status: with hyperglycemia Qualified Code(s): E11.65 - Type 2 diabetes mellitus with hyperglycemia; Z79.4 - terminal gauger (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
[2023-04-20] MEDS ORDERED: IRON SUCROSE 200 MG in 0.9 % SODIUM CHLORIDE 100 ML IV ONE (15:30)
[2023-04-20] MEDS: GABAPENTIN 300 MG CAP PO SCH (20:49)
[2023-04-20] MEDS: FINASTERIDE 5 MG TAB PO SCH (20:49)
[2023-04-20] MEDS: ROSUVASTATIN CALCIUM 10 MG TAB PO SCH (20:49)
[2023-04-20] MEDS: TAMSULOSIN HCL 0.4 MG CAP PO SCH (20:49)
[2023-04-21] MEDS: ACETAMINOPHEN 325 MG TAB PO SCH ×3 (00:55→12:21)
[2023-04-21] MEDS: LACTATED RINGER'S 1,000 ML IV SCH ×2 (01:20→13:19)
[2023-04-21] MEDS: AMPICILLIN 2,000 MG in SODIUM CHLOR 0.9% MINI-B 100 ML IV SCH ×2 (02:10→13:18)
[2023-04-21] MEDS: LEVOTHYROXINE SODIUM 88 MCG TABLET PO SCH (05:14)
[2023-04-21 07:09] LABS: BUN Creatinine Ratio 9.8 (10-20); Calcium 7.4 mg/dl (8.6-10.3); Est GFR (African American) 10.2 ml/min; Est GFR (Non-African American) 8.8 ml/min; Potassium 3.6 mmol/L (3.5-5.1)
--- NOTE | 2023-04-21 07:09 | Hospitalist Progress Note ---
"Date of Service April 21, 2023 Assessment & Plan (1) Hypotension: (2) Elevated troponin I level: (3) Recurrent bacteremia: (4) Anxiety: (5) Anemia of chronic disease: (6) Chronic kidney disease, stage 4 (severe): (7) Acute kidney injury superimposed on CKD: (8) Moderate calcific aortic stenosis: (9) Peripheral vascular disease: (10) Lower extremity edema: (11) Benign prostatic hyperplasia with urinary obstruction: (12) COPD (chronic obstructive pulmonary disease): (13) Hypothyroidism: (14) Hypertension: (15) Dyslipidemia: (16) Paroxysmal atrial fibrillation: (17) Vitamin D deficiency: (18) CAD (coronary artery disease): (19) GERD (gastroesophageal reflux disease): (20) CHF (congestive heart failure): (21) Diabetes: (22) Hypokalemia: Plan 87 yo male with PMHx of CKD Stage 4 (previous admission with [facility]I requiring temporary dialysis), DVT, T2DM insulin dependent, HTN, hypothyroidism, AFib, CAD, BPH, GERD, recurrent bacteremia, aortic stenosis, anxiety, and CHF who presents with unwitnessed fall with concomitant bowel/bladder incontinence and associated hypotension. 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 - Palliative care consulted, considering placement now. She is aware of inability of taking care of him -[facility] might have a bed. Case management following, waiting authorization Unstageable pressure injury on coccyx -Wound care on case -waffle boots -daily change and as needed -Patient with allergy to Silver dressings JUDI on CKD stage 4 | Suspected ATN | hypokalemia | hypocalcemia -Cr baseline ~ 2, peak this admission 5.92, -Elevation in creatinine prerenal, likely secondary to dehydration -pt does not want dialysis at this time -IV fluids resumed LR 75 ml/hr -IV iron resumed. 4/5 doses given, repeat iron studies in rehab Hold Bumex BMP AM Chronic HFpEF | Aortic stenosis | Peripheral edema | CAD/PVD/HLD | Afib Hold bumex 1mgs q48hrs. -cont. metoprolol; Eliquis -cont. statin -cont. ASA, statin DM2 -Lantus + SSI Diabetic neuropathy -cont. gabapentin COPD -cont. home inhalers Anxiety -cont. clonazepam BPH -cont. finasteride, tamsulosin Code: DNR/DNI DVT ppx: Eliquis FEN/GI: Regular diet Dispo - -PT/OT recommending SNF -->[facility], but Covid + Admission and Anticipated Discharge Date Admission Date: March 19, 2023 Supervising Physician Co-Signing Physician Notes I personally examined the patient and verified all augay[place] points of history and exam, discussed case, and agree with decision making with Dr Brandon Hernández Upset about lack of placement. I offered empathy. vitals noted nad heent nc at mmm breathing unlabored no accessory muscles good effort skin no rashes no pallor or icterus recurrent enterococcus bacteremia - continue prolonged course ampicillin, anticipate chronic suppressive Rx thereafter/outpt ID follow up goals of care still in flux - at this point more of a subacute rehab goal acutely - case management working on this. disposition has been difficult, stable once a bed is available/insurance approval has been obtained otherwise as above Subjective PAtient seen this morning, in NAD. In a good mood. No acute complains. Denied any chest pain, sob, palpitation, nausea, diarrhea or vomits. Review of Systems Review of Systems: as per HPI Physical Exam Constitutional: WD/WN, vitals as above Respiratory: normal respiratory effort, lungs clear to auscultation Cardiovascular: RRR, no murmur, no edema Gastrointestinal (Abdomen): normal bowel sounds, soft, nontender, no hepatosplenomegaly Results & Data Results & Data Vital Signs (Past 12 Hours) Vital Signs Temp Pulse Resp BP Pulse Ox O2 Del Method 04/20/23 20:50 Room Air 04/20/23 20:40 36.3 C L 73 18 171/79 H 99 Room Air Resident Activity Tracking Resident Involvement: Resident Care Provided Care Provided: Adult Hospital Medicine (12) COPD (chronic obstructive pulmonary disease) COPD type: unspecified COPD Qualified Code(s): J44.9 - Chronic obstructive pulmonary disease, unspecified (13) Hypothyroidism Hypothyroidism type: unspecified Qualified Code(s): E03.9 - Hypothyroidism, unspecified (14) Hypertension Hypertension type: essential hypertension Qualified Code(s): I10 - Essential (primary) hypertension (18) CAD (coronary artery disease) Associated angina: without angina Coronary Disease-Associated Artery/Lesion type: [place] artery [place] vs. transplanted heart: [place] heart Qualified Code(s): I25.10 - Atherosclerotic heart disease of [place] coronary artery without angina pectoris (19) GERD (gastroesophageal reflux disease) Esophagitis presence: esophagitis presence not specified Qualified Code(s): K21.9 - Gastro-esophageal reflux disease without esophagitis (20) CHF (congestive heart failure) Heart failure chronicity: unspecified Heart failure type: unspecified Qualified Code(s): I50.9 - Heart failure, unspecified (21) Diabetes Diabetes mellitus complication status: with hyperglycemia Diabetes mellitus 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
[2023-04-21] MEDS: GABAPENTIN 100 MG CAP PO SCH (08:38)
[2023-04-21] MEDS: ASPIRIN 81 MG ECTAB PO SCH (08:38)
[2023-04-21] MEDS: METOPROLOL TARTRATE 25 MG TAB PO SCH (08:39)
[2023-04-21] MEDS: APIXABAN 2.5 MG TAB PO SCH (08:39)
[2023-04-21] MEDS: PANTOprazole 40 MG TAB PO SCH (08:39)
[2023-04-21] MEDS: UMECLIDINIUM BROMIDE 62.5MCG/BLISTER 7 PUFFS/INHALER INH SCH (08:40)
[2023-04-21] MEDS: FLUTICASONE/VILANTEROL 100/25MCG 14 PUFFS/INHALER INH SCH (08:40)
[2023-04-21] MEDS: INSULIN ASPART PER UNIT CHARGE SC SCH ×2 (08:41→12:20)
[2023-04-21] MEDS: clonazePAM 1 MG TAB PO SCH (09:00)
[2023-04-21] MEDS: MICONAZOLE NITRATE POWDER 85 GM EXT SCH (11:22)
[2023-04-21] MEDS ORDERED: IRON SUCROSE 200 MG in 0.9 % SODIUM CHLORIDE 100 ML IV ONE (13:00)
--- NOTE | 2023-04-21 13:03 | Billing Data ---
Date of Service April 21, 2023 Coding Level of Care Code 26752 SUB INP/OBS CARE
--- NOTE | 2023-04-21 14:34 | Discharge Summary ---
"Date of Service April 21, 2023 Admission HPI Per Admitting Provider 87 yo male with PMHx of CKD Stage 4 (previous admission with [facility] requiring temporary dialysis), DVT, DM2 insulin dependent, HTN, hypothyroidism, afib, CAD, BPH, GERD, recurrent bacteremia, aortic stenosis, anxiety, and CHF who presents with fall. at bedside. Patient woke up this morning with chills. had left the house to run errands leaving patient in bed sleeping and upon return a few hours later she found the patient on the bedroom floor with significant bladder and bowel incontinence as well as some emesis. After getting all cleaned up the took his blood pressure and found it to be low, systolically in the 70s which prompted the ED visit. Patient unsure how he had gotten on the floor but did not seem confused per . Patient denies fevers, headache, chest pain, shortness of breath, abdominal pain, nausea, vomiting, fatigue, lower extremity weakness/tingling/numbness, and dysuria. Bowel movements and urination have been normal till this episode. Of note patient did endorse some right and left shoulder pain and was found laying on his left shoulder. Admission Exam Per Admitting Provider Constitutional: in no acute distress, pleasant and normal affect, intact memory. AOx3. Vitals as above. HEENT: No scleral injection or discharge.Dry mucous membranes. Clear oropharynx without exudate. Neck: Supple without lymphadenopathy or thyromegaly. Trachea midline. Lungs: Clear to auscultation bilaterally with good effort. No wheezes/rales/rhonchi. Cardiac: RRR. +murmur.2+ lower extremity edema. 2+ distal peripheral pulses. Abdomen: Bowel sounds present. Soft, nontender, and nondistended.No guarding. No hepatosplenomegaly. MSK: No cyanosis or clubbing. Extremities motor strength 5/5. Skin: new hematoma L shoulder Neurologic: no focal deficits Principal Diagnosis Recurrent E. Faecalis Bacteremia Discharge Exam Constitutional WD/WN, vitals as above Respiratory normal respiratory effort, lungs clear to auscultation Cardiovascular RRR, no murmur, no edema Gastrointestinal (Abdomen) normal bowel sounds, soft, nontender, no hepatosplenomegaly Discharge Data Allergies Allergy/AdvReac Type Severity Reaction Status Date / Time Cephalosporins Allergy Unknown Verified 03/19/23 00:43 ciprofloxacin [From Cipro] AdvReac Severe Unknown Verified 03/19/23 00:43 semaglutide [From Ozempic] AdvReac Severe NAUSEA/VOMI Verified 03/19/23 00:43 TING/ANOREX IA amlodipine AdvReac Intermediate SWELLING Verified 03/19/23 00:43 OF ANKLES ropinirole AdvReac Intermediate CHANGE IN Verified 03/19/23 00:43 MENTAL STATUS silver [From SilvaSorb] AdvReac (silver Verified 03/19/23 02:04 dressings) redness of skin Consultations 03/18/23 22:53 ED Decision to Admit Stat 03/20/23 08:39 Consult Infectious Diseases Routine 03/23/23 16:27 Consult Orthopedic Surgery Routine 03/25/23 08:42 Consult Nephrology Routine 03/28/23 10:07 Consult Palliative Care Routine 04/11/23 14:07 Consult Palliative Care Routine Procedures Performed Operation Date: 03/22/23 15:15 Actual Procedures p Echo Transesophageal - Davis Dillard MD s Echo Color Flow - Davis Dillard MD s Echo Doppler Complete - Davis Dillard MD Ordered Studies 03/18/23 23:02 CT abd pelvis wo con Stat Chest X-Ray 03/18/23 19:49 XR chest 1V portable CLINICAL HISTORY: Sepsis TECHNIQUE: Single frontal radiograph of the chest was obtained. Comparison: Comparison is made to chest radiograph 01/20/2023 FINDINGS: Stable appearance of median sternotomy wires including fractured superior wire. Calcified aortic knob is seen. The lungs are clear. No evidence of pleural effusion or pneumothorax. IMPRESSION: No acute abnormalities and in particular no radiographic evidence of pneumonia. ACT 112: Negative or not required by law. Electronically signed by: Dano West M.D. 03/19/2023 9:30 AM Forearm X-Ray 03/18/23 20:03 XR forearm LT 2V CLINICAL HISTORY: fall TECHNIQUE: 2 views of the left forearm were obtained. Comparison: None available at the time of this dictation. FINDINGS: There is no evidence of acute fracture or dislocation. Joint spaces are well- preserved. Vascular calcifications are noted. IMPRESSION: Degenerative changes without evidence of acute injury. ACT 112: Negative or not required by law. Electronically signed by: Dano West M.D. 03/19/2023 9:26 AM Shoulder X-Ray 03/18/23 20:03 XR shoulder LT min 2V routine, XR shoulder RT min 2V routine CLINICAL HISTORY: fall TECHNIQUE: 3 views of the bilateral shoulders were obtained. Comparison: None available at the time of this dictation. FINDINGS: There is no evidence of an acute fracture. Degenerative changes are seen in the glenohumeral joint. The overlying soft tissues are unremarkable. The visualized portions of the lungs are clear. IMPRESSION: No evidence of acute osseous injury. ACT 112: Negative or not required by law. Electronically signed by: Dano West M.D. 03/19/2023 9:26 AM Shoulder X-Ray 03/18/23 20:03 XR shoulder LT min 2V routine, XR shoulder RT min 2V routine CLINICAL HISTORY: fall TECHNIQUE: 3 views of the bilateral shoulders were obtained. Comparison: None available at the time of this dictation. FINDINGS: There is no evidence of an acute fracture. Degenerative changes are seen in the glenohumeral joint. The overlying soft tissues are unremarkable. The visualized portions of the lungs are clear. IMPRESSION: No evidence of acute osseous injury. ACT 112: Negative or not required by law. Electronically signed by: Dano West M.D. 03/19/2023 9:26 AM Abdomen/Pelvis CT 03/18/23 23:02 Exam(s): CT ABDOMEN + PELVIS Without Contrast EXAM: CT Abdomen and Pelvis Without Intravenous Contrast CLINICAL HISTORY: Reason for exam: INFECTION. TECHNIQUE: Axial computed tomography images of the abdomen and pelvis without intravenous contrast. CTDI is 27.36 mGy and DLP is 1321.05 mGy-cm. Automated exposure control was utilized for the study. A dose lowering technique was utilized adhering to the principles of ALARA. COMPARISON: No relevant prior studies available. FINDINGS: Lung bases: Atelectasis at the lung bases. Heart: Cardiomegaly. ABDOMEN: Liver: Unremarkable. Gallbladder and bile ducts: Cholecystectomy. No ductal dilation. Pancreas: Unremarkable. No ductal dilation. Spleen: Unremarkable. No splenomegaly. Adrenals: Unremarkable. No mass. Kidneys and ureters: No hydronephrosis or nephrolithiasis. Wall thickening of the urinary bladder measuring up to 7 mm, concerning for UTI. Urinalysis recommended. Stomach and bowel: Diverticulosis, without acute diverticulitis. No small bowel obstruction. No free intraperitoneal air. PELVIS: Appendix: No findings to suggest acute appendicitis. Bladder: See above. Reproductive: Unremarkable as visualized. ABDOMEN and PELVIS: Intraperitoneal space: Unremarkable. No free air. No significant fluid collection. Bones/joints: Degenerative changes of the spine. Multilevel posterior lumbar fusion and laminectomies. No acute fracture. No dislocation. Soft tissues: Unremarkable. Vasculature: Atherosclerotic changes of the aorta. No abdominal aortic aneurysm. Lymph nodes: Unremarkable. No enlarged lymph nodes. IMPRESSION: 1. Cholecystectomy. 2. Wall thickening of the urinary bladder measuring up to 7 mm, concerning for UTI. Urinalysis recommended. 3. Multilevel posterior lumbar fusion and laminectomies. 4. Diverticulosis, without acute diverticulitis. No small bowel obstruction. No free intraperitoneal air. Electronically signed by: Clemente Flores MD 03/19/23 00:[address] 03/19/23 00:44 CR Exam(s): CT HEAD Without Contrast EXAM: CT Head Without Intravenous Contrast CLINICAL HISTORY: Reason for exam: r/o bleed. TECHNIQUE: Axial computed tomography images of the head/brain without intravenous contrast. CTDI is 36.67 mGy and DLP is 625.8 mGy-cm. Automated exposure control was utilized for the study. A dose lowering technique was utilized adhering to the principles of ALARA. COMPARISON: Comparison made to prior head CT from January 20, 2023. FINDINGS: Brain: Unremarkable. No hemorrhage. No significant white matter disease. No edema. Ventricles: Unremarkable. No ventriculomegaly. Bones/joints: Remote left lamina papyracea fracture deformity. No acute fracture. Soft tissues: Bilateral lens replacements. Sinuses: Unremarkable as visualized. No acute sinusitis. Mastoid air cells: Unremarkable as visualized. No mastoid effusion. IMPRESSION: No evidence of acute intracranial pathology. Communications: Call Doctor Stroke Electronically signed by: Shobha Coffman MD 03/19/23 01:51 AM Ankle X-Ray 03/23/23 10:42 XR ankle RT 2V HISTORY: 87 years-old Male evaluate septic arthritis chronic right ankle pain COMPARISON: Right foot radiograph 12/05/2021 TECHNIQUE: 2 views of the right ankle FINDINGS: Arterial calcifications. Moderate sized plantar calcaneal enthesophyte. 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 No acute fracture, dislocation or osteochondral defect identified. Mild to moderate soft tissue swelling. IMPRESSION: 1. No acute fracture, dislocation or acute osseous erosion. 2. Mild to moderate osteoarthritis. ACT 112: Negative or not required by law. The above report was generated using voice recognition software. It may contain grammatical, syntax or spelling errors. Electronically signed by: Pj Fernández M.D. 03/23/2023 11:53 AM Knee X-Ray 03/23/23 10:42 XR knee LT 1 or 2V routine CLINICAL HISTORY: evaluate septic arthritis TECHNIQUE: 2 views of the left knee were obtained. Comparison: None available at the time of this dictation. FINDINGS: There is no evidence of an acute fracture. Patient is status post total knee arthroplasty. No perihardware lucency or hardware fracture is seen. No joint ef fusion is seen. Vascular calcifications are noted. IMPRESSION: No significant joint effusion is seen. No bony abnormality in this post arthroplasty patient. ACT 112: Negative or not required by law. Electronically signed by: Dano West M.D. 03/23/2023 11:41 AM Renal Ultrasound 03/25/23 12:35 RENAL ULTRASOUND HISTORY: Acute kidney injury [facility] COMPARISON: CT 03/18/2023 FINDINGS: Right kidney: 12.3 x 5.7 x 6.1 cm. No hydronephrosis. Diffuse cortical thinning. Left kidney: 12.9 x 6.4 x 5.5 cm. No hydronephrosis. Diffuse cortical thinning. 2.2 cm cyst of the inferior pole. Bladder: Wall thickening and trabeculation with partial distention. The bilateral ureteral jets were identified. Trace left pleural effusion. The spleen measures 13 cm. IMPRESSION: 1. Cortical thinning of the kidneys without hydronephrosis. 2. Unchanged urinary bladder wall thickening with reticulation. Correlate with urinalysis. ACT 112: Negative or not required by law. Electronically signed by: Pj Fernández M.D. 03/25/2023 5:55 PM Venous Doppler Study 03/25/23 15:39 BILATERAL LOWER EXTREMITY VENOUS DOPPLER HISTORY: Acute pain and swelling of the right lower extremity RLE Swelling COMPARISON STUDY: None. FINDINGS: There is normal compressibility, flow, and augmentation within the bilateral lower extremity deep venous systems. 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 Subcutaneous edema. IMPRESSION: No acute DVT within the right or left lower extremity. ACT 112: Negative or not required by law. Electronically signed by: Pj Fernández M.D. 03/25/2023 5:49 PM Foot X-Ray 03/27/23 14:41 XR foot RT 2V CLINICAL HISTORY: R 2nd digit pain TECHNIQUE: 3 views of the right foot were obtained. Comparison: Comparison is made to right foot radiographs 12/05/2021 and MRI right foot 12/15/2021 FINDINGS: Demineralization is seen at the second digit proximal interphalangeal joint. No focal erosion is definitely seen within the limitations of technique. No fracture is seen. Degenerative changes are seen throughout the foot. Soft tissue swelling is seen about the foot. Vascular calcifications are seen. IMPRESSION: Degenerative changes are seen with focal demineralization at the second digit proximal interphalangeal joint. If there is concern for osteomyelitis, MRI can be performed as a more sensitive modality. There is no radiographic evidence of acute fracture. ACT 112: Negative or not required by law. Electronically signed by: Dano West M.D. 03/27/2023 7:44 PM Chest X-Ray 04/04/23 11:08 XR chest 1V portable HISTORY: Left PICC line placement COMPARISON: Chest 03/18/2023. FINDINGS: Interval placement of a left-sided PICC which terminates in the expected location of the SVC. No pneumothorax. No pleural effusions. The cardiac silhouette remains mildly enlarged. Mild interstitial thickening persists. No new focal lung consolidations to suggest a pneumonia. There are poststernotomy changes. Degenerative changes within the shoulders. IMPRESSION: 1. The left PICC terminates in the SVC. 2. Cardiomegaly and mild interstitial thickening persists. ACT 112: Negative or not required by law. Electronically signed by: Otoniel Olivarez M.D. 04/04/2023 12:18 PM Microbiology 03/25/23 09:08 Blood Aerobic Blood Culture - Final No growth in Aerobic bottle after 5 days. 03/25/23 09:08 Blood Anaerobic Blood Culture - Final No growth in Anaerobic bottle after 5 days. 03/25/23 09:03 Blood Aerobic Blood Culture - Final No growth in Aerobic bottle after 5 days. 03/25/23 09:03 Blood Anaerobic Blood Culture - Final No growth in Anaerobic bottle after 5 days. 03/20/23 19:32 Blood Aerobic Blood Culture - Final Enterococcus faecalis 03/20/23 19:32 Blood Anaerobic Blood Culture - Final No growth in Anaerobic bottle after 5 days. 03/22/23 09:31 Blood Aerobic Blood Culture - Final No growth in Aerobic bottle after 5 days. 03/22/23 09:31 Blood Anaerobic Blood Culture - Final No growth in Anaerobic bottle after 5 days. 03/22/23 09:36 Blood Aerobic Blood Culture - Final No growth in Aerobic bottle after 5 days. 03/22/23 09:36 Blood Anaerobic Blood Culture - Final No growth in Anaerobic bottle after 5 days. 03/20/23 19:30 Blood Aerobic Blood Culture - Final No growth in Aerobic bottle after 5 days. 03/20/23 19:30 Blood Anaerobic Blood Culture - Final No growth in Anaerobic bottle after 5 days. 03/18/23 20:17 Blood Aerobic Blood Culture - Final Enterococcus faecalis 03/18/23 20:17 Blood Anaerobic Blood Culture - Final Enterococcus faecalis 03/18/23 20:17 Blood Aerobic Blood Culture - Final Enterococcus faecalis 03/18/23 20:17 Blood Anaerobic Blood Culture - Final Enterococcus faecalis Labs 03/18/23 03/18/23 03/18/23 20:17 20:55 22:30 WBC 16.84 H RBC 3.25 L Hgb 10.0 L Hct 29.8 L MCV 91.7 MCH 30.8 MCHC 33.6 RDW Std Deviation 51.2 H RDW Coeff of Adrian 15.2 H Plt Count 150 MPV 9.7 Immature Gran % (Auto) 0.5 Neut % (Auto) 81.7 Lymph % (Auto) 12.3 [place] % (Auto) 5.2 Eos % (Auto) 0.1 Baso % (Auto) 0.2 Neut # (Auto) 13.77 H Lymph # (Auto) 2.07 [place] # (Auto) 0.87 H Eos # (Auto) 0.01 Baso # (Auto) 0.03 Immature Gran # (Auto) 0.09 PT 11.7 INR 1.1 APTT 22.2 PTT Ratio 0.8 VBG pH 7.37 VBG pCO2 44 VBG pO2 41 VBG HCO3 25 VBG O2 Saturation 68.0 VBG Base Excess -0.2 Sodium 135 L Potassium 4.8 Chloride 101 Carbon Dioxide 28 Anion Gap 6 BUN 45 H Creatinine 2.90 H Est Cr Clr Drug Dosing 22.1 Est GFR ( Amer) 21.6 Est GFR (Non-Af Amer) 18.6 BUN/Creatinine Ratio 15.5 Glucose 159 H POC Glucose Lactate 2.4 H* Calcium 9.0 Phosphorus Magnesium 1.9 Iron TIBC Unsaturated IBC Transferrin % Sat Ferritin Total Bilirubin 0.6 Direct Bilirubin 0.2 AST 27 ALT 14 Alkaline Phosphatase 104 Troponin I High Sens 72.0 H* Total Protein 6.5 Albumin 3.2 L Globulin Albumin/Globulin Ratio Procalcitonin 28.51 H Urine Color Yellow Urine Appearance Clear Urine pH 7.5 Ur Specific [place] 1.013 Urine Protein 3+ H Urine Glucose (UA) Negative Urine Ketones Negative Urine Blood Negative Urine Nitrite Negative Urine Bilirubin Negative Urine Urobilinogen Negative Ur Leukocyte Esterase Negative Urine WBC (Auto) 1-5 Urine RBC (Auto) 0-4 U Hyaline Cast (Auto) 10-30 H U Epithel Cells (Auto) 10-20 H Urine Bacteria (Auto) Negative Ur Renal Epithelial Cell Granular Casts Urine Yeast Urine Sperm Ur Random Creatinine Ur Random Sodium Complement C3 Complement C4 Tot Complement (CH50) Adenovirus (PCR) Not Detected B. pertussis DNA (PCR) Not Detected B.parapertussis DNA PCR Not Detected C. pneumoniae DNA (PCR) Not Detected Coronavirus OC43 (PCR) Not Detected Coronavirus HKU1 (PCR) Not Detected Coronavirus 229E (PCR) Not Detected SARS-CoV-2 (PCR) Not Detected Coronavirus NL63 (PCR) Not Detected Enterococc faecalis PCR DETECTED A Human Metapneumovir PCR Not Detected Influenza Type A (PCR) Not Detected Influenza Type B (PCR) Not Detected M. pneumoniae (PCR) Not Detected Parainfluenza 1 (PCR) Not Detected Parainfluenza 2 (PCR) Not Detected Parainfluenza 3 (PCR) Not Detected Parainfluenza 4 (PCR) Not Detected RSV (PCR) Not Detected Entero/Rhino (PCR) Not Detected SARS-CoV-2 RNA (LEON) [place]/B-Vanco Res Genes VRE Not Detected Bld Cult ID Panel PCR See PCR Comment 03/18/23 03/19/23 03/19/23 22:44 07:26 11:21 WBC 11.05 H RBC 2.83 L Hgb 8.6 L Hct 25.8 L MCV 91.2 MCH 30.4 MCHC 33.3 RDW Std Deviation 51.4 H RDW Coeff of Adrian 15.4 H Plt Count 132 MPV 9.3 L Immature Gran % (Auto) 0.6 Neut % (Auto) 70.3 Lymph % (Auto) 20.7 [place] % (Auto) 7.3 Eos % (Auto) 0.8 Baso % (Auto) 0.3 Neut # (Auto) 7.76 H Lymph # (Auto) 2.29 [place] # (Auto) 0.81 H Eos # (Auto) 0.09 Baso # (Auto) 0.03 Immature Gran # (Auto) 0.07 PT INR APTT PTT Ratio VBG pH VBG pCO2 VBG pO2 VBG HCO3 VBG O2 Saturation VBG Base Excess Sodium 139 Potassium 4.1 Chloride 106 Carbon Dioxide 26 Anion Gap 7 BUN 47 H Creatinine 2.61 H Est Cr Clr Drug Dosing 20.9 Est GFR ( Amer) 24.5 Est GFR (Non-Af Amer) 21.1 BUN/Creatinine Ratio 18.0 Glucose 123 H POC Glucose 123 H 145 H Lactate 1.6 Calcium 8.5 L Phosphorus Magnesium 2.0 Iron TIBC Unsaturated IBC Transferrin % Sat Ferritin Total Bilirubin 0.4 Direct Bilirubin AST 26 ALT 13 Alkaline Phosphatase 80 Troponin I High Sens 63.0 H* Total Protein 5.7 L Albumin 2.8 L Globulin 2.9 Albumin/Globulin Ratio 1.0 Procalcitonin 27.83 H Urine Color Urine Appearance Urine pH Ur Specific [place] Urine Protein Urine Glucose (UA) Urine Ketones Urine Blood Urine Nitrite Urine Bilirubin Urine Urobilinogen Ur Leukocyte Esterase Urine WBC (Auto) Urine RBC (Auto) U Hyaline Cast (Auto) U Epithel Cells (Auto) Urine Bacteria (Auto) Ur Renal Epithelial Cell Granular Casts Urine Yeast Urine Sperm Ur Random Creatinine Ur Random Sodium Complement C3 Complement C4 Tot Complement (CH50) Adenovirus (PCR) B. pertussis DNA (PCR) B.parapertussis DNA PCR C. pneumoniae DNA (PCR) Coronavirus OC43 (PCR) Coronavirus HKU1 (PCR) Coronavirus 229E (PCR) SARS-CoV-2 (PCR) Coronavirus NL63 (PCR) Enterococc faecalis PCR Human Metapneumovir PCR Influenza Type A (PCR) Influenza Type B (PCR) M. pneumoniae (PCR) Parainfluenza 1 (PCR) Parainfluenza 2 (PCR) Parainfluenza 3 (PCR) Parainfluenza 4 (PCR) RSV (PCR) Entero/Rhino (PCR) SARS-CoV-2 RNA (LEON) [place]/B-Vanco Res Genes Bld Cult ID Panel PCR 03/19/23 03/19/23 03/20/23 16:17 20:23 07:10 WBC 9.65 RBC 3.27 L Hgb 9.9 L Hct 29.3 L MCV 89.6 MCH 30.3 MCHC 33.8 RDW Std Deviation 50.0 H RDW Coeff of Adrian 15.1 H Plt Count 156 MPV 9.3 L Immature Gran % (Auto) 0.7 Neut % (Auto) 68.9 Lymph % (Auto) 21.2 [place] % (Auto) 7.6 Eos % (Auto) 1.3 Baso % (Auto) 0.3 Neut # (Auto) 6.64 H Lymph # (Auto) 2.05 [place] # (Auto) 0.73 H Eos # (Auto) 0.13 Baso # (Auto) 0.03 Immature Gran # (Auto) 0.07 PT INR APTT PTT Ratio VBG pH VBG pCO2 VBG pO2 VBG HCO3 VBG O2 Saturation VBG Base Excess Sodium 140 Potassium 3.8 Chloride 107 Carbon Dioxide 26 Anion Gap 7 BUN 35 H Creatinine 2.16 H D Est Cr Clr Drug Dosing 25.7 Est GFR ( Amer) 30.8 Est GFR (Non-Af Amer) 26.6 BUN/Creatinine Ratio 16.2 Glucose 55 L POC Glucose 132 H 100 H Lactate Calcium 8.8 Phosphorus Magnesium 2.0 Iron TIBC Unsaturated IBC Transferrin % Sat Ferritin Total Bilirubin 0.3 Direct Bilirubin AST 24 ALT 13 Alkaline Phosphatase 81 Troponin I High Sens Total Protein 6.3 Albumin 3.1 L Globulin 3.2 Albumin/Globulin Ratio 1.0 Procalcitonin 20.25 H Urine Color Urine Appearance Urine pH Ur Specific [place] Urine Protein Urine Glucose (UA) Urine Ketones Urine Blood Urine Nitrite Urine Bilirubin Urine Urobilinogen Ur Leukocyte Esterase Urine WBC (Auto) Urine RBC (Auto) U Hyaline Cast (Auto) U Epithel Cells (Auto) Urine Bacteria (Auto) Ur Renal Epithelial Cell Granular Casts Urine Yeast Urine Sperm Ur Random Creatinine Ur Random Sodium Complement C3 Complement C4 Tot Complement (CH50) Adenovirus (PCR) B. pertussis DNA (PCR) B.parapertussis DNA PCR C. pneumoniae DNA (PCR) Coronavirus OC43 (PCR) Coronavirus HKU1 (PCR) Coronavirus 229E (PCR) SARS-CoV-2 (PCR) Coronavirus NL63 (PCR) Enterococc faecalis PCR Human Metapneumovir PCR Influenza Type A (PCR) Influenza Type B (PCR) M. pneumoniae (PCR) Parainfluenza 1 (PCR) Parainfluenza 2 (PCR) Parainfluenza 3 (PCR) Parainfluenza 4 (PCR) RSV (PCR) Entero/Rhino (PCR) SARS-CoV-2 RNA (LEON) [place]/B-Vanco Res Genes Bld Cult ID Panel PCR 03/20/23 03/20/23 03/20/23 07:32 07:33 07:46 WBC RBC Hgb Hct MCV MCH MCHC RDW Std Deviation RDW Coeff of [place] Plt Count MPV Immature Gran % (Auto) Neut % (Auto) Lymph % (Auto) [place] % (Auto) Eos % (Auto) Baso % (Auto) Neut # (Auto) Lymph # (Auto) [place] # (Auto) Eos # (Auto) Baso # (Auto) Immature Gran # (Auto) PT INR APTT PTT Ratio VBG pH VBG pCO2 VBG pO2 VBG HCO3 VBG O2 Saturation VBG Base Excess Sodium Potassium Chloride Carbon Dioxide Anion Gap BUN Creatinine Est Cr Clr Drug Dosing Est GFR ( Amer) Est GFR (Non-Af Amer) BUN/Creatinine Ratio Glucose POC Glucose 64 L* 67 L* 70 Lactate Calcium Phosphorus Magnesium Iron TIBC Unsaturated IBC Transferrin % Sat Ferritin Total Bilirubin Direct Bilirubin AST ALT Alkaline Phosphatase Troponin I High Sens Total Protein Albumin Globulin Albumin/Globulin Ratio Procalcitonin Urine Color Urine Appearance Urine pH Ur Specific [place] Urine Protein Urine Glucose (UA) Urine Ketones Urine Blood Urine Nitrite Urine Bilirubin Urine Urobilinogen Ur Leukocyte Esterase Urine WBC (Auto) Urine RBC (Auto) U Hyaline Cast (Auto) U Epithel Cells (Auto) Urine Bacteria (Auto) Ur Renal Epithelial Cell Granular Casts Urine Yeast Urine Sperm Ur Random Creatinine Ur Random Sodium Complement C3 Complement C4 Tot Complement (CH50) Adenovirus (PCR) B. pertussis DNA (PCR) B.parapertussis DNA PCR C. pneumoniae DNA (PCR) Coronavirus OC43 (PCR) Coronavirus HKU1 (PCR) Coronavirus 229E (PCR) SARS-CoV-2 (PCR) Coronavirus NL63 (PCR) Enterococc faecalis PCR Human Metapneumovir PCR Influenza Type A (PCR) Influenza Type B (PCR) M. pneumoniae (PCR) Parainfluenza 1 (PCR) Parainfluenza 2 (PCR) Parainfluenza 3 (PCR) Parainfluenza 4 (PCR) RSV (PCR) Entero/Rhino (PCR) SARS-CoV-2 RNA (LEON) [place]/B-Vanco Res Genes Bld Cult ID Panel PCR 03/20/23 03/20/23 03/20/23 11:32 16:23 20:09 WBC RBC Hgb Hct MCV MCH MCHC RDW Std Deviation RDW Coeff of [place] Plt Count MPV Immature Gran % (Auto) Neut % (Auto) Lymph % (Auto) [place] % (Auto) Eos % (Auto) Baso % (Auto) Neut # (Auto) Lymph # (Auto) [place] # (Auto) Eos # (Auto) Baso # (Auto) Immature Gran # (Auto) PT INR APTT PTT Ratio VBG pH VBG pCO2 VBG pO2 VBG HCO3 VBG O2 Saturation VBG Base Excess Sodium Potassium Chloride Carbon Dioxide Anion Gap BUN Creatinine Est Cr Clr Drug Dosing Est GFR ( Amer) Est GFR (Non-Af Amer) BUN/Creatinine Ratio Glucose POC Glucose 140 H 163 H 125 H Lactate Calcium Phosphorus Magnesium Iron TIBC Unsaturated IBC Transferrin % Sat Ferritin Total Bilirubin Direct Bilirubin AST ALT Alkaline Phosphatase Troponin I High Sens Total Protein Albumin Globulin Albumin/Globulin Ratio Procalcitonin Urine Color Urine Appearance Urine pH Ur Specific [place] Urine Protein Urine Glucose (UA) Urine Ketones Urine Blood Urine Nitrite Urine Bilirubin Urine Urobilinogen Ur Leukocyte Esterase Urine WBC (Auto) Urine RBC (Auto) U Hyaline Cast (Auto) U Epithel Cells (Auto) Urine Bacteria (Auto) Ur Renal Epithelial Cell Granular Casts Urine Yeast Urine Sperm Ur Random Creatinine Ur Random Sodium Complement C3 Complement C4 Tot Complement (CH50) Adenovirus (PCR) B. pertussis DNA (PCR) B.parapertussis DNA PCR C. pneumoniae DNA (PCR) Coronavirus OC43 (PCR) Coronavirus HKU1 (PCR) Coronavirus 229E (PCR) SARS-CoV-2 (PCR) Coronavirus NL63 (PCR) Enterococc faecalis PCR Human Metapneumovir PCR Influenza Type A (PCR) Influenza Type B (PCR) M. pneumoniae (PCR) Parainfluenza 1 (PCR) Parainfluenza 2 (PCR) Parainfluenza 3 (PCR) Parainfluenza 4 (PCR) RSV (PCR) Entero/Rhino (PCR) SARS-CoV-2 RNA (LEON) [place]/B-Vanco Res Genes Bld Cult ID Panel PCR 03/21/23 03/21/23 03/21/23 06:17 08:12 12:10 WBC 9.66 RBC 3.29 L Hgb 10.0 L Hct 29.8 L MCV 90.6 MCH 30.4 MCHC 33.6 RDW Std Deviation 49.0 H RDW Coeff of Adrian 14.8 H Plt Count 146 MPV 9.6 Immature Gran % (Auto) Neut % (Auto) Lymph % (Auto) [place] % (Auto) Eos % (Auto) Baso % (Auto) Neut # (Auto) Lymph # (Auto) [place] # (Auto) Eos # (Auto) Baso # (Auto) Immature Gran # (Auto) PT INR APTT PTT Ratio VBG pH VBG pCO2 VBG pO2 VBG HCO3 VBG O2 Saturation VBG Base Excess Sodium 136 Potassium 3.5 Chloride 104 Carbon Dioxide 25 Anion Gap 7 BUN 26 H Creatinine 1.95 H Est Cr Clr Drug Dosing 27.8 Est GFR ( Amer) 34.8 Est GFR (Non-Af Amer) 30.0 BUN/Creatinine Ratio 13.3 Glucose 57 L POC Glucose 68 L* 124 H Lactate Calcium 8.7 Phosphorus Magnesium 2.0 Iron TIBC Unsaturated IBC Transferrin % Sat Ferritin Total Bilirubin Direct Bilirubin AST ALT Alkaline Phosphatase Troponin I High Sens Total Protein Albumin Globulin Albumin/Globulin Ratio Procalcitonin Urine Color Urine Appearance Urine pH Ur Specific [place] Urine Protein Urine Glucose (UA) Urine Ketones Urine Blood Urine Nitrite Urine Bilirubin Urine Urobilinogen Ur Leukocyte Esterase Urine WBC (Auto) Urine RBC (Auto) U Hyaline Cast (Auto) U Epithel Cells (Auto) Urine Bacteria (Auto) Ur Renal Epithelial Cell Granular Casts Urine Yeast Urine Sperm Ur Random Creatinine Ur Random Sodium Complement C3 Complement C4 Tot Complement (CH50) Adenovirus (PCR) B. pertussis DNA (PCR) B.parapertussis DNA PCR C. pneumoniae DNA (PCR) Coronavirus OC43 (PCR) Coronavirus HKU1 (PCR) Coronavirus 229E (PCR) SARS-CoV-2 (PCR) Coronavirus NL63 (PCR) Enterococc faecalis PCR Human Metapneumovir PCR Influenza Type A (PCR) Influenza Type B (PCR) M. pneumoniae (PCR) Parainfluenza 1 (PCR) Parainfluenza 2 (PCR) Parainfluenza 3 (PCR) Parainfluenza 4 (PCR) RSV (PCR) Entero/Rhino (PCR) SARS-CoV-2 RNA (LEON) [place]/B-Vanco Res Genes Bld Cult ID Panel PCR 03/21/23 03/21/23 03/22/23 16:21 20:27 06:47 WBC 10.24 RBC 3.12 L Hgb 9.3 L Hct 28.0 L MCV 89.7 MCH 29.8 MCHC 33.2 RDW Std Deviation 48.1 H RDW Coeff of Adrian 14.7 H Plt Count 139 MPV 9.6 Immature Gran % (Auto) Neut % (Auto) Lymph % (Auto) [place] % (Auto) Eos % (Auto) Baso % (Auto) Neut # (Auto) Lymph # (Auto) [place] # (Auto) Eos # (Auto) Baso # (Auto) Immature Gran # (Auto) PT INR APTT PTT Ratio VBG pH VBG pCO2 VBG pO2 VBG HCO3 VBG O2 Saturation VBG Base Excess Sodium 137 Potassium 3.7 Chloride 105 Carbon Dioxide 22 Anion Gap 10 BUN 30 H Creatinine 2.12 H Est Cr Clr Drug Dosing 25.6 Est GFR ( Amer) 31.5 Est GFR (Non-Af Amer) 27.2 BUN/Creatinine Ratio 14.2 Glucose 197 H POC Glucose 123 H 181 H Lactate Calcium 8.5 L Phosphorus Magnesium Iron TIBC Unsaturated IBC Transferrin % Sat Ferritin Total Bilirubin Direct Bilirubin AST ALT Alkaline Phosphatase Troponin I High Sens Total Protein Albumin Globulin Albumin/Globulin Ratio Procalcitonin Urine Color Urine Appearance Urine pH Ur Specific [place] Urine Protein Urine Glucose (UA) Urine Ketones Urine Blood Urine Nitrite Urine Bilirubin Urine Urobilinogen Ur Leukocyte Esterase Urine WBC (Auto) Urine RBC (Auto) U Hyaline Cast (Auto) U Epithel Cells (Auto) Urine Bacteria (Auto) Ur Renal Epithelial Cell Granular Casts Urine Yeast Urine Sperm Ur Random Creatinine Ur Random Sodium Complement C3 Complement C4 Tot Complement (CH50) Adenovirus (PCR) B. pertussis DNA (PCR) B.parapertussis DNA PCR C. pneumoniae DNA (PCR) Coronavirus OC43 (PCR) Coronavirus HKU1 (PCR) Coronavirus 229E (PCR) SARS-CoV-2 (PCR) Coronavirus NL63 (PCR) Enterococc faecalis PCR Human Metapneumovir PCR Influenza Type A (PCR) Influenza Type B (PCR) M. pneumoniae (PCR) Parainfluenza 1 (PCR) Parainfluenza 2 (PCR) Parainfluenza 3 (PCR) Parainfluenza 4 (PCR) RSV (PCR) Entero/Rhino (PCR) SARS-CoV-2 RNA (LEON) [place]/B-Vanco Res Genes Bld Cult ID Panel PCR 03/22/23 03/22/23 03/22/23 07:24 11:24 16:29 WBC RBC Hgb Hct MCV MCH MCHC RDW Std Deviation RDW Coeff of [place] Plt Count MPV Immature Gran % (Auto) Neut % (Auto) Lymph % (Auto) [place] % (Auto) Eos % (Auto) Baso % (Auto) Neut # (Auto) Lymph # (Auto) [place] # (Auto) Eos # (Auto) Baso # (Auto) Immature Gran # (Auto) PT INR APTT PTT Ratio VBG pH VBG pCO2 VBG pO2 VBG HCO3 VBG O2 Saturation VBG Base Excess Sodium Potassium Chloride Carbon Dioxide Anion Gap BUN Creatinine Est Cr Clr Drug Dosing Est GFR ( Amer) Est GFR (Non-Af Amer) BUN/Creatinine Ratio Glucose POC Glucose 203 H 161 H 139 H Lactate Calcium Phosphorus Magnesium Iron TIBC Unsaturated IBC Transferrin % Sat Ferritin Total Bilirubin Direct Bilirubin AST ALT Alkaline Phosphatase Troponin I High Sens Total Protein Albumin Globulin Albumin/Globulin Ratio Procalcitonin Urine Color Urine Appearance Urine pH Ur Specific [place] Urine Protein Urine Glucose (UA) Urine Ketones Urine Blood Urine Nitrite Urine Bilirubin Urine Urobilinogen Ur Leukocyte Esterase Urine WBC (Auto) Urine RBC (Auto) U Hyaline Cast (Auto) U Epithel Cells (Auto) Urine Bacteria (Auto) Ur Renal Epithelial Cell Granular Casts Urine Yeast Urine Sperm Ur Random Creatinine Ur Random Sodium Complement C3 Complement C4 Tot Complement (CH50) Adenovirus (PCR) B. pertussis DNA (PCR) B.parapertussis DNA PCR C. pneumoniae DNA (PCR) Coronavirus OC43 (PCR) Coronavirus HKU1 (PCR) Coronavirus 229E (PCR) SARS-CoV-2 (PCR) Coronavirus NL63 (PCR) Enterococc faecalis PCR Human Metapneumovir PCR Influenza Type A (PCR) Influenza Type B (PCR) M. pneumoniae (PCR) Parainfluenza 1 (PCR) Parainfluenza 2 (PCR) Parainfluenza 3 (PCR) Parainfluenza 4 (PCR) RSV (PCR) Entero/Rhino (PCR) SARS-CoV-2 RNA (LEON) [place]/B-Vanco Res Genes Bld Cult ID Panel PCR 03/22/23 03/23/23 03/23/23 19:59 06:59 07:30 WBC 10.10 RBC 2.93 L Hgb 8.8 L Hct 25.9 L MCV 88.4 MCH 30.0 MCHC 34.0 RDW Std Deviation 47.4 H RDW Coeff of Adrian 14.6 H Plt Count 135 MPV 9.6 Immature Gran % (Auto) Neut % (Auto) Lymph % (Auto) [place] % (Auto) Eos % (Auto) Baso % (Auto) Neut # (Auto) Lymph # (Auto) [place] # (Auto) Eos # (Auto) Baso # (Auto) Immature Gran # (Auto) PT INR APTT PTT Ratio VBG pH VBG pCO2 VBG pO2 VBG HCO3 VBG O2 Saturation VBG Base Excess Sodium 137 Potassium 3.7 Chloride 105 Carbon Dioxide 22 Anion Gap 10 BUN 34 H Creatinine 2.22 H Est Cr Clr Drug Dosing 25.0 Est GFR ( Amer) 29.8 Est GFR (Non-Af Amer) 25.7 BUN/Creatinine Ratio 15.3 Glucose 148 H POC Glucose 200 H 163 H Lactate Calcium 8.0 L Phosphorus Magnesium Iron TIBC Unsaturated IBC Transferrin % Sat Ferritin Total Bilirubin Direct Bilirubin AST ALT Alkaline Phosphatase Troponin I High Sens Total Protein Albumin Globulin Albumin/Globulin Ratio Procalcitonin Urine Color Urine Appearance Urine pH Ur Specific [place] Urine Protein Urine Glucose (UA) Urine Ketones Urine Blood Urine Nitrite Urine Bilirubin Urine Urobilinogen Ur Leukocyte Esterase Urine WBC (Auto) Urine RBC (Auto) U Hyaline Cast (Auto) U Epithel Cells (Auto) Urine Bacteria (Auto) Ur Renal Epithelial Cell Granular Casts Urine Yeast Urine Sperm Ur Random Creatinine Ur Random Sodium Complement C3 Complement C4 Tot Complement (CH50) Adenovirus (PCR) B. pertussis DNA (PCR) B.parapertussis DNA PCR C. pneumoniae DNA (PCR) Coronavirus OC43 (PCR) Coronavirus HKU1 (PCR) Coronavirus 229E (PCR) SARS-CoV-2 (PCR) Coronavirus NL63 (PCR) Enterococc faecalis PCR Human Metapneumovir PCR Influenza Type A (PCR) Influenza Type B (PCR) M. pneumoniae (PCR) Parainfluenza 1 (PCR) Parainfluenza 2 (PCR) Parainfluenza 3 (PCR) Parainfluenza 4 (PCR) RSV (PCR) Entero/Rhino (PCR) SARS-CoV-2 RNA (LEON) [place]/B-Vanco Res Genes Bld Cult ID Panel PCR 03/23/23 03/23/23 03/23/23 11:34 16:31 19:52 WBC RBC Hgb Hct MCV MCH MCHC RDW Std Deviation RDW Coeff of [place] Plt Count MPV Immature Gran % (Auto) Neut % (Auto) Lymph % (Auto) [place] % (Auto) Eos % (Auto) Baso % (Auto) Neut # (Auto) Lymph # (Auto) [place] # (Auto) Eos # (Auto) Baso # (Auto) Immature Gran # (Auto) PT INR APTT PTT Ratio VBG pH VBG pCO2 VBG pO2 VBG HCO3 VBG O2 Saturation VBG Base Excess Sodium Potassium Chloride Carbon Dioxide Anion Gap BUN Creatinine Est Cr Clr Drug Dosing Est GFR ( Amer) Est GFR (Non-Af Amer) BUN/Creatinine Ratio Glucose POC Glucose 173 H 274 H 243 H Lactate Calcium Phosphorus Magnesium Iron TIBC Unsaturated IBC Transferrin % Sat Ferritin Total Bilirubin Direct Bilirubin AST ALT Alkaline Phosphatase Troponin I High Sens Total Protein Albumin Globulin Albumin/Globulin Ratio Procalcitonin Urine Color Urine Appearance Urine pH Ur Specific [place] Urine Protein Urine Glucose (UA) Urine Ketones Urine Blood Urine Nitrite Urine Bilirubin Urine Urobilinogen Ur Leukocyte Esterase Urine WBC (Auto) Urine RBC (Auto) U Hyaline Cast (Auto) U Epithel Cells (Auto) Urine Bacteria (Auto) Ur Renal Epithelial Cell Granular Casts Urine Yeast Urine Sperm Ur Random Creatinine Ur Random Sodium Complement C3 Complement C4 Tot Complement (CH50) Adenovirus (PCR) B. pertussis DNA (PCR) B.parapertussis DNA PCR C. pneumoniae DNA (PCR) Coronavirus OC43 (PCR) Coronavirus HKU1 (PCR) Coronavirus 229E (PCR) SARS-CoV-2 (PCR) Coronavirus NL63 (PCR) Enterococc faecalis PCR Human Metapneumovir PCR Influenza Type A (PCR) Influenza Type B (PCR) M. pneumoniae (PCR) Parainfluenza 1 (PCR) Parainfluenza 2 (PCR) Parainfluenza 3 (PCR) Parainfluenza 4 (PCR) RSV (PCR) Entero/Rhino (PCR) SARS-CoV-2 RNA (LEON) [place]/B-Vanco Res Genes Bld Cult ID Panel PCR 03/24/23 03/24/23 03/24/23 07:10 07:37 11:06 WBC 8.97 RBC 2.96 L Hgb 8.8 L Hct 26.6 L MCV 89.9 MCH 29.7 MCHC 33.1 RDW Std Deviation 48.4 H RDW Coeff of Adrian 14.6 H Plt Count 174 MPV 9.7 Immature Gran % (Auto) Neut % (Auto) Lymph % (Auto) [place] % (Auto) Eos % (Auto) Baso % (Auto) Neut # (Auto) Lymph # (Auto) [place] # (Auto) Eos # (Auto) Baso # (Auto) Immature Gran # (Auto) PT INR APTT PTT Ratio VBG pH VBG pCO2 VBG pO2 VBG HCO3 VBG O2 Saturation VBG Base Excess Sodium 135 L Potassium 3.9 Chloride 104 Carbon Dioxide 23 Anion Gap 8 BUN 39 H Creatinine 2.92 H D Est Cr Clr Drug Dosing 26.0 Est GFR ( Amer) 21.4 Est GFR (Non-Af Amer) 18.4 BUN/Creatinine Ratio 13.4 Glucose 221 H POC Glucose 231 H 309 H* Lactate Calcium 8.2 L Phosphorus Magnesium Iron TIBC Unsaturated IBC Transferrin % Sat Ferritin Total Bilirubin Direct Bilirubin AST ALT Alkaline Phosphatase Troponin I High Sens Total Protein Albumin Globulin Albumin/Globulin Ratio Procalcitonin Urine Color Urine Appearance Urine pH Ur Specific [place] Urine Protein Urine Glucose (UA) Urine Ketones Urine Blood Urine Nitrite Urine Bilirubin Urine Urobilinogen Ur Leukocyte Esterase Urine WBC (Auto) Urine RBC (Auto) U Hyaline Cast (Auto) U Epithel Cells (Auto) Urine Bacteria (Auto) Ur Renal Epithelial Cell Granular Casts Urine Yeast Urine Sperm Ur Random Creatinine Ur Random Sodium Complement C3 Complement C4 Tot Complement (CH50) Adenovirus (PCR) B. pertussis DNA (PCR) B.parapertussis DNA PCR C. pneumoniae DNA (PCR) Coronavirus OC43 (PCR) Coronavirus HKU1 (PCR) Coronavirus 229E (PCR) SARS-CoV-2 (PCR) Coronavirus NL63 (PCR) Enterococc faecalis PCR Human Metapneumovir PCR Influenza Type A (PCR) Influenza Type B (PCR) M. pneumoniae (PCR) Parainfluenza 1 (PCR) Parainfluenza 2 (PCR) Parainfluenza 3 (PCR) Parainfluenza 4 (PCR) RSV (PCR) Entero/Rhino (PCR) SARS-CoV-2 RNA (LEON) [place]/B-Vanco Res Genes Bld Cult ID Panel PCR 03/24/23 03/24/23 03/24/23 11:07 16:13 20:23 WBC RBC Hgb Hct MCV MCH MCHC RDW Std Deviation RDW Coeff of [place] Plt Count MPV Immature Gran % (Auto) Neut % (Auto) Lymph % (Auto) [place] % (Auto) Eos % (Auto) Baso % (Auto) Neut # (Auto) Lymph # (Auto) [place] # (Auto) Eos # (Auto) Baso # (Auto) Immature Gran # (Auto) PT INR APTT PTT Ratio VBG pH VBG pCO2 VBG pO2 VBG HCO3 VBG O2 Saturation VBG Base Excess Sodium Potassium Chloride Carbon Dioxide Anion Gap BUN Creatinine Est Cr Clr Drug Dosing Est GFR ( Amer) Est GFR (Non-Af Amer) BUN/Creatinine Ratio Glucose POC Glucose 299 H 93 276 H Lactate Calcium Phosphorus Magnesium Iron TIBC Unsaturated IBC Transferrin % Sat Ferritin Total Bilirubin Direct Bilirubin AST ALT Alkaline Phosphatase Troponin I High Sens Total Protein Albumin Globulin Albumin/Globulin Ratio Procalcitonin Urine Color Urine Appearance Urine pH Ur Specific [place] Urine Protein Urine Glucose (UA) Urine Ketones Urine Blood Urine Nitrite Urine Bilirubin Urine Urobilinogen Ur Leukocyte Esterase Urine WBC (Auto) Urine RBC (Auto) U Hyaline Cast (Auto) U Epithel Cells (Auto) Urine Bacteria (Auto) Ur Renal Epithelial Cell Granular Casts Urine Yeast Urine Sperm Ur Random Creatinine Ur Random Sodium Complement C3 Complement C4 Tot Complement (CH50) Adenovirus (PCR) B. pertussis DNA (PCR) B.parapertussis DNA PCR C. pneumoniae DNA (PCR) Coronavirus OC43 (PCR) Coronavirus HKU1 (PCR) Coronavirus 229E (PCR) SARS-CoV-2 (PCR) Coronavirus NL63 (PCR) Enterococc faecalis PCR Human Metapneumovir PCR Influenza Type A (PCR) Influenza Type B (PCR) M. pneumoniae (PCR) Parainfluenza 1 (PCR) Parainfluenza 2 (PCR) Parainfluenza 3 (PCR) Parainfluenza 4 (PCR) RSV (PCR) Entero/Rhino (PCR) SARS-CoV-2 RNA (LEON) [place]/B-Vanco Res Genes Bld Cult ID Panel PCR 03/25/23 03/25/23 03/25/23 06:42 07:52 12:13 WBC RBC Hgb Hct MCV MCH MCHC RDW Std Deviation RDW Coeff of [place] Plt Count MPV Immature Gran % (Auto) Neut % (Auto) Lymph % (Auto) [place] % (Auto) Eos % (Auto) Baso % (Auto) Neut # (Auto) Lymph # (Auto) [place] # (Auto) Eos # (Auto) Baso # (Auto) Immature Gran # (Auto) PT INR APTT PTT Ratio VBG pH VBG pCO2 VBG pO2 VBG HCO3 VBG O2 Saturation VBG Base Excess Sodium 136 Potassium 3.8 Chloride 104 Carbon Dioxide 22 Anion Gap 10 BUN 48 H Creatinine 3.78 H D Est Cr Clr Drug Dosing 14.7 Est GFR ( Amer) 15.6 Est GFR (Non-Af Amer) 13.5 BUN/Creatinine Ratio 12.7 Glucose 176 H POC Glucose 194 H 284 H Lactate Calcium 8.0 L Phosphorus Magnesium Iron TIBC Unsaturated IBC Transferrin % Sat Ferritin Total Bilirubin Direct Bilirubin AST ALT Alkaline Phosphatase Troponin I High Sens Total Protein Albumin Globulin Albumin/Globulin Ratio Procalcitonin Urine Color Urine Appearance Urine pH Ur Specific [place] Urine Protein Urine Glucose (UA) Urine Ketones Urine Blood Urine Nitrite Urine Bilirubin Urine Urobilinogen Ur Leukocyte Esterase Urine WBC (Auto) Urine RBC (Auto) U Hyaline Cast (Auto) U Epithel Cells (Auto) Urine Bacteria (Auto) Ur Renal Epithelial Cell Granular Casts Urine Yeast Urine Sperm Ur Random Creatinine Ur Random Sodium Complement C3 Complement C4 Tot Complement (CH50) Adenovirus (PCR) B. pertussis DNA (PCR) B.parapertussis DNA PCR C. pneumoniae DNA (PCR) Coronavirus OC43 (PCR) Coronavirus HKU1 (PCR) Coronavirus 229E (PCR) SARS-CoV-2 (PCR) Coronavirus NL63 (PCR) Enterococc faecalis PCR Human Metapneumovir PCR Influenza Type A (PCR) Influenza Type B (PCR) M. pneumoniae (PCR) Parainfluenza 1 (PCR) Parainfluenza 2 (PCR) Parainfluenza 3 (PCR) Parainfluenza 4 (PCR) RSV (PCR) Entero/Rhino (PCR) SARS-CoV-2 RNA (LEON) [place]/B-Vanco Res Genes Bld Cult ID Panel PCR 03/25/23 03/25/23 03/26/23 17:50 20:21 02:36 WBC RBC Hgb Hct MCV MCH MCHC RDW Std Deviation RDW Coeff of [place] Plt Count MPV Immature Gran % (Auto) Neut % (Auto) Lymph % (Auto) [place] % (Auto) Eos % (Auto) Baso % (Auto) Neut # (Auto) Lymph # (Auto) [place] # (Auto) Eos # (Auto) Baso # (Auto) Immature Gran # (Auto) PT INR APTT PTT Ratio VBG pH VBG pCO2 VBG pO2 VBG HCO3 VBG O2 Saturation VBG Base Excess Sodium Potassium Chloride Carbon Dioxide Anion Gap BUN Creatinine Est Cr Clr Drug Dosing Est GFR ( Amer) Est GFR (Non-Af Amer) BUN/Creatinine Ratio Glucose POC Glucose 164 H 184 H Lactate Calcium Phosphorus Magnesium Iron TIBC Unsaturated IBC Transferrin % Sat Ferritin Total Bilirubin Direct Bilirubin AST ALT Alkaline Phosphatase Troponin I High Sens Total Protein Albumin Globulin Albumin/Globulin Ratio Procalcitonin Urine Color Yellow Urine Appearance Turbid A Urine pH 5.0 Ur Specific [place] 1.022 Urine Protein 4+ H Urine Glucose (UA) Trace H Urine Ketones Negative Urine Blood Negative Urine Nitrite Negative Urine Bilirubin Negative Urine Urobilinogen Negative Ur Leukocyte Esterase Negative Urine WBC (Auto) 10-30 H Urine RBC (Auto) 0-4 U Hyaline Cast (Auto) 1-5 U Epithel Cells (Auto) >30 H Urine Bacteria (Auto) Negative Ur Renal Epithelial Cell Not Reportable Granular Casts 1-5 H Urine Yeast Budding A Urine Sperm Present A Ur Random Creatinine Ur Random Sodium Complement C3 Complement C4 Tot Complement (CH50) Adenovirus (PCR) B. pertussis DNA (PCR) B.parapertussis DNA PCR C. pneumoniae DNA (PCR) Coronavirus OC43 (PCR) Coronavirus HKU1 (PCR) Coronavirus 229E (PCR) SARS-CoV-2 (PCR) Coronavirus NL63 (PCR) Enterococc faecalis PCR Human Metapneumovir PCR Influenza Type A (PCR) Influenza Type B (PCR) M. pneumoniae (PCR) Parainfluenza 1 (PCR) Parainfluenza 2 (PCR) Parainfluenza 3 (PCR) Parainfluenza 4 (PCR) RSV (PCR) Entero/Rhino (PCR) SARS-CoV-2 RNA (LEON) [place]/B-Vanco Res Genes Bld Cult ID Panel PCR 03/26/23 03/26/23 03/26/23 03:15 08:03 08:13 WBC 7.25 RBC 2.77 L Hgb 8.1 L Hct 24.8 L MCV 89.5 MCH 29.2 MCHC 32.7 RDW Std Deviation 46.6 H RDW Coeff of Adrian 14.4 Plt Count 194 MPV 9.7 Immature Gran % (Auto) Neut % (Auto) Lymph % (Auto) [place] % (Auto) Eos % (Auto) Baso % (Auto) Neut # (Auto) Lymph # (Auto) [place] # (Auto) Eos # (Auto) Baso # (Auto) Immature Gran # (Auto) PT INR APTT PTT Ratio VBG pH VBG pCO2 VBG pO2 VBG HCO3 VBG O2 Saturation VBG Base Excess Sodium 135 L Potassium 4.1 Chloride 104 Carbon Dioxide 21 Anion Gap 10 BUN 53 H Creatinine 5.11 H* D Est Cr Clr Drug Dosing 10.9 Est GFR ( Amer) 10.9 Est GFR (Non-Af Amer) 9.4 BUN/Creatinine Ratio 10.4 Glucose 121 H POC Glucose 133 H Lactate Calcium 7.8 L Phosphorus 6.3 H Magnesium 2.1 Iron 17 L TIBC 132 L Unsaturated IBC 115 L Transferrin % Sat 13 L Ferritin 190.8 Total Bilirubin Direct Bilirubin AST ALT Alkaline Phosphatase Troponin I High Sens Total Protein Albumin 2.4 L Globulin Albumin/Globulin Ratio Procalcitonin Urine Color Urine Appearance Urine pH Ur Specific [place] Urine Protein Urine Glucose (UA) Urine Ketones Urine Blood Urine Nitrite Urine Bilirubin Urine Urobilinogen Ur Leukocyte Esterase Urine WBC (Auto) Urine RBC (Auto) U Hyaline Cast (Auto) U Epithel Cells (Auto) Urine Bacteria (Auto) Ur Renal Epithelial Cell Granular Casts Urine Yeast Urine Sperm Ur Random Creatinine 115.0 Ur Random Sodium 24 Complement C3 128 Complement C4 24 Tot Complement (CH50) 58 Adenovirus (PCR) B. pertussis DNA (PCR) B.parapertussis DNA PCR C. pneumoniae DNA (PCR) Coronavirus OC43 (PCR) Coronavirus HKU1 (PCR) Coronavirus 229E (PCR) SARS-CoV-2 (PCR) Coronavirus NL63 (PCR) Enterococc faecalis PCR Human Metapneumovir PCR Influenza Type A (PCR) Influenza Type B (PCR) M. pneumoniae (PCR) Parainfluenza 1 (PCR) Parainfluenza 2 (PCR) Parainfluenza 3 (PCR) Parainfluenza 4 (PCR) RSV (PCR) Entero/Rhino (PCR) SARS-CoV-2 RNA (LEON) [place]/B-Vanco Res Genes Bld Cult ID Panel PCR 03/26/23 03/26/23 03/26/23 11:34 16:51 21:06 WBC RBC Hgb Hct MCV MCH MCHC RDW Std Deviation RDW Coeff of [place] Plt Count MPV Immature Gran % (Auto) Neut % (Auto) Lymph % (Auto) [place] % (Auto) Eos % (Auto) Baso % (Auto) Neut # (Auto) Lymph # (Auto) [place] # (Auto) Eos # (Auto) Baso # (Auto) Immature Gran # (Auto) PT INR APTT PTT Ratio VBG pH VBG pCO2 VBG pO2 VBG HCO3 VBG O2 Saturation VBG Base Excess Sodium Potassium Chloride Carbon Dioxide Anion Gap BUN Creatinine Est Cr Clr Drug Dosing Est GFR ( Amer) Est GFR (Non-Af Amer) BUN/Creatinine Ratio Glucose POC Glucose 179 H 140 H 179 H Lactate Calcium Phosphorus Magnesium Iron TIBC Unsaturated IBC Transferrin % Sat Ferritin Total Bilirubin Direct Bilirubin AST ALT Alkaline Phosphatase Troponin I High Sens Total Protein Albumin Globulin Albumin/Globulin Ratio Procalcitonin Urine Color Urine Appearance Urine pH Ur Specific [place] Urine Protein Urine Glucose (UA) Urine Ketones Urine Blood Urine Nitrite Urine Bilirubin Urine Urobilinogen Ur Leukocyte Esterase Urine WBC (Auto) Urine RBC (Auto) U Hyaline Cast (Auto) U Epithel Cells (Auto) Urine Bacteria (Auto) Ur Renal Epithelial Cell Granular Casts Urine Yeast Urine Sperm Ur Random Creatinine Ur Random Sodium Complement C3 Complement C4 Tot Complement (CH50) Adenovirus (PCR) B. pertussis DNA (PCR) B.parapertussis DNA PCR C. pneumoniae DNA (PCR) Coronavirus OC43 (PCR) Coronavirus HKU1 (PCR) Coronavirus 229E (PCR) SARS-CoV-2 (PCR) Coronavirus NL63 (PCR) Enterococc faecalis PCR Human Metapneumovir PCR Influenza Type A (PCR) Influenza Type B (PCR) M. pneumoniae (PCR) Parainfluenza 1 (PCR) Parainfluenza 2 (PCR) Parainfluenza 3 (PCR) Parainfluenza 4 (PCR) RSV (PCR) Entero/Rhino (PCR) SARS-CoV-2 RNA (LEON) [place]/B-Vanco Res Genes Bld Cult ID Panel PCR 03/27/23 03/27/23 03/27/23 07:21 07:22 07:25 WBC 8.60 RBC 2.87 L Hgb 8.5 L Hct 25.2 L MCV 87.8 MCH 29.6 MCHC 33.7 RDW Std Deviation 46.8 H RDW Coeff of Adrian 14.6 H Plt Count 216 MPV 9.6 Immature Gran % (Auto) Neut % (Auto) Lymph % (Auto) [place] % (Auto) Eos % (Auto) Baso % (Auto) Neut # (Auto) Lymph # (Auto) [place] # (Auto) Eos # (Auto) Baso # (Auto) Immature Gran # (Auto) PT INR APTT PTT Ratio VBG pH VBG pCO2 VBG pO2 VBG HCO3 VBG O2 Saturation VBG Base Excess Sodium 136 Potassium 4.1 Chloride 104 Carbon Dioxide 23 Anion Gap 9 BUN 56 H Creatinine 5.96 H* D Est Cr Clr Drug Dosing 9.3 Est GFR ( Amer) 9.0 Est GFR (Non-Af Amer) 7.8 BUN/Creatinine Ratio 9.4 L Glucose 120 H POC Glucose 114 H Lactate Calcium 7.9 L Phosphorus 6.6 H Magnesium 2.1 Iron TIBC Unsaturated IBC Transferrin % Sat Ferritin Total Bilirubin Direct Bilirubin AST ALT Alkaline Phosphatase Troponin I High Sens Total Protein Albumin Globulin Albumin/Globulin Ratio Procalcitonin Urine Color Urine Appearance Urine pH Ur Specific [place] Urine Protein Urine Glucose (UA) Urine Ketones Urine Blood Urine Nitrite Urine Bilirubin Urine Urobilinogen Ur Leukocyte Esterase Urine WBC (Auto) Urine RBC (Auto) U Hyaline Cast (Auto) U Epithel Cells (Auto) Urine Bacteria (Auto) Ur Renal Epithelial Cell Granular Casts Urine Yeast Urine Sperm Ur Random Creatinine Ur Random Sodium Complement C3 Complement C4 Tot Complement (CH50) Adenovirus (PCR) B. pertussis DNA (PCR) B.parapertussis DNA PCR C. pneumoniae DNA (PCR) Coronavirus OC43 (PCR) Coronavirus HKU1 (PCR) Coronavirus 229E (PCR) SARS-CoV-2 (PCR) Coronavirus NL63 (PCR) Enterococc faecalis PCR Human Metapneumovir PCR Influenza Type A (PCR) Influenza Type B (PCR) M. pneumoniae (PCR) Parainfluenza 1 (PCR) Parainfluenza 2 (PCR) Parainfluenza 3 (PCR) Parainfluenza 4 (PCR) RSV (PCR) Entero/Rhino (PCR) SARS-CoV-2 RNA (LEON) [place]/B-Vanco Res Genes Bld Cult ID Panel PCR 03/27/23 03/27/23 03/27/23 11:24 16:32 19:35 WBC RBC Hgb Hct MCV MCH MCHC RDW Std Deviation RDW Coeff of Adrian Plt Count MPV Immature Gran % (Auto) Neut % (Auto) Lymph % (Auto) [place] % (Auto) Eos % (Auto) Baso % (Auto) Neut # (Auto) Lymph # (Auto) [place] # (Auto) Eos # (Auto) Baso # (Auto) Immature Gran # (Auto) PT INR APTT PTT Ratio VBG pH VBG pCO2 VBG pO2 VBG HCO3 VBG O2 Saturation VBG Base Excess Sodium Potassium Chloride Carbon Dioxide Anion Gap BUN Creatinine Est Cr Clr Drug Dosing Est GFR ( Amer) Est GFR (Non-Af Amer) BUN/Creatinine Ratio Glucose POC Glucose 167 H 157 H 188 H Lactate Calcium Phosphorus Magnesium Iron TIBC Unsaturated IBC Transferrin % Sat Ferritin Total Bilirubin Direct Bilirubin AST ALT Alkaline Phosphatase Troponin I High Sens Total Protein Albumin Globulin Albumin/Globulin Ratio Procalcitonin Urine Color Urine Appearance Urine pH Ur Specific [place] Urine Protein Urine Glucose (UA) Urine Ketones Urine Blood Urine Nitrite Urine Bilirubin Urine Urobilinogen Ur Leukocyte Esterase Urine WBC (Auto) Urine RBC (Auto) U Hyaline Cast (Auto) U Epithel Cells (Auto) Urine Bacteria (Auto) Ur Renal Epithelial Cell Granular Casts Urine Yeast Urine Sperm Ur Random Creatinine Ur Random Sodium Complement C3 Complement C4 Tot Complement (CH50) Adenovirus (PCR) B. pertussis DNA (PCR) B.parapertussis DNA PCR C. pneumoniae DNA (PCR) Coronavirus OC43 (PCR) Coronavirus HKU1 (PCR) Coronavirus 229E (PCR) SARS-CoV-2 (PCR) Coronavirus NL63 (PCR) Enterococc faecalis PCR Human Metapneumovir PCR Influenza Type A (PCR) Influenza Type B (PCR) M. pneumoniae (PCR) Parainfluenza 1 (PCR) Parainfluenza 2 (PCR) Parainfluenza 3 (PCR) Parainfluenza 4 (PCR) RSV (PCR) Entero/Rhino (PCR) SARS-CoV-2 RNA (LEON) [place]/B-Vanco Res Genes Bld Cult ID Panel PCR 03/28/23 03/28/23 03/28/23 07:30 07:53 11:15 WBC 7.83 RBC 2.85 L Hgb 8.5 L Hct 25.5 L MCV 89.5 MCH 29.8 MCHC 33.3 RDW Std Deviation 48.1 H RDW Coeff of Adrian 14.5 Plt Count 236 MPV 9.4 Immature Gran % (Auto) Neut % (Auto) Lymph % (Auto) [place] % (Auto) Eos % (Auto) Baso % (Auto) Neut # (Auto) Lymph # (Auto) [place] # (Auto) Eos # (Auto) Baso # (Auto) Immature Gran # (Auto) PT INR APTT PTT Ratio VBG pH VBG pCO2 VBG pO2 VBG HCO3 VBG O2 Saturation VBG Base Excess Sodium 138 Potassium 3.8 Chloride 105 Carbon Dioxide 23 Anion Gap 10 BUN 54 H Creatinine 5.72 H* Est Cr Clr Drug Dosing 9.7 Est GFR ( Amer) 9.5 Est GFR (Non-Af Amer) 8.2 BUN/Creatinine Ratio 9.4 L Glucose 138 H POC Glucose 160 H 193 H Lactate Calcium 8.1 L Phosphorus 6.2 H Magnesium Iron TIBC Unsaturated IBC Transferrin % Sat Ferritin Total Bilirubin Direct Bilirubin AST ALT Alkaline Phosphatase Troponin I High Sens Total Protein Albumin 2.4 L Globulin Albumin/Globulin Ratio Procalcitonin Urine Color Urine Appearance Urine pH Ur Specific [place] Urine Protein Urine Glucose (UA) Urine Ketones Urine Blood Urine Nitrite Urine Bilirubin Urine Urobilinogen Ur Leukocyte Esterase Urine WBC (Auto) Urine RBC (Auto) U Hyaline Cast (Auto) U Epithel Cells (Auto) Urine Bacteria (Auto) Ur Renal Epithelial Cell Granular Casts Urine Yeast Urine Sperm Ur Random Creatinine Ur Random Sodium Complement C3 Complement C4 Tot Complement (CH50) Adenovirus (PCR) B. pertussis DNA (PCR) B.parapertussis DNA PCR C. pneumoniae DNA (PCR) Coronavirus OC43 (PCR) Coronavirus HKU1 (PCR) Coronavirus 229E (PCR) SARS-CoV-2 (PCR) Coronavirus NL63 (PCR) Enterococc faecalis PCR Human Metapneumovir PCR Influenza Type A (PCR) Influenza Type B (PCR) M. pneumoniae (PCR) Parainfluenza 1 (PCR) Parainfluenza 2 (PCR) Parainfluenza 3 (PCR) Parainfluenza 4 (PCR) RSV (PCR) Entero/Rhino (PCR) SARS-CoV-2 RNA (LEON) [place]/B-Vanco Res Genes Bld Cult ID Panel PCR 03/28/23 03/28/23 03/29/23 16:37 20:38 07:54 WBC 8.03 RBC 2.94 L Hgb 8.7 L Hct 26.2 L MCV 89.1 MCH 29.6 MCHC 33.2 RDW Std Deviation 47.2 H RDW Coeff of Adrian 14.6 H Plt Count 265 MPV 9.6 Immature Gran % (Auto) Neut % (Auto) Lymph % (Auto) [place] % (Auto) Eos % (Auto) Baso % (Auto) Neut # (Auto) Lymph # (Auto) [place] # (Auto) Eos # (Auto) Baso # (Auto) Immature Gran # (Auto) PT INR APTT PTT Ratio VBG pH VBG pCO2 VBG pO2 VBG HCO3 VBG O2 Saturation VBG Base Excess Sodium 141 Potassium 3.5 Chloride 106 Carbon Dioxide 24 Anion Gap 11 BUN 47 H Creatinine 5.32 H* D Est Cr Clr Drug Dosing 10.4 Est GFR ( Amer) 10.4 Est GFR (Non-Af Amer) 8.9 BUN/Creatinine Ratio 8.8 L Glucose 104 H POC Glucose 127 H 128 H Lactate Calcium 8.2 L Phosphorus 5.8 H Magnesium Iron TIBC Unsaturated IBC Transferrin % Sat Ferritin Total Bilirubin Direct Bilirubin AST ALT Alkaline Phosphatase Troponin I High Sens Total Protein Albumin 2.4 L Globulin Albumin/Globulin Ratio Procalcitonin Urine Color Urine Appearance Urine pH Ur Specific [place] Urine Protein Urine Glucose (UA) Urine Ketones Urine Blood Urine Nitrite Urine Bilirubin Urine Urobilinogen Ur Leukocyte Esterase Urine WBC (Auto) Urine RBC (Auto) U Hyaline Cast (Auto) U Epithel Cells (Auto) Urine Bacteria (Auto) Ur Renal Epithelial Cell Granular Casts Urine Yeast Urine Sperm Ur Random Creatinine Ur Random Sodium Complement C3 Complement C4 Tot Complement (CH50) Adenovirus (PCR) B. pertussis DNA (PCR) B.parapertussis DNA PCR C. pneumoniae DNA (PCR) Coronavirus OC43 (PCR) Coronavirus HKU1 (PCR) Coronavirus 229E (PCR) SARS-CoV-2 (PCR) Coronavirus NL63 (PCR) Enterococc faecalis PCR Human Metapneumovir PCR Influenza Type A (PCR) Influenza Type B (PCR) M. pneumoniae (PCR) Parainfluenza 1 (PCR) Parainfluenza 2 (PCR) Parainfluenza 3 (PCR) Parainfluenza 4 (PCR) RSV (PCR) Entero/Rhino (PCR) SARS-CoV-2 RNA (LEON) [place]/B-Vanco Res Genes Bld Cult ID Panel PCR 03/29/23 03/29/23 03/29/23 08:03 11:53 16:41 WBC RBC Hgb Hct MCV MCH MCHC RDW Std Deviation RDW Coeff of [place] Plt Count MPV Immature Gran % (Auto) Neut % (Auto) Lymph % (Auto) [place] % (Auto) Eos % (Auto) Baso % (Auto) Neut # (Auto) Lymph # (Auto) [place] # (Auto) Eos # (Auto) Baso # (Auto) Immature Gran # (Auto) PT INR APTT PTT Ratio VBG pH VBG pCO2 VBG pO2 VBG HCO3 VBG O2 Saturation VBG Base Excess Sodium Potassium Chloride Carbon Dioxide Anion Gap BUN Creatinine Est Cr Clr Drug Dosing Est GFR ( Amer) Est GFR (Non-Af Amer) BUN/Creatinine Ratio Glucose POC Glucose 104 H 172 H 130 H Lactate Calcium Phosphorus Magnesium Iron TIBC Unsaturated IBC Transferrin % Sat Ferritin Total Bilirubin Direct Bilirubin AST ALT Alkaline Phosphatase Troponin I High Sens Total Protein Albumin Globulin Albumin/Globulin Ratio Procalcitonin Urine Color Urine Appearance Urine pH Ur Specific [place] Urine Protein Urine Glucose (UA) Urine Ketones Urine Blood Urine Nitrite Urine Bilirubin Urine Urobilinogen Ur Leukocyte Esterase Urine WBC (Auto) Urine RBC (Auto) U Hyaline Cast (Auto) U Epithel Cells (Auto) Urine Bacteria (Auto) Ur Renal Epithelial Cell Granular Casts Urine Yeast Urine Sperm Ur Random Creatinine Ur Random Sodium Complement C3 Complement C4 Tot Complement (CH50) Adenovirus (PCR) B. pertussis DNA (PCR) B.parapertussis DNA PCR C. pneumoniae DNA (PCR) Coronavirus OC43 (PCR) Coronavirus HKU1 (PCR) Coronavirus 229E (PCR) SARS-CoV-2 (PCR) Coronavirus NL63 (PCR) Enterococc faecalis PCR Human Metapneumovir PCR Influenza Type A (PCR) Influenza Type B (PCR) M. pneumoniae (PCR) Parainfluenza 1 (PCR) Parainfluenza 2 (PCR) Parainfluenza 3 (PCR) Parainfluenza 4 (PCR) RSV (PCR) Entero/Rhino (PCR) SARS-CoV-2 RNA (LEON) [place]/B-Vanco Res Genes Bld Cult ID Panel PCR 03/29/23 03/30/23 03/30/23 20:32 06:56 07:58 WBC 7.68 RBC 2.79 L Hgb 8.4 L Hct 25.7 L MCV 92.1 MCH 30.1 MCHC 32.7 RDW Std Deviation 49.6 H RDW Coeff of Adrian 14.6 H Plt Count 268 MPV 9.3 L Immature Gran % (Auto) 0.9 Neut % (Auto) 68.4 Lymph % (Auto) 19.9 [place] % (Auto) 7.6 Eos % (Auto) 2.7 Baso % (Auto) 0.5 Neut # (Auto) 5.25 Lymph # (Auto) 1.53 [place] # (Auto) 0.58 Eos # (Auto) 0.21 Baso # (Auto) 0.04 Immature Gran # (Auto) 0.07 PT INR APTT PTT Ratio VBG pH VBG pCO2 VBG pO2 VBG HCO3 VBG O2 Saturation VBG Base Excess Sodium 141 Potassium 3.4 L Chloride 108 H Carbon Dioxide 26 Anion Gap 7 BUN 41 H Creatinine 4.73 H* D Est Cr Clr Drug Dosing 11.7 Est GFR ( Amer) 11.9 Est GFR (Non-Af Amer) 10.3 BUN/Creatinine Ratio 8.7 L Glucose 135 H POC Glucose 163 H 137 H Lactate Calcium 8.0 L Phosphorus Magnesium Iron TIBC Unsaturated IBC Transferrin % Sat Ferritin Total Bilirubin 0.3 Direct Bilirubin AST 11 L ALT 6 L Alkaline Phosphatase 112 H Troponin I High Sens Total Protein 5.7 L Albumin 2.2 L Globulin 3.5 Albumin/Globulin Ratio 0.6 L Procalcitonin Urine Color Urine Appearance Urine pH Ur Specific [place] Urine Protein Urine Glucose (UA) Urine Ketones Urine Blood Urine Nitrite Urine Bilirubin Urine Urobilinogen Ur Leukocyte Esterase Urine WBC (Auto) Urine RBC (Auto) U Hyaline Cast (Auto) U Epithel Cells (Auto) Urine Bacteria (Auto) Ur Renal Epithelial Cell Granular Casts Urine Yeast Urine Sperm Ur Random Creatinine Ur Random Sodium Complement C3 Complement C4 Tot Complement (CH50) Adenovirus (PCR) B. pertussis DNA (PCR) B.parapertussis DNA PCR C. pneumoniae DNA (PCR) Coronavirus OC43 (PCR) Coronavirus HKU1 (PCR) Coronavirus 229E (PCR) SARS-CoV-2 (PCR) Coronavirus NL63 (PCR) Enterococc faecalis PCR Human Metapneumovir PCR Influenza Type A (PCR) Influenza Type B (PCR) M. pneumoniae (PCR) Parainfluenza 1 (PCR) Parainfluenza 2 (PCR) Parainfluenza 3 (PCR) Parainfluenza 4 (PCR) RSV (PCR) Entero/Rhino (PCR) SARS-CoV-2 RNA (LEON) [place]/B-Vanco Res Genes Bld Cult ID Panel PCR 03/30/23 03/30/23 03/30/23 11:33 16:44 20:45 WBC RBC Hgb Hct MCV MCH MCHC RDW Std Deviation RDW Coeff of [place] Plt Count MPV Immature Gran % (Auto) Neut % (Auto) Lymph % (Auto) [place] % (Auto) Eos % (Auto) Baso % (Auto) Neut # (Auto) Lymph # (Auto) [place] # (Auto) Eos # (Auto) Baso # (Auto) Immature Gran # (Auto) PT INR APTT PTT Ratio VBG pH VBG pCO2 VBG pO2 VBG HCO3 VBG O2 Saturation VBG Base Excess Sodium Potassium Chloride Carbon Dioxide Anion Gap BUN Creatinine Est Cr Clr Drug Dosing Est GFR ( Amer) Est GFR (Non-Af Amer) BUN/Creatinine Ratio Glucose POC Glucose 176 H 125 H 122 H Lactate Calcium Phosphorus Magnesium Iron TIBC Unsaturated IBC Transferrin % Sat Ferritin Total Bilirubin Direct Bilirubin AST ALT Alkaline Phosphatase Troponin I High Sens Total Protein Albumin Globulin Albumin/Globulin Ratio Procalcitonin Urine Color Urine Appearance Urine pH Ur Specific [place] Urine Protein Urine Glucose (UA) Urine Ketones Urine Blood Urine Nitrite Urine Bilirubin Urine Urobilinogen Ur Leukocyte Esterase Urine WBC (Auto) Urine RBC (Auto) U Hyaline Cast (Auto) U Epithel Cells (Auto) Urine Bacteria (Auto) Ur Renal Epithelial Cell Granular Casts Urine Yeast Urine Sperm Ur Random Creatinine Ur Random Sodium Complement C3 Complement C4 Tot Complement (CH50) Adenovirus (PCR) B. pertussis DNA (PCR) B.parapertussis DNA PCR C. pneumoniae DNA (PCR) Coronavirus OC43 (PCR) Coronavirus HKU1 (PCR) Coronavirus 229E (PCR) SARS-CoV-2 (PCR) Coronavirus NL63 (PCR) Enterococc faecalis PCR Human Metapneumovir PCR Influenza Type A (PCR) Influenza Type B (PCR) M. pneumoniae (PCR) Parainfluenza 1 (PCR) Parainfluenza 2 (PCR) Parainfluenza 3 (PCR) Parainfluenza 4 (PCR) RSV (PCR) Entero/Rhino (PCR) SARS-CoV-2 RNA (LEON) [place]/B-Vanco Res Genes Bld Cult ID Panel PCR 03/31/23 03/31/23 03/31/23 07:13 07:51 11:54 WBC 8.84 RBC 3.03 L Hgb 9.0 L Hct 28.5 L MCV 94.1 MCH 29.7 MCHC 31.6 L RDW Std Deviation 51.7 H RDW Coeff of Adrian 15.2 H Plt Count 279 MPV 9.1 L Immature Gran % (Auto) 0.6 Neut % (Auto) 70.0 Lymph % (Auto) 19.7 [place] % (Auto) 6.7 Eos % (Auto) 2.4 Baso % (Auto) 0.6 Neut # (Auto) 6.20 Lymph # (Auto) 1.74 [place] # (Auto) 0.59 Eos # (Auto) 0.21 Baso # (Auto) 0.05 Immature Gran # (Auto) 0.05 PT INR APTT PTT Ratio VBG pH VBG pCO2 VBG pO2 VBG HCO3 VBG O2 Saturation VBG Base Excess Sodium 141 Potassium 3.6 Chloride 109 H Carbon Dioxide 24 Anion Gap 8 BUN 39 H Creatinine 4.47 H Est Cr Clr Drug Dosing 12.4 Est GFR ( Amer) 12.8 Est GFR (Non-Af Amer) 11.0 BUN/Creatinine Ratio 8.7 L Glucose 107 H POC Glucose 102 H 119 H Lactate Calcium 8.1 L Phosphorus Magnesium Iron TIBC Unsaturated IBC Transferrin % Sat Ferritin Total Bilirubin 0.3 Direct Bilirubin AST 12 L ALT 5 L Alkaline Phosphatase 126 H Troponin I High Sens Total Protein 5.8 L Albumin 2.2 L Globulin 3.6 Albumin/Globulin Ratio 0.6 L Procalcitonin Urine Color Urine Appearance Urine pH Ur Specific [place] Urine Protein Urine Glucose (UA) Urine Ketones Urine Blood Urine Nitrite Urine Bilirubin Urine Urobilinogen Ur Leukocyte Esterase Urine WBC (Auto) Urine RBC (Auto) U Hyaline Cast (Auto) U Epithel Cells (Auto) Urine Bacteria (Auto) Ur Renal Epithelial Cell Granular Casts Urine Yeast Urine Sperm Ur Random Creatinine Ur Random Sodium Complement C3 Complement C4 Tot Complement (CH50) Adenovirus (PCR) B. pertussis DNA (PCR) B.parapertussis DNA PCR C. pneumoniae DNA (PCR) Coronavirus OC43 (PCR) Coronavirus HKU1 (PCR) Coronavirus 229E (PCR) SARS-CoV-2 (PCR) Coronavirus NL63 (PCR) Enterococc faecalis PCR Human Metapneumovir PCR Influenza Type A (PCR) Influenza Type B (PCR) M. pneumoniae (PCR) Parainfluenza 1 (PCR) Parainfluenza 2 (PCR) Parainfluenza 3 (PCR) Parainfluenza 4 (PCR) RSV (PCR) Entero/Rhino (PCR) SARS-CoV-2 RNA (LEON) [place]/B-Vanco Res Genes Bld Cult ID Panel PCR 03/31/23 03/31/23 04/01/23 17:07 20:30 06:39 WBC 9.50 RBC 3.16 L Hgb 9.5 L Hct 29.0 L MCV 91.8 MCH 30.1 MCHC 32.8 RDW Std Deviation 49.9 H RDW Coeff of Adrian 14.9 H Plt Count 279 MPV 9.1 L Immature Gran % (Auto) 2.2 Neut % (Auto) 77.5 Lymph % (Auto) 12.7 [place] % (Auto) 6.3 Eos % (Auto) 0.9 Baso % (Auto) 0.4 Neut # (Auto) 7.35 H Lymph # (Auto) 1.21 [place] # (Auto) 0.60 H Eos # (Auto) 0.09 Baso # (Auto) 0.04 Immature Gran # (Auto) 0.21 H PT INR APTT PTT Ratio VBG pH VBG pCO2 VBG pO2 VBG HCO3 VBG O2 Saturation VBG Base Excess Sodium 142 Potassium 3.5 Chloride 110 H Carbon Dioxide 23 Anion Gap 9 BUN 37 H Creatinine 4.14 H D Est Cr Clr Drug Dosing 13.4 Est GFR ( Amer) 14.0 Est GFR (Non-Af Amer) 12.1 BUN/Creatinine Ratio 8.9 L Glucose 92 POC Glucose 89 125 H Lactate Calcium 8.1 L Phosphorus Magnesium Iron TIBC Unsaturated IBC Transferrin % Sat Ferritin Total Bilirubin 0.3 Direct Bilirubin AST 23 ALT 7 Alkaline Phosphatase 120 H Troponin I High Sens Total Protein 5.8 L Albumin 2.2 L Globulin 3.6 Albumin/Globulin Ratio 0.6 L Procalcitonin Urine Color Urine Appearance Urine pH Ur Specific [place] Urine Protein Urine Glucose (UA) Urine Ketones Urine Blood Urine Nitrite Urine Bilirubin Urine Urobilinogen Ur Leukocyte Esterase Urine WBC (Auto) Urine RBC (Auto) U Hyaline Cast (Auto) U Epithel Cells (Auto) Urine Bacteria (Auto) Ur Renal Epithelial Cell Granular Casts Urine Yeast Urine Sperm Ur Random Creatinine Ur Random Sodium Complement C3 Complement C4 Tot Complement (CH50) Adenovirus (PCR) B. pertussis DNA (PCR) B.parapertussis DNA PCR C. pneumoniae DNA (PCR) Coronavirus OC43 (PCR) Coronavirus HKU1 (PCR) Coronavirus 229E (PCR) SARS-CoV-2 (PCR) Coronavirus NL63 (PCR) Enterococc faecalis PCR Human Metapneumovir PCR Influenza Type A (PCR) Influenza Type B (PCR) M. pneumoniae (PCR) Parainfluenza 1 (PCR) Parainfluenza 2 (PCR) Parainfluenza 3 (PCR) Parainfluenza 4 (PCR) RSV (PCR) Entero/Rhino (PCR) SARS-CoV-2 RNA (LEON) [place]/B-Vanco Res Genes Bld Cult ID Panel PCR 11/04/23 11/04/23 11/04/23 08:15 11:47 16:52 WBC RBC Hgb Hct MCV MCH MCHC RDW Std Deviation RDW Coeff of [place] Plt Count MPV Immature Gran % (Auto) Neut % (Auto) Lymph % (Auto) [place] % (Auto) Eos % (Auto) Baso % (Auto) Neut # (Auto) Lymph # (Auto) [place] # (Auto) Eos # (Auto) Baso # (Auto) Immature Gran # (Auto) PT INR APTT PTT Ratio VBG pH VBG pCO2 VBG pO2 VBG HCO3 VBG O2 Saturation VBG Base Excess Sodium Potassium Chloride Carbon Dioxide Anion Gap BUN Creatinine Est Cr Clr Drug Dosing Est GFR ( Amer) Est GFR (Non-Af Amer) BUN/Creatinine Ratio Glucose POC Glucose 97 100 H 87 Lactate Calcium Phosphorus Magnesium Iron TIBC Unsaturated IBC Transferrin % Sat Ferritin Total Bilirubin Direct Bilirubin AST ALT Alkaline Phosphatase Troponin I High Sens Total Protein Albumin Globulin Albumin/Globulin Ratio Procalcitonin Urine Color Urine Appearance Urine pH Ur Specific [place] Urine Protein Urine Glucose (UA) Urine Ketones Urine Blood Urine Nitrite Urine Bilirubin Urine Urobilinogen Ur Leukocyte Esterase Urine WBC (Auto) Urine RBC (Auto) U Hyaline Cast (Auto) U Epithel Cells (Auto) Urine Bacteria (Auto) Ur Renal Epithelial Cell Granular Casts Urine Yeast Urine Sperm Ur Random Creatinine Ur Random Sodium Complement C3 Complement C4 Tot Complement (CH50) Adenovirus (PCR) B. pertussis DNA (PCR) B.parapertussis DNA PCR C. pneumoniae DNA (PCR) Coronavirus OC43 (PCR) Coronavirus HKU1 (PCR) Coronavirus 229E (PCR) SARS-CoV-2 (PCR) Coronavirus NL63 (PCR) Enterococc faecalis PCR Human Metapneumovir PCR Influenza Type A (PCR) Influenza Type B (PCR) M. pneumoniae (PCR) Parainfluenza 1 (PCR) Parainfluenza 2 (PCR) Parainfluenza 3 (PCR) Parainfluenza 4 (PCR) RSV (PCR) Entero/Rhino (PCR) SARS-CoV-2 RNA (LEON) [place]/B-Vanco Res Genes Bld Cult ID Panel PCR 04/01/23 04/02/23 04/02/23 20:31 06:25 07:59 WBC 9.08 RBC 3.49 L Hgb 10.4 L Hct 32.5 L MCV 93.1 MCH 29.8 MCHC 32.0 RDW Std Deviation 49.1 H RDW Coeff of Adrian 14.6 H Plt Count 274 MPV 9.1 L Immature Gran % (Auto) 0.8 Neut % (Auto) 77.6 Lymph % (Auto) 14.0 [place] % (Auto) 5.4 Eos % (Auto) 1.8 Baso % (Auto) 0.4 Neut # (Auto) 7.05 H Lymph # (Auto) 1.27 [place] # (Auto) 0.49 Eos # (Auto) 0.16 Baso # (Auto) 0.04 Immature Gran # (Auto) 0.07 PT INR APTT PTT Ratio VBG pH VBG pCO2 VBG pO2 VBG HCO3 VBG O2 Saturation VBG Base Excess Sodium 143 Potassium 3.4 L Chloride 111 H Carbon Dioxide 22 Anion Gap 10 BUN 40 H Creatinine 3.85 H Est Cr Clr Drug Dosing 14.4 Est GFR ( Amer) 15.3 Est GFR (Non-Af Amer) 13.2 BUN/Creatinine Ratio 10.4 Glucose 88 POC Glucose 107 H 96 Lactate Calcium 8.1 L Phosphorus Magnesium Iron TIBC Unsaturated IBC Transferrin % Sat Ferritin Total Bilirubin 0.3 Direct Bilirubin AST 18 ALT 5 L Alkaline Phosphatase 117 H Troponin I High Sens Total Protein 5.9 L Albumin 2.2 L Globulin 3.7 Albumin/Globulin Ratio 0.6 L Procalcitonin Urine Color Urine Appearance Urine pH Ur Specific [place] Urine Protein Urine Glucose (UA) Urine Ketones Urine Blood Urine Nitrite Urine Bilirubin Urine Urobilinogen Ur Leukocyte Esterase Urine WBC (Auto) Urine RBC (Auto) U Hyaline Cast (Auto) U Epithel Cells (Auto) Urine Bacteria (Auto) Ur Renal Epithelial Cell Granular Casts Urine Yeast Urine Sperm Ur Random Creatinine Ur Random Sodium Complement C3 Complement C4 Tot Complement (CH50) Adenovirus (PCR) B. pertussis DNA (PCR) B.parapertussis DNA PCR C. pneumoniae DNA (PCR) Coronavirus OC43 (PCR) Coronavirus HKU1 (PCR) Coronavirus 229E (PCR) SARS-CoV-2 (PCR) Coronavirus NL63 (PCR) Enterococc faecalis PCR Human Metapneumovir PCR Influenza Type A (PCR) Influenza Type B (PCR) M. pneumoniae (PCR) Parainfluenza 1 (PCR) Parainfluenza 2 (PCR) Parainfluenza 3 (PCR) Parainfluenza 4 (PCR) RSV (PCR) Entero/Rhino (PCR) SARS-CoV-2 RNA (LEON) [place]/B-Vanco Res Genes Bld Cult ID Panel PCR 04/02/23 04/02/23 04/02/23 12:04 16:45 20:17 WBC RBC Hgb Hct MCV MCH MCHC RDW Std Deviation RDW Coeff of [place] Plt Count MPV Immature Gran % (Auto) Neut % (Auto) Lymph % (Auto) [place] % (Auto) Eos % (Auto) Baso % (Auto) Neut # (Auto) Lymph # (Auto) [place] # (Auto) Eos # (Auto) Baso # (Auto) Immature Gran # (Auto) PT INR APTT PTT Ratio VBG pH VBG pCO2 VBG pO2 VBG HCO3 VBG O2 Saturation VBG Base Excess Sodium Potassium Chloride Carbon Dioxide Anion Gap BUN Creatinine Est Cr Clr Drug Dosing Est GFR ( Amer) Est GFR (Non-Af Amer) BUN/Creatinine Ratio Glucose POC Glucose 93 86 85 Lactate Calcium Phosphorus Magnesium Iron TIBC Unsaturated IBC Transferrin % Sat Ferritin Total Bilirubin Direct Bilirubin AST ALT Alkaline Phosphatase Troponin I High Sens Total Protein Albumin Globulin Albumin/Globulin Ratio Procalcitonin Urine Color Urine Appearance Urine pH Ur Specific [place] Urine Protein Urine Glucose (UA) Urine Ketones Urine Blood Urine Nitrite Urine Bilirubin Urine Urobilinogen Ur Leukocyte Esterase Urine WBC (Auto) Urine RBC (Auto) U Hyaline Cast (Auto) U Epithel Cells (Auto) Urine Bacteria (Auto) Ur Renal Epithelial Cell Granular Casts Urine Yeast Urine Sperm Ur Random Creatinine Ur Random Sodium Complement C3 Complement C4 Tot Complement (CH50) Adenovirus (PCR) B. pertussis DNA (PCR) B.parapertussis DNA PCR C. pneumoniae DNA (PCR) Coronavirus OC43 (PCR) Coronavirus HKU1 (PCR) Coronavirus 229E (PCR) SARS-CoV-2 (PCR) Coronavirus NL63 (PCR) Enterococc faecalis PCR Human Metapneumovir PCR Influenza Type A (PCR) Influenza Type B (PCR) M. pneumoniae (PCR) Parainfluenza 1 (PCR) Parainfluenza 2 (PCR) Parainfluenza 3 (PCR) Parainfluenza 4 (PCR) RSV (PCR) Entero/Rhino (PCR) SARS-CoV-2 RNA (LEON) [place]/B-Vanco Res Genes Bld Cult ID Panel PCR 04/03/23 04/03/23 04/03/23 06:58 07:57 11:35 WBC 8.10 RBC 3.14 L Hgb 9.3 L Hct 29.3 L MCV 93.3 MCH 29.6 MCHC 31.7 L RDW Std Deviation 50.3 H RDW Coeff of Adrian 14.9 H Plt Count 296 MPV 9.2 L Immature Gran % (Auto) 0.6 Neut % (Auto) 73.8 Lymph % (Auto) 16.7 [place] % (Auto) 6.3 Eos % (Auto) 2.1 Baso % (Auto) 0.5 Neut # (Auto) 5.98 Lymph # (Auto) 1.35 [place] # (Auto) 0.51 Eos # (Auto) 0.17 Baso # (Auto) 0.04 Immature Gran # (Auto) 0.05 PT INR APTT PTT Ratio VBG pH VBG pCO2 VBG pO2 VBG HCO3 VBG O2 Saturation VBG Base Excess Sodium 144 Potassium 3.2 L Chloride 112 H Carbon Dioxide 23 Anion Gap 9 BUN 40 H Creatinine 3.69 H Est Cr Clr Drug Dosing 15.0 Est GFR ( Amer) 16.1 Est GFR (Non-Af Amer) 13.9 BUN/Creatinine Ratio 10.8 Glucose 67 L POC Glucose 72 79 Lactate Calcium 8.0 L Phosphorus Magnesium Iron TIBC Unsaturated IBC Transferrin % Sat Ferritin Total Bilirubin 0.2 Direct Bilirubin AST 18 ALT 6 L Alkaline Phosphatase 125 H Troponin I High Sens Total Protein 5.9 L Albumin 2.1 L Globulin 3.8 Albumin/Globulin Ratio 0.6 L Procalcitonin Urine Color Urine Appearance Urine pH Ur Specific [place] Urine Protein Urine Glucose (UA) Urine Ketones Urine Blood Urine Nitrite Urine Bilirubin Urine Urobilinogen Ur Leukocyte Esterase Urine WBC (Auto) Urine RBC (Auto) U Hyaline Cast (Auto) U Epithel Cells (Auto) Urine Bacteria (Auto) Ur Renal Epithelial Cell Granular Casts Urine Yeast Urine Sperm Ur Random Creatinine Ur Random Sodium Complement C3 Complement C4 Tot Complement (CH50) Adenovirus (PCR) B. pertussis DNA (PCR) B.parapertussis DNA PCR C. pneumoniae DNA (PCR) Coronavirus OC43 (PCR) Coronavirus HKU1 (PCR) Coronavirus 229E (PCR) SARS-CoV-2 (PCR) Coronavirus NL63 (PCR) Enterococc faecalis PCR Human Metapneumovir PCR Influenza Type A (PCR) Influenza Type B (PCR) M. pneumoniae (PCR) Parainfluenza 1 (PCR) Parainfluenza 2 (PCR) Parainfluenza 3 (PCR) Parainfluenza 4 (PCR) RSV (PCR) Entero/Rhino (PCR) SARS-CoV-2 RNA (LEON) [place]/B-Vanco Res Genes Bld Cult ID Panel PCR 04/03/23 04/03/23 04/04/23 16:39 20:04 06:51 WBC 6.29 RBC 3.09 L Hgb 9.1 L Hct 28.0 L MCV 90.6 MCH 29.4 MCHC 32.5 RDW Std Deviation 46.9 H RDW Coeff of Adrian 14.5 Plt Count 261 MPV 9.1 L Immature Gran % (Auto) 0.5 Neut % (Auto) 70.5 Lymph % (Auto) 19.6 [place] % (Auto) 7.2 Eos % (Auto) 1.9 Baso % (Auto) 0.3 Neut # (Auto) 4.44 Lymph # (Auto) 1.23 [place] # (Auto) 0.45 Eos # (Auto) 0.12 Baso # (Auto) 0.02 Immature Gran # (Auto) 0.03 PT INR APTT PTT Ratio VBG pH VBG pCO2 VBG pO2 VBG HCO3 VBG O2 Saturation VBG Base Excess Sodium 143 Potassium 3.0 L Chloride 112 H Carbon Dioxide 23 Anion Gap 8 BUN 37 H Creatinine 3.44 H Est Cr Clr Drug Dosing 16.1 Est GFR ( Amer) 17.5 Est GFR (Non-Af Amer) 15.1 BUN/Creatinine Ratio 10.8 Glucose 128 H POC Glucose 110 H 175 H Lactate Calcium 7.7 L Phosphorus Magnesium Iron TIBC Unsaturated IBC Transferrin % Sat Ferritin Total Bilirubin 0.2 Direct Bilirubin AST 18 ALT 5 L Alkaline Phosphatase 119 H Troponin I High Sens Total Protein 5.3 L Albumin 2.0 L Globulin 3.3 Albumin/Globulin Ratio 0.6 L Procalcitonin Urine Color Urine Appearance Urine pH Ur Specific [place] Urine Protein Urine Glucose (UA) Urine Ketones Urine Blood Urine Nitrite Urine Bilirubin Urine Urobilinogen Ur Leukocyte Esterase Urine WBC (Auto) Urine RBC (Auto) U Hyaline Cast (Auto) U Epithel Cells (Auto) Urine Bacteria (Auto) Ur Renal Epithelial Cell Granular Casts Urine Yeast Urine Sperm Ur Random Creatinine Ur Random Sodium Complement C3 Complement C4 Tot Complement (CH50) Adenovirus (PCR) B. pertussis DNA (PCR) B.parapertussis DNA PCR C. pneumoniae DNA (PCR) Coronavirus OC43 (PCR) Coronavirus HKU1 (PCR) Coronavirus 229E (PCR) SARS-CoV-2 (PCR) Coronavirus NL63 (PCR) Enterococc faecalis PCR Human Metapneumovir PCR Influenza Type A (PCR) Influenza Type B (PCR) M. pneumoniae (PCR) Parainfluenza 1 (PCR) Parainfluenza 2 (PCR) Parainfluenza 3 (PCR) Parainfluenza 4 (PCR) RSV (PCR) Entero/Rhino (PCR) SARS-CoV-2 RNA (LEON) [place]/B-Vanco Res Genes Bld Cult ID Panel PCR 04/04/23 04/04/23 04/04/23 08:06 11:57 16:46 WBC RBC Hgb Hct MCV MCH MCHC RDW Std Deviation RDW Coeff of Adrian Plt Count MPV Immature Gran % (Auto) Neut % (Auto) Lymph % (Auto) [place] % (Auto) Eos % (Auto) Baso % (Auto) Neut # (Auto) Lymph # (Auto) [place] # (Auto) Eos # (Auto) Baso # (Auto) Immature Gran # (Auto) PT INR APTT PTT Ratio VBG pH VBG pCO2 VBG pO2 VBG HCO3 VBG O2 Saturation VBG Base Excess Sodium Potassium Chloride Carbon Dioxide Anion Gap BUN Creatinine Est Cr Clr Drug Dosing Est GFR ( Amer) Est GFR (Non-Af Amer) BUN/Creatinine Ratio Glucose POC Glucose 134 H 99 152 H Lactate Calcium Phosphorus Magnesium Iron TIBC Unsaturated IBC Transferrin % Sat Ferritin Total Bilirubin Direct Bilirubin AST ALT Alkaline Phosphatase Troponin I High Sens Total Protein Albumin Globulin Albumin/Globulin Ratio Procalcitonin Urine Color Urine Appearance Urine pH Ur Specific [place] Urine Protein Urine Glucose (UA) Urine Ketones Urine Blood Urine Nitrite Urine Bilirubin Urine Urobilinogen Ur Leukocyte Esterase Urine WBC (Auto) Urine RBC (Auto) U Hyaline Cast (Auto) U Epithel Cells (Auto) Urine Bacteria (Auto) Ur Renal Epithelial Cell Granular Casts Urine Yeast Urine Sperm Ur Random Creatinine Ur Random Sodium Complement C3 Complement C4 Tot Complement (CH50) Adenovirus (PCR) B. pertussis DNA (PCR) B.parapertussis DNA PCR C. pneumoniae DNA (PCR) Coronavirus OC43 (PCR) Coronavirus HKU1 (PCR) Coronavirus 229E (PCR) SARS-CoV-2 (PCR) Coronavirus NL63 (PCR) Enterococc faecalis PCR Human Metapneumovir PCR Influenza Type A (PCR) Influenza Type B (PCR) M. pneumoniae (PCR) Parainfluenza 1 (PCR) Parainfluenza 2 (PCR) Parainfluenza 3 (PCR) Parainfluenza 4 (PCR) RSV (PCR) Entero/Rhino (PCR) SARS-CoV-2 RNA (LEON) [place]/B-Vanco Res Genes Bld Cult ID Panel PCR 04/04/23 04/05/23 04/05/23 20:06 07:30 08:13 WBC 5.89 RBC 3.11 L Hgb 9.2 L Hct 28.0 L MCV 90.0 MCH 29.6 MCHC 32.9 RDW Std Deviation 47.9 H RDW Coeff of Adrian 14.7 H Plt Count 233 MPV 8.4 L Immature Gran % (Auto) 0.3 Neut % (Auto) 63.0 Lymph % (Auto) 26.8 [place] % (Auto) 6.5 Eos % (Auto) 2.7 Baso % (Auto) 0.7 Neut # (Auto) 3.71 Lymph # (Auto) 1.58 [place] # (Auto) 0.38 Eos # (Auto) 0.16 Baso # (Auto) 0.04 Immature Gran # (Auto) 0.02 PT INR APTT PTT Ratio VBG pH VBG pCO2 VBG pO2 VBG HCO3 VBG O2 Saturation VBG Base Excess Sodium 142 Potassium 3.0 L Chloride 110 H Carbon Dioxide 25 Anion Gap 7 BUN 37 H Creatinine 3.59 H Est Cr Clr Drug Dosing 15.5 Est GFR ( Amer) 16.7 Est GFR (Non-Af Amer) 14.4 BUN/Creatinine Ratio 10.3 Glucose 154 H POC Glucose 182 H 156 H Lactate Calcium 7.7 L Phosphorus Magnesium Iron TIBC Unsaturated IBC Transferrin % Sat Ferritin Total Bilirubin 0.3 Direct Bilirubin AST 14 ALT 6 L Alkaline Phosphatase 109 H Troponin I High Sens Total Protein 5.5 L Albumin 2.0 L Globulin 3.5 Albumin/Globulin Ratio 0.6 L Procalcitonin Urine Color Urine Appearance Urine pH Ur Specific [place] Urine Protein Urine Glucose (UA) Urine Ketones Urine Blood Urine Nitrite Urine Bilirubin Urine Urobilinogen Ur Leukocyte Esterase Urine WBC (Auto) Urine RBC (Auto) U Hyaline Cast (Auto) U Epithel Cells (Auto) Urine Bacteria (Auto) Ur Renal Epithelial Cell Granular Casts Urine Yeast Urine Sperm Ur Random Creatinine Ur Random Sodium Complement C3 Complement C4 Tot Complement (CH50) Adenovirus (PCR) B. pertussis DNA (PCR) B.parapertussis DNA PCR C. pneumoniae DNA (PCR) Coronavirus OC43 (PCR) Coronavirus HKU1 (PCR) Coronavirus 229E (PCR) SARS-CoV-2 (PCR) Coronavirus NL63 (PCR) Enterococc faecalis PCR Human Metapneumovir PCR Influenza Type A (PCR) Influenza Type B (PCR) M. pneumoniae (PCR) Parainfluenza 1 (PCR) Parainfluenza 2 (PCR) Parainfluenza 3 (PCR) Parainfluenza 4 (PCR) RSV (PCR) Entero/Rhino (PCR) SARS-CoV-2 RNA (LEON) [place]/B-Vanco Res Genes Bld Cult ID Panel PCR 04/05/23 04/05/23 04/05/23 11:30 16:33 20:34 WBC RBC Hgb Hct MCV MCH MCHC RDW Std Deviation RDW Coeff of Adrian Plt Count MPV Immature Gran % (Auto) Neut % (Auto) Lymph % (Auto) [place] % (Auto) Eos % (Auto) Baso % (Auto) Neut # (Auto) Lymph # (Auto) [place] # (Auto) Eos # (Auto) Baso # (Auto) Immature Gran # (Auto) PT INR APTT PTT Ratio VBG pH VBG pCO2 VBG pO2 VBG HCO3 VBG O2 Saturation VBG Base Excess Sodium Potassium Chloride Carbon Dioxide Anion Gap BUN Creatinine Est Cr Clr Drug Dosing Est GFR ( Amer) Est GFR (Non-Af Amer) BUN/Creatinine Ratio Glucose POC Glucose 181 H 169 H 183 H Lactate Calcium Phosphorus Magnesium Iron TIBC Unsaturated IBC Transferrin % Sat Ferritin Total Bilirubin Direct Bilirubin AST ALT Alkaline Phosphatase Troponin I High Sens Total Protein Albumin Globulin Albumin/Globulin Ratio Procalcitonin Urine Color Urine Appearance Urine pH Ur Specific [place] Urine Protein Urine Glucose (UA) Urine Ketones Urine Blood Urine Nitrite Urine Bilirubin Urine Urobilinogen Ur Leukocyte Esterase Urine WBC (Auto) Urine RBC (Auto) U Hyaline Cast (Auto) U Epithel Cells (Auto) Urine Bacteria (Auto) Ur Renal Epithelial Cell Granular Casts Urine Yeast Urine Sperm Ur Random Creatinine Ur Random Sodium Complement C3 Complement C4 Tot Complement (CH50) Adenovirus (PCR) B. pertussis DNA (PCR) B.parapertussis DNA PCR C. pneumoniae DNA (PCR) Coronavirus OC43 (PCR) Coronavirus HKU1 (PCR) Coronavirus 229E (PCR) SARS-CoV-2 (PCR) Coronavirus NL63 (PCR) Enterococc faecalis PCR Human Metapneumovir PCR Influenza Type A (PCR) Influenza Type B (PCR) M. pneumoniae (PCR) Parainfluenza 1 (PCR) Parainfluenza 2 (PCR) Parainfluenza 3 (PCR) Parainfluenza 4 (PCR) RSV (PCR) Entero/Rhino (PCR) SARS-CoV-2 RNA (LEON) [place]/B-Vanco Res Genes Bld Cult ID Panel PCR 04/06/23 04/06/23 04/06/23 07:32 07:50 11:32 WBC 6.58 RBC 3.39 L Hgb 10.1 L Hct 31.2 L MCV 92.0 MCH 29.8 MCHC 32.4 RDW Std Deviation 49.7 H RDW Coeff of Adrian 14.9 H Plt Count 246 MPV 8.8 L Immature Gran % (Auto) 0.3 Neut % (Auto) 73.1 Lymph % (Auto) 18.5 [place] % (Auto) 5.2 Eos % (Auto) 2.3 Baso % (Auto) 0.6 Neut # (Auto) 4.81 Lymph # (Auto) 1.22 [place] # (Auto) 0.34 Eos # (Auto) 0.15 Baso # (Auto) 0.04 Immature Gran # (Auto) 0.02 PT INR APTT PTT Ratio VBG pH VBG pCO2 VBG pO2 VBG HCO3 VBG O2 Saturation VBG Base Excess Sodium 143 Potassium 3.2 L Chloride 111 H Carbon Dioxide 23 Anion Gap 9 BUN 37 H Creatinine 3.39 H Est Cr Clr Drug Dosing 16.4 Est GFR ( Amer) 17.8 Est GFR (Non-Af Amer) 15.4 BUN/Creatinine Ratio 10.9 Glucose 166 H POC Glucose 176 H 201 H Lactate Calcium 8.0 L Phosphorus Magnesium Iron TIBC Unsaturated IBC Transferrin % Sat Ferritin Total Bilirubin 0.2 Direct Bilirubin AST 15 ALT 5 L Alkaline Phosphatase 117 H Troponin I High Sens Total Protein 5.7 L Albumin 2.1 L Globulin 3.6 Albumin/Globulin Ratio 0.6 L Procalcitonin Urine Color Urine Appearance Urine pH Ur Specific [place] Urine Protein Urine Glucose (UA) Urine Ketones Urine Blood Urine Nitrite Urine Bilirubin Urine Urobilinogen Ur Leukocyte Esterase Urine WBC (Auto) Urine RBC (Auto) U Hyaline Cast (Auto) U Epithel Cells (Auto) Urine Bacteria (Auto) Ur Renal Epithelial Cell Granular Casts Urine Yeast Urine Sperm Ur Random Creatinine Ur Random Sodium Complement C3 Complement C4 Tot Complement (CH50) Adenovirus (PCR) B. pertussis DNA (PCR) B.parapertussis DNA PCR C. pneumoniae DNA (PCR) Coronavirus OC43 (PCR) Coronavirus HKU1 (PCR) Coronavirus 229E (PCR) SARS-CoV-2 (PCR) Coronavirus NL63 (PCR) Enterococc faecalis PCR Human Metapneumovir PCR Influenza Type A (PCR) Influenza Type B (PCR) M. pneumoniae (PCR) Parainfluenza 1 (PCR) Parainfluenza 2 (PCR) Parainfluenza 3 (PCR) Parainfluenza 4 (PCR) RSV (PCR) Entero/Rhino (PCR) SARS-CoV-2 RNA (LEON) [place]/B-Vanco Res Genes Bld Cult ID Panel PCR 04/06/23 04/06/23 04/07/23 16:34 20:37 07:20 WBC 7.73 RBC 3.17 L Hgb 9.2 L Hct 28.4 L MCV 89.6 MCH 29.0 MCHC 32.4 RDW Std Deviation 49.0 H RDW Coeff of Adrian 14.9 H Plt Count 227 MPV 8.9 L Immature Gran % (Auto) 0.6 Neut % (Auto) 81.8 Lymph % (Auto) 12.5 [place] % (Auto) 3.8 Eos % (Auto) 0.9 Baso % (Auto) 0.4 Neut # (Auto) 6.32 Lymph # (Auto) 0.97 L [place] # (Auto) 0.29 Eos # (Auto) 0.07 Baso # (Auto) 0.03 Immature Gran # (Auto) 0.05 PT INR APTT PTT Ratio VBG pH VBG pCO2 VBG pO2 VBG HCO3 VBG O2 Saturation VBG Base Excess Sodium 144 Potassium 3.1 L Chloride 112 H Carbon Dioxide 24 Anion Gap 8 BUN 37 H Creatinine 3.33 H Est Cr Clr Drug Dosing 16.7 Est GFR ( Amer) 18.2 Est GFR (Non-Af Amer) 15.7 BUN/Creatinine Ratio 11.1 Glucose 206 H POC Glucose 209 H 184 H Lactate Calcium 7.8 L Phosphorus Magnesium Iron TIBC Unsaturated IBC Transferrin % Sat Ferritin Total Bilirubin 0.2 Direct Bilirubin AST 13 ALT 5 L Alkaline Phosphatase 104 Troponin I High Sens Total Protein 5.2 L Albumin 1.9 L Globulin 3.3 Albumin/Globulin Ratio 0.6 L Procalcitonin Urine Color Urine Appearance Urine pH Ur Specific [place] Urine Protein Urine Glucose (UA) Urine Ketones Urine Blood Urine Nitrite Urine Bilirubin Urine Urobilinogen Ur Leukocyte Esterase Urine WBC (Auto) Urine RBC (Auto) U Hyaline Cast (Auto) U Epithel Cells (Auto) Urine Bacteria (Auto) Ur Renal Epithelial Cell Granular Casts Urine Yeast Urine Sperm Ur Random Creatinine Ur Random Sodium Complement C3 Complement C4 Tot Complement (CH50) Adenovirus (PCR) B. pertussis DNA (PCR) B.parapertussis DNA PCR C. pneumoniae DNA (PCR) Coronavirus OC43 (PCR) Coronavirus HKU1 (PCR) Coronavirus 229E (PCR) SARS-CoV-2 (PCR) Coronavirus NL63 (PCR) Enterococc faecalis PCR Human Metapneumovir PCR Influenza Type A (PCR) Influenza Type B (PCR) M. pneumoniae (PCR) Parainfluenza 1 (PCR) Parainfluenza 2 (PCR) Parainfluenza 3 (PCR) Parainfluenza 4 (PCR) RSV (PCR) Entero/Rhino (PCR) SARS-CoV-2 RNA (LEON) [place]/B-Vanco Res Genes Bld Cult ID Panel PCR 04/07/23 04/07/23 04/07/23 07:54 11:48 16:55 WBC RBC Hgb Hct MCV MCH MCHC RDW Std Deviation RDW Coeff of Adrian Plt Count MPV Immature Gran % (Auto) Neut % (Auto) Lymph % (Auto) [place] % (Auto) Eos % (Auto) Baso % (Auto) Neut # (Auto) Lymph # (Auto) [place] # (Auto) Eos # (Auto) Baso # (Auto) Immature Gran # (Auto) PT INR APTT PTT Ratio VBG pH VBG pCO2 VBG pO2 VBG HCO3 VBG O2 Saturation VBG Base Excess Sodium Potassium Chloride Carbon Dioxide Anion Gap BUN Creatinine Est Cr Clr Drug Dosing Est GFR ( Amer) Est GFR (Non-Af Amer) BUN/Creatinine Ratio Glucose POC Glucose 195 H 189 H 193 H Lactate Calcium Phosphorus Magnesium Iron TIBC Unsaturated IBC Transferrin % Sat Ferritin Total Bilirubin Direct Bilirubin AST ALT Alkaline Phosphatase Troponin I High Sens Total Protein Albumin Globulin Albumin/Globulin Ratio Procalcitonin Urine Color Urine Appearance Urine pH Ur Specific [place] Urine Protein Urine Glucose (UA) Urine Ketones Urine Blood Urine Nitrite Urine Bilirubin Urine Urobilinogen Ur Leukocyte Esterase Urine WBC (Auto) Urine RBC (Auto) U Hyaline Cast (Auto) U Epithel Cells (Auto) Urine Bacteria (Auto) Ur Renal Epithelial Cell Granular Casts Urine Yeast Urine Sperm Ur Random Creatinine Ur Random Sodium Complement C3 Complement C4 Tot Complement (CH50) Adenovirus (PCR) B. pertussis DNA (PCR) B.parapertussis DNA PCR C. pneumoniae DNA (PCR) Coronavirus OC43 (PCR) Coronavirus HKU1 (PCR) Coronavirus 229E (PCR) SARS-CoV-2 (PCR) Coronavirus NL63 (PCR) Enterococc faecalis PCR Human Metapneumovir PCR Influenza Type A (PCR) Influenza Type B (PCR) M. pneumoniae (PCR) Parainfluenza 1 (PCR) Parainfluenza 2 (PCR) Parainfluenza 3 (PCR) Parainfluenza 4 (PCR) RSV (PCR) Entero/Rhino (PCR) SARS-CoV-2 RNA (LEON) [place]/B-Vanco Res Genes Bld Cult ID Panel PCR 04/07/23 04/08/23 04/08/23 21:16 07:11 07:32 WBC 6.76 RBC 3.03 L Hgb 8.9 L Hct 27.8 L MCV 91.7 MCH 29.4 MCHC 32.0 RDW Std Deviation 50.4 H RDW Coeff of Adrian 14.9 H Plt Count 215 MPV 9.3 L Immature Gran % (Auto) 0.7 Neut % (Auto) 65.2 Lymph % (Auto) 24.3 [place] % (Auto) 5.9 Eos % (Auto) 3.3 Baso % (Auto) 0.6 Neut # (Auto) 4.41 Lymph # (Auto) 1.64 [place] # (Auto) 0.40 Eos # (Auto) 0.22 Baso # (Auto) 0.04 Immature Gran # (Auto) 0.05 PT INR APTT PTT Ratio VBG pH VBG pCO2 VBG pO2 VBG HCO3 VBG O2 Saturation VBG Base Excess Sodium 144 Potassium 2.8 L Chloride 113 H Carbon Dioxide 24 Anion Gap 7 BUN 41 H Creatinine 3.80 H D Est Cr Clr Drug Dosing 14.5 Est GFR ( Amer) 15.5 Est GFR (Non-Af Amer) 13.4 BUN/Creatinine Ratio 10.8 Glucose 166 H POC Glucose 141 H 181 H Lactate Calcium 7.6 L Phosphorus Magnesium Iron TIBC Unsaturated IBC Transferrin % Sat Ferritin Total Bilirubin 0.2 Direct Bilirubin AST 13 ALT 7 Alkaline Phosphatase 93 Troponin I High Sens Total Protein 4.9 L Albumin 1.9 L Globulin 3.0 Albumin/Globulin Ratio 0.6 L Procalcitonin Urine Color Urine Appearance Urine pH Ur Specific [place] Urine Protein Urine Glucose (UA) Urine Ketones Urine Blood Urine Nitrite Urine Bilirubin Urine Urobilinogen Ur Leukocyte Esterase Urine WBC (Auto) Urine RBC (Auto) U Hyaline Cast (Auto) U Epithel Cells (Auto) Urine Bacteria (Auto) Ur Renal Epithelial Cell Granular Casts Urine Yeast Urine Sperm Ur Random Creatinine Ur Random Sodium Complement C3 Complement C4 Tot Complement (CH50) Adenovirus (PCR) B. pertussis DNA (PCR) B.parapertussis DNA PCR C. pneumoniae DNA (PCR) Coronavirus OC43 (PCR) Coronavirus HKU1 (PCR) Coronavirus 229E (PCR) SARS-CoV-2 (PCR) Coronavirus NL63 (PCR) Enterococc faecalis PCR Human Metapneumovir PCR Influenza Type A (PCR) Influenza Type B (PCR) M. pneumoniae (PCR) Parainfluenza 1 (PCR) Parainfluenza 2 (PCR) Parainfluenza 3 (PCR) Parainfluenza 4 (PCR) RSV (PCR) Entero/Rhino (PCR) SARS-CoV-2 RNA (LEON) [place]/B-Vanco Res Genes Bld Cult ID Panel PCR 04/08/23 04/08/23 04/08/23 11:53 16:31 20:32 WBC RBC Hgb Hct MCV MCH MCHC RDW Std Deviation RDW Coeff of Adrian Plt Count MPV Immature Gran % (Auto) Neut % (Auto) Lymph % (Auto) [place] % (Auto) Eos % (Auto) Baso % (Auto) Neut # (Auto) Lymph # (Auto) [place] # (Auto) Eos # (Auto) Baso # (Auto) Immature Gran # (Auto) PT INR APTT PTT Ratio VBG pH VBG pCO2 VBG pO2 VBG HCO3 VBG O2 Saturation VBG Base Excess Sodium Potassium Chloride Carbon Dioxide Anion Gap BUN Creatinine Est Cr Clr Drug Dosing Est GFR ( Amer) Est GFR (Non-Af Amer) BUN/Creatinine Ratio Glucose POC Glucose 186 H 159 H 133 H Lactate Calcium Phosphorus Magnesium Iron TIBC Unsaturated IBC Transferrin % Sat Ferritin Total Bilirubin Direct Bilirubin AST ALT Alkaline Phosphatase Troponin I High Sens Total Protein Albumin Globulin Albumin/Globulin Ratio Procalcitonin Urine Color Urine Appearance Urine pH Ur Specific [place] Urine Protein Urine Glucose (UA) Urine Ketones Urine Blood Urine Nitrite Urine Bilirubin Urine Urobilinogen Ur Leukocyte Esterase Urine WBC (Auto) Urine RBC (Auto) U Hyaline Cast (Auto) U Epithel Cells (Auto) Urine Bacteria (Auto) Ur Renal Epithelial Cell Granular Casts Urine Yeast Urine Sperm Ur Random Creatinine Ur Random Sodium Complement C3 Complement C4 Tot Complement (CH50) Adenovirus (PCR) B. pertussis DNA (PCR) B.parapertussis DNA PCR C. pneumoniae DNA (PCR) Coronavirus OC43 (PCR) Coronavirus HKU1 (PCR) Coronavirus 229E (PCR) SARS-CoV-2 (PCR) Coronavirus NL63 (PCR) Enterococc faecalis PCR Human Metapneumovir PCR Influenza Type A (PCR) Influenza Type B (PCR) M. pneumoniae (PCR) Parainfluenza 1 (PCR) Parainfluenza 2 (PCR) Parainfluenza 3 (PCR) Parainfluenza 4 (PCR) RSV (PCR) Entero/Rhino (PCR) SARS-CoV-2 RNA (LEON) [place]/B-Vanco Res Genes Bld Cult ID Panel PCR 04/09/23 04/09/23 04/09/23 06:53 07:40 11:39 WBC 6.44 RBC 3.22 L Hgb 9.4 L Hct 30.0 L MCV 93.2 MCH 29.2 MCHC 31.3 L RDW Std Deviation 53.4 H RDW Coeff of Adrian 15.8 H Plt Count 200 MPV 9.0 L Immature Gran % (Auto) 0.8 Neut % (Auto) 65.9 Lymph % (Auto) 24.2 [place] % (Auto) 5.7 Eos % (Auto) 2.8 Baso % (Auto) 0.6 Neut # (Auto) 4.24 Lymph # (Auto) 1.56 [place] # (Auto) 0.37 Eos # (Auto) 0.18 Baso # (Auto) 0.04 Immature Gran # (Auto) 0.05 PT INR APTT PTT Ratio VBG pH VBG pCO2 VBG pO2 VBG HCO3 VBG O2 Saturation VBG Base Excess Sodium 143 Potassium 3.8 D Chloride 114 H Carbon Dioxide 23 Anion Gap 6 BUN 40 H Creatinine 3.68 H Est Cr Clr Drug Dosing 15.0 Est GFR ( Amer) 16.2 Est GFR (Non-Af Amer) 13.9 BUN/Creatinine Ratio 10.9 Glucose 137 H POC Glucose 154 H 182 H Lactate Calcium 7.6 L Phosphorus Magnesium Iron TIBC Unsaturated IBC Transferrin % Sat Ferritin Total Bilirubin 0.2 Direct Bilirubin AST 15 ALT 6 L Alkaline Phosphatase 87 Troponin I High Sens Total Protein 4.8 L Albumin 1.8 L Globulin 3.0 Albumin/Globulin Ratio 0.6 L Procalcitonin Urine Color Urine Appearance Urine pH Ur Specific [place] Urine Protein Urine Glucose (UA) Urine Ketones Urine Blood Urine Nitrite Urine Bilirubin Urine Urobilinogen Ur Leukocyte Esterase Urine WBC (Auto) Urine RBC (Auto) U Hyaline Cast (Auto) U Epithel Cells (Auto) Urine Bacteria (Auto) Ur Renal Epithelial Cell Granular Casts Urine Yeast Urine Sperm Ur Random Creatinine Ur Random Sodium Complement C3 Complement C4 Tot Complement (CH50) Adenovirus (PCR) B. pertussis DNA (PCR) B.parapertussis DNA PCR C. pneumoniae DNA (PCR) Coronavirus OC43 (PCR) Coronavirus HKU1 (PCR) Coronavirus 229E (PCR) SARS-CoV-2 (PCR) Coronavirus NL63 (PCR) Enterococc faecalis PCR Human Metapneumovir PCR Influenza Type A (PCR) Influenza Type B (PCR) M. pneumoniae (PCR) Parainfluenza 1 (PCR) Parainfluenza 2 (PCR) Parainfluenza 3 (PCR) Parainfluenza 4 (PCR) RSV (PCR) Entero/Rhino (PCR) SARS-CoV-2 RNA (LEON) [place]/B-Vanco Res Genes Bld Cult ID Panel PCR 04/09/23 04/09/23 04/10/23 16:31 20:59 07:04 WBC 8.08 RBC 3.42 L Hgb 10.0 L Hct 32.0 L MCV 93.6 MCH 29.2 MCHC 31.3 L RDW Std Deviation 54.1 H RDW Coeff of Adrian 15.9 H Plt Count 206 MPV 9.1 L Immature Gran % (Auto) 0.5 Neut % (Auto) 71.6 Lymph % (Auto) 20.7 [place] % (Auto) 4.6 Eos % (Auto) 2.0 Baso % (Auto) 0.6 Neut # (Auto) 5.79 Lymph # (Auto) 1.67 [place] # (Auto) 0.37 Eos # (Auto) 0.16 Baso # (Auto) 0.05 Immature Gran # (Auto) 0.04 PT INR APTT PTT Ratio VBG pH VBG pCO2 VBG pO2 VBG HCO3 VBG O2 Saturation VBG Base Excess Sodium 142 Potassium 3.7 Chloride 112 H Carbon Dioxide 22 Anion Gap 8 BUN 39 H Creatinine 3.41 H Est Cr Clr Drug Dosing 16.2 Est GFR ( Amer) 17.7 Est GFR (Non-Af Amer) 15.3 BUN/Creatinine Ratio 11.4 Glucose 138 H POC Glucose 143 H 123 H Lactate Calcium 7.5 L Phosphorus Magnesium Iron TIBC Unsaturated IBC Transferrin % Sat Ferritin Total Bilirubin 0.3 Direct Bilirubin AST 15 ALT 6 L Alkaline Phosphatase 93 Troponin I High Sens Total Protein 5.3 L Albumin 2.0 L Globulin 3.3 Albumin/Globulin Ratio 0.6 L Procalcitonin Urine Color Urine Appearance Urine pH Ur Specific [place] Urine Protein Urine Glucose (UA) Urine Ketones Urine Blood Urine Nitrite Urine Bilirubin Urine Urobilinogen Ur Leukocyte Esterase Urine WBC (Auto) Urine RBC (Auto) U Hyaline Cast (Auto) U Epithel Cells (Auto) Urine Bacteria (Auto) Ur Renal Epithelial Cell Granular Casts Urine Yeast Urine Sperm Ur Random Creatinine Ur Random Sodium Complement C3 Complement C4 Tot Complement (CH50) Adenovirus (PCR) B. pertussis DNA (PCR) B.parapertussis DNA PCR C. pneumoniae DNA (PCR) Coronavirus OC43 (PCR) Coronavirus HKU1 (PCR) Coronavirus 229E (PCR) SARS-CoV-2 (PCR) Coronavirus NL63 (PCR) Enterococc faecalis PCR Human Metapneumovir PCR Influenza Type A (PCR) Influenza Type B (PCR) M. pneumoniae (PCR) Parainfluenza 1 (PCR) Parainfluenza 2 (PCR) Parainfluenza 3 (PCR) Parainfluenza 4 (PCR) RSV (PCR) Entero/Rhino (PCR) SARS-CoV-2 RNA (LEON) [place]/B-Vanco Res Genes Bld Cult ID Panel PCR 04/10/23 04/10/23 04/10/23 07:53 11:30 16:39 WBC RBC Hgb Hct MCV MCH MCHC RDW Std Deviation RDW Coeff of Adrian Plt Count MPV Immature Gran % (Auto) Neut % (Auto) Lymph % (Auto) [place] % (Auto) Eos % (Auto) Baso % (Auto) Neut # (Auto) Lymph # (Auto) [place] # (Auto) Eos # (Auto) Baso # (Auto) Immature Gran # (Auto) PT INR APTT PTT Ratio VBG pH VBG pCO2 VBG pO2 VBG HCO3 VBG O2 Saturation VBG Base Excess Sodium Potassium Chloride Carbon Dioxide Anion Gap BUN Creatinine Est Cr Clr Drug Dosing Est GFR ( Amer) Est GFR (Non-Af Amer) BUN/Creatinine Ratio Glucose POC Glucose 122 H 156 H 137 H Lactate Calcium Phosphorus Magnesium Iron TIBC Unsaturated IBC Transferrin % Sat Ferritin Total Bilirubin Direct Bilirubin AST ALT Alkaline Phosphatase Troponin I High Sens Total Protein Albumin Globulin Albumin/Globulin Ratio Procalcitonin Urine Color Urine Appearance Urine pH Ur Specific [place] Urine Protein Urine Glucose (UA) Urine Ketones Urine Blood Urine Nitrite Urine Bilirubin Urine Urobilinogen Ur Leukocyte Esterase Urine WBC (Auto) Urine RBC (Auto) U Hyaline Cast (Auto) U Epithel Cells (Auto) Urine Bacteria (Auto) Ur Renal Epithelial Cell Granular Casts Urine Yeast Urine Sperm Ur Random Creatinine Ur Random Sodium Complement C3 Complement C4 Tot Complement (CH50) Adenovirus (PCR) B. pertussis DNA (PCR) B.parapertussis DNA PCR C. pneumoniae DNA (PCR) Coronavirus OC43 (PCR) Coronavirus HKU1 (PCR) Coronavirus 229E (PCR) SARS-CoV-2 (PCR) Coronavirus NL63 (PCR) Enterococc faecalis PCR Human Metapneumovir PCR Influenza Type A (PCR) Influenza Type B (PCR) M. pneumoniae (PCR) Parainfluenza 1 (PCR) Parainfluenza 2 (PCR) Parainfluenza 3 (PCR) Parainfluenza 4 (PCR) RSV (PCR) Entero/Rhino (PCR) SARS-CoV-2 RNA (LEON) [place]/B-Vanco Res Genes Bld Cult ID Panel PCR 04/10/23 04/11/23 04/11/23 20:07 06:40 07:47 WBC 7.25 RBC 3.18 L Hgb 9.4 L Hct 29.6 L MCV 93.1 MCH 29.6 MCHC 31.8 L RDW Std Deviation 54.7 H RDW Coeff of Adrian 16.0 H Plt Count 176 MPV 9.4 Immature Gran % (Auto) 0.6 Neut % (Auto) 66.0 Lymph % (Auto) 23.7 [place] % (Auto) 6.8 Eos % (Auto) 2.2 Baso % (Auto) 0.7 Neut # (Auto) 4.79 Lymph # (Auto) 1.72 [place] # (Auto) 0.49 Eos # (Auto) 0.16 Baso # (Auto) 0.05 Immature Gran # (Auto) 0.04 PT INR APTT PTT Ratio VBG pH VBG pCO2 VBG pO2 VBG HCO3 VBG O2 Saturation VBG Base Excess Sodium 142 Potassium 3.5 Chloride 112 H Carbon Dioxide 24 Anion Gap 6 BUN 41 H Creatinine 3.52 H Est Cr Clr Drug Dosing 15.7 Est GFR ( Amer) 17.1 Est GFR (Non-Af Amer) 14.7 BUN/Creatinine Ratio 11.6 Glucose 161 H POC Glucose 173 H 161 H Lactate Calcium 7.6 L Phosphorus Magnesium Iron TIBC Unsaturated IBC Transferrin % Sat Ferritin Total Bilirubin 0.2 Direct Bilirubin AST 12 L ALT 6 L Alkaline Phosphatase 82 Troponin I High Sens Total Protein 4.9 L Albumin 1.9 L Globulin 3.0 Albumin/Globulin Ratio 0.6 L Procalcitonin Urine Color Urine Appearance Urine pH Ur Specific [place] Urine Protein Urine Glucose (UA) Urine Ketones Urine Blood Urine Nitrite Urine Bilirubin Urine Urobilinogen Ur Leukocyte Esterase Urine WBC (Auto) Urine RBC (Auto) U Hyaline Cast (Auto) U Epithel Cells (Auto) Urine Bacteria (Auto) Ur Renal Epithelial Cell Granular Casts Urine Yeast Urine Sperm Ur Random Creatinine Ur Random Sodium Complement C3 Complement C4 Tot Complement (CH50) Adenovirus (PCR) B. pertussis DNA (PCR) B.parapertussis DNA PCR C. pneumoniae DNA (PCR) Coronavirus OC43 (PCR) Coronavirus HKU1 (PCR) Coronavirus 229E (PCR) SARS-CoV-2 (PCR) Coronavirus NL63 (PCR) Enterococc faecalis PCR Human Metapneumovir PCR Influenza Type A (PCR) Influenza Type B (PCR) M. pneumoniae (PCR) Parainfluenza 1 (PCR) Parainfluenza 2 (PCR) Parainfluenza 3 (PCR) Parainfluenza 4 (PCR) RSV (PCR) Entero/Rhino (PCR) SARS-CoV-2 RNA (LEON) [place]/B-Vanco Res Genes Bld Cult ID Panel PCR 04/11/23 04/11/23 04/11/23 11:29 16:47 20:05 WBC RBC Hgb Hct MCV MCH MCHC RDW Std Deviation RDW Coeff of Adrian Plt Count MPV Immature Gran % (Auto) Neut % (Auto) Lymph % (Auto) [place] % (Auto) Eos % (Auto) Baso % (Auto) Neut # (Auto) Lymph # (Auto) [place] # (Auto) Eos # (Auto) Baso # (Auto) Immature Gran # (Auto) PT INR APTT PTT Ratio VBG pH VBG pCO2 VBG pO2 VBG HCO3 VBG O2 Saturation VBG Base Excess Sodium Potassium Chloride Carbon Dioxide Anion Gap BUN Creatinine Est Cr Clr Drug Dosing Est GFR ( Amer) Est GFR (Non-Af Amer) BUN/Creatinine Ratio Glucose POC Glucose 164 H 180 H 142 H Lactate Calcium Phosphorus Magnesium Iron TIBC Unsaturated IBC Transferrin % Sat Ferritin Total Bilirubin Direct Bilirubin AST ALT Alkaline Phosphatase Troponin I High Sens Total Protein Albumin Globulin Albumin/Globulin Ratio Procalcitonin Urine Color Urine Appearance Urine pH Ur Specific [place] Urine Protein Urine Glucose (UA) Urine Ketones Urine Blood Urine Nitrite Urine Bilirubin Urine Urobilinogen Ur Leukocyte Esterase Urine WBC (Auto) Urine RBC (Auto) U Hyaline Cast (Auto) U Epithel Cells (Auto) Urine Bacteria (Auto) Ur Renal Epithelial Cell Granular Casts Urine Yeast Urine Sperm Ur Random Creatinine Ur Random Sodium Complement C3 Complement C4 Tot Complement (CH50) Adenovirus (PCR) B. pertussis DNA (PCR) B.parapertussis DNA PCR C. pneumoniae DNA (PCR) Coronavirus OC43 (PCR) Coronavirus HKU1 (PCR) Coronavirus 229E (PCR) SARS-CoV-2 (PCR) Coronavirus NL63 (PCR) Enterococc faecalis PCR Human Metapneumovir PCR Influenza Type A (PCR) Influenza Type B (PCR) M. pneumoniae (PCR) Parainfluenza 1 (PCR) Parainfluenza 2 (PCR) Parainfluenza 3 (PCR) Parainfluenza 4 (PCR) RSV (PCR) Entero/Rhino (PCR) SARS-CoV-2 RNA (LEON) [place]/B-Vanco Res Genes Bld Cult ID Panel PCR 04/12/23 04/12/23 04/12/23 05:31 07:29 11:44 WBC 9.86 RBC 3.36 L Hgb 10.0 L Hct 30.7 L MCV 91.4 MCH 29.8 MCHC 32.6 RDW Std Deviation 54.0 H RDW Coeff of Adrian 16.3 H Plt Count 171 MPV 9.0 L Immature Gran % (Auto) 0.7 Neut % (Auto) 73.7 Lymph % (Auto) 18.0 [place] % (Auto) 5.5 Eos % (Auto) 1.6 Baso % (Auto) 0.5 Neut # (Auto) 7.27 H Lymph # (Auto) 1.77 [place] # (Auto) 0.54 Eos # (Auto) 0.16 Baso # (Auto) 0.05 Immature Gran # (Auto) 0.07 PT INR APTT PTT Ratio VBG pH VBG pCO2 VBG pO2 VBG HCO3 VBG O2 Saturation VBG Base Excess Sodium 142 Potassium 3.6 Chloride 113 H Carbon Dioxide 21 Anion Gap 8 BUN 41 H Creatinine 3.43 H Est Cr Clr Drug Dosing 16.1 Est GFR ( Amer) 17.6 Est GFR (Non-Af Amer) 15.2 BUN/Creatinine Ratio 12.0 Glucose 119 H POC Glucose 105 H 125 H Lactate Calcium 7.6 L Phosphorus Magnesium Iron TIBC Unsaturated IBC Transferrin % Sat Ferritin Total Bilirubin 0.2 Direct Bilirubin AST 13 ALT 5 L Alkaline Phosphatase 86 Troponin I High Sens Total Protein 5.2 L Albumin 2.0 L Globulin 3.2 Albumin/Globulin Ratio 0.6 L Procalcitonin Urine Color Urine Appearance Urine pH Ur Specific [place] Urine Protein Urine Glucose (UA) Urine Ketones Urine Blood Urine Nitrite Urine Bilirubin Urine Urobilinogen Ur Leukocyte Esterase Urine WBC (Auto) Urine RBC (Auto) U Hyaline Cast (Auto) U Epithel Cells (Auto) Urine Bacteria (Auto) Ur Renal Epithelial Cell Granular Casts Urine Yeast Urine Sperm Ur Random Creatinine Ur Random Sodium Complement C3 Complement C4 Tot Complement (CH50) Adenovirus (PCR) B. pertussis DNA (PCR) B.parapertussis DNA PCR C. pneumoniae DNA (PCR) Coronavirus OC43 (PCR) Coronavirus HKU1 (PCR) Coronavirus 229E (PCR) SARS-CoV-2 (PCR) Coronavirus NL63 (PCR) Enterococc faecalis PCR Human Metapneumovir PCR Influenza Type A (PCR) Influenza Type B (PCR) M. pneumoniae (PCR) Parainfluenza 1 (PCR) Parainfluenza 2 (PCR) Parainfluenza 3 (PCR) Parainfluenza 4 (PCR) RSV (PCR) Entero/Rhino (PCR) SARS-CoV-2 RNA (LEON) [place]/B-Vanco Res Genes Bld Cult ID Panel PCR 04/12/23 04/12/23 04/13/23 16:21 20:25 07:29 WBC 7.93 RBC 2.96 L Hgb 8.7 L Hct 27.0 L MCV 91.2 MCH 29.4 MCHC 32.2 RDW Std Deviation 52.8 H RDW Coeff of Adrian 15.9 H Plt Count 138 MPV 9.5 Immature Gran % (Auto) 0.9 Neut % (Auto) 71.2 Lymph % (Auto) 18.3 [place] % (Auto) 6.6 Eos % (Auto) 2.6 Baso % (Auto) 0.4 Neut # (Auto) 5.65 Lymph # (Auto) 1.45 [place] # (Auto) 0.52 Eos # (Auto) 0.21 Baso # (Auto) 0.03 Immature Gran # (Auto) 0.07 PT INR APTT PTT Ratio VBG pH VBG pCO2 VBG pO2 VBG HCO3 VBG O2 Saturation VBG Base Excess Sodium 141 Potassium 3.2 L Chloride 112 H Carbon Dioxide 22 Anion Gap 7 BUN 42 H Creatinine 3.51 H Est Cr Clr Drug Dosing 15.7 Est GFR ( Amer) 17.1 Est GFR (Non-Af Amer) 14.8 BUN/Creatinine Ratio 12.0 Glucose 140 H POC Glucose 152 H 153 H Lactate Calcium 7.5 L Phosphorus Magnesium Iron TIBC Unsaturated IBC Transferrin % Sat Ferritin Total Bilirubin 0.2 Direct Bilirubin AST 10 L ALT 5 L Alkaline Phosphatase 75 Troponin I High Sens Total Protein 4.7 L Albumin 1.8 L Globulin 2.9 Albumin/Globulin Ratio 0.6 L Procalcitonin Urine Color Urine Appearance Urine pH Ur Specific [place] Urine Protein Urine Glucose (UA) Urine Ketones Urine Blood Urine Nitrite Urine Bilirubin Urine Urobilinogen Ur Leukocyte Esterase Urine WBC (Auto) Urine RBC (Auto) U Hyaline Cast (Auto) U Epithel Cells (Auto) Urine Bacteria (Auto) Ur Renal Epithelial Cell Granular Casts Urine Yeast Urine Sperm Ur Random Creatinine Ur Random Sodium Complement C3 Complement C4 Tot Complement (CH50) Adenovirus (PCR) B. pertussis DNA (PCR) B.parapertussis DNA PCR C. pneumoniae DNA (PCR) Coronavirus OC43 (PCR) Coronavirus HKU1 (PCR) Coronavirus 229E (PCR) SARS-CoV-2 (PCR) Coronavirus NL63 (PCR) Enterococc faecalis PCR Human Metapneumovir PCR Influenza Type A (PCR) Influenza Type B (PCR) M. pneumoniae (PCR) Parainfluenza 1 (PCR) Parainfluenza 2 (PCR) Parainfluenza 3 (PCR) Parainfluenza 4 (PCR) RSV (PCR) Entero/Rhino (PCR) SARS-CoV-2 RNA (LEON) [place]/B-Vanco Res Genes Bld Cult ID Panel PCR 04/13/23 04/13/23 04/13/23 07:48 11:36 16:51 WBC RBC Hgb Hct MCV MCH MCHC RDW Std Deviation RDW Coeff of [place] Plt Count MPV Immature Gran % (Auto) Neut % (Auto) Lymph % (Auto) [place] % (Auto) Eos % (Auto) Baso % (Auto) Neut # (Auto) Lymph # (Auto) [place] # (Auto) Eos # (Auto) Baso # (Auto) Immature Gran # (Auto) PT INR APTT PTT Ratio VBG pH VBG pCO2 VBG pO2 VBG HCO3 VBG O2 Saturation VBG Base Excess Sodium Potassium Chloride Carbon Dioxide Anion Gap BUN Creatinine Est Cr Clr Drug Dosing Est GFR ( Amer) Est GFR (Non-Af Amer) BUN/Creatinine Ratio Glucose POC Glucose 131 H 139 H 192 H Lactate Calcium Phosphorus Magnesium Iron TIBC Unsaturated IBC Transferrin % Sat Ferritin Total Bilirubin Direct Bilirubin AST ALT Alkaline Phosphatase Troponin I High Sens Total Protein Albumin Globulin Albumin/Globulin Ratio Procalcitonin Urine Color Urine Appearance Urine pH Ur Specific [place] Urine Protein Urine Glucose (UA) Urine Ketones Urine Blood Urine Nitrite Urine Bilirubin Urine Urobilinogen Ur Leukocyte Esterase Urine WBC (Auto) Urine RBC (Auto) U Hyaline Cast (Auto) U Epithel Cells (Auto) Urine Bacteria (Auto) Ur Renal Epithelial Cell Granular Casts Urine Yeast Urine Sperm Ur Random Creatinine Ur Random Sodium Complement C3 Complement C4 Tot Complement (CH50) Adenovirus (PCR) B. pertussis DNA (PCR) B.parapertussis DNA PCR C. pneumoniae DNA (PCR) Coronavirus OC43 (PCR) Coronavirus HKU1 (PCR) Coronavirus 229E (PCR) SARS-CoV-2 (PCR) Coronavirus NL63 (PCR) Enterococc faecalis PCR Human Metapneumovir PCR Influenza Type A (PCR) Influenza Type B (PCR) M. pneumoniae (PCR) Parainfluenza 1 (PCR) Parainfluenza 2 (PCR) Parainfluenza 3 (PCR) Parainfluenza 4 (PCR) RSV (PCR) Entero/Rhino (PCR) SARS-CoV-2 RNA (LEON) [place]/B-Vanco Res Genes Bld Cult ID Panel PCR 04/13/23 04/14/23 04/14/23 20:41 06:56 07:38 WBC 7.79 RBC 3.28 L Hgb 9.6 L Hct 30.3 L MCV 92.4 MCH 29.3 MCHC 31.7 L RDW Std Deviation 55.7 H RDW Coeff of Adrian 16.3 H Plt Count 158 MPV 9.3 L Immature Gran % (Auto) 1.0 Neut % (Auto) 70.4 Lymph % (Auto) 19.4 [place] % (Auto) 5.8 Eos % (Auto) 2.8 Baso % (Auto) 0.6 Neut # (Auto) 5.48 Lymph # (Auto) 1.51 [place] # (Auto) 0.45 Eos # (Auto) 0.22 Baso # (Auto) 0.05 Immature Gran # (Auto) 0.08 PT INR APTT PTT Ratio VBG pH VBG pCO2 VBG pO2 VBG HCO3 VBG O2 Saturation VBG Base Excess Sodium 142 Potassium 3.6 Chloride 114 H Carbon Dioxide 20 L Anion Gap 8 BUN 41 H Creatinine 3.36 H Est Cr Clr Drug Dosing 16.4 Est GFR ( Amer) 18.0 Est GFR (Non-Af Amer) 15.6 BUN/Creatinine Ratio 12.2 Glucose 123 H POC Glucose 130 H 139 H Lactate Calcium 7.7 L Phosphorus 4.9 Magnesium 1.8 Iron TIBC Unsaturated IBC Transferrin % Sat Ferritin Total Bilirubin 0.2 Direct Bilirubin AST 12 L ALT 4 L Alkaline Phosphatase 77 Troponin I High Sens Total Protein 5.1 L Albumin 1.9 L Globulin 3.2 Albumin/Globulin Ratio 0.6 L Procalcitonin Urine Color Urine Appearance Urine pH Ur Specific [place] Urine Protein Urine Glucose (UA) Urine Ketones Urine Blood Urine Nitrite Urine Bilirubin Urine Urobilinogen Ur Leukocyte Esterase Urine WBC (Auto) Urine RBC (Auto) U Hyaline Cast (Auto) U Epithel Cells (Auto) Urine Bacteria (Auto) Ur Renal Epithelial Cell Granular Casts Urine Yeast Urine Sperm Ur Random Creatinine Ur Random Sodium Complement C3 Complement C4 Tot Complement (CH50) Adenovirus (PCR) B. pertussis DNA (PCR) B.parapertussis DNA PCR C. pneumoniae DNA (PCR) Coronavirus OC43 (PCR) Coronavirus HKU1 (PCR) Coronavirus 229E (PCR) SARS-CoV-2 (PCR) Coronavirus NL63 (PCR) Enterococc faecalis PCR Human Metapneumovir PCR Influenza Type A (PCR) Influenza Type B (PCR) M. pneumoniae (PCR) Parainfluenza 1 (PCR) Parainfluenza 2 (PCR) Parainfluenza 3 (PCR) Parainfluenza 4 (PCR) RSV (PCR) Entero/Rhino (PCR) SARS-CoV-2 RNA (LEON) [place]/B-Vanco Res Genes Bld Cult ID Panel PCR 04/14/23 04/14/23 04/14/23 11:27 16:33 20:42 WBC RBC Hgb Hct MCV MCH MCHC RDW Std Deviation RDW Coeff of Adrian Plt Count MPV Immature Gran % (Auto) Neut % (Auto) Lymph % (Auto) [place] % (Auto) Eos % (Auto) Baso % (Auto) Neut # (Auto) Lymph # (Auto) [place] # (Auto) Eos # (Auto) Baso # (Auto) Immature Gran # (Auto) PT INR APTT PTT Ratio VBG pH VBG pCO2 VBG pO2 VBG HCO3 VBG O2 Saturation VBG Base Excess Sodium Potassium Chloride Carbon Dioxide Anion Gap BUN Creatinine Est Cr Clr Drug Dosing Est GFR ( Amer) Est GFR (Non-Af Amer) BUN/Creatinine Ratio Glucose POC Glucose 131 H 128 H 113 H Lactate Calcium Phosphorus Magnesium Iron TIBC Unsaturated IBC Transferrin % Sat Ferritin Total Bilirubin Direct Bilirubin AST ALT Alkaline Phosphatase Troponin I High Sens Total Protein Albumin Globulin Albumin/Globulin Ratio Procalcitonin Urine Color Urine Appearance Urine pH Ur Specific [place] Urine Protein Urine Glucose (UA) Urine Ketones Urine Blood Urine Nitrite Urine Bilirubin Urine Urobilinogen Ur Leukocyte Esterase Urine WBC (Auto) Urine RBC (Auto) U Hyaline Cast (Auto) U Epithel Cells (Auto) Urine Bacteria (Auto) Ur Renal Epithelial Cell Granular Casts Urine Yeast Urine Sperm Ur Random Creatinine Ur Random Sodium Complement C3 Complement C4 Tot Complement (CH50) Adenovirus (PCR) B. pertussis DNA (PCR) B.parapertussis DNA PCR C. pneumoniae DNA (PCR) Coronavirus OC43 (PCR) Coronavirus HKU1 (PCR) Coronavirus 229E (PCR) SARS-CoV-2 (PCR) Coronavirus NL63 (PCR) Enterococc faecalis PCR Human Metapneumovir PCR Influenza Type A (PCR) Influenza Type B (PCR) M. pneumoniae (PCR) Parainfluenza 1 (PCR) Parainfluenza 2 (PCR) Parainfluenza 3 (PCR) Parainfluenza 4 (PCR) RSV (PCR) Entero/Rhino (PCR) SARS-CoV-2 RNA (LEON) [place]/B-Vanco Res Genes Bld Cult ID Panel PCR 04/15/23 04/15/23 04/15/23 06:00 07:57 11:56 WBC 6.84 RBC 3.44 L Hgb 10.0 L Hct 31.8 L MCV 92.4 MCH 29.1 MCHC 31.4 L RDW Std Deviation 56.8 H RDW Coeff of Adrian 16.6 H Plt Count 167 MPV 9.6 Immature Gran % (Auto) 1.8 Neut % (Auto) 66.8 Lymph % (Auto) 21.1 [place] % (Auto) 6.0 Eos % (Auto) 3.7 Baso % (Auto) 0.6 Neut # (Auto) 4.58 Lymph # (Auto) 1.44 [place] # (Auto) 0.41 Eos # (Auto) 0.25 Baso # (Auto) 0.04 Immature Gran # (Auto) 0.12 PT INR APTT PTT Ratio VBG pH VBG pCO2 VBG pO2 VBG HCO3 VBG O2 Saturation VBG Base Excess Sodium 145 Potassium 3.5 Chloride 114 H Carbon Dioxide 21 Anion Gap 10 BUN 41 H Creatinine 3.50 H Est Cr Clr Drug Dosing 15.8 Est GFR ( Amer) 17.2 Est GFR (Non-Af Amer) 14.8 BUN/Creatinine Ratio 11.7 Glucose 129 H POC Glucose 124 H 162 H Lactate Calcium 7.7 L Phosphorus 5.3 H Magnesium 1.9 Iron TIBC Unsaturated IBC Transferrin % Sat Ferritin Total Bilirubin 0.2 Direct Bilirubin AST 14 ALT 5 L Alkaline Phosphatase 86 Troponin I High Sens Total Protein 5.2 L Albumin 1.9 L Globulin 3.3 Albumin/Globulin Ratio 0.6 L Procalcitonin Urine Color Urine Appearance Urine pH Ur Specific [place] Urine Protein Urine Glucose (UA) Urine Ketones Urine Blood Urine Nitrite Urine Bilirubin Urine Urobilinogen Ur Leukocyte Esterase Urine WBC (Auto) Urine RBC (Auto) U Hyaline Cast (Auto) U Epithel Cells (Auto) Urine Bacteria (Auto) Ur Renal Epithelial Cell Granular Casts Urine Yeast Urine Sperm Ur Random Creatinine Ur Random Sodium Complement C3 Complement C4 Tot Complement (CH50) Adenovirus (PCR) B. pertussis DNA (PCR) B.parapertussis DNA PCR C. pneumoniae DNA (PCR) Coronavirus OC43 (PCR) Coronavirus HKU1 (PCR) Coronavirus 229E (PCR) SARS-CoV-2 (PCR) Coronavirus NL63 (PCR) Enterococc faecalis PCR Human Metapneumovir PCR Influenza Type A (PCR) Influenza Type B (PCR) M. pneumoniae (PCR) Parainfluenza 1 (PCR) Parainfluenza 2 (PCR) Parainfluenza 3 (PCR) Parainfluenza 4 (PCR) RSV (PCR) Entero/Rhino (PCR) SARS-CoV-2 RNA (LEON) [place]/B-Vanco Res Genes Bld Cult ID Panel PCR 04/15/23 04/15/23 04/16/23 16:31 20:51 05:49 WBC RBC Hgb Hct MCV MCH MCHC RDW Std Deviation RDW Coeff of Adrian Plt Count MPV Immature Gran % (Auto) Neut % (Auto) Lymph % (Auto) [place] % (Auto) Eos % (Auto) Baso % (Auto) Neut # (Auto) Lymph # (Auto) [place] # (Auto) Eos # (Auto) Baso # (Auto) Immature Gran # (Auto) PT INR APTT PTT Ratio VBG pH VBG pCO2 VBG pO2 VBG HCO3 VBG O2 Saturation VBG Base Excess Sodium 142 Potassium 3.5 Chloride 114 H Carbon Dioxide 22 Anion Gap 6 BUN 44 H Creatinine 3.86 H D Est Cr Clr Drug Dosing 14.3 Est GFR ( Amer) 15.3 Est GFR (Non-Af Amer) 13.2 BUN/Creatinine Ratio 11.4 Glucose 122 H POC Glucose 182 H 175 H Lactate Calcium 7.4 L Phosphorus 5.5 H Magnesium 1.9 Iron TIBC Unsaturated IBC Transferrin % Sat Ferritin Total Bilirubin 0.2 Direct Bilirubin AST 14 ALT 5 L Alkaline Phosphatase 76 Troponin I High Sens Total Protein 4.7 L Albumin 1.8 L Globulin 2.9 Albumin/Globulin Ratio 0.6 L Procalcitonin Urine Color Urine Appearance Urine pH Ur Specific [place] Urine Protein Urine Glucose (UA) Urine Ketones Urine Blood Urine Nitrite Urine Bilirubin Urine Urobilinogen Ur Leukocyte Esterase Urine WBC (Auto) Urine RBC (Auto) U Hyaline Cast (Auto) U Epithel Cells (Auto) Urine Bacteria (Auto) Ur Renal Epithelial Cell Granular Casts Urine Yeast Urine Sperm Ur Random Creatinine Ur Random Sodium Complement C3 Complement C4 Tot Complement (CH50) Adenovirus (PCR) B. pertussis DNA (PCR) B.parapertussis DNA PCR C. pneumoniae DNA (PCR) Coronavirus OC43 (PCR) Coronavirus HKU1 (PCR) Coronavirus 229E (PCR) SARS-CoV-2 (PCR) Coronavirus NL63 (PCR) Enterococc faecalis PCR Human Metapneumovir PCR Influenza Type A (PCR) Influenza Type B (PCR) M. pneumoniae (PCR) Parainfluenza 1 (PCR) Parainfluenza 2 (PCR) Parainfluenza 3 (PCR) Parainfluenza 4 (PCR) RSV (PCR) Entero/Rhino (PCR) SARS-CoV-2 RNA (LEON) [place]/B-Vanco Res Genes Bld Cult ID Panel PCR 04/16/23 04/16/23 04/16/23 07:43 11:41 16:40 WBC RBC Hgb Hct MCV MCH MCHC RDW Std Deviation RDW Coeff of [place] Plt Count MPV Immature Gran % (Auto) Neut % (Auto) Lymph % (Auto) [place] % (Auto) Eos % (Auto) Baso % (Auto) Neut # (Auto) Lymph # (Auto) [place] # (Auto) Eos # (Auto) Baso # (Auto) Immature Gran # (Auto) PT INR APTT PTT Ratio VBG pH VBG pCO2 VBG pO2 VBG HCO3 VBG O2 Saturation VBG Base Excess Sodium Potassium Chloride Carbon Dioxide Anion Gap BUN Creatinine Est Cr Clr Drug Dosing Est GFR ( Amer) Est GFR (Non-Af Amer) BUN/Creatinine Ratio Glucose POC Glucose 122 H 142 H 164 H Lactate Calcium Phosphorus Magnesium Iron TIBC Unsaturated IBC Transferrin % Sat Ferritin Total Bilirubin Direct Bilirubin AST ALT Alkaline Phosphatase Troponin I High Sens Total Protein Albumin Globulin Albumin/Globulin Ratio Procalcitonin Urine Color Urine Appearance Urine pH Ur Specific [place] Urine Protein Urine Glucose (UA) Urine Ketones Urine Blood Urine Nitrite Urine Bilirubin Urine Urobilinogen Ur Leukocyte Esterase Urine WBC (Auto) Urine RBC (Auto) U Hyaline Cast (Auto) U Epithel Cells (Auto) Urine Bacteria (Auto) Ur Renal Epithelial Cell Granular Casts Urine Yeast Urine Sperm Ur Random Creatinine Ur Random Sodium Complement C3 Complement C4 Tot Complement (CH50) Adenovirus (PCR) B. pertussis DNA (PCR) B.parapertussis DNA PCR C. pneumoniae DNA (PCR) Coronavirus OC43 (PCR) Coronavirus HKU1 (PCR) Coronavirus 229E (PCR) SARS-CoV-2 (PCR) Coronavirus NL63 (PCR) Enterococc faecalis PCR Human Metapneumovir PCR Influenza Type A (PCR) Influenza Type B (PCR) M. pneumoniae (PCR) Parainfluenza 1 (PCR) Parainfluenza 2 (PCR) Parainfluenza 3 (PCR) Parainfluenza 4 (PCR) RSV (PCR) Entero/Rhino (PCR) SARS-CoV-2 RNA (LEON) [place]/B-Vanco Res Genes Bld Cult ID Panel PCR 04/16/23 04/17/23 04/17/23 20:41 06:59 07:35 WBC 5.94 RBC 3.46 L Hgb 10.1 L Hct 31.3 L MCV 90.5 MCH 29.2 MCHC 32.3 RDW Std Deviation 52.6 H RDW Coeff of Adrian 16.0 H Plt Count 156 MPV 9.5 Immature Gran % (Auto) Neut % (Auto) Lymph % (Auto) [place] % (Auto) Eos % (Auto) Baso % (Auto) Neut # (Auto) Lymph # (Auto) [place] # (Auto) Eos # (Auto) Baso # (Auto) Immature Gran # (Auto) PT INR APTT PTT Ratio VBG pH VBG pCO2 VBG pO2 VBG HCO3 VBG O2 Saturation VBG Base Excess Sodium 143 Potassium 3.6 Chloride 114 H Carbon Dioxide 20 L Anion Gap 9 BUN 47 H Creatinine 4.40 H D Est Cr Clr Drug Dosing 11.1 Est GFR ( Amer) 13.0 Est GFR (Non-Af Amer) 11.2 BUN/Creatinine Ratio 10.7 Glucose 131 H POC Glucose 134 H 125 H Lactate Calcium 7.6 L Phosphorus Magnesium Iron TIBC Unsaturated IBC Transferrin % Sat Ferritin Total Bilirubin 0.2 Direct Bilirubin AST 14 ALT 6 L Alkaline Phosphatase 82 Troponin I High Sens Total Protein 5.2 L Albumin 1.9 L Globulin 3.3 Albumin/Globulin Ratio 0.6 L Procalcitonin Urine Color Urine Appearance Urine pH Ur Specific [place] Urine Protein Urine Glucose (UA) Urine Ketones Urine Blood Urine Nitrite Urine Bilirubin Urine Urobilinogen Ur Leukocyte Esterase Urine WBC (Auto) Urine RBC (Auto) U Hyaline Cast (Auto) U Epithel Cells (Auto) Urine Bacteria (Auto) Ur Renal Epithelial Cell Granular Casts Urine Yeast Urine Sperm Ur Random Creatinine Ur Random Sodium Complement C3 Complement C4 Tot Complement (CH50) Adenovirus (PCR) B. pertussis DNA (PCR) B.parapertussis DNA PCR C. pneumoniae DNA (PCR) Coronavirus OC43 (PCR) Coronavirus HKU1 (PCR) Coronavirus 229E (PCR) SARS-CoV-2 (PCR) Coronavirus NL63 (PCR) Enterococc faecalis PCR Human Metapneumovir PCR Influenza Type A (PCR) Influenza Type B (PCR) M. pneumoniae (PCR) Parainfluenza 1 (PCR) Parainfluenza 2 (PCR) Parainfluenza 3 (PCR) Parainfluenza 4 (PCR) RSV (PCR) Entero/Rhino (PCR) SARS-CoV-2 RNA (LEON) [place]/B-Vanco Res Genes Bld Cult ID Panel PCR 04/17/23 04/17/23 04/17/23 11:28 11:35 16:49 WBC RBC Hgb Hct MCV MCH MCHC RDW Std Deviation RDW Coeff of [place] Plt Count MPV Immature Gran % (Auto) Neut % (Auto) Lymph % (Auto) [place] % (Auto) Eos % (Auto) Baso % (Auto) Neut # (Auto) Lymph # (Auto) [place] # (Auto) Eos # (Auto) Baso # (Auto) Immature Gran # (Auto) PT INR APTT PTT Ratio VBG pH VBG pCO2 VBG pO2 VBG HCO3 VBG O2 Saturation VBG Base Excess Sodium Potassium Chloride Carbon Dioxide Anion Gap BUN Creatinine Est Cr Clr Drug Dosing Est GFR ( Amer) Est GFR (Non-Af Amer) BUN/Creatinine Ratio Glucose POC Glucose 139 H 144 H Lactate Calcium Phosphorus Magnesium Iron TIBC Unsaturated IBC Transferrin % Sat Ferritin Total Bilirubin Direct Bilirubin AST ALT Alkaline Phosphatase Troponin I High Sens Total Protein Albumin Globulin Albumin/Globulin Ratio Procalcitonin Urine Color Urine Appearance Urine pH Ur Specific [place] Urine Protein Urine Glucose (UA) Urine Ketones Urine Blood Urine Nitrite Urine Bilirubin Urine Urobilinogen Ur Leukocyte Esterase Urine WBC (Auto) Urine RBC (Auto) U Hyaline Cast (Auto) U Epithel Cells (Auto) Urine Bacteria (Auto) Ur Renal Epithelial Cell Granular Casts Urine Yeast Urine Sperm Ur Random Creatinine Ur Random Sodium Complement C3 Complement C4 Tot Complement (CH50) Adenovirus (PCR) B. pertussis DNA (PCR) B.parapertussis DNA PCR C. pneumoniae DNA (PCR) Coronavirus OC43 (PCR) Coronavirus HKU1 (PCR) Coronavirus 229E (PCR) SARS-CoV-2 (PCR) Coronavirus NL63 (PCR) Enterococc faecalis PCR Human Metapneumovir PCR Influenza Type A (PCR) Influenza Type B (PCR) M. pneumoniae (PCR) Parainfluenza 1 (PCR) Parainfluenza 2 (PCR) Parainfluenza 3 (PCR) Parainfluenza 4 (PCR) RSV (PCR) Entero/Rhino (PCR) SARS-CoV-2 RNA (LEON) Negative [place]/B-Vanco Res Genes Bld Cult ID Panel PCR 04/17/23 04/17/23 04/18/23 20:21 Unknown 07:25 WBC RBC Hgb Hct MCV MCH MCHC RDW Std Deviation RDW Coeff of Adrian Plt Count MPV Immature Gran % (Auto) Neut % (Auto) Lymph % (Auto) [place] % (Auto) Eos % (Auto) Baso % (Auto) Neut # (Auto) Lymph # (Auto) [place] # (Auto) Eos # (Auto) Baso # (Auto) Immature Gran # (Auto) PT INR APTT PTT Ratio VBG pH VBG pCO2 VBG pO2 VBG HCO3 VBG O2 Saturation VBG Base Excess Sodium Potassium Chloride Carbon Dioxide Anion Gap BUN Creatinine Est Cr Clr Drug Dosing Est GFR ( Amer) Est GFR (Non-Af Amer) BUN/Creatinine Ratio Glucose POC Glucose 145 H 126 H Lactate Calcium Phosphorus Magnesium Iron TIBC Unsaturated IBC Transferrin % Sat Ferritin Total Bilirubin Direct Bilirubin AST ALT Alkaline Phosphatase Troponin I High Sens Total Protein Albumin Globulin Albumin/Globulin Ratio Procalcitonin Urine Color Urine Appearance Urine pH Ur Specific [place] Urine Protein Urine Glucose (UA) Urine Ketones Urine Blood Urine Nitrite Urine Bilirubin Urine Urobilinogen Ur Leukocyte Esterase Urine WBC (Auto) Urine RBC (Auto) U Hyaline Cast (Auto) U Epithel Cells (Auto) Urine Bacteria (Auto) Ur Renal Epithelial Cell Granular Casts Urine Yeast Urine Sperm Ur Random Creatinine Ur Random Sodium Complement C3 Complement C4 Tot Complement (CH50) Adenovirus (PCR) B. pertussis DNA (PCR) B.parapertussis DNA PCR C. pneumoniae DNA (PCR) Coronavirus OC43 (PCR) Coronavirus HKU1 (PCR) Coronavirus 229E (PCR) SARS-CoV-2 (PCR) POSITIVE A* Coronavirus NL63 (PCR) Enterococc faecalis PCR Human Metapneumovir PCR Influenza Type A (PCR) Influenza Type B (PCR) M. pneumoniae (PCR) Parainfluenza 1 (PCR) Parainfluenza 2 (PCR) Parainfluenza 3 (PCR) Parainfluenza 4 (PCR) RSV (PCR) Entero/Rhino (PCR) SARS-CoV-2 RNA (LEON) [place]/B-Vanco Res Genes Bld Cult ID Panel PCR 04/18/23 04/18/23 04/18/23 10:30 11:33 16:38 WBC RBC Hgb Hct MCV MCH MCHC RDW Std Deviation RDW Coeff of Adrian Plt Count MPV Immature Gran % (Auto) Neut % (Auto) Lymph % (Auto) [place] % (Auto) Eos % (Auto) Baso % (Auto) Neut # (Auto) Lymph # (Auto) [place] # (Auto) Eos # (Auto) Baso # (Auto) Immature Gran # (Auto) PT INR APTT PTT Ratio VBG pH VBG pCO2 VBG pO2 VBG HCO3 VBG O2 Saturation VBG Base Excess Sodium Potassium Chloride Carbon Dioxide Anion Gap BUN Creatinine Est Cr Clr Drug Dosing Est GFR ( Amer) Est GFR (Non-Af Amer) BUN/Creatinine Ratio Glucose POC Glucose 107 H 241 H Lactate Calcium Phosphorus Magnesium Iron TIBC Unsaturated IBC Transferrin % Sat Ferritin Total Bilirubin Direct Bilirubin AST ALT Alkaline Phosphatase Troponin I High Sens Total Protein Albumin Globulin Albumin/Globulin Ratio Procalcitonin Urine Color Urine Appearance Urine pH Ur Specific [place] Urine Protein Urine Glucose (UA) Urine Ketones Urine Blood Urine Nitrite Urine Bilirubin Urine Urobilinogen Ur Leukocyte Esterase Urine WBC (Auto) Urine RBC (Auto) U Hyaline Cast (Auto) U Epithel Cells (Auto) Urine Bacteria (Auto) Ur Renal Epithelial Cell Granular Casts Urine Yeast Urine Sperm Ur Random Creatinine Ur Random Sodium Complement C3 Complement C4 Tot Complement (CH50) Adenovirus (PCR) B. pertussis DNA (PCR) B.parapertussis DNA PCR C. pneumoniae DNA (PCR) Coronavirus OC43 (PCR) Coronavirus HKU1 (PCR) Coronavirus 229E (PCR) SARS-CoV-2 (PCR) NEGATIVE Coronavirus NL63 (PCR) Enterococc faecalis PCR Human Metapneumovir PCR Influenza Type A (PCR) Influenza Type B (PCR) M. pneumoniae (PCR) Parainfluenza 1 (PCR) Parainfluenza 2 (PCR) Parainfluenza 3 (PCR) Parainfluenza 4 (PCR) RSV (PCR) Entero/Rhino (PCR) SARS-CoV-2 RNA (LEON) Negative [place]/B-Vanco Res Genes Bld Cult ID Panel PCR 04/18/23 04/19/23 04/19/23 21:09 07:49 11:38 WBC RBC Hgb Hct MCV MCH MCHC RDW Std Deviation RDW Coeff of Adrian Plt Count MPV Immature Gran % (Auto) Neut % (Auto) Lymph % (Auto) [place] % (Auto) Eos % (Auto) Baso % (Auto) Neut # (Auto) Lymph # (Auto) [place] # (Auto) Eos # (Auto) Baso # (Auto) Immature Gran # (Auto) PT INR APTT PTT Ratio VBG pH VBG pCO2 VBG pO2 VBG HCO3 VBG O2 Saturation VBG Base Excess Sodium Potassium Chloride Carbon Dioxide Anion Gap BUN Creatinine Est Cr Clr Drug Dosing Est GFR ( Amer) Est GFR (Non-Af Amer) BUN/Creatinine Ratio Glucose POC Glucose 127 H 100 H 121 H Lactate Calcium Phosphorus Magnesium Iron TIBC Unsaturated IBC Transferrin % Sat Ferritin Total Bilirubin Direct Bilirubin AST ALT Alkaline Phosphatase Troponin I High Sens Total Protein Albumin Globulin Albumin/Globulin Ratio Procalcitonin Urine Color Urine Appearance Urine pH Ur Specific [place] Urine Protein Urine Glucose (UA) Urine Ketones Urine Blood Urine Nitrite Urine Bilirubin Urine Urobilinogen Ur Leukocyte Esterase Urine WBC (Auto) Urine RBC (Auto) U Hyaline Cast (Auto) U Epithel Cells (Auto) Urine Bacteria (Auto) Ur Renal Epithelial Cell Granular Casts Urine Yeast Urine Sperm Ur Random Creatinine Ur Random Sodium Complement C3 Complement C4 Tot Complement (CH50) Adenovirus (PCR) B. pertussis DNA (PCR) B.parapertussis DNA PCR C. pneumoniae DNA (PCR) Coronavirus OC43 (PCR) Coronavirus HKU1 (PCR) Coronavirus 229E (PCR) SARS-CoV-2 (PCR) Coronavirus NL63 (PCR) Enterococc faecalis PCR Human Metapneumovir PCR Influenza Type A (PCR) Influenza Type B (PCR) M. pneumoniae (PCR) Parainfluenza 1 (PCR) Parainfluenza 2 (PCR) Parainfluenza 3 (PCR) Parainfluenza 4 (PCR) RSV (PCR) Entero/Rhino (PCR) SARS-CoV-2 RNA (LEON) Eleno/B-Vanco Res Genes Bld Cult ID Panel PCR 04/19/23 04/19/23 04/20/23 16:44 20:50 08:01 WBC RBC Hgb Hct MCV MCH MCHC RDW Std Deviation RDW Coeff of Adrian Plt Count MPV Immature Gran % (Auto) Neut % (Auto) Lymph % (Auto) [place] % (Auto) Eos % (Auto) Baso % (Auto) Neut # (Auto) Lymph # (Auto) [place] # (Auto) Eos # (Auto) Baso # (Auto) Immature Gran # (Auto) PT INR APTT PTT Ratio VBG pH VBG pCO2 VBG pO2 VBG HCO3 VBG O2 Saturation VBG Base Excess Sodium Potassium Chloride Carbon Dioxide Anion Gap BUN Creatinine Est Cr Clr Drug Dosing Est GFR ( Amer) Est GFR (Non-Af Amer) BUN/Creatinine Ratio Glucose POC Glucose 123 H 97 92 Lactate Calcium Phosphorus Magnesium Iron TIBC Unsaturated IBC Transferrin % Sat Ferritin Total Bilirubin Direct Bilirubin AST ALT Alkaline Phosphatase Troponin I High Sens Total Protein Albumin Globulin Albumin/Globulin Ratio Procalcitonin Urine Color Urine Appearance Urine pH Ur Specific [place] Urine Protein Urine Glucose (UA) Urine Ketones Urine Blood Urine Nitrite Urine Bilirubin Urine Urobilinogen Ur Leukocyte Esterase Urine WBC (Auto) Urine RBC (Auto) U Hyaline Cast (Auto) U Epithel Cells (Auto) Urine Bacteria (Auto) Ur Renal Epithelial Cell Granular Casts Urine Yeast Urine Sperm Ur Random Creatinine Ur Random Sodium Complement C3 Complement C4 Tot Complement (CH50) Adenovirus (PCR) B. pertussis DNA (PCR) B.parapertussis DNA PCR C. pneumoniae DNA (PCR) Coronavirus OC43 (PCR) Coronavirus HKU1 (PCR) Coronavirus 229E (PCR) SARS-CoV-2 (PCR) Coronavirus NL63 (PCR) Enterococc faecalis PCR Human Metapneumovir PCR Influenza Type A (PCR) Influenza Type B (PCR) M. pneumoniae (PCR) Parainfluenza 1 (PCR) Parainfluenza 2 (PCR) Parainfluenza 3 (PCR) Parainfluenza 4 (PCR) RSV (PCR) Entero/Rhino (PCR) SARS-CoV-2 RNA (LEON) [place]/B-Vanco Res Genes Bld Cult ID Panel PCR 04/20/23 04/20/23 04/20/23 08:50 11:26 16:40 WBC RBC Hgb Hct MCV MCH MCHC RDW Std Deviation RDW Coeff of Adrian Plt Count MPV Immature Gran % (Auto) Neut % (Auto) Lymph % (Auto) [place] % (Auto) Eos % (Auto) Baso % (Auto) Neut # (Auto) Lymph # (Auto) [place] # (Auto) Eos # (Auto) Baso # (Auto) Immature Gran # (Auto) PT INR APTT PTT Ratio VBG pH VBG pCO2 VBG pO2 VBG HCO3 VBG O2 Saturation VBG Base Excess Sodium 143 Potassium 3.5 Chloride 113 H Carbon Dioxide 19 L Anion Gap 11 BUN 54 H Creatinine 5.38 H* Est Cr Clr Drug Dosing 9.0 Est GFR ( Amer) 10.2 Est GFR (Non-Af Amer) 8.8 BUN/Creatinine Ratio 10.0 Glucose 134 H POC Glucose 162 H 152 H Lactate Calcium 7.5 L Phosphorus Magnesium Iron TIBC Unsaturated IBC Transferrin % Sat Ferritin Total Bilirubin Direct Bilirubin AST ALT Alkaline Phosphatase Troponin I High Sens Total Protein Albumin Globulin Albumin/Globulin Ratio Procalcitonin Urine Color Urine Appearance Urine pH Ur Specific [place] Urine Protein Urine Glucose (UA) Urine Ketones Urine Blood Urine Nitrite Urine Bilirubin Urine Urobilinogen Ur Leukocyte Esterase Urine WBC (Auto) Urine RBC (Auto) U Hyaline Cast (Auto) U Epithel Cells (Auto) Urine Bacteria (Auto) Ur Renal Epithelial Cell Granular Casts Urine Yeast Urine Sperm Ur Random Creatinine Ur Random Sodium Complement C3 Complement C4 Tot Complement (CH50) Adenovirus (PCR) B. pertussis DNA (PCR) B.parapertussis DNA PCR C. pneumoniae DNA (PCR) Coronavirus OC43 (PCR) Coronavirus HKU1 (PCR) Coronavirus 229E (PCR) SARS-CoV-2 (PCR) Coronavirus NL63 (PCR) Enterococc faecalis PCR Human Metapneumovir PCR Influenza Type A (PCR) Influenza Type B (PCR) M. pneumoniae (PCR) Parainfluenza 1 (PCR) Parainfluenza 2 (PCR) Parainfluenza 3 (PCR) Parainfluenza 4 (PCR) RSV (PCR) Entero/Rhino (PCR) SARS-CoV-2 RNA (LEON) [place]/B-Vanco Res Genes Bld Cult ID Panel PCR 04/20/23 04/21/23 04/21/23 20:31 05:36 07:20 WBC RBC Hgb Hct MCV MCH MCHC RDW Std Deviation RDW Coeff of Adrian Plt Count MPV Immature Gran % (Auto) Neut % (Auto) Lymph % (Auto) [place] % (Auto) Eos % (Auto) Baso % (Auto) Neut # (Auto) Lymph # (Auto) [place] # (Auto) Eos # (Auto) Baso # (Auto) Immature Gran # (Auto) PT INR APTT PTT Ratio VBG pH VBG pCO2 VBG pO2 VBG HCO3 VBG O2 Saturation VBG Base Excess Sodium 143 Potassium 3.6 Chloride 113 H Carbon Dioxide 20 L Anion Gap 10 BUN 53 H Creatinine 5.40 H* Est Cr Clr Drug Dosing 9.0 Est GFR ( Amer) 10.2 Est GFR (Non-Af Amer) 8.8 BUN/Creatinine Ratio 9.8 L Glucose 103 H POC Glucose 109 H 113 H Lactate Calcium 7.4 L Phosphorus Magnesium Iron TIBC Unsaturated IBC Transferrin % Sat Ferritin Total Bilirubin Direct Bilirubin AST ALT Alkaline Phosphatase Troponin I High Sens Total Protein Albumin Globulin Albumin/Globulin Ratio Procalcitonin Urine Color Urine Appearance Urine pH Ur Specific [place] Urine Protein Urine Glucose (UA) Urine Ketones Urine Blood Urine Nitrite Urine Bilirubin Urine Urobilinogen Ur Leukocyte Esterase Urine WBC (Auto) Urine RBC (Auto) U Hyaline Cast (Auto) U Epithel Cells (Auto) Urine Bacteria (Auto) Ur Renal Epithelial Cell Granular Casts Urine Yeast Urine Sperm Ur Random Creatinine Ur Random Sodium Complement C3 Complement C4 Tot Complement (CH50) Adenovirus (PCR) B. pertussis DNA (PCR) B.parapertussis DNA PCR C. pneumoniae DNA (PCR) Coronavirus OC43 (PCR) Coronavirus HKU1 (PCR) Coronavirus 229E (PCR) SARS-CoV-2 (PCR) Coronavirus NL63 (PCR) Enterococc faecalis PCR Human Metapneumovir PCR Influenza Type A (PCR) Influenza Type B (PCR) M. pneumoniae (PCR) Parainfluenza 1 (PCR) Parainfluenza 2 (PCR) Parainfluenza 3 (PCR) Parainfluenza 4 (PCR) RSV (PCR) Entero/Rhino (PCR) SARS-CoV-2 RNA (LEON) [place]/B-Vanco Res Genes Bld Cult ID Panel PCR 04/21/23 11:28 WBC RBC Hgb Hct MCV MCH MCHC RDW Std Deviation RDW Coeff of Adrian Plt Count MPV Immature Gran % (Auto) Neut % (Auto) Lymph % (Auto) [place] % (Auto) Eos % (Auto) Baso % (Auto) Neut # (Auto) Lymph # (Auto) [place] # (Auto) Eos # (Auto) Baso # (Auto) Immature Gran # (Auto) PT INR APTT PTT Ratio VBG pH VBG pCO2 VBG pO2 VBG HCO3 VBG O2 Saturation VBG Base Excess Sodium Potassium Chloride Carbon Dioxide Anion Gap BUN Creatinine Est Cr Clr Drug Dosing Est GFR ( Amer) Est GFR (Non-Af Amer) BUN/Creatinine Ratio Glucose POC Glucose 155 H Lactate Calcium Phosphorus Magnesium Iron TIBC Unsaturated IBC Transferrin % Sat Ferritin Total Bilirubin Direct Bilirubin AST ALT Alkaline Phosphatase Troponin I High Sens Total Protein Albumin Globulin Albumin/Globulin Ratio Procalcitonin Urine Color Urine Appearance Urine pH Ur Specific [place] Urine Protein Urine Glucose (UA) Urine Ketones Urine Blood Urine Nitrite Urine Bilirubin Urine Urobilinogen Ur Leukocyte Esterase Urine WBC (Auto) Urine RBC (Auto) U Hyaline Cast (Auto) U Epithel Cells (Auto) Urine Bacteria (Auto) Ur Renal Epithelial Cell Granular Casts Urine Yeast Urine Sperm Ur Random Creatinine Ur Random Sodium Complement C3 Complement C4 Tot Complement (CH50) Adenovirus (PCR) B. pertussis DNA (PCR) B.parapertussis DNA PCR C. pneumoniae DNA (PCR) Coronavirus OC43 (PCR) Coronavirus HKU1 (PCR) Coronavirus 229E (PCR) SARS-CoV-2 (PCR) Coronavirus NL63 (PCR) Enterococc faecalis PCR Human Metapneumovir PCR Influenza Type A (PCR) Influenza Type B (PCR) M. pneumoniae (PCR) Parainfluenza 1 (PCR) Parainfluenza 2 (PCR) Parainfluenza 3 (PCR) Parainfluenza 4 (PCR) RSV (PCR) Entero/Rhino (PCR) SARS-CoV-2 RNA (LEON) [place]/B-Vanco Res Genes Bld Cult ID Panel PCR 03/19/23 00:44 CT head/brain wo con Stat 03/25/23 12:35 US Renal Bladder [US renal/blad retro comp] Routine 03/25/23 15:39 US venous doppler LE BI Routine Hospital Course (1) Hypotension: (2) Elevated troponin I level: (3) Recurrent bacteremia: (4) Anxiety: (5) Anemia of chronic disease: (6) Chronic kidney disease, stage 4 (severe): (7) Acute kidney injury superimposed on CKD: (8) Moderate calcific aortic stenosis: (9) Peripheral vascular disease: (10) Lower extremity edema: (11) Benign prostatic hyperplasia with urinary obstruction: (12) COPD (chronic obstructive pulmonary disease): (13) Hypothyroidism: (14) Hypertension: (15) Dyslipidemia: (16) Paroxysmal atrial fibrillation: (17) Vitamin D deficiency: (18) CAD (coronary artery disease): (19) GERD (gastroesophageal reflux disease): (20) CHF (congestive heart failure): (21) Diabetes: (22) Hypokalemia: Plan 87 yo male with PMHx of CKD Stage 4 (previous admission with JUDI requiring temporary dialysis), DVT, T2DM insulin dependent, HTN, hypothyroidism, AFib, CAD, BPH, GERD, recurrent bacteremia, aortic stenosis, anxiety, and CHF who presents with unwitnessed fall with concomitant bowel/bladder incontinence and associated hypotension. POLST form was discussed with pt and . Copy on the chart. Recurrent E.Faecalis Bacteremia -Patient with history of E faecalis bacteremia in past, blood cx + for Enterococcus Faecalis with repeat cx on 03/22 and 03/25 negative, -TTE negative for vegetations, ID noting foot xray negative for osteo of the 2nd digit; could consider MRI; pt and decline at this time -Id consulted during stay, recommended longer treatment of ABX: -Ampicillin 2 grams BID until 05/03/2023 -Patient would benefit for outpatient ID, may need abx suppressive therapy -Repeat Cx 1-2 weeks after finishing ABxs Unstageable pressure injury on coccyx -Wound care and daily change is needed to prevent progression as well change position on bed every couple of hours. -waffle boots -daily change and as needed - Aquacel silver dressing allergy, avoid JUDI on CKD stage 4 | Suspected ATN | hypokalemia | hypocalcemia -New baseline 3~ peak this admission 5.92 -Elevation in creatinine prerenal, likely secondary to dehydration -pt decline dialysis during admission -Important to keep hydration more that 60oz daily -Hold Bumex, use only with pulmonary edema Chronic HFpEF | Aortic stenosis | Peripheral edema | CAD/PVD/HLD | Afib -cont. metoprolol; Eliquis -cont. statin -cont. ASA, statin -leg elevation, compression socks DM2 -Lantus + SSI Diabetic neuropathy -cont. gabapentin COPD -cont. home inhalers Anxiety -cont. clonazepam BPH -cont. finasteride, tamsulosin Total Time Total Time Spent Total Time Spent (In Minutes): see attending attestation Discharge Plan Discharge Items Patient Disposition: Transfer Detention Fac Reason For Visit: HYPOTENSION Discharge Diagnosis: 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 CDK stage 4 Activity: Per Instructions section Non-emergency contact: Primary Care Provider Call non-emergency contact if: you have any medication questions Follow-up/Referrals: Cory Nunez, [Primary Care Provider] - Diet: Carb Consistent or DM2 Addtl Attending Provider Instructions: 87 yo male with PMHx of CKD Stage 4 (previous admission with JUDI requiring temporary dialysis), DVT, T2DM insulin dependent, HTN, hypothyroidism, AFib, CAD, BPH, GERD, recurrent bacteremia, aortic stenosis, anxiety, and CHF who presents with unwitnessed fall with concomitant bowel/bladder incontinence and associated hypotension. POLST form was discussed with pt and . Copy on the chart. Recurrent E.Faecalis Bacteremia -Patient with history of E faecalis bacteremia in past, blood cx + for Enterococcus Faecalis with repeat cx on 03/22 and 03/25 negative, -TTE negative for vegetations, ID noting foot xray negative for osteo of the 2nd digit; could consider MRI; pt and decline at this time -Id consulted during stay, recommended longer treatment of ABX: -Ampicillin 2 grams BID until 05/03/2023 -Patient would benefit for outpatient ID, may need abx suppressive therapy -Repeat Cx 1-2 weeks after finishing ABxs Unstageable pressure injury on coccyx -Wound care and daily change is needed to prevent progression as well change position on bed every couple of hours. -waffle boots -daily change and as needed - Aquacel silver dressing allergy, avoid JUDI on CKD stage 4 | Suspected ATN | hypokalemia | hypocalcemia -New baseline 3~ peak this admission 5.92 -Elevation in creatinine prerenal, likely secondary to dehydration -pt decline dialysis during admission -Hypokalemia resolved -Important to keep hydration more that 60oz daily -Hold Bumex, use only with pulmonary edema Chronic HFpEF | Aortic stenosis | Peripheral edema | CAD/PVD/HLD | Afib -cont. metoprolol; Eliquis -cont. statin -cont. ASA, statin -leg elevation, compression socks DM2 -Lantus + SSI Diabetic neuropathy -cont. gabapentin COPD -cont. home inhalers Anxiety -cont. clonazepam BPH -cont. finasteride, tamsulosin Pending Studies at Discharge: No Stand-Alone Forms: My [facility] Skilled Items Patient informed of condition?: Yes DNR: Yes Discharge Level of Care: Skilled Communicable Disease: No Discharge Prognosis: Stable Lines: PICC Urinary Catheter: No Medications and DC Order Prescriptions: New ampicillin sodium 2 gram recon soln 2 g IV Q12H 12 Days Eliquis 2.5 mg tablet 2.5 mg PO BID 30 Days Qty: 60 0RF miconazole nitrate [Desenex] 2 % Powder 1 applic EXT BID 30 Days Qty: 85 0RF Continued clonazepam 1 mg tablet 1 mg PO BID 30 Days Qty: 60 0RF aspirin 81 mg Tablet,Delayed Release (Dr/Ec) 81 mg PO DAILY 30 Days Qty: 30 0RF levothyroxine 88 mcg tablet 75 mcg PO DAILYBB 30 Days Qty: 90 0RF tamsulosin [Flomax] 0.4 mg Capsule 0.8 mg PO HS 30 Days Qty: 60 0RF fluticasone propion-salmeterol 500-50 mcg/dose Blister With Device 1 inh INHALATION BID 30 Days Qty: 60 0RF metoprolol tartrate 50 mg Tablet 25 mg PO BID 30 Days Qty: 60 0RF gabapentin 100 mg Capsule See Rx Instructions .ROUTE .COMPLEX 30 Days Qty: 30 0RF Rx Instructions: 100 mg orally; TAKE 100 MG QAM, THEN 300 MG QPM. multivitamin with minerals Tablet 1 tab PO DAILY 30 Days Qty: 30 0RF albuterol sulfate 90 mcg/actuation HFA aerosol inhaler 2 puffs inhalation Q6H PRN (Reason: shortness of breath or wheezing) 30 Days Qty: 8.5 0RF finasteride 5 mg tablet 5 mg PO HS 30 Days Qty: 30 0RF loratadine [Claritin] 10 mg Tablet 10 mg PO DAILY PRN (Reason: Congestion) 30 Days Qty: 30 0RF rosuvastatin 20 mg Tablet 20 mg PO HS 30 Days Qty: 30 0RF calcium citrate-vitamin D3 [Calcium Citrate + D] 315 mg-5 mcg (200 unit) Tablet 2 tab PO DAILY 30 Days Qty: 60 0RF insulin glargine [Lantus Solostar U-100 Insulin] 100 unit/mL (3 mL) Insulin Pen 26 unit SUBCUT BID 30 Days Qty: 15.6 0RF PreserVision AREDS 2,148 mcg-113 mg-45 mg-17.4mg Tablet 1 tab PO DAILY 30 Days Qty: 30 0RF tiotropium bromide 2.5 mcg/actuation Mist 2 puff INHALATION DAILY Qty: 4 0RF potassium chloride 20 mEq tablet extended release 20 meq PO BID 30 Days Qty: 60 0RF Rx Instructions: TAKE THIS MED WHEN TAKING BUMETANIDE. DO NOT TAKE THIS MED IF NOT TAKING BUMETANIDE. acetaminophen [Tylenol Extra Strength] 500 mg Tablet 1,000 mg PO Q6H PRN (Reason: PAIN/FEVER) Changed pantoprazole 20 mg tablet,delayed release (DR/EC) 30 mg PO BID 30 Days Qty: 90 0RF insulin aspart U-100 [Novolog U-100 Insulin aspart] 100 unit/mL solution 14 unit subcut TIDWMEAL 30 Days Qty: 12.6 0RF Rx Instructions: - Goal BSG range; 110-140 - Correction factor 45mg/dL/unit - BSGs ACHS Discontinued Eliquis 5 mg Tablet 2.5 mg PO Q12H Discharge Orders: Discharge Order (Routine); Ordered 04/21/23 Ordered By: Bethanie Hernández Admission Data Admit Date/Time: 03/19/23 00:15 Attending Provider: Alexandru Harrell Admit Provider: Bon Brown Primary Care Provider: Cory Nunez Other Providers: [facility]; Arlen Gaitan; Alisa Flowers; Patrick Michaels; Rianna Horowitz; Lauren Berman; Latasha Franco; Sanam Manzano; Tess Dutton; Constantino Hanson; Ann Conroy; Joycelyn Nunez; Jese Gaitan; Je Zavaleta; Priscilla Garcia; Zoila Espinoza; Cory Nunez; [facility],; Alexandru Harrell; [facility]; [place]; [place]; Cyndi Grimm Other Interventions: Discharge Summary Assessment (RN) Last Done: 04/21/23 14:43 Resident Activity Tracking Resident Involvement: Resident Care Provided Care Provided: Adult [facility] Medicine"
== END 2023-04-21 16:55 | DRG 871 ==
LOC: ED 19:38 → 2S 03-19 00:15 → SUATTDRO 03-19 00:15 → 2S 03-19 01:01 → 3N 03-24 22:41 → 3E 04-17 13:49